=== PATIENT | female | born 1970 | race Caucasian/White ===

== ENCOUNTER 2022-02-26 11:50 | Outpatient (CLI) | payer MEDICAID, SELFPAY ==
[2022-02-26 15:59] LABS: Thyroid Stimulating Hormone* < 0.015 uIU/mL (0.270-4.20)
[2022-02-26 16:02] LABS: Vitamin B12* 525 pg/mL (243-894)
[2022-02-27 08:52] LABS: Folate, Serum > 22.3 ng/mL (>=5.9)
[2022-02-27 09:54] LABS: Free T3 3.8 pg/mL (2.5-4.3)
== END 2022-02-26 11:51 | disposition home or self-care (01) ==
PROVIDERS: PCP Family Medicine
DX: D49.6 Neoplasm of unspecified behavior of brain (principal); E05.90 Thyrotoxicosis, unspecified without thyrotoxic crisis or storm; R47.01 Aphasia
CPT/HCPCS: 82607; 82746; 84439; 84443; 84481; 85025

== ENCOUNTER 2022-03-04 19:04 | Outpatient (REF) | payer MEDICAID, SELFPAY ==
[2022-03-04 19:39] LABS: Eosinophils Percent Auto 2.5 % (0.0-7.0); Hematocrit 38.1 % (33.0-51.0); Hemoglobin* 12.3 gm/dL (12.0-16.0); Lymphocytes Percent Auto 32.8 % (20-44); Mean Corpuscular HGB Conc 32 gm/dL (32-36); Mean Corpuscular Hemoglobin 29 pg (26-34); Mean Corpuscular Volume 88 fL (80-100); Monocytes Percent Auto 7.8 % (0.0-11.0); Neutrophils Percent Auto 55.9 % (42.0-72.0); Platelet Count* 346 K/uL (140-440); RDW Coefficient of Variation % 13.1 % (11.5-15.5); Red Blood Count 4.32 m/uL (4.00-5.20)
[2022-03-04 19:47] LABS: Slide Review Reflex No
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
--- OUTSIDE RECORDS SUMMARY | 2022-03-12 14:29 | XMS_ITS | Encounter Summary ---
:1970 Author Organization [facility] Address [address] [place] [address] Care Team Providers Name Role Phone Unavailable Primary Care Provider Unavailable Reason for Referral Outpatient (Routine) - Closed Specialty Diagnoses / Procedures Referred By Contact Refer red To Contact Social Work Diagnoses Malignant Neoplasm Of Brain (HCC) Stephanie Gleason M.D. [address] [phone] Referral ID Status Reason Start Date Expiration Date Visits Requ ested Visits Authorized [id number] Closed 02/27/2022 02/27/2023 1 1 Scheduling Instructions Schedule with Belia Amezquita tomorrow. Thanks! Reason for Visit Outpatient (Routine) - Closed Specialty Diagnoses / Procedures Referred By Contact Refer red To Contact Social Work Diagnoses Malignant Neoplasm Of Brain (HCC) Stephanie Gleason M.D. [address] [phone] Referral ID Status Reason Start Date Expiration Date Visits Requ ested Visits Authorized [id number] Closed 02/27/2022 02/27/2023 1 1 Encounter Details Date Type Department Care Team Description 02/28/2022 Hospital Encounter Department of Luis Armando Gleason M.D. [address] [place] [phone] Malignant Neoplasm Radiation Oncology Belia Amezquita L.I.C.S.W., M.S.W. 200 [place] [phone] Of Brain (HCC) in [place], [place] 200 [place] [address] Social History Tobacco Use Types Packs/Day Years [...] or relatives? How often do you attend gnosticist or More than 4 times per year 01/07/2022 church services? Do you belong to any clubs or No 01/07/2022 organizations such as gnosticist groups, unions, fraternal or athletic groups, or [...] place to sleep or slept in a senior care (including now)? Education Answer Date Recorded What is the highest level of school Master's degree (e.g., M A, MS, 01/07/2022 you have completed or the highest Maulik, MEd, GAS EXAMINER, 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 Sex Assigned at Date Recorded Female 01/07/2022 11:11 AM CDT documented as of this encounter Progress Notes Belia Amezquita L.I.C.S.W., M.S.W. - 02/28/2022 9:00 AM CDT Social Work completed a phone call to the patient to talk with her about her insurance and additional financial resources that would assist in decreasing financial toxicity. The patient confirm she was able to get medical assistance in place as her primary insurance as of 02/22/2022. She reports [facility] social workers will be discussing today if this effective date will go back 3 months and assist with additional medical bills back to November. Discussion took place about past medical care received another medical institutions. The patient reflects she received care in up to 3 additional institutions and recommendations were made to contact those institutions and provide them her medical assistance insurance number for Re coding and the billing and hopes to decrease financial toxicity and burden. Discussion took place about communication with [facility] to assist with navigating benefits forout of [facility] travel and appointments and benefits that come with her new insurance including mileage reimbursement, meal reimbursement, and lodging benefits. Social work also discussed the potential for transportation benefits if patient is unable to drive. Patient reflects and discusses current vision impairment and obstacles. She reports she is having additional appointments added to her scheduledue to the change in her TSH level and her vision. She admits to feeling overwhelmed and has assistance from a partner and her mother through formal resources and caregiving support. She is working with occupational therapy to assist with her vision. She would like to have social work send contact information via portal for future communication and contact. Social Work communicated updates with primary radiation Oncology team and social Work. Care coordination will be ongoing. documented in this encounter Plan of Treatment Upcoming Encounters Date Type Specialty Care Team Description 03/12/2022 Appointment Radiation Oncology Stephanie Gleason M.D. [address] [place] [phone] 03/12/2022 Appointment Radiation Oncology Stephanie Gleason M.D. [address] [place] [phone] 03/13/2022 Appointment Radiation Oncology Stephanie Gleason M.D. [address] [place] [phone] 03/14/2022 Appointment Radiation Oncology Stephanie Gleason M.D. [address] [place] [phone] 03/25/2022 Ancillary Procedure Ophthalmology Chas Shin M.D. [address] [place] [phone] 03/25/2022 Ancillary Procedure Ophthalmology 03/25/2022 Ancillary Procedure Ophthalmology Chas Shin M.D. [address] [place] [phone] 03/26/2022 Ancillary Procedure Ophthalmology Rebeca Valle, Tu.A.-C., M.S. [address] [place] [phone] 03/26/2022 Comprehensive Visit Ophthalmology Chas Shin M.D. [address] [place] [phone] 03/29/2022 Comprehensive Visit Endocrinology Farzana Allen M.D. [address] [place] [phone] 04/04/2022 Appointment Radiology Christina Tai P.A.-C., M.S. [address] [place] [phone] 04/04/2022 Office Visit Oncology Vini Maki M.D., Ph.D. [address] [place] [phone] 04/04/2022 Office Visit Neurological Surgery Charles Ivey M.D., Ph.D. [address] [place] [address] [phone] 05/03/2022 Comprehensive Visit Clinical Genomics Sanya Mehta M.D. [address] [place] [phone] 05/06/2022 Clinical Communication Admitting/Central Scheduling 05/09/2022 Office Visit Oncology Farzana Allen M.D. [address] [place] [phone] Scheduled Referrals Name Type Priority Associated Order Schedule Diagnoses Social Work - Outpatient Referral Routine Malignant Neoplasm O nce for 1 General consult Of Brain (HCC) Occurrence s starting (clinic) 02/28/2022 unti l 02/28/2022 documented as of this encounter Visit Diagnoses Diagnosis Malignant Neoplasm Of Brain (HCC) documented in this encounter
--- OUTSIDE RECORDS SUMMARY | 2022-03-12 14:29 | XMS_ITS | Encounter Summary ---
:1970 Author Organization [facility] Address [address] [place] [address] Care Team Providers Name Role Phone Unavailable Primary Care Provider Unavailable Reason for Visit Radiation Therapy (Routine) - Authorized Specialty Diagnoses / Procedures Referred By Contact Refer red To Contact Diagnoses Malignant Neoplasm Of Brain (HCC) Stephanie Gleason M.D. [facility] Radiation Oncology Procedures Prior Auth Rad Tx [place] [facility] [address] [place] [phone] [place] [address] Referral ID Status Reason Start Date Expiration Date Visits V isits Requested Authorized [id number] Authorized 01/31/2022 12/31/2022 30 30 Encounter Details Date Type Department Care Team Description 03/04/2022 Hospital Encounter Department of Radiation Jacquelyn Gleason I., [place] [address] [facility] [address] [place] [phone] Social History Tobacco Use Types Packs/Day Years [...] or relatives? How often do you attend mu-ism or More than 4 times per year 01/07/2022 scientology services? Do you belong to any clubs or No 01/07/2022 organizations such as mu-ism groups, unions, fraternal or athletic groups, or [...] place to sleep or slept in a long term (including now)? Education Answer Date Recorded What is the highest level of school Master's degree (e.g., [address], MS, 01/07/2022 you have completed or the highest Maulik, MEd, LITIGATION ASSISTANT, 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 Sex Assigned at Date Recorded Female 01/07/2022 11:11 AM CDT documented as of this encounter Plan of Treatment Upcoming Encounters Date Type Specialty Care Team Description 03/12/2022 Appointment Radiation Oncology Stephanie Gleason M.D. 200 [place] [phone] 03/12/2022 Appointment Radiation Oncology Stephanie Gleason M.D. [address] [place] [phone] 03/13/2022 Appointment Radiation Oncology Stephanie Gleason M.D. [address] [place] [phone] 03/14/2022 Appointment Radiation Oncology Stephanie Gleason M.D. [address] [place] [phone] 03/25/2022 Ancillary Procedure Ophthalmology Chas Shin M.D. [address] [place] [phone] 03/25/2022 Ancillary Procedure Ophthalmology 03/25/2022 Ancillary Procedure Ophthalmology Chas Shin M.D. [address] [place] [phone] 03/26/2022 Ancillary Procedure Ophthalmology Rebeca Valle P.A.-Rusty., M.S. [address] [place] [phone] 03/26/2022 Comprehensive Visit Ophthalmology Chas Shin M.D. [address] [place] [address] [phone] 03/29/2022 Comprehensive Visit Endocrinology Farzana Allen M.D. [address] [place] [phone] 04/04/2022 Appointment Radiology Christina Tai P.A.-Rusty., M.S. [address] [place] [phone] 04/04/2022 Office Visit Oncology Vini Maki M.D., Ph.D. [address] [place] [phone] 04/04/2022 Office Visit Neurological Surgery Charles Ivey M.D., Ph.D. [address] [place] [phone] 05/03/2022 Comprehensive Visit Clinical Genomics Sanya Mehta M.D. [address] [place] [phone] 05/06/2022 Clinical Communication Admitting/Central Scheduling 05/09/2022 Office Visit Oncology Farzana Allen M.D. [address] [place] [phone] documented as of this encounter Visit Diagnoses Not on filedocumented in this encounter
--- OUTSIDE RECORDS SUMMARY | 2022-03-12 14:29 | XMS_ITS | Encounter Summary ---
:1970 Author Organization [facility] Address [address] [place] [address] Care Team Providers Name Role Phone Unavailable Primary Care Provider Unavailable Encounter Details Date Type Department Care Team Description 02/28/2022 Specialty Pharmacy [facility] Carmen Black, Malignant Neoplasm [address] Pharm.D., R.P h. Of Brain (HCC) [address] [facility] (Primary Dx) [place] [phone] Social History Tobacco Use Types Packs/Day Years [...] or relatives? How often do you attend jewish or More than 4 times per year 01/07/2022 hoahaoism services? Do you belong to any clubs or No 01/07/2022 organizations such as jewish groups, unions, fraternal or athletic groups, or [...] place to sleep or slept in a prison (including now)? Education Answer Date Recorded What is the highest level of school Master's degree (e.g., M A, MS, 01/07/2022 you have completed or the highest Maulik, MEd, MANAGER UNDERWRITING, 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 Sex Assigned at Date Recorded Female 01/07/2022 11:11 AM CDT documented as of this encounter Miscellaneous Notes Telephone Encounter - Carmen Black, Pharm.D., R.Ph. - 02/28/2022 5:09 PM CDT SUBJECTIVE REASON FOR VISIT Patient counseling and education, via telephone, for new hematology/oncology medication therapy and establishing medication reassessment timeline. HISTORY OF PRESENT ILLNESS Ms. Mia Richardson is a 51 y.o. female, who is followed by the specialty pharmacy service for Temozolomide for glioblastoma. I spoke with patient via phone. Patient has been on Temozolomide prior but had interruption in therapy due to insurance and decreased cell counts. Reviewed patient's allergies. Allergies Allergen Reactions ??? Adhesive Tape-Silicones Itching ??? Lactose Rash Intolerance Patient reports she has an allergy to milk-related compounds. An updated medication history was obtained from the patient. Noted discrepancies from patient's medication record include the following: -DENIES taking gabapentin -DENIES taking multivitamin -DENIES taking aspirin at this time, as well as vitamin B complex and prochlorperazine Patient baseline rating for quality of life: unable to obtain. OBJECTIVE Lab Results Component Value Date CREATININE 0.7 01/28/2022 ASSESSMENT / PLAN 1. Medication counseling I counseled the patient via phone. Education related to medication: Temozolomide ??? Proper use: we discussed the patient???s dose and the importance of taking it on an empty stomach and/or at bedtime to reduce the chance of nausea/vomiting. Assessed if patient has an anti-nausea medications available to them and when to take, and if PCP prophylaxis is needed. Do not repeat dose if vomiting occurs after dose is administered ??? Timely administration/intake: suggestions to improve adherence- smartphone applications/calendar. ??? Storage: room temperature, no special considerations. ??? Side effects: Including, but not limited to: Nausea, vomiting, constipation, fatigue, headache, hair thinning/loss. ??? Advised patient that other warnings/ safety precautions exist: (decreased blood counts, liver toxicity, convulsions, secondary cancers and a type of pneumonia. Capsules should not be opened. If capsules are opened or damaged, precautions should be taken to avoid inhalation or contact with skin or mucous membranes. ) ??? Lifestyle and self-management skills/ Tips to prevent adverse drug reactions: Report infections for early management including a temperature of 100.4F or greater. Avoid the use of aspirin or NSAIDs particularly if low platelets. Keep lab appointments. Planned rest times and exercise may help to combat fatigue. ??? Interactions (drug/food interactions): Drug interactions referenced in #2 below. Avoid live vaccines. Food: Take on an empty stomach and/or at bedtime to reduce the chance of nausea/vomiting. ??? Contraindications/ considerations: This medication may cause harm. Women who canbecome should use effective contraception while on this medication and for 6 months after stopping. Men with a partner that may become should use effective contraception while on this medication and for 3 months after the last temozolomide dose. May impair male fertility. ??? Educational resource/decision support tools: Printed medication materials included with the prescription. Also see [facility]. Patient/caregiver counseling was abreviated because the patient has been on this medication for sometime already (via study or other pharmacy). The above educational information available at patient/caregiver request. They were advised to contact the prescriber concerning symptoms or side effects as m entioned above. The importance of adherence to the treatment plan was emphasized in regard to success of therapy. Allergy, past sensitivity, medication and health history considered at veterans' counselor (renal function if available). To optimize outcomes, patient assessed for the need of other possible supportive therapies and informed of importance of proper monitoring and future reassessment. The patient/caregiver's prior education on this new therapy and disease specific knowledge were assessed with counseling and education tailored to this level of understanding. Tapia concerns and questions were addressed. Patient specific considerations/desires:None noted at this time. Education done via phone and printed medication materials included with the prescription. The patient/caregiver was encouraged to ask questions or to call the specialty pharmacy with questions they mayhave after reviewing printed material. Specialty pharmacy contact information and disposal information provided in the patient 'Welcome Packet'. No social, environmental, functional or cognitive barriers are apparent. Patient is eligible for service through [facility]. 2. Potential drug-drug interactions No clinically significant drug interactions were identified with Temozolomide. Specialty medication(s) reconciled and good triston attempt made in obtaining a complete medication list (via dispensing program). Patient encouraged to report any new or change of medications (prescribed/over the counter/supplements) to assist in maintaining this list for accuracy. 3. Goals of therapy: Promote medication adherence. Evaluate other newly prescribed therapies as needed for drug-drug and drug- disease appropriateness. Mitigate, treat or prevent side effects. The patient has decided to use the [facility]. This patient meets the definition of *HIGH RISK- required BSA dose review and required counseling for any temozolomide dose changes*, by [facility] definition and has been flagged as such in the dispensing system. Follow-up: 4 week(s) Carmen Black Pharm.D., R.Ph. documented in this encounter Plan of Treatment Upcoming Encounters Date Type Specialty Care Team Description 03/12/2022 Appointment Radiation Oncology Stephanie Gleason M.D. [address] [place] [address] 03/12/2022 Appointment Radiation Oncology Stephanie Gleason M.D. [address] [place] [phone] 03/13/2022 Appointment Radiation Oncology Stephanie Gleason M.D. [address] [place] [phone] 03/14/2022 Appointment Radiation Oncology Stephanie Gleason M.D. [address] [place] [phone] 03/25/2022 Ancillary Procedure Ophthalmology Chas Shin M.D. [address] [place] [phone] 03/25/2022 Ancillary Procedure Ophthalmology 03/25/2022 Ancillary Procedure Ophthalmology Chas Shin M.D. [address] [place] [phone] 03/26/2022 Ancillary Procedure Ophthalmology Rebeca Valle, Tu.A.-C., M.S. [address] [place] [phone] 03/26/2022 Comprehensive Visit Ophthalmology Chas Shin M.D. [address] [place] [phone] 03/29/2022 Comprehensive Visit Endocrinology Farzana Allen M.D. [address] [place] [phone] 04/04/2022 Appointment Radiology Christina Tai, P.A.-C., M.S. [address] [place] [phone] 04/04/2022 Office Visit Oncology Vini Maki M.D., Ph.D. [address] [place] [phone] 04/04/2022 Office Visit Neurological Surgery Charles Ivey M.D., Ph.D. [address] [place] [phone] 05/03/2022 Comprehensive Visit Clinical Genomics Sanya Mehta M.D. [address] [place] [phone] 05/06/2022 Clinical Communication Admitting/Central Scheduling 05/09/2022 Office Visit Oncology Farzana Allen M.D. [address] [place] [phone] documented as of this encounter Visit Diagnoses Diagnosis Malignant Neoplasm Of Brain (HCC) - Prim uyen documented in this encounter
--- OUTSIDE RECORDS SUMMARY | 2022-03-12 14:29 | XMS_ITS | Encounter Summary ---
:1970 Author Organization [facility] Address [address] [place] [address] Care Team Providers Name Role Phone Unavailable Primary Care Provider Unavailable Reason for Visit Radiation Therapy (Routine) - Authorized Specialty Diagnoses / Procedures Referred By Contact Refer red To Contact Diagnoses Malignant Neoplasm Of Brain (HCC) Stephanie Gleason M.D. [facility] Radiation Oncology Procedures Prior Auth Rad Tx [place] IMRT COMPLEX [address] [place] [phone] [address] [facility] [place] [address] Referral ID Status Reason Start Date Expiration Date Visits V isits Requested Authorized [id number] Authorized 01/31/2022 12/31/2022 30 30 Encounter Details Date Type Department Care Team Description 03/01/2022 Hospital Encounter Department of Radiation Jacquelyn Gleason I., Oncology in [place] [address] [facility] [address] [place] [phone] Social History Tobacco Use Types Packs/Day Years [...] or relatives? How often do you attend religious or More than 4 times per year 01/07/2022 amish services? Do you belong to any clubs or No 01/07/2022 organizations such as religious groups, unions, fraternal or athletic groups, or [...] have completed or the highest Maulik, MEd, MOTTLER OPERATOR, 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 Sex Assigned at Date Recorded Female 01/07/2022 11:11 AM CDT documented as of this encounter Plan of Treatment Upcoming Encounters Date Type Specialty Care Team Description 03/12/2022 Appointment Radiation Oncology Stephanie Gleason M.D. 200 [place] [phone] 03/12/2022 Appointment Radiation Oncology Stephanie Gleason M.D. [address] [place] [phone] 03/13/2022 Appointment Radiation Oncology Stephanie Gleason M.D. [address] [place] [phone] 03/14/2022 Appointment Radiation Oncology Stephanie Gleason M.D. [address] [place] [phone] 03/25/2022 Ancillary Procedure Ophthalmology Chas Shin M.D. [address] [place] [phone] 03/25/2022 Ancillary Procedure Ophthalmology 03/25/2022 Ancillary Procedure Ophthalmology Chas Shin M.D. [address] [place] [phone] 03/26/2022 Ancillary Procedure Ophthalmology Rebeca Valle P.A.-Rusty., M.S. [address] [place] [phone] 03/26/2022 Comprehensive Visit Ophthalmology Chas Shin M.D. [address] [place] [phone] 03/29/2022 Comprehensive Visit Endocrinology Farzana Allen M.D. [address] [place] [phone] 04/04/2022 Appointment Radiology Christina Tai P.A.-Rusty., M.S. [address] [place] [phone] 04/04/2022 Office Visit Oncology Vini Maki M.D., Ph.D. [address] [place] [phone] 04/04/2022 Office Visit Neurological Surgery Charles Ivey M.D., Ph.D. [address] [place] [phone] 05/03/2022 Comprehensive Visit Clinical Genomics Sanya Mehta M.D. [address] [place] [phone] 05/06/2022 Clinical Communication Admitting/Central Scheduling 05/09/2022 Office Visit Oncology Farzana Allen M.D. [address] [place] [phone] documented as of this encounter Visit Diagnoses Not on filedocumented in this encounter
--- OUTSIDE RECORDS SUMMARY | 2022-03-12 14:29 | XMS_ITS | Clinical Summary ---
:1970 Author Organization [facility] Address [address] [place] [address] Care Team Providers Name Role Phone Unavailable Primary Care Provider Unavailable Source Comments Patient records contain information from all sites at [facility]. For routine questions regarding patient records, call [phone] during business hours, M-F 8:00 AM - 5:00 PM Central Time. Record requests for emergency care only can be directed to [phone] at any time.[facility] Allergies Active Allergy Reactions Severity Noted Date Comments Adhesive Tape-Silicones Itching Low 11/30/2021 Milk Containing Products Rash 02/28/2022 Medications Medication Sig Dispensed Refills Start Date End Date Status VITAMIN B COMPLEX ORAL Take 1 tablet by 0 Active mouth daily. acetaminophen (TYLENOL) Take 2 tablets 0 01/24/2022 Active 500 mg tablet (1,000 mg total) by mouth every 6 (six) hours as needed for moderate pain or score 4-6 of 10, mild pain or score 1-3 of 10, headaches or fever. levETIRAcetam (KEPPRA) Take 1 tablet 28 tablet 0 01/24/2022 Active 1,000 mg tablet (1,000 mg total) by mouth 2 (two) times a day. prochlorperazine Take 1 tablet 30 tablet 3 01/29/2022 01/30/20 Active (COMPAZINE) 10 mg (10 mg total) by tabletIndications: mouth every 6 Malignant Neoplasm Of (six) hours as Brain (HCC) needed for nausea or vomiting (unrelieved by ondansetron). Additional Information Patient not taking. Reported on 02/28/2022 sulfamethoxazole-trimethoprim Take 1 tablet 90 3 202101/29/2023 Active (BACTRIM,SEPTRA) 400-80 mg per by mouth daily. tablet tabletIndications: Malignant For Neoplasm Of Brain (HCC) prophylaxis. Continue until recovery of lymphopenia after completion of temozolomide. ondansetron (ZOFRAN) 8 mg Take 1 tablet 42 0 01/29/2022 03/12/2022 Active tabletIndications: Malignant (8 mg total) by tablet Neoplasm Of Brain (HCC) mouth daily. Take 30 to 60 minutes before Temozolomide on Days 1 to 42. aspirin 325 mg tablet Take 325 mg by 0 Active mouth every 6 (six) hours as needed for pain. temozolomide (TEMODAR) 140 mg Take 1 capsule 14 0 02/2804/11/2022 Active capsuleIndications: Malignant (140 mg total) capsule Neoplasm Of Brain (HCC) by mouth daily. Take 1 hr before radiation Mon to Fri and in the morning on Sat and Sun. On empty stomach. ondansetron (ZOFRAN) 8 mg Take 1 tablet 30 3 03/01/2022 03/01/2023 Active tabletIndications: Malignant (8 mg total) by tablet Neoplasm Of Brain (HCC) mouth every 8 (eight) hours as needed for nausea or vomiting. Additional Information Patient not taking. Reported on 03/05/2022 25/iron Take 1 tablet by 0 2021 Discontinued fum/folic/dha mouth daily. (No n-compliance) (-1 ORAL) TURMERIC ORAL Take 1 capsule by 0 02/29/20 22 Discontinued (Therapy mouth daily. complet ed) methocarbamoL Take 1 tablet 0 01/1701/24/2022 D iscontinued (ROBAXIN) 750 mg (750 mg total) by tablet mouth every 6 (six) hours as needed for muscle spasms. ondansetron Take 1 tablet (8 30 tablet 3 01/2903/01/2022 Discontinued (ZOFRAN) 8 mg mg total) by (Re order) tabletIndications: mouth every 8 Malignant Neoplasm (eight) hours as Of Brain (HCC) needed for nausea or vomiting. temozolomide Take 1 capsule 42 capsule 0 01/3102/28/2022 Discontinued (TEMODAR) 20 mg (20 mg total) by (Reorder) capsuleIndications mouth daily with : Malignant 1 other Neoplasm Of Brain temozolomide (HCC) prescription for 160 mg total. Take 1 hr before radiation Mon to Fri and in the morning on Sat and Sun. On empty stomach. temozolomide Take 1 capsule 42 capsule 0 01/3102/28/2022 Discontinued (TEMODAR) 140 mg (140 mg total) by (Reorder) capsuleIndications mouth daily with : Malignant 1 other Neoplasm Of Brain temozolomide (HCC) prescription for 160 mg total. Take 1 hr before radiation Mon to Fri and in the morning on Sat and Sun. On empty stomach. gabapentin Take 2 capsules 12 capsule 0 02/0602/28/2022 D iscontinued (Therapy (NEURONTIN) 100 mg (200 mg total) completed) capsule mouth at bedtime for 3 days, THEN 1 capsule (100 mg total) at bedtime for 6 days. 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 Testing in 2021 from [facility] lab. As of 2021, there is no confirmed relationship bet ween pathogenic CHEK2 mutations and glio blastoma. Malignant Neoplasm Of Brain 12/31/2021 Encounters Date Type Specialty Care Team Description 03/11/2022 Hospital Encounter Radiation Oncology Stephanie Gleason M.D. 03/08/2022 Hospital Encounter Radiation Oncology Stephanie Gleason M.D. 03/08/2022 Orders Only Clinical Genomics Alicia Resendiz, Susceptibility To M.S., CGC Other Malignant Neoplasm (Prima ry Dx) 03/07/2022 Virtual Visit Oncology Rebeca Valle N eoplasm Of Kobi Amado, Brain (HCC) M.S. 03/07/2022 Hospital Encounter Radiation Oncology Stephanie Gleason M.D. 03/07/2022 Clinical Oncology Rebeca Valle Communication Kobi Amado, M.S. 03/06/2022 Hospital Encounter Radiation Oncology Stephanie Gleason M.D. 03/06/2022 Documentation Clinical Genomics Martín, Attempt t o Magy Liz, Patient M.S., [facility] 03/05/2022 Hospital Encounter Radiation Oncology Stephanie Gleason Malignant Neoplasm Of I., M.D. Brain (HCC) 03/05/2022 Hospital Encounter Radiation Oncology Victorino Stephanie Sebastian Marcelino 03/05/2022 Clinical Admitting/Central Intake Ass essment Communication Scheduling 03/04/2022 Hospital Encounter Radiation Oncology Cliff Sumner, Malignant Neoplasm Of M.D., M.S. Brain (HCC) Yomaira Ibarra L.G.S.WSanjuanita 03/04/2022 Hospital Encounter Radiation Oncology Victorino Stephanie Sebastian Marcelino 03/01/2022 Hospital Encounter Radiation Oncology Victorino Stephanie Sebastian Marcelino 02/28/2022 Hospital Encounter Radiation Oncology Victorino Stephanie Sebastian Marcelino 02/28/2022 Hospital Encounter Radiation Oncology Victorino Stephanie Malignant Neoplasm Of I., M.D. Brain (HCC) Belia Amezquita L.I.C.S.W., M.S.W. 02/28/2022 Specialty Pharmacy Pharmacy Carmen Black, Malign ant Neoplasm Of Pharm.D., R.Ph. Brain (HCC) (Primary Dx) 02/27/2022 Hospital Encounter Radiation Oncology Victorino Stephaniedomingo Marcelino M.D. 02/27/2022 Orders Only Radiation Oncology Emilee Gleasona Malign ant Neoplasm Of I., M.D. Brain (HCC) (Pr imary Dx) 02/27/2022 Documentation Clinical Genomics Martín, Genetic T dewey Post S, Results M.S., CGC 02/27/2022 Orders Only Farzana Wilkerson Hyperthyroidmary [facility] Pillo, MEleazar Subclinical (Pr imary Dx) 02/26/2022 Hospital Encounter Radiation Oncology Emilee Gleasona Malignant Neoplasm Of I., M.D. Brain (HCC) 02/26/2022 Hospital Encounter Radiation Oncology Victoirno Stephanie Sebastian Marcelino 02/26/2022 Clinical Oncology Stacy Flanagan, 02/26/22 labs Communication R.N. 02/26/2022 Clinical Oncology Stacy Flanagan, Med Refill Communication R.N. 02/26/2022 Clinical Oncology Stacy Flanagan, 02/26/22 labs Communication R.N. 02/22/2022 Hospital Encounter Radiation Oncology Stephanie Gleason M.D. 02/22/2022 Orders Only Oncology Tiffany Farzana Astrocytoma ( HCC) (Primary Dx); Sebastian Ferro Hyperthyroidism 02/21/2022 Hospital Encounter Radiation Oncology Stephanie Gleason M.D. 02/21/2022 Hospital Encounter Radiation Oncology Volodymyr Yung Malignant Neoplasm Of Sebastian De La Cruz Brain (HCC) 02/20/2022 Virtual Visit Oncology Rebeca Valle Astrocytoma (HCC) (Primary Dx); Kobi Amado, Malignant Neopl asm Of Brain (HCC) M.SSanjuanita 02/20/2022 Hospital Encounter Radiation Oncology Stephanie Gleason M.D. 02/20/2022 Telemedicine Oncology Karthikeyan Cedeno, Malignant Sarthak plasm Of Brain (HCC) (Primary Dx); M.Adrian Counseling Phase Of Life Problem Hamida Ram L.G.S.W., M.S.WSanjuanita 02/19/2022 Telemedicine Oncology Karthikeyan Cedeno, Canceled (Pro vider: M.Adrian Request) Hamida Ram L.G.S.W., M.S.WSanjuanita 02/19/2022 Hospital Encounter Radiation Oncology Stephanie Gleason M.D. 02/19/2022 Telemedicine Oncology Tiffany Farzana Astrocytoma ( HCC) Sebastian Ferro Madelynn A, M.S., BLAIR, YASIR 02/19/2022 Orders Only Pharmacy Mikki Rodriguez 02/18/2022 Hospital Encounter Radiation Oncology Stephanie Gleason M.D. 02/15/2022 Hospital Encounter Radiation Oncology Stephanie Gleason M.D. 02/15/2022 Orders Only Neurology Karthikeyan Cedeno M.D. 02/14/2022 Hospital Encounter Radiation Oncology Stephanie Gleason M.D. 02/14/2022 Clinical Oncology Arya, Labs Only Communication Olivia De La Cruz D.N.P., M.A., R.N., HN- 02/13/2022 Hospital Encounter Radiation Oncology Stephanie Gleason M.D. 02/13/2022 Clinical Oncology Tori Rebecashira Block ques tion Communication Kobi Amado, M.S. 02/13/2022 Clinical Oncology Alec Latanya labs only 02/13; Communication Frankie Ferro, O.C.N. 01/28/22 labs 02/12/2022 Telemedicine Oncology Rebeca Valle Tumor Brain (HCC) Kobi Amado, M.S. Hamida Ram L.G.S.Yasmeen., M.S.W. 02/12/2022 Hospital Encounter Radiation Oncology Stephanie Gleason M.D. 02/12/2022 Hospital Encounter Radiation Oncology Stephanie Gleason Malignant Neoplasm Of Sebastian Marcelino Brain (HCC) 02/12/2022 Clinical Oncology Farzana Allen Communication Sebastian Ferro 02/11/2022 Hospital Encounter Radiation Oncology Stephanie Gleason M.D. 02/08/2022 Hospital Encounter Radiation Oncology Stephanie Gleason M.D. 02/08/2022 Orders Only Oncology Alec Latanya Astrocytoma (H CC) Pillo RGiovani., O.C.N. (Primary Dx) 02/07/2022 Comprehensive Visit Oncology Farzana Allen Astroc ytoma (HCC) Sebastian Ferro 02/07/2022 Hospital Encounter Radiation Oncology Stephanie Gleason Malignant Neoplasm Of ISanjuanita MEleazar Brain (HCC) Eileen Hopkins RAquilino 02/07/2022 Hospital Encounter Radiation Oncology Stephanie Gleason M.D. 02/06/2022 Hospital Encounter Radiation Oncology Stephanie Gleason M.D. 02/05/2022 Hospital Encounter Radiation Oncology Stephanie Gleason Malignant Neoplasm Of - Don MarcelinoD. Brain (HCC) 02/06/2022 02/05/2022 Hospital Encounter Radiation Oncology Victorino Stephaniedomingo Marcelino M.D. 02/04/2022 Hospital Encounter Radiation Oncology Victorino Stephanieelizabeth Marcelino M.D. 02/02/2022 Clinical Oncology Jose Luis, Evans Ojeda M.D. 02/01/2022 Hospital Encounter Laboratory Medicine Sanya Mehta Malignant Neoplasm Of Brain (HCC); Sebastian Lozada Family History Carrier Genetic Disease 02/01/2022 Hospital Encounter Radiation Oncology Victorino Stephaniedomingo Marcelino M.D. 02/01/2022 Clinical Clinical Genomics Sweetie Resendiz: C K Communication Sejal Liz M.S., [facility] 01/31/2022 Telemedicine Clinical Genomics Cliff Sumner, Family History Carrier Genetic Disease (Primary Dx); Sebastian, M.S. Malignant Neoplasm Of Brain (HCC) Sejal Resendiz MSierra, [facility] 01/31/2022 Hospital Encounter Radiation Oncology Victorino Stephaniedomingo Marcelino M.D. 01/31/2022 Clinical [facility]cology [facility] D, R.N., O.C.N. (temozolomi de, ondansetron ) 01/31/2022 Clinical Ophthalmology Kip, Jessica; Communication Chas Ferro M.D. Pre-visit Watson ting Orders 01/30/2022 Clinical Oncology Rebeca Valle Lab Order Communication Kobi Amado, M.S. Olivia Koenig D.N.P., M.A., R.N., HNB-BC 01/30/2022 Virtual Visit Oncology Rebeca Valle Malignant N eoplasm Of Brain (HCC) (Primary Dx); Kobi Amado, Blurred Vision M.S. 01/30/2022 Orders Only Pharmacy Kp Butler 01/30/2022 Clinical Radiation Oncology Cliff Sumner, Communication MEleazar, M.S. 01/29/2022 Clinical Oncology Rebeca Valle Communication Kobi Amado, M.S. 01/29/2022 Orders Only Oncology Rebeca Valle Malignant Ne oplasm Of J, P.A.-C., Brain (HCC) (Pr imary M.S. Dx) 01/28/2022 Ancillary Procedure Radiology Cliff Sumner, Malig nant Neoplasm Of M.D., M.S. Brain (HCC) 01/28/2022 Hospital Encounter Radiation Oncology Stephanie Gleason Malignant Neoplasm Of I., M.D. Brain (HCC) 01/28/2022 Hospital Encounter Radiation Oncology Stephanie Gleason Malignant Neoplasm Of I., M.D. Brain (HCC) 01/28/2022 Orders Only Radiation Oncology Cliff Sumner, Malign ant Neoplasm Of M.D., M.S. Brain (HCC) (Pr imary Dx) 01/28/2022 Clinical Neurology Karthikeyan Cedeno, Treatment Communication M.D. Questions/Conc erns 01/25/2022 Clinical Radiation Oncology Stephanie Gleason Communication Sebastian Marcelino 01/22/2022 Clinical Radiation Oncology Cliff Sumner, Communication M.D., M.S. 01/22/2022 Orders Only Radiation Oncology Norma Diamond E, Malign ant Neoplasm Of P.A.-C., M.S. Brain (HCC) (P rimary Dx) 01/22/2022 Clinical Oncology Latanya Michael Treatment Plan Communication D, R.N., O.C.N. 01/22/2022 Clinical Neurological Charles Ivey Communication Communication Surgery Sebastian Ojeda, Ph.D. 01/22/2022 Clinical Radiation Oncology Stephanie Gleason Communication Sebastian Marcelino 01/17/2022 Hospital Encounter Bellletya, Tumor Bra in (HCC) (Primary Dx); Yuki De La Vega M.D. Aphasia; 01/25/2022 Francois Gonzalez Deficit Cogni tive Communication; Sebastian Lombardo Abnormal Gait Non Orthopedic; Magali, Decline Functio nal Status; Michael Younger, Unsteadiness No n Orthopedic; Odin., Ph.D. Lack Of Coordin ation; Decline Cogniti ve 01/11/2022 Clinical Acute Care Tai, Post Hospital Communication Christina Henderson, Follow-up P.A.-C., M.S. 01/10/2022 Hospital Encounter Radiology Ivey, Charles Maligna nt Neoplasm Of Sebastian Ojeda, Ph.D. Brain (HCC) 01/10/2022 Anesthesia Event Michael Tanner M.D., M.S. Luda Galindo M.D. 01/10/2022 Hospital Encounter Radiology Ivey, Charles Maligna nt Neoplasm Of Sebastian Ojeda, Ph.D. Brain (HCC) 01/10/2022 Surgery Ivey, Charles Asleep left Sebastian Ojeda, Ph.D. temporopariet al stereotactic craniotomy tumo r resection, spee ch mapping, supine position, intraoperative MRI, BK ultrasound. 01/09/2022 Comprehensive Visit Neurological Ivey, Charles Mass B rain Surgery Sebastian Ojeda, Ph.D. 01/09/2022 Hospital Encounter Neurological Ivey, Charles Tumor B rain (HCC) (Primary Dx); - Surgery Sebastian Ojeda, Ph.D. Malignant Sarthak plasm Of Brain (HCC); 01/17/2022 Change Mental S tatus; Abnormal Gait N on Orthopedic; Concern Patient Cognition Function; Deficit Cogniti ve Communication; Decline Cogniti ve 01/09/2022 Office Visit Oncology Rebeca Valle Malignant Ne oplasm Of Kobi Amado, Brain (HCC) (Pr jackelyn M.S. Dx) 01/09/2022 Hospital Encounter Radiology Evangelist Salinas F, Mass Br ramses Cortes, Ph.D. 01/09/2022 Clinical Oncology Rebeca Valle Communication Kobi Amado, M.S. 01/09/2022 Clinical Oncology Arya, Phone call Communication Olivia De La Cruz D.N.P., M.A., R.N., HN-BC 01/09/2022 Orders Only Oncology Olivia Koenig D.N.P., M.A., R.N., HNB-BC 01/03/2022 Telemedicine Oncology Karthikeyan Cedeno, Astrocytoma ( HCC) Sebastian (Primary Dx) 01/01/2022 Lab Laboratory Medicine Tori, Rebeca Rl cytoma (HCC) Kobi Amado, M.S. 01/01/2022 Hospital Encounter Radiation Oncology VictorinoLuis AntonioStephanie Malignant Neoplasm Of I., M.D. Brain (HCC) (Pr imary Dx) 01/01/2022 Orders Only Neurological Larry, Mass Brain ([facility] Marsha D, Dx) R.N. 12/31/2021 Clinical Oncology Rebeca Valle Pre-visit Te sting Communication Kobi Amado, Orders M.S. 12/31/2021 Orders Only Radiation Oncology Cliff Sumner, Malign ant Neoplasm Of M.D., M.S. Brain (HCC) (Pr imary Dx) 12/26/2021 Clinical Oncology Prescheduling, Pre-schedulin g Communication Provider Questionnaire (New Reg) from Last 3 Months Family History Medical History Relation Name Comments Breast cancer Aunt Maternal Breast cancer Mother Relation Name Status Comments Aunt Alive Mother Social History Tobacco Use Types Packs/Day Years [...] or relatives? How often do you attend baptism or More than 4 times per year 01/07/2022 mormon services? Do you belong to any clubs or No 01/07/2022 organizations such as baptism groups, unions, fraternal or athletic groups, or [...] place to sleep or slept in a longterm (including now)? 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 Sex Assigned at Date Recorded Female 01/07/2022 11:11 AM CDT Last Filed Vital Signs Vital Sign Reading Time Taken Comments Blood Pressure 129/76 03/05/2022 1:28 PM CDT Pulse 69 03/05/2022 1:28 PM CDT Temperature 36.6 ??C (97.8 ??F) 03/05/2022 1:28 PM CDT Respiratory Rate 15 01/25/2022 12:10 PM CDT Oxygen Saturation 98% 01/25/2022 12:10 PM CDT Inhaled Oxygen Concentration - - Weight 91 kg (200 lb 9.9 oz) 03/05/2022 1:28 PM CDT Height 169 cm (5' 6.54) 01/24/2022 9:36 AM CDT Body Mass Index 31.86 01/24/2022 9:36 AM CDT Plan of Treatment Upcoming Encounters Date Type Specialty Care Team Description 03/12/2022 Appointment Radiation Oncology Stephanie Gleason M.D. [address] [place] [address] [phone] 03/12/2022 Appointment Radiation Oncology Stephanie Gleason M.D. [address] [place] [address] [phone] 03/13/2022 Appointment Radiation Oncology Stephanie Gleason M.D. [address] [place] [address] [phone] 03/14/2022 Appointment Radiation Oncology Stephanie Gleason M.D. [address] [place] [phone] 03/25/2022 Ancillary Procedure Ophthalmology Chas Shin M.D. [address] [place] [phone] 03/25/2022 Ancillary Procedure Ophthalmology 03/25/2022 Ancillary Procedure Ophthalmology Chas Shin M.D. [address] [place] [phone] 03/26/2022 Ancillary Procedure Ophthalmology Rebeca Valle P.A.-C., M.S. [address] [place] [phone] 03/26/2022 Comprehensive Visit Ophthalmology Chas Shin M.D. [address] [place] [phone] 03/29/2022 Comprehensive Visit Endocrinology Farzana Allen M.D. [address] [place] [address] [phone] 04/04/2022 Appointment Radiology Christina Tai P.A.Leticia., M.S. [address] [place] [address] [phone] 04/04/2022 Office Visit Oncology Vini Maki M.D., Ph.D. [address] [place] [phone] 04/04/2022 Office Visit Neurological Surgery Charles Ivey M.D., Ph.D. [address] [place] [address] [phone] 05/03/2022 Comprehensive Visit Clinical Genomics Sanya Mehta M.D. [address] [place] [phone] 05/06/2022 Clinical Communication Admitting/Central Scheduling 05/09/2022 Office Visit Oncology Farzana Allen M.D. [address] [place] [phone] Health Maintenance Due Date Last Done Comments CT Colonography 1970 Cervical Cancer Screening 1970 Cologuard 1970 Colonoscopy 1970 Colorectal Cancer Surveillance 1970 HIV Screening 1970 Hepatitis C Screening 1970 Mammogram 1970 Pneumococcal vaccine (0-64 years) 1976 (1 - PCV) Zoster Vaccines (1 of 2) 1989 Hepatitis B Vaccines (3 of 3 - 04/29/2011 03/04/2011, 09/04 3-dose series) Depression Screening (Annual 08/25/2021 PHQ-2) COVID-19 Vaccine (4 - Booster for 10/04/2021 07/04/2021, , Pfizer series) 09/19/2020 Influenza Vaccine (#1) 2022 06/29/2021, 06/11/2020, 06/17/2019, Additional history exists Fasting Glucose for Diabetes 01/22/2025 01/22/2022, 022, Screening 01/12/2022, Additional history exists Fasting Lipid Panel 02/13/2027 02/13/2022, 06/17/2019 DTaP,Tdap,and Td Vaccines (3 - Td 06/23/2030 06/23/2020, , or Tdap) 01/04/2003 Medical Devices Implanted Type Area Hourly Caregiver Device Shelf Model / Identifier Expiration Serial / Date Lot Scrw Ti Mtr Slv 1.55x2.55x4 - [id number] Hardware e.g. De puy Synthes [id number] / Implanted: Qty: 18 on 01/10/2022 by Charles Valdez M.D., Ph.D. at [facility] pins/screws/r / ods Procedures Procedure Name Priority Date/Time Associated Comments Diagnosis ARIA DAILY TREATMENT Routine 03/11/2022 1:08 Res ults for INFORMATION PM CDT this procedure are in the results section. ARIA DAILY TREATMENT Routine 03/08/2022 1:10 Res ults for INFORMATION PM CDT this procedure are in the results section. ARIA DAILY TREATMENT Routine 03/07/2022 1:51 Res ults for INFORMATION PM CDT this procedure are in the results section. ARIA DAILY TREATMENT Routine 03/06/2022 1:13 Res ults for INFORMATION PM CDT this procedure are in the results section. ARIA DAILY TREATMENT Routine 03/05/2022 1:16 Res ults for INFORMATION PM CDT this procedure are in the results section. HEMATOLOGY/ONCOLOGY - Routine 03/04/2022 3:40 Re sults for BLOOD, EXTERNAL LAB PM CDT this pro cedure RESULTS are in the results section. ARIA DAILY TREATMENT Routine 03/04/2022 1:06 Res ults for INFORMATION PM CDT this procedure are in the results section. ARIA DAILY TREATMENT Routine 03/01/2022 1:14 Res ults for INFORMATION PM CDT this procedure are in the results section. ARIA DAILY TREATMENT Routine 02/28/2022 1:07 Res ults for INFORMATION PM CDT this procedure are in the results section. ARIA DAILY TREATMENT Routine 02/27/2022 1:22 Res ults for INFORMATION PM CDT this procedure are in the results section. ARIA DAILY TREATMENT Routine 02/26/2022 1:03 Res ults for INFORMATION PM CDT this procedure are in the results section. HEMATOLOGY/ONCOLOGY - Routine 02/26/2022 11:46 Re sults for BLOOD, EXTERNAL LAB AM CDT this pro cedure RESULTS are in the results section. ARIA DAILY TREATMENT Routine 02/22/2022 1:17 Res ults for INFORMATION PM CDT this procedure are in the results section. ARIA DAILY TREATMENT Routine 02/21/2022 1:35 Res ults for INFORMATION PM CDT this procedure are in the results section. ARIA DAILY TREATMENT Routine 02/20/2022 9:06 Res ults for INFORMATION AM CDT this procedure are in the results section. ARIA DAILY TREATMENT Routine 02/19/2022 1:02 Res ults for INFORMATION PM CDT this procedure are in the results section. ARIA DAILY TREATMENT Routine 02/18/2022 12:58 Res ults for INFORMATION PM CDT this procedure are in the results section. HEMATOLOGY/ONCOLOGY - Routine 02/18/2022 11:12 Re sults for BLOOD, EXTERNAL LAB AM CDT this pro cedure RESULTS are in the results section. ARIA DAILY TREATMENT Routine 02/15/2022 9:35 Res ults for INFORMATION AM CDT this procedure are in the results section. ARIA DAILY TREATMENT Routine 02/14/2022 1:04 Res ults for INFORMATION PM CDT this procedure are in the results section. ARIA DAILY TREATMENT Routine 02/13/2022 1:08 Res ults for INFORMATION PM CDT this procedure are in the results section. HEMATOLOGY/ONCOLOGY - Routine 02/13/2022 9:30 Re sults for BLOOD, EXTERNAL LAB AM CDT this pro cedure RESULTS are in the results section. ARIA DAILY TREATMENT Routine 02/12/2022 8:51 Res ults for INFORMATION AM CDT this procedure are in the results section. ARIA DAILY TREATMENT Routine 02/11/2022 8:25 Res ults for INFORMATION AM CDT this procedure are in the results section. ARIA DAILY TREATMENT Routine 02/08/2022 1:39 Res ults for INFORMATION PM CDT this procedure are in the results section. ARIA DAILY TREATMENT Routine 02/07/2022 9:01 Res ults for INFORMATION AM CDT this procedure are in the results section. ARIA DAILY TREATMENT Routine 02/06/2022 2:50 Res ults for INFORMATION PM CDT this procedure are in the results section. ARIA DAILY TREATMENT Routine 02/05/2022 4:41 Res ults for INFORMATION PM CDT this procedure are in the results section. [facility] MML REFERRAL Routine 02/05/2022 12:00 Result s for TEST 1 AM CDT this procedure are in the results section. [facility]. INVITAE Routine 02/05/2022 12:00 Results fo r CORPORATION AM CDT this procedure are in the results section. MISCELLANEOUS SENT Routine 02/05/2022 12:00 Malignant OUT LAB TEST AM CDT Neoplasm Of Brain (HCC) Family History Carrier Genetic Disease ARIA DAILY TREATMENT Routine 02/04/2022 9:32 Res ults for INFORMATION AM CDT this procedure are in the results section. ARIA DAILY TREATMENT Routine 01/31/2022 10:14 Res ults for INFORMATION AM CDT this procedure are in the results section. [facility] COURSE COMPLETE Routine 01/30/2022 3:44 Res ults for TREATMENT INFORMATION PM CDT this p rocedure are in the results section. INTERPRETATION OF RAD - Routine 01/28/2022 8:21 Malignant Resul ts for OUTSIDE MR HEAD (most inpatients PM CDT Neoplasm Of this pro cedure and all Brain (HCC) are in the outpatients) results section. HEMATOLOGY/ONCOLOGY - Routine 01/28/2022 1:45 Re sults for BLOOD, EXTERNAL LAB PM CDT this pro cedure RESULTS are in the results section. HEMATOLOGY/ONCOLOGY - Routine 01/28/2022 1:45 Re sults for BLOOD, EXTERNAL LAB PM CDT this pro cedure RESULTS are in the results section. OUTSIDE MR NEURO Routine 01/28/2022 1:40 Results for PM CDT this procedure are in the results section. INITIAL RAD ONC Routine 01/28/2022 11:43 Malignant Results for TREATMENT PLANNING CT AM CDT Neoplasm Of this p rocedure SIMULATION Brain (HCC) are in the results section. BASIC METABOLIC Routine 01/22/2022 6:48 Results for PANEL, S/P AM CDT this procedure are in the results section. BASIC METABOLIC Routine 01/18/2022 9:38 Results for PANEL, S/P AM CDT this procedure are in the results section. SODIUM, S/P Timed 01/13/2022 6:16 Results for PM CDT this procedure are in the results section. CT HEAD NECK RAD - Emergent 01/13/2022 3:30 Results f or ANGIOGRAM WITH IV (Fastest; for the PM CDT this procedure CONTRAST most critically are in the ill patients) results section. CT HEAD WITHOUT IV RAD - Emergent 01/13/2022 3:30 Res ults for CONTRAST (Fastest; for the PM CDT this proce dure most critically are in the ill patients) results section. SODIUM, S/P Timed 01/13/2022 12:24 Results for PM CDT this procedure are in the results section. SODIUM, S/P Timed 01/13/2022 6:44 Results for AM CDT this procedure are in the results section. SODIUM, S/P Timed 01/13/2022 12:19 Results for AM CDT this procedure are in the results section. SODIUM, S/P Timed 01/12/2022 4:17 Results for PM CDT this procedure are in the results section. BASIC METABOLIC Routine 01/12/2022 4:35 Results for PANEL, S/P AM CDT this procedure are in the results section. BASIC METABOLIC Routine 01/11/2022 8:54 Results for PANEL, S/P PM CDT this procedure are in the results section. EEG ROUTINE - AWAKE STAT 01/11/2022 1:29 Change Mental Res ults for AND SLEEP PM CDT Status this procedure are in the results section. BASIC METABOLIC STAT 01/11/2022 7:12 Results for PANEL, S/P AM CDT this procedure are in the results section. SODIUM, S/P STAT 01/10/2022 8:14 Results for PM CDT this procedure are in the results section. MR BRAIN WITHOUT AND RAD - Routine 01/10/2022 5:35 Malignant Re sults for WITH IV CONTRAST (most inpatients PM CDT Neoplasm Of this pr ocedure and all Brain (HCC) are in the outpatients) results section. PATIENT STATUS STAT 01/10/2022 2:06 Results f or PM CDT this procedure are in the results section. GLUCOSE, WHOLE BLOOD STAT 01/10/2022 2:06 Res ults for PM CDT this procedure are in the results section. POTASSIUM, B STAT 01/10/2022 2:06 Results for PM CDT this procedure are in the results section. SODIUM, B STAT 01/10/2022 2:06 Results for PM CDT this procedure are in the results section. CALCIUM, IONIZED, S/B STAT 01/10/2022 2:06 Re sults for PM CDT this procedure are in the results section. ABG W/COOX STAT 01/10/2022 2:06 Results for PM CDT this procedure are in the results section. MR STEREOTACTIC RAD - Routine 01/10/2022 1:37 Malignant Results for FRAMELESS (most inpatients PM CDT Neoplasm Of this proced ure and all Brain (HCC) are in the outpatients) results section. SODIUM, B STAT 01/10/2022 12:21 Results for PM CDT this procedure are in the results section. PATIENT STATUS STAT 01/10/2022 12:21 Results f or PM CDT this procedure are in the results section. GLUCOSE, WHOLE BLOOD STAT 01/10/2022 12:21 Res ults for PM CDT this procedure are in the results section. POTASSIUM, B STAT 01/10/2022 12:21 Results for PM CDT this procedure are in the results section. CALCIUM, IONIZED, S/B STAT 01/10/2022 12:21 Re sults for PM CDT this procedure are in the results section. ABG W/COOX STAT 01/10/2022 12:21 Results for PM CDT this procedure are in the results section. SURGICAL PATHOLOGY, Routine 01/10/2022 12:03 Malignant Resu lts for FROZEN LAB PM CDT Neoplasm Of this procedure Brain (HCC) are in the results section. PATIENT STATUS STAT 01/10/2022 11:53 Results f or AM CDT this procedure are in the results section. GLUCOSE, WHOLE BLOOD STAT 01/10/2022 11:53 Res ults for AM CDT this procedure are in the results section. POTASSIUM, B STAT 01/10/2022 11:53 Results for AM CDT this procedure are in the results section. SODIUM, B STAT 01/10/2022 11:53 Results for AM CDT this procedure are in the results section. CALCIUM, IONIZED, S/B STAT 01/10/2022 11:53 Re sults for AM CDT this procedure are in the results section. ABG W/COOX STAT 01/10/2022 11:53 Results for AM CDT this procedure are in the results section. GLUCOSE, WHOLE BLOOD STAT 01/10/2022 9:02 Res ults for AM CDT this procedure are in the results section. POTASSIUM, B STAT 01/10/2022 9:02 Results for AM CDT this procedure are in the results section. SODIUM, B STAT 01/10/2022 9:02 Results for AM CDT this procedure are in the results section. CALCIUM, IONIZED, S/B STAT 01/10/2022 9:02 Re sults for AM CDT this procedure are in the results section. ABG W/COOX STAT 01/10/2022 9:02 Results for AM CDT this procedure are in the results section. TYPE AND SCREEN STAT 01/10/2022 8:55 Results for AM CDT this procedure are in the results section. LDA ANE ARTERIAL LINE Routine 01/10/2022 8:42 Re sults for INSERTION AM CDT this procedure are in the results section. MD ARTL CATH/CNULA Routine 01/10/2022 8:42 Resul ts for MONITOR PERC AM CDT this procedure are in the results section. LDA ANE ENDOTRACHEAL Routine 01/10/2022 8:22 Res ults for AIRWAY AM CDT this procedure are in the results section. CRANIOTOMY 01/10/2022 7:50 Malignant STEREOTACTIC AM CDT Neoplasm Of Brain (HCC) SODIUM, S/P Timed 01/10/2022 6:33 Results for AM CDT this procedure are in the results section. SODIUM, S/P Timed 01/10/2022 12:57 Results for AM CDT this procedure are in the results section. OSMOLALITY, U Routine 01/09/2022 9:35 Results fo r PM CDT this procedure are in the results section. SODIUM, RANDOM, U Routine 01/09/2022 9:35 Result s for PM CDT this procedure are in the results section. BASIC METABOLIC STAT 01/09/2022 8:01 Results for PANEL, S/P PM CDT this procedure are in the results section. SARS CORONAVIRUS 2, Routine 01/09/2022 7:24 Resu lts for RNA, RAPID POC, V PM CDT this proce dure are in the results section. CBC WITHOUT Routine 01/09/2022 6:05 Results for DIFFERENTIAL, B PM CDT this procedu re are in the results section. HEMOGLOBIN A1C, B Routine 01/09/2022 5:58 Result s for PM CDT this procedure are in the results section. ECG Routine 01/09/2022 4:44 Results for PM CDT this procedure are in the results section. MR BRAIN FUNCTIONAL RAD - Routine 01/09/2022 12:04 Mass Brain Res ults for LANGUAGE WITH MD (most inpatients PM CDT this pr ocedure ADMINISTRATION and all are in the outpatients) results section. from Last 3 Months Results [facility] Daily Treatment Information (03/11/2022 1:08 PM CDT)Only the most recent of26 resultswithin the time period is included. [facility] gist Method Time Signature Course ID [id number] URENA ARIA Course Start Date URENA ARIA 2 08:23 CDT First Treatment URENA ARIA Date 2 10:11 CDT Last Treatment URENA ARIA Date 2 13:08 CDT Treatment Elapsed 39 URENA ARIA Days Reference Point [id number] URENA ARIA Dosage Given to 5400 AYANNA GREENEA Date cGy Session Dosage 200 URENA ARIA Given Plan ID [id number] URENA ARIA Fractions Treated 27 URENA ARIA to Date Planned Total 30 URENA ARIA Fractions Prescribed Dose 200 URENA ARIA Per Fraction Prescription Dose 6000 URENA ARIA in cGy Plan Primary [id number] URENA ARIA Reference Point Specimen (Source) Anatomical Collection Method Collection Time Re ceived Time Location / / Volume Laterality 03/11/2022 1:08 PM CDT Provider Not In System RADIATION ONCOLOGY ORDERABLE S Performing Organization Address City/State/ZIP Code Phon e Number AYANNA ARECHIGA na (ABNORMAL) Hematology/Oncology - Blood, External Lab Results (03/04/2022 3:40 PM CDT)Only the most recent of6 resultswithin the time period is included. athologist Signature EXT Hemoglobin 12.3 12 - 16 OTHER (SPECIFY IN HOUSE PIPING INSPECTOR) EXT Leukocytes 4 (A) 4.5 - 11 OTHER (SPECIFY IN HOUSE PIPING INSPECTOR) EXT Absolute 2.2 1.7 - 7.0 OTHER (SPECIFY Neutrophil IN HOUSE PIPING INSPECTOR) Count EXT Lymphs 1.3 0.9 - 2.9 OTHER (SPECIFY Absolute IN HOUSE PIPING INSPECTOR) EXT Platelet 346 140 - 440 OTHER (SPECIFY Count IN HOUSE PIPING INSPECTOR) Specimen (Source) Anatomical Collection Method Collection Time Re ceived Time Location / / Volume Laterality Blood 03/04/2022 3:40 PM CDT Historical Provider LAB BLOOD NON ADD-ON Performing Organization Address City/State/ZIP Code Phon e Number OTHER (SPECIFY IN HOUSE PIPING INSPECTOR) OTHER (SPECIFY IN HOUSE PIPING INSPECTOR) N/A Misc. [employer] (02/05/2022 12:00 AM CDT) P athologist Signature Test Name Matchup 02/26/2022 INVC single gene 1:54 PM CDT testing Result SEE COMMENT 02/26/2022 INVC 2:55 PM CDT Comment: For final report, select Lab-Send Out L ab Results hyperlink below. Specimen (Source) Anatomical Collection Method Collection Time Re ceived Time Location / / Volume Laterality Varies 02/05/2022 02/26/2022 1:5 4 PM CDT Narrative This result has an attachment that is no t available. Sanya Mehta M.D. LAB MISC ORDERABLES Performing Organization Address [facility]/ZIP Code Phon e Number [employer] [address] [place] [phone] [facility] [employer] [phone] [facility] MML Referral Test 1 (02/05/2022 12:00 AM CDT) P athologist Signature Test Name [facility] 02/28/2022 [facility] Custom Panel 12:20 PM CDT Result SEE COMMENT 02/28/2022 [facility] 1:57 PM CDT Comment: For final report, select Lab-Send Out L ab Results hyperlink below. Test Performed By: [employer] [address] [place] [phone] Specimen (Source) Anatomical Collection Method Collection Time Re ceived Time Location / / Volume Laterality Varies 02/05/2022 02/28/2022 12:2 0 PM CDT Narrative This result has an attachment that is no t available. Sanya Mehta M.D. LAB MISC ORDERABLES Performing Organization Address [facility] Code Phon e Number [facility] REFERRAL LAB [facility] Aria Course Complete Treatment Information (01/30/2022 3:44 PM CDT) [facility] Signature Course ID [id number] URENA ARIA Course Start Date URENA ARIA 2 13:19 CDT Course End Date URENA ARIA 2 15:43 CDT Reference Point icru ref URENA ARIA Dosage Given to 0 URENA ARIA Date cGy Plan ID [id number] URENA ARIA Fractions Treated 0 URENA ARIA to Date Planned Total 30 URENA ARIA Fractions Prescribed Dose 207 URENA ARIA Per Fraction Prescription Dose 6216.7 URENA ARIA in cGy Plan Primary icru ref URENA ARIA Reference Point Specimen (Source) Anatomical Collection Method Collection Time Re ceived Time Location / / Volume Laterality 01/30/2022 3:44 PM CDT Provider Not In System RADIATION ONCOLOGY ORDERABLE S Performing Organization Address City/State/ZIP Code Phon e Number [place] URENA HAWK na Interpretation of Outside MR Head (01/28/2022 8:21 PM CDT) Anatomical Region Laterality Modality Neuroradiology RST LOS, Neuroradiology ARZ LOS, N/A Magnetic Resonance Neuroradiology FLA LOS, Head, Other Specimen (Source) Anatomical Collection Method Collection Time Re ceived Time Location / / Volume Laterality 01/29/2022 8:19 AM CDT Impressions 01/29/2022 9:15 AM CDT Evolution of blood products within the left temporoparietal resection bed, now largely T1 hyperintense. Given the T1 hyperinten sity, only a small amount of contrast enhancement is evident about the margins of the resection bed. Focus of restricted diffusion at superior margin of resection bed at the left parietal lobe. Ongoing signal abnormality at medial left temporal lobe extending into adjacent thalamus; contin ued surveillance of these regions will be helpful given possibility of additional sites of tumor involvement. Narrative 01/29/2022 9:15 AM CDT EXAM: ??INTERPRETATION OF OUTSIDE MR HEAD COMPARISON: ??Preoperative head MRI 12/23. Postoperative head MRI 01/10/2022. 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 Initial left craniotomy and resection with rapid recurrent progressi ve tumor by MRI 12/10/2021. Repeat resection 01/10/2022. FINDINGS: ??Outside head MRI without and with gadolinium 01/28/2022. Since 01/10/2022 MRI the blood products within the operative cavity at the left temporoparietal region now demonstrated largely uniform precontrast T1 hyperintensity. Only a small amount of contrast enhancement about the margins o f the pronounced T1 hyperintensity is evident, including a small focus at the at the posterior infe rior margin of the resection bed. Heterogeneous restricted diffusion within the resection bed assoc iated with the blood products. There is some restricted diffusion at the posterior superior evangelina in of the resection bed at the posterior left parietal lobe (3/40); this is largely nonenhancing, bu t with a small focus of enhancement immediately adjacent to the resection margin. ?? Continuing appearance of T2 signal abnor mality extending into medial left temporal lobe, including the left hippocampal formation as well a s into the left thalamus, with appearance of some mild mass effect (); continued surveillance of this will be helpful as potential sites for additional tumor involvement. Small focus of signal abnormality at more anterior lateral left temporal lobe (02/10) where continuing surveillance jody l be helpful. Continuing thin extra- axial fluid collection subjacent to the craniotomy, approximate ly 8 mm in thickness. Interval decrease in auyt-es-uijic midli ne shift with improved patency of the basilar cisterns. Mild leukoaraiosis. Patent intracranial arter ial flow voids. Procedure Note Marvin Cardenas Jr., M.D., Ph.D. - 02/2022 EXAM: INTERPRETATION OF OUTSIDE MR HEAD COMPARISON: Preoperative head MRI 01/09. Postoperative head MRI 01/10/2022. 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 Initial left craniotomy and resection with rapid recurrent progressi ve tumor by MRI 12/10/2021. Repeat resection 01/10/2022. FINDINGS: Outside head MRI without and with gadolinium 01/28/2022. Since 01/10/2022 MRI the blood products within the operative cavity at the left temporoparietal region now demonstrated largely uniform precontrast T1 hyperintensity. Only a small amount of contrast enhancement about the margins o f the pronounced T1 hyperintensity is evident, including a small focus at the at the posterior infe rior margin of the resection bed. Heterogeneous restricted diffusion within the resection bed assoc iated with the blood products. There is some restricted diffusion at the posterior superior evangelina in of the resection bed at the posterior left parietal lobe (3/40); this is largely nonenhancing, bu t with a small focus of enhancement immediately adjacent to the resection margin. Continuing appearance of T2 signal abnor mality extending into medial left temporal lobe, including the left hippocampal formation as well a s into the left thalamus, with appearance of some mild mass effect (02/05-); continued surveillance of this will be helpful as potential sites for additional tumor involvement. Small focus of signal abnormality at more anterior lateral left temporal lobe (02/10) where continuing surveillance jody l be helpful. Continuing thin extra- axial fluid collection subjacent to the craniotomy, approximate ly 8 mm in thickness. Interval decrease in wbty-yu-mbziv midli ne shift with improved patency of the basilar cisterns. Mild leukoaraiosis. Patent intracranial arter ial flow voids. IMPRESSION: Evolution of blood products within the l eft temporoparietal resection bed, now largely T1 hyperintense. Given the T1 hyperinten sity, only a small amount of contrast enhancement is evident about the margins of the resection bed. Focus of restricted diffusion at superior margin of resection bed at the left parietal lobe. Ongoing signal abnormality at medial left temporal lobe extending into adjacent thalamus; contin ued surveillance of these regions will be helpful given possibility of additional sites of tumor involvement. Cliff Sumner M.D., M.S. IMG MRI PROCEDURES BRAIN W/WO CONTRAST-Outside MR Neuro (01/28/2022 1:40 PM CDT) Specimen (Source) Anatomical Collection Method Collection Time Re ceived Time Location / / Volume Laterality 01/28/2022 1:36 PM CDT Narrative [facility] - 01/28/2022 3:50 PM CDT This order has been created and auto-finalized to support the import of outside images. If available, original i nterpretation can be found on the Media Tab in Chart Review, in Document V iewer, or as an image in QREADS. If a re-interpretation or overread is re quired please follow defined workflow. ?? Provider Not In System IMG MRI PROCEDURES Performing Organization Address City/State/ZIP Code Phon e Number IIOK [facility] NA Initial Rad Onc Treatment Planning CT Simulation (01/28/2022 11:43 AM CDT) Specimen (Source) Anatomical Location Collection Method / Collectio n Time Received Time / Laterality Volume Narrative AYANNA ARECHIGA - 01/28/2022 11:43 AM CDT Zuly Blancas R, RTT ? 01/28/2022 11:44 AM Initial Rad Onc Treatment Planning CT Si mulation Date/Time: 01/28/2022 11:43 AM Performed by: Stephanie Gleason M.D. Authorized by: Stephanie Gleason M.D. Stephanie Gleason M.D. RADIATION ONCOLOGY ORDERABLE S Performing Organization Address City/State/ZIP Code Phon e Number AYANNA ARECHIGA [place] na Basic Metabolic Panel (01/22/2022 6:48 AM CDT)Only the most recent of6 results within the time period is included. P athologist Signature Potassium, S 5.1 3.6 - 5.2 01/22/2022 DTL mmol/L 7:49 AM CDT Sodium, S 137 135 - 145 01/22/2022 DTL mmol/L 7:49 AM CDT Chloride, S 100 98 - 107 01/22/2022 DTL mmol/L 7:49 AM CDT Bicarbonate, S 28 22 - 29 01/22/2022 DTL mmol/L 7:49 AM CDT Anion Gap 9 7 - 15 01/22/2022 DTL 7:49 AM CDT BUN (Blood Urea 17 6 - 21 01/22/2022 DTL Nitrogen), S mg/dL 7:49 AM CDT Creatinine, S 0.71 0.59 - 1.04 01/22/2022 DTL mg/dL 7:49 AM CDT eGFR-Non >90 >=60 01/22/2022 DTL Black/ mL/min/BSA 7:49 AM CDT [place] Comment: ----ADDITIONAL INFORMATION---- Estimated GFR calculated using the 2009 CKD_EPI creatinine equation. eGFR-Black/ >90 >=60 mL/min/BSA 2021 7:49 AM CDT DTL Comment: ----ADDITIONAL INFORMATION---- Estimated GFR calculated using the 2009 CKD_EPI creatinine equation. Calcium, Total, S 9.4 8.6 - 10.0 mg/dL 01/22/2022 7:4 9 AM CDT DTL Glucose, S 100 70 - 140 mg/dL 01/22/2022 7:49 AM CDT DTL Specimen Anatomical Collection Method Collection Time Receive d Time (Source) Location / / Volume Laterality Blood (Blood, 01/22/2022 6:48 01/22/2022 Venous) AM CDT 7:32 AM CDT Benjamín Warner M.D. LAB BLOOD ADD-ON Performing Organization Address City/State/ZIP Code Phon e Number [facility] - [address] [place], [place] [address] [facility] [place] [address] [facility] [address] [facility] Sodium (01/13/2022 6:16 PM CDT)Only the most recent of8 resultswithin the time period is included. P athologist Signature Sodium, S 136 135 - 145 01/13/2022 DTL mmol/L 7:31 PM CDT Specimen Anatomical Collection Method Collection Time Receive d Time (Source) Location / / Volume Laterality Blood (Blood, 01/13/2022 6:16 01/13/2022 Venous) PM CDT 6:49 PM CDT Madiha Castro M.D. LAB BLOOD ADD-ON Performing Organization Address City/State/ZIP Code Phon e Number [facility] - [address] [place] [address] [place] [id number] [facility] [address] [facility] CT Head without IV Contrast (01/13/2022 3:30 PM CDT) Anatomical Region Laterality Modality Head, Neuroradiology RST LOS, N/A Computed T omography, Computed Neuroradiology ARZ LOS, Neuroradiology T omography FLA [facility] Specimen (Source) Anatomical Collection Method Collection Time Re ceived Time Location / / Volume Laterality 01/13/2022 3:23 PM CDT Impressions 01/13/2022 5:01 PM CDT Postoperative changes of temporoparietal craniotomy and resection of the left temporoparietal region mass with expecte d postoperative findings as described. No findings on noncontrast CT or CTA to suggest acute i nfarct. Narrative 01/13/2022 5:01 PM CDT EXAM: CT HEAD WITHOUT IV CONTRAST, CT HEAD NECK ANGIOGRAM WITH IV CONTRAST Including 3D image post-processing. COMPARISON: 01/10/2022 MR brain FINDINGS: NONCONTRAST HEAD: Left temporoparietal craniotomy and rese ction of left temporoparietal region mass. Expected postoperative pneumocephalus and subcuta neous emphysema. Edema and stable mass effect with 12 mm rightward midline shift. Similar effacem ent of the occipital horn of the left lateral ventricle. Hyperdensities overlying and within the operative site likely represents postoperative blood products. There is no CT evidence of acu te infarct. CTA HEAD/NECK: Conventional 3 vessel aortic arch branch ing. The bilateral vertebral and carotid arteries are patent without evidence of significant stenosis , aneurysm, or focal injury. The rampart of [place] and its proximal branch vessels are patent witho ut evidence of significant stenosis or aneurysm. Codominant vertebral basilar system. The dural veno us sinuses are patent where visualized. Procedure Note Yolanda Fallon M.D. - 01/13/2022Formatt ing of this note might be different from the original. EXAM: CT HEAD WITHOUT IV CONTRAST, CT HE AD NECK ANGIOGRAM WITH IV CONTRAST Including 3D image post-processing. COMPARISON: 01/10/2022 MR brain FINDINGS: NONCONTRAST HEAD: Left temporoparietal craniotomy and rese ction of left temporoparietal region mass. Expected postoperative pneumocephalus and subcuta neous emphysema. Edema and stable mass effect with 12 mm rightward midline shift. Similar effacem ent of the occipital horn of the left lateral ventricle. Hyperdensities overlying and within the operative site likely represents postoperative blood products. There is no CT evidence of acu te infarct. CTA HEAD/NECK: Conventional 3 vessel aortic arch branch ing. The bilateral vertebral and carotid arteries are patent without evidence of significant stenosis , aneurysm, or focal injury. The rampart of [place] and its proximal branch vessels are patent witho ut evidence of significant stenosis or aneurysm. Codominant vertebral basilar system. The dural veno us sinuses are patent where visualized. IMPRESSION: Postoperative changes of temporoparietal craniotomy and resection of the left temporoparietal region mass with expecte d postoperative findings as described. No findings on noncontrast CT or CTA to suggest acute i nfarct. Madiha MAKI CT PROCEDURES CT Head Neck Angiogram with IV Contrast (01/13/2022 3:30 PM CDT) Anatomical Region Laterality Modality Head and Neck, Neuroradiology RST LOS, N/A C omputed Tomography, Computed Neuroradiology ARZ LOS, Neuroradiology T omography FLA LOS Specimen (Source) Anatomical Collection Method Collection Time Re ceived Time Location / / Volume Laterality 01/13/2022 4:13 PM CDT Impressions 01/13/2022 5:01 PM CDT Postoperative changes of temporoparietal craniotomy and resection of the left temporoparietal region mass with expecte d postoperative findings as described. No findings on noncontrast CT or CTA to suggest acute i nfarct. Narrative 01/13/2022 5:01 PM CDT EXAM: CT HEAD WITHOUT IV CONTRAST, CT HEAD NECK ANGIOGRAM WITH IV CONTRAST Including 3D image post-processing. COMPARISON: 01/10/2022 MR brain FINDINGS: NONCONTRAST HEAD: Left temporoparietal craniotomy and rese ction of left temporoparietal region mass. Expected postoperative pneumocephalus and subcuta neous emphysema. Edema and stable mass effect with 12 mm rightward midline shift. Similar effacem ent of the occipital horn of the left lateral ventricle. Hyperdensities overlying and within the operative site likely represents postoperative blood products. There is no CT evidence of acu te infarct. CTA HEAD/NECK: Conventional 3 vessel aortic arch branch ing. The bilateral vertebral and carotid arteries are patent without evidence of significant stenosis , aneurysm, or focal injury. The rampart of [place] and its proximal branch vessels are patent witho ut evidence of significant stenosis or aneurysm. Codominant vertebral basilar system. The dural veno us sinuses are patent where visualized. Procedure Note Yolanda Fallon M.D. - 01/13/2022Formatt ing of this note might be different from the original. EXAM: CT HEAD WITHOUT IV CONTRAST, CT HE AD NECK ANGIOGRAM WITH IV CONTRAST Including 3D image post-processing. COMPARISON: 01/10/2022 MR brain FINDINGS: NONCONTRAST HEAD: Left temporoparietal craniotomy and rese ction of left temporoparietal region mass. Expected postoperative pneumocephalus and subcuta neous emphysema. Edema and stable mass effect with 12 mm rightward midline shift. Similar effacem ent of the occipital horn of the left lateral ventricle. Hyperdensities overlying and within the operative site likely represents postoperative blood products. There is no CT evidence of acu te infarct. CTA HEAD/NECK: Conventional 3 vessel aortic arch branch ing. The bilateral vertebral and carotid arteries are patent without evidence of significant stenosis , aneurysm, or focal injury. The ramp[place] of [place] and its proximal branch vessels are patent witho ut evidence of significant stenosis or aneurysm. Codominant vertebral basilar system. The dural veno us sinuses are patent where visualized. IMPRESSION: Postoperative changes of temporoparietal craniotomy and resection of the left temporoparietal region mass with expecte d postoperative findings as described. No findings on noncontrast CT or CTA to suggest acute i nfarct. Madiha Castro M.D. IMG CT PROCEDURES EEG ROUTINE (01/11/2022 1:29 PM CDT) Specimen (Source) Anatomical Location Collection Method / Collectio n Time Received Time / Laterality Volume Narrative MMODAL - 01/11/2022 3:20 PM CDT Clinical Interpretation: The short-term video EEG shows the followin. Mild to moderate generalized slowing of the background rhythm, consistent with an encephalopathy of non specific etiology 2. Continuous delta slowing over the lef t temporal head region, consistent with focal dysfunction in this region, w ith increased amplitude likely related to artifact from the recent cran iotomy. 3. No epileptiform discharges or events recorded. Classification: SPECIAL STUDY - Short-te rm video EEG. Dysrhythmia grade 2 generalized, max lef t temporal. Delta - left temporal Asymmetry grade 1 - increased left tempo ral Sleep - unsuccessful. EKG channel. Report: the EEG in this encephalopathic patient on post op day 1 from left temporal tumor resection demonstrates oc casional 8-9 Hz activity over the right posterior head region, but is not well visualized on the left. There is diffuse slowing of the background wit h a mixture of polymorphic delta and theta frequencies. There is persiste nt higher amplitude polymorphic delta activity over the left temporal he ad region. During the recording, the patient appear ed drowsy/encephalopathic but no sleep architecture was seen. The EKG channel was unremarkable. Dr. Costa reviewed the EEG with Dr. Chavez and agrees with these findings. Hattie Tobar M.D., Ph.D. NEUROLOGY ORDERABLES Performing Organization Address City/State/ZIP Code Phon e Number MMODAL MMODAL NA MR Brain without and with IV Contrast (01/10/2022 5:35 PM CDT) Anatomical Region Laterality Modality Head, Brain, Neuroradiology RST LOS, Neuroradiology ARZ N/A Magnetic Resonance LOS, Neuroradiology FLA LOS Specimen (Source) Anatomical Collection Method Collection Time Re ceived Time Location / / Volume Laterality 01/10/2022 5:55 PM CDT Impressions 01/10/2022 6:33 PM CDT Interval repeat left temporoparietal craniotomy and resection of left temporoparietal region mass, since MRI 01/09/2022. Expec anayeli postoperative left convexity extra- axial collection and pneumocephalus, similar vasogenic edema and mass effect resulting in 12 mm rightward midline shift, stable. Enhancement surrounding the rese ction cavity should be postoperative without evidence for gross residual enhancing tumor. 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 Initial left craniotomy and resection performed 12/05/2021. Rapid re current progressive tumor by MRI 12/10/2021. FINDINGS: Interval left temporoparietal craniotomy for repeat resection of recurrent left temporoparietal region mass, since MRI 0 01/09/2022. Thin extra-axial fluid collection deep to the craniotomy site measuring 7 mm in small left frontal pneumocephalus. Resection cavity opacified with heterogenous blood products and aligned by thin enhancement and hemosiderin staining. No nodular or masslike enhancement to suggest gross re sidual tumor. Nonenhancing surrounding FLAIR hyperintensity in the left temporal and parietal lobes predominantly appears stable. Localized mass effect partially effaces the left lateral ventr icle and resultant 12 mm rightward shift, stable. Minimal restricted diffusion around the resectio n cavity should be postoperative. Thin dural enhancement deep to the craniotomy site. No addition al abnormal restricted diffusion or enhancement identified. Arterial flow voids of the skull base ar e patent. Abnormal FLAIR hyperintensity in the left thalamus is similar, as is the mass effect on the left cerebral peduncle. Cerebellar tonsils are normal position morphology. Mild mucosal thicke marly and fluid levels in the maxillary sphenoid sinus. Mastoid air cells are clear. Expected po stoperative changes of the left calvarial soft tissues. Procedure Note Ronny Ac M.D. - 01/10/2022Formatt ing of this note might be different from the original. 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 Initial left craniotomy and resection performed 12/05/2021. Rapid re current progressive tumor by MRI 12/10/2021. FINDINGS: Interval left temporoparietal craniotomy for repeat resection of recurrent left temporoparietal region mass, since MRI 0 01/09/2022. Thin extra-axial fluid collection deep to the craniotomy site measuring 7 mm in small left frontal pneumocephalus. Resection cavity opacified with heterogenous blood products and aligned by thin enhancement and hemosiderin staining. No nodular or masslike enhancement to suggest gross re sidual tumor. Nonenhancing surrounding FLAIR hyperintensity in the left temporal and parietal lobes predominantly appears stable. Localized mass effect partially effaces the left lateral ventr icle and resultant 12 mm rightward shift, stable. Minimal restricted diffusion around the resectio n cavity should be postoperative. Thin dural enhancement deep to the craniotomy site. No addition al abnormal restricted diffusion or enhancement identified. Arterial flow voids of the skull base ar e patent. Abnormal FLAIR hyperintensity in the left thalamus is similar, as is the mass effect on the left cerebral peduncle. Cerebellar tonsils are normal position morphology. Mild mucosal thicke marly and fluid levels in the maxillary sphenoid sinus. Mastoid air cells are clear. Expected po stoperative changes of the left calvarial soft tissues. 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 Expec anayeli postoperative left convexity extra- axial collection and pneumocephalus, similar vasogenic edema and mass effect resulting in 12 mm rightward midline shift, stable. Enhancement surrounding the rese ction cavity should be postoperative without evidence for gross residual enhancing tumor. Charles Ivey M.D., Ph.D. IMG MRI PROCEDURES Patient Status (01/10/2022 2:06 PM CDT)Only the most recent of3 resultswithin the time period is included. P athologist Signature Temperature 36.0 37.0 deg C 01/10/2022 [facility] 2:06 PM CDT FIO2 0.50 0.21=AIR 01/10/2022 [facility] 2:06 PM CDT Specimen Anatomical Collection Method Collection Time Receive d Time (Source) Location / / Volume Laterality Blood 01/10/2022 2:06 01/10/2022 PM CDT 2:06 PM CDT Eileen Amezquita APRN, HUMAN RESOURCE ANALYST, MNA LAB BLOOD NON ADD-ON Performing Organization Address [facility] Phon e Number [facility] - [address] [place], [place] [address] [facility] [place] [address] Sodium, B (01/10/2022 2:06 PM CDT)Only the most recent of4 resultswithin the time period is included. P athologist Signature Sodium, B 138 135 - 145 01/10/2022 [facility] mmol/L 2:10 PM CDT Specimen Anatomical Collection Method Collection Time Receive d Time (Source) Location / / Volume Laterality Blood (Blood, 01/10/2022 2:06 01/10/2022 Arterial Line) PM CDT 2:06 PM CDT Ana Vaz M.D. LAB BLOOD NON ADD-ON Performing Organization Address City/[facility] Phon e Number [facility] - [address] [place], [place] [address] [facility] [place] [address] (ABNORMAL) Blood Gas with Coox, Arterial (01/10/2022 2:06 PM CDT)Only the most recent of4 resultswithin the time period is included. P athologist Signature pO2 168 (H) 83 - 108 01/10/2022 [facility] mm Hg 2:10 PM CDT pCO2 37 32 - 45 mm 01/10/2022 [facility] Hg 2:10 PM CDT pH 7.47 (H) 7.35 - 01/10/2022 [facility] 7.45 pH 2:10 PM CDT Base Excess 3 -2 - 3 01/10/2022 [facility] mmol/L 2:10 PM CDT HCO3 27 (H) 22 - 26 01/10/2022 [facility] mmol/L 2:10 PM CDT Hemoglobin, B 11.3 (L) 11.6 - 01/10/2022 [facility] 15.0 g/dL 2:10 PM CDT O2Hb 97.8 94.0 - 01/10/2022 [facility] 98.0 % 2:10 PM CDT COHb <1.0 <3.0 % 01/10/2022 [facility] 2:10 PM CDT MetHb 1.0 <1.5 % 01/10/2022 [facility] 2:10 PM CDT CtO2 15.9 (L) 18.0 - 01/10/2022 [facility] 21.0 vol % 2:10 PM CDT Specimen Anatomical Collection Method Collection Time Receive d Time (Source) Location / / Volume Laterality Blood (Blood, 01/10/2022 2:06 01/10/2022 Arterial Line) PM CDT 2:06 PM CDT Ana Vaz M.D. LAB BLOOD NON ADD-ON Performing Organization Address [facility] Phon e Number [facility] - [address] [place], [place] [address] [place] [address] Potassium, Blood (01/10/2022 2:06 PM CDT)Only the most recent of4 resultswithin the time period is included. athologist Signature Potassium, B 4.1 3.6 - 5.2 01/10/2022 [facility] mmol/L 2:10 PM CDT Specimen Anatomical Collection Method Collection Time Receive d Time (Source) Location / / Volume Laterality Blood (Blood, 01/10/2022 2:06 01/10/2022 Arterial Line) PM CDT 2:06 PM CDT Ana Vaz M.D. LAB BLOOD NON ADD-ON Performing Organization Address City/[facility] Phon e Number [facility] - [address] [place], [place] [address] [place] [address] Glucose, Whole Blood (01/10/2022 2:06 PM CDT)Only the most recent of4 results within the time period is included. P athologist Signature Glucose 118 70 - 140 01/10/2022 [facility] mg/dL 2:10 PM CDT Specimen Anatomical Collection Method Collection Time Receive d Time (Source) Location / / Volume Laterality Blood (Blood, 01/10/2022 2:06 01/10/2022 Arterial Line) PM CDT 2:06 PM CDT Ana Vaz M.D. LAB BLOOD TROPONIN Performing Organization Address [facility] Code Phon e Number [facility] - [address] [place] [id number] [address] [place] [address] Calcium, Ionized (01/10/2022 2:06 PM CDT)Only the most recent of4 resultswithin the time period is included. athologist Signature Calcium, 4.95 4.65 - 5.30 01/10/2022 [facility] Ionized, B mg/dL 2:10 PM CDT Specimen Anatomical Collection Method Collection Time Receive d Time (Source) Location / / Volume Laterality Blood (Blood, 01/10/2022 2:06 01/10/2022 Arterial Line) PM CDT 2:06 PM CDT Ana Vaz M.D. LAB BLOOD NON ADD-ON Performing Organization Address City/[facility] Phon e Number [facility] - [address] MR Stereotactic Frameless (01/10/2022 1:37 PM CDT) Anatomical Region Laterality Modality Head, Brain, Neuroradiology RST LOS, Neuroradiology ARZ N/A Magnetic Resonance LOS, Neuroradiology FLA LOS Specimen (Source) Anatomical Collection Method Collection Time Re ceived Time Location / / Volume Laterality 01/10/2022 1:24 PM CDT Impressions 01/10/2022 2:25 PM CDT Intraoperative MRI demonstrates resection of the majority of the previously demonstrated presumed high-grade glioma from the left posterior temporal/parietal/occipital region (greater than 90 percent tumor volume resected). Small amount of residual enhancing tumor noted along the deep, anterior/medial aspect of the resection cavity. Corresponding decreased mass effect as detailed. Narrative 01/10/2022 2:25 PM CDT EXAM: MR STEREOTACTIC FRAMELESS COMPARISON: 01/09/2022 functional MRI, 0 12/05/[address] and 11/30/2021 brain MRI and 11/29/2021 CTA. BRIEF HISTORY: Grade 3 astrocytoma, IDH- wild type, MGMT unmethylated, biopsy 12/05/2021. Significant tumor progression suggestive of dediffer entiation to high-grade glioma noted on preoperative functional MRI 01/09/2022. TECHNICAL NOTE: Pre and postcontrast T1- weighted sequences and a diffusion weighted sequence of the brain were obtained. FINDINGS: Intraoperative MRI demonstrate s operative findings with resection of the majority of the previously demonstrated predominantly pe ripherally enhancing, centrally necrotic intra-axial mass from the left xjxduqw-ifqejbj-cuaiscijn region. There is some fluid and gas within the surgical cavity with a zone of precontrast T1 hyp erintense presumed blood products along the medial and inferior margin of the surgical cavity e xtending down to the atrium of the left lateral ventricle. Superimposed residual enhancing tumor al juan the deep anterior aspect of the resection cavity extending to the posterior temporal/atri al portion of the left lateral ventricle. Overall decreased mass effect in the lef t cerebral hemisphere with partial reexpansion of the left lateral ventricle. 1 cm mjma-rw-dutdv mi dline shift at the level of the septum pellucidum has improved from 12 mm on the preoperative exam. Mild prominence/entrapment of the temporal horn of the left lateral ventricle again noted. Prev iously noted T2/FLAIR hyperintense signal in the surrounding brain extending into the left posterior capsular regions/basal ganglia and left hippocampus is again noted on the T1-weighted sequences but w as better characterized on the preoperative T2 FLAIR sequence. Diffusion weighted sequence de graded by artifact but no definite acute infarct identified. Procedure Note Cuate Chavez M.D. - 01/10/2022Form atting of this note might be different from the original. EXAM: MR STEREOTACTIC FRAMELESS COMPARISON: 01/09/2022 functional MRI, 0 12/05/[address] and 11/30/2021 brain MRI and 11/29/2021 CTA. BRIEF HISTORY: Grade 3 astrocytoma, IDH- wild type, MGMT unmethylated, biopsy 12/05/2021. Significant tumor progression suggestive of dediffer entiation to high-grade glioma noted on preoperative functional MRI 01/09/2022. TECHNICAL NOTE: Pre and postcontrast T1- weighted sequences and a diffusion weighted sequence of the brain were obtained. FINDINGS: Intraoperative MRI demonstrate s operative findings with resection of the majority of the previously demonstrated predominantly pe ripherally enhancing, centrally necrotic intra-axial mass from the left nigukvp-bpsfsam-csbxulitl region. There is some fluid and gas within the surgical cavity with a zone of precontrast T1 hyp erintense presumed blood products along the medial and inferior margin of the surgical cavity e xtending down to the atrium of the left lateral ventricle. Superimposed residual enhancing tumor al juan the deep anterior aspect of the resection cavity extending to the posterior temporal/atri al portion of the left lateral ventricle. Overall decreased mass effect in the lef t cerebral hemisphere with partial reexpansion of the left lateral ventricle. 1 cm pmrr-pv-tdbiv mi dline shift at the level of the septum pellucidum has improved from 12 mm on the preoperative exam. Mild prominence/entrapment of the temporal horn of the left lateral ventricle again noted. Prev iously noted T2/FLAIR hyperintense signal in the surrounding brain extending into the left posterior capsular regions/basal ganglia and left hippocampus is again noted on the T1-weighted sequences but w as better characterized on the preoperative T2 FLAIR sequence. Diffusion weighted sequence de graded by artifact but no definite acute infarct identified. IMPRESSION: Intraoperative MRI demonstrates resectio n of the majority of the previously demonstrated presumed high-grade glioma from the left posterior temporal/parietal/occipital region (greater than 90 percent tumor volume resected). Small amount of residual enhancing tumor noted along the deep, anterior/medial aspect of the resection cavity. Corresponding decreased mass effect as detailed. Charles Ivey M.D., Ph.D. IMG MRI PROCEDURES Surgical Pathology, Frozen Lab (01/10/2022 12:03 PM CDT) Component Value Ref Test Analysis Performed At [facility] Method Time Signature 01/14/2022 [facility] 5:24 PM CDT Participated in Kierra Wilson -Pathology Fellow 01/14/2022 [facility] the Lashon Talley M.D.-Pathology Resident 5:24 PM CDT Interpretation Liliam Burr M.D. -Pathology Resident Report Bryanna Sanchez M.D. 01/14/2022 [facility] electronically 5:24 PM CDT signed by I verify that I have examined all relevant slides/materials for the specimen(s) and rendered or confirmed the diagnosis. Seen in consultation with: Felisha Silveira M.D., Ph.D. Frozen A. ??Brain, left temporal lesion, smears: ??High-grade glioma. 01/14/2022 [facility] Intraoperative 5:24 PM CDT Report Signed by Bryanna Sanchez M.D. 01/10/2022 5:19 PM Gross Description A. ??Received fresh labeled left brain temporal lesion is 01/14/2022 [facility] a 5:24 PM CDT 5.9 x 5.3 x 2.8 cm portion of brain with extensive hemorrhage. ??Smears prepared. ??Mine Engineering Supervisor tissue submitted for permanent sections. ??A portion of tissue is collected for potential future ancillary studies. ??After clinical evaluation, residual tissue is procured for IRB [id number]. ??Grossed by Lashon Talley M.D.-Pathology Resident. B. ??Received fresh labeled left stereotactic tumor core is a 1.2 x 0.8 x 0.6 cm portion of brain. ??All submitted for permanent sections. ??Grossed by Don De La PazH.Onelia, SAMMI([facility]). C. ??Received fresh labeled left temporal brain lesion is a 3 x 3 x 0.5 cm aggregate of brain tissue admixed with blood. All submitted for permanent sections. ??After clinical evaluation, residual tissue is procured for IRB [id number]. Grossed by Don JohnsonHSAMMI Esquivel([facility]). D. ??Received fresh within three CUSA traps labeled left temporal brain lesion cusa socks is a 6 x 6 x 1 cm aggregate of friable fragments of brain tissue admixed with blood. ??Mine Engineering Supervisor tissue submitted for permanent sections. ??After clinical evaluation, residual tissue is procured for IRB [id number]. ??Grossed by Don JohnsonH.SAMMI Rousseau([facility]). Block Summary A Left brain temporal lesion 022 [facility] A1 Left brain temporal lesion-frozen 5:2 4 PM CDT A2 Left brain temporal lesion 2 A3 Left brain temporal lesion 3 A4 Left brain temporal lesion 4 A5 Left brain temporal lesion 5 A6 Left brain temporal lesion 6 B Left brain stereotactic tumor core B1 Left brain stereotactic tumor core - 1 B2 Left brain stereotactic tumor core - 2 C Left temporal brain lesion C1 Left temporal brain lesion 1 C2 Left temporal brain lesion 2 C3 Left temporal brain lesion 3 C4 Left temporal brain lesion 4 D Left temporal brain lesion cusa socks D1 Left temporal brain lesion cusa socks -1 D2 Left temporal brain lesion cusa socks -2 D3 Left temporal brain lesion cusa socks -3 Addendum Immunostain for BRAF V600E on block A4 shows the neopl astic 01/15/2022 [facility] cells to be BRAF negative. 2:09 PM CDT Signed by Bryanna Sacnhez M.D. 01/15/2022 2:09 PM Comment: REVISED RESULTS Interpretation FINAL DIAGNOSIS 01/15/2022 2:09 PM CDT CHOLO Ball. ??Brain, left temporal lesion, resection: Glioblastoma, IDH-wildtype (FOREIGN LANGUAGE INSTRUCTOR WHO grade 4), clinically residual. See comment. 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 The biopsy specimen lacked microvascular proliferation and tumor necrosis. By immunohistochemistry, the tumor cells were negative for IDH1-R132H and showed retained ATRX expression. 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 Per report, MGMT is NOT methylated . The current resection specimen shows a diffusely infiltrating astrocytoma with high cellularity and variable morphology. Tumor cells range from spindled to epithelioid and show marked nuclear pleomorphism. Mitotic activity, microvascular proliferation with luminal thrombosis, and extensive abscess-like tumor necrosis are present. The overall histologic and molecular findings support the diagnosis of glioblastoma, IDH-wildtype (FOREIGN LANGUAGE INSTRUCTOR WHO grade 4). Specimen (Source) Anatomical Collection Method Collection Time Re ceived Time Location / / Volume Laterality Tissue (Brain, 01/10/2022 12:03 Left) PM CDT Comment: IRB #[id number] Tissue (Brain, Left) 01/10/2022 2:36 PM CDT Comment: IRB #[id number] Tissue (Brain, Left) 01/10/2022 2:57 PM CDT Comment: IRB #[id number] Tissue (Brain, Left) 01/10/2022 3:07 PM CDT Comment: IRB #[id number] Narrative This result has an attachment that is no t available. Charles Ivey M.D., Ph.D. LAB SURG PATH ORDERABLES Performing Organization Address [facility]/ZIP Code Phon e Number [facility] - [address] [place], [place] [address] [facility] [place] [address] Laboratories-[employer] [facility] [address] [facility] Type and Screen (with reflex Antibody ID) (01/10/2022 8:55 AM CDT) [facility] gist Method Time Signature ABORh O Neg Not 01/10/2022 [facility] applicable 9:48 AM CDT Antibody Negative Negative 01/10/2022 [facility] Screen 9:59 AM CDT Type & Screen 01/13/2022 01/10/2022 [facility] Expiration 23:59 9:48 AM CDT Testing Johnny DEFAULT 01/10/2022 [facility] Location 9:04 AM CDT Specimen Anatomical Collection Method Collection Time Receive d Time (Source) Location / / Volume Laterality Blood (Blood, 01/10/2022 8:55 01/10/2022 Arterial Line) AM CDT 9:04 AM CDT Resulting Agency Comment Drawn in [id number] by [email or web address] Ana Vaz M.D. LAB BLOOD BANK TEST ORDERABL ES Performing Organization Address City/[facility] Phon e Number [facility] - [address] [place], [place] [address] [facility] [place] [place] [address] Laboratories-[address] [address] MD ARTL CATH/CNULA MONITOR PERC, LDA ANE ARTERIAL LINE INSERTION (01/10/2022 8:42 AM CDT) Narrative Nicholas Higuera APRN, CRNA - 022 8:42 AM CDT Nicholas Higuera APRN, CRNA ? 01/10/2022 ??9:48 AM Invasive Catheter Date/Time: 01/10/2022 8:42 AM Performed by: Nicholas Higuera APRN, CRNA Authorized by: Luda Galindo M.D. Location: OR PROCEDURE DETAILS: Line type: arterial ?? Laterality: right Location: radial Location details: new site ? Age group: adult Catheter diameter: 20 Ga Catheter length (cm): 15 Technique: palpation ?? Monitored: yes ?? Number of attempts: 1 UNIVERSAL PROTOCOL All relevant documentation and testing w ere reviewed and available. All required blood products, implants, devic es and or special equipment were made available as applicable. Pre-proced ure verification was conducted and the correct site was marked if required. A fire risk assessment was done as applicable. The procedural time-out w as conducted prior to performing the procedure and confirmed in a procedu ral pause. PRE-PROCEDURE DETAILS: Appropriate hand hygiene, gown, cap, mas k, protective eyewear, sterile gloves, skin preparation, sterile drape, and strict aseptic technique were utilized as applicable for the procedure .: yes ?? Skin preparation: chlorhexidine ?? SEDATION / ANESTHESIA Anesthesia method: none POST-PROCEDURE DETAILS: Procedure completed successfully: yes ?? Line secured: secured with sutureless de vice Chlorhexidine disc around insertion site and under catheter with slight turn: yes ?? Complications - arterial: none Luda Galindo M.D. PROCEDURE/MINOR SURGICAL ORD ERABLES LDA ANE ENDOTRACHEAL AIRWAY (01/10/2022 8:22 AM CDT) Narrative Nicholas Higuera APRN, CRNA - 022 8:22 AM CDT Nicholas Higuera APRN, CRNA ? 01/10/2022 ??9:50 AM Airway Date/Time: 01/10/2022 8:22 AM Performed by: Nicholas Higuera APRN, CRNA Authorized by: Luda Galindo M.D. Patient location during procedure: OR / Procedure Area PROCEDURE DETAILS: Mask difficulty assessment: easy mask Final airway type: video laryngoscope Laryngeal Manipulation: no ?? Final best view of glottic structures - Cormack/Lehane Score: grade 1 ETT location: oral VL device: glide scope Oriska scope blade size: 3 Adult tube size: 7 Adult ETT distance at teeth/gum: 22 Oral tube type: standard ETT Cuffed: yes Number of attempt to successful placemen t: 1 Airway confirmation: bilateral breath so unds, positive ETCO2 and bilateral chest rise Other previous techniques attempted: non e PRE PROCEDURE DETAILS: Pre evaluation for airway management: pr ocedure Urgency: elective Preop assessment of probable difficulty: questionable / suspicious difficult airway Preoxygenation: bag valve mask SEDATION / ANESTHESIA Anesthesia method: anesthesia POST PROCEDURE DETAILS: ? Procedure outcome: successful ?? Airway event: no complications Luda Galindo M.D. ANESTHESIA ORDERABLES Sodium, Random, Urine (01/09/2022 9:35 PM CDT) athologist Signature Sodium, Random, 201 mmol/L 01/10/2022 DTL U 1:10 AM CDT Comment: ----REFERENCE VALUE---- Random urine sodium may be interpreted i n conjunction with serum sodium, using both values to calculate fractional excretion of sodium. Specimen Anatomical Collection Method Collection Time Receive d Time (Source) Location / / Volume Laterality Urine (Urine, 01/09/2022 9:35 01/09/2022 Catheter) PM CDT 10:12 PM CDT Madiha Castro M.D. LAB URINE ORDERABLES Performing Organization Address City/State/ZIP Code Phon e Number [facility] - [address] [place], [place] [address] [place] [address] Osmolality, Urine (01/09/2022 9:35 PM CDT) athologist Signature Osmolality, U 707 150 - 1150 01/09/2022 DTL mOsm/kg 10:42 PM CDT Specimen Anatomical Collection Method Collection Time Receive d Time (Source) Location / / Volume Laterality Urine (Urine, 01/09/2022 9:35 01/09/2022 Catheter) PM CDT 10:12 PM CDT Madiha Castro M.D. LAB URINE ORDERABLES Performing Organization Address City/[facility] Phon e Number [facility] - [address] [place], [place] [address] [facility] [place], [place] [address] [place] [address] SARS Coronavirus 2, RNA, Rapid POC, V Asymptomatic (01/09/2022 7:24 PM CDT) [facility] [employer] Method Time Signature SARS Undetected Undetected 01/09/2022 DTLR Coronavirus-2 7:47 PM CDT , RNA, Rapid POC, V Comment: Negative for SARS-CoV-2. The [employer] Dx COVID-19 test is a molecular watson t for SARS-CoV-2, the virus that causes COVID- 19. A Negative result means that the [employer] Dx COV ID-19 test did not detect SARS-CoV-2 virus in your sample. [employer] Dx COVID-19 test uses the Ubicom System. This test has received Emergency Use Authorization (EUA) by the U.S. Food and Drug Administration (FDA) and is used per man ufacturer instructions. Performance characteristic s were verified by [facility] in a manner consistent with CLIA requirements. Fact sheets for this Emerg ency Use Authorization (EUA) can be found at the following links: Providers: https://WorldDoc/documentation/prov iders.pdf Patients: https://[facility].Invenergy/documentation/tylor ents.pdf SARS Coronavirus 2, Source Nasopharynx DEFAULT 01/09/2022 7:47 PM CDT DTLR Specimen Anatomical Collection Method Collection Time Receive d Time (Source) Location / / Volume Laterality Varies 01/09/2022 7:24 01/09/2022 (Nasopharynx) PM CDT 7:24 PM CDT Christina Tai P.A.-C., M.S. LAB MICROBIOLOGY - GENERAL ORDERABLES Performing Organization Address City/State/ZIP Code Phon e Number PERFORMING LABS, RE[place] [address] INTERFACE Ref Interface [address] [facility] DTLR Performing Labs, [place] [address] Interface [address] [facility] (ABNORMAL) CBC without Differential (01/09/2022 6:05 PM CDT) [facility] [employer] Method Time Signature Hemoglobin 12.2 11.6 - 01/09/2022 DTL 15.0 g/dL 6:34 PM CDT Hematocrit 35.5 35.5 - 01/09/2022 DTL 44.9 % 6:34 PM CDT Erythrocytes 3.99 3.92 - 01/09/2022 DTL 5.13 6:34 PM CDT x10(12)/L MCV 89.0 78.2 - 01/09/2022 DTL 97.9 fL 6:34 PM CDT RBC Distrib Width 13.2 12.2 - 01/09/2022 DTL 16.1 % 6:34 PM CDT Platelet Count 307 157 - 371 01/09/2022 DTL x10(9)/L 6:34 PM CDT Leukocytes 10.3 (H) 3.4 - 9.6 01/09/2022 DTL x10(9)/L 6:34 PM CDT Specimen Anatomical Collection Method Collection Time Receive d Time (Source) Location / / Volume Laterality Blood (Blood, 01/09/2022 6:05 01/09/2022 Venous) PM CDT 6:27 PM CDT Christina Tai P.A.-C., M.S. LAB BLOOD ADD-ON Performing Organization Address City/[facility] Phon e Number [address] Hemoglobin A1c (01/09/2022 5:58 PM CDT) athologist Signature Hemoglobin A1c, 5.1 4.0 - 5.6 01/09/2022 DT B % 7:58 PM CDT Specimen Anatomical Collection Method Collection Time Receive d Time (Source) Location / / Volume Laterality Blood (Blood, 01/09/2022 5:58 01/09/2022 Venous) PM CDT 7:40 PM CDT Marysol Martinez M.D. LAB BLOOD ADD-ON Performing Organization Address City/[facility] Phon e Number [address] [place] [address] ECG 12 Lead (01/09/2022 4:44 PM CDT) athologist Signature Ventricular Rate 54 BPM MUSE ECG/Min MD Interval 138 ms MUSE QRSD Interval 86 ms MUSE QT Interval 424 ms MUSE QTC Interval 402 ms MUSE P [place] 27 degrees MUSE R [place] 44 degrees MUSE T Wave [place] 54 degrees MUSE Specimen Anatomical Collection Method Collection Time Receive d Time (Source) Location / / Volume Laterality 01/09/2022 4:44 01/09/2022 PM CDT 4:45 PM CDT Impressions MUSE - 01/09/2022 4:45 PM CDT Sinus bradycardia with sinus arrhythmia Otherwise normal ECG No previous ECGs available Reviewed by RAMILA Plascencia Narrative This result has an attachment that is no t available. Procedure Note Coleman Early M.D. - 01/09/2022Formatt ing of this note might be different from the original. IMPRESSION: Sinus bradycardia with sinus arrhythmia Otherwise normal ECG No previous ECGs available Reviewed by RAMILA Plascencia Christina Tai P.A.-C., M.S. ECG ORDERABLES Performing Organization Address City/State/ZIP Code Phon e Number [facility] QUICK NA MR Brain Functional Language with MD Administration (01/09/2022 12:04 PM CDT) Anatomical Region Laterality Modality Head, Brain, Neuroradiology RST LOS, Neuroradiology ARZ N/A Magnetic Resonance LOS, Neuroradiology FLA LOS Specimen (Source) Anatomical Collection Method Collection Time Re ceived Time Location / / Volume Laterality 01/09/2022 12:44 PM CDT Impressions 01/09/2022 1:35 PM CDT 1. Technically difficult examination with extensive spurious apparent activation. Left Wernicke activation is very tentatively identifie d anterolaterally to the enhancing mass. Correlation with intraoperative mapping should be conside red. 2. Considerable progression of the tumor since 11/30/2021 with signal and enhancement characteristics suggesting possible dedi fferentiation. Increased edema and mass effect. Findings discussed with Dr. Cedeno 01/09/2022 13:0 0. 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 Anatomic Findings: ??There has been subs tantial change in the appearance and size of the left fcxkncs-uphrfaju-oodxygzl mass since 03/2022. The mass demonstrates new peripheral irregular enhancement. The enhancing component litzy sures 60 x 45 x 43 mm, reflecting significant increase in the size of the mass. There are scattere d foci of internal diffusion restriction. There is surrounding vasogenic edema and signific antly increased mass effect. The medial left temporal lobe now effaces the lateral midbrain. There is slight extension of the medial left temporal lobe into the suprasellar cistern. There is new mi ld prominence of the temporal horns of the lateral ventricles. There is 11 mm of midline sh ift at the level of the internal cerebral veins. There is new internal hemorrhage and or hypervasc ularity. There is again nonenhancing T2 hyperintensity in the left thalamus. Diffusion Tensor Findings: ??There is lo ss of anisotropy of the left inferior fronto-occipital fasciculus and inferior longitudinal fas ciculus. The superior longitudinal fasciculus is not well visualized. Perfusion Findings: ??The enhancing bhumi phery demonstrates increased rCBV. Cerebrovascular Reactivity (breath hold) Findings: ??No convincing evidence of neurovascular decoupling. Functional Findings: ??The patient had d ifficulty understanding and performing the language tasks. During the training, she appeared to und erstand the general concept of the tasks with extended practice. She struggled with wendi sarah when to use the hand-held response device. There is extensive spurious apparent act ivation with each of the language tasks. Given this, there is possible Wernicke activation anterola teral to the mass (se 152/im 27, se 155/im 37). There is tentative Broca activation in approximat mary the usual location (se 152/im 27, se 155/im 46), possibly displaced anteriorly by mass ef fect. The following fMRI tasks were performed on this right-handed patient for the purpose of language localization. Technique: ??Multiple EPI/GRE time serie s were acquired and statistically evaluated with the HandInScan workstation using AFNI based correlation analysis. Training: ??The patient was trained in t he selected fMRI tasks by Dr. Coffey. ??The patient's ability to perform these tasks was assessed greta sarah the training session. 1. ??Task: ??Rhyming SMS Patient self-assessment of performance: ??Inadequate Technologist assessment of performance: ??Inadequate Accuracy: ?11.7% Average response time: ??1.7sec Head motion: ? 0.4 mm Statistical methods: ?T statis tic filtered 2. ??Task: ??Sentence completion [facility] Patient self-assessment of performance: ?Adequate Technologist assessment of performance: ??Adequate Head motion: ?0.6mm Statistical methods: ?T statistic filtered 3. ??Task: Semantic decision Patient self-assessment of performance: ?Inadequate Technologist assessment of performance: ??Inadequate Accuracy: ?0% Head motion: ? 0.6mm Statistical methods: ?T statistic filtered 4. ??Task: ??Breath hold Patient self-assessment of performance: ?Adequate Technologist assessment of performance: ??Adequate Head motion: ? 0.5mm Statistical methods: ?T statistic Procedure Note Gilberto Coffey M.D. - 01/09/2022Format ting of this note might be different from the original. 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 Anatomic Findings: There has been subst antial change in the appearance and size of the left uasuiem-sojdmxde-jwermtas mass since 03/2022. The mass demonstrates new peripheral irregular enhancement. The enhancing component litzy sures 60 x 45 x 43 mm, reflecting significant increase in the size of the mass. There are scattere d foci of internal diffusion restriction. There is surrounding vasogenic edema and signific antly increased mass effect. The medial left temporal lobe now effaces the lateral midbrain. There is slight extension of the medial left temporal lobe into the suprasellar cistern. There is new mi ld prominence of the temporal horns of the lateral ventricles. There is 11 mm of midline sh ift at the level of the internal cerebral veins. There is new internal hemorrhage and or hypervasc ularity. There is again nonenhancing T2 hyperintensity in the left thalamus. Diffusion Tensor Findings: There is los s of anisotropy of the left inferior fronto-occipital fasciculus and inferior longitudinal fas ciculus. The superior longitudinal fasciculus is not well visualized. Perfusion Findings: The enhancing perip mandeep demonstrates increased rCBV. Cerebrovascular Reactivity (breath hold) Findings: No convincing evidence of neurovascular decoupling. Functional Findings: The patient had di fficulty understanding and performing the language tasks. During the training, she appeared to und erstand the general concept of the tasks with extended practice. She struggled with understandi ng when to use the hand-held response device. There is extensive spurious apparent act ivation with each of the language tasks. Given this, there is possible Wernicke activation anterola teral to the mass (se 152/im 27, se 155/im 37). There is tentative Broca activation in approximat mary the usual location (se 152/im 27, se 155/im 46), possibly displaced anteriorly by mass ef fect. The following fMRI tasks were performed on this right-handed patient for the purpose of language localization. Technique: Multiple EPI/GRE time series were acquired and statistically evaluated with the HandInScan workstation using AFNI based correlation analysis. Training: The patient was trained in e selected fMRI tasks by Dr. Coffey. The patient's ability to perform these tasks was assessed greta sarah the training session. 1. Task: Rhyming [facility] Patient self-assessment of performance: Inadequate Technologist assessment of performance: Inadequate Accuracy: 11.7% Average response time: 1.7sec Head motion: 0.4mm Statistical methods: T statistic filtered 2. Task: Sentence completion [facility] Patient self-assessment of performance: Adequate Technologist assessment of performance: Adequate Head motion: 0.6mm Statistical methods: T statis tic filtered 3. Task: Semantic decision Patient self-assessment of performance: Inadequate Technologist assessment of performance: Inadequate Accuracy: 0% Head motion: 0.6mm Statistical methods: T statis tic filtered 4. Task: Breath hold Patient self-assessment of performance: Adequate Technologist assessment of performance: Adequate Head motion: 0.5mm Statistical methods: T statis tic IMPRESSION: 1. Technically difficult examination wit h extensive spurious apparent activation. Left Wernicke activation is very tentatively identifie d anterolaterally to the enhancing mass. Correlation with intraoperative mapping should be conside red. 2. Considerable progression of the tumor since 11/30/2021 with signal and enhancement characteristics suggesting possible dedi fferentiation. Increased edema and mass effect. Findings discussed with Dr. Cedeno 01/09/2022 13:0 0. Evangelist Salinas M.D., Ph.D. IMG MRI PROCEDURES from Last 3 Months Insurance Payer Benefit Plan Subscriber ID Effective Phone Address Typ e / Group Dates [facility] MEDICAID [id number] 2022-Prese [phone] [place]PT [place] nt [id number] [address] [address] [place] [address] Advance Directives For more information, please contact: [phone] Latest Code Status on File Code Status Date Activated Date Inactivated Comments Full Code 01/17/2022 12:28 PM 01/25/2022 2:17 PM Full Code: Discussed Full Code 01/10/2022 7:52 PM 01/17/2022 11:55 AM Full Code: Not Discussed Due to: Not medically appropriate Full Code 01/09/2022 6:01 PM 01/10/2022 7:52 PM Full Code: Not Discussed Due to: Patient not available
--- OUTSIDE RECORDS SUMMARY | 2022-03-12 14:30 | XMS_ITS | Encounter Summary ---
:1970 Author Organization [facility] Address [address] [place] [address] Care Team Providers Name Role Phone Unavailable Primary Care Provider Unavailable Reason for Visit Reason Comments 02/26/22 labs Encounter Details Date Type Department Care Team Description 02/26/2022 Clinical Communication Department of Oncology Jono Flanagan, 02/26/22 labs in [facility] cota R.NSanjuanita [address] [facility] [phone] [place], [place] (Work) [phone] Social History Tobacco Use Types Packs/Day Years [...] More than 4 times per year 01/07/2022 confucianism services? Do you belong to any clubs [...] place to sleep or slept in a group home (including now)? Education Answer Date Recorded What is the highest level of school Master's degree (e.g., M A, MS, 01/07/2022 you have completed or the highest Maulik, MEd, [employer], 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 Sex Assigned at Date Recorded Female 01/07/2022 11:11 AM CDT documented as of this encounter Miscellaneous Notes Telephone Encounter - Olivia Koenig D.N.P., Beatriz.Domingo., R.N., JASON-NOEL - 02/26/2022 1:56 PM CDT Labs Verified Telephone Encounter - Trupti Pearson - 02/26/2022 1:37 PM CDT Labs have been entered and are ready for review. documented in this encounter Plan of Treatment Upcoming Encounters Date Type Specialty Care Team Description 03/12/2022 Appointment Radiation Oncology Stephanie Gleason M.D. [address] [place] [phone] 03/12/2022 Appointment Radiation Oncology Stephanie Gleason M.D. [address] [place] [phone] 03/13/2022 Appointment Radiation Oncology Stephanie Gleason M.D. [address] [place] [phone] 03/14/2022 Appointment Radiation Oncology Stephanie Gleason M.D. [address] [place] [phone] 03/25/2022 Ancillary Procedure Ophthalmology Chas Shin M.D. [address] [place] [phone] 03/25/2022 Ancillary Procedure Ophthalmology 03/25/2022 Ancillary Procedure Ophthalmology Chas Shin M.D. [address] [place] [phone] 03/26/2022 Ancillary Procedure Ophthalmology Rebeca Valle, Tu.A.-C., M.S. [address] [place] [phone] 03/26/2022 Comprehensive Visit Ophthalmology Chas Shin M.D. [address] [place] [phone] 03/29/2022 Comprehensive Visit Endocrinology Farzana Allen M.D. [address] [place] [phone] 04/04/2022 Appointment Radiology Christina Tai, P.A.-C., M.S. [address] [place] [phone] 04/04/2022 Office Visit Oncology Vini Maki M.D., Ph.D. [address] [place] [phone] 04/04/2022 Office Visit Neurological Surgery Charles Ivey M.D., Ph.D. [address] [place] [phone] 05/03/2022 Comprehensive Visit Clinical Genomics Sanya Mehta M.D. [address] [place] [phone] 05/06/2022 Clinical Communication Admitting/Central Scheduling 05/09/2022 Office Visit Oncology Farzana Allen M.D. [address] [place] [address] [phone] documented as of this encounter Procedures Procedure Name Priority Date/Time Associated Diagnosis Comme nts HEMATOLOGY/ONCOLOGY Routine 02/26/2022 11:46 AM R esults for this - BLOOD, EXTERNAL CDT procedure are in LAB RESULTS the results section. documented in this encounter Results (ABNORMAL) Hematology/Oncology - Blood, External Lab Results (02/26/2022 11:46 AM CDT) Analysis Performed At Patho logist Time Signature EXT Hemoglobin 11.7 (A) 12 - 16 OTHER (SPECIFY IN WETLAND SCIENTIST) EXT Leukocytes 4.3 (A) 4.5 - 11 OTHER (SPECIFY IN WETLAND SCIENTIST) EXT Absolute 2.8 1.7 - 7.0 OTHER Neutrophil (SPECIFY IN Count WETLAND SCIENTIST) EXT Lymphs 1.10 0.9 - 2.90 OTHER Absolute (SPECIFY IN WETLAND SCIENTIST) EXT Platelet 507 (A) 140 - 440 OTHER Count (SPECIFY IN WETLAND SCIENTIST) Specimen (Source) Anatomical Collection Method Collection Time Re ceived Time Location / / Volume Laterality Blood 02/26/2022 11:46 AM CDT Historical Provider LAB BLOOD NON ADD-ON Performing Organization Address City/State/ZIP Code Phon e Number OTHER (SPECIFY IN WETLAND SCIENTIST) OTHER (SPECIFY IN WETLAND SCIENTIST) N/A documented in this encounter Visit Diagnoses Not on filedocumented in this encounter
--- OUTSIDE RECORDS SUMMARY | 2022-03-12 14:30 | XMS_ITS | Encounter Summary ---
:1970 Author Organization [facility] Address [address] [place] [address] Care Team Providers Name Role Phone Unavailable Primary Care Provider Unavailable Reason for Visit Reason Comments Med Refill Encounter Details Date Type Department Care Team Description 02/26/2022 Clinical Communication Department of Oncology Jono Flanagan, Med Refill in [facility] R.N. [address] [facility] [phone] [place], [place] (Work) [phone] Social History Tobacco Use Types Packs/Day Years [...] or relatives? How often do you attend muslim or More than 4 times per year 01/07/2022 sikh services? Do you belong to any clubs or No 01/07/2022 organizations such as muslim groups, unions, fraternal or athletic groups, or [...] place to sleep or slept in a usp (including now)? Education Answer Date Recorded What is the highest level of school Master's degree (e.g., M A, MS, 01/07/2022 you have completed or the highest Maulik, MEd, MUSEUM DIRECTOR, 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 Sex Assigned at Date Recorded Female 01/07/2022 11:11 AM CDT documented as of this encounter Miscellaneous Notes Telephone Encounter - Michael Melton - 02/26/2022 2:19 PM CDT Drug: Temodar Dose: 140mg and/or 20 mg depending on 02/26 lab results Pharmacy name & location: [facility] Care Team: Brain How many days of medication left? 1 Thank you, Michael RST ONC [facility] AA POD 1 documented in this encounter Plan of Treatment Upcoming Encounters Date Type Specialty Care Team Description 03/12/2022 Appointment Radiation Oncology Stephanie Gleason M.D. 200 [place] [phone] 03/12/2022 Appointment Radiation Oncology Stephanie Gleason M.D. [address] [place] [phone] 03/13/2022 Appointment Radiation Oncology Stephanie Gleason M.D. [address] [place] [phone] 03/14/2022 Appointment Radiation Oncology Stephanie Gleason M.D. [address] [place] [phone] 03/25/2022 Ancillary Procedure Ophthalmology Chas Shin M.D. [address] [place] [phone] 03/25/2022 Ancillary Procedure Ophthalmology 03/25/2022 Ancillary Procedure Ophthalmology Chas Shin M.D. [address] [place] [phone] 03/26/2022 Ancillary Procedure Ophthalmology Rebeca Valle P.A.-C., M.S. [address] [place] [phone] 03/26/2022 Comprehensive Visit Ophthalmology Chas Shin M.D. [address] [place] [phone] 03/29/2022 Comprehensive Visit Endocrinology Farzana Allen M.D. [address] [place] [phone] 04/04/2022 Appointment Radiology Christina Tai P.A.-Rusty., M.S. [address] [place] [phone] 04/04/2022 Office Visit Oncology Vini Maki M.D., Ph.D. [address] [place] [phone] 04/04/2022 Office Visit Neurological Surgery Charles Ivey M.D., Ph.D. [address] [place] [address] [phone] 05/03/2022 Comprehensive Visit Clinical Genomics Sanya Mehta M.D. [address] [place] [phone] 05/06/2022 Clinical Communication Admitting/Central Scheduling 05/09/2022 Office Visit Oncology Farzana Allen M.D. [address] [place] [phone] documented as of this encounter Visit Diagnoses Not on filedocumented in this encounter
--- OUTSIDE RECORDS SUMMARY | 2022-03-12 14:30 | XMS_ITS | Encounter Summary ---
:1970 Author Organization [facility] Address [address] [place] [address] Care Team Providers Name Role Phone Unavailable Primary Care Provider Unavailable Encounter Details Date Type Department Care Team Description 02/22/2022 Orders Only Department of Farzana Allen Astrocytoma (HCC) (Primary Dx); Oncology in [place], [place], [place] [address] [facility] [address] [place] [phone] Social History Tobacco Use Types Packs/Day Years [...] or relatives? How often do you attend adventism or More than 4 times per year 01/07/2022 confucianism services? Do you belong to any clubs or No 01/07/2022 organizations such as adventism groups, unions, fraternal or athletic groups, or [...] place to sleep or slept in a m[facility] (including now)? Education Answer Date Recorded What is the highest level of school Master's degree (e.g., M Domingo, MS, 01/07/2022 you have completed or the highest Maulik, MEd, BAND ATTACHER, 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 Sex Assigned at Date Recorded Female 01/07/2022 11:11 AM CDT documented as of this encounter Plan of Treatment Upcoming Encounters Date Type Specialty Care Team Description 03/12/2022 Appointment Radiation Oncology Stephanie Gleason M.D. [address] [place] [phone] 03/12/2022 Appointment Radiation Oncology Stephanie Gleason M.D. [address] [place] [phone] 03/13/2022 Appointment Radiation Oncology Stephanie Gleason M.D. [address] [place] [address] [phone] 03/14/2022 Appointment Radiation Oncology Stephanie Gleason M.D. [address] [place] [address] [phone] 03/25/2022 Ancillary Procedure Ophthalmology Chas Shin M.D. [address] [place] [address] [phone] 03/25/2022 Ancillary Procedure Ophthalmology 03/25/2022 Ancillary Procedure Ophthalmology Chas Shin M.D. [address] [place] [phone] 03/26/2022 Ancillary Procedure Ophthalmology Rebeca Valle P.A.-C., M.S. [address] [place] [address] [phone] 03/26/2022 Comprehensive Visit Ophthalmology Chas Shin M.D. [address] [place] [phone] 03/29/2022 Comprehensive Visit Endocrinology Farzana Allen M.D. [address] [place] [phone] 04/04/2022 Appointment Radiology Christina Tai P.A.-Rusty., M.S. [address] [place] [address] [phone] 04/04/2022 Office Visit Oncology Vini Maki M.D., Ph.D. [address] [place] [phone] 04/04/2022 Office Visit Neurological Surgery Charles Ivey M.D., Ph.D. [address] [place] [phone] 05/03/2022 Comprehensive Visit Clinical Genomics Sanya Mehta M.D. [address] [place] [phone] 05/06/2022 Clinical Communication Admitting/Central Scheduling 05/09/2022 Office Visit Oncology Farzana Allen M.D. [address] [place] [phone] documented as of this encounter Visit Diagnoses Diagnosis Astrocytoma (HCC) - Primary Hyperthyroidism documented in this encounter
--- OUTSIDE RECORDS SUMMARY | 2022-03-12 14:30 | XMS_ITS | Encounter Summary ---
:1970 Author Organization [facility] Address [address] [place] [address] Care Team Providers Name Role Phone Unavailable Primary Care Provider Unavailable Reason for Visit Radiation Therapy (Routine) - Authorized Specialty Diagnoses / Procedures Referred By Contact Refer red To Contact Diagnoses Malignant Neoplasm Of Brain (HCC) Stephanie Gleason M.D. [facility] Radiation Oncology Procedures Prior Auth Rad Tx [place] IMRT COMPLEX [address] [place] [phone] [address] [facility] [place] [place] [address] Referral ID Status Reason Start Date Expiration Date Visits V isits Requested Authorized [id number] Authorized 01/31/2022 12/31/2022 30 30 Encounter Details Date Type Department Care Team Description 02/28/2022 Hospital Encounter Department of Radiation Jacquelyn Gleason I., [place] [address] [facility] [address] [place] [phone] Social History Tobacco Use Types Packs/Day Years [...] or relatives? How often do you attend mosque or More than 4 times per year 01/07/2022 taoist services? Do you belong to any clubs or No 01/07/2022 organizations such as mosque groups, unions, fraternal or athletic groups, or [...] place to sleep or slept in a assisted (including now)? Education Answer Date Recorded What is the highest level of school Master's degree (e.g., [address], MS, 01/07/2022 you have completed or the highest Maulik, MEd, MARKETING PLANNER, 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 Sex Assigned at Date Recorded Female 01/07/2022 11:11 AM CDT documented as of this encounter Plan of Treatment Upcoming Encounters Date Type Specialty Care Team Description 03/12/2022 Appointment Radiation Oncology Stephanie Gleason M.D. 200 [place] [phone] 03/12/2022 Appointment Radiation Oncology Stephanie Gleason M.D. [address] [place] [phone] 03/13/2022 Appointment Radiation Oncology Stephanie Gleason M.D. [address] [place] [phone] 03/14/2022 Appointment Radiation Oncology Stephanie Gleason M.D. [address] [place] [phone] 03/25/2022 Ancillary Procedure Ophthalmology Chas Shin M.D. [address] [place] [phone] 03/25/2022 Ancillary Procedure Ophthalmology 03/25/2022 Ancillary Procedure Ophthalmology Chas Shin M.D. [address] [place] [phone] 03/26/2022 Ancillary Procedure Ophthalmology Rebeca Valle P.A.-Rusty., M.S. [address] [place] [phone] 03/26/2022 Comprehensive Visit Ophthalmology Chas Shin M.D. [address] [place] [address] [phone] 03/29/2022 Comprehensive Visit Endocrinology Farzana Allen M.D. [address] [place] [phone] 04/04/2022 Appointment Radiology Christina Tai P.A.-Rusty., M.S. [address] [place] [phone] 04/04/2022 Office Visit Oncology Vini Maki M.D., Ph.D. [address] [place] [phone] 04/04/2022 Office Visit Neurological Surgery Charles Ivey M.D., Ph.D. [address] [place] [phone] 05/03/2022 Comprehensive Visit Clinical Genomics Sanya Mehta M.D. [address] [place] [phone] 05/06/2022 Clinical Communication Admitting/Central Scheduling 05/09/2022 Office Visit Oncology Farzana Allen M.D. [address] [place] [phone] documented as of this encounter Visit Diagnoses Not on filedocumented in this encounter
--- OUTSIDE RECORDS SUMMARY | 2022-03-12 14:30 | XMS_ITS | Encounter Summary ---
:1970 Author Organization [facility] Address [address] [place] [address] Care Team Providers Name Role Phone Unavailable Primary Care Provider Unavailable Reason for Visit Reason Comments Genetic Testing Results Encounter Details Date Type Department Care Team Description 02/27/2022 Documentation Department of Medical Sejal Resendiz Genetic Testing Genetics in S, M.S., [facility] Results [place], [place] [address] [facility] [address] [place] [phone] Social History Tobacco Use Types Packs/Day Years [...] or relatives? How often do you attend nondenominational or More than 4 times per year 01/07/2022 taoist services? Do you belong to any clubs or No 01/07/2022 organizations such as nondenominational groups, unions, fraternal or athletic groups, or [...] place to sleep or slept in a penitentiary (including now)? Education Answer Date Recorded What is the highest level of school Master's degree (e.g., M A, MS, 01/07/2022 you have completed or the highest Maulik, MEd, WALLPAPER EMBOSSER HELPER, 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 Sex Assigned at Date Recorded Female 01/07/2022 11:11 AM CDT documented as of this encounter Progress Notes Sejal Resendiz M.S., [facility] [place] 02/27/2022 1:42 PM CDT Images from the original note were not included. Addendum created 03/01 to include results of reflex testing. No additional variants were identified. CHIEF COMPLAINT/PURPOSE OF VISIT Phone call to discuss positive genetic test results. HISTORY OF PRESENT ILLNESS Ms. 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 At that consultation, she elected to pursue CHEK2 analysis with reflex to the Multi-Cancer + Nervous system/brain cancer panel from [facility]. IMPRESSION/REPORT/PLAN RESULTS I spoke with Ms. Cedillo today regarding her genetic test results. 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 This variant had been previously identified in her mother. Previous somatic testing also identified this variant in , however, the testing was unable to confirm if the variant was germline (inherited). No additional variants were identified through this testing, meaning that no variants that explain her glioblastoma diagnosis have been identified at this time. The fact that no pathogenic mutations were detected in the genes related to glioblastoma for which Ms. Cedillo was tested is reassuring. However, the fact that a pathogenic mutation was not identified does not eliminate the possibility that she and/or her family members have a hereditary susceptibility to glioblastoma or to cancer in general aside from the known CHEK2 familial mutation. Genetic testing has less than 100% sensitivity, meaning there is a small possibility that another pathogenic mutation exists in one of the genes analyzed which cannot be identified by current testing methodology. Itis also possible that pathogenic mutations in cancer susceptibility genes which have not yet been discovered may be contributing to her glioblastoma. CANCER RISKS The CHEK2 gene is associated with an increased risk for breast, colon, thyroid, and prostate cancer. Women with a pathogenic variant in CHEK2 have an estimated 20-44% lifetime chance to develop breast cancer. Estimates of cancer risk are still strongly influenced by the family history of cancer, whichshould remain an important tool in predicting cancer risk and management. Individuals with a pathogenic variant in CHEK2 have an estimated 5-10% lifetime risk to develop colorectal cancer. Other risks associated with CHEK2 include an increased risk to develop thyroid cancer and prostate cancer. However, no specific lifetime risk estimates have been established. Additionally, there is preliminary evidence supporting a correlation with CHEK2 and an increased risk to develop other cancer types including male breast cancer, renal cancer, urinary tract cancer, ovarian cancer, and melanoma; however, the available evidence is insufficient to make a determination reg arding these relationships. Research regarding the cancer risks associated with CHEK2 is ongoing, and these cancer risks will likely become more well-defined over time. At this time there is no confirmed association between germline CHEK2 variants and glioblastoma/astrocytoma. As such, there is no standard treatment or screening recommendations for glioblastoma for individuals carrying a CHEK2 mutation. Though Ms. Cedillo has tested positive for the CHEK2 mutation, it is difficult to determine whether it played a causative role in her diagnosis. Research on CHEK2 iscontinually underway and our interpretation of the cancer risks associated with CHEK2 mutations is likely to evolve over time. It is possible that, in the future, we may learn that this CHEK2 mutation did increase her risk for glioblastoma. MEDICAL MANAGEMENT We reviewed the medical management guidelines for individuals with a pathogenic variant in CHEK2. Relatives who are at 50% risk of having a pathogenic variant in CHEK2 are encouraged to be screened as though they have the variant until proven otherwise by a negative genetic test. FEMALE BREAST CANCER RISK MANAGEMENT The National Comprehensive Cancer Network (v.2.2021) recommends the following for individuals with apathogenic variant in CHEK2: (1) Women should be familiar with their breasts and promptly report changes to their healthcare provider. Periodic, consistent breast self-examinations may help to facilitate breast awareness. (2) Annual screening mammograms with consideration of tomosynthesis are recommended beginning at age 40. This may be modified based on family history (typically beginning screening 5-10 years earlier than the youngest diagnosis in the family but not later than 40). (3) Consideration of annual breast MRIs beginning at age 40. This may also be modified based on family history. (4) The option of risk-reducing bilateral mastectomies may be considered, although evidence is insufficient and family history should be considered. COLORECTAL CANCER RISK MANAGEMENT For colorectal cancer screening, NCCN guidelines (v..2021) recommend the following: (1) Colonoscopy every 5 years beginning at age 40 when there is no first degree relative affected bycolorectal cancer. (2) If there is a first degree relative with colorectal cancer, colonoscopy screening should be doneevery 5 years beginning at age 40 or 10 years prior to their first-degree relative's age at cancer diagnosis. Family members who test negative for the familial CHEK2 variant may still remain at increased risk for breast cancer based on the family history. It is recommended that women in this family with a first- or second-degree relative diagnosed with breast cancer undergo breast cancer screening beginning 10 years younger than the earliest age of a breast cancer diagnosis in the family, but no later than age 40. Screening may include breast self-examinations, clinical breast examinations, mammograms, and possibly breast MRIs, to be performed as directed by their physicians. Currently, there are no specific screening guidelines available for individuals with a pathogenic variant in CHEK2 with respect to prostate, thyroid, or male breast cancer. Screening for these cancers should be based on family history, if indicated. These screening recommendations are based on national screening guidelines and should be used in thecontext of the patient's personal and family history of disease. Final screening recommendations maybe deferred to the discretion of the managing physician. Other screening recommendations, such as those made by the [place] [employer], do remain appropriate. These screening recommendations may change if there are changes to the patient's personal and/or family history. Medical management guidelines for CHEK2 will likely business change manager time. We recommend that patients contact our clinic regularly for updates in medical management guidelines. ADDITIONAL PERSONAL AND FAMILY SCREENING RECOMMENDATIONS Given that a hereditary susceptibility to glioblastoma has not been identified by genetic testing, it is generally recommended to screen patients and their family members based on their personal and/orfamily histories of cancer. It is important for Ms. Cedillo to continue to follow the treatment and any future screening recommendations as provided by her physicians. Based on the patient's personal history of glioblastoma, her close relatives remain at an elevated empiric risk for glioblastoma, as well. Individuals in this family with a first- or second-degree relative diagnosed with glioblastoma/astrocytoma may remain at increased risk for this cancer given their family history. These individuals would be advised to share their family history with their care providers and discuss their screening options with their care providers. Final screening recommendations should be deferred to the discretion of the managing physician. Other screening recommendations, such as those made by the [employer] [employer], do remain appropriate. RISKS TO RELATIVES First-degree relatives, including siblings, children and parents, of an individual with a pathogenicvariant in CHEK2 have a 50% risk of carrying the same CHEK2 variant. More distant relatives, such asaunts, uncles, cousins and grandparents, may also be at risk. Both men and women are equally likely to carry this variant. Those who do not carry this variant cannot pass it on to their children. Genetic counseling is recommended for Ms. Cedillo's family members and genetic testing is available to determine if they carry the familial pathogenic variant in CHEK2. I encouraged Ms. Cedillo to share the information we discussed today, as well as her genetic test report, with her family members. To find a genetic counselor in their area, family members can visit the website www.[employer].License Acquisitions. We will also provide a family letter in this regard. RESOURCES The organization [employer] (Facing Our Risk for Cancer [employer]ow[employer]) has the mission of improving the livesof individuals and families affected by hereditary cancer. The website for this organization is: www.[employer].org. PLAN Ms. 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 We will mail Ms. Cedillo: (1) a copy of this note, (2) her genetic test report, (3) relevant NCCN guidelines, and (4) a family letter. It was a pleasure to meet Ms. Cedillo; she is certainly welcome to contact me with any additional questions. PATIENT EDUCATION: All of the above was explained in detail with the patient who verbalized understanding. There were no apparent barriers to learning and understanding. The patient's questions were answered. . Sejal Resendiz M.S., [facility] - 02/27/2022 1:42 PM CDT I attempted to reach by phone today to discuss her genetic testing results but reached her voicemail. A generic message was left requesting she call me back at her earliest convenience at [phone]. I will attempt to reach her two more times in the coming days. As always, she is welcome to contact me with any questions in the future. Electronically signed by Sejal Resendiz M.S. [facility] [place] 03/08/2022 2:42 PM CDT documented in this encounter Plan of Treatment Upcoming Encounters Date Type Specialty Care Team Description 03/12/2022 Appointment Radiation Oncology Stephanie Gleason M.D. [address] [place] [address] [phone] 03/12/2022 Appointment Radiation Oncology Stephanie Gleason M.D. [address] [place] [address] [phone] 03/13/2022 Appointment Radiation Oncology Stephanie Gleason M.D. [address] [place] [address] [phone] 03/14/2022 Appointment Radiation Oncology Stephanie Gleason M.D. [address] [place] [address] [phone] 03/25/2022 Ancillary Procedure Ophthalmology Chas Shin M.D. [address] [place] [phone] 03/25/2022 Ancillary Procedure Ophthalmology 03/25/2022 Ancillary Procedure Ophthalmology Chas Shin M.D. [address] [place] [phone] 03/26/2022 Ancillary Procedure Ophthalmology Rebeca Valle P.A.-C., M.S. [address] [place] [phone] 03/26/2022 Comprehensive Visit Ophthalmology Chas Shin M.D. [address] [place] [phone] 03/29/2022 Comprehensive Visit Endocrinology Farzana Allen M.D. [address] [place] [phone] 04/04/2022 Appointment Radiology Christina Tai P.A.-C., M.S. [address] [place] [phone] 04/04/2022 Office Visit Oncology Vini Maki M.D., Ph.D. [address] [place] [phone] 04/04/2022 Office Visit Neurological Surgery Charels Ivey M.D., Ph.D. [address] [place] [address] [phone] 05/03/2022 Comprehensive Visit Clinical Genomics Sanya Mehta M.D. [address] [place] [address] [phone] 05/06/2022 Clinical Communication Admitting/Central Scheduling 05/09/2022 Office Visit Oncology Farzana Allen M.D. [address] [place] [phone] documented as of this encounter Visit Diagnoses Not on filedocumented in this encounter
--- OUTSIDE RECORDS SUMMARY | 2022-03-12 14:30 | XMS_ITS | Encounter Summary ---
:1970 Author Organization [facility] Address [address] [place] [address] Care Team Providers Name Role Phone Unavailable Primary Care Provider Unavailable Reason for Visit Radiation Therapy (Routine) - Authorized Specialty Diagnoses / Procedures Referred By Contact Refer red To Contact Diagnoses Malignant Neoplasm Of Brain (HCC) Stephanie Gleason M.D. [facility] Radiation Oncology Procedures Prior Auth Rad Tx [place] IMRT COMPLEX [address] [place] [address] 18[address] [facility] [address] Referral ID Status Reason Start Date Expiration Date Visits V isits Requested Authorized [id number] Authorized 01/31/2022 12/31/2022 30 30 Encounter Details Date Type Department Care Team Description 02/21/2022 Hospital Encounter Department of Radiation Jacquelyn Gleason I., [place]cology [place] [address] [facility] [address] [place] [address] [phone] Social History Tobacco Use Types Packs/Day Years [...] or relatives? How often do you attend confucianism or More than 4 times per year 01/07/2022 yazdanism services? Do you belong to any clubs or No 01/07/2022 organizations such as confucianism groups, unions, fraternal or athletic groups, or [...] place to sleep or slept in a long-term (including now)? Education Answer Date Recorded What is the highest level of school Master's degree (e.g., [address] [address], [place], 01/07/2022 you have completed or the highest Maulik, MEd, CHARGER OPERATOR, 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 Sex Assigned at Date Recorded Female 01/07/2022 11:11 AM CDT documented as of this encounter Plan of Treatment Upcoming Encounters Date Type Specialty Care Team Description 03/12/2022 Appointment Radiation Oncology Stephanie Gleason M.D. 200 [place] [phone] 03/12/2022 Appointment Radiation Oncology Stephanie Gleason M.D. [address] [place] [phone] 03/13/2022 Appointment Radiation Oncology Stephanie Gleason M.D. [address] [place] [phone] 03/14/2022 Appointment Radiation Oncology Stephanie Gleason M.D. [address] [place] [phone] 03/25/2022 Ancillary Procedure Ophthalmology Chas Shin M.D. [address] [place] [phone] 03/25/2022 Ancillary Procedure Ophthalmology 03/25/2022 Ancillary Procedure Ophthalmology Chas Shin M.D. [address] [place] [phone] 03/26/2022 Ancillary Procedure Ophthalmology Rebeca Valle P.A.-Rusty., M.S. [address] [place] [phone] 03/26/2022 Comprehensive Visit Ophthalmology Chas Shin M.D. [address] [place] [phone] 03/29/2022 Comprehensive Visit Endocrinology Farzana Allen M.D. [address] [place] [phone] 04/04/2022 Appointment Radiology Christina Tai P.A.-Rusty., M.S. [address] [place] [phone] 04/04/2022 Office Visit Oncology Vini Maki M.D., Ph.D. [address] [place] [phone] 04/04/2022 Office Visit Neurological Surgery Charles Ivey M.D., Ph.D. [address] [place] [phone] 05/03/2022 Comprehensive Visit Clinical Genomics Sanya Mehta M.D. [address] [place] [phone] 05/06/2022 Clinical Communication Admitting/Central Scheduling 05/09/2022 Office Visit Oncology Farzana Allen M.D. [address] [place] [phone] documented as of this encounter Visit Diagnoses Not on filedocumented in this encounter
--- OUTSIDE RECORDS SUMMARY | 2022-03-12 14:30 | XMS_ITS | Encounter Summary ---
:1970 Author Organization [facility] Address [address] [place] [address] Care Team Providers Name Role Phone Unavailable Primary Care Provider Unavailable Reason for Visit Radiation Therapy (Routine) - Authorized Specialty Diagnoses / Procedures Referred By Contact Refer red To Contact Diagnoses Malignant Neoplasm Of Brain (HCC) Stephanie Gleason M.D. [facility] Radiation Oncology Procedures Prior Auth Rad Tx [place] IMRT COMPLEX [address] [place] [address] 1821 [facility] [place] [address] Referral ID Status Reason Start Date Expiration Date Visits V isits Requested Authorized [id number] Authorized 01/31/2022 12/31/2022 30 30 Encounter Details Date Type Department Care Team Description 02/20/2022 Hospital Encounter Department of Radiation Jacquelyn Gleason I., [place]cology [place] [address] [facility] [address] [place] [phone] Social History Tobacco Use Types Packs/Day Years [...] or relatives? How often do you attend catholic or More than 4 times per year 01/07/2022 pentecostal services? Do you belong to any clubs or No 01/07/2022 organizations such as catholic groups, unions, fraternal or athletic groups, or [...] place to sleep or slept in a jail (including now)? Education Answer Date Recorded What is the highest level of school Master's degree (e.g., [address], [place], 01/07/2022 you have completed or the highest Maulik, MEd, KILN PACKER, 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 Sex Assigned at Date Recorded Female 01/07/2022 11:11 AM CDT documented as of this encounter Plan of Treatment Upcoming Encounters Date Type Specialty Care Team Description 03/12/2022 Appointment Radiation Oncology Stephanie Gleason M.D. 200 [place] [phone] 03/12/2022 Appointment Radiation Oncology Stephanie Gleason M.D. [address] [place] [phone] 03/13/2022 Appointment Radiation Oncology Stephanie Gleason M.D. [address] [place] [phone] 03/14/2022 Appointment Radiation Oncology Stephanie Gleason M.D. [address] [place] [phone] 03/25/2022 Ancillary Procedure Ophthalmology Chas Shin M.D. [address] [place] [phone] 03/25/2022 Ancillary Procedure Ophthalmology 03/25/2022 Ancillary Procedure Ophthalmology Chas Shin M.D. [address] [place] [phone] 03/26/2022 Ancillary Procedure Ophthalmology Rebeca Valle P.A.-Rusty., M.S. [address] [place] [phone] 03/26/2022 Comprehensive Visit Ophthalmology Chas Shin M.D. [address] [place] [phone] 03/29/2022 Comprehensive Visit Endocrinology Farzana Allen M.D. [address] [place] [phone] 04/04/2022 Appointment Radiology Christina Tai P.A.-Rusty., M.S. [address] [place] [phone] 04/04/2022 Office Visit Oncology Vini Maki M.D., Ph.D. [address] [place] [phone] 04/04/2022 Office Visit Neurological Surgery Charlse Ivey M.D., Ph.D. [address] [place] [phone] 05/03/2022 Comprehensive Visit Clinical Genomics Sanya Mehta M.D. [address] [place] [phone] 05/06/2022 Clinical Communication Admitting/Central Scheduling 05/09/2022 Office Visit Oncology Farzana Allen M.D. [address] [place] [phone] documented as of this encounter Visit Diagnoses Not on filedocumented in this encounter
--- OUTSIDE RECORDS SUMMARY | 2022-03-12 14:30 | XMS_ITS | Encounter Summary ---
:1970 Author Organization [facility] Address [address] [place] [address] Care Team Providers Name Role Phone Unavailable Primary Care Provider Unavailable Reason for Visit Radiation Therapy (Routine) - Authorized Specialty Diagnoses / Procedures Referred By Contact Refer red To Contact Diagnoses Malignant Neoplasm Of Brain (HCC) Stephanie Gleason M.D. [facility] Radiation Oncology Procedures Prior Auth Rad Tx [place] IMRT COMPLEX [address] [place] [address] 1821 [facility] [address] Referral ID Status Reason Start Date Expiration Date Visits V isits Requested Authorized [id number] Authorized 01/31/2022 12/31/2022 30 30 Encounter Details Date Type Department Care Team Description 02/22/2022 Hospital Encounter Department of Radiation Jacquelyn Gleason I., [place]cology [place] [address] [facility] [address] [place] [phone] Social History Tobacco Use Types Packs/Day Years [...] or relatives? How often do you attend quaker or More than 4 times per year 01/07/2022 rastafarian services? Do you belong to any clubs or No 01/07/2022 organizations such as quaker groups, unions, fraternal or athletic groups, or [...] have completed or the highest Maulik, MEd, AUDIT DIRECTOR, 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 Sex Assigned at Date Recorded Female 01/07/2022 11:11 AM CDT documented as of this encounter Plan of Treatment Upcoming Encounters Date Type Specialty Care Team Description 03/12/2022 Appointment Radiation Oncology Stephanie Gleason M.D. 200 [place] [phone] 03/12/2022 Appointment Radiation Oncology Stephanie Gleason M.D. [address] [place] [phone] 03/13/2022 Appointment Radiation Oncology Stephanie Gleason M.D. [address] [place] [phone] 03/14/2022 Appointment Radiation Oncology Stephanie Gleason M.D. [address] [place] [phone] 03/25/2022 Ancillary Procedure Ophthalmology Chas Shin M.D. [address] [place] [phone] 03/25/2022 Ancillary Procedure Ophthalmology 03/25/2022 Ancillary Procedure Ophthalmology Chas Shin M.D. [address] [place] [phone] 03/26/2022 Ancillary Procedure Ophthalmology Rebeca Valle P.A.-Rusty., M.S. [address] [place] [phone] 03/26/2022 Comprehensive Visit Ophthalmology Chas Shin M.D. [address] [place] [phone] 03/29/2022 Comprehensive Visit Endocrinology Farzana Allen M.D. [address] [place] [phone] 04/04/2022 Appointment Radiology Christina Tai P.A.-Rusty., M.S. [address] [place] [phone] 04/04/2022 Office Visit Oncology Vini Maki M.D., Ph.D. [address] [place] [phone] 04/04/2022 Office Visit Neurological Surgery Charles Ivey M.D., Ph.D. [address] [place] [phone] 05/03/2022 Comprehensive Visit Clinical Genomics Sanya Mehta M.D. [address] [place] [phone] 05/06/2022 Clinical Communication Admitting/Central Scheduling 05/09/2022 Office Visit Oncology Farznaa Allen M.D. [address] [place] [phone] documented as of this encounter Visit Diagnoses Not on filedocumented in this encounter
--- OUTSIDE RECORDS SUMMARY | 2022-03-12 14:30 | XMS_ITS | Encounter Summary ---
:1970 Author Organization [facility] Address [address] [place] [address] Care Team Providers Name Role Phone Unavailable Primary Care Provider Unavailable Reason for Visit Radiation Therapy (Routine) - Authorized Specialty Diagnoses / Procedures Referred By Contact Refer red To Contact Diagnoses Malignant Neoplasm Of Brain (HCC) Stephanie Gleason M.D. [facility] Radiation Oncology Procedures Prior Auth Rad Tx [place] IMRT COMPLEX [address] [place] [address] 1821 [facility] [place] [address] Referral ID Status Reason Start Date Expiration Date Visits V isits Requested Authorized [id number] Authorized 01/31/2022 12/31/2022 30 30 Encounter Details Date Type Department Care Team Description 02/26/2022 Hospital Encounter Department of Radiation Jacquelyn Gleason I., [place]cology [place] [address] [facility] [address] [place] [phone] Social History Tobacco Use Types Packs/Day Years [...] or relatives? How often do you attend anglican or More than 4 times per year 01/07/2022 gnosticism services? Do you belong to any clubs or No 01/07/2022 organizations such as anglican groups, unions, fraternal or athletic groups, or [...] level of school Master's degree (e.g., Beatriz [employer]ne, [place], 01/07/2022 you have completed or the highest Maulik, MEd, SCUBA DIVING INSTRUCTOR, 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 Sex Assigned at Date Recorded Female 01/07/2022 11:11 AM CDT documented as of this encounter Plan of Treatment Upcoming Encounters Date Type Specialty Care Team Description 03/12/2022 Appointment Radiation Oncology Stephanie Gleason M.D. 200 [place] [phone] 03/12/2022 Appointment Radiation Oncology Stephanie Gleason M.D. [address] [place] [phone] 03/13/2022 Appointment Radiation Oncology Stephanie Gleason M.D. [address] [place] [phone] 03/14/2022 Appointment Radiation Oncology Stephanie Gleason M.D. [address] [place] [phone] 03/25/2022 Ancillary Procedure Ophthalmology Chas Shin M.D. [address] [place] [phone] 03/25/2022 Ancillary Procedure Ophthalmology 03/25/2022 Ancillary Procedure Ophthalmology Chas Shin M.D. [address] [place] [phone] 03/26/2022 Ancillary Procedure Ophthalmology Rebeca Valle P.A.-Rusty., M.S. [address] [place] [phone] 03/26/2022 Comprehensive Visit Ophthalmology Chas Shin M.D. [address] [place] [phone] 03/29/2022 Comprehensive Visit Endocrinology Farzana Allen M.D. [address] [place] [phone] 04/04/2022 Appointment Radiology Christina Tai P.A.-Rusty., M.S. [address] [place] [phone] 04/04/2022 Office Visit Oncology Vini Maki M.D., Ph.D. [address] [place] [phone] 04/04/2022 Office Visit Neurological Surgery Charles Ivey M.D., Ph.D. [address] [place] [phone] 05/03/2022 Comprehensive Visit Clinical Genomics Sanya Mehta M.D. [address] [place] [phone] 05/06/2022 Clinical Communication Admitting/Central Scheduling 05/09/2022 Office Visit Oncology Farzana Allen M.D. [address] [place] [phone] documented as of this encounter Visit Diagnoses Not on filedocumented in this encounter
--- OUTSIDE RECORDS SUMMARY | 2022-03-12 14:30 | XMS_ITS | Encounter Summary ---
:1970 Author Organization [facility] Address [address] [place] [id number] Care Team Providers Name Role Phone Unavailable Primary Care Provider Unavailable Reason for Referral Radiation Therapy (Routine) - Authorized Specialty Diagnoses / Procedures Referred By Contact Refer red To Contact Diagnoses Malignant Neoplasm Of Brain (HCC) Stephanie Gleason M.D. [facility] Radiation Oncology Procedures Management Visit [address] [facility] [place], [place] [phone] [place] [address] Referral ID Status Reason Start Date Expiration Date Visits V isits Requested Authorized [id number] Authorized 12/31/2021 12/31/2022 10 10 Reason for Visit Radiation Therapy (Routine) - Authorized Specialty Diagnoses / Procedures Referred By Contact Refer red To Contact Diagnoses Malignant Neoplasm Of Brain (HCC) Stephanie Gleason M.D. [facility] Radiation Oncology Procedures Management Visit [address] [place] [address] [phone] [place] [address] Referral ID Status Reason Start Date Expiration Date Visits V isits Requested Authorized [id number] Authorized 12/31/2021 12/31/2022 10 10 Encounter Details Date Type Department Care Team Description 02/21/2022 Hospital Encounter Department of Volodymyr Yung Neoplasm Radiation Oncology [facility] De La [facility] Of Brain (HCC) in [place], [facility] [address] [place], [place] [address] [facility] [address] [place], [place] [phone] (Work) [phone] Social History Tobacco Use Types Packs/Day Years [...] or relatives? How often do you attend temple or More than 4 times per year 01/07/2022 yazidism services? Do you belong to any clubs or No 01/07/2022 organizations such as temple groups, unions, fraternal or athletic groups, or [...] place to sleep or slept in a halfway (including now)? Education Answer Date Recorded What is the highest level of school Master's degree (e.g., M A, MS, 01/07/2022 you have completed or the highest Maulik, MEd, BREAD DISTRIBUTOR, 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 Sex Assigned at Date Recorded Female 01/07/2022 11:11 AM CDT documented as of this encounter Last Filed Vital Signs Vital Sign Reading Time Taken Comments Blood Pressure 122/67 02/21/2022 12:42 PM CDT Pulse 74 02/21/2022 12:42 PM CDT Temperature 36.7 ??C (98 ??F) 02/21/2022 12:42 PM CDT Respiratory Rate - - Oxygen Saturation - - Inhaled Oxygen Concentration - - Weight 92.7 kg (204 lb 5.9 oz) 02/21/2022 12:42 PM CDT Height - - Body Mass Index 32.46 01/24/2022 9:36 AM CDT documented in this encounter Medications at Time of Discharge Medication Sig Dispensed Refills Start Date End Date acetaminophen (TYLENOL) Take 2 tablets 0 01/25/20 22 500 mg tablet (1,000 mg total) by mouth every 6 (six) hours as needed for moderate pain or score 4-6 of 10, mild pain or score 1-3 of 10, headaches or fever. aspirin 325 mg tablet Take 325 mg by mouth 0 every 6 (six) hours as needed for pain. levETIRAcetam (KEPPRA) Take 1 tablet (1,000 28 tablet 0 09/2021 1,000 mg tablet mg total) by mouth 2 (two) times a day. ondansetron (ZOFRAN) 8 Take 1 tablet (8 mg 42 tablet 0 02/202203/12/2022 mg tabletIndications: total) by mouth Malignant Neoplasm Of daily. Take 30 to 60 Brain (HCC) minutes before Temozolomide on Days 1 to 42. prochlorperazine Take 1 tablet (10 mg 30 tablet 3 2 01/29/2023 (COMPAZINE) 10 mg total) by mouth tabletIndications: every 6 (six) hours Malignant Neoplasm Of as needed for nausea Brain (HCC) or vomiting (unrelieved by ondansetron). sulfamethoxazole-trimeth Take 1 tablet by 90 tablet 3 01/2901/29/2023 oprim (BACTRIM,SEPTRA) mouth daily. For 400-80 mg per prophylaxis. tabletIndications: Continue until Malignant Neoplasm Of recovery of Brain (HCC) lymphopenia after completion of temozolomide. VITAMIN B COMPLEX ORAL Take 1 tablet by 0 mouth daily. gabapentin (NEURONTIN) Take 2 capsules (200 12 capsule 0 02/28/2022 100 mg capsule mg total) by mouth at bedtime for 3 days, THEN 1 capsule (100 mg total) at bedtime for 6 days. ondansetron (ZOFRAN) 8 Take 1 tablet (8 mg 30 tablet 3 02/202203/01/2022 mg tabletIndications: total) by mouth Malignant Neoplasm Of every 8 (eight) Brain (HCC) hours as needed for nausea or vomiting. 25/iron Take 1 tablet by 0 fum/folic/dha mouth daily. (-1 ORAL) temozolomide (TEMODAR) Take 1 capsule (140 42 capsule 0 /04/202202/28/2022 140 mg mg total) by mouth capsuleIndications: daily with 1 other Malignant Neoplasm Of temozolomide Brain (HCC) prescription for 160 mg total. Take 1 hr before radiation Mon to Fri and in the morning on Sat and Sun. On empty stomach. temozolomide (TEMODAR) Take 1 capsule (20 42 capsule 0 01/3102/28/2022 20 mg mg total) by mouth capsuleIndications: daily with 1 other Malignant Neoplasm Of temozolomide Brain (HCC) prescription for 160 mg total. Take 1 hr before radiation Mon to Fri and in the morning on Sat and Sun. On empty stomach. TURMERIC ORAL Take 1 capsule by 0 02/2022 mouth daily. documented as of this encounter Progress Notes Volodymyr Yung M.D. - 02/21/2022 12:45 PM CDT SUBJECTIVE REASON FOR VISIT Evaluation for side effects while receiving radiation treatment for 1. Malignant Neoplasm Of Brain (HCC) SUPERVISED BY: Volodymyr Yung M.D. ([phone]) HISTORY OF PRESENT ILLNESS Mia Richardson is a 51 y.o. 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 She is now undergoing intensity modulated radiotherapy along with Temodar. Temodar was held for 4 days due to lab counts and restarted on 02/18/2022 at a lower dose of 140 mg. Treatment Course: 1xBrain Plan ID Fractions Dose / Fraction (cGy) Dose Treated (cGy) Dose Planned (cGy) First Treatment Last Treatment Elapsed Days [id number] 01/31/2022 02/21/2022 Course Summary 01/31/2022 02/21/2022 The patient was seen and examined today with Dr. Gleason. The patient reports that she is doing well overall. She has tapered off Gabapentin. She continues with Dexamethasone 4 mg daily. She reports a franc amount of nausea for which she has a decreased appetite. She states she is taking her antiemetic 1-3 tablets daily and using a QueaseEASE. She continues to have 1 hot flash at night. She reports her vision to be improved and that she is working with OT at [facility]. She does state she has noticed increased hair loss and thinning on theleft side of her head. She reports that she has been in discussion with her oncology team and is concerned about her most recent TSH level. She denies headaches, fevers, chills, seizures, hearing changes or skin changes. PATIENT REPORTED SYMPTOM SCREEN FATIGUE (Scale: 0 = no fatigue; 10 = worst fatigue you can imagine): 7 PAIN (Scale: 0 = no pain; 10 = worst pain you can imagine): 5 OVERALL QUALITY OF LIFE (Scale: 0 = as bad as can be; 10 = as good as can be): 5 OBJECTIVE BP 122/67 (BP Location: Right arm, Patient Position: Sitting, Cuff Size: Large) Pulse 74 Temp 36.7 ??C (Temporal) Wt 92.7 kg BMI 32.46 kg/m?? PHYSICAL EXAM General: Alert and oriented in no apparent distress. Skin: slight pink tone to the left side of scalp, thinning hair noted ASSESSMENT / PLAN #1??Glioblastoma, IDH-wild type, MGMT non-methylated #2 Intensity modulated radiotherapy to the left sided cavity and SAMMY enhancement initiated on January 31, 2022; anticipated completion on March 14, 2022; along with Temodar The patient is tolerating radiation treatment well overall. Patient was encouraged to eat small frequent meals. She may use hard candies, nila, lemon water or tea to help with the management of nausea. Management of Nausea and Vomiting pamphlet was provided [id number]. We will continue to monitorsymptoms. Patient reassured that our Oncology colleges reports that they are speaking with integrated medicine in regards to her TSH lab level. We will continue to see patient in weekly management visits throughout her course of radiation therapy. She will contact us with any questions or concerns. We will continue with radiation treatment as planned. Signed by: Qi Herbert R.N. 02/21/2022 2:48 PM CDT I saw and evaluated the patient and participated in the hill portions of the service. I reviewed thedocumentation of Qi Herbert R.N. and agree with the findings and plan. The patient appears well on exam. She does have some mild erythema of the scalp as well as some hair loss in the treatment garcia on the left scalp. Her oral cavity is clear with no signs of thrush. She did have quite a low TSH. Our colleagues in Medical Oncology are connecting with Integrative Medicine for further investigation in this regard. I would suggest that a thyroid function cascade may be the next step. It is notclear to me that she would have hypopituitarism from her radiation treatment our garcia are somewhatdistant from the pituitary gland. The patient will continue with treatment as planned. Signed by: Volodymyr Yung M.D. 02/21/2022 5:59 PM CDT [facility] [address] [place] [address] documented in this encounter Plan of Treatment Upcoming Encounters Date Type Specialty Care Team Description 03/12/2022 Appointment Radiation Oncology Stephanie Gleason M.D. [address] [place] [phone] 03/12/2022 Appointment Radiation Oncology Stephanie Gleason M.D. [address] [place] [phone] 03/13/2022 Appointment Radiation Oncology Stephanie Gleason M.D. [address] [place] [phone] 03/14/2022 Appointment Radiation Oncology Stephanie Gleason M.D. [address] [place] [phone] 03/25/2022 Ancillary Procedure Ophthalmology Chas Shin M.D. [address] [place] [phone] 03/25/2022 Ancillary Procedure Ophthalmology 03/25/2022 Ancillary Procedure Ophthalmology Chas Shin M.D. [address] [place] [phone] 03/26/2022 Ancillary Procedure Ophthalmology Rebeca Valle P.A.-C., M.S. [address] [place] [phone] 03/26/2022 Comprehensive Visit Ophthalmology Chas Shin M.D. [address] [place] [phone] 03/29/2022 Comprehensive Visit Endocrinology Farzana Allen M.D. [address] [place] [phone] 04/04/2022 Appointment Radiology Christina Tai P.A.-C., M.S. [address] [place] [phone] 04/04/2022 Office Visit Oncology Vini Maki M.D., Ph.D. [address] [place] [phone] 04/04/2022 Office Visit Neurological Surgery Charles Ivey M.D., Ph.D. [address] [place] [phone] 05/03/2022 Comprehensive Visit Clinical Genomics Sanya Mehta M.D. [address] [place] [phone] 05/06/2022 Clinical Communication Admitting/Central Scheduling 05/09/2022 Office Visit Oncology Farzana Allen M.D. [address] [place] [phone] Scheduled Orders Name Type Priority Associated Diagnoses Order S chedule Management Visit Radiation Oncology Routine Malignant Neoplasm Once for 1 Of Brain (HCC) Occurrences s tarting 02/21/2022 unti l 02/21/2022 documented as of this encounter Visit Diagnoses Diagnosis Malignant Neoplasm Of Brain (HCC) documented in this encounter
--- OUTSIDE RECORDS SUMMARY | 2022-03-12 14:30 | XMS_ITS | Encounter Summary ---
:1970 Author Organization [facility] Address [address] [place] [address] Care Team Providers Name Role Phone Unavailable Primary Care Provider Unavailable Reason for Referral Outpatient (Routine) - Closed Specialty Diagnoses / Procedures Referred By Contact Refer red To Contact Social Work Diagnoses Malignant Neoplasm Of Brain (HCC) Stephanie Gleason M.D. [place] [facility] [address] [place] [address] [phone] Referral ID Status Reason Start Date Expiration Date Visits Requ ested Visits Authorized [id number] Closed 02/27/2022 02/27/2023 1 1 Scheduling Instructions Schedule with Belia Amezquita tomorrow. Thanks! Encounter Details Date Type Department Care Team Description 02/27/2022 Orders Only Department of Stephanie Gleason Malignant N eoplasm Of Radiation Oncology in [place] Brain (HCC) (Primary [place], [facility] [address] [facility]) [address] [place] [phone] Social History Tobacco Use Types Packs/Day Years [...] or relatives? How often do you attend anabaptism or More than 4 times per year 01/07/2022 presybeterian services? Do you belong to any clubs or No 01/07/2022 organizations such as anabaptism groups, unions, fraAmp'd Mobile or athletic groups, or school groups? How [...] have completed or the highest Maulik, MEd, SANITARY ENGINEERING TEACHER, 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 Sex Assigned at Date Recorded Female 01/07/2022 11:11 AM CDT documented as of this encounter Plan of Treatment Upcoming Encounters Date Type Specialty Care Team Description 03/12/2022 Appointment Radiation Oncology Stephanie Gleason M.D. 200 [place] [phone] 03/12/2022 Appointment Radiation Oncology Stephanie Gleason M.D. 200 [place] [phone] 03/13/2022 Appointment Radiation Oncology Stephanie Gleason M.D. [address] [place] [phone] 03/14/2022 Appointment Radiation Oncology Stephanie Gleason M.D. [address] [place] [phone] 03/25/2022 Ancillary Procedure Ophthalmology Chas Shin M.D. [address] [place] [phone] 03/25/2022 Ancillary Procedure Ophthalmology 03/25/2022 Ancillary Procedure Ophthalmology Chas Shin M.D. [address] [place] [phone] 03/26/2022 Ancillary Procedure Ophthalmology Rebeca Valle P.A.-C., M.S. [address] [place] [phone] 03/26/2022 Comprehensive Visit Ophthalmology Chas Shin M.D. [address] [place] [phone] 03/29/2022 Comprehensive Visit Endocrinology Farzana Allen M.D. [address] [place] [phone] 04/04/2022 Appointment Radiology Christina Tai P.A.-C., M.S. [address] [place] [phone] 04/04/2022 Office Visit Oncology Vini Maki M.D., Ph.D. [address] [place] [phone] 04/04/2022 Office Visit Neurological Surgery Charles Ivey M.D., Ph.D. [address] [place] [phone] 05/03/2022 Comprehensive Visit Clinical Genomics Sanya Mehta M.D. [address] [place] [phone] 05/06/2022 Clinical Communication Admitting/Central Scheduling 05/09/2022 Office Visit Oncology Farzana Allen M.D. [address] [place] [phone] Scheduled Referrals Name Type Priority Associated Diagnoses Order S [facility] [employer] Work - Outpatient Referral Routine Malignant Neoplasm E xpected: General consult Of Brain (HCC) 02/28/2022 (clinic) (Approximate), Expires: 05/30/2023 documented as of this encounter Visit Diagnoses Diagnosis Malignant Neoplasm Of Brain (HCC) - Prim uyen documented in this encounter
--- OUTSIDE RECORDS SUMMARY | 2022-03-12 14:30 | XMS_ITS | Encounter Summary ---
:1970 Author Organization [facility] Address [address] [place] [phone] Care Team Providers Name Role Phone Unavailable Primary Care Provider Unavailable Reason for Referral Radiation Therapy (Routine) - Authorized Specialty Diagnoses / Procedures Referred By Contact Refer red To Contact Diagnoses Malignant Neoplasm Of Brain (HCC) Stephanie Gleason M.D. [facility] Procedures Management Visit [address] [facility] [place], [place] [phone] [place] [address] Referral ID Status Reason Start Date Expiration Date Visits V isits Requested Authorized [id number] Authorized 12/31/2021 12/31/2022 10 10 Reason for Visit Radiation Therapy (Routine) - Authorized Specialty Diagnoses / Procedures Referred By Contact Refer red To Contact Diagnoses Malignant Neoplasm Of Brain (HCC) Stephanie Gleason M.D. [facility] Radiation Oncology Procedures Management Visit [address] [place] [address] [phone] [place] [address] Referral ID Status Reason Start Date Expiration Date Visits V isits Requested Authorized [id number] Authorized 12/31/2021 12/31/2022 10 10 Encounter Details Date Type Department Care Team Description 02/26/2022 Hospital Encounter Department of Stephanie Gleason Neoplasm Radiation Oncology Sebastian Marcelino Of Brain (HCC) in [place], [facility] [address] [place], [place] [address] [facility] [address] [place], [place] [phone] (Work) [phone] Social History Tobacco Use Types Packs/Day Years [...] More than 4 times per year 01/07/2022 scientologist services? Do you belong to any clubs or No 01/07/2022 organizations such as anabaptism groups, unions, fraternal or athletic groups, or [...] have completed or the highest Maulik, MEd, ANALYST, 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 temozolomide (TEMODAR) Take 1 capsule (140 14 capsule 0 07/0 02/202204/11/2022 140 mg mg total) by mouth capsuleIndications: daily. Take 1 hr Malignant Neoplasm Of before radiation Mon Brain (HCC) to Fri and in the morning on Sat and Sun. On empty stomach. VITAMIN B COMPLEX ORAL Take 1 tablet by 0 mouth daily. gabapentin (NEURONTIN) Take 2 capsules (200 12 capsule 0 02/28/2022 100 mg capsule mg total) by mouth at bedtime for 3 days, THEN 1 capsule (100 mg total) at bedtime for 6 days. ondansetron (ZOFRAN) 8 Take 1 tablet (8 mg 30 tablet 3 06/02/202203/01/2022 mg tabletIndications: total) by mouth Malignant Neoplasm Of every 8 (eight) Brain (HCC) hours as needed for nausea or vomiting. 25/iron Take 1 tablet by 0 fum/folic/dha mouth daily. (-1 ORAL) temozolomide (TEMODAR) Take 1 capsule (140 42 capsule 0 06/0 04/202202/28/2022 140 mg mg total) by mouth capsuleIndications: daily with 1 other Malignant Neoplasm Of temozolomide Brain (HCC) prescription for 160 mg total. Take 1 hr before radiation Fri to Fri and in the morning on [...] TURMERIC ORAL Take 1 capsule by 0 /0 02/2022 mouth daily. documented as of this encounter Progress Stephanie Lowry M.D. - 02/26/2022 1:15 PM CDT ATTESTATION FOR MANAGEMENT VISIT I saw and evaluated the patient and participated in the hill portions of the service as noted below.I reviewed the documentation of Ms. Eileen Hopkins RN and agree with the findings and plan. The patient appears well on exam. We will continue with radiation as planned and monitor weekly. Stephanie Gleason M.D., 02/26/2022 SUBJECTIVE REASON FOR VISIT Evaluation for side effects while receiving radiation treatment for 1. Malignant Neoplasm Of Brain (HCC) SUPERVISED BY: Dr. Gleason HISTORY OF PRESENT ILLNESS Mia Richardson is a 51 y.o. 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 She is now undergoing intensity modulated radiotherapy along with Temodar. Temodar was held for 4 days (starting on 01/2322) due to lab counts and restarted on 02/18/2022 at a lower dose of 140 mg. Treatment Course: 1xBrain Plan ID Fractions Dose / Fraction (cGy) Dose Treated (cGy) Dose Planned (cGy) First Treatment Last Treatment Elapsed Days [id number] 01/31/2022 02/26/2022 Course Summary 01/31/2022 02/26/2022 The patient was seen and examined today with Dr. Gleason. The patient reports that she is doing well overall. She reports a franc amount of nausea for whichshe has a decreased appetite. She reports her vision to be improved and that she is working with OT, PT and Speech therapy weekly at [facility]. She does state she has noticed some hair lossand thinning on the left side of her head. Headaches are minimal and intermittent in nature. She takes Tylenol on occasion for headaches. She denies fevers, chills, seizures, vomiting, hearing changes or skin changes. Patient is requesting [employer] disability parking pass. She is also requesting information on [employer]antto resources. She notes improvement in her memory. PATIENT REPORTED SYMPTOM SCREEN FATIGUE (Scale: 0 = no fatigue; 10 = worst fatigue you can imagine): 5 PAIN (Scale: 0 = no pain; 10 = worst pain you can imagine): 1 OVERALL QUALITY OF LIFE (Scale: 0 = as bad as can be; 10 = as good as can be): 5 OBJECTIVE BP 111/69 (BP Location: Left arm, Patient Position: Sitting, Cuff Size: Large) Pulse 85 Temp 36.6 ??C (Temporal) PHYSICAL EXAM General: Alert and oriented in no apparent distress. Skin: slight pink tone to the left side of scalp, thinning and slight hair loss noted to left scalp region. ASSESSMENT / PLAN #1??Glioblastoma, IDH-wild type, MGMT non-methylated #2 Intensity modulated radiotherapy to the left sided cavity and SAMMY enhancement initiated on January 31, 2022; anticipated completion on March 14, 2022; along with Temodar The patient is tolerating radiation treatment well overall. I will send patient wig resource information. I will complete [employer] disability parking pass application this week for patient. Dr. Allen has ordered thyroid function cascade to be completed this week. Patient notes that she went in for lab work today at [facility]. Patient states that [facility] was planning on faxing results of today's lab work to Medical Oncology on our [facility]. She is now taking 140 mg ofTemodar instead of 160 mg. She is scheduled for brain MR, Medical Oncology and Neurosurgery follow up on April 04, 2022 on on [facility]. We will continue to see patient in weekly management visits throughout her course of radiation therapy. She will contact us with any questions or concerns. We will continue with radiation treatment as planned. Signed by: Eileen Hopkins R.N. 02/26/2022 2:15 PM CDT documented in this encounter Plan of Treatment Upcoming Encounters Date Type Specialty Care Team Description 03/12/2022 Appointment Radiation Oncology Stephanie Gleason M.D. [address] [place] [phone] 03/12/2022 Appointment Radiation Oncology Stephanie Gleason M.D. [address] [place] [phone] 03/13/2022 Appointment Radiation Oncology Stephanie Gleason M.D. [address] [place] [phone] 03/14/2022 Appointment Radiation Oncology Stephanie Gleason M.D. [address] [place] [phone] 03/25/2022 Ancillary Procedure Ophthalmology Chas Shin M.D. [address] [place] [phone] 03/25/2022 Ancillary Procedure Ophthalmology 03/25/2022 Ancillary Procedure Ophthalmology Chas Shin M.D. [address] [place] [phone] 03/26/2022 Ancillary Procedure Ophthalmology Rebeca Valle P.A.-Rusty., M.S. [address] [place] [phone] 03/26/2022 Comprehensive Visit Ophthalmology Chas Shin M.D. [address] [place] [address] [phone] 03/29/2022 Comprehensive Visit Endocrinology Farzana Allen M.D. [address] [place] [phone] 04/04/2022 Appointment Radiology Christina Tai P.A.-Rusty., M.S. [address] [place] [phone] 04/04/2022 Office Visit Oncology Vini Maki M.D., Ph.D. [address] [place] [phone] 04/04/2022 Office Visit Neurological Surgery Charles Ivey M.D., Ph.D. [address] [place] [phone] 05/03/2022 Comprehensive Visit Clinical Genomics Sanya Mehta M.D. [address] [place] [phone] 05/06/2022 Clinical Communication Admitting/Central Scheduling 05/09/2022 Office Visit Oncology Farzana Allen M.D. [address] [place] [phone] Scheduled Orders Name Type Priority Associated Diagnoses Order S chedule Management Visit Radiation Oncology Routine Malignant Neoplasm Once for 1 Of Brain (HCC) Occurrences s tarting 02/26/2022 unti l 02/26/2022 documented as of this encounter Visit Diagnoses Diagnosis Malignant Neoplasm Of Brain (HCC) documented in this encounter
--- OUTSIDE RECORDS SUMMARY | 2022-03-12 14:30 | XMS_ITS | Encounter Summary ---
:1970 Author Organization [facility] Address [address] [place] [address] Care Team Providers Name Role Phone Unavailable Primary Care Provider Unavailable Reason for Visit Reason Comments 02/26/22 labs Encounter Details Date Type Department Care Team Description 02/26/2022 Clinical Communication Department of Oncology Jono Flanagan, 02/26/22 labs in [facility] potato bucker R.NSanjuanita [address] [facility] [phone] [place], [place] (Work) [phone] Social History Tobacco Use Types Packs/Day Years [...] or relatives? How often do you attend restorationist or More than 4 times per year 01/07/2022 gnosticism services? Do you belong to any clubs or No 01/07/2022 organizations such as restorationist groups, unions, fraternal or athletic groups, or [...] place to sleep or slept in a fdc (including now)? Education Answer Date Recorded What is the highest level of school Master's degree (e.g., M A, MS, 01/07/2022 you have completed or the highest Maulik, MEd, MERCHANDISE FOR RESALE PURCHASING AGENT, 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 Sex Assigned at Date Recorded Female 01/07/2022 11:11 AM CDT documented as of this encounter Miscellaneous Notes Telephone Encounter - Trupti Pearson - 03/01/2022 10:16 AM CDT Images from the original note were not included. Telephone Encounter - Olivia Koenig D.N.P., M.A., R.N., HNB-BC - 02/28/2022 10:48 AM CDT I called [facility] to help expedite the process, asked them to call us if there were any additional questions Addendum Note - Dodie Aragon P.A.-C., M.S. - 02/28/2022 10:04 AM CDT Addended by: DODIE ARAGON on: 02/28/2022 10:04 AM Modules accepted: Orders Telephone Encounter - Trupti Pearson - 02/28/2022 8:39 AM CDT Unfortunately [employer] can not call the insurance company. I can provide the patient with the [place] [employer] office number. They would best able to help the patient with questions on their new insurance. Pt did reach out to myself yesterday after I had asked for a copy on the new cards. They were waiting on a couple things and then they would send the cards my way. If patient needs or wants the meds they could pay a month out of pocket while we wait to get the newinsurance approved? Telephone Encounter - Chiquita Ivey - 02/27/2022 4:40 PM CDT Libby calls stating that they spoke with [facility] and were told that since patient's benefits have changed that they are no longer within her pharmacy benefits. I asked Libby if they had spoke with Medicaid (she kept saying Medicaid insurance) to find out which pharmacy would be within her benefits but she told me that she didn't have a number and felt that someone here would be able to find out that information since we did when she had BCBS. Libby provided me with patient's medicaid number [id number]--gske were given this number today but patient does not have any insurance cards yet. I let [place] that I would pass along this information and see if we could find out patient's benefits to send a new rx to a different specialty pharmacy but I couldn't make any promises. I also let her know that I didn't think that patient would be able to get her medication by tomorrow since it is so late inthe day and I also believed that the pharmacy/insurance would have to do a new prior auth. She did not seem happy about this and said well it's just chemo right. I relayed that I understood that insurance was frustrating and we are trying to help the best we can. Please let Libby/patient know if we are able to do anything with this number or if we need more information. Thank you, Hannah [facility] AA POD 1 Telephone Encounter - Trupti Pearson - 02/27/2022 3:32 PM CDT Waiting for patient to send new insurance cards over. Might have to re run a PA with the new insurance Telephone Encounter - Olivia Koenig D.N.P., M.Domingo., R.N., JASON-BC - 02/27/2022 1:40 PM CDT SUBJECTIVE Glioblastoma CHIEF COMPLAINT / REASON FOR CALL 02/26/22 labs Information Discussed I spoke with Mia Souza's mother, regarding issues with [facility] pharmacy. Mia's insurance changed on February 22, and [employer] did not send the refill of the medication prior to the change, so there is no an issue with getting the refill. Libby was understandably upset, I listened to her concerns a nd voiced understanding. I offered to reach out to our clinical social work aide in the hopes that she would have more insight into insurance information. I also reached out to our ehealth team to see what other options we may have for the patient. Libby will reach out to us if she has any additional questions or concerns. PLAN Will reach out to Social work and ehealth team for assistance with the patient Information/Education: patient/caller able to teach back Caller agreeable to plan of care: yes The following references were used: nursing clinical judgement Telephone Encounter - Chiquita Ivey - 02/27/2022 12:44 PM CDT Libby, mother, calls again a bit anxious on what they should do regarding patient's Temodar. She states that patient has applied for state insurance and was told that things would go through and they would be able to get things set up for delivery for patient's med today but now the state is asking patient to prove that she's not working and such. Libby isn't sure what to do. She was wanting to know ifwe had any suggestions. I didn't think/know of anything but said I'd send a message to the team. Libby also states that she's a bit upset that the outside labs aren't viewable on the portal. I did tell her that once we got the results and put them in the system, then they would be viewable but she states that they still can't see labs from 02/13 (and anything after that.) I told her I wasn't sure why that was. Maybe the outside labs don't show up once we input them? Please review and call Libby. Thank you, Iangadiel [facility] AA POD 1 Telephone Encounter - Amelie Wiley - 02/27/2022 8:56 AM CDT Labs drawn on 02/26/22 are here. Copy is in document viewer. This fax should be viewable in a few minutes. Thank you, Kala [facility] AA POD 1 Telephone Encounter - Michael Melton - 02/26/2022 2:22 PM CDT Do we have a valid auth to speak with caller? yes, iLbby Murdock, mother Reason for call: Patient's mother Libyb called in regards to multiple issues. First, she stated thatthe patient needed a refill of Temodar and stated that they now have medicaid and so it should be covered. See med refill request in separate 02/26/22 encounter. Caller stated that the care team would need to review the patient's 02/26/22 labs to determine what dose should be prescribed. Second, the caller stated that they were applying for social security in [place] and filled out form SSA [id number]. She stated that the social security administration needs medical records or proof of illness but did not provide any contact information or further details. Third, caller stated that she would like someone on the care team to reach out to the patient to discuss options for wigs. Fourth, the caller stated that the patient would like a handicap parking permit but was wondering if they should have our office complete it or if it could be done at the local radiation facility. Fifth, she asked why she is unable to see patient's lab results drawn locally in patient portal. Caller stated that other than to discuss wigs, it would be preferable to call her (Libby, mother, auth on file). I have listed numbers for both below. Libby, mother: [phone] Mia, patient: [phone] Thank you, Michael [facility] Med AA Pod 1 documented in this encounter Plan of Treatment Upcoming Encounters Date Type Specialty Care Team Description 03/12/2022 Appointment Radiation Oncology Stephanie Gleason M.D. [address] [place] [phone] 03/12/2022 Appointment Radiation Oncology Stephanie Gleason M.D. [address] [place] [address] [phone] 03/13/2022 Appointment Radiation Oncology Stephanie Gleason M.D. [address] [place] [address] [phone] 03/14/2022 Appointment Radiation Oncology Stephanie Gleason M.D. [address] [place] [phone] 03/25/2022 Ancillary Procedure Ophthalmology Chas Shin M.D. [address] [place] [address] [phone] 03/25/2022 Ancillary Procedure Ophthalmology 03/25/2022 Ancillary Procedure Ophthalmology Chas Shin M.D. [address] [place] [address] [phone] 03/26/2022 Ancillary Procedure Ophthalmology Dodie Aragon P.A.-C., M.S. [address] [place] [phone] 03/26/2022 Comprehensive Visit Ophthalmology Chas Shin M.D. [address] [place] [phone] 03/29/2022 Comprehensive Visit Endocrinology Farzana Allen M.D. [address] [place] [address] [phone] 04/04/2022 Appointment Radiology Christina Tai P.A.-C., M.S. [address] [place] [phone] 04/04/2022 Office Visit Oncology Vini Maki M.D., Ph.D. [address] [place] [phone] 04/04/2022 Office Visit Neurological Surgery Charles Ivey M.D., Ph.D. [address] [place] [address] [phone] 05/03/2022 Comprehensive Visit Clinical Genomics Sanya Mehta M.D. [address] [place] [phone] 05/06/2022 Clinical Communication Admitting/Central Scheduling 05/09/2022 Office Visit Oncology Farzana Allen M.D. [address] [place] [phone] documented as of this encounter Visit Diagnoses Diagnosis Malignant Neoplasm Of Brain (HCC) documented in this encounter
--- OUTSIDE RECORDS SUMMARY | 2022-03-12 14:30 | XMS_ITS | Encounter Summary ---
:1970 Author Organization [facility] Address [address] [place] [address] Care Team Providers Name Role Phone Unavailable Primary Care Provider Unavailable Reason for Visit Radiation Therapy (Routine) - Authorized Specialty Diagnoses / Procedures Referred By Contact Refer red To Contact Diagnoses Malignant Neoplasm Of Brain (HCC) Stephanie Gleason M.D. [facility] Radiation Oncology Procedures Prior Auth Rad Tx LA IMRT COMPLEX [address] [place] [phone] [address] [facility] [place] [address] Referral ID Status Reason Start Date Expiration Date Visits V isits Requested Authorized [id number] Authorized 01/31/2022 12/31/2022 30 30 Encounter Details Date Type Department Care Team Description 02/27/2022 Hospital Encounter Department of Radiation Jacquelyn Gleason I., [place]cology [place] [address] [facility] [address] [place] [phone] Social History Tobacco Use Types Packs/Day Years [...] or relatives? How often do you attend judaism or More than 4 times per year 01/07/2022 yazdanism services? Do you belong to any clubs or No 01/07/2022 organizations such as judaism groups, unions, fraternal or athletic groups, or [...] have completed or the highest Maulik, MEd, ATTENDING PATHOLOGIST, 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 Sex Assigned at Date Recorded Female 01/07/2022 11:11 AM CDT documented as of this encounter Plan of Treatment Upcoming Encounters Date Type Specialty Care Team Description 03/12/2022 Appointment Radiation Oncology Stephanie Gleason M.D. 200 [place] [phone] 03/12/2022 Appointment Radiation Oncology Stephanie Gleason M.D. [address] [place] [address] [phone] 03/13/2022 Appointment Radiation Oncology Stephanie Gleason M.D. [address] [place] [phone] 03/14/2022 Appointment Radiation Oncology Stephanie Gleason M.D. [address] [place] [phone] 03/25/2022 Ancillary Procedure Ophthalmology Chas Shin M.D. [address] [place] [phone] 03/25/2022 Ancillary Procedure Ophthalmology 03/25/2022 Ancillary Procedure Ophthalmology Chas Shin M.D. [address] [place] [phone] 03/26/2022 Ancillary Procedure Ophthalmology Rebeca Valle P.A.-Rusty., M.S. [address] [place] [phone] 03/26/2022 Comprehensive Visit Ophthalmology Chas Shin M.D. [address] [place] [address] [phone] 03/29/2022 Comprehensive Visit Endocrinology Farzana Allen M.D. [address] [place] [phone] 04/04/2022 Appointment Radiology Christina Tai P.A.-Rusty., M.S. [address] [place] [phone] 04/04/2022 Office Visit Oncology Vini Maki M.D., Ph.D. [address] [place] [phone] 04/04/2022 Office Visit Neurological Surgery Charles Ivey M.D., Ph.D. [address] [place] [phone] 05/03/2022 Comprehensive Visit Clinical Genomics Sanya Mehta M.D. [address] [place] [phone] 05/06/2022 Clinical Communication Admitting/Central Scheduling 05/09/2022 Office Visit Oncology Farzana Allen M.D. [address] [place] [phone] documented as of this encounter Visit Diagnoses Not on filedocumented in this encounter
--- OUTSIDE RECORDS SUMMARY | 2022-03-12 14:30 | XMS_ITS | Encounter Summary ---
:1970 Author Organization [facility] Address [address] [place] [address] Care Team Providers Name Role Phone Unavailable Primary Care Provider Unavailable Reason for Visit Outpatient (Routine) - Closed Specialty Diagnoses / Procedures Referred By Contact Refer red To Contact Social Work Karthikeyan Cedeno M.D. [address] [phone] Referral ID Status Reason Start Date Expiration Date Visits Requ ested Visits Authorized [id number] Closed 02/13/2022 02/13/2023 1 1 Encounter Details Date Type Department Care Team Description 02/19/2022 Telemedicine Department of Oncology Araseli Cedeno M.D. [address] [place] [phone] Canceled (Provider: [place] E, L.G.SMio, M.S.W. Request) [address] [phone] Social History Tobacco Use Types Packs/Day Years [...] More than 4 times per year 01/07/2022 adventism services? Do you belong to any clubs [...] place to sleep or slept in a alf (including now)? Education Answer Date Recorded What is the highest level of school Master's degree (e.g., M Domingo, MS, 01/07/2022 you have completed or the highest Maulik, MEd, BURNER TENDER, 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 Sex Assigned at Date Recorded Female 01/07/2022 11:11 AM CDT documented as of this encounter Plan of Treatment Upcoming Encounters Date Type Specialty Care Team Description 03/12/2022 Appointment Radiation Oncology Stephanie Gleason M.D. 200 [place] [phone] 03/12/2022 Appointment Radiation Oncology Stephanie Gleason M.D. [address] [place] [address] [phone] 03/13/2022 Appointment Radiation Oncology Stephanie Gleason M.D. [address] [place] [address] [phone] 03/14/2022 Appointment Radiation Oncology Stephanie Gleason M.D. [address] [place] [address] [phone] 03/25/2022 Ancillary Procedure Ophthalmology Chas Shin M.D. [address] [place] [phone] 03/25/2022 Ancillary Procedure Ophthalmology 03/25/2022 Ancillary Procedure Ophthalmology Chas Shin M.D. [address] [place] [phone] 03/26/2022 Ancillary Procedure Ophthalmology Rebeca Valle, Tu.A.-C., M.S. [address] [place] [phone] 03/26/2022 Comprehensive Visit Ophthalmology Chas Shin M.D. [address] [place] [phone] 03/29/2022 Comprehensive Visit Endocrinology Farzana Allen M.D. [address] [place] [phone] 04/04/2022 Appointment Radiology Christina Tai, P.A.-C., M.S. [address] [place] [phone] 04/04/2022 Office Visit Oncology Vini Maki M.D., Ph.D. [address] [place] [phone] 04/04/2022 Office Visit Neurological Surgery Charles Ivey M.D., Ph.D. [address] [place] [phone] 05/03/2022 Comprehensive Visit Clinical Genomics Sanya Mehta M.D. [address] [place] [phone] 05/06/2022 Clinical Communication Admitting/Central Scheduling 05/09/2022 Office Visit Oncology Farzana Allen M.D. [address] [place] [address] [phone] documented as of this encounter Visit Diagnoses Not on filedocumented in this encounter
--- OUTSIDE RECORDS SUMMARY | 2022-03-12 14:30 | XMS_ITS | Encounter Summary ---
:1970 Author Organization [facility] Address [address] [place] [address] Care Team Providers Name Role Phone Unavailable Primary Care Provider Unavailable Reason for Referral Outpatient (Routine) - Authorized Specialty Diagnoses / Procedures Referred By Contact Refer red To Contact Endocrinology Diagnoses Hyperthyroidism Subclinical Farzana Allen M.D. [facility] [address] [place] [phone] Referral ID Status Reason Start Date Expiration Date Visits V isits Requested Authorized [id number] Authorized 02/27/2022 02/27/2023 1 1 Encounter Details Date Type Department Care Team Description 02/27/2022 Orders Only Integrative Medicine Farzana Allen Hyper thyroidism and Health in [place] [facility] Subclinical (Primary Dx) [address] [place] [phone] Social History Tobacco Use Types Packs/Day Years [...] or relatives? How often do you attend latter-day or More than 4 times per year 01/07/2022 [employer] services? Do you belong to any clubs or No 01/07/2022 organizations such as latter-day groups, unions, fraternal or athletic groups, or [...] have completed or the highest Maulik, MEd, FIELD CARE COORDINATOR, 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 Sex Assigned at Date Recorded Female 01/07/2022 11:11 AM CDT documented as of this encounter Plan of Treatment Upcoming Encounters Date Type Specialty Care Team Description 03/12/2022 Appointment Radiation Oncology Stephanie Gleason M.D. 200 [place] [phone] 03/12/2022 Appointment Radiation Oncology Stephanie Gleason M.D. 200 [place] [phone] 03/13/2022 Appointment Radiation Oncology Stephanie Gleason M.D. 200 [place] [phone] 03/14/2022 Appointment Radiation Oncology Stephanie Gleason M.D. [address] [place] [address] [phone] 03/25/2022 Ancillary Procedure Ophthalmology Chas Shin M.D. [address] [place] [phone] 03/25/2022 Ancillary Procedure Ophthalmology 03/25/2022 Ancillary Procedure Ophthalmology Chas Shin M.D. [address] [place] [phone] 03/26/2022 Ancillary Procedure Ophthalmology Rebeca Valle P.A.-C., M.S. [address] [place] [phone] 03/26/2022 Comprehensive Visit Ophthalmology Chas Shin M.D. [address] [place] [phone] 03/29/2022 Comprehensive Visit Endocrinology Farzana Allen M.D. [address] [place] [address] [phone] 04/04/2022 Appointment Radiology Christina Tai P.A.-C., M.S. [address] [place] [phone] 04/04/2022 Office Visit Oncology Vini Maki M.D., Ph.D. [address] [place] [phone] 04/04/2022 Office Visit Neurological Surgery Charles Ivey M.D., Ph.D. [address] [place] [phone] 05/03/2022 Comprehensive Visit Clinical Genomics Sanya Mehta M.D. [address] [place] [address] [phone] 05/06/2022 Clinical Communication Admitting/Central Scheduling 05/09/2022 Office Visit Oncology Farzana Allen M.D. [address] [place] [address] [phone] Scheduled Referrals Name Type Priority Associated Diagnoses Order [facility] Endocrinology - Outpatient Routine Hyperthyroidism Expected: Thyroid disorders Referral Subclinical 02/27/2022 consult (clinic) (Approximat e), Expires: 05/30/2023 documented as of this encounter Visit Diagnoses Diagnosis Hyperthyroidism Subclinical - Primary documented in this encounter
--- OUTSIDE RECORDS SUMMARY | 2022-03-12 14:30 | XMS_ITS | Encounter Summary ---
:1970 Author Organization [facility] Address [address] [place] [address] Care Team Providers Name Role Phone Unavailable Primary Care Provider Unavailable Reason for Visit Outpatient (Routine) - Closed Specialty Diagnoses / Procedures Referred By Contact Refer red To Contact Social Work Karthikeyan Cedeno M.D. [facility] [address] [place] [phone] Referral ID Status Reason Start Date Expiration Date Visits Requ ested Visits Authorized [id number] Closed 02/13/2022 02/13/2023 1 1 Encounter Details Date Type Department Care Team Description 02/20/2022 Telemedicine Department of Oncology Araseli Cedeno M.D. [address] [place] [phone] Malignant Neoplasm Of Brain (HCC) (Prima ry Dx); in [facility] Hamida Ram L.G.SMio, M.S.W. Counseling Phase Of Life Problem [address] [phone] Social History Tobacco Use Types Packs/Day Years [...] or relatives? How often do you attend jehovah's witness or More than 4 times per year 01/07/2022 sabianism services? Do you belong to any clubs or No 01/07/2022 organizations such as jehovah's witness groups, unions, fraternal or athletic groups, or [...] place to sleep or slept in a custodial (including now)? Education Answer Date Recorded What is the highest level of school Master's degree (e.g., M A, MS, 01/07/2022 you have completed or the highest Maulik, MEd, FOOD PRODUCTION MACHINE OPERATOR, 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 Sex Assigned at Date Recorded Female 01/07/2022 11:11 AM CDT documented as of this encounter Progress Notes Hamida Ram L.G.STammy., M.S.W. - 02/20/2022 8:00 AM CDT SUBJECTIVE Chief Complaint: offer supportive counseling & assist in navigation of resources as appropriate Diagnosis: #1 Malignant Neoplasm Of Brain (HCC) #2 Counseling Phase Of Life (Z60.0) Service type(s): Individual and Family Present for the visit: met with Ms. Cedillo & mother- Libby via telehealth visit. Ms. Cedillo provides update on life narrative since our most recent conversation. She received a packet of information in the mail from [employer] requesting supporting documents for her Social Security Disability application. Her plan is to apply for Medicaid & then to gather the supporting d ocuments requested by [employer]. Mother- Libby is feeling overwhelmed. Libby went to the chiropractor and plans to go again. Stressed the importance of the primary caregiver to take care of themselves. Supportive counseling provided regarding the experience of living with a life- threatening illness and the feelings that may wax / wane throughout treatment. Talked about the stress / distress that often arises following a cancer diagnosis & normalized these emotions / experiences. Extended supportive counseling through empathy, active, & reflective listening. Validated & normalized thoughts, feelings, emotions & experiences around cancer diagnosis & treatments. Re-education provided about Social Work role & availability within Medical Oncology Care Team. Offered to provide continued on-going supportive counseling throughout cancer care journey here at [facility]. Ms. Cedillo will reach out if questions or concerns arise. Ms. Cedillo has my contact information. Encouraged Ms. Cedillo to reach out if questions, concerns or desire for supportive counseling arise prior to our next scheduled appointment. OBJECTIVE Re-education provided about Social Work role & availability within Medical Oncology Care Team. Provided education about community resources such as [facility] [place] and [place] [employer]. Mental Status Exam Orientation: Oriented to person, place and time Level of consciousness: Awake and alert Appearance: Relaxed, Well-groomed and Younger than age appearing Behavior observed: Calm and Interactive Memory, recent and remote: Impaired Attention/Concentration: Imapired Cooperation: Cooperative Mood: Overwhelmed, depressed, & anxious Affect: Congruent to mood and thought content Speech: Within normal limits for volume, rate and tone and difficulty finding words Thought process: Logical, linear, and goal-directed Thought content, auditory/visual hallucinations and/or delusions: No abnormality noted Judgment: Impaired Insight: Impaired Motivation for treatment: Excellent ASSESSMENT Ms. Cedillo was diagnosed with Malignant Neoplasm Of Brain.She continues to be motivated to engage within cancer-directed treatment. There is also perspective around coping, grief / loss, adjustment, mental health, & psychosocial stressors. She is feeling overwhelmed with all the paperwork that needs to be completed & submitted. Interventions Provided: ~Supportive Counseling Regarding the experience of Living with a life threatening illness ~Provided the following Community Resources [facility] & [employer] [employer] ~Reflective Listening PLAN 1. Ms. Cedillo has my contact information. 2. Ms. Cedillo will reach out if questions, concerns or desire for supportive counseling arises prior to our next scheduled appointment. 3. Ms. Cedillo will apply for medicaid. 4. Ms. Cedillo will gather supporting documents requested by Social Security for her Social SecurityApplication. 5. Social Work provided community resources: [employer] & [place] [employer] Consult conducted remotely via real-time audio technology by Evon Coreas, M.S.WSanjuanita to thepatient in patient's home. This telephone was performed during the COVID-19 emergency. Telehealth is an innovative solution fordelivering high-quality effective and appropriate behavioral health care to sustain and strengthen patient's mental and physical health. Type of service: Supportive counseling and Resource referrals and connection Start time: 8:00am End time: 8:42am Barriers present: cognitive The following educational material were provided: none documented in this encounter Plan of Treatment Upcoming Encounters Date Type Specialty Care Team Description 03/12/2022 Appointment Radiation Oncology Stephanie Gleason M.D. [address] [place] [address] [phone] 03/12/2022 Appointment Radiation Oncology Stephanie Gleason M.D. [address] [place] [address] [phone] 03/13/2022 Appointment Radiation Oncology Stephanie Gleason M.D. [address] [place] [address] [phone] 03/14/2022 Appointment Radiation Oncology Stephanie Gleason M.D. [address] [place] [address] [phone] 03/25/2022 Ancillary Procedure Ophthalmology Chas Shin M.D. [address] [place] [address] [phone] 03/25/2022 Ancillary Procedure Ophthalmology 03/25/2022 Ancillary Procedure Ophthalmology Chas Shin M.D. [address] [place] [phone] 03/26/2022 Ancillary Procedure Ophthalmology Rebeca Valle P.A.-C., M.S. [address] [place] [phone] 03/26/2022 Comprehensive Visit Ophthalmology Chas Shin M.D. [address] [place] [address] [phone] 03/29/2022 Comprehensive Visit Endocrinology Farzana Allen M.D. [address] [place] [phone] 04/04/2022 Appointment Radiology Christina Tai P.A.-Rusty., M.S. [address] [place] [address] [phone] 04/04/2022 Office Visit Oncology Vini Maki M.D., Ph.D. [address] [place] [address] [phone] 04/04/2022 Office Visit Neurological Surgery Charles Ivey M.D., Ph.D. [address] [place] [address] [phone] 05/03/2022 Comprehensive Visit Clinical Genomics Sanya Mehta M.D. [address] [place] [phone] 05/06/2022 Clinical Communication Admitting/Central Scheduling 05/09/2022 Office Visit Oncology Farzana Allen M.D. [address] [place] [phone] documented as of this encounter Visit Diagnoses Diagnosis Malignant Neoplasm Of Brain (HCC) - Prim uyen Counseling Phase Of Life Problem documented in this encounter
--- OUTSIDE RECORDS SUMMARY | 2022-03-12 14:30 | XMS_ITS | Encounter Summary ---
:1970 Author Organization [facility] Address [address] [place] [id number] Care Team Providers Name Role Phone Unavailable Primary Care Provider Unavailable Reason for Referral Outpatient (Routine) - Authorized Specialty Diagnoses / Procedures Referred By Contact Refer red To Contact Oncology Rebeca Valle P .A.-C., M.S. [address] [phone] Referral ID Status Reason Start Date Expiration Date Visits V isits Requested Authorized [id number] Authorized 02/20/2022 02/20/2023 1 1 Reason for Visit Outpatient (Routine) - Closed Specialty Diagnoses / Procedures Referred By Contact Gina cedeño To Contact Oncology Rebeca Valle P .A.-C., M.S. [address] [phone] Referral ID Status Reason Start Date Expiration Date Visits Requ ested Visits Authorized [id number] Closed 01/30/2022 01/30/2023 1 1 Encounter Details Date Type Department Care Team Description 02/20/2022 Virtual Visit Department of Rebeca Valle Astrocy toma (HCC) (Primary Dx); Oncology in [place], M.S. Malignant Neoplasm Of Brain (HCC) [address] [place], [place] [phone] Social History Tobacco Use Types Packs/Day Years [...] or relatives? How often do you attend taoism or More than 4 times per year 01/07/2022 jew services? Do you belong to any clubs or No 01/07/2022 organizations such as taoism groups, unions, fraternal or athletic groups, or [...] have completed or the highest Maulik, MEd, CURRICULUM DEVELOPMENT MANAGER, 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 Sex Assigned at Date Recorded Female 01/07/2022 11:11 AM CDT documented as of this encounter Progress Notes Rebeca Valle P.A.-C., M.S. - 02/20/2022 2:40 PM CDT SUBJECTIVE COLLABORATING ONCOLOGIST: Dr. Maki PRIMARY SUNNYSIDE ONCOLOGIST: Farzana Allen M.D. CHIEF COMPLAINT/REASON FOR VISIT Mia Richardson is a 51 y.o. female who presents via PHONE call for evaluation of Glioblastoma, IDH wild type, MGMT unmethylated - Radiation therapy and concurrent temozolomide 01/31/2022 - 03/14/2022 (of note, chemotherapy delayed in starting by two days and held for 4 days recently due to white blood cell count). HISTORY OF PRESENT ILLNESS Oncology History Oncology History Malignant Neoplasm Of Brain (HCC) 11/29/2021 Other The patient was supposed to meet her significant other, but did not show up. He went to her house and found her complaining of her head hurting and she had a large swelling on her forehead. The patient was not oriented and what she was saying did not make sense. The patient was taken to the [facility] with altered mental status. The patient was admitted to the hospital, but continued tohave word-finding difficulties. 11/30/21: MRI of the brain demonstrated mass within the left posterior temporal lobe subcortical white matter measuring up to 3.6 cm with additional foci of masslike cortical hyperintensity within thebasal ganglia as well as the left hippocampus. There was trace left to right midline shift of 2.5 mm. The patient was treated with steroids and Keppra and transferred to [facility]. 11/30/2021 Imaging MRI of the brain demonstrated multifocal nonenhancing T1 hypointense and T2 hyperintense lesion regions of the left cerebellar hemisphere, including the mid and posterior lateral left temporal lobe and also extending into the inferior parietal lobule, left thalamus, and adjacent posterior limb internal capsule and sub lentiform region, and left hippocampus and parahippocampal gyrus. There were smaller foci of similar signal abnormality in the left subinsular white matter and about the anteroinferior aspect of the left putamen. The lesion abnormality appeared to involve the cortex of the posterior aspect of the lateral left temporal lobe. Trace left to right midline shift without herniation. Afew small foci of T2 hyperintensity in the subcortical right frontal white matter were of uncertain significance. 12/01/[address] scan of the chest, abdomen, and pelvis demonstrated no evidence for primary malignancy in the chest, abdomen, or pelvis. 12/02/2021 Other Neurology consultation with Dr. Cherelle Alvarez. The patient's initial episode of alteration of consciousness and word-finding difficulty was very suspicious for seizure. She had an unusual sensation followed by symptomatic aphasia and subsequently lost time and woke up covered in vomit. The patient additionally had bruises and injuries on her body likely from the event. Based on the severity of thepatient's exam, despite ongoing medication with Keppra and Decadron, would suspect that she has had some deficits for longer than a few days. 12/03/2021 Surgery and Procedures Lumbar puncture was performed. DIAGNOSIS: Cerebrospinal fluid , flow cytometry: - No aberrant immunophenotype on the T-cells - B-cells rare to absent Final Diagnosis: Negative for malignant cells. 12/05/2021 Surgery and Procedures Left-sided craniotomy for open biopsy/resection was performed by Dr. Darinel Dunlap. A. 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 See comment. B. 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 See comment. Final Diagnosis: Although the immunostain for the most common IDH1 R132H mutation is negative, given the patient's age is younger than 55 years old, NGS sequencing has been initiated to confirm the tumor is IDH wildtype. For IDH-wildtype diffuse astrocytoma, WHO grade 3 is only a provisional grading. Molecular testingfor TERT promoter mutation, EGFR amplification, + 7/-10 chromosome copy number changes are strongly recommended, in fact necessary, for appropriate grading of the tumor. MGMT promoter methylation: NEGATIVE 12/05/[address] scan of the head demonstrated new postoperative changes of left frontoparietal cranioplasty and biopsy. Small 2 mm subdural fluid collection deep to the cranioplasty flap and small amount of pneumocephalus likely postprocedural in nature. Small intraparenchymal hemorrhage in the area of biopsy measuring 6 mm. Unchanged 3 mm of left to right midline shift. Vague hypodense masslike area left temporoparietal junction and left thalamus. 12/18/2021 Other Follow-up appointment with Dr. Dunlap who recommended completing the Decadron taper. Continue Keppra. Referral to Dr. Shelbie Ackerman at the [facility]. Discussed that it was okay forthe patient to proceed with chemotherapy and radiation 1 month from biopsy date. Also discussed that it was okay for the patient to travel on a commercial air flight approximately 1 month from biopsy as she was planning for a trip to [place] with her significant other in December. 12/24/[address] Shelbie Ackerman who reviewed the patient's case with Dr. Dunlap and he recommended against additional surgery. Dr. Macias recommended proceeding with a combination of radiation therapy plus temozolomide. Referral to Radiation Oncology at [facility] in [place]. 01/10/2022 Surgery and Procedures Left temporoparietal stereotactic craniotomy with tumor resection, speech mapping with Dr. Ivey. PATHOLOGY: A-D. Brain, left temporal lesion, resection: Glioblastoma, IDH-wildtype (PHARMACY OPERATIONS MANAGER WHO grade 4), clinically residual. See comment. COMMENT: The patient's history of left temporal-parietal mitotically-active infiltrating glioma status post biopsy on 12/06/2019 (reviewed at [facility], [id number]), is noted. The biopsy specimen lacked microvascular proliferation and tumor necrosis. By immunohistochemistry, the tumor cells were negative for IDH1-R132H and showed retained ATRX expression. Next-generation sequencing panel performedat [facility] in [place], [place], demonstrated a TERT (C228T) promoter mutation, and showed no mutations in IDH1 or IDH2 genes. 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 The current resection specimen shows a diffusely infiltrating astrocytoma with high cellularity and variable morphology. Tumor cells range from spindled to epithelioid and show marked nuclear pleomorphism. Mitotic activity, microvascular proliferation with luminal thrombosis, and extensive abscess-lik e tumor necrosis are present. The overall histologic and molecular findings support the diagnosis of glioblastoma, IDH-wildtype (PHARMACY OPERATIONS MANAGER WHO grade 4). 01/10/2022 Imaging MRI of the brain demonstrated interval repeat left temporoparietal craniotomy and resection of lefttemporoparietal region mass. Expected postoperative left convexity extra-axial collection and pneumocephalus, similar vasogenic edema and mass effect resulting in 12 mm rightward midline shift, stable. Enhancement surrounding the resection cavity should be postoperative without evidence for gross residual enhancing tumor. 01/29/2022 - Chemotherapy Temozolomide ( with Radiation ) followed by Temozolomide Start Date: 01/29/2022 01/31/2022 - Radiation Therapy Radiation Therapy Treatment Details (Noted on 12/31/2021) Site: Brain Technique: IMRT Goal: Curative Planned Treatment Start Date: 01/31/2022 INTERVAL HISTORY: Mia Richardson presents today for follow up. In brief, she underwent biopsy on 12/05/2021 - pathology indicating at least grade 3 - astrocytoma, IDH wild type, MGMT unmethylated. Since that time, she has completed dexamethasone taper - which lead to difficulty in language. She was then seen in clinicon 01/03/[address] Cedeno, at that time, dexamethasone was being taken 4mg twice daily. She was doing well until 01/05 when noted onset of clinical decline - fatigue, headaches, vision changes, speech changes, changes in taste and smell. She was seen in clinic on 01/09/2022 by medical oncology and neurosurgery. She was taken for repeat resection by Dr. Ivey on . Pathology indicating Glioblastoma, IDH wild type, MGMT unmethylated. Radiation therapy was started on 01/31/2022. Chemotherapy was delayed by 2 days and thus was started on 02/02/2022. Overall this has been well tolerated. Most notable recently laboratory testing didindicate a decreased neutrophil count at 0.82. Thus temozolomide was held for 4 days until neutrophil count was recovered. Additionally temozolomide was decreased from 160 mg to 140 mg daily. Overall doing well with radiation and chemotherapy. She does have a few questions regarding recent labs, plans moving forward, follow-up. Of note, they do voice difficulty with the appointments as they were not notified of the appointmentchange from the previously scheduled appointment in the morning to this new appointment in afternoon. REVIEW OF SYSTEMS Constitutional: Positive for fatigue. Eyes: Positive for visual problems. The following systems were negative: Skin, ENT, Respiratory, Cardiovascular, Gastrointestinal, Genitourinary, Hematologic, Musculoskeletal The following portions of the patient's history were reviewed and updated as appropriate: allergies,current medications, family history, medical history, social history, surgical history and problem list OBJECTIVE There were no vitals taken for this visit. PHYSICAL EXAMINATION Physical Exam LABORATORY DATA: [facility] Results on 02/20/2022 Component Date Value ??? Course ID 02/20/2022 [id number] ??? Course Start Date 02/20/2022 01/01/2022 08:23 CDT ??? First Treatment Date 02/20/2022 01/31/2022 10:11 CDT ??? Last Treatment Date 02/20/2022 02/20/2022 09:06 CDT ??? Treatment Elapsed Days 02/20/2022 20 ??? Reference Point 02/20/2022 [id number] ??? Dosage Given to Date cGy 02/20/2022 3000 ??? Session Dosage Given 02/20/2022 200 ??? Plan ID 02/20/2022 [id number] ??? Fractions Treated to Date 02/20/2022 15 ??? Planned Total Fractions 02/20/2022 30 ??? Prescribed Dose Per Frac* 02/20/2022 200 ??? Prescription Dose in cGy 02/20/2022 6000 ??? Plan Primary Reference P* 02/20/2022 [id number] [facility] Results on 02/18/2022 Component Date Value ??? Course ID 02/18/2022 [id number] ??? Course Start Date 02/18/2022 01/01/2022 08:23 CDT ??? First Treatment Date 02/18/2022 01/31/2022 10:11 CDT ??? Last Treatment Date 02/18/2022 02/18/2022 12:58 CDT ??? Treatment Elapsed Days 02/18/2022 18 ??? Reference Point 02/18/2022 [id number] ??? Dosage Given to Date cGy 02/18/2022 2600 ??? Session Dosage Given 02/18/2022 200 ??? Plan ID 02/18/2022 [id number] ??? Fractions Treated to Date 02/18/2022 13 ??? Planned Total Fractions 02/18/2022 30 ??? Prescribed Dose Per Frac* 02/18/2022 200 ??? Prescription Dose in cGy 02/18/2022 6000 ??? Plan Primary Reference P* 02/18/2022 [id number] ??? Course ID 02/19/2022 [id number] ??? Course Start Date 02/19/2022 01/01/2022 08:23 CDT ??? First Treatment Date 02/19/2022 01/31/2022 10:11 CDT ??? Last Treatment Date 02/19/2022 02/19/2022 13:02 CDT ??? Treatment Elapsed Days 02/19/2022 19 ??? Reference Point 02/19/2022 [id number] ??? Dosage Given to Date cGy 02/19/2022 2800 ??? Session Dosage Given 02/19/2022 200 ??? Plan ID 02/19/2022 [id number] ??? Fractions Treated to Date 02/19/2022 14 ??? Planned Total Fractions 02/19/2022 30 ??? Prescribed Dose Per Frac* 02/19/2022 200 ??? Prescription Dose in cGy 02/19/2022 6000 ??? Plan Primary Reference P* 02/19/2022 [id number] [facility] Results on 02/15/2022 Component Date Value ??? Course ID 02/15/2022 [id number] ??? Course Start Date 02/15/2022 01/01/2022 08:23 CDT ??? First Treatment Date 02/15/2022 01/31/2022 10:11 CDT ??? Last Treatment Date 02/15/2022 02/15/2022 09:35 CDT ??? Treatment Elapsed Days 02/15/2022 15 ??? Reference Point 02/15/2022 [id number] ??? Dosage Given to Date cGy 02/15/2022 2400 ??? Session Dosage Given 02/15/2022 200 ??? Plan ID 02/15/2022 [id number] ??? Fractions Treated to Date 02/15/2022 12 ??? Planned Total Fractions 02/15/2022 30 ??? Prescribed Dose Per Frac* 02/15/2022 200 ??? Prescription Dose in cGy 02/15/2022 6000 ??? Plan Primary Reference P* 02/15/2022 [id number] Patient Message on 02/14/2022 Component Date Value ??? EXT Hemoglobin 02/18/2022 12 ??? EXT Leukocytes 02/18/2022 4.22 (A) ??? EXT Absolute Neutrophil * 02/18/2022 2.03 ??? EXT Lymphs Absolute 02/18/2022 1.74 ??? EXT Platelet Count 02/18/2022 576 (A) RADIOLOGICAL DATA: No MRI this visit. REPORTS: I personally reviewed current labs and imaging. ASSESSMENT / PLAN 1. Glioblastoma Mia Richardson presents today for follow up. In brief, she underwent biopsy on 12/05/2021 - pathology indicating at least grade 3 - astrocytoma, IDH wild type, MGMT unmethylated. Since that time, she has completed dexamethasone taper - which lead to difficulty in language. She was then seen in clinicon 01/03/[address] Cedeno, at that time, dexamethasone was being taken 4mg twice daily. She was doing well until 01/05 when noted onset of clinical decline - fatigue, headaches, vision changes, speech changes, changes in taste and smell. She was seen in clinic on 01/09/2022 by medical oncology and neurosurgery. She was taken for repeat resection by Dr. Ivey on . Pathology indicating Glioblastoma, IDH wild type, MGMT unmethylated. Radiation therapy was started on 01/31/2022. Chemotherapy was delayed by 2 days and thus was started on 02/02/2022. Overall this has been well tolerated. Most notable recently laboratory testing didindicate a decreased neutrophil count at 0.82. Thus temozolomide was held for 4 days until neutrophil count was recovered. Additionally temozolomide was decreased from 160 mg to 140 mg daily. She does have a few questions regarding, labs, treatment, schedule Labs - we did discuss that the labs from last week were obtained and were reviewed prior to the doseadjustment of the chemotherapy. Labs from this week have been obtained and have been entered and the chart. They are within range in indicates she can continue taking the chemotherapy. * she does have a question regarding additional labs that were obtained last week. These were thought to be from the integrative medicine clinic. The labs are that of cholesterol as well as thyroid testing. It does indicate a low TSH value. She states they were not aware this labs were reviewed inthe chart and they are unsure of the next steps. Will follow-up with integrative medicine clinic asI anticipate these were ordered by their clinic. I will advise their team to reach out to the patient to discuss plan moving forward Treatment-at this time will continue with radiation and concurrent temozolomide. When radiation is completed on 03/14/2022, chemotherapy will also be discontinued on that date. There will be a short break before she will return for MRI in oncology visit on 04/04/2022. At that time we will review the MRI as well as plan the chemotherapy only portion of treatment. We briefly discussed the chemotherapy, chemotherapy regimen, and the future treatment regimen. Schedule-we did review when radiation chemotherapy will be completed on 03/14/2022. Subsequent visit include Neuro-Ophthalmology on 03/25/2022 and 03/26/2022. Then following up with Oncology and Neurosurgery on 04/04/2022. * I did apologize for the schedule change as 1 of our providers had fallen ill and the counters needed to be adjusted. Plan: - continue with radiation and chemotherapy -continue weekly labs -follow-up orders in place -I will contact [facility] to follow-up regarding the additional labs they had ordered We will plan on seeing the patient back near the end of radiation therapy. However, patient knows tocontact us in the interim with any new or worsening symptoms or concerns. Seizures: Keppra 1000mg twice dialy Dexamethasone: Not currently taking Anticoagulation: aspirin 325mg 2. Low TSH Above, side from 02/13/2022 do indicate a low TSH value. Anticipate this was ordered by the integrative medicine clinic. I will touch base with their team and recommended the reach out to the patientregarding these labs and plan for follow-up. PATIENT EDUCATION: Ready to learn, no apparent learning barriers were identified; learning preferences include listening. Explained diagnosis and treatment plan; patient expressed understanding of the content. Discussed with the patient we work together as a care team of physicians, nurse practitioners/physician assistants, nurses and other software support technician that specialize in this cancer. Also, reviewed the importance of maintaining ongoing care with local oncology team and primary care physician. ADMINISTRATIVE BILLING: I personally spent over half of a total 30 minutes face to face with the patient in counseling and discussion and/or coordination of care as described above. documented in this encounter Plan of Treatment Upcoming Encounters Date Type Specialty Care Team Description 03/12/2022 Appointment Radiation Oncology Stephanie Gleason M.D. [address] [place] [phone] 03/12/2022 Appointment Radiation Oncology Stephanie Gleason M.D. [address] [place] [phone] 03/13/2022 Appointment Radiation Oncology Stephanie Gleason M.D. [address] [place] [phone] 03/14/2022 Appointment Radiation Oncology Stephanie Gleason M.D. [address] [place] [phone] 03/25/2022 Ancillary Procedure Ophthalmology Chas Shin M.D. [address] [place] [phone] 03/25/2022 Ancillary Procedure Ophthalmology 03/25/2022 Ancillary Procedure Ophthalmology Chas Shin M.D. [address] [place] [phone] 03/26/2022 Ancillary Procedure Ophthalmology Rebeca Valle, P.A.-C., M.S. [address] [place] [phone] 03/26/2022 Comprehensive Visit Ophthalmology Chas Shin M.D. [address] [place] [phone] 03/29/2022 Comprehensive Visit Endocrinology Farzana Allen M.D. [address] [place] [phone] 04/04/2022 Appointment Radiology Christina Tai P.A.-C., M.S. [address] [place] [phone] 04/04/2022 Office Visit Oncology Vini Maki M.D., Ph.D. [address] [place] [phone] 04/04/2022 Office Visit Neurological Surgery Charles Ivey M.D., Ph.D. [address] [place] [phone] 05/03/2022 Comprehensive Visit Clinical Genomics Sanya Mehta M.D. [address] [place] [phone] 05/06/2022 Clinical Communication Admitting/Central Scheduling 05/09/2022 Office Visit Oncology Farzana Allen M.D. [address] [place] [phone] Scheduled Referrals Name Type Priority Associated Diagnoses Order [facility] Oncology office Outpatient Referral Routine Expec anayeli: visit (clinic) 04/04/2022, General; Brain Expires: 05/23/2023 documented as of this encounter Visit Diagnoses Diagnosis Astrocytoma (HCC) - Primary Malignant Neoplasm Of Brain (HCC) documented in this encounter
--- OUTSIDE RECORDS SUMMARY | 2022-03-12 14:30 | XMS_ITS | Encounter Summary ---
:1970 Author Organization [facility] Address [address] [place] [address] Care Team Providers Name Role Phone Unavailable Primary Care Provider Unavailable Encounter Details Date Type Department Care Team Description 02/19/2022 Orders Only Pharmacy Prior Auth [place] Mikki Rodriguez [phone] Social History Tobacco Use Types Packs/Day Years [...] or relatives? How often do you attend religion or More than 4 times per year 01/07/2022 quaker services? Do you belong to any clubs or No 01/07/2022 organizations such as religion groups, unions, fraternal or athletic groups, or [...] have completed or the highest Maulik, MEd, PROTECTION SPECIALIST, 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 Sex Assigned at Date Recorded Female 01/07/2022 11:11 AM CDT documented as of this encounter Plan of Treatment Upcoming Encounters Date Type Specialty Care Team Description 03/12/2022 Appointment Radiation Oncology Stephanie Gleason M.D. [address] [place] [phone] 03/12/2022 Appointment Radiation Oncology Stephanie Gleason M.D. [address] [place] [phone] 03/13/2022 Appointment Radiation Oncology Stephanie Gleason M.D. [address] [place] [phone] 03/14/2022 Appointment Radiation Oncology Stephanie Gleason M.D. [address] [place] [phone] 03/25/2022 Ancillary Procedure Ophthalmology Chas Shin M.D. [address] [place] [phone] 03/25/2022 Ancillary Procedure Ophthalmology 03/25/2022 Ancillary Procedure Ophthalmology Chas Shin M.D. [address] [place] [phone] 03/26/2022 Ancillary Procedure Ophthalmology Rebeca Valle P.A.-C., M.S. [address] [place] [phone] 03/26/2022 Comprehensive Visit Ophthalmology Chas Shin M.D. [address] [place] [phone] 03/29/2022 Comprehensive Visit Endocrinology Farzana Allen M.D. [address] [place] [phone] 04/04/2022 Appointment Radiology Christina Tai P.A.-C., M.S. [address] [place] [phone] 04/04/2022 Office Visit Oncology iVni Maki M.D., Ph.D. [address] [place] [phone] 04/04/2022 Office Visit Neurological Surgery Charles Ivey M.D., Ph.D. [address] [place] [phone] 05/03/2022 Comprehensive Visit Clinical Genomics Sanya Mehta M.D. [address] [place] [phone] 05/06/2022 Clinical Communication Admitting/Central Scheduling 05/09/2022 Office Visit Oncology Farzana Allen M.D. [address] [place] [phone] documented as of this encounter Visit Diagnoses Not on filedocumented in this encounter
--- OUTSIDE RECORDS SUMMARY | 2022-03-12 14:31 | XMS_ITS | Encounter Summary ---
:1970 Author Organization [facility] Address [address] [place] [address] Care Team Providers Name Role Phone Unavailable Primary Care Provider Unavailable Reason for Visit Reason Comments Temodar question Encounter Details Date Type Department Care Team Description 02/13/2022 Clinical Communication Department of Rebeca Valle question Oncology in [place] Amado., M.S. [place], [facility] [place], [place] [address] [place] [phone] [place], [place] [phone] (Work) [phone] Social History Tobacco Use Types Packs/Day Years [...] or relatives? How often do you attend rastafari or More than 4 times per year 01/07/2022 alevism services? Do you belong to any clubs or No 01/07/2022 organizations such as rastafari groups, unions, fraternal or athletic groups, or [...] place to sleep or slept in a skilled nursing (including now)? Education Answer Date Recorded What is the highest level of school Master's degree (e.g., M A, MS, 01/07/2022 you have completed or the highest Maulik, MEd, PROCESS ASSISTANT, 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 Sex Assigned at Date Recorded Female 01/07/2022 11:11 AM CDT documented as of this encounter Miscellaneous Notes Telephone Encounter - Stacy Flanagan R.N. - 02/13/2022 4:40 PM CDT Left a detailed message on an identified voicemail for Ms Cedillo. Per Dr Cedeno, she may take 2 of the 140mg tablets this evening, since she is out of 20mg tablets. Telephone Encounter - Stacy Flanagan R.N. - 02/13/2022 4:15 PM CDT Called [facility] again to update them on TMZ prescription. [facility] maintains that a quantity of 21 pills were dispensed of the 20mg tablet. Because of this, they would not send the additional 10 tablets that patient is missing. At this time RN gave verbal order for 20mg tablets, with a quantity of 10. Pharmacist stated that she will expedite the prescription. Telephone Encounter - Stacy Flanagan R.N. - 02/13/2022 3:37 PM CDT SUBJECTIVE CHIEF COMPLAINT / REASON FOR CALL Temodar question Information Discussed Spoke with Ms Cedillo regarding her chemotherapy prescription. She states that she is short 10 pills, of the 20mg tablet. A 21 day supply was shipped, but there were only 11 in the bottle. Ms Cedillo does not have any 20mg pills left and she wants to know if she can take 2 of the 140mg tablets. RNwill call [facility] back and update them. PLAN Disposition/Recommendation: RN will contact [facility] regarding situation. Will discuss with physician if ok to just take 140mg, or 280mg tonight. Information/Education: patient/caller able to teach back Caller agreeable to plan of care: yes The following references were used: nursing clinical judgement Telephone Encounter - Stacy Flanagan RSanjuanitaN. - 02/13/2022 3:30 PM CDT Spoke with pharmacist at [facility] regarding TMZ prescription. Clarified that only half of the 42 dayquantity was shipped on 02/01. The remaining half is scheduled for shipment on 02/20. Will update the patient. documented in this encounter Plan of Treatment Upcoming Encounters Date Type Specialty Care Team Description 03/12/2022 Appointment Radiation Oncology Stephanie Gleason M.D. 200 [place] [phone] 03/12/2022 Appointment Radiation Oncology Stephanie Gleason M.D. 200 [place] [phone] 03/13/2022 Appointment Radiation Oncology Stephanie Gleason M.D. 200 [place] [phone] 03/14/2022 Appointment Radiation Oncology Stephanie Gleason M.D. [address] [place] [phone] 03/25/2022 Ancillary Procedure Ophthalmology Chas Shin M.D. [address] [place] [phone] 03/25/2022 Ancillary Procedure Ophthalmology 03/25/2022 Ancillary Procedure Ophthalmology Chas Shin M.D. [address] [place] [phone] 03/26/2022 Ancillary Procedure Ophthalmology Rebeca Valle P.A.-C., M.S. [address] [place] [phone] 03/26/2022 Comprehensive Visit Ophthalmology Chas Shin M.D. [address] [place] [phone] 03/29/2022 Comprehensive Visit Endocrinology Farzana Allen M.D. [address] [place] [phone] 04/04/2022 Appointment Radiology Christina Tai P.A.-C., M.S. [address] [place] [phone] 04/04/2022 Office Visit Oncology Vini Maki M.D., Ph.D. [address] [place] [phone] 04/04/2022 Office Visit Neurological Surgery Charles Ivey M.D., Ph.D. [address] [place] [phone] 05/03/2022 Comprehensive Visit Clinical Genomics Sanya Mehta M.D. [address] [place] [phone] 05/06/2022 Clinical Communication Admitting/Central Scheduling 05/09/2022 Office Visit Oncology Farzana Allen M.D. [address] [place] [phone] documented as of this encounter Visit Diagnoses Not on filedocumented in this encounter
--- OUTSIDE RECORDS SUMMARY | 2022-03-12 14:31 | XMS_ITS | Encounter Summary ---
:1970 Author Organization [facility] Address [address] [place] [address] Care Team Providers Name Role Phone Unavailable Primary Care Provider Unavailable Reason for Visit Radiation Therapy (Routine) - Authorized Specialty Diagnoses / Procedures Referred By Contact Refer red To Contact Diagnoses Malignant Neoplasm Of Brain (HCC) Stephanie Gleason M.D. [facility] Radiation Oncology Procedures Prior Auth Rad Tx [place] IMRT COMPLEX [address] [place] [address] [address] [facility] [place] [address] Referral ID Status Reason Start Date Expiration Date Visits V isits Requested Authorized [id number] Authorized 01/31/2022 12/31/2022 30 30 Encounter Details Date Type Department Care Team Description 02/13/2022 Hospital Encounter Department of Radiation Jacquelyn Gleason I., [place] [address] [facility] [address] [place] [phone] Social History Tobacco Use Types Packs/Day Years [...] or relatives? How often do you attend presybeterian or More than 4 times per year 01/07/2022 hindu services? Do you belong to any clubs or No 01/07/2022 organizations such as presybeterian groups, unions, fraternal or athletic groups, or [...] place to sleep or slept in a half-way (including now)? Education Answer Date Recorded What is the highest level of school Master's degree (e.g., [address], MS, 01/07/2022 you have completed or the highest Maulik, MEd, ASL INTERPRETER, 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 Sex Assigned at Date Recorded Female 01/07/2022 11:11 AM CDT documented as of this encounter Plan of Treatment Upcoming Encounters Date Type Specialty Care Team Description 03/12/2022 Appointment Radiation Oncology Stephanie Gleason M.D. 200 [place] [phone] 03/12/2022 Appointment Radiation Oncology Stephanie Gleason M.D. [address] [place] [phone] 03/13/2022 Appointment Radiation Oncology Stephanie Gleason M.D. [address] [place] [phone] 03/14/2022 Appointment Radiation Oncology Stephanie Gleason M.D. [address] [place] [phone] 03/25/2022 Ancillary Procedure Ophthalmology Chas Shin M.D. [address] [place] [phone] 03/25/2022 Ancillary Procedure Ophthalmology 03/25/2022 Ancillary Procedure Ophthalmology Chas Shin M.D. [address] [place] [phone] 03/26/2022 Ancillary Procedure Ophthalmology Rebeca Valle P.A.-Rusty., M.S. [address] [place] [phone] 03/26/2022 Comprehensive Visit Ophthalmology Chas Shin M.D. [address] [place] [phone] 03/29/2022 Comprehensive Visit Endocrinology Farzana Allen M.D. [address] [place] [phone] 04/04/2022 Appointment Radiology Christina Tai P.A.-Rusty., M.S. [address] [place] [phone] 04/04/2022 Office Visit Oncology Vini Maki M.D., Ph.D. [address] [place] [phone] 04/04/2022 Office Visit Neurological Surgery Charles Ivey M.D., Ph.D. [address] [place] [phone] 05/03/2022 Comprehensive Visit Clinical Genomics Sanya Mehta M.D. [address] [place] [phone] 05/06/2022 Clinical Communication Admitting/Central Scheduling 05/09/2022 Office Visit Oncology Farzana Allen M.D. [address] [place] [phone] documented as of this encounter Visit Diagnoses Not on filedocumented in this encounter
--- OUTSIDE RECORDS SUMMARY | 2022-03-12 14:31 | XMS_ITS | Encounter Summary ---
:1970 Author Organization [facility] Address [address] [place] [address] Care Team Providers Name Role Phone Unavailable Primary Care Provider Unavailable Reason for Visit Radiation Therapy (Routine) - Authorized Specialty Diagnoses / Procedures Referred By Contact Refer red To Contact Diagnoses Malignant Neoplasm Of Brain (HCC) Stephanie Gleason M.D. [facility] Radiation Oncology Procedures Prior Auth Rad Tx [place] IMRT COMPLEX [address] [place] [phone] [facility] [place] [address] Referral ID Status Reason Start Date Expiration Date Visits V isits Requested Authorized [id number] Authorized 01/31/2022 12/31/2022 30 30 Encounter Details Date Type Department Care Team Description 02/14/2022 Hospital Encounter Department of Radiation Jacquelyn Gleason I., [place] [address] [facility] [address] [place] [phone] Social History Tobacco Use Types Packs/Day Years [...] or relatives? How often do you attend jew or More than 4 times per year 01/07/2022 scientologist services? Do you belong to any clubs or No 01/07/2022 organizations such as jew groups, unions, fraternal or athletic groups, or [...] have completed or the highest Maulik, MEd, CLOTHING CUTTER, 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 Sex Assigned at Date Recorded Female 01/07/2022 11:11 AM CDT documented as of this encounter Plan of Treatment Upcoming Encounters Date Type Specialty Care Team Description 03/12/2022 Appointment Radiation Oncology Stephanie Gleason M.D. 200 [place] [phone] 03/12/2022 Appointment Radiation Oncology Stephanie Gleason M.D. [address] [place] [phone] 03/13/2022 Appointment Radiation Oncology Stephanie Gleason M.D. [address] [place] [phone] 03/14/2022 Appointment Radiation Oncology Stephanie Gleason M.D. [address] [place] [phone] 03/25/2022 Ancillary Procedure Ophthalmology Chas Shin M.D. [address] [place] [phone] 03/25/2022 Ancillary Procedure Ophthalmology 03/25/2022 Ancillary Procedure Ophthalmology Chas Shin M.D. [address] [place] [phone] 03/26/2022 Ancillary Procedure Ophthalmology Rebeca Valle P.A.-Rusty., M.S. [address] [place] [phone] 03/26/2022 Comprehensive Visit Ophthalmology Chas Shin M.D. [address] [place] [phone] 03/29/2022 Comprehensive Visit Endocrinology Farzana Allen M.D. [address] [place] [phone] 04/04/2022 Appointment Radiology Christina Tai P.A.-Rusty., M.S. [address] [place] [phone] 04/04/2022 Office Visit Oncology Vini Maki M.D., Ph.D. [address] [place] [phone] 04/04/2022 Office Visit Neurological Surgery Charles Ivey M.D., Ph.D. [address] [place] [phone] 05/03/2022 Comprehensive Visit Clinical Genomics Sanya Mehta M.D. [address] [place] [phone] 05/06/2022 Clinical Communication Admitting/Central Scheduling 05/09/2022 Office Visit Oncology Farzana Allen M.D. [address] [place] [phone] documented as of this encounter Visit Diagnoses Not on filedocumented in this encounter
--- OUTSIDE RECORDS SUMMARY | 2022-03-12 14:31 | XMS_ITS | Encounter Summary ---
:1970 Author Organization [facility] Address [address] [place] [address] Care Team Providers Name Role Phone Unavailable Primary Care Provider Unavailable Reason for Visit Radiation Therapy (Routine) - Authorized Specialty Diagnoses / Procedures Referred By Contact Refer red To Contact Diagnoses Malignant Neoplasm Of Brain (HCC) Stephanie Gleason M.D. [facility] Radiation Oncology Procedures Prior Auth Rad Tx [place] IMRT COMPLEX [address] [place] [phone] [facility] [place] [address] Referral ID Status Reason Start Date Expiration Date Visits V isits Requested Authorized [id number] Authorized 01/31/2022 12/31/2022 30 30 Encounter Details Date Type Department Care Team Description 02/15/2022 Hospital Encounter Department of Radiation Jacquelyn Gleason I., [place] [address] [facility] [address] [place] [phone] Social History Tobacco Use Types Packs/Day Years [...] or relatives? How often do you attend orthodoxy or More than 4 times per year 01/07/2022 spiritism services? Do you belong to any clubs or No 01/07/2022 organizations such as orthodoxy groups, unions, fraternal or athletic groups, or [...] have completed or the highest Maulik, MEd, INTERNAL MEDICINE SPECIALIST, 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 Sex Assigned at Date Recorded Female 01/07/2022 11:11 AM CDT documented as of this encounter Plan of Treatment Upcoming Encounters Date Type Specialty Care Team Description 03/12/2022 Appointment Radiation Oncology Stephanie Gleason M.D. 200 [place] [phone] 03/12/2022 Appointment Radiation Oncology Stephanie Gleason M.D. [address] [place] [phone] 03/13/2022 Appointment Radiation Oncology Stephanie Gleason M.D. [address] [place] [phone] 03/14/2022 Appointment Radiation Oncology Stephanie Gleason M.D. [address] [place] [phone] 03/25/2022 Ancillary Procedure Ophthalmology Chas Shin M.D. [address] [place] [phone] 03/25/2022 Ancillary Procedure Ophthalmology 03/25/2022 Ancillary Procedure Ophthalmology Chas Shin M.D. [address] [place] [phone] 03/26/2022 Ancillary Procedure Ophthalmology Rebeca Valle P.A.-Rusty., M.S. [address] [place] [phone] 03/26/2022 Comprehensive Visit Ophthalmology Chas Shin M.D. [address] [place] [phone] 03/29/2022 Comprehensive Visit Endocrinology Farzana Allen M.D. [address] [place] [phone] 04/04/2022 Appointment Radiology Christina Tai P.A.-Rusty., M.S. [address] [place] [phone] 04/04/2022 Office Visit Oncology Vini Maki M.D., Ph.D. [address] [place] [phone] 04/04/2022 Office Visit Neurological Surgery Charles Ivey M.D., Ph.D. [address] [place] [phone] 05/03/2022 Comprehensive Visit Clinical Genomics Sanya Mehta M.D. [address] [place] [phone] 05/06/2022 Clinical Communication Admitting/Central Scheduling 05/09/2022 Office Visit Oncology Farzana Allen M.D. [address] [place] [phone] documented as of this encounter Visit Diagnoses Not on filedocumented in this encounter
--- OUTSIDE RECORDS SUMMARY | 2022-03-12 14:31 | XMS_ITS | Encounter Summary ---
:1970 Author Organization [facility] Address [address] [place] [address] Care Team Providers Name Role Phone Unavailable Primary Care Provider Unavailable Reason for Visit Outpatient (Routine) - Closed Specialty Diagnoses / Procedures Referred By Contact Refer red To Contact Nutrition Diagnoses Astrocytoma (HCC) Farzana Allen M.D. [facility] [address] [place] [phone] Referral ID Status Reason Start Date Expiration Date Visits Requ ested Visits Authorized [id number] Closed 02/07/2022 02/07/2023 1 1 Encounter Details Date Type Department Care Team Description 02/19/2022 Telemedicine Department of Oncology Farzana Allen M.D. [address] [place] [phone] Astrocytoma (HCC) in [facility] Whitney Bran M.S., RDN, LD [address] [place] [phone] [place] [phone] Social History Tobacco Use Types Packs/Day Years [...] More than 4 times per year 01/07/2022 temple services? Do you belong to any clubs or No 01/07/2022 organizations such as temple groups, unions, [email or web address] or athletic groups, or school groups? How [...] have completed or the highest Maulik, MEd, RUBY DEVELOPER, 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 Sex Assigned at Date Recorded Female 01/07/2022 11:11 AM CDT documented as of this encounter Progress Notes Whitney Dowling M.S., BLAIR, YASIR - 02/19/2022 9:30 AM CDT CHIEF COMPLAINT/REASON FOR VISIT Ms. Mia Richardson was referred for ketogenic diet in the setting glioblastoma. Met with patient and mother. Consult conducted via real-time audio/video technology by Whitney Dowling M.S., BLAIR, LD in [facility] to the patient in her home. ASSESSMENT Nutrition Focused Physical Findings Mouth/Esophagus/Throat: altered sense of taste and smell Nausea/Vomiting: she has been using antiemetics earlier in the last in the last week or so due to. Bowels: constipation - senna, prunes Food/Nutrition Related History Diet Experience: She doesn't tolerate milk due to nausea. She also avoid wheat, corn and oats due to colon irritation related to her blood type. She has been eating salads but finds it difficult to tolerate with nausea. She has been eating tortillas with plant based cheese and artichokes. She shares concerns about meal preparation ability. Beverage/fluid intake: She drinks lots of water. Weight History Patient Weight: 02/12/22 : 93.6 kg 02/07/22 : 94.7 kg 02/05/22 : 94.3 kg BMI Readings from Last 1 Encounters: 02/12/22 32.77 kg/m?? Estimation of Nutritional Needs Calories: 1576 calories (MSJ basal) Protein: 75-95 grams NUTRITION DIAGNOSIS Food and nutrition-related knowledge deficit (NB-1.1) related to oncology nutrition as evidenced by no prior medical nutrition therapy on this topic. Nutrition Prescription/Recommendation Consider a lower carbohydrate diet. INTERVENTION Counseling: We discussed barriers that might prevent her from being successful with a ketogenic diet, including nausea, constipation, meal preparation concerns, etc. Therefore, I suggested that she could trial a low carbohydrate diet or limiting simple/refined sugars. We also discussed that there is a lack of evidence to support changes to our diets based on blood types. Ms. Cedillo and her mother had a variety of non-nutrition concerns, including lab scheduling, constipation medications, TSH, etc. that I encouraged her to discuss with her oncology team. MONITORING AND EVALUATION: Nutrition parameter to monitor: Food intake Desired Outcome: Modify Patient Goal(s): 1. Consider a lower carbohydrate diet. Time spent with patient (minutes): 60 documented in this encounter Plan of Treatment Upcoming Encounters Date Type Specialty Care Team Description 03/12/2022 Appointment Radiation Oncology Stephanie Gleason M.D. 200 [place] [phone] 03/12/2022 Appointment Radiation Oncology Stephanie Gleason M.D. 200 [place] [phone] 03/13/2022 Appointment Radiation Oncology Stephanie Gleason M.D. [address] [place] [phone] 03/14/2022 Appointment Radiation Oncology Stephanie Gleason M.D. [address] [place] [phone] 03/25/2022 Ancillary Procedure Ophthalmology Chas Shin M.D. [address] [place] [phone] 03/25/2022 Ancillary Procedure Ophthalmology 03/25/2022 Ancillary Procedure Ophthalmology Chas Shin M.D. [address] [place] [phone] 03/26/2022 Ancillary Procedure Ophthalmology Rebeca Valle P.A.-C., M.S. [address] [place] [phone] 03/26/2022 Comprehensive Visit Ophthalmology Chas Shin M.D. [address] [place] [phone] 03/29/2022 Comprehensive Visit Endocrinology Farzana Allen M.D. [address] [place] [phone] 04/04/2022 Appointment Radiology Christina Tai P.A.-C., M.S. [address] [place] [phone] 04/04/2022 Office Visit Oncology Vini Maki M.D., Ph.D. [address] [place] [phone] 04/04/2022 Office Visit Neurological Surgery Charles Ivey M.D., Ph.D. [address] [place] [address] [phone] 05/03/2022 Comprehensive Visit Clinical Genomics Sanya Mehta M.D. [address] [place] [address] [phone] 05/06/2022 Clinical Communication Admitting/Central Scheduling 05/09/2022 Office Visit Oncology Farzana Allen M.D. [address] [place] [address] [phone] documented as of this encounter Visit Diagnoses Diagnosis Astrocytoma (HCC) documented in this encounter
--- OUTSIDE RECORDS SUMMARY | 2022-03-12 14:31 | XMS_ITS | Encounter Summary ---
:1970 Author Organization [facility] Address [address] [place] [address] Care Team Providers Name Role Phone Unavailable Primary Care Provider Unavailable Reason for Visit Radiation Therapy (Routine) - Authorized Specialty Diagnoses / Procedures Referred By Contact Refer red To Contact Diagnoses Malignant Neoplasm Of Brain (HCC) Stephanie Gleason M.D. [facility] Radiation Oncology Procedures Prior Auth Rad Tx [place] IMRT COMPLEX [address] [place] [address] [address] [facility] [place] [address] Referral ID Status Reason Start Date Expiration Date Visits V isits Requested Authorized [id number] Authorized 01/31/2022 12/31/2022 30 30 Encounter Details Date Type Department Care Team Description 02/19/2022 Hospital Encounter Department of Radiation Jacquelyn Gleason I., Oncology in [place] [address] [facility] [address] [place] [phone] Social History Tobacco Use Types Packs/Day Years [...] or relatives? How often do you attend pentecostal or More than 4 times per year 01/07/2022 yarsanism services? Do you belong to any clubs or No 01/07/2022 organizations such as pentecostal groups, unions, fraternal or athletic groups, or [...] place to sleep or slept in a retirement (including now)? Education Answer Date Recorded What is the highest level of school Master's degree (e.g., [address], [place], 01/07/2022 you have completed or the highest Maulik, MEd, LIMEROCK TOWER LOADER, 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 Sex Assigned at Date Recorded Female 01/07/2022 11:11 AM CDT documented as of this encounter Plan of Treatment Upcoming Encounters Date Type Specialty Care Team Description 03/12/2022 Appointment Radiation Oncology Stephanie Gleason M.D. 200 [place] [phone] 03/12/2022 Appointment Radiation Oncology Stephanie Gleason M.D. [address] [place] [address] [phone] 03/13/2022 Appointment Radiation Oncology Stephanie Gleason M.D. [address] [place] [phone] 03/14/2022 Appointment Radiation Oncology Stephanie Gleason M.D. [address] [place] [phone] 03/25/2022 Ancillary Procedure Ophthalmology Chas Shin M.D. [address] [place] [phone] 03/25/2022 Ancillary Procedure Ophthalmology 03/25/2022 Ancillary Procedure Ophthalmology Chas Shin M.D. [address] [place] [phone] 03/26/2022 Ancillary Procedure Ophthalmology Rebeca Valle P.A.-Rusty., M.S. [address] [place] [phone] 03/26/2022 Comprehensive Visit Ophthalmology Chas Shin M.D. [address] [place] [address] [phone] 03/29/2022 Comprehensive Visit Endocrinology Farzana Allen M.D. [address] [place] [phone] 04/04/2022 Appointment Radiology Christina Tai P.A.-Rusty., M.S. [address] [place] [phone] 04/04/2022 Office Visit Oncology Vini Maki M.D., Ph.D. [address] [place] [phone] 04/04/2022 Office Visit Neurological Surgery Charles Ivey M.D., Ph.D. [address] [place] [phone] 05/03/2022 Comprehensive Visit Clinical Genomics Sanya Mehta M.D. [address] [place] [phone] 05/06/2022 Clinical Communication Admitting/Central Scheduling 05/09/2022 Office Visit Oncology Farzana Allen M.D. [address] [place] [phone] documented as of this encounter Visit Diagnoses Not on filedocumented in this encounter
--- OUTSIDE RECORDS SUMMARY | 2022-03-12 14:31 | XMS_ITS | Encounter Summary ---
:1970 Author Organization [facility] Address [address] [place] [phone] Care Team Providers Name Role Phone Unavailable Primary Care Provider Unavailable Reason for Visit Reason Comments labs only 02/13/22 01/28/22 labs Encounter Details Date Type Department Care Team Description 02/13/2022 Clinical Communication Department of Latanya Michael lab s only 02/13/22; Oncology in [place], R[facility]N., O.C.N. 01/28/22 labs [place], [address] [place], [place] [address] [place] [phone] [place] [address] Social History Tobacco Use Types Packs/Day Years [...] or relatives? How often do you attend hinduism or More than 4 times per year 01/07/2022 congregation services? Do you belong to any clubs or No 01/07/2022 organizations such as hinduism groups, unions, fraternal or athletic groups, or [...] have completed or the highest Maulik, MEd, HEAD SCREEN WORKER, 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 Sex Assigned at Date Recorded Female 01/07/2022 11:11 AM CDT documented as of this encounter Miscellaneous Notes Telephone Encounter - Olivia Koenig D.N.P., M.Domingo., R.N., [facility] - 02/14/2022 3:46 PM CDT Labs Verified Electronically signed by Olivia Koenig D.N.P., M.A., R.N., [facility] at 02/14/2022 3:46 PM CDT Telephone Encounter - Trupti Pearson - 02/14/2022 3:41 PM CDT Labs have been entered and are ready for review. Telephone Encounter - Amelie Wiley - 02/14/2022 2:45 PM CDT Labs drawn on M< are here. Copy is in document viewer. There are alert value(s) which are: ANC 0.82 Thank you, Kala RST ONC [facility] AA POD 1 Telephone Encounter - Amelie Wiley - 02/14/2022 1:34 PM CDT Faxed request to [facility] to send latest labs Telephone Encounter - Olivia Koenig D.N.P., Esteban., R.N., [facility] - 02/13/2022 4:28 PM CDT Labs Verified Telephone Encounter - Trupti Pearson - 02/13/2022 4:21 PM CDT Labs have been entered and are ready for review. documented in this encounter Plan of Treatment Upcoming Encounters Date Type Specialty Care Team Description 03/12/2022 Appointment Radiation Oncology Stephanie Gleason M.D. [address] [place] [phone] 03/12/2022 Appointment Radiation Oncology Stephanie Gleason M.D. [address] [place] [address] [phone] 03/13/2022 Appointment Radiation Oncology Stephanie Gleason M.D. [address] [place] [address] [phone] 03/14/2022 Appointment Radiation Oncology Stephanie Gleason M.D. [address] [place] [address] [phone] 03/25/2022 Ancillary Procedure Ophthalmology Chas Shin M.D. [address] [place] [address] [phone] 03/25/2022 Ancillary Procedure Ophthalmology 03/25/2022 Ancillary Procedure Ophthalmology Chas Shin M.D. [address] [place] [phone] 03/26/2022 Ancillary Procedure Ophthalmology Rebeca Valle P.A.-C., M.S. [address] [place] [phone] 03/26/2022 Comprehensive Visit Ophthalmology Chas Shin M.D. [address] [place] [phone] 03/29/2022 Comprehensive Visit Endocrinology Farzana Allen M.D. [address] [place] [phone] 04/04/2022 Appointment Radiology Christina Tai, Tu.Domingo.-C., M.S. [address] [place] [phone] 04/04/2022 Office Visit Oncology Vini Maki M.D., Ph.D. [address] [place] [phone] 04/04/2022 Office Visit Neurological Surgery Charles Ivey M.D., Ph.D. [address] [place] [phone] 05/03/2022 Comprehensive Visit Clinical Genomics Sanya Mehta M.D. [address] [place] [phone] 05/06/2022 Clinical Communication Admitting/Central Scheduling 05/09/2022 Office Visit Oncology Farzana Allen M.D. [address] [place] [phone] documented as of this encounter Procedures Procedure Name Priority Date/Time Associated Diagnosis Comme nts HEMATOLOGY/ONCOLOGY Routine 02/13/2022 9:30 AM R esults for this - BLOOD, EXTERNAL CDT procedure are in LAB RESULTS the results section. HEMATOLOGY/ONCOLOGY Routine 01/28/2022 1:45 PM R esults for this - BLOOD, EXTERNAL CDT procedure are in LAB RESULTS the results section. documented in this encounter Results (ABNORMAL) Hematology/Oncology - Blood, External Lab Results (02/13/2022 9:30 AM CDT) [facility] gist Method Time Signature EXT Hemoglobin 12.5 12 - 15.5 OTHER (SPECIFY IN STUFFER) EXT Leukocytes 2.61 (A) 5 - 10 OTHER (SPECIFY IN STUFFER) EXT Absolute 0.82 (A) 1.7 - 7 OTHER Neutrophil Count (SPECIFY IN STUFFER) EXT Lymphs 1.45 0.9 - OTHER Absolute 2.90 (SPECIFY IN STUFFER) EXT Monocytes 0.20 (A) 0.3 - 0.9 OTHER Absolute (SPECIFY IN STUFFER) EXT Eosinophils 0.11 0.0 - 0.5 OTHER Absolute (SPECIFY IN STUFFER) EXT Basophils 0.03 0.0 - 0.2 OTHER (SPECIFY IN STUFFER) EXT Platelet 260 150 - 450 OTHER Count (SPECIFY IN STUFFER) EXT Magnesium 2.1 1.5 - 2.6 OTHER (SPECIFY IN STUFFER) EXT Cholesterol, 225 (A) 90 - 199 OTHER Total, S (SPECIFY IN STUFFER) EXT 107 40 - 149 OTHER Triglycerides, S (SPECIFY IN STUFFER) EXT Cholesterol, 53 >=50 OTHER HDL, S (SPECIFY IN STUFFER) EXT LDL 151 <100 OTHER Cholesterol (SPECIFY IN STUFFER) EXT TSH, 0.015 (A) 0.270 - OTHER Sensitive 4.2 (SPECIFY IN STUFFER) Specimen (Source) Anatomical Collection Method Collection Time Re ceived Time Location / / Volume Laterality Blood 02/13/2022 9:30 AM CDT Narrative This result has an attachment that is no t available. Historical Provider LAB BLOOD NON ADD-ON Performing Organization Address City/State/ZIP Code Phon e Number OTHER (SPECIFY IN STUFFER) OTHER (SPECIFY IN STUFFER) N/A (ABNORMAL) Hematology/Oncology - Blood, External Lab Results (01/28/2022 1:45 PM CDT) [facility] gist Method Time Signature EXT Hemoglobin 10.9 (A) 12.0 - OTHER 15.5 (SPECIFY IN STUFFER) EXT Leukocytes 8.01 5.0 - 10.0 OTHER (SPECIFY IN STUFFER) EXT Absolute 3.29 1.70 - 7.0 OTHER Neutrophil Count (SPECIFY IN STUFFER) EXT Lymphs 3.97 (A) 0.90 - OTHER Absolute 2.90 (SPECIFY IN STUFFER) EXT Platelet 360 150 - 450 OTHER Count (SPECIFY IN STUFFER) EXT AST 35 12 - 35 OTHER (SPECIFY IN STUFFER) EXT ALT 21 4 - 35 OTHER (SPECIFY IN STUFFER) EXT Alkaline 53 40 - 150 OTHER Phosphatase (SPECIFY IN STUFFER) EXT Bilirubin, 0.5 0.1 - 1.5 OTHER Total mg/dL (SPECIFY IN STUFFER) EXT Albumin 3.9 3.3 - 5.0 OTHER g/dL (SPECIFY IN STUFFER) EXT Sodium 134 (A) 135 - 149 OTHER mmol/L (SPECIFY IN STUFFER) EXT Potassium 4.1 3.6 - 5.1 OTHER (SPECIFY IN STUFFER) EXT Calcium, 8.6 8.4 - 10.6 OTHER Total (SPECIFY IN STUFFER) EXT Creatinine 0.7 0.5 - 1.5 OTHER mg/dL (SPECIFY IN STUFFER) EXT Glucose, 180 104 60 - 115 OTHER Min (SPECIFY IN STUFFER) Specimen (Source) Anatomical Collection Method Collection Time Re ceived Time Location / / Volume Laterality Blood 01/28/2022 1:45 PM CDT Historical Provider LAB BLOOD NON ADD-ON Performing Organization Address City/State/ZIP Code Phon e Number OTHER (SPECIFY IN STUFFER) OTHER (SPECIFY IN STUFFER) N/A documented in this encounter Visit Diagnoses Not on filedocumented in this encounter
--- OUTSIDE RECORDS SUMMARY | 2022-03-12 14:31 | XMS_ITS | Encounter Summary ---
:1970 Author Organization [facility] Address [address] [place] [address] Care Team Providers Name Role Phone Unavailable Primary Care Provider Unavailable Reason for Visit Radiation Therapy (Routine) - Authorized Specialty Diagnoses / Procedures Referred By Contact Refer red To Contact Diagnoses Malignant Neoplasm Of Brain (HCC) Stephanie Gleason M.D. [facility] Radiation Oncology Procedures Prior Auth Rad Tx [place] IMRT COMPLEX [address] [place] [address] [address] [facility] [place] [address] Referral ID Status Reason Start Date Expiration Date Visits V isits Requested Authorized [id number] Authorized 01/31/2022 12/31/2022 30 30 Encounter Details Date Type Department Care Team Description 02/18/2022 Hospital Encounter Department of Radiation Jacquelyn Gleason I., [place] [address] [facility] [address] [place] [phone] Social History Tobacco Use Types Packs/Day Years [...] or relatives? How often do you attend baptist or More than 4 times per year 01/07/2022 synagogue services? Do you belong to any clubs or No 01/07/2022 organizations such as baptist groups, unions, fraternal or athletic groups, or [...] have completed or the highest Maulik, MEd, HOTEL BREAKFAST ATTENDANT, 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 Sex Assigned at Date Recorded Female 01/07/2022 11:11 AM CDT documented as of this encounter Plan of Treatment Upcoming Encounters Date Type Specialty Care Team Description 03/12/2022 Appointment Radiation Oncology Stephanie Gleason M.D. 200 [place] [phone] 03/12/2022 Appointment Radiation Oncology Stephanie Gleason M.D. [address] [place] [phone] 03/13/2022 Appointment Radiation Oncology Stephanie Gleason M.D. [address] [place] [phone] 03/14/2022 Appointment Radiation Oncology Stephanie Gleason M.D. [address] [place] [phone] 03/25/2022 Ancillary Procedure Ophthalmology Chas Shin M.D. [address] [place] [phone] 03/25/2022 Ancillary Procedure Ophthalmology 03/25/2022 Ancillary Procedure Ophthalmology Chas Shin M.D. [address] [place] [phone] 03/26/2022 Ancillary Procedure Ophthalmology Rebeca Valle P.A.-Rusty., M.S. [address] [place] [phone] 03/26/2022 Comprehensive Visit Ophthalmology Chas Shin M.D. [address] [place] [address] [phone] 03/29/2022 Comprehensive Visit Endocrinology Farzana Allen M.D. [address] [place] [phone] 04/04/2022 Appointment Radiology Christina Tai P.A.-Rusty., M.S. [address] [place] [phone] 04/04/2022 Office Visit Oncology Vini Maki M.D., Ph.D. [address] [place] [phone] 04/04/2022 Office Visit Neurological Surgery Charles Ivey M.D., Ph.D. [address] [place] [phone] 05/03/2022 Comprehensive Visit Clinical Genomics Sanya Mehta M.D. [address] [place] [phone] 05/06/2022 Clinical Communication Admitting/Central Scheduling 05/09/2022 Office Visit Oncology Farzana Allen M.D. [address] [place] [phone] documented as of this encounter Visit Diagnoses Not on filedocumented in this encounter
--- OUTSIDE RECORDS SUMMARY | 2022-03-12 14:31 | XMS_ITS | Encounter Summary ---
:1970 Author Organization [facility] Address [address] [place] [address] Care Team Providers Name Role Phone Unavailable Primary Care Provider Unavailable Reason for Visit Reason Comments Labs Only Encounter Details Date Type Department Care Team Description 02/14/2022 Clinical Communication Department of Oncology Olivia Sanchez Labs Only in [facility], Pillo.N.P., M.A., [place] R.N., [facility]- 200 [facility] [address] [place] [phone] Social History Tobacco Use Types Packs/Day Years [...] or relatives? How often do you attend bahai or More than 4 times per year 01/07/2022 sikh services? Do you belong to any clubs or No 01/07/2022 organizations such as bahai groups, unions, fraternal or athletic groups, or [...] have completed or the highest Maulik, MEd, PAYABLE PROCESSOR, 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 Sex Assigned at Date Recorded Female 01/07/2022 11:11 AM CDT documented as of this encounter Miscellaneous Notes Telephone Encounter - Olivia Koenig D.N.P., M.A., R.N., HNB-BC - 02/14/2022 3:09 PM CDT SUBJECTIVE Astrocytoma CHIEF COMPLAINT / REASON FOR CALL Labs Only Information Discussed I spoke with Ms Cedillo and her mother Libby. Ms Cedillo's lab results came back, and her 02/13/22 ANCresult is 0.82, down from 01/28/22 result of 3.29. Unfortunately, there was some confusion with when Ms Cedillo needed to have labs drawn, so there are no other labs to trend. I explained to Ms Cedillo and Libby that this can happen when taking the Temozolomide, but at this point Ms Cedillo would need tostop taking the chemotherapy. I discussed neutropenia precautions with them and explained that Dr Cedeno would like Ms Cedillo to redraw her labs on Friday. I provided additional education on having weekly labs drawn, and recommended talking with [facility] to learn about their scheduling options. I will also provide additional information on neutropenia precautions to the patient through the patient portal. PLAN Ms Cedillo will have labs drawn again on Friday, send a portal message after, and the medical oncology team will review the results and send recommendations Disposition/Recommendation: repeat labs on 02/18/22 Information/Education: patient/caller able to teach back Caller agreeable to plan of care: yes The following references were used: nursing clinical judgement and provider Dr Cedeno Electronically signed by Olivia Koenig D.N.P., M.A., R.N., [facility]- at 02/14/2022 3:18 PM CDT documented in this encounter Plan of Treatment Upcoming Encounters Date Type Specialty Care Team Description 03/12/2022 Appointment Radiation Oncology Stephanie Gleason M.D. [address] [place] [address] [phone] 03/12/2022 Appointment Radiation Oncology Stephanie Gleason M.D. [address] [place] [phone] 03/13/2022 Appointment Radiation Oncology Stephanie Gleason M.D. [address] [place] [phone] 03/14/2022 Appointment Radiation Oncology Stephanie Gleason M.D. [address] [place] [phone] 03/25/2022 Ancillary Procedure Ophthalmology Chas Shin M.D. [address] [place] [address] [phone] 03/25/2022 Ancillary Procedure Ophthalmology 03/25/2022 Ancillary Procedure Ophthalmology Chas Shin M.D. [address] [place] [address] [phone] 03/26/2022 Ancillary Procedure Ophthalmology Rebeca Valle P.A.-C., M.S. [address] [place] [address] [phone] 03/26/2022 Comprehensive Visit Ophthalmology Chas Shin M.D. [address] [place] [phone] 03/29/2022 Comprehensive Visit Endocrinology Farzana Allen M.D. [address] [place] [phone] 04/04/2022 Appointment Radiology Christina Tai P.A.-C., M.S. [address] [place] [phone] 04/04/2022 Office Visit Oncology Vini Maki M.D., Ph.D. [address] [place] [phone] 04/04/2022 Office Visit Neurological Surgery Charles Ivey M.D., Ph.D. [address] [place] [phone] 05/03/2022 Comprehensive Visit Clinical Genomics Sanya Mehta M.D. [address] [place] [phone] 05/06/2022 Clinical Communication Admitting/Central Scheduling 05/09/2022 Office Visit Oncology Farzana Allen M.D. [address] [place] [phone] documented as of this encounter Visit Diagnoses Not on filedocumented in this encounter
--- OUTSIDE RECORDS SUMMARY | 2022-03-12 14:31 | XMS_ITS | Encounter Summary ---
:1970 Author Organization [facility] Address [address] [place] [address] Care Team Providers Name Role Phone Unavailable Primary Care Provider Unavailable Encounter Details Date Type Department Care Team Description 02/15/2022 Orders Only Department of Neurology in Karthikeyan Cedeno M.D. [place], [place] [address] [facility] [address] [place] [phone] (Wo rk) Social History Tobacco Use Types Packs/Day Years [...] or relatives? How often do you attend sikh or More than 4 times per year 01/07/2022 latter day services? Do you belong to any clubs or No 01/07/2022 organizations such as sikh groups, unions, fraternal or athletic groups, or [...] have completed or the highest Maulik, MEd, SHIP'S SURVEYOR, 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 Sex Assigned at Date Recorded Female 01/07/2022 11:11 AM CDT documented as of this encounter Plan of Treatment Upcoming Encounters Date Type Specialty Care Team Description 03/12/2022 Appointment Radiation Oncology Stephanie Gleason M.D. [address] [place] [address] [phone] 03/12/2022 Appointment Radiation Oncology Stephanie Gleason M.D. [address] [place] [address] [phone] 03/13/2022 Appointment Radiation Oncology Stephanie Gleason M.D. [address] [place] [address] [phone] 03/14/2022 Appointment Radiation Oncology Stephanie Gleason M.D. [address] [place] [address] [phone] 03/25/2022 Ancillary Procedure Ophthalmology Chas Shin M.D. [address] [place] [address] [phone] 03/25/2022 Ancillary Procedure Ophthalmology 03/25/2022 Ancillary Procedure Ophthalmology Chas Shin M.D. [address] [place] [phone] 03/26/2022 Ancillary Procedure Ophthalmology Rebeca Valle P.A.-C., M.S. [address] [place] [address] [phone] 03/26/2022 Comprehensive Visit Ophthalmology Chas Shin M.D. [address] [place] [phone] 03/29/2022 Comprehensive Visit Endocrinology Farzana Allen M.D. [address] [place] [phone] 04/04/2022 Appointment Radiology Christina Tai P.A.-C., M.S. [address] [place] [phone] 04/04/2022 Office Visit Oncology Vini Maki M.D., Ph.D. [address] [place] [phone] 04/04/2022 Office Visit Neurological Surgery Charles Ivey M.D., Ph.D. [address] [place] [phone] 05/03/2022 Comprehensive Visit Clinical Genomics Sanya Mehta M.D. [address] [place] [phone] 05/06/2022 Clinical Communication Admitting/Central Scheduling 05/09/2022 Office Visit Oncology Farzana Allen M.D. [address] [place] [phone] documented as of this encounter Visit Diagnoses Not on filedocumented in this encounter
--- OUTSIDE RECORDS SUMMARY | 2022-03-12 14:31 | XMS_ITS | Encounter Summary ---
:1970 Author Organization [facility] Address [address] [place] [address] Care Team Providers Name Role Phone Unavailable Primary Care Provider Unavailable Reason for Referral Radiation Therapy (Routine) - Authorized Specialty Diagnoses / Procedures Referred By Contact Refer red To Contact Diagnoses Malignant Neoplasm Of Brain (HCC) Stephanie Gleason M.D. [facility] Radiation Oncology Procedures Management Visit [address] [facility] [place], [place] [phone] [place] [address] Referral ID Status Reason Start Date Expiration Date Visits V isits Requested Authorized [id number] Authorized 12/31/2021 12/31/2022 10 10 Reason for Visit Radiation Therapy (Routine) - Authorized Specialty Diagnoses / Procedures Referred By Contact Refer red To Contact Diagnoses Malignant Neoplasm Of Brain (HCC) Stephanie Gleason M.D. [facility] Radiation Oncology Procedures Management Visit [address] [place] [phone] [place] [address] Referral ID Status Reason Start Date Expiration Date Visits V isits Requested Authorized [id number] Authorized 12/31/2021 12/31/2022 10 10 Encounter Details Date Type Department Care Team Description 02/12/2022 Hospital Encounter Department of Stephanie Gleason Neoplasm Radiation Oncology Sebastian Marcelino Of Brain (HCC) in [place], [facility] [address] [place], [place] [address] [facility] [address] [place], [place] [phone] (Work) [phone] Social History Tobacco Use Types Packs/Day Years [...] More than 4 times per year 01/07/2022 jain services? Do you belong to any clubs [...] have completed or the highest Maulik, MEd, [employer] MEMBER, 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 Sex Assigned at Date Recorded Female 01/07/2022 11:11 AM CDT documented as of this encounter Last Filed Vital Signs Vital Sign Reading Time Taken Comments Blood Pressure 125/82 02/12/2022 8:01 AM CDT Pulse 61 02/12/2022 8:01 AM CDT Temperature 36.1 ??C (96.9 ??F) 02/12/2022 8:01 AM CDT Respiratory Rate - - Oxygen Saturation - - Inhaled Oxygen Concentration - - Weight 93.6 kg (206 lb 5.6 oz) 02/12/2022 8:01 AM CDT Height - - Body Mass Index 32.77 01/24/2022 9:36 AM CDT documented in this [...] before Temozolomide on Days 1 to 42. sulfamethoxazole-trimeth Take 1 tablet by 90 tablet 3 01/2901/29/2023 oprim (BACTRIM,SEPTRA) mouth daily. For 400-80 mg per prophylaxis. tabletIndications: Continue until Malignant Neoplasm Of recovery of Brain (HCC) lymphopenia after completion of temozolomide. prochlorperazine Take 1 tablet (10 mg 30 tablet 3 2 01/29/2023 (COMPAZINE) 10 mg total) by mouth tabletIndications: every 6 (six) hours Malignant Neoplasm Of as needed for nausea Brain (HCC) or vomiting (unrelieved by ondansetron). VITAMIN B COMPLEX ORAL Take 1 tablet [...] hours as needed for nausea or vomiting. temozolomide (TEMODAR) Take 1 capsule (140 42 [...] on Sat and Sun. On empty stomach. 25/iron Take 1 tablet by 0 fum/folic/dha mouth daily. (-1 ORAL) TURMERIC ORAL Take 1 capsule by 0 /0 02/2022 mouth daily. documented as of this encounter Progress Stephanie Lowry M.D. - 02/12/2022 8:00 AM CDT ATTESTATION FOR MANAGEMENT VISIT I saw and evaluated the patient and participated in the hill portions of the service as noted below.I reviewed the documentation of Ms. Eileen Hopkins RN and agree with the findings and plan. The patient appears well on exam. We will continue with radiation as planned and monitor weekly. Stephanie Gleason M.D., 02/12/2022 SUBJECTIVE REASON FOR VISIT Evaluation for side effects while receiving radiation treatment for 1. Malignant Neoplasm Of Brain (HCC) SUPERVISED BY: Stephanie Gleason M.D. HISTORY OF PRESENT ILLNESS Mia Richardson is a 51 y.o. 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 She is now undergoing intensity modulated radiotherapy along with Temodar. Treatment Course: 1xBrain Plan ID Fractions Dose / Fraction (cGy) Dose Treated (cGy) Dose Planned (cGy) First Treatment Last Treatment Elapsed Days [id number] 200 [id number] 01/31/2022 02/11/2022 11 Course Summary 01/31/2022 02/11/2022 11 The patient was seen and examined today with Dr. Gleason. The patient reports that she is doing well overall. She has been working on Gabapentin taper and this is going well. Patient denies vomiting, fevers, seizure activity, hearing changes, skin changes or new hair loss. She has noticed occasional hot flash since her surgery. Friday she noticed slight n ausea but this improved with taking anti-emetic. Vision has improved significantly. Patient was able to visit with OT rehab in [place] and this went well. PATIENT REPORTED SYMPTOM SCREEN FATIGUE (Scale: 0 = no fatigue; 10 = worst fatigue you can imagine): 3 PAIN (Scale: 0 = no pain; 10 = worst pain you can imagine): 0 OVERALL QUALITY OF LIFE (Scale: 0 = as bad as can be; 10 = as good as can be): 6 OBJECTIVE BP 125/82 (BP Location: Right arm, Patient Position: Sitting, Cuff Size: Regular) Pulse 61 Temp 36.1 ??C (Temporal) Wt 93.6 kg BMI 32.77 kg/m?? PHYSICAL EXAM General: Alert and oriented in no apparent distress. ASSESSMENT / PLAN #1 Glioblastoma, IDH-wildtype, MGMT non-methylated #2 Intensity modulated radiotherapy to the left sided cavity and SAMMY enhancement initiated on January 31, 2022; anticipated date of completion is on March 14, 2022; along with Temodar The patient is tolerating radiation treatment well overall. We will continue to monitor symptoms. We will continue to see patient in weekly management visits through out her course of radiation therapy. She will contact us with any questions or concerns. We will continue with radiation treatment as planned. Signed by: Eileen Hopkins R.N. 02/12/2022 8:21 AM CDT documented in this encounter Plan of Treatment Upcoming Encounters Date Type Specialty Care Team Description 03/12/2022 Appointment Radiation Oncology Stephanie Gleason M.D. [address] [place] [phone] 03/12/2022 Appointment Radiation Oncology Stephanie Gleason M.D. [address] [place] [phone] 03/13/2022 Appointment Radiation Oncology Stephanie Gleason M.D. [address] [place] [phone] 03/14/2022 Appointment Radiation Oncology Stephanie Gleason M.D. [address] [place] [phone] 03/25/2022 Ancillary Procedure Ophthalmology Chas Shin M.D. [address] [place] [phone] 03/25/2022 Ancillary Procedure Ophthalmology 03/25/2022 Ancillary Procedure Ophthalmology Chas Shin M.D. [address] [place] [phone] 03/26/2022 Ancillary Procedure Ophthalmology Rebeca Valle P.A.-C., M.S. [address] [place] [phone] 03/26/2022 Comprehensive Visit Ophthalmology Chas Shin M.D. [address] [place] [phone] 03/29/2022 Comprehensive Visit Endocrinology Farzana Allen M.D. [address] [place] [phone] 04/04/2022 Appointment Radiology Christina Tai P.A.-C., M.S. [address] [place] [phone] 04/04/2022 Office Visit Oncology Vini Maki M.D., Ph.D. [address] [place] [address] [phone] 04/04/2022 Office Visit Neurological Surgery Charles Ivey M.D., Ph.D. [address] [place] [phone] 05/03/2022 Comprehensive Visit Clinical Genomics Sanya Mehta M.D. [address] [place] [address] [phone] 05/06/2022 Clinical Communication Admitting/Central Scheduling 05/09/2022 Office Visit Oncology Farzana Allen M.D. [address] [place] [phone] Scheduled Orders Name Type Priority Associated Diagnoses Order S chedule Management Visit Radiation Oncology Routine Malignant Neoplasm Once for 1 Of Brain (HCC) Occurrences s tarting 02/12/2022 unti l 02/12/2022 documented as of this encounter Visit Diagnoses Diagnosis Malignant Neoplasm Of Brain (HCC) documented in this encounter
--- OUTSIDE RECORDS SUMMARY | 2022-03-12 14:31 | XMS_ITS | Encounter Summary ---
:1970 Author Organization [facility] Address [address] [place] [address] Care Team Providers Name Role Phone Unavailable Primary Care Provider Unavailable Reason for Visit Radiation Therapy (Routine) - Authorized Specialty Diagnoses / Procedures Referred By Contact Refer red To Contact Diagnoses Malignant Neoplasm Of Brain (HCC) Stephanie Gleason M.D. [facility] Radiation Oncology Procedures Prior Auth Rad Tx IN IMRT [facility] [address] [place] [phone] [address] [place] [address] Referral ID Status Reason Start Date Expiration Date Visits V isits Requested Authorized [id number] Authorized 01/31/2022 12/31/2022 30 30 Encounter Details Date Type Department Care Team Description 02/11/2022 Hospital Encounter Department of Radiation Jacquelyn Gleason I., [place] [address] [facility] [address] [place] [phone] Social History Tobacco Use Types Packs/Day Years [...] or relatives? How often do you attend yazidism or More than 4 times per year 01/07/2022 moravian services? Do you belong to any clubs or No 01/07/2022 organizations such as yazidism groups, unions, fraternal or athletic groups, or [...] place to sleep or slept in a fci (including now)? 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 Sex Assigned at Date Recorded Female 01/07/2022 11:11 AM CDT documented as of this encounter Plan of Treatment Upcoming Encounters Date Type Specialty Care Team Description 03/12/2022 Appointment Radiation Oncology Stephanie Gleason M.D. 200 [place] [phone] 03/12/2022 Appointment Radiation Oncology Stephanie Gleason M.D. [address] [place] [phone] 03/13/2022 Appointment Radiation Oncology Stephanie Gleason M.D. [address] [place] [phone] 03/14/2022 Appointment Radiation Oncology Stephanie Gleason M.D. [address] [place] [phone] 03/25/2022 Ancillary Procedure Ophthalmology Chas Shin M.D. [address] [place] [phone] 03/25/2022 Ancillary Procedure Ophthalmology 03/25/2022 Ancillary Procedure Ophthalmology Chas Shin M.D. [address] [place] [phone] 03/26/2022 Ancillary Procedure Ophthalmology Rebeca Valle P.A.-Rusty., M.S. [address] [place] [phone] 03/26/2022 Comprehensive Visit Ophthalmology Chas Shin M.D. [address] [place] [address] [phone] 03/29/2022 Comprehensive Visit Endocrinology Farzana Allen M.D. [address] [place] [phone] 04/04/2022 Appointment Radiology Christina Tai P.A.-Rusty., M.S. [address] [place] [phone] 04/04/2022 Office Visit Oncology Vini Maki M.D., Ph.D. [address] [place] [phone] 04/04/2022 Office Visit Neurological Surgery Charles Ivey M.D., Ph.D. [address] [place] [phone] 05/03/2022 Comprehensive Visit Clinical Genomics Sanya Mehta M.D. [address] [place] [phone] 05/06/2022 Clinical Communication Admitting/Central Scheduling 05/09/2022 Office Visit Oncology Farzana Allen M.D. [address] [place] [phone] documented as of this encounter Visit Diagnoses Not on filedocumented in this encounter
--- OUTSIDE RECORDS SUMMARY | 2022-03-12 14:31 | XMS_ITS | Encounter Summary ---
:1970 Author Organization [facility] Address [address] [place] [address] Care Team Providers Name Role Phone Unavailable Primary Care Provider Unavailable Encounter Details Date Type Department Care Team Description 02/12/2022 Clinical Communication Department of Oncology Farzana Allen, in [place] [address] [address] [facility] [address] [place] [phone] Social History Tobacco Use Types Packs/Day Years [...] or relatives? How often do you attend mandaeism or More than 4 times per year 01/07/2022 sabianism services? 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 Sex Assigned at Date Recorded Female 01/07/2022 11:11 AM CDT documented as of this encounter Plan of Treatment Upcoming Encounters Date Type Specialty Care Team Description 03/12/2022 Appointment Radiation Oncology Stephanie Gleason M.D. [address] [place] [address] [phone] 03/12/2022 Appointment Radiation Oncology Stephanie Gleason M.D. [address] [place] [address] [phone] 03/13/2022 Appointment Radiation Oncology Stephanie Gleason M.D. [address] [place] [address] [phone] 03/14/2022 Appointment Radiation Oncology Stephanie Gleason M.D. [address] [place] [address] [phone] 03/25/2022 Ancillary Procedure Ophthalmology Chas Shin M.D. [address] [place] [address] [phone] 03/25/2022 Ancillary Procedure Ophthalmology 03/25/2022 Ancillary Procedure Ophthalmology Chas Shin M.D. [address] [place] [phone] 03/26/2022 Ancillary Procedure Ophthalmology Rebeca Valle P.A.-C., M.S. [address] [place] [address] [phone] 03/26/2022 Comprehensive Visit Ophthalmology Chas Shin M.D. [address] [place] [phone] 03/29/2022 Comprehensive Visit Endocrinology Farzana Allen M.D. [address] [place] [phone] 04/04/2022 Appointment Radiology Christina Tai P.A.-C., M.S. [address] [place] [phone] 04/04/2022 Office Visit Oncology Vini Maki M.D., Ph.D. [address] [place] [phone] 04/04/2022 Office Visit Neurological Surgery Charles Ivey M.D., Ph.D. [address] [place] [phone] 05/03/2022 Comprehensive Visit Clinical Genomics Sanya Mehta M.D. [address] [place] [phone] 05/06/2022 Clinical Communication Admitting/Central Scheduling 05/09/2022 Office Visit Oncology Farzana Allen M.D. [address] [place] [phone] documented as of this encounter Visit Diagnoses Not on filedocumented in this encounter
--- OUTSIDE RECORDS SUMMARY | 2022-03-12 14:31 | XMS_ITS | Encounter Summary ---
:1970 Author Organization [facility] Address [address] [place] [address] Care Team Providers Name Role Phone Unavailable Primary Care Provider Unavailable Reason for Referral Outpatient (Routine) - Closed Specialty Diagnoses / Procedures Referred By Contact Refer red To Contact Social Work Karthikeyan Cedeno M.D. [facility] [address] [place] [address] [phone] Referral ID Status Reason Start Date Expiration Date Visits Requ ested Visits Authorized [id number] Closed 02/13/2022 02/13/2023 1 1 Reason for Visit Outpatient (Routine) - Closed Specialty Diagnoses / Procedures Referred By Contact Refer red To Contact Social Work Diagnoses [facility]HCC) [facility] [address] [place] [phone] Referral ID Status Reason Start Date Expiration Date Visits Requ ested Visits Authorized [id number] Closed 01/30/2022 01/30/2023 1 1 Encounter Details Date Type Department Care Team Description 02/12/2022 Telemedicine Department of Oncology Sa miquel Valle P.A.-C., M.S. [address] [place] [address] [phone] Tumor Brain (HCC) in [facility] Hamida Ram L.G.S.W., M.S.W. [address] [place] [address] Social History Tobacco Use Types Packs/Day Years [...] or relatives? How often do you attend alevism or More than 4 times per year 01/07/2022 yarsani services? Do you belong to any clubs or No 01/07/2022 organizations such as alevism groups, unions, fraternal or athletic groups, or [...] place to sleep or slept in a snf (including now)? 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 Sex Assigned at Date Recorded Female 01/07/2022 11:11 AM CDT documented as of this encounter Progress Notes Hamida Ram, Jono.Nagi.S.W., M.S.W. - 02/12/2022 1:00 PM CDT SUBJECTIVE Chief Complaint: offer supportive counseling & assist in navigation of resources as appropriate. Diagnosis: #1 Tumor Brain (HCC) Service type(s): Individual and Family Previous Psychosocial Assessment: JORGE Balderas on 01/18/2022. Present for the visit: spoke with Ms. Ginny Souza via telehealth. Ms. Villareal was diagnosed with a tumor brain. She is unable to recall that she has applied for workbenefits such as FMLA & short term disability. However it was mentioned in a previous psychosocial assessment completed by JORGE Green on 01/18/2022. Suggested that Ms. Cedillo & her osei Souza call her employer to see what work benefits she has applied for & what work benefits she maybe eligible for. Osei Souza is feeling overwhelmed. Libby asked if typewriter mechanic could write a check list of things to do. [employer] will write a check list & include it in a portal message & will send a paper copyin the mail as well. Ms. Villareal has started the process to apply for social security disability but is unsure of where things are at. Suggested that Ms. Villareal & her osei Souza call Social Security to discuss. The plan on giving Social Security a call later today. Ms. Villareal inquired about health insurance options. Suggested that she first speak with her employer about her health insurance options through her employer. [employer] will also send a portal message with a copy of the application to apply for medical assistance & will send a paper copy of theapplication in the mail as well. They were appreciative of Social Work supportive counseling telehealth visit today. Supportive counseling provided regarding the experience of [...] & experiences around cancer diagnosis & treatments. Education provided about Social Work role & availability within Medical Oncology Care Team. Offered to provide continued on-going supportive counseling throughout cancer care journey here at [facility]. Ms. Cedillo & osei Souza were accepting of offer. Provided my contact information. Encouraged them to reach out if questions, concerns or desire for supportive counseling arise prior toour next scheduled appointment. OBJECTIVE Education provided about Social Work role & availability within Medical Oncology Care Team. Mental Status Exam Orientation: Oriented to person, place and time Level of consciousness: Awake and alert Appearance: Relaxed, Well-groomed and Younger than age appearing Behavior observed: Calm and Interactive Memory, recent and remote: Impaired based on being unable to recall that she had applied for work benefits such as FMLA & short-term disability. Attention/Concentration: Impaired based on being unable to recall that she had applied for work benefits such as FMLA & short-term disability. Cooperation: Cooperative Mood: Calm Affect: Congruent to mood Speech: Within normal limits for volume, rate and tone & difficulty finding words Thought process: Logical, linear, and goal-directed Thought content, auditory/visual hallucinations and/or delusions: No abnormality noted Judgment: Impaired Insight: Impaired Motivation for treatment: Excellent ASSESSMENT Ms. Cedillo is a 51 year old, female, whom resides in [place], [place]. Her mom- Libby has been staying with her & providing assistance with ADLs. She was diagnosed with a tumor brain. She is motivated to engage within cancer-directed treatment. She cognitively impaired & unable to recall tasks that she completed such as applying for FMLA & short-term disability. She has a good support system; especially her mother- Libby. She was appreciative of Social Work supportive counseling telehealth visit today. She is open & accepting of such consultation during cancer care here at [facility]. Interventions Provided: ~Supportive Counseling Regarding the experience of Living with a life threatening illness ~Reflective Listening Treatment goals which were established on 01/2022 1. Ms. Cedillo & her mother- Libby will call her employer to discuss work benefits that she is eligible for & could be eligible for. 2. Ms. Villareal & her mother will call social security to discuss the status of her social security application. PLAN 1. I provided my contact information. 2. Ms. Cedillo &/or osei Souza will reach out if questions, concerns or desire for supportive counseling arises prior to our next scheduled appointment. 3. Social Work will initiate order for follow-up visit. 4. Social Work will send a portal message with a list of financial resources & a check list of things to check into. 5. Ms. Cedillo & her mother- Libby will call her employer to discuss work benefits that she is eligible for & could be eligible for. 6. Ms. Villareal & her mother will call social security to discuss the status of her social security application. Consult conducted remotely via real-time audio technology by Evon Coreas M.SMio to thepatient in patient's home. This telephone was performed during the COVID-19 emergency. Telehealth is an innovative solution fordelivering high-quality effective and appropriate behavioral health care to sustain and strengthen patient's mental and physical health. Type of service: Supportive counseling and Resource referrals and connection Start time: 1:00pm End time: 2:00pm Barriers present: cognitive The following educational material were provided: none documented in this encounter Plan of Treatment Upcoming Encounters Date Type Specialty Care Team Description 03/12/2022 Appointment Radiation Oncology Stephanie Gleason M.D. [address] [place] [phone] 03/12/2022 Appointment Radiation Oncology Stephanie Gleason M.D. [address] [place] [address] [phone] 03/13/2022 Appointment Radiation Oncology Stephanie Gleason M.D. [address] [place] [phone] 03/14/2022 Appointment Radiation Oncology Stephanie Gleason M.D. [address] [place] [address] [phone] 03/25/2022 Ancillary Procedure Ophthalmology Chas Shin M.D. [address] [place] [address] [phone] 03/25/2022 Ancillary Procedure Ophthalmology 03/25/2022 Ancillary Procedure Ophthalmology Chas Shin M.D. [address] [place] [phone] 03/26/2022 Ancillary Procedure Ophthalmology Rebeca Valle P.A.-C., M.S. [address] [place] [address] [phone] 03/26/2022 Comprehensive Visit Ophthalmology Chas Shin M.D. [address] [place] [phone] 03/29/2022 Comprehensive Visit Endocrinology Farzana Allen M.D. [address] [place] [phone] 04/04/2022 Appointment Radiology Christina Tai P.A.Leticia., M.S. [address] [place] [address] [phone] 04/04/2022 Office Visit Oncology Vini Maki M.D., Ph.D. [address] [place] [phone] 04/04/2022 Office Visit Neurological Surgery Charles Ivey M.D., Ph.D. [address] [place] [phone] 05/03/2022 Comprehensive Visit Clinical Genomics Sanya Mehta M.D. [address] [place] [address] [phone] 05/06/2022 Clinical Communication Admitting/Central Scheduling 05/09/2022 Office Visit Oncology Farzana Allen M.D. 200 [place] [phone] Scheduled Referrals Name Type Priority Associated Diagnoses Order S [facility] Work Outpatient Referral Routine Expected : office visit 02/19/2022, (clinic) Expires: 05/16/2023 documented as of this encounter Visit Diagnoses Diagnosis Tumor Brain (HCC) documented in this encounter
--- OUTSIDE RECORDS SUMMARY | 2022-03-12 14:31 | XMS_ITS | Encounter Summary ---
:1970 Author Organization [facility] Address [address] [place] [address] Care Team Providers Name Role Phone Unavailable Primary Care Provider Unavailable Reason for Visit Radiation Therapy (Routine) - Authorized Specialty Diagnoses / Procedures Referred By Contact Refer red To Contact Diagnoses Malignant Neoplasm Of Brain (HCC) Stephanie Gleason M.D. [facility] Radiation Oncology Procedures Prior Auth Rad Tx ND IMRT COMPLEX [address] [place] [phone] [address] [facility] [place] [address] Referral ID Status Reason Start Date Expiration Date Visits V isits Requested Authorized [id number] Authorized 01/31/2022 12/31/2022 30 30 Encounter Details Date Type Department Care Team Description 02/12/2022 Hospital Encounter Department of Radiation Jacquelyn [facility]ason I., [facility] [address] [facility] [address] [place] [phone] Social History Tobacco Use Types Packs/Day Years [...] More than 4 times per year 01/07/2022 baptism services? Do you belong to any clubs [...] have completed or the highest Maulik, MEd, SUPERINTENDENT FACTORY, 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 Sex Assigned at Date Recorded Female 01/07/2022 11:11 AM CDT documented as of this encounter Plan of Treatment Upcoming Encounters Date Type Specialty Care Team Description 03/12/2022 Appointment Radiation Oncology Stephanie Gleason M.D. 200 [place] [phone] 03/12/2022 Appointment Radiation Oncology Stephanie Gleason M.D. [address] [place] [address] [phone] 03/13/2022 Appointment Radiation Oncology Stephanie Gleason M.D. [address] [place] [phone] 03/14/2022 Appointment Radiation Oncology Stephanie Gleason M.D. [address] [place] [phone] 03/25/2022 Ancillary Procedure Ophthalmology Chas Shin M.D. [address] [place] [phone] 03/25/2022 Ancillary Procedure Ophthalmology 03/25/2022 Ancillary Procedure Ophthalmology Chas Shin M.D. [address] [place] [phone] 03/26/2022 Ancillary Procedure Ophthalmology Rebeca Valle P.A.-Rusty., M.S. [address] [place] [phone] 03/26/2022 Comprehensive Visit Ophthalmology Chas Shin M.D. [address] [place] [address] [phone] 03/29/2022 Comprehensive Visit Endocrinology Farzana Allen M.D. [address] [place] [phone] 04/04/2022 Appointment Radiology Christina Tai P.A.-Rusty., M.S. [address] [place] [phone] 04/04/2022 Office Visit Oncology Vini Maki M.D., Ph.D. [address] [place] [phone] 04/04/2022 Office Visit Neurological Surgery Charles Ivey M.D., Ph.D. [address] [place] [phone] 05/03/2022 Comprehensive Visit Clinical Genomics Sanya Mehta M.D. [address] [place] [phone] 05/06/2022 Clinical Communication Admitting/Central Scheduling 05/09/2022 Office Visit Oncology Farzana Allen M.D. [address] [place] [phone] documented as of this encounter Visit Diagnoses Not on filedocumented in this encounter
--- OUTSIDE RECORDS SUMMARY | 2022-03-12 14:32 | XMS_ITS | Encounter Summary ---
:1970 Author Organization [facility] Address [address] [place] [address] Care Team Providers Name Role Phone Unavailable Primary Care Provider Unavailable Reason for Referral Specialty Diagnoses / Procedures Referred By Contact Refer red To Contact Stacy Easley P.A.-C ., M.S. [facility] [address] [place] [phone] Referral ID Status Reason Start Date Expiration Date Visits Requ ested Visits Authorized Encounter Details Date Type Department Care Team Description 02/07/2022 Hospital Encounter Department of Luis Armando Gleason M.D. [address] [place] [phone] Malignant Neoplasm Radiation Oncology Eileen Hopkins, RAquilino [address] [place] [phone] Of Brain (HCC) in [place], [place] [address] [place] [phone] Social History Tobacco Use Types Packs/Day Years [...] More than 4 times per year 01/07/2022 samaritan services? Do you belong to any clubs or No 01/07/2022 organizations such as jew groups, unions, fraKarma or athletic groups, or school groups? How [...] have completed or the highest Maulik, MEd, COPYWRITER, 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 Sex Assigned at Date Recorded Female 01/07/2022 11:11 AM CDT documented as of this encounter Last Filed Vital Signs Vital Sign Reading Time Taken Comments Blood Pressure - - Pulse - - Temperature 36.2 ??C (97.1 ??F) 02/07/2022 10:06 AM CDT Respiratory Rate - - Oxygen Saturation - - Inhaled Oxygen Concentration - - Weight 94.7 kg (208 lb 12.4 oz) 02/07/2022 10:06 AM CDT Height - - Body Mass Index 33.16 01/24/2022 9:36 AM CDT documented in this [...] 1 tablet (8 mg 42 tablet 0 06/02/202203/12/2022 mg tabletIndications: total) by mouth Malignant Neoplasm [...] 1 tablet (8 mg 30 tablet 3 0602/202203/01/2022 mg tabletIndications: total) by mouth Malignant Neoplasm [...] documented as of this encounter Progress Notes Eileen Hopkins R.N. - 02/07/2022 9:00 AM CDT SUBJECTIVE REASON FOR VISIT Evaluation for side effects while receiving radiation treatment for Nurse education visit. HISTORY OF PRESENT ILLNESS Mia Richardson is a 51 y.o. 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 She is now undergoing radiotherapy. Treatment Course: 1xBrain Plan ID Fractions Dose / Fraction (cGy) Dose Treated (cGy) Dose Planned (cGy) First Treatment Last Treatment Elapsed Days [id number] 200 [id number] 6000 01/31/2022 02/07/2022 7 Course Summary 01/31/2022 02/07/2022 7 The patient requesting prescription for wig. OBJECTIVE Temp 36.2 ??C Wt 94.7 kg BMI 33.16 kg/m?? PHYSICAL EXAM General: Alert and oriented in no apparent distress. ASSESSMENT / PLAN The patient is tolerating radiation treatment well overall. I provided patient with printed prescription for wig today. I have also reviewed wig resource information with patient today. Nurse education visit was completed today. She will contact us with any questions or concerns. We will continuewith radiation treatment as planned. Signed by: Eileen Hopkins R.N. 02/07/2022 10:06 AM CDT documented in this encounter Plan of Treatment Upcoming Encounters Date Type Specialty Care Team Description 03/12/2022 Appointment Radiation Oncology Stephanie Gleason M.D. [address] [place] [phone] 03/12/2022 Appointment Radiation Oncology Stephanie Gleason M.D. [address] [place] [phone] 03/13/2022 Appointment Radiation Oncology Stephanie Gleason M.D. [address] [place] [phone] 03/14/2022 Appointment Radiation Oncology Stephanie Gleason M.D. [address] [place] [phone] 03/25/2022 Ancillary Procedure Ophthalmology Chas Shin M.D. [address] [place] [phone] 03/25/2022 Ancillary Procedure Ophthalmology 03/25/2022 Ancillary Procedure Ophthalmology Chas Shin M.D. [address] [place] [address] [phone] 03/26/2022 Ancillary Procedure Ophthalmology Rebeca Valle P.A.-C., M.S. [address] [place] [phone] 03/26/2022 Comprehensive Visit Ophthalmology Chas Shin M.D. [address] [place] [phone] 03/29/2022 Comprehensive Visit Endocrinology Farzana Allen M.D. [address] [place] [phone] 04/04/2022 Appointment Radiology Christina Tai P.A.-C., M.S. [address] [place] [phone] 04/04/2022 Office Visit Oncology Vini Maki M.D., Ph.D. [address] [place] [phone] 04/04/2022 Office Visit Neurological Surgery Charles Ivey M.D., Ph.D. [address] [place] [phone] 05/03/2022 Comprehensive Visit Clinical Genomics Sanya Mehta M.D. [address] [place] [address] [phone] 05/06/2022 Clinical Communication Admitting/Central Scheduling 05/09/2022 Office Visit Oncology Farzana Allen M.D. [address] [place] [address] [phone] Scheduled Referrals Name Type Priority Associated Order Schedule Diagnoses Radiation Oncology Outpatient Referral Routine Malignant Neopl asm Once for 1 - Nurse education Of Brain (HCC) Occurren candice starting visit (clinic) 02/07/2022 un til 02/07/2022 documented as of this encounter Visit Diagnoses Diagnosis Malignant Neoplasm Of Brain (HCC) documented in this encounter
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
--- OUTSIDE RECORDS SUMMARY | 2022-03-12 14:32 | XMS_ITS | Encounter Summary ---
:1970 Author Organization [facility] Address [address] [place] [address] Care Team Providers Name Role Phone Unavailable Primary Care Provider Unavailable Reason for Visit Reason Comments Appointment Pre-visit Testing Orders Encounter Details Date Type Department Care Team Description 01/31/2022 Clinical Department of Kip Appointment; Communication Ophthalmology in Chas Ferro M.D. Pre-visit Testing Ashkan Mcneil a [address] [facility] Orders [address] [place], [place] [address] [phone] Social History Tobacco Use Types Packs/Day Years [...] or relatives? How often do you attend holiness or More than 4 times per year 01/07/2022 taoism services? Do you belong to any clubs or No 01/07/2022 organizations such as holiness groups, unions, fraternal or athletic groups, or [...] have completed or the highest Maulik, MEd, HOME COMPANION, 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 Sex Assigned at Date Recorded Female 01/07/2022 11:11 AM CDT documented as of this encounter Miscellaneous Notes Telephone Encounter - Hattie Butler, C.O.A. - 01/31/2022 8:29 AM CDT Orders placed for [facility] and [facility]. Thank you, Karyn Telephone Encounter - Zeenat Means - 01/31/2022 8:06 AM CDT Neuro consult for Malignant neoplasm of brain; blurred vision Specify: brain tumor Clinical question: vision changes - difficulty focusing primarily in the morning and close up. Please place orders for any testing that should be coordinated with the consult, and reply to confirm. Thank you, Zeenat documented in this encounter Plan of Treatment Upcoming Encounters Date Type Specialty Care Team Description 03/12/2022 Appointment Radiation Oncology Stephanie Gleason M.D. [address] [place] [phone] 03/12/2022 Appointment Radiation Oncology Stephanie Gleason M.D. [address] [place] [phone] 03/13/2022 Appointment Radiation Oncology Stephanie Gleason M.D. [address] [place] [phone] 03/14/2022 Appointment Radiation Oncology Stephanie Gleason M.D. [address] [place] [phone] 03/25/2022 Ancillary Procedure Ophthalmology Chas Shin M.D. [address] [place] [phone] 03/25/2022 Ancillary Procedure Ophthalmology 03/25/2022 Ancillary Procedure Ophthalmology Chas Shin M.D. [address] [place] [phone] 03/26/2022 Ancillary Procedure Ophthalmology Rebeca Valle, AntonioA.-C., M.S. [address] [place] [phone] 03/26/2022 Comprehensive Visit Ophthalmology Chas Shin M.D. [address] [place] [phone] 03/29/2022 Comprehensive Visit Endocrinology Farzana Allen M.D. [address] [place] [phone] 04/04/2022 Appointment Radiology Christina Tai P.A.-C., M.S. [address] [place] [phone] 04/04/2022 Office Visit Oncology Vini Maki M.D., Ph.D. [address] [place] [phone] 04/04/2022 Office Visit Neurological Surgery Charles Ivey M.D., Ph.D. [address] [place] [phone] 05/03/2022 Comprehensive Visit Clinical Genomics Sanya Mehta M.D. [address] [place] [phone] 05/06/2022 Clinical Communication Admitting/Central Scheduling 05/09/2022 Office Visit Oncology Farzana Allen M.D. [address] [place] [phone] Scheduled Orders Name Type Priority Associated Diagnoses Order S chedule Automated VF - Ophthalmology Routine Malignant Neoplasm Of Exp ected: Extended - OU - Both Brain (HCC) 022 Eyes (Approximate), Expires: 2021 Optical Coherence Ophthalmology Routine Malignant Neoplasm Of Expected: Tomography - Optic Brain (HCC) 2 Nerve - OU - Both Eyes (Appr oximate), Expires: 2021 documented as of this encounter Visit Diagnoses Diagnosis Malignant Neoplasm Of Brain (HCC) - Prim uyen documented in this encounter
--- OUTSIDE RECORDS SUMMARY | 2022-03-12 14:32 | XMS_ITS | Encounter Summary ---
:1970 Author Organization [facility] Address [address] [place] [address] Care Team Providers Name Role Phone Unavailable Primary Care Provider Unavailable Reason for Visit Radiation Therapy (Routine) - Authorized Specialty Diagnoses / Procedures Referred By Contact Refer red To Contact Diagnoses Malignant Neoplasm Of Brain (HCC) Stephanie Gleason M.D. [facility] Radiation Oncology Procedures Prior Auth Rad Tx ND IMRT COMPLEX [address] [place] [phone] [address] [facility] [place] [address] Referral ID Status Reason Start Date Expiration Date Visits V isits Requested Authorized [id number] Authorized 01/31/2022 12/31/2022 30 30 Encounter Details Date Type Department Care Team Description 02/06/2022 Hospital Encounter Department of Radiation Jacquelyn Gleason I., Oncology in [place] [address] [facility] [address] [place] [phone] Social History Tobacco Use Types Packs/Day Years [...] More than 4 times per year 01/07/2022 orthodox services? Do you belong to any clubs [...] have completed or the highest Maulik, MEd, FLIGHT CREW SCHEDULER, 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 Sex Assigned at Date Recorded Female 01/07/2022 11:11 AM CDT documented as of this encounter Medications at Time of Discharge [...] 1 tablet (8 mg 42 tablet 0 06/0 02/202203/12/2022 mg tabletIndications: total) by mouth Malignant [...] Take 1 capsule (140 42 capsule 0 /0 04/202202/28/2022 140 mg mg total) by mouth [...] TURMERIC ORAL Take 1 capsule by 0 07/0 02/2022 mouth daily. documented as of this encounter Plan of Treatment Upcoming Encounters Date Type Specialty Care Team Description 03/12/2022 Appointment Radiation Oncology Stephanie Gleason M.D. [address] [place] [phone] 03/12/2022 Appointment Radiation Oncology Stephanie Gleason M.D. [address] [place] [phone] 03/13/2022 Appointment Radiation Oncology Stephanie Gleason M.D. [address] [place] [phone] 03/14/2022 Appointment Radiation Oncology Stephanie Gleason M.D. [address] [place] [phone] 03/25/2022 Ancillary Procedure Ophthalmology Chas Shin M.D. [address] [place] [phone] 03/25/2022 Ancillary Procedure Ophthalmology 03/25/2022 Ancillary Procedure Ophthalmology Chas Shin M.D. [address] [place] [address] [phone] 03/26/2022 Ancillary Procedure Ophthalmology Rebeca Valle P.A.-C., M.S. [address] [place] [address] [phone] 03/26/2022 Comprehensive Visit Ophthalmology Chas Shin M.D. [address] [place] [address] [phone] 03/29/2022 Comprehensive Visit Endocrinology Farzana Allen M.D. [address] [place] [phone] 04/04/2022 Appointment Radiology Christina Tai P.A.-C., M.S. [address] [place] [phone] 04/04/2022 Office Visit Oncology Vini Maki M.D., Ph.D. [address] [place] [phone] 04/04/2022 Office Visit Neurological Surgery Charles Ivey M.D., Ph.D. [address] [place] [address] [phone] 05/03/2022 Comprehensive Visit Clinical Genomics Sanya Mehta M.D. [address] [place] [address] [phone] 05/06/2022 Clinical Communication Admitting/Central Scheduling 05/09/2022 Office Visit Oncology Farzana Allen M.D. [address] [place] [phone] documented as of this encounter Visit Diagnoses Not on filedocumented in this encounter
--- OUTSIDE RECORDS SUMMARY | 2022-03-12 14:32 | XMS_ITS | Encounter Summary ---
:1970 Author Organization [facility] Address [address] [place] [address] Care Team Providers Name Role Phone Unavailable Primary Care Provider Unavailable Encounter Details Date Type Department Care Team Description 02/01/2022 Hospital Encounter Department of Sanya Mehta Neoplasm Of Brain (HCC); Laboratory Medicine Sebastian Lozada Family History Carrier Genetic Disease and Pathology, [address] [place] [address] in [place], [place] [phone] [place] [address] [place], [place] (Work) [phone] Social History Tobacco Use Types Packs/Day Years [...] More than 4 times per year 01/07/2022 nondenominational services? Do you belong to any clubs [...] place to sleep or slept in a intermediate (including now)? Education Answer Date Recorded What is the highest level of school Master's degree (e.g., M Domigno, MS, 01/07/2022 you have completed or the highest Maulik, MEd, BENDING PRESS OPERATOR, 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 Sex [...] or fever. levETIRAcetam (KEPPRA) Take 1 tablet (1,000 28 [...] by 0 mouth daily. gabapentin (NEURONTIN) Take 1 capsule (300 14 capsule 0 06/0 09/202102/06/2022 300 mg capsule mg total) by mouth at bedtime. ondansetron (ZOFRAN) 8 Take 1 tablet (8 mg 30 tablet 3 06/0 02/202203/01/2022 mg tabletIndications: total) by mouth Malignant [...] mouth daily. documented as of this encounter Miscellaneous Notes Result Encounter Note - Sejal Resendiz M.S., [facility] [place]/08/2022 2:43 PM CDT Addendum created 03/01 to include results of [...] Multi-Cancer + Nervous system/brain cancer panel from [facility]. IMPRESSION/REPORT/PLAN RESULTS I spoke with Ms. Cedillo today regarding her genetic test results. 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 This variant had been previously identified in [...] recommendations, such as those made by the [place] [employer], do remain appropriate. These screening recommendations may change if there are changes to the patient's personal and/or family history. Medical management guidelines for CHEK2 will likely jacquard loom card changer time. We recommend that patients contact our [...] recommendations, such as those made by the [place] [employer], do remain appropriate. RISKS TO RELATIVES [...] area, family members can visit the website [email or web address]. We will also provide a family letter in this regard. RESOURCES The organization [employer] (Facing Our Risk for Cancer Empowered) has the mission of improving the livesof individuals and families affected by hereditary cancer. The website for this organization is: [email or web address]. PLAN Ms. Cedillo will be referred to [...] and understanding. The patient's questions were answered. documented in this encounter Plan of Treatment Upcoming Encounters Date Type Specialty Care Team Description 03/12/2022 Appointment Radiation Oncology Stephanie Gleason M.D. [address] [place] [phone] 03/12/2022 Appointment Radiation Oncology Stephanie Gleason M.D. [address] [place] [address] [phone] 03/13/2022 Appointment Radiation Oncology Stephanie Gleason M.D. [address] [place] [address] [phone] 03/14/2022 Appointment Radiation Oncology Stephanie Gleason M.D. [address] [place] [address] [phone] 03/25/2022 Ancillary Procedure Ophthalmology Chas Shin M.D. [address] [place] [phone] 03/25/2022 Ancillary Procedure Ophthalmology 03/25/2022 Ancillary Procedure Ophthalmology Chas Shin M.D. [address] [place] [phone] 03/26/2022 Ancillary Procedure Ophthalmology Rebeca Valle P.A.-C., M.S. [address] [place] [phone] 03/26/2022 Comprehensive Visit Ophthalmology Chas Shin M.D. [address] [place] [phone] 03/29/2022 Comprehensive Visit Endocrinology Farzana Allen M.D. [address] [place] [phone] 04/04/2022 Appointment Radiology Christina Tai P.A.Leticia., M.S. [address] [place] [phone] 04/04/2022 Office Visit Oncology Vini Maki M.D., Ph.D. [address] [place] [address] [phone] 04/04/2022 Office Visit Neurological Surgery Charles Ivey M.D., Ph.D. [address] [place] [address] [phone] 05/03/2022 Comprehensive Visit Clinical Genomics Sanya Mehta M.D. [address] [place] [address] [phone] 05/06/2022 Clinical Communication Admitting/Central Scheduling 05/09/2022 Office Visit Oncology Farzana Allen M.D. [address] [place] [phone] Pending Results Name Type Priority Associated Diagnoses Date/Ti me [id number] [facility] Lab Routine Malignant Neoplasm Of 02/05/2022 12:00 AM Single Gene Testing - Brain (HCC ) CDT Miscellaneous Test Family History Carrier Genetic Disease documented as of this encounter Procedures Procedure Name Priority Date/Time Associated Comments Diagnosis [facility] [facility] Routine 02/05/2022 12:00 Results fo r 1,2,3 [employer] AM CDT procedure are i n the results section. [facility] MML REFERRAL TEST Routine 02/05/2022 12:00 R esults for this 1 AM CDT procedure are i n the results section. MISCELLANEOUS SENT OUT Routine 02/05/2022 12:00 Malignant Neop lasm LAB TEST AM CDT Of Brain (HCC) Family History Carrier Genetic Disease documented in this encounter Results [facility] MML Referral Test 1 (02/05/2022 12:00 AM CDT) P athologist Signature Test Name [employer] 02/28/2022 [facility] Custom Panel 12:20 PM CDT Result SEE COMMENT 02/28/2022 [facility] 1:57 PM CDT Comment: For final report, select Lab-Send Out L ab Results hyperlink below. Test Performed By: [facility] [address] [place] [address], [place] [address] Specimen (Source) Anatomical Collection Method Collection Time Re ceived Time Location / / Volume Laterality Varies 02/05/2022 02/28/2022 12:2 0 PM CDT Narrative This result has an attachment that is no t available. Sanya Mehta M.D. LAB [facility] ORDERABLES Performing Organization Address City/State/ZIP Code Phon e Number [facility] REFERRAL LAB [facility]. [facility] (02/05/2022 12:00 AM CDT) P athologist Signature Test Name [facility] 02/26/2022 [facility] single gene 1:54 PM CDT testing Result SEE COMMENT 02/26/2022 [facility] 2:55 PM CDT Comment: For final report, select Lab-Send Out L ab Results hyperlink below. Specimen (Source) Anatomical Collection Method Collection Time Re ceived Time Location / / Volume Laterality Varies 02/05/2022 02/26/2022 1:5 4 PM CDT Narrative This result has an attachment that is no t available. Sanya Mehta M.D. LAB MISC ORDERABLES Performing Organization Address City/State/[facility] Code Phon e Number [facility] [address] [place] [phone] [employer] [facility] [address] [phone] documented in this encounter Visit Diagnoses Diagnosis Malignant Neoplasm Of Brain (HCC) Family History Carrier Genetic Disease documented in this encounter
--- OUTSIDE RECORDS SUMMARY | 2022-03-12 14:32 | XMS_ITS | Encounter Summary ---
:1970 Author Organization [facility] Address [address] [place] [address] Care Team Providers Name Role Phone Unavailable Primary Care Provider Unavailable Reason for Visit Radiation Therapy (Routine) - Authorized Specialty Diagnoses / Procedures Referred By Contact Refer red To Contact Diagnoses Malignant Neoplasm Of Brain (HCC) Stephanie Gleason M.D. [facility] Radiation Oncology Procedures Prior Auth Rad Tx [place] IMRT COMPLEX [address] [place] [phone] [place] [address] Referral ID Status Reason Start Date Expiration Date Visits V isits Requested Authorized [id number] Authorized 01/31/2022 12/31/2022 30 30 Encounter Details Date Type Department Care Team Description 02/01/2022 Hospital Encounter Department of Radiation Jacquelyn Gleason I., [place]cology [place] [address] [facility] [address] [place] [phone] Social History Tobacco Use Types Packs/Day Years [...] More than 4 times per year 01/07/2022 sabianist services? Do you belong to any clubs [...] have completed or the highest Maulik, MEd, FIXER BOARDING ROOM, 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 Sex Assigned [...] Take 1 capsule (300 14 capsule 0 09/202102/06/2022 300 mg capsule mg total) by [...] Appointment Radiation Oncology Stephanie Gleason M.D. [address] [place] [phone] 03/12/2022 Appointment Radiation Oncology Stephanie Gleason M.D. [address] [place] [phone] 03/13/2022 Appointment Radiation Oncology Stephanie Gleason M.D. [address] [place] [phone] 03/14/2022 Appointment Radiation Oncology Stephanie Gleason M.D. [address] [place] [phone] 03/25/2022 Ancillary Procedure Ophthalmology Chas Shin M.D. [address] [place] [phone] 03/25/2022 Ancillary Procedure Ophthalmology 03/25/2022 Ancillary Procedure Ophthalmology Chas Shin M.D. [address] [place] [phone] 03/26/2022 Ancillary Procedure Ophthalmology Rebeca Valle, Dilia-C., M.S. [address] [place] [phone] 03/26/2022 Comprehensive Visit Ophthalmology Chas Shin M.D. [address] [place] [phone] 03/29/2022 Comprehensive Visit Endocrinology Farzana Allen M.D. [address] [place] [address] [phone] 04/04/2022 Appointment Radiology Christina Tai P.A.-C., M.S. [address] [place] [address] [phone] 04/04/2022 Office Visit Oncology Vini Maki M.D., Ph.D. [address] [place] [address] [phone] 04/04/2022 Office Visit Neurological Surgery Charles Ivey M.D., Ph.D. [address] [place] [address] [phone] 05/03/2022 Comprehensive Visit Clinical Genomics Sanya Mehta M.D. [address] [place] [address] [phone] 05/06/2022 Clinical Communication Admitting/Central Scheduling 05/09/2022 Office Visit Oncology Farzana Allen M.D. [address] [place] [phone] documented as of this encounter Visit Diagnoses Not on filedocumented in this encounter
--- OUTSIDE RECORDS SUMMARY | 2022-03-12 14:32 | XMS_ITS | Encounter Summary ---
:1970 Author Organization [facility] Address [address] [place] [address] Care Team Providers Name Role Phone Unavailable Primary Care Provider Unavailable Reason for Visit Radiation Therapy (Routine) - Authorized Specialty Diagnoses / Procedures Referred By Contact Refer red To Contact Diagnoses Malignant Neoplasm Of Brain (HCC) Stephanie Gleason M.D. [facility] Radiation Oncology Procedures Prior Auth Rad Tx [place] IMRT COMPLEX [address] [place] [address] [address] [place] [address] Referral ID Status Reason Start Date Expiration Date Visits V isits Requested Authorized [id number] Authorized 01/31/2022 12/31/2022 30 30 Encounter Details Date Type Department Care Team Description 02/08/2022 Hospital Encounter Department of Radiation Jacquelyn Gleason I., Oncology [place] [address] [facility] [address] [place] [phone] Social History Tobacco Use Types Packs/Day Years [...] or relatives? How often do you attend lutheran or More than 4 times per year 01/07/2022 adventist services? Do you belong to any clubs or No 01/07/2022 organizations such as lutheran groups, unions, fraternal or athletic groups, or [...] place to sleep or slept in a detention (including now)? Education Answer Date Recorded What is the highest level of school Master's degree (e.g., M Domingo, MS, 01/07/2022 you have completed or the highest Maulik, MEd, CASE MAKING MACHINE OPERATOR, 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 [...] Appointment Radiation Oncology Stephanie Gleason M.D. [address] [place] [address] [phone] 03/12/2022 Appointment Radiation Oncology Stephanie Gleason M.D. [address] [place] [address] [phone] 03/13/2022 Appointment Radiation Oncology Stephanie Gleason M.D. [address] [place] [address] [phone] 03/14/2022 Appointment Radiation Oncology Stephanie Gleason M.D. [address] [place] [address] [phone] 03/25/2022 Ancillary Procedure Ophthalmology Chas Shin M.D. [address] [place] [address] [phone] 03/25/2022 Ancillary Procedure Ophthalmology 03/25/2022 Ancillary Procedure Ophthalmology Chas Shin M.D. [address] [place] [address] [phone] 03/26/2022 Ancillary Procedure Ophthalmology Rebeca Valle P.A.-C., M.S. [address] [place] [address] [phone] 03/26/2022 Comprehensive Visit Ophthalmology Chas Shin M.D. [address] [place] [address] [phone] 03/29/2022 Comprehensive Visit Endocrinology Farzana Allen M.D. [address] [place] [phone] 04/04/2022 Appointment Radiology Christina Tai P.A.-C., M.S. [address] [place] [phone] 04/04/2022 Office Visit Oncology Vini Maki M.D., Ph.D. [address] [place] [phone] 04/04/2022 Office Visit Neurological Surgery Charles Ivey M.D., Ph.D. [address] [place] [address] [phone] 05/03/2022 Comprehensive Visit Clinical Genomics Sanya Mehta M.D. [address] [place] [address] [phone] 05/06/2022 Clinical Communication Admitting/Central Scheduling 05/09/2022 Office Visit Oncology Farzana Allen M.D. [address] [place] [phone] documented as of this encounter Visit Diagnoses Not on filedocumented in this encounter
--- OUTSIDE RECORDS SUMMARY | 2022-03-12 14:32 | XMS_ITS | Encounter Summary ---
:1970 Author Organization [facility] Address [address] [place] [address] Care Team Providers Name Role Phone Unavailable Primary Care Provider Unavailable Reason for Visit Reason Comments [facility]: CK Encounter Details Date Type Department Care Team Description 02/01/2022 Clinical Communication Department of Sejal Barnes [facility]: [facility] Genetics in S, M.S., [place], [place] [address] [place] [address] [address] [place] [phone] Social History Tobacco Use Types Packs/Day Years [...] or relatives? How often do you attend worship or More than 4 times per year 01/07/2022 jewish services? Do you belong to any clubs or No 01/07/2022 organizations such as worship groups, unions, fraternal or athletic groups, or [...] have completed or the highest Maulik, MEd, ADMINISTRATIVE OFFICE CLERK, 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 Sex Assigned at Date Recorded Female 01/07/2022 11:11 AM CDT documented as of this encounter Miscellaneous Notes Telephone Encounter - Laurie Warner - 02/27/2022 10:42 AM CDT Results received in dept pool. Forwarded to the provider for review. Positive, sent to Sejal Telephone Encounter - Kevan Borges - 02/22/2022 11:10 AM CDT Sample received by [facility] on 02/06, testing in progress Telephone Encounter - Laurie Warner - 02/01/2022 3:12 PM CDT Date: 02/01/22 Lab: [facility] Test: [facility] Single Gene Testing Sample: Lab to mail a kit to the pt and Mail Order has been scheduled and checked in. Provider: Sejal Resendiz [facility] Insurance: BRCA 1/2 only: [place], BCBS [place], CIGNA, Humana; & [employer] documented in this encounter Plan of Treatment Upcoming Encounters Date Type Specialty Care Team Description 03/12/2022 Appointment Radiation Oncology Stephanie Gleason M.D. [address] [place] [phone] 03/12/2022 Appointment Radiation Oncology Stephanie Gleason M.D. [address] [place] [phone] 03/13/2022 Appointment Radiation Oncology Stephanie Gleason M.D. [address] [place] [phone] 03/14/2022 Appointment Radiation Oncology Stephanie Gleason M.D. [address] [place] [address] [phone] 03/25/2022 Ancillary Procedure Ophthalmology Chas Shin M.D. [address] [place] [address] [phone] 03/25/2022 Ancillary Procedure Ophthalmology 03/25/2022 Ancillary Procedure Ophthalmology Chas Shin M.D. [address] [place] [phone] 03/26/2022 Ancillary Procedure Ophthalmology Rebeca Valle P.A.-C., M.S. [address] [place] [phone] 03/26/2022 Comprehensive Visit Ophthalmology Chas Shin M.D. [address] [place] [address] [phone] 03/29/2022 Comprehensive Visit Endocrinology Farzana Allen M.D. [address] [place] [phone] 04/04/2022 Appointment Radiology Christina Tai P.A.-C., M.S. [address] [place] [address] [phone] 04/04/2022 Office Visit Oncology Vini Maki M.D., Ph.D. [address] [place] [address] [phone] 04/04/2022 Office Visit Neurological Surgery Charles Ivey M.D., Ph.D. [address] [place] [address] [phone] 05/03/2022 Comprehensive Visit Clinical Genomics Sanya Mehta M.D. [address] [place] [address] [phone] 05/06/2022 Clinical Communication Admitting/Central Scheduling 05/09/2022 Office Visit Oncology Farzana Allen M.D. [address] [place] [address] [phone] documented as of this encounter Visit Diagnoses Not on filedocumented in this encounter
--- OUTSIDE RECORDS SUMMARY | 2022-03-12 14:32 | XMS_ITS | Encounter Summary ---
:1970 Author Organization [facility] Address [address] [place] [address] Care Team Providers Name Role Phone Unavailable Primary Care Provider Unavailable Reason for Visit Reason Comments Med Refill temozolomide, ondansetron Encounter Details Date Type Department Care Team Description 01/31/2022 Clinical Communication Department of Latanya Michael Med Refill Oncology in D, R.N., O.C.N. (temozolomide, [place], [facility] [place] [address] [facility] ondansetron ) [place], [place] [address] [facility] [address] [place] [phone] Social History Tobacco Use Types Packs/Day Years [...] or relatives? How often do you attend rastafarian or More than 4 times per year 01/07/2022 yarsani services? Do you belong to any clubs or No 01/07/2022 organizations such as rastafarian groups, unions, fraternal or athletic groups, or [...] place to sleep or slept in a correction (including now)? Education Answer Date Recorded What is the highest level of school Master's degree (e.g., M A, MS, 01/07/2022 you have completed or the highest Maulik, MEd, ELECTRONIC SCALE ASSEMBLER AND TESTER, 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 Sex Assigned at Date Recorded Female 01/07/2022 11:11 AM CDT documented as of this encounter Miscellaneous Notes Telephone Encounter - Trupti Pearson - 02/01/2022 9:50 AM CDT Patient to receive medication tomorrow 02/02 per phone call with [facility]. Telephone Encounter - Stacy Flanagan, R.N. - 01/31/2022 11:17 AM CDT Redirected to [facility] Telephone Encounter - Angeles Gates - 01/31/2022 11:12 AM CDT Received a call from [facility] asking that the temozolomide 140mg, 20mg and the ondansetron 8mg be redirected to [facility] [phone] documented in this encounter Plan of Treatment Upcoming Encounters Date Type Specialty Care Team Description 03/12/2022 Appointment Radiation Oncology Stephanie Gleason M.D. [address] [place] [phone] 03/12/2022 Appointment Radiation Oncology Stephanie Gleason M.D. [address] [place] [phone] 03/13/2022 Appointment Radiation Oncology Stephanie Gleason M.D. [address] [place] [phone] 03/14/2022 Appointment Radiation Oncology Stephanie Gleason M.D. [address] [place] [phone] 03/25/2022 Ancillary Procedure Ophthalmology Chas Shin M.D. [address] [place] [phone] 03/25/2022 Ancillary Procedure Ophthalmology 03/25/2022 Ancillary Procedure Ophthalmology Chas Shin M.D. [address] [place] [phone] 03/26/2022 Ancillary Procedure Ophthalmology Rebeca Valle P.A.-Rusty., M.S. [address] [place] [address] [phone] 03/26/2022 Comprehensive Visit Ophthalmology Chas Shin M.D. [address] [place] [phone] 03/29/2022 Comprehensive Visit Endocrinology Farzana Allen M.D. [address] [place] [phone] 04/04/2022 Appointment Radiology Christina Tai P.A.-C., M.S. [address] [place] [phone] 04/04/2022 Office Visit Oncology Vini Maki M.D., Ph.D. [address] [place] [address] [phone] 04/04/2022 Office Visit Neurological Surgery Charles Ivey M.D., Ph.D. [address] [place] [address] [phone] 05/03/2022 Comprehensive Visit Clinical Genomics Sanya Mehta M.D. [address] [place] [address] [phone] 05/06/2022 Clinical Communication Admitting/Central Scheduling 05/09/2022 Office Visit Oncology Farzana Allen M.D. [address] [place] [phone] documented as of this encounter Visit Diagnoses Diagnosis Malignant Neoplasm Of Brain (HCC) documented in this encounter
--- OUTSIDE RECORDS SUMMARY | 2022-03-12 14:32 | XMS_ITS | Encounter Summary ---
:1970 Author Organization [facility] Address [address] [place] [address] Care Team Providers Name Role Phone Unavailable Primary Care Provider Unavailable Reason for Visit Radiation Therapy (Routine) - Authorized Specialty Diagnoses / Procedures Referred By Contact Refer red To Contact Diagnoses Malignant Neoplasm Of Brain (HCC) Stephanie Gleason M.D. [facility] Radiation Oncology Procedures Prior Auth Rad Tx [place] IMRT COMPLEX [address] [place] [address] [address] [facility] [place] [address] Referral ID Status Reason Start Date Expiration Date Visits V isits Requested Authorized [id number] Authorized 01/31/2022 12/31/2022 30 30 Encounter Details Date Type Department Care Team Description 02/07/2022 Hospital Encounter Department of Radiation Jacquelyn Gleason I., [place] [address] [facility] [address] [place] [address] [phone] Social History Tobacco Use Types Packs/Day Years [...] or relatives? How often do you attend buddhist or More than 4 times per year 01/07/2022 adventism services? Do you belong to any clubs or No 01/07/2022 organizations such as buddhist groups, unions, fraternal or athletic groups, or [...] have completed or the highest Maulik, MEd, MEDICAL TECHNICAL WRITER, 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 Sex Assigned [...] Radiation Oncology Stephanie Gleason M.D. [address] [place] [address] [phone] 03/12/2022 Appointment Radiation Oncology Stephanie Gleason M.D. [address] [place] [address] [phone] 03/13/2022 Appointment Radiation Oncology Stephanie Gleason M.D. [address] [place] [address] [phone] 03/14/2022 Appointment Radiation Oncology Stephanie Gleason M.D. [address] [place] [address] [phone] 03/25/2022 Ancillary Procedure Ophthalmology Chas Shin M.D. [address] [place] [address] [phone] 03/25/2022 Ancillary Procedure Ophthalmology 03/25/2022 Ancillary Procedure Ophthalmology Chas Shin M.D. [address] [place] [address] [phone] 03/26/2022 Ancillary Procedure Ophthalmology Rebeca Valle P.A.-C., M.S. [address] [place] [address] [phone] 03/26/2022 Comprehensive Visit Ophthalmology Chas Shin M.D. [address] [place] [address] [phone] 03/29/2022 Comprehensive Visit Endocrinology Farzana Allen M.D. [address] [place] [phone] 04/04/2022 Appointment Radiology Christina Tai P.A.-C., M.S. [address] [place] [phone] 04/04/2022 Office Visit Oncology Vini Maki M.D., Ph.D. [address] [place] [phone] 04/04/2022 Office Visit Neurological Surgery Charles Ivey M.D., Ph.D. [address] [place] [address] [phone] 05/03/2022 Comprehensive Visit Clinical Genomics Sanya Mehta M.D. [address] [place] [address] [phone] 05/06/2022 Clinical Communication Admitting/Central Scheduling 05/09/2022 Office Visit Oncology Farzana Allen M.D. [address] [place] [phone] documented as of this encounter Visit Diagnoses Not on filedocumented in this encounter
--- OUTSIDE RECORDS SUMMARY | 2022-03-12 14:32 | XMS_ITS | Encounter Summary ---
:1970 Author Organization [facility] Address [address] [place] [address] Care Team Providers Name Role Phone Unavailable Primary Care Provider Unavailable Encounter Details Date Type Department Care Team Description 02/08/2022 Orders Only Department of Oncology Latanya Michael A strocytoma (HCC) in [place], R.N., O.C.N. (Primary Dx) [address] [place] [phone] Social History Tobacco Use Types Packs/Day Years [...] or relatives? How often do you attend roman catholic or More than 4 times per year 01/07/2022 yarsani services? Do you belong to any clubs or No 01/07/2022 organizations such as roman catholic groups, unions, fraternal or athletic groups, [...] have completed or the highest Maulik, MEd, FIRE BOSS, 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 Sex Assigned at Date Recorded Female 01/07/2022 11:11 AM CDT documented as of this encounter Plan of Treatment Upcoming Encounters Date Type Specialty Care Team Description 03/12/2022 Appointment Radiation Oncology Stephanie Gleason M.D. [address] [place] [address] [phone] 03/12/2022 Appointment Radiation Oncology Stephanie Gleason M.D. [address] [place] [address] [phone] 03/13/2022 Appointment Radiation Oncology Stephanie Gleason M.D. [address] [place] [address] [phone] 03/14/2022 Appointment Radiation Oncology Stephanie Gleason M.D. [address] [place] [address] [phone] 03/25/2022 Ancillary Procedure Ophthalmology Chas Shin M.D. [address] [place] [address] [phone] 03/25/2022 Ancillary Procedure Ophthalmology 03/25/2022 Ancillary Procedure Ophthalmology Chas Shin M.D. [address] [place] [phone] 03/26/2022 Ancillary Procedure Ophthalmology Rebeca Valle P.A.-C., M.S. [address] [place] [phone] 03/26/2022 Comprehensive Visit Ophthalmology Chas Shin M.D. [address] [place] [phone] 03/29/2022 Comprehensive Visit Endocrinology Farzana Allen M.D. [address] [place] [phone] 04/04/2022 Appointment Radiology Christina Tai P.A.-C., M.S. [address] [place] [phone] 04/04/2022 Office Visit Oncology Vini Maki M.D., Ph.D. [address] [place] [phone] 04/04/2022 Office Visit Neurological Surgery Charles Ivey M.D., Ph.D. [address] [place] [phone] 05/03/2022 Comprehensive Visit Clinical Genomics Sanya Mehta M.D. [address] [place] [address] [phone] 05/06/2022 Clinical Communication Admitting/Central Scheduling 05/09/2022 Office Visit Oncology Farzana Allen M.D. [address] [place] [phone] Scheduled Orders Name Type Priority Associated Diagnoses Order S chedule CBC with Differential, Lab Routine Astrocytoma (HCC) 6 Occurrences starting Blood 02/08/2022 unti l 02/08/2023 documented as of this encounter Visit Diagnoses Diagnosis Astrocytoma (HCC) - Primary documented in this encounter
--- OUTSIDE RECORDS SUMMARY | 2022-03-12 14:32 | XMS_ITS | Encounter Summary ---
:1970 Author Organization [facility] Address [address] [place] [phone] Care Team Providers Name Role Phone Unavailable Primary Care Provider Unavailable Encounter Details Date Type Department Care Team Description 02/02/2022 Clinical Communication Department of Oncology Jonathan West in [place] Turner M.D. [place] [address] [address] [place] [phone] Social History Tobacco Use Types Packs/Day Years [...] place to sleep or slept in a mcc (including now)? Education Answer Date Recorded What is the highest level of school Master's degree (e.g., M A, MS, 01/07/2022 you have completed or the highest Maulik, MEd, TELE RN, 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 Sex Assigned at Date Recorded Female 01/07/2022 11:11 AM CDT documented as of this encounter Miscellaneous Notes Telephone Encounter - Jonathan Amaya M.D. - 02/02/2022 5:28 PM CDT Received a call this afternoon as the oncology on-call provider from the patient and her collateral specialist. They indicated that they had received the temozolomide, and wanted to discuss sequence of taking thisnew medication along with her other regular medicines. We outlined a strategy of taking the evening Keppra and Zofran together, and then the temozolomide an hour thereafter, on an empty stomach, followed by the gabapentin before bedtime. In addition, they asked about hair loss with temozolomide. I explained most likely that she would experience some hair thinning, but full hair loss is not as common as with other kinds of chemotherapy. They were appreciative of the discussion. documented in this encounter Plan of Treatment Upcoming Encounters Date Type Specialty Care Team Description 03/12/2022 Appointment Radiation Oncology Stephanie Gleason M.D. 200 [place] [phone] 03/12/2022 Appointment Radiation Oncology Stephanie Gleason M.D. [address] [place] [phone] 03/13/2022 Appointment Radiation Oncology Stephanie Gleason M.D. [address] [place] [phone] 03/14/2022 Appointment Radiation Oncology Stephanie Gleason M.D. [address] [place] [phone] 03/25/2022 Ancillary Procedure Ophthalmology Chas Shin M.D. [address] [place] [address] [phone] 03/25/2022 Ancillary Procedure Ophthalmology 03/25/2022 Ancillary Procedure Ophthalmology Chas Shin M.D. [address] [place] [address] [phone] 03/26/2022 Ancillary Procedure Ophthalmology Rebeca Valle, Dilia-Rusty., M.S. [address] [place] [address] [phone] 03/26/2022 Comprehensive Visit Ophthalmology Chas Shin M.D. [address] [place] [address] [phone] 03/29/2022 Comprehensive Visit Endocrinology Farzana Allen M.D. [address] [place] [address] [phone] 04/04/2022 Appointment Radiology Christina Tai P.A.-C., M.S. [address] [place] [address] [phone] 04/04/2022 Office Visit Oncology Vini Maki M.D., Ph.D. [address] [place] [phone] 04/04/2022 Office Visit Neurological Surgery Charles Ivey M.D., Ph.D. [address] [place] [phone] 05/03/2022 Comprehensive Visit Clinical Genomics Sanya Mehta M.D. [address] [place] [address] [phone] 05/06/2022 Clinical Communication Admitting/Central Scheduling 05/09/2022 Office Visit Oncology Farzana Allen M.D. [address] [place] [phone] documented as of this encounter Visit Diagnoses Not on filedocumented in this encounter
--- OUTSIDE RECORDS SUMMARY | 2022-03-12 14:32 | XMS_ITS | Encounter Summary ---
:1970 Author Organization [facility] Address [address] [place] [address] Care Team Providers Name Role Phone Unavailable Primary Care Provider Unavailable Reason for Visit Radiation Therapy (Routine) - Authorized Specialty Diagnoses / Procedures Referred By Contact Refer red To Contact Diagnoses Malignant Neoplasm Of Brain (HCC) Stephanie Gleason M.D. [facility] Radiation Oncology Procedures Prior Auth Rad Tx [place] IMRT COMPLEX [address] [place] [facility] [place] [address] [address] [facility] [place] [address] Referral ID Status Reason Start Date Expiration Date Visits V isits Requested Authorized [id number] Authorized 01/31/2022 12/31/2022 30 30 Encounter Details Date Type Department Care Team Description 02/04/2022 Hospital Encounter Department of Radiation Jacquelyn Gleason I., [place] [address] [facility] [address] [place] [address] [phone] Social History Tobacco Use Types Packs/Day Years [...] or relatives? How often do you attend adventist or More than 4 times per year 01/07/2022 shinto services? Do you belong to any clubs or No 01/07/2022 organizations such as adventist groups, unions, fraternal or athletic groups, or [...] have completed or the highest Maulik, MEd, FOUNTAIN ROLLER ASSEMBLER, 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 Sex Assigned [...] Radiation Oncology Stephanie Gleason M.D. [address] [place] [phone] 03/12/2022 Appointment Radiation Oncology Stephanie Gleason M.D. [address] [place] [phone] 03/13/2022 Appointment Radiation Oncology Stephanie Gleason M.D. [address] [place] [phone] 03/14/2022 Appointment Radiation Oncology Stephanie Gleason M.D. [address] [place] [phone] 03/25/2022 Ancillary Procedure Ophthalmology Chas Shin M.D. [address] [place] [phone] 03/25/2022 Ancillary Procedure Ophthalmology 03/25/2022 Ancillary Procedure Ophthalmology Chas Shin M.D. [address] [place] [phone] 03/26/2022 Ancillary Procedure Ophthalmology Rebeca Valle, Dliia-C., M.S. [address] [place] [phone] 03/26/2022 Comprehensive Visit Ophthalmology Chas Shin M.D. [address] [place] [phone] 03/29/2022 Comprehensive Visit Endocrinology Farzana Allen M.D. [address] [place] [address] [phone] 04/04/2022 Appointment Radiology Christina Tai P.A.-C., M.S. [address] [place] [address] [phone] 04/04/2022 Office Visit Oncology Vini Maki M.D., Ph.D. [address] [place] [address] [phone] 04/04/2022 Office Visit Neurological Surgery Charles Ivey M.D., Ph.D. [address] [place] [address] [phone] 05/03/2022 Comprehensive Visit Clinical Genomics Sanya Mehta M.D. [address] [place] [address] [phone] 05/06/2022 Clinical Communication Admitting/Central Scheduling 05/09/2022 Office Visit Oncology Farzana Allen M.D. [address] [place] [phone] documented as of this encounter Visit Diagnoses Not on filedocumented in this encounter
--- OUTSIDE RECORDS SUMMARY | 2022-03-12 14:32 | XMS_ITS | Encounter Summary ---
:1970 Author Organization [facility] Address [address] [place] [address] Care Team Providers Name Role Phone Unavailable Primary Care Provider Unavailable Reason for Visit Radiation Therapy (Routine) - Authorized Specialty Diagnoses / Procedures Referred By Contact Refer red To Contact Diagnoses Malignant Neoplasm Of Brain (HCC) Stephanie Gleason M.D. [facility] Radiation Oncology Procedures Prior Auth Rad Tx [place] IMRT COMPLEX [address] [place] [address] [address] [facility] [address] Referral ID Status Reason Start Date Expiration Date Visits V isits Requested Authorized [id number] Authorized 01/31/2022 12/31/2022 30 30 Encounter Details Date Type Department Care Team Description 02/05/2022 Hospital Encounter Department of Radiation Jacquelyn Gleason I., [place] [address] [facility] [address] [place] [phone] Social History Tobacco Use Types Packs/Day Years [...] More than 4 times per year 01/07/2022 jehovah's witness services? Do you belong to any clubs [...] place to sleep or slept in a nursing home (including now)? Education Answer Date Recorded What is the highest level of school Master's degree (e.g., M Domingo, MS, 01/07/2022 you have completed or the highest Maulik, MEd, WORKDAY MANAGER, 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 Sex [...] mg total) at bedtime for 6 days. gabapentin (NEURONTIN) Take 1 capsule (300 14 [...] Appointment Radiation Oncology Stephanie Gleason M.D. [address] [place] [phone] 03/12/2022 Appointment Radiation Oncology Stephanie Gleason M.D. [address] [place] [address] [phone] 03/13/2022 Appointment Radiation Oncology Stephanie Gleason M.D. [address] [place] [phone] 03/14/2022 Appointment Radiation Oncology Stephanie Gleason M.D. [address] [place] [phone] 03/25/2022 Ancillary Procedure Ophthalmology Chas Shin M.D. [address] [place] [phone] 03/25/2022 Ancillary Procedure Ophthalmology 03/25/2022 Ancillary Procedure Ophthalmology Chas Shin M.D. [address] [place] [phone] 03/26/2022 Ancillary Procedure Ophthalmology Rebeca Valle P.A.-C., M.S. [address] [place] [phone] 03/26/2022 Comprehensive Visit Ophthalmology Chas Shin M.D. [address] [place] [address] [phone] 03/29/2022 Comprehensive Visit Endocrinology Farzana Allen M.D. [address] [place] [phone] 04/04/2022 Appointment Radiology Christina Tai P.A.-C., M.S. [address] [place] [phone] 04/04/2022 Office Visit Oncology Vini Maki M.D., Ph.D. [address] [place] [phone] 04/04/2022 Office Visit Neurological Surgery Charles Ivey M.D., Ph.D. [address] [place] [phone] 05/03/2022 Comprehensive Visit Clinical Genomics Sanya Mehta M.D. [address] [place] [phone] 05/06/2022 Clinical Communication Admitting/Central Scheduling 05/09/2022 Office Visit Oncology Farzana Allen M.D. [address] [place] [address] [phone] documented as of this encounter Visit Diagnoses Not on filedocumented in this encounter
--- OUTSIDE RECORDS SUMMARY | 2022-03-12 14:32 | XMS_ITS | Encounter Summary ---
:1970 Author Organization [facility] Address [address] [place] [id number] Care Team Providers Name Role Phone Unavailable Primary Care Provider Unavailable Reason for Referral Radiation Therapy (Routine) - Authorized Specialty Diagnoses / Procedures Referred By Contact Refer red To Contact Diagnoses Malignant Neoplasm Of Brain (HCC) Stephanie Gleason M.D. [facility] Radiation Oncology Procedures Management Visit [address] [facility] [place], [place] [phone] [place] [address] Referral ID Status Reason Start Date Expiration Date Visits V isits Requested Authorized [id number] Authorized 12/31/2021 12/31/2022 10 10 Reason for Visit Radiation Therapy (Routine) - Authorized Specialty Diagnoses / Procedures Referred By Contact Refer red To Contact Diagnoses Malignant Neoplasm Of Brain (HCC) Stephanie Gleason M.D. [facility] Radiation Oncology Procedures Management Visit [address] [place] [address] [phone] [place] [address] Referral ID Status Reason Start Date Expiration Date Visits V isits Requested Authorized [id number] Authorized 12/31/2021 12/31/2022 10 10 Encounter Details Date Type Department Care Team Description 02/05/2022 - Hospital Encounter Department of Stephanie Gleason Neoplasm 02/06/2022 Radiation Oncology Sebastian Marcelino Of Brain (HCC) in [place], [facility] [address]st [place], [place] [address] [facility] [phone] [place], [place] [phone] (Work) [phone] Social History Tobacco Use Types Packs/Day Years [...] many times do you More than three nsiha es a week 01/07/2022 talk on the phone with family, friends, or neighbors? How often do you get together with friends More than three t imes a week 01/07/2022 or relatives? How often do you attend shinto or More than 4 times per year 01/07/2022 yazdanism services? 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 Sex Assigned at Date Recorded Female 01/07/2022 11:11 AM CDT documented as of this encounter Last Filed Vital Signs Vital Sign Reading Time Taken Comments Blood Pressure 125/73 02/05/2022 3:51 PM CDT Pulse 69 02/05/2022 3:51 PM CDT Temperature 36.4 ??C (97.5 ??F) 02/05/2022 3:51 PM CDT Respiratory Rate - - Oxygen Saturation - - Inhaled Oxygen Concentration - - Weight 94.3 kg (207 lb 14.3 oz) 02/05/2022 3:51 PM CDT Height - - Body Mass Index 33.02 01/24/2022 9:36 AM CDT documented in this [...] Take 1 tablet by 0 mouth daily. ondansetron (ZOFRAN) 8 Take 1 tablet (8 [...] 1 capsule by 0 02/2022 mouth daily. gabapentin (NEURONTIN) Take 2 capsules (200 12 capsule 0 02/28/2022 100 mg capsule mg total) by mouth at bedtime for 3 days, THEN 1 capsule (100 mg total) at bedtime for 6 days. documented as of this encounter Progress Stephanie Lowry M.D. - 02/05/2022 4:15 PM CDT ATTESTATION FOR MANAGEMENT VISIT I saw and evaluated the patient and participated in the hill portions of the service as noted below.I reviewed the documentation of Ms. Eileen Hopkins RN and agree with the findings and plan. The patient appears well on exam. Her speech is notably more fluent. We will continue with radiation as planned and monitor weekly. They would like to see if they can taper off the Gabapentin. On February 06,I explained a 3 day taper of 200mg and then 3 days of 100mg and then stop if tolerating the taper. Stephanie Gleason M.D., 02/05/2022 SUBJECTIVE REASON FOR VISIT Evaluation for side [...] (cGy) First Treatment Last Treatment Elapsed Days [id number] [phone] 01/31/2022 02/04/2022 4 Course Summary 01/31/2022 02/04/2022 4 The patient was seen and examined today with Dr. Gleason. The patient reports that her intermittent headaches remain and slight worse in the evening. Patienttakes Tylenol in the evening and this helps manage her headache. Patient takes Tylenol in the afternoons on occasion. Patient denies fevers, nausea or vomiting. She continues to struggle some with word finding. She notes that she is able to write with more ease than speaking. She is able to readgraphic novels and large print books well. Her long distance vision has improved. She still struggles with vision close up. She does notice some pain to touch to the vein in her left wrist since removal of PIV. She has slight pain to the vein of right wrist since removal of PIV as well. Pain is only to touch and she has applied heat and has taken aspirin. PATIENT REPORTED SYMPTOM SCREEN FATIGUE (Scale: 0 = no fatigue; 10 = worst fatigue you can imagine): 3 PAIN (Scale: 0 = no pain; 10 = worst pain you can imagine): 2 OVERALL QUALITY OF LIFE (Scale: 0 = as bad as can be; 10 = as good as can be): 8 OBJECTIVE BP 125/73 (BP Location: Right arm, Patient Position: Sitting, Cuff Size: Large) Pulse 69 Temp 36.4 ??C (Temporal) Wt 94.3 kg LMP 01/07/2022 (Approximate) BMI 33.02 kg/m?? PHYSICAL EXAM General: Alert and oriented in no apparent distress. ASSESSMENT / PLAN #1 Glioblastoma, IDH-wildtype, MGMT non-methylated #2 Intensity modulated radiotherapy to the left sided cavity and SAMMY enhancement initiated on January 31, 2022; anticipated date of completion is on March 14, 2022; along with Temodar The patient is tolerating radiation treatment well overall. We will continue to monitor symptoms. Dr. Gleason will work on Gabapentin taper instructions for patient. I will discuss wig information with patient at her nurse education visit. We will continue to see patient in weekly management visits through out her course of radiation therapy. She will contact us with any questions or concerns. Wewill continue with radiation treatment as planned. Signed by: Eileen Hopkins R.N. 02/05/2022 4:21 PM CDT documented in this encounter Plan of Treatment Upcoming Encounters Date Type Specialty Care Team Description 03/12/2022 Appointment Radiation Oncology Stephanie Gleason M.D. [address] [place] [phone] 03/12/2022 Appointment Radiation Oncology Stephanie Gleason M.D. [address] [place] [phone] 03/13/2022 Appointment Radiation Oncology Stephanie Gleason M.D. [address] [place] [address] [phone] 03/14/2022 Appointment Radiation Oncology Stephanie Gleason M.D. [address] [place] [phone] 03/25/2022 Ancillary Procedure Ophthalmology Chas Shin M.D. [address] [place] [phone] 03/25/2022 Ancillary Procedure Ophthalmology 03/25/2022 Ancillary Procedure Ophthalmology Chas Shin M.D. [address] [place] [phone] 03/26/2022 Ancillary Procedure Ophthalmology Rebeca Valle P.Domingo.-C., M.S. [address] [place] [address] [phone] 03/26/2022 Comprehensive Visit Ophthalmology Chas Shin M.D. [address] [place] [phone] 03/29/2022 Comprehensive Visit Endocrinology Farzana Allen M.D. [address] [place] [phone] 04/04/2022 Appointment Radiology Christina Tai, P.A.-C., M.S. [address] [place] [address] [phone] 04/04/2022 Office Visit Oncology Vini Maki M.D., Ph.D. [address] [place] [phone] 04/04/2022 Office Visit Neurological Surgery Charles Ivey M.D., Ph.D. [address] [place] [phone] 05/03/2022 Comprehensive Visit Clinical Genomics Sanya Mehta M.D. [address] [place] [phone] 05/06/2022 Clinical Communication Admitting/Central Scheduling 05/09/2022 Office Visit Oncology Farzana Allen M.D. [address] [place] [phone] Scheduled Orders Name Type Priority Associated Diagnoses Order S chedule Management Visit Radiation Oncology Routine Malignant Neoplasm Once for 1 Of Brain (HCC) Occurrences s tarting 02/05/2022 unti l 02/05/2022 documented as of this encounter Visit Diagnoses Diagnosis Malignant Neoplasm Of Brain (HCC) documented in this encounter
--- OUTSIDE RECORDS SUMMARY | 2022-03-12 14:33 | XMS_ITS | Encounter Summary ---
:1970 Author Organization [facility] Address [address] [place] [phone] Care Team Providers Name Role Phone Unavailable Primary Care Provider Unavailable Reason for Referral Outpatient (Routine) - Closed Specialty Diagnoses / Procedures Referred By Contact Refer red To Contact Oncology Rebeca Valle P .A.-C., M.S. [facility] [address] [place] [phone] Referral ID Status Reason Start Date Expiration Date Visits Requ ested Visits Authorized [id number] Closed 01/30/2022 01/30/2023 1 1 utpatient (Routine) - Authorized Specialty Diagnoses / Procedures Referred By Contact Refer red To Contact Ophthalmology Diagnoses Malignant Neoplasm Of Brain (HCC) Blurred Vision Rebeca Valle [place] Kobi, M.S. [address] [place] [phone] Referral ID Status Reason Start Date Expiration Date Visits V isits Requested Authorized [id number] Authorized 01/30/2022 01/30/2023 1 1 utpatient (Routine) - Closed Specialty Diagnoses / Procedures Referred By Contact Refer red To Contact Oncology Rebeca Valle P .A.-C., MSanjuanitaSSanjuanita [address] [phone] Referral ID Status Reason Start Date Expiration Date Visits Requ ested Visits Authorized [id number] Closed 01/30/2022 01/30/2023 1 1 Reason for Visit Outpatient (Routine) - Closed Specialty Diagnoses / Procedures Referred By Contact Refer red To Contact Oncology Karthikeyan Cedeno M.D. [address] [phone] Referral ID Status Reason Start Date Expiration Date Visits Requ ested Visits Authorized [id number] Closed 01/03/2022 01/03/2023 1 1 Encounter Details Date Type Department Care Team Description 01/30/2022 Virtual Visit Department of Rebeca Valle Maligna nt Neoplasm Of Brain (HCC) (Primary Dx); Oncology in [place] Blurred Vision [address] [phone] Social History Tobacco Use Types Packs/Day Years [...] More than 4 times per year 01/07/2022 roman catholic services? 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 Sex Assigned at Date Recorded Female 01/07/2022 11:11 AM CDT documented as of this encounter Progress Notes Rebeca Valle P.A.-C., M.S. - 01/30/2022 1:00 PM CDT SUBJECTIVE COLLABORATING ONCOLOGIST: Dr. Maki PRIMARY GRESHAM ONCOLOGIST: No care pulp mill team leader to display CHIEF COMPLAINT/REASON FOR VISIT Mia Richardson is a 51 y.o. seen in phone visit telehealth accompanied by her mother, presents for evaluation of Glioblastoma, IDH wild type, MGMT unmethylated - 01/31/2022 - anticipated commencement of radiation therapy. HISTORY OF PRESENT ILLNESS Oncology History Oncology [...] sense. The patient was [facility] with altered mental status. The patient [...] with steroids and Keppra and transferred to [facility]. 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 See comment. B. 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 See comment. Final [...] Referral to Dr. Shelbie Ackerman at the [facility]. Discussed that it was okay forthe patient to proceed with chemotherapy and radiation 1 month from biopsy date. Also discussed that it was okay for the patient to travel on a commercial air flight approximately 1 month from biopsy as she was planning for a trip to [place] with her significant other in December. 12/24/[address] Shelbie Ackerman who reviewed the patient's case with Dr. Dunlap and he recommended against additional surgery. Dr. Macias recommended proceeding with a combination of radiation therapy plus temozolomide. Referral to Radiation Oncology at [facility] in [place]. 01/10/2022 Surgery and Procedures Left temporoparietal stereotactic craniotomy with tumor resection, speech mapping with Dr. Ivey. PATHOLOGY: A-D. Brain, left temporal lesion, resection: Glioblastoma, IDH-wildtype (OPERATIONS SECTION MANAGER WHO grade 4), clinically residual. See comment. COMMENT: The patient's history of left temporal-parietal mitotically-active infiltrating glioma status post biopsy on 12/06/2019 (reviewed at [facility], [id number]), is noted. The biopsy specimen lacked microvascular proliferation and tumor necrosis. By immunohistochemistry, the tumor cells were negative for IDH1-R132H and showed retained ATRX expression. 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 01/10/2022 Imaging MRI [...] in language. She was then seen in clinic on 01/03/[address] Cedeno, at that time, dexamethasone was being taken 4mg twice daily. She was doingwell until 01/05 when noted onset of clinical decline - fatigue, headaches, vision changes, speech changes, changes in taste and smell. She was seen in clinic on 01/09/2022 by medical oncology and neurosurgery. She was taken for repeat resection by Dr. Ivey on . Pathology indicating Glioblasto ma, IDH wild type, MGMT unmethylated. Anticipating starting radiation therapy with concurrent temozolomide on 01/31/2022. Temozolomide has been ordered but not dispensed. Since discharge from the hospital, Mia feels that things are going well. They do note a few symptoms Difficulty with sleep - she is staying up until around 11PM. Then she will sleep until around 3AM. Her mother does report, when she was in the ICU, she was woken around 3AM for dexamethasone. Thus, likely she is currently on a routine/circadian rhythm with the dexamethasone. Of note, she is not currently on dexamethasone. Not currently taking melatonin or sleeping medications. Irritability - noted moreso after the steroids Sensation of floating/weighed down by gravity. This changes day to day. Where she will need to be cautious when ambulating due to the changes in this sensation Changes in vision - noted to be worse in the morning, where it will take time to focus. Also vision changes with certain distances - blurry vision. 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 REVIEW OF SYSTEMS Constitutional: Positive for fatigue. Eyes: Positive for visual problems. Neurological: Positive for light-headedness, excessive daytime sleepiness, loss of balance or tendency to fall easily and headaches. Psychiatric/Behavioral: Positive for excessive daytime sleepiness/tiredness, little interest or pleasure in doing things over past two weeks, feeling down, depressed, or hopeless over past two weeks, not being able to stop or control worrying over past two weeks and feeling nervous, anxious, or on edge in past two weeks. The following systems were negative: Skin, ENT, CV, Respiratory, GI, , Hematologic, Musculoskeletal The following portions of the patient's history were reviewed and updated as appropriate: allergies,current medications, family history, medical history, social history, surgical history and problem list OBJECTIVE LMP 01/07/2022 (Approximate) PHYSICAL EXAMINATION Physical Exam LABORATORY DATA: Clinical Communication on 01/28/2022 Component Date Value ??? EXT Hemoglobin 01/28/2022 10.9 (A) ??? EXT Leukocytes 01/28/2022 8.01 ??? EXT Absolute Neutrophil * 01/28/2022 3.29 ??? EXT Lymphs Absolute 01/28/2022 3.97 (A) ??? EXT Platelet Count 01/28/2022 360 Admission on 01/17/2022, Discharged on 01/25/2022 Component Date Value ??? Potassium, S 01/18/2022 4.6 ??? Sodium, S 01/18/2022 137 ??? Chloride, S 01/18/2022 100 ??? Bicarbonate, S 01/18/2022 23 ??? Anion Gap 01/18/2022 14 ??? BUN (Blood Urea Nitrogen* 01/18/2022 15 ??? Creatinine, S 01/18/2022 0.73 ? ? eGFR-Non Black/ A* 01/18/2022 >90 ? ? eGFR-Black/ Ameri* 01/18/2022 >90 ??? Calcium, Total, S 01/18/2022 9.9 ??? Glucose, S 01/18/2022 122 ??? Potassium, S 01/22/2022 5.1 ??? Sodium, S 01/22/2022 137 ??? Chloride, S 01/22/2022 100 ??? Bicarbonate, S 01/22/2022 28 ??? Anion Gap 01/22/2022 9 ??? BUN (Blood Urea Nitrogen* 01/22/2022 17 ??? Creatinine, S 01/22/2022 0.71 ? ? eGFR-Non Black/ A* 01/22/2022 >90 ? ? eGFR-Black/ Ameri* 01/22/2022 >90 ??? Calcium, Total, S 01/22/2022 9.4 ??? Glucose, S 01/22/2022 100 RADIOLOGICAL DATA: Interpretation of Outside MR Head Result Date: 01/29/2022 Impression: Evolution of blood products within the left temporoparietal resection bed, now largely T1 hyperintense. Given the T1 hyperintensity, only a small amount of contrast enhancement is evident about the margins of the resection bed. Focus of restricted diffusion at superior margin of resection bed at the left parietal lobe. Ongoing signal abnormality at medial left temporal lobe extending intoadjacent thalamus; continued surveillance of these regions will be helpful given possibility of additional sites of tumor involvement. REPORTS: I personally reviewed current labs and imaging. ASSESSMENT / PLAN 1. Glioblastoma Ms. Cedillo presents today for follow up. In brief, she underwent biopsy on 12/05/2021 - pathology indicating at least grade 3 - astrocytoma, IDH wild type, MGMT unmethylated. Since that time, she has completed dexamethasone taper - which lead to difficulty in language. She was then seen in clinic on 01/03/[address] Sener, at that time, dexamethasone was being taken 4mg twice daily. She was doing well until 01/05 when noted onset of clinical decline - fatigue, headaches, vision changes, speech changes, changes in taste and smell. She was seen in clinic on 01/09/2022 by medical oncology and neurosurgery. She was taken for repeat resection by Dr. Ivey on . Pathology indicating Glioblastoma,IDH wild type, MGMT unmethylated. Anticipating starting radiation therapy with concurrent temozolomide on 01/31/2022. Temozolomide has been ordered. Since she was last seen, she does feel that things are going well. She and her mother do note some symptoms: difficulty with sleep, irritability, floating sensation, and vision changes - I anticipate these may be due to the previous steroid, possible medications, and resection. We discussed the plan moving forward. We discussed the next steps in care. First continuing with radiation and chemotherapy. Plan: - radiation therapy starting 01/31 - temozolomide prescribed and expedited - discussed weekly labs - [facility] - follow up fdc and the end of radiation - appointment with integrative regarding supplement/vitamin questions We will plan on seeing the patient back fdc and at the end of radiation therapy. However, patient knows to contact us in the interim with any new or worsening symptoms or concerns. Seizures: Keppra 1000mg twice daily, Gabapentin 300mg in the evening Dexamethasone: not currently taking Anticoagulation: not currently taking 2. Sleeping difficulty I anticipate this is due to the previous dexamethasone and regimen of dosing. I am hopeful that thiswill improve. We did discuss trialing melatonin. If ongoing or worsened difficulty sleeping, we did discuss using sleeping medications of Ambien. 3. Vision changes Noted changes in vision with difficulty focusing primarily in the morning. Then some changes in vision with different distances. I recommend they see the Neuro ophthalmology team here at [place]. - consult placed for neuro opthalmology PATIENT EDUCATION: Ready to learn, no apparent learning barriers were identified; learning preferences include listening. Explained diagnosis and treatment plan; patient expressed understanding of the content. Discussed with the patient we work together as a care team of physicians, nurse practitioners/physician assistants, nurses and other customer support specialist that specialize in this cancer. Also, reviewed the importance of maintaining ongoing care with local oncology team and primary care physician. ADMINISTRATIVE BILLING: Consult conducted via real-time audio/video technology by Ashley Romero., M.SSanjuanita in [facility] to the patient in their home. 30 minutes including visit, reviewing records, coordinating care. documented in this encounter Plan of Treatment Upcoming Encounters Date Type Specialty Care Team Description 03/12/2022 Appointment Radiation Oncology Stephanie Gleason M.D. [address] [place] [phone] 03/12/2022 Appointment Radiation Oncology Stephanie Gleason M.D. [address] [place] [address] [phone] 03/13/2022 Appointment Radiation Oncology Stephanie Gleason M.D. [address] [place] [phone] 03/14/2022 Appointment Radiation Oncology Stephanie Gleason M.D. [address] [place] [phone] 03/25/2022 Ancillary Procedure Ophthalmology Chas Shin M.D. [address] [place] [address] [phone] 03/25/2022 Ancillary Procedure Ophthalmology 03/25/2022 Ancillary Procedure Ophthalmology Chas Shin M.D. [address] [place] [address] [phone] 03/26/2022 Ancillary Procedure Ophthalmology Rebeca Valle P.A.-C., M.S. [address] [place] [phone] 03/26/2022 Comprehensive Visit Ophthalmology Chas Shin M.D. [address] [place] [address] [phone] 03/29/2022 Comprehensive Visit Endocrinology Farzana Allen M.D. [address] [place] [address] [phone] 04/04/2022 Appointment Radiology Christina Tai P.A.-C., M.S. [address] [place] [address] [phone] 04/04/2022 Office Visit Oncology Vini Maki M.D., Ph.D. [address] [place] [address] [phone] 04/04/2022 Office Visit Neurological Surgery Charles Ivey M.D., Ph.D. [address] [place] [address] [phone] 05/03/2022 Comprehensive Visit Clinical Genomics Sanya Mehta M.D. [address] [place] [address] [phone] 05/06/2022 Clinical Communication Admitting/Central Scheduling 05/09/2022 Office Visit Oncology Farzana Allen M.D. [address] [place] [address] [phone] Scheduled Referrals Name Type Priority Associated Order Schedule Diagnoses Oncology office visit Outpatient Referral Routine Expected: (clinic) 02/19/2022, Treatment/Toxicity Expires: (MD/CRAIG); Brain 05/02/2023 Ophthalmology - Neuro Outpatient Referral Routine Malignant Ne oplasm Expected: consult (clinic) Of Brain (HCC) 01/30/2022 Blurred Vision (Approximate) , Expires: 05/02/2023 Oncology office visit Outpatient Referral Routine Expected: (clinic) 03/07/2022, Treatment/Toxicity Expires: (MD/CRAIG); Brain 05/02/2023 documented as of this encounter Visit Diagnoses Diagnosis Malignant Neoplasm Of Brain (HCC) - Prim uyen Blurred Vision documented in this encounter
--- OUTSIDE RECORDS SUMMARY | 2022-03-12 14:33 | XMS_ITS | Encounter Summary ---
:1970 Author Organization [facility] Address [address] [place] [address] Care Team Providers Name Role Phone Unavailable Primary Care Provider Unavailable Reason for Visit Outpatient (Routine) - Closed Specialty Diagnoses / Procedures Referred By Contact Refer red To Contact Clinical Genomics Diagnoses Malignant Neoplasm Of Brain (HCC) Cliff Sumner M.D., [facility] [address] [place] [phone] Referral ID Status Reason Start Date Expiration Date Visits Requ ested Visits Authorized [id number] Closed 01/01/2022 01/01/2023 1 1 Encounter Details Date Type Department Care Team Description 01/31/2022 Telemedicine Department of Medical Moise Sumner M.D., M.S. [address] [place] [phone] Family History Carrier Genetic Disease ( Primary Dx); Genetics in Sejal Resendiz M.S., [facility] [address] [place] [phone] Malignant Neoplasm Of Brain (HCC) [place], [place] [address] [place] [phone] Social History Tobacco Use Types Packs/Day Years [...] have completed or the highest Maulik, MEd, PANAMA HAT BLOCKER, 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 Sex Assigned at Date Recorded Female 01/07/2022 11:11 AM CDT documented as of this encounter Consult Notes Sejal Resendiz M.S., [facility] - 01/31/2022 2:15 PM CDT Images from the original note were not included. REFERRING PROVIDER Cliff Sumner M.D., M.* CHIEF COMPLAINT glioblastoma; Family history of a pathogenic variant in CHEK2 HISTORY OF PRESENT ILLNESS Mia Richardson is a 51 y.o. female referred by Cliff Sumner M.D., M.S. for genetic counseling andconsideration of genetic testing due to a family history of a pathogenic variant in CHEK2 and her diagnosis of glioblastoma. The patient was diagnosed with glioblastoma at age 51y. She has undergone craniotomy and resection and is starting radiation. She is currently undergoing cancer screening including mammograms, which have been normal. The patient retains uterus and ovaries at age 51. The patient???s mother was identified to carry a pathogenic variant in CHEK2. Ms. Cedillo brought a copy of her family member's genetic test report to today's consultation. 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 Ms. Cedillo underwent somatic genetic testing and this variant was identified at a frequency suggestive of it being a germline variant. The testing was unable to confirm this, however, and confirmatory germline testing was recommended. Ms. Cedillo attended today???s consultation with her mother, Libby. Consult conducted via real-time audio/video technology by Sejal Resendiz M.S., J[facility]EL in [facility] to the patient in Patient's Home FAMILY HISTORY A detailed family history was obtained from the patient and a pedigree was constructed. The pedigreewill be saved as a scanned document and available for viewing under the Media tab of [employer]. Our risk assessment is based upon medical and family history information as provided by the patient, and may change in the future should new information be obtained. Relevant History: Mother - breast cancer dx 55y, SCC on nose dx 69y, Hx significant sun exposure, currently 72y, tested positive for CHEK2 c.1100del. To their knowledge, no one else in the family has undergone genetic testing for the CHEK2 variant. Maternal aunt - breast cancer dx 70y, currently 74y MGF - passed of lung cancer at 56y (Hx tobacco use) Maternal-paternal great uncle - lung cancer dx after age 50y (Hx tobacco use) Maternal-paternal great grandfather- lung cancer dx after age 50y (Hx tobacco use) MGM - possible colon cancer dx after age 50y, passed at 95y Maternal-maternal great uncle - leukemia dx at unspecified age Maternal-maternal great uncle - brain tumor dx at unspecified age Maternal-maternal great grandmother - colon cancer dx 50s Paternal uncle - prostate cancer dx 70s The patient???s maternal ancestry is Bulgarian, Kiswahili, Thai, Yi; the patient???s paternal ancestry is Yi, Andorran, Colombian, Malawian. There is no reported consanguinity or Ashkenazi Islam ancestry. IMPRESSION/REPORT/PLAN PATIENT EDUCATION We discussed that cancer is a relatively common diagnosis in the general population, and the majority of these cancers are either sporadic or familial. Hereditary cancers are caused by mutations withina single cancer susceptibility gene. Families with hereditary cancers tend to have the following features: specific types of cancer in multiple close relatives and in several consecutive generations, early age at diagnosis (under 50), multiple primary or bilateral tumors, and a lack of environmental or other known risk factors. Ms. Cedillo's mother is known to have a pathogenic variant in CHEK2. The patient understands she is technically at 50% risk of also carrying the known familial variant, based on her relation to the affected relative. Based on her somatic testing, however, it is very likely he did inherit this variant.Confirmatory germline testing for the familial variant was offered to the patient. We discussed the cancer risks and management strategies for individuals with a pathogenic variant in CHEK2. Women with a pathogenic variant in CHEK2 have a 25-39% lifetime chance to develop breast cancer. Estimates of cancer risk are still strongly influenced by the family history of cancer, which should remain an important tool in predicting cancer risk and management. Other risks associated with CHEK2 include a moderately elevated risk for colorectal cancer for men and women. Data also suggests an elevated risk for thyroid cancer and prostate cancer. No specific lifetime risk estimates have been established yet in this regard. Research regarding the cancer risks associated with CHEK2 is ongoing, and these will likely become more well-defined over time. At this time there is no confirmed association between germline CHEK2 variants and glioblastoma/astrocytoma. As such, there is no standard treatment or screening recommendations for glioblastoma for individuals carrying a CHEK2 mutation. If Ms. Cedillo tests positive for the CHEK2 mutation, it will be difficult to determine whether it played a causative role in her diagnosis. We discussed the possible implications of a positive test result including screening recommendationsfrom the National Comprehensive Cancer Network (NCCN). If the patient is found to carry the familialCHEK2 variant, we will discuss the plan for her future management, and the plan for testing other relatives. We also discussed the implications of a negative test result. If the patient is not found tocarry the familial CHEK2 variant, she would likely be closer to general population risk for the development of CHEK2-associated cancers, although some residual familial risk may still be applicable. General population screening recommendations would still apply to the patient. PLAN At the end of our visit, the patient elected to pursue CHEK2 analysis reflexing regardless of the results to the Multi-Cancer + Nervous System/Brain Cancer panel, available from [employer]. Ms. Cedillo will be sent a saliva kit by the laboratory. Approximate cost, insurance coverage,and laws governing genetic discrimination were discussed. Risks, benefits, and limitations of genetic testing were discussed. The laboratory will complete insurance pre-authorization for the test and will contact her if the [id number]-[id number] costs exceed $100. PERSONAL AND FAMILY SCREENING RECOMMENDATIONS PERSONAL SCREENING It is important for the patient to continue to follow the cancer screening recommendations provided by her physicians. FAMILY SCREENING Individuals in this family with a first- or second-degree relative diagnosed with glioblastoma/astrocytoma may remain at increased risk for this cancer given their family history. These individuals would be advised to share their family history with their care providers and discuss their screening options with their care providers. These screening recommendations are based on national guidelines. Final screening recommendations should be deferred to the discretion of the managing physician. Other screening recommendations, such as those made by the [place] [employer], do remain appropriate. The patient will be contacted discuss results in approximately 2-3 weeks. Screening recommendations will be made for the patient and her family members at the time of results disclosure. It was a pleasure to meet Ms. Cedillo today. She is certainly welcome to contact me should any questions or concerns arise. PATIENT EDUCATION: All of the above was discussed in detail with the patient who verbalized understanding. The patient's questions were answered. Total time: 50 minutes documented in this encounter Plan of Treatment Upcoming Encounters Date Type Specialty Care Team Description 03/12/2022 Appointment Radiation Oncology Stephanie Gleason M.D. [address] [place] [phone] 03/12/2022 Appointment Radiation Oncology Stephanie Gleason M.D. [address] [place] [phone] 03/13/2022 Appointment Radiation Oncology Stephanie Gleason M.D. [address] [place] [phone] 03/14/2022 Appointment Radiation Oncology Stephanie Gleason M.D. [address] [place] [phone] 03/25/2022 Ancillary Procedure Ophthalmology Chas Shin M.D. [address] [place] [phone] 03/25/2022 Ancillary Procedure Ophthalmology 03/25/2022 Ancillary Procedure Ophthalmology Chas Shin M.D. [address] [place] [phone] 03/26/2022 Ancillary Procedure Ophthalmology Rebeca Valle, Tu.A.-C., M.S. [address] [place] [phone] 03/26/2022 Comprehensive Visit Ophthalmology Chas Shin M.D. [address] [place] [phone] 03/29/2022 Comprehensive Visit Endocrinology Farzana Allen M.D. [address] [place] [phone] 04/04/2022 Appointment Radiology Christina Tai P.Domingo.-C., M.S. [address] [place] [phone] 04/04/2022 Office Visit Oncology Vini Maki M.D., Ph.D. [address] [place] [phone] 04/04/2022 Office Visit Neurological Surgery Charles Ivey M.D., Ph.D. [address] [place] [phone] 05/03/2022 Comprehensive Visit Clinical Genomics Sanya Mehta M.D. [address] [place] [phone] 05/06/2022 Clinical Communication Admitting/Central Scheduling 05/09/2022 Office Visit Oncology Farzana Allen M.D. [address] [place] [phone] Pending Results Name Type Priority Associated Diagnoses Date/Ti sd [id number] [facility] Routine Malignant Neoplasm Of 02/05/2022 12:00 AM Single Gene Testing - Brain (HCC ) CDT Miscellaneous Test Family History Carrier Genetic Disease documented as of this encounter Visit Diagnoses Diagnosis Family History Carrier Genetic Disease - Primary Malignant Neoplasm Of Brain (HCC) documented in this encounter
--- OUTSIDE RECORDS SUMMARY | 2022-03-12 14:33 | XMS_ITS | Encounter Summary ---
:1970 Author Organization [facility] Address [address] [place] [address] Care Team Providers Name Role Phone Unavailable Primary Care Provider Unavailable Encounter Details Date Type Department Care Team Description 01/28/2022 Ancillary Procedure Department of Cliff Sumner Mali gnant Neoplasm Radiology in M.D., M.S. Of [facility] ([facility] [place], [place] [address] [facility] [address] [place] [phone] Social History Tobacco Use Types Packs/Day Years [...] have completed or the highest Maulik, MEd, MACHINE IRONER, 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 Sex Assigned at Date Recorded Female 01/07/2022 11:11 AM CDT documented as of this encounter Plan of Treatment Upcoming Encounters Date Type Specialty Care Team Description 03/12/2022 Appointment Radiation Oncology Stephanie Gleason M.D. [address] [place] [phone] 03/12/2022 Appointment Radiation Oncology Stephanie Gleason M.D. [address] [place] [phone] 03/13/2022 Appointment Radiation Oncology Stephanie Gleason M.D. [address] [place] [address] [phone] 03/14/2022 Appointment Radiation Oncology Stephanie Gleason M.D. [address] [place] [address] [phone] 03/25/2022 Ancillary Procedure Ophthalmology Chas Shin M.D. [address] [place] [phone] 03/25/2022 Ancillary Procedure Ophthalmology 03/25/2022 Ancillary Procedure Ophthalmology Chas Shin M.D. [address] [place] [phone] 03/26/2022 Ancillary Procedure Ophthalmology Rebeca Valle P.A.-C., M.S. [address] [place] [address] [phone] 03/26/2022 Comprehensive Visit Ophthalmology Chas Shin M.D. [address] [place] [phone] 03/29/2022 Comprehensive Visit Endocrinology Farzana Allen M.D. [address] [place] [phone] 04/04/2022 Appointment Radiology Christina Tai P.A.-C., M.S. [address] [place] [phone] 04/04/2022 Office Visit Oncology Vini Maki M.D., Ph.D. [address] [place] [phone] 04/04/2022 Office Visit Neurological Surgery Charles Ivey M.D., Ph.D. [address] [place] [address] [phone] 05/03/2022 Comprehensive Visit Clinical Genomics Sanya Mehta M.D. [address] [place] [phone] 05/06/2022 Clinical Communication Admitting/Central Scheduling 05/09/2022 Office Visit Oncology Farzana Allen M.D. [address] [place] [phone] documented as of this encounter Procedures Procedure Name Priority Date/Time Associated Comments Diagnosis INTERPRETATION OF RAD - Routine 01/28/2022 8:21 Malignant Resul ts for OUTSIDE MR HEAD (most inpatients PM CDT Neoplasm Of this pro cedure and all Brain (HCC) are in the outpatients) results section. documented in this encounter Results Interpretation of Outside MR Head (01/28/2022 8:21 [...] 8 mm in thickness. Interval decrease in cktc-gs-[id number] midli ne shift with improved patency of [...] 8 mm in thickness. Interval decrease in amiz-ef-bqgye midli ne shift with improved patency of [...] Cliff Sumner M.D., M.S. IMG MRI PROCEDURES documented in this encounter Visit Diagnoses Diagnosis Malignant Neoplasm Of Brain (HCC) documented in this encounter
--- OUTSIDE RECORDS SUMMARY | 2022-03-12 14:33 | XMS_ITS | Encounter Summary ---
:1970 Author Organization [facility] Address [address] [place] [address] Care Team Providers Name Role Phone Unavailable Primary Care Provider Unavailable Reason for Referral Radiation Therapy (Routine) - Closed Specialty Diagnoses / Procedures Referred By Contact Refer red To Contact Diagnoses Malignant Neoplasm Of Brain (HCC) Stephanie Gleason M.D. [facility] Procedures Initial Rad Onc Treatment Planning CT Simulation [address] [place] [phone] Referral ID Status Reason Start Date Expiration Date Visits Requ ested Visits Authorized [id number] Closed 12/31/2021 12/31/2022 1 1 Reason for Visit Radiation Therapy (Routine) - Closed Specialty Diagnoses / Procedures Referred By Contact Refer red To Contact Diagnoses Malignant Neoplasm Of Brain (HCC) Stephanie Gleason M.D. [facility] Procedures Initial Rad Onc Treatment Planning CT Simulation 200 [place] [phone] Referral ID Status Reason Start Date Expiration Date Visits Requ ested Visits Authorized [id number] Closed 12/31/2021 12/31/2022 1 1 Encounter Details Date Type Department Care Team Description 01/28/2022 Hospital Encounter Department of Stephanie Gleason Neoplasm Radiation Oncology Sebastian Marcelino Of Brain (HCC) in [place], [address] [place] [address] [address] [phone] [place], [place] [phone] (Work) [phone] Social History Tobacco Use Types Packs/Day Years [...] to sleep or slept in a senior living (including now)? Education Answer Date Recorded What is the highest level of school Master's degree (e.g., M A, MS, 01/07/2022 you have completed or the highest Maulik, MEd, DIRECTOR STARS, 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 Sex Assigned [...] by mouth 2 (two) times a day. VITAMIN B COMPLEX ORAL Take 1 tablet by 0 mouth daily. gabapentin (NEURONTIN) Take 1 capsule (300 14 capsule 0 09/202102/06/2022 300 mg capsule mg total) by mouth at bedtime. 25/iron Take 1 tablet by 0 fum/folic/dha mouth daily. (-1 ORAL) TURMERIC ORAL Take 1 capsule by 0 /0 02/2022 mouth daily. documented as of this encounter Procedure Notes Zuly Blancas, RTT - 01/28/2022 11:00 AM CDTAssociated Order(s): Initial Rad Onc Treatment Planning CT Simulation Pre-Procedure Diagnose(s): Malignant Neoplasm Of Brain (HCC) Post-Procedure Diagnose(s): Malignant Neoplasm Of Brain (HCC) Initial Rad Onc Treatment Planning CT Simulation Date/Time: 01/28/2022 11:43 AM Performed by: Stephanie Gleason M.D. Authorized by: Stephanie Gleason M.D. Simulation was performed under physician supervision based on physician order in preparation for radiation therapy. Physician was immediately available to provide assistance and direction throughout the procedure. Written consent for treatment was completed or confirmed. The patient was appropriately identified and placed in the treatment position using the necessary immobilization to ensure a reproducible treatment position. Reference adams were placed to facilitate marking of isocenter. Area scanned:Head and Neck Contrast used for the simulation procedure: None Patient position:head first supine Custom immobilization: 3 point mask and Custom neck rest Motion management: None Bolus: No CT guidance: Following positioning of the patient, a series of slices was obtained to be utilized in treatment planning. CT images were transferred to the [employer] treatment planning system, after a reference isocenter was determined and marked. Segmentation and treatment planning will take place minna or to treatment delivery. Patient set up and imaging was appropriate and completed without incident. Orthopedic Assistant use:No documented in this encounter Plan of Treatment Upcoming Encounters Date Type Specialty Care Team Description 03/12/2022 Appointment Radiation Oncology Stephanie Gleason M.D. [address] [place] [phone] 03/12/2022 Appointment Radiation Oncology Stephanie Gleason M.D. [address] [place] [phone] 03/13/2022 Appointment Radiation Oncology Stephanie Gleason M.D. [address] [place] [phone] 03/14/2022 Appointment Radiation Oncology Stephanie Gleason M.D. [address] [place] [phone] 03/25/2022 Ancillary Procedure Ophthalmology Chas Shin M.D. [address] [place] [phone] 03/25/2022 Ancillary Procedure Ophthalmology 03/25/2022 Ancillary Procedure Ophthalmology Chas Shin M.D. [address] [place] [phone] 03/26/2022 Ancillary Procedure Ophthalmology Rebeca Valle P.A.-C., M.S. [address] [place] [phone] 03/26/2022 Comprehensive Visit Ophthalmology Chas Shin M.D. [address] [place] [phone] 03/29/2022 Comprehensive Visit Endocrinology Farzana Allen M.D. [address] [place] [address] [phone] 04/04/2022 Appointment Radiology Christina Tai P.A.-C., M.S. [address] [place] [phone] 04/04/2022 Office Visit Oncology Vini Maki M.D., Ph.D. [address] [place] [phone] 04/04/2022 Office Visit Neurological Surgery Charles Ivey M.D., Ph.D. [address] [place] [phone] 05/03/2022 Comprehensive Visit Clinical Genomics Sanya Mehta M.D. [address] [place] [phone] 05/06/2022 Clinical Communication Admitting/Central Scheduling 05/09/2022 Office Visit Oncology Farzana Allen M.D. [address] [place] [phone] documented as of this encounter Procedures Procedure Name Priority Date/Time Associated Comments Diagnosis INITIAL RAD ONC Routine 01/28/2022 11:43 AM Malignant Neoplasm Results for this TREATMENT PLANNING CDT Of Brain (HCC) procedu re are in CT SIMULATION the results section. documented in this encounter Results Initial Rad Onc Treatment Planning CT Simulation (01/28/2022 11:43 AM CDT) Specimen (Source) Anatomical Location Collection Method / Collectio n Time Received Time / Laterality Volume Narrative AYANNA ARECHIGA - 01/28/2022 11:43 AM CDT Zuly Blancas, RTT ? 01/28/2022 11:44 AM Initial Rad Onc Treatment Planning CT Si mulation Date/Time: 01/28/2022 11:43 AM Performed by: Stephanie Gleason M.D. Authorized by: Stephanie Gleason M.D. Stephanie Gleason M.D. RADIATION ONCOLOGY ORDERABLE S Performing Organization Address City/State/ZIP Code Phon e Number [facility] carlos documented in this encounter Visit Diagnoses Diagnosis Malignant Neoplasm Of Brain (HCC) documented in this encounter
--- OUTSIDE RECORDS SUMMARY | 2022-03-12 14:33 | XMS_ITS | Encounter Summary ---
:1970 Author Organization [facility] Address [address] [place] [address] Care Team Providers Name Role Phone Unavailable Primary Care Provider Unavailable Encounter Details Date Type Department Care Team Description 01/25/2022 Clinical Communication Department of Stephanie Gleason Radiation Oncology in [place] Marcelino [facility] 200 [facility] [address] [place] [phone] Social History Tobacco Use Types Packs/Day Years [...] More than 4 times per year 01/07/2022 catholic services? Do you belong to any [...] place to sleep or slept in a [place] health care facility (including now)? Education Answer Date Recorded What is the highest level of school Master's degree (e.g., M A, MS, 01/07/2022 you have completed or the highest Maulik, MEd, PASTEURISER OPERATOR, 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 Sex Assigned at Date Recorded Female 01/07/2022 11:11 AM CDT documented as of this encounter Miscellaneous Notes Telephone Encounter - Stacy Easley P.A.-C., M.S. - 01/25/2022 4:55 PM CDT I called and spoke to the patient's mother, Libby, today (authorization is on file). She again reported that the patient has been on a dexamethasone taper and is currently taking 1 mg 4 times per day.She was instructed to continue the taper which will have her discontinuing the medication tomorrow night. She is asking if stopping dexamethasone is going to cause issues for the patient's simulation scan and MRI scan on Friday or for radiation treatments in terms of swelling. I explained that we are fine with the patient continuing the dexamethasone taper and discontinuing the medication as instructed by neurosurgery and at hospital discharge. The patient is being seen by Dr. Gleason on Friday and will be re-assessed at that time. If the patient does experience swelling or worsening of symptomsafter stopping the dexamethasone or with radiation treatment, we discussed that we may need to re-start it again in the future. Again, I explained that she should continue with the dexamethasone taperas prescribed. Libby then asked if I had discussed this with anyone else and I explained that I had not as I wanted to return her call prior to the weekend. She requested that I speak to a doctor about her concerns. I explained that our clinic is closed, but that I would try and contact Dr. Gleason to discuss. I was able to connect with Dr. Gleason and reviewed the patient's situation and her mother's questions. Dr. Gleason agreed with continuing the dexamethasone taper as prescribed, discontinuing the medication tomorrow, and re-assessing the patient at her scheduled visit on Friday. I tried multiple times to reach Libby and was able to speak to her again. I explained that I was able to connect with Dr. Gleason and that she agreed with what we discussed and that the patient can continue the dexamethasone taper as prescribed. She did comment that they have a lot of dexamethasone 4 mg tablets still and I recommended for her to keep those available if they might be needed in the future. They will be seen at the patient's scheduled visit on Friday. She verbally expressed her understanding of the plan. Stacy Easley P.A.-C. Telephone Encounter - Alexandria Austin Aneudy - 01/25/2022 3:40 PM CDT Caller: Mother - Libby Is there a valid authorization to speak with caller? Yes Primary Radiation Oncologist: Dr. Gleason Reason for call: Libby called regarding patient's dexamethisone prescription. She was discharged today from Rehab and is home now. She is currently taking 1 mg 4 times a day, but the discharge instructions and providers told her she could stop tomorrow. Libby is wondering if we want her on dex for her SIM and MRI on Friday and for her upcoming radiation treatments? Would like a call back. Phone number: [phone] Is it okay to leave a voicemail on answering machine with test results? Yes Pharmacy (if medication related): [facility] [address] [place] [address] [address] [facility] [address] [facility] [address] [facility] [place], [place] - [address] [facility] [address] [facility] [address] [facility] Rhona Shari [facility], [place] - [address] [place] [address] [place] [phone] Alexandria Austin documented in this encounter Plan of Treatment Upcoming Encounters Date Type Specialty Care Team Description 03/12/2022 Appointment Radiation Oncology Stephanie Gleason M.D. [address] [place] [address] [phone] 03/12/2022 Appointment Radiation Oncology Stephanie Gleason M.D. [address] [place] [address] [phone] 03/13/2022 Appointment Radiation Oncology Stephanie Gleason M.D. [address] [place] [address] [phone] 03/14/2022 Appointment Radiation Oncology Stephanie Gleason M.D. [address] [place] [address] [phone] 03/25/2022 Ancillary Procedure Ophthalmology Chas Shin M.D. [address] [place] [address] [phone] 03/25/2022 Ancillary Procedure Ophthalmology 03/25/2022 Ancillary Procedure Ophthalmology Chas Shin M.D. [address] [place] [address] [phone] 03/26/2022 Ancillary Procedure Ophthalmology Rebeca Valle P.A.-C., M.S. [address] [place] [address] [phone] 03/26/2022 Comprehensive Visit Ophthalmology Chas Shin M.D. [address] [place] [phone] 03/29/2022 Comprehensive Visit Endocrinology Farzana Allen M.D. [address] [place] [phone] 04/04/2022 Appointment Radiology Christina Tai P.A.-C., M.S. [address] [place] [phone] 04/04/2022 Office Visit Oncology Vini Maki M.D., Ph.D. [address] [place] [phone] 04/04/2022 Office Visit Neurological Surgery Charles Ivey M.D., Ph.D. [address] [place] [phone] 05/03/2022 Comprehensive Visit Clinical Genomics Sanya Mehta M.D. [address] [place] [address] [phone] 05/06/2022 Clinical Communication Admitting/Central Scheduling 05/09/2022 Office Visit Oncology Farzana Allen M.D. [address] [place] [phone] documented as of this encounter Visit Diagnoses Not on filedocumented in this encounter
--- OUTSIDE RECORDS SUMMARY | 2022-03-12 14:33 | XMS_ITS | Encounter Summary ---
:1970 Author Organization [facility] Address [address] [place] [address] Care Team Providers Name Role Phone Unavailable Primary Care Provider Unavailable Encounter Details Date Type Department Care Team Description 01/30/2022 Orders Only Pharmacy Prior Auth Kp Ny [phone] Social History Tobacco Use Types Packs/Day Years [...] or relatives? How often do you attend yarsani or More than 4 times per year 01/07/2022 muslim services? Do you belong to any clubs or No 01/07/2022 organizations such as yarsani groups, unions, fraternal or athletic groups, or [...] place to sleep or slept in a care home (including now)? Education Answer Date Recorded What is the highest level of school Master's degree (e.g., M Domingo, MS, 01/07/2022 you have completed or the highest Maulik, MEd, JAVA PERFORMANCE ENGINEER, 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 Sex Assigned at Date Recorded Female 01/07/2022 11:11 AM CDT documented as of this encounter Plan of Treatment Upcoming Encounters Date Type Specialty Care Team Description 03/12/2022 Appointment Radiation Oncology Stephanie Gleason M.D. [address] [place] [phone] 03/12/2022 Appointment Radiation Oncology Stephanie Gleason M.D. [address] [place] [phone] 03/13/2022 Appointment Radiation Oncology Stephanie Gleason M.D. [address] [place] [phone] 03/14/2022 Appointment Radiation Oncology Stephanie Gleason M.D. [address] [place] [phone] 03/25/2022 Ancillary Procedure Ophthalmology Chas Shin M.D. [address] [place] [address] [phone] 03/25/2022 Ancillary Procedure Ophthalmology 03/25/2022 Ancillary Procedure Ophthalmology Chas Shin M.D. [address] [place] [phone] 03/26/2022 Ancillary Procedure Ophthalmology Rebeca Valle P.A.-C., M.S. [address] [place] [address] [phone] 03/26/2022 Comprehensive Visit Ophthalmology Chas Shin M.D. [address] [place] [phone] 03/29/2022 Comprehensive Visit Endocrinology Farzana Allen M.D. [address] [place] [phone] 04/04/2022 Appointment Radiology Christina Tai P.A.-C., M.S. [address] [place] [phone] 04/04/2022 Office Visit Oncology Vini Maki M.D., Ph.D. [address] [place] [phone] 04/04/2022 Office Visit Neurological Surgery Charles Ivey M.D., Ph.D. [address] [place] [phone] 05/03/2022 Comprehensive Visit Clinical Genomics Sanya Mehta M.D. [address] [place] [phone] 05/06/2022 Clinical Communication Admitting/Central Scheduling 05/09/2022 Office Visit Oncology Farzana Allen M.D. [address] [place] [phone] documented as of this encounter Visit Diagnoses Not on filedocumented in this encounter
--- OUTSIDE RECORDS SUMMARY | 2022-03-12 14:33 | XMS_ITS | Encounter Summary ---
:1970 Author Organization [facility] Address [address] [place] [address] Care Team Providers Name Role Phone Unavailable Primary Care Provider Unavailable Encounter Details Date Type Department Care Team Description 01/28/2022 Orders Only Department of Burak, Cliff Ojeda, Malignant N eoplasm Of Radiation Oncology in M.Pillo., M.S. Brain (HCC) (Primary [place], [facility] a 200 [facility] D[facility]) [address] [place] [phone] Social History Tobacco Use Types Packs/Day Years [...] or relatives? How often do you attend voodoo or More than 4 times per year 01/07/2022 buddhist services? Do you belong to any clubs or No 01/07/2022 organizations such as voodoo groups, unions, fraternal or athletic groups, or [...] have completed or the highest Maulik, MEd, CURTAIN FELLER BLINDSTITCH, 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 Sex Assigned at Date Recorded Female 01/07/2022 11:11 AM CDT documented as of this encounter Plan of Treatment Upcoming Encounters Date Type Specialty Care Team Description 03/12/2022 Appointment Radiation Oncology Stephanie Gleason M.D. [address] [place] [address] [phone] 03/12/2022 Appointment Radiation Oncology Stephanie Gleason M.D. [address] [place] [address] [phone] 03/13/2022 Appointment Radiation Oncology Stephanie Gleason M.D. [address] [place] [address] [phone] 03/14/2022 Appointment Radiation Oncology Stephanie Gleason M.D. [address] [place] [address] [phone] 03/25/2022 Ancillary Procedure Ophthalmology Chas Shin M.D. [address] [place] [phone] 03/25/2022 Ancillary Procedure Ophthalmology 03/25/2022 Ancillary Procedure Ophthalmology Chas Shin M.D. [address] [place] [phone] 03/26/2022 Ancillary Procedure Ophthalmology Rebeca Valle P.A.-C., M.S. [address] [place] [address] [phone] 03/26/2022 Comprehensive Visit Ophthalmology Chas Shin M.D. [address] [place] [phone] 03/29/2022 Comprehensive Visit Endocrinology Farzana Allen M.D. [address] [place] [phone] 04/04/2022 Appointment Radiology Christina Tai P.A.-C., M.S. [address] [place] [address] [phone] 04/04/2022 Office Visit Oncology Vini Maki M.D., Ph.D. [address] [place] [phone] 04/04/2022 Office Visit Neurological Surgery Charles Ivey M.D., Ph.D. [address] [place] [phone] 05/03/2022 Comprehensive Visit Clinical Genomics Sanya Mehta M.D. [address] [place] [phone] 05/06/2022 Clinical Communication Admitting/Central Scheduling 05/09/2022 Office Visit Oncology Farzana Allen M.D. [address] [place] [phone] documented as of this encounter Results Interpretation of Outside MR [...] 8 mm in thickness. Interval decrease in [id number] midli ne shift with improved patency of [...] 8 mm in thickness. Interval decrease in [id number]-[id number] midli ne shift with improved patency of [...] Neoplasm Of Brain (HCC) - Prim uyen Malignant Neoplasm Of Brain (HCC) documented in this encounter
--- OUTSIDE RECORDS SUMMARY | 2022-03-12 14:33 | XMS_ITS | Encounter Summary ---
:1970 Author Organization [facility] Address [address] [place] [address] Care Team Providers Name Role Phone Unavailable Primary Care Provider Unavailable Encounter Details Date Type Department Care Team Description 01/29/2022 Clinical Communication Department of Rebeca Valle , Oncology in P.A.-C., M.S. [place], [place] [address] [place] [address] 200 [place] [phone] Social History Tobacco Use Types Packs/Day Years [...] have completed or the highest Maulik, MEd, INVENTORY TRANSCRIBER, 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 Sex Assigned at Date Recorded Female 01/07/2022 11:11 AM CDT documented as of this encounter Miscellaneous Notes Telephone Encounter - Angeles Gates - 01/29/2022 4:24 PM CDT Date/Time Signed: 01/29/2022 15:54 E-Prescribing Status: Receipt confirmed by pharmacy (01/29/2022 ??4:15 PM CDT) Prior authorization: Approved Called [facility] and ask them to expedite the Temozolomide as pt starts treatment . They said they will call us back if the prescription needs to be redirected. documented in this encounter Plan of Treatment Upcoming Encounters Date Type Specialty Care Team Description 03/12/2022 Appointment Radiation Oncology Stephanie Gleason M.D. [address] [place] [phone] 03/12/2022 Appointment Radiation Oncology Stephanie Gleason M.D. [address] [place] [address] [phone] 03/13/2022 Appointment Radiation Oncology Stephanie Gleason M.D. [address] [place] [address] [phone] 03/14/2022 Appointment Radiation Oncology Stephanie Gleason M.D. [address] [place] [address] [phone] 03/25/2022 Ancillary Procedure Ophthalmology Chas Shin M.D. [address] [place] [address] [phone] 03/25/2022 Ancillary Procedure Ophthalmology 03/25/2022 Ancillary Procedure Ophthalmology Chas Shin M.D. [address] [place] [phone] 03/26/2022 Ancillary Procedure Ophthalmology Rebeca Valle P.A.-Rusty., M.S. [address] [place] [phone] 03/26/2022 Comprehensive Visit Ophthalmology Chas Shin M.D. [address] [place] [address] [phone] 03/29/2022 Comprehensive Visit Endocrinology Farzana Allen M.D. [address] [place] [address] [phone] 04/04/2022 Appointment Radiology Christina Tai P.A.-C., M.S. [address] [place] [address] [phone] 04/04/2022 Office Visit Oncology Vini Maki M.D., Ph.D. [address] [place] [address] [phone] 04/04/2022 Office Visit Neurological Surgery Charles Ivey M.D., Ph.D. [address] [place] [phone] 05/03/2022 Comprehensive Visit Clinical Genomics Sanya Mehta M.D. [address] [place] [phone] 05/06/2022 Clinical Communication Admitting/Central Scheduling 05/09/2022 Office Visit Oncology Farzana Allen M.D. [address] [place] [address] [phone] documented as of this encounter Visit Diagnoses Not on filedocumented in this encounter
--- OUTSIDE RECORDS SUMMARY | 2022-03-12 14:33 | XMS_ITS | Encounter Summary ---
:1970 Author Organization [facility] Address [address] [place] [address] Care Team Providers Name Role Phone Unavailable Primary Care Provider Unavailable Encounter Details Date Type Department Care Team Description 01/29/2022 Orders Only Department of Rebeca Valle Malignan t Neoplasm Of Oncology in P.A.-C., M.S. Brain (HCC) (Primary [place], [place] 200 [facility]) [address] [place] [phone] Social History Tobacco Use Types Packs/Day Years [...] of school Master's degree (e.g., [address], , 01/07/2022 you have completed or the highest Maulik, MEd, PARK KEEPER, 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 Sex Assigned at Date Recorded Female 01/07/2022 11:11 AM CDT documented as of this encounter Plan of Treatment Upcoming Encounters Date Type Specialty Care Team Description 03/12/2022 Appointment Radiation Oncology Stephanie Gleason M.D. [address] [place] [address] [phone] 03/12/2022 Appointment Radiation Oncology Stephanie Gleason M.D. [address] [place] [address] [phone] 03/13/2022 Appointment Radiation Oncology Stephanie Gleason M.D. [address] [place] [address] [phone] 03/14/2022 Appointment Radiation Oncology Stephanie Gleason M.D. [address] [place] [address] [phone] 03/25/2022 Ancillary Procedure Ophthalmology Chas Shin M.D. [address] [place] [phone] 03/25/2022 Ancillary Procedure Ophthalmology 03/25/2022 Ancillary Procedure Ophthalmology Chas Shin M.D. [address] [place] [phone] 03/26/2022 Ancillary Procedure Ophthalmology Rebeca Valle P.A.-C., M.S. [address] [place] [address] [phone] 03/26/2022 Comprehensive Visit Ophthalmology Chas Shin M.D. [address] [place] [phone] 03/29/2022 Comprehensive Visit Endocrinology Farzana Allen M.D. [address] [place] [phone] 04/04/2022 Appointment Radiology Christina Tai P.A.-C., M.S. [address] [place] [address] [phone] 04/04/2022 Office Visit Oncology Vini Maki M.D., Ph.D. [address] [place] [phone] 04/04/2022 Office Visit Neurological Surgery Charles Ivey M.D., Ph.D. [address] [place] [phone] 05/03/2022 Comprehensive Visit Clinical Genomics Sanya Mehta M.D. [address] [place] [phone] 05/06/2022 Clinical Communication Admitting/Central Scheduling 05/09/2022 Office Visit Oncology Farzana Allen M.D. 200 [place] [phone] documented as of this encounter Visit Diagnoses Diagnosis Malignant Neoplasm Of Brain (HCC) - Prim uyen documented in this encounter
--- OUTSIDE RECORDS SUMMARY | 2022-03-12 14:33 | XMS_ITS | Encounter Summary ---
:1970 Author Organization [facility] Address [address] [place] [id number] Care Team Providers Name Role Phone Unavailable Primary Care Provider Unavailable Reason for Referral Outpatient (Routine) - Authorized Specialty Diagnoses / Procedures Referred By Contact Refer red To Contact Diagnoses Tumor Brain (HCC) Aphasia Benjamín Warner M.D. [address] [place] [address] Referral ID Status Reason Start Expiration Visits Visits Date Date Requested Authorized [id number] Authorized Patient 01/22/2022 01/22/2023 1 1 Preference hysical Therapy (Routine) - Authorized Specialty Diagnoses / Procedures Referred By Contact Refer red To Contact Diagnoses Tumor Brain (HCC) Abnormal Gait Non Orthopedic Lack Of Coordination Benjamín Warner M.D. [address] [place] [address] Referral ID Status Reason Start Expiration Visits Visits Date Date Requested Authorized [id number] Authorized Patient 01/22/2022 01/22/2023 1 1 Preference Outpatient (Routine) - Authorized Specialty Diagnoses / Procedures Referred By Contact Refer red To Contact Diagnoses Tumor Brain (HCC) Abnormal Gait Non Orthopedic Lack Of Coordination Benjamín Warner M.D. [address] [place] [address] Referral ID Status Reason Start Expiration Visits Visits Date Date Requested Authorized [id number] Authorized Patient 01/22/2022 01/22/2023 1 1 Preference Reason for Visit Auth/Cert Specialty Diagnoses / Procedures Referred By Contact Refer red To Contact Diagnoses Neoplasm of unspecified behavior of brain (HCC) Procedures ADMIT TO INPATIENT REHAB Referral ID Status Reason Start Date Expiration Date Visits Requ ested Visits Authorized [id number] 1 1 Encounter Details Date Type Department Care Team Description 01/17/2022 - Hospital Encounter [facility] Yolette Gleason M.D. [address] [place] [phone] Tumor Brain (HCC) (Primary Dx); [facility] [address] [place] [phone] [facility]phasia; [facility] [address] [place] [phone] Deficit Cognitive Communication; [facility], Abnormal Gait Non Orthopedic; Fourth Floor Decline Functional Status; [address] [place] [address] Unsteadiness Non Orthopedic; [place], [place] Lack Of Coordi [employer]; [phone] Decline Cognitive [phone] Social History Tobacco Use Types Packs/Day Years [...] More than 4 times per year 01/07/2022 denominational services? Do you belong to any clubs [...] have completed or the highest Maulik, MEd, SULFONATOR OPERATOR, 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 Sex Assigned at Date Recorded Female 01/07/2022 11:11 AM CDT documented as of this encounter Last Filed Vital Signs Vital Sign Reading Time Taken Comments Blood Pressure 134/89 01/25/2022 12:10 PM CDT Pulse 77 01/25/2022 12:10 PM CDT Temperature 36.4 ??C (97.5 ??F) 01/25/2022 12:10 PM CDT Respiratory Rate 15 01/25/2022 12:10 PM CDT Oxygen Saturation 98% 01/25/2022 12:10 PM CDT Inhaled Oxygen Concentration - - Weight 92.3 kg (203 lb 7.8 oz) 01/24/2022 9:35 AM CDT Height 169 cm (5' 6.54) 01/24/2022 9:36 AM CDT Body Mass Index 32.32 01/24/2022 9:35 AM CDT documented in this encounter Discharge Summaries Benjamín Warner M.D. - 01/25/2022 7:07 AM CDT REHABILITATION DISCHARGE SUMMARY BRIEF [facility] Hospital: [facility] Discharge Provider: Michael De Los Santos M.D. Primary Team: [facility] No primary care provider on file. Primary Care Provider Phone Number: None Primary Care Provider Fax Number: None Other Providers: None Admission Date: 01/17/2022 Discharge Date: 01/25/2022 PRINCIPAL DIAGNOSIS Tumor Brain (HCC) SECONDARY DISCHARGE DIAGNOSES Principal Problem: Tumor Brain (HCC) Active Problems: Malignant Neoplasm Of Brain (HCC) Resolved Problems: * No resolved hospital problems. * DISCHARGE DISPOSITION Home or Self Care [1] ACTIVE ISSUES REQUIRING FOLLOW UP PATIENT RECOMMENDATIONS: 1) You should follow-up with your primary care provider within one to two weeks of dismissal to discuss the events of this hospitalization and to establish a exterminator termite management plan. All medication changes should be reviewed. You and your primary care provider should determine ongoing treatment as medication refills and additional therapy prescriptions will be at the discretion of your primary careprovider (we will not provide medication refills or therapy renewals). Please take a copy of this dismissal summary with you to your primary care physician follow up appointment. 2) Please see AVS for a list of scheduled follow-up appointments and medication instructions. 3) It is unsafe for you to drive at this point. You will need to follow up with your Primary Care provider to determine when it will be safe for you to drive again. 4) You are advised not to return to work at this point. You will need to follow up with your PrimaryCare Provider to determine when it will be appropriate for you to return to work again. 5) continue use of senna and miralax as needed for regular bowel movements 6) Pain: Use tylenol as needed for pain. Continue use of 300mg gabapentin at night for sleep and headaches. PROVIDER RECOMMENDATIONS: -the patient has been on a dexamethasone taper that is scheduled to end on 01/26. Overall she has been tolerating this without any difficulties besides minor headache, but gabapentin 300 mg q.h.s. wasadded on 01/23 and this appeared to be helpful for her nighttime headaches and sleep. His family discontinued if she is no longer experiencing headaches - she should remain on Keppra until cleared by Neurosurgery outpatient - please ensure no barriers to follow ups with her Radiation Oncology, Oncology and Neurosurgery teams - Earlier in the hospital course patient had hyponatremia, but has been stable since. Recommend checking BMP on follow up OUTPATIENT FOLLOW UP Scheduled Appointments 01/28/2022 10:00 AM Stephanie Gleason M.D. Radiation Oncology 01/28/2022 11:[address] [facility] [place] Radiation Oncology 01/31/2022 8:20 AM Rebeca Valle P.A.-C., M.S. Oncology 01/31/2022 2:15 PM Sejal Resendiz M.S., [facility] Clinical Genomics 02/07/2022 1:20 PM Farzana Allen M.D. Oncology 04/04/2022 8:20 AM MR ROCN LO MR 69 3T Radiology 04/04/2022 1:00 PM Charles Ivey M.D., Ph.D. Neurological Surgery For appointment details refer to your Patient Appointment Guide. TEST RESULTS PENDING AT DISCHARGE Pending Labs None DETAILS OF HOSPITAL STAY REASON FOR ADMISSION HOSPITAL COURSE PRE-REHABILITATION COURSE: Per review of the electronic medical record and in discussion with the patient: Ms. Cedillo is a pleasant 51-year-old right-handed dominant female with past medical history of essential hypertension and class I obesity. Up until about a month ago, patient was in normal state of health until she began experiencing episodes of word finding difficulties. Upon outside ED admission, she had forehead bruising with suspected seizures. Subsequent MRI revealed hyperintense mass on T2 imaging that involved the left cerebellum, temporal lobe, parietal lobe, thalamus, and hippocampus. 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 Her care was subsequently transferred here to [facility] where she then underwent a left temporoparietal craniotomy andresection of left temporoparietal region mass. Postoperative there were some concerns regarding subclinical seizures the patient was severely aphasic, with severe headaches and altered mental status, but this significantly improved by postop day 1. PMR was consulted and evaluated the patient while on the acute hospital floor. Patient was requiringsupervision assistance with transfers, ambulation of 75 meters with contact guard assistance, minimal assistance with lower body dressing and grooming. Patient was previously independent of all ADLs without requiring any adaptive equipment. Patient's goal is to dismiss home with independent ambulation with gait aid as needed and ADLs in 10 days. They live in a single-story home with no stairs to enter and 10 stairs with a single railing inside to getto the main floor; bedroom and bathroom are on the main floor. Since this hospitalization, her mother has moved into her house to assist her daughter. 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 She is and has a boyfriend who lives in a separate home. Currently, Mia is resting comfortably in bed during our conversation today. She acted as main historian, but often had difficulties reciting her history and had frequent tangential thoughts. Her mother entered the room during our exam and is a retired family practice physician and will be staying ather daughter???s house. She states her right-sided weakness is longstanding but that it has been significantly worse since surgery. Additionally, she reports a history of right leg and back pain that her mom later described as a herniated disc. She denies any medication use prior to this hospitalization other than a BP med many years ago. She admits to headache, waxing and waning fatigue, double vision, right arm and leg weakness (leg>arm), and aphasia. She denies any hearing loss, chest pain, fecal incontinence, urinary incontinence REHABILITATION COURSE: The patient was admitted to inpatient rehab on 01/17/2022. The patient underwent comprehensive interdisciplinary inpatient rehabilitation with physical therapy, occupational therapy, speech therapy, rehab nursing, medical social welfare research worker, and wash plant operator. The patient made good progress and met criteriato be dismissed from inpatient rehabilitation. Please see below for medical care that was provided during the patient's rehabilitation stay. #Astrocytoma, grade 3 s/p left temporoparietal stereotactic craniotomy and tumor resection #Right Hemiparesis, resolved #Expressive aphasia #Impaired cognition #Altered mental status #Impairments (as noted above), limitations in activities, mobility and self-care skills, with restrictions to participation in designated roles -Admitted for comprehensive inpatient rehabilitation. Continue with PT, OT and SPONSORSHIP COORDINATOR to achieve goals as stated above -Pain control: Continue acetaminophen 1,000 mg PO q6h PRN. -Seizure ppx: Continue Keppra 1,000 mg PO BID. Will remain on this until ANDRESSA follow up. -Continued dexamethasone taper. Scheduled to end 01/26 #GERD -Continued pantoprazole 40 mg DISCHARGE PHYSICAL EXAM: General: Awake, alert, and oriented, no apparent distress, pleasant, and cooperative. Psych: Mood is euthymic, affect is congruent. Ear, Nose, Throat: Normocephalic, atraumatic, moist membranes, anicteric sclerae Lungs: Nonlabored breathing. Heart: No clubbing or cyanosis. Skin: No increased erythema, warmth, rashes, or concerning skin lesions. Cranial Nerves: Extra ocular muscles intact. Possible right sided visual field deficit to lateral field. No dysconjugate gaze. No facial droop. Tongue protrudes midline. Palate elevates symmetrically. Motor/Speech: No dysarthria appreciated. Normal prosody, phonation, resonation. Language: Expressive aphasia. Frequent paraphasic errors for which she was occasionally aware of. She had tangential thoughts. Muscle Strength: (scoring scale: 0=normal to -4=plegic; right/left) Slight right lower extremity drift present -Upper limb: deltoid 0/0; biceps 0/0; triceps 0/0; wrist extensors 0/0; finger extensors 0/0; wrist flexors 0/0; finger flexors 0/0; interossei 0/0. -Lower limb: iliopsoas 0/0, quadriceps 0/0, hamstrings 0/0, anterior tibial 0/0, EHL 0/0, gastroc-soleus 0/0. Tone: Normal tone throughout upper and lower limbs. No ankle clonus bilaterally. Muscle Reflexes (scale: -4=absent, 0=normal, +4=sustained clonus; right/left): Biceps 0/0, Triceps 0/0, Quadriceps 0/0, Gastroc-soleus 0/0. Ant Response: (right/left) absent/absent. Plantar Response: (right/left) flexor/flexor. Coordination: Normal upper and lower limb [place]. Normal [id number]. Normal eclb-[id number]. Sensation: Normal light touch sensation throughout upper and lower limbs. No extinction to double simultaneous stimulation in upper and lower limbs. CONSULTS ORDERED THIS ADMISSION IP CONSULT TO CARE MANAGEMENT IP CONSULT TO RECREATIONAL THERAPY CONDITION AT DISCHARGE stable Discharge instructions were provided to the patient and caregiver(s). documented in this encounter Discharge Instructions Patient Clover Quinones M.A., CCC-SPONSORSHIP COORDINATOR - 01/22/2022 5:06 PM CDT SPEECH PATHOLOGY DISCHARGE SUMMARY DIAGNOSIS: Cognitive communication deficit and aphasia identified following tumor resection. SPEECH PATHOLOGY TREATMENT COURSE: Ms. Cedillo was referred to Speech Pathology for difficulties related to both language and cognitionfollowing tumor resection. Diagnoses included an aphasia and cognitive communication deficit. Short term goals addressed targeted the following: Improving word finding in conversation, improving ability to follow 2 and multistep directions, improving recall of new information learning and improvingability to use strategies both for language and cognition. At time of discharge, Ms. Cedillo does require moderate and minimal cueing for language and cognition pending distractions, familiarity with topic and demand placed upon her to use both language/cognitive skills. External memory aides such as a marketing planner were discussed but need to be further addressed in the outpatient setting. A more comprehensive cognitive test such as the RBANS or an equivalent is suggested. From a language perspective,Ms. Cedillo does best when she allows extra time to communicate, keeps her spoken message simple anddoes not switch topics abruptly. Comprehension is facilitated by repetition, clarification and the communication partner providing cueing during more complex interactions/topics. The Cognitive Linguistic Quick Test (CLQT) was also completed in entirety during this rehab stay to assess cognitive functioning in the areas of attention, memory, executive function, visuospatial skills, and language. Results are listed in the table below. Domain Score Severity Attention 194 WNL Memory 151 Mild imp Executive Function 25 WNL Language 28 Mild imp Visuospatial Skills 94 WNL Clock Drawing 8 Moderate imp Composite 3 Mild imp RECOMMENDATIONS: The patient and her communication partners should use the strategies listed below to enhance communication and/or cognition. Cognitive strategies include: reduce distractions, take brain breaks, complete one task at a time, use self-talk, use a marketing planner/calendar, take notes, and ask for repetition as needed Ms. Cedillo will benefit from further instruction on how to use her marketing planner and language/cognitive efficiency strategies in a way that matches her current level of activity/routine after discharge from hospital. Recommend Speech Pathology to evaluate and treat. Frequency and duration to be determined by the evaluating clinician. Discharge recommendations were provided on 01/22/2022 by Clover Yoder M.A., [facility]-SPONSORSHIP COORDINATOR Contact Information: [facility], Department of Neurology, . Discharge Instr - Muriel Liriano M.S., O.T. - 01/24/2022 6:49 AM CDT Occupational Therapy Discharge Summary MOBILITY RESTRICTIONS/PRECAUTIONS: Other Precautions: Fall risk. Decreased safety awareness. R visual field cut. R inattention. Communication deficit (aphasia). CURRENT FUNCTIONAL STATUS: Mia is currently performing activities of daily living with modified independence for increased time during sequencing steps of task. She will require ongoing supervision assistance for instrumental activities of daily living upon discharge home for meal preparation, medication management, financial operations clerk, child rearing, and household management. She benefits from cognitive strategies such as self-talk, writing things down, increased time, and limiting environmental distractions. Additionally,she benefits from one-step commands when sequencing tasks as novel tasks are more challenging for her. She requires ongoing cuing for implementing visual scanning techniques to navigate environment dueto her right-sided visual field cut. The rehabilitation team is recommending no driving until follow-up with outpatient therapies. RECOMMENDATIONS: Recommend occupational therapy evaluate and treat. Frequency and duration to be determined by the evaluating therapist RHB RST FOLLOW UP LOCATIONS: Outpatient therapy at a clinic in patient's local area. Discharge information provided on 01/24/2022 by KITA Mcgee 01/24/2022 I have reviewed & agree with analysis and recommendations; Muriel Cifuentes M.S., O.T. Contact information: [facility], [address], Vero Tse CRRN - 01/25/2022 9:01 AM CDT Outpatient Therapy: [facility] [place] [address] [facility] Follow Up: February 06, 2022 [place] [address] AttachmentsThe following attachments cannot be sent through Care Everywhere. Gabapentin (By mouth) (Malagasy)documented in this encounter Medications at Time of [...] Take 1 tablet by 0 mouth daily. dexAMETHasone (DECADRON) Take 1 tablet (1 mg 7 tablet 0 01/26/2022 1 mg tablet total) by mouth every 6 (six) hours for 2 days. Last dose will be at 9pm on 01/26/2022 gabapentin (NEURONTIN) Take 1 capsule (300 14 capsule 0 09/202102/06/2022 300 mg capsule mg total) by mouth at bedtime. 25/iron Take 1 tablet by 0 fum/folic/dha mouth daily. (-1 ORAL) TURMERIC ORAL Take 1 capsule by 0 07/0 02/2022 mouth daily. documented as of this encounter Progress Notes Clarisa Rodriguez - 01/25/2022 12:12 PM CDT Occupational Therapy Rehabilitation [facility] Inpatient Progress Note SUBJECTIVE Patient's Name: Mia Juana Cedillo Reason for Referral: OT Eval and Treat; IRF Brain Unit Medical Diagnosis: 1. Tumor Brain (HCC) 2. Aphasia 3. Deficit Cognitive Communication 4. Abnormal Gait Non Orthopedic 5. Decline Functional Status 6. Unsteadiness Non Orthopedic 7. Lack Of Coordination 8. 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 [place] with ADL and IADL tasks. To initiate asking questions to medical team and to family members. Patient Comments: Patient reported she believes her visual scanning has improved but that when her brain becomes fatigued, it is harder to focus her visual attention to tasks. Precautions Other Precautions: Fall risk. Decreased safety awareness. R visual field cut. R inattention. Communication deficit (aphasia). Fall Risk (65 and older) Fall in the last 12 months: No Are you fearful of falling?: Yes OBJECTIVE Patient met seated in bedside chair upon arrival. She dressed prior to therapy and appeared motivated to participate in therapy session. Pain: No pain reported this date. IADL's Meal Preparation Meal Prep Activity: (Grocery shopping task) Meal Preparation Comments: Patient engaged in grocery shopping activity to address memory and problem-solving. Instruction provided prior to activity that the goal was for patient to generate cognitivestrategies for successful completion of the task. Without implementation of cognitive strategies, patient was able to recall 2/6 grocery items after items were read aloud. When provided with general cue of, what could you do to make this easier? patient generated strategy of writing it down. She successfully recalled 6/6 items using this strategy. When locating items on shelf, patient was educated on using cognitive strategy on reducing visual distractions by removing items that were not needed. Patient was noted to write down instructions of identifying each quinteros of item from list and adding them up to obtain total for grocery purchase. She attempted to do the math by hand and demonstrated difficulty. Cognitive strategy was offered to reduce time required to complete task. After general cue provided, patient required direct verbal cue to use mobile phone calculator to sum the cost of items. When reflecting on activity, patient reported she liked to use her [employer] grocery list prior to hospitalization. Education provided to use [employer] list and check off items once obtained from store to improve time efficiency and memory with items obtained during grocery shopping. Communication Management Communication Management Activity: Phone management Communication Management Comments: Addressed phone managment as it relates to setting reminders/alarms on patient's mobile phone as cognitive strategy to assist with memory. Patient prefers to use [employer]. Educated on the option of using a task reminder so that patient has to physically check the item off, ensuring the task gets completed. Patient demonstrated ability to set-up task reminder and was able to successfully navigate during demonstration. At the end of today's therapy session patient was left seated in bedside chair with an appropriate call light within reach. Patient's needs and questions addressed during today's session. Contact monitoring: PPE used during therapy: Therapist was wearing the following PPE throughout entire session: surgicalmask and eye protection Patient was wearing a mask during therapy session when outside of hospital room. Additional Staff Present During Session: GINA Levy Assessment Mia's short-term memory deficits and impaired executive functioning skills limit her ability to perform instrumental activities of daily living such as grocery shopping independently this date. Duringgrocery shopping task, she implemented cognitive strategy of writing things down with general verbalcue. She has demonstrated the ability to advocate for herself when communicating during functional activities by stating, can you repeat that? or can I write this down? She will continue to requireongoing assistance with instrumental activities of daily living upon discharge for cuing to implement cognitive strategies and visual scanning techniques due to right-sided visual field cut. She has improved in her ability to navigate the hallways from hospital room to OT gym without any verbal prompting required this date. She benefits from external aids and reminders such as checklists. Discussed potential use of medication management phone application and/or daily pill organizer to ensure medications are taken on time. Education provided on limiting auditory and visual distractions at home when completing instrumental activities of daily living and novel tasks. Outpatient OT goals remain. Barriers to Discharge Home: Current functional status, Safety concerns, Fall risk Comorbid Conditions: Cancer Personal Factors: Visual impairment, Safety awareness, Communication deficit, Balance impairment Discharge Therapy Needs - OT: Ongoing skilled occupational therapy Level of Care Needed - OT: Assistance with toilet/shower transfers, Assistance with medication set up/administration, Assistance with showering/bathing, Assistance with dressing, Assistance with meal preparation, Assistance with financial operations clerk, Assistance with transportation, Assistance with hous ekeeping, Assistance with shopping, Cognitive assistance needed Recommended Adaptive Equipment - OT: Other (Comment) (Ongoing assessment) Functional Goals and Timeframes: OT Goal #1: By next ITC, patient will verbalize understanding of new medications and self-identify cognitive strategy to recall and organize medications at home. OT Goal #1 Status: Progressing (Discussed using medication management application at home to ensure taking medications on time) OT Goal #2: By next ITC, patient will generate 2-3 cognitive strategies to improve performance and safety during instrumental activities of daily living, including finances, appointment scheduling, laundry, and meal planning. OT Goal #2 Status: Achieved (Goal achieved.) OT Goal #3: By discharge, patient will complete multiple errands task with supervision assistance without verbal cuing to implement visual scanning techniques when navigating environment. OT Goal #3 Status: Progressing (Patient required no verbal cues to scan environment when transitioning from hospital room to OT gym.) OT Goal #4: By discharge, patient will perform dressing routine with modified independence without verbal cuing for sequencing steps of task. OT Goal #4 Status: Achieved (Goal achieved.) Progress: Patient has achieved 2/4 inpatient rehabilitation goals and is progressing towards unmet goals. Outpatient OT goals remain. Plan Patient agrees with the plan of care and goals. Treatment Plan: OT Frequency: 6 times per week OT Amount: 2 visits per day OT Inpatient Duration : Until goals are met or hospital discharge Plan: Discontinue OT Treatment interventions may include: Treatment Interventions: Therapeutic functional activity, Neuromuscular re- education, Self-care/homemanagement, Cognitive skills training, Therapeutic exercise, Therapeutic modalities as needed, Orthosis [id number], Manual therapy Time Spent with Patient Therapeutic Interventions Home Management Training (min): 50 min Time Tracking Total Timed Units (min): 50 min Total Treatment Time (min): 50 min OT Individual: 50 Minutes KITA Mcgee Associated attestation - Muriel Cifuentes M.S., O.T. - 01/28/2022 7:11 AM CDT This therapist has reviewed all documentation and supervised today???s session. The therapist agreeswith the plan developed in collaboration with the patient. Clover Yoder M.A., [facility]-SPONSORSHIP COORDINATOR - 01/25/2022 10:30 AM CDT Speech Language Pathology Communication/Cognitive Treatment- Inpatient Rehabilitation Unit Session Type: Treatment Length of AM Session: 30 minutes SUBJECTIVE Mia was seen independently for therapy this morning, day of discharge. Pain: No pain reported. General Arousal/Alertness: Appropriate responses to stimuli Behavior: Alert, Cooperative, Pleasant mood OBJECTIVE Objective Session Data Cognition Overall Cognitive Status: Impaired Arousal/Alertness: Appropriate responses to stimuli Attention: Impaired Sustained: Mild Alternating: Moderate Memory: (Writing down times of therapy in personal marketing planner) Orientation: Oriented X4 Problem Solving: Impaired (Overcomplicates and difficulty shifting attention) Impulsive: Mildly impulsive Executive Functioning: Impaired Planning: Moderate Organization: Moderate Assessment Mia was present for therapy addressing cognition and language needs. Mia and clinician reviewed goals, progress to date and the importance of using cognitive and language strategies as she continues her recovery and treatment for brain. At time of discharge, Mia needs moderate cueing for both language and cognitive tasks. Mia described the [employer] pictures with adequate details; however lacked specificity. She continued to have difficulty with inferencing and reasoning even when provided cues. During an association task, Mia has difficulty stating the obvious response in 4/6 trials. Tone of voice when responding to tasks or even in conversation tended to be with rising inflection as if she was unsure and notconfident of her answer. When writing a brief mock thank you note, Mia was able to generate 3 sentences including a greeting and closing. Moderate cueing provided. Discharge summary is complete and Mia will leave today with her mother to begin treatment and outpatient therapies in her local community. It has been a pleasure to work with her. Contact Monitoring: Clinician was wearing the following PPE for the duration of today's session(s): surgical mask and eye protection Diagnosis: Impressions Consistent with a diagnosis of: Non-Aphasic Cognitive Communication Disorder, Aphasia Aphasia: Moderate Non-Aphasic Cognitive Communication Disorder: Moderate Goals: Cognition Short Term Goal 1 Cognition Short Term Goal 1: Mia will recall new information related to therapy, safety and routinewith strategy use in 80% of opportunities. Cognition Short Term Goal 1 Progress Toward Goal: Progress toward goal completion: continue on target Auditory Comprehension Short Term Goal 1 Auditory Comprehension Short Term Goal 1: Patient will follow two and multistep commands with extra time in 80% of opportunities. Auditory Comprehension Short Term Goal 1 Progress Toward Goal: Progress toward goal completion: continue on target Verbal Expression Short Term Goal 1 Verbal Expression Short Term Goal 1: Patient will answer basic questions related to therapy and routine with increased time with 100% accuracy. Verbal Expression Short Term Goal 1 Progress Toward Goal: Progress toward goal completion: continue on target Verbal Expression Short Term Goal 2 Verbal Expression Short Term Goal 2: Mia will be able to express more complex and abstract information as it relates to therapy, routine and conversation through strategy use in 80% of opportunities. Verbal Expression Short Term Goal 2 Progress Toward Goal: Progress toward goal completion: continue on target Plan Discharge Location: Unknown SPONSORSHIP COORDINATOR Ongoing Services: Ongoing formal Speech Pathology services Frequency of Treatment: 1-2x/5-6 days per week Duration of Treatment: duration of rehab stay Rehab Potential: Good Lexi Syed PBritt, D.P.T. - 01/25/2022 8:17 AM CDT Physical Therapy Rehabilitation [facility] Inpatient Treatment SUBJECTIVE Patient's Name: Mia Richardson Reason for Referral: PT Evaluate and treat - Brain IRF Medical Diagnosis: 1. Tumor Brain (HCC) 2. Aphasia 3. Deficit Cognitive Communication 4. Abnormal Gait Non Orthopedic 5. Decline Functional Status 6. Unsteadiness Non Orthopedic 7. Lack Of Coordination 8. 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 [place] with ADL and IADL tasks. Precautions Other Precautions: Fall risk. Decreased safety awareness. R visual field cut. R inattention. Communication deficit (aphasia). Fall Risk (65 and older) Fall in the last 12 months: No Are you fearful of falling?: Yes OBJECTIVE Pain: did not quantify Patient/Family Education: safe mobility post discharge Education Provided to: Mia Learner's Response: Requires continued education At the end of today's therapy session patient was left seated in bedside chair with an appropriate call light within reach. Patient's needs and questions addressed during today's session. Contact monitoring: PPE used during therapy: Therapist was wearing the following PPE throughout entire session: surgicalmask and eye protection Patient was wearing a mask during therapy session: yes Assessment Patient discharging today, initially declining therapeutic intervention, however then asking questions regarding post discharge recovery and affected neurophysiology. Provided education regarding anatomic regions effected and corresponding clinical presentation, and discussed areas for continued focus. Patient made excellent progress and met all mobility goals. At time of discharge, she was fully independent with all mobility domains without a device. Family education was provided to Mia and her mother Libby yesterday, all questions were answered. No durable medical equipment needs at time of discha rge, patient schedule with outpatient PT/OT/SPONSORSHIP COORDINATOR to address remaining deficits (high level balance, dual and multitasking). Barriers to Discharge Home: Current functional status, Safety concerns, Fall risk Comorbid Conditions: Cancer, Obesity Personal Factors: Visual impairment, Safety awareness, Communication deficit, Balance impairment Discharge Therapy Needs - PT: Ongoing skilled physical therapy Level of Care Needed - PT: Physical assistance needed, Cognitive assistance needed Functional Goals and Timeframes: PT Goal #1: Patient will demonstrate independence with bed mobility by discharge to allow for improved independence with functional mobility. PT Goal #1 Status: Achieved PT Goal #2: Patient will demonstrate independence with [id number] transfers by discharge to allow for improved safety with functional mobility. PT Goal #2 Status: Achieved PT Goal #3: Patient will demonstrate independence with ambulation and least restrictive device to allow for improved independence with functional mobility. PT Goal #3 Status: Achieved PT Goal #4: Patient will demonstrate ability to ascend/descend 10 stairs with single handrail independently to allow for safe discharge. PT Goal #4 Status: Achieved Progress: Progressing toward goals Plan Patient agrees with the plan of care and goals. Treatment Plan: PT Frequency: 6 times per week PT Amount: 2 visits per day PT Inpatient Duration : Until goals are met or hospital discharge Plan: Plan of care initiated PT Plan Comments: attention to right environment, path finding, high level balance Treatment interventions may include: Treatment/Interventions: Therapeutic exercise, Therapeutic functional activity, Neuromuscular re-education, Gait training Time Spent with Patient Therapeutic Interventions Therapeutic Activity (min): 25 min Time Tracking Total Timed Units (min): 25 min Total Treatment Time (min): 25 min PT Individual : 25 Minutes Lexi Syed P.T., D.P.TSanjuanita Benjamín May M.D. - 01/25/2022 7:07 AM CDT SUBJECTIVE Ms. Cedillo is 51 y.o. 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 The patient reports that she slept well overnight. She has been having minimal headaches over the last 24 hours. She reports that she is anxious for her MRI next week, as her mother has repeatedly told her that her acute worsening of symptoms prior to this hospital stay were a direct result of receiving this MRI. She states her mother told her this MRI likely scrambled some things around. I triedto provide some reassurance that this was unlikely, and it would be safe for her to get her MRI nextweek. She states that she has been sleeping much better after starting gabapentin, and will discuss continuing this with her outpatient providers. She had a BM yesterday. She is excited to discharge today Multidisciplinary discharge rounds: I participated in multidisciplinary bedside rounds today. Attendees included: patient, physician, bedside nurse, rental boats caretaker, physical therapist and occupational therapist. Medical updates were provided. Also discussed was progress toward patient centered goals, ongoing rehabilitation needs and dismissal planning. OBJECTIVE Temperature: [36.3 ??C-36.7 ??C] 36.7 ??C Resp Rate: [16] 16 Blood Pressure: (114-136)/(80-98) 128/92 SpO2: [97 %-100 %] 100 % Height: [169 cm] 169 cm Weight: [92.3 kg] 92.3 kg BMI (Calculated): [32.3 kg/m??] 32.3 kg/m?? Last Stool Occurrence: 1 (per patient) (01/24/22 1600 : Olga Najera, R.N.) Intake/Output Summary (Last 24 hours) at 01/25/2022 0707 Last data filed at 01/24/2022 1800 Gross per 24 hour Intake 2120 ml Output -- Net 2120 ml Bowel Incontinence: No (01/24/22 1600 : Olga Najera, R.N.) Unmeasured Urine Occurrence: 1 (01/25/22 0440 : Phil Koroma, R.N.) Urinary Incontinence: No (01/24/22 1600 : Olga Najera, R.N.Lissette Physical Exam: General: Well-appearing, in no acute distress HEENT: Mucous membranes moist Eyes: No scleral icterus, conjunctiva clear Heart: hemodynamically stable Lungs: breathing comfortably on room air Skin: Dry and intact, no acute lesions noted Neuro: Alert and oriented, appropriate mood and affect. Expressive aphasia with paraphrasic errors, but speaking in complete sentences. Diagnostics I reviewed the imaging studies and agree with the interpretation as recorded. I reviewed the pertinent laboratory data and diagnostic data. ASSESSMENT / PLAN In Summary, Ms. 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 ?? Plan for today (01/25/2022): - Discharge today - Medications sent to [facility] ?? 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 Continue with PT, OT and SPONSORSHIP COORDINATOR to achieve goals as stated above -Pain control: Continue acetaminophen 1,000 mg PO q6h PRN. -Seizure ppx: Continue Keppra 1,000 mg PO BID. Will remain on this until ANDRESSA follow up. -Continue dexamethasone taper. Scheduled to end 01/26 ?? #GERD -Continue pantoprazole 40 mg ?? FULL CODE as discussed with patient. Diet: Regular. Sutures/[place]: removed 01/24 DVT prophylaxis: Lovenox Bowel: Senna, MiraLAX and suppository as needed. Bladder: Currently voiding Disposition: discharging today Benjamín Warner MD PGY-2, PM&R Please contact the brain rehabilitation service pager [phone] with questions or concerns. Associated attestation - Michael De Los Santos M.D., Ph.D. - 01/25/2022 2:08 PM CDT I saw and evaluated the patient, participating in the hill portions of the service. I reviewed the resident/fellow???s note. I agree with the resident/fellow???s findings and plan. Ms. Cedillo is capable of participating in rehabilitation. She continues to progress towards functional independence in the area(s) of mobility, self-care, communication, and cognition and will benefitfrom ongoing intensive inpatient rehabilitation. I have met with the patient and participated in her in room team rounds. Ms. Cedillo was again cheerful and alert. She stated that her headache was minimal and that the ???new medicine?? (gabapentin) was very helpful. All disciplines noted improvement over her stay with us. More specifically, she has improved in her fine motor control, increased her motivation, and is improved cognitively with respect to path finding, processing speed, and ability to isolate the words she wishes to use. Dual tasking remains difficult. BP 134/89 (BP Location: Left arm;Upper, Patient Position: Sitting) Pulse 77 Temp 36.4 ??C (Oral) Resp 15 Ht 169 cm Wt 92.3 kg LMP 01/07/2022 (Approximate) SpO2 98% BMI 32.32 kg/m?? No results found for this or any previous visit (from the past 24 hour(s)). Intake/Output Summary (Last 24 hours) at 01/25/2022 1405 Last data filed at 01/25/2022 1200 Gross per 24 hour Intake 1920 ml Output -- Net 1920 ml Wt 92.3 kg Ms. Cedillo has done extremely well and is ready for discharge to the care of her mother with follow-up already scheduled for PT OT and speech as well as her oncological care. Please see Dr. Warner's progress note and dismissal summary for additional details Michael De Los Santos M.D., Ph.D. PPE use information for possible contact monitoring: PPE used during visit: Provider was wearing a mask and eye protection throughout entire session. Patient was NOT wearing mask during entire session. Nicole Kong M.S., CCC-SPONSORSHIP COORDINATOR - 01/24/2022 2:00 PM CDT Speech Language Pathology Communication/Cognitive Treatment- Inpatient Rehabilitation Unit Session Type: Treatment Length of Session: 30 minutes SILVANO Mia was seen today in her room. She participated well in all therapy tasks. Her mother is not present for this session. Pain: No signs of pain were reported or observed. General Family/Caregiver Present: No Arousal/Alertness: Appropriate responses to stimuli Behavior: Alert, Cooperative, Pleasant mood OBJECTIVE Objective Session Data Auditory Comprehension Yes/No Questions: Within Normal Limits (WNL) Commands: Impaired One Step Basic Commands: 100% Two Step Basic Commands: 75% Conversation Comprehension: Moderate Reading Comprehension Reading Status: Impaired Scanning/Trackin% accuracy Words: 100% accuracy Sentence: 61-80% accuracy Interfering Components: Attention Effective Techniques: Prescription glasses/contact lenses Verbal Expression Primary Mode of Expression: Verbal Primary Language: Malagasy Generative Naming/Word Fluency: 61-80% accuracy Open Ended Questions: 81-99% accuracy Conversation: Impaired Impaired Conversation: Moderate Cognition Overall Cognitive Status: Impaired Arousal/Alertness: Appropriate responses to stimuli Attention: Impaired Sustained: Mild Alternating: Moderate Memory: (Writing down times of therapy in personal marketing planner) Orientation: Oriented X4 Problem Solving: Impaired (Overcomplicates and difficulty shifting attention) Impulsive: Mildly impulsive Executive Functioning: Impaired Planning: Moderate Organization: Moderate Assessment Mia is seen for Speech-Language Pathology in the afternoon to address communication. She is lookingforward to discharge tomorrow, but understandably expresses concern about her language and cognitivestatus. We continue the discussion started earlier this morning with my colleagues Jerald Almaraz and Cecelia Renteria. Hill strategies that are identified include: prioritizing, simplifying, self- advocacy, and reframing.Mia is able to describe specific applications for each of these, including ways she will manage hertime so that she may have adequate rest during her upcoming treatment. Notably, she states that I am the stuart in her medical situation, referring to the caregiver-patient dynamic between herself andher family. She acknowledges that it will be an adjustment, and she refers to her Brain Strategy list frequently during our interaction. Motivational interviewing techniques are utilized throughout this session to foster self-reflection. Ongoing Speech-Language Pathology services are recommended to address her functional goals and maximize her rehabilitation potential. Contact Monitoring: Clinician was wearing the following PPE for the duration of today's session(s): surgical mask and eye protection. Diagnosis: Impressions Consistent with a diagnosis of: Non-Aphasic Cognitive Communication Disorder, Aphasia Aphasia: Moderate Non-Aphasic Cognitive Communication Disorder: Moderate Goals: Cognition Short Term Goal 1 Cognition Short Term Goal 1: Mia will recall new information related to therapy, safety and routinewith strategy use in 80% of opportunities. Cognition Short Term Goal 1 Progress Toward Goal: Progress toward goal completion: continue on target Auditory Comprehension Short Term Goal 1 Auditory Comprehension Short Term Goal 1: Patient will follow two and multistep commands with extra time in 80% of opportunities. Auditory Comprehension Short Term Goal 1 Progress Toward Goal: Progress toward goal completion: continue on target Verbal Expression Short Term Goal 1 Verbal Expression Short Term Goal 1: Patient will answer basic questions related to therapy and routine with increased time with 100% accuracy. Verbal Expression Short Term Goal 1 Progress Toward Goal: Progress toward goal completion: continue on target Verbal Expression Short Term Goal 2 Verbal Expression Short Term Goal 2: Mia will be able to express more complex and abstract information as it relates to therapy, routine and conversation through strategy use in 80% of opportunities. Verbal Expression Short Term Goal 2 Progress Toward Goal: Progress toward goal completion: continue on target Plan Discharge Location: Unknown SPONSORSHIP COORDINATOR Ongoing Services: Ongoing formal Speech Pathology services Frequency of Treatment: 1-2x/5-6 days per week Duration of Treatment: duration of rehab stay SPONSORSHIP COORDINATOR - Next Inpatient Appointment: 01/25/22 Rehab Potential: Good Electronically signed by Nicole Kong M.S., [facility]-SPONSORSHIP COORDINATOR at 01/24/2022 3:54 PM CDT Jerald Almaraz M.A., [facility]-SPONSORSHIP COORDINATOR - 01/24/2022 10:30 AM CDT Speech Language Pathology Communication/Cognitive Treatment- Inpatient Rehabilitation Unit Session Type: Treatment Length of AM Session: 40 minutes SUBJECTIVE Patient is seen in her room on [address]. She is alert and seated upright in armchair. Her mother is present for session. Pain: No pain was reported during session. General Arousal/Alertness: Appropriate responses to stimuli Behavior: Alert, Cooperative, Distractible, Pleasant mood OBJECTIVE Objective Session Data Cognition Overall Cognitive Status: Impaired Arousal/Alertness: Appropriate responses to stimuli Attention: Impaired Sustained: Mild Alternating: Moderate Memory: (Writing down times of therapy in personal marketing planner) Orientation: Oriented X4 Problem Solving: Impaired (Overcomplicates and difficulty shifting attention) Impulsive: Mildly impulsive Executive Functioning: Impaired Planning: Moderate Organization: Moderate Assessment Ms. Cedillo Is seen by speech pathology for treatment targeting cognitive communication skills. During our session today education provided to Ms. Cedillo And her mother present regarding cognitive efficiency strategies that can be utilized when cognitive demand is increased and tips for supporting Cognitive communication skills outside the hospital. There is an emphasis placed on organization, monitoring fatigue, and focusing on one task at a time. We discuss the benefit of having a strategy for managing communication breakdowns in conversation to decrease frustration. Ms. Cedillo is encouraged to repeat back information to the speaker to ensure that she has the facts and to advocate for herself when she needs more time. In conversation, her mother expresses frustration with her care from the medical team specifically in difficulty with communication and pain management given Ms. Cedillo's language impairment. Ms. Cedillo Will continue to greatly benefit from ongoing speech pathology services. Contact Monitoring: Clinician was wearing the following PPE for the duration of today's session(s): surgical mask and eye protection Diagnosis: Impressions Consistent with a diagnosis of: Non-Aphasic Cognitive Communication Disorder, Aphasia Aphasia: Moderate Non-Aphasic Cognitive Communication Disorder: Moderate Goals: Cognition Short Term Goal 1 Cognition Short Term Goal 1: Mia will recall new information related to therapy, safety and routinewith strategy use in 80% of opportunities. Cognition Short Term Goal 1 Progress Toward Goal: Progress toward goal completion: continue on target Auditory Comprehension Short Term Goal 1 Auditory Comprehension Short Term Goal 1: Patient will follow two and multistep commands with extra time in 80% of opportunities. Auditory Comprehension Short Term Goal 1 Progress Toward Goal: Progress toward goal completion: continue on target Verbal Expression Short Term Goal 1 Verbal Expression Short Term Goal 1: Patient will answer basic questions related to therapy and routine with increased time with 100% accuracy. Verbal Expression Short Term Goal 1 Progress Toward Goal: Progress toward goal completion: continue on target Verbal Expression Short Term Goal 2 Verbal Expression Short Term Goal 2: Mia will be able to express more complex and abstract information as it relates to therapy, routine and conversation through strategy use in 80% of opportunities. Verbal Expression Short Term Goal 2 Progress Toward Goal: Progress toward goal completion: continue on target Plan Discharge Location: Unknown SPONSORSHIP COORDINATOR Ongoing Services: Ongoing formal Speech Pathology services Frequency of Treatment: 1-2x/5-6 days per week Duration of Treatment: duration of rehab stay SPONSORSHIP COORDINATOR - Next Inpatient Appointment: 01/25/22 Rehab Potential: Good Clarisa Rodriguez - 01/24/2022 10:27 AM CDT Images from the original note were not included. Occupational Therapy Rehabilitation [facility] Inpatient Progress Note SUBJECTIVE Patient's Name: Mia Richardson Reason for Referral: OT Treatment; IRF Brain Unit Medical Diagnosis: 1. Tumor Brain (HCC) 2. Aphasia 3. Deficit Cognitive Communication 4. Abnormal Gait Non Orthopedic 5. Decline Functional Status 6. Unsteadiness Non Orthopedic 7. Lack Of Coordination 8. 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 Wetzel with ADL and IADL tasks. To initiate asking questions to medical team and to family members. Patient Comments: Patient reported she believes her visual scanning has improved but that when her brain becomes fatigued, it is harder to focus her visual attention to tasks. Fall Risk (65 and older) Fall in the last 12 months: No Are you fearful of falling?: Yes OBJECTIVE Patient met seated in bedside chair upon arrival. Patient's mother present for caregiver training during morning session. Pain: No pain reported this date. Quality Indicators: Repetition of Three Words (First Attempt): 3 Temporal Orientation: Year: Correct Temporal Orientation: Month: Accurate within 5 days Temporal Orientation: Day: Correct Recall: Sock: Yes, no cue required Recall: Blue: Yes, no cue required Recall: Bed: Yes, no cue required BIMS Summary Score: 15 Hearing, Speech, and Vision Expression of Ideas and Wants: Frequent difficulty Understanding Verbal and Non-Verbal Content: Sometimes understands Eating Assistance Needed: Independent Physical Assistance Level: No physical assistance CARE Score - Eatin Oral Hygiene Assistance Needed: Independent Physical Assistance Level: No physical assistance CARE Score - Oral Hygiene: 6 Toileting Hygiene Assistance Needed: Independent Physical Assistance Level: No physical assistance CARE Score - Toileting Hygiene: 6 Shower/Bathe Self Assistance Needed: Independent Physical Assistance Level: No physical assistance CARE Score - Shower/Bathe Self: 6 Comments: performs standing shower Upper Body Dressing Assistance Needed: Independent Physical Assistance Level: No physical assistance CARE Score - Upper Body Dressin Lower Body Dressing Assistance Needed: Independent Physical Assistance Level: No physical assistance CARE Score - Lower Body Dressin Putting On/Taking Off Footwear Assistance Needed: Independent Physical Assistance Level: No physical assistance CARE Score - Putting On/Taking Off Footwear: 6 Toilet Transfer Assistance Needed: Independent Physical Assistance Level: No physical assistance CARE Score - Toilet Transfer: 6 Therapeutic Functional Activity Position: Standing Therapeutic Functional Activity Comments: Patient completed therapeutic functional activity standingat tabletop surface to address memory and visual scanning. Memory matching game conducted as patientimplemented scanning techniques without verbal cuing and was able to match 6+ pairs successfully. Act ivity conducted in busy gym environment to challenge patient with auditory/visual distractions. During afternoon session, patient engaged in therapeutic functional activity to address visuospatial skills and constructional ability. Patient copied figure of a cube and of overlapping pentagons from a model. Image shown below. Bolt Making Test Bolt making assessments require a variety of cognitive processes, including attention, visual search, scanning, sequencing, shifting, psychomotor speed, abstraction, cognitive flexibility, the abilityto execute and modify a plan of action, and the ability to maintain two trains of thought simultaneously. Bolt A is a simple trail making task. Average performance requires task completion in 29 seconds.Today, patient completed Bolt A in 28 seconds. Patient demonstrated 0 errors during task performance. Bolt B introduces an alternating condition. The average individual is able to complete Bolt B within 75 seconds. When discussing return to driving, research literature recommends a cut off score of90 seconds. Today, patient completed Bolt B in 32 seconds, which is above the cutoff score for deficiency. Patient demonstrated 0 errors during task performance. Assessment was administered today with paper and pencil via standardized form. Admission (01/19) Discharge (01/24) Bolt A 32 seconds 28 seconds Bolt B 49 seconds 32 seconds Hand Testing: Right Hand Left Hand Live Ammunition Inspector Handle Setting 2 - Score 1 (kg): 38 kg Handle Setting 2 - Score 2 (kg): 35 kg Handle Setting 2 - Score 3 (kg): 34 kg Handle Setting 2 - Final Score (kg): 35.67 kg Female/50 right hand norm = 30 kg Handle Setting 2 - Score 1 (kg): 35 kg Handle Setting 2 - Score 2 (kg): 34 kg Handle Setting 2 - Score 3 (kg): 33 kg Handle Setting - Score Final (kg): 34 kg Female/50 left hand norm = 26 kg Box and Blocks Gross motor coordination was assessed using the Box and Blocks test, measured by the number of blocks moved in a minute, and compared against norms based on gender and age range. Right: 78 blocks Left: 76 blocks Female/50 right hand norm = 77.7 blocks Female/50 left hand norm = 74.3 blocks Admission (01/18) Discharge (01/24) Right 62 blocks 78 blocks Left 68 blocks 76 blocks 9 Hole Peg Fine motor coordination was assessed using the 9 Hole Peg test, measured in seconds, and compared against norms based on gender and age range. Right: 17 seconds Left: 21 seconds Female/50 right hand norm = 18 seconds Female/50 left hand norm = 20.1 seconds Admission (01/18) Discharge (01/24) Right 18 sec 17 sec Left 18 sec 21 sec Patient/Family Education: Caregiver training/education Education Provided to: Mia and Mother Learner's Response: Demonstrated verbal understanding At the end of today's therapy session patient was left seated in bedside chair with an appropriate call light within reach. Patient's needs and questions addressed during today's session. Contact monitoring: PPE used during therapy: Therapist was wearing the following PPE throughout entire session: surgicalmask and eye protection Patient was wearing a mask during therapy session when outside of hospital room. Additional Staff Present During Session: Muriel Cifuentes, GINA Assessment Mia is currently performing activities of daily living with modified independence for increased time for sequencing steps of task. She will require ongoing supervision assistance for instrumental activities of daily living upon discharge home for meal preparation, medication management, financial harmony gement, child rearing, and household management. Caregiver training with patient's mother occurred this date. Education provided on cognitive strategies patient benefits from including self-talk, writing things down, increased time, and limiting environmental distractions. Mom and patient provided with handout of strategies as well as strategies for self-regulation, visual scanning, and types of verbal cuing such as one-step commands. Patient is progress in her ability to generate cognitive strategyduring morning session with general cue provided such as, what could you do to make this task easier? She generated one strategy on her own during afternoon session by stating, can I write this down? Patient completed Bolt Making Test administered via standardized form with paper and pencil. She completed Bolt A in 28 seconds improving from 32 seconds in her previous assessment. She completed Bolt B in 32 seconds improving from her previous score of 49 seconds. These score improvements indicate progress in patient's overall processing speed. Based on results of standardized testing, Mia's gross motor coordination has improved bilaterally since evaluation. Patient's fiscal officer strength and fine motor coordination results from standardized testing yielded similar scores upon evaluation compared to re- assessment scores. Patient is performing below functional baseline and requires ongoing skilled OT to address previous listed deficits to improve independence with ADL and IADL tasks. Barriers to Discharge Home: Current functional status, Safety concerns, Fall risk Comorbid Conditions: Cancer Personal Factors: Visual impairment, Safety awareness, Communication deficit, Balance impairment Discharge Therapy Needs - OT: Ongoing skilled occupational therapy Level of Care Needed - OT: Assistance with toilet/shower transfers, Assistance with medication set up/administration, Assistance with showering/bathing, Assistance with dressing, Assistance with meal preparation, Assistance with financial operations clerk, Assistance with transportation, Assistance with hous ekeeping, Assistance with shopping, Cognitive assistance needed Recommended Adaptive Equipment - OT: Other (Comment) (Ongoing assessment) Functional Goals and Timeframes: OT Goal #1: By next ITC, patient will verbalize understanding of new medications and self-identify cognitive strategy to recall and organize medications at home. OT Goal #1 Status: Progressing OT Goal #2: By next ITC, patient will generate 2-3 cognitive strategies to improve performance and safety during instrumental activities of daily living, including finances, appointment scheduling, laundry, and meal planning. OT Goal #2 Status: Achieved (Goal achieved this date. One strategy generated with general cue and patient generated second strategy on her own without cuing.) OT Goal #3: By discharge, patient will complete multiple errands task with supervision assistance without verbal cuing to implement visual scanning techniques when navigating environment. OT Goal #3 Status: Progressing (Patient required no verbal cues to scan environment when transitioning from hospital room to OT gym.) OT Goal #4: By discharge, patient will perform dressing routine with modified independence without verbal cuing for sequencing steps of task. OT Goal #4 Status: Achieved (Goal achieved this date.) Progress: Progressing toward goals Plan Patient agrees with the plan of care and goals. Treatment Plan: OT Frequency: 6 times per week OT Amount: 2 visits per day OT Inpatient Duration : Until goals are met or hospital discharge Plan: Continue with current plan OT Plan Comments: Functional cognitive tasks and further cognitive assessments, further vision interventions for right visual field cut, implementation of cognitive strategies, instrumental activities of daily living including meal preparation, laundry, household management, medication management Treatment interventions may include: Treatment Interventions: Therapeutic functional activity, Neuromuscular re- education, Self-care/homemanagement, Cognitive skills training, Therapeutic exercise, Therapeutic modalities as needed, Orthosis [id number], Manual therapy Time Spent with Patient Evaluations Physical Performance Testing (min): 20 min Therapeutic Interventions Home Management Training (min): 30 min Therapeutic Activity (min): 40 min Time Tracking Total Timed Units (min): 90 min Total Treatment Time (min): 90 min OT Individual: 90 Minutes Clarisa Rodriguez OTS Associated attestation - Muriel Cifuentes M.S., O.T. - 01/25/2022 8:22 AM CDT This therapist has reviewed all documentation and supervised today???s session. The therapist agreeswith the plan developed in collaboration with the patient. Meeta Alberto, AFSHANN, LD - 01/24/2022 9:22 AM CDT Clinical Nutrition: Initial Assessment Clinical Nutrition was requested to evaluate patient for length of stay - weight loss SUBJECTIVE Ms. Cedillo is a 51 y.o. 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 Current Nutrition (since admission): Per documented meal intakes, pt has been consuming 100% of her meals here in rehab. Percentage of Meals Eaten for the past 72 hrs: Meals (%) 01/24/22 0900 100 01/23/22 1800 100 01/23/22 1243 100 01/23/22 0900 100 01/22/22 1800 100 01/22/22 1200 100 01/22/22 0800 100 01/21/22 1800 100 01/21/22 1300 100 Nutrition history (per RD note 01/16): Patient reports following a ketogenic diet at home for the past 2-3 months. Had also done the Paleo diet 3 seperate times in her life. Patient doesn't feel like she needs this diet during this hospital stay however, her mother who is a physician, believes this diet will help with slowing down her cancer progression. Mother states she does not want patient to being losing weight through Keto. Follows the 75% fat, 20% protein, and 5% carbs rule. Mentioned trackingcalories, protein, and fat on phone. Would eat roughly 900 kcals per day. For breakfast mainly drinks coffee and tea. Will have 3 cups of tea throughout the day. At lunch will have a protein shake thatconsist of flax sees, rody seeds, egg white protein, beet root, tumeric, blueberries, olive oil, almond milk, and a sweetner like Stevia. Dinner is mainly a meat source such as fish, beef, and some chicken. Food Intolerance: lactose OBJECTIVE Current nutrition orders: Current Diet: Adult Diet Regular starting at 01/17 1224 Skin integrity: no edema currently noted; head incision noted (per RN flowsheets) Pertinent Labs: reviewed. Medications: reviewed. Anthropometrics: Height: 169 cm Admission Weight: 89.3 kg (01/17/2022) Current Weight: 92.3 kg [place] Body Weight (Calculated) : 60.3 kg BMI (Calculated): 32.3 kg/m?? Weight change since admission: 3 kg Weight change history (per previous RD note): Patient reports last weight at home was 198# (90 kg). Typically weight was running around 205-210# (93-95 kg). 5.5% weight loss x 1 month noted which is clinically significant. Wt Readings from Last 28 Encounters: 01/24/22 92.3 kg 01/11/22 88.9 kg 01/01/22 97.7 kg Estimated Needs: Total Calorie Needs: 3861-0043 calories/day Method to Estimate Energy Needs: [place] (75% to Basal) Weight Used for Equation Calculations: 92.3 kg Total Protein Needs: 72 - 90 grams/day (Method to Estimate Protein Needs (g/kg): 1.2 - 1.5 gm/kg) Weight Used to Calculate Protein Needs (Kg): 60.3 kg (IBW) Nutrition Diagnosis: Unintended weight loss related to medical condition as evidenced by 5.5% weight loss x 1 month Malnutrition Criteria: Average estimated Intake: Other (Comment) (pt has been finishing 100% of meals; unable to interview pt today) Weight Loss: 5% in 1 month Body Fat: Unable to Assess Muscle Mass: Unable to Assess Fluid Accumulation: Absent Nutritional Status: (Insufficient evidence to diagnose malnutrition at this time.) ASSESSMENT / PLAN Patient meets ASPEN/AND criteria for -- (Insufficient evidence to diagnose malnutrition at this time.) (01/24/2022 9:37 AM) See Nutrition Focused Physical Findings section for details. Nutrition Intervention: Interventions: Other (Interventions will be implemented once interview is completed). Recommendations: ??? No changes at this time; continue current nutrition orders Monitoring/Evaluation: Nutrition parameter to monitor: Meals/Supplement Intake, Weight Status, Pertinent Labs, Skin Integrity Desired Outcome: pt to have adequate PO intake Patient Goal(s): 1. Pt will eat 75-100% of meals. For questions about patient's nutritional care please contact pager [phone] on weekdays or [phone] on weekends/holidays. Benjamní Warner M.D. - 01/24/2022 7:57 AM CDT SUBJECTIVE Ms. Cedillo is 51 y.o. 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 The patient reports sleeping great last night. She states her headaches have been in great control. She used 300mg of gabapentin prior to bed last night, and thinks this was helpful for both sleep and headaches. I reviewed her discharge medications, and sent her medications to the [facility] per her request. She will ask her mom to pick these up this afternoon or tomorrow. Nursing will remove sutures this morning. She has no other questions or concerns for me this morning. OBJECTIVE Temperature: [36.4 ??C-36.9 ??C] 36.5 ??C Resp Rate: [16-18] 16 Blood Pressure: (121-140)/(82-90) 121/82 SpO2: [98 %-99 %] 98 % Last Stool Occurrence: 1 (per pt last inocencio) (01/24/22 0700 : Olga Najera, R.N.) Intake/Output Summary (Last 24 hours) at 01/24/2022 4967 Last data filed at 01/23/2022 1243 Gross per 24 hour Intake 960 ml Output -- Net 960 ml Bowel Incontinence: No (01/23/22 0900 : Olga Najera R.N.) Unmeasured Urine Occurrence: 1 (per pt) (01/24/22 0700 : Olga Najera, R.N.) Urinary Incontinence: No (01/24/22 0700 : Olga Najera R.N.) Physical Exam: General: Well-appearing, in no acute distress HEENT: Mucous membranes moist Eyes: No scleral icterus, conjunctiva clear Heart: hemodynamically stable Lungs: breathing comfortably on room air Skin: Dry and intact, no acute lesions noted Neuro: Alert and oriented, appropriate mood and affect. Expressive aphasia with paraphrasic errors, but speaking in complete sentences. Diagnostics I reviewed the imaging studies and agree with the interpretation as recorded. I reviewed the pertinent laboratory data and diagnostic data. ASSESSMENT / PLAN In Summary, Ms. 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 ?? Plan for today (01/24/2022): - Remove sutures today - Medications sent to [facility] ?? 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 Continue with PT, OT and SPONSORSHIP COORDINATOR to achieve goals as stated above -Pain control: Continue acetaminophen 1,000 mg PO q6h PRN. -Seizure ppx: Continue Keppra 1,000 mg PO BID. Will remain on this until ANDRESSA follow up. -Continue dexamethasone taper. Scheduled to end 01/26 ?? #GERD -Continue pantoprazole 40 mg ?? FULL CODE as discussed with patient. Diet: Regular. Sutures/Amy: removed 01/24 DVT prophylaxis: Lovenox Bowel: Senna, MiraLAX and suppository as needed. Bladder: Currently voiding Disposition: 01/25; goal to home Benjamín Warner MD PGY-2, PM&R Please contact the brain rehabilitation service pager [phone] with questions or concerns. Associated attestation - Michael De Los Santos M.D., Ph.D. - 01/24/2022 1:55 PM CDT I saw and evaluated the patient, participating in the hill portions of the service. I reviewed the resident/fellow???s note. I agree with the resident/fellow???s findings and plan. Ms. Cedillo is capable of participating in rehabilitation. She continues to progress towards functional independence in the area(s) of mobility, self-care, communication, and cognition and will benefitfrom ongoing intensive inpatient rehabilitation. I have met with the patient and discussed her status with her. Ms. Cedillo was again cheerful and alert. But she was able to transfer from sitting to standing and arrange the objects on her traBP 114/80 (BP Location: Left arm;Upper, Patient Position: Sitting) Pulse 62 Temp 36.6 ??C (Oral) Resp 16 Ht 169 cm Wt 92.3 kg LMP 01/07/2022 (Approximate) SpO2 97% BMI 32.32 kg/m?? No results found for this or any previous visit (from the past 24 hour(s)). Intake/Output Summary (Last 24 hours) at 01/24/2022 1349 Last data filed at 01/24/2022 1300 Gross per 24 hour Intake 960 ml Output -- Net 960 ml Wt 92.3 kg Ms. Cedillo continues to show progress in therapy. Aphasia limits her reports but she has told methat her headache is between 1 and 2 on multiple visits. We will proceed with family education and are working towards discharge tomorrow to the care of her mother with follow-up oncologic care and therapy. Michael De Los Santos M.D., Ph.D. PPE use information for possible contact monitoring: PPE used during visit: Provider was wearing a mask and eye protection throughout entire session. Patient was NOT wearing mask during entire session. Lexi Syed P.T., D.P.T. - 01/24/2022 7:50 AM CDT [facility] SUBJECTIVE Patient's Name: Mia Richardson Reason for Referral: PT Evaluate and treat - Brain IRF Medical Diagnosis: 1. Tumor Brain (HCC) 2. Aphasia 3. Deficit Cognitive Communication 4. Abnormal Gait Non Orthopedic 5. Decline Functional Status 6. Unsteadiness Non Orthopedic 7. 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 Wetzel with ADL and IADL tasks. Precautions Other Precautions: Fall risk. Decreased safety awareness. R visual field cut. R inattention. Communication deficit (aphasia). Fall Risk (65 and older) Fall in the last 12 months: No Are you fearful of falling?: Yes OBJECTIVE Pain: did not quantify Vitals: Not indicated at this time Independent with all mobility throughout session. PT Neuromuscular Re-education Neuromuscular Re-education 1: Patient instructed to go down to the gym, go up and down the stairs 3xand then locate a physioball for the next task. Verbal instructions provided before we left the roomin order to improve working memory. Patient able to recall instructions with fair accuracy. With patient seated on physioball, worked on alternating LE and UE movement to metronome to improve coordination and multi-modal integration. 2. Patient navigating throughout hospital to familiar environments such as room and rehab apartment,as well as unfamiliar enviroments like a specific room number, using contextual clues of signs. Her working memory, visouspatial navigation, and visual scanning has significantly improved 3. With patient standing on bosu (convex side down), rolled medicine ball across treatment table, naming alphabetical female names, male names, food, and locations to improve word recal during motor activities. Patient did well with this task. Patient/Family Education: post discharge recovery Education Provided to: Mia and lola Souza Learner's Response: Able to teach back At the end of today's therapy session patient was left seated in bedside chair with an appropriate call light within reach. Patient's needs and questions addressed during today's session. Contact monitoring: PPE used during therapy: Therapist was wearing the following PPE throughout entire session: surgicalmask and eye protection Patient was wearing a mask during therapy session: yes Additional Staff Present During Session: Devorah Gu, PT Assessment Patient and mother present for morning session. Spent session focused on patient and caregiver education in preparation for discharge tomorrow. They both articulated appropriate and well thought out questions regarding facilitating recovery and maintaining safety. In afternoon, continued to work on dual task training with motor and cognitive components, as well as path finding and working memory, which patient has improved significantly with. Barriers to Discharge Home: Current functional status, Safety concerns, Fall risk Comorbid Conditions: Cancer, Obesity Personal Factors: Visual impairment, Safety awareness, Communication deficit, Balance impairment Discharge Therapy Needs - PT: Ongoing skilled physical therapy Level of Care Needed - PT: Physical assistance needed, Cognitive assistance needed Functional Goals and Timeframes: PT Goal #1: Patient will demonstrate independence with bed mobility by discharge to allow for improved independence with functional mobility. PT Goal #2: Patient will demonstrate independence with [id number] transfers by discharge to allow for improved safety with functional mobility. PT Goal #3: Patient will demonstrate independence with ambulation and least restrictive device to allow for improved independence with functional mobility. PT Goal #4: Patient will demonstrate ability to ascend/descend 10 stairs with single handrail independently to allow for safe discharge. Progress: Progressing toward goals Plan Patient agrees with the plan of care and goals. Treatment Plan: PT Frequency: 6 times per week PT Amount: 2 visits per day PT Inpatient Duration : Until goals are met or hospital discharge Plan: Plan of care initiated PT Plan Comments: attention to right environment, path finding, high level balance Treatment interventions may include: Treatment/Interventions: Therapeutic exercise, Therapeutic functional activity, Neuromuscular re-education, Gait training Time Spent with Patient Therapeutic Interventions Gait Training (min): 15 min Neuromuscular Re-Education (min): 45 min Therapeutic Activity (min): 30 min Time Tracking Total Timed Units (min): 90 min Total Treatment Time (min): 90 min PT Individual : 90 Minutes Lexi Syed P.T., D.P.T. Clarisa Rodriguez - 01/23/2022 11:24 AM CDT Occupational Therapy Rehabilitation [facility] Inpatient Progress Note SUBJECTIVE Patient's Name: Mia Richardson Reason for Referral: OT Treatment; [facility] Brain Unit Medical Diagnosis: 1. Tumor Brain (HCC) 2. Aphasia 3. Deficit Cognitive Communication 4. Abnormal Gait Non Orthopedic 5. Decline Functional Status 6. Unsteadiness Non Orthopedic 7. 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 [place] with ADL and IADL tasks. To initiate asking questions to medical team and to family members. Patient Comments: Patient reported she would call her mother to schedule caregiver training for . Instructed patient to write down a reminder to serve as an external aid. Precautions Other Precautions: Fall risk. Decreased safety awareness. R visual field cut. R inattention. Communication deficit (aphasia). Fall Risk (65 and older) Fall in the last 12 months: No Are you fearful of falling?: Yes OBJECTIVE Patient met seated in bedside chair upon arrival. Pain: 10/04 IADL's Meal Preparation Meal Prep Activity: Using a list for sequencing task Meal Prep Delivery: Facilitated, Educated Meal Prep Level of Assistance: Supervision/Set-up Meal Preparation Comments: Patient completed menu activity consisting of 10 questions as it relates to identifying items from a menu. She required 2 repetitions of instructions read aloud to complete task number one. She was then able to answer the remaining 9 questions requiring specific verbal cues for 2-3 test items. She required 2 general cues to sequence task and was able to problem-solve when asked to implement cognitive strategy. Instead of using mental math to discover cost of grocery items,patient came up with strategy of writing it down after general cue was provided. She then completed this question successfully. Patient noted to be more successful with worksheet when implementing self-talk strategy and when taking increased time to think. Prior to activity implementation, demonstrated emotionality/crying stating she was, extremely happy to see people around. Therapist instructed deep breathing exercises to improve self-regulation of emotions by taking 5 deep breaths. Cognitive Performance Test The Cognitive Performance Test (CPT) is comprised of sub tasks. CPT performance requires working memory to orchestrate complex cognitive resources, such as attention, perception, language, and memory to achieve stated and implied task goals. The test imposes written verbal and multiple-step contextual task requirements and patterns of performance are observed that relate to each level. Multiple sub-goals are used within each task to detect and objectively measure and quantify executive dysfunction. The Cognitive Performance Test (CPT) Select percentage of time patient was able to attend during session: 100% Source of report on Patient's Functional History: Patient Medbox task: 5.0/6 Shop Task: 5.0/6 Wash Task: 5.0/5 [place] Task: 5.0/5 Phone Task: 4.5/6 Dress Task: 5.0/5 Travel Task: 6.0/6 Total Score (Numerator): 35.5 Score Denominator: 39 Patient would need assistance with: managing daily schedule, medication management, finances, meal preparation, driving: it is recommended that patient undergo a driving evaluation secondary to deficits noted above, home management, grocery shopping, hazardous activities need to be monitored, limited or restricted to ensure safety At the end of today's therapy session patient was left seated in bedside chair with an appropriate call light within reach. Patient's needs and questions addressed during today's session. Contact monitoring: PPE used during therapy: Therapist was wearing the following PPE throughout entire session: surgicalmask and eye protection Patient was wearing a mask during therapy session when outside of hospital room. Additional Staff Present During Session: Muriel Cifuentes, CEC Assessment Mia's right-sided inattention, right visual field cut, short-term memory deficits, and limit her ability to perform instrumental activities of daily living such as reading from a menu and navigating environment independently this date. She has improved in her ability to implement visual scanning during transition from hospital room to OT gym. She completed menu activity requiring 2 repetitions of instructions and 2-3 specific cues and 2 general cues to sequence steps of task. Cognitive Performance Test conducted during morning session. Patient scored 35.5/39 and the results indicate patient will require assistance with instrumental activities of daily living at home for activities such as medication management, finances, meal preparation, managing daily schedule, and driving. During testing, shereported some of the cognitive strategies that helped her performance were talking aloud, limiting auditory and visual distractions, and allowing increased time to complete tasks. She benefits from general cues provided to generate these strategies in the moment during functional activities. Patient demonstrated emotionality/crying in therapy gym stating she was, extremely happy to see people around. Continue to provide education on self-regulation strategies such as breathing techniques which were successful during afternoon session. Caregiver education/training has been scheduled with Mia's mother for , 01/24/2022 at 9 a.m. Patient is performing below functional baseline and requires ongoing skilled OT to address previous listed deficits to improve independence with ADL and IADL tasks. Barriers to Discharge Home: Current functional status, Safety concerns, Fall risk Comorbid Conditions: Cancer Personal Factors: Visual impairment, Safety awareness, Communication deficit, Balance impairment Discharge Therapy Needs - OT: Ongoing skilled occupational therapy Level of Care Needed - OT: Assistance with toilet/shower transfers, Assistance with medication set up/administration, Assistance with showering/bathing, Assistance with dressing, Assistance with meal preparation, Assistance with financial operations clerk, Assistance with transportation, Assistance with hous ekeeping, Assistance with shopping, Cognitive assistance needed Recommended Adaptive Equipment - OT: Other (Comment) (Ongoing assessment) Functional Goals and Timeframes: OT Goal #1: By next ITC, patient will verbalize understanding of new medications and self-identify cognitive strategy to recall and organize medications at home. OT Goal #1 Status: Progressing (Patient required 2-3 specific cues to complete medication managementthis date.) OT Goal #2: By next ITC, patient will generate 2-3 cognitive strategies to improve performance and safety during instrumental activities of daily living, including finances, appointment scheduling, laundry, and meal planning. OT Goal #2 Status: Progressing (Patient was able to generate one cognitive strategy during session with general cue provided.) OT Goal #3: By discharge, patient will complete multiple errands task with supervision assistance without verbal cuing to implement visual scanning techniques when navigating environment. OT Goal #3 Status: Progressing (Patient improving in her visual scanning when navigating hallway from hospital room to OT gym.) OT Goal #4: By discharge, patient will perform dressing routine with modified independence without verbal cuing for sequencing steps of task. OT Goal #4 Status: Progressing (Patient donned mask x1 and gait belt when exiting hospital room without verbal cue. Patient dressed prior to therapy session.) Progress: Progressing toward goals Plan Patient agrees with the plan of care and goals. Treatment Plan: OT Frequency: 6 times per week OT Amount: 2 visits per day OT Inpatient Duration : Until goals are met or hospital discharge Plan: Continue with current plan OT Plan Comments: Functional cognitive tasks and further cognitive assessments, further vision interventions for right visual field cut, implementation of cognitive strategies, instrumental activities of daily living including meal preparation, laundry, household management, medication management Treatment interventions may include: Treatment Interventions: Therapeutic functional activity, Neuromuscular re- education, Self-care/homemanagement, Cognitive skills training, Therapeutic exercise, Therapeutic modalities as needed, Orthosis [id number], Manual therapy Time Spent with Patient Therapeutic Interventions Cognitive Skills Training, Initial 15 min: 15 min Cognitive Skills Training, Ea Addt'l 15 min: 45 min Home Management Training (min): 30 min Time Tracking Total Timed Units (min): 90 min Total Treatment Time (min): 90 min OT Individual: 90 Minutes Clarisa Rodriguez OTS Associated attestation - Muriel Cifuentes M.S., O.T. - 01/24/2022 1:26 PM CDT This therapist has reviewed all documentation and supervised today???s session. The therapist agreeswith the plan developed in collaboration with the patient. Chandan Johnson D.O. - 01/23/2022 10:44 AM CDT This is a miscellaneous note. I was alerted at around midnight last night by nursing that Ms. Cedillo was having persistent headaches rated 6/10, refractory to Tylenol she had received 4 hours prior. Neuro exam was stable. Headaches were typical in an anterior and posterior distribution. I advised to give Tylenol a little early and ordered a heating pad and methyl salicylate-menthol cream PRN to be applied to the neck as well. I held off on adding any additional oral medications (NSAIDs, compazine, opioids) given her medical history. About 30 minutes later nursing informed me the patient had ongoing headaches and had called her mother who was apparently irate about the current situation. Nursing noted that the patient was visibly anxious and tearful and talked to the patient's mother over the phone. Nursing passed along my recommendations about conservative care for Ms. Cedillo's headaches. The patient's mother responded with deprecating comments about the poor care her daughter was enduring and said these PM&R doctors don't know sh. At this point nursing requested I talk to mom given her level of anger and concern thatthe situation would not deescalate and that the patient's anxiety would not improve through the night. I called the patient's mother at 12:40 am and the conversation lasted 17 minutes. I explained my role on the team as the cross-covering physician. Based on her tone it was quickly apparent that she wasdissatisfied with the current treatment plan, expressing how these headaches have been ignored by everybody and how the current plan is just masking the underlying issue. She was insistent that I increase the patient's dexamethasone last night as she believed the taper was pursued too quickly and now the patient was having ongoing cerebral swelling. I validated her concern but expressed I was unsure if increasing the dose would be the answer to get her through the night and how we should pursue conservative measures first. She refused this plan and insisted on further aggressive cares, suggesting why don't you put in an IV and give her mannitol or give her a stronger faster steroid. I explained this would not be clinically warranted and would have to defer to her neurosurgery team before we made any big changes. She responded if you're uncomfortable with treating my daughter perhaps you should find a real doctor who can take care of her medical issues. Other statements included congratulations richar, you're no longer in PM&R, you've graduated to Brain Oncology, this is on you guys now, and if you don't fix this you're going to be hearing from me every hour on the hour. I again tried to deescalate the situation and apologize for the frustrations she was feeling and she respondeddon't tell me sorry, sorry doesn't fix patients and you should know that. I ultimately agreed to give an extra dose of 1 mg dexamethasone for a full dose of 3 mg overnight to see if any symptomatic im provement. She was unhappy with the timing of the medications however and concluded the conversationwith I'm going to let you think about what you're doing; hopefully you get some sleep tonight, goodluck. This conversation was passed on to my colleagues who are taking care of the patient. Signed by: Alberto Singletary D.O. 01/23/2022 11:15 AM CDT PGY-3 Physical Medicine and Rehabilitation Clover Yoder M.A., CCC-SPONSORSHIP COORDINATOR - 01/23/2022 10:30 AM CDT Speech Language Pathology Communication/Cognitive Treatment- Inpatient Rehabilitation Unit Session Type: Treatment Length of AM Session: 30 minutes Length of PM Session: 30 minutes SUBJECTIVE Mia was seen for therapy. No family is present. Pain: Pain is currently being carefully addressed by nursing. General Family/Caregiver Present: No Arousal/Alertness: Appropriate responses to stimuli Behavior: Alert, Cooperative, Distractible, Pleasant mood OBJECTIVE This note includes data from two seperate and distinct sessions on this date. Please see flowsheet for individual session details. Objective Session Data Cognition Overall Cognitive Status: Impaired Arousal/Alertness: Appropriate responses to stimuli Attention: Impaired Sustained: Mild Alternating: Moderate Memory: Impaired (Writing down times of therapy in personal marketing planner) Orientation: Oriented X4 Problem Solving: Impaired (Overcomplicates and difficulty shifting attention) Impulsive: Mildly impulsive Executive Functioning: Impaired Planning: Moderate Organization: Moderate Assessment This morning, Mia is present for therapy addressing language and cognition. She was still distracted by morning rounds (terrible head pain last night and she was quite upset) so we did take time to speak to those details. She did have some information written down that she took during rounds however it was not related to her therapy, but information such as OT-Blond, short. We spoke of having more therapeutic information such as what was the most important take away or what was the feedback instead. She stated I needed those words when clinician assisted when she had difficulty with word finding when describing what we use the marketing planner for. Mia did have some difficulty recalling the brain strategies posted on her wall yesterday, but did share that she and OT put ano ther strategy referring to looking to the left and right. Mia did activate the call light independently due to head pain and received Tylenol during this session. Mia continues to have difficulty keeping spoken words to the point/simple which then in turn affects memory/attention to tasks being completed. Mia commented that mother is coming tomorrow and clinician encouraged her to share with mom she is welcome to attend Speech therapy as well for education purposes. Clinician also provided education on Mia letting all communication partners know that she needs more time versus letting them talk for her. This was added to strategy list on the wall. Extra time for processing and comprehending novel information! This afternoon, Mia needed moderate cueing to stay on topic and answer questions directly when completing an inferencing task. She was accurate for 9/9 mental manipulation trials as information was at word level and she repeated the stimuli aloud after clinician. Self talk is a great tool for her when she can keep it simple and not become distracted and disorganized. This afternoon, Mia cion of today's session(s): surgical mask and eye protection Diagnosis: Impressions Consistent with a diagnosis of: Non-Aphasic Cognitive Communication Disorder, Aphasia Aphasia: Moderate Non-Aphasic Cognitive Communication Disorder: Moderate Goals: Cognition Short Term Goal 1 Cognition Short Term Goal 1: Mia will recall new information related to therapy, safety and routinewith strategy use in 80% of opportunities. Cognition Short Term Goal 1 Progress Toward Goal: Progress toward goal completion: continue on target Auditory Comprehension Short Term Goal 1 Auditory Comprehension Short Term Goal 1: Patient will follow two and multistep commands with extra time in 80% of opportunities. Auditory Comprehension Short Term Goal 1 Progress Toward Goal: Progress toward goal completion: continue on target Verbal Expression Short Term Goal 1 Verbal Expression Short Term Goal 1: Patient will answer basic questions related to therapy and routine with increased time with 100% accuracy. Verbal Expression Short Term Goal 1 Progress Toward Goal: Progress toward goal completion: continue on target Verbal Expression Short Term Goal 2 Verbal Expression Short Term Goal 2: Mia will be able to express more complex and abstract information as it relates to therapy, routine and conversation through strategy use in 80% of opportunities. Verbal Expression Short Term Goal 2 Progress Toward Goal: Progress toward goal completion: continue on target Plan Discharge Location: Unknown SPONSORSHIP COORDINATOR Ongoing Services: Ongoing formal Speech Pathology services Frequency of Treatment: 1-2x/5-6 days per week Duration of Treatment: duration of rehab stay Rehab Potential: Good Electronically signed by Clover Yoder M.A., [facility]-SPONSORSHIP COORDINATOR at 01/23/2022 10:32 PM CDT Benjamín Warner M.D. - 01/23/2022 7:45 AM CDT SUBJECTIVE Ms. Cedillo is 51 y.o. 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 Last night our covering resident was notified that the patient was having headaches and was very anxious. The patients neurologic exam was stable, and she was concerned as her headaches were typically responsive to tylenol. The resident ended up discussing with the patient's mother, who believed her he adaches to be attributed to her dexamethasone taper. There were many belittling comments made to theovernight resident regarding their level of training and competency in managing this scenario. She was given an additional 1mg dexamethasone on top of her scheduled 2mg for a total of 3mg. The patient then fell asleep and slept well through the night. This morning, the patient reports having no headaches. I reassured the patient hat it is to be expected to have headaches, and perhaps her headaches were being made worse by the slow steroid taper. Shealso did admit her headaches are worsened by her anxiety, and she was quit anxious last night. I diddiscuss the case with her neurosurgical team, who recommended against increasing her steroid dosage or prolonging her steroid taper. She continues to perform well physically in therapy, and remains independent in the room. She remains hemodynamically stable with good oral intake and regular bowel movements. Multidisciplinary discharge rounds: I participated in multidisciplinary bedside rounds today. Attendees included: patient, physician, bedside nurse, rental boats caretaker, physical therapist and occupational therapist. Medical updates were provided. Also discussed was progress toward patient centered goals, ongoing rehabilitation needs and dismissal planning. I have reviewed the current medication list. OBJECTIVE Temperature: [36.7 ??C] 36.7 ??C Resp Rate: [16] 16 Blood Pressure: (128-154)/(86-105) 129/88 SpO2: [97 %-100 %] 97 % Last Stool Occurrence: 1 (per patient) (01/22/22 1200 : Logan Irizarry R.N.) Intake/Output Summary (Last 24 hours) at 01/23/2022 0745 Last data filed at 01/22/2022 1800 Gross per 24 hour Intake 1490 ml Output -- Net 1490 ml Bowel Incontinence: No (01/22/22 1200 : Logan Irizarry R.N.) Unmeasured Urine Occurrence: 1 (01/20/22 2100 : Clarice Martinez RSanjuanitaN.) Urinary Incontinence: No (01/19/221955 : Janeth Ovalle R.N.) Physical Exam: General: Well-appearing, in no acute distress HEENT: Mucous membranes moist Eyes: No scleral icterus, conjunctiva clear Heart: hemodynamically stable Lungs: breathing comfortably on room air Skin: Dry and intact, no acute lesions noted Neuro: Alert and oriented, appropriate mood and affect. Expressive aphasia with paraphrasic errors, but speaking in complete sentences. Diagnostics I reviewed the imaging studies and agree with the interpretation as recorded. I reviewed the pertinent laboratory data and diagnostic data. ASSESSMENT / PLAN In Summary, Ms. 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 ?? Plan for today (01/23/2022): - Continue working with therapies - Will hold off on additional images and increasing dexamethasone - Will discuss with the patient initiation of gabapentin 300mg QHS with the patient to help with headaches and sleep. - Will remove sutures tomorrow ?? 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 Continue with PT, OT and SPONSORSHIP COORDINATOR to achieve goals as stated above -Pain control: Continue acetaminophen 1,000 mg PO q6h PRN. -Seizure ppx: Continue Keppra 1,000 mg PO BID. Will remain on this until ANDRESSA follow up. -Continue dexamethasone taper ?? #GERD -Continue pantoprazole 40 mg po QAM ?? FULL CODE as discussed with patient. Diet: Regular. Sutures/Amy: can be removed 14 days post-operatively (around 01/24) DVT prophylaxis: Lovenox Bowel: Senna, MiraLAX and suppository as needed. Bladder: Currently voiding Disposition: 01/25; goal to home Benjamín Warner MD PGY-2, PM&R Please contact the brain rehabilitation service pager [phone] with questions or concerns. Associated attestation - Michael De Los Santos M.D., Ph.D. - 01/23/2022 1:16 PM CDT I saw and evaluated the patient, participating in the hill portions of the service. I reviewed the resident/fellow???s note. I agree with the resident/fellow???s findings and plan. Ms. Cedillo is capable of participating in rehabilitation. She continues to progress towards functional independence in the area(s) of mobility, self-care, communication, and cognition and will benefitfrom ongoing intensive inpatient rehabilitation. I have met with the patient and participated in her in room team rounds. Ms. Cedillo appeared comfortable and stated that her headache had resolved with the additional dose dexamethasone. Her aphasia makes it difficult to assess subtle details but, to me, she typically states her headache is on the mild side. Issues of last night noted. Ms. Cedillo is participating well in therapy. Speech notes that her aphasia persists and is limiting but that Ms. Cedillo does better live with list than with verbal instructions. Also noted are difficulties with word finding, impaired memory, and easy distractibility. OT notes that self- talk helps her with completion of more difficult and complex tasks. BP 140/87 (BP Location: Left arm;Upper, Patient Position: Sitting) Pulse 71 Temp 36.9 ??C (Oral) Resp 18 Ht 169 cm Wt 92.3 kg LMP 01/07/2022 (Approximate) SpO2 98% BMI 32.32 kg/m?? No results found for this or any previous visit (from the past 24 hour(s)). Intake/Output Summary (Last 24 hours) at 01/23/2022 1310 Last data filed at 01/23/2022 1243 Gross per 24 hour Intake 1510 ml Output -- Net 1510 ml Wt 92.3 kg Ms. Cedillo is doing well in therapy. She is neurologically stable and functionally improving. We will try the addition of gabapentin for her headaches and proceed with the therapy program. Michael De Los Santos M.D., Ph.D. PPE use information for possible contact monitoring: PPE used during visit: Provider was wearing a mask and eye protection throughout entire session. Patient was NOT wearing mask during entire session. Lexi Syed P.T., D.P.T. - 01/23/2022 7:38 AM CDT Physical Therapy Rehabilitation [facility] Inpatient Treatment SUBJECTIVE Patient's Name: Mia Richardson Reason for Referral: PT Evaluate and treat - Brain IRF Medical Diagnosis: 1. Tumor Brain (HCC) 2. Aphasia 3. Deficit Cognitive Communication 4. Abnormal Gait Non Orthopedic 5. Decline Functional Status 6. Unsteadiness Non Orthopedic 7. 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 [place]zel with ADL and IADL tasks. Precautions Other Precautions: Fall risk. Decreased safety awareness. R visual field cut. R inattention. Communication deficit (aphasia). Fall Risk (65 and older) Fall in the last 12 months: No Are you fearful of falling?: Yes OBJECTIVE Pain: did not quantify PT Neuromuscular Re-education Neuromuscular Re-education 1: Agility ladder preformed for motor planning and sequencing, as well asbalance and coordination. As patient demonstrated progressing accuracy and speed, added cognitive task of categorical naming and arithmitic. Stepping pattern: 2 forward, 1 back. 2 sideways, 1 back Neuromuscular Re-education 2: Patient performing step up to high knee, tandem walking with emphasis on relaxed posture out of high guard, and single leg hip hinge for balance training and postural control. Patient/Family Education: plan of care and progressions Education Provided to: Mia Learner's Response: Requires continued education At the end of today's therapy session patient was left seated in bedside chair with an appropriate call light within reach. Patient's needs and questions addressed during today's session. Contact monitoring: PPE used during therapy: Therapist was wearing the following PPE throughout entire session: surgicalmask and eye protection Patient was wearing a mask during therapy session: yes Assessment Patient continues to improve with dual and multitasking, however continues to require increased timeand intermittent cues to remember sequence. Working memory with verbal instructions remain impaired,however she was able to navigate form room to gym without cuing or errors today. Balance is safe foroverground mobility, however remains below baseline. Barriers to Discharge Home: Current functional status, Safety concerns, Fall risk Comorbid Conditions: Cancer, Obesity Personal Factors: Visual impairment, Safety awareness, Communication deficit, Balance impairment Discharge Therapy Needs - PT: Ongoing skilled physical therapy Level of Care Needed - PT: Physical assistance needed, Cognitive assistance needed Functional Goals and Timeframes: PT Goal #1: Patient will demonstrate independence with bed mobility by discharge to allow for improved independence with functional mobility. PT Goal #2: Patient will demonstrate independence with fzv-au-gahod transfers by discharge to allow for improved safety with functional mobility. PT Goal #3: Patient will demonstrate independence with ambulation and least restrictive device to allow for improved independence with functional mobility. PT Goal #4: Patient will demonstrate ability to ascend/descend 10 stairs with single handrail independently to allow for safe discharge. Progress: Progressing toward goals Plan Patient agrees with the plan of care and goals. Treatment Plan: PT Frequency: 6 times per week PT Amount: 2 visits per day PT Inpatient Duration : Until goals are met or hospital discharge Plan: Plan of care initiated PT Plan Comments: attention to right environment, path finding, high level balance Treatment interventions may include: Treatment/Interventions: Therapeutic exercise, Therapeutic functional activity, Neuromuscular re-education, Gait training Time Spent with Patient Therapeutic Interventions Neuromuscular Re-Education (min): 45 min Therapeutic Activity (min): 15 min Time Tracking Total Timed Units (min): 60 min Total Treatment Time (min): 60 min PT Individual : 60 Minutes Lexi Syed P.T., D.P.T. Clarisa Rodrigeuz - 01/22/2022 12:36 PM CDT Occupational Therapy Rehabilitation [facility] Inpatient Progress Note SUBJECTIVE Patient's Name: Mia Richardson Reason for Referral: OT Treatment; IRF Brain Unit Medical Diagnosis: 1. Tumor Brain (HCC) 2. Aphasia 3. Deficit Cognitive Communication 4. Abnormal Gait Non Orthopedic 5. Decline Functional Status 6. Unsteadiness Non Orthopedic 7. 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 Wetzel with ADL and IADL tasks. To initiate asking questions to medical team and to family members. Patient Comments: When patient was completing baking activity she stated, this is different. She further indicated it took longer to complete tasks she once completed with ease. Precautions Other Precautions: Fall risk. Decreased safety awareness. R visual field cut. R inattention. Communication deficit (aphasia). Fall Risk (65 and older) Fall in the last 12 months: No Are you fearful of falling?: Yes OBJECTIVE Patient met seated in bedside chair upon arrival. Pain: 10/04 IADL's Health Management Activity Health Management: Medication management Health Management Delivery: Educated Health Management Level of Assistance: Supervision/Set-up Health Management: Patient completed medication management activity seated at table sorting 3 separate pill bottles. Pill organizers were labeled, morning, afternoon, and evening. Patient completed accurately hesitating on the 3rd set of instructions which read, take pill every 4 hours as needed. Patient successfully reasoned through this scenario by implementing the self-talk strategy. Discussed alternative methods to aid in medication management at home such as keeping the medicine in the same place to remember to fill them or keeping an organizer to know when the medicine has been taken that day. Meal Preparation Meal Prep Activity: Organizing task, Gathering items for task, Operating the oven, Serving food ontodishes (Operating coffee pot) Meal Prep Delivery: Educated, Modified/Adapted, Instructed Meal Prep Level of Assistance: Supervision/Set-up Meal Preparation Comments: Patient completed meal preparation activity to combine brownie mix and bake into oven following written instructions on box. Patient demonstrated initiation of task and sequencing of steps by reading labels on cabinets to locate items needed. She searched for items in the [place] ropriate places such as eggs located in the refrigerator. During task performance, patient commented, this is different. Educated on the importance of providing increased time and non-distracting environment to complete occupational tasks at home such as meal preparation. Patient demonstrated good safety awareness utilizing the oven. She was noted to pause switching from one step to the other and stated it was difficult for her to remember what she had done previously and what comes next. Patient self-initiated referring to instructions on box to sequence remaining steps of activity. Patient instructed to implement the self-talk strategy to talk through each step as she was competing it to make a small pot of coffee. Her movements were noted to be slightly uncoordinated as she spilled the coffee when pouring. She was unable to recall ingredients requested for coffee and included milk but not sugar. She completed this task more quickly by implementing this strategy. When asked to reflect on her performance, patient stated it helped to talk through the steps aloud and that it was suprising howdifficult these tasks were that she had once completed with ease. Clinical observations noted patient became easily distracted by her own toughts during sequencing of task. Guion Test Guion Test is a symbol cancellation test that allows for a quantitative and qualitative assessment of visual inattention in the near extra personal space. If the patient has more than three omissions,then he/she is suspected of presenting with an attentional deficit. More severe deficits are suspected if more than six omissions occur. The patient's scanning strategy can be revealed by connecting the circled bells according to the order in which they were circled. Normally, an organized scanning strategy is demonstrated by a vertical or horizontal pattern. Clients with a deficit in attention will demonstrate a disorganized scanning pattern. Total number of bells circled: 34 (Maximum of 35 bells within 264 distracters) Number of left omissions: 0 Number of right omissions: 1 Realization time (minutes): 2 minutes and 5 seconds (The time just before prompt was given: Are yousure that all the bells are now circled?) Time taken to complete test (minutes): 2 minutes and 48 seconds Qualitative description of scanning pattern: Vertical Interpretation: Patient required verbal cue to implement scanning techniques during activity. Patient is experiencing right-sided inattention and benefits from ongoing cuing to scan towards right side. Assessment was administered today in an unstandardized format on the [employer] ([employer]), which impacts the assessment's validity. Team Conference Updates: Additional Team Conference Comments (OT): Mia is completing activities of daily living and instrumental activities of daily living with supervision assistance for safety. She benefits from visual scanning techniques due to her right visual field cut and she additionally benefits from one-step commands when sequencing activities. Patient plans to discharge home where patient reports her mother will be able to provide assistance as needed. No equipment recommendations at this time. Outpatient OT recommended to address [id number] and driving. Patient/Family Education: Taking cognitive breaks, external aids such as journal/calendar to assist with memory, visual scanning compensatory techniques Education Provided to: Mia Learner's Response: Requires cueing At the end of today's therapy session patient was left seated in bedside chair with an appropriate call light within reach. Patient's needs and questions addressed during today's session. Contact monitoring: PPE used during therapy: Therapist was wearing the following PPE throughout entire session: surgicalmask and eye protection Patient was wearing a mask during therapy session when outside hospital room. Additional Staff Present During Session: Muriel Cifuentes, CEC Assessment Mia's right-sided inattention, short-term memory deficits, right-sided visual field cut, and decreased divided attention limits her ability to perform instrumental activities of daily living such as meal preparation independently this date. She required verbal prompt to recall items needed for serving coffee. Her insight into how her deficits may impact her performance indicates potential to improvein rehabilitation. She has demonstrated progress during medication management reading instructions of 3 separate bill bottles and organizing accordingly. She benefits from increased time and self-talk strategy to complete functional tasks. Ongoing cuing required to implement strategies and to initiate use of strategies when multitasking and in a distracting environment. Patient is performing below functional baseline and requires ongoing skilled OT to address previous listed deficits to improve independence with ADL and IADL tasks. Barriers to Discharge Home: Current functional status, Safety concerns, Fall risk Comorbid Conditions: Cancer Personal Factors: Visual impairment, Safety awareness, Communication deficit, Balance impairment Discharge Therapy Needs - OT: Ongoing skilled occupational therapy Level of Care Needed - OT: Assistance with toilet/shower transfers, Assistance with medication set up/administration, Assistance with showering/bathing, Assistance with dressing, Assistance with meal preparation, Assistance with financial operations clerk, Assistance with transportation, Assistance with hous ekeeping, Assistance with shopping, Cognitive assistance needed Recommended Adaptive Equipment - OT: Other (Comment) (Ongoing assessment) Functional Goals and Timeframes: OT Goal #1: By next ITC, patient will verbalize understanding of new medications and self-identify cognitive strategy to recall and organize medications at home. OT Goal #1 Status: Progressing (Completed medication management from written instructions without verbal prompting. Benefits from increased time and self- talk strategy) OT Goal #2: By next ITC, patient will generate 2-3 cognitive strategies to improve performance and safety during instrumental activities of daily living, including finances, appointment scheduling, laundry, and meal planning. OT Goal #2 Status: Progressing (Created list of cognitive strategies implemented during meal preparation task to promote carryover) OT Goal #3: By discharge, patient will complete multiple errands task with supervision assistance without verbal cuing to implement visual scanning techniques when navigating environment. OT Goal #3 Status: Progressing (Ongoing cues required to implement visual scanning techniques consistently) OT Goal #4: By discharge, patient will perform dressing routine with modified independence without verbal cuing for sequencing steps of task. OT Goal #4 Status: Progressing (Patient donned mask x2 when exiting hospital room without verbal cue.) Progress: Progressing toward goals Plan Patient agrees with the plan of care and goals. Treatment Plan: OT Frequency: 6 times per week OT Amount: 2 visits per day OT Inpatient Duration : Until goals are met or hospital discharge Plan: Continue with current plan OT Plan Comments: Functional cognitive tasks and further cognitive assessments, further vision interventions for right visual field cut, implementation of cognitive strategies, instrumental activities of daily living including meal preparation, laundry, household management, medication management Treatment interventions may include: Treatment Interventions: Therapeutic functional activity, Neuromuscular re- education, Self-care/homemanagement, Cognitive skills training, Therapeutic exercise, Therapeutic modalities as needed, Orthosis [id number], Manual therapy Time Spent with Patient Therapeutic Interventions Home Management Training (min): 90 min Time Tracking Total Timed Units (min): 90 min Total Treatment Time (min): 90 min OT Individual: 90 Minutes KITA Mcgee Associated attestation - Muriel Cifuentes M.S., O.T. - 01/23/2022 1:05 PM CDT This therapist has reviewed all documentation and supervised today???s session. The therapist agreeswith the plan developed in collaboration with the patient. Zora Tejada, Pharm.D., R.Ph. - 01/22/2022 12:18 PM CDT Pharmacist Progress Note Reason for admission: 51 y.o. female s/p left temporoparietal crani on 01/10 for resection of Grade 3astrocytoma is now being admitted to the inpatient rehabilitation unit on 01/17/2022 ?? PMH: Astrocytoma, HTN, Psoriasis, Herniated Disc Lumbar OBJECTIVE Home medications: ?? Held: methocarbamol, oxycodone, multivitamin, temozolomide, turmeric, vitamin B complex ?? Changed: none Patient own medications: none Prophylaxis: enoxaparin, pantoprazole while on dexamethasone ASSESSMENT / PLAN 1. Neuro/CV: dexamethasone taper (2 mg q6h thru 01/22 then 1 mg q6h thru 01/26), Keppra 1000 mg bid 2. GI: bisacodyl prn, miralax prn, senokot prn. Last BM 01/20 Changes to medications anticipated at discharge: TBD Zora Tejada, PharmSanjuanitaDSanjuanita, R.Ph. Michael De Los Santos M.D., Ph.D. - 01/22/2022 11:30 AM CDT Physical Medicine and Rehabilitation Interdisciplinary Team Conference [facility] 01/22/2022 11:30 AM CDT Patient Name: Mia Richardson Admit Date/Time: 01/17/2022 11:55 AM Date of : 1970 Sex: Female Room/Bed: 254/254-P Etiologic Diagnosis: Tumor Brain (HCC) Impairment Group: Brain Dysfunction Payor: Payor: [facility] / Plan: [employer] [place] / Product Type: PPO / Anticipated Discharge Date: 01/25/22 Rehab Team Conference Participation Physician Grapple Yarder Operator: Dr. Michael De Los Santos Senior Resident Present: Dr. Farhat Hernandez Nursing Grapple Yarder Operator: Logan Irizarry RN CM/SW Grapple Yarder Operator: Twan Montero RN CM/SW Second Grapple Yarder Operator: Camilla Velazquez PROCESSING REP PT Grapple Yarder Operator: Lexi Syed, PT OT Grapple Yarder Operator: KITA Mcgee and Muriel Cifuentes OT SPONSORSHIP COORDINATOR Grapple Yarder Operator: Clover Yoder [facility]-SPONSORSHIP COORDINATOR OT Goal #1: By next ITC, patient will verbalize understanding of new medications and self-identify cognitive strategy to recall and organize medications at home. (01/20: completed medication organization task without prompt) OT Goal #2: By next ITC, patient will generate 2-3 cognitives strategies to improve performance and safety during instrumental activities of daily living, including finances, appointment scheduling, laundry, and meal planning. (01/20: achieved simple meal prep with supervision) OT Goal #3: By discharge, patient will complete multiple errands task with supervision assistance without verbal cuing to implement visual scanning techniques when navigating environment. OT Goal #4: By discharge, patient will perform dressing routine with modified independence without verbal cuing for sequencing steps of task. PT Goal #1: Patient will demonstrate independence with bed mobility by discharge to allow for improved independence with functional mobility. PT Goal #2: Patient will demonstrate independence with joz-hi-fqlih transfers by discharge to allow for improved safety with functional mobility. PT Goal #3: Patient will demonstrate independence with ambulation and least restrictive device to allow for improved independence with functional mobility. PT Goal #4: Patient will demonstrate ability to ascend/descend 10 stairs with single handrail independently to allow for safe discharge. Cognition Short Term Goal 1: Mia will recall new information related to therapy, safety and routinewith strategy use in 80% of opportunities. Progress Toward Goals Additional Team Conference Comments (RN): Patient is continent of bowel and bladder. Minimal complaints of head pain managed with tylenol. Indepedent in room and bathroom. Additional Team Conference Comments (PT): Patient is independent with bed mobility, supervision assistance for pjk-hs-ponwk transfers and ambulation without assistive device due to mild instability as well as poor awareness of right side of environment. Supervision assistance using single hand rail for stairs with step over step pattern. Patient requires increased time to process commands and cues to maintain right-sided awareness. Additional Team Conference Comments (OT): Mia is completing activities of daily living and instrumental activities of daily living with supervision assistance for safety. She benefits from visual scanning techniques due to her right visual field cut and she additionally benefits from one-step commands when sequencing activities. Patient plans to discharge home where patient reports her mother will be able to provide assistance as needed. No equipment recommendations at this time. Outpatient OT recommended to address [id number] and driving. Education Provided (OT): Taking cognitive breaks, external aids such as journal/calendar to assist with memory, visual scanning compensatory techniques Additional Team Conference Comments (SPONSORSHIP COORDINATOR): Mia is demonstrating both a cognitive communication deficit and aphasia. She has difficulty recalling information and needs extra time to process through information. When word finding difficulties occur, she benefits from an unhurried approach to communic ate. Repetition of information is important for new learning. Education Provided (SPONSORSHIP COORDINATOR): Strategy training for both language and cognition has started. Mia responds best by having these written down in simple terms and posted for easy reference secondary to difficulty with recall. Discharge Equipment Recommended Adaptive Equipment - OT: Other (Comment) (Ongoing assessment) Patient / Family Goals The goals from interdisciplinary conference were discussed with patient, family. Discharge Planning Discharge Planning (Team Conference) Barriers To Discharge: Caregiver training/education Strengths: Support of immediate family, Attitude of self Anticipated Discharge Destination: Home or Self Care Assistance Recommended after Discharge: Other (Comment) (17/03 physical and cognitive supervision) Discharged Living With: Family and or relatives Support Systems: Parent, Significant other Recommended Discharge Services: Occupational Therapy, Physical Therapy, Speech Therapy Does the patient need discharge transport arranged?: No Physician Summary The team discussed the discharge date, destination and assistance required after discharge, and reviewed the written plan of care. The patient's progress towards rehabilitation goals and associated barriers to discharge were discussed related to activities of daily living, cognition, communication, medical issues, mobility, follow-up after discharge, equipment, education, discharge planning, nutrition / hydration, pain management, psychosocial issues, safety, transfers. . RDT Radha aDvenport M.D. - 01/22/2022 10:31 AM CDT Brain Rehabilitation Medicine Fellow ITC Progress Note Ms. Cedillo was seen in her room this morning making her bed. She is doing well this morning and has no concerns. OBJECTIVE PHYSICAL EXAMINATION General Appearance: Well developed, no acute distress. Skin: No rashes, lesions, or ecchymoses noted. Lungs: Normal respiratory effort. Extremities: Warm and well perfused, no edema noted. Neuro Exam: awake, alert, cognitive and speech impairments, full strength in BUEs, making her bed Interdisciplinary team conference update: I participated in the patient's interdisciplinary team conference today along with my colleagues from physical therapy, occupational therapy, speech and language pathology, nursing, nursing care coordination, social work, and rehabilitation physician staff. - In PT: Mobility is good, but balance is still impaired compared to her baseline. Cognition, pathfinding, working memory, and attention are impaired as it relates to her mobility. - In OT: Supervision with all ADLs and iADLs, especially novel tasks. Benefits from one step commands. Also noted a right visual field cut and working on scanning. She benefits from increased time in an environment with fewer distractions. - In SPONSORSHIP COORDINATOR: Language and cognitive impairments with deficits in memory and language. Easy distractionand her anxiety are impairing her attention. She also has very disorganized thoughts and some word finding. ASSESSMENT / PLAN #1 Malignant Neoplasm Of Brain (HCC) #2 Tumor Brain (HCC) Medical Updates: She is doing well on her current medication regimen and is not having side effects from dexamethasone taper or Keppra. She is having headaches managed with tylenol, but worsened by her and her mother's anxiety. The team will watch the headaches as she continues her dexamethasone taper to make sure these are not connected. DME Need: None noted at this time Expected Supervision upon discharge: 17/03 cognitive supervision Expected Date of Discharge: 01/25 The patient requires, and is capable of participating in, an intensive and coordinated interdisciplinary acute inpatient rehabilitation program. The patient requires rehabilitation physician visits to coordinate rehabilitation care and monitor medical conditions. Risks for medical complication include seizure, cerebral edema, and medication side effects . The patient's rehabilitation goals and medical complexity cannot adequately be managed in a less intensive setting. PPE used during visit: Provider was wearing a mask throughout entire session. Patient was NOT wearing mask during entire session. Carmela Davenport M.D. Fellow, Brain Injury Medicine Physical Medicine & Rehabilitation Clover Yoder M.A., [facility]-SPONSORSHIP COORDINATOR - 01/22/2022 10:30 AM CDT Speech Language Pathology Communication/Cognitive Treatment- Inpatient Rehabilitation Unit Session Type: Treatment Length of AM Session: 30 minutes Length of PM Session: 30 minutes SILVANO Bellamy is seen in her private room for therapy today. No family is present. Pain: No pain reported. General Family/Caregiver Present: No Arousal/Alertness: Appropriate responses to stimuli Behavior: Alert, Cooperative, Distractible, Pleasant mood OBJECTIVE This note includes data from two seperate and distinct sessions on this date. Please see flowsheet for individual session details. Objective Session Data Cognition Overall Cognitive Status: Impaired Arousal/Alertness: Appropriate responses to stimuli Attention: Impaired Sustained: Mild Alternating: Moderate Memory: Impaired (Writing down times of therapy in personal marketing planner) Orientation: Oriented X4 Problem Solving: Impaired (Overcomplicates and difficulty shifting attention) Impulsive: Mildly impulsive Executive Functioning: Impaired Planning: Moderate Organization: Moderate Assessment This morning, Mia is present for therapy addressing cognition and language. She reports talking toboyfriend and son over the weekend. She found these interactions largely successful. Mia often overcomplicates tasks which was evidenced during a dual cognitive/language task when she tried to come up with two descriptions/words for each stimuli. She often repeated the question or stimuli back to clinician. My memory is garbage right now. She also often states the question back to clinician when clinician poses it to her to ensure she has it accurate. The Cognitive Linguistic Quick Test (CLQT) was also completed in entirety during this session to assess cognitive functioning in the areas of attention, memory, executive function, visuospatial skills,and language. Results are listed in the table below. Domain Score Severity Attention 194 WNL Memory 151 Mild imp Executive Function 25 WNL Language 28 Mild imp Visuospatial Skills 94 WNL Clock Drawing 8 Moderate imp Composite 3 Mild imp This afternoon, clinician provides education on simple language and cognitive strategies that can beused in routine, therapy and conversation. These were posted in her room and therapy team notified of incorporating into their therapy sessions. What helps my brain? 1-Allow myself extra time to think and talk 2-Ask for repetition of new information 3-Break down tasks into SMALL steps 4-Write down NEW information so I can remember it later 5-Keep it simple when talking 6-Use self talk to stay focused 7-Reduce distractions Ongoing Speech therapy is necessary at this time as Mia is presenting with both an aphasia and cognitive communication deficit in the setting of tumor resection for grade 3 astrocytoma, IDH wildtype.She is responding positively to therapy and cueing, but does not recognize all errors on her own. Contact Monitoring: Clinician was wearing the following PPE for the duration of today's session(s): surgical mask and eye protection Diagnosis: Impressions Consistent with a diagnosis of: Non-Aphasic Cognitive Communication Disorder, Aphasia Aphasia: Moderate Non-Aphasic Cognitive Communication Disorder: Moderate Goals: Cognition Short Term Goal 1 Cognition Short Term Goal 1: Mia will recall new information related to therapy, safety and routinewith strategy use in 80% of opportunities. Cognition Short Term Goal 1 Progress Toward Goal: Progress toward goal completion: continue on target Auditory Comprehension Short Term Goal 1 Auditory Comprehension Short Term Goal 1: Patient will follow two and multistep commands with extra time in 80% of opportunities. Auditory Comprehension Short Term Goal 1 Progress Toward Goal: Progress toward goal completion: continue on target Verbal Expression Short Term Goal 1 Verbal Expression Short Term Goal 1: Patient will answer basic questions related to therapy and routine with increased time with 100% accuracy. Verbal Expression Short Term Goal 1 Progress Toward Goal: Progress toward goal completion: continue on target Verbal Expression Short Term Goal 2 Verbal Expression Short Term Goal 2: Mia will be able to express more complex and abstract information as it relates to therapy, routine and conversation through strategy use in 80% of opportunities. Verbal Expression Short Term Goal 2 Progress Toward Goal: Progress toward goal completion: continue on target Plan Discharge Location: Unknown SPONSORSHIP COORDINATOR Ongoing Services: Ongoing formal Speech Pathology services Frequency of Treatment: 1-2x/5-6 days per week Duration of Treatment: duration of rehab stay Rehab Potential: Good Lexi Syed P.Stanford, D.P.T. - 01/22/2022 7:52 AM CDT Physical Therapy Rehabilitation [facility] Inpatient Treatment Patient seen for physical therapy from 10:00-10:30AM and from 4:00 to 5:00PM. SUBJECTIVE Patient's Name: Mia Richardson Reason for Referral: PT Evaluate and treat - Brain IRF Medical Diagnosis: 1. Tumor Brain (HCC) 2. Aphasia 3. Deficit Cognitive Communication 4. Abnormal Gait Non Orthopedic 5. Decline Functional Status 6. Unsteadiness Non Orthopedic 7. 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 Wetzel with ADL and IADL tasks. Precautions Other Precautions: Fall risk. Decreased safety awareness. R visual field cut. R inattention. Communication deficit (aphasia). Fall Risk (65 and older) Fall in the last 12 months: No Are you fearful of falling?: Yes OBJECTIVE Pain: Patient denying pain throughout session Vitals: Not indicated at this time Sit to Stand Transfers # of Assistants: 1 Level of Assistance: Independent Assessment/Delivery: Assessed Stand to Sit Transfers # of Assistants: 1 Level of Assistance: Independent Assessment/Delivery: Assessed Bed, Chair, Wheelchair Transfers # of Assistants: 1 Level of Assistance: Independent Assessment/Delivery: Assessed Gait Assessment/Training Distance (m): 200 m Surface: Even, Uneven, Grass Device: Gait belt # of Assistants: 1 Level of Assistance: Supervision/Set-up Quality/Pattern: Decreased heel strike, Decreased toe off Cueing Provided: Verbal Training/Intervention: Continued path finding from room to gym and back, as well as following signs and verbal directions to go outside during afternoon session, in order to improve visual scanning, visouspatial orientation and navigation, and working memory. Continues to become short of breath with longer distances and requires min to moderate verbal cuing for accurate directions. Response: does fatigue quickly compared to her described baseline PT Neuromuscular Re-education Neuromuscular Re-education 1: In AM: balance exercises performed to assess and progress dynamic postural control. Tandem walking forward/backward and single leg stance 30 each leg (more challenging onright, requiring several taps on wall with arm to stabilize) Neuromuscular Re-education 2: In PM: pathfinding to gym for balance and dual task activities. Patient performing cone taps to cones on floor placed around her in a semicircular formation, tapping specific cone with specific foot (progressing to hands and feet, starting with 1 step commands, progressing to 3 step commands with 4 limbs (75% accuracy) Neuromuscular Re-education 3: Scavenger myers for 5 items: boat in painting, sofa, jigsaw puzzle, tissue box, and fire extinguisher. Patient writing down 5 items and referring to list throughout. Fair to good visual scanning in full field, occasionally missing items on write. Verbal instructions provided to return to the gym when she had located all the items, as well as a verbal hint on the location of the jigsaw puzzle. Patient unable to remember verbal instructions without max verbal cues. Equipment Use Nu Step Comments: Pt performing 10 minutes on NuStep using bilateral lower and upper extremities forneural priming to improve cortical blood flow, facilitate reciprocal stepping pattern required for normal gait, and promote release of neurochemicals involved in neuroplasticity, neuroprotection, and neurogenesis. Cuing to keep spm at 70 or greater to produce appropriate intensity needed to facilitatephysiologic adaptations. Patient/Family Education: central fatigue, balancing rest and activity Education Provided to: Mia Learner's Response: Requires continued education At the end of today's therapy session patient was left seated in bedside chair with an appropriate call light within reach. Patient's needs and questions addressed during today's session. Contact monitoring: PPE used during therapy: Therapist was wearing the following PPE throughout entire session: surgicalmask and eye protection Patient was wearing a mask during therapy session: yes Assessment Patient is continuing to progress with functional mobility. She did not run into any items on her right during today's session, however she does continue to require intermittent verbal cuing for pathfinding to areas like the gym, which she has frequented over the last several days. Dynamic balance is safe for overground ambulation, however remains below prior level, as patient reports she was previously able to ice skate backward on one leg successfully. She did well following written instructions during [facility] myers, however struggle to recall verbal instructions. Plan of care will continue to address high level balance deficits, path finding, sequencing, dual and multi tasking, working memory,and caregiver training with her mom. Barriers to Discharge Home: Current functional status, Safety concerns, Fall risk Comorbid Conditions: Cancer, Obesity Personal Factors: Visual impairment, Safety awareness, Communication deficit, Balance impairment Discharge Therapy Needs - PT: Ongoing skilled physical therapy Level of Care Needed - PT: Physical assistance needed, Cognitive assistance needed Functional Goals and Timeframes: PT Goal #1: Patient will demonstrate independence with bed mobility by discharge to allow for improved independence with functional mobility. PT Goal #2: Patient will demonstrate independence with [id number] transfers by discharge to allow for improved safety with functional mobility. PT Goal #3: Patient will demonstrate independence with ambulation and least restrictive device to allow for improved independence with functional mobility. PT Goal #4: Patient will demonstrate ability to ascend/descend 10 stairs with single handrail independently to allow for safe discharge. Progress: Progressing toward goals Plan Patient agrees with the plan of care and goals. Treatment Plan: PT Frequency: 6 times per week PT Amount: 2 visits per day PT Inpatient Duration : Until goals are met or hospital discharge Plan: Plan of care initiated PT Plan Comments: attention to right environment, path finding, high level balance Treatment interventions may include: Treatment/Interventions: Therapeutic exercise, Therapeutic functional activity, Neuromuscular re-education, Gait training Time Spent with Patient Therapeutic Interventions Gait Training (min): 15 min Neuromuscular Re-Education (min): 45 min Therapeutic Activity (min): 15 min Therapeutic Exercise (min): 15 min Time Tracking Total Timed Units (min): 90 min Total Treatment Time (min): 90 min Lexi Syed P.T., Pillo.P.TSanjuanita Benjamín Warner M.D. - 01/22/2022 7:07 AM CDT SUBJECTIVE Ms. Cedillo is 51 y.o. 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 I visited with the patient who had her mother on speaker phone this morning. They were both anxious regarding her headaches. The headaches have typically been responsive to tylenol, but yesterday she reports her headache returned quicker than normal after tylenol. At first the patient told me her headaches were a 2-3 out of 10 in severity, but reconsidered this number after her mother questioned hereunderstanding of the pain scale. Her mother asked if her pain was ever a 6,7 or 10 out of 10? and after hearing this stated that sometimes her pain gets that high. However, currently the pain is verymild. They were also concerned that yesterday her mood was different in that she was more emotional. She did not have any therapy yesterday. She reports that yesterday even though she did not move as much she felt generally weaker. We discussed that we would see how she moves with therapy today and assess her strength and functionality. I have reviewed the current medication list. OBJECTIVE Temperature: [36.6 ??C-37 ??C] 37 ??C Resp Rate: [16-17] 16 Blood Pressure: (126-154)/(83-93) 126/83 SpO2: [99 %-100 %] 99 % Last Stool Occurrence: 1 (01/20/22 0900 : Gilberto Waters) Intake/Output Summary (Last 24 hours) at 01/22/2022 0707 Last data filed at 01/21/2022 1800 Gross per 24 hour Intake 1482 ml Output -- Net 1482 ml Bowel Incontinence: No (01/20/22 0900 : Gilberto Waters) Unmeasured Urine Occurrence: 1 (01/20/22 2100 : Clarice Martinez, R.N.) Urinary Incontinence: No (01/19/221955 : Janeth Ovalle, R.N.) Physical Exam: General: Well-appearing, in no acute distress. Seen in the apartment gym with OT. Patient was makingeggs and toast with no cuing or physical assistance. Able to converse while doing these tasks. HEENT: Mucous membranes moist Eyes: No scleral icterus, conjunctiva clear Heart: hemodynamically stable Lungs: breathing comfortably on room air Skin: Dry and intact, no acute lesions noted Neuro: Alert and oriented, appropriate mood and affect. Expressive aphasia with paraphrasic errors, but speaking in complete sentences. Diagnostics I reviewed the imaging studies and agree with the interpretation as recorded. I reviewed the pertinent laboratory data and diagnostic data. ASSESSMENT / PLAN In Summary, Ms. 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 ?? Plan for today (01/22/2022): - Continue working with therapies - Will monitor throughout therapy today to see if she has any decreases in her functionality ?? 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 Continue with PT, OT and SPONSORSHIP COORDINATOR to achieve goals as stated above -Pain control: Continue acetaminophen 1,000 mg PO q6h PRN. -Seizure ppx: Continue Keppra 1,000 mg PO BID. Will remain on this until ANDRESSA follow up. -Continue dexamethasone taper ?? #GERD -Continue pantoprazole 40 mg po QAM ?? FULL CODE as discussed with patient. Diet: Regular. Sutures/Amy: can be removed 14 days post-operatively (around 01/24) DVT prophylaxis: Lovenox Bowel: Senna, MiraLAX and suppository as needed. Bladder: Currently voiding Disposition: ELOS 10 days; goal to home Benjamín Warner MD PGY-2, PM&R Please contact the brain rehabilitation service pager [phone] with questions or concerns. Associated attestation - Michael De Los Santos M.D., Ph.D. - 01/22/2022 3:05 PM CDT I saw and evaluated the patient, participating in the hill portions of the service. I reviewed the resident/fellow???s note. I agree with the resident/fellow???s findings and plan. Ms. Cedillo is capable of participating in rehabilitation. She continues to progress towards functional independence in the area(s) of mobility, self-care, communication, and cognition and will benefitfrom ongoing intensive inpatient rehabilitation. I have met with the patient, participated in her plan of care conference, and observed her in physical therapy. Overall Ms. Cedillo is doing well. She reports her headache as being mild, on the order of 1/10, although her mother is concerned that it is more severe. Assistance and cues. Cognitively she is improving in terms of scanning to the right but her CLQT shows difficulties with memory and language use. Also noted was easy distractibility and some difficulty with word finding. Bowel and bladder are continent. BP (!) 154/105 (BP Location: Left arm;Upper, Patient Position: Sitting) Pulse 67 Temp 36.7 ??C(Oral) Resp 16 Ht 169 cm Wt 92.3 kg LMP 01/07/2022 (Approximate) SpO2 100% BMI 32.32 kg/m?? Recent Results (from the past 24 hour(s)) Basic Metabolic Panel Collection Time: 01/22/22 6:48 AM Result Value Potassium, S 5.1 Sodium, S 137 Chloride, S 100 Bicarbonate, S 28 Anion Gap 9 BUN (Blood Urea Nitrogen), S 17 Creatinine, S 0.71 eGFR-Non Black/ >90 eGFR-Black/ >90 Calcium, Total, S 9.4 Glucose, S 100 Intake/Output Summary (Last 24 hours) at 01/22/2022 1504 Last data filed at 01/22/2022 1200 Gross per 24 hour Intake 1295 ml Output -- Net 1295 ml Wt 92.3 kg Ms. Cedillo is doing well. We will continue with her program and progress as possible. Michael De Los Santos M.D., Ph.D. PPE use information for possible contact monitoring: PPE used during visit: Provider was wearing a mask and eye protection throughout entire session. Patient was NOT wearing mask during entire session. Benjamín Warner M.D. - 01/21/2022 8:31 AM CDT SUBJECTIVE Ms. Cedillo is 51 y.o. 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 No acute events over the weekend. Patient reports that therapies are going very well and she is very pleased that she is now independent in the room. She has no new questions or concerns for me this morning. She is excited for day off of therapy. I have reviewed the current medication list. OBJECTIVE Temperature: [36.5 ??C-37 ??C] 36.5 ??C Resp Rate: [16-18] 16 Blood Pressure: (123-132)/(83-92) 132/87 SpO2: [98 %-100 %] 100 % Weight: [92.3 kg] 92.3 kg BMI (Calculated): [32.3 kg/m??] 32.3 kg/m?? Last Stool Occurrence: 1 (01/20/22 0900 : Gilberto Waters) Intake/Output Summary (Last 24 hours) at 01/21/2022 0831 Last data filed at 01/20/2022 1400 Gross per 24 hour Intake 1100 ml Output 1500 ml Net -400 ml Bowel Incontinence: No (01/20/22 0900 : Gilberto Waters) Unmeasured Urine Occurrence: 1 (01/20/22 2100 : Clarice Martinez, R.N.) Urinary Incontinence: No (01/19/221955 : Peerless, Janeth L, R.N.) Physical Exam: General: Well-appearing, in no acute distress. Seen in the apartment gym with OT. Patient was makingeggs and toast with no cuing or physical assistance. Able to converse while doing these tasks. HEENT: Mucous membranes moist Eyes: No scleral icterus, conjunctiva clear Heart: hemodynamically stable Lungs: breathing comfortably on room air Skin: Dry and intact, no acute lesions noted Neuro: Alert and oriented, appropriate mood and affect. Expressive aphasia with paraphrasic errors, but speaking in complete sentences. Diagnostics I reviewed the imaging studies and agree with the interpretation as recorded. I reviewed the pertinent laboratory data and diagnostic data. ASSESSMENT / PLAN In Summary, Ms. 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 ?? Plan for today (01/21/2022): - Continue working with therapies ?? 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 Continue with PT, OT and SPONSORSHIP COORDINATOR to achieve goals as stated above -Pain control: Continue acetaminophen 1,000 mg PO q6h PRN. -Seizure ppx: Continue Keppra 1,000 mg PO BID. Will remain on this until ANDRESSA follow up. -Continue dexamethasone taper ?? #GERD -Continue pantoprazole 40 mg po QAM ?? FULL CODE as discussed with patient. Diet: Regular. Sutures/Amy: can be removed 14 days post-operatively (around 01/24) DVT prophylaxis: Lovenox Bowel: Senna, MiraLAX and suppository as needed. Bladder: Currently voiding Disposition: ELOS 10 days; goal to home Benjamín Warner MD PGY-2, PM&R Please contact the brain rehabilitation service pager [phone] with questions or concerns. Sweetie Landaverde M.S., O.T. - 01/20/2022 8:51 AM CDT Occupational Therapy Rehabilitation [facility] Inpatient Progress Note SUBJECTIVE Patient's Name: Mia Richardson Reason for Referral: OT Evaluate and Treatment; IRF Brain Unit Medical Diagnosis: 1. Tumor Brain (HCC) 2. Aphasia 3. Deficit Cognitive Communication 4. Abnormal Gait Non Orthopedic 5. Decline Functional Status 6. Unsteadiness Non Orthopedic History of Present Illness: s/p left temporoparietal crani for resection of Grade 3 astrocytoma Onset Date: 01/09/22 Patient/Caregiver Goals: Return to home. Wetzel with ADL and IADL tasks. To initiate asking questions to medical team and to family members. Patient Comments: Patient motivated and agreeable to OT. Precautions Other Precautions: Fall risk. Decreased safety awareness. R visual field cut. R inattention. Communication deficit (aphasia). Fall Risk (65 and older) Fall in the last 12 months: No Are you fearful of falling?: Yes OBJECTIVE Pain: No pain reported today. Vitals: Not indicated at this time Cognition Cognition Comments: Provided a Cognition Packet for brain stimulation in patient's room in-betweentherapies. Currently Used Cognitive Strategies: Calendar/marketing planner use, Use of assistive technology (i.e. smartphone), Making lists Cognitive Intervention: Functional cognitive activities, Generalizing cognitive strategies to functional tasks, Calendar/marketing planner use Cognitive Intervention Comments: Patient shared excitement that she has just started using her marketing planner again without feeling overwhelmed. Patient explained that she usually uses a marketing planner to schedule her personal and work life, supplemented by features of her smart phone (reminders, calendars, etc.). E ducated and encouraged patient to continue use of these strategies to offload the cognitive demands of new information. Continued education regarding self- advocacy of brain breaks to conserve energy and activity tolerance, such as low- stimulation environments, reduced distractions, and rest with eyes-closed. Home Management/Self-Cares Grooming Grooming Location: Standing at sink Grooming Delivery: Assessed Grooming Level of Assistance: Supervision/Set-up Grooming Comments: Oral hygiene and hand hygiene. UE Dressing UE Dressing Delivery: Assessed, Facilitated UE Dressing Items Included: overlay plastician shirt UE Dressing Level of Assistance: Supervision/Set-up UE Dressing Location: Standing LE Dressing LE Dressing Location: Standing, Chair LE Dressing Delivery: Assessed, Facilitated LE Dressing Items Included: Socks, Pants, Underwear/Adult incontinence briefs LE Dressing Level of Assistance: Supervision/Set-up ADL Comments ADL Comments: Patient demonstrated good functional balance to doff pajamas and don new outfit while primarily standing. Patient self-selected sitting to don shoes. IADL's Health Management Activity Health Management: Medication management Health Management Delivery: Assessed, Facilitated, Educated Health Management Level of Assistance: Supervision/Set-up Health Management: Facilitated medication management task to assess patient's ability to follow instructions, organize medications, and make executive decisions about frequency. Patient was able to follow each label's instructions without clarification or prompt. Therapist emphasized the need for assistance initially following discharge to establish a routine and cognitive strategies (pill box, reminders on patient's phone) to improve memory recall of new medications. Patient verbalized understanding. Meal Preparation Meal Prep Activity: Organizing task, Gathering items for task, Operating the stovetop, Serving food onto dishes, Washing dishes Meal Prep Delivery: Assessed, Facilitated Meal Prep Level of Assistance: Supervision/Set-up Meal Preparation Comments: Patient performed simple meal prep following therapist's marthabral instructions (Cook 2 eggs however you like with a piece of toast. Serve it on to a plate. Do the dishes when you're done.). Patient was able to initiate, sequence, and terminate task without prompts for recall. Patient demonstrated good safety awareness during task, double-checking which stove burner was on and making sure it was off when eggs were done. No physical assistance required this date. Kitchen Mobility Kitchen Mobility Task: Retrieving items-overhead, Retrieving items-below waist, Transporting items Kitchen Mobility Delivery: Assessed, Facilitated Kitchen Mobility Level of Assistance: Supervision/Set-up Therapeutic Activity Facilitated standing table-top activity (100 piece puzzle) to address visual scanning, planning/organization, attention, and activity tolerance. Patient was able to complete entire puzzle in 22 minuteswithout prompt or physical assistance. Patient did note that she frequently completes harder puzzlesat home with her family, and she was very surprised how hard it felt to do a puzzle today. When prompted, patient stated that she felt that she had difficulty recalling previously-seen pieces and to draw matches together, especially matching colors. Therapist praised patient on strategies used to compensate (e.g. looking at edge pieces, similarly-shaped pieces, finger-guide for visual scanning), and patient shared eagerness to continue using puzzles as therapy going forward. At the end of today's therapy session patient was left ambulating in room with nursing and family present with an appropriate call light within reach. Patient's needs and questions addressed during today's session. Contact monitoring: PPE used during therapy: Therapist was wearing the following PPE throughout entire session: surgicalmask and eye protection Patient was wearing a mask during therapy session: donned for therapy unit Assessment Patient is progressing with functional skills needed to perform activities of daily living. Today, patient was able to perform procedural tasks (simple meal prep, dressing, grooming) with supervision. From this therapist's perspective, patient is appropriate and safe to be independent in room and bathroom during this hospital encounter. Patient is requiring supervision during higher-level tasks due to R visual field cut, R environmental inattention, communication deficit (aphasia), unsteadiness, and decreased cognition. Patient's performance improves with frequent orientation and verbal instructions before starting a task. Recommending ongoing daily, skilled occupational therapy services to progress functional performance towards baseline and optimize safety during daily tasks. Barriers to Discharge Home: Current functional status, Safety concerns, Fall risk Comorbid Conditions: Cancer Personal Factors: Visual impairment, Safety awareness, Communication deficit, Balance impairment Discharge Therapy Needs - OT: Ongoing skilled occupational therapy Level of Care Needed - OT: Assistance with toilet/shower transfers, Assistance with medication set up/administration, Assistance with showering/bathing, Assistance with meal preparation, Assistance with financial operations clerk, Assistance with transportation, Assistance with housekeeping, Assistance with shopping, Cognitive assistance needed, Assistance with dressing Recommended Adaptive Equipment - OT: Other (Comment) (Ongoing assessment) Functional Goals and Timeframes: OT Goal #1: By next ITC, patient will verbalize understanding of new medications and self-identify cognitive strategy to recall and organize medications at home. (01/20: completed medication organization task without prompt) OT Goal #1 Status: Advanced (Goal not addressed this date.) OT Goal #2: By next ITC, patient will generate 2-3 cognitives strategies to improve performance and safety during instrumental activities of daily living, including finances, appointment scheduling, laundry, and meal planning. (01/20: achieved simple meal prep with supervision) OT Goal #2 Status: Advanced OT Goal #3: By discharge, patient will complete multiple errands task with supervision assistance without verbal cuing to implement visual scanning techniques when navigating environment. OT Goal #3 Status: Progressing (Patient provided education on visual scanning techniques and requires continued education to implement consistently.) OT Goal #4: By discharge, patient will perform dressing routine with modified independence without verbal cuing for sequencing steps of task. OT Goal #4 Status: Progressing (Patient required 2 direct verbal cues to obtain undergarments neededfor dressing this date.) Progress: Progressing toward goals Plan Patient agrees with the plan of care and goals. Treatment Plan: OT Frequency: 6 times per week OT Amount: 2 visits per day OT Inpatient Duration : Until goals are met or hospital discharge Plan: Continue with current plan OT Plan Comments: Functional cognitive tasks and further cognitive assessments, further vision interventions for right visual field cut, executive functioning as it relates to ADL performance, instrumental activities of daily living including meal preparation, laundry, household management Treatment interventions may include: Treatment Interventions: Therapeutic functional activity, Neuromuscular re- education, Self-care/homemanagement, Cognitive skills training, Therapeutic exercise, Therapeutic modalities as needed, Orthosis [id number], Manual therapy Time Spent with Patient Therapeutic Interventions Home Management Training (min): 60 min Therapeutic Activity (min): 30 min Time Tracking Total Timed Units (min): 90 min Total Treatment Time (min): 90 min OT Individual: 90 Minutes Sweetie Landaverde M.S., O.T. Elizabet Ochoa, P.T. - 01/20/2022 8:24 AM CDT Physical Therapy Rehabilitation [facility] Inpatient Treatment SUBJECTIVE Patient's Name: Mia Richardson Reason for Referral: PT Evaluate and treat - Brain IRF Medical Diagnosis: 1. Tumor Brain (HCC) 2. Aphasia 3. Deficit Cognitive Communication 4. Abnormal Gait Non Orthopedic 5. Decline Functional Status 6. Unsteadiness Non Orthopedic History of Present Illness: s/p left temporoparietal crani for resection of Grade 3 astrocytoma Onset Date: 01/09/22 Patient/Caregiver Goals: Return to home. Wetzel with ADL and IADL tasks. Patient Comments: doing well. in pm some slight dizziness. noted aphasia. patient asks questions to clarify directions. At times PT asks questions to clarify patients train of thought. Precautions Other Precautions: Fall risk. Decreased safety awareness. R visual field cut. R inattention. Communication deficit (aphasia). impaired cognition Fall Risk (65 and older) Fall in the last 12 months: No Are you fearful of falling?: Yes OBJECTIVE Pain: none Bed Mobility - Rolling Level of Assistance: Independent Bed Mobility - Supine to Sit Level of Assistance: Independent Bed Mobility - Sit to Supine Level of Assistance: Independent Sit to Stand Transfers Level of Assistance: Modified Independent Stand to Sit Transfers Level of Assistance: Modified independent Floor transfers: stand by assistance Gait Assessment/Training Distance (m): 200 m Surface: Even, Uneven, Incline, Ramp, Grass Device: Gait belt # of Assistants: 1 Level of Assistance: Supervision/Set-up Stability: good Assessment of Gait: reciprocal arm/leg swing. more confident gait. had no difficulty but stepped on twigs/small branches that had fallen in the path. Training/Intervention: had her work on different terrain which she did well on. path finding is difficult for patient and she needs very simple cueing and signs. Response: does fatigue quickly compared to her described baseline PT Neuromuscular Re-education Neuromuscular Re-education 1: single leg stance: high guard, bent knee (pt does automatically): ableon left 20 sec +, right le seconds, then 20 seconds with increased difficulty. all with contactguard assistance due to increased instability. step ups x 10 bilaterally. weaving in an S pattern through narrowly spaced cones. picking 10 cones up off the floor all with stand by assistance. grapevine x 20 feet bilaterally with stand by assistance, sidestepping, backwards ambulation with contact guard assistance. Standing Exercise - Side Addressed: Bilateral Standing Exercise Comments: with light hand hold on surface for balance: shallow single leg squats, sit to/from stand 10 x without arm use. Mat exercises: sitting scapular retractions, posterior seated crunches, quadruped alternating arm/leg 6 reps total, rested, repeated 6 reps. Patient/Family Education: Mia attending well to her environment. she continues to show insight thatshe needs to ask for clarification at times as she doesn't understand what is being asked or why. Education Provided to: Mia Vocalized understanding. At times is unable to demonstrate consistently. Learner's Response: Requires cueing At the end of today's therapy session patient was left seated in bedside chair with the chair alarm on with an appropriate call light within reach. Patient's needs and questions addressed during today's session. Contact monitoring: PPE used during therapy: Therapist was wearing the following PPE throughout entire session: surgicalmask and eye protection Patient was wearing a mask during therapy session: yes Assessment Mia mobilizes well within a structured, functional and familiar environment. Discussed with team and agree that Mia could mobilize independently within her room. She requires ongoing supervision in more dynamic environments and tasks. She is scanning and attending well to the environment on her right. Her balance and mobility are improving well and she is working on high level balance tasks. She continues to exhibit impaired cognition and communication. Barriers to Discharge Home: Current functional status, Safety concerns, Fall risk Comorbid Conditions: Cancer, Obesity Personal Factors: Visual impairment, Safety awareness, Communication deficit, Balance impairment Discharge Therapy Needs - PT: Ongoing skilled physical therapy Level of Care Needed - PT: Physical assistance needed, Cognitive assistance needed Functional Goals and Timeframes: PT Goal #1: Patient will demonstrate independence with bed mobility by discharge to allow for improved independence with functional mobility. PT Goal #2: Patient will demonstrate independence with any-wp-[id number] transfers by discharge to allow for improved safety with functional mobility. PT Goal #3: Patient will demonstrate independence with ambulation and least restrictive device to allow for improved independence with functional mobility. PT Goal #4: Patient will demonstrate ability to ascend/descend 10 stairs with single handrail independently to allow for safe discharge. Progress: Progressing toward goals Plan Patient agrees with the plan of care and goals. Treatment Plan: PT Frequency: 6 times per week PT Amount: 2 visits per day PT Inpatient Duration : Until goals are met or hospital discharge Plan: Plan of care initiated PT Plan Comments: attention to right environment, path finding, high level balance Treatment interventions may include: Treatment/Interventions: Therapeutic exercise, Therapeutic functional activity, Neuromuscular re-education, Gait training Time Spent with Patient Therapeutic Interventions Neuromuscular Re-Education (min): 45 min Therapeutic Activity (min): 45 min Time Tracking Total Timed Units (min): 90 min Total Treatment Time (min): 90 min PT Individual : 90 Minutes Elizabet Ochoa PBritt Sandra Rust D.O. - 01/20/2022 7:11 AM CDT SUBJECTIVE Ms. Cedillo is 51 y.o. 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 No acute events overnight and reports feeling well this morning. Reported sleeping well. She remains hemodynamically stable and has not required a p.r.n. dose of hydralazine. She continuesto void without difficulty and does not require catheterization. Voided 7.5 L yesterday, net negative 5 L. Last bowel movement was 01/19. I have reviewed the current medication list. OBJECTIVE Temperature: [36.3 ??C-36.8 ??C] 36.3 ??C Resp Rate: [16] 16 Blood Pressure: (129-139)/(86-93) 135/86 SpO2: [96 %-97 %] 96 % Last Stool Occurrence: 1 (01/19/221955 : Janeth Ovalle, R.N.) Intake/Output Summary (Last 24 hours) at 01/20/2022 0711 Last data filed at 01/20/2022 0656 Gross per 24 hour Intake 2570 ml Output 7500 ml Net -4930 ml Bowel Incontinence: No (01/19/221955 : Janeth Ovalle, R.N.) Unmeasured Urine Occurrence: 1 (01/19/221955 : Janeth Ovalle, R.N.) Urinary Incontinence: No (01/19/221955 : Janeth Ovalle, R.N.) Physical Exam: General: Well-appearing, in no acute distress. Seen in the apartment gym with OT. Patient was makingeggs and toast with no cuing or physical assistance. Able to converse while doing these tasks. HEENT: Mucous membranes moist Eyes: No scleral icterus, conjunctiva clear Heart: hemodynamically stable Lungs: breathing comfortably on room air Skin: Dry and intact, no acute lesions noted Neuro: Alert and oriented, appropriate mood and affect. Expressive aphasia with paraphrasic errors, but speaking in complete sentences. Diagnostics I reviewed the imaging studies and agree with the interpretation as recorded. I reviewed the pertinent laboratory data and diagnostic data. ASSESSMENT / PLAN In Summary, Ms. 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 ?? Plan for today (01/20/2022): - Continue working with therapies ?? 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 Continue with PT, OT and SPONSORSHIP COORDINATOR to achieve goals as stated above -Pain control: Continue acetaminophen 1,000 mg PO q6h PRN. -Seizure ppx: Continue Keppra 1,000 mg PO BID. Will remain on this until ANDRESSA follow up. -Continue dexamethasone taper ?? #GERD -Continue pantoprazole 40 mg po QAM ?? FULL CODE as discussed with patient. Diet: Regular. Sutures/Commerce: can be removed 14 days post-operatively (around 01/24) DVT prophylaxis: Lovenox Bowel: Senna, MiraLAX and suppository as needed. Bladder: Currently voiding Disposition: ELOS 10 days; goal to home Please contact the brain rehabilitation service pager [phone] with questions or concerns. Sandra Rust, DO PM&R PGY-2 Sweetie Landaverde M.S., O.T. - 01/19/2022 3:51 PM CDT Occupational Therapy Rehabilitation [facility] Inpatient Progress Note SUBJECTIVE Patient's Name: Mia Richardson Reason for Referral: OT Evaluate and Treatment; IRF Brain Unit Medical Diagnosis: 1. Tumor Brain (HCC) 2. Aphasia 3. Deficit Cognitive Communication 4. Abnormal Gait Non Orthopedic 5. Decline Functional Status 6. Unsteadiness Non Orthopedic History of Present Illness: s/p left temporoparietal crani for resection of Grade 3 astrocytoma Onset Date: 01/09/22 Patient/Caregiver Goals: Return to home. [place]zel with ADL and IADL tasks. To initiate asking questions to medical team and to family members. Patient Comments: Patient motivated and agreeable to OT. Precautions Other Precautions: Fall risk. Decreased safety awareness. R visual field cut. R inattention. Communication deficit (aphasia). Fall Risk (65 and older) Fall in the last 12 months: No Are you fearful of falling?: Yes OBJECTIVE Pain: no pain reported this date. Patient reports she had some tenderness on the right side of her body, which she was told was likely related to the hours spent on the operating table. Vitals: Not indicated at this time Home Management/Self-Cares Grooming Grooming Location: Standing at sink Grooming Delivery: Assessed Grooming Level of Assistance: Supervision/Set-up Grooming Comments: Oral hygiene and hand hygiene. Bathing Bathing Location: Seated in shower, Standing in shower Bathing Delivery: Assessed, Facilitated, Therapist Assisted Bathing Adaptive Equipment: Hand-held shower head Body Parts Included in Task: Chest, Right arm, Left arm, Abdomen,Perineal area, Buttocks, Right upper leg, Left upper leg, Right lower leg, Left lower leg Bathing Level of Assistance: Supervision/Set-up Bathing Comments: Patient demonstrates good balance for standing in shower for bottom cares with supervision. UE Dressing UE Dressing Delivery: Assessed, Facilitated UE Dressing Items Included: overlay plastician shirt UE Dressing Level of Assistance: Supervision/Set-up UE Dressing Location: Standing LE Dressing LE Dressing Location: Standing, Chair LE Dressing Delivery: Assessed, Facilitated LE Dressing Items Included: Socks, Pants, Underwear/Adult incontinence briefs LE Dressing Level of Assistance: Supervision/Set-up LE Dressing Comments: Cues for seated performance of donning/doffing socks due to decreased attention. Toileting Toileting Location: Toilet Toileting Delivery: Assessed Toileting Level of Assistance: Supervision/Set-up ADL Comments ADL Comments: Patient completed bathing, toileting, and dressing with supervision. Patient had difficulty recalling procedural sequencing of task and orientation of room (Where are my clothes? Maybe they're in the other room...). Patient demonstrated improved functional balance for standing performance of activities of daily living with supervision. Bath Transfers # of Assistants: 1 Transfer Type: Tub/shower combination Transfer Approach: To and from, Ambulating Transfer Equipment: Grab bars, Basic bath seat Level of Assistance: Contact guard assistance Assessment/Delivery: Assessed, Instructed, Therapist assisted, Educated, Facilitated Comments: ongoing education regarding bathroom equipment. Demonstrated and instructed patient on step-over technique with use of grab bar to get in/out of tub. Patient return-demonstrated understanding. Recommended use of shower chair initially during recovery for energy conservation and reduced fall risk. Patient verbalized understanding and notes she has access to extra grab bars through her family. Addenbrooke's Cognitive Examination III: The Add[place]oke's Cognitive Examination (LISET-III) is a cognitive screening tool sensitive to detect the early stages of dementia or mild cognitive impairment. The LISET-III is made up of five subscales: attention, language, fluency, memory, and visuospatial skills. Each subscale represents a cognitive domain. The LISET- III subscale scores are summed to produce an overall total score (maximum 100 points).A score above 88 represents normal cognitive function. A score of 82 to 88 represents possible mild cognitive impairment and need for further assessment. A score below 82 represents the possibility of dementia and the need for further assessment. Total LISET III Lithuanian Version A. Score: 81/100 Domain scores: Attention: Memory: Fluency: 03/07 Language: Visuospatial: Add[place]brooke's Cognitive Examination has undergone limited research related to its use among patientswith traumatic and acquired brain injuries. This screen was selected to guide the therapist's clinical reasoning, but its findings need to be reviewed cautiously as it has not undergone an intensive battery to identify its validity or sensitivity with this patient population. Bolt Making Test Bolt making assessments require a variety of cognitive processes, including attention, visual search, scanning, sequencing, shifting, psychomotor speed, abstraction, cognitive flexibility, the abilityto execute and modify a plan of action, and the ability to maintain two trains of thought simultaneously. Bolt A is a simple trail making task. Average performance requires task completion in 29 seconds.Today, patient completed Bolt A in 32 seconds. Patient demonstrated 0 errors during task performance. Bolt B introduces an alternating condition. The average individual is able to complete Bolt B within 75 seconds. When discussing return to driving, research literature recommends a cut off score of90 seconds. Today, patient completed Bolt B in 49 seconds, which is below the cutoff score for deficiency. Patient demonstrated 0 errors during task performance. Assessment was administered today with paper and pencil via standardized form. At the end of today's therapy session patient was left seated in bedside chair with an appropriate call light within reach. Patient's needs and questions addressed during today's session. Contact monitoring: PPE used during therapy: Therapist was wearing the following PPE throughout entire session: surgicalmask and eye protection Patient was wearing a mask during therapy session: donned for therapy unit Assessment Patient is progressing with functional skills needed to perform activities of daily living. Today, patient was able to bathe and dress with supervision and cues for safety awareness and initiation/sequencing. Patient is requiring supervision during daily living due to R visual field cut, R environmental inattention, communication deficit (aphasia), unsteadiness, and decreased cognition. See results above from today's cognitive screening, which indicates difficulty with memory (short-term recall) andattention. Patient's performance improves with frequent orientation. Recommending ongoing daily, skilled occupational therapy services to progress functional performance towards baseline and optimize safety during daily tasks. Barriers to Discharge Home: Current functional status, Safety concerns, Fall risk Comorbid Conditions: Cancer Personal Factors: Visual impairment, Safety awareness, Communication deficit, Balance impairment Discharge Therapy Needs - OT: Ongoing skilled occupational therapy Level of Care Needed - OT: Assistance with toilet/shower transfers, Assistance with medication set up/administration, Assistance with showering/bathing, Assistance with meal preparation, Assistance with financial operations clerk, Assistance with transportation, Assistance with housekeeping, Assistance with shopping, Cognitive assistance needed, Assistance with dressing Recommended Adaptive Equipment - OT: Other (Comment) (Ongoing assessment) Functional Goals and Timeframes: OT Goal #1: By next ITC, patient will perform instrumental activities of daily living (i.e., medication management, laundry) with supervision assistance with <50% verbal cuing to complete task. OT Goal #1 Status: Ongoing (Goal not addressed this date.) OT Goal #2: By next ITC, patient will complete simple meal preparation task with supervision assistance with 100% safety awareness with <2 verbal cues provided. OT Goal #2 Status: Progressing OT Goal #3: By discharge, patient will complete multiple errands task with supervision assistance without verbal cuing to implement visual scanning techniques when navigating environment. OT Goal #3 Status: Progressing (Patient provided education on visual scanning techniques and requires continued education to implement consistently.) OT Goal #4: By discharge, patient will perform dressing routine with modified independence without verbal cuing for sequencing steps of task. OT Goal #4 Status: Progressing (Patient required 2 direct verbal cues to obtain undergarments neededfor dressing this date.) Progress: Progressing toward goals Plan Patient agrees with the plan of care and goals. Treatment Plan: OT Frequency: 6 times per week OT Amount: 2 visits per day OT Inpatient Duration : Until goals are met or hospital discharge Plan: Continue with current plan OT Plan Comments: Functional cognitive tasks and further cognitive assessments, further vision interventions for right visual field cut, executive functioning as it relates to ADL performance, instrumental activities of daily living including meal preparation, laundry, household management Treatment interventions may include: Treatment Interventions: Therapeutic functional activity, Neuromuscular re- education, Self-care/homemanagement, Cognitive skills training, Therapeutic exercise, Therapeutic modalities as needed, Orthosis [id number], Manual therapy Time Spent with Patient Therapeutic Interventions Home Management Training (min): 60 min Therapeutic Activity (min): 30 min Time Tracking Total Timed Units (min): 90 min Total Treatment Time (min): 90 min OT Individual: 90 Minutes Sweetie Landaverde M.S., O.T. Kylie Lara M.S., [facility]-SPONSORSHIP COORDINATOR - 01/19/2022 1:55 PM CDT Speech Language Pathology Communication/Cognitive Treatment- Inpatient Rehabilitation Unit Session Type: Treatment Length of Session: 30 minutes SUBJECTIVE The patient actively participates in all therapy activities. Pain: Not assessed General Behavior: Alert, Cooperative, Distractible, Pleasant mood OBJECTIVE Objective Session Data Cognition Overall Cognitive Status: Impaired Attention: Impaired Sustained: Mild Alternating: Moderate Memory: Impaired Orientation: Oriented X4 Problem Solving: Impaired Impulsive: Mildly impulsive Executive Functioning: Impaired Planning: Moderate Organization: Moderate Assessment Ms. Cedillo presents with moderate non-aphasic cognitive communication deficits as well as aphasia and right visual inattention in the setting of tumor resection for grade 3 astrocytoma, IDH wildtype. The The Cognitive Linguistic Quick Test-Plus (CLQT+) was completed with the exception of one subtestto assess the cognitive domains of attention, memory, language, executive function, visuospatial skills. Score WNL Mild Moderate Severe Attention TBD Memory 151 X Executive Function 25 X Language 28 X Visuospatial Skills Clock Drawing 8 X Ms. Cedillo completed the additional subtests of the CLQT, demonstrating the ability to plan and implement a strategy for completing a simple and a more complex maze. She completed a symbol trail task, attending to two parameters with 10/10 accuracy. Verbal fluency for naming of words that begin with /m/ 9 in 60 seconds. Ms. Villareal communication difficulties are best described as deficits in thought and language organization as well as word finding deficits. This is further impacted by deficits in attention and memory. The patient will continue to benefit from direct speech therapy to achieve functional communication in all environments. She continues to require the skills of certified speech/language pathologist todetermine best cueing strategies and task sequences to achieve goals. Contact Monitoring: Clinician was wearing the following PPE for the duration of today's session(s): surgical mask Diagnosis: Impressions Consistent with a diagnosis of: Non-Aphasic Cognitive Communication Disorder, Aphasia Aphasia: Moderate Non-Aphasic Cognitive Communication Disorder: Moderate Goals: Cognition Short Term Goal 1 Cognition Short Term Goal 1: Mia will recall new information related to therapy, safety and routinewith strategy use in 80% of opportunities. Cognition Short Term Goal 1 Progress Toward Goal: Progress toward goal completion: continue on target Auditory Comprehension Short Term Goal 1 Auditory Comprehension Short Term Goal 1: Patient will follow two and multistep commands with extra time in 80% of opportunities. Auditory Comprehension Short Term Goal 1 Progress Toward Goal: Progress toward goal completion: continue on target Verbal Expression Short Term Goal 1 Verbal Expression Short Term Goal 1: Patient will answer basic questions related to therapy and routine with increased time with 100% accuracy. Verbal Expression Short Term Goal 1 Progress Toward Goal: Progress toward goal completion: continue on target Verbal Expression Short Term Goal 2 Verbal Expression Short Term Goal 2: Mia will be able to express more complex and abstract information as it relates to therapy, routine and conversation through strategy use in 80% of opportunities. Verbal Expression Short Term Goal 2 Progress Toward Goal: Progress toward goal completion: continue on target Plan Discharge Location: Unknown SPONSORSHIP COORDINATOR Ongoing Services: Ongoing formal Speech Pathology services Frequency of Treatment: 1-2x/5-6 days per week Duration of Treatment: duration of rehab stay Rehab Potential: Good Electronically signed by Kylie Lara MSanjuanitaSSanjuanita, [facility]-SPONSORSHIP COORDINATOR at 01/19/2022 2:07 PM CDT Elizabet Ochoa P.T. - 01/19/2022 12:49 PM CDT [facility] SUBJECTIVE Patient's Name: Mia Richardson Reason for Referral: PT Evaluate and treat - Brain IRF Medical Diagnosis: 1. Tumor Brain (HCC) 2. Aphasia 3. Deficit Cognitive Communication 4. Abnormal Gait Non Orthopedic 5. Decline Functional Status History of Present Illness: s/p left temporoparietal crani for resection of Grade 3 astrocytoma Onset Date: 01/09/22 Patient/Caregiver Goals: Return to home. [place] with ADL and IADL tasks. Patient Comments: She is tired stating when she gets woken up early she can't get back to sleep. Precautions Other Precautions: fall risk, decreased safety awareness, right visual field cut, impaired cognition/short term memory Fall Risk (65 and older) Fall in the last 12 months: No Are you fearful of falling?: Yes OBJECTIVE Pain: none Sit to Stand Transfers # of Assistants: 1 Transfer Surface: Chair Transfer Equipment: Gait belt Level of Assistance: Supervision/set-up Stand to Sit Transfers # of Assistants: 1 Transfer Surface: Chair Transfer Equipment: Gait belt Level of Assistance: Supervision/set-up Gait Assessment/Training Distance (m): 200 m Surface: Incline, Decline, Even, Grass Device: Gait belt # of Assistants: 1 Level of Assistance: Supervision/Set-up, Contact guard assistance Quality/Pattern: Decreased heel strike, Decreased toe off Assessment of Gait: Slow cautious gait pattern, catches right foot at times - scuffs her shoe. Occasionally change in pace with impulsiveness and decreased awareness of right side of environment. Cueing Provided: Verbal, Tactile Training/Intervention: Cues for normal pace, right-sided awareness as well as path finding activity completed around unit for dual task challenge. required contact guard assistance on inclines, declines, uneven grass Response: fatigues quickly. tolerated well Stairs/Curb # Stairs: 12 (8 steps in rehab gym, 12 steps outside by parking ramp) Rails: 1 Device: No device, Gait belt # of Assistants: 1 Level of Assistance: Contact guard assistance Stair Navigation Pattern-Ascending: Reciprocal pattern Stair Navigation Pattern-Descending: Reciprocal pattern PT Neuromuscular Re-education Neuromuscular Re-education 1: finding cones in different environments/different levels/R and L. sidesteps with contact guard assistance, grapevine with contact guard assistance. single leg stance with occasional touching on railing with minimal assistance of 1. R leg 7-10 seconds (3 reps), L leg 15-20 seconds (2 reps) - high arm guard, lowers center of gravity for more stability. tandem stance 10 sec x 2 with cga - minAof1. static stance with feet together, eyes closed 10 secs x 2 with CGA, sidestepping, grapevine, tandem walking, backwards walking with contact guard assistance Neuromuscular Re-education 2: path finding in different environments. scanning to spot exit signs - needed several reminders or patient would forget that she was looking for something. and then to spotphones on the wall. Neuromuscular Re-education 3: in PM took outside to the [employer]. had patient path find from south end to north end taking varying routes, curb training, uneven concrete side walks, uneven grass, up a steep incline. repeated balance work as above. Patient/Family Education: attention to right Education Provided to: Mia Learner's Response: Requires cueing At the end of today's therapy session patient was left seated in bedside chair with the chair alarm on with an appropriate call light within reach. Patient's needs and questions addressed during today's session. Contact monitoring: PPE used during therapy: Therapist was wearing the following PPE throughout entire session: surgicalmask and eye protection Assessment Mia is tired but put forth appropriate effort. Her dynamic balance is impaired. R sided field cut with environmental inattention. Ambulation exhibits mild instability occasionally on level surfaces with close stand by assistance. Is progressing to higher level balance with contact guard assistance to minimal assistance of 1. Ambulating on uneven surfaces with contact guard assistance of 1. Impaired memory Barriers to Discharge Home: Current functional status, Safety concerns, Fall risk Comorbid Conditions: Cancer, Obesity Personal Factors: Visual impairment, Safety awareness, Communication deficit, Balance impairment Discharge Therapy Needs - PT: Ongoing skilled physical therapy Level of Care Needed - PT: Physical assistance needed, Cognitive assistance needed Functional Goals and Timeframes: PT Goal #1: Patient will demonstrate independence with bed mobility by discharge to allow for improved independence with functional mobility. PT Goal #2: Patient will demonstrate independence with [id number] transfers by discharge to allow for improved safety with functional mobility. PT Goal #3: Patient will demonstrate independence with ambulation and least restrictive device to allow for improved independence with functional mobility. PT Goal #4: Patient will demonstrate ability to ascend/descend 10 stairs with single handrail independently to allow for safe discharge. Progress: Progressing toward goals Plan Patient agrees with the plan of care and goals. Treatment Plan: PT Frequency: 6 times per week PT Amount: 2 visits per day PT Inpatient Duration : Until goals are met or hospital discharge Plan: Plan of care initiated PT Plan Comments: attention to right environment, path finding, high level balance Treatment interventions may include: Treatment/Interventions: Therapeutic exercise, Therapeutic functional activity, Neuromuscular re-education, Gait training Time Spent with Patient Therapeutic Interventions Neuromuscular Re-Education (min): 60 min Therapeutic Activity (min): 30 min Time Tracking Total Timed Units (min): 90 min Total Treatment Time (min): 90 min Elizabet Ochoa P.T. Sandra Rust D.O. - 01/19/2022 7:09 AM CDT SUBJECTIVE Ms. Cedillo is 51 y.o. 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 No acute events overnight and reports feeling well this morning. She reported sleeping longer, to 5:30 am instead of 4 am for which she was grateful. Reported some tinnitus that has been present for years. Reported some difficulty hearing which improves after yawning, which has been present since surgery. This is impacting her ability to understand what other people say. Grateful for the therapies she's already received and is eager to continue working. Reported feeling overwhelmed with the upcomingtreatments. She remains hemodynamically stable and did not require a p.r.n. dose of hydralazine. She continues to void without difficulty and does not require catheterization. Last bowel movement was 01/17. I have reviewed the current medication list. OBJECTIVE Temperature: [36.6 ??C-37 ??C] 37 ??C Resp Rate: [16] 16 Blood Pressure: (126-161)/(84-100) 126/84 SpO2: [96 %-100 %] 98 % Weight: [91.4 kg] 91.4 kg BMI (Calculated): [32 kg/m??] 32 kg/m?? Last Stool Occurrence: 1 (01/17/221840 : Riccardo Butler) Intake/Output Summary (Last 24 hours) at 01/19/2022 0709 Last data filed at 01/19/2022 0245 Gross per 24 hour Intake 1700 ml Output 4150 ml Net -2450 ml Bowel Incontinence: No (01/17/221840 : Riccardo Butler) Urinary Incontinence: No (01/19/22 0245 : Shilpa Kennedy R.N.) Physical Exam: General: Well-appearing, in no acute distress HEENT: Mucous membranes moist Eyes: No Scleral Icterus, conjunctiva clear Heart: hemodynamically stable Lungs: breathing comfortably on room air Skin: Dry and intact, no acute lesions noted Neuro: Alert and oriented, appropriate mood and affect. Expressive aphasia with paraphrasic errors, but speaking in complete sentences. Diagnostics I reviewed the imaging studies and agree with the interpretation as recorded. I reviewed the pertinent laboratory data and diagnostic data. ASSESSMENT / PLAN In Summary, Ms. 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 ?? Plan for today (01/19/2022): - Patient has been having a BM about every 3 days since admission to the hospital. last BM was 01/17.Goal to have a BM today or tomorrow, prn MiraLAX available - Dexamethasone taper from 3 mg to 2 mg today - Informed patient about spiritual care availability if she's interested ?? 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 Continue with PT, OT and SPONSORSHIP COORDINATOR to achieve goals as stated above -Pain control: Continue acetaminophen 1,000 mg PO q6h PRN. -Seizure ppx: Continue Keppra 1,000 mg PO BID. Will remain on this until ANDRESSA follow up. -Continue dexamethasone taper ?? #GERD -Continue pantoprazole 40 mg po QAM ?? FULL CODE as discussed with patient. Diet: Regular. Sutures/Commerce: can be removed 14 days post-operatively (around 01/24) DVT prophylaxis: Lovenox Bowel: Senna, MiraLAX and suppository as needed. Bladder: Currently voiding Disposition: ELOS 10 days; goal to home Please contact the brain rehabilitation service pager [phone] with questions or concerns. Sandra Rust, DO PM&R PGY-2 Associated attestation - Francois Gonzalez M.D. - 01/19/2022 12:13 PM CDT I saw and evaluated the patient, participating in the hill portions of the service. I reviewed the resident/fellow???s note. I agree with the resident/fellow???s findings and plan. Additionally Ms Cedillo expressed concern about her LMWH and her hypertension yesterday afternoon. I discussed the situa tion with her and answered her questions. Ms. Cedillo is capable of participating in rehabilitation. She continues to progress towards functional independence in the area(s) of mobility, self-care, and communication and will benefit from ongoing intensive inpatient rehabilitation. Francois Gonzalez M.D. Benjamín Warner M.D. - 01/18/2022 8:48 AM CDT SUBJECTIVE Ms. Cedillo is 51 y.o. 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 No acute events overnight. The patient remains hemodynamically stable. She denies any headaches ornausea this morning. She was excited that she was able to shower last night and is looking forward to working with therapy today. She remains hemodynamically stable. She does discuss her ongoing difficulty with sleep. She reports that last night she felt safe around 10 30 and woke up around 430 or5:00 a.m. Multidisciplinary discharge rounds: I participated in multidisciplinary bedside rounds today. Attendees included: patient, physician, bedside nurse, rental boats caretaker, physical therapist and occupational therapist. This is the patient's first bedside rounds. We provided medical updates and introduction to team members and roles. Then we reviewed patient-centered goals including improved cognition and short termmemory, improved balance, improved independene and functionality I have reviewed the current medication list. OBJECTIVE Temperature: [36.5 ??C-36.9 ??C] 36.5 ??C Heart Rate: [58] 58 Resp Rate: [14-16] 15 Blood Pressure: (110-138)/(69-88) 131/88 SpO2: [95 %-99 %] 99 % Height: [169 cm] 169 cm Weight: [89.3 kg] 89.3 kg BMI (Calculated): [31.3 kg/m??] 31.3 kg/m?? Last Stool Occurrence: 1 (01/17/221840 : Riccardo Butler) Intake/Output Summary (Last 24 hours) at 01/18/2022 0848 Last data filed at 01/18/2022 0600 Gross per 24 hour Intake 2380 ml Output 4450 ml Net -2070 ml Bowel Incontinence: No (01/17/221840 : Riccardo Butler) Urinary Incontinence: No (01/18/22 0000 : Shilpa Kennedy, RSanjuanitaN.) Physical Exam: General: Well-appearing, in no acute distress HEENT: Mucous Membranes Moist Eyes: No Scleral Icterus, conjunctiva clear Heart: hemodynamically stable Lungs: breathing comfortably on room air Skin: Dry and intact, no acute lesions noted Neuro: Alert and oriented, appropriate mood and affect. Expressive aphasia with paraphrasic errors, but speaking in complete sentences this morning Diagnostics I reviewed the imaging studies and agree with the interpretation as recorded. I reviewed the pertinent laboratory data and diagnostic data. ASSESSMENT / PLAN In Summary, Ms. 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 ?? Plan for today (01/18/2022): - Will recheck BMP today given previous hyponatremia, as well as continued headaches and nausea -Discontinued oxycodone as patient not using -Tylenol moved to PRN ?? 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 Continue with PT, OT and SPONSORSHIP COORDINATOR to achieve goals as stated above -Pain control: Continue acetaminophen 1,000 mg PO q6h PRN. -Seizure ppx: Continue Keppra 1,000 mg PO BID. Will remain on this until ANDRESSA follow up. -Continue dexamethasone taper ?? #GERD -Continue pantoprazole 40 mg po qAM ?? FULL CODE as discussed with patient. Diet: Regular. Sutures/Commerce: can be removed 14 days post-operatively (around 01/24) DVT prophylaxis: Lovenox Bowel: Senna, miralax and suppository as needed. Bladder: Currently voiding Disposition: ELOS 10 days; goal to home Benjamín Warner MD PGY-2, PM&R Please contact the brain rehabilitation service pager [phone] with questions or concerns. Associated attestation - Yolette Gleason M.D. - 01/18/2022 4:59 PM CDT I saw and evaluated the patient, participating in the hill portions of the service. I reviewed the resident/fellow???s note. I agree with the resident/fellow???s findings and plan. Ms. Cedillo is capable of participating in rehabilitation. She continues to progress towards functional independence in the area(s) of mobility, self-care, communication, and cognition and will benefitfrom ongoing intensive inpatient rehabilitation. Labs reviewed and are unremarkable, serum sodium is stable at 137. She has not been requiring oxycodone so will discontinue. She had difficulty with sleep but prefers nonpharmacologic sleep strategies. Multidisciplinary discharge rounds: I participated in multidisciplinary bedside rounds today. Attendees included: patient, family member(s), physician, bedside nurse, rental boats caretaker, physical therapist, occupational therapist, Social work, and speech/language pathologist. This is the patient's first bedside rounds. We provided medical updates and introduction to team members and roles. Then we reviewed patient-centered goals including speech/communication strategies, attention, memory, endurance/activity tolerance, ambulating and performing ADLs with less assistance Yolette Gleason M.D. Yolette Gleason M.D. - 01/17/2022 4:54 PM CDT Physical Medicine and Rehabilitation PMR Rehab Individualized Overall Plan of Care 01/17/2022 4:54 PM CDT Patient Name: Mia Richardson Date of : 1970 Sex: Female Room/Bed: 254/254-P Payor Info: Payor: [facility] / Plan: [employer] [place] / Product Type: PPO / Etiologic Diagnosis: Tumor Brain (HCC) Admit Date/Time: 01/17/2022 11:55 AM Estimated Length of Stay: Estimated Length of Stay: 10 days Anticipated Discharge Destination: - Home (private home/apt., board/care, assisted living, nursing home, transitional living) The following care plan has been synthesized from the Preadmission Screening, the Post Admission Physician Evaluation, and the individual therapy assessments. Medical Prognosis The patient's medical prognosis is Excellent to achieve the stated goals below. Anticipated Interventions: The patient will undergo inpatient rehabilitation to manage complex medical and rehabilitation needsrelated to Tumor Brain (HCC). The patient will receive interdisciplinary care, including daily rehabilitation physician managementfor the following: Pain, Wound care, Impaired sleep/wake cycles, Monitoring for medication side effects and Nutrition The patient will benefit from continued services by: PT Projected Minutes/Day: 90 PT Projected Days/Week: 5 OT Projected Minutes/Day: 90 OT Projected Days/Week: 5 SPONSORSHIP COORDINATOR Projected Minutes/Day: 30 SPONSORSHIP COORDINATOR Projected Days/Week: 5 Expected Functional Outcomes: Expected Level of Improvement for Mobility: The patient will ambulate safely and independently with a gait aid as needed Expected Level of Improvement for Self Care: Independent with ADLs with or without equip Expected Level of Improvement for Cognition: The patient will solve problems with extra time Expected Level of Improvement for Communication: The patient will communicate with extra time Johnnie Beltre, R.Ph. - 01/17/2022 2:48 PM CDT Pharmacist Progress Note ?? 51 y.o. female s/p left temporoparietal crani on 01/10 for resection of Grade 3 astrocytoma is now being admitted to the inpatient rehabilitation unit on 01/17/2022 PMH: Astrocytoma, HTN, Psoriasis, Herniated Disc Lumbar OBJECTIVE Home medications: ??? Held: None ??? Changed: Dexmethasone Prophylaxis: enoxaparin 40 mg SQ Q24h(start from 01/18/2022), pantoprazole 40 mg daily ASSESSMENT / PLAN Pharmacotherapy Recommendations: 1. Continues on post-op dexamethasone taper 2. Home Keppra 1000 mg BID for seizure 3. LBM 01/17 Johnnie Beltre, R.Ph. - 01/17/2022 2:43 PM CDT Images from the original note were not included. Admission Medication History Note Adherence issues: Unable to assess Medication list source: Pharmacy or dispense records Medication related information: completed by a pharmacist previously on 01/09/2022 Prior to Admission Medications Med List Status: Pharmacy Complete Set By: Johnnie Beltre, R.Ph. at 01/17/2022 2:41 PM Taking? Last Dose Informant Start Date End Date LT acetaminophen (Tylenol Extra Strength) 500 mg tablet 01/01/22 -- Take 1,000 mg by mouth 3 (three) times a day as needed for pain. dexAMETHasone (DECADRON) 1 mg tablet 01/23/22 01/27/22 Take 1 tablet (1 mg total) by mouth every 6 (six) hours for 16 doses. dexAMETHasone (DECADRON) 1.5 mg tablet 01/17/22 01/19/22 Take 2 tablets (3 mg total) by mouth every 6 (six) hours for 7 doses. dexAMETHasone (DECADRON) 2 mg tablet 01/19/22 01/23/22 Take 1 tablet (2 mg total) by mouth every 6 (six) hours for 16 doses. levETIRAcetam (KEPPRA) 1,000 mg tablet 12/07/21 -- Take 1,000 mg by mouth 2 (two) times a day. methocarbamoL (ROBAXIN) 750 mg tablet 01/17/22 -- Take 1 tablet (750 mg total) by mouth every 6 (six) hours as needed for muscle spasms. oxyCODONE (ROXICODONE) 10 mg IR tablet 01/17/22 -- Take 1 tablet (10 mg total) by mouth every 4 (four) hours as needed for severe pain or score 7-10 of 10 (or for pain greater than comfort goal) Indication: Acute Pain Exception. oxyCODONE (ROXICODONE) 5 mg immediate release tablet 01/17/22 -- Take 1 tablet (5 mg total) by mouth every 4 (four) hours as needed for moderate pain or score 4-6 of 10 Indication: Acute Pain Exception. 25/iron fum/folic/dha (-1 ORAL) -- -- Take 1 tablet by mouth daily. sennosides-docusate sodium (SENOKOT-S) 8.6-50 mg per tablet 01/17/22 -- Take 1 tablet by mouth at bedtime as needed for constipation. temozolomide (TEMODAR) 140 mg capsule 12/31/21 -- Take 140 mg by mouth daily. Notes: Has not started temozolomide (TEMODAR) 20 mg capsule 12/31/21 -- Take 20 mg by mouth daily. Notes: Has not started TURMERIC ORAL -- -- Take 1 capsule by mouth daily. VITAMIN B COMPLEX ORAL -- -- Take 1 tablet by mouth daily. documented in this encounter H&P Notes Yolette Gleason M.D. - 01/17/2022 4:32 PM CDT Post-Admission Physician Evaluation SUBJECTIVE I saw and evaluated the patient, participating in the hill portions of the service. I reviewed the resident???s admission note. I agree with the resident???s findings and plan unless otherwise stated below. Please see H&P/Admission note by Benjamín Warner MD ([phone]) for additional details. ADMISSION ICG Adult; Brain Dysfunction Brain Dysfunction Non-Traumatic (2.1) Chief Complaint Tumor Brain (HCC) History of Present Illness Briefly, Ms Cedillo is a right hand dominant female with history of hypertension who was found to have left hemispheric T2 hyperintense mass on MRI obtained to evaluate for word finding difficulty. 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 She is now status post left temporoparietal craniotomy and resection 01/10/22. Her course has been notable for concern for subclinical seizures as well as aphasia and cognitive deficits. She reports baseline weakness in her right lower extremity after a lumbar herniated disc a few years ago, and she feels this is worse since admission. She has also noted some alteration in her vision, particular on her right side, as well as double vision. She has been havingfluctuating headaches but this has improved from initial onset. OBJECTIVE Physical Exam I agree with the resident exam findings. On my exam, she is wearing glasses and she appears to havepartial right visual field deficit. Otherwise she has conjugate gaze, EOMI, and face symmetric. Speech is without dysarthria but difficulty with word findings, verbal paraphasic errors. She was not really tangential but had more circumlocution with disorganized component.. She follows simple commands but had difficulty with more complex commands. She has mild right hip flexor weakness but otherwise strength is intact throughout. Coordination and sensation grossly intact, no extinction. ASSESSMENT / PLAN #1 WHO Grade 3 astrocytoma s/p left temporoparietal craniotomy and resection 05/13/22 #2 Aphasia #3 Non-aphasic cognitive communication deficit #4 Partial right visual field deficit #5 Gait abnormality and unsteadiness #6 Post-operative headache #7 Hypertension -The patient is medically capable of participating in rehabilitation activities and continues to require physician monitoring and management during the rehabilitation stay for ongoing neurologic monitoring, seizure precautions, fall precautions, aspiration precautions, sleep regulation, BP monitoring and management, pain management, monitor surgical wound healing, monitor for post- operative infection, monitor medication side effects, optimize nutrition/hydration for healing, monitor and prevent complications related to reduced mobility, bowel regulation, bladder regulation, and patient/caregiver education. -We will admit the patient for comprehensive inpatient rehabilitation including physical therapy, occupational therapy, speech therapy, recreational therapy, rehabilitation nursing care, and rehabilitation psychologist evaluation and treatment. The rehabilitation physician shall monitor the patient's changing functional and clinical status, manage new and preexisting medical conditions, and coordinate care amongst rehabilitation disciplines. -Please see Preadmission Screening for inpatient rehabilitation goals. Occupational Therapy shall work on upper extremity range of motion, fine motor coordination activities, activities of daily living, instrumental activities of daily living, and adaptive equipment needs assessment. Physical Therapyshall work on lower extremity range of motion, lower extremity strengthening and stretching as functionally indicated, standing and transfers, and ambulation with/without braces and/or gait aids. Speech Therapy shall work on expression and cognition. Rehabilitation nursing shall monitor vital signs, behavior, and cognition, monitor and promote medication compliance, provide consistent carry- over of rehabilitation interventions and approaches at the bedside, and offer diagnosis-specific education to the patient's family members. The nurse rental boats caretaker shall assist with dismissal planning. I have reviewed the pre-admission rehabilitation assessment. The patient's current medical and functional status remain the same. Estimated Length of Stay: Estimated Length of Stay: 10 days Medical Necessity: The patient requires, and is capable of participating in, an intensive and coordinated interdisciplinary acute inpatient rehabilitation program. The patient requires rehabilitation physician visits to monitor medical conditions and coordinate rehabilitation care. The patient's rehabilitation goals and medical complexity cannot adequately be managed in a less intensive setting. Potential risks for clinical complications include VTE, pain, fall, seizure, infection, constipation, impaired wound healing. Medical Prognosis: Good for continued progress and participation with therapy. Functional Status Prior Function (3=independent; 2=Needs some help; 1= Dependent; 8= Unk; 9= NA) Level of Wetzel: Independent with ADLs and functional transfers ADL Assistance: Independent Self-Care: Independent Ambulation: Independent Wheelchair: Not applicable Stairs: Independent Cognition: Normal Speech / Language: Normal Have you had major surgery in past 100 days?: Yes Current Functional Status (06=independent; 05=Setup or clean-up assistance; 04=Supervision or touching assistance; 03=Partial/moderate assistance; 02=Substantial/maximal assistance; 01=Dependent; 07=Patient refused; 09=NA; 88=Not attempted due to medical condition or safety concerns) Eating: Setup or clean-up assistance Grooming: Supervision or touching assistance Upper Body Dressing: Partial/moderate assistance (Minimal assistance) Lower Body Dressing: Partial/moderate assistance (Minimal assistance) Toileting: Partial/moderate assistance (Minimal assistance) Bathing: Partial/moderate assistance (Minimal assistance) Bed Mobility: Partial/moderate assistance (Minimal assistance) Transfers: Partial/moderate assistance (Minimal assistance) Functional Mobility: Partial/moderate assistance Distance: 5 Meters Willingness to Participate: Independent Cognition: Supervision or touching assistance Communication: Supervision or touching assistance RDT Benjamín Warner M.D. - 01/17/2022 2:59 PM CDT H&P/ Admission Note SUBJECTIVE History of Present Illness Per review of the electronic medical record and in discussion with the patient: Ms. Cedillo is a pleasant 51-year-old right-handed dominant female with past medical history of essential hypertension and class I obesity. Up until about a month ago, patient was in normal state of health until she began experiencing episodes of word finding difficulties. Upon outside ED admission, she had forehead bruising with suspected seizures. Subsequent MRI revealed hyperintense mass on T2 imaging that involved the left cerebellum, temporal lobe, parietal lobe, thalamus, and hippocampus. 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 Her care was subsequently transferred here to [facility] where she then underwent a left temporoparietal craniotomy andresection of left temporoparietal region mass. Postoperative there were some concerns regarding subclinical seizures the patient was severely aphasic, with severe headaches and altered mental status, but this significantly improved by postop day 1. PMR was consulted and evaluated the patient while on the acute hospital floor. Patient was requiringsupervision assistance with transfers, ambulation of 75 meters with contact guard assistance, minimal assistance with lower body dressing and grooming. Patient was previously independent of all ADLs without requiring any adaptive equipment. Patient's goal is to dismiss home with independent ambulation with gait aid as needed and ADLs in 10 days. They live in a single-story home with no stairs to enter and 10 stairs with a single railing inside to getto the main floor; bedroom and bathroom are on the main floor. Since this hospitalization, her mother has moved into her house to assist her daughter. 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 She is and has a boyfriend who lives in a separate home. Currently, Mia is resting comfortably in bed during our conversation today. She acted as main historian, but often had difficulties reciting her history and had frequent tangential thoughts. Her mother entered the room during our exam and is a retired family practice physician and will be staying ather daughter???s house. She states her right-sided weakness is longstanding but that it has been significantly worse since surgery. Additionally, she reports a history of right leg and back pain that her mom later described as a herniated disc. She denies any medication use prior to this hospitalization other than a BP med many years ago. She admits to headache, waxing and waning fatigue, double vision, right arm and leg weakness (leg>arm), and aphasia. She denies any hearing loss, chest pain, fecal incontinence, urinary incontinence The following portions of the patient's history were reviewed and updated as appropriate: current medications, allergies, medical history, surgical history, social history, family history and problem list. Review of Systems Pertinent items are noted in HPI; all other review of systems were negative. OBJECTIVE Temperature: [36.7 ??C-36.9 ??C] 36.7 ??C Resp Rate: [14-16] 14 Blood Pressure: (115-129)/(71-81) 129/81 SpO2: [96 %-99 %] 96 % Height: [169 cm] 169 cm Physical Exam General: Alert. Anxious demeanor. HEENT: Normocephalic, atraumatic. Oral cavity and tongue are unremarkable. Heart: Regular rate and rhythm; no murmurs, rubs, or gallops. Lungs: No dyspnea. Clear to auscultation bilaterally without wheezes, rhonchi, or rales. Extremities: No swelling or erythema. Multiple bruises present bilaterally on forearms. No calf tenderness. Skin: Exposed areas of skin are clean, dry, and intact with no evidence of cellulitis, pressure ulcers, or necrosis. Mental Status: Grossly oriented with appropriate mood and affect. KOKMEN Short Test of Mental Status: Orientation 8/8; Attention 7/7; Learning 4/4 (maximum of 4 trials); Calculation 3/4; Abstraction 3/3; Construction 3/4; Information 3/4; Recall 0/4. Total score = 31/38. Cranial Nerves: Extra ocular muscles intact. Right sided visual field deficit. No dysconjugate gaze. No facial droop. Tongue protrudes midline. Palate elevates symmetrically. Motor/Speech: No dysarthria appreciated. Normal prosody, phonation, resonation. Language: Expressive aphasia. Frequent paraphasic errors for which she was occasionally aware of. She had tangential thoughts. Able to name whole objects in some parts with intact repetition. Able tofollow simple commands but struggled with multistep commands needing frequent computer forensics examiner's to carry out this execution Muscle Strength: (scoring scale: 0=normal to -4=plegic; right/left) Slight right lower extremity drift present -Upper limb: deltoid 0/0; biceps 0/0; triceps 0/0; wrist extensors 0/0; finger extensors 0/0; wrist flexors 0/0; finger flexors 0/0; interossei 0/0. -Lower limb: iliopsoas -0.5/0, quadriceps 0/0, hamstrings 0/0, anterior tibial 0/0, EHL 0/0, gastroc-soleus 0/0. Tone: Normal tone throughout upper and lower limbs. No ankle clonus bilaterally. Muscle Reflexes (scale: -4=absent, 0=normal, +4=sustained clonus; right/left): Biceps 0/0, Triceps 0/0, Quadriceps 0/0, Gastroc-soleus 0/0. Ant Response: (right/left) absent/absent. Plantar Response: (right/left) flexor/flexor. Coordination: Normal upper and lower limb [place]. Normal [id number]. Normal [id number]. Sensation: Normal light touch sensation throughout upper and lower limbs. No extinction to double simultaneous stimulation in upper and lower limbs. Diagnostics I reviewed the imaging studies and agree with the interpretation as recorded. I reviewed the pertinent laboratory data and diagnostic data. CT Head without IV Contrast, CT Head Neck Angiogram with IV Contrast Result Date: 01/13/2022 Impression: Postoperative changes of temporoparietal craniotomy and resection of the left temporoparietal region mass with expected postoperative findings as described. No findings on noncontrast CT orCTA to suggest acute infarct. MR Brain without and with IV Contrast Result Date: 01/10/2022 Impression: Interval repeat left temporoparietal craniotomy and resection of left temporoparietal region mass, since MRI 01/09/2022. Expected postoperative left convexity extra-axial collection and pneumocephalus, similar vasogenic edema and mass effect resulting in 12 mm rightward midline shift, stable. Enhancement surrounding the resection cavity should be postoperative without evidence for gross residual enhancing tumor. ASSESSMENT / PLAN In Summary, Ms. Cedillo presents with PMH significant for grade 3 astrocytoma, IDH wildtype, MGMT unmethylated s/p left temporoparietal stereotactic craniotomy and complete tumor resection who presentsto IPR with right hemiparesis, altered mental status, and expressive aphasia. We will admit for comprehensive inpatient rehabilitation including physical, occupational, speech, recreational, rehabilitation nursing care, rehabilitation psychologist evaluation and treatment, withphysiatry to monitor the changing neurological clinical status, manage new and previously existing medical conditions, and coordinate care among rehabilitation disciplines. Please see preadmission assessment screen dated today for inpatient rehabilitation goals. OT to work on upper extremity range of motion, fine motor coordination activities, activities of daily living,instrumental activities of daily living, review of adaptive equipment needs. PT to work on range ofmotion of the lower extremities, strengthening and stretching of lower limbs as functionally indicated, work on standing, work on transfers, and Gait with/without braces and/or gait aids. Speech to work on expression and cognition. Nursing will monitor variable vital signs and behavior, monitor and coordinate medicine compliance, provide consistent carry-over of rehabilitation interventions and approaches to the bedside, and provide diagnosis-specific education to patient's family members. NursingCare coordinator to assist with dismissal planning. 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 Continue with PT, OT and SPONSORSHIP COORDINATOR to achieve goals as stated above -Pain control: Continue acetaminophen 1,000 mg PO q6h and oxycodone 5-10mg Q4H PRN. Will work on weaning -Seizure ppx: Continue Keppra 1,000 mg PO BID. Will remain on this until ANDRESSA follow up. -Continue dexamethasone taper as follows: 3 mg q6h PO for 6 doses, followed by 2 mg q6h for 16 doses, then 1 mg q6h for 16 doses #GERD -Continue pantoprazole 40 mg po qAM FULL CODE as discussed with patient. Diet: Regular. DVT prophylaxis: Lovenox Bowel: Senna, miralax and suppository as needed. Bladder: Currently voiding; will do bladder scan PVRs to rule out retention Disposition: ELOS 10 days; goal to home Note written by Benjamín Warner MD PGY-2 with assistance from Kory Starks, MS4 Please contact the brain rehabilitation service pager [phone] with questions or concerns. documented in this encounter Consult Notes Juan Carlos Butler P.T., Pillo.P.T. - 01/18/2022 4:46 PM CDT Physical Therapy Rehabilitation [facility] Inpatient Evaluation/Treatment SUBJECTIVE Referring/Attending Provider: Yolette Gleason M.D. Patient's Name: Mia Richardson Reason for Referral: PT Evaluate and treat - Brain IRF Medical Diagnosis: 1. Tumor Brain (HCC) 2. Aphasia 3. Deficit Cognitive Communication 4. Abnormal Gait Non Orthopedic Onset Date: 01/09/22 Payor: [employer] / Plan: [employer] [place] / Product Type: PPO / PERTINENT MEDICAL/ SURGICAL HISTORY: Patient Active Problem List Diagnosis ??? Malignant Neoplasm Of Brain (HCC) ??? Tumor Brain (HCC) Past Surgical History: Procedure Laterality Date ??? CRANIOTOMY - STEREOTACTIC Left 01/10/2022 Procedure: Asleep left temporoparietal stereotactic craniotomy tumor resection, speech mapping, supine position, intraoperative MRI, BK ultrasound.; Surgeon: Charles Ivey M.D., Ph.D.; Location:[facility] OR ??? CRANIOTOMY FOR TUMOR Left 12/05/2021 ??? TONSILLECTOMY History of Present Illness: s/p left temporoparietal crani for resection of Grade 3 astrocytoma Please see Hospital Admission History and Physical for full history of present illness. Precautions Other Precautions: fall, impulsive safety awareness, vision, headaches, light sensitivity, right hippain due to likely trochanteric bursitis(question possible injection to help) Patient/Caregiver Goals: Return to home. Wetzel with ADL and IADL tasks. 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 Prior Mobility/Functional Transfers Level of Wetzel: Independent Home Living Type of Home: House Home Layout: One level, Able to live on main level with bedroom/bathroom Home Layout Comments: Ten steps with single rail to access main level. Home Access: Level entry Bathroom Shower/Tub: Tub/shower unit Tub/shower unit location: Main floor Tub/shower unit enclosure type: Curtain Home Living Comments: Patient responding to all questions, but tends to perseverate and is not a realiable historian as evidenced by inconsistencies in responses and non-sensical statements. Per chart,her mother from [place] has been living with her recently and she has 3 children ages 29, 23, 21. Patient mentioned having a boyfriend named Erich. Home Equipment Home Adaptive Equipment: None Fall Risk (65 and older) Fall in the last 12 months: No Are you fearful of falling?: Yes OBJECTIVE Pain: None Vitals:Not indicated at this time Cognition Arousal/Alertness: Delayed responses to stimuli Attention: Impairments noted Orientation: Disoriented to time Following Commands: Inconsistently following commands, One Step Commands One Step Commands: Follows one step commands with increased time, Follows one step commands with repetition Safety/Judgment: Impairments noted Impulsivity: Mild Light Touch: Partial deficits in the RLE Paresthesia Comments: Decreased sensation throughout L4 dermatome which is patient's baseline. Proprioception: No deficits Inattention/Neglect: Cues to attend to right visual field ROM - Upper Extremity Screen: Addressed, no concerns noted ROM - Lower Extremity Screen: Addressed, no concerns noted Strength - Upper Extremity Screen: Addressed, no concerns noted Strength - Lower Extremity Screen: Addressed, no concerns noted Strength - Lower Extremity Screen Comments: Very minor weakness in right dorsiflexion strength, though within functional limits and measured at 5/5. Bed Mobility - Rolling Level of Assistance: Independent Bed Mobility - Supine to Sit Level of Assistance: Independent Bed Mobility - Sit to Supine Level of Assistance: Independent Sit to Stand Transfers # of Assistants: 1 Transfer Surface: Bed Transfer Equipment: Gait belt Level of Assistance: Supervision/set-up Assessment/Delivery: Assessed, Therapist assisted Comments: Standby assist for mild instability. Stand to Sit Transfers # of Assistants: 1 Transfer Surface: Chair Transfer Equipment: Gait belt Level of Assistance: Supervision/set-up Assessment/Delivery: Assessed, Therapist assisted, Facilitated, Instructed Comments: Cues for impulsiveness. Bed, Chair, Wheelchair Transfers # of Assistants: 1 Transfer Surface: Chair Transfer Approach: To and from, Ambulating Transfer Equipment: No device Level of Assistance: Supervision/ Set-up Assessment/Delivery: Assessed, Instructed Gait Assessment/Training Distance (m): 200 m Surface: Even, Smooth/hard, Uneven, Incline, Decline Device: Gait belt # of Assistants: 1 Level of Assistance: Supervision/Set-up Quality/Pattern: Antalgic, Decreased heel strike, Decreased toe off Stability: Good Assessment of Gait: Slow cautious gait pattern even sukumar and decreased arm swing. Occasionally rapid pace with impulsiveness and decreased awareness of right side of environment. Cueing Provided: Verbal, Tactile Training/Intervention: Cues for normal pace, right-sided awareness as well as path finding activity completed around unit for dual task challenge. Response: No adverse effects Stairs/Curb # Stairs: 12 Rails: 1 Device: No device, Gait belt # of Assistants: 1 Level of Assistance: Supervision/Set-up Stair Navigation Pattern-Ascending: Reciprocal pattern Stair Navigation Pattern-Descending: Reciprocal pattern PT Neuromuscular Re-education Neuromuscular Re-education 1: Weaving and out of cones in forward and sideways directions to facilitate increased awareness toward right side during dynamic mobility. Neuromuscular Re-education 2: Ball toss activity with emphasis right-sided catching promote increased awareness toward right side. Progress activity with forwards and sideways walking to increase challenge. Further progression of dual tasking with flashing numbers in a right-sided visual field during activity with patient given cues to report numbers as they were shown. Team Conference Updates: Additional Team Conference Comments (PT): Patient is independent with bed mobility, supervision assistance for [id number] transfers and ambulation without assistive device due to mild instability as well as poor awareness of right side of environment. Supervision assistance using single hand rail for stairs with step over step pattern. Patient requires increased time to process commands and cues to maintain right-sided awareness. Quality Indicators: Roll Left and Right Assistance Needed: Independent CARE Score - Roll Left and Right: 6 Sit to Lying Assistance Needed: Independent CARE Score - Sit to Lyin Lying to Sitting on Side of Bed Assistance Needed: Independent CARE Score - Lying to Sitting on Side of Bed: 6 Sit to Stand Assistance Needed: Supervision CARE Score - Sit to Stand: 4 Chair/Yfv-hu-Soymc Transfer Assistance Needed: Supervision CARE Score - Chair/Faq-sw-Ssshu Transfer: 4 Car Transfer Assistance Needed: Supervision CARE Score - Car Transfer: 4 Walk 10 Feet Assistance Needed: Supervision CARE Score - Walk 10 Feet: 4 Walk 50 Feet with Two Turns Assistance Needed: Supervision CARE Score - Walk 50 Feet with Two Turns: 4 Walk 150 Feet Assistance Needed: Supervision CARE Score - Walk 150 Feet: 4 Walking 10 Feet on Uneven Surfaces Assistance Needed: Supervision CARE Score - Walking 10 Feet on Uneven Surfaces: 4 1 Step (Curb) Assistance Needed: Supervision CARE Score - 1 Step (Curb): 4 4 Steps Assistance Needed: Supervision CARE Score - 4 Steps: 4 12 Steps Assistance Needed: Supervision CARE Score - 12 Steps: 4 Picking Up Object Assistance Needed: Physical assistance Physical Assistance Level: 25% or less CARE Score - Picking Up Object: 3 DYNAMIC GAIT INDEX: 1. Gait Level Surfaces: 3. Normal: Walks 20', no assistive devices, good speed, no evidence for imbalance, normal gait pattern. 2. Change in Gait Speed: 3. Normal: Able to smoothly change walking speed without loss of balance orgait deviation. Shows a significant difference in walking speeds between normal, fast and slow speeds. 3. Gait with Horizontal Head Turns: 2. Mild Impairment: Performs head turns smoothly with slight change in gait velocity, ie., minor disruption to smooth gait path or uses walking aid. 4. Gait with Vertical Head Turns: 3. Normal: Performs head turns smoothly with no changes in gait. 5. Gait and Pivot Turn: 3. Normal: Pivot turns safely within 3 seconds and stops quickly with no loss of balance. 6. Step Over Obstacle: 3. Normal: Is able to step over the box without changing gait speed, no evidence of imbalance. 7. Step around Obstacles: 2. Mild Impairment: Is able to step around both cones, but must slow down and adjust steps to clear cones. 8. Steps: 2. Mild Impairment: Alternating feet, must use rail. Score: 21 /24 Interpretation: <19 indicates an increased risk of falls. Education Provided to: Mia Learner's Response: Able to teach back At the end of today's therapy session patient was left seated in bedside chair with an appropriate call light within reach. Patient's needs and questions addressed during today's session. Contact Monitoring: PPE used during therapy: Therapist was wearing the following PPE throughout entire session: surgicalmask and eye protection Additional Staff Present During Session: Not Assessment Patient is pleasant and very hardworking in therapy. Overall she demonstrates mild instability during gait and has poor awareness of right-side of environment causing her to occasionally bumped into objects on right side. She requires increased time to process simple commands and struggles to recallher room number or location in afternoon session despite practicing these in the morning. Rehab Potential: Ms. Cedillo has Good potential to achieve established physical therapy goals withinthe time frame outlined below. Barriers to Discharge Home: Current functional status, Safety concerns, Fall risk Comorbid Conditions: Cancer, Obesity Personal Factors: Visual impairment, Safety awareness, Communication deficit, Balance impairment Discharge Therapy Needs - PT: Ongoing skilled physical therapy Level of Care Needed - PT: Physical assistance needed, Cognitive assistance needed Functional Goals and Timeframes: PT Goal #1: Patient will demonstrate independence with bed mobility by discharge to allow for improved independence with functional mobility. PT Goal #2: Patient will demonstrate independence with [id number] transfers by discharge to allow for improved safety with functional mobility. PT Goal #3: Patient will demonstrate independence with ambulation and least restrictive device to allow for improved independence with functional mobility. PT Goal #4: Patient will demonstrate ability to ascend/descend 10 stairs with single handrail independently to allow for safe discharge. Progress: Progressing toward goals Plan Patient agrees with the plan of care and goals. Treatment Plan: PT Frequency: 6 times per week PT Amount: 1 visit per day PT Inpatient Duration : Until goals are met or hospital discharge Plan: Plan of care initiated Treatment interventions may include: Treatment/Interventions: Therapeutic exercise, Therapeutic functional activity, Neuromuscular re-education, Gait training Clinical Presentation: Evolving Number of Examination elements: 3 Clinical Decision Making: Moderate complexity clinical decision making Time Spent with Patient Evaluations PT Eval - Mod Complexity: 20 min Therapeutic Interventions Neuromuscular Re-Education (min): 50 min Therapeutic Activity (min): 20 min Time Tracking Total Timed Units (min): 70 min Total Treatment Time (min): 90 min PT Individual : 90 Minutes Juan Carlos Butler P.T., D.P.T. Clarisa Rodriguez Pillo - 01/18/2022 4:26 PM CDT [facility] Evaluation/Treatment SUBJECTIVE Referring/Attending Provider: Francois Gonzalez M.D. Patient's Name: Mia Richardson Reason for Referral: OT Evaluate and Treatment; [facility] Medical Diagnosis: 1. Tumor Brain (HCC) 2. Aphasia 3. Deficit Cognitive Communication 4. Abnormal Gait Non Orthopedic Onset Date: 01/09/22 Payor: [employer] / Plan[place] / Product Type: PPO / PERTINENT MEDICAL / SURGICAL HISTORY: Patient Active Problem List Diagnosis ??? Malignant Neoplasm Of Brain (HCC) ??? Tumor Brain (HCC) Past Surgical History: Procedure Laterality Date ??? CRANIOTOMY - STEREOTACTIC Left 01/10/2022 Procedure: Asleep left temporoparietal stereotactic craniotomy tumor resection, speech mapping, supine position, intraoperative MRI, BK ultrasound.; Surgeon: Charles Ivey M.D., Ph.D.; Location:[facility] OR ??? CRANIOTOMY FOR TUMOR Left 12/05/2021 ??? 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 SeeHospital Admission History and Physical for full history of present illness. Precautions Other Precautions: fall risk, decreased safety awareness, right visual field cut Patient/Caregiver Goals: Return to home. [place] with ADL and IADL tasks. To initiate asking questions to medical team and to family members. 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 Home Living Type of Home: House Home Layout: One level, Able to live on main level with bedroom/bathroom Home Layout Comments: Ten steps with single rail to access main level. Home Access: Level entry Bathroom Shower/Tub: Tub/shower unit Tub/shower unit location: Main floor Tub/shower unit enclosure type: Curtain Home Living Comments: Patient reports her mother from [place] has been living with her recently. She has 2 children ages 23 and 29. Patient mentioned having a boyfriend who lives close by. Home Equipment Home Adaptive Equipment: None Fall Risk (65 and older) Fall in the last 12 months: No Are you fearful of falling?: Yes OBJECTIVE Patient met seated in bedside chair upon arrival with chair alarm on. Pain: No pain reported this date. Cognition Arousal/Alertness: Delayed responses to stimuli Attention: Impairments noted Orientation: Oriented X4 Following Commands: Inconsistently following commands, One Step Commands One Step Commands: Follows one step commands with increased time, Follows one step commands with repetition Executive Functioning: Impairments noted Planning: Moderate Executive Functioning Comments: Impairments noted when obtaining clothing items from closet to complete activities of daily living. Required verbal cuing for obtaining undergarments. Safety/Judgment: Impairments noted Impulsivity: Mild Baseline Vision/Correction: Wears glasses all the time Current Deficits Observed: Visual field deficits-right, Convergence insufficiency Light Touch: No deficits Proprioception: No deficits Current Hearing Function: Hearing intact ROM - Upper Extremity Screen: Addressed, no concerns noted Strength - Upper Extremity Screen: Impaired right Strength - Upper Extremity Screen Comments: Left upper extremity strength within normal limits. Right upper extremity slightly impaired. See manual muscle testing scores. RUE Strength R Shoulder Flexion: 5/5 R Shoulder Extension: 5/5 R Shoulder ABduction: 4/5 R Shoulder Internal Rotation: 4/5 R Shoulder External Rotation: 4/5 R Elbow Flexion: 5/5 R Elbow Extension: 4/5 R Forearm Pronation: 5/5 R Forearm Supination: 5/5 R Wrist Flexion: 5/5 R Wrist Extension: 5/5 LUE Strength L Shoulder Flexion: 5/5 L Shoulder Extension: 5/5 L Shoulder ABduction: 5/5 L Shoulder Internal Rotation: 5/5 L Shoulder External Rotation: 5/5 L Elbow Flexion: 5/5 L Elbow Extension: 5/5 L Forearm Pronation: 5/5 L Forearm Supination: 5/5 L Wrist Flexion: 5/5 L Wrist Extension: 5/5 Quality Indicators: Repetition of Three Words (First Attempt): 3 Temporal Orientation: Year: Correct Temporal Orientation: Month: Accurate within 5 days Temporal Orientation: Day: Correct Recall: Sock: Yes, no cue required Recall: Blue: Yes, no cue required Recall: Bed: No, could not recall BIMS Summary Score: 13 Comments: Patient is experiencing aphasia. Hearing, Speech, and Vision Expression of Ideas and Wants: Frequent difficulty Understanding Verbal and Non-Verbal Content: Sometimes understands Eating Assistance Needed: Independent Physical Assistance Level: No physical assistance CARE Score - Eatin Oral Hygiene Assistance Needed: Supervision Physical Assistance Level: No physical assistance CARE Score - Oral Hygiene: 4 Comments: Patient completed standing at sink with supervision assistance provided for safety. Toileting Hygiene Assistance Needed: Supervision Physical Assistance Level: No physical assistance CARE Score - Toileting Hygiene: 4 Shower/Bathe Self Assistance Needed: Supervision Physical Assistance Level: No physical assistance Comment: Seated shower on built-in shower bench CARE Score - Shower/Bathe Self: 4 Upper Body Dressing Assistance Needed: Supervision Physical Assistance Level: No physical assistance CARE Score - Upper Body Dressin Comments: Patient obtained clothing items from closet but required one verbal cue to obtain bra. Donned bra, shirt, and jacket seated edge of bed. Lower Body Dressing Assistance Needed: Supervision Physical Assistance Level: No physical assistance CARE Score - Lower Body Dressin Comments: Demonstrated ability to obtain clothing items from closet but required one verbal cue to obtain underwear. Donned underwear, pants, and socks seated edge of bed. Putting On/Taking Off Footwear Assistance Needed: Supervision Physical Assistance Level: No physical assistance CARE Score - Putting On/Taking Off Footwear: 4 Comments: Patient performed edge of bed using figure-four technique. Toilet Transfer Assistance Needed: Supervision Physical Assistance Level: No physical assistance CARE Score - Toilet Transfer: 4 Comments: Patient completed with supervision assistance provided for safety. Therapeutic Functional Activity Therapeutic Functional Activity Comments: Patient complete activity to complete scanning from L to Rto cross out the number 88. Patient completed with 100% accuracy and no reports of double vision or blurry vision throughout task. Hand Testing: Right Hand Left Hand Live Ammunition Inspector Handle Setting 2 - Score 1 (kg): 34 kg Handle Setting 2 - Score 2 (kg): 36 kg Handle Setting 2 - Score 3 (kg): 37 kg Handle Setting 2 - Final Score (kg): 35.67 kg Female/50 right hand norm = 30 kg Handle Setting 2 - Score 1 (kg): 35 kg Handle Setting 2 - Score 2 (kg): 38 kg Handle Setting 2 - Score 3 (kg): 36 kg Handle Setting - Score Final (kg): 36.33 kg Female/50 left hand norm = 26 kg Lateral Pinch Lateral - Score 1 (kg): 6 kg Lateral - Score 2 (kg): 6 kg Lateral - Score 3 (kg): 6 kg Lateral - Score Final (kg): 6 kg Female/50 right hand norm = 7.6 kg Lateral - Score 1 (kg): 7.5 kg Lateral - Score 2 (kg): 7.5 kg Lateral - Score 3 (kg): 7 kg Lateral - Score Final (kg): 7.33 kg Female/50 left hand norm = 7.3 kg Tripod Pinch Tripod (3 point) - Score 1 (kg): 7 kg Tripod (3 point) - Score 2 (kg): 6 kg Tripod (3 point) - Score 3 (kg): 6.5 kg Tripod (3 point) - Final Score (kg): 6.5 kg Female/50 right hand norm = 7.9 kg Tripod (3 point) - Score 1 (kg): 7 kg Tripod (3 point) - Score 2 (kg): 7.5 kg Tripod (3 point) - Score 3 (kg): 7 kg Tripod (3 point) - Final Score (kg): 7.17 kg Female/50 left hand norm = 7.5 kg Tip Pinch Tip (2 point) - Score 1 (kg): 5 kg Tip (2 point) - Score 2 (kg): 5.5 kg Tip (2 point) - Score 3 (kg): 6 kg Tip (2 point) - Final Score (kg): 5.5 kg Female/50 right hand norm = 5.7 kg Tip (2 point) - Score 1 (kg): 5 kg Tip (2 point) - Score 2 (kg): 6 kg Tip (2 point) - Score 3 (kg): 5.5 kg Tip (2 point) - Final Score (kg): 5.5 kg Female/50 left hand norm = 5.1 kg Box and Blocks Gross motor coordination was assessed using the Box and Blocks test, measured by the number of blocks moved in a minute, and compared against norms based on gender and age range. Right: 62 blocks Left: 68 blocks Female/50 right hand norm = 77.7 blocks Female/50 left hand norm = 74.3 blocks 9 Hole Peg Fine motor coordination was assessed using the 9 Hole Peg test, measured in seconds, and compared against norms based on gender and age range. Right: 18 seconds Left: 18 seconds Female/50 right hand norm = 18 seconds Female/50 left hand norm = 20.1 seconds Patient/Family Education: Compensatory mechanism for visual scanning techniques Education Provided to: Mia Learner's Response: Requires continued education At the end of today's therapy session patient was left with the chair alarm on with an appropriate call light within reach. Patient's needs and questions addressed during today's session. Contact Monitoring: PPE used during therapy: Therapist was wearing the following PPE throughout entire session: surgicalmask and eye protection Patient was wearing a mask during therapy session: when outside of hospital room. Additional Staff Present During Session: GINA Levy Assessment Mia is a pleasant 51-year-old female seen today for an initial occupational therapy evaluation. Shepresents with right-sided environmental inattention, cognitive impairments, right visual field cut, and decreased insight into how her deficits may impact her function. She completed activities of daily living such as dressing and toileting with supervision assistance this date for safety and required2 verbal cues to obtain undergarments needed for dressing. She benefits from one-step commands during activities of daily living. She completed visual scanning worksheet activity with 100% accuracy butwas noted to veer significantly towards right side when when walking from hospital room to OT gym indicating right-sided environmental inattention. To address right visual field cut and right-sided environmental inattention, education was provided to use visual scanning techniques to navigate environment safely. Patient will require ongoing cues to implement visual scanning techniques consistently. Standardized testing of gross motor coordination indicate slight impairments bilaterally but within functional limits. Fine motor coordination within normal limits as indicated by standardized testing scores. Live Ammunition Inspector/pinch strength within normal limits (see scores above). Patient would benefit from a formal cognitive assessment. Patient is performing below functional baseline and requires ongoing skilled OT to address previous listed deficits to improve independence with ADL and IADL tasks. Rehab Potential: Ms. Cedillo has good potential to achieve established occupational therapy goals within the time frame outlined below. Barriers to Discharge Home: Current functional status, Safety concerns, Fall risk Comorbid Conditions: Cancer Personal Factors: Visual impairment, Safety awareness, Communication deficit, Balance impairment Discharge Therapy Needs - OT: Ongoing skilled occupational therapy Level of Care Needed - OT: Assistance with toilet/shower transfers, Assistance with medication set up/administration, Assistance with showering/bathing, Assistance with dressing, Assistance with meal preparation, Assistance with financial operations clerk, Assistance with transportation, Assistance with hous ekeeping, Assistance with shopping, Cognitive assistance needed Recommended Adaptive Equipment - OT: Other (Comment) Ongoing assessment Functional Goals and Timeframes: OT Goal #1: By next ITC, patient will perform instrumental activities of daily living (i.e., medication management, laundry) with supervision assistance with <50% verbal cuing to complete task. OT Goal #1 Status: Ongoing (Goal not addressed this date.) OT Goal #2: By next ITC, patient will complete simple meal preparation task with supervision assistance with 100% safety awareness with <2 verbal cues provided. OT Goal #2 Status: Progressing OT Goal #3: By discharge, patient will complete multiple errands task with supervision assistance without verbal cuing to implement visual scanning techniques when navigating environment. OT Goal #3 Status: Progressing (Patient provided education on visual scanning techniques and requires continued education to implement consistently.) OT Goal #4: By discharge, patient will perform dressing routine with modified independence without verbal cuing for sequencing steps of task. OT Goal #4 Status: Progressing (Patient required 2 direct verbal cues to obtain undergarments neededfor dressing this date.) Progress: Progressing toward goals Plan Patient agrees with the plan of care and goals. Treatment Plan: OT Frequency: 6 times per week OT Amount: 1 visit per day OT Inpatient Duration : Until goals are met or hospital discharge Plan: Plan of care initiated OT Plan Comments: Functional cognitive tasks and further cognitive assessments, further vision interventions for right visual field cut, executive functioning as it relates to ADL performance, instrumental activities of daily living including meal preparation, laundry, household management Treatment interventions may include: Treatment Interventions: Therapeutic functional activity, Neuromuscular re- education, Self-care/homemanagement, Cognitive skills training, Therapeutic exercise, Therapeutic modalities as needed, Orthosis [id number], Manual therapy Occupational Profile and History review: Expanded Performance Deficits: 3 - 5 performance deficits Evaluation Complexity: Moderate Time Spent with Patient Evaluations OT Eval - Mod Complexity: 30 min Therapeutic Interventions Home Management Training (min): 30 min Therapeutic Activity (min): 8 min Therapeutic Exercise (min): 22 min Time Tracking Total Timed Units (min): 60 min Total Treatment Time (min): 90 min OT Individual: 90 Minutes KITA Mcgee Associated attestation - Muriel Cifuentes M.S., O.T. - 01/22/2022 9:23 AM CDT This therapist has reviewed all documentation and supervised today???s session. The therapist agreeswith the plan developed in collaboration with the patient. Taina Velazquez L.I.C.S.W., M.S.W. - 01/18/2022 1:00 PM CDTAssociated Order(s): IP CONSULT TO CARE MANAGEMENT Psychosocial Assessment SUBJECTIVE Assessment Information Referral Source: Provider/Service Referral Name: Physical Medicine and Rehabilitation Referral Reason: Psychosocial assessment, Coping, adjustment and support, Discharge Planning Previous assessment done on: 01/14/22 Previous assessment done by: Paulina Jiménez RN Primary Language: Malagasy Infant Caregiver Services Used: No Sexuality/Pronoun: Straight (not lesbian or mijares) She/Her/Hers Person(s) present during interview: patient Disclaimer: They were advised of the various topics that will be assessed during this evaluation. They consented to proceed. The information provided in the assessment is based on review of the medical record as well as the face to face interview. They were advised that the content of this interview will be shared with the health care team and documented in the medical record. They were advised that anyone with access to their patient portal will have access to this information. It was discussed that staff are mandated reporters and they reported understanding. History of Present Illness #1 Malignant Neoplasm Of Brain (HCC) #2 Tumor Brain (HCC) In Summary, Ms. 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 Please review the medical record for additional details regarding the patient's medical history. Social History Citizenship: [place] Citizen Resident Status: [place] Resident Marital Status: - Ms. Cedillo reported that she is currently in a relationship with her significant other, Erich, whom she has been dating for almost one year. Family / Household: Ms. Cedillo stated that she resides with her 21-year old son. She explained thather 23-year old daughter and her mother, Libby, are currently staying with her to provide assistance during her recovery. Support System: significant other, parent(s), children, family members and friends/neighbors Primary Caregiver: family Caregiver Information: Caregiver Name: Libby Murdock Caregiver Relationship: Mother Caregiver Patient's Home Environment: Single-level, second story apartment with 10 steps to access from the ground floor. No steps to enter the building. 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 She stated that she has FMLA and short-term disability benefits available, which she has applied for. Psychosocial Risk Factors Impacting the Patient: none Maltreatment: none reported Trauma: none reported Current Legal Status: Voluntary Current Stressors Recent tumor diagnosis, change in functional status/increased need for assistance, difficulty with word-finding, uncertainty surrounding recovery Coping Skills/Strengths Coping Skills: Reframing, Distress tolerance skills from DBT, Distraction through reading and watching television, Talking with friends and family Strengths: Motivation, Support of family, Support of friends, Attitude of self, Attitude of family Financial/Insurance Primary insurance: [facility] Secondary insurance: N/A Does the patient have any financial concerns? No Advance Directives Legal Decision Maker: Self Advance Directives Status: None on file Baseline Functional Status Baseline Activities of Daily Living Mobility: Assistance of one Dressing: Needs assistance Feeding: Independent Bathing: Needs assistance Grooming: Needs assistance Toileting: Needs assistance Behavior: Appropriate, Pleasant, Calm, Cooperative, Oriented Communication: Can write, Talks, Understands speaking, Understands Malagasy, Reads Shopping: Needs assistance Transportation: Support from family Medication Management: Needs assistance Housekeeping: Needs assistance Meal Prep: Needs assistance Managing Finances: Needs assistance Assistive Devices: Cellphone, Eyeglasses Baseline Services/Resources Primary care clinic and provider: [facility]// Marie Nettles MD Ms. Cedillo reported that she was not utilizing formal services prior to this hospital admission. She identified having informal support from her mother, family, and her significant other. Anticipated Needs Functional Status: Meal preparation, Medication set-up/administration, Housekeeping, Shopping, Managing finances, Transportation use (drive car, use taxi/bus), and Other needs as determined during the rehabilitation course Assistive Devices: To be determined, pending rehabilitation course Anticipated Modifications to the Patient's Home: None Transportation Needs: Support from family Does the patient need discharge transport arranged?: No Anticipated Discharge Destination: Home or Self Care OBJECTIVE Substance Abuse Ms. Cedillo did not endorse current or previous concerns surrounding the use of alcohol, tobacco, orother recreational substances. Mental Health Mental Health History: Patient reports no mental health history and no current concerns Suicide Risk and Safety Risk Assessment: C-SSRS: Utilizing the Oxford Suicide Risk Severity Scale (C-SSRS), the patient is assessed as low risk. Homicidal: no Mental Status Orientation: Oriented to person, place and time Level of consciousness: Awake and alert Appearance: Relaxed, Well-groomed and Younger than age appearing Behavior observed: Calm and Interactive Memory: Grossly intact Concentration: Grossly intact Cooperation: cooperative and forthcoming Mood: calm and euthymic Affect: Mood-congruent, Stable and Within a normal range Speech: Coherent, Within normal limits for volume, rate and tone and Demonstrated difficulty with word-finding Thought content: No abnormality noted and Does not appear to respond to internal stimuli Thought process: Logical, linear, and goal-directed Judgement: intact and adequate Insight: intact and adequate Review of Psychiatric Symptoms: Sleep/insomnia: no sleep concerns Energy: stable Appetite/weight: unchanged Anxiety symptoms: generalized worries Depression symptoms: tearfulness and irritability in response to external stressors Madyson/hypomania symptoms: no symptoms Psychotic symptoms: no symptoms Trauma response symptoms: no symptoms Neurocognitive symptoms: decline in cognitive function and requires assistance with ADLs Other Mental Health Assessments No additional screenings completed during this assessment ASSESSMENT / PLAN Discussion Social work met with the patient, Ms. Cedillo, in her room on the rehabilitation unit to provide support and complete an assessment following the patient's admission to [place] [address]. Fashion Designer introduced self and the role of social work in the inpatient rehabilitation setting. It was discussed with the patient that staff are mandated reporters and she reported understanding. Ms. Cedillo reported that she plans to return home upon discharge from inpatient rehabilitation. Shestated that she lives with her son in a single-level, second- story apartment in [place]. She noted that her adult daughter arrived this week and will be staying with her to provide assistance. She shared that her mother, Libby, is a retired [employer] practice physician and has been staying with them for several weeks since her diagnosis and will continue to stay with them to be a support during her recovery. Ms. Cedillo expressed that she does not have concerns about the layout of her home environment or her ability to mobilize safely within it. 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 She reflected on how her work has equipped her with coping skills that she has utilized following her diagnosis. She discussed how she has implemented dialectical thought (both/and thinking) and distress tolerance strategies. Ms. Cedillo identified that she cannot think in terms of fairness because nothing about this situation is fair. She reported that she worked to establish a healthy lifestyle over the past several years and was able to lose weight. She expressed that she was intentional about what consumed. She stated that it does not make sense that she is now on multiple medications and has been diagnosed with cancer after I've done all the right things. Ms. Cedillo expressed that she did not have specific questions, concerns, or a need for resources atthis time. Social work discussed that ongoing support would be available and she could request a visit at any time. Assessment/Impressions Ms. Cedillo appeared to be motivated for this rehabilitation stay and to regain her independence. She articulated adequate understanding of her current condition and demonstrated insight into potentialdischarge needs. She identified a reasonable discharge plan, including naming individuals who can provide assistance with various needs. Ms. Cedillo was forthcoming about her mood and coping. She seemed to be engaged in meaning-making efforts and to have an overall positive outlook regarding her current circumstances. She acknowledged having appropriate moments of frustration and sadness, though appeared to be coping well. Interventions Completed comprehensive psychosocial assessment Introduced role of social work in the inpatient rehabilitation setting Utilized strengths-based perspective, rapport building, empathetic statements, solution focused therapeutic interventions, and humor during discussions surrounding mental health symptoms, coping skills, medical needs, and discharge planning. Plan 1. The patient is anticipated to discharge home with assistance from family. If this plan changes, please contact social work for assistance with discharge planning. 2. Social work will continue to be available to the patient and family for ongoing support and discussion of community resources. Анна Balderas.Rusty.S.Yasmeen., M.S.W. 01/18/2022 Clover Yoder M.A., CCC-SPONSORSHIP COORDINATOR - 01/18/2022 10:30 AM CDT Speech Language Pathology Communication/Cognitive Evaluation - Inpatient Rehabilitation Unit Session Type: Treatment Length of session: 30 minutes SUBJECTIVE Referred By: [facility] History: Ms. Cedillo is a right handed 51 y.o. female who was admitted to the [place] [facility] [address] Inpatient Rehabilitation Unit on 01/17/2022 due to resection of brain tumor. Ms. Cedillo's medical history is well documented in the electronic medical record, please refer to admission notes for full history. Briefly, Ms. 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 with right hemiparesis, altered mental status, and expressive aphasia. Ms. Cedillo previously received Speech Pathology services addressing aphasia and cognition. Speech Pathology consult was received for evaluation of aphasia and cognitive communication. Prior Level of Functioning: Ms. Cedillo was previously independent with all ADL and IADLs. She lives [place] her significant otherin [place], [place]. 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 Highest level of education completed was an advance college degree. Patient/Family Goal(s): To express, comprehend and remember new information. Pain: No pain reported at time of evaluation. General Family/Caregiver Present: No Arousal/Alertness: Appropriate responses to stimuli Behavior: Alert, Cooperative, Distractible, Pleasant mood OBJECTIVE Objective Session Data Motor Speech Voice: Within Normal Limits (WNL) Resonance (ELECTRIC MOTOR REPAIR SUPERVISOR Function): Within Normal Limits (WNL) Articulation: Within Normal Limits (WNL) Rate and Prosody: Within Normal Limits (WNL) Intelligibility: Intelligible Auditory Comprehension Yes/No Questions: Within Normal Limits (WNL) Commands: Impaired One Step Basic Commands: 100% Two Step Basic Commands: 75% Conversation Comprehension: Moderate Reading Comprehension Reading Status: Impaired Scanning/Trackin% accuracy Words: 100% accuracy Sentence: 61-80% accuracy Interfering Components: Attention Effective Techniques: Prescription glasses/contact lenses Verbal Expression Primary Mode of Expression: Verbal Primary Language: Malagasy Generative Naming/Word Fluency: 61-80% accuracy Open Ended Questions: 81-99% accuracy Conversation: Impaired Impaired Conversation: Moderate Verbal Communication Comments: Can be tangential and somewhat anxious especially when word finding difficulties arise. Cognition Overall Cognitive Status: Impaired Attention: Impaired Sustained: Mild Alternating: Moderate Memory: Impaired Orientation: Oriented X4 Problem Solving: Impaired Impulsive: Mildly impulsive Executive Functioning: Impaired Pragmatics Affect: Within Normal Limits (WNL) Prosody: Within Normal Limits (WNL) Eye Contact: Within Normal Limits (WNL) Humor: Within Normal Limits (WNL) Topic Initiation: Within Normal Limits (WNL) Topic Maintenance: Mild Turn Taking: Mild Assessment This morning, Ms. Nguyen Nguyen) was referred to Speech Pathology for difficulties related to both language and cognition after tumor resection. She was followed by colleagues off floor in Speech Pathology which revealed both an aphasia and cognitive communication deficit. Today Mia is seen independently in her room with medical student observing. She is seated upright in recliner. Mia was able to state her name and purpose of admission very simply. She responded to 4/5 simple one step commands and had difficulty following more complex two step commands. When conversation became more complicated she had difficulty following along and needed repetitions which were helpful. Mia was somewhat tangential and anxious when word finding difficulties arose. She named 10 simple pictured objects. She was accurate for 6/6 responsive naming items. She often over clarified information and expressed awareness of her deficits. She was encouraged to keep it simple when speaking and admitted she has a sophisticated vocabulary. Mia was able to generate three responses to the question of what are 3 things every good citizen should do? Kind, drive without speeding, vote. When asked why someone might move to a new city she stated Job, get , new house I guess. Lastly, Mia was able to put 4 words in order as stated aloud by clinician in 2/3 trials. She was able to listen to 4 four words and answer a question immediately thereafter in 3/3 trials. This afternoon, Mia was in good spirits but fatigued. We addressed more cognitive related brain skills. She does express some concerns with memory and showed me her marketing planner on her tray table that she wrote down times of therapy in today. Mia was able to list 5 things she would buy from [employer] or [employer] but only after moderate cueing.Do you want me to be detailed? She completed specific subtests from the CLQT which examines cognition/executive function. -Story retelling, 02/09 details in immediate recall, 6/6 yes/no questions -Generative naming, 12 animals named in one minute. -Clock drawing, although she read the directions aloud accurately she had significant difficulty completing placing the hands accurately on the clock, (for example, put 4 hands on clock) -Design generation, 09/28, task discontinued as she was too fatigued and frustrated. In summary, Mia is exhibiting both difficulties related to language and cognition. She will benefit from skilled Speech therapy two times a day to target the below stated goals. She will also benefit from specific training in compensation strategies for language and cognition. Contact Monitoring: Clinician was wearing the following PPE for the duration of today's session(s): surgical mask and eye protection Diagnosis: Impressions Consistent with a diagnosis of: Non-Aphasic Cognitive Communication Disorder, Aphasia Aphasia: Moderate Non-Aphasic Cognitive Communication Disorder: Moderate Goals: Cognition Short Term Goal 1 Cognition Short Term Goal 1: Mia will recall new information related to therapy, safety and routinewith strategy use in 80% of opportunities. Cognition Short Term Goal 1 Progress Toward Goal: Progress toward goal completion: continue on target Auditory Comprehension Short Term Goal 1 Auditory Comprehension Short Term Goal 1: Patient will follow two and multistep commands with extra time in 80% of opportunities. Auditory Comprehension Short Term Goal 1 Progress Toward Goal: Progress toward goal completion: continue on target Verbal Expression Short Term Goal 1 Verbal Expression Short Term Goal 1: Patient will answer basic questions related to therapy and routine with increased time with 100% accuracy. Verbal Expression Short Term Goal 1 Progress Toward Goal: Progress toward goal completion: continue on target Verbal Expression Short Term Goal 2 Verbal Expression Short Term Goal 2: Mia will be able to express more complex and abstract information as it relates to therapy, routine and conversation through strategy use in 80% of opportunities. Verbal Expression Short Term Goal 2 Progress Toward Goal: Progress toward goal completion: continue on target Plan Discharge Location: Unknown SPONSORSHIP COORDINATOR Ongoing Services: Ongoing formal Speech Pathology services Frequency of Treatment: 1-2x/5-6 days per week Duration of Treatment: duration of rehab stay SPONSORSHIP COORDINATOR - Next Inpatient Appointment: 01/19/22 Rehab Potential: Good documented in this encounter Nursing Notes Maritza Guerrero R.N. - 01/25/2022 12:12 PM CDT Shift Goals: Clinical Goals for the Shift: Patient will prepare for discharge. Identify possible barriers to meeting goals/advancing plan of care: none End of Shift Summary: Patient discharged to home with mother with all belongings. They picked up medications from [facility] pharmacy. RN reviewed discharge paperwork and answered questions. RN faxed documents to PCP & outpatient therapy. Problem: PAIN - ADULT Goal: PT VERBALIZES/DEMONSTRATES ADEQUATE COMFORT LEVEL OR BASELINE Outcome: Adequate for Discharge Problem: KNOWLEDGE DEFICIT Goal: Patient/family/caregiver demonstrates understanding of disease process, treatment plan, medications, and discharge instructions Outcome: Adequate for Discharge Problem: INFECTION - ADULT Goal: Absence of infection during hospitalization Outcome: Adequate for Discharge Problem: SKIN/TISSUE INTEGRITY Goal: Skin/Tissue integrity maintained or improved Outcome: Adequate for Discharge Goal: Oral and Nasal mucous membranes remain intact Outcome: Adequate for Discharge Problem: SAFETY ADULT Goal: Maintain a safe environment Outcome: Adequate for Discharge Problem: DISCHARGE PLANNING Goal: Patient discharge needs identified Outcome: Adequate for Discharge Problem: SAFETY ADULT Goal: Maintain a safe environment Outcome: Adequate for Discharge Problem: SAFETY ADULT - RISK FOR FALL AND OR FALL INJURY Goal: Patient remains free from fall/fall injury Outcome: Adequate for Discharge Maritza Guerrero RGiovani. - 01/25/2022 12:12 PM CDT 01/25/22 The Patient Portable Profile contains basic health information (personal, medical, functional). Information contained in the Profile is intended to be updated at each subsequent health encounter so that the patient's healthcare providers can be efficiently informed by more complete and accurate information. The Patient Portable Profile empowers the patient to be responsible for tracking his/her health information on a regular basis. The Patient Portable Profile was given and explained to the patient/family. Electronically signed by: Maritza Guerrero R.N. 01/25/22 12:47 PM CDT The following section(s) of the Patient Portable Profile binder were updated:PPPsections: Risk factors, Functional status, Equipment, Medications, After Visit Summary, Appointments, Educational Materials, Resources and Other Info What other info was updated: Electronically signed by: Maritza Guerrero R.N. 01/25/22 12:47 PM CDT The following section(s) of the Patient Portable Profile binder were reviewed with the patient/family:PPPsections: Risk factors, Functional status, Equipment, Medications, After Visit Summary, Appointments, Educational Materials, Resources and Other Info Electronically signed by: Maritza Guerrero R.N. 01/25/22 12:47 PM CDT The Patient Portable Profile binder was verified to be complete.Electronically signed by: Maritza Guerrero R.N. 01/25/22 12:47 PM CDT Vero Faust CRRN - 01/25/2022 8:29 AM CDT Met with patient and her mom was on speaker phone during rounds. They have therapy appointments scheduled. She will has post hospital follow up on February 06. Plan to discharge to home with her mom later today. Patient will need a copy of her [place] appointment guide. Rehabilitation Services- [place] [address] Nursing should fax [facility] facility and 3 days of therapy notes at time of dismissal. ?? Post Hospital Follow Up: February 06, 2022 Dr. Mohamud [address] [address] Nursing should fax AVS facility and dismissal summary at time of discharge. Olga Najera R.N. - 01/24/2022 6:39 PM CDT Shift Goals: Clinical Goals for the Shift: Patient will prepare for discharge. Identify possible barriers to meeting goals/advancing plan of care: None End of Shift Summary: Patient overall had a good day. Sutures removed. Incision approximated, clean,dry & intact. Remained safe while independent in room. Headaches improved today, only requested one dose of PRN Tylenol late afternoon. Preparing for discharge tomorrow around 1300. Olga Najera R.N. - 01/23/2022 5:59 PM CDT Shift Goals: Clinical Goals for the Shift: Patient will have adequate pain managment of headaches. Identify possible barriers to meeting goals/advancing plan of care: None End of Shift Summary: Patient overall had a good day. Received two doses of PRN Tylenol for headaches. Remained safe while independent. Susana Wiggins R.N. - 01/23/2022 6:35 AM CDT Shift Goals: Clinical Goals for the Shift: sleep enhancement/pain management Identify possible barriers to meeting goals/advancing plan of care: recent surgery End of Shift Summary: patient having increased headache pain and asking for Tylenol early. MD notified and staff gave next dose early. Patient not getting any relief from the Tylenol and very upset. Patient on phone with Mom who is also frustrated. MD notified a second time. MD phoned patient's mom. Neuros and VSS. An additional 2mg of Decadron given along with scheduled 1mg. Patient slept well afterreceiving the Decadron. She is feeling much better this am. Twan Montero R.N. - 01/22/2022 3:12 PM CDT Met with rehabilitation team during interdisciplinary team conference. Afterwards met with patient and mother who was on the phone to update them on details from interdisciplinary team conference. Reviewed progress with therapy and tentative dismissal date of 01/25/2022. The team is recommending to continue with outpatient therapy after discharge. Rehabilitation Services - [address] [address] Nursing should fax AVS facility and 3 days of therapy notes at time of dismissal. Primary Care: [address] [address] Nursing should fax [facility]S facility and dismissal summary at time of discharge. documented in this encounter Miscellaneous Notes Hospital Course - Benjamín Warner M.D. - 01/24/2022 6:53 AM CDT PRE-REHABILITATION COURSE: Per review of the electronic medical record and in discussion with the patient: Ms. Cedillo is a pleasant 51-year-old right-handed dominant female with past medical history of essential hypertension and class I obesity. Up until about a month ago, patient was in normal state of health until she began experiencing episodes of word finding difficulties. Upon outside ED admission, she had forehead bruising with suspected seizures. Subsequent MRI revealed hyperintense mass on T2 imaging that involved the left cerebellum, temporal lobe, parietal lobe, thalamus, and hippocampus. 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 Her care was subsequently transferred here to [facility] where she then underwent a left temporoparietal craniotomy andresection of left temporoparietal region mass. Postoperative there were some concerns regarding subclinical seizures the patient was severely aphasic, with severe headaches and altered mental status, but this significantly improved by postop day 1. PMR was consulted and evaluated the patient while on the acute hospital floor. Patient was requiringsupervision assistance with transfers, ambulation of 75 meters with contact guard assistance, minimal assistance with lower body dressing and grooming. Patient was previously independent of all ADLs without requiring any adaptive equipment. Patient's goal is to dismiss home with independent ambulation with gait aid as needed and ADLs in 10 days. They live in a single-story home with no stairs to enter and 10 stairs with a single railing inside to getto the main floor; bedroom and bathroom are on the main floor. Since this hospitalization, her mother has moved into her house to assist her daughter. 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 She is and has a boyfriend who lives in a separate home. Currently, Mia is resting comfortably in bed during our conversation today. She acted as main historian, but often had difficulties reciting her history and had frequent tangential thoughts. Her mother entered the room during our exam and is a retired family practice physician and will be staying ather daughter???s house. She states her right-sided weakness is longstanding but that it has been significantly worse since surgery. Additionally, she reports a history of right leg and back pain that her mom later described as a herniated disc. She denies any medication use prior to this hospitalization other than a BP med many years ago. She admits to headache, waxing and waning fatigue, double vision, right arm and leg weakness (leg>arm), and aphasia. She denies any hearing loss, chest pain, fecal incontinence, urinary incontinence REHABILITATION COURSE: The patient was admitted to inpatient rehab on 01/17/2022. The patient underwent comprehensive interdisciplinary inpatient rehabilitation with physical therapy, occupational therapy, speech therapy, rehab nursing, medical social welfare research worker, and wash plant operator. The patient made good progress and met criteriato be dismissed from inpatient rehabilitation. Please see below for medical care that was provided during the patient's rehabilitation stay. #Astrocytoma, grade 3 s/p left temporoparietal stereotactic craniotomy and tumor resection #Right Hemiparesis, resolved #Expressive aphasia #Impaired cognition #Altered mental status #Impairments (as noted above), limitations in activities, mobility and self-care skills, with restrictions to participation in designated roles -Admitted for comprehensive inpatient rehabilitation. Continue with PT, OT and SPONSORSHIP COORDINATOR to achieve goals as stated above -Pain control: Continue acetaminophen 1,000 mg PO q6h PRN. -Seizure ppx: Continue Keppra 1,000 mg PO BID. Will remain on this until [facility] follow up. -Continued dexamethasone taper. Scheduled to end 01/26 #GERD -Continued pantoprazole 40 mg DISCHARGE PHYSICAL EXAM: General: Awake, alert, and oriented, no apparent distress, pleasant, and cooperative. Psych: Mood is euthymic, affect is congruent. Ear, Nose, Throat: Normocephalic, atraumatic, moist membranes, anicteric sclerae Lungs: Nonlabored breathing. Heart: No clubbing or cyanosis. Skin: No increased erythema, warmth, rashes, or concerning skin lesions. Cranial Nerves: Extra ocular muscles intact. Possible right sided visual field deficit to lateral field. No dysconjugate gaze. No facial droop. Tongue protrudes midline. Palate elevates symmetrically. Motor/Speech: No dysarthria appreciated. Normal prosody, phonation, resonation. Language: Expressive aphasia. Frequent paraphasic errors for which she was occasionally aware of. She had tangential thoughts. Muscle Strength: (scoring scale: 0=normal to -4=plegic; right/left) Slight right lower extremity drift present -Upper limb: deltoid 0/0; biceps 0/0; triceps 0/0; wrist extensors 0/0; finger extensors 0/0; wrist flexors 0/0; finger flexors 0/0; interossei 0/0. -Lower limb: iliopsoas 0/0, quadriceps 0/0, hamstrings 0/0, anterior tibial 0/0, EHL 0/0, gastroc-soleus 0/0. Tone: Normal tone throughout upper and lower limbs. No ankle clonus bilaterally. Muscle Reflexes (scale: -4=absent, 0=normal, +4=sustained clonus; right/left): Biceps 0/0, Triceps 0/0, Quadriceps 0/0, Gastroc-soleus 0/0. Ant Response: (right/left) absent/absent. Plantar Response: (right/left) flexor/flexor. Coordination: Normal upper and lower limb [place]. Normal grdwyp-afwi-qlkunm. Normal yxqy-vj-yaqa. Sensation: Normal light touch sensation throughout upper and lower limbs. No extinction to double simultaneous stimulation in upper and lower limbs. documented in this encounter Plan of Treatment Upcoming Encounters Date Type Specialty Care Team Description 03/12/2022 Appointment Radiation Oncology Stephanie Gleason M.D. [address] [place] [address] [phone] 03/12/2022 Appointment Radiation Oncology Stephanie Gleason M.D. [address] [place] [phone] 03/13/2022 Appointment Radiation Oncology Stephanie Gleason M.D. [address] [place] [phone] 03/14/2022 Appointment Radiation Oncology Stephanie Gleason M.D. [address] [place] [phone] 03/25/2022 Ancillary Procedure Ophthalmology Chas Shin M.D. [address] [place] [phone] 03/25/2022 Ancillary Procedure Ophthalmology 03/25/2022 Ancillary Procedure Ophthalmology Chas Shin M.D. [address] [place] [phone] 03/26/2022 Ancillary Procedure Ophthalmology Rebeca Valle, Tu.A.-C., M.S. [address] [place] [address] [phone] 03/26/2022 Comprehensive Visit Ophthalmology Chas Shin M.D. [address] [place] [phone] 03/29/2022 Comprehensive Visit Endocrinology Farzana Allen M.D. [address] [place] [phone] 04/04/2022 Appointment Radiology Christina Tai P.A.-Rusty., M.S. [address] [place] [phone] 04/04/2022 Office Visit Oncology Vini Maki M.D., Ph.D. [address] [place] [phone] 04/04/2022 Office Visit Neurological Surgery Charles Ivey M.D., Ph.D. [address] [place] [phone] 05/03/2022 Comprehensive Visit Clinical Genomics Sanya Mehta M.D. [address] [place] [phone] 05/06/2022 Clinical Communication Admitting/Central Scheduling 05/09/2022 Office Visit Oncology Farzana Allen M.D. [address] [place] [phone] Scheduled Referrals Name Type Priority Associated Diagnoses Order S chedule External referral Outpatient Referral Routine Tumor Brai n (HCC) Ordered: OT (non-[facility]) Abnormal Gait Non 2 Orthopedic Lack Of Coordination External referral Outpatient Referral Routine Tumor Brai n (HCC) Ordered: PT (non-[facility]) Abnormal Gait Non 2 Orthopedic Lack Of Coordination External referral Outpatient Referral Routine Tumor Brai n (HCC) Ordered: speech therapy Aphasia 01/22/2022 (non-[facility]) documented as of this encounter Procedures Procedure Name Priority Date/Time Associated Diagnosis Comme nts BASIC METABOLIC Routine 01/22/2022 6:48 AM Resul ts for this PANEL, S/P CDT procedure are i n the results section. BASIC METABOLIC Routine 01/18/2022 9:38 AM Resul ts for this PANEL, S/P CDT procedure are i n the results section. documented in this encounter Results Basic Metabolic Panel (01/22/2022 6:48 AM CDT) P athologist Signature Potassium, S 5.1 3.6 [...] 01/22/2022 DTL Black/ mL/min/BSA 7:49 AM CDT Lithuanian Comment: ----ADDITIONAL INFORMATION---- Estimated GFR calculated using [...] City/State/ZIP Code Phon e Number [facility] - [address] [place], [place] [address] [facility] [place] [address] [facility] [address] Basic Metabolic Panel (01/18/2022 9:38 AM CDT) athologist Signature Potassium, S 4.6 3.6 - 5.2 01/18/2022 DTL mmol/L 11:25 AM CDT Sodium, S 137 135 - 145 01/18/2022 DTL mmol/L 11:25 AM CDT Chloride, S 100 98 - 107 01/18/2022 DTL mmol/L 11:25 AM CDT Bicarbonate, S 23 22 - 29 01/18/2022 DTL mmol/L 11:25 AM CDT Anion Gap 14 7 - 15 01/18/2022 DTL 11:25 AM CDT BUN (Blood Urea 15 6 - 21 01/18/2022 DTL Nitrogen), S mg/dL 11:25 AM CDT Creatinine, S 0.73 0.59 - 1.04 01/18/2022 DTL mg/dL 11:25 AM CDT eGFR-Non >90 >=60 01/18/2022 DTL Black/ mL/min/BSA 11:25 AM CDT Lithuanian Comment: ----ADDITIONAL INFORMATION---- Estimated GFR calculated using the 2009 CKD_EPI creatinine equation. eGFR-Black/ >90 >=60 mL/min/BSA 2021 11:25 AM CDT DTL Comment: ----ADDITIONAL INFORMATION---- Estimated GFR calculated using the 2009 CKD_EPI creatinine equation. Calcium, Total, S 9.9 8.6 - 10.0 mg/dL 01/18/2022 11:2 5 AM CDT DTL Glucose, S 122 70 - 140 mg/dL 01/18/2022 11:25 AM CDT DTL Specimen Anatomical Collection Method Collection Time Receive d Time (Source) Location / / Volume Laterality Blood (Blood, 01/18/2022 9:38 01/18/2022 Venous) AM CDT 10:17 AM CDT Benjamín Warner M.D. LAB BLOOD ADD-ON Performing Organization Address City/State/ZIP Code Phon e Number [facility] - [address] [place], [place] [address] [facility] [place] [address] [facility] [address] documented in this encounter Visit Diagnoses Diagnosis Tumor Brain (HCC) - Primary Aphasia Deficit Cognitive Communication Abnormal Gait Non Orthopedic Decline Functional Status Unsteadiness Non Orthopedic Lack Of Coordination Decline Cognitive Malignant Neoplasm Of Brain (HCC) documented in this encounter Administered Medications Inactive Administered Medications - up to 3 most recent administrations Medication Order MAR Action Action Date Dose Rate Site acetaminophen tablet 1,000 mg Given 01/18/2022 4:00 AM CDT 1,00 0 mg (TYLENOL) 1,000 mg, oral, Every 6 hours, First dose (after last modification) on Bee 01/17/22 at 1745, If patient tolerating oral fluids or has a gastric tube, discontinue injectable opioid and begin this order Given 01/17/2022 7:30 PM CDT 1,000 mg acetaminophen tablet 1,000 mg (TYLENOL) Given 01/24/2022 9:06 PM CDT 1,000 mg 1,000 mg, oral, Every 6 hours PRN, moderate pain or score 4-6 of 10, mild pain or score 1-3 of 10, headaches, fever, Starting on Fri01/18/22 at 0930, If patient tolerating oral fluids or has a gastric tube, discontinue injectable opioid and begin this order Given 01/24/2022 3:12 PM CDT 1,000 mg Given 01/24/2022 2:59 AM CDT 1,000 mg dexAMETHasone tablet 1 mg (DECADRON) Given 01/25/2022 8:09 AM CDT 1 mg 1 mg, oral, Every 6 hours, First dose (after last modification) on Fri01/23/22 at 0315, For 16 doses Given 01/25/2022 4:38 AM CDT 1 mg Given 01/24/2022 9:06 PM CDT 1 mg dexAMETHasone tablet 2 mg (DECADRON) Given 01/22/2022 8:02 PM CDT 2 mg 2 mg, oral, Every 6 hours, First dose (after last modification) on Fri01/19/22 at 0315, For 16 doses Given 01/22/2022 2:21 PM CDT 2 mg Given 01/22/2022 8:18 AM CDT 2 mg dexAMETHasone tablet 2 mg (DECADRON) Given 01/23/2022 1:23 AM CDT 2 mg 2 mg, oral, Once, On Fri01/23/22 at 0215, For 1 dose dexAMETHasone tablet 3 mg (DECADRON) Given 01/18/2022 9:03 PM CDT 3 mg 3 mg, oral, Every 6 hours, First dose (after last modification) on Fri01/17/22 at 1515, For 6 doses Given 01/18/2022 3:18 PM CDT 3 mg Given 01/18/2022 9:22 AM CDT 3 mg enoxaparin injection 40 mg Given 01/20/2022 8:10 AM CDT 40 mg Left Lower Abdomen (LOVENOX) 40 mg, subcutaneous, Daily, First dose on Fri01/18/22 at 0900 Given 01/19/2022 2:26 PM CDT 40 mg Left Lower Abdomen Given 01/18/2022 9:21 AM CDT 40 mg Left Lower Abdomen gabapentin capsule 300 mg (NEURONTIN) Given 01/24/2022 9:06 PM CDT 300 mg 300 mg, oral, Daily at bedtime, First dose on Fri01/23/22 at 2100 Given 01/23/2022 8:03 PM CDT 300 mg hydrALAZINE tablet 25 mg (APRESOLINE) 25 mg, oral, Every 8 hours PRN, SBP >180, Starting on Fri01/18/22 at 1506 levETIRAcetam tablet 1,000 mg (KEPPRA) Given 01/25/2022 8:09 AM CDT 1,000 mg 1,000 mg, oral, 2 times daily, First dose (after last modification) on Fri01/17/22 at 2100 Given 01/24/2022 9:06 PM CDT 1,000 mg Given 01/24/2022 7:55 AM CDT 1,000 mg melatonin tablet 3 mg 3 mg, oral, Bedtime PRN, sleep, Starting on Fri 2 at 1624 methyl salicylate-menthol 15-10 % cream 1 application 1 application, topical, 2 times daily PRN, muscle/join t pain, Starting on Fri01/22/[address] tablet 40 mg (PROTONIX) Given 01/25/2022 4:39 AM CDT 40 mg 40 mg, oral, Daily before breakfast, First dose (after last modification) on Fri01/18/22 at 0700, Swallow whole. Do NOT crush, chew, or split tablet. Given 01/24/2022 6:15 AM CDT 40 mg Given 01/23/2022 6:20 AM CDT 40 mg polyethylene glycol powder packet 17 g ( MIRALAX) 17 g, oral, Daily PRN, constipation, Starting on Sun at 1115, Ordered sequence of administration: polyethylene glycol, then bisacodyl until BM achieved. Avoid mixing with starch-based thickened liquids. sennosides tablet 17.2 mg (SENOKOT) Given 01/19/2022 2:26 PM CDT 17.2 mg 17.2 mg, oral, Daily with lunch, First dose on Fri01/18/22 at 1200 sennosides tablet 17.2 mg (SENOKOT) 17.2 mg, oral, Daily PRN, constipation, Starting on Haley n 01/20/22 at 1115 documented in this encounter Active and Recently Administered Medications Times are shown in CDT. Scheduled Medication Order 01/23/2022 01/24/2022 01/25/2022 dexAMETHasone tablet 1 mg (DECADRON) 0122 (Given - Pro vider: Susana Wiggins R.N. - Comment: request)0829 (Given - Provider: Olga Najera R.N.)1517 (Given - Provider: Olga Najera R.N.)2004 (Given - Provider: Meche [place] RAquilino) 0259 (Given - Provider: Meche [place] RSanjuanitaN.)0755 (Given - Provider: lOga Najera RGiovani.)1512 (Given - Provider: Olga Najera R.N.)2106 (Given - Provider: Phil Koroma RSanjuanitaN.) 0438 (Given - Provider: Phil Koroma RSanjuanitaN.)0809 (Given - Provider: Maritza Guerrero RAquilino) 1 mg, oral, Every 6 hours, First dose (a fter last modification) on Fri01/23/22 at 0315, For 16 doses dexAMETHasone tablet 2 mg (DECADRON) (COMPLETED) 0123 (Given - Provider: Susana Wiggins R.N.) 2 mg, oral, Once, On Fri01/23/22 at 0215, For 1 dose enoxaparin injection 40 mg (LOVENOX) 0829 (Not Given - Provider: Olga Najera R.N. - Reason: Patient/family refused) 0756 (Not Given - Provider: Olga Najera R.N. - Reason: Patient/family refused) 0809 (Not Given - Provider: Maritza Guerrero R.N. - Reason: Patient/family refused) 40 mg, subcutaneous, Daily, First dose on Fri01/18/22 at 0900 gabapentin capsule 300 mg (NEURONTIN) 2002 (Given - Pr ovider: Meche [place] RAquilino) 210 (Given - Provider: Phil Koroma R.N.) 300 mg, oral, Daily at bedtime, First dose on Fri01/23/22 at 2100 levETIRAcetam tablet 1,000 mg (KEPPRA) 0829 (Given - P rovider: Olga Najera R.N.)2002 (Given - Provider: Meche [place] R.N.) 075 (Given - Provider: Olga Najera R.N.)2105 (Given - Provider: Phil Koroma R.N.) 08 (Given - Provider: Maritza Guerrero R.Hedy) 1,000 mg, oral, 2 times daily, First dos e (after last modification) on Fri01/17/[address] tablet 40 mg (PROTONIX) 0620 (Given - Provider: Susana Wiggins RAquilino) 0615 (Given - Provider: Meche [place] RAquilino ) 0439 (Given - Provider: Phil Koroma R.N.)0755 (Canceled Entry - Provider: Maritza Guerrero RAquilino - Comment: dose given early) 40 mg, oral, Daily before breakfast, Fir st dose (after last modification) on Fri01/18/22 at 0700, Swallow whole. Do NOT crush, chew, or split tablet. PRN Medication Order 01/23/2022 01/24/2022 01/25/2022 acetaminophen tablet 1,000 mg (TYLENOL) 1043 (Given - Provider: Renetta Acosta R.N.)1700 (Given - Provider: Olga Najera R.N.) 0259 (Given - Provider: Meche [place], R.N.)1512 (Given - Provider: Olga Najera RSanjuanitaN.)2106 (Given - Provider: Phil Koroma RSanjuanitaN.) 1,000 mg, oral, Every 6 hours PRN, moder ate pain or score 4-6 of 10, mild pain or score 1-3 of 10, headaches, fever, Starting on Fri01/18/22 at 0930, If patient tolerating oral fluids or has a gastric t ube, discontinue injectable opioid and begin this order benzocaine-menthoL 15-3.6 mg per lozenge 1 lozenge (CEPACOL) 1 lozenge, oral, As needed, sore throat, throat irritation, Starting on Fri01/17/22 at 1231 bisacodyL suppository 10 mg (DULCOLAX) 10 mg, rectal, Daily PRN, constipation, Starting on Fri01/17/22 at 1231, Ordered sequence of administration: polyethylene glycol, then bisacodyl until BM achieved. calcium carbonate chewable tablet 400 mg of calcium (TUMS) 400 mg of calcium, oral, Every 4 hours P RN, heartburn, indigestion, Starting on Fri01/17/22 at 1231, Doses listed are in mg of elemental calcium. Take with food. 500 mg calcium carbonate contains 200 mg of elemental calcium. carboxymethylcellulose 0.5 % ophthalmic solution 1 drop (REFRESH PLUS) 1 drop, both eyes, Every 1 hour PRN, dry eyes, OK to give either or both eyes, as required, Starting on Fri01/17/22 at 1231 hydrALAZINE tablet 25 mg (APRESOLINE) 25 mg, oral, Every 8 hours PRN, SBP >180, Starting on Fri 2 at 1506 melatonin tablet 3 mg 3 mg, oral, Bedtime PRN, sleep, Starting on Fri01/17/22 at 1624 methyl salicylate-menthol 15-10 % cream 1 application 1 application, topical, 2 times daily [place] N, muscle/joint pain, Starting on Fri01/22/22 at 2343 naloxone injection 0.2 mg (NARCAN) 0.2 mg, intravenous, As needed, respirat ory depression, Starting on Fri01/17/22 at 1231, For respiratory rate less than 8 breaths per minute or RASS score of - 3, -4, -5. Apply oxygen to keep oxygen saturations greater than 90% and notify service. polyethylene glycol powder packet 17 g (MIRALAX) 17 g, oral, Daily PRN, constipation, Sta rting on 01/20/22 at 1115, Ordered sequence of administration: polyethylene glycol, then bisacodyl until BM achieved. Avoid mixing with starch-based thickened liquids. sennosides tablet 17.2 mg (SENOKOT) 17.2 mg, oral, Daily PRN, constipation, Starting on 01/20/22 at 1115 documented in this encounter
--- OUTSIDE RECORDS SUMMARY | 2022-03-12 14:33 | XMS_ITS | Encounter Summary ---
:1970 Author Organization [facility] Address [address] [place] [address] Care Team Providers Name Role Phone Unavailable Primary Care Provider Unavailable Encounter Details Date Type Department Care Team Description 01/30/2022 Clinical Communication Department of Cliff Sumner, Radiation Oncology in [place], M.S. [facility] [address] [facility] [address] [place] [phone] Social History Tobacco Use Types Packs/Day Years [...] or relatives? How often do you attend islam or More than 4 times per year 01/07/2022 bahai services? Do you belong to any clubs or No 01/07/2022 organizations such as islam groups, unions, fraternal or athletic groups, or [...] have completed or the highest Maulik, MEd, TRACK LEADER, 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 Sex Assigned at Date Recorded Female 01/07/2022 11:11 AM CDT documented as of this encounter Miscellaneous Notes Telephone Encounter - Cliff Sumner M.D., M.S. - 01/30/2022 12:41 PM CDT Radiation Oncology 01/30/22 Mia Arias Colling Phone Call: I spoke to the patient and her mother on the phone today. I relayed the results of her planning MRI, namely that demonstrated markedly reduced edema and a question of a small amount of residual tumor but nothing convincing and certainly no large growth. We will plan for first radiation treatment tomorrow morning. The patient does not anticipate needing Ativan for treatment. Cliff Sumner M.D., M.S. documented in this encounter Plan of Treatment Upcoming Encounters Date Type Specialty Care Team Description 03/12/2022 Appointment Radiation Oncology Stephanie Gleason M.D. [address] [place] [phone] 03/12/2022 Appointment Radiation Oncology Stephanie Gleason M.D. [address] [place] [phone] 03/13/2022 Appointment Radiation Oncology Stephanie Gleason M.D. [address] [place] [phone] 03/14/2022 Appointment Radiation Oncology Stephanie Gleason M.D. [address] [place] [phone] 03/25/2022 Ancillary Procedure Ophthalmology Chas Shin M.D. [address] [place] [phone] 03/25/2022 Ancillary Procedure Ophthalmology 03/25/2022 Ancillary Procedure Ophthalmology Chas Shin M.D. [address] [place] [phone] 03/26/2022 Ancillary Procedure Ophthalmology Rebeca Valle P.Domingo.-Rusty., M.S. [address] [place] [phone] 03/26/2022 Comprehensive Visit Ophthalmology Chas Shin M.D. [address] [place] [phone] 03/29/2022 Comprehensive Visit Endocrinology Farzana Allen M.D. [address] [place] [phone] 04/04/2022 Appointment Radiology Christina Tai P.Domingo.-C., M.S. [address] [place] [phone] 04/04/2022 Office Visit Oncology Vini Maki M.D., Ph.D. [address] [place] [phone] 04/04/2022 Office Visit Neurological Surgery Charles Ivey M.D., Ph.D. [address] [place] [phone] 05/03/2022 Comprehensive Visit Clinical Genomics Sanya Mehta M.D. [address] [place] [address] [phone] 05/06/2022 Clinical Communication Admitting/Central Scheduling 05/09/2022 Office Visit Oncology Farzana Allen M.D. [address] [place] [address] [phone] documented as of this encounter Visit Diagnoses Not on filedocumented in this encounter
--- OUTSIDE RECORDS SUMMARY | 2022-03-12 14:33 | XMS_ITS | Encounter Summary ---
:1970 Author Organization [facility] Address [address] [place] [address] Care Team Providers Name Role Phone Unavailable Primary Care Provider Unavailable Reason for Referral Specialty Diagnoses / Procedures Referred By Contact Refer red To Contact Karthikeyan Cedeno M.D. [facility] [address] [place] [phone] Referral ID Status Reason Start Date Expiration Date Visits Requ ested Visits Authorized Reason for Visit Reason Comments Treatment Questions/Concerns Encounter Details Date Type Department Care Team Description 01/28/2022 Clinical Communication Department of Karthikeyan Cedeno Neurology lucien Smiley M.D. Questions/Concerns [address] [place] [phone] [place], [place] [phone] (Work) [phone] Social History Tobacco Use Types Packs/Day Years [...] or relatives? How often do you attend moravian or More than 4 times per year 01/07/2022 orthodox services? Do you belong to any clubs or No 01/07/2022 organizations such as moravian groups, unions, [employer] or athletic groups, or school groups? How [...] place to sleep or slept in a fpc (including now)? Education Answer Date Recorded What is the highest level of school Master's degree (e.g., M A, MS, 01/07/2022 you have completed or the highest Maulik, MEd, SALES ATTENDANT, 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 Sex Assigned at Date Recorded Female 01/07/2022 11:11 AM CDT documented as of this encounter Miscellaneous Notes Telephone Encounter - Randi Franklin RAquilino - 01/30/2022 8:43 AM CDT CBC Labs reviewed. Patient scheduled for phone visit with provider this afternoon. Telephone Encounter - Trupti Pearson - 01/30/2022 8:18 AM CDT Labs have been entered and are ready for review. Addendum Note - Olivia Lundy D.N.Tu., M.A., R.N., HNB-BC - 01/29/2022 4:05 PM CDT Addended by: OLIVIA LUNDY on: 01/29/2022 04:05 PM Modules accepted: Orders Telephone Encounter - Amelie Wiley - 01/29/2022 3:39 PM CDT Labs drawn on 01/23/22 are here. Copy is in document viewer. This fax should be viewable in a few minutes. Thank you, Kala RST ONC [facility] AA POD 1 Telephone Encounter - Amelie Wiley - 01/29/2022 2:12 PM CDT Faxed stat request to medical records at [place] at [phone] to fax 01/28 labs Telephone Encounter - Chiquita Ivey - 01/29/2022 9:38 AM CDT Do we have a valid auth to speak with caller? Yes-Libby, mother Reason for call: Libby calls again upset and confused as to what the appointment with Rebeca is for? She doesn't understand why patient needs to be seen in person and why the Temodar wasn't previously ordered so that patient could start medication the same time as her radiation? She thinks that we have been wasting time with everything and delaying patient's care. She feels we are holding her off on treatment and patient is slipping away. I did reiterate that the nurse told her that it was okay for patient to start radiation before receiving the Temodar but again she wasn't sure why the medication wasn't already ordered. She states that it doesn't make sense the way we are doing things and we're driving her crazy. Libby also states that they have to make an hour drive here and hour drive back twice on 01/31 for patient's appt with Rebeca, then back to [place] for radiation, then back here for a genetics consult, she says that's not going to happen. Could someone please call Libby to discuss plan with her again? Thank you, Hannah RST ONC [facility] AA POD 1 Telephone Encounter - Johnathan Rogel - 01/28/2022 1:51 PM CDT Spoke to Libby, blood draw is being done at [facility] and they will send the results to us. Telephone Encounter - Stacy Flanagan R.N. - 01/28/2022 12:51 PM CDT I would suggest calling Libby, patients mother. Ask her what she prefers. Thanks Kee! Addendum Note - Stacy Flanagan R.N. - 01/28/2022 12:39 PM CDT Addended by: STACY FLANAGAN on: 01/28/2022 12:39 PM Modules accepted: Orders Telephone Encounter - Stacy Flanagan R.N. - 01/28/2022 12:26 PM CDT SUBJECTIVE CHIEF COMPLAINT / REASON FOR CALL Treatment Questions Information Discussed Spoke with Ms Cedillo's mother, Libby, regarding treatment questions. Pt is to begin RT in [place] on or Friday this week. Libby is upset that the patient does not yet have her temozolomide. RN explained to her that pt has an appointment this week with Rebeca Valle PA-C, to go over lab work and prescribe chemotherapy. Libby asked to have this appointment moved up sooner than . I dont understand why we need this appointment. Nothing has changed since we were there last.She also asked why they were going to see Tori and not Dr Cedeno. RN explained care team model toher and explained that Dr Cedeno is away this week. RN also explained that it is acceptable for pt to begin RT without chemotherapy for a few days. Libby requests that a lab order be sent to [place] for lab work today. They would like to complete this after pt 1:00 MRI. PLAN Disposition/Recommendation: recommended continue engagement in self-management activities and complete lab work in [place] today or tomorrow. Follow up with Danilo later this week. Information/Education: patient/caller able to teach back Caller agreeable to plan of care: yes The following references were used: nursing clinical judgement documented in this encounter Plan of Treatment Upcoming Encounters Date Type Specialty Care Team Description 03/12/2022 Appointment Radiation Oncology Stephanie Gleason M.D. [address] [place] [phone] 03/12/2022 Appointment Radiation Oncology Stephanie Gleason M.D. [address] [place] [phone] 03/13/2022 Appointment Radiation Oncology Stephanie Gleason M.D. [address] [place] [phone] 03/14/2022 Appointment Radiation Oncology Stephanie Gleason M.D. [address] [place] [phone] 03/25/2022 Ancillary Procedure Ophthalmology Chas Shin M.D. [address] [place] [phone] 03/25/2022 Ancillary Procedure Ophthalmology 03/25/2022 Ancillary Procedure Ophthalmology Chas Shin M.D. [address] [place] [phone] 03/26/2022 Ancillary Procedure Ophthalmology Rebeca Valle P.A.-C., M.S. [address] [place] [phone] 03/26/2022 Comprehensive Visit Ophthalmology Chas Shin M.D. [address] [place] [phone] 03/29/2022 Comprehensive Visit Endocrinology Farzana Allen M.D. [address] [place] [phone] 04/04/2022 Appointment Radiology Christina Tai P.A.-C., M.S. [address] [place] [phone] 04/04/2022 Office Visit Oncology Vini Maki M.D., Ph.D. [address] [place] [phone] 04/04/2022 Office Visit Neurological Surgery Charles Ivey M.D., Ph.D. [address] [place] [phone] 05/03/2022 Comprehensive Visit Clinical Genomics Sanya Mehta M.D. [address] [place] [phone] 05/06/2022 Clinical Communication Admitting/Central Scheduling 05/09/2022 Office Visit Oncology Farzana Allen M.D. [address] [place] [phone] Scheduled Referrals Name Type Priority Associated Diagnoses Order S chedule Oncology - Chemo Outpatient Referral Routine Tumor Brain (HCC) Expected: education visit 01/30/2022, (clinic) Expires: 05/01/2023 documented as of this encounter Procedures Procedure Name Priority Date/Time Associated Diagnosis Comme nts HEMATOLOGY/ONCOLOGY Routine 01/28/2022 1:45 PM R esults for this - BLOOD, EXTERNAL CDT procedure are in LAB RESULTS the results section. documented in this encounter Results (ABNORMAL) Hematology/Oncology - Blood, External Lab Results (01/28/2022 1:45 PM CDT) Analysis Performed At Patho logist Time Signature EXT Hemoglobin 10.9 (A) 12.0 - OTHER 15.5 (SPECIFY IN ROUNDSMAN) EXT Leukocytes 8.01 5.0 - 10.0 OTHER (SPECIFY IN ROUNDSMAN) EXT Absolute 3.29 1.70 - 7.0 OTHER Neutrophil (SPECIFY IN Count ROUNDSMAN) EXT Lymphs 3.97 (A) 0.90 - OTHER Absolute 2.90 (SPECIFY IN ROUNDSMAN) EXT Platelet 360 150 - 450 OTHER Count (SPECIFY IN ROUNDSMAN) Specimen (Source) Anatomical Collection Method Collection Time Re ceived Time Location / / Volume Laterality Blood 01/28/2022 1:45 PM CDT Narrative This result has an attachment that is no t available. Historical Provider LAB BLOOD NON ADD-ON Performing Organization Address City/State/ZIP Code Phon e Number OTHER (SPECIFY IN ROUNDSMAN) OTHER (SPECIFY IN ROUNDSMAN) N/A documented in this encounter Visit Diagnoses Diagnosis Tumor Brain (HCC) - Primary documented in this encounter
--- OUTSIDE RECORDS SUMMARY | 2022-03-12 14:33 | XMS_ITS | Encounter Summary ---
:1970 Author Organization [facility] Address [address] [place] [address] Care Team Providers Name Role Phone Unavailable Primary Care Provider Unavailable Reason for Referral Outpatient (Routine) - Closed Specialty Diagnoses / Procedures Referred By Contact Refer red To Contact Radiation Oncology Diagnoses Malignant Neoplasm Of Brain (HCC) Norma Diamond [place] Kobi, M.S. [address] [place] [phone] Referral ID Status Reason Start Date Expiration Date Visits Requ ested Visits Authorized [id number] Closed 01/22/2022 01/22/2023 1 1 Reason for Visit Outpatient (Routine) - Closed Specialty Diagnoses / Procedures Referred By Contact Refer red To Contact Radiation Oncology Diagnoses Malignant Neoplasm Of Brain (HCC) Norma Diamond [place] Kobi, M.S. [address] [place] [phone] Referral ID Status Reason Start Date Expiration Date Visits Requ ested Visits Authorized [id number] Closed 01/22/2022 01/22/2023 1 1 Encounter Details Date Type Department Care Team Description 01/28/2022 Hospital Encounter Department of Stephanie Gleason Radiation Oncology Sebastian Marcelino Of Brain (HCC) in [address] [facility] [phone] [place], [place] [phone] (Work) [phone] Social History Tobacco Use Types Packs/Day Years [...] or relatives? How often do you attend anabaptist or More than 4 times per year 01/07/2022 denominational services? Do you belong to any clubs or No 01/07/2022 organizations such as anabaptist groups, unions, fraternal or athletic groups, or [...] have completed or the highest Maulik, MEd, SCRAP METAL COLLECTOR, 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 Sex Assigned at Date Recorded Female 01/07/2022 11:11 AM CDT documented as of this encounter Last Filed Vital Signs Vital Sign Reading Time Taken Comments Blood Pressure - - Pulse - - Temperature 36.4 ??C (97.5 ??F) 01/28/2022 9:49 AM CDT Respiratory Rate - - Oxygen Saturation - - Inhaled Oxygen Concentration - - Weight 95.3 kg (210 lb 1.6 oz) 01/28/2022 9:49 AM CDT Height - - Body Mass Index 33.37 01/24/2022 9:36 AM CDT documented in this [...] documented as of this encounter Progress Notes Cilff Sumner M.D., M.S. - 01/28/2022 10:00 AM CDT RADIATION ONCOLOGY FOLLOW-UP VISIT Supervising Adhesive Bandage Machine Operator: Dr. Stephanie Gleason Home address: [address] [place] [phone] SUBJECTIVE History of present illness Mia Cedillo is a 51 y.o. female with glioblastoma, IDH-wildtype, MGMT non- methylated s/p craniotomyand resection on 01/10/2022 who presents in follow-up for consideration of radiation treatment. Please see documentation by me on 01/01/2022 for initial consultation. The patient's oncologic history is as follows: Oncology History Malignant Neoplasm Of Brain (HCC) [...] sense. The patient was taken to the [facility] with altered mental status. The patient was [...] with steroids and Keppra and [place] [facility] 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 See comment. B. 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 See comment. Final Diagnosis: [...] Referral to Dr. Shelbie Ackerman at the [facility]. Discussed that it was okay forthe patient to proceed with chemotherapy and radiation 1 month from biopsy date. Also discussed that it was okay for the patient to travel on a commercial air flight approximately 1 month from biopsy as she was planning for a trip to [place] with her significant other in December. 12/24/[address] Shelbie Ackerman who reviewed the patient's case with Dr. Dunlap and he recommended against additional surgery. Dr. Macias recommended proceeding with a combination of radiation therapy plus temozolomide. Referral to Radiation Oncology at [facility] in [place]. 01/10/2022 Surgery and Procedures Left temporoparietal stereotactic craniotomy with tumor resection, speech mapping with Dr. Ivey. PATHOLOGY: A-D. Brain, left temporal lesion, resection: Glioblastoma, IDH-wildtype (RADIO DIVISION LIEUTENANT WHO grade 4), clinically residual. See comment. COMMENT: The patient's history of left temporal-parietal mitotically-active infiltrating glioma status post biopsy on 12/06/2019 (reviewed at [facility], [id number]), is noted. The biopsy specimen lacked microvascular proliferation and tumor necrosis. By immunohistochemistry, the tumor cells were negative for IDH1-R132H and showed retained ATRX expression. 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 01/10/2022 Imaging MRI of the brain demonstrated interval repeat left temporoparietal craniotomy and resection of lefttemporoparietal region mass. Expected postoperative left convexity extra-axial collection and pneumocephalus, similar vasogenic edema and mass effect resulting in 12 mm rightward midline shift, stable. Enhancement surrounding the resection cavity should be postoperative without evidence for gross residual enhancing tumor. 01/31/2022 - Radiation Therapy Radiation Therapy Treatment Details (Noted on 12/31/2021) Site: Brain Technique: IMRT Goal: Curative Planned Treatment Start Date: 01/31/2022 Prior history of radiation None. Interval history In the clinic today, Mia Cedillo reports ongoing headaches that have improved since starting gabapentin. Her sleeplessness also in general has improved since starting gabapentin, although last night was more challenging. She finished her dexamethasone taper and has not noticed a significant change insymptomatology. Her vision is about the same, although she struggles some with reading at times. Herword finding is about stable as well, and overall she is speaking much more fluently since her surgery. Patient reported symptom screen Fatigue (scale: 0 = no fatigue; 10 = worst fatigue you can imagine): 4 Pain (scale: 0 = no pain; 10 = worst pain you can imagine): 4 Overall quality of life (scale: 0 = as bad as can be; 10 = as good as can be): 3 Past medical history Pertinent past medical history, past surgical history, medications, allergies, social history, and family history were reviewed. Review of systems Review of systems as noted in HPI. OBJECTIVE Vitals Weight: 95.3 kg and Temperature: 97.5 degrees Farenheit Physical exam ECO Constitutional: Pleasant, in no acute distress, overweight, ambulates without an assistive device. ASSESSMENT AND PLAN #1 Glioblastoma, IDH-wildtype, MGMT non-methylated Mia Cedillo is a 51 y.o. female with glioblastoma, IDH-wildtype, MGMT non- methylated s/p craniotomyand resection on 01/10/2022 who is seen in Radiation Oncology for a discussion of radiation treatment. Since the patient was seen in consultation, she underwent repeat craniotomy and resection with subsequent stay in inpatient rehabilitation. I have reviewed the pertinent history, laboratory, and imaging studies. The patient is now three weeks out from her resection. Clinically she appears much better after her initial resection. She is much more conversant with less word- finding difficulties, and her headaches and vision have improved significantly. She benefitted greatly from surgical debulking. Her tumor further was upstaged to glioblastoma, IDH-wildtype, on resection. We reviewed our recommendations for adjuvant radiotherapy to 6000 cGy in 30 fractions with concurrent and adjuvant temozolomide. We briefly reviewed the logistics of radiation simulation, planning, anddaily treatment. We also reviewed the acute and late toxicities associated with treatment. The patient displayed understanding of the risks and benefits and was agreeable to proceed with treatment. We will plan for CT simulation today, 01/28/2022, with an MRI in treatment position. We will have the MR interpreted by [facility]. We discussed initiation of treatment on 01/31/2022 or 02/01/2022 pending thorough review including by our peers in [place]. [facility] and may receive an additional prescription for treatments if needed. I will contact the patient tomorrow to ask if it is necessary. Additionally, I will update her on the results of the MRI and timing for initiation of treatment. All questions were answered to the patient's satisfaction. Our departmental contact information was provided to the patient who was encouraged to contact the Department of Radiation Oncology with further questions or concerns. Upcoming oncologic appointments and tests Medical oncology return visit on 01/31/2022 Dr. Stephanie Gleason is the entry level sales consultant; please see attestation for further details. Cliff Sumner M.D., M.S. Associated attestation - Stephanie Gleason M.D. - 01/28/2022 3:58 PM CDT RADIATION ONCOLOGY CONSULT I saw and evaluated the patient and participated in the hill portions of the service. I reviewed thedocumentation of Dr. Cliff Sumner and agree with the findings and plan. Please see Dr. Sumner' detailed note for the patient's initial presentation and work-up. Briefly, Ms Cedillo is a very pleasant 51 year old female with a newly diagnosed glioblastoma, IDH-wildtype, MGMT non-methylated s/p craniotomy and resection on 01/10/2022 who presents in follow-up for consideration of radiation treatment. Please our initial consultation on 01/01/2022 for initial details. She thenthen underwent a follow-up functional MRI with urgent surgery the following day on January 10, 2022. I have reviewed her imaging, operative and pathology reports as well as her post-operative imaging. She is doing better now, but still has aphasia. She is off steroids. She is seen with her mother today. We discussed the findings as outlined above and below in this note. We discussed the treatment alternatives including brain radiotherapy likely with Temozolomide. She has an appointment this to discuss chemotherapy options. We discussed the rationale, risks, side effects and goals of radia tion therapy. We discussed the acute as well as longterm risks, including, but not limited to fatigue, skin erythema, hair loss which could be permanent, memory/cognitive effects as well as small risks of brain or brainstem necrosis. We also discussed pseudoprogression. They understood and their questions were answered. She wished to proceed with treatment. We tentatively plan on delivering 6000cGy in 30 fractions starting January 31 (if we can coordinate with Med Onc that she will have her temozolmide) or we will start on February 01. I also explained that the planning study she is having todaycould also make us want to start sooner or not. Dr. Sumner will call her tomorrow once we have the [facility] over-read on her planning MRI brain. My thanks to Shar Sanchez, Tyron, Germán, and Yoon for the opportunity to participate in this patient's care. EDUCATION Ready to learn, no apparent learning barriers were identified; learning preferences include listening. Explained diagnosis and treatment plan; patient expressed understanding of the content. CONSENT Discussed the risks, benefits, alternatives, and the necessity of other members of the healthcare team participating in the procedure. All questions answered and consent given. DIAGNOSIS #1 Glioblastoma, IDH-wildtype, MGMT non-methylated, s/p subtotal resection I personally spent 30 minutes in care of the patient today. Time includes both non face to face andface to face patient care. Signed by: Stephanie Gleason M.D. 01/28/2022 3:46 PM CDT documented in this encounter Miscellaneous Notes Addendum Note - Kimmie Goff, C.N.A. - 01/28/2022 10:00 AM CDT Encounter addended by: Kimmie Goff, C.N.A. on: 01/29/2022 7:04 AM Actions taken: Letter saved documented in this encounter Plan of Treatment Upcoming Encounters Date Type Specialty Care Team Description 03/12/2022 Appointment Radiation Oncology Stephanie Gleason M.D. [address] [place] [phone] 03/12/2022 Appointment Radiation Oncology Stephanie Gleason M.D. [address] [place] [phone] 03/13/2022 Appointment Radiation Oncology Stephanie Gleason M.D. [address] [place] [phone] 03/14/2022 Appointment Radiation Oncology Stephanie Gleason M.D. [address] [place] [phone] 03/25/2022 Ancillary Procedure Ophthalmology Chas Shin M.D. [address] [place] [phone] 03/25/2022 Ancillary Procedure Ophthalmology 03/25/2022 Ancillary Procedure Ophthalmology Chas Shin M.D. [address] [place] [phone] 03/26/2022 Ancillary Procedure Ophthalmology Rebeca Valle P.Domingo.-C., M.S. [address] [place] [phone] 03/26/2022 Comprehensive Visit Ophthalmology Chas Shin M.D. [address] [place] [phone] 03/29/2022 Comprehensive Visit Endocrinology Farzana Allen M.D. [address] [place] [phone] 04/04/2022 Appointment Radiology Christina Tai, P.A.-C., M.S. [address] [place] [phone] 04/04/2022 Office Visit Oncology Vini Maki M.D., Ph.D. [address] [place] [phone] 04/04/2022 Office Visit Neurological Surgery Charles Ivey M.D., Ph.D. [address] [place] [phone] 05/03/2022 Comprehensive Visit Clinical Genomics Sanya Mehta M.D. [address] [place] [phone] 05/06/2022 Clinical Communication Admitting/Central Scheduling 05/09/2022 Office Visit Oncology Farzana Allen M.D. [address] [place] [phone] Scheduled Referrals Name Type Priority Associated Order Schedule Diagnoses Radiation Oncology Outpatient Referral Routine Malignant Neopl asm Once for 1 - Brain / RADIO DIVISION LIEUTENANT Of Brain (HCC) Occurrences starting consult (clinic) 01/28/2022 until 01/28/2022 documented as of this encounter Visit Diagnoses Diagnosis Malignant Neoplasm Of Brain (HCC) documented in this encounter Administered Medications Inactive Administered Medications - up to 3 most recent administrations Medication Order MAR Action Action Date Dose Rate Site LORazepam tablet 1 mg (ATIVAN) Given 01/28/2022 12:08 PM CDT 1 mg 1 mg, oral, Once, On Fri01/28/22 at 1200, For 1 dose documented in this encounter
--- OUTSIDE RECORDS SUMMARY | 2022-03-12 14:33 | XMS_ITS | Encounter Summary ---
:1970 Author Organization [facility] Address [address] [place] [address] Care Team Providers Name Role Phone Unavailable Primary Care Provider Unavailable Reason for Visit Radiation Therapy (Routine) - Authorized Specialty Diagnoses / Procedures Referred By Contact Refer red To Contact Diagnoses Malignant Neoplasm Of Brain (HCC) Stephanie Gleason M.D. [facility] Radiation Oncology Procedures Prior Auth Rad Tx [place] IMRT COMPLEX [address] [place] [phone] [address] [place] [address] Referral ID Status Reason Start Date Expiration Date Visits V isits Requested Authorized [id number] Authorized 01/31/2022 12/31/2022 30 30 Encounter Details Date Type Department Care Team Description 01/31/2022 Hospital Encounter Department of Radiation Jacquelyn Gleason I., Oncology [place] [address] [facility] [address] [place] [address] [phone] Social History Tobacco Use Types Packs/Day Years [...] More than 4 times per year 01/07/2022 lutheran services? Do you belong to any clubs [...] have completed or the highest Maulik, MEd, SENIOR PRODUCT DESIGNER, 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 Sex Assigned [...] Appointment Radiation Oncology Stephanie Gleason M.D. [address] [place] [phone] 03/12/2022 Appointment Radiation Oncology Stephanie Gleason M.D. [address] [place] [phone] 03/13/2022 Appointment Radiation Oncology Stephanie Gleason M.D. [address] [place] [phone] 03/14/2022 Appointment Radiation Oncology Stephanie Gleason M.D. [address] [place] [phone] 03/25/2022 Ancillary Procedure Ophthalmology Chas Shin M.D. [address] [place] [phone] 03/25/2022 Ancillary Procedure Ophthalmology 03/25/2022 Ancillary Procedure Ophthalmology Chas Shin M.D. [address] [place] [phone] 03/26/2022 Ancillary Procedure Ophthalmology Rebeca Valle, Dilia-C., M.S. [address] [place] [phone] 03/26/2022 Comprehensive Visit Ophthalmology Chas Shin M.D. [address] [place] [phone] 03/29/2022 Comprehensive Visit Endocrinology Farzana Allen M.D. [address] [place] [address] [phone] 04/04/2022 Appointment Radiology Christina Tai P.A.-C., M.S. [address] [place] [address] [phone] 04/04/2022 Office Visit Oncology Vini Maki M.D., Ph.D. [address] [place] [phone] 04/04/2022 Office Visit Neurological Surgery Charles Ivey M.D., Ph.D. [address] [place] [address] [phone] 05/03/2022 Comprehensive Visit Clinical Genomics Sanya Mehta M.D. [address] [place] [address] [phone] 05/06/2022 Clinical Communication Admitting/Central Scheduling 05/09/2022 Office Visit Oncology Farzana Allen M.D. [address] [place] [phone] documented as of this encounter Visit Diagnoses Not on filedocumented in this encounter
--- OUTSIDE RECORDS SUMMARY | 2022-03-12 14:33 | XMS_ITS | Encounter Summary ---
:1970 Author Organization [facility] Address [address] [place] [address] Care Team Providers Name Role Phone Unavailable Primary Care Provider Unavailable Reason for Referral Outpatient (Routine) - Authorized Specialty Diagnoses / Procedures Referred By Contact Refer red To Contact Palliative Medicine Diagnoses Tumor Brain (HCC) Rebeca Valle [place], M.S. [address] [place] [phone] Referral ID Status Reason Start Date Expiration Date Visits V isits Requested Authorized [id number] Authorized 01/30/2022 01/30/2023 1 1 utpatient (Routine) - Closed Specialty Diagnoses / Procedures Referred By Contact Refer red To Contact Social Work Diagnoses Tumor Brain (HCC) Rebeca Valle [place], M.S. [address] [place] [phone] Referral ID Status Reason Start Date Expiration Date Visits Requ ested Visits Authorized [id number] Closed 01/30/2022 01/30/2023 1 1 Reason for Visit Reason Comments Lab Order Encounter Details Date Type Department Care Team Description 01/30/2022 Clinical Communication Department of Sa miquel Valle P.A.-C., M.S. [address] [place] [address] Lab Order Oncology in Olivia Koenig Dionicio De La Cruz, DonA., R.N., HN- [address] [place] [phone] [place], [place] [address] [place] [phone] Social History Tobacco Use Types Packs/Day Years [...] or relatives? How often do you attend jainism or More than 4 times per year 01/07/2022 scientology services? Do you belong to any clubs or No 01/07/2022 organizations such as jainism groups, unions, fraternal or athletic groups, or [...] place to sleep or slept in a residential (including now)? Education Answer Date Recorded What is the highest level of school Master's degree (e.g., M A, MS, 01/07/2022 you have completed or the highest Maulik, Trino, BUSINESS PROGRAMMER, 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 Sex Assigned at Date Recorded Female 01/07/2022 11:11 AM CDT documented as of this encounter Miscellaneous Notes Telephone Encounter - Margaret Carnes - 01/30/2022 3:03 PM CDT Order faxed at 3:03pm on 01-30-2022 to: [facility] Address: [address] [place] [address] Thank you, Margaret RST ONC [place] MED AA POD 1 documented in this encounter Plan of Treatment Upcoming Encounters Date Type Specialty Care Team Description 03/12/2022 Appointment Radiation Oncology Stephanie Gleason M.D. [address] [place] [phone] 03/12/2022 Appointment Radiation Oncology Stephanie Gleason M.D. [address] [place] [phone] 03/13/2022 Appointment Radiation Oncology Stephanie Gleason M.D. [address] [place] [phone] 03/14/2022 Appointment Radiation Oncology Stephanie Gleason M.D. [address] [place] [phone] 03/25/2022 Ancillary Procedure Ophthalmology Chas Shin M.D. [address] [place] [phone] 03/25/2022 Ancillary Procedure Ophthalmology 03/25/2022 Ancillary Procedure Ophthalmology Chas Shin M.D. [address] [place] [phone] 03/26/2022 Ancillary Procedure Ophthalmology Rebeca Valle P.A.-C., M.S. [address] [place] [phone] 03/26/2022 Comprehensive Visit Ophthalmology Chas Shin M.D. [address] [place] [phone] 03/29/2022 Comprehensive Visit Endocrinology Farzana Allen M.D. [address] [place] [phone] 04/04/2022 Appointment Radiology Christina Tai P.A.-C., M.S. [address] [place] [phone] 04/04/2022 Office Visit Oncology Vini Maki M.D., Ph.D. [address] [place] [phone] 04/04/2022 Office Visit Neurological Surgery Charles Ivey M.D., Ph.D. [address] [place] [phone] 05/03/2022 Comprehensive Visit Clinical Genomics Sanya Mehta M.D. [address] [place] [phone] 05/06/2022 Clinical Communication Admitting/Central Scheduling 05/09/2022 Office Visit Oncology Farzana lAlen M.D. [address] [place] [phone] Scheduled Referrals Name Type Priority Associated Order Schedule Diagnoses Social Work - Outpatient Referral Routine Tumor Brain (HCC) Ex pected: General consult 02/07/2022, (clinic) Expires: 05/02/2023 Palliative Medicine Outpatient Referral Routine Tumor Brain (H CC) Expected: - General consult 02/07/2022 (clinic) (Approximate), Expires: 05/02/2023 documented as of this encounter Visit Diagnoses Diagnosis Tumor Brain (HCC) documented in this encounter
--- OUTSIDE RECORDS SUMMARY | 2022-03-12 14:34 | XMS_ITS | Encounter Summary ---
:1970 Author Organization [facility] Address [address] [place] [address] Care Team Providers Name Role Phone Unavailable Primary Care Provider Unavailable Encounter Details Date Type Department Care Team Description 01/22/2022 Clinical Communication Department of Cliff Sumner, Radiation Oncology in [place], M.S. [facility] 200 [facility] [address] [place] [phone] Social History Tobacco Use Types Packs/Day Years [...] or relatives? How often do you attend christianity or More than 4 times per year 01/07/2022 judaism services? Do you belong to any clubs or No 01/07/2022 organizations such as christianity groups, unions, fraternal or athletic groups, or [...] have completed or the highest Maulik, MEd, HADOOP APPLICATION DEVELOPER, 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 Sex Assigned at Date Recorded Female 01/07/2022 11:11 AM CDT documented as of this encounter Miscellaneous Notes Telephone Encounter - Cliff Sumner M.D., M.S. - 01/22/2022 1:13 PM CDT Radiation Oncology 01/22/22 Mia Arias Colling Phone Call: I spoke to the patient's mother on the phone today. I updated her that we will see her in [place] on 01/28 for radiation follow-up with CT simulation and MRI at [facility]. Cliff Sumner M.D., M.S. documented in this encounter Plan of Treatment Upcoming Encounters Date Type Specialty Care Team Description 03/12/2022 Appointment Radiation Oncology Stephanie Gleason M.D. 200 [place] [phone] 03/12/2022 Appointment Radiation Oncology Stephanie Gleason M.D. [address] [place] [phone] 03/13/2022 Appointment Radiation Oncology Stephanie Gleason M.D. [address] [place] [phone] 03/14/2022 Appointment Radiation Oncology Stephanie Gleason M.D. [address] [place] [phone] 03/25/2022 Ancillary Procedure Ophthalmology Chas Shin M.D. [address] [place] [phone] 03/25/2022 Ancillary Procedure Ophthalmology 03/25/2022 Ancillary Procedure Ophthalmology Chas Shin M.D. [address] [place] [phone] 03/26/2022 Ancillary Procedure Ophthalmology Rebeca Valle P.A.-C., M.S. [address] [place] [phone] 03/26/2022 Comprehensive Visit Ophthalmology Chas Shin M.D. [address] [place] [phone] 03/29/2022 Comprehensive Visit Endocrinology Farzana Allen M.D. [address] [place] [address] [phone] 04/04/2022 Appointment Radiology Christina Tai P.A.-C., M.S. [address] [place] [address] [phone] 04/04/2022 Office Visit Oncology Vini Maki M.D., Ph.D. [address] [place] [address] [phone] 04/04/2022 Office Visit Neurological Surgery Charles Ivey M.D., Ph.D. [address] [place] [address] [phone] 05/03/2022 Comprehensive Visit Clinical Genomics Sanya Mehta M.D. [address] [place] [phone] 05/06/2022 Clinical Communication Admitting/Central Scheduling 05/09/2022 Office Visit Oncology Farzana Allen M.D. [address] [place] [address] [phone] documented as of this encounter Visit Diagnoses Not on filedocumented in this encounter
--- OUTSIDE RECORDS SUMMARY | 2022-03-12 14:34 | XMS_ITS | Encounter Summary ---
:1970 Author Organization [facility] Address [address] [place] [address] Care Team Providers Name Role Phone Unavailable Primary Care Provider Unavailable Reason for Visit Reason Comments Treatment Plan Encounter Details Date Type Department Care Team Description 01/22/2022 Clinical Communication Department of Latanya Michael Treatment Plan Oncology in R.N., O.C.N. [place], [place] [address] [facility] [address] [place] [phone] Social History Tobacco Use Types Packs/Day Years [...] More than 4 times per year 01/07/2022 rastafari services? 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 Sex Assigned at Date Recorded Female 01/07/2022 11:11 AM CDT documented as of this encounter Miscellaneous Notes Telephone Encounter - Norma Diamond P.A.-C., M.S. - 01/22/2022 12:13 PM CDT I was in contact with the radiation oncology team at [facility] who states they were planning on seeing Ms. Cedillo in their clinic as they have seen her in the past. They are happy to treat her there and are scheduling as appropriate. Electronically signed by: Norma Diamond P.A.-C., M.S. 01/22/22 12:14 PM CDT Telephone Encounter - Chiquita Ivey - 01/22/2022 9:29 AM CDT Do we have a valid auth to speak with caller? Yes-Libby, mother Reason for call: Libby calls very upset that patient's radiation oncology consult is on 01/31 and not actual radiation treatment. She feels that things aren't moving quick enough and patient is going yamileth by the time this gets figured out. Libby also states that patient's headaches are starting again so her steroids need to be increased. Libby called radiation oncology and neuro surgery with the same concerns, she said that she is calling everybody to get something moving. I'm not sure if we also want to reach out to Libby or if we want to see how neuro surgery moves forward first? Thank you, Hannah RST ONC [place] MED AA POD 1 documented in this encounter Plan of Treatment Upcoming Encounters Date Type Specialty Care Team Description 03/12/2022 Appointment Radiation Oncology Stephanie Gleason M.D. [address] [place] [phone] 03/12/2022 Appointment Radiation Oncology Stephanie Gleason M.D. [address] [place] [address] [phone] 03/13/2022 Appointment Radiation Oncology Stephanie Gleason M.D. [address] [place] [address] [phone] 03/14/2022 Appointment Radiation Oncology Stephanie Gleason M.D. [address] [place] [address] [phone] 03/25/2022 Ancillary Procedure Ophthalmology Chas Shin M.D. [address] [place] [address] [phone] 03/25/2022 Ancillary Procedure Ophthalmology 03/25/2022 Ancillary Procedure Ophthalmology Chas Shin M.D. [address] [place] [address] [phone] 03/26/2022 Ancillary Procedure Ophthalmology Rebeca Valle P.A.-C., M.S. [address] [place] [address] [phone] 03/26/2022 Comprehensive Visit Ophthalmology Chas Shin M.D. [address] [place] [phone] 03/29/2022 Comprehensive Visit Endocrinology Farzana Allen M.D. [address] [place] [phone] 04/04/2022 Appointment Radiology Christina Tai P.A.-C., M.S. [address] [place] [phone] 04/04/2022 Office Visit Oncology Vini Maki M.D., Ph.D. [address] [place] [phone] 04/04/2022 Office Visit Neurological Surgery Charles Ivey M.D., Ph.D. [address] [place] [address] [phone] 05/03/2022 Comprehensive Visit Clinical Genomics Sanya Mehta M.D. [address] [place] [address] [phone] 05/06/2022 Clinical Communication Admitting/Central Scheduling 05/09/2022 Office Visit Oncology Farzana Allen M.D. [address] [place] [address] [phone] documented as of this encounter Visit Diagnoses Not on filedocumented in this encounter
--- OUTSIDE RECORDS SUMMARY | 2022-03-12 14:34 | XMS_ITS | Encounter Summary ---
:1970 Author Organization [facility] Address [address] [place] [address] Care Team Providers Name Role Phone Unavailable Primary Care Provider Unavailable Reason for Visit Auth/Cert Specialty Diagnoses / Procedures Referred By Contact Refer red To Contact Diagnoses Malignant Neoplasm Of Brain (HCC) Procedures NC CRANIOT SUBDURAL IMPL ELECTRODE NC MAPPING CORTICAL INITIAL HR Awake left temporoparietal stereotactic craniotomy tumor resection, speech mapping, intraop MRI, supine position. Referral ID Status Reason Start Date Expiration Date Visits Requ ested Visits Authorized [id number] 1 1 Encounter Details Date Type Department Care Team Description 01/10/2022 Hospital Encounter Department of Ivey, Charles Malign ant Neoplasm Radiology in [place] Ph.D. Of Brain ([facility]) [place], [address] [place] [address] [place] [phone] [place], [place] [phone] (Work) [phone] Social History Tobacco Use Types Packs/Day Years [...] completed or the highest Maulik, MEd, JAVA ANALYST, 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 Sex Assigned at Date Recorded Female 01/07/2022 11:11 AM CDT documented as of this encounter Medications at Time of Discharge Medication Sig Dispensed Refills Start Date End Date VITAMIN B COMPLEX ORAL Take 1 tablet by 0 mouth daily. acetaminophen (Tylenol Take 1,000 mg by 0 022 01/24/2022 Extra Strength) 500 mg mouth 3 (three) tablet times a day as needed for pain. dexAMETHasone (DECADRON) Take 1 tablet (1 mg 16 tablet 0 01/24/2022 1 mg tablet total) by mouth every 6 (six) hours for 16 doses. dexAMETHasone (DECADRON) Take 2 tablets (3 mg 14 tablet 0 0 01/17/2022 01/24/2022 1.5 mg tablet total) by mouth every 6 (six) hours for 7 doses. dexAMETHasone (DECADRON) Take 1 tablet (2 mg 16 tablet 0 01/24/2022 2 mg tablet total) by mouth every 6 (six) hours for 16 doses. dexAMETHasone (DECADRON) Take 1 tablet (4 mg 48 tablet 0 01/17/2022 4 mg tablet total) by mouth 2 (two) times a day for 48 doses. Take first dose with food in the morning. Take second dose with food no later than 4 pm. levETIRAcetam (KEPPRA) Take 1,000 mg by 0 022 01/24/2022 1,000 mg tablet mouth 2 (two) times a day. methocarbamoL (ROBAXIN) Take 1 tablet (750 0 12/2401/24/2022 750 mg tablet mg total) by mouth every 6 (six) hours as needed for muscle spasms. oxyCODONE (ROXICODONE) 10 Take 1 tablet (10 mg 0 01/17/2022 01/24/2022 mg IR tabletIndications: total) by mouth Acute Pain Exception every 4 (four) hours as needed for severe pain or score 7-10 of 10 (or for pain greater than comfort goal) Indication: Acute Pain Exception. oxyCODONE (ROXICODONE) 5 Take 1 tablet (5 mg 0 01/24/2022 mg immediate release total) by mouth tabletIndications: Acute every 4 (four) hours Pain Exception as needed for moderate pain or score 4-6 of 10 Indication: Acute Pain Exception. 25/iron Take 1 tablet by 0 fum/folic/dha (-1 mouth daily. ORAL) sennosides-docusate Take 1 tablet by 0 01/17/2022 01/24/2022 sodium (SENOKOT-S) 8.6-50 mouth at bedtime as mg per tablet needed for constipation. temozolomide (TEMODAR) Take 140 mg by mouth 0 04/202201/24/2022 140 mg capsule daily. temozolomide (TEMODAR) 20 Take 20 mg by mouth 0 0 12/31/2021 01/24/2022 mg capsule daily. TURMERIC ORAL Take 1 capsule by 0 07/02/2022 mouth daily. documented as of this encounter Plan of Treatment Upcoming Encounters Date Type Specialty Care Team Description 03/12/2022 Appointment Radiation Oncology Stephanie Gleason M.D. [address] [place] [phone] 03/12/2022 Appointment Radiation Oncology Stephanie lGeason M.D. [address] [place] [phone] 03/13/2022 Appointment Radiation Oncology Stephanie Gleason M.D. [address] [place] [phone] 03/14/2022 Appointment Radiation Oncology Stephanie Gleason M.D. [address] [place] [phone] 03/25/2022 Ancillary Procedure Ophthalmology Chas Shin M.D. [address] [place] [phone] 03/25/2022 Ancillary Procedure Ophthalmology 03/25/2022 Ancillary Procedure Ophthalmology Chas Shin M.D. [address] [place] [phone] 03/26/2022 Ancillary Procedure Ophthalmology Rebeca Valle P.Domingo.-Rusty., M.S. [address] [place] [address] [phone] 03/26/2022 Comprehensive Visit Ophthalmology Chas Shin M.D. [address] [place] [phone] 03/29/2022 Comprehensive Visit Endocrinology Farzana Allen M.D. [address] [place] [phone] 04/04/2022 Appointment Radiology Christina Tai P.A.-C., M.S. [address] [place] [phone] 04/04/2022 Office Visit Oncology Vini Maki M.D., Ph.D. [address] [place] [address] [phone] 04/04/2022 Office Visit Neurological Surgery Charles Ivey M.D., Ph.D. [address] [place] [address] [phone] 05/03/2022 Comprehensive Visit Clinical Genomics Sanya Mehta M.D. [address] [place] [address] [phone] 05/06/2022 Clinical Communication Admitting/Central Scheduling 05/09/2022 Office Visit Oncology Farzana Allen M.D. [address] [place] [phone] documented as of this encounter Procedures Procedure Name Priority Date/Time Associated Comments Diagnosis MR BRAIN WITHOUT RAD - Routine 01/10/2022 5:35 Malignant Result s for this AND WITH IV (most inpatients PM CDT Neoplasm Of Brain proced ure are in CONTRAST and all (HCC) the results outpatients) section. documented in this encounter Results MR Brain without and with IV Contrast [...] COMPARISON: Multiple prior MRIs of the b rain most recently 01/09/2022 CLINICAL: History of grade [...] COMPARISON: Multiple prior MRIs of the b rain most recently 01/09/2022 CLINICAL: History of grade [...] soft tissues. 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 Expec anayeli postoperative left convexity extra- axial collection and pneumocephalus, similar vasogenic edema and mass effect resulting in 12 mm rightward midline shift, stable. Enhancement surrounding the rese ction cavity should be postoperative without evidence for gross residual enhancing tumor. Charles Ivey M.D., Ph.D. IMG MRI PROCEDURES documented in this encounter Visit Diagnoses Diagnosis Malignant Neoplasm Of Brain (HCC) documented in this encounter Administered Medications Inactive Administered Medications - up to 3 most recent administrations Medication Order MAR Action Action Date Dose Rate Site gadobutrol injection 0.01-30 mL Given 01/10/2022 5:36 PM CDT 8 mL (GADAVIST) 0.01-30 mL, intravenous, Once in imaging, contrast, Starting on Bee 01/10/22 at 1735, For 1 dose, Imaging Protocol Orders, Dose per Radiant Medication Guidelines Intrathecal doses greater than 0.25 mL not recommended. documented in this encounter
--- OUTSIDE RECORDS SUMMARY | 2022-03-12 14:34 | XMS_ITS | Encounter Summary ---
:1970 Author Organization [facility] Address [address] [place] [address] Care Team Providers Name Role Phone Unavailable Primary Care Provider Unavailable Reason for Visit Auth/Cert Specialty Diagnoses / Procedures Referred By Contact Refer red To Contact Diagnoses Malignant Neoplasm Of Brain (HCC) Procedures MO CRANIOT SUBDURAL IMPL ELECTRODE MO MAPPING CORTICAL INITIAL HR Awake left temporoparietal stereotactic craniotomy tumor resection, speech mapping, intraop MRI, supine position. Referral ID Status Reason Start Date Expiration Date Visits Requ ested Visits Authorized [id number] 1 Encounter Details Date Type Department Care Team Description 01/09/2022 - Hospital Encounter [facility] Ivey, Charles Tumor B rain (HCC) (Primary Dx); 01/17/2022 [facility] Esteban M.D., Ph.D. Malignant Neoplasm Of Brain (HCC); [facility], [address] Change Mental Status; [facility], [place], [place] Abnormal Ga it Non Orthopedic; Ninth Floor [id number] Concern Patient Cognition Function; [address] [place] [address] Deficit Cognitive Communicat ion; [place], [place] (Work) Decline Cognitive [phone] Social History Tobacco Use Types Packs/Day Years [...] or relatives? How often do you attend jain or More than 4 times per year 01/07/2022 denominational services? Do you belong to any clubs or No 01/07/2022 organizations such as jain groups, unions, fraGini & Jony or athletic groups, or school groups? How [...] have completed or the highest Maulik, MEd, METALS ANALYST, 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 Sex Assigned at Date Recorded Female 01/07/2022 11:11 AM CDT documented as of this encounter Last Filed Vital Signs Vital Sign Reading Time Taken Comments Blood Pressure 122/71 01/17/2022 10:05 AM CDT Pulse 84 01/17/2022 10:05 AM CDT Temperature 36.9 ??C (98.42 ??F) 01/17/2022 10:05 AM CDT Respiratory Rate 16 01/17/2022 10:05 AM CDT Oxygen Saturation 98% 01/17/2022 10:05 AM CDT Inhaled Oxygen Concentration - - Weight 88.9 kg (195 lb 15.8 oz) 01/11/2022 4:00 AM CDT Height 169 cm (5' 6.54) 01/16/2022 3:44 PM CDT Body Mass Index 31.13 01/11/2022 4:00 AM CDT documented in this encounter Discharge Summaries Madiha Castro M.D. - 01/17/2022 6:47 AM CDT DISCHARGE SUMMARY BRIEF OVERVIEW Hospital: [facility] Discharge Provider: Charles Ivey M.D. Primary Team: RST Neurologic Surgery - Ivey No primary care provider on file. Primary Care Provider Phone Number: None Primary Care Provider Fax Number: None Admission Date: 01/09/2022 Discharge Date: 01/17/2022 PRINCIPAL DIAGNOSIS Tumor Brain (HCC) SECONDARY DIAGNOSES Principal Problem: Tumor Brain (HCC) Active Problems: Malignant Neoplasm Of Brain (HCC) Resolved Problems: * No resolved hospital problems. * Surgery Information This Encounter Past Procedures (01/17/2021 to Today) Date Procedures Providers Location 01/10/2022 Asleep left temporoparietal stereotactic craniotomy tumor resection, speech mapping, supine position, intraoperative MRI, BK ultrasound. Charles Ivey M.D., Ph.D.Madiha Castro M.D.Himes, Benjamin T, M.D., Ph.D.Marisol Avilez, Ph.D., L.P. T ROMB OR DISCHARGE DISPOSITION Rehab Facility [62] ACTIVE ISSUES REQUIRING FOLLOW UP OUTPATIENT FOLLOW UP Scheduled Appointments 01/25/2022 12:00 PM Evangelist Salinas M.D., Ph.D. Neurological Surgery 01/31/2022 8:20 AM Rebeca Valle P.A.-C., M.S. Oncology 01/31/2022 10:00 AM Iban De La Cruz M.D. Radiation Oncology 01/31/2022 2:15 PM Sejal Resendiz M.S., [facility] Clinical Genomics 02/07/2022 1:20 PM Farzana Allen M.D. Oncology 04/04/2022 8:20 AM MR LOUISEN LO MR 69 3T Radiology 04/04/2022 1:00 PM Charles Ivey M.D., Ph.D. Neurological Surgery For appointment details refer to your Patient Appointment Guide. TEST RESULTS PENDING AT DISCHARGE Pending Labs Order Current Status Pathology Exempt Research Only Collected (01/10/22 1404) DETAILS OF HOSPITAL STAY REASON FOR ADMISSION Tumor Brain (HCC) HOSPITAL COURSE Mia Richardson is a 51 y.o. female with a PMHx of hypertension and recent biopsy and [place] [facility] [place] 3 astrocytoma, IDH wildtype, MGMT unmethylated. She was admitted to the neurological ICU following resection for concerns of subclinical seizure. During her stay in the ICU routine EEG performed which did not show any evidence of epileptiform discharges. She underwent left temporoparietal crani on 01/10 for resection of Grade 3 astrocytoma, IDH wildtype,MGMT unmethylated. Preop symptoms: lethargic, not oriented, significant pain, nausea, word-finding difficulties, likely seizure. Underwent biopsy and subtotal [place] 12[place] [facility] After surgery, she improved temporarily, but then developed severe fatigue, headaches, vision/speech/taste/smell changes this past weekend. More recent imaging shows increased contrast enhancement, mass effect, and midline shift. On admission, she could not answer questions or follow commands. She had severe nausea, f requent episodes of emesis, complained of significant headache and pain, but was moving all extremities symmetrically. For the first day after surgery, she was unable to answer questions or follow commands. By the evening of POD#1, she was able to say her name and follow simple commands. Her exam improved steadily throughout her hospitalization. 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 CONSULTS ORDERED DURING THIS ADMISSION IP CONSULT TO HOSPITAL INTERNAL MEDICINE IP CONSULT TO CARE MANAGEMENT IP CONSULT TO PHARMACY INTAKE TECHNICIAN CARDIO TECH IP CONSULT TO PHYSICAL MEDICINE & REHABILITATION IP CONSULT TO DIETITIAN CONDITION AT DISCHARGE stable Discharge instructions were provided to the patient and caregiver(s). documented in this encounter Discharge Instructions Discharge InstructionsPrincess Tu Wong - 01/14/2022 8:18 AM CDT NEUROSURGERY FOLLOW RECOMMENDATIONS: The patient will need a Neuro Oncology consultation. This has been scheduled and a Patient Appointment Guide will be provided upon discharge. The patient will also need a Brain MRI, with and without contrast, and a return visit with Dr. Ivey, or his Physician's Steerer, Eileen Tai, in approximately 3 months. These appointments have been scheduled. If there are any questions or concerns about the appointments, please call the Neurosurgery Patient Appointment Service Specialists at . Discharge Instr - London Altamirano PBritt - 01/16/2022 12:30 PM CDT Physical Therapy Discharge Summary MOBILITY RESTRICTIONS/PRECAUTIONS: Precautions Other Precautions: fall, impulsive safety awareness, vision, headaches, light sensitivity, right hippain due to likely trochanteric bursitis(question possible injection to help) CURRENT FUNCTIONAL STATUS: Bed Mobility-Supine to Sit # of Assistants: 1 Level of Assistance: Supervision/Set-up Device: Head of bed elevated Cuing: Verbal; Tactile Transfer-Sit to Stand # of Assistants: 1 Transfer Surface: Bed Transfer Equipment: Gait belt Level of Assistance: Contact guard assistance Gait Assessment Distance (m): 75 m Surface: Even; Smooth/hard Device: Gait belt # of Assistants: 1 Level of Assistance: Contact guard assistance Quality/Pattern: Antalgic; Decreased heel strike; Decreased toe off Assessment of Gait: slower deliberate gait, but improved upright posture taking good steps overall. narrower base as she is walking. slight antalgic gait on right due to complaints of right hip pain.will bump into door on right side at times. Stairs # Stairs: 10 Rails: 1 Device: No device; Gait belt # of Assistants: 1 Level of Assistance: Minimal assistance Stair Navigation Pattern-Ascending: Reciprocal pattern Stair Navigation Pattern-Descending: Reciprocal pattern Quality of Stair Negotiation: up and down stairs with slower cautious movement. Some difficulty on turns at top. RECOMMENDATIONS: PT Evaluate and Treat; frequency and duration to be determined by evaluating therapist. Discharge information provided on 01/16/2022 Contact information: [facility], Acute Therapy Services [phone] documented in this encounter Medications at Time [...] every 6 (six) hours for 16 doses. methocarbamoL (ROBAXIN) Take 1 tablet (750 0 12/2401/24/2022 750 mg tablet mg total) by mouth every 6 (six) hours as needed for muscle spasms. oxyCODONE (ROXICODONE) Take 1 tablet (10 mg 0 01/24/2022 10 mg IR total) by mouth tabletIndications: Acute every 4 (four) hours Pain Exception as needed for severe pain or score 7-10 of 10 (or for pain greater than comfort goal) Indication: Acute Pain Exception. oxyCODONE (ROXICODONE) 5 Take 1 tablet (5 mg 0 01/24/2022 mg immediate release total) by mouth tabletIndications: Acute every 4 (four) hours Pain Exception as needed for moderate pain or score 4-6 of 10 Indication: Acute Pain Exception. sennosides-docusate Take 1 tablet by 0 01/17/2022 01/24/2022 sodium (SENOKOT-S) mouth at bedtime as 8.6-50 mg per tablet needed for constipation. dexAMETHasone (DECADRON) Take 1 tablet (1 mg 7 tablet 0 01/26/2022 1 mg tablet total) by mouth every 6 (six) hours for 2 days. Last dose will be at 9pm on 01/26/2022 gabapentin (NEURONTIN) Take 1 capsule (300 14 capsule 0 /09/202102/06/2022 300 mg capsule mg total) by mouth at bedtime. levETIRAcetam (KEPPRA) Take 1,000 mg by 0 022 01/24/2022 1,000 mg tablet mouth 2 (two) times a day. 25/iron Take 1 tablet by 0 fum/folic/dha mouth daily. (-1 ORAL) temozolomide (TEMODAR) Take 140 mg by mouth 0 04/202201/24/2022 140 mg capsule daily. temozolomide (TEMODAR) Take 20 mg by mouth 0 05/0 04/202201/24/2022 20 mg capsule daily. TURMERIC ORAL Take 1 capsule by 0 /0 02/2022 mouth daily. documented as of this encounter Progress Notes Gabrielle Cote R.N. - 01/17/2022 9:48 AM CDT Seeing in follow-up for Brain Rehabilitation Consult Service. I reviewed the notes and discussed with the rehab team during morning rounds. Rehab team recommends ongoing inpatient rehab. Insurance approval was obtained for admission to rehab today. I discussed with Ms. Cedillo and her mother (via telephone) rehab admission process. I updated primary service and RN caregiver. Paulina Jiménez R.N. - 01/17/2022 9:22 AM CDT SUBJECTIVE scrummaster visited with patient regarding her dismissal questions. OBJECTIVE Patient sitting up in bedside chair. Patient alert, pleasant and engaged in conversation. Patient expressing difficulty understanding the dismissal options. ASSESSMENT / PLAN PARTS ANALYSTmachine long goods helper visited with patient regarding her questions with dismissal planning. Patient indicating she is having difficulty understanding her dismissal plan. Inquiring about inpatient rehab closer to her home. Discussed limited options closer to her home that are significantly closer than [place] in patient rehab. Discussed the benefit of rehab as soon as medically stable. We began dicussing the different levels of care. Though patient wanting to contact her mom Libby, stating she knows she won't remember all the information. Patient contacted Libby via phone. machine long goods helper introduced self and role to Libby. Advised previous discussion with patient to collect back round information and home support for discharging planning. Discussed visit today, as patienthad questions regarding dismissal. Libby stated she has not been involved with conversations with discharge planning. Discussed the different level of care options, Inpatient rehab, SNF, home with family support and outpatient therapy. Advised therapy has been assessing for inpatient rehab and approvalfor insurance has been submitted. machine long goods helper advised unsure where their process is at. Libby and patient requested more information from inpatient rehab. Libby stating if insurance is not able to approve she will take patient home and follow a therapy plan. Stating she would like to know by noon today. Libby stating they are defiantly interested in inpatient rehab. Verbalizing she did not think SNF would offer much benefit with the lessened therapy time in comparison to inpatient rehab. machine long goods helper advised will reach out to the team for more information and someone will return call to explain more about inpatient rehab. After leaving patient room, machine long goods helper has learned patient's insurance has approved patient's admission to inpatient rehab. machine long goods helper reached out to team, for request that someone speak to patient and patients mom about inpatient rehab. PLAN machine long goods helper will continue to follow during hospitalization, assisting with a safe dismissal plan. Alberto Jiménez R.N. 01/17/22 Erika Alicea M.S., [facility]-PROGRAM ARCHITECT - 01/17/2022 9:15 AM CDT Speech Language Pathology Communication/Cognitive Treatment- Acute Care Session Type: Treatment Length of session: 20 minutes SUBJECTIVE Ms. Cedillo was seen for therapy this morning while seated upright in recliner chair. She participated fully. Her mother was on speaker phone for part of our session. General Family/Caregiver Present: No Arousal/Alertness: Appropriate responses to stimuli Behavior: Alert, Cooperative, Distractible, Pleasant mood Pain Patient denies overt pain OBJECTIVE Objective Session Data Verbal Expression Primary Mode of Expression: Verbal Primary Language: Maldivian Open Ended Questions: 100% accuracy Conversation: Impaired Impaired Conversation: Mild Cognition Overall Cognitive Status: Impaired Attention: Impaired Sustained: Mild Alternating: Moderate Memory: Impaired Problem Solving: Impaired Impulsive: Mildly impulsive Pragmatics Affect: Within Normal Limits (WNL) Eye Contact: Within Normal Limits (WNL) Humor: Within Normal Limits (WNL) Topic Maintenance: Mild Turn Taking: Mild Assessment Ms. Cedillo demonstrate significant improvement with a verbal fluency task, compared to performance several days ago. She is able to name 12 animals in one minute and does not become distracted during this task. She is demonstrating improved awareness of deficit, commenting on her limitations such as stating that she may not remember information correctly because she ???broke her brain?? . She continues to demonstrate mild to moderate impulsivity within tasks. She often provides disorganized responses to questions but is improving with this. After she is provided education on the inpatient rehabilitation unit, she generates appropriate questions. We speak extensively with her mother on speakerphone about role of PROGRAM ARCHITECT services in addressing cognitive communication deficit in the inpatient rehabilitation setting. Contact Monitoring: Clinician was wearing the following PPE for the duration of today's session(s): surgical mask and eye protection Goals: Auditory Comprehension Short Term Goal 1 Auditory Comprehension Short Term Goal 1: Patient will follow verbal commands of increasing length with 1 repetition with 90% accuracy. Auditory Comprehension Short Term Goal 1 Progress Toward Goal: Progress toward goal completion: continue on target Verbal Expression Short Term Goal 1 Verbal Expression Short Term Goal 1: Patient will answer demongraphic questions with increased time with 100% accuracy Verbal Expression Short Term Goal 1 Progress Toward Goal: Goal met: complete goal Diagnosis: Impressions Consistent with a diagnosis of: Non-Aphasic Cognitive Communication Disorder, Aphasia Aphasia: Mild Non-Aphasic Cognitive Communication Disorder: Moderate Plan Discharge Location: Inpatient rehab PROGRAM ARCHITECT Ongoing Services: Ongoing formal Speech Pathology services Duration of Treatment: inpatinet stay Rehab Potential: Good Michael De Los Santos M.D., Ph.D. - 01/17/2022 9:11 AM CDT Facility Information: [facility] Rehabilitation Pre-Admission Screening Patient Information Patient Name: Mia Richardson [address]: [address] [place] [id number] Sex: Female Date of : 1970 Age: 51 y.o. Room/Bed: 746/746-P Coverage Information: Payor: [employer] BLUE SHIELD / Plan: [employer]BS [place] / Product Type: PPO / ____ Rehab Physician's Review and Admission Determination Ms. Cedillo is in need of acute inpatient rehabilitation in order to achieve the functional goals outlined below. She requires close rehabilitation physician monitoring and management due to her complex medical conditions and co- morbidities. She requires 24-hour rehabilitation nursing to manage [place] bladder function, medication management, patient / family goals, skin care, surgical incision, nutrition and fluid intake, pulmonary hygiene, pain control, safety. In addition, rehabilitation nursing will reiterate and reinforce therapy skills and equipment use, including ADLs, as well as provide education to the patient and family. Ms. Cedillo is willing to participate and is able to tolerate the proposed plan of care. History of Present Illness and Rehabilitation Problem Rehabilitation Diagnosis Impairment Group: Brain Dysfunction Brain Dysfunction Impairment Group: 02.1 Non-Traumatic Date of Surgery: 01/09/22 Medical / Functional Conditions Requiring Inpatient Rehab: Non-Aphasic Cognitive Communication Disorder; Aphasia; Impairment in mobility and self-cares; Risk for medical/clinical complications: Aspiration, Falls, Pain, Seizure History of Present Illness: Ms. 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 Thepatient underwent a stereotactic biopsy of a left temporal region of hyperintensity in November at [facility]. The pathology apparently revealed IDH wild type, grade 3 astrocytoma. Multiple additional areas of hyperintensity were also seen including in the left hippocampus mesial tothe main lesion as well as in the thalamus. The patient, her sister, and mother note that her performance has deteriorated markedly in the past several days with worsening aphasia, confusion, and increasing headaches. She was admitted for resection of left temporoparietal craniotomy for high grade glial tumor 01/09/2022. She is now medically ready for acute inpatient rehabilitation. She requires closephysiatrist oversight due to her complex medical condition and co-morbidities. She requires 24-hour nursing rehabilitation to manage bowel and bladder function, skin care, surgical incision/wound, nutrition and fluid intake, pulmonary hygiene, pain control, safety, and medication management. Reiteratetherapy skills and equipment including ADLs. Provide education to the patient and family. Reinforce the communication/cognitive plan. She is able to tolerate the required three hours of daily therapy. Home Living Type of Home: House Home Living Comments: Patient responding to all questions, but tends to perseverate and is not a realiable historian as evidenced by inconsistencies in responses and non-sensical statements. Per chart,her mother from [place] has been living with her recently and she has 3 children ages 29, 23, 21. Patient mentioned having a boyfriend named Erich. Home Living Type of Home: House Home Living Comments: Patient responding to all questions, but tends to perseverate and is not a realiable historian as evidenced by inconsistencies in responses and non-sensical statements. Per chart,her mother from [place] has been living with her recently and she has 3 children ages 29, 23, 21. Patient mentioned having a boyfriend named Erich. Home Equipment Home Adaptive Equipment: None Prior Function Level of [place]: Independent with ADLs and functional transfers Receives Help From: Family ADL Assistance: Independent IADL/Homemaking Assistance: Independent Driving: Independent Special Rehabilitation Needs Special Rehabilitation Needs Safety Equipment at Bedside: None Requires modified schedule: No Cultural Requests During Hospitalization: None Precautions Precautions Precautions: Aspiration precautions, Seizure precautions Diet Adult Diet Regular Discharge Diet for Adults Current Functional Status Eating: Setup or clean-up assistance (01/15/221218) Grooming: Supervision or touching assistance (01/15/221218) Upper Body Dressing: Partial/moderate assistance (Minimal assistance) (01/15/221218) Lower Body Dressing: Partial/moderate assistance (Minimal assistance) (01/15/221218) Toileting: Partial/moderate assistance (Minimal assistance) (01/15/221218) Bathing: Partial/moderate assistance (Minimal assistance) (01/15/221218) Bed Mobility: Partial/moderate assistance (Minimal assistance) (01/15/221218) Transfers: Partial/moderate assistance (Minimal assistance) (01/15/221218) Functional Mobility: Partial/moderate assistance (01/15/221218) Distance: 5 Meters (01/15/221218) Willingness to Participate: Independent (01/15/221218) Cognition: Supervision or touching assistance (01/15/221218) Communication: Supervision or touching assistance (01/15/221218) Assistive Device: None (01/15/221218) Weight Bearing Status Upper Extremity Weight Bearing Restrictions RUE Weight Bearing: Weight bearing as tolerated LUE Weight Bearing: Weight bearing as tolerated Lower Extremity Weight Bearing Restrictions RLE Weight Bearing: Weight bearing as tolerated LLE Weight Bearing: Weight bearing as tolerated Rehabilitation Goals and Plans Rehab Goals and Plan Expected Level of Improvement for Mobility: The patient will ambulate safely and independently with a gait aid as needed Expected Level of Improvement for Self Care: Independent with ADLs with or without equip Expected Level of Improvement for Cognition: The patient will solve problems with extra time Expected Level of Improvement for Communication: The patient will communicate with extra time Patient/Caregiver Goals: To return home with family Patient/Caregiver Goals: Return to home. [place] with ADL and IADL tasks. Required Treatments and Services: Rehabilitation Physician, Rehabilitation Nursing, Physical Therapy, Occupational Therapy, Speech Therapy, Recreational Therapy, Bakery Worker Conveyor Line, Nurses' Association Counselor, Rehabilitation Psychology, Bowel and Bladder Management, Floor Layer Helper, and Deli Department Manager Services Anticipated Services Upon Discharge Anticipated Interventions Anticipated Interventions: Physical Therapy, Occupational Therapy, Speech Therapy PT Projected Minutes/Day: 90 PT Projected Days/Week: 5 OT Projected Minutes/Day: 90 OT Projected Days/Week: 5 PROGRAM ARCHITECT Projected Minutes/Day: 30 PROGRAM ARCHITECT Projected Days/Week: 5 Rehabilitation nursing to manage: bowel and bladder function, medication management, patient / family goals, skin care, surgical incision, nutrition and fluid intake, pulmonary hygiene, pain control, safety Discharge Information Discharge information Projected Admission Date: 01/17/22 Barriers: Comorbidities Discharge Support: Family Estimated Length of Stay: 10 days Anticipated Discharge Destination: 01 - Home (private home/apartment, assisted living, alf, transitional living) Anticipated Services Upon Discharge Anticipated Services Upon Discharge: Outpatient Therapy Learning Assessment Questions Primary Learner Name: Mia Relationship: Patient Does the primary learner have any barriers to learning?: Reading What is the preferred language of the primary learner for medical teaching?: Maldivian Is an operations developer required?: No How does the primary learner prefer to learn new concepts?: Demonstration / Seeing, Doing, Listening Relationship: Patient Is an operations developer required?: No Assessment answers provided by?: Patient Information Brochures Given: Data Collection Information Summary for Patients in Inpatient Rehabilitation Facilities, Brain Rehabilitation [id number], Inpatient Rehabilitation Programs [id number] Michael De Los Santos M.D., Ph.D. Madiha Castro M.D. - 01/17/2022 6:44 AM CDT 9-746 Mia Cedillo [birth year] 51F Glioma Resection [id number] - S/p left temporoparietal crani on 01/10 for resection of Grade 3 astrocytoma, IDH wildtype, MGMT unmethylated. Preop symptoms: lethargic, not oriented, significant pain, nausea, word-finding difficulties, likely seizure. [place] [facility] After surgery, she improved temporarily, but then developed severe fatigue, headaches, vision/speech/taste/smell changes this past weekend. More recent imaging shows increased contrast enhancement, mass effect, and midline shift. On admission, she could not answer questions or follow commands. She had severe nausea, frequentepisodes of emesis, complained of significant headache and pain, but was moving all extremities symmetrically. For the first day after surgery, she was unable to answer questions or follow commands. Bythe evening of POD#1, she was able to say her name and follow simple commands. Her exam improved steadily throughout her hospitalization. 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 - No acute events. Her vision, mentation, and emotional stability seem improved this morning. Hopefully will discharge to inpt rehab today. - Pain well controlled, tolerating oral intake, voiding spontaneously, mobilizing well. - Exam: aaox3, right eye lateral visual field cut, CN 3-12 grossly intact, full strength with intactsensation, no pronator drift. - Plan: inpatient rehab if insurance approves today, decadron taper, Keppra 1 g BID, diet/mobilization as tolerated, pain management as needed (Toradol PRN is available). For questions or concerns, please page the Dr. Ivey service at [phone] Cici Hope RDN - 01/16/2022 3:49 PM CDT Clinical Nutrition: Initial Assessment Clinical Nutrition was requested to evaluate patient for length of stay and lactose allergy SUBJECTIVE Ms. Cedillo is a 51 y.o. female admitted for Tumor Brain (HCC) PMH: none Current Nutrition (since admission): Patient was alert, sitting in bed at time of visit. Did call mother during visit for more specific information on protein shake that she takes at home. Currently waiting to hear if she should pursue chemo and radiation therapy. Reports she has not felt nauseated sofar today and her head feels fine. Has been able to navigate the hospital menu okay with a lactose allergy- intolerance. Will leave as an allergy with comment of intolerance in EMR. Gets rash around inside of legs and around hips/groin area for any high content lactose products. Can tolerate lactose in small amounts of specific foods (ex: strawberries). Nutrition history: Patient reports following a ketogenic diet at [...] 20% protein, and 5% carbs rule. Mentioned tracking calories, protein,and fat on phone. Would eat roughly 900 kcals per day at home. For breakfast mainly drinks coffee and tea. Will have 3 cups of tea throughout the day. At lunch will have a protein shake that consist offlax seeds, rody seeds, egg white protein, beet root, tumeric, blueberries, olive oil, almond milk, and a sweetner like Stevia. Dinner is mainly a meat source such as fish, beef, and some chicken. Doestake several vitamins including B-complex, A, and D at home plus multivitamin. Food Allergies: none Chewing/Swallowing Issues: none stated Percentage of Meals Eaten for the past 72 hrs: Meals (%) 01/16/22 1000 100 01/15/22 1900 100 01/14/22 2100 100 01/14/22 1400 100 01/14/22 0840 75 01/13/22 2030 75 OBJECTIVE Current nutrition orders: Current Diet Adult Diet Regular starting at 01/10 1953 Labs: reviewed Medications: acetaminophen, 1,000 mg, oral, Q6H dexAMETHasone, 3 mg, oral, Q6H Followed by [START ON 01/19/2022] dexAMETHasone, 2 mg, oral, Q6H Followed by [START ON 01/23/2022] dexAMETHasone, 1 mg, oral, Q6H levETIRAcetam, 1,000 mg, oral, BID pantoprazole, 40 mg, oral, Daily before breakfast Anthropometrics: Height: 169 cm Admission Weight: 97.7 kg (01/09/2022) Current Weight: 88.9 kg [place] Body Weight (Calculated) : 60.3 kg BMI (Calculated): 31.1 kg/m?? Weight change since admission: -8.8 kg Weight Change History: Patient reports last weight at home was 198# (90 kg). Typically weight was running around 205-210# (93-95 kg). Currently at 88.9 kg. 6.4% loss in 3 months, not severe per AND/ASPEN standards. Wt Readings from Last 3 Encounters: 01/11/22 88.9 kg 01/01/22 97.7 kg Estimated Needs: Total Calorie Needs: 0889-2697 kcals calories/day Method to Estimate Energy Needs: Sebastian-Fletcher (75% to Basal) Weight Used for Equation Calculations: 88.9 kg Total Protein Needs: 78 - 90 grams/day (Method to Estimate Protein Needs (g/kg): 1.3 - 1.5 gm/kg) Weight Used to Calculate Protein Needs (Kg): 60.3 kg Nutrition Diagnosis: Unintended weight loss related to brain tumor as evidenced by 6.4% in 3 months Malnutrition Criteria: Average estimated Intake: No Change Weight Loss: (6.4% in 3 months) Body Fat: Normal (per visual) Muscle Mass: Normal (per visual) Nutritional Status: Well Nourished ASSESSMENT / PLAN Patient meets ASPEN/AND criteria for Well Nourished (01/16/2022 3:46 PM) See Nutrition Focused Physical Findings section for details. Nutrition Intervention: Interventions: Provide education to increase nutrition knowledge, Provide counseling strategies to apply nutrition knowledge, Vitamin and mineral supplements. Recommendations: ??? No changes at this time; continue current nutrition orders ??? Will leave allergy in EMR as is appropriate. Monitoring/Evaluation: Nutrition parameter to monitor: Meals/Supplement Intake, Fluid Balance, Mental Status/Confusion, Weight Status, Nausea/Vomiting/Diarrhea, Chewing/Swallowing, Pertinent Labs Desired Outcome: Patient will follow regular diet in hospital to meet calorie and protein needs. Patient Goal(s): 1. Patient will consume >75% of meals while in hospital For questions about patient's nutritional care please contact pager [phone] on weekdays or [phone] on weekends/holidays. Pradeep Marquez MDIV - 01/16/2022 3:35 PM CDT Encounter: Spiritual Care Contact Situation: Deli Department Manager visit following up from 01/14/22 mixer whipped topping visit. Mia declined visit and requested stop back a different day. I affirmed preference. Plan: Will remain available for spiritual care as needed or requested. Chaplains can be contacted by paging [phone] ([facility]) or [phone] ([place]). Sona Ma O.T., O.T.D. - 01/16/2022 3:04 PM CDT Occupational Therapy [facility] Inpatient Progress Note SUBJECTIVE Patient's Name: Mia Richardson Reason for Referral: OT eval and treat- brain consult Medical Diagnosis: 1. Tumor Brain (HCC) 2. Malignant Neoplasm Of Brain (HCC) 3. Change Mental Status 4. Abnormal Gait Non Orthopedic 5. Concern Patient Cognition Function 6. Deficit Cognitive Communication 7. 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 [place] with ADL and IADL tasks. Patient Comments: Pt agreeable to OT intervention. Reports feeling better this date. Precautions Other Precautions: fall, impulsive safety awareness, vision, headaches, light sensitivity, right hippain due to likely trochanteric bursitis(question possible injection to help) Fall Risk (65 and older) Fall in the last 12 months: No Are you fearful of falling?: Yes OBJECTIVE Pain: Pt reported no pain during therapy session this date. Vitals: Not indicated at this time Home Management: Grooming Grooming Location: Standing at sink Grooming Delivery: Assessed, Instructed, Facilitated, Therapist assisted Grooming Level of Assistance: Supervision/Set-up Grooming Comments: Supervision for hand hygiene after completing toileting tasks. No verbal cues required this date for sequencing completion. Toileting Toileting Location: Toilet Toileting Delivery: Assessed, Instructed, Educated, Facilitated Toileting Adaptive Equipment: Grab bars Toileting Level of Assistance: Supervision/Set-up Toileting Comments: Transfer to and from toilet with supervision, clothing management and hygiene with supervision. Pt demonstrated impulsivity when asking to use bathroom requiring verbal cues for safety. Adaptive Interventions Adaptive Intervention/Education: Patient was educated on energy conservation and how to apply those techniques to activities of daily living., Patient was educated on activity modification and how to apply those techniques to activities of daily living. ADL Comments ADL Comments: Patient completed personal information sheet. She was able to fille out name, date of , home address, home phone number and marital status accurately. With increasd time, she was able to fill out reason for hospitalization. For hosptial name, she reported [place] [facility], but then put [facility]. With cueing, she was able to correct to [place] and accurately put [place] for [facility], improved from completion during previous date. Hartford Test Hartford Test is a symbol cancellation test that [...] scanning pattern. Total number of bells circled: 32 (Maximum of 35 bells within 264 distracters) Number of left omissions: 3 Number of right omissions: 0 Qualitative description of scanning pattern: Vertical Interpretation: Organized scanning pattern used from left to right, increased omissions on left sideof paper, though pt reported decreased vision on right side Assessment was administered today with paper and pencil via standardized form. Patient/Family Education: Education provided on brain breaks, non-linear recovery course after braininjury, energy conservation At the end of today's therapy session patient was left seated in bedside chair with the chair alarm on with an appropriate call light within reach. Patient's needs and questions addressed during today's session. Contact monitoring: PPE used during therapy: Therapist was wearing the following PPE throughout entire session: surgicalmask and eye protection Patient was wearing a mask during therapy session: no Additional Staff Present During Session: None Assessment Mia continues to make good progress during therapy sessions and remains motivated for intervention.Session this date targeting vision, cognition, and ADL performance. Pt completed toileting and grooming tasks at sink grossly at supervision this date, however impulsivity noted. During completion of bells cancellation test, pt demonstrated left sided omissions x3. Pt continues to report double visionin her right eye and left periphery and often closes one of her eyes when looking in the peripheral field. Pt demonstrated good use of organized scanning this date during completion. Improvements notedin cognition this date able to fill out personal information sheet with decreased cueing and improved accuracy. Pt would benefit from cognitive strategies such as a memory journal and formal cognitive screen in future sessions. At this time, Mia continues to present below her previous baseline and would benefit from further intervention to address. All of the above and previously listed impairments ( please see EMR/ initial OT evaluation for further detail) significantly impact pt ability to safely and independently complete activities of daily living and mobility. Patient continues to require skilled occupational therapy services to address listed deficits and to maximize safety and independence with ADLs, functional mobility, and home management tasks. From the Occupational Therapist's perspective, the patient is an inpatient rehabilitation candidate due to requiring ongoing physical assistance with skilled need for activities of daily living and/or cognition. Will formally discuss at next PMR team rounds and communicate with primary service angel leroy. Barriers to Discharge Home: Current functional status, Safety concerns Comorbid Conditions: Cancer Personal Factors: Visual impairment, Safety awareness, Communication deficit, Balance impairment Discharge Therapy Needs - OT: Ongoing skilled occupational therapy Level of Care Needed - OT: Assistance with toilet/shower transfers, Assistance with medication set up/administration, Assistance with showering/bathing, Assistance with dressing, Assistance with meal preparation, Assistance with director financial services, Assistance with transportation, Assistance with hous ekeeping, Assistance with shopping, Cognitive assistance needed Skilled therapy can include occupational therapy provided by home health, outpatient clinic, or a post-acute facility. The location of these services is determined by the patient's care team in partnership with patient/family. Recommended Adaptive Equipment - OT: Other (Comment) (Pending progress in therapy.) Functional Goals and Timeframes: OT Goal #1: Patient will participate in cognitive assessment to determine further therapy and safetyneeds. OT Goal #1 Status: Ongoing OT Goal #2: Patient will complete toilet transfer and toileting with supervision. OT Goal #2 Status: Ongoing OT Goal #3: Patient will complete bathing and dressing tasks with supervision. OT Goal #3 Status: Ongoing OT Goal #4: Patient will consistently maintain level of alertness x20 minutes to participate in occupational therapy session. OT Goal #4 Status: Achieved Progress: Progressing toward goals Plan Patient agrees with the plan of care and goals. Treatment Plan: OT Frequency: 5 times per week OT Amount: 1 visit per day OT Inpatient Duration : Until goals are met or hospital discharge Plan: Continue with current plan OT Plan Comments: Further vision assessment (appears to have double vision in periphery, functional cognitive tasks; activities of daily living, higher level cognition Treatment interventions may include: Treatment Interventions: Therapeutic functional activity, Neuromuscular re- education, Self-care/homemanagement, Cognitive skills training, Therapeutic exercise, Therapeutic modalities as needed, Orthosis [id number], Manual therapy Time Spent with Patient Therapeutic Interventions Home Management Training (min): 20 min Therapeutic Activity (min): 16 min Time Tracking Total Timed Units (min): 36 min Total Treatment Time (min): 36 min Qi Ma O.T., O.TEleazar [place] Fortune P.T. - 01/16/2022 10:27 AM CDT Physical Therapy Acute Hospital Inpatient Treatment SUBJECTIVE Patient's Name: Mia Richardson Medical Diagnosis: 1. Tumor Brain (HCC) 2. Malignant Neoplasm Of Brain (HCC) 3. Change Mental Status 4. Abnormal Gait Non Orthopedic 5. Concern Patient Cognition Function 6. Deficit Cognitive Communication 7. Decline Cognitive Patient Comments: Continues to be awake and alert. Feeling better overall. Precautions Other Precautions: fall, impulsive safety awareness, vision, headaches, light sensitivity, right hippain due to likely trochanteric bursitis(question possible injection to help) OBJECTIVE Pain: Vitals: Not indicated at this time Bed Mobility - Supine to Sit Level of Assistance: Supervision/Set-up Device: Head of bed elevated Bed Mobility - Sit to Supine # of Assistants: 1 Level of Assistance: Supervision/Set-up Device: Bed rail, Head of bed elevated Sit to Stand Transfers # of Assistants: 1 Transfer Surface: Bed Transfer Equipment: Gait belt Level of Assistance: Contact guard assistance Assessment/Delivery: Assessed Comments: contact guard assistance for monitoring balance. Stand to Sit Transfers # of Assistants: 1 Transfer Surface: Chair Transfer Equipment: Gait belt Level of Assistance: Contact guard assistance Comments: cues to feel bed with back of legs and reach back prior to decent Bed, Chair, Wheelchair Transfers # of Assistants: 1 Transfer Surface: Chair Transfer Approach: To and from, Ambulating Transfer Equipment: No device Level of Assistance: Contact guard assistance Assessment/Delivery: Assessed, Instructed Gait Assessment/Training Distance (m): 75 m Surface: Even, Smooth/hard Device: Gait belt # of Assistants: 1 Level of Assistance: Contact guard assistance Quality/Pattern: Antalgic, Decreased heel strike, Decreased toe off Assessment of Gait: slower deliberate gait, but improved upright posture taking good steps overall. narrower base as she is walking. slight antalgic gait on right due to complaints of right hip pain.will bump into door on right side at times. Training/Intervention: Cues for increased speed and rhythm with gait. Response: tolerated increased distance well. Stairs/Curb # Stairs: 10 Rails: 1 Device: No device, Gait belt # of Assistants: 1 Level of Assistance: Minimal assistance Stair Navigation Pattern-Ascending: Reciprocal pattern Stair Navigation Pattern-Descending: Reciprocal pattern Quality of Stair Negotiation: up and down stairs with slower cautious movement. Some difficulty on turns at top. Seated Exercise - Side Addressed: Bilateral Sitting Surface: Chair Seated Exercise: Ankle pumps, Marching, Long arc quads Sets/Repetitions: 1x10 Patient/Family Training: At the end of today's therapy session patient was left seated in bedside chair with an appropriate call light within reach. Patient's needs and questions addressed during today's session. Contact monitoring: PPE used during therapy: Therapist was wearing the following PPE throughout entire session: surgicalmask and eye protection Assessment Patient continues to do well and has been improving. Gait with cga 200 feet overall .She has beensteadily improving. Ongoing cognitive, processing issues though. Pain in right hip with previous bursitis. Tender to palpation. Question need for possible injection. Decreased vision, will clip doorways on right side at times. . Up and down 12 steps with use of railing with cga step over step. From the Physical Therapist's perspective, the patient is an inpatient rehabilitation candidate due to requiring ongoing physical assistance with skilled need for activities of daily living and/or cognition. Will formally discuss at next PMR team rounds and communicate with primary service accordingly. Barriers to a safe discharge home: Barriers to Discharge Home: Current functional status, Safety concerns Comorbid Conditions: Cancer Personal Factors: Visual impairment, Safety awareness, Communication deficit, Balance impairment Discharge Therapy Needs - PT: Ongoing skilled physical therapy Level of Care Needed - PT: Physical assistance needed, Cognitive assistance needed Skilled therapy can include physical therapy provided by home health, outpatient clinic, or a post-acute facility. The location of these services is determined by the patient's care team in partnershipwith patient/family. Functional Goals and Timeframes: PT Goal #1: patient will be independent with bed mobility, bed flat, no rail PT Goal #1 Status: Progressing PT Goal #2 Status: Progressing PT Goal #3: patient will be supervised to ambulate x 150 feet, no AD PT Goal #3 Status: Slowly progressing PT Goal #4: patient will ascend/descend flight of stairs with rail Progress: Progressing toward goals Plan Patient agrees with the plan of care and goals. Treatment Plan: PT Frequency: 5 times per week PT Inpatient Duration : Until goals are met or hospital discharge Plan: Continue with current plan PT Plan Comments: See for progressive gait and transfers as tolerated. Treatment interventions may include: Treatment/Interventions: Therapeutic exercise, Therapeutic functional activity, Neuromuscular re-education, Gait training Time Spent with Patient Therapeutic Interventions Therapeutic Activity (min): 15 min Therapeutic Exercise (min): 10 min Time Tracking Total Timed Units (min): 25 min Total Treatment Time (min): 25 min [place] Fortune P.T. Madiha Castro M.D. - 01/16/2022 6:38 AM CDT 9-746 Mia Cedillo [birth year] 51F Glioma Resection [id number] - S/p left temporoparietal crani on 01/10 for resection of Grade 3 astrocytoma, IDH wildtype, MGMT unmethylated. Preop symptoms: lethargic, not oriented, significant pain, nausea, word-finding difficulties, likely seizure. [place] and [place] 12[place] [facility] After surgery, she improved temporarily, but then developed severe fatigue, headaches, vision/speech/taste/smell changes this past weekend. More recent imaging shows increased contrast enhancement, mass effect, and midline shift. On admission, she could not answer questions or follow commands. She had severe nausea, frequentepisodes of emesis, complained of significant headache and pain, but was moving all extremities symmetrically. For the first day after surgery, she was unable to answer questions or follow commands. Bythe evening of POD#1, she was able to say her name and follow simple commands. Her exam improved steadily throughout her hospitalization. 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 - She reports that her vision symptoms have improved, but still has a difficult time describing them. Sometimes, she reports diplopia and other times just blurriness. The eye patch continued to be helpful yesterday, but she has not needed it today. - Her emotional lability and frustration with her cognitive impairments seems to be improving. - She is an inpatient rehab candidate and possibly could discharge on . - Exam: aaox3, right eye lateral visual field cut, CN 3-12 grossly intact, full strength with intactsensation, no pronator drift. - Plan: transfer to inpatient rehab if insurance approves on , decadron taper, Keppra 1 g BID, diet/mobilization as tolerated, pain management as needed (Toradol PRN is available). London Fortune PSanjuanitaT. - 01/15/2022 2:37 PM CDT Physical Therapy Acute Hospital Inpatient Treatment SUBJECTIVE Patient's Name: Mia Richardson Medical Diagnosis: 1. Tumor Brain (HCC) 2. Malignant Neoplasm Of Brain (HCC) 3. Change Mental Status 4. Abnormal Gait Non Orthopedic 5. Concern Patient Cognition Function 6. Deficit Cognitive Communication 7. Decline Cognitive Patient Comments: Much more awake and alert overall this morning. Precautions Other Precautions: fall, impulsive safety awareness, vision, headaches, light sensitivity OBJECTIVE Pain: Vitals: Not indicated at this time Bed Mobility - Supine to Sit # of Assistants: 1 Level of Assistance: Supervision/Set-up Bed Mobility - Sit to Supine # of Assistants: 1 Level of Assistance: Supervision/Set-up Sit to Stand Transfers # of Assistants: 1 Transfer Surface: Bed Transfer Equipment: Gait belt Level of Assistance: Minimal assistance Assessment/Delivery: Assessed, Instructed, Educated, Therapist assisted, Facilitated Stand to Sit Transfers # of Assistants: 1 Transfer Surface: Chair Level of Assistance: Minimal assistance, Hand held assistance Assessment/Delivery: Assessed, Therapist assisted, Facilitated, Instructed Bed, Chair, Wheelchair Transfers Transfer Surface: Chair Transfer Approach: To and from, Ambulating Transfer Equipment: No device Level of Assistance: Minimal assistance, Hand held assistance Gait Assessment/Training Distance (m): 75 m Surface: Even, Smooth/hard Device: Gait belt # of Assistants: 1 Level of Assistance: Hand hold assistance, Minimal assistance Assessment of Gait: slower deliberate gait, but improved upright posture taking good steps overall. narrower base as she is walking Training/Intervention: Cues for wider base of support. Response: tolerated increased distance well. Stairs/Curb # Stairs: 10 Rails: 1 Device: No device, Gait belt # of Assistants: 1 Level of Assistance: Minimal assistance Stair Navigation Pattern-Ascending: Reciprocal pattern Stair Navigation Pattern-Descending: Reciprocal pattern Quality of Stair Negotiation: up and down stairs with slower cautious movement. Some difficulty on turns at top. Standing Exercise - Side Addressed: Bilateral Standing Exercise: Shallow squats Sets/Repetitions: 09/03 Patient/Family Training: At the end of today's therapy session patient was left seated in bedside chair with an appropriate call light within reach. Patient's needs and questions addressed during today's session. Contact monitoring: PPE used during therapy: Therapist was wearing the following PPE throughout entire session: surgicalmask and eye protection Assessment Patient seen for ongoing therapy. Doing much better today overall with patient much more awake andalert. Progressed walking to 200 feet with minimal assistance and up and down 10 steps with use of railing with minimal assistance. Ongoing cognitive processing issues. Barriers to a safe discharge home: Barriers to Discharge Home: Current functional status, Safety concerns Comorbid Conditions: Cancer Personal Factors: Visual impairment, Safety awareness, Communication deficit, Balance impairment Discharge Therapy Needs - PT: Ongoing skilled physical therapy Level of Care Needed - PT: Physical assistance needed, Cognitive assistance needed Skilled therapy can include physical therapy provided by home health, outpatient clinic, or a post-acute facility. The location of these services is determined by the patient's care team in partnershipwith patient/family. Functional Goals and Timeframes: PT Goal #1: patient will be independent with bed mobility, bed flat, no rail PT Goal #1 Status: Progressing PT Goal #2 Status: Progressing PT Goal #3: patient will be supervised to ambulate x 150 feet, no AD PT Goal #3 Status: Slowly progressing PT Goal #4: patient will ascend/descend flight of stairs with rail Progress: Progressing toward goals Plan Patient agrees with the plan of care and goals. Treatment Plan: PT Frequency: 5 times per week PT Inpatient Duration : Until goals are met or hospital discharge Plan: Continue with current plan PT Plan Comments: See for progressive gait and transfers as tolerated. Treatment interventions may include: Treatment/Interventions: Therapeutic exercise, Therapeutic functional activity, Neuromuscular re-education, Gait training Time Spent with Patient Therapeutic Interventions Therapeutic Activity (min): 15 min Therapeutic Exercise (min): 10 min Time Tracking Total Timed Units (min): 25 min Total Treatment Time (min): 25 min London Fortune P.T. Marie Anaya O.Baljit. - 01/15/2022 2:18 PM CDT Occupational Therapy Acute Hospital Inpatient Progress Note SUBJECTIVE Patient's Name: Mia Richardson Reason for Referral: OT eval and treat- brain consult Medical Diagnosis: 1. Tumor Brain (HCC) 2. Malignant Neoplasm Of Brain (HCC) 3. Change Mental Status 4. Abnormal Gait Non Orthopedic 5. Concern Patient Cognition Function 6. Deficit Cognitive Communication 7. 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 Patient Comments: I'm doing better, but don't hae a schedule Precautions Other Precautions: fall, impulsive safety awareness, vision, headaches, light sensitivity OBJECTIVE Pain: No paint reported, but she reports confusion with current situation. Vitals:Not indicated at this time Grooming Grooming Location: Standing at sink Grooming Delivery: Assessed, Instructed, Educated Grooming Level of Assistance: Supervision/Set-up Grooming Comments: Cues to initiate task LE Dressing LE Dressing Items Included: Socks, Pants, Underwear/Adult incontinence briefs LE Dressing Level of Assistance: Supervision/Set-up Toileting Toileting Location: Toilet Toileting Delivery: Assessed, Instructed, Educated Toileting Adaptive Equipment: Grab bars Toileting Level of Assistance: Minimal assistance ADL Comments ADL Comments: Patient then completed personal information sheet. She was able to fille out name, date of , home address, home phone number , marital status accurately. She required cues for reasonfor hospitalization, shaina to report something ludivina. For hosptial name, she reported [facility] and then with cues and times switched to [facility]. She put [employer] for [facility] and [facility]. She appeared to be perseverating on previous answers to quesitons. Patient then completed Ankit's test, she appeared to have difficulty and double vision in right and left peripheral vision, appearing to close one eye when completing right and left sides but not midline. Toilet Transfers # of Assistants: 1 Transfer Surface: Toilet Transfer Approach: To and from Level of Assistance: Contact guard assistance Ankit's Test Ankit's Test is a screening tool used to detect the presence of unilateral spatial neglect or inattention. In this test, patients must cross out lines that are placed in assorted orientations on a standardized assessment form. Normally, an organized scanning strategy is demonstrated by a vertical or horizontal pattern. Qualitative description of scanning pattern: Horizontal and Organized, but increased time needed on right and left sides of paper and also observed to close one eye when looking at peripheral sides of paper. Patient/Family Education: Discussed slowing down with information, taking her time with responses. At the end of today's therapy session patient was left seated in bedside chair with an appropriate call light within reach. Patient's needs and questions addressed during today's session. Contact monitoring: PPE used during therapy: Therapist was wearing the following PPE throughout entire session: surgicalmask and eye protection Patient was wearing a mask during therapy session: no Assessment Patient alert and cooperative throughout therapy session this date. Throughout session patient wouldrequire repetition of questions as the answer did not match the question. She would occasionally perseverate on previous topic. She demonstrates visual difficulties, this date she appeared to have double vision in her right and left periphery and would often close one of her eyes when looking in the peripheral field. From the Occupational Therapist's perspective, the patient is an inpatient rehabilitation candidate due to requiring ongoing physical assistance with skilled need for activities of daily living and/or cognition. Will formally discuss at next PMR team rounds and communicate with primary service angel leory. Barriers to Discharge Home: Current functional status, Safety concerns Comorbid Conditions: Cancer Personal Factors: Visual impairment, Safety awareness, Communication deficit, Balance impairment Discharge Therapy Needs - OT: Ongoing skilled occupational therapy Level of Care Needed - OT: Assistance with toilet/shower transfers, Assistance with medication set up/administration, Assistance with showering/bathing, Assistance with dressing, Assistance with meal preparation, Assistance with director financial services, Assistance with transportation, Assistance with hous ekeeping, Assistance with shopping, Cognitive assistance needed Skilled therapy can include occupational therapy provided by home health, outpatient clinic, or a post-acute facility. The location of these services is determined by the patient's care team in partnership with patient/family. Functional Goals and Timeframes: OT Goal #1: Patient will participate in cognitive assessment to determine further therapy and safetyneeds. OT Goal #1 Status: Ongoing OT Goal #2: Patient will complete toilet transfer and toileting with supervision. OT Goal #2 Status: Ongoing OT Goal #3: Patient will complete bathing and dressing tasks with supervision. OT Goal #3 Status: Ongoing OT Goal #4: Patient will consistently maintain level of alertness x20 minutes to participate in occupational therapy session. OT Goal #4 Status: Progressing Progress: Progressing toward goals Plan Patient agrees with the plan of care and goals. Treatment Plan: OT Frequency: 5 times per week OT Amount: 1 visit per day OT Inpatient Duration : Until goals are met or hospital discharge Plan: Continue with current plan OT Plan Comments: Further vision assessment (appears to have double vision in periphery, functional cognitive tasks; activities of daily living Treatment interventions may include: Treatment Interventions: Therapeutic functional activity, Neuromuscular re- education, Self-care/homemanagement, Cognitive skills training Time Spent with Patient Therapeutic Interventions Home Management Training (min): 35 min Time Tracking Total Timed Units (min): 35 min Total Treatment Time (min): 35 min Marie Anaya O.T. Gabrielle Cote RSanjuanitaNSanjuanita - 01/15/2022 12:22 PM CDT Seeing in follow-up for Brain Rehabilitation Consult Service. I reviewed the notes and discussed with the rehab team during morning rounds. Rehab team recommends ongoing inpatient rehab. Patient meets criteria for admission to inpatient rehabilitation. I discussed rehabilitation plans/options with Ms. Cedillo. I explained the routines and requirements on the inpatient rehab unit ([facility]). She would like to pursue inpatient rehab at [place]. Reviewed insurance disclosure information Acute inpatient rehabilitation admission planned for 01/17/2022 pending insurance approval. Erika Alicea M.S., [facility]-PROGRAM ARCHITECT - 01/15/2022 10:20 AM CDT Speech Language Pathology Communication/Cognitive Treatment- Acute Care Session Type: Treatment Length of session: 22 minutes SUBJECTIVE Ms. Cedillo was seen for therapy while seated upright in recliner chair. She participated fully withsome redirection required. General Family/Caregiver Present: No Arousal/Alertness: Appropriate responses to stimuli Behavior: Alert, Cooperative, Distractible, Pleasant mood Pain No overt pain noted OBJECTIVE Objective Session Data Auditory Comprehension Yes/No Questions: Within Normal Limits (WNL) Commands: Impaired One Step Basic Commands: 100% Two Step Basic Commands: 75% Conversation Comprehension: Moderate Reading Comprehension Reading Status: Impaired Scanning/Trackin% accuracy Words: 100% accuracy Sentence: 61-80% accuracy Interfering Components: Attention Effective Techniques: Prescription glasses/contact lenses Verbal Expression Primary Mode of Expression: Verbal Primary Language: Maldivian Open Ended Questions: 61-80% accuracy Conversation: Impaired Impaired Conversation: Mild Cognition Overall Cognitive Status: Impaired Attention: Impaired Sustained: Moderate Alternating: Moderate Memory: Impaired Problem Solving: Impaired Pragmatics Affect: Within Normal Limits (WNL) Eye Contact: Within Normal Limits (WNL) Humor: Within Normal Limits (WNL) Topic Maintenance: Moderate Turn Taking: Moderate Assessment Ms. Cedillo continues to demonstrate moderate cognitive communication impairment with some evidence of aphasia as well; however, this appears to be improving and her primary deficit seem to lie in attention. She follows 75% of two step auditory commands accurately, becoming distracted leading to an error with the fourth. She is also 75% accurate with reading comprehension of sentence length information. I do not notice right inattention with this task today. In informal conversation and semi structured conversation tasks, patient demonstrates moderate difficulty with topic maintenance and verbal organization. Awareness of deficits is reduced although she does recognize that she is performing differ ently. She does become tearful at end of session and we discuss changes and emotional lability following a brain injury. Contact Monitoring: Clinician was wearing the following PPE for the duration of today's session(s): surgical mask and eye protection Goals: Auditory Comprehension Short Term Goal 1 Auditory Comprehension Short Term Goal 1: Patient will follow verbal commands of increasing length with 1 repetition with 90% accuracy. 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 - 01/15/2022 7:01 AM CDT [id number] DelvinamberMia [birth year] 51F Glioma Resection [id number] - S/p left temporoparietal crani on 01/10 for resection of Grade 3 astrocytoma, IDH wildtype, MGMT unmethylated. Preop symptoms: lethargic, not oriented, significant pain, nausea, word-finding difficulties, likely seizure. [place] [facility] After surgery, she improved temporarily, but then developed severe fatigue, headaches, vision/speech/taste/smell changes this past weekend. More recent imaging shows increased contrast enhancement, mass effect, and midline shift. On admission, she could not answer questions or follow commands. She had severe nausea, frequentepisodes of emesis, complained of significant headache and pain, but was moving all extremities symmetrically. For the first day after surgery, she was unable to answer questions or follow commands. Bythe evening of POD#1, she was able to say her name and follow simple commands. - She continues to have vision symptoms that are difficult for her to describe. She seems to have a right-sided visual field cut, blurriness of her right eye, and possibly slight diplopia. Wearing an eye patch and using only one eye seems to improve her symptoms. - She has emotional lability and frustration with her cognitive impairments. She struggles with communication and this can lead to tearfulness. Her mother and sister visited yesterday, which helped herthroughout the day. - She is an inpatient rehab candidate; PMR will evaluate her today. She worked with PT/OT/PROGRAM ARCHITECT yesterday. 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 - Exam: aaox3, right eye lateral visual field cut, CN 3-12 grossly intact, full strength with intactsensation, no pronator drift. Incision clean/dry/intact. - Plan: transfer to inpatient rehab if they accept her and insurance approves, decadron taper, Keppra 1 g BID, diet/mobilization as tolerated, pain management as needed (Toradol PRN is available). For questions or concerns, please page the Dr. Ivey service at [phone] London Fortune PSanjuanitaT. - 01/14/2022 2:55 PM CDT Physical Therapy Acute Hospital Inpatient Treatment SUBJECTIVE Patient's Name: Mia Richardson Medical Diagnosis: 1. Tumor Brain (HCC) 2. Malignant Neoplasm Of Brain (HCC) 3. Change Mental Status 4. Abnormal Gait Non Orthopedic 5. Concern Patient Cognition Function Patient Comments: Patient up at bedside chair with family present. Lights all off in room with patient eyes closed due to headache. Precautions Other Precautions: fall, impulsive safety awareness, vision, headaches, light sensitivity OBJECTIVE Pain: Vitals: Not indicated at this time Sit to Stand Transfers # of Assistants: 1 Transfer Surface: Bed Transfer Equipment: Gait belt Level of Assistance: Minimal assistance Assessment/Delivery: Assessed, Instructed, Educated, Therapist assisted, Facilitated Stand to Sit Transfers # of Assistants: 1 Transfer Surface: Chair Transfer Equipment: Gait belt Level of Assistance: Minimal assistance, Hand held assistance Assessment/Delivery: Assessed, Therapist assisted, Facilitated, Instructed Bed, Chair, Wheelchair Transfers # of Assistants: 1 Transfer Surface: Chair Transfer Approach: To and from, Ambulating Transfer Equipment: No device Level of Assistance: Minimal assistance, Hand held assistance Gait Assessment/Training Distance (m): 5 m Surface: Even, Smooth/hard Device: Gait belt # of Assistants: 1 Level of Assistance: Moderate assistance, Hand hold assistance Quality/Pattern: Antalgic, Decreased heel strike, Decreased toe off Assessment of Gait: hunched posture Training/Intervention: focus on steps and trying to open her eyes. Response: pain and fatigue Seated Exercise - Side Addressed: Bilateral Sitting Surface: Chair Seated Exercise: Ankle pumps, Marching, Long arc quads Exercise Mode: Active motion against gravity Sets/Repetitions: 1x10 Patient/Family Training: At the end of today's therapy session patient was left seated in bedside chair with an appropriate call light within reach. Patient's needs and questions addressed during today's session. Contact monitoring: PPE used during therapy: Therapist was wearing the following PPE throughout entire session: surgicalmask and eye protection Assessment Patient up at bedside chair with all lights turned off in room due to headache and light sensitivity. Patient reports fatigue. Walking 20 feet overall with hand hold assistance and limited by headache and fatigue and keeping her eyes closed throughout session. Barriers to a safe discharge home: Barriers to Discharge Home: Current functional status, Safety concerns Comorbid Conditions: Cancer Discharge Therapy Needs - PT: Ongoing skilled physical therapy Level of Care Needed - PT: Physical assistance needed, Cognitive assistance needed Skilled therapy can include physical therapy provided by home health, outpatient clinic, or a post-acute facility. The location of these services is determined by the patient's care team in partnershipwith patient/family. Functional Goals and Timeframes: PT Goal #1: patient will be independent with bed mobility, bed flat, no rail PT Goal #1 Status: Progressing PT Goal #2 Status: Progressing PT Goal #3: patient will be supervised to ambulate x 150 feet, no AD PT Goal #3 Status: Slowly progressing PT Goal #4: patient will ascend/descend flight of stairs with rail Progress: Progressing toward goals Plan Patient agrees with the plan of care and goals. Treatment Plan: PT Frequency: 5 times per week PT Inpatient Duration : Until goals are met or hospital discharge Plan: Continue with current plan PT Plan Comments: See for progressive gait and transfers as tolerated. Treatment interventions may include: Treatment/Interventions: Therapeutic exercise, Therapeutic functional activity, Neuromuscular re-education, Gait training Time Spent with Patient Therapeutic Interventions Therapeutic Activity (min): 15 min Therapeutic Exercise (min): 10 min Time Tracking Total Timed Units (min): 25 min Total Treatment Time (min): 25 min London Fortune P.T. Rhona Salinas O.T. - 01/14/2022 11:50 AM CDT Occupational Therapy [facility] Inpatient Progress Note SUBJECTIVE Patient's Name: Mia Richardson Reason for Referral: OT eval and treat- brain consult Medical Diagnosis: 1. Tumor Brain (HCC) 2. Malignant Neoplasm Of Brain (HCC) 3. Change Mental Status 4. Abnormal Gait Non Orthopedic 5. 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 Precautions Other Precautions: fall, impulsive safety awareness, vision OBJECTIVE Pain: no pain reported. Vitals:Not indicated at this time Cognition Cognitive assessment method: Therapist observations Arousal/Alertness: Delayed responses to stimuli Attention: Impairments noted Sustained: Moderate Divided: Severe Attention Comments: perseverated on tasks during shower,cues to continue to next step. Orientation: Disoriented to time Following Commands: Inconsistently following commands, One Step Commands One Step Commands: Follows one step commands with increased time, Follows one step commands with repetition Following Commands Comments: stood from chair prior to OT completing set up for shower setting off chair alarm even though she was instructed to remain seated. Memory: Impairments noted Delayed Memory: Severe Problem Solving: Impairments noted Safety/Judgment: Impairments noted Self-monitoring/Self-correct Consistently: Moderate Insight/Awareness of Deficits: Moderate Safety/Judgment Comments: supervise for safety in the hospital setting. Cognition Comments: pt reporting some vision changes with seeing colors and double vision. Bathing Bathing Location: Seated in shower Bathing Delivery: Assessed, Instructed, Educated, Therapist Assisted, Facilitated Bathing Adaptive Equipment: Hand-held shower head Body Parts Included in Task: Chest, Right arm, Left arm, Abdomen,Perineal area, Buttocks, Right upper leg, Left upper leg, Right lower leg, Left lower leg Bathing Level of Assistance: Supervision/Set-up Bathing Comments: pt requires cues for safety throughout shower process. cues needed for sequencing and to advance to next step when appropropriate. UE Dressing UE Dressing Delivery: Assessed, Instructed, Therapist Assisted, Facilitated UE Dressing Level of Assistance: Minimal assistance UE Dressing Location: Other (Comment) (seated shower commode chair) UE Dressing Comments: don new hospital gown following shower. LE Dressing LE Dressing Location: (shower commode chair) LE Dressing Delivery: Assessed, Instructed, Educated, Therapist Assisted, Facilitated LE Dressing Items Included: Socks LE Dressing Level of Assistance: Minimal assistance LE Dressing Comments: able to remove slipper socks, therapist assisting with donning following showering for safety. ADL Comments ADL Comments: supervise for safety with all self cares. Sit to Stand Transfers # of Assistants: 1 Transfer Surface: Bed Transfer Equipment: Gait belt Level of Assistance: Contact guard assistance Assessment/Delivery: Assessed, Instructed, Educated, Therapist assisted, Facilitated Stand to Sit Transfers # of Assistants: 1 Transfer Surface: Chair Transfer Equipment: Gait belt Level of Assistance: Contact guard assistance Assessment/Delivery: Assessed, Therapist assisted, Facilitated, Instructed Bed, Chair, Wheelchair Transfers # of Assistants: 1 Transfer Surface: Chair Transfer Approach: To and from, Ambulating Level of Assistance: Contact guard assistance Comments: tends to want to hold onto furniture door frame for security when ambulating. Bath Transfers # of Assistants: 1 Transfer Approach: To and from, Ambulating Level of Assistance: Contact guard assistance Assessment/Delivery: Assessed, Instructed, Therapist assisted, Educated, Facilitated Patient/Family Education: safety during self cares. At the end of today's therapy session patient was left seated in bedside chair with the chair alarm on with an appropriate call light within reach. Patient's needs and questions addressed during today's session. Contact monitoring: PPE used during therapy: Therapist was wearing the following PPE throughout entire session: surgicalmask and eye protection Patient was wearing a mask during therapy session: no Assessment The patient is far from her baseline level of independent self care function. She will benefit from ongoing occupational therapy to gain skills in safe independent self cares. From the Occupational Therapist's perspective, the patient is an inpatient rehabilitation candidate due to requiring ongoing physical assistance with skilled need for activities of daily living and/or cognition. Will formally discuss at next PMR team rounds and communicate with primary service angel leroy. Barriers to Discharge Home: Current functional status, Safety concerns Comorbid Conditions: Cancer Personal Factors: Visual impairment, Safety awareness, Communication deficit, Balance impairment Discharge Therapy Needs - OT: Ongoing skilled occupational therapy Level of Care Needed - OT: Assistance with toilet/shower transfers, Assistance with medication set up/administration, Assistance with showering/bathing, Assistance with dressing, Assistance with meal preparation, Assistance with director financial services, Assistance with transportation, Assistance with hous ekeeping, Assistance with shopping, Cognitive assistance needed Skilled therapy can include occupational therapy provided by home health, outpatient clinic, or a post-acute facility. The location of these services is determined by the patient's care team in partnership with patient/family. Functional Goals and Timeframes: OT Goal #1: Patient will participate in cognitive assessment to determine further therapy and safetyneeds. OT Goal #1 Status: Ongoing OT Goal #2: Patient will complete toilet transfer and toileting with supervision. OT Goal #2 Status: Ongoing OT Goal #3: Patient will complete bathing and dressing tasks with supervision. OT Goal #3 Status: Ongoing OT Goal #4: Patient will consistently maintain level of alertness x20 minutes to participate in occupational therapy session. OT Goal #4 Status: Progressing Progress: Progressing toward goals Plan Patient agrees with the plan of care and goals. Treatment Plan: OT Frequency: 5 times per week OT Amount: 1 visit per day OT Inpatient Duration : Until goals are met or hospital discharge Plan: Continue with current plan OT Plan Comments: Treatment: Cognitive assessment; activities of daily living Treatment interventions may include: Treatment Interventions: Therapeutic functional activity, Neuromuscular re- education, Self-care/homemanagement, Cognitive skills training Time Spent with Patient Therapeutic Interventions Home Management Training (min): 45 min Time Tracking Total Timed Units (min): 45 min Total Treatment Time (min): 45 min Rhona Salinas O.T. Madiha Castro M.D. - 01/14/2022 7:21 AM CDT 9-171 Mia Cedillo [birth year] 51F Glioma Resection [id number] - POD#4 s/p left temporoparietal crani for resection of Grade 3 astrocytoma, IDH wildtype, MGMT unmethylated. Preop symptoms: lethargic, not oriented, significant pain, nausea, word-finding difficulties, likely seizure. [place] [facility] [place] surgery, she improved temporarily, but then developed severe fatigue, headaches, vision/speech/taste/smell changes this past weekend. More recent imaging shows increased contrast enhancement, mass effect, and midline shift. On admission, she could not answer questions or follow commands. She had severe nausea, frequent episodes of emesis, complained of significant headache and pain, but was moving all extremities symmetrically. For the first day after surgery, she was unable to answer questions or follow commands. By the evening of POD#1, she was able to say her name and follow simple commands. - Yesterday, she reported visual symptoms in the afternoon. It was difficult to assess if these werenew or if she was just finally able to communicate well enough to describe them. She initially described vision loss and color spots in her right eye. The description of her vision changed significantly throughout the afternoon. Sometimes, she would describe red and green flashes in her right eye. Shealso described orange-red fading color line at the bottom of her vision. She describes blurry visionin her right eye and seems to have a right-sided visual field cut in the right eye. She only experiences color changes after she manually presses on her eye. Since it was difficult to accurately assessthe vision changes, I ordered a head CT/CTA and both were unremarkable. I gave an extra dose of Keppra in the event they were related to new seizure activity. This morning, she still describes right-sided visual field cut. - Both PT and OT comment that she was better able to participate in therapy yesterday. They still note significant cognitive impairments (decreased attention, impaired memory, poor insight) However, she became emotionally labile overnight and had episodes of intense crying and sadness, which made it di fficult for nursing to do neurologic exams overnight. This morning, she was more calm and able to participate in morning rounds. - Pain was only 1-2 overnight on Tylenol and Toradol. Tolerating oral intake, voiding spontaneously,mobilizing with assistance. - Exam: aaox3, right eye lateral visual field cut and ???blurriness?? in right eye vision, CN 3-12 grossly intact, full strength with intact sensation, no pronator drift. Incision clean/dry/intact. - Na: 134-136 - Plan: PT/OT/PROGRAM ARCHITECT, decadron taper, Keppra 1 g BID, diet/mobilization as tolerated, pain management as needed (Toradol PRN is available). For questions or concerns, please page the Dr. Ivey service at [phone] Marie Caballero O.T. - 01/13/2022 12:42 PM CDT Occupational Therapy [facility] Inpatient Progress Note SUBJECTIVE Patient's Name: Mia Richardson Reason for Referral: OT eval and treat- brain consult Medical Diagnosis: 1. Tumor Brain (HCC) 2. Malignant Neoplasm Of Brain (HCC) 3. Change Mental Status 4. Abnormal Gait Non Orthopedic History of Present Illness: s/p left temporoparietal crani for resection of Grade 3 astrocytoma Onset Date: 01/09/22 Patient/Caregiver Goals: Patient would like to feel better and go home. Precautions Other Precautions: fall OBJECTIVE Pain: Patient reporting 3/10 headache pain in supine that worsened to 4-5/10 when seated edge of bed. Patient willing to participate and received Tylenol during session. Patient covering eyes with hands toward end of session. Cognition Cognitive assessment method: Cognitive screening results, Therapist observations Arousal/Alertness: Appropriate responses to stimuli Attention: Impairments noted Sustained: Moderate Divided: Severe Alternating: Profound Attention Comments: Patient frequently perseverates on one task or thought and has a difficult time switching tasks. For example, perseverating on the date when asked to state the year or perseveratingon animals when asked to draw a clock and then aniket multiple clocks instead of putting the numbers on the clock in response to therapist direction. Orientation: Disoriented to time Following Commands: One Step Commands One Step Commands: Follows one step commands with increased time, Follows one step commands with repetition Following Commands Comments: Requires repetition and re-direction or cessation of task altogether due to perseveration. Memory: Impairments noted Short-term Memory: Mild Delayed Memory: Severe Memory Comments: Able to give a little better history today, but still perseverating and getting stuck on certain details with continued inconsistencies noted. Patient able to accurately state name andaddress for 3 trials, but had no recall of name and address after delay even when prompted with cues. Problem Solving: Impairments noted Executive Functioning: Impairments noted Flexibility of Thought: Profound Organization: Profound Self-monitoring/Self-correct Consistently: Moderate Insight/Awareness of Deficits: Moderate Cognition Comments: Patient with increased level of alertness, able to sit on edge of bed and keep eyes open majority of session. Patient has some awareness of deficits, but not able to fully comprehend how they will impact everyday function. Patient perseverates in speech and in activities and has difficulty moving from one thought or task to another. Patient also with impaired memory. Cognitive Intervention Comments: Discussed need for brain breaks and limiting screen time while brain heals. Patient states that she is unable to watch TV and tried to explain why she is experiencing this. LE Dressing LE Dressing Location: Seated on edge of bed LE Dressing Delivery: Facilitated LE Dressing Level of Assistance: Supervision/Set-up LE Dressing Comments: Patient able to don/doff bilateral slipper socks seated edge of bed. Bed Mobility - Supine to Sit # of Assistants: 1 Level of Assistance: Supervision/Set-up Device: Head of bed elevated, Bed rail Cuing: Verbal, Tactile Bed Mobility - Sit to Supine # of Assistants: 1 Level of Assistance: Supervision/Set-up Device: Bed rail, Head of bed elevated Cuing: Verbal, Tactile Comments: Patient able to lift legs in and out of bed. Patient able to scoot up in bed in long sitting position. Mini-Addenbrooke's Cognitive Examination The Mini-Addenbrooke's Cognitive Examination (M-LISET) is a cognitive screening tool that is a shortened version of the Addenbrook's Cognitive Examination (LISET- III). It is a screening tool sensitive to detect the early stages of dementia or mild cognitive impairment. The M-LISET assesses orientation, memory, animal fluency and clock drawing with a maximum score of 30. The M-LISET produces two cut-offs scores: a score between 21-25 represents possible mild cognitive impairment, and a score below 21 represents the possibility of dementia and the need for further assessment. M-LISET Malagasy Version A Score: 10/30 Domain scores: Attention: 2/4 Memory: 14 Fluency: 0/7 Visuospatial: 1/5 Addenbrooke's Cognitive Examination has undergone limited research related to its use among patientswith traumatic and acquired brain injuries. This screen was selected to guide the therapist's clinical reasoning, but its findings need to be reviewed cautiously as it has not undergone an intensive battery to identify its validity or sensitivity with this patient population. Patient oriented to month and day of week, but started perseverating on dates and could not shift thoughts to state a year. Therapist passively oriented patient to date and year. Patient did well with immediate recall with 100% accuracy all 3 trials, but had no recall of name and address after delay. P atient only able to name 4 animals (tapir, lemur, russell, indigo bunting). When asked to draw a clock, patient started to draw an animal. Able to easily re- direct patient who then proceeded to draw 6 clocks with hands set to various times. Patient did not add numbers despite repeated cues to do so, nor could she put hands set to the correct time. Patient/Family Education: Provided education on brain rehab, brain breaks, and avoiding overstimulating the brain by limiting screen time. Also, discussed cognitive impairments. At the end of today's therapy session patient was left with the bed alarm on with an appropriate call light within reach. Patient's needs and questions addressed during today's session. Contact monitoring: PPE used during therapy: Therapist was wearing the following PPE throughout entire session: surgicalmask and eye protection Patient was wearing a mask during therapy session: no Assessment Patient was seen for occupational therapy treatment. Patient more alert and participatory compared to previous day. Patient with eyes open majority of session, though complaining more of a headache towards end of session. Patient presents with significant cognitive impairments, such as decreased attention, impaired memory, impaired executive function, and poor safety awareness/insight. Patient requires cognitive assistance at this time for safety. Patient tolerated sitting edge of bed x20 minutes toengage in functional and cognitive tasks. Patient would benefit from continued skilled occupational therapy to address these deficits and maximize safety and independence with activities of daily living. From the Occupational Therapist's perspective, the patient needs further assessment. Patient is withemerging skills, but will need to demonstrate consistent participation level and tolerance in order to be a candidate for inpatient rehabilitation. Will formally discuss at next PMR team rounds and comm unicate with primary service accordingly. Barriers to Discharge Home: Current functional status, Safety concerns Comorbid Conditions: Cancer Discharge Therapy Needs - OT: Ongoing skilled occupational therapy Level of Care Needed - OT: Assistance with toilet/shower transfers, Assistance with medication set up/administration, Assistance with showering/bathing, Assistance with dressing, Assistance with meal preparation, Assistance with director financial services, Assistance with transportation, Assistance with hous ekeeping, Assistance with shopping, Cognitive assistance needed Skilled therapy can include occupational therapy provided by home health, outpatient clinic, or a post-acute facility. The location of these services is determined by the patient's care team in partnership with patient/family. Functional Goals and Timeframes: OT Goal #1: Patient will participate in cognitive assessment to determine further therapy and safetyneeds. OT Goal #1 Status: Ongoing OT Goal #2: Patient will complete toilet transfer and toileting with supervision. OT Goal #2 Status: Ongoing OT Goal #3: Patient will complete bathing and dressing tasks with supervision. OT Goal #3 Status: Ongoing OT Goal #4: Patient will consistently maintain level of alertness x20 minutes to participate in occupational therapy session. OT Goal #4 Status: Ongoing Progress: Progressing toward goals Plan Patient agrees with the plan of care and goals. Treatment Plan: OT Frequency: 5 times per week OT Amount: 1 visit per day OT Inpatient Duration : Until goals are met or hospital discharge Plan: Continue with current plan OT Plan Comments: Treatment: Cognitive assessment; activities of daily living Treatment interventions may include: Treatment Interventions: Therapeutic functional activity, Neuromuscular re- education, Self-care/homemanagement, Cognitive skills training Time Spent with Patient Therapeutic Interventions Cognitive Skills Training, Initial 15 min: 15 min Therapeutic Activity (min): 15 min Time Tracking Total Timed Units (min): 30 min Total Treatment Time (min): 30 min Marie Caballero O.T. Kylie Roca P.T.A. - 01/13/2022 12:02 PM CDT Physical Therapy [facility] Inpatient Treatment SUBJECTIVE Patient's Name: Mia Arias Nguyen Reason for Referral: PT eval and treat- brain Medical Diagnosis: 1. Tumor Brain (HCC) 2. Malignant Neoplasm Of Brain (HCC) 3. Change Mental Status 4. Abnormal Gait Non Orthopedic History of Present Illness: s/p left temporoparietal crani for resection of Grade 3 astrocytoma Precautions Other Precautions: fall OBJECTIVE Pain: 12/02 headache Vitals: Not indicated at this time Bed Mobility - Supine to Sit # of Assistants: 1 Level of Assistance: Minimal assistance Device: Bed rail, Head of bed elevated Cuing: Verbal, Tactile Comments: assistance with LE Bed Mobility - Sit to Supine # of Assistants: 1 Level of Assistance: Minimal assistance Device: Bed rail, Head of bed elevated Cuing: Verbal, Tactile Comments: light assistance lifting LE Sit to Stand Transfers # of Assistants: 1 Transfer Surface: Bed Transfer Equipment: Gait belt Level of Assistance: Minimal assistance Assessment/Delivery: Assessed, Therapist assisted, Facilitated, Instructed Comments: performed 2 sit to stand transfers from bed Stand to Sit Transfers # of Assistants: 1 Transfer Surface: Bed Transfer Equipment: Gait belt Level of Assistance: Minimal assistance Assessment/Delivery: Assessed, Therapist assisted, Facilitated, Instructed Comments: cues to feel bed with back of legs and reach back prior to decent Balance Retraining Sitting: Static, Midline orientation (comment), Lateral leans, Anterior/posterior leans Static Standing Balance: Static standing, Midline orientation, Lateral weight shifts Static Standing Balance Comments: patient would occassionally use L UE for stabilization on bedrail or bedside table. Dynamic Standing Balance: Backwards walking, Side stepping Support Required: Minimal assistance Seated Exercise - Side Addressed: Bilateral Sitting Surface: Bed Seated Exercise: Ankle pumps, Marching, Long arc quads Exercise Mode: Active motion against gravity Sets/Repetitions: 1x10 Patient/Family Training: Education on taking brain breaks At the end of today's therapy session patient was left in bed with the bed alarm on with an appropriate call light within reach. Patient's needs and questions addressed during today's session. Contact monitoring: PPE used during therapy: Therapist was wearing the following PPE throughout entire session: surgicalmask, eye protection and gloves Patient was wearing a mask during therapy session: no Assessment Patient resting in bed on arrival, pleasant and agreeable to therapy session. She demonstrates improvement with bed mobility, progressing to minimal assistance, continues to use bed rail for assistance. She reports having a headache and difficulty with her vision. She states that she is unable to watch tv because she can not see properly enough. However, she is eager to do well and works hard. Focus today on sitting and standing balance. During standing balance, she would occasionally reach behind her to the bedrail for stability or over to the bedside table using 2 fingers with her L for light stability. She is functioning below baseline and will benefit from continued skilled physical therapy interventions for strength, balance, and functional mobility. From the Physical Therapist's perspective, the patient needs further assessment for candidacy for inpatient rehabilitation. Will formally discuss at next PMR team rounds and communicate with primary service accordingly. Barriers to a safe discharge home: level of assist Skilled therapy can include physical therapy provided by home health, outpatient clinic, or a post-acute facility. The location of these services is determined by the patient's care team in partnershipwith patient/family. Functional Goals and Timeframes: PT Goal #1: patient will be independent with bed mobility, bed flat, no rail PT Goal #1 Date: 01/19/22 PT Goal #1 Status: Progressing PT Goal #2: patient will be independent with sit <--> stand, no AD PT Goal #2 Date: 01/19/22 PT Goal #2 Status: Progressing PT Goal #3: patient will be supervised to ambulate x 150 feet, no AD PT Goal #3 Date: 01/19/22 PT Goal #3 Status: Slowly progressing PT Goal #4: patient will ascend/descend flight of stairs with rail PT Goal #4 Date: 01/19/22 PT Goal #4 Status: Slowly progressing Plan Patient agrees with the plan of care and goals. Treatment Plan: PT Frequency: 6 times per week Plan: Continue with current plan Treatment interventions may include: Treatment/Interventions: Therapeutic exercise, Therapeutic functional activity, Neuromuscular re-education, Gait training HEALTH CARE TECHNICIAN Visit Trackin Time Spent with Patient Therapeutic Interventions Neuromuscular Re-Education (min): 17 min Time Tracking Total Timed Units (min): 17 min Total Treatment Time (min): 17 min Kylie Roca P.T.ASanjuanita RDT Madiha Castro M.D. - 01/13/2022 7:18 AM CDT 7-281 Mia Cedillo [birth year] 51F Glioma Resection [id number] - POD#3 s/p left temporoparietal crani for resection of Grade 3 astrocytoma, IDH wildtype, MGMT unmethylated. Preop symptoms: lethargic, not oriented, significant pain, nausea, word-finding difficulties, likely seizure. [place] [facility] [place] After surgery, she improved temporarily, but then developed severe fatigue, headaches, vision/speech/taste/smell changes this past weekend. More recent imaging shows increased contrast enhancement, mass effect, and midline shift. On admission, she could not answer questions or follow commands. She had severe nausea, frequent episodes of emesis, complained of significant headache and pain, but was moving all extremities symmetrically. For the first day after surgery, she was unable to answer questions or follow commands. By the evening of POD#1, she was able to say her name and follow simple commands. - Her mentation has significantly improved. She is able to answer most questions appropriately, keeps her eyes open and interacts during the entire visit, and is able to complete a full neurologic examwith the exception of fully participating in strength exam. - Pain was only 2-4 overnight on Tylenol and Toradol. She will try to eat breakfast this morning. Voiding spontaneously. She mobilized to the bathroom with assistance. - Exam: oriented to self, [place], and [facility] CN 2-12 grossly intact, follows commands in all extremities with intact sensation, no pronator drift. Incision clean/dry/intact. - Na: last night was 137 (up from 130 in the afternoon), morning sodium still pending. - Plan: continue trending sodium, encourage oral intake, PT/OT/PROGRAM ARCHITECT, decadron taper, Keppra 1 g BID. For questions or concerns, please page the Dr. Ivey service at [phone] Madiha Castro M.D. - 01/12/2022 7:06 AM CDT 1-588 Mia Cedillo [birth year] 51F Glioma Resection [id number] - POD#2 s/p left temporoparietal crani for resection of Grade 3 astrocytoma, IDH wildtype, MGMT unmethylated. Preop symptoms: lethargic, not oriented, significant pain, nausea, word-finding difficulties, likely seizure. [place] and [place] 12[place] [facility] [place] After surgery, she improved temporarily, but then developed severe fatigue, headaches, vision/speech/taste/smell changes this past weekend. More recent imaging shows increased contrast enhancement, mass effect, and midline shift. On admission, she could not answer questions or follow commands. She had severe nausea, frequent episodes of emesis, complained of significant headache and pain, but was moving all extremities symmetrically. For the first day after surgery, she was unable to answer questions or follow commands. By the evening of POD#1, she was able to say her name and follow simple commands. - Appears more comfortable in bed than yesterday morning. Tolerating pills. UCI. Has not mobilized. - Exam: oriented to self only, improved verbal output and can say full sentences, follows simple commands in all extremities (wiggle toes, squeeze hands). Incision clean/dry/intact. - Na: yesterday morning was 140, last night was 135 and this morning is 133. - Plan: transfer to the floor, q6h Na and restrict fluids if necessary, advance diet, UCO, PT/OT/PROGRAM ARCHITECT, decadron taper, Keppra 1 g BID. Active Issues # Brain compression # Cerebral edema # Class 1 Obesity (BMI 30 to <35) ??? Malignant Neoplasm Of Brain (HCC) ??? Tumor Brain (HCC) For questions or concerns, please page the Dr. Ivey service at [phone] Erika Alicea M.S., CLAUDIA-PROGRAM ARCHITECT - 01/11/2022 2:25 PM CDT Attempted to see patient both and morning and afternoon for PROGRAM ARCHITECT evaluation but patient was unable toawaken and demonstrate alertness necessary for examination. Madiha Castro M.D. - 01/11/2022 7:10 AM CDT 8-748 Mia Cedillo [birth year] 51F Glioma Resection [id number] - POD#1 s/p left temporoparietal crani for resection of Grade 3 astrocytoma, IDH wildtype, MGMT unmethylated. Preop symptoms: lethargic, not oriented, significant pain, nausea, word-finding difficulties, likely seizure. Underwent biopsy and [place]otal [place] 12[place] [facility] [place] After surgery, she improved temporarily, but then developed severe fatigue, headaches, vision/speech/taste/smell changes this past weekend. More recent imaging shows increased contrast enhancement, mass effect, and midline shift. On admission, she could not answer questions or follow commands. She had severe nausea, frequent episodes of emesis, complained of significant headache and pain, but was moving all extremities symmetrically. - Unable to answer questions. She complained of pain overnight, but appears comfortable this morning. No PO intake due to poor mentation. UCI. Has not mobilized. - Exam: minimal verbal output (???no?? ), pupils equal and reactive, moves all extremities symmetrically without obvious focal deficit. - AM labs pending; last night???s Na was 139 at 8 pm (up from 138 at 2pm) - Plan: postop MRI completed yesterday, continue IV medications due to poor mentation, decadron taper, Keppra 1 g BID, IVF while unable to tolerate PO intake, mobilization as tolerated, UCI. ??? Malignant Neoplasm Of Brain (HCC) ??? Tumor Brain (HCC) Active Issues # Brain compression # Cerebral edema # Hyponatremia - monitor intake/output and recheck electrolytes # Class 1 Obesity (BMI 30 to <35) For questions or concerns, please page the Dr. Ivey service at [phone] RDT Amber Bailey Pharm.D., R.Ph. - 01/10/2022 10:23 AM CDT Pharmacist Progress Note 51 y.o. female admitted for left temporoparietal sterotactic craniotomy OBJECTIVE Home medications: ??? Held: None ??? Changed: Dexmethasone Prophylaxis: None ASSESSMENT / PLAN Pharmacotherapy Recommendations: 1. Heparin for DVT prophylaxis after OR 2. Steroid plan Amber Bailey PharmD, [facility] [id number] Madiha Castro M.D. - 01/10/2022 7:05 AM CDT 8-215 Mia Cedillo [birth year] 51F Glioma Resection [phone] - To OR today for left Grade 3 astrocytoma, IDH wildtype, MGMT unmethylated. Preop symptoms: lethargic, not oriented, significant pain, nausea, word-finding difficulties, likely seizure. [place] [facility] After surgery, she improved temporarily, but then developed severe fatigue, headaches, vision/speech/taste/smell changes this past weekend. More recent imagingshows increased contrast enhancement, mass effect, and midline shift. She had been due to see Dr. Salinas next week, but was evaluated sooner due to exam changes. - Last night, she appeared very uncomfortable. She had several bouts of emesis and reported significant headache and discomfort. She received Zofran and Compazine. Due to her poor exam, she was transferred to [facility] and given hypertonic saline. Most recent sodium: 130. Awaiting AM sodium results. - I spoke with her mother extensively last night and she signed the consent forms. - Appears more comfortable than last night, but is still unable to answer questions or report pain. When a provider asks her a question, she rolls over to the other side. - Exam: no verbal output, pupils equal and reactive, moves all extremities symmetrically without obvious focal deficit. - Plan: To OR today, continue IV medications for pain & nausea, continue decadron, continue Keppra. Active Issues # Brain compression # Cerebral edema # Hyponatremia - monitor intake/output and recheck electrolytes # Class 1 Obesity (BMI 30 to <35) ??? Malignant Neoplasm Of Brain (HCC) ??? Tumor Brain (HCC) For questions or concerns, please page the Dr. Ivey service at [phone] Rashida North Pharm.D., R.Ph. - 01/09/2022 5:24 PM CDT Images from the original note were not included. Admission Medication History Note Adherence issues: No concerns Medication list source: Family member Medication related information: She has not started temozolomide. Prior to Admission Medications Med List Status: Pharmacy Complete Set By: Rashida North Pharm.D., R.Ph. at 01/09/2022 5:24 PM Taking? Last Dose Informant Start Date End Date LT acetaminophen (Tylenol Extra Strength) 500 mg tablet 01/01/22 -- Take 1,000 mg by mouth 3 (three) times a day as needed for pain. dexAMETHasone (DECADRON) 4 mg tablet 01/09/22 02/02/22 Take 1 tablet (4 mg total) by mouth 2 (two) times a day for 48 doses. Take first dose with food inthe morning. Take second dose with food no later than 4 pm. levETIRAcetam (KEPPRA) 1,000 mg tablet 12/07/21 -- Take 1,000 mg by mouth 2 (two) times a day. 25/iron fum/folic/dha (-1 ORAL) -- -- Take 1 tablet by mouth daily. temozolomide (TEMODAR) 140 mg capsule 12/31/21 -- Take 140 mg by mouth daily. Notes: Has not started temozolomide (TEMODAR) 20 mg capsule 12/31/21 -- Take 20 mg by mouth daily. Notes: Has not started TURMERIC ORAL -- -- Take 1 capsule by mouth daily. VITAMIN B COMPLEX ORAL -- -- Take 1 tablet by mouth daily. documented in this encounter H&P Notes Madiha Castro M.D. - 01/10/2022 9:58 AM CDT INTERVAL HISTORY AND PHYSICAL PRE-PROCEDURE UPDATE H&P reviewed. The patient was examined and there are no significant changes to the H&P. Madiha Castro M.D. Source Note - Karthikeyan Cedeno M.D. - 01/03/2022 8:20 AM CDT SUBJECTIVE PRIMARY CARE PHYSICIAN: No primary care provider on file. REASON FOR CONSULT Mia Richardson is a 51 y.o. 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 HISTORY OF PRESENT ILLNESS - PMH is largely unremarkable except for brief course of treatment with HCTZ for HTN in the past. - 11/29/2021 presented to [facility] with intermittent word-finding difficulty. 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 She was also noted to have a lesion on her forehead suggestive of a fall and a seizure was suspected. She was started on Keppra. Reflecting backshe could not recall any additional symptoms prior to the suspected seizure event. - 11/30/2021 MRI brain demonstrated a multifocal T1 hypointense and T2 hyperintense lesion involving the left cerebellar hemisphere, left lateral temporal lobe, parietal lobe, left thalamus with additional extension into the left hippocampus. - CT C/A/P identified no additional lesions concerning for malignancy. - 12/03/2021 LP was negative for malignancy. - 12/05/2021 biopsy was completed by Dr. Dunlap. Pathology was consistent with ELECTRICAL PROSPECTING OBSERVER WHO grade 3 astrocytoma, IDH wildtype, MGMT unmethylated. - Post-operatively, she was treated with a short course of dexamethasone. Since completion of dexamethasone taper she had additional difficulty with language function. There have been no clear additional episodes concerning for seizures. Patient was subsequently evaluated by radiation oncology colleagues. Additional surgery was proposed, leading to referral to Dr. Salinas and visit with me today. Patient has since resumed dexamethasone again. She has had some improvement in her language dysfunction with this. She continues to have someheadache on her forehead and the back of her head. Anticonvulsant: Keppra 1000 mg BID. Corticosteroid: Dexamethasone 4 mg daily - today is day 3. KPS: 70 The following portions of the patient's history were reviewed and updated as appropriate: allergies,current medications, family history, medical history, social history, surgical history and problem list. REVIEW OF SYSTEMS REVIEW OF SYSTEMS OBJECTIVE There were no vitals taken for this visit. PHYSICAL EXAM Constitutional: Normal appearance. Normal weight. HEENT: Normocephalic. Mucous membranes are moist. Conjunctivae normal. Pulmonary: Respiratory effort is normal. No respiratory distress. Musculoskeletal: No swelling or deformity. Normal range of motion. Skin: Skin is warm and dry. Mental status: Alert and awake. Could state 01/03/2022 correctly. Knew the season & the day of the week. She could state she was in [place], in her home. She could name ring and tie, but not collar. She could follow one step command across midline, but not three step command. Repetition was relatively preserved (could repeat 'The cat always hid under the couch when the dogs were in the room'). Fluency was relatively preserved. She made paraphasic errors during conversation, particularly havingdifficulty stating numbers and dates. She switched O and R when spelling WORLD backwards. Had one error on serial 7s. She was able to register a three word list, but had 2/3 delayed recall. When given m ultiple choice options she selected the correct remaining word. Cranial nerves: Extraocular movements are intact. Normal facial strength. Normal head turn and shoulder shrug. Motor: No pronator drift. No orbiting. No motor deficit is evident within limitation of video assessment. Coordination: Finger to nose Testing normal. No axial or appendicular ataxia is evident. No tremor noted. Gait: Normal gait with normal stride length, foot clearance, and arm swing. LABORATORY DATA: No new labs to review. RADIOLOGICAL DATA: MRI brain dated 11/30/2021 reviewed. This demonstrates a multifocal T1 hypointense and T2 hyperintenselesion involving the left cerebellar hemisphere, left lateral temporal lobe, parietal lobe, left thalamus with additional extension into the left hippocampus. ASSESSMENT / PLAN # Astrocytoma Mia Richardson is a 51 y.o. 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 Patient presents for neuro-oncology evaluation. On neurologic exam patient has clear word finding difficulty. She could not name uncommon objects. She had trouble completing a three step command crossing midline. Repetition was relatively preserved.Fluency was relatively preserved. She also has short term memory & attention difficulty evidenced by errors in spelling backwards, serial sevens, and delayed recall. There is no motor deficit I am able to elicit during video assessment. Gait is normal. These findings appear improved compared to radiation oncology assessment and patient also notes improvement since steroid initiation. I recommended maintaining 4 mg dose at least until fMRI is completed. Patient has a planned visit with Dr. Salinas as well as fMRI and a tentative OR date for additional tumor resection. They expressed frustration regarding delays in care and would like to move forward with additional interventions as soon as possible. We discussed the plan that has been proposed for additional debulking of the tumor. She is very motivated to do this, mother asked whether planned appointments can be further expedited. We also discussed importance of proceeding with RT+TMZ as soon as possible afterwards. We briefly talked about clinical trials. It is unclear for which studies patient would be eligible since we do notknow the IDH status of the tumor by sequencing and additional molecular analysis may well classify this as a glioblastoma rather than ELECTRICAL PROSPECTING OBSERVER WHO grade 3 astrocytoma. We will need to discuss further as information becomes available. For the moment, plan would be for patient to receive RT+TMZ closer to home. Family also asked multiple questions regarding interventions such as ketogenic diet, use of antioxidants, and other treatment modalities. We will schedule consultation with my colleague Dr. Allen particularly to discuss the ketogenic diet question so appropriate monitoring can be implemented if thisis pursued. I did counseling services manager against use of antioxidants during radiation therapy. We will tentatively plan follow up in our clinic after additional surgery, preferably in person, to discuss further care. This is subject to change pending fMRI and neurosurgery consultation. ADDENDUM: After discussion with Dr. Salinas, we will increase dexamethasone to 4 mg BID through 01/09.We will then decrease to 4 mg daily. documented in this encounter Consult Notes Michael De Los Santos M.D., Ph.D. - 01/15/2022 1:35 PM CDTAssociated Order(s): IP CONSULT TO PHYSICAL MEDICINE & REHABILITATION SUBJECTIVE Reason for Consult Consults Reason for Consult: Generose 4 candidate? History of Present Illness Ms. Cedillo is a very pleasant 51-year-old, [id number] woman with a medical history significant only for hypertension and obesity (BMI 31.1) who was enjoying her normal state of health until about a month ago (November 29, 2021) when she had the onset of intermittent difficulty finding her words. When she presented to the [place] [facility], she was noted to have bruising on her forehead, and a seizure was suspected. She was begun on Keppra, and MRI the following day (images which I viewed in QREADS) revealed a multifocal T1 hypointensive and T2 hyperintensive mass involving theleft cerebellum, temporal lobe, parietal lobe, thalamus, and hippocampus. She proceeded to undergo a biopsy at [facility] on December 05 with pathology consistent with a WHO grade 3astrocytoma, wild type, and MGMT unmethylated. Following her biopsy she has continued to have difficulty with word finding and ultimately underwent a left temporoparietal stereotactic craniotomy for resection of the tumor which on postoperative MRI imaging appears to be complete. Ms. Cedillo was able to begin participating in an wqh-gyo-[id number] therapy program. She has done well but continues to have significant rehabilitation goals. At the time of my visit, Ms. Cedillo is sitting up in a chair. She proves to be a pleasant, cooperative historian, albeit one that is limited by aphasia of varying severity. Past medical/surgical history as above. REVIEW OF SYSTEMS As I noted above. In addition, I performed a systems review. HEENT: Ms. Cedillo denies a headache or any difficulty swallowing. Her description is hard to follow, but it appears that she has had varying amounts of right-sided visual impairment which has improved significantly over the last few days. Cardiovascular/Respiratory: No complaints. Extremities: No complaints of joint or limb pain. GI: No concerns. : No concerns. Neurologic: Aphasia is somewhat limiting, but Ms. Cedillo is clear that she is improving but is still weak on the right side and that she has to be careful when I walk. She feels her sensation is decreased on the right, complains of fatigue, and that she is aware of her difficulty with language. SOCIAL HISTORY Ms. Cedillo tells me that she lives in a home. She has difficulty expressing the situation fully, but I believe it is outside of [place] and that she would have to ascend a flight of stairs to get to her main living area. She does appear to have some family support, but I was unable to get the details. OBJECTIVE Temperature: [36.6 ??C-37.8 ??C] 36.6 ??C Resp Rate: [14-16] 14 Blood Pressure: (119-122)/(72-76) 119/72 SpO2: [93 %-99 %] 93 % Physical Exam General: Pleasant, cheerful, heavyset woman looking younger than her stated age, in no acute distress. HEENT: Normocephalic, without trauma with the exception of sequelae of her recent craniotomy. Facies is symmetric. Extremities: Upper and lower extremities are obese, symmetric, with full active functional range of motion. Skin: I see no signs of erythema, warmth, skin breakdown on exposed distal limbs. Neurological Examination: General: Pleasant, attentive, clearly limited by her aphasia but fully cooperative. Language: Ms. Cedillo was able to answer my simple questions with near complete accuracy, although she occasionally went off on tangents with responses that were unrelated to the question or the command. She exhibited episodes of what either could be apraxia or a misunderstanding (for lift your right hand, she lifted her right leg). She was able to repeat a short phrase, name an object, but had difficulty with its components. Clearly, there were episodes of circumlocution, when she was able to answer my question adequately. Given this basis, I proceeded to attempt a formal [facility] mental status examination and obtained the following responses: Orientation--she is able to tell me the date, themonth, her age, date of , and her address. Information--she was able to name [employer] as the current president but was unable to name the first one (even with choices) and gave her age as 32 rather than 51. Given effects of aphasia, I held off on further attempts. Speech: Grossly intact, fully understandable. Muscle Bulk and Tone: Upper and lower extremities 0/0. Coordination: Birwhb-jl-sdww was -1/-1. Satellite maneuver showed the left hand was minimally faster in revolving around the right. Cranial Nerves II through XII: Extraocular movements were smooth and intact. Visual field was impaired on the right, but this was difficult to assess fully given that when I repeatedly asked her if she could see my fingers, she referred to colors and it being paler and then being more washed out on the right than on the left. Appreciation of light touch in face was intact. Tongue appears to be tethered on midline to slightly to the right. Appreciation of light touch in face was intact. Muscle strength: Mild decrease throughout the right side, trace/zero in both the upper and lower extremities. Sensation: Intact to light touch and double simultaneous tactile stimulation Gait, Station, and Balance: I did not walk her, but PT notes significant improvement in her gait andthat she was able to walk with physical assistance for distances of roughly 60 meters today. Diagnostics I reviewed the imaging studies and agree with the interpretation as recorded. I reviewed the pertinent laboratory and diagnostic data. ASSESSMENT / PLAN #1 Malignant Neoplasm Of Brain (HCC) #2 Tumor Brain (HCC) #3. Right hemiparesis #4. Aphasia #5. Altered mental status Ms. Cedillo is a very pleasant, 51-year-old woman now status post what appears to be complete resection of a left hemispheric tumor with a resulting mild right hemiparesis, aphasia, and probably some cognitive sequelae as well. She has been participating well in therapy and although she has made improvements, I, along with therapist, believe that she would benefit from a stay in the rehabilitation unit with a goal of an expeditious return home to the care of her family. I discussed this in general terms with the patient. She appeared to understand it and wished to proceed. We have applied for insurance approval and we will proceed once it has been obtained. Paulina Jiménez R.N. - 01/14/2022 12:15 PM CDTAssociated Order(s): IP CONSULT TO CARE MANAGEMENT Discharge Planning Assessment SUBJECTIVE Assessment Information Referral Source: Nurse Referral Name: Chandan Soler R.N. Referral Reason: Discharge Planning Primary Language: Maldivian Manager Garage Services Used: No Person(s) present during interview: Person(s) Present During Interview: patient History of Present Illness #1 Malignant Neoplasm Of Brain (HCC) #2 Tumor Brain (HCC) Social History Family / Household: Mom, Sister and son Patient's Home Environment: 2nd floor apartment, 1 flight of stairs without elevator access Finance/Insurance Primary insurance: [employer] Secondary insurance: N/A Does the patient have any financial concerns? no benefits: NA Advance Directives Legal Decision Maker: Self OBJECTIVE Baseline Functional Status Baseline Activities of Daily Living Mobility: Independent Dressing: Independent Feeding: Independent Bathing: Independent Grooming: Independent Toileting: Independent Behavior: Appropriate, Pleasant, Calm, Cooperative, Oriented Communication: Can write, Talks, Understands speaking, Understands Maldivian, Reads Shopping: Independent Transportation: Independent to drive Medication Management: Independent Housekeeping: Independent Meal Prep: Independent Managing Finances: Independent Assistive Devices: Eyeglasses Baseline Services/Resources Primary care clinic and provider: No primary care provider on file. Additional Resources: Discharge planning to be determined by medical course Anticipated Needs Functional Status: Housekeeping, Shopping, Mobility, Meal preparation, Medication set-up/administration, Transportation use (drive car, use taxi/bus), Managing finances Assistive Devices: Grab bars - wall, Grab bars - toilet, Tub/shower chair/bench Anticipated Modifications to the Patient's Home: None Transportation Needs: Support from family Does the patient need discharge transport arranged?: No Anticipated Discharge Destination: Home or Self Care ASSESSMENT / PLAN Assessment: The machine long goods helper met with Mia Richardson to discuss her current hospitalization and home going needs. The patient was unaccompanied. The patient was a reliable historian. The role of machine long goods helper was reviewed. The patient reviewed her prior level of care and support system. The patient receivessupport from her mother and extended family. The patient described her living environment as a apartment without elevator access with level entry. Housekeeping, grocery shopping, meal prep, and other household responsibilities have previously been completed by patient. machine long goods helper discussed the patient's potential needs at dismissal based ontheir home setting, previous needs and responsibilities, homebound status, and relevant assessments with the patient. The patient is yet to be determined be safe and supported to return home when medically ready, pending medical course. Support will be provided by Libby. The patient demonstrated understanding when discussing her home going plans and anticipated needs. machine long goods helper met with patient in hospital room. Patient in agreement to meet at this time. Patient sitting up in bedside chair. Patient alert, pleasant, eyes closed and engaged in conversation related to baseline activity/home environment and support. machine long goods helper and patient spoke of anticipated discharge when medically stable. Discussing vision impairments and anticipated support needed to ensure safety at discharge. Discussed early in recovery with unknown plan at this time. machine long goods helper/patient discussed care management will follow along and support patient/family with discharge plans when determined, pending medical course. We discussed different levels of care options that may meet her needs, provided for education purposes. Including inpatient rehab, SNF, home health and outpatient therapy. Patient reports prior to surgery she was independent. Without the use of assistive gait device and denies history of falls. Patient reports she is currently on leave from her employment. Patient reports she resides with her mom who is retired, also in household are her sister and her son. Indicating support in home setting, that may be available to provide 24/7 supervision and assistance. Patient reports their home is a 2nd floor apartment, without elevator access. Discussed possible needs at discharge and support in home setting. At this point it is unclear medical course and recommendations from PT/OT. Advised machine long goods helper will follow along during hospitalization and assist as needed. machine long goods helper reinforced if concerns or questions arise related to dismissal planning, to notify bedside nurse of request to speak with machine long goods helper for assistance. Patient verbalized understanding and agreement, denying any concerns or questions at this time. At this time, the care team has not identified any skilled post-hospital discharge care needs that require the assistance of the Care Management Team. Dismissal plan to be determined, pending medical course. After reviewing the patient's chart and meeting with the patient, the machine long goods helper deemed the LACE+/readmission questions were not necessary. The patient reports understanding that she will dismiss from the hospital when medically stable. Thefollowing potential barriers to dismissal have been identified: vision impairment, flight of stairs to enter home without elevator access, sufficient support in home setting. Plan: The patient agrees with the following plan. 1. Patient's anticipated discharge disposition is: TBD pending medical course 2. Transportation upon dismissal will be provided by family--to be determined. 3. machine long goods helper recommended a shower seat and grab bars. 4. machine long goods helper provided information regarding the dismissal process. 5. machine long goods helper placed or requested the following hospital-based consult orders and/or referrals:None. 6. machine long goods helper will continue to assess for homegoing needs with the interdisciplinary team. 7. machine long goods helper encouraged the patient to reach out with any questions/concerns. Signed by: Alberto Jiménez R.N. 01/14/2022 Emma Arora M.S., CCC-PROGRAM ARCHITECT - 01/14/2022 9:58 AM CDT Speech Language Pathology Communication/Cognitive Evaluation- Acute Care Session Type: Evaluation Length of session: 24 minutes SUBJECTIVE Referred By: [facility] Neurologic Surgery - [place] History: Ms. Cedillo is a right handed 51 y.o. female who was admitted to [facility] on 01/09/2022 left temporoparietal craniotomy for resection of grade 3 astrocytoma. Ms. Cedillo's medical history is well documented in the electronic medical record, please refer to admission notes for full history. Ms. Cedillo has not received prior Speech Pathology services. Speech Pathology consult was received for evaluation of cognitive communication. Prior Level of Functioning: Ms. Cedillo was seen in her room independently this morning. 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 She states that she has 3 children. It is difficult for to name or tell the ages of her children. General Arousal/Alertness: Appropriate responses to stimuli Behavior: Alert, Cooperative OBJECTIVE Objective Session Data Oral Motor Dentition: Adequate Labial Structure and Function: Within Normal Limits (WNL) Lingual Structure and Function: Within Normal Limits (WNL) Palatal Structure and Function: Within Normal Limits (WNL) Motor Speech Voice: Within Normal Limits (WNL) Resonance (SURVEY ASSOCIATE Function): Within Normal Limits (WNL) Articulation: Within Normal Limits (WNL) Intelligibility: Intelligible Auditory Comprehension Yes/No Questions: Within Normal Limits (WNL) Commands: Impaired One Step Basic Commands: 3/3 Two Step Basic Commands: 2/3 Multistep Basic Commands: 1/3 Conversation Comprehension: Moderate Reading Comprehension Reading Status: Impaired Interfering Components: Attention Effective Techniques: Prescription glasses/contact lenses Verbal Expression Primary Mode of Expression: Verbal Primary Language: Maldivian Generative Naming/Word Fluency: 1-20% accuracy Open Ended Questions: 21-40% accuracy Conversation: Impaired Impaired Conversation: Moderate Written Expression Dominant Hand: Right Written Expression: Impaired Legibility: Mild Cognition Overall Cognitive Status: Impaired Attention: Impaired Sustained: Moderate Problem Solving: Impaired Pragmatics Affect: Mild Eye Contact: Severe Humor: Mild Assessment Ms. Cedillo is presenting with moderate aphasia impacting comprehension and expression. Reading wasnot assessed given sensitivity to opening her eyes and to light. Writing was legible, but revealingright inattention, and she was able to generate a short sentence. She is also demonstrating moderate non aphasic cognitive communication deficits. She is currently presenting below baseline level of functioning and will benefit from skilled speechpathology services throughout inpatient stay and at the next level of care. Contact Monitoring: Clinician was wearing the following PPE for the duration of today's session(s): surgical mask Goals: Auditory Comprehension Short Term Goal 1 Auditory Comprehension Short Term Goal 1: Patient will follow verbal commands of increasing length with 1 repetition with 90% accuracy. Auditory Comprehension Short Term Goal 1 Progress Toward Goal: Progress toward goal completion: continue on target Verbal Expression Short Term Goal 1 Verbal Expression Short Term Goal 1: Patient will answer demongraphic questions with increased time with 100% accuracy Verbal Expression Short Term Goal 1 Progress Toward Goal: Progress toward goal completion: continue on target Diagnosis: Impressions Consistent with a diagnosis of: Non-Aphasic Cognitive Communication Disorder, Aphasia Aphasia: Moderate Non-Aphasic Cognitive Communication Disorder: Moderate Plan COMMUNICATION RECOMMENDATIONS: ?? Allow extra time for a response ?? Reduce all distractions or background noise ?? Face to face conversation is best ?? Use language that is simple and direct. Avoid slang or jargon. ?? If a breakdown cannot be repaired, take a break and come back later Discharge Location: Inpatient rehab PROGRAM ARCHITECT Ongoing Services: Ongoing formal Speech Pathology services [facility] Potential: Good Suman Zavaleta - 01/14/2022 9:00 AM CDTAssociated Order(s): IP CONSULT TO PHARMACY INTAKE TECHNICIAN CARDIO TECH Encounter: Follow up, spiritual care consult order Situation: Mia Richardson is a 51 y.o. female receiving care following a recent brain tumor Surgery, and awaiting further decisions about care by the medical team, as she deals with continuing pain in her head. This patient closes her eyes much of the time and remains in the semi-dark due to visual distress, and sometimes needs time to find the words she is seeking to convey her message. Grief reactions: This patient has been distressed and sometimes tearful about her illness, wondering why this is happening to her and why it is affecting her at at a relatively young age. This patient sometimes cries about this overnight and occasionally with medical team members. Ms. 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 Family: This patient expresses care for her mother and two adult children, a son and a daughter. Shana Tradition: This patient has no specific shana commitment. Prayer offered and accepted as a resource. Plan: Will remain available for spiritual care as needed or requested. Chaplains can be contacted by paging [phone] ([place]) or [phone] ([place]). Marie Caballero O.T. - 01/12/2022 1:57 PM CDT Occupational Therapy [facility] Inpatient Evaluation/Treatment SUBJECTIVE Referring/Attending Provider: Charles Ivey M.D. Patient's Name: Mia Richardson Reason for Referral: OT eval and treat- brain Medical Diagnosis: 1. Tumor Brain (HCC) 2. Malignant Neoplasm Of Brain (HCC) 3. 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 Precautions Other Precautions: fall Patient/Caregiver Goals: Patient would like to feel better and go home. 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 Home Living Type of Home: House Home Living Comments: Patient responding to all questions, but tends to perseverate and is not a realiable historian as evidenced by inconsistencies in responses and non-sensical statements. Per chart,her mother from [place] has been living with her recently and she has 3 children ages 29, 23, 21. Patient mentioned having a boyfriend named Erich. Home Equipment Home Adaptive Equipment: None OBJECTIVE Cognition Cognitive assessment method: Therapist observations Arousal/Alertness: Inconsistent responses to stimuli (Eyes closed throughout session, but patient was responsive to questions and following simple commands.) Attention: Impairments noted Sustained: Moderate Divided: Severe Alternating: Severe Orientation: Disoriented to place, Disoriented to time, Disoriented to situation Following Commands: One Step Commands One Step Commands: Follows one step commands with increased time, Follows one step commands with repetition Memory: Impairments noted Long-term Memory/History Giving: Moderate Short-term Memory: Moderate Memory Comments: Unable to give accurate details regarding history with many inconsistencies in her reponses. Safety/Judgment: Impairments noted Self-monitoring/Self-correct Consistently: Moderate Insight/Awareness of Deficits: Moderate Baseline Vision/Correction: Wears glasses all the time Current Vision Comments: Patient reports that her vision isn't right, but difficult to assess due todrowsiness. Reports blurred vision. Light Touch: No deficits ROM - Upper Extremity Screen: Addressed, no concerns noted Strength - Upper Extremity Screen: Addressed, no concerns noted Patient/Family Education: Educated patient on role of occupational therapy. At the end of today's therapy session patient was left with the bed alarm on with an appropriate call light within reach. Patient's needs and questions addressed during today's session. Contact Monitoring: PPE used during therapy: Therapist was wearing the following PPE throughout entire session: surgicalmask and eye protection Patient was wearing a mask during therapy session: no Assessment Patient was seen for occupational therapy evaluation. Patient drowsy with eyes closed majority of session. Despite drowsiness, patient following simple commands with increased time and responding to all questions asked. Patient is not a reliable historian at this time with many inconsistent responses to questions. Patient also has a tendency to perseverate on certain words and repeat them in responseto multiple questions. Will continue to see patient for occupational therapy further assess cognition, vision, and activities of daily living as level of arousal improves. From the Occupational Therapist's perspective, the patient needs further assessment. Patient is withemerging skills, but will need to demonstrate consistent participation level and tolerance in order to be a candidate for inpatient rehabilitation. Will formally discuss at next PMR team rounds and comm unicate with primary service accordingly. Rehab Potential: Ms. Cedillo has good potential to achieve established occupational therapy goals within the time frame outlined below. Barriers to Discharge Home: Current functional status, Safety concerns Comorbid Conditions: Cancer Discharge Therapy Needs - OT: Ongoing skilled occupational therapy Level of Care Needed - OT: Assistance with toilet/shower transfers, Assistance with medication set up/administration, Assistance with showering/bathing, Assistance with dressing, Assistance with meal preparation, Assistance with director financial services, Assistance with transportation, Assistance with hous ekeeping, Assistance with shopping, Cognitive assistance needed Skilled therapy can include occupational therapy provided by home health, outpatient clinic, or a post-acute facility. The location of these services is determined by the patient's care team in partnership with patient/family. Functional Goals and Timeframes: OT Goal #1: Patient will participate in cognitive assessment to determine further therapy and safetyneeds. OT Goal #2: Patient will complete toilet transfer and toileting with supervision. OT Goal #3: Patient will complete bathing and dressing tasks with supervision. OT Goal #4: Patient will maintain level of alertness x20 minutes to participate in occupational therapy session. Plan Patient agrees with the plan of care and goals. Treatment Plan: OT Frequency: 5 times per week OT Amount: 1 visit per day OT Inpatient Duration : Until goals are met or hospital discharge Plan: Plan of care initiated OT Plan Comments: Treatment: Cognitive assessment; activities of daily living Treatment interventions may include: Treatment Interventions: Therapeutic functional activity, Neuromuscular re- education, Self-care/homemanagement, Cognitive skills training Occupational Profile and History review: Expanded Performance Deficits: 3 - 5 performance deficits Evaluation Complexity: Moderate Time Spent with Patient Evaluations OT Eval - Mod Complexity: 16 min Time Tracking Total Treatment Time (min): 16 min Marie Caballero O.T. Chantal Maria P.T., AdrianP.[place], [facility] - 01/12/2022 1:03 PM CDT Physical Therapy [facility] Inpatient Evaluation/Treatment SUBJECTIVE Referring/Attending Provider: Charles Ivey M.D. Patient's Name: Mia Richardson Reason for Referral: PT eval and treat- brain Medical Diagnosis: 1. Tumor Brain (HCC) 2. Malignant Neoplasm Of Brain (HCC) 3. Change Mental Status Payor: [facility] / Plan[place] / Product Type: PPO / PERTINENT MEDICAL / SURGICAL HISTORY: Patient Active Problem List Diagnosis ??? Malignant Neoplasm Of Brain (HCC) ??? Tumor Brain (HCC) Past Surgical History: Procedure Laterality Date ??? CRANIOTOMY - STEREOTACTIC Left 01/10/2022 Procedure: Asleep left temporoparietal stereotactic craniotomy tumor resection, speech mapping, supine position, intraoperative MRI, BK ultrasound.; Surgeon: Charles Ivey M.D., Ph.D.; Location:[facility] OR ??? CRANIOTOMY FOR TUMOR Left 12/05/2021 ??? TONSILLECTOMY History of Present Illness: s/p left temporoparietal crani for resection of Grade 3 astrocytoma See Hospital Admission History and Physical for full history of present illness. Precautions Other Precautions: fall OBJECTIVE Strength - Lower Extremity Screen Comments: full antigravity Bed Mobility - Supine to Sit # of Assistants: 1 Level of Assistance: Minimal assistance, Moderate assistance Device: Bed rail Cuing: Verbal, Tactile Sit to Stand Transfers # of Assistants: 1 Transfer Surface: Chair Transfer Equipment: Gait belt Level of Assistance: Minimal assistance Assessment/Delivery: Assessed, Therapist assisted, Facilitated Stand to Sit Transfers # of Assistants: 1 Transfer Surface: Chair Transfer Equipment: Gait belt Level of Assistance: Minimal assistance Assessment/Delivery: Assessed, Therapist assisted, Facilitated Gait Assessment/Training Distance (m): 0.5 m Surface: Even, Smooth/hard Device: Gait belt # of Assistants: 1 Level of Assistance: Minimal assistance Quality/Pattern: Antalgic, Decreased heel strike, Decreased toe off Assessment of Gait: hunched posture Training/Intervention: faciliation to trunk Response: pain and fatigue Patient/Family Education: importance of upright activity At the end of today's therapy session patient was left seated in bedside chair with an appropriate call light within reach. Patient's needs and questions addressed during today's session. Contact monitoring: PPE used during therapy: Therapist was wearing the following PPE throughout entire session: surgicalmask and eye protection Patient was wearing a mask during therapy session: no Assessment Patient was quite lethargic but participated with encouragement and stimulation. PT was unable to obtain much social history due to level of arousal. Difficulty with commands due to fatigue, was ableto move all 4 extremities anti gravity once sitting upright. She stood up somewhat impulsively withhelp and made her way to bedside chair that PT had set up next to bed. She was somewhat labile oncein chair, tearful about missing her boyfriend. Will get a better picture as her level of alertness improves. Patient will benefit from ongoing skilled PT to work on bed mobility, transfers, ambulation, stairs, balance, endurance, and ongoing rec's. Rehab Potential: Ms. Cedillo has Good potential to achieve established physical therapy goals withinthe time frame outlined below. Barriers to a safe discharge home: level of assist Skilled therapy can include physical therapy provided by home health, outpatient clinic, or a post-acute facility. The location of these services is determined by the patient's care team in partnershipwith patient/family. Functional Goals and Timeframes: PT Goal #1: patient will be independent with bed mobility, bed flat, no rail PT Goal #1 Date: 01/19/22 PT Goal #2: patient will be independent with sit <--> stand, no AD PT Goal #2 Date: 01/19/22 PT Goal #3: patient will be supervised to ambulate x 150 feet, no AD PT Goal #3 Date: 01/19/22 PT Goal #4: patient will ascend/descend flight of stairs with rail PT Goal #4 Date: 01/19/22 Plan Patient agrees with the plan of care and goals. Treatment Plan: PT Frequency: 6 times per week Plan: Plan of care initiated Treatment interventions may include: Treatment/Interventions: Therapeutic exercise, Therapeutic functional activity, Neuromuscular re-education, Gait training Clinical Presentation: Evolving Number of Examination elements: 3 Clinical Decision Making: Moderate complexity clinical decision making Time Spent with Patient Evaluations PT Eval - Mod Complexity: 15 min Therapeutic Interventions Therapeutic Activity (min): 9 min Time Tracking Total Timed Units (min): 9 min Total Treatment Time (min): 24 min Chantal Maria P.T., Pillo.P.TSanjuanita, TREMAINE Hattie Tobar M.D., Ph.D. - 01/11/2022 3:15 PM CDT CHIEF COMPLAINT Poor mentation postoperatively HISTORY OF PRESENT ILLNESS Mia Richardson is a 51 y.o. female with a PMHx of hypertension and recent [place] [facility] 3 astrocytoma, IDH wildtype, MGMT unmethylated who is postoperative day 1 following left temporoparietal craniotomy for high grade glial tumor. She was evaluated by the neurocritical team for poor mentation postoperatively concerning for possible subclinical seizure. PHYSICAL EXAM General: Laying quietly in bed, no acute distress HEENT: In headwrap CV: Regular rate and rhythm on telemetry Resp: Non-labored Abdomen: Soft, non-distended Neuro: Opens eyes spontaneously briefly then closes, resists eye opening, gaze midline, pupils equal, briefly regards then closes eyes, does not track. Inappropriately answering questions, only responds yeah. Does not follow any commands. Moves all extremities purposefully without focal deficit. DIAGNOSTICS Relevant labs and imaging reviewed ASSESSMENT / PLAN - Routine EEG negative for seizure activity and exam reassuring; based on recent clinic notes she may be close to baseline - No concerns for subclinical seizures at this time --- Low threshold for continuous EEG if starts to have fluctuating mental statis - UOP 50-100 mL/hr; continue to monitor - Na stable/normal at 140 (138, 139) - Continue Keppra and Dexamethasone per neurosurgery DVT PPx: SCDs Code: Full Dispo: ICU Please page the neuro critical care service pager [phone] for any questions or concerns regarding the management of this patient. Associated attestation - Teofilo Vincent M.D. - 01/11/2022 4:17 PM CDT I have reviewed Dr. Hattie Tobar' history, examination, and plan of care and I agree with that documentation, other than indicated below. I have personally examined the patient in the ICU. Patient remains aphasic after subtotal resection of high-grade glioma yesterday. No motor or or electrographic manifestations suggestive of seizures. No major complications noted on postoperative brain MRI On levetiracetam and dexamethasone Will continue to monitor her clinical condition. Chandan Ji M.D. - 01/10/2022 7:25 AM CDT SUBJECTIVE HISTORY OF PRESENT ILLNESS This is a supervisory note for the Medicine Consult team. I saw and evaluated the patient. I reviewed with the Medicine Consult team the medical history and the findings on physical examination. I discussed with the resident and Medicine Consult team the patient???s diagnosis and concur with the treatment plan as documented in the resident note. Ms. Cedillo is a very pleasant 51 y.o. female who we are following on the Medicine Consult Service. ASSESSMENT / PLAN #1 Malignant Neoplasm Of Brain (HCC) #2 Tumor Brain (HCC) # BERNICE Ms. Cedillo is a 51-year-old woman who presents for a preanesthetic medical evaluation for a left temporal stereotactic craniotomy after cytoma resection. She otherwise has a history of psoriasis, hyperlipidemia, and hypertension. She has been on steroids for greater than 3 weeks within the last monthin the setting of her intracranial mass. RCRI and Ling are both less than 1%. She is at her cardiopulmonary baseline. Given this, I would not recommend further risk stratification, especially in lightof a functional capacity greater than 4 METS without cardiac symptoms. She is at an increased risk for adrenal suppression given her dose of steroids greater than 3 weeks. She is currently on dexamethas one 4 mg t.i.d. which will provide adequate supplementation in the perioperative period. Will defer tapering of this to our neurosurgical colleagues. She is also at a high risk of postoperative nausea and vomiting. The steroids should help with this, but as needed Zofran could also be used. She could also receive Aprepitant if nausea and vomiting become an issue. Rest of details per the Medicine Team. Thank you for this consult. [place] [phone] if there are anyquestions or concerns. TOTAL TIME: 30 min Marysol Martinez M.D. - 01/09/2022 5:34 PM CDTAssociated Order(s): IP CONSULT TO HOSPITAL INTERNAL MEDICINE General Internal Medicine - Hospital Consult Preanesthesia Medical Evaluation ([facility]) REFERRAL SOURCE Neurologic surgery HISTORY OF PRESENT ILLNESS Ms. Mia Richardson is a 51 y.o. female with a past medical history as below who was admitted to theneurologic surgery service for left temporoparietal stereotactic craniotomy astrocytoma resection. Medicine consults was consulted for BERNICE for procedure 01/09/2022 Patient was only engaging for one-word answers and wished to be quiet and still in the setting of her headache, nausea and vomiting so she agreed to have her mother go through her medical history and verify as below. In brief, initially noted word-finding difficulties in early November of this year and had a unwitnessed fall so was started on Keppra for possible seizure prophylaxis and an MRI obtained the next day showed a new lesion in the left cerebral hemisphere, left lateral temporal lobe, parietal lobe and left thalamus with extension into the hippocampus. She underwent biopsy on 12/05/2021 - pathology indicating at least grade 3 - astrocytoma, IDH wild type, MGMT unmethylated. Since that time, she has completed dexamethasone taper - which started at 16 mg a day. They noticed March changes at the end of her taper with worsening so she was restarted within a week back on 4 mg daily. Continued worsening headaches and increased fatigue. She was seeing Oncology in the outpatient setting today and was noted to have marked increase with mass effect and midline shift on her brain MRI. It was recommended that she present more urgently for craniotomy. 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 1. Normal LV size, borderline wall thickness, normal global systolic function with an estimated EF of 60 - 65%. ?? 2. Right ventricular cavity size is normal, global systolic RV function is normal. ?? 3. No significant functional valve disease detected. - Catheterization: None - Recent aspirin or Plavix use: None RISK STRATIFICATION Functional status: - Functional Class I: Able to perform >7 METS Risk factors: - Age: 51 - Smoking: Brief in the 30s, maybe 1 pack year maximum - Hypertension: Prior Hx. After losing weight - Diabetes mellitus: No Hemoglobin A1c 03/2017 5.4% - Family history of early CAD: None - Hyperlipidemia: Hx of with improvement in 2019, not on a lipid lowering medicaiton Pulmonary history: - Asthma: None - COPD: None - NITHYA: Never checked - PFTs: None - Chest x-ray: None Stop Bang Total Score: 2 Renal insufficiency: Creatinine 0.84 Anesthesia history, including PONV & POUR: Baseline nausea/vomit currently History of DVT or pulmonary embolism: None. Clotting or bleeding disorders: None. Steroid use: Yes Transfusion history: None Bloodborne infectious history (HIV/HBV/HCV): None Glaucoma history: None Stroke or seizure history: Possibly, not on EEG but has had a fall, nothing witnessed Herbal medications: Essiac Alcohol dependence: Rare Medical History Past Medical History: Diagnosis Date ??? Astrocytoma (HCC) ??? Herniated Disc Lumbar ??? Hypertension Essential Primary ??? Nodule Thyroid ??? Psoriasis ??? Radiculopathy Lumbar Fifth Right Surgical History Past Surgical History: Procedure Laterality Date ??? CRANIOTOMY FOR TUMOR Left 12/05/2021 ??? TONSILLECTOMY Allergies: Allergies Allergen Reactions ??? Adhesive Tape-Silicones Itching ??? Lactose Rash Medications: Prior to Admission medications Medication Sig Start Date End Date Taking? Authorizing Provider acetaminophen (Tylenol Extra Strength) 500 mg tablet Take 1,000 mg by mouth 3 (three) times a day asneeded for pain. 01/01/22 Yes Provider, Historical dexAMETHasone (DECADRON) 4 mg tablet Take 1 tablet (4 mg total) by mouth 2 (two) times a day for 48 doses. Take first dose with food in the morning. Take second dose with food no later than 4 pm. 01/09/22 02/02/22 Karthikeyan Cedeno M.D. levETIRAcetam (KEPPRA) 1,000 mg tablet Take 1,000 mg by mouth 2 (two) times a day. 12/07/21 Provider, Historical 25/iron fum/folic/dha (-1 ORAL) Take 1 tablet by mouth daily. Provider, Historical temozolomide (TEMODAR) 140 mg capsule Take 140 mg by mouth daily. 12/31/21 Provider, Historical temozolomide (TEMODAR) 20 mg capsule Take 20 mg by mouth daily. 12/31/21 Provider, Historical TURMERIC ORAL Take 1 capsule by mouth daily. Provider, Historical VITAMIN B COMPLEX ORAL Take 1 tablet by mouth daily. Provider, Historical cyanocobalamin (VITAMIN B12) 1,000 mcg tablet daily. 06/17/19 01/09/22 Provider, Historical dexAMETHasone (DECADRON) 4 mg tablet Take 1 tablet (4 mg total) by mouth 2 (two) times a day for 48 doses. Take first dose with food in the morning. Take second dose with food no later than 4 pm. 01/03/22 01/09/22 Karthikeyan Cedeno M.D. OBJECTIVE VITALS There were no vitals taken for this visit. No intake or output data in the 24 hours ending 01/09/221929 PHYSICAL EXAM General: Sleepy but arousable. Answering only one word answers. Stated name and age as well as hospital. Skin: No visualized lesions over the face,exposed dorsal arms, hands, legs. HEENT: PERRL. No scleral icterus. Mucous membranes moist. No oropharyngeal lesions. Mallampati notvisualized as patient would gag and was nauseous and vomited so she deferred further attempts Cardiovascular: Regular rate and rhythm. S1 and S2 present. No rubs, murmurs, gallops. No JVD. No peripheral edema. Respiratory: Breathing comfortably on room air. Clear to auscultation bilaterally. Abdomen: Soft, nontender, non-distended. Bowel sounds present. Extremities: Warm, well perfused. Neuro: No dysarthria, no aphasia. Was only following simple commands and asking to defer more advanced maneuvers do to headache, nausea and vomiting DIAGNOSTICS [facility] Labs: Age 50-60 - ECG only: Sinus bradycardia ASSESSMENT / PLAN Ms. Mia Richardson is a 51 y.o. female with a past medical history as below who was admitted to theneurologic surgery service for left temporoparietal stereotactic craniotomy astrocytoma resection. 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 Recommendations -Patient is medically optimized for the planned procedure. ??? Medication changes: o HOLD: no other additional perioperative medication recommendation ??? Perioperative Steriod Therapy: The neurosurgery team has already started her on 4 mg t.i.d. of dexamethasone. This is already elevated above typical perioperative stress dose steroids so she is adequately covered. Please ensure adequate taper is outlined post-operatively ??? High risk of PONV: She is already receiving steroid treatment as well as Zofran. Could consider a dose of Aprepitant this evening (if allowed inpatient). This would cover her for the 72hr perioperative in addition to steroids at the point of induction and post surgery antiemetics (compazine and zofran) Specific risks addressed below: ........................................................................ -- Cardiovascular risk assessment Estimated (RCRI) risk of bhumi-operative cardiac event: 0 points = 0.4% Anuradha Perioperative Risk for Myocardial Infarction or Cardiac Arrest: 0.0-0.2% risk of myocardial infarction or cardiac arrest, intraoperatively or up to 30 days post-op Functional status is greater than 4 METS Patient may proceed to operating room without further cardiovascular ischemic risk stratification: yes -- Pulmonary risk assessment Risk of postoperative respiratory failure is average, based on age, type of surgery, and medical comorbidities. ARISCAT risk of postoperative pulmonary complications: 1.6-13.3% (increased depending on length of surgical time) Obstructive Sleep Apnea Risk: STOP-BANG score is 2, indicating average risk of NITHYA Recommend continuous oxygen monitoring in the immediate postoperative period, elevation of HOB to >30 degrees at all times, incentive spirometry, upright positioning, early mobilization, and cautious use of ELECTRICAL PROSPECTING OBSERVER-acting medications. -- Hematologic risk assessment Bleeding risk: average VTE prophylaxis: Recommend VTE prophylaxis when deemed safe from surgical bleeding risk standpoint (UFH or LMWH, or IPC ) Caprini VTE score 6 High risk Early ambulation -- Endocrine risk assessment Risk of adrenal insufficiency: elevated Perioperative Steriod Therapy:This will depend on the if her craniotomy is considered a major surgical stress or moderate in the OR. She is also receiving elevated steroid doses in the setting of her brain tumor currently. For moderate surgical stress : take usual morning steroid dose. Give 50 mg hydrocortisone intravenously just before the procedure and 25 mg of hydrocortisone every eight hours for 24 hours. Resume usual dose thereafter. For major surgical stress :take usual morning steroid dose. Give 100 mg of intravenous hydrocortisone before induction of anesthesia and 50 mg every eight hours for 24 hours. Taper dose by half per dayto maintenance level. Diabetes: no -- Renal risk assessment Estimated creatinine clearance is CrCl cannot be calculated (Patient's most recent lab result is older than the maximum 7 days allowed.). Avoid nephrotoxins -- Delirium risk assessment Delirium risk is: average Recommend nonpharmacological delirium prevention measures in the perioperative period ---PONV assessment Very High risk: She has already received steroid treatment as well as Zofran. Could consider a dose of Aprepitant this evening if considered an option inpatient. This would cover her for the 72hr perioperative in addition to steroids at the point of induction and post surgery antiemetics (compazineand zofran) ........................................................................ Case was staffed with Dr. Ji. Preoperative medical evaluation has been completed so we will sign off our consult at this time. Please page the medicine consult service pager at [phone] if there are any questions or concerns. Marysol Martinez M.D. Internal Medicine Resident, PGY-3 [facility] Medicine Consults, service pager [phone] Charles Ivey M.D., Ph.D. - 01/09/2022 4:50 PM CDT SUBJECTIVE REASON FOR CONSULT Rapidly progressing left temporal high-grade glioma. HISTORY OF PRESENT ILLNESS Ms. Cedillo is a 51-year-old female who was seen earlier today for a functional MRI and then seen byNeuro-Oncology. I was contacted due to quite concerning progressive changes on her functional MRI. The patient underwent a stereotactic biopsy of a left temporal region of hyperintensity in November at [facility]. The pathology apparently revealed IDH wild type, grade 3 astrocytoma. Multiple additional areas of hyperintensity were also seen including in the left hippocampus mesial to the main lesion as well as in the thalamus. The patient had been scheduled to meet with my neurosurgical partner Dr. Evangelist Salinas next week for preoperative discussion ahead of likely recommended resection. In that context, the patient had been prescheduled for a functional MRI, which she completed today. The patient, her sister, and mother note that her performance has deteriorated markedly in the past several days with worsening aphasia, confusion, and increasing headaches. OBJECTIVE PHYSICAL EXAMINATION Neuro: At the time of my visit, the patient is seated in a darkened room with an ice pack and eyes closed in obvious substantial discomfort. She is able to answer basic questions. A more detailed neurological exam was performed by Dr. Cedeno. He notes that she could perform 2-step but not 3-step commands and aside from language impairment was grossly neurologically intact. DIAGNOSTICS Her brain MRI with functional evaluation is notable for the above-mentioned now large contrast enhancing necrotic lesion which represents a profound change from her [facility] brain MRI. There is new brain compression with midline shift and cerebral edema. The functional sequences are of dubious reliability given in part the substantial vasogenic edema and language areas in the left temporal lobe beingwithin an area of impaired cerebrovascular reserve based on the breath hold sequence. ASSESSMENT / PLAN #1 A 51-year-old female with malignant transformation of a previously documented grade 3 astrocytoma, now almost certainly glioblastoma Recommendation for: 1. Admission for pain control and preoperative management. 2. Plan for craniotomy for resection of tumor tomorrow. I discussed with the patient and family, though the patient herself was too distracted by her pain to really participate much in the conversation, about awake versus asleep surgery. Prior to meeting the patient, I had tentatively made arrangements with Dr. Avilez of neuropsychology to be available fora possible awake craniotomy. I think that in other circumstances, despite the brain swelling, if the patient were able to participate appropriately and had adequate pain control, we could debulk the tumor and then with less mass effect be able to more effectively map and achieve a maximal safe resection. However, the family notes that she does have a history of having difficulty with pain control during procedures, seeming to metabolize local anesthetic unusually quickly. This, in conjunction with her current state of duress, as well as the absence of bulky nonenhancing tumor that we would need to resect, I think we can achieve an excellent resection of the contrast-enhancing lesion via an asleep craniotomy with modest risk. The lesion does come to the cortical surface, meaning that we would not need to go through any eloquent brain to access and debulk the contrast-enhancing tumor that should not have functional brain within it. We will plan to meet with the patient later this evening, hopefully once her pain is better under control, in order to discuss further the specifics of surgery and obtain consent for the procedure as well as tissue research. The family had an opportunity for questions to be answered. They are eager for her to be admitted and undergo surgery as soon as possible. Charles Ivey M.D., Ph.D. CT CT Job ID: [id number] documented in this encounter Nursing Notes Shilpa Burnette R.N. - 01/17/2022 11:50 AM CDT Shift Goals: Transfer to [facility] rehab today Identify possible barriers to meeting goals/advancing plan of care: confusion, impulsivity End of Shift Summary: Patient transferred to [facility]. Report given to JAMES Kirby. Ms. Cedillo has been tolerating a general diet, voiding, ambulating with SBA and reports good pain control. She continues to be impulsive and does need some direction with daily tasks. She answers questions but perseveratesin her speech. She is transferred by [facility] in a wheelchair with all of her belongings. Amelie Gayle R.N. - 01/15/2022 10:45 PM CDT Shift Goals: End of Shift Summary: Patient has remained vitally stable with unchanged neuro assessment. She is tolerating a general diet with ample fluid intake. Pain is well managed with prescribed PO medication regimen. She is ambulating with assist of 1 and gait belt. Patient is voiding spontaneously with no concerns. Patient is alert and oriented to person, place, and time; continues with delayed responses throughout this shift. Amelie Gayle R.N. Amelie Gayle R.N. - 01/14/2022 10:42 PM CDT Shift Goals: End of Shift Summary: Patient has remained vitally stable with unchanged neuro assessment. She is alert and oriented to person, place, and time but continues to have delayed sometimes confused responses to general questions. She is ambulating to restroom with assist of 1 and gait belt; voiding spontaneously. Pain has been well managed with prescribed oral pain regimen. Mother has been bedside this evening. Amelie Gayle R.N. Kate Talbert R.N. - 01/13/2022 6:32 PM CDT Shift Goals: Clinical Goals for the Shift: Pt will remain safe during shift Identify possible barriers to meeting goals/advancing plan of care: none End of Shift Summary: Goal was met. Marysol Padron R.R.T., L.R.TSanjuanita - 01/11/2022 4:26 PM CDT Patient is a 51 y.o. female admitted on 01/09/2022 Alert Information: Plan of Care: PT is breathing comfortably on RA. Assess daily in ICU. No interventions indicated at this time. Emergency anesthesia bag & mask bedside. Principal Problem Tumor Brain (HCC) Oxygen Therapy $Delivery Method: Room air Arterial Line 01/10/22 Right Radial (Active) Placement Date/Time: 01/10/22 (c) 0984 Procedural Pause Completed: Yes Catheter Time Out Checklist Completed: Yes Hand Hygiene Performed Prior to Insertion: Yes Site Prep: Chlorhexidine (Preferred) Sterile Barriers Used : Cap;Gloves;Gown;Large d... Social History Tobacco Use Smoking Status Former Smoker Smokeless Tobacco Never Used No results for input(s): PO2 ART, PCO2 ART, PH ART in the last 24 hours. documented in this encounter OR Notes Op Note - Charles Ivey M.D., Ph.D. - 01/10/2022 3:34 PM CDT PRE-OPERATIVE DIAGNOSIS Glioblastoma. POST-OPERATIVE DIAGNOSIS Glioblastoma. A server service assistant actively participated and was necessary for one or more of the following: opening,exposure and visualization during the case, maintaining hemostasis, wound closure resulting in its safe and expeditious completion. SURGEON: Charles Ivey M.D., Ph.D. HYDRO ELECTRIC STATION OPERATOR: Madiha Castro M.D. FELLOW: Johnathan Jones M.D., Ph.D. OPERATIVE NOTE NARRATIVE The patient was brought to operative room 216 at [facility] where appropriate venous and arterial access was obtained. The patient underwent endotracheal intubation, and a Webster catheter was placed. The patient was placed in 3-pin head fixation using the MRI-compatible head clamp and affixedto the MRI-compatible table. The patient was positioned supine with the head turned to the right, exposing the left temporal region uppermost. The patient had previously undergone an open biopsy, and this incision was planned for reopening with superior extension. The patient was prepped and draped inthe usual sterile manner. A time-out was performed. The skin was opened sharply and carried down to the bone with monopolar cautery. The skin hooks were used to maintain retraction. The prior hardware was removed, and the original bone flap removed. An additional portion of bone was removed using the craniotome. The brain had previously been quite edematous, and so we prophylactically gave mannitol and used hyperventilation and reverse Trendelenburg. As such, when we opened the dura, the brain was full but not herniating. We used the Stealth navigation system as well as the ultrasound to guide resection. A corticectomy was made over the compressed gyrus immediately adjacent to the tumor. We circumf erentially worked around the lesion using the gliotic white matter around the tumor as a guide. In portions we did get into the tumor. There were portions of it that were quite hypervascular, particularly on the cortical surface; however, the center of it proved to be quite avascular and necrotic. Once the main bulk of the tumor had been worked around, we undercut this and delivered the main specimenas a single specimen. The Cavitron ultrasonic aspirator was then used to debulk the remnant necroticportions. We did encounter some more hypervascular areas at the depth of the resection cavity. Usingthe ultrasound, as well as the Stealth navigation system, it appeared that we had removed a majorityof the lesion at this point. As such, we obtained hemostasis with Surgicel and irrigation and performed a temporary closure in order to obtain an intraoperative MRI. We performed the safety checks and maintained sterility of the field, and the patient was advanced into the intraoperative MRI for diffus ion and pre- and postcontrast T1-weighted imaging. This demonstrated no evidence of complications, and a portion of contrast-enhancing tissue at the anterior medial aspect of the incision as well as immediately around the ventricle. The patient was returned to the operative room, and the images were transferred to the kooaba navigation system and merged with the original imaging. We then debulked portions of the lesion that had residual contrast enhancement prior to proceeding with the final closure. This was performed after obtaining immaculate hemostasis with irrigation and Surgicel. CSF had been encountered during the second portion of the operation, and so we took care to obtain a watertight c losure with a running silk suture and pericranium to reinforce. The bone flap was replaced with titanium plates and screws. Vancomycin powder was placed over the craniotomy after copious irrigation. The galea was closed with inverted Vicryl sutures, and the skin was closed with jose a. Prior to the end of the case, all instrument, needle, and sponge counts were correct. TPR: 3, Resection of left temporal presumed glioblastoma Charles Ivey M.D., Ph.D. CT CT Job ID: [id number] Brief Op Note - Madiha Castro M.D. - 01/10/2022 9:58 AM CDT Pre-op Diagnosis Malignant Neoplasm Of Brain (HCC) Post-op Diagnosis Malignant Neoplasm Of Brain (HCC) Findings As expected. Complications None Madiha Castro M.D. Brief Op Note - Madiha Castro M.D. - 01/10/2022 9:58 AM CDT Pre-op Diagnosis Malignant Neoplasm Of Brain (HCC) Post-op Diagnosis Malignant Neoplasm Of Brain (HCC) Findings As expected. Complications None Madiha Castro M.D. documented in this encounter Miscellaneous Notes Hospital Course - Madiha Castro M.D. - 01/12/2022 8:10 AM CDT Mia Richardson is a 51 y.o. female with a PMHx of hypertension and recent biopsy and [place] [facility] [place] grade 3 astrocytoma, IDH wildtype, MGMT unmethylated. She was admitted to the neurological ICU following resection for concerns of subclinical seizure. During her stay in the ICU routine EEG performed which did not show any evidence of epileptiform discharges. She underwent left temporoparietal crani on 01/10 for resection of Grade 3 astrocytoma, IDH wildtype,MGMT unmethylated. Preop symptoms: lethargic, not oriented, significant pain, nausea, word-finding difficulties, likely seizure. Underwent biopsy and subtotal resection on 12[place]05 [place] [facility] After surgery, she improved temporarily, but then developed severe fatigue, headaches, vision/speech/taste/smell changes this past weekend. More recent imaging shows increased contrast enhancement, mass effect, and midline shift. On admission, she could not answer questions or follow commands. She had severe nausea, f requent episodes of emesis, complained of significant headache and pain, but was moving all extremities symmetrically. For the first day after surgery, she was unable to answer questions or follow commands. By the evening of POD#1, she was able to say her name and follow simple commands. Her exam improved steadily throughout her hospitalization. 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 documented in this encounter Plan of Treatment Upcoming Encounters Date Type Specialty Care Team Description 03/12/2022 Appointment Radiation Oncology Stephanie Gleason M.D. [address] [place] [phone] 03/12/2022 Appointment Radiation Oncology Stephanie Gleason M.D. [address] [place] [phone] 03/13/2022 Appointment Radiation Oncology Stephanie Gleason M.D. [address] [place] [phone] 03/14/2022 Appointment Radiation Oncology Stephanie Gleason M.D. [address] [place] [phone] 03/25/2022 Ancillary Procedure Ophthalmology Chas Shin M.D. [address] [place] [phone] 03/25/2022 Ancillary Procedure Ophthalmology 03/25/2022 Ancillary Procedure Ophthalmology Chas Shin M.D. [address] [place] [phone] 03/26/2022 Ancillary Procedure Ophthalmology Rebeca Valle, Dilia-Rusty., M.S. [address] [place] [phone] 03/26/2022 Comprehensive Visit Ophthalmology Chas Shin M.D. [address] [place] [phone] 03/29/2022 Comprehensive Visit Endocrinology Farzana Allen M.D. [address] [place] [phone] 04/04/2022 Appointment Radiology Christina Tai P.A.-C., M.S. [address] [place] [phone] 04/04/2022 Office Visit Oncology Vini Maki M.D., Ph.D. [address] [place] [phone] 04/04/2022 Office Visit Neurological Surgery Charles Ivey M.D., Ph.D. [address] [place] [phone] 05/03/2022 Comprehensive Visit Clinical Genomics Sanya Mehta M.D. [address] [place] [phone] 05/06/2022 Clinical Communication Admitting/Central Scheduling 05/09/2022 Office Visit Oncology Farzana Allen M.D. [address] [place] [phone] documented as of this encounter Procedures Procedure Name Priority Date/Time Associated Comments Diagnosis SODIUM, S/P Timed 01/13/2022 6:16 Results for this PM CDT procedure are i n the results section. CT HEAD WITHOUT IV RAD - Emergent 01/13/2022 3:30 Res ults for this CONTRAST (Fastest; for the PM CDT procedure are in most critically the results ill patients) section. CT HEAD NECK RAD - Emergent 01/13/2022 3:30 Results f or this ANGIOGRAM WITH IV (Fastest; for the PM CDT proce dure are in CONTRAST most critically the results ill patients) section. SODIUM, S/P Timed 01/13/2022 12:24 Results for this PM CDT procedure are i n the results section. SODIUM, S/P Timed 01/13/2022 6:44 Results for this AM CDT procedure are i n the results section. SODIUM, S/P Timed 01/13/2022 12:19 Results for this AM CDT procedure are i n the results section. SODIUM, S/P Timed 01/12/2022 4:17 Results for this PM CDT procedure are i n the results section. BASIC METABOLIC Routine 01/12/2022 4:35 Results for this PANEL, S/P AM CDT procedure are i n the results section. BASIC METABOLIC Routine 01/11/2022 8:54 Results for this PANEL, S/P PM CDT procedure are i n the results section. EEG ROUTINE - AWAKE STAT 01/11/2022 1:29 Change Mental Res ults for this AND SLEEP PM CDT Status procedure are i n the results section. BASIC METABOLIC STAT 01/11/2022 7:12 Results for this PANEL, S/P AM CDT procedure are i n the results section. SODIUM, S/P STAT 01/10/2022 8:14 Results for this PM CDT procedure are i n the results section. PATIENT STATUS STAT 01/10/2022 2:06 Results f or this PM CDT procedure are i n the results section. SODIUM, B STAT 01/10/2022 2:06 Results for this PM CDT procedure are i n the results section. ABG W/COOX STAT 01/10/2022 2:06 Results for this PM CDT procedure are i n the results section. POTASSIUM, B STAT 01/10/2022 2:06 Results for this PM CDT procedure are i n the results section. GLUCOSE, WHOLE STAT 01/10/2022 2:06 Results f or this BLOOD PM CDT procedure are i n the results section. CALCIUM, IONIZED, STAT 01/10/2022 2:06 Result s for this S/B PM CDT procedure are i n the results section. PATIENT STATUS STAT 01/10/2022 12:21 Results f or this PM CDT procedure are i n the results section. SODIUM, B STAT 01/10/2022 12:21 Results for this PM CDT procedure are i n the results section. ABG W/COOX STAT 01/10/2022 12:21 Results for this PM CDT procedure are i n the results section. POTASSIUM, B STAT 01/10/2022 12:21 Results for this PM CDT procedure are i n the results section. GLUCOSE, WHOLE STAT 01/10/2022 12:21 Results f or this BLOOD PM CDT procedure are i n the results section. CALCIUM, IONIZED, STAT 01/10/2022 12:21 Result s for this S/B PM CDT procedure are i n the results section. SURGICAL PATHOLOGY, Routine 01/10/2022 12:03 Malignant Resu lts for this [facility] PM CDT Neoplasm Of Brain procedure are in (HCC) the results section. PATIENT STATUS STAT 01/10/2022 11:53 Results f or this AM CDT procedure are i n the results section. SODIUM, B STAT 01/10/2022 11:53 Results for this AM CDT procedure are i n the results section. ABG W/COOX STAT 01/10/2022 11:53 Results for this AM CDT procedure are i n the results section. POTASSIUM, B STAT 01/10/2022 11:53 Results for this AM CDT procedure are i n the results section. GLUCOSE, WHOLE STAT 01/10/2022 11:53 Results f or this BLOOD AM CDT procedure are i n the results section. CALCIUM, IONIZED, STAT 01/10/2022 11:53 Result s for this S/B AM CDT procedure are i n the results section. SODIUM, B STAT 01/10/2022 9:02 Results for this AM CDT procedure are i n the results section. ABG W/COOX STAT 01/10/2022 9:02 Results for this AM CDT procedure are i n the results section. POTASSIUM, B STAT 01/10/2022 9:02 Results for this AM CDT procedure are i n the results section. GLUCOSE, WHOLE STAT 01/10/2022 9:02 Results f or this BLOOD AM CDT procedure are i n the results section. CALCIUM, IONIZED, STAT 01/10/2022 9:02 Result s for this S/B AM CDT procedure are i n the results section. TYPE AND SCREEN STAT 01/10/2022 8:55 Results for this AM CDT procedure are i n the results section. CRANIOTOMY 01/10/2022 7:50 Malignant STEREOTACTIC AM CDT Neoplasm Of Brain (HCC) SODIUM, S/P Timed 01/10/2022 6:33 Results for this AM CDT procedure are i n the results section. SODIUM, S/P Timed 01/10/2022 12:57 Results for this AM CDT procedure are i n the results section. SODIUM, RANDOM, U Routine 01/09/2022 9:35 Result s for this PM CDT procedure are i n the results section. OSMOLALITY, U Routine 01/09/2022 9:35 Results fo r this PM CDT procedure are i n the results section. BASIC METABOLIC STAT 01/09/2022 8:01 Results for this PANEL, S/P PM CDT procedure are i n the results section. SARS CORONAVIRUS 2, Routine 01/09/2022 7:24 Resu lts for this RNA, RAPID POC, V PM CDT procedure are in the results section. CBC WITHOUT Routine 01/09/2022 6:05 Results for this DIFFERENTIAL, B PM CDT procedure ar e in the results section. HEMOGLOBIN A1C, B Routine 01/09/2022 5:58 Result s for this PM CDT procedure are i n the results section. ECG Routine 01/09/2022 4:44 Results for this PM CDT procedure are i n the results section. documented in this encounter Results Sodium (01/13/2022 6:16 PM CDT) P athologist Signature Sodium, S 136 135 - 145 01/13/2022 DTL mmol/L 7:31 PM CDT Specimen Anatomical Collection Method Collection Time Receive d Time (Source) Location / / Volume Laterality Blood (Blood, 01/13/2022 6:16 01/13/2022 Venous) PM CDT 6:49 PM CDT Madiha Castro M.D. LAB BLOOD ADD-ON Performing Organization Address City/State/ZIP Code Phon e Number [facility] - [address] [place], [place] [address] [facility] [place] [address] Laboratories-[facility] [address] [facility] [address] Head Neck Angiogram with IV Contrast [...] stenosis , aneurysm, or focal injury. The [place] and its proximal branch vessels [...] stenosis , aneurysm, or focal injury. The [place] and its proximal branch vessels [...] nfarct. Madiha Castro M.D. IMG CT PROCEDURES CT Head without IV Contrast (01/13/2022 3:30 [...] stenosis , aneurysm, or focal injury. The [place] and its proximal branch vessels [...] stenosis , aneurysm, or focal injury. The [place] and its proximal branch vessels [...] nfarct. Madiha Castro M.D. IMG CT PROCEDURES Sodium (01/13/2022 12:24 PM CDT) athologist Signature Sodium, S 135 135 - 145 01/13/2022 DTL mmol/L 1:00 PM CDT Specimen Anatomical Collection Method Collection Time Receive d Time (Source) Location / / Volume Laterality Blood (Blood, 01/13/2022 12:24 01/13/2022 Venous) PM CDT 12:49 PM CDT Madiha Castro M.D. LAB BLOOD ADD-ON Performing Organization Address City/[facility]/ZIP Code Phon e Number [facility] - [address] [place], [place] [address] [facility] [place] [address] Laboratories-[facility] [address] (ABNORMAL) Sodium (01/13/2022 6:44 AM CDT) P athologist Signature Sodium, S 134 (L) 135 - 145 01/13/2022 DTL mmol/L 8:00 AM CDT Specimen Anatomical Collection Method Collection Time Receive d Time (Source) Location / / Volume Laterality Blood (Blood, 01/13/2022 6:44 01/13/2022 Venous) AM CDT 7:38 AM CDT Madiha Castro M.D. LAB BLOOD ADD-ON Performing Organization Address City/State/ZIP Code Phon e Number [facility] - [address] [place], [place] [address] [place] [address] [facility] 200 [facility] Sodium (01/13/2022 12:19 AM CDT) athologist Signature Sodium, P 137 135 - 145 01/13/2022 DTL mmol/L 1:07 AM CDT Specimen Anatomical Collection Method Collection Time Receive d Time (Source) Location / / Volume Laterality Blood (Blood, 01/13/2022 12:19 01/13/2022 Venous) AM CDT 12:35 AM CDT Madiha Castro M.D. LAB BLOOD ADD-ON Performing Organization Address City/[facility]/ZIP Code Phon e Number [facility] - [address] [place], [place] [address] [place] [address] (ABNORMAL) Sodium (01/12/2022 4:17 PM CDT) athologist Signature Sodium, P 130 (L) 135 - 145 01/12/2022 [facility] mmol/L 4:37 PM CDT Specimen Anatomical Collection Method Collection Time Receive d Time (Source) Location / / Volume Laterality Blood (Blood, 01/12/2022 4:17 01/12/2022 Venous) PM CDT 4:25 PM CDT Madiha Castro M.D. LAB BLOOD ADD-ON Performing Organization Address City/State/ZIP Code Phon e Number [facility] - [address] [place], [place] [address] [facility] [place] [address] (ABNORMAL) Basic Metabolic Panel (01/12/2022 4:35 AM CDT) athologist Signature Potassium, S 4.0 3.6 - 5.2 01/12/2022 DTL mmol/L 5:21 AM CDT Sodium, S 133 (L) 135 - 145 01/12/2022 DTL mmol/L 5:21 AM CDT Chloride, S 99 98 - 107 01/12/2022 DTL mmol/L 5:21 AM CDT Bicarbonate, S 25 22 - 29 01/12/2022 DTL mmol/L 5:21 AM CDT Anion Gap 9 7 - 15 01/12/2022 DTL 5:21 AM CDT BUN (Blood 10 6 - 21 01/12/2022 DTL Urea mg/dL 5:21 AM CDT Nitrogen), S Creatinine, S 0.70 0.59 - 01/12/2022 DTL 1.04 mg/dL 5:21 AM CDT eGFR-Non >90 >=60 01/12/2022 DTL Black/ mL/min/BSA 5:21 AM CDT Malagasy Comment: ----ADDITIONAL INFORMATION---- Estimated GFR calculated using the 2009 CKD_EPI creatinine equation. eGFR-Black/ >90 >=60 mL/min/BSA 2021 5:21 AM CDT DTL Comment: ----ADDITIONAL INFORMATION---- Estimated GFR calculated using the 2009 CKD_EPI creatinine equation. Calcium, Total, S 9.0 8.6 - 10.0 mg/dL 01/12/2022 5:2 1 AM CDT DTL Glucose, S 103 70 - 140 mg/dL 01/12/2022 5:21 AM CDT DTL Specimen Anatomical Collection Method Collection Time Receive d Time (Source) Location / / Volume Laterality Blood (Blood, 01/12/2022 4:35 01/12/2022 Venous) AM CDT 5:06 AM CDT Madiha Castro M.D. LAB BLOOD ADD-ON Performing Organization Address City/State/ZIP Code Phon e Number [facility] - [address] [place], [place] [address] [facility] [place] [address] Laboratories-[facility] [address] (ABNORMAL) Basic Metabolic Panel (01/11/2022 8:54 PM CDT) P athologist Signature Potassium, S 4.2 3.6 - 5.2 01/11/2022 DTL mmol/L 10:49 PM CDT Sodium, S 135 135 - 145 01/11/2022 DTL mmol/L 10:49 PM CDT Chloride, S 97 (L) 98 - 107 01/11/2022 DTL mmol/L 10:49 PM CDT Bicarbonate, S 25 22 - 29 01/11/2022 DTL mmol/L 10:49 PM CDT Anion Gap 13 7 - 15 01/11/2022 DTL 10:49 PM CDT BUN (Blood Urea 12 6 - 21 01/11/2022 DTL Nitrogen), S mg/dL 10:49 PM CDT Creatinine, S 0.72 0.59 - 01/11/2022 DTL 1.04 mg/dL 10:49 PM CDT eGFR-Non >90 >=60 01/11/2022 DTL Black/ mL/min/BSA 10:49 PM CDT Malagasy Comment: ----ADDITIONAL INFORMATION---- Estimated GFR calculated using the 2009 CKD_EPI creatinine equation. eGFR-Black/ >90 >=60 mL/min/BSA 2021 10:49 PM CDT DTL Comment: ----ADDITIONAL INFORMATION---- Estimated GFR calculated using the 2009 CKD_EPI creatinine equation. Calcium, Total, S 9.1 8.6 - 10.0 mg/dL 01/11/2022 10:4 9 PM CDT DTL Glucose, S 98 70 - 140 mg/dL 01/11/2022 10:49 PM CDT DTL Specimen Anatomical Collection Method Collection Time Receive d Time (Source) Location / / Volume Laterality Blood (Blood, 01/11/2022 8:54 01/11/2022 Venous) PM CDT 9:29 PM CDT Madiha Castro M.D. LAB BLOOD ADD-ON Performing Organization Address City/State/ZIP Code Phon e Number [facility] - [address] [place], [place] [address] [facility] [place] [address] [facility] [address] SW EEG ROUTINE (01/11/2022 1:29 PM CDT) Specimen [...] Code Phon e Number MMODAL MMODAL NA Basic Metabolic Panel (01/11/2022 7:12 AM CDT) P athologist Signature Potassium, S 4.1 3.6 - 5.2 01/11/2022 DTL mmol/L 8:15 AM CDT Sodium, S 140 135 - 145 01/11/2022 DTL mmol/L 8:15 AM CDT Chloride, S 103 98 - 107 01/11/2022 DTL mmol/L 8:15 AM CDT Bicarbonate, S 26 22 - 29 01/11/2022 DTL mmol/L 8:15 AM CDT Anion Gap 11 7 - 15 01/11/2022 DTL 8:15 AM CDT BUN (Blood Urea 12 6 - 21 01/11/2022 DTL Nitrogen), S mg/dL 8:15 AM CDT Creatinine, S 0.82 0.59 - 1.04 01/11/2022 DTL mg/dL 8:15 AM CDT eGFR-Non 83 >=60 01/11/2022 DTL Black/ mL/min/BSA 8:15 AM CDT Malagasy Comment: ----ADDITIONAL INFORMATION---- Estimated GFR calculated using the 2009 CKD_EPI creatinine equation. eGFR-Black/ >90 >=60 mL/min/BSA 2021 8:15 AM CDT DTL Comment: ----ADDITIONAL INFORMATION---- Estimated GFR calculated using the 2009 CKD_EPI creatinine equation. Calcium, Total, S 8.8 8.6 - 10.0 mg/dL 01/11/2022 8:1 5 AM CDT DTL Glucose, S 106 70 - 140 mg/dL 01/11/2022 8:15 AM CDT DTL Specimen Anatomical Collection Method Collection Time Receive d Time (Source) Location / / Volume Laterality Blood 01/11/2022 7:12 01/11/2022 AM CDT 7:57 AM CDT Madiha Castro M.D. LAB BLOOD ADD-ON Performing Organization Address City/[facility] Phon e Number [address] [address] [facility] [address] Sodium (01/10/2022 8:14 PM CDT) P athologist Signature Sodium, P 139 135 - 145 01/10/2022 [facility] mmol/L 8:30 PM CDT Specimen Anatomical Collection Method Collection Time Receive d Time (Source) Location / / Volume Laterality Blood (Blood, 01/10/2022 8:14 01/10/2022 Venous) PM CDT 8:20 PM CDT Madiha Castro M.D. LAB BLOOD ADD-ON Performing Organization Address City/[facility] Phon e Number [place] [phone] Patient Status (01/10/2022 2:06 PM CDT) P athologist Signature Temperature 36.0 37.0 deg C 01/10/2022 STMA 2:06 PM CDT FIO2 0.50 0.21=AIR 01/10/2022 [facility]MA 2:06 PM CDT Specimen Anatomical Collection Method Collection Time Receive d Time (Source) Location / / Volume Laterality Blood 01/10/2022 2:06 01/10/2022 PM CDT 2:06 PM CDT Eileen Amezquita POWER AND RECOVERY SUPERVISOR, SUPERINTENDENT TRACK, MNA LAB BLOOD NON ADD-ON Performing Organization Address City/[facility] Phon e Number [facility] - [address] [place], [place] [address] [place] [address] [facility] [address] Glucose, Whole Blood (01/10/2022 2:06 PM CDT) athologist Signature Glucose 118 70 - 140 01/10/2022 STMA mg/dL 2:10 PM CDT Specimen Anatomical Collection Method Collection Time Receive d Time (Source) Location / / Volume Laterality Blood (Blood, 01/10/2022 2:06 01/10/2022 Arterial Line) PM CDT 2:06 PM CDT Ana Vaz M.D. LAB BLOOD TROPONIN Performing Organization Address City/[facility]/ZIP Code Phon e Number [facility] - [address] [place], [place] [address] [facility] [place] [address] [facility] [address] Potassium, Blood (01/10/2022 2:06 PM CDT) athologist Signature Potassium, B 4.1 3.6 - 5.2 01/10/2022 [facility] mmol/L 2:10 PM CDT Specimen Anatomical Collection Method Collection Time Receive d Time (Source) Location / / Volume Laterality Blood (Blood, 01/10/2022 2:06 01/10/2022 Arterial Line) PM CDT 2:06 PM CDT Ana Vaz M.D. LAB BLOOD NON ADD-ON Performing Organization Address City/State/ZIP Code Phon e Number [facility] - [address] [place], [place] [address] [facility] [place] [address] [facility] [address] Sodium, B (01/10/2022 2:06 PM CDT) athologist Signature Sodium, B 138 135 - 145 01/10/2022 [facility] mmol/L 2:10 PM CDT Specimen Anatomical Collection Method Collection Time Receive d Time (Source) Location / / Volume Laterality Blood (Blood, 01/10/2022 2:06 01/10/2022 Arterial Line) PM CDT 2:06 PM CDT Ana Vaz M.D. LAB BLOOD NON ADD-ON Performing Organization Address City/[facility] Code Phon e Number [facility] - [address] [place], [place] [address] [place] [address] Laboratories-[address] Calcium, Ionized (01/10/2022 2:06 PM CDT) athologist Signature Calcium, 4.95 4.65 - 5.30 01/10/2022 [facility] Ionized, B mg/dL 2:10 PM CDT Specimen Anatomical Collection Method Collection Time Receive d Time (Source) Location / / Volume Laterality Blood (Blood, 01/10/2022 2:06 01/10/2022 Arterial Line) PM CDT 2:06 PM CDT Ana Vaz M.D. LAB BLOOD NON ADD-ON Performing Organization Address City/[facility] Phon e Number [facility] - [address] [place], [place] [address] [place] [address] (ABNORMAL) Blood Gas with Coox, Arterial (01/10/2022 2:06 PM CDT) athologist Signature pO2 168 (H) 83 - [...] LAB BLOOD NON ADD-ON Performing Organization Address City/[facility] Phon e Number [address] [address] [address] [place], [place] [id number] [place] [address] Sodium, B (01/10/2022 12:21 PM CDT) athologist Signature Sodium, B CANCELED 135 - 145 01/10/2022 [facility] mmol/L 8:14 PM CDT Comment: REVISED RESULTS ----PREVIOUSLY REPORTED ---- 138, Flagged as: Normal (Reported 01/10/2022 12:24) Specimen Anatomical Collection Method Collection Time Receive d Time (Source) Location / / Volume Laterality Blood 01/10/2022 12:21 01/10/2022 PM CDT 12:21 PM CDT Narrative [facility] - 01/10/2022 8:14 PM CDT Sodium, B was cancelled on 01/10/2022 at 20:14; RBS update. Eileen Amezquita POWER AND RECOVERY SUPERVISOR, SUPERINTENDENT TRACK, MNA LAB BLOOD NON ADD-ON Performing Organization Address City/[facility] Phon e Number [facility] [address] [place], [place] [address] [place] [address] Patient Status (01/10/2022 12:21 PM CDT) P athologist Signature FIO2 0.50 0.21=AIR 01/10/2022 12:21 [facility] PM CDT Specimen Anatomical Collection Method Collection Time Receive d Time (Source) Location / / Volume Laterality Blood 01/10/2022 12:21 01/10/2022 PM CDT 12:21 PM CDT Eileen Amezquita POWER AND RECOVERY SUPERVISOR, SUPERINTENDENT TRACK, MNA LAB BLOOD NON ADD-ON Performing Organization Address City/[facility]/ZIP [facility] Phon e Number [facility] - [address] [place], [place] [address] [place] [address] [facility] [address] Glucose, Whole Blood (01/10/2022 12:21 PM CDT) athologist Signature Glucose 136 70 - 140 01/10/2022 [facility] mg/dL 12:24 PM CDT Specimen Anatomical Collection Method Collection Time Receive d Time (Source) Location / / Volume Laterality Blood (Blood, 01/10/2022 12:21 01/10/2022 Arterial Line) PM CDT 12:21 PM CDT Ana Vaz M.D. LAB BLOOD TROPONIN Performing Organization Address City/[facility]/ZIP [facility] Phon e Number [facility] - [address] [place], [place] [address] [place] [address] [facility] [address] Potassium, Blood (01/10/2022 12:21 PM CDT) athologist Signature Potassium, B 3.8 3.6 - 5.2 01/10/2022 [facility] mmol/L 12:24 PM CDT Specimen Anatomical Collection Method Collection Time Receive d Time (Source) Location / / Volume Laterality Blood (Blood, 01/10/2022 12:21 01/10/2022 Arterial Line) PM CDT 12:21 PM CDT Ana Vaz M.D. LAB BLOOD NON ADD-ON Performing Organization Address City/[facility]/ZIP [facility] Phon e Number [facility] - [address] [place], [place] [address] [place] [id number] [place] [address] Calcium, Ionized (01/10/2022 12:21 PM CDT) athologist Signature Calcium, 5.01 4.65 - 5.30 01/10/2022 [facility] Ionized, B mg/dL 12:24 PM CDT Specimen Anatomical Collection Method Collection Time Receive d Time (Source) Location / / Volume Laterality Blood (Blood, 01/10/2022 12:21 01/10/2022 Arterial Line) PM CDT 12:21 PM CDT Ana Vaz M.D. LAB BLOOD NON ADD-ON Performing Organization Address City/[facility]/ZIP Code Phon e Number [facility] - [address] [place], [place] [address] [facility] [place] [address] [facility] [address] [facility] (ABNORMAL) Blood Gas with Coox, Arterial (01/10/2022 12:21 PM CDT) P athologist Signature pO2 143 (H) 83 - 108 01/10/2022 [facility] mm Hg 12:24 PM CDT pCO2 31 (L) 32 - 45 mm 01/10/2022 [facility] Hg 12:24 PM CDT pH 7.51 (H) 7.35 - 01/10/2022 [facility] 7.45 pH 12:24 PM CDT Base Excess 1 -2 - 3 01/10/2022 [facility] mmol/L 12:24 PM CDT HCO3 25 22 - 26 01/10/2022 [facility] mmol/L 12:24 PM CDT Hemoglobin, B 11.1 (L) 11.6 - 01/10/2022 [facility] 15.0 g/dL 12:24 PM CDT O2Hb 97.3 94.0 - 01/10/2022 [facility] 98.0 % 12:24 PM CDT COHb 1.1 <3.0 % 01/10/2022 [facility] 12:24 PM CDT MetHb 1.2 <1.5 % 01/10/2022 [facility] 12:24 PM CDT CtO2 15.5 (L) 18.0 - 01/10/2022 [facility] 21.0 vol % 12:24 PM CDT Specimen Anatomical Collection Method Collection Time Receive d Time (Source) Location / / Volume Laterality Blood (Blood, 01/10/2022 12:21 01/10/2022 Arterial Line) PM CDT 12:21 PM CDT Ana Vaz M.D. LAB BLOOD NON ADD-ON Performing Organization Address City/State/ZIP Code Phon e Number [facility] - [address] [place], [place] [address] [place] [address] Laboratories-[facility] [address] Surgical Pathology, Frozen Lab (01/10/2022 12:03 PM CDT) Component Value Ref Test Analysis Performed At [facility] Range Method Time Signature [facility] PM [facility]T Participated in Kierra Wilson -Pathology Fellow 01/14/2022 [facility] the Lashon Talley M.D.-Pathology Resident 5:24 PM CDT Interpretation Liliam Burr M.D. -Pathology Resident Report Bryanna Sanchez M.D. 01/14/2022 [facility] electronically 5:24 PM CDT signed by I verify that I have examined all relevant slides/materials for the specimen(s) and rendered or confirmed the diagnosis. Seen in consultation with: Felisha Silveira M.D., Ph.D. Frozen A. ??Brain, left temporal lesion, smears: ??High-grade glioma. 01/14/2022 [facility] Intraoperative 5:24 PM CDT Report Signed by Bryanna Sanchez M.D. 01/10/2022 5:19 PM Gross Description A. ??Received fresh labeled left brain temporal lesion is 01/14/2022 [facility] a 5:24 PM CDT 5.9 x 5.3 x 2.8 cm portion of brain with extensive hemorrhage. ??Smears prepared. ??[employer] Teammate tissue submitted for permanent sections. ??A portion of tissue is collected for potential future ancillary studies. ??After clinical evaluation, residual tissue is procured for IRB [id number]. ??Grossed by Lashon Talley M.D.-Pathology Resident. B. ??Received fresh labeled left stereotactic tumor core is a 1.2 x 0.8 x 0.6 cm portion of brain. ??All submitted for permanent sections. ??Grossed by Jose De La Paz, SAMMI[facility] C. ??Received fresh labeled left temporal brain lesion is a 3 x 3 x 0.5 cm aggregate of brain tissue admixed with blood. All submitted for permanent sections. ??After clinical evaluation, residual tissue is procured for IRB [id number]. Grossed by Jose Johnson PA([facility]). D. ??Received fresh within three CUSA traps labeled left temporal brain lesion cusa socks is a 6 x 6 x 1 cm aggregate of friable fragments of brain tissue admixed with blood. ??[employer] Teammate tissue submitted for permanent sections. ??After clinical evaluation, residual tissue is procured for IRB [id number]. ??Grossed by Jose Johnson, SAMMI([facility]). Block Summary A Left brain temporal lesion [...] negative. 2:09 PM CDT Signed by Bryanna Sanchez M.D. 01/15/2022 2:09 PM Comment: REVISED RESULTS Interpretation FINAL DIAGNOSIS 01/15/2022 2:09 PM CDT [facility] A-D. ??Brain, left temporal lesion, resection: Glioblastoma, IDH-wildtype (ELECTRICAL PROSPECTING OBSERVER WHO grade 4), clinically residual. See comment. 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 The biopsy specimen lacked microvascular proliferation and tumor necrosis. By immunohistochemistry, the tumor cells were negative for [id number] and showed retained ATRX expression. 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 Specimen (Source) Anatomical Collection Method Collection Time Re ceived Time Location / / Volume Laterality Tissue (Brain, 01/10/2022 12:03 Left) PM CDT Comment: IRB #[id number] Tissue (Brain, Left) 01/10/2022 2:36 PM CDT Comment: IRB #[id number] Tissue (Brain, Left) 01/10/2022 2:57 PM CDT Comment: IRB #[id number] Tissue (Brain, Left) 01/10/2022 3:07 PM CDT Comment: IRB #[id number] Narrative This result has an attachment that is no t available. Charles Ivey M.D., Ph.D. LAB SURG PATH ORDERABLES Performing Organization Address City/[facility]/ZIP Code Phon e Number [facility] - [address] [place] [address] Patient Status (01/10/2022 11:53 AM CDT) P athologist Signature FIO2 0.50 0.21=AIR 01/10/2022 11:53 [facility] AM CDT Specimen Anatomical Collection Method Collection Time Receive d Time (Source) Location / / Volume Laterality Blood 01/10/2022 11:53 01/10/2022 AM CDT 11:53 AM CDT Eileen Amezquita POWER AND RECOVERY SUPERVISOR, SUPERINTENDENT TRACK, MNA LAB BLOOD NON ADD-ON Performing Organization Address City/State/ZIP Code Phon e Number [facility] - [address] [place], [place] [address] [place] [address] [facility] [address] Glucose, Whole Blood (01/10/2022 11:53 AM CDT) athologist Signature Glucose 135 70 - 140 01/10/2022 [facility] mg/dL 11:55 AM CDT Specimen Anatomical Collection Method Collection Time Receive d Time (Source) Location / / Volume Laterality Blood (Blood, 01/10/2022 11:53 01/10/2022 Arterial Line) AM CDT 11:53 AM CDT Luda Galindo M.D. LAB BLOOD TROPONIN Performing Organization Address City/State/ZIP Code Phon e Number [facility] - [address] [place], [place] [address] [place] [address] [facility] [address] [place] [facility] Pot[facility], Blood (01/10/2022 11:53 AM CDT) athologist Signature Potassium, B 3.8 3.6 - 5.2 01/10/2022 STMA mmol/L 11:55 AM CDT Specimen Anatomical Collection Method Collection Time Receive d Time (Source) Location / / Volume Laterality Blood (Blood, 01/10/2022 11:53 01/10/2022 Arterial Line) AM CDT 11:53 AM CDT Luda Galindo M.D. LAB BLOOD NON ADD-ON Performing Organization Address City/State/ZIP Code Phon e Number [facility] - [address] [place], [place] [address] [facility] [place] [address] [facility] [address] Sodium, B (01/10/2022 11:53 AM CDT) athologist Signature Sodium, B 137 135 - 145 01/10/2022 STMA mmol/L 11:55 AM CDT Specimen Anatomical Collection Method Collection Time Receive d Time (Source) Location / / Volume Laterality Blood (Blood, 01/10/2022 11:53 01/10/2022 Arterial Line) AM CDT 11:53 AM CDT Luda Galindo M.D. LAB BLOOD NON ADD-ON Performing Organization Address City/State/ZIP Code Phon e Number [facility] - [address] [place], [place] [address] [facility] [place] [address] [facility] 200 [facility] Calcium, Ionized (01/10/2022 11:53 AM CDT) athologist Signature Calcium, 4.94 4.65 - 5.30 01/10/2022 STMA Ionized, B mg/dL 11:55 AM CDT Specimen Anatomical Collection Method Collection Time Receive d Time (Source) Location / / Volume Laterality Blood (Blood, 01/10/2022 11:53 01/10/2022 Arterial Line) AM CDT 11:53 AM CDT Luda Galindo M.D. LAB BLOOD NON ADD-ON Performing Organization Address City/State/ZIP Code Phon e Number [facility] - [address] [place] [address] [place] [address] [facility] 200 [facility] (ABNORMAL) Blood Gas with Coox, Arterial (01/10/2022 11:53 AM CDT) athologist Signature pO2 148 (H) 83 - 108 01/10/2022 STMA mm Hg 11:55 AM CDT pCO2 30 (L) 32 - 45 mm 01/10/2022 STMA Hg 11:55 AM CDT pH 7.50 (H) 7.35 - 01/10/2022 STMA 7.45 pH 11:55 AM CDT Base Excess 0 -2 - 3 01/10/2022 STMA mmol/L 11:55 AM CDT HCO3 23 22 - 26 01/10/2022 STMA mmol/L 11:55 AM CDT Hemoglobin, B 11.1 (L) 11.6 - 01/10/2022 STMA 15.0 g/dL 11:55 AM CDT O2Hb 97.7 94.0 - 01/10/2022 STMA 98.0 % 11:55 AM CDT COHb 1.0 <3.0 % 01/10/2022 STMA 11:55 AM CDT MetHb 1.1 <1.5 % 01/10/2022 STMA 11:55 AM CDT CtO2 15.5 (L) 18.0 - 01/10/2022 STMA 21.0 vol % 11:55 AM CDT Specimen Anatomical Collection Method Collection Time Receive d Time (Source) Location / / Volume Laterality Blood (Blood, 01/10/2022 11:53 01/10/2022 Arterial Line) AM CDT 11:53 AM CDT Luda Galindo M.D. LAB BLOOD NON ADD-ON Performing Organization Address City/[facility]/ZIP [facility] Phon e Number [facility] - [address] [place], [place] [address] [place] [address] [facility] [address] Glucose, Whole Blood (01/10/2022 9:02 AM CDT) athologist Signature Glucose 127 70 - 140 01/10/2022 STMA mg/dL 9:04 AM CDT Specimen Anatomical Collection Method Collection Time Receive d Time (Source) Location / / Volume Laterality Blood (Blood, 01/10/2022 9:02 01/10/2022 Arterial Line) AM CDT 9:02 AM CDT Ana Vaz M.D. LAB BLOOD TROPONIN Performing Organization Address City/[facility]/ZIP Code Phon e Number [facility] - [address] [place], [place] [address] [place] [address] [facility] [address] Potassium, Blood (01/10/2022 9:02 AM CDT) athologist Signature Potassium, B 4.1 3.6 - 5.2 01/10/2022 STMA mmol/L 9:04 AM CDT Specimen Anatomical Collection Method Collection Time Receive d Time (Source) Location / / Volume Laterality Blood (Blood, 01/10/2022 9:02 01/10/2022 Arterial Line) AM CDT 9:02 AM CDT Ana Vaz M.D. LAB BLOOD NON ADD-ON Performing Organization Address City/[facility]/ZIP Code Phon e Number [facility] - [address] [place], [place] [address] [place] [address] [facility] [address] (ABNORMAL) Sodium, B (01/10/2022 9:02 AM CDT) athologist Signature Sodium, B 129 (L) 135 - 145 01/10/2022 STMA mmol/L 9:04 AM CDT Specimen Anatomical Collection Method Collection Time Receive d Time (Source) Location / / Volume Laterality Blood (Blood, 01/10/2022 9:02 01/10/2022 Arterial Line) AM CDT 9:02 AM CDT Ana Vaz M.D. LAB BLOOD NON ADD-ON Performing Organization Address [facility] Phon e Number [facility] - [address] [place], [place] [address] [place] [address] Calcium, Ionized (01/10/2022 9:02 AM CDT) P athologist Signature Calcium, 4.89 4.65 - 5.30 01/10/2022 STMA Ionized, B mg/dL 9:04 AM CDT Specimen Anatomical Collection Method Collection Time Receive d Time (Source) Location / / Volume Laterality Blood (Blood, 01/10/2022 9:02 01/10/2022 Arterial Line) AM CDT 9:02 AM CDT Ana Vaz M.D. LAB BLOOD NON ADD-ON Performing Organization Address City/[facility] Phon e Number [facility] - [address] [place], [place] [address] [place] [address] (ABNORMAL) Blood Gas with Coox, Arterial (01/10/2022 9:02 AM CDT) P athologist Signature pO2 217 (H) 83 - 108 01/10/2022 STMA mm Hg 9:04 AM CDT pCO2 31 (L) 32 - 45 mm 01/10/2022 STMA Hg 9:04 AM CDT pH 7.49 (H) 7.35 - 01/10/2022 STMA 7.45 pH 9:04 AM CDT Base Excess 1 -2 - 3 01/10/2022 STMA mmol/L 9:04 AM CDT HCO3 24 22 - 26 01/10/2022 [facility]MA mmol/L 9:04 AM CDT Hemoglobin, B 11.6 11.6 - 01/10/2022 STMA 15.0 g/dL 9:04 AM CDT O2Hb 97.9 94.0 - 01/10/2022 STMA 98.0 % 9:04 AM CDT COHb <1.0 <3.0 % 01/10/2022 STMA 9:04 AM CDT MetHb 1.2 <1.5 % 01/10/2022 STMA 9:04 AM CDT CtO2 16.4 (L) 18.0 - 01/10/2022 STMA 21.0 vol % 9:04 AM CDT Specimen Anatomical Collection Method Collection Time Receive d Time (Source) Location / / Volume Laterality Blood (Blood, 01/10/2022 9:02 01/10/2022 Arterial Line) AM CDT 9:02 AM CDT Ana Vaz M.D. LAB BLOOD NON ADD-ON Performing Organization Address City/[facility] Phon e Number [facility] - [address] [place], [place] [address] [place] [address] [place] [address] [facility] Type and Screen (with reflex Antibody ID) (01/10/2022 8:55 AM CDT) [facility] Method Time Signature ABORh O Neg Not [...] Resulting Agency Comment Drawn in [id number] by [email or web address] Ana Vaz M.D. LAB BLOOD BANK TEST ORDERABL ES Performing Organization Address [facility] Phon e Number [facility] - [address] [place], [place] [address] [facility] [place] [address] (ABNORMAL) Sodium (01/10/2022 6:33 AM CDT) athologist Signature Sodium, S 129 (L) 135 - 145 01/10/2022 DTL mmol/L 7:19 AM CDT Specimen Anatomical Collection Method Collection Time Receive d Time (Source) Location / / Volume Laterality Blood (Blood, 01/10/2022 6:33 01/10/2022 Venous) AM CDT 7:07 AM CDT Madiha Castro M.D. LAB BLOOD ADD-ON Performing Organization Address City/[facility]/ZIP Code Phon e Number [facility] - [address] [place], [place] [address] [place] [address] [facility] [address] (ABNORMAL) Sodium (01/10/2022 12:57 AM CDT) athologist Signature Sodium, S 130 (L) 135 - 145 01/10/2022 DTL mmol/L 1:43 AM CDT Specimen Anatomical Collection Method Collection Time Receive d Time (Source) Location / / Volume Laterality Blood (Blood, 01/10/2022 12:57 01/10/2022 Venous) AM CDT 1:26 AM CDT Madiha Castro M.D. LAB BLOOD ADD-ON Performing Organization Address City/[facility]/ZIP Code Phon e Number [facility] - [address] [place], [place] [address] [place] [address] [facility] [address] Osmolality, Urine (01/09/2022 9:35 PM CDT) athologist Signature Osmolality, U 707 150 - 1150 01/09/2022 DTL mOsm/kg 10:42 PM CDT Specimen Anatomical Collection Method Collection Time Receive d Time (Source) Location / / Volume Laterality Urine (Urine, 01/09/2022 9:35 01/09/2022 Catheter) PM CDT 10:12 PM CDT Madiha Castro M.D. LAB URINE ORDERABLES Performing Organization Address City/[facility]/ZIP [facility] Phon e Number [facility] - [address] [place], [place] [address] [place] [address] [facility] [address] Sodium, Random, Urine (01/09/2022 9:35 PM CDT) athologist Signature Sodium, Random, 201 mmol/L 01/10/2022 DT U 1:10 AM CDT Comment: ----REFERENCE VALUE---- [...] City/State/ZIP Code Phon e Number [facility] - [address] [place], [place] [address] [facility] [place] [address] [facility] 200 [facility] (ABNORMAL) Basic Metabolic Panel (01/09/2022 8:01 PM CDT) athologist Signature Potassium, P 4.1 3.6 - 5.2 01/09/2022 STMA mmol/L 8:26 PM CDT Sodium, P 130 (L) 135 - 145 01/09/2022 STMA mmol/L 8:26 PM CDT Chloride, P 95 (L) 98 - 107 01/09/2022 STMA mmol/L 8:26 PM CDT Bicarbonate, P 22 22 - 29 01/09/2022 STMA mmol/L 8:26 PM CDT Anion Gap, P 13 7 - 15 01/09/2022 STMA 8:26 PM CDT BUN (Blood 16 6 - 21 01/09/2022 STMA Urea mg/dL 8:26 PM CDT Nitrogen), P Creatinine, P 0.69 0.59 - 01/09/2022 STMA 1.04 mg/dL 8:26 PM CDT eGFR-Black/Afr >90 >=60 01/09/2022 STMA ican Malagasy mL/min/BSA 8:26 PM CDT Comment: ----ADDITIONAL INFORMATION---- Estimated GFR calculated using the 2009 CKD_EPI creatinine equation. eGFR Non-Black/ >90 >=60 mL/min/BSA 01/09/2022 8:26 PM CDT [facility] Comment: ----ADDITIONAL INFORMATION---- Estimated GFR calculated using the 2009 CKD_EPI creatinine equation. Calcium, Total, P 9.4 8.6 - 10.0 mg/dL 01/09/2022 8:2 6 PM CDT STMA Glucose, P 146 (H) 70 - 140 mg/dL 01/09/2022 8:26 PM CDT STMA Specimen Anatomical Collection Method Collection Time Receive d Time (Source) Location / / Volume Laterality Blood (Blood, 01/09/2022 8:01 01/09/2022 Venous) PM CDT 8:09 PM CDT Madiha Castro M.D. LAB BLOOD ADD-ON Performing Organization Address City/State/ZIP Code Phon e Number [facility] - [address] [place], [place] [address] [place] [address] [facility] [address] [facility] SARS Coronavirus 2, RNA, Rapid POC, V Asymptomatic (01/09/2022 7:24 PM CDT) [facility] Method Time Signature SARS Undetected Undetected 01/09/2022 DTLR Coronavirus-2 7:47 PM CDT , RNA, Rapid POC, V Comment: Negative for SARS-CoV-2. The [employer] COVID-19 test is a molecular watson t for SARS-CoV-2, the virus that causes COVID- 19. A Negative result means that the [facility] COV ID-19 test did not detect SARS-CoV-2 virus in your sample. [employer] [employer] COVID-19 test uses the [employer] Mo nitoring System. This test has received Emergency Use Authorization (EUA) by the U.S. Food and Drug Administration (FDA) and is used per man ufacturer instructions. Performance characteristic s were verified by [facility] in a manner consistent with CLIA requirements. Fact sheets for this Emerg ency Use Authorization (EUA) can be found at the following links: Providers: [email or web address] [email or web address].pdf Patients: [email or web address] SARS Coronavirus 2, Source Nasopharynx DEFAULT 01/09/2022 7:47 PM CDT DTLR Specimen Anatomical Collection Method Collection Time Receive d Time (Source) Location / / Volume Laterality Varies 01/09/2022 7:24 01/09/2022 (Nasopharynx) PM CDT 7:24 PM CDT Christina Tai P.A.-C., M.S. LAB MICROBIOLOGY - GENERAL ORDERABLES Performing Organization Address City/[facility] Phon e Number PERFORMING LABS, [place] [address] INTERFACE Ref Interface [address] [facility] DTLR Performing Labs, [place] [address] Interface [address] [facility] (ABNORMAL) CBC without Differential (01/09/2022 6:05 PM CDT) [facility] gist Method Time Signature Hemoglobin 12.2 11.6 - [...] M.S. LAB BLOOD ADD-ON Performing Organization Address City/State/[facility] Code Phon e Number [facility] - [address] [place], [place] [address] [facility] [place] [address] [facility] [address] [facility] Hemoglobin A1c (01/09/2022 5:58 PM CDT) P athologist Signature Hemoglobin A1c, 5.1 4.0 - 5.6 01/09/2022 DTL B % 7:58 PM CDT Specimen Anatomical Collection Method Collection Time Receive d Time (Source) Location / / Volume Laterality Blood (Blood, 01/09/2022 5:58 01/09/2022 Venous) PM CDT 7:40 PM CDT Marysol Martinez M.D. LAB BLOOD ADD-ON Performing Organization Address City/State/ZIP Code Phon e Number [facility] - [address] [place], [place] [address] [facility] [place] [address] 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) Change Mental Status Abnormal Gait Non Orthopedic Concern Patient Cognition Function Deficit Cognitive Communication Decline Cognitive documented in this encounter Admitting Diagnoses Diagnosis Tumor Brain (HCC) Malignant Neoplasm Of Brain (HCC) documented in this encounter Administered Medications Inactive Administered Medications - up to 3 most recent administrations Medication Order MAR Action Action Date Dose Rate Site acetaminophen injection 1,000 New Bag 01/09/2022 9:11 PM 1,000 mg 400 mL/hr mg CDT 1,000 mg, intravenous, at 400 mL/hr, Administer over 15 Minutes, Once, On Fri01/09/22 at 2015, For 1 dose, Restriction Criteria (Pharmacy will review and approve if criteria met): Unable to take or tolerate medications administered via the enteral route or orally (not just NPO) acetaminophen injection 1,000 mg New Bag 01/10/2022 10:04 PM CDT 1,000 mg 400 mL/hr 1,000 mg, intravenous, at 400 mL/hr, Administer over 15 Minutes, Once, On Fri01/10/22 at 2200, For 1 dose, Restriction Criteria (Pharmacy will review and approve if criteria met): Unable to take or tolerate medications administered via the enteral route or orally (not just NPO) acetaminophen tablet 1,000 mg (TYLENOL) Given 01/09/2022 6:07 PM CDT 1,000 mg 1,000 mg, oral, Every 6 hours scheduled, First dose on Fri01/09/22 at 1800 acetaminophen tablet 1,000 mg (TYLENOL) Given 01/17/2022 11:33 AM CDT 1,000 mg 1,000 mg, oral, Every 6 hours, First dose (after last modification) on Fri01/11/22 at 0600, If patient tolerating oral fluids or has a gastric tube, discontinue injectable opioid and begin this order Given 01/17/2022 6:22 AM CDT 1,000 mg Given 01/17/2022 12:10 AM CDT 1,000 mg benzocaine-menthoL 15-3.6 mg per lozenge 1 lozenge (CEPACOL) 1 lozenge, oral, As needed, sore throat, throat irritation, Starting on Fri01/10/22 at 1951 bisacodyL suppository 10 mg (DULCOLAX) 10 mg, rectal, Daily PRN, constipation, Starting on Fri01/10/22 at 195, Ordered sequence of administration: polyethylen e glycol, then bisacodyl until BM achieved. calcium carbonate chewable tablet 400 mg of calcium (TUMS) 400 mg of calcium, oral, Every 4 hours P RN, heartburn, indigestion, Starting on Fri01/10/22 at 1952, Doses listed are in mg of elemental calcium. Take with food. 500 mg calcium carbonate contains 200 mg of elemental calc ium. carboxymethylcellulose 0.5 % ophthalmic solution 1 drop (REFRESH PLUS) 1 drop, both eyes, Every 1 hour PRN, dry eyes, OK to give either or both eyes, as required, Starting on Fri01/12/22 at 1610 ceFAZolin in dextrose (iso-os) IVPB 2 New Bag 01/11/2022 6:00 AM CDT 2 g 200 mL/hr g (ANCEF) 2 g, intravenous, at 200 mL/hr, Administer over 30 Minutes, Every 8 hours, First dose on Fri01/10/22 at 2300, For 2 doses, Start within 8 hours of last IV dose., Drug Monitoring Program: Pharmacist to adjust medication dosing based on indication and drug clearance factors., Indications: Prophylaxis, surgical New Bag 01/10/2022 10:15 PM CDT 2 g 200 mL/hr dexAMETHasone injection 4 mg (DECADRON) Given 01/10/2022 2:36 AM CDT 4 mg 4 mg, intravenous, Every 8 hours, First dose on Fri01/09/22 at 1800 Given 01/09/2022 6:07 PM CDT 4 mg dexAMETHasone injection 4 mg (DECADRON) Given 01/12/2022 4:43 AM CDT 4 mg 4 mg, intravenous, Every 8 hours, First dose (after last modification) on Fri01/10/22 at 2130 Given 01/11/2022 9:05 PM CDT 4 mg Given 01/11/2022 12:35 PM CDT 4 mg dexAMETHasone tablet 1 mg (DECADRON) 1 mg, oral, Every 6 hours, First dose on Fri01/23/22 at 0430, For 4 days dexAMETHasone tablet 2 mg (DECADRON) 2 mg, oral, Every 6 hours, First dose on Fri01/19/22 a t 0430, For 4 days dexAMETHasone tablet 3 mg (DECADRON) Given 01/17/2022 9:11 AM CDT 3 mg 3 mg, oral, Every 6 hours, First dose on Fri01/15/22 at 0430, For 4 days Given 01/17/2022 4:02 AM CDT 3 mg Given 01/16/2022 9:37 PM CDT 3 mg dexAMETHasone tablet 4 mg (DECADRON) Given 01/14/2022 9:42 PM CDT 4 mg 4 mg, oral, Every 6 hours, First dose on 01/12/22 at 1030, For 3 days Given 01/14/2022 4:08 PM CDT 4 mg Given 01/14/2022 9:44 AM CDT 4 mg fentaNYL injection 25 mcg (SUBLIMAZE) Given 01/11/2022 5:07 AM CDT 25 mcg 25 mcg, intravenous, Every 3 hours PRN, severe pain or score 7-10 of 10, Starting on Bee 01/10/22 at 1952, For breakthrough pain unrelieved 30 minutes after PRN pain medication is used. May administer IV pain medication concurrently with PRN oral medication if pain is greater than or equal to 7 in order to provide immediate relief. Given 01/10/2022 8:26 PM CDT 25 mcg iohexoL 350 mg iodine/mL solution 1-200 mL Given 01/13/2022 3:22 PM CDT 100 mL (OMNIPAQUE) 1-200 mL, intravenous, Once in imaging, contrast, Starting on [place] 01/13/22 at 1451, For 1 dose, Imaging Protocol Orders, Dose per Radiant Medication Guidelines ketorolac injection 15 mg (TORADOL) Given 01/13/2022 8:21 AM CDT 15 mg 15 mg, intravenous, Every 6 hours, First dose on 01/12/22 at 0900, For 5 doses, Adult IV push rate: Over 15 seconds. Peds IV push rate: Over 1 minute. 60 mg dose only for IM, not recommended for IV., Drug Monitoring Program: Pharmacist to adjust medication dosing based on indication and drug clearance factors. Given 01/13/2022 2:57 AM CDT 15 mg Given 01/12/2022 8:32 PM CDT 15 mg labetalol injection 10 mg (NORMODYNE,TRA NDATE) 10 mg, intravenous, Every 3 hours PRN, h igh blood pressure, see admin instructions, Starting on Bee 01/10/22 at 1952, MCR onl y: use in ICU/PCU only All sites: Do not give if heart rate is less than 60 bpm. Keep systolic blood pressure less than 160 mmHg. Notify prescriber if systolic bloo d pressure remains greater than indicated limit after 3 doses. lactated ringers New Bag 01/10/2022 8:15 PM CDT 100 mL/hr 100 mL/hr 100 mL/hr, intravenous, Continuous, Starting on Bee 01/10/22 at 1615, PACU & Post-Op levETIRAcetam in NaCl (iso-os) New Bag 01/09/2022 10:18 PM CDT 1,000 mg 400 mL/hr IVPB 1,000 mg (KEPPRA) 1,000 mg, intravenous, at 400 mL/hr, Administer over 15 Minutes, Once, On 01/09/22 at 2045, For 1 dose, Drug Monitoring Program: Pharmacist to adjust medication dosing based on indication and drug clearance factors. levETIRAcetam in NaCl (iso-os) New Bag 01/10/2022 9:33 PM CDT 1,000 mg 400 mL/hr IVPB 1,000 mg (KEPPRA) 1,000 mg, intravenous, at 400 mL/hr, Administer over 15 Minutes, Once, On Bee 01/10/22 at 2100, For 1 dose, Drug Monitoring Program: Pharmacist to adjust medication dosing based on indication and drug clearance factors. levETIRAcetam in NaCl (iso-os) New Bag 01/13/2022 4:47 PM CDT 1,000 mg 400 mL/hr IVPB 1,000 mg (KEPPRA) 1,000 mg, intravenous, at 400 mL/hr, Administer over 15 Minutes, Once, On 01/13/22 at 1530, For 1 dose, Drug Monitoring Program: Pharmacist to adjust medication dosing based on indication and drug clearance factors. levETIRAcetam tablet 1,000 mg (KEPPRA) Given 01/11/2022 9:05 PM CDT 1,000 mg 1,000 mg, oral, 2 times daily, First dose on 01/09/22 at 2100 Given 01/11/2022 8:08 AM CDT 1,000 mg levETIRAcetam tablet 1,000 mg (KEPPRA) Given 01/17/2022 9:11 AM CDT 1,000 mg 1,000 mg, oral, 2 times daily, First dose on 01/12/22 at 0900 Given 01/16/2022 9:38 PM CDT 1,000 mg Given 01/16/2022 9:01 AM CDT 1,000 mg magnesium citrate solution 148 mL (CITRO MA) Given 01/14/2022 1:52 PM CDT 148 mL 148 mL, oral, Once, On Fri01/14/22 at 1200, For 1 dose magnesium hydroxide suspension 30 mL (MILK OF Given 9:47 AM CDT 30 mL MAGNESIA) 30 mL, oral, Once, On Fri01/14/22 at 0615, For 1 dose methocarbamoL tablet 750 mg (ROBAXIN) Given 01/16/2022 5:06 AM CDT 750 mg 750 mg, oral, Every 6 hours PRN, muscle spasms, Starting on Fri01/12/22 at 0922 NaCl 0.9% infusion Rate/Dose Verify 01/11/2022 6:00 AM 100 mL/hr 100 mL/hr 100 mL/hr, intravenous, CDT Continuous, Starting on Bee 01/10/22 at 2045, For 10 hours Rate/Dose Verify 01/11/2022 5:00 AM CDT 100 mL/hr 100 mL/hr Rate/Dose Verify 01/11/2022 4:00 AM CDT 100 mL/hr 100 mL/hr NaCl 0.9% infusion Rate/Dose Verify 01/12/2022 7:00 AM 100 mL/hr 100 mL/hr 100 mL/hr, intravenous, CDT Continuous, Starting on Fri01/11/22 at 2145, For 10 hours Rate/Dose Verify 01/12/2022 6:00 AM CDT 100 mL/hr 100 mL/hr Rate/Dose Verify 01/12/2022 5:00 AM CDT 100 mL/hr 100 mL/hr naloxone injection 0.2 mg (NARCAN) 0.2 mg, intravenous, As needed, respirat ory depression, Starting on Bee 01/10/22 at 1952, For respiratory rate less than 8 b reaths per minute or RASS score of -3, -4, -5. Apply oxygen to keep oxygen saturati ons greater than 90% and notify service. ondansetron (PF) injection 4 mg (ZOFRAN) Given 01/10/2022 12:28 AM CDT 4 mg 4 mg, intravenous, Every 6 hours PRN, nausea, vomiting, Starting on Fri01/09/22 at 1759 Given 01/09/2022 6:07 PM CDT 4 mg ondansetron (PF) injection 4 mg (ZOFRAN) Given 01/12/2022 3:49 PM CDT 4 mg 4 mg, intravenous, Every 6 hours PRN, nausea, vomiting, Starting on Fri01/10/22 at 1952, For 48 hours, Reassess for nausea or vomiting after at least 10 minutes. If nausea or vomiting persists administer next ordered antiemetic medications (order for antiemetic medication administration ondansetron then haloperidol then promethazine). Given 01/11/2022 8:46 AM CDT 4 mg oxyCODONE IR tablet 10 mg (ROXICODONE) Given 01/09/2022 6:07 PM CDT 10 mg 10 mg, oral, Every 4 hours PRN, severe pain or score 7-10 of 10, Starting on Fri01/09/22 at 1630 oxyCODONE IR tablet 10 mg (ROXICODONE) Given 01/12/2022 1:37 PM CDT 10 mg 10 mg, oral, Every 4 hours PRN, severe pain or score 7-10 of 10, or for pain greater than comfort goal, Starting on Fri01/10/22 at 1952 Given 01/12/2022 9:34 AM CDT 10 mg Given 01/11/2022 8:07 AM CDT 10 mg oxyCODONE IR tablet 5 mg (ROXICODONE) Given 01/16/2022 9:04 AM CDT 5 mg 5 mg, oral, Every 4 hours PRN, moderate pain or score 4-6 of 10, Starting on Fri01/10/22 at 1952 Given 01/12/2022 5:16 AM CDT 5 mg Given 01/12/2022 1:07 AM CDT [address] tablet 40 mg (PROTONIX) Given 01/17/2022 6:22 AM CDT 40 mg 40 mg, oral, Daily before breakfast, First dose on 01/13/22 at 0700, Swallow whole. Do NOT crush, chew, or split tablet. Given 01/16/2022 6:07 AM CDT 40 mg Given 01/15/2022 6:16 AM CDT 40 mg pantoprazole injection 40 mg (PROTONIX) Given 01/12/2022 9:44 AM CDT 40 mg 40 mg, intravenous, Every 24 hours scheduled, First dose on Fri01/10/22 at 0900, Administer IV push over 2 minutes. Add 10 mL NS to 40 mg vial for a final concentration of 4 mg/mL. Given 01/11/2022 8:08 AM CDT 40 mg polyethylene glycol powder packet 17 g ( MIRALAX) 17 g, oral, Daily PRN, constipation, Starting on Fri at 0557, Ordered sequence of administration: polyethylene glycol, then bisacodyl until BM achieved. Avoid mixing with starch-based thickened liquids. prochlorperazine injection 10 mg (COMPAZ INE) Given 01/10/2022 7:28 AM CDT 10 mg 10 mg, intravenous, Every 6 hours, First dose on Fri01/09/22 at 2000 Given 01/10/2022 2:36 AM CDT 10 mg Given 01/09/2022 8:24 PM CDT 10 mg prochlorperazine injection 10 mg (COMPAZ INE) Given 01/13/2022 6:08 AM CDT 10 mg 10 mg, intravenous, Every 6 hours PRN, nausea, vomiting, Starting on Fri01/10/22 at 2045 scopolamine base 1 mg Medication Applied 01/09/2022 10:10 PM 1 patch Behind Right over 3 days 1 patch CDT Ear (TRANSDERM SCOP) 1 patch, transdermal, Administer over 72 Hours, Every 72 hours, First dose on Fri01/09/22 at 2015, Contains 1.5 mg to deliver 1 mg/72 hours. sennosides-docusate sodium 8.6-50 mg per tablet 1 tablet (SENOKOT-S) 1 tablet, oral, Bedtime PRN, constipation, Starting on Fri01/11/22 at 0600, For constipation. Hold for diarrhea. sodium chloride (PF) 0.9 % injection 1-1 00 mL Given 01/13/2022 3:22 PM CDT 30 mL 1-100 mL, intravenous, Once, On Fri01/13/22 at 1500, For 1 dose, Imaging Protocol Orders sodium chloride 3 % infusion 100 mL New Bag 01/10/2022 12:43 AM CDT 100 mL 50 mL/hr 100 mL, intravenous, at 50 mL/hr, Continuous, Starting on Fri01/09/22 at 2330, Sodium content: 513 mmol/L documented in this encounter Active and Recently Administered Medications Times are shown in CDT. Scheduled Medication Order 01/15/2022 01/16/2022 01/17/2022 acetaminophen tablet 1,000 mg (TYLENOL) 0034 (Given - Provider: Maggie Garces RAquilino)0525 (Given - Provider: Maggie Garces R.N.)1234 (Given - Provider: Tutu QuinteroN.)1709 (Given - Provider: Tutu StallingsNSanjuanita) 0100 (Given - Provider: Tutu RobertsN.)0506 (Given - Provider: Tutu RobertsN.)1235 (Given - Provider: Carisa Quintero.N.)1823 (Given - Provider: Tutu HernandezNSanjuanita) 0010 (Given - Provider: Beryl Hyde R.N.)0622 (Given - Provider: Beryl Orozco R.N.)1133 (Given - Provider: Shilpa Burnette RAquilino) 1,000 mg, oral, Every 6 hours, First dos e (after last modification) on Fri01/11/22 at 0600, If patient tolerating oral fluids or has a gastric tube, discontinue injectable opioid and begin this order dexAMETHasone tablet 1 mg (DECADRON)(Linked Group 1) 1 mg, oral, Every 6 hours, First dose on Fri01/23/22 at 0430, For 4 days dexAMETHasone tablet 2 mg (DECADRON)(Linked Group 1) 2 mg, oral, Every 6 hours, First dose on Fri01/19/22 at 0430, Fo r 4 days dexAMETHasone tablet 3 mg (DECADRON)(Linked Group 1) 0 525 (Given - Provider: Maggie Garces R.N.)0952 (Given - Provider: Tutu QuinteroN.)1648 (Given - Provider: Amelie Gayle R.N.)2140 (Given - Provider: Amelie Gayle R.N.) 0334 (Given - Provider: Luda ramesh R.N.)0902 (Given - Provider: Tutu QuinteroN.)1647 (Given - Provider: Tutu HernandezNSanjuanita)2137 (Given - Provider: Hattie Baldwin R.N.) 0402 (Given - Provider: Beryl Orozco RSanjuanitaN.)0911 (Given - Provider: Shilpa Burnette R.N.) 3 mg, oral, Every 6 hours, First dose on Fri01/15/22 at 0430, Fo r 4 days levETIRAcetam tablet 1,000 mg (KEPPRA) 0952 (Given - P rovider: Shilpa Burnette R.N.)2140 (Given - Provider: Tutu StallingsNSanjuanita) 0901 (Given - Provider: Shilpa Burnette R.N.)2138 (Given - Provider: Hattie Baldwin R.N.) 0911 (Given - Provider: Tutu QuinteroNSanjuanita) 1,000 mg, oral, 2 times daily, First dose on 01/12/[address] tablet 40 mg (PROTONIX) 0616 (Given - Provider: Maggie Garces RSanjuanitaN.) 0607 (Given - Provider: Luda Yu RSanjuanitaN.) 0622 (Given - Provider: Beryl Orozco RSanjuanitaNSanjuanita) 40 mg, oral, Daily before breakfast, Fir st dose on 01/13/22 at 0700, Swallow whole. Do NOT crush, chew, or split tablet. PRN Medication Order 01/15/2022 01/16/2022 01/17/2022 benzocaine-menthoL 15-3.6 mg per lozenge 1 lozenge (CEPACOL) 1 lozenge, oral, As needed, sore throat, throat irritation, Starting on Fri01/10/22 at 1951 bisacodyL suppository 10 mg (DULCOLAX) 10 mg, rectal, Daily PRN, constipation, Starting on Fri01/10/22 at 1951, Ordered sequence of administration: polyethylene glycol, then bisacodyl until BM achieved. calcium carbonate chewable tablet 400 mg of calcium (TUMS) 400 mg of calcium, oral, Every 4 hours P RN, heartburn, indigestion, Starting on Bee 01/10/22 at 1952, Doses listed are in mg of elemental calcium. Take with food. 500 mg calcium carbonate contains 200 mg of elemental calcium. carboxymethylcellulose 0.5 % ophthalmic solution 1 drop (REFRESH PLUS) 1 drop, both eyes, Every 1 hour PRN, dry eyes, OK to give either or both eyes, as required, Starting on 01/12/22 at 1610 labetalol injection 10 mg (NORMODYNE,TRANDATE) 10 mg, intravenous, Every 3 hours PRN, h igh blood pressure, see admin instructions, Starting on Bee 01/10/22 at 1952, MCR only: use in ICU/PCU only All sites: Do not give if heart rate is less than 60 b pm. Keep systolic blood pressure less th an 160 mmHg. Notify prescriber if systolic blood pressure remains greater than indicated limit after 3 doses. methocarbamoL tablet 750 mg (ROBAXIN) 05 06 (Given - Provider: Luda Yu R.N.) 750 mg, oral, Every 6 hours PRN, muscle spasms, Starti ng on 01/12/22 at 0922 naloxone injection 0.2 mg (NARCAN) 0.2 mg, intravenous, As needed, respirat ory depression, Starting on Bee 01/10/22 at 1952, For respiratory rate less than 8 breaths per minute or RASS score of - 3, -4, -5. Apply oxygen to keep oxygen saturations greater than 90% and notify service. oxyCODONE IR tablet 10 mg (ROXICODONE)(Linked Group 2) 0904 (See Alternative - Provider: Shilpa Burnette R.N.) 10 mg, oral, Every 4 hours PRN, severe p ain or score 7-10 of 10, or for pain greater than comfort goal, Starting on Bee 01/10/22 at 1952 oxyCODONE IR tablet 5 mg (ROXICODONE)(Linked Group 2) 0904 (Given - Provider: Shilpa Burnette R.N.) 5 mg, oral, Every 4 hours PRN, moderate pain or score 4-6 of 10, Starting on Bee 01/10/22 at 1952 polyethylene glycol powder packet 17 g (MIRALAX) 17 g, oral, Daily PRN, constipation, Sta rting on Fri01/11/22 at 0557, Ordered sequence of administration: polyethylene glycol, then bisacodyl until BM achieved. Avoid mixing with starch-based thickened liquids. prochlorperazine injection 10 mg (COMPAZINE) 10 mg, intravenous, Every 6 hours PRN, n ausea, vomiting, Starting on Fri01/10/22 at 2045 sennosides-docusate sodium 8.6-50 mg per tablet 1 tablet (SENOKO T-S) 1 tablet, oral, Bedtime PRN, constipatio n, Starting on Fri01/11/22 at 0600, For constipation. Hold for diarrhea. Linked Groups Order Group 1: dexAMETHasone tablet 4 mg (DECADRON) (COMPLETED) 4 mg, oral, Every 6 hours, First dose on Fri01/12/22 at 1030, For 3 days Followed by dexAMETHasone tablet 3 mg (DECADRON)Jump to med 3 mg, oral, Every 6 hours, First dose on Fri01/15/22 at 0430, For 4 days Followed by dexAMETHasone tablet 2 mg (DECADRON)Jump to med 2 mg, oral, Every 6 hours, First dose on Fri01/19/22 at 0430, For 4 days Followed by dexAMETHasone tablet 1 mg (DECADRON)Jump to med 1 mg, oral, Every 6 hours, First dose on Fri01/23/22 at 0430, For 4 days Group 2: oxyCODONE IR tablet 5 mg (ROXICODONE)Jump to med 5 mg, oral, Every 4 hours PRN, moderate pain or score 4-6 of 10, Starting on Fri01/10/22 at 1952 Or oxyCODONE IR tablet 10 mg (ROXICODONE)Jump to med 10 mg, oral, Every 4 hours PRN, severe p ain or score 7-10 of 10, or for pain greater than comfort goal, Starting on Fri01/10/22 at 195 documented in this encounter Additional Health Concerns Infection Onset Date Last Indicated Resolved Time COVID19 Pending 01/09/2022 01/09/2022 01/09/2022 7:47 PM CDT documented as of this encounter
--- OUTSIDE RECORDS SUMMARY | 2022-03-12 14:34 | XMS_ITS | Encounter Summary ---
:1970 Author Organization [facility] Address [address] [place] [address] Care Team Providers Name Role Phone Unavailable Primary Care Provider Unavailable Reason for Referral Outpatient (Routine) - Closed Specialty Diagnoses / Procedures Referred By Contact Refer red To Contact Radiation Oncology Diagnoses Malignant Neoplasm Of Brain (HCC) Norma Link [facility] [address] [place] [address] Referral ID Status Reason Start Date Expiration Date Visits Requ ested Visits Authorized [id number] Closed 01/22/2022 01/22/2023 1 1 Encounter Details Date Type Department Care Team Description 01/22/2022 Orders Only Department of Norma Link Malignant N eoplasm Of Radiation Oncology in [facility] Brain (HCC) (Primary [place], [place] 200 [facility] Dx) 200 [place] [phone] Social History Tobacco Use Types Packs/Day Years [...] or relatives? How often do you attend spiritism or More than 4 times per year 01/07/2022 yarsanism services? Do you belong to any clubs or No 01/07/2022 organizations such as spiritism groups, unions, frafrents or athletic groups, or school groups? How [...] have completed or the highest Maulik, MEd, FLAG FOOTBALL COACH, 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 Sex Assigned at Date Recorded Female 01/07/2022 11:11 AM CDT documented as of this encounter Miscellaneous Notes Addendum Note - Norma Link P.A.-C., M.S. - 01/22/2022 11:17 AM CDT Addended by: NORMA LINK on: 01/22/2022 11:26 AM Modules accepted: Orders documented in this encounter Plan of Treatment Upcoming Encounters Date Type Specialty Care Team Description 03/12/2022 Appointment Radiation Oncology Stephanie Gleason M.D. [address] [place] [phone] 03/12/2022 Appointment Radiation Oncology Stephanie Gleason M.D. [address] [place] [phone] 03/13/2022 Appointment Radiation Oncology Stephanie Gleason M.D. [address] [place] [phone] 03/14/2022 Appointment Radiation Oncology Stephanie Gleason M.D. [address] [place] [phone] 03/25/2022 Ancillary Procedure Ophthalmology Chas Shin M.D. [address] [place] [phone] 03/25/2022 Ancillary Procedure Ophthalmology 03/25/2022 Ancillary Procedure Ophthalmology Chas Shin M.D. [address] [place] [phone] 03/26/2022 Ancillary Procedure Ophthalmology Rebeca Valle P.A.-Rusty., M.S. [address] [place] [phone] 03/26/2022 Comprehensive Visit Ophthalmology Chas Shin M.D. [address] [place] [phone] 03/29/2022 Comprehensive Visit Endocrinology Farzana Allen M.D. [address] [place] [address] [phone] 04/04/2022 Appointment Radiology Christina Tai P.A.-C., M.S. [address] [place] [address] [phone] 04/04/2022 Office Visit Oncology Vini Maki M.D., Ph.D. [address] [place] [address] [phone] 04/04/2022 Office Visit Neurological Surgery Charles Ivey M.D., Ph.D. [address] [place] [address] [phone] 05/03/2022 Comprehensive Visit Clinical Genomics Sanya Mehta M.D. [address] [place] [address] [phone] 05/06/2022 Clinical Communication Admitting/Central Scheduling 05/09/2022 Office Visit Oncology Farzana Allen M.D. 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
--- OUTSIDE RECORDS SUMMARY | 2022-03-12 14:34 | XMS_ITS | Encounter Summary ---
:1970 Author Organization [facility] Address [address] [place] [address] Care Team Providers Name Role Phone Unavailable Primary Care Provider Unavailable Reason for Referral Outpatient (Routine) - Authorized Specialty Diagnoses / Procedures Referred By Contact Refer red To Contact Neurological Surgery Diagnoses Tumor Brain (HCC) Christina Tai [facility] Kobi Henderson, M.S. [address] [place] [phone] Referral ID Status Reason Start Date Expiration Date Visits V isits Requested Authorized [id number] Authorized 01/11/2022 01/11/2023 1 1 Scheduling Instructions 3 mo post surgical follow up; Brain MRI prior RI/CAT/PET Scan (Routine) - Authorized Specialty Diagnoses / Procedures Referred By Contact Refer red To Contact Radiology Diagnoses Tumor Brain (HCC) Christina Tai [facility] Procedures MR Brain Perfusion without and with IV Contrast Kobi, M.S. [address] [place] [phone] Referral ID Status Reason Start Date Expiration Date Visits V isits Requested Authorized [id number] Authorized 01/11/2022 01/11/2023 1 1 Reason for Visit Reason Comments Post Hospital Follow-up Encounter Details Date Type Department Care Team Description 01/11/2022 Clinical [facility] [place], Post Hospital Communication [address] [facility] Christina Henderson, Follow-up [place], [place] PKaruna, M.S. [phone] 200 [place] [phone] Social History Tobacco Use Types Packs/Day Years [...] More than 4 times per year 01/07/2022 holiness services? Do you belong to any clubs [...] have completed or the highest Maulik, MEd, SCRAPER TENDER, 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 Sex Assigned at Date Recorded Female 01/07/2022 11:11 AM CDT documented as of this encounter Plan of Treatment Upcoming Encounters Date Type Specialty Care Team Description 03/12/2022 Appointment Radiation Oncology Stephanie Gleason M.D. [address] [place] [phone] 03/12/2022 Appointment Radiation Oncology Stephanie Gleason M.D. [address] [place] [phone] 03/13/2022 Appointment Radiation Oncology Stephanie Gleason M.D. [address] [place] [phone] 03/14/2022 Appointment Radiation Oncology Stephanie Gleason M.D. [address] [place] [phone] 03/25/2022 Ancillary Procedure Ophthalmology Chas Shin M.D. [address] [place] [phone] 03/25/2022 Ancillary Procedure Ophthalmology 03/25/2022 Ancillary Procedure Ophthalmology Chas Shin M.D. [address] [place] [address] [phone] 03/26/2022 Ancillary Procedure Ophthalmology Rebeca Valle P.A.-C., M.S. [address] [place] [address] [phone] 03/26/2022 Comprehensive Visit Ophthalmology Chas Shin M.D. [address] [place] [address] [phone] 03/29/2022 Comprehensive Visit Endocrinology Farzana Allen M.D. [address] [place] [phone] 04/04/2022 Appointment Radiology Christina Tai P.A.-C., M.S. [address] [place] [phone] 04/04/2022 Office Visit Oncology Vini Maki M.D., Ph.D. [address] [place] [address] [phone] 04/04/2022 Office Visit Neurological Surgery Charles Ivey M.D., Ph.D. [address] [place] [phone] 05/03/2022 Comprehensive Visit Clinical Genomics Sanya Mehta M.D. [address] [place] [phone] 05/06/2022 Clinical Communication Admitting/Central Scheduling 05/09/2022 Office Visit Oncology Farzana Allen M.D. [address] [place] [phone] Scheduled Orders Name Type Priority Associated Diagnoses Order S chedule MR Brain Perfusion Imaging RAD - Routine (most Tumor Brain (HC C) Expected: without and with IV inpatients and all , Contrast outpatients) Expires: 04/13/2023 Scheduled Referrals Name Type Priority Associated Order Schedule Diagnoses Neurological Surgery Outpatient Referral Routine Tumor Brain ( HCC) Expected: office visit (clinic) 2021 (Approximate), Expires: 04/13/2023 documented as of this encounter Visit Diagnoses Diagnosis Tumor Brain (HCC) - Primary documented in this encounter
--- OUTSIDE RECORDS SUMMARY | 2022-03-12 14:34 | XMS_ITS | Encounter Summary ---
:1970 Author Organization [facility] Address [address] [place] [address] Care Team Providers Name Role Phone Unavailable Primary Care Provider Unavailable Reason for Referral Specialty Diagnoses / Procedures Referred By Contact Refer red To Contact Satcy Easley P.A.-C ., M.SSanjuanita [facility] Region [address] [place] [phone] Referral ID Status Reason Start Date Expiration Date Visits Requ ested Visits Authorized Outpatient (Routine) - Authorized Specialty Diagnoses / Procedures Referred By Contact Refer red To Contact Radiation Oncology Stephanie Gleason [facility] M.D. [address] [place] [phone] Referral ID Status Reason Start Date Expiration Date Visits V isits Requested Authorized [id number] Authorized 01/22/2022 01/22/2023 10 10 MRI/CAT/PET Scan (Routine) - Authorized Specialty Diagnoses / Procedures Referred By Contact Refer red To Contact Radiology Diagnoses Malignant Neoplasm Of Brain (HCC) Stephanie Gleason M.D. [facility] Procedures MR Brain without and with IV Contrast [address] [place] [phone] Referral ID Status Reason Start Date Expiration Date Visits V isits Requested Authorized [id number] Authorized 01/22/2022 01/22/2023 1 1 Encounter Details Date Type Department Care Team Description 01/22/2022 Clinical Communication Department of Stephanie Gleason Radiation Oncology in [place] [facility] [address] [facility] [address] [place] [phone] Social History Tobacco Use Types Packs/Day Years [...] or relatives? How often do you attend orthodox or More than 4 times per year 01/07/2022 hoahaoism services? Do you belong to any clubs or No 01/07/2022 organizations such as orthodox groups, unions, fraternal or athletic groups, or [...] have completed or the highest Maulik, MEd, ALUM OPERATOR, 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 Sex Assigned at Date Recorded Female 01/07/2022 11:11 AM CDT documented as of this encounter Miscellaneous Notes Telephone Encounter - Alexandria Austin - 01/22/2022 8:42 AM CDT Caller: Mother - Libby Is there a valid authorization to speak with caller? Yes Primary Radiation Oncologist: Dr. Gleason Reason for call: Libby calling stating that patient had surgery in [place] on 01/[address] Ivey.She stated that per Dr. Ivey patient should have radiation three weeks after surgery. She is scheduled to see Dr. Khan in [place] [facility] on 01/31?? Wondering why its in [place] and not in [place]? I suggested calling Dr. Ivey' office to get clarification she wanted me to check with Dr. Kamille Gleason and call her back. Phone number: mobile Is it okay to leave a voicemail on answering machine with test results? Yes Pharmacy (if medication related): N/A Alexandria Austin documented in this encounter Plan of Treatment Upcoming Encounters Date Type Specialty Care Team Description 03/12/2022 Appointment Radiation Oncology Stephanie Gleason M.D. 200 [place] [phone] 03/12/2022 Appointment Radiation Oncology Stephanie Gleason M.D. [address] [place] [address] [phone] 03/13/2022 Appointment Radiation Oncology Stephanie Gleason M.D. 200 [place] [phone] 03/14/2022 Appointment Radiation Oncology Stephanie Gleason M.D. [address] [place] [phone] 03/25/2022 Ancillary Procedure Ophthalmology Chas Shin M.D. [address] [place] [phone] 03/25/2022 Ancillary Procedure Ophthalmology 03/25/2022 Ancillary Procedure Ophthalmology Chas Shin M.D. [address] [place] [phone] 03/26/2022 Ancillary Procedure Ophthalmology Rebeca Valle P.A.-Rusty., M.S. [address] [place] [phone] 03/26/2022 Comprehensive Visit Ophthalmology Chas Shin M.D. [address] [place] [phone] 03/29/2022 Comprehensive Visit Endocrinology Farzana Allen M.D. [address] [place] [address] [phone] 04/04/2022 Appointment Radiology Christina Tai P.Domingo.-C., M.S. [address] [place] [phone] 04/04/2022 Office Visit Oncology Vini Maki M.D., Ph.D. [address] [place] [phone] 04/04/2022 Office Visit Neurological Surgery Charles Ivey M.D., Ph.D. [address] [place] [phone] 05/03/2022 Comprehensive Visit Clinical Genomics Sanya Mehta M.D. [address] [place] [phone] 05/06/2022 Clinical Communication Admitting/Central Scheduling 05/09/2022 Office Visit Oncology Farzana Allen M.D. [address] [place] [phone] Scheduled Orders Name Type Priority Associated Diagnoses Order S chedule MR Brain without Imaging RAD - Routine (most Malignant Neoplas m Expected: and with IV inpatients and all Of Brain (HCC) 022, Contrast outpatients) Expires: 04/24/2023 Scheduled Referrals Name Type Priority Associated Order Schedule Diagnoses Radiation Oncology Outpatient Referral Routine 10 Occurrences nurse visit starting 2021 (clinic) until Radiation Oncology Outpatient Referral Routine Malignant Neopl asm Expected: 01/22/2022 - Nurse education Of Brain (HCC) (Approxi mate), visit (clinic) Expires: 12/25 documented as of this encounter Visit Diagnoses Diagnosis Malignant Neoplasm Of Brain (HCC) - Prim uyen documented in this encounter
--- OUTSIDE RECORDS SUMMARY | 2022-03-12 14:34 | XMS_ITS | Encounter Summary ---
:1970 Author Organization [facility] Address [address] [place] [address] Care Team Providers Name Role Phone Unavailable Primary Care Provider Unavailable Reason for Visit Reason Comments Communication Encounter Details Date Type Department Care Team Description 01/22/2022 Clinical Communication Department of Ivey, Charles Ojeda, Communication Neurologic Surgery Sebastian, Ph.D. in [address] [place] [phone] [place], [place] [phone] (Work) [phone] Social History Tobacco Use Types Packs/Day Years [...] have completed or the highest Maulik, MEd, CASINO PORTER, 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 Sex Assigned at Date Recorded Female 01/07/2022 11:11 AM CDT documented as of this encounter Miscellaneous Notes Telephone Encounter - Marsha Larry, R.N. - 01/22/2022 2:49 PM CDT Patient has been rescheduled and to see radiation oncology in [place] on 01/28 and has been notified. Telephone Encounter - Leonardo Kimble - 01/22/2022 9:07 AM CDT Patient's mother called with several concerns. First, she is wondering if the removal of patient's stiches can be done before she is discharged, so that she doesn't have to make a 2 hour trip just for that. Second, she is concerned about the scheduling of radiation. She says Dr. Ivey had told her they wanted to start radiation 3 weeks from surgery, and as of right now, there is a consult with radiation oncology scheduled for 3 weeks after surgery - her concern is that radiation will necessarily be some time after that consult, and therefore later than the 3 weeks he wanted. Please respond to the RST ANDRES[facility] SCHEDULING Pool Thank You documented in this encounter Plan of Treatment Upcoming Encounters Date Type Specialty Care Team Description 03/12/2022 Appointment Radiation Oncology Stephanie Gleason M.D. [address] [place] [phone] 03/12/2022 Appointment Radiation Oncology Stephanie Gleason M.D. [address] [place] [phone] 03/13/2022 Appointment Radiation Oncology Stephanie Gleason M.D. [address] [place] [phone] 03/14/2022 Appointment Radiation Oncology Stephanie Gleason M.D. [address] [place] [address] [phone] 03/25/2022 Ancillary Procedure Ophthalmology Chas Shni M.D. [address] [place] [phone] 03/25/2022 Ancillary Procedure Ophthalmology 03/25/2022 Ancillary Procedure Ophthalmology Chas Shin M.D. [address] [place] [phone] 03/26/2022 Ancillary Procedure Ophthalmology Rebeca Valle P.A.-C., M.S. [address] [place] [phone] 03/26/2022 Comprehensive Visit Ophthalmology Chas Shin M.D. [address] [place] [phone] 03/29/2022 Comprehensive Visit Endocrinology Farzana Allen M.D. [address] [place] [address] [phone] 04/04/2022 Appointment Radiology Christina Tai P.A.-C., M.S. [address] [place] [address] [phone] 04/04/2022 Office Visit Oncology Vini Maki M.D., Ph.D. [address] [place] [address] [phone] 04/04/2022 Office Visit Neurological Surgery Charles Ivey M.D., Ph.D. [address] [place] [address] [phone] 05/03/2022 Comprehensive Visit Clinical Genomics Sanya Mehta M.D. [address] [place] [phone] 05/06/2022 Clinical Communication Admitting/Central Scheduling 05/09/2022 Office Visit Oncology Farzana Allen M.D. [address] [place] [address] [phone] documented as of this encounter Visit Diagnoses Not on filedocumented in this encounter
--- OUTSIDE RECORDS SUMMARY | 2022-03-12 14:35 | XMS_ITS | Encounter Summary ---
:1970 Author Organization [facility] Address [address] [place] [address] Care Team Providers Name Role Phone Unavailable Primary Care Provider Unavailable Reason for Referral MRI/CAT/PET Scan (Routine) - Closed Specialty Diagnoses / Procedures Referred By Contact Refer red To Contact Radiology Diagnoses Mass Brain Evangelist Salinas M.D., [facility] Procedures MR Brain Functional Language with MD Administration Ph.D. [address] [place] [phone] Referral ID Status Reason Start Date Expiration Date Visits Requ ested Visits Authorized [id number] Closed 01/01/2022 01/01/2023 1 1 Reason for Visit Auth/Cert Specialty Diagnoses / Procedures Referred By Contact Refer red To Contact Diagnoses Malignant Neoplasm Of Brain (HCC) Procedures IN CRANIOT SUBDURAL IMPL ELECTRODE IN MAPPING CORTICAL INITIAL HR Awake left temporoparietal stereotactic craniotomy tumor resection, speech mapping, intraop MRI, supine position. Referral ID Status Reason Start Date Expiration Date Visits Requ ested Visits Authorized [id number] 1 1 Encounter Details Date Type Department Care Team Description 01/09/2022 Hospital Encounter Department of Radiology Evangelist Salinas, Mass Brain in [facility] monica Cortes, Ph.D. 200 [facility] 200 [place] [phone] [place], [place] [phone] Social History Tobacco Use Types Packs/Day Years [...] or relatives? How often do you attend zoroastrian or More than 4 times per year 01/07/2022 jewish services? Do you belong to any clubs or No 01/07/2022 organizations such as zoroastrian groups, unions, fraternal or athletic groups, or [...] slept in a care home (including now)? Sex Assigned at Date Recorded Female 01/07/2022 11:11 AM CDT documented as of this encounter Medications at Time of Discharge Medication Sig Dispensed Refills Start Date End Date acetaminophen (Tylenol Take 1,000 mg by 0 [...] 0 0 12/31/2021 01/24/2022 mg capsule daily. documented as of this encounter Plan of Treatment Upcoming Encounters Date Type Specialty Care Team Description 03/12/2022 Appointment Radiation Oncology Stephanie Gleason M.D. [address] [place] [phone] 03/12/2022 Appointment Radiation Oncology Stephanie Gleason M.D. [address] [place] [phone] 03/13/2022 Appointment Radiation Oncology Stephanie Gleason M.D. [address] [place] [phone] 03/14/2022 Appointment Radiation Oncology Stephanie Gleason M.D. [address] [place] [phone] 03/25/2022 Ancillary Procedure Ophthalmology Chas Shin M.D. [address] [place] [phone] 03/25/2022 Ancillary Procedure Ophthalmology 03/25/2022 Ancillary Procedure Ophthalmology Chas Shin M.D. [address] [place] [phone] 03/26/2022 Ancillary Procedure Ophthalmology Rebeca Valle P.A.-C., M.S. [address] [place] [phone] 03/26/2022 Comprehensive Visit Ophthalmology Chas Shin M.D. [address] [place] [phone] 03/29/2022 Comprehensive Visit Endocrinology Farzana Allen M.D. [address] [place] [address] [phone] 04/04/2022 Appointment Radiology Christina Tai P.A.-C., M.S. [address] [place] [phone] 04/04/2022 Office Visit Oncology Vini Maki M.D., Ph.D. [address] [place] [address] [phone] 04/04/2022 Office Visit Neurological Surgery Charles Ivey M.D., Ph.D. [address] [place] [phone] 05/03/2022 Comprehensive Visit Clinical Genomics Sanya Mehta M.D. [address] [place] [address] [phone] 05/06/2022 Clinical Communication Admitting/Central Scheduling 05/09/2022 Office Visit Oncology Farzana Allen M.D. [address] [place] [phone] documented as of this encounter Procedures Procedure Name Priority Date/Time Associated Comments Diagnosis MR BRAIN FUNCTIONAL RAD - Routine 01/09/2022 12:04 Mass Brain Res ults for LANGUAGE WITH MD (most inpatients PM CDT this pr ocedure ADMINISTRATION and all are in the outpatients) results section. documented in this encounter Results MR Brain Functional Language with MD Administration [...] the appearance and size of the left jwqvoqk-eqttdgwe-rwwaaund mass since 03/2022. The mass demonstrates new [...] were acquired and statistically evaluated with the xiao qu wu you workstation using AFNI based correlation analysis. Training: ??The patient was trained in t he selected fMRI tasks by Dr. Coffey. ??The patient's ability to perform these tasks was assessed greta ng the training session. 1. ??Task: ??Rhyming [facility] Patient self-assessment of performance: ??Inadequate Technologist assessment of performance: ??Inadequate Accuracy: ?11.7% Average response time: ??1.7sec Head motion: ? 0.4 mm Statistical methods: ?T statis tic filtered 2. ??Task: ??Sentence completion [facility] Patient self-assessment of performance: ?Adequate Technologist assessment [...] the appearance and size of the left gdnvddh-rihpzixx-xyxybjlg mass since 03/2022. The mass demonstrates new [...] were acquired and statistically evaluated with the xiao qu wu you workstation using AFNI based correlation analysis. Training: The patient was trained in e selected fMRI tasks by Dr. Coffey. The patient's ability to perform these tasks was assessed greta sarah the training session. 1. Task: Rhyming SMS Patient self-assessment of performance: Inadequate Technologist assessment of performance: Inadequate Accuracy: 11.7% Average response time: 1.7sec Head motion: 0.4mm Statistical methods: T statistic filtered 2. Task: Sentence completion [facility] Patient self-assessment of performance: Adequate Technologist assessment [...] Evangelist Salinas M.D., Ph.D. IMG MRI PROCEDURES documented in this encounter Visit Diagnoses Diagnosis Mass Brain documented in this encounter Administered Medications Inactive Administered Medications - up to 3 most recent administrations Medication Order MAR Action Action Date Dose Rate Site gadobutrol injection 0.01-30 mL Given 01/09/2022 12:05 PM CDT 10 mL (GADAVIST) 0.01-30 mL, intravenous, Once in imaging, contrast, Starting on Fri01/09/22 at 0859, For 1 dose, Imaging Protocol Orders, Dose per Radiant Medication Guidelines Intrathecal doses greater than 0.25 mL not recommended. documented in this encounter
--- OUTSIDE RECORDS SUMMARY | 2022-03-12 14:35 | XMS_ITS | Encounter Summary ---
:1970 Author Organization [facility] Address [address] [place] [address] Care Team Providers Name Role Phone Unavailable Primary Care Provider Unavailable Reason for Visit Auth/Cert Specialty Diagnoses / Procedures Referred By Contact Refer red To Contact Diagnoses Malignant Neoplasm Of Brain (HCC) Procedures WA CRANIOT SUBDURAL IMPL ELECTRODE WA MAPPING CORTICAL INITIAL HR Awake left temporoparietal stereotactic craniotomy tumor resection, speech mapping, intraop MRI, supine position. Referral ID Status Reason Start Date Expiration Date Visits Requ ested Visits Authorized [id number] 1 1 Encounter Details Date Type Department Care Team Description 01/10/2022 Surgery RST ROMB MAIN OR Charles Ivey, Asleep left [address] [facility] Sebastian, Ph.D. temporoparietal [place], [place] [address] [facility] stereotactic craniotomy [address] [place], [place] tumor resection, speech [phone] [id number] mapping, supine position, intraoperative MRI, BK (Work) ultrasound. Social History Tobacco Use Types Packs/Day Years [...] More than 4 times per year 01/07/2022 confucianist services? Do you belong to any clubs or No 01/07/2022 organizations such as shinto groups, unions, [employer]Think [employer] or athletic groups, or school groups? How [...] have completed or the highest Maulik, MEd, CITY DESIGNER, 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 Sex Assigned at Date Recorded Female 01/07/2022 11:11 AM CDT documented as of this encounter Last Filed Vital Signs Vital Sign Reading Time Taken Comments Blood Pressure 139/71 01/10/2022 8:00 AM CDT Pulse 48 01/10/2022 8:00 AM CDT Temperature 37 ??C (98.6 ??F) 01/10/2022 8:00 AM CDT Respiratory Rate 22 01/10/2022 8:00 AM CDT Oxygen Saturation 99% 01/10/2022 8:00 AM CDT Inhaled Oxygen Concentration - - Weight 97.7 kg (215 lb 6.2 oz) 01/09/2022 10:00 PM CDT Height 169 cm (5' 6.54) 01/09/2022 10:00 PM CDT Body Mass Index 31.13 01/11/2022 4:00 AM CDT documented in this encounter Discharge Summaries Madiha Castro M.D. - 01/17/2022 6:47 AM CDT DISCHARGE SUMMARY BRIEF OVERVIEW Hospital: [facility] Discharge Provider: Charles Ivey M.D. Primary Team: Baljit Neurologic Surgery - Loni No primary care provider on file. Primary [...] BK ultrasound. Charles Ivey M.D., Ph.D.Madiha Castro M.D.Johnathan Jones M.D., Ph.D.Marisol Avilez, Ph.D., L.P. [facility] ROMB OR DISCHARGE DISPOSITION Rehab Facility [62] ACTIVE ISSUES REQUIRING FOLLOW UP OUTPATIENT FOLLOW UP Scheduled Appointments 01/25/2022 12:00 PM Evangelist Salinas M.D., Ph.D. Neurological Surgery 01/31/2022 8:20 AM Rebeca Valle P.A.-C., M.S. Oncology 01/31/2022 10:00 AM Iban De La Cruz M.D. Radiation Oncology 01/31/2022 2:15 PM Sejal Resendiz M.S., [facility] Clinical Genomics 02/07/2022 1:20 PM Farzana Allen M.D. Oncology 04/04/2022 8:20 AM MR ROCN LO MR 69 3T Radiology 04/04/2022 1:00 PM Charles Ivey M.D., Ph.D. Neurological Surgery For appointment details refer to your Patient Appointment Guide. TEST RESULTS PENDING AT DISCHARGE Pending Labs Order Current Status Pathology Exempt Research Only Collected (01/10/22 9028) DETAILS OF HOSPITAL STAY REASON FOR ADMISSION Tumor Brain (HCC) HOSPITAL COURSE Mia Richardson is a 51 y.o. female with a PMHx of hypertension and recent biopsy and subtotal [place]05[place]20[place] [facility] for grade 3 astrocytoma, IDH wildtype, MGMT [...] biopsy and subtotal resection on 12/05 at [facility]. After surgery, she improved temporarily, but then [...] CONSULT TO CARE MANAGEMENT IP CONSULT TO WOOD HEEL BACK LINER INDUSTRIAL SEWER IP CONSULT TO PHYSICAL MEDICINE & REHABILITATION [...] visit with Dr. Ivey, or his Physician's Lozenge Dough Mixer, Eileen Tai, in approximately 3 months. These appointments have been scheduled. If there are any questions or concerns about the appointments, please call the Neurosurgery Patient Appointment Service Specialists at . Discharge Instr - London Altamirano PClayton. - 01/16/2022 12:30 PM CDT Physical Therapy [...] Discharge information provided on 01/16/2022 Contact information: [facility], Acute Therapy Services [phone] documented in this encounter Medications at Time [...] (TEMODAR) Take 20 mg by mouth 0 05/04/202201/24/2022 20 mg capsule daily. TURMERIC ORAL Take [...] R.N. - 01/17/2022 9:22 AM CDT SUBJECTIVE career development director visited with patient regarding her dismissal questions. OBJECTIVE Patient sitting up in bedside chair. Patient alert, pleasant and engaged in conversation. Patient expressing difficulty understanding the dismissal options. ASSESSMENT / PLAN STRADDLE BUG OPERATORepidemiology investigator visited with patient regarding her questions with [...] the information. Patient contacted Libby via phone. epidemiology investigator introduced self and role to Libby. Advised [...] rehab and approvalfor insurance has been submitted. epidemiology investigator advised unsure where their process is at. [...] therapy time in comparison to inpatient rehab. epidemiology investigator advised will reach out to the team for more information and someone will return call to explain more about inpatient rehab. After leaving patient room, epidemiology investigator has learned patient's insurance has approved patient's admission to inpatient rehab. epidemiology investigator reached out to team, for request that someone speak to patient and patients mom about inpatient rehab. PLAN epidemiology investigator will continue to follow during hospitalization, assisting with a safe dismissal plan. Alberto Jiménez R.N. 01/17/22 Erika Alicea M.S., [facility]-MOLD YARD SUPERVISOR - 01/17/2022 9:15 AM CDT Speech Language [...] Primary Mode of Expression: Verbal Primary Language: Welsh Open Ended Questions: 100% accuracy Conversation: Impaired [...] her mother on speakerphone about role of MOLD YARD SUPERVISOR services in addressing cognitive communication deficit in [...] Disorder: Moderate Plan Discharge Location: Inpatient rehab MOLD YARD SUPERVISOR Ongoing Services: Ongoing formal Speech Pathology services [facility] Re[facility] Potential: Good Michael De Los Santos M.D., Ph.D. - 01/17/2022 9:11 AM CDT Facility Information: [facility] Physical Medicine and Rehabilitation Pre-Admission Screening Patient Information Patient Name: Mia Richardson [address]: [address] [place] [id number] Sex: Female Date of : 1970 Age: 51 y.o. 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 Thepatient underwent a stereotactic biopsy of a left temporal region of hyperintensity in November at [facility]. The pathology apparently revealed IDH wild type, [...] and non-sensical statements. Per chart,her mother from [place] has been living with her recently and she has 3 children ages 29, 23, 21. Patient mentioned having a boyfriend named Erich. Home Living Type of Home: House Home Living Comments: Patient responding to all questions, but tends to perseverate and is not a realiable historian as evidenced by inconsistencies in responses and non-sensical statements. Per chart,her mother from [place] has been living with her recently and she has 3 children ages 29, 23, 21. Patient mentioned having a boyfriend named Erich. Home Equipment Home Adaptive Equipment: None Prior Function Level of [place]: Independent with ADLs and functional transfers Receives [...] with family Patient/Caregiver Goals: Return to home. [place] with ADL and IADL tasks. Required Treatments and Services: Rehabilitation Physician, Rehabilitation Nursing, Physical Therapy, Occupational Therapy, Speech Therapy, Recreational Therapy, Breaker Boss, Publications Sales Representative, Rehabilitation Psychology, Bowel and Bladder Management, Tv Host, and Aerologist Services Anticipated Services Upon Discharge Anticipated Interventions Anticipated Interventions: Physical Therapy, Occupational Therapy, Speech Therapy PT Projected Minutes/Day: 90 PT Projected Days/Week: 5 OT Projected Minutes/Day: 90 OT Projected Days/Week: 5 MOLD YARD SUPERVISOR Projected Minutes/Day: 30 MOLD YARD SUPERVISOR Projected Days/Week: 5 Rehabilitation nursing to manage: bowel and bladder function, medication management, patient / family goals, skin care, surgical incision, nutrition and fluid intake, pulmonary hygiene, pain control, safety Discharge Information Discharge information Projected Admission Date: 01/17/22 Barriers: Comorbidities Discharge Support: Family Estimated Length of Stay: 10 days Anticipated Discharge Destination: 01 - Home (private home/apartment, assisted living, skilled nursing, transitional living) Anticipated Services Upon Discharge Anticipated Services Upon Discharge: Outpatient Therapy Learning Assessment Questions Primary Learner Name: Mia Relationship: Patient Does the primary learner have any barriers to learning?: Reading What is the preferred language of the primary learner for medical teaching?: Welsh Is an honey producer required?: No How does the primary learner prefer to learn new concepts?: Demonstration / Seeing, Doing, Listening Relationship: Patient Is an honey producer required?: No Assessment answers provided by?: Patient Information Brochures Given: Data Collection Information Summary for Patients in Inpatient Rehabilitation Facilities, Brain Rehabilitation [id number], Inpatient Rehabilitation Programs [id number] Michael De Los Santos M.D., Ph.D. Madiha Castro M.D. - 01/17/2022 6:44 AM CDT 9-746 NguyenMia [birth year] 51F Glioma Resection [id number] - S/p left temporoparietal crani on 01/10 for resection of Grade 3 astrocytoma, IDH wildtype, MGMT unmethylated. Preop symptoms: lethargic, not oriented, significant pain, nausea, word-finding difficulties, likely seizure. Under[place] biopsy and subtotal [place] 12[place]05 [place] [facility] After surgery, she improved temporarily, but then [...] please page the Dr. Ivey service at [phone] Cici Hope RDN - 01/16/2022 3:49 PM [...] 97.7 kg (01/09/2022) Current Weight: 88.9 kg [place] Body Weight (Calculated) : 60.3 kg BMI [...] 97.7 kg Estimated Needs: Total Calorie Needs: 9958-4119 kcals calories/day Method to Estimate Energy Needs: [place] (75% to Basal) Weight Used for Equation [...] about patient's nutritional care please contact pager [phone] on weekdays or [phone] on weekends/holidays. Pradeep Marquez MDIV - 01/16/2022 3:35 PM CDT Encounter: Spiritual Care Contact Situation: Aerologist visit following up from 01/14/22 differential repairer visit. Mia declined visit and requested stop back a different day. I affirmed preference. Plan: Will remain available for spiritual care as needed or requested. Chaplains can be contacted by paging [phone] ([place]) or [phone] ([place]). Sona Ma O.T., O.T.D. - 01/16/2022 3:04 PM CDT Occupational Therapy [facility] Inpatient Progress Note SUBJECTIVE Patient's Name: [...] Date: 01/09/22 Patient/Caregiver Goals: Return to home. [place] with ADL and IADL tasks. Patient Comments: [...] for hospitalization. For hosptial name, she reported [facility], but then put [place] in city. With cueing, she was able to correct to [place] and accurately put [place] for state, improved from completion during previous date. [place] Test [place] Test is a symbol cancellation test that [...] Assistance with meal preparation, Assistance with financial foundations representative, Assistance with transportation, Assistance with hous ekeeping, [...] Therapeutic exercise, Therapeutic modalities as needed, Orthosis dutzbbtfgzs-pttrkbcn-dcsbpal, Manual therapy Time Spent with Patient Therapeutic [...] biopsy and subtotal [place] 12[place]05 [place] [facility] After surgery, she improved temporarily, but then [...] needed (Toradol PRN is available). London Fortune P.T. - 01/15/2022 2:37 PM CDT Physical Therapy [...] 25 min London Fortune P.T. Marie Anaya O.T. - 01/15/2022 2:18 PM CDT Occupational Therapy [...] something ludivina. For hosptial name, she reported [facility] and then with cues and times switched to [facility]. She put [facility] for [facility] and [facility] for [facility]. She appeared to be perseverating on previous [...] rounds and communicate with primary service angel david Barriers to Discharge Home: Current functional status, Safety concerns Comorbid Conditions: Cancer Personal Factors: Visual impairment, Safety awareness, Communication deficit, Balance impairment Discharge Therapy Needs - OT: Ongoing skilled occupational therapy Level of Care Needed - OT: Assistance with toilet/shower transfers, Assistance with medication set up/administration, Assistance with showering/bathing, Assistance with dressing, Assistance with meal preparation, Assistance with financial foundations representative, Assistance with transportation, Assistance with hous ekeeping, [...] (min): 35 min Marie Anaya O.T. Gabrielle Cote, R.N. - 01/15/2022 12:22 PM CDT Seeing in [...] would like to pursue inpatient rehab at [place]. Reviewed insurance disclosure information Acute inpatient rehabilitation admission planned for 01/17/2022 pending insurance approval. Erika Alicea M.S., [facility]-MOLD YARD SUPERVISOR - 01/15/2022 10:20 AM CDT Speech Language [...] Primary Mode of Expression: Verbal Primary Language: Welsh Open Ended Questions: 61-80% accuracy Conversation: Impaired [...] Disorder: Moderate Plan Discharge Location: Inpatient rehab MOLD YARD SUPERVISOR Ongoing Services: Ongoing formal Speech Pathology services Duration of Treatment[facility] Rehab Potential: Good Madiha Castro M.D. - 01/15/2022 7:01 AM CDT 9-746 Mia Cedillo [birth year] 51F Glioma Resection [id number] - S/p left temporoparietal crani on 01/10 for resection of Grade 3 astrocytoma, IDH wildtype, MGMT unmethylated. Preop symptoms: lethargic, not oriented, significant pain, nausea, word-finding difficulties, likely seizure. Underwent biopsy and subtotal resection on 12/05 [place] [facility] After surgery, she improved temporarily, but then [...] will evaluate her today. She worked with PT/OT/MOLD YARD SUPERVISOR yesterday. - Pathology came back as: GBM, [...] please page the Dr. Ivey service at [phone] London Fortune P.T. - 01/14/2022 2:55 PM CDT Physical Therapy [...] - 01/14/2022 11:50 AM CDT Occupational Therapy [facility] Inpatient Progress Note SUBJECTIVE Patient's Name: [...] Assistance with meal preparation, Assistance with financial foundations representative, Assistance with transportation, Assistance with hous ekeeping, [...] Castro M.D. - 01/14/2022 7:21 AM CDT 9-746 Mia Cedillo [birth year] 51F Glioma Resection [id number] - POD#4 s/p left temporoparietal crani for resection of Grade 3 astrocytoma, IDH wildtype, MGMT unmethylated. Preop symptoms: lethargic, not oriented, significant pain, nausea, word-finding difficulties, likely seizure. Underwent biopsy and subtotal resection on 12/05 [place] [facility] After surgery, she improved temporarily, but then [...] Incision clean/dry/intact. - Na: 134-136 - Plan: PT/OT/MOLD YARD SUPERVISOR, decadron taper, Keppra 1 g BID, diet/mobilization as tolerated, pain management as needed (Toradol PRN is available). For questions or concerns, please page the Dr. Ivey service at [phone] Marie Caballero OClayton. - 01/13/2022 12:42 PM CDT Occupational Therapy Acute Hospital Inpatient [...] and the need for further assessment. M-LISET Prydeinig Version A Score: 10/30 Domain scores: Attention: [...] Assistance with meal preparation, Assistance with financial foundations representative, Assistance with transportation, Assistance with hous ekeeping, [...] Therapeutic functional activity, Neuromuscular re-education, Gait training MACHINE PULLER OVER Visit Trackin Time Spent with Patient Therapeutic Interventions Neuromuscular Re-Education (min): 17 min Time Tracking Total Timed Units (min): 17 min Total Treatment Time (min): 17 min Kylie Roca, P.T.ASanjuanita RDT Madiha Castro M.D. - 01/13/2022 7:18 AM CDT 9-746 Mia Cedillo [birth year] 51F Glioma Resection [id number] - POD#3 s/p left temporoparietal crani for resection of Grade 3 astrocytoma, IDH wildtype, MGMT unmethylated. Preop symptoms: lethargic, not oriented, significant pain, nausea, word-finding difficulties, likely seizure. Underwent biopsy and subtotal resection on 12/05 [place] [facility] After surgery, she improved temporarily, but then [...] with assistance. - Exam: oriented to self, [place], and year, CN 2-12 grossly intact, follows commands in all extremities with intact sensation, no pronator drift. Incision clean/dry/intact. - Na: last night was 137 (up from 130 in the afternoon), morning sodium still pending. - Plan: continue trending sodium, encourage oral intake, PT/OT/MOLD YARD SUPERVISOR, decadron taper, Keppra 1 g BID. For questions or concerns, please page the Dr. Ivey service at [phone] Madiha Castro M.D. - 01/12/2022 7:06 AM CDT 8-265 Mia Cedillo [birth year] 51F Glioma Resection [id number] - POD#2 s/p left temporoparietal crani for resection of Grade 3 astrocytoma, IDH wildtype, MGMT unmethylated. Preop symptoms: lethargic, not oriented, significant pain, nausea, word-finding difficulties, likely seizure. Underwent biopsy and subtotal resection on 12/05 at [facility]. After surgery, she improved temporarily, but then [...] restrict fluids if necessary, advance diet, UCO, PT/OT/MOLD YARD SUPERVISOR, decadron taper, Keppra 1 g BID. Active Issues # Brain compression # Cerebral edema # Class 1 Obesity (BMI 30 to <35) ??? Malignant Neoplasm Of Brain (HCC) ??? Tumor Brain (HCC) For questions or concerns, please page the Dr. Ivey service at [phone] Erika Alicea M.S., [facility]-MOLD YARD SUPERVISOR - 01/11/2022 2:25 PM CDT Attempted to see patient both and morning and afternoon for MOLD YARD SUPERVISOR evaluation but patient was unable toawaken and demonstrate alertness necessary for examination. Madiha Castro M.D. - 01/11/2022 7:10 AM CDT 8-748 Mia Cedillo [birth year] 51F Glioma Resection [id number] - POD#1 s/p left temporoparietal crani for resection of Grade 3 astrocytoma, IDH wildtype, MGMT unmethylated. Preop symptoms: lethargic, not oriented, significant pain, nausea, word-finding difficulties, likely seizure. Underwent biopsy and subtotal resection on 12/05 at [facility] After surgery, she improved temporarily, but then [...] please page the Dr. Ivey service at [phone] RDT Amber Bailey PharmVarun., R.Ph. - 01/10/2022 10:23 AM CDT Pharmacist Progress Note 51 y.o. female admitted for left temporoparietal sterotactic craniotomy OBJECTIVE Home medications: ??? Held: None ??? Changed: Dexmethasone Prophylaxis: None ASSESSMENT / PLAN Pharmacotherapy Recommendations: 1. Heparin for DVT prophylaxis after OR 2. Steroid plan Amber Bailey PharmD, BCCCP [id number] Madiha Casrto M.D. - 01/10/2022 7:05 AM CDT 8-407 Mia Cedillo [birth year] 51F Glioma Resection [id number] - To OR today for left Grade 3 astrocytoma, IDH wildtype, MGMT unmethylated. Preop symptoms: lethargic, not oriented, significant pain, nausea, word-finding difficulties, likely seizure. Underwent biopsy and subtotal resection on 12/05 at [facility]. After surgery, she improved temporarily, but then [...] her poor exam, she was transferred to [facility] and given hypertonic saline. Most [...] please page the Dr. Ivey service at [phone] Rashida Jiang Pharm.D., R.Ph. - 01/09/2022 5:24 PM CDT [...] y.o. 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 HISTORY OF PRESENT ILLNESS - PMH is largely unremarkable except for brief course of treatment with HCTZ for HTN in the past. - 11/29/2021 presented to [facility] with intermittent word-finding difficulty. She was counseling [...] by Dr. Dunlap. Pathology was consistent with BUTT WELDER WHO grade 3 astrocytoma, IDH wildtype, MGMT [...] week. She could state she was in [place], in her home. She could name ring [...] y.o. female who presents for evaluation of BUTT WELDER WHO grade 3 astrocytoma, IDH wildtype by [...] classify this as a glioblastoma rather than BUTT WELDER WHO grade 3 astrocytoma. We will need [...] be implemented if thisis pursued. I did job counselor against use of antioxidants during radiation therapy. [...] Ms. Cedillo is a very pleasant 51-year-old, apvmb-xjhd-izqkmpwq woman with a medical history significant only for hypertension and obesity (BMI 31.1) who was enjoying her normal state of health until about a month ago (November 29, 2021) when she had the onset of intermittent difficulty finding her words. When she presented to the [place] [facility], she was noted to have bruising on her forehead, and a seizure was suspected. She was begun on Keppra, and MRI the following day (images which I viewed in QREADS) revealed a multifocal T1 hypointensive and T2 hyperintensive mass involving theleft cerebellum, temporal lobe, parietal lobe, thalamus, and hippocampus. She proceeded to undergo a biopsy at [facility] on December 05 with pathology consistent with a WHO grade 3astrocytoma, wild type, and MGMT unmethylated. Following her biopsy she has continued to have difficulty with word finding and ultimately underwent a left temporoparietal stereotactic craniotomy for resection of the tumor which on postoperative MRI imaging appears to be complete. Ms. Cedillo was able to begin participating in an rsy-xjk-hbtcu therapy program. She has done well but [...] but I believe it is outside of [place] and that she would have to ascend [...] basis, I proceeded to attempt a formal [facility] mental status examination and obtained the following responses: Orientation--she is able to tell me the date, themonth, her age, date of , and her address. Information--she was able to name Biden as the current president but was unable to name the first one (even with choices) and gave her age as 32 rather than 51. Given effects of aphasia, I held off on further attempts. Speech: Grossly intact, fully understandable. Muscle Bulk and Tone: Upper and lower extremities 0/0. Coordination: Shylfd-hj-ckdy was -1/-1. Satellite maneuver showed the left [...] R.N. Referral Reason: Discharge Planning Primary Language: Welsh Ceramics Instructor Services Used: No Person(s) present during interview: [...] Communication: Can write, Talks, Understands speaking, Understands Welsh, Reads Shopping: Independent Transportation: Independent to drive [...] Self Care ASSESSMENT / PLAN Assessment: The epidemiology investigator met with Mia Richardson to discuss her current hospitalization and home going needs. The patient was unaccompanied. The patient was a reliable historian. The role of epidemiology investigator was reviewed. The patient reviewed her prior level of care and support system. The patient receivessupport from her mother and extended family. The patient described her living environment as a apartment without elevator access with level entry. Housekeeping, grocery shopping, meal prep, and other household responsibilities have previously been completed by patient. epidemiology investigator discussed the patient's potential needs at dismissal based ontheir home setting, previous needs and responsibilities, homebound status, and relevant assessments with the patient. The patient is yet to be determined be safe and supported to return home when medically ready, pending medical course. Support will be provided by Libby. The patient demonstrated understanding when discussing her home going plans and anticipated needs. epidemiology investigator met with patient in hospital room. Patient in agreement to meet at this time. Patient sitting up in bedside chair. Patient alert, pleasant, eyes closed and engaged in conversation related to baseline activity/home environment and support. epidemiology investigator and patient spoke of anticipated discharge when medically stable. Discussing vision impairments and anticipated support needed to ensure safety at discharge. Discussed early in recovery with unknown plan at this time. epidemiology investigator/patient discussed care management will follow along and [...] medical course and recommendations from PT/OT. Advised epidemiology investigator will follow along during hospitalization and assist as needed. epidemiology investigator reinforced if concerns or questions arise related to dismissal planning, to notify bedside nurse of request to speak with epidemiology investigator for assistance. Patient verbalized understanding and agreement, denying any concerns or questions at this time. At this time, the care team has not identified any skilled post-hospital discharge care needs that require the assistance of the Care Management Team. Dismissal plan to be determined, pending medical course. After reviewing the patient's chart and meeting with the patient, the epidemiology investigator deemed the LACE+/readmission questions were not necessary. [...] be provided by family--to be determined. 3. epidemiology investigator recommended a shower seat and grab bars. 4. epidemiology investigator provided information regarding the dismissal process. 5. epidemiology investigator placed or requested the following hospital-based consult orders and/or referrals:None. 6. epidemiology investigator will continue to assess for homegoing needs with the interdisciplinary team. 7. epidemiology investigator encouraged the patient to reach out with any questions/concerns. Signed by: Alberto Jiménez R.N. 01/14/2022 Emma Arora M.S., CCC-MOLD YARD SUPERVISOR - 01/14/2022 9:58 AM CDT Speech Language Pathology Communication/Cognitive Evaluation- Acute Care Session Type: Evaluation Length of session: 24 minutes SUBJECTIVE Referred By: RST Neurologic Surgery - Ivey History: Ms. Cedillo is a right handed 51 y.o. female who was admitted to [facility] on 01/09/2022 left temporoparietal craniotomy for resection [...] Speech Voice: Within Normal Limits (WNL) Resonance (APPLIANCES SAMPLE MAKER Function): Within Normal Limits (WNL) Articulation: Within Normal Limits (WNL) Intelligibility: Intelligible Auditory Comprehension Yes/No Questions: Within Normal Limits (WNL) Commands: Impaired One Step Basic Commands: 3/3 Two Step Basic Commands: 2/3 Multistep Basic Commands: 1/3 Conversation Comprehension: Moderate Reading Comprehension Reading Status: Impaired Interfering Components: Attention Effective Techniques: Prescription glasses/contact lenses Verbal Expression Primary Mode of Expression: Verbal Primary Language: Welsh Generative Naming/Word Fluency: 1-20% accuracy Open Ended [...] come back later Discharge Location: Inpatient rehab MOLD YARD SUPERVISOR Ongoing Services: Ongoing formal Speech Pathology services [facility]: [facility] Re[facility] Potential: Good Suman Zaavleta - 01/14/2022 9:00 AM CDTAssociated Order(s): IP CONSULT TO WOOD HEEL BACK LINER INDUSTRIAL SEWER Encounter: Follow up, spiritual care consult order [...] requested. Chaplains can be contacted by paging [phone] ([place]) or [phone] ([place]). Marie Caballero O.T. - 01/12/2022 1:57 PM CDT Occupational Therapy Acute Hospital Inpatient Evaluation/Treatment SUBJECTIVE Referring/Attending Provider: Charles Ivey M.D. Patient's Name: Mia Richardson Reason for Referral: OT eval and treat- brain Medical Diagnosis: 1. Tumor Brain (HCC) 2. Malignant Neoplasm Of Brain (HCC) 3. Change Mental Status Payor: [facility] / Plan: [place] / Product Type: PPO / PERTINENT MEDICAL / SURGICAL HISTORY: Patient Active Problem List Diagnosis ??? Malignant Neoplasm Of Brain (HCC) ??? Tumor Brain (HCC) Past Surgical History: Procedure Laterality Date ??? CRANIOTOMY - STEREOTACTIC Left 01/10/2022 Procedure: Asleep left temporoparietal stereotactic craniotomy tumor resection, speech mapping, supine position, intraoperative MRI, BK ultrasound.; Surgeon: Charles Ivey M.D., Ph.D.; Location:[facility] OR ??? 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 Chantal Maria P.T., Pillo.P.T., [facility] - 01/12/2022 1:03 PM CDT Physical Therapy Acute Hospital Inpatient Evaluation/Treatment SUBJECTIVE Referring/Attending Provider: Charles Ivey M.D. Patient's Name: Mia Richardson Reason for Referral: PT eval and treat- brain Medical Diagnosis: 1. Tumor Brain (HCC) 2. Malignant Neoplasm Of Brain (HCC) 3. Change Mental Status Payor: [employer] / Plan: [place] / Product Type: [...] biopsy and [place] [facility] for grade 3 astrocytoma, IDH wildtype, MGMT [...] page the neuro critical care service pager [phone] for any questions or concerns regarding the [...] [place] [phone] if there are anyquestions or concerns. TOTAL [...] urgently for craniotomy. 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 Labs: Age 50-60 - ECG only: Sinus bradycardia ASSESSMENT / PLAN Ms. Mia Richardson is a 51 y.o. female with a past medical history as below who was admitted to theneurologic surgery service for left temporoparietal stereotactic craniotomy astrocytoma resection. 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 -- Hematologic risk assessment Bleeding risk: [...] page the medicine consult service pager at [phone] if there are any questions or concerns. Marysol Martinez M.D. Internal Medicine Resident, PGY-3 GIM Medicine Consults, service pager [phone] Charles Ivey M.D., Ph.D. - 01/09/2022 4:50 [...] temporal region of hyperintensity in November at [facility]. The pathology apparently revealed IDH wild type, [...] which represents a profound change from her November brain MRI. There is new brain compression [...] Ivey M.D., Ph.D. CT CT Job ID: [id number]/[facility] documented in this encounter Nursing Notes Shilpa Burnette R.N. - 01/17/2022 11:50 AM CDT Shift Goals: Transfer to [facility] rehab today Identify possible barriers to meeting goals/advancing plan of care: confusion, impulsivity End of Shift Summary: Patient transferred to [facility]. Report given to JAMES Kirby. Ms. Cedillo has been tolerating a general diet, voiding, ambulating with SBA and reports good pain control. She continues to be impulsive and does need some direction with daily tasks. She answers questions but perseveratesin her speech. She is transferred by [facility] in a wheelchair with all of her [...] Summary: Goal was met. Marysol Padron R.R.T., L.R.T. - 01/11/2022 4:26 PM CDT Patient is a 51 y.o. female admitted on 01/09/2022 Alert Information: Plan of Care: PT is breathing comfortably on RA. Assess daily in ICU. No interventions indicated at this time. Emergency anesthesia bag & mask bedside. Principal Problem Tumor Brain (HCC) Oxygen Therapy $Delivery Method: Room air Arterial Line 01/10/22 Right Radial (Active) Placement Date/Time: 01/10/22 (c 0822 Procedural Pause Completed: Yes Catheter Time Out [...] PRE-OPERATIVE DIAGNOSIS Glioblastoma. POST-OPERATIVE DIAGNOSIS Glioblastoma. A international first officer actively participated and was necessary for one or more of the following: opening,exposure and visualization during the case, maintaining hemostasis, wound closure resulting in its safe and expeditious completion. SURGEON: Charles Ivey M.D., Ph.D. OPTICIAN: Madiha Castro M.D. FELLOW: Johnathan Jones M.D., Ph.D. OPERATIVE NOTE NARRATIVE The patient was brought to operative room 216 at [facility] where appropriate venous and arterial access [...] full but not herniating. We used the Peakos navigation system as well as the ultrasound [...] and the images were transferred to the Peakos navigation system and merged with the original [...] Ivey M.D., Ph.D. CT CT Job ID: [id number]/mat Brief Op Note - Madiha Castro M.D. [...] biopsy and subtotal [place]05[place]20[place] [facility] [place] grade 3 astrocytoma, IDH wildtype, MGMT [...] biopsy and subtotal resection on 12[place]05 [place] [facility]. After surgery, she improved temporarily, but then [...] Appointment Radiation Oncology Stephanie Gleason M.D. [address] [place] [phone] 03/12/2022 Appointment Radiation Oncology Stephanie Gleason M.D. [address] [place] [phone] 03/13/2022 Appointment Radiation Oncology Stephanie Gleason M.D. [address] [place] [phone] 03/14/2022 Appointment Radiation Oncology Stephanie Gleason M.D. [address] [place] [phone] 03/25/2022 Ancillary Procedure Ophthalmology Chas Shin M.D. [address] [place] [phone] 03/25/2022 Ancillary Procedure Ophthalmology 03/25/2022 Ancillary Procedure Ophthalmology Chas Shin M.D. [address] [place] [phone] 03/26/2022 Ancillary Procedure Ophthalmology Rebeca Valle, Tu.A.-C., M.S. [address] [place] [phone] 03/26/2022 Comprehensive Visit Ophthalmology Chas Shin M.D. [address] [place] [phone] 03/29/2022 Comprehensive Visit Endocrinology Farzana Allen M.D. [address] [place] [phone] 04/04/2022 Appointment Radiology Christina Tai, P.A.-C., M.S. [address] [place] [phone] 04/04/2022 Office Visit Oncology Vini Maki M.D., Ph.D. [address] [place] [phone] 04/04/2022 Office Visit Neurological Surgery Charles Ivey M.D., Ph.D. [address] [place] [phone] 05/03/2022 Comprehensive Visit Clinical Genomics Sanya Mehta M.D. [address] [place] [phone] 05/06/2022 Clinical Communication Admitting/Central Scheduling 05/09/2022 Office Visit Oncology Farzana Allen M.D. [address] [place] [phone] documented as of this encounter Procedures Procedure [...] encounter Results Sodium (01/13/2022 6:16 PM CDT) athologist Signature Sodium, S 136 135 - 145 01/13/2022 DTL mmol/L 7:31 PM CDT Specimen Anatomical Collection Method Collection Time Receive d Time (Source) Location / / Volume Laterality Blood (Blood, 01/13/2022 6:16 01/13/2022 Venous) PM CDT 6:49 PM CDT Madiah Castro M.D. LAB BLOOD ADD-ON Performing Organization Address City/State/[facility] Code Phon e Number [facility] - [address] [place], [place] [address] [facility] [place] [address] [address]-[facility] [address] Head Neck Angiogram with IV Contrast (01/13/2022 3:30 PM CDT) Anatomical Region Laterality Modality Head and Neck, Neuroradiology RST LOS, N/A C omputed Tomography, Computed Neuroradiology ARZ LOS, Neuroradiology T omography FLA [facility] Specimen (Source) Anatomical Collection Method Collection Time [...] stenosis , aneurysm, or focal injury. The [place] and its proximal branch vessels [...] stenosis , aneurysm, or focal injury. [place] and its proximal branch vessels [...] stenosis , aneurysm, or focal injury. [place] and its proximal branch vessels [...] stenosis , aneurysm, or focal injury. The [place] and its proximal branch vessels [...] Organization Address City/State/ZIP Code Phon e Number [facility] - [address] (ABNORMAL) Sodium (01/13/2022 6:44 AM CDT) athologist Signature Sodium, S 134 (L) 135 - 145 01/13/2022 DTL mmol/L 8:00 AM CDT Specimen Anatomical Collection Method Collection Time Receive d Time (Source) Location / / Volume Laterality Blood (Blood, 01/13/2022 6:44 01/13/2022 Venous) AM CDT 7:38 AM CDT Madiha Castro M.D. LAB BLOOD ADD-ON Performing Organization Address City/State/ZIP Code Phon e Number [facility] - [address] [place], [place] [address] [address] [place] [address] Sodium (01/13/2022 12:19 AM CDT) athologist Signature Sodium, P 137 135 - 145 01/13/2022 DTL mmol/L 1:07 AM CDT Specimen Anatomical Collection Method Collection Time Receive d Time (Source) Location / / Volume Laterality Blood (Blood, 01/13/2022 12:19 01/13/2022 Venous) AM CDT 12:35 AM CDT Madiha Castro M.D. LAB BLOOD ADD-ON Performing Organization Address City/[facility] Phon e Number [facility] - [address] [place], [place] [address] [facility] [place] [address] [address] (ABNORMAL) Sodium (01/12/2022 4:17 PM CDT) athologist Signature Sodium, P 130 (L) 135 - 145 01/12/2022 STMA mmol/L 4:37 PM CDT Specimen Anatomical Collection Method Collection Time Receive d Time (Source) Location / / Volume Laterality Blood (Blood, 01/12/2022 4:17 01/12/2022 Venous) PM CDT 4:25 PM CDT Madiha Castro M.D. LAB BLOOD ADD-ON Performing Organization Address City/[facility] Phon e Number [facility] - [address] [place], [place] [address] [facility] [place] [address] (ABNORMAL) Basic Metabolic Panel (01/12/2022 4:35 [...] 01/12/2022 DTL Black/ mL/min/BSA 5:21 AM CDT Prydeinig Comment: ----ADDITIONAL INFORMATION---- Estimated GFR calculated using [...] Organization Address City/State/ZIP Code Phon e Number [facility] - [address] [place], [place] [address] [facility] [place] [address] [address] [address] [facility] (ABNORMAL) Basic Metabolic Panel (01/11/2022 8:54 PM [...] 01/11/2022 DTL Black/ mL/min/BSA 10:49 PM CDT Prydeinig Comment: ----ADDITIONAL INFORMATION---- Estimated GFR calculated using [...] Organization Address City/State/ZIP Code Phon e Number [facility] - [address] [place], [place] [address] [facility] [place] [address] [address] [address] EEG ROUTINE (01/11/2022 [...] events recorded. Classification: SPECIAL STUDY - Short-te video EEG. Dysrhythmia grade 2 generalized, max [...] 01/11/2022 DTL Black/ mL/min/BSA 8:15 AM CDT Prydeinig Comment: ----ADDITIONAL INFORMATION---- Estimated GFR calculated using [...] M.D. LAB BLOOD ADD-ON Performing Organization Address City/[facility]/ZIP Code Phon e Number [facility] - [address] [place], [place] [address] [facility] [address] Sodium (01/10/2022 8:14 PM CDT) P athologist Signature Sodium, P 139 135 - 145 01/10/2022 STMA mmol/L 8:30 PM CDT Specimen Anatomical Collection Method Collection Time Receive d Time (Source) Location / / Volume Laterality Blood (Blood, 01/10/2022 8:14 01/10/2022 Venous) PM CDT 8:20 PM CDT Madiha Castro M.D. LAB BLOOD ADD-ON Performing Organization Address City/[facility]/ZIP Code Phon e Number [facility] - [address] [place], [place] [address] [facility] [place], [place] [id number] [place] [address] Patient Status (01/10/2022 2:06 PM CDT) P athologist Signature Temperature 36.0 37.0 deg C 01/10/2022 STMA 2:06 PM CDT FIO2 0.50 0.21=AIR 01/10/2022 STMA 2:06 PM CDT Specimen Anatomical Collection Method Collection Time Receive d Time (Source) Location / / Volume Laterality Blood 01/10/2022 2:06 01/10/2022 PM CDT 2:06 PM CDT Eileen Amezquita COUNTERINTELLIGENCE ANALYST, CEMETERY WARDEN, MNA LAB BLOOD NON ADD-ON Performing Organization Address City/[facility]/ZIP Code Phon e Number [facility] - [address] [place], [place] [address] [place] [address] [facility] [address] [facility] Glucose, Whole Blood (01/10/2022 2:06 PM CDT) athologist Signature Glucose 118 70 - 140 01/10/2022 STMA mg/dL 2:10 PM CDT Specimen Anatomical Collection Method Collection Time Receive d Time (Source) Location / / Volume Laterality Blood (Blood, 01/10/2022 2:06 01/10/2022 Arterial Line) PM CDT 2:06 PM CDT Ana Vaz M.D. LAB BLOOD TROPONIN Performing Organization Address City/State/ZIP Code Phon e Number [facility] - [address] [place], [place] [address] [place] [address] [facility] [address] [facility] Potassium, Blood (01/10/2022 2:06 PM CDT) athologist Signature Potassium, B 4.1 3.6 - 5.2 01/10/2022 STMA mmol/L 2:10 PM CDT Specimen Anatomical Collection Method Collection Time Receive d Time (Source) Location / / Volume Laterality Blood (Blood, 01/10/2022 2:06 01/10/2022 Arterial Line) PM CDT 2:06 PM CDT Ana Vaz M.D. LAB BLOOD NON ADD-ON Performing Organization Address City/State/ZIP Code Phon e Number [facility] - [address] [place], [place] [address] [place] [address] [facility] [address] [facility] Sodium, B (01/10/2022 2:06 PM CDT) athologist Signature Sodium, B 138 135 - 145 01/10/2022 STMA mmol/L 2:10 PM CDT Specimen Anatomical Collection Method Collection Time Receive d Time (Source) Location / / Volume Laterality Blood (Blood, 01/10/2022 2:06 01/10/2022 Arterial Line) PM CDT 2:06 PM CDT Ana Vaz M.D. LAB BLOOD NON ADD-ON Performing Organization Address City/[facility] Phon e Number [facility] - [address] [place], [place] [address] [place] [address] Calcium, Ionized (01/10/2022 2:06 PM CDT) athologist Signature Calcium, 4.95 4.65 - 5.30 01/10/2022 STMA Ionized, B mg/dL 2:10 PM CDT Specimen Anatomical Collection Method Collection Time Receive d Time (Source) Location / / Volume Laterality Blood (Blood, 01/10/2022 2:06 01/10/2022 Arterial Line) PM CDT 2:06 PM CDT Aan Vaz M.D. LAB BLOOD NON ADD-ON Performing Organization Address [facility] Phon e Number [facility] - [address] [place], [place] [address] [place] [address] (ABNORMAL) Blood Gas with Coox, Arterial [...] LAB BLOOD NON ADD-ON Performing Organization Address City/[facility] Phon e Number [facility] - [address] [place], [place] [address] [place] [address] [facility] 200 [facility] Sodium, B (01/10/2022 12:21 PM CDT) athologist Signature Sodium, B CANCELED 135 - 145 01/10/2022 STMA mmol/L 8:14 PM CDT Comment: REVISED RESULTS ----PREVIOUSLY REPORTED ---- 138, Flagged as: Normal (Reported 01/10/2022 12:24) Specimen Anatomical Collection Method Collection Time Receive d Time (Source) Location / / Volume Laterality Blood 01/10/2022 12:21 01/10/2022 PM CDT 12:21 PM CDT Narrative [facility] - 01/10/2022 8:14 PM CDT Sodium, B was cancelled on 01/10/2022 at 20:14; RBS update. Eileen Amezquita APRN, CRNA, MNA LAB BLOOD NON ADD-ON Performing Organization Address City/[facility] Phon e Number [facility] [address] [place], [place] [address] [place] [address] [facility] 200 [facility] Patient Status (01/10/2022 12:21 PM CDT) P athologist Signature FIO2 0.50 0.21=AIR 01/10/2022 12:21 STMA PM CDT Specimen Anatomical Collection Method Collection Time Receive d Time (Source) Location / / Volume Laterality Blood 01/10/2022 12:21 01/10/2022 PM CDT 12:21 PM CDT Eileen K Amezquita COUNTERINTELLIGENCE ANALYST, CEMETERY WARDEN, MNA LAB BLOOD NON ADD-ON Performing Organization Address City/[facility] Phon e Number [facility] - [address] [place], [place] [address] [place] [address] [facility] [address] [facility] Glucose, Whole Blood (01/10/2022 12:21 PM CDT) athologist Signature Glucose 136 70 - 140 01/10/2022 STMA mg/dL 12:24 PM CDT Specimen Anatomical Collection Method Collection Time Receive d Time (Source) Location / / Volume Laterality Blood (Blood, 01/10/2022 12:21 01/10/2022 Arterial Line) PM CDT 12:21 PM CDT Ana Vaz M.D. LAB BLOOD TROPONIN Performing Organization Address City/[facility]/ZIP Code Phon e Number [facility] - [address] [place], [place] [address] [place] [address] [facility] [address] [facility] Potassium, Blood (01/10/2022 12:21 PM CDT) athologist Signature Potassium, B 3.8 3.6 - 5.2 01/10/2022 STMA mmol/L 12:24 PM CDT Specimen Anatomical Collection Method Collection Time Receive d Time (Source) Location / / Volume Laterality Blood (Blood, 01/10/2022 12:21 01/10/2022 Arterial Line) PM CDT 12:21 PM CDT Ana Vaz M.D. LAB BLOOD NON ADD-ON Performing Organization Address City/State/ZIP Code Phon e Number [facility] - [address] [place], [place] [address] [place] [address] [facility] [address] Calcium, Ionized (01/10/2022 12:21 PM CDT) athologist Signature Calcium, 5.01 4.65 - 5.30 01/10/2022 STMA Ionized, B mg/dL 12:24 PM CDT Specimen Anatomical Collection Method Collection Time Receive d Time (Source) Location / / Volume Laterality Blood (Blood, 01/10/2022 12:21 01/10/2022 Arterial Line) PM CDT 12:21 PM CDT Ana Vaz M.D. LAB BLOOD NON ADD-ON Performing Organization Address City/State/[facility] Code Phon e Number [facility] - [address] [place], [place] [address] [place] [address] [facility] [address] [facility] (ABNORMAL) Blood Gas with Coox, Arterial (01/10/2022 [...] LAB BLOOD NON ADD-ON Performing Organization Address City/State/[facility] Phon e Number [facility] - [address] [place], [place] [address] [place] [address] [facility] [facility] [address] [facility] [place] Surgical Pathology, Frozen Lab (01/10/2022 12:03 PM CDT) Component Value Ref Test Analysis Performed At [facility] Range Method Time Signature 01/14/2022 STMA 5:24 PM CDT Participated in Kierra Wilson -Pathology Fellow [facility] the Lashon Talley M.D.-Pathology Resident 5:24 PM CDT Interpretation Liliam Burr M.D. -Pathology Resident Report Bryanna Sanchez M.D. 01/14/2022 STMA electronically 5:24 PM CDT signed by I verify that I have examined all relevant slides/materials for the specimen(s) and rendered or confirmed the diagnosis. Seen in consultation with: Felisha Silveira M.D., Ph.D. Frozen A. ??Brain, left temporal lesion, smears: ??High-grade glioma. [facility] Intraoperative 5:24 PM CDT Report Signed by Bryanna Sanchez M.D. 01/10/2022 5:19 PM Gross Description A. ??Received fresh labeled left brain temporal lesion is 01/14/2022 STMA a 5:24 PM CDT 5.9 x 5.3 x 2.8 cm portion of brain with extensive hemorrhage. ??Smears prepared. ??Appliances Sample Maker tissue submitted for permanent sections. ??A portion of tissue is collected for potential future ancillary studies. ??After clinical evaluation, residual tissue is procured for IRB [id number]. ??Grossed by Lashon Talley M.D.-Pathology Resident. B. ??Received fresh labeled left stereotactic tumor core is a 1.2 x 0.8 x 0.6 cm portion of brain. ??All submitted for permanent sections. ??Grossed by Jose De La Paz, SAMMI([facility]). C. ??Received fresh labeled left temporal brain lesion is a 3 x 3 x 0.5 cm aggregate of brain tissue admixed with blood. All submitted for permanent sections. ??After clinical evaluation, residual tissue is procured for IRB [id number]. Grossed by Jose Johnson PA([facility]). D. ??Received fresh within three CUSA traps labeled left temporal brain lesion cusa socks is a 6 x 6 x 1 cm aggregate of friable fragments of brain tissue admixed with blood. ??Appliances Sample Maker tissue submitted for permanent sections. ??After clinical evaluation, residual tissue is procured for IRB [id number]. ??Grossed by Jose Johnson PA([facility]). 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 See comment. 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 The biopsy specimen lacked microvascular proliferation and tumor necrosis. By immunohistochemistry, the tumor cells were negative for IDH1-R132H and showed retained ATRX expression. 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 Specimen (Source) Anatomical Collection Method Collection Time Re ceived Time Location / / Volume Laterality Tissue (Brain, 01/10/2022 12:03 Left) PM CDT Comment: IRB #[id number] Tissue (Brain, Left) 01/10/2022 2:36 PM CDT Comment: IRB #[id number] Tissue (Brain, Left) 01/10/2022 2:57 PM CDT Comment: IRB #[id number] Tissue (Brain, Left) 01/10/2022 3:07 PM CDT Comment: IRB #[id number] Narrative This result has an attachment that is no t available. Charles Ivey M.D., Ph.D. LAB SURG PATH ORDERABLES Performing Organization Address City/[facility]/ZIP Code Phon e Number [facility] - [address] [facility] Patient Status (01/10/2022 11:53 AM CDT) athologist Signature FIO2 0.50 0.21=AIR 01/10/2022 11:53 STMA AM CDT Specimen Anatomical Collection Method Collection Time Receive d Time (Source) Location / / Volume Laterality Blood 01/10/2022 11:53 01/10/2022 AM CDT 11:53 AM CDT Eileen Amezquita COUNTERINTELLIGENCE ANALYST, CEMETERY WARDEN, MNA LAB BLOOD NON ADD-ON Performing Organization Address City/[facility]/ZIP [facility] Phon e Number [facility] - [address] [place], [place] [address] Glucose, Whole Blood (01/10/2022 11:53 AM CDT) athologist Signature Glucose 135 70 - 140 01/10/2022 STMA mg/dL 11:55 AM CDT Specimen Anatomical Collection Method Collection Time Receive d Time (Source) Location / / Volume Laterality Blood (Blood, 01/10/2022 11:53 01/10/2022 Arterial Line) AM CDT 11:53 AM CDT Luda Galindo M.D. LAB BLOOD TROPONIN Performing Organization Address City/State/ZIP Code Phon e Number [facility] - [address] [place], [place] [address] [place] [address] [facility] [address] Potassium, Blood (01/10/2022 11:53 AM CDT) athologist Signature Potassium, B 3.8 3.6 - 5.2 01/10/2022 STMA mmol/L 11:55 AM CDT Specimen Anatomical Collection Method Collection Time Receive d Time (Source) Location / / Volume Laterality Blood (Blood, 01/10/2022 11:53 01/10/2022 Arterial Line) AM CDT 11:53 AM CDT Luda Galindo M.D. LAB BLOOD NON ADD-ON Performing Organization Address City/State/ZIP Code Phon e Number [facility] - [address] [place], [place] [address] [place] [address] [facility] [address] Sodium, B (01/10/2022 11:53 [...] Organization Address City/State/ZIP Code Phon e Number [facility] - [address] [place], [place] [address] [place] [address] [facility] [address] Calcium, Ionized (01/10/2022 11:53 AM CDT) P athologist Signature Calcium, 4.94 4.65 - 5.30 01/10/2022 STMA Ionized, B mg/dL 11:55 AM CDT Specimen Anatomical Collection Method Collection Time Receive d Time (Source) Location / / Volume Laterality Blood (Blood, 01/10/2022 11:53 01/10/2022 Arterial Line) AM CDT 11:53 AM CDT Luda Galindo M.D. LAB BLOOD NON ADD-ON Performing Organization Address City/State/ZIP Code Phon e Number [facility] - [address] [place], [place] [address] [facility] [place] [address] [facility] [address] (ABNORMAL) Blood Gas with Coox, Arterial [...] Arterial Line) AM CDT 11:53 AM CDT Luad Galindo M.D. LAB BLOOD NON ADD-ON Performing Organization Address City/[facility]/ZIP [facility] Phon e Number [facility] - [address] [place], [place] [address] [place] [id number] [place] [address] Glucose, Whole Blood (01/10/2022 9:02 AM CDT) athologist Signature Glucose 127 70 - 140 01/10/2022 STMA mg/dL 9:04 AM CDT Specimen Anatomical Collection Method Collection Time Receive d Time (Source) Location / / Volume Laterality Blood (Blood, 01/10/2022 9:02 01/10/2022 Arterial Line) AM CDT 9:02 AM CDT Ana Vaz M.D. LAB BLOOD TROPONIN Performing Organization Address City/[facility]/ZIP [facility] Phon e Number [facility] - [address] [place], [place] [address] [place] [address] Potassium, Blood (01/10/2022 9:02 AM CDT) athologist Signature Potassium, B 4.1 3.6 - 5.2 01/10/2022 STMA mmol/L 9:04 AM CDT Specimen Anatomical Collection Method Collection Time Receive d Time (Source) Location / / Volume Laterality Blood (Blood, 01/10/2022 9:02 01/10/2022 Arterial Line) AM CDT 9:02 AM CDT Ana Vaz M.D. LAB BLOOD NON ADD-ON Performing Organization Address City/State/ZIP Code Phon e Number [facility] - [address] [place], [place] [address] [place], [place] [id number] [place] [address] (ABNORMAL) Sodium, B (01/10/2022 9:02 AM CDT) P athologist Signature Sodium, B 129 (L) 135 - 145 01/10/2022 STMA mmol/L 9:04 AM CDT Specimen Anatomical Collection Method Collection Time Receive d Time (Source) Location / / Volume Laterality Blood (Blood, 01/10/2022 9:02 01/10/2022 Arterial Line) AM CDT 9:02 AM CDT Ana Vaz M.D. LAB BLOOD NON ADD-ON Performing Organization Address City/[facility] Phon e Number [facility] - [address] [place], [place] [address] [place] [address] [address] Calcium, Ionized (01/10/2022 9:02 AM CDT) athologist Signature Calcium, 4.89 4.65 - 5.30 01/10/2022 STMA Ionized, B mg/dL 9:04 AM CDT Specimen Anatomical Collection Method Collection Time Receive d Time (Source) Location / / Volume Laterality Blood (Blood, 01/10/2022 9:02 01/10/2022 Arterial Line) AM CDT 9:02 AM CDT Ana Vaz M.D. LAB BLOOD NON ADD-ON Performing Organization Address City/[facility] Phon e Number [facility] - [address] [place], [place] [address] [place] [address] [address] (ABNORMAL) Blood Gas with Coox, Arterial (01/10/2022 9:02 AM CDT) athologist Signature pO2 217 (H) 83 - [...] Organization Address City/State/ZIP Code Phon e Number [facility] - [address] [place], [place] [address] [place] [address] [facility] 200 [facility] Type and Screen (with reflex Antibody ID) (01/10/2022 8:55 AM CDT) Patholo gist Method Time Signature ABORh O Neg Not 01/10/2022 STRM applicable 9:48 AM CDT Antibody Negative Negative 01/10/2022 STRM Screen 9:59 AM CDT Type & Screen 01/13/2022 01/10/2022 STRM Expiration 23:59 9:48 AM CDT Testing [place] DEFAULT 01/10/2022 STRM Location 9:04 AM CDT Specimen Anatomical Collection Method Collection Time Receive d Time (Source) Location / / Volume Laterality Blood (Blood, 01/10/2022 8:55 01/10/2022 Arterial Line) AM CDT 9:04 AM CDT Resulting Agency Comment Drawn in [id number] by [email or web address] Ana Vaz M.D. LAB BLOOD BANK TEST ORDERABL ES Performing Organization Address City/State/ZIP Code Phon e Number [facility] - [address] [place], [place] [address] [facility] [place] [address] (ABNORMAL) Sodium (01/10/2022 6:33 AM CDT) P athologist Signature Sodium, S 129 (L) 135 - 145 01/10/2022 DTL mmol/L 7:19 AM CDT Specimen Anatomical Collection Method Collection Time Receive d Time (Source) Location / / Volume Laterality Blood (Blood, 01/10/2022 6:33 01/10/2022 Venous) AM CDT 7:07 AM CDT Madiha Castro M.D. LAB BLOOD ADD-ON Performing Organization Address City/State/ZIP Code Phon e Number [facility] - [address] [place], [place] [address] [facility] [place] [address] [facility] [address] (ABNORMAL) Sodium (01/10/2022 12:57 [...] Organization Address City/State/ZIP Code Phon e Number [facility] - [address] [place], [place] [address] [facility] [place] [address] [facility] [address] [facility] Osmolality, Urine (01/09/2022 9:35 PM CDT) athologist Signature Osmolality, U 707 150 - 1150 01/09/2022 DTL mOsm/kg 10:42 PM CDT Specimen Anatomical Collection Method Collection Time Receive d Time (Source) Location / / Volume Laterality Urine (Urine, 01/09/2022 9:35 01/09/2022 Catheter) PM CDT 10:12 PM CDT Madiha Castro M.D. LAB URINE ORDERABLES Performing Organization Address City/State/ZIP Code Phon e Number [facility] - [address] [place], [place] [address] [facility] [place] [address] [facility] [address] [facility] Sodium, Random, Urine (01/09/2022 9:35 PM CDT) [...] Organization Address City/State/ZIP Code Phon e Number [facility] - [address] [place], [place] [address] [facility] [place] [address] [facility] [address] (ABNORMAL) Basic Metabolic Panel (01/09/2022 8:01 PM CDT) P athologist Signature Potassium, P 4.1 3.6 - [...] CDT eGFR-Black/Afr >90 >=60 01/09/2022 STMA ican [place]rydeinig mL/min/BSA 8:26 PM CDT Comment: ----ADDITIONAL INFORMATION---- Estimated GFR calculated using the 2009 CKD_EPI creatinine equation. eGFR Non-Black/ >90 >=60 mL/min/BSA 01/09/2022 8:26 PM CDT STMA Comment: ----ADDITIONAL INFORMATION---- Estimated GFR calculated using the 2009 CKD_EPI creatinine equation. Calcium, Total, P 9.4 8.6 - 10.0 mg/dL 01/09/2022 8:2 6 PM CDT [facility] Glucose, P 146 (H) 70 - 140 mg/dL 01/09/2022 8:26 PM CDT [facility] Specimen Anatomical Collection Method Collection Time Receive d Time (Source) Location / / Volume Laterality Blood (Blood, 01/09/2022 8:01 01/09/2022 Venous) PM CDT 8:09 PM CDT Madiha Castro M.D. LAB BLOOD ADD-ON Performing Organization Address City/State/ZIP Code Phon e Number [facility] - [address] [place], [place] [address] [place] [address] [facility] [address] [facility] SARS Coronavirus 2, RNA, Rapid POC, V Asymptomatic (01/09/2022 7:24 PM CDT) [facility] Method Time Signature SARS Undetected Undetected 01/09/2022 DTLR Coronavirus-2 7:47 PM CDT , RNA, Rapid POC, V Comment: Negative for SARS-CoV-2. The [employer] COVID-19 test is a molecular watson t for SARS-CoV-2, the virus that causes COVID- 19. A Negative result means that the [facility] [employer] COV ID-19 test did not detect SARS-CoV-2 virus in your sample. [facility] [employer] COVID-19 test uses the [employer] Mo nitoring System. This test has received Emergency Use Authorization (EUA) by the U.S. Food and Drug Administration (FDA) and is used per man ufacturer instructions. Performance characteristic s were verified by [facility] in a manner consistent with CLIA requirements. Fact sheets for this Emerg ency Use Authorization (EUA) can be found at the following links: Providers: https://[email or web address].[email or web address]/prov iders.pdf Patients: https://[email or web address].com/documentation/tylor ents.pdf SARS Coronavirus 2, Source Nasopharynx DEFAULT 01/09/2022 7:47 PM CDT DTLR Specimen Anatomical Collection Method Collection Time Receive d Time (Source) Location / / Volume Laterality Varies 01/09/2022 7:24 01/09/2022 (Nasopharynx) PM CDT 7:24 PM CDT Christina Tai P.A.-C., M.S. LAB MICROBIOLOGY - GENERAL ORDERABLES Performing Organization Address City/[facility] Phon e Number PERFORMING LABS, REF [place] [address] INTERFACE Ref Interface [address] [facility] DTLR Performing Labs, [place] [address] Interface [address] [facility] (ABNORMAL) CBC without Differential (01/09/2022 6:05 PM CDT) [facility] gist Method Time Signature Hemoglobin 12.2 11.6 [...] M.S. LAB BLOOD ADD-ON Performing Organization Address City/[facility] Code Phon e Number [facility] - [address] [place], [place] [address] [facility] [place] [place] [address] [facility] [address] [facility] Hemoglobin A1c (01/09/2022 5:58 PM CDT) P athologist Signature Hemoglobin A1c, 5.1 4.0 - 5.6 01/09/2022 DTL B % 7:58 PM CDT Specimen Anatomical Collection Method Collection Time Receive d Time (Source) Location / / Volume Laterality Blood (Blood, 01/09/2022 5:58 01/09/2022 Venous) PM CDT 7:40 PM CDT Marysol Martinez M.D. LAB BLOOD ADD-ON Performing Organization Address City/[facility]/ZIP Code Phon e Number [facility] - [address] [place], [place] [address] [facility] [place] [address] [facility] [address] [facility] ECG 12 Lead (01/09/2022 4:44 PM CDT) P athologist Signature Ventricular Rate 54 BPM MUSE ECG/Min WA Interval 138 ms MUSE QRSD Interval 86 ms MUSE QT Interval 424 ms MUSE QTC Interval 402 ms MUSE P Hooper 27 degrees MUSE R Hooper 44 degrees MUSE T Wave Hooper 54 degrees MUSE Specimen Anatomical Collection Method [...] Cognition Function Deficit Cognitive Communication Decline Cognitive Malignant Neoplasm Of Brain (HCC) documented in this encounter Admitting Diagnoses Diagnosis Tumor Brain (HCC) Malignant Neoplasm Of Brain (HCC) documented in this encounter Administered Medications Inactive Administered Medications - up to 3 most recent administrations Medication Order MAR Action Action Date Dose Rate Site acetaminophen tablet 1,000 mg Given 01/17/2022 11:33 AM CDT 1,00 0 mg (TYLENOL) 1,000 [...] throat, throat irritation, Starting on Fri01/10/22 at 1952 bisacodyL suppository 10 mg (DULCOLAX) 10 mg, rectal, Daily PRN, constipation, Starting on Fri01/10/22 at 1952, Ordered sequence of administration: polyethylen e glycol, then bisacodyl until BM achieved. bupivacaine-EPINEPHrine (PF) 0.25 Given 01/10/2022 9:46 AM CDT 5 mL Scalp %-1:200,000 injection (MARCAINE w/EPI) As needed, Starting on Fri01/10/22 at 0946, Intra-Op calcium carbonate chewable tablet 400 mg of [...] as required, Starting on Fri01/12/22 at 1610 cellulose, oxidized 2 x 14 pad (SURGIC EL) Given 01/10/2022 12:35 PM CDT 1 each As needed, Starting on Fri01/10/22 at 1235, Intra-Op dexAMETHasone tablet 1 mg (DECADRON) 1 mg, [...] Given 01/16/2022 9:37 PM CDT 3 mg gelatin sponge,absorb-porcine 50 sponge Given 01/10/2022 11:02 A M CDT 1 each (GELFOAM) As needed, Starting on Fri01/10/22 at 1059, Intra-Op labetalol injection 10 mg (NORMODYNE,TRA NDATE) 10 mg, intravenous, Every 3 hours PRN, h igh blood pressure, see admin instructions, Starting on Fri01/10/22 at 1952, MCR onl y: use in ICU/PCU only All sites: Do not give if heart rate is less than 60 bpm. Keep systolic blood pressure less than 160 mmHg. Notify prescriber if systolic bloo d pressure remains greater than indicated limit after 3 doses. levETIRAcetam tablet 1,000 mg (KEPPRA) Given 01/17/2022 9:11 AM CDT 1,000 mg 1,000 mg, oral, 2 times daily, First dose on Fri01/12/22 at 0900 Given 01/16/2022 9:38 PM CDT 1,000 mg Given 01/16/2022 9:01 AM CDT 1,000 mg methocarbamoL tablet 750 mg (ROBAXIN) Given 01/16/2022 5:06 AM CDT 750 mg 750 mg, oral, Every 6 hours PRN, muscle spasms, Starting on Fri01/12/22 at 0922 microfibrillar collagen hemostat Given 01/10/2022 11:20 AM CDT 1 application powder (AVITENE FLOUR) As needed, Starting on Fri01/10/22 at 1120, Intra-Op naloxone injection 0.2 mg (NARCAN) 0.2 mg, intravenous, As needed, respirat ory depression, Starting on Bee 01/10/22 at 1952, For respiratory rate less than 8 b reaths per minute or RASS score of -3, -4, -5. Apply oxygen to keep oxygen saturati ons greater than 90% and notify service. oxyCODONE IR tablet 10 mg (ROXICODONE) Given 01/12/2022 1:37 PM CDT 10 mg 10 mg, oral, Every 4 hours PRN, severe pain or score 7-10 of 10, or for pain greater than comfort goal, Starting on Bee 01/10/22 at 1952 Given 01/12/2022 9:34 AM CDT 10 mg Given 01/11/2022 8:07 AM CDT 10 mg oxyCODONE IR tablet 5 mg (ROXICODONE) Given 01/16/2022 9:04 AM CDT 5 mg 5 mg, oral, Every 4 hours PRN, moderate pain or score 4-6 of 10, Starting on Bee 01/10/22 at 1952 Given 01/12/2022 5:16 AM CDT 5 mg Given 01/12/2022 1:07 AM CDT [address] tablet 40 mg (PROTONIX) Given 01/17/2022 6:22 AM CDT 40 mg 40 mg, oral, Daily before breakfast, First dose on Fri01/13/22 at 0700, Swallow whole. Do NOT crush, chew, or split tablet. Given 01/16/2022 6:07 AM CDT 40 mg Given 01/15/2022 6:16 AM CDT 40 mg polyethylene glycol powder [...] nausea, vomiting, Starting on Fri01/10/22 at 2045 sennosides-docusate sodium 8.6-50 mg per tablet 1 tablet (SENOKOT-S) 1 tablet, oral, Bedtime PRN, constipation, Starting on Fri01/11/22 at 0600, For constipation. Hold for diarrhea. thrombin (recombinant) topical Given 01/10/2022 11:20 AM CDT 5,0 00 Units Other solution (RECOTHROM) As needed, Starting on Fri01/10/22 at 1102, Intra-Op Given 01/10/2022 11:02 AM CDT 5,000 Units Othe r vancomycin powder Given 01/10/2022 4:19 PM CDT 1 g As needed, Starting on Bee 01/10/22 at 1619, Intra-Op documented in this encounter Active and Recently Administered Medications Times are shown in CDT. Scheduled Medication Order 01/15/2022 01/16/2022 01/17/2022 acetaminophen tablet 1,000 mg (TYLENOL) 0034 (Given - Provider: Maggie Garces RGiovani.)0525 (Given - Provider: Maggie Garces R.N.)1234 (Given - Provider: Shilpa Burnette RSanjuanitaN.)1709 (Given - Provider: Amelie Gayle R.N.) 0100 (Given - Provider: Luda Yu RSanjuanitaN.)0506 (Given - Provider: Luda Yu R.N.)1235 (Given - Provider: Shilpa Burnette RSanjuanitaN.)1823 (Given - Provider: Hattie Baldwin R.N.) 0010 (Given - Provider: Beryl Hyde R.N.)0622 (Given - Provider: Beryl Orozco R.N.)1133 (Given - Provider: Shilpa Burnette RSanjuanitaN.) 1,000 mg, oral, Every 6 hours, First dos e (after last modification) on Fri01/11/22 at 0600, If patient tolerating oral fluids or has a gastric tube, discontinue injectable opioid and begin this order dexAMETHasone tablet 1 mg (DECADRON)(Linked Group 1) 1 mg, oral, Every 6 hours, First dose on 01/23/22 at 0430, For 4 days dexAMETHasone tablet 2 mg (DECADRON)(Linked Group 1) 2 mg, oral, Every 6 hours, First dose on 01/19/22 at 0430, Fo r 4 days dexAMETHasone tablet 3 mg (DECADRON)(Linked Group 1) 0 525 (Given - Provider: Maggie Garces R.N.)0952 (Given - Provider: Shilpa Burnette RSanjuanitaN.)1648 (Given - Provider: Amelie Gayle R.N.)214 (Given - Provider: Amelie Gayle R.N.) 0334 (Given - Provider: Luda ramesh RSanjuanitaNSanjuanita)0902 (Given - Provider: Tutu QuinteroNSanjuanita)164 (Given - Provider: Hattie Baldwin R.N.)213 (Given - Provider: Hattie Baldwin R.N.) 0402 (Given - Provider: Beryl Orozco RSanjuanitaN.)0911 (Given - Provider: Tutu QuinteroNSanjuanita) 3 mg, oral, Every 6 hours, First dose on 01/15/22 at 0430, Fo r 4 days levETIRAcetam tablet 1,000 mg (KEPPRA) 0952 (Given - P rovider: Shilpa Burnette R.N.)214 (Given - Provider: Amelie Gayle R.N.) 0901 (Given - Provider: Shilpa Burnette R.N.)2138 (Given - Provider: Hattie Baldwin R.N.) 0911 (Given - Provider: Tutu QuinteroNSanjuanita) 1,000 mg, oral, 2 times daily, First dose on 01/12/[address] tablet 40 mg (PROTONIX) 0616 (Given - Provider: Maggie Garces RSanjuanitaNSanjuanita) 0607 (Given - Provider: Luda Yu RSanjuanitaNSanjuanita) 0622 (Given - Provider: Beryl Orozco RSanjuanitaNSanjuanita) 40 mg, oral, Daily before breakfast, Fir st dose on 01/13/22 at 0700, Swallow whole. Do NOT crush, chew, or split tablet. PRN Medication Order 01/15/2022 01/16/2022 01/17/2022 benzocaine-menthoL 15-3.6 mg per lozenge 1 lozenge (CEPACOL) 1 lozenge, oral, As needed, sore throat, throat irritation, Starting on Bee 01/10/22 at 1952 bisacodyL suppository 10 mg (DULCOLAX) 10 mg, rectal, Daily PRN, constipation, Starting on Bee 01/10/22 at 1952, Ordered sequence of administration: polyethylene glycol, then [...] admin instructions, Starting on Bee 01/10/22 at 195, MCR only: use in ICU/PCU only All [...] IR tablet 10 mg (ROXICODONE)(Linked Group 2) 903 (See Alternative - Provider: Shilpa Burnette R.N.) 10 mg, oral, Every 4 hours PRN, severe p ain or score 7-10 of 10, or for pain greater than comfort goal, Starting on Bee 01/10/22 at 195 oxyCODONE IR tablet 5 mg (ROXICODONE)(Linked Group 2) 903 (Given - Provider: Shilpa Burnette R.N.) 5 mg, oral, Every 4 hours PRN, moderate pain or score 4-6 of 10, Starting on Fri01/10/22 at 1951 polyethylene glycol powder packet 17 g (MIRALAX) 17 g, oral, Daily PRN, constipation, Sta rting on Fri01/11/22 at 0557, Ordered sequence of administration: polyethylene glycol, then bisacodyl until BM achieved. Avoid mixing with starch-based thickened liquids. prochlorperazine injection 10 mg (COMPAZINE) 10 mg, intravenous, Every 6 hours PRN, n ausea, vomiting, Starting on Fri01/10/22 at 2044 sennosides-docusate sodium 8.6-50 mg per tablet 1 [...] 4-6 of 10, Starting on Fri01/10/22 at 1951 Or oxyCODONE IR tablet 10 mg (ROXICODONE)Jump to med 10 mg, oral, Every 4 hours PRN, severe p ain or score 7-10 of 10, or for pain greater than comfort goal, Starting on Fri01/10/22 at 1952 documented in this encounter Additional Health Concerns Infection Onset Date Last Indicated Resolved Time COVID19 Pending 01/09/2022 01/09/2022 01/09/2022 7:47 PM CDT documented as of this encounter
--- OUTSIDE RECORDS SUMMARY | 2022-03-12 14:35 | XMS_ITS | Encounter Summary ---
:1970 Author Organization [facility] Address [address] [place] [address] Care Team Providers Name Role Phone Unavailable Primary Care Provider Unavailable Reason for Visit Outpatient (Routine) - Closed Specialty Diagnoses / Procedures Referred By Contact Refer red To Contact Neurological Surgery Diagnoses Mass Brain Evangelist Salinas M.D., [facility] Ph.D. [address] [place] [address] Referral ID Status Reason Start Date Expiration Date Visits Requ ested Visits Authorized [id number] Closed 01/01/2022 01/01/2023 1 1 Encounter Details Date Type Department Care Team Description 01/09/2022 Comprehensive Visit Department of Ivey, Charles Ojeda Ma ss Brain Neurologic Surgery in [place], Ph.D . [address] [place] [phone] Social History Tobacco Use Types Packs/Day Years [...] or relatives? How often do you attend methodist or More than 4 times per year 01/07/2022 faith services? Do you belong to any clubs or No 01/07/2022 organizations such as methodist groups, unions, fraSurveyMonkey or athletic groups, or school groups? How [...] have completed or the highest Maulik, MEd, LICENSED DIRECT ENTRY MIDWIFE, 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 Sex Assigned at Date Recorded Female 01/07/2022 11:11 AM CDT documented as of this encounter Progress Notes Charles Ivey M.D., Ph.D. - 01/09/2022 4:30 PM CDT Please see dictated consultation note from 01/09/2022. documented in this encounter Plan of Treatment Upcoming Encounters Date Type Specialty Care Team Description 03/12/2022 Appointment Radiation Oncology Stephanie Gleason M.D. [address] [place] [address] 03/12/2022 Appointment Radiation Oncology Stephanie Gleason M.D. [address] [place] [phone] 03/13/2022 Appointment Radiation Oncology Stephanie Gleason M.D. [address] [place] [phone] 03/14/2022 Appointment Radiation Oncology Stephanie Gleason M.D. [address] [place] [phone] 03/25/2022 Ancillary Procedure Ophthalmology Chas Shin M.D. [address] [place] [phone] 03/25/2022 Ancillary Procedure Ophthalmology 03/25/2022 Ancillary Procedure Ophthalmology Chas Shin M.D. [address] [place] [phone] 03/26/2022 Ancillary Procedure Ophthalmology Rebeca Valle, Tu.A.-C., M.S. [address] [place] [phone] 03/26/2022 Comprehensive Visit Ophthalmology Chas Shin M.D. [address] [place] [phone] 03/29/2022 Comprehensive Visit Endocrinology Farzana Allen M.D. [address] [place] [phone] 04/04/2022 Appointment Radiology Christina Tai P.A.-C., M.S. [address] [place] [phone] 04/04/2022 Office Visit Oncology Vini Maki M.D., Ph.D. [address] [place] [phone] 04/04/2022 Office Visit Neurological Surgery Charles Ivey M.D., Ph.D. [address] [place] [phone] 05/03/2022 Comprehensive Visit Clinical Genomics Sanya Mehta M.D. [address] [place] [phone] 05/06/2022 Clinical Communication Admitting/Central Scheduling 05/09/2022 Office Visit Oncology Farzana Allen M.D. [address] [place] [phone] documented as of this encounter Visit Diagnoses Diagnosis Mass Brain documented in this encounter
--- OUTSIDE RECORDS SUMMARY | 2022-03-12 14:35 | XMS_ITS | Encounter Summary ---
:1970 Author Organization [facility] Address [address] [place] [address] Care Team Providers Name Role Phone Unavailable Primary Care Provider Unavailable Reason for Visit Auth/Cert Specialty Diagnoses / Procedures Referred By Contact Refer red To Contact Diagnoses Malignant Neoplasm Of Brain (HCC) Procedures GA CRANIOT SUBDURAL IMPL ELECTRODE GA MAPPING CORTICAL INITIAL HR Awake left temporoparietal stereotactic craniotomy tumor resection, speech mapping, intraop MRI, supine position. Referral ID Status Reason Start Date Expiration Date Visits Requ ested Visits Authorized [id number] 1 1 Encounter Details Date Type Department Care Team Description 01/10/2022 Anesthesia Event RST ROMB MAIN OR Michael Tanner M.D., M.S. 200 [place] [phone] 12[address] [facility] Luda Galindo M.D. [address] [place] [address] [phone] [place] [phone] Anesthesia Record Procedure Summary Procedure Name Responsible Anesthesia Start Anesthesia Stop Anesthesiologist Time Time Asleep left Michael Tanner, 01/10/22 0809 01/10/22 1 810 marion Cortes, M.S. stereotactic craniotomy tumor resection, speech mapping, supine position, intraoperative MRI, BK ultrasound. (Left: Head) Events Date Time Event Comment 01/10/2022 0809 An Start Machine/Equipmen t Checked Infection Precautions Foll owed Procedure/Site Verified NPO Sta tus Verified Supine Standard ASA Mon itors Applied 0817 An Induction 0822 An Intubation 0911 Ryan On 0924 Turnover to Proceduralist 0958 Proc Start 1248 Quick Note Transferred into MRI 54 for intraop MRI 1335 Quick Note To OR 216 from M RI 54 1642 Proc Fin 1650 Ryan Off 1655 Quick Note To MRI 54 from 2 16 1743 Quick Note To OR 216 from M RI 54 1747 Turnover to ANE Staff 1753 Airway Removal Criteria Met 1753 Extubation/Airway Removed 1758 an stop data 1810 An End I completed my h andoff to the receiving staff during [facility] 1. Identified the patient 2. Ident ified the responsible provider 3. Revi ewed the pertinent medical history 4. Discussed the surgical course 5. Review ed intra-op anesthesia management and i ssues during anesthesia 6. Set expectati ons for post-procedure period 7. Allowe d opportunity for questions and ac knowledgement of understanding. Name Total fentanyl injection 50 mcg/mL 275 mcg lidocaine 2% (mg) injection 40 mg propofol 10 mg/mL 340 mg propofol 10 mg/mL infusion 3,637.86 mg rocuronium 10 mg/mL injection 150 mg vecuronium 10 mg injection 26 mg ondansetron 4 mg/2 mL injection 4 mg sugammadex 100 mg/mL injection 200 mg dexamethasone 10 mg/mL injection 10 mg levETIRAcetam in NaCl (iso-os) IVPB 1,000 mg (KEPPRA) 1,000 mg phenylephrine 80 mcg/mL in NaCl 0.9% 250 mL infusion 4 .52 mg albumin human bottle 5% 750 mL mannitol 25% injection 47.5 g ceFAZolin 6 g acetaminophen tablet 1,000 mg (TYLENOL) 0 mg acetaminophen 1,000 mg/100 mL injection 1,000 mg Lactated Ringers Free Drip 2,200 mL lactated ringers free drip 3,000 mL Agents No agents on file. Blood No blood administrations on file. Lines, Drains, and Airways Type Details Placement Removal Wound 01/10/22; 1514; Incision; 01/10/22 1514 by Head (Comment); Left, Yomaira Gilmore, RSanjuanitaN. Upper Peripheral IV Placement Date: 01/09/22; 01/09/22 1723 by 01/12 1521 by Placement Time: 1723; Jodi Cartwright Klug, Bro oke E Catheter Size: 22 G; R.N. Orientation: Left; Location: Hand; Site Prep: Chlorhexidine (Preferred); Technique: Anatomical landmarks; Inserted by: shefali; Insertion Attempts: 1; Removal Date: 01/12/22; Removal Time: 152; Removal Reason: No longer in place Indwelling Urinary Placement Date: 01/09/22; 01/09/222136 by 1215 by Catheter Placement Time: 2136; Mary Mckoy [place] i, Michael Type: Latex, Triple-lumen KID CLUB ATTENDANT V., R. N. (Original order for 3-way); Size: 20 Fr.; Balloon Size: 30 mL; Urine Returned: Yes; Removal Date: 01/12/22; Removal Time: 1214; Removal Reason: Per order ETT Placement Date: 01/10/22; 01/10/22821 by 01/10 by Placement Time: 821 Nicholas Higuera Hanson, Amy M, (created via procedure MANAGEMENT PLANNER, HEAD OF TRAINING AND DEVELOPMENT MANAGEMENT PLANNER, CRN A, DNAP documentation); Mask Ventilation: Easy mask; Type: Standard ETT; Single Lumen Tube Size: 7 mm; Cuffed: Yes; Location: Oral; Grade View: Grade 1; Insertion Attempts: 1; Placement Verification: Bilateral breath sounds, Positive ETCO2, Symmetrical chest wall movement; Removal Date: 01/10/22; Removal Time: 175 Arterial Line Placement Date: 01/10/22; 01/10/22841 by 01/12 0003 by Placemnt Time: 841 Nicholas Higuera Do, Anna J, R.N. (created via procedure MANAGEMENT PLANNER, HEAD OF TRAINING AND DEVELOPMENT documentation); Size: 20 G; Orientation: Right; Location: Radial; Site Prep: Chlorhexidine (Preferred); Technique: Anatomical landmarks; Insertion Attempts: 1; Securement: Securement dressing, Securement device; Removal Date: 01/12/22; Removal Time: 0003; Removal Reason: Per order Peripheral IV Placement Date: 01/10/22; 01/10/22 09 by 01/12 0751 by Placement Time: 0902; Nicholas Higuera Heesch, Ryan E, Catheter Size: 18 G; MARILY GARCIA R.N. Orientation: Left; Location: Foot; Inserted by: mahi; Removal Date: 01/12/22; Removal Time: 075; Removal Reason: Other (Comment) (not needed) Peripheral IV Placement Date: 01/10/22; 01/10/22 0903 by 01/12 1020 by Placement Time: 09; Nicholas Higuera Heesch, Ryan E, Catheter Size: 18 G; MARILY GARCIA R.N. Orientation: Right; Location: Hand; Removal Date: 01/12/22; Removal Time: 1020; Removal Reason: Per protocol documented in this encounter Social History Tobacco Use Types Packs/Day Years [...] have completed or the highest Maulik, MEd, COMMUNICATIONS PLANNER, 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 Sex Assigned at Date Recorded Female 01/07/2022 11:11 AM CDT documented as of this encounter OR Notes Anesthesia Postprocedure Evaluation - Karen Prakash M.D. - 01/10/2022 6:44 PM CDT Patient: Mia Richardson Procedure Summary Date: 01/10/22 Room / Location: [address] / [facility] [place] in [place], [place] Anesthesia Start: 808 Anesthesia Stop: 1809 Procedure: Asleep left temporoparietal stereotactic craniotomy tumor resection, speech mapping, supine position, intraoperative MRI, BK ultrasound. (Left Head) Diagnosis: Malignant Neoplasm Of Brain (HCC) (Malignant Neoplasm Brain (HCC) [C71.9].) Providers: Charles Ivey M.D., Ph.D. Responsible Provider: Michael Tanner M.D., M.S. Anesthesia Type: general ASA Status: 5 - Emergent Anesthesia Type: general Last vitals Vitals Value Taken Time BP 135/85 01/10/22 1830 Temp 37 ??C 01/10/22 1802 Pulse 84 01/10/22 1844 Resp 16 01/10/22 1844 SpO2 99 % 01/10/22 1844 Vitals shown include unvalidated device data. Please reference Vitals flowsheet for most recent vital signs. Anesthesia Post Evaluation Patient Disposition: monitored unit, expectation for recovery time deferred to receiving unit Cardiovascular status: hemodynamics (HR & BP) acceptable Respiratory status: patent airway with spontaneous effort Temperature: normothermic Oxygen requirements: room air Level of consciousness: awake Pain score: pain adequately controlled and/or at baseline Post Op nausea/vomiting: none Hydration status: euvolemic Anesthesia Procedure Notes - Nicholas Higuera, MANAGEMENT PLANNER, HEAD OF TRAINING AND DEVELOPMENT - 01/10/2022 9:49 AM CDTAssociated Order(s): Airway Airway Date/Time: 01/10/2022 8:22 AM Performed by: Nicholas Higuera APRN, CRNA Authorized by: Luda Galindo M.D. Patient location during procedure: OR / Procedure Area PROCEDURE DETAILS: Mask difficulty assessment: easy mask Final airway type: video laryngoscope Laryngeal Manipulation: no Final best view of glottic structures - Cormack/Lehane Score: grade 1 ETT location: oral VL device: glide scope Platter scope blade size: 3 Adult tube size: 7 Adult ETT distance at teeth/gum: 22 Oral tube type: standard ETT Cuffed: yes Number of attempt to successful placement: 1 Airway confirmation: bilateral breath sounds, positive ETCO2 and bilateral chest rise Other previous techniques attempted: none PRE PROCEDURE DETAILS: Pre evaluation for airway management: procedure Urgency: elective Preop assessment of probable difficulty: questionable / suspicious difficult airway Preoxygenation: bag valve mask SEDATION / ANESTHESIA Anesthesia method: anesthesia POST PROCEDURE DETAILS: Procedure outcome: successful Airway event: no complications Anesthesia Procedure Notes - Nicholas Higuera APRN, CRNA - 01/10/2022 9:46 AM CDTAssociated Order(s): Invasive Catheter Invasive Catheter Date/Time: 01/10/2022 8:42 AM Performed by: Nicholas Higuera APRN, CRNA Authorized by: Luda Galindo M.D. Location: OR PROCEDURE DETAILS: Line type: arterial Laterality: right Location: radial Location details: new site Age group: adult Catheter diameter: 20 Ga Catheter length (cm): 15 Technique: palpation Monitored: yes Number of attempts: 1 UNIVERSAL PROTOCOL All relevant documentation and testing were reviewed and available. All required blood products, implants, devices and or special equipment were made available as applicable. Pre-procedure verificationwas conducted and the correct site was marked if required. A fire risk assessment was done as applicable. The procedural time-out was conducted prior to performing the procedure and confirmed in a procedural pause. PRE-PROCEDURE DETAILS: Appropriate hand hygiene, gown, cap, mask, protective eyewear, sterile gloves, skin preparation, sterile drape, and strict aseptic technique were utilized as applicable for the procedure.: yes Skin preparation: chlorhexidine SEDATION / ANESTHESIA Anesthesia method: none POST-PROCEDURE DETAILS: Procedure completed successfully: yes Line secured: secured with sutureless device Chlorhexidine disc around insertion site and under catheter with slight turn: yes Complications - arterial: none Anesthesia Preprocedure Evaluation - Ana Vaz M.D. - 01/10/2022 8:59 AM CDT Preprocedure Anesthesia & H&P Assessment Procedure Summary Anesthesia Start Date/Time: 01/10/22808 Procedure: Asleep left temporoparietal stereotactic craniotomy tumor resection, speech mapping, supine position, intraoperative MRI, BK ultrasound. (Left Head) Diagnosis: Malignant Neoplasm Of Brain (HCC) [C71.9] Pre-op diagnosis: Malignant Neoplasm Brain (HCC) [C71.9]. Location: [address] / [facility] [place] in [place], [place] Providers: Charles Ivey M.D., Ph.D. Pertinent components of the patient's history including current problem list, medical history, surgical history, family history, social history, medications and allergies were reviewed. Present illness and pre-op diagnosis were confirmed. The planned surgery / procedure was verified with the patient / legal guardian. The patient's general health condition remains unchanged RELEVANT COMORBID CONDITIONS NEURO (+) Malignant Neoplasm Of Brain (HCC) (+) Tumor Brain (HCC) ONC (+) Malignant Neoplasm Of Brain (HCC) OBJECTIVE PHYSICAL EXAMINATION Airway (HEENT) Mallampati: II TM Distance: >3 FB Neck ROM: Full Mouth Opening: >3 cm Cardiovascular Rhythm: Regular Functional Capacity: <4 METS Pulmonary Pulmonary Assessment: Non labored General / Constitutional Constitutional Assessment: Overweight General State of Health:: healthy appearing and calm Neurological Neurologic Assessment:??cognitive deficit ASSESSMENT / PLAN ANESTHESIA PLAN ASA: 5 - Emergent Anesthesia Plan: general Emergency exception, Consent implied due to medical emergency and inability to obtain timely consentfrom the patient or an alternative decision maker Risks/Benefits/Alternatives of Blood transfusion discussed with patient / legal guardian, including an opportunity to ask questions and/or decline some or all transfusion therapies. The patient / legalguardian consented to the use of all blood products, as deemed medically necessary Approval to Proceed: approved for anesthesia Consented through mother. Unable to give consent due to pathology documented in this encounter Plan of Treatment Upcoming Encounters Date Type Specialty Care Team Description 03/12/2022 Appointment Radiation Oncology Stephanie Gleason M.D. [address] [place] [phone] 03/12/2022 Appointment Radiation Oncology Stephanie Gleason M.D. [address] [place] [phone] 03/13/2022 Appointment Radiation Oncology Stephanie Gleason M.D. [address] [place] [phone] 03/14/2022 Appointment Radiation Oncology Stephanie Gleason M.D. [address] [place] [phone] 03/25/2022 Ancillary Procedure Ophthalmology Chas Shin M.D. [address] [place] [phone] 03/25/2022 Ancillary Procedure Ophthalmology 03/25/2022 Ancillary Procedure Ophthalmology Chas Shin M.D. [address] [place] [phone] 03/26/2022 Ancillary Procedure Ophthalmology Rebeca Valle P.A.-C., M.S. [address] [place] [phone] 03/26/2022 Comprehensive Visit Ophthalmology Chas Shin M.D. [address] [place] [address] [phone] 03/29/2022 Comprehensive Visit Endocrinology Farzana Allen M.D. [address] [place] [address] [phone] 04/04/2022 Appointment Radiology Christina Tai P.A.-C., M.S. [address] [place] [address] [phone] 04/04/2022 Office Visit Oncology Vini Maki M.D., Ph.D. [address] [place] [address] [phone] 04/04/2022 Office Visit Neurological Surgery Charles Ivey M.D., Ph.D. [address] [place] [address] [phone] 05/03/2022 Comprehensive Visit Clinical Genomics Sanya Mehta M.D. [address] [place] [phone] 05/06/2022 Clinical Communication Admitting/Central Scheduling 05/09/2022 Office Visit Oncology Farzana Allen M.D. [address] [place] [phone] documented as of this encounter Procedures Procedure Name Priority Date/Time Associated Comments Diagnosis LDA ANE ARTERIAL LINE Routine 01/10/2022 8:42 Re sults for this INSERTION AM CDT procedure are i n the results section. GA ARTL CATH/CNULA Routine 01/10/2022 8:42 Resul ts for this MONITOR PERC AM CDT procedure are i n the results section. LDA ANE ENDOTRACHEAL Routine 01/10/2022 8:22 Res ults for this AIRWAY AM CDT procedure are i n the results section. documented in this encounter Results GA ARTL CATH/CNULA MONITOR PERC, LDA ANE ARTERIAL [...] 8:22 AM Performed by: Nicholas Higuera APRN, HEAD OF TRAINING AND DEVELOPMENT Authorized by: Luda Galindo M.D. Patient location during procedure: OR / Procedure Area PROCEDURE DETAILS: Mask difficulty assessment: easy mask Final airway type: video laryngoscope Laryngeal Manipulation: no ?? Final best view of glottic structures - Cormack/Lehane Score: grade 1 ETT location: oral VL device: glide scope Platter scope blade size: 3 Adult tube size: [...] no complications Luda Galindo M.D. ANESTHESIA ORDERABLES documented in this encounter Visit Diagnoses Not on filedocumented in this encounter Administered Medications Inactive Administered Medications - up to 3 most recent administrations Medication Order MAR Action Action Date Dose Rate Site acetaminophen injection Given 01/10/2022 4:01 PM CDT 1,000 mg intravenous, Administer over 15 Minutes, As needed, Starting on Bee 01/10/22 at 1601, Anesthesia Intra-op albumin human 5 % injection Given 01/10/2022 4:10 PM CDT 250 mL intravenous, As needed, Starting on Bee 01/10/22 at 0920, Anesthesia Intra-op Given 01/10/2022 9:20 AM CDT 500 mL ceFAZolin injection (ANCEF) Given 01/10/2022 3:28 PM CDT 2 g intravenous, As needed, Starting on Bee 01/10/22 at 0953, Anesthesia Intra-op Given 01/10/2022 12:38 PM CDT 2 g Given 01/10/2022 9:53 AM CDT 2 g dexAMETHasone injection (DECADRON) Given 01/10/2022 9:19 AM CDT 10 mg intravenous, As needed, Starting on Bee 01/10/22 at 0919, Anesthesia Intra-op fentaNYL injection (SUBLIMAZE) Given 01/10/2022 4:42 PM CDT 25 mcg intravenous, As needed, Starting on Bee 01/10/22 at 0820, Anesthesia Intra-op Given 01/10/2022 10:08 AM CDT 50 mcg Given 01/10/2022 10:00 AM CDT 50 mcg lactated ringers New Bag 01/10/2022 2:51 PM CDT intravenous, Continuous Infusion: Per Instructions PRN, Starting on Bee 01/10/22 at 0810, Anesthesia Intra-op New Bag 01/10/2022 10:43 AM CDT New Bag 01/10/2022 8:10 AM CDT lactated ringers New Bag 01/10/2022 2:51 PM CDT intravenous, Continuous Infusion: Per Instructions PRN, Starting on Bee 01/10/22 at 0828, Anesthesia Intra-op New Bag 01/10/2022 11:26 AM CDT New Bag 01/10/2022 8:28 AM CDT levETIRAcetam in NaCl (iso-os) IVPB 1,000 Given 2021 9:20 AM CDT 1,000 mg mg (KEPPRA) 1,000 mg, intravenous, at 400 mL/hr, Administer over 15 Minutes, Once, On Bee 01/10/22 at 0900, For 1 dose, Intra-Op lidocaine (PF) (cardiac) injection Given 01/10/2022 8:20 AM CDT 40 mg intravenous, As needed, Starting on Bee 01/10/22 at 0820, Anesthesia Intra-op mannitol injection Given 01/10/2022 9:34 AM CDT 10 g intravenous, As needed, Starting on Bee 01/10/22 at 0926, Anesthesia Intra-op Given 01/10/2022 9:30 AM CDT 12.5 g Given 01/10/2022 9:26 AM CDT 12.5 g ondansetron (PF) injection (ZOFRAN) Given 01/10/2022 5:50 PM CDT 4 mg intravenous, As needed, Starting on Bee 01/10/22 at 1750, Anesthesia Intra-op phenylephrine 80 Rate/Dose Change 01/10/2022 2:00 0.2 mcg/kg/min 14. 655 mL/hr mcg/mL in NaCl 0.9% PM CDT 250 mL infusion 0-1 mcg/kg/min ? 97.7 kg Dosing weight (0-73.275 mL/hr, rounded to 0-73.28 mL/hr), intravenous, Continuous, Starting on Bee 01/10/22 at 0645, Intra-Op, 20 mg in 250 mL, Patient Type: Standard, initiate at: Other, Rate: Per Provider, Titrate at: Other, Titrate: Per Provider, Goal: Other, Goal: Per Provider Restarted 01/10/2022 1:41 PM CDT 0.1 mcg/kg/min 7.328 mL/hr Rate/Dose Change 01/10/2022 9:17 AM CDT 0.1 mcg/kg/min 7.328 mL/hr propofol 10 mg/mL infusion Rate/Dose 01/10/2022 75 mcg/kg/min 43.965 (DIPRIVAN) Change 12:19 PM CDT mL/hr intravenous, Continuous Infusion: Per Instructions PRN, Starting on Bee 01/10/22 at 0818, Anesthesia Intra-op Rate/Dose Change 01/10/2022 12:02 PM CDT 130 mcg/kg/min 76.206 mL/h r New Bag 01/10/2022 8:18 AM CDT 150 mcg/kg/min 87.93 mL/hr propofoL injection (DIPRIVAN) Given 01/10/2022 5:12 PM CDT 50 mg intravenous, As needed, Starting on Bee 01/10/22 at 0821, Anesthesia Intra-op Given 01/10/2022 10:29 AM CDT 20 mg Given 01/10/2022 10:21 AM CDT 20 mg rocuronium injection (ZEMURON) Given 01/10/2022 9:19 AM CDT 50 mg intravenous, As needed, Starting on Bee 01/10/22 at 0820, Anesthesia Intra-op Given 01/10/2022 8:20 AM CDT 100 mg sugammadex injection (BRIDION) Given 01/10/2022 5:48 PM CDT 200 mg intravenous, As needed, Starting on Bee 01/10/22 at 1748, Anesthesia Intra-op vecuronium injection (NORCURON) Given 01/10/2022 5:16 PM CDT 2 mg intravenous, As needed, Starting on Bee 01/10/22 at 1006, Anesthesia Intra-op Given 01/10/2022 4:31 PM CDT 2 mg Given 01/10/2022 4:01 PM CDT 2 mg documented in this encounter
--- OUTSIDE RECORDS SUMMARY | 2022-03-12 14:35 | XMS_ITS | Encounter Summary ---
:1970 Author Organization [facility] Address [address] [place] [address] Care Team Providers Name Role Phone Unavailable Primary Care Provider Unavailable Reason for Visit Outpatient (Routine) - Closed Specialty Diagnoses / Procedures Referred By Contact Refer red To Contact Oncology Rebeca Valle P .A.-C., M.S. [facility] [address] [place] [phone] Referral ID Status Reason Start Date Expiration Date Visits Requ ested Visits Authorized [id number] Closed 01/09/2022 01/09/2023 1 1 Encounter Details Date Type Department Care Team Description 01/09/2022 Office Visit Department of Rebeca Valle Malignan t Neoplasm Of Oncology in Tu.Ana, M.S. Brain (HCC) (Primary [place], [place] 200 [facility]) [address] [place] [phone] Social History Tobacco Use Types Packs/Day Years [...] More than 4 times per year 01/07/2022 hinduism services? Do you belong to any clubs or No 01/07/2022 organizations such as religious groups, unions, [employer] or athletic groups, or school groups? How [...] have completed or the highest Maulik, MEd, RESISTOR TESTER, 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 Sex Assigned at Date Recorded Female 01/07/2022 11:11 AM CDT documented as of this encounter Progress Notes Rebeca Valle P.A.-C., M.S. - 01/09/2022 1:00 PM CDT Images from the original note were not included. SUBJECTIVE COLLABORATING ONCOLOGIST: Dr. Cedeno PRIMARY [place] ONCOLOGIST: No care maintenance team leader to display CHIEF COMPLAINT/REASON FOR VISIT Mia Richardson is a 51 y.o. 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 Salinas next week. - short interval visit today due to symptoms and MRI changes. HISTORY OF PRESENT ILLNESS Oncology History Oncology [...] sense. The patient was taken to the [facility] with altered mental status. The patient [...] with steroids and Keppra and transferred to [facility]. 11/30/2021 Imaging MRI [...] left mass, biopsy - Astrocytoma, at least INSTALLATION AND REPAIR TECHNICIAN WHO grade 3. See comment. B. Brain, left mass, excision - Astrocytoma, at least INSTALLATION AND REPAIR TECHNICIAN WHO grade 3. See comment. Final Diagnosis: [...] Referral to Dr. Shelbie Ackerman at the [facility]. Discussed that it was okay forthe patient to proceed with chemotherapy and radiation 1 month from biopsy date. Also discussed that it was okay for the patient to travel on a commercial air flight approximately 1 month from biopsy as she was planning for a trip to [place] with her significant other in December. 12/24/[address] Shelbie Ackerman who reviewed the patient's case with Dr. Dunlap and he recommended against additional surgery. Dr. Macias recommended proceeding with a combination of radiation therapy plus temozolomide. Referral to Radiation Oncology at [facility] in [place]. 01/14/2022 - Radiation Therapy Radiation Therapy Treatment Details (Noted on 12/31/2021) Site: Brain Technique: No technique specified Goal: Curative Planned Treatment Start Date: 01/14/2022 INTERVAL HISTORY: Mia Richardson presents today for close interval follow up. In brief, she underwent biopsy on 12/05/2021 - pathology indicating at least grade 3 - astrocytoma, IDH wild type, MGMT unmethylated. Since that time, she has completed dexamethasone taper - which lead to difficulty in language. She was then seen in clinic on 01/03/[address] Cedeno, at that time, dexamethasone was being taken 4mg twice daily. She continued to note symptoms of headaches and language changes. Things were going well until thislast weekend, she started to become more fatigued. Then headaches, vision changes, speech changes, changes in taste and smell presented. She was consistently taking the 4mg twice daily of dexamethasone, however this medicaiton ran out this morning. Dr. Cedeno sent a new prescription. She has taken one tablet (4mg) prior to the visit. Additionally taken 1000mg of Tylenol on two occasions today. REVIEW OF SYSTEMS Constitutional: Positive for fatigue. Eyes: Positive for visual problems. ENT: Negative for difficulty hearing. Gastrointestinal: Negative for constipation, nausea and vomiting. Genitourinary: Negative for incontinence. Neurological: Positive for headaches. Negative for seizures, loss of consciousness, light-headedness, numbness or shooting pain in hands, arms, legs, or feet, loss of balance or tendency to fall easily, slurred speech and weakness in arms or legs. Speech changes, head pain. The following portions of the patient's history were reviewed and updated as appropriate: allergies,current medications, family history, medical history, social history, surgical history and problem list OBJECTIVE There were no vitals taken for this visit. PHYSICAL EXAMINATION Vitals reviewed. Constitutional Appearance: Normal appearance. HENT Head: Normocephalic and atraumatic. Eyes Conjunctiva/sclera: Conjunctivae normal. Skin General: Skin is warm and dry. Neurological Mental Status: She is alert. Cranial Nerves: No cranial nerve deficit. Comments: Gait not assessed. KPS 70 Psychiatric Mood and Affect: Mood normal. Behavior: Behavior normal. Thought Content: Thought content normal. Judgment: Judgment normal. LABORATORY DATA: No visits with results within 1 Week(s) from this visit. Latest known visit with results is: Lab on 01/01/2022 Component Date Value ??? Case Number 12/05/2021 [id number] ??? Participated in the Inte* 12/05/2021 Heath Rodarte M.D. -Pathology Fellow ??? Report electronically si* 12/05/2021 Value:Eduard Pastrana M.D. I verify that I have examined all relevant slides/materials for the specimen(s) and rendered or confirmed the diagnosis. A comprehensive consult with review of records that included clinical notes and imaging reports was performed to assist in the diagnostic assessment of the case. ??? Material Received 12/05/2021 Value:A. [id number]: Brain, left mass 3 stained slides ??? Interpretation 12/05/2021 Value:PRELIMINARY DIAGNOSIS Brain, left temporal-parietal, biopsy and excision ([id number]; 12/05/2021): Mitotically-active infiltrating glioma. See comment. COMMENT A Final Integrated Diagnosis corresponding to the 2020 WHO Classification of INSTALLATION AND REPAIR TECHNICIAN Tumors will be reported subsequently, following receipt of results of next generation sequencing studies being performed by the referring institution. This mitotically-active glioma exhibits appreciable nuclear atypia, favoring astrocytic morphology, and demonstrable mitotic activity in this biopsy sampling (reaching 3 mitoses in 10 high powered garcia) in the absence of microvascular proliferation or necrosis, histologically suggestive of a higher-grade (at least INSTALLATION AND REPAIR TECHNICIAN WHO grade 3) designation on a preliminary basis. Per report (immunostudies not received for review), the tumor resulted negative for IDH1 R132H mutation by surrogate immunohistochemistry, with preserved nuclear expression of ATRX. Given the patient's young age, less common mutations of IDH1/IDH2 are not entirely excluded. As such, a final classification and grade of this tumor is pending the results of next generation sequencing studies reportedly being performed by the referring institution, to evaluate for further diagnostic alterations including IDH status, TERT promoter mutation, chromosomal gain of 7/loss of 10, and/or EGFR amplification. A Final Integrated Diagnosis will be provided in a supplemental report. Per report, outside MGMT promoter studies ([facility]) resulted NEGATIVE for MGMT promoter methylation. RADIOLOGICAL DATA: MRI BRAIN WITH AND WITHOUT IV CONTRAST 1. Technically difficult examination with extensive spurious apparent activation. Left Wernicke activation is very tentatively identified anterolaterally to the enhancing mass. Correlation with intraoperative mapping should be considered. 2. Considerable progression of the tumor since 11/30/2021 with signal and enhancement characteristics suggesting possible dedifferentiation. Increased edema and mass effect. Findings discussed with Dr. Cedeno 01/09/2022 13:00. REPORTS: I personally reviewed current labs and imaging. ASSESSMENT / PLAN 1. Astrocytoma Ms. Cedillo presents today for follow up. [...] was being taken 4mg twice daily. She continued tonote symptoms of headaches and language changes. Things were going well until this last weekend, shestarted to become more fatigued. Then headaches, vision changes, speech changes, changes in taste and smell presented. She was consistently taking the 4mg twice daily of dexamethasone, however this medicaiton ran out this morning. Dr. Cedeno sent a new prescription. She has taken one tablet (4mg) prior to the visit. Additionally taken 1000mg of Tylenol on two occasions today. We reviewed the MRI images from today in comparison to those from 11/30/2021. Please reference images above. Imaging notable for increased contrast enhancement, mass effect, midline shift. These are likely indicating tumor progression and provide an explanation to the new and changed symptoms. During the appointment, noted vision changes, potential right eye bulging/more apparent than the left, speech changes, headaches, taste and smell changes. An additional 4 mg was advised to take during the appointment (total of 8mg taken today). She is currently scheduled for follow up next week with Dr. Salinas's service and scheduled resection. Given the MRI changes and changes in patient presentation - we feel the patient needs to be evaluated by Neurosurgery for consideration of surgery sooner. - first, consult with neurosurgery for possible resection - if unable to resect, recommendation to start Avastin and Radiation therapy with temozolomide. Plan: - consultation with Dr. Ivey of neurosurgery - possible resection tomorrow - recommendation of admission due to imaging and functional status - if not a surgical candidate, recommendation to start Radiation therapy, temozolomide and Avastin - Dr. Ivey is able to visit with the patient today. Plans for admission and surgery tomorrow. Will coordinate follow up with our team and radiation therapy 3 weeks after surgery. We will plan on seeing the patient back in 2-3 weeks post op. However, patient knows to contact us in the interim with any new or worsening symptoms or concerns. This diagnosis and plan was discussed with and decided upon by myself and Dr. Cedeno. Seizures: Keppra 1000mg twice daily Dexamethasone: increased to 8mg twice daily Anticoagulation: not currently taking PATIENT EDUCATION: Ready to learn, no apparent learning barriers were identified; learning preferences include listening. Explained diagnosis and treatment plan; patient expressed understanding of the content. Discussed with the patient we work together as a care team of physicians, nurse practitioners/physician assistants, nurses and other support dba that specialize in this cancer. Also, reviewed the importance of maintaining ongoing care with local oncology team and primary care physician. ADMINISTRATIVE BILLING: I personally spent over half of a total 40 minutes face to face with the patient in counseling and discussion and/or coordination of care as described above. Associated attestation - Karthikeyan Cedeno M.D. - 01/09/2022 5:07 PM CDT I saw and evaluated the patient, participating in the hill portions of the service. I reviewed the note. I agree with the findings and plan. fMRI demonstrated substantial increase in enhancement and edema. Dr. Ivey very kindly saw the patient urgently. Plan is for admission today and tumor resection tomorrow, to be followed by RT and chemotherapy. documented in this encounter Plan of Treatment Upcoming Encounters Date Type Specialty Care Team Description 03/12/2022 Appointment Radiation Oncology Stephanie Gleason M.D. 200 [place] [phone] 03/12/2022 Appointment Radiation Oncology Stpehanie Gleason M.D. [address] [place] [phone] 03/13/2022 Appointment Radiation Oncology Stephanie Gleason M.D. [address] [place] [phone] 03/14/2022 Appointment Radiation Oncology Stephanie Gleason M.D. [address] [place] [phone] 03/25/2022 Ancillary Procedure Ophthalmology Chas Shin M.D. [address] [place] [phone] 03/25/2022 Ancillary Procedure Ophthalmology 03/25/2022 Ancillary Procedure Ophthalmology Chas Shin M.D. [address] [place] [phone] 03/26/2022 Ancillary Procedure Ophthalmology Rebeca Valle P.Domingo.-C., M.S. [address] [place] [phone] 03/26/2022 Comprehensive Visit Ophthalmology Chas Shin M.D. [address] [place] [phone] 03/29/2022 Comprehensive Visit Endocrinology Farzana Allen M.D. [address] [place] [phone] 04/04/2022 Appointment Radiology Christina Tai P.A.-C., M.S. [address] [place] [phone] 04/04/2022 Office Visit Oncology Vini Maki M.D., Ph.D. [address] [place] [phone] 04/04/2022 Office Visit Neurological Surgery Charles Ivey M.D., Ph.D. [address] [place] [phone] 05/03/2022 Comprehensive Visit Clinical Genomics Sanya Mehta M.D. [address] [place] [phone] 05/06/2022 Clinical Communication Admitting/Central Scheduling 05/09/2022 Office Visit Oncology Farzana Allen M.D. [address] [place] [phone] documented as of this encounter Visit Diagnoses Diagnosis Malignant Neoplasm Of Brain (HCC) - Prim uyen documented in this encounter
--- OUTSIDE RECORDS SUMMARY | 2022-03-12 14:35 | XMS_ITS | Encounter Summary ---
:1970 Author Organization [facility] Address [address] [place] [address] Care Team Providers Name Role Phone Unavailable Primary Care Provider Unavailable Encounter Details Date Type Department Care Team Description 01/09/2022 Clinical Communication Department of Rebeca Valle , Oncology in P.A.-C., M.S. [place], [place] [address] [place] [address] 200 [place] [phone] Social History Tobacco Use Types Packs/Day Years [...] More than 4 times per year 01/07/2022 episcopalian services? Do you belong to any clubs [...] 01/07/2022 you have completed or the highest [place], MEd, SOLAR HOT WATER INSTALLER, 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 Sex Assigned at Date Recorded Female 01/07/2022 11:11 AM CDT documented as of this encounter Plan of Treatment Upcoming Encounters Date Type Specialty Care Team Description 03/12/2022 Appointment Radiation Oncology Stephanie Gleason M.D. [address] [place] [phone] 03/12/2022 Appointment Radiation Oncology Stephanie Gleason M.D. [address] [place] [phone] 03/13/2022 Appointment Radiation Oncology Stephanie Gleason M.D. [address] [place] [phone] 03/14/2022 Appointment Radiation Oncology Stephanie Gleason M.D. [address] [place] [address] [phone] 03/25/2022 Ancillary Procedure Ophthalmology Chas Shin M.D. [address] [place] [address] [phone] 03/25/2022 Ancillary Procedure Ophthalmology 03/25/2022 Ancillary Procedure Ophthalmology Chas Shin M.D. [address] [place] [phone] 03/26/2022 Ancillary Procedure Ophthalmology Rebeca Valle P.A.-C., M.S. [address] [place] [phone] 03/26/2022 Comprehensive Visit Ophthalmology Chas Shin M.D. [address] [place] [phone] 03/29/2022 Comprehensive Visit Endocrinology Farzana Allen M.D. [address] [place] [phone] 04/04/2022 Appointment Radiology Christina Tai P.A.-C., M.S. [address] [place] [address] [phone] 04/04/2022 Office Visit Oncology Vini Maki M.D., Ph.D. [address] [place] [phone] 04/04/2022 Office Visit Neurological Surgery Charles Ivey M.D., Ph.D. [address] [place] [phone] 05/03/2022 Comprehensive Visit Clinical Genomics Sanya Mehta M.D. [address] [place] [phone] 05/06/2022 Clinical Communication Admitting/Central Scheduling 05/09/2022 Office Visit Oncology Farzana Allen M.D. [address] [place] [phone] documented as of this encounter Visit Diagnoses Diagnosis Malignant Neoplasm Of Brain (HCC) - Prim uyen documented in this encounter Additional Health Concerns Infection Onset Date Last Indicated Resolved Time COVID19 Pending 01/09/2022 01/09/2022 01/09/2022 7:47 PM CDT documented as of this encounter
--- OUTSIDE RECORDS SUMMARY | 2022-03-12 14:35 | XMS_ITS | Encounter Summary ---
:1970 Author Organization [facility] Address [address] [place] [address] Care Team Providers Name Role Phone Unavailable Primary Care Provider Unavailable Reason for Referral Outpatient (Routine) - Closed Specialty Diagnoses / Procedures Referred By Contact Refer red To Contact Oncology Rebeca Valle P .A.-C., M.S. [facility] [address] [place] [phone] Referral ID Status Reason Start Date Expiration Date Visits Requ ested Visits Authorized [id number] Closed 01/09/2022 01/09/2023 1 1 Encounter Details Date Type Department Care Team Description 01/09/2022 Orders Only Department of Oncology [place] Dionicio, M.A., R.N., [address] [place] [address] [place] [phone] [place] [address] [place] [phone] Social History Tobacco Use Types Packs/Day Years [...] have completed or the highest Maulik, MEd, BRIDGE RIGGER, 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 Sex Assigned at Date Recorded Female 01/07/2022 11:11 AM CDT documented as of this encounter Plan of Treatment Upcoming Encounters Date Type Specialty Care Team Description 03/12/2022 Appointment Radiation Oncology Stephanie Gleason M.D. 200 [place] [phone] 03/12/2022 Appointment Radiation Oncology Stephanie Gleason M.D. [address] [place] [phone] 03/13/2022 Appointment Radiation Oncology Stephanie Gleason M.D. [address] [place] [phone] 03/14/2022 Appointment Radiation Oncology Stephanie Gleason M.D. [address] [place] [phone] 03/25/2022 Ancillary Procedure Ophthalmology Chas Shin M.D. [address] [place] [phone] 03/25/2022 Ancillary Procedure Ophthalmology 03/25/2022 Ancillary Procedure Ophthalmology Chas Shin M.D. [address] [place] [phone] 03/26/2022 Ancillary Procedure Ophthalmology Rebeca Valle P.A.-C., M.S. [address] [place] [address] [phone] 03/26/2022 Comprehensive Visit Ophthalmology Chas Shin M.D. [address] [place] [phone] 03/29/2022 Comprehensive Visit Endocrinology Farzana Allen M.D. [address] [place] [phone] 04/04/2022 Appointment Radiology Christina Tai P.A.-C., M.S. [address] [place] [phone] 04/04/2022 Office Visit Oncology Vini Maki M.D., Ph.D. [address] [place] [phone] 04/04/2022 Office Visit Neurological Surgery Charles Ivey M.D., Ph.D. [address] [place] [phone] 05/03/2022 Comprehensive Visit Clinical Genomics Sanya Mehta M.D. [address] [place] [phone] 05/06/2022 Clinical Communication Admitting/Central Scheduling 05/09/2022 Office Visit Oncology Farzana Allen M.D. [address] [place] [phone] Scheduled Referrals Name Type Priority Associated Diagnoses [facility] Outpatient Referral Routine Expec anayeli: visit (clinic) 01/09/2022, Surveillance; Expires: Brain 04/11/2023 documented as of this encounter Visit Diagnoses Not on filedocumented in this encounter
--- OUTSIDE RECORDS SUMMARY | 2022-03-12 14:35 | XMS_ITS | Encounter Summary ---
:1970 Author Organization [facility] Address [address] [place] [address] Care Team Providers Name Role Phone Unavailable Primary Care Provider Unavailable Reason for Visit Reason Comments Phone call Encounter Details Date Type Department Care Team Description 01/09/2022 Clinical Communication Department of Oncology Olivia Sanchez Phone call in [facility], HenryPSanjuanita, M.A.[facility] [address] [facility] [address] [place] [phone] Social History Tobacco Use Types Packs/Day Years [...] many times do you More than three nihsa es a week 01/07/2022 talk on the phone with family, friends, or neighbors? How often do you get together with friends More than three t imes a week 01/07/2022 or relatives? How often do you attend sikhism or More than 4 times per year 01/07/2022 episcopalian services? Do you belong to any clubs or No 01/07/2022 organizations such as sikhism groups, unions, fraternal or athletic groups, or [...] have completed or the highest Maulik, MEd, QA CONSULTANT, 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 Sex Assigned at Date Recorded Female 01/07/2022 11:11 AM CDT documented as of this encounter Miscellaneous Notes Telephone Encounter - Olivia Koenig D.N.P., M.A., R.N., HNB-BC - 01/09/2022 11:36 AM CDT SUBJECTIVE Astrocytoma CHIEF COMPLAINT / REASON FOR CALL Phone call ASSESSMENT Received a call from MRI department, patient???s mother, Libby, is here with the patient and expressed concerns regarding new symptoms. Libby stated that Ms Cedillo had been experiencing blurry vision inboth eyes, pounding headaches with dark spots during movement/standing, has become much more lethargic and having issues with increased memory loss and word salad. Ms Cedillo was seen on 01/03/[address] Cedeno, to discuss treatment plan, and per Libby, these symptoms have gotten worse since then. Libby also mentioned that they had run out of the prescribed Dexamethasone and Ms Cedillo had not received her dose this morning. [facility]. Conferred with Rebeca Valle PA-C and we were able to schedule an [facility] with Rebeca. Ms Cedillo also has an appointment scheduled with Dr Salinas on January 15, and an email was sent to him to see if he would be able to see her today as well if necessary. PLAN Patient will see Rebeca Valle PA-C today Disposition/Recommendation: notified provider and awaiting recommendations. Information/Education: patient/caller able to teach back. Caller agreeable to plan of care: yes. The following references were used: nursing clinical judgement and provider Rebeca Valle PA-C. documented in this encounter Plan of Treatment Upcoming Encounters Date Type Specialty Care Team Description 03/12/2022 Appointment Radiation Oncology Stephanie Gleason M.D. [address] [place] [phone] 03/12/2022 Appointment Radiation Oncology Stephanie Gleason M.D. [address] [place] [phone] 03/13/2022 Appointment Radiation Oncology Stephanie Gleason M.D. [address] [place] [phone] 03/14/2022 Appointment Radiation Oncology Stephanie Gleason M.D. [address] [place] [phone] 03/25/2022 Ancillary Procedure Ophthalmology Chas Shin M.D. [address] [place] [phone] 03/25/2022 Ancillary Procedure Ophthalmology 03/25/2022 Ancillary Procedure Ophthalmology Chas Shin M.D. [address] [place] [phone] 03/26/2022 Ancillary Procedure Ophthalmology Rebeca Valle P.A.-C., M.S. [address] [place] [phone] 03/26/2022 Comprehensive Visit Ophthalmology Chas Shin M.D. [address] [place] [phone] 03/29/2022 Comprehensive Visit Endocrinology Farzana Allen M.D. [address] [place] [phone] 04/04/2022 Appointment Radiology Christina Tai P.A.-C., M.S. [address] [place] [phone] 04/04/2022 Office Visit Oncology Vini Maki M.D., Ph.D. [address] [place] [phone] 04/04/2022 Office Visit Neurological Surgery Charles Ivey M.D., Ph.D. [address] [place] [phone] 05/03/2022 Comprehensive Visit Clinical Genomics Sanya Mehta M.D. [address] [place] [phone] 05/06/2022 Clinical Communication Admitting/Central Scheduling 05/09/2022 Office Visit Oncology Farzana Allen M.D. [address] [place] [phone] documented as of this encounter Visit Diagnoses Not on filedocumented in this encounter
--- OUTSIDE RECORDS SUMMARY | 2022-03-12 14:35 | XMS_ITS | Encounter Summary ---
:1970 Author Organization [facility] Address [address] [place] [address] Care Team Providers Name Role Phone Unavailable Primary Care Provider Unavailable Reason for Referral MRI/CAT/PET Scan (Routine) - Closed Specialty Diagnoses / Procedures Referred By Contact Refer red To Contact Radiology Diagnoses Malignant Neoplasm Of Brain (HCC) Charles Ivey M.D., [facility] Procedures MR Stereotactic Frameless Ph.D. [address] [place] [phone] Referral ID Status Reason Start Date Expiration Date Visits Requ ested Visits Authorized [id number] Closed 01/09/2022 01/09/2023 1 1 Reason for Visit Auth/Cert Specialty Diagnoses / Procedures Referred By Contact Refer red To Contact Diagnoses Malignant Neoplasm Of Brain (HCC) Procedures NE CRANIOT SUBDURAL IMPL ELECTRODE NE MAPPING CORTICAL INITIAL HR Awake left temporoparietal stereotactic craniotomy tumor resection, speech mapping, intraop MRI, supine position. Referral ID Status Reason Start Date Expiration Date Visits Requ ested Visits Authorized [id number] 1 1 Encounter Details Date Type Department Care Team Description 01/10/2022 Hospital Encounter Department of Charles Ivey Malign ant Neoplasm Radiology lucien Ojeda M.D., Ph.D. Of Brain ([facility]) [place] [address] [place], [place] [address] [place] [phone] [place], [place] [phone] (Work) [phone] Social History Tobacco Use Types Packs/Day Years [...] More than 4 times per year 01/07/2022 tenriism services? Do you belong to any clubs [...] have completed or the highest Maulik, MEd, PROJECT DEVELOPMENT LEADER, 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 Sex [...] Appointment Radiation Oncology Stephanie Gleason M.D. [address] [place] [phone] 03/12/2022 Appointment Radiation Oncology Stephanie Gleason M.D. [address] [place] [phone] 03/13/2022 Appointment Radiation Oncology Stephanie Gleason M.D. [address] [place] [phone] 03/14/2022 Appointment Radiation Oncology Stephanie Gleason M.D. [address] [place] [phone] 03/25/2022 Ancillary Procedure Ophthalmology Chas Shin M.D. [address] [place] [phone] 03/25/2022 Ancillary Procedure Ophthalmology 03/25/2022 Ancillary Procedure Ophthalmology Chas Shin M.D. [address] [place] [phone] 03/26/2022 Ancillary Procedure Ophthalmology Rebeca Valle P.A.-C., M.S. [address] [place] [phone] 03/26/2022 Comprehensive Visit Ophthalmology Chas Shin M.D. [address] [place] [phone] 03/29/2022 Comprehensive Visit Endocrinology Farzana Allen M.D. [address] [place] [phone] 04/04/2022 Appointment Radiology Christina Tai P.A.-C., M.S. [address] [place] [phone] 04/04/2022 Office Visit Oncology Vini Maki M.D., Ph.D. [address] [place] [phone] 04/04/2022 Office Visit Neurological Surgery Charles Ivey M.D., Ph.D. [address] [place] [phone] 05/03/2022 Comprehensive Visit Clinical Genomics Sanya Mehta M.D. [address] [place] [phone] 05/06/2022 Clinical Communication Admitting/Central Scheduling 05/09/2022 Office Visit Oncology Farzana Allen M.D. [address] [place] [phone] documented as of this encounter Procedures Procedure Name Priority Date/Time Associated Comments Diagnosis MR STEREOTACTIC RAD - Routine 01/10/2022 1:37 Malignant Results for this FRAMELESS (most inpatients PM CDT Neoplasm Of Brain proced ure are in and all (HCC) the results outpatients) section. documented in this encounter Results MR Stereotactic Frameless (01/10/2022 1:37 PM CDT) Anatomical Region Laterality Modality Head, Brain, Neuroradiology RST LOS, Neuroradiology VIN N/A Magnetic Resonance LOS, Neuroradiology FLA [facility] Specimen (Source) Anatomical Collection Method Collection Time [...] centrally necrotic intra-axial mass from the left wwcqoic-khmvazm-alemokfzl region. There is some fluid and gas [...] of the left lateral ventricle. 1 cm gspv-lk-ujqzj mi dline shift at the level of [...] centrally necrotic intra-axial mass from the left cownrpn-hnohjuf-byqgfgwky region. There is some fluid and gas [...] of the left lateral ventricle. 1 cm duza-cz-ymqya mi dline shift at the level of [...] Site gadobutrol injection 0.01-30 mL Given 01/10/2022 1:38 PM CDT 8 mL (GADAVIST) 0.01-30 mL, intravenous, Once in imaging, contrast, Starting on Bee 01/10/22 at 1338, For 1 dose, Imaging Protocol Orders, Dose per Radiant Medication Guidelines Intrathecal doses greater than 0.25 mL not recommended. documented in this encounter
--- OUTSIDE RECORDS SUMMARY | 2022-03-12 14:36 | XMS_ITS | Encounter Summary ---
:1970 Author Organization [facility] Address [address] [place] [address] Care Team Providers Name Role Phone Unavailable Primary Care Provider Unavailable Reason for Visit Reason Comments Pre-scheduling Questionnaire [facility] Encounter Details Date Type Department Care Team Description 12/26/2021 Clinical Department of Prescheduling, Pre-scheduli ng Communication Oncology in Provider Questionnaire ([facility]) [address] [phone] Social History Tobacco Use Types Packs/Day Years Used Date Smoking Tobacco: Never Assessed Alcohol Habits Answer Date Recorded How often do you have a drink containing alcohol? Never 01/07/2022 How many drinks containing alcohol do you have on a typical Not asked day when you are drinking? How often do you have six or more drinks on one occasion? No t asked Comment: Not asked Social Isolation Answer Date Recorded In a typical week, how many times do you More than three nisha es a week 01/07/2022 talk on the phone with family, friends, or neighbors? How often do you get together with friends More than three t imes a week 01/07/2022 or relatives? How often do you attend yazidi or More than 4 times per year 01/07/2022 oriental orthodox services? Do you belong to any clubs or No 01/07/2022 organizations such as yazidi groups, unions, fraternal or athletic groups, or [...] [place] [facility] (including now)? Sex Assigned at Date Recorded Female 01/07/2022 11:11 AM CDT documented as of this encounter Miscellaneous Notes Telephone Encounter - Van Herrera - 12/26/2021 2:42 PM CDT Port: no Contrast allergy: no Diabetic: no Implanted devices: no Implanted hardware: no Visit preference: No pref Text preference: call documented in this encounter Plan of Treatment Upcoming Encounters Date Type Specialty Care Team Description 03/12/2022 Appointment Radiation Oncology Stephanie Gleason M.D. [address] [place] [phone] 03/12/2022 Appointment Radiation Oncology Stephanie Gleason M.D. [address] [place] [address] [phone] 03/13/2022 Appointment Radiation Oncology Stephanie Gleason M.D. [address] [place] [phone] 03/14/2022 Appointment Radiation Oncology Stephanie Gleason M.D. [address] [place] [phone] 03/25/2022 Ancillary Procedure Ophthalmology Chas Shin M.D. [address] [place] [address] [phone] 03/25/2022 Ancillary Procedure Ophthalmology 03/25/2022 Ancillary Procedure Ophthalmology Chas Shin M.D. [address] [place] [phone] 03/26/2022 Ancillary Procedure Ophthalmology Rebeca Valle P.A.-C., M.S. [address] [place] [phone] 03/26/2022 Comprehensive Visit Ophthalmology Chas Shin M.D. [address] [place] [phone] 03/29/2022 Comprehensive Visit Endocrinology Farzana Allen M.D. [address] [place] [phone] 04/04/2022 Appointment Radiology Christina Tai P.A.-C., M.S. [address] [place] [phone] 04/04/2022 Office Visit Oncology Vini Maki M.D., Ph.D. [address] [place] [phone] 04/04/2022 Office Visit Neurological Surgery Charles Ivey M.D., Ph.D. [address] [place] [phone] 05/03/2022 Comprehensive Visit Clinical Genomics Sanya Mehta M.D. [address] [place] [phone] 05/06/2022 Clinical Communication Admitting/Central Scheduling 05/09/2022 Office Visit Oncology Farzana Allen M.D. [address] [place] [phone] documented as of this encounter Visit Diagnoses Not on filedocumented in this encounter
--- OUTSIDE RECORDS SUMMARY | 2022-03-12 14:36 | XMS_ITS | Encounter Summary ---
:1970 Author Organization [facility] Address [address] [place] [address] Care Team Providers Name Role Phone Unavailable Primary Care Provider Unavailable Encounter Details Date Type Department Care Team Description 01/01/2022 Lab RST RO LMP OtriRebeca J, Astrocytoma (HCC) [address] [place] [address] P.A.-C., [place] [address] [place] [phone] (Wo rk) Social History Tobacco Use Types [...] slept in a long term (including now)? Sex Assigned at Date Recorded Female 01/07/2022 11:11 AM CDT documented as of this encounter Plan of Treatment Upcoming Encounters Date Type Specialty Care Team Description 03/12/2022 Appointment Radiation Oncology Stephanie Gleason M.D. [address] [place] [phone] 03/12/2022 Appointment Radiation Oncology Stephanie Gleason M.D. [address] [place] [phone] 03/13/2022 Appointment Radiation Oncology Stephanie Gleason M.D. [address] [place] [phone] 03/14/2022 Appointment Radiation Oncology Stephanie Gleason M.D. [address] [place] [phone] 03/25/2022 Ancillary Procedure Ophthalmology Chas Shin M.D. [address] [place] [phone] 03/25/2022 Ancillary Procedure Ophthalmology 03/25/2022 Ancillary Procedure Ophthalmology Chas Shin M.D. [address] [place] [phone] 03/26/2022 Ancillary Procedure Ophthalmology Rebeca Valle P.A.-C., M.S. [address] [place] [phone] 03/26/2022 Comprehensive Visit Ophthalmology Chas Shin M.D. [address] [place] [phone] 03/29/2022 Comprehensive Visit Endocrinology Farzana Allen M.D. [address] [place] [phone] 04/04/2022 Appointment Radiology Christina Tai P.A.-C., M.S. [address] [place] [phone] 04/04/2022 Office Visit Oncology Vini Maki M.D., Ph.D. [address] [place] [phone] 04/04/2022 Office Visit Neurological Surgery Charles Ivey M.D., Ph.D. [address] [place] [phone] 05/03/2022 Comprehensive Visit Clinical Genomics Sanya Mehta M.D. [address] [place] [phone] 05/06/2022 Clinical Communication Admitting/Central Scheduling 05/09/2022 Office Visit Oncology Farzana Allen M.D. [address] [place] [phone] documented as of this encounter Procedures Procedure Name Priority Date/Time Associated Diagnosis Comme nts PATHOLOGY REVIEW OF Routine 12/05/2021 3:19 PM Astrocytoma (H CC) Results for this OUTSIDE MATERIAL CDT procedure a re in the results section. documented in this encounter Results Pathology Review of Outside Material (12/05/2021 3:19 PM CDT) Component Value Ref Test Analysis Performed Pathologis t Range Method Time At Signature 01/03/2022 DTL 10:27 AM CDT Participated in Heath Rodarte 01/03/2022 DTL the [facility] -Pathology 10:27 AM Interpretation Fellow CDT Report Eduard Pastrana M.D. 01/03/2022 DT L electronically 10:27 AM signed by CDT I verify that I have examined all relevant slides/materials for the specimen(s) and rendered or confirmed the diagnosis. A comprehensive consult with review of records that included clinical notes and imaging reports was performed to assist in the diagnostic assessment of the case. Material Received A. [id number]: Brain, left mass 01/03/2022 DTL ? 3 stained slides 10:27 AM CDT Interpretation PRELIMINARY DIAGNOSIS 01/03/2022 DT L 10:27 AM Brain, left temporal-parietal, biopsy and excision CDT ([id number]; 12/05/2021): Mitotically-active infiltrating glioma. See comment. COMMENT A Final Integrated Diagnosis corresponding to the 2020 WHO Classification of HOUSEKEEPING SUPERVISOR Tumors will be reported subsequently, following receipt of results of next generation sequencing studies being performed by the referring institution. This mitotically-active glioma exhibits appreciable nuclear atypia, favoring astrocytic morphology, and demonstrable mitotic activity in this biopsy sampling (reaching 3 mitoses in 10 high powered garcia) in the absence of microvascular proliferation or necrosis, histologically suggestive of a higher-grade (at least HOUSEKEEPING SUPERVISOR WHO grade 3) designation on a preliminary basis. Per report (immunostudies not received for review), the tumor resulted negative for IDH1 R132H mutation by surrogate immunohistochemistry, with preserved nuclear expression of ATRX. ??Given the patient's young age, less common mutations [...] report. Per report, outside MGMT promoter studies ([facility]) resulted NEGATIVE for MGMT promoter methylation. Specimen Anatomical Collection Method Collection Time Receive d Time (Source) Location / / Volume Laterality Varies 12/05/2021 3:19 01/02/2022 PM CDT 12:17 PM CDT Narrative This result has an attachment that is no t available. Rebeca Valle P.A.-C., M.S. LAB SURG PATH ORDERABLE S Performing Organization Address City/State/[facility] Code Phon e Number [facility] - [address] [place], [place] [address] [facility] [place] [address] [facility] [address] documented in this encounter Visit Diagnoses Diagnosis Astrocytoma (HCC) documented in this encounter
--- OUTSIDE RECORDS SUMMARY | 2022-03-12 14:36 | XMS_ITS | Encounter Summary ---
:1970 Author Organization [facility] Address [address] [place] [address] Care Team Providers Name Role Phone Unavailable Primary Care Provider Unavailable Reason for Referral Outpatient (Routine) - Closed Specialty Diagnoses / Procedures Referred By Contact Gina red To Contact Oncology Karthikeyan Cedeno M.D. [facility] [address] [place] [phone] Referral ID Status Reason Start Date Expiration Date Visits Requ ested Visits Authorized [id number] Closed 01/03/2022 01/03/2023 1 1 utpatient (Routine) - Closed Specialty Diagnoses / Procedures Referred By Contact Gina red To Contact Medical Oncology / Diagnoses Astrocytoma (HCC) Karthikeyan Cedeno M.D. [facility] Oncology [address] [place] [phone] Referral ID Status Reason Start Date Expiration Date Visits Requ ested Visits Authorized [id number] Closed 01/03/2022 01/03/2023 1 1 Reason for Visit Appointment Request (Routine) - Closed Specialty Diagnoses / Procedures Referred By Contact Gina red To Contact Oncology Diagnoses Astrocytoma Anaplastic (HCC) Referral ID Status Reason Start Date Expiration Date Visits Requ ested Visits Authorized [id number] Closed 12/26/2021 12/26/2022 1 1 Encounter Details Date Type Department Care Team Description 01/03/2022 Telemedicine Department of Oncology Karthikeyan Cedeno Ast rocytoma (HCC) in [place] (Primary Dx) [place] 200 [facility] [address] [place] [phone] Social History Tobacco Use Types Packs/Day Years [...] or relatives? How often do you attend episcopal or More than 4 times per year 01/07/2022 confucianist services? Do you belong to any clubs or No 01/07/2022 organizations such as episcopal groups, unions, fraternal or athletic groups, or [...] slept in a group home (including now)? Sex Assigned at Date Recorded Female 01/07/2022 11:11 AM CDT documented as of this encounter Consult Notes Karthikeyan Cedeno M.D. - 01/03/2022 8:20 AM CDT SUBJECTIVE PRIMARY CARE PHYSICIAN: No primary care provider on file. REASON FOR CONSULT Mia Richardson is a 51 y.o. 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 HISTORY OF PRESENT ILLNESS - PMH is largely unremarkable except for brief course of treatment with HCTZ for HTN in the past. - 11/29/[address] [facility] with intermittent word-finding difficulty. She was counseling [...] by Dr. Dunlap. Pathology was consistent with COUPON MANIFEST CLERK WHO grade 3 astrocytoma, IDH wildtype, MGMT [...] week. She could state she was in [place], in her home. She could name ring [...] y.o. female who presents for evaluation of COUPON MANIFEST CLERK WHO grade 3 astrocytoma, IDH wildtype by [...] classify this as a glioblastoma rather than COUPON MANIFEST CLERK WHO grade 3 astrocytoma. We will need [...] be implemented if thisis pursued. 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 documented in this encounter Miscellaneous Notes Addendum Note - Karthikeyan Cedeno M.D. - 01/03/2022 8:20 AM CDT Addended by: KARTHIKEYAN CEDENO on: 01/03/2022 10:47 AM Modules accepted: Orders documented in this encounter Plan of Treatment Upcoming Encounters Date Type Specialty Care Team Description 03/12/2022 Appointment Radiation Oncology Stephanie Gleason M.D. [address] [place] [phone] 03/12/2022 Appointment Radiation Oncology Stephanie Gleason M.D. [address] [place] [phone] 03/13/2022 Appointment Radiation Oncology Stephanie Gleason M.D. [address] [place] [phone] 03/14/2022 Appointment Radiation Oncology Stephanie Gleason M.D. [address] [place] [phone] 03/25/2022 Ancillary Procedure Ophthalmology Chas Shin M.D. [address] [place] [phone] 03/25/2022 Ancillary Procedure Ophthalmology 03/25/2022 Ancillary Procedure Ophthalmology Chas Shin M.D. [address] [place] [phone] 03/26/2022 Ancillary Procedure Ophthalmology Rebeca Valle P.A.-C., M.S. [address] [place] [phone] 03/26/2022 Comprehensive Visit Ophthalmology Chas Shin M.D. [address] [place] [phone] 03/29/2022 Comprehensive Visit Endocrinology Farzana Allen M.D. [address] [place] [phone] 04/04/2022 Appointment Radiology Christina Tai P.A.-C., M.S. [address] [place] [phone] 04/04/2022 Office Visit Oncology Vini Maki M.D., Ph.D. [address] [place] [phone] 04/04/2022 Office Visit Neurological Surgery Charles Ivey M.D., Ph.D. [address] [place] [phone] 05/03/2022 Comprehensive Visit Clinical Genomics Sanya Mehta M.D. [address] [place] [phone] 05/06/2022 Clinical Communication Admitting/Central Scheduling 05/09/2022 Office Visit Oncology Farzana Allen M.D. [address] [place] [phone] Scheduled Referrals Name Type Priority Associated Diagnoses Order S chedule Oncology - Outpatient Referral Routine Astrocytoma (HCC) Exp ected: Integrative Medicine 022 consult (clinic) (Approximat e), Expires: 04/05/2023 Oncology office Outpatient Referral Routine Expec anayeli: visit (clinic) 01/23/2022, Re-staging; Brain Expires: 04/05/2023 documented as of this encounter Visit Diagnoses Diagnosis Astrocytoma (HCC) - Primary documented in this encounter
--- OUTSIDE RECORDS SUMMARY | 2022-03-12 14:36 | XMS_ITS | Encounter Summary ---
:1970 Author Organization [facility] Address [address] [place] [address] Care Team Providers Name Role Phone Unavailable Primary Care Provider Unavailable Reason for Referral Radiation Therapy (Routine) - Authorized Specialty Diagnoses / Procedures Referred By Contact Refer red To Contact Diagnoses Malignant Neoplasm Of Brain (HCC) Stephanie Gleason M.D. [facility] Radiation Oncology Procedures Management Visit [address] [facility] [place], [place] [phone] [place] [address] Referral ID Status Reason Start Date Expiration Date Visits V isits Requested Authorized [id number] Authorized 12/31/2021 12/31/2022 10 10 Radiation Therapy (Routine) - Authorized Specialty Diagnoses / Procedures Referred By Contact Refer red To Contact Diagnoses Malignant Neoplasm Of Brain (HCC) Stephanie Gleason M.D. [facility] Radiation Oncology Procedures Prior Auth Rad Tx IN [facility] [address] [place], [place] [phone] [place] [address] Referral ID Status Reason Start Date Expiration Date Visits V isits Requested Authorized [id number] Authorized 01/31/2022 12/31/2022 30 30 Radiation Therapy (Routine) - Closed Specialty Diagnoses / Procedures Referred By Contact Refer red To Contact Diagnoses Malignant Neoplasm Of Brain (HCC) Stephanie Gleason M.D. [place] Procedures Initial Rad Onc Treatment Planning CT Simulation [address] [place] [phone] Referral ID Status Reason Start Date Expiration Date Visits Requ ested Visits Authorized [id number] Closed 12/31/2021 12/31/2022 1 1 Encounter Details Date Type Department Care Team Description 12/31/2021 Orders Only Department of Burak, Cliff C, Malignant N eoplasm Of Radiation Oncology in [place], M.S. Brain (HCC) (Primary [place] [address] [facility] Dx) [address] [place] [phone] Social History Tobacco Use Types Packs/Day Years [...] or slept in a retirement (including now)? Sex Assigned at Date Recorded Female 01/07/2022 11:11 AM CDT documented as of this encounter Plan of Treatment Upcoming Encounters Date Type Specialty Care Team Description 03/12/2022 Appointment Radiation Oncology Stephanie Gleason M.D. [address] [place] [phone] 03/12/2022 Appointment Radiation Oncology Stephanie Gleason M.D. [address] [place] [phone] 03/13/2022 Appointment Radiation Oncology Stephanie Gleason M.D. [address] [place] [phone] 03/14/2022 Appointment Radiation Oncology Stephanie Gleason M.D. [address] [place] [phone] 03/25/2022 Ancillary Procedure Ophthalmology Chas Shin M.D. [address] [place] [phone] 03/25/2022 Ancillary Procedure Ophthalmology 03/25/2022 Ancillary Procedure Ophthalmology Chas Shin M.D. [address] [place] [phone] 03/26/2022 Ancillary Procedure Ophthalmology Rebeca Valle P.A.-C., M.S. [address] [place] [phone] 03/26/2022 Comprehensive Visit Ophthalmology Chas Shin M.D. [address] [place] [phone] 03/29/2022 Comprehensive Visit Endocrinology Farzana Allen M.D. [address] [place] [phone] 04/04/2022 Appointment Radiology Christina Tai P.A.-C., M.S. [address] [place] [phone] 04/04/2022 Office Visit Oncology Vini Maki M.D., Ph.D. [address] [place] [phone] 04/04/2022 Office Visit Neurological Surgery Charles Ivey M.D., Ph.D. [address] [place] [address] [phone] 05/03/2022 Comprehensive Visit Clinical Genomics Sanya Mehta M.D. [address] [place] [phone] 05/06/2022 Clinical Communication Admitting/Central Scheduling 05/09/2022 Office Visit Oncology Farzana Allen M.D. [address] [place] [phone] Scheduled Orders Name Type Priority Associated Order Schedule Diagnoses Prior Auth Rad Tx Radiation Oncology Routine Malignant Neoplas m Ordered: 12/31/2021 Of Brain (HCC) Management Visit Radiation Oncology Routine Malignant Neoplasm 6 Occurrences Of Brain (HCC) starting 04/2022 until 3 documented as of this encounter Results Initial Rad Onc Treatment [...] Organization Address City/State/ZIP Code Phon e Number URENA [place]WK [place] na documented in this encounter Visit Diagnoses Diagnosis Malignant Neoplasm Of Brain (HCC) - Prim uyen Malignant Neoplasm Of Brain (HCC) documented in this encounter Additional Health Concerns Infection Onset Date Last Indicated Resolved Time COVID19 Pending 01/09/2022 01/09/2022 01/09/2022 7:47 PM CDT documented as of this encounter
--- OUTSIDE RECORDS SUMMARY | 2022-03-12 14:36 | XMS_ITS | Encounter Summary ---
:1970 Author Organization [facility] Address [address] [place] [address] Care Team Providers Name Role Phone Unavailable Primary Care Provider Unavailable Reason for Referral Outpatient (Routine) - Closed Specialty Diagnoses / Procedures Referred By Contact Refer red To Contact Clinical Genomics Diagnoses Malignant Neoplasm Of Brain (HCC) Cliff Sumner M.D., [facility] [address] [place] [address] Referral ID Status Reason Start Date Expiration Date Visits Requ ested Visits Authorized [id number] Closed 01/01/2022 01/01/2023 1 1 Outpatient (Routine) - Closed Specialty Diagnoses / Procedures Referred By Contact Refer red To Contact Social Work Diagnoses Malignant Neoplasm Of Brain (HCC) Cliff Sumner M.D., [facility] [address] [place] [address] Referral ID Status Reason Start Date Expiration Date Visits Requ ested Visits Authorized [id number] Closed 01/01/2022 01/01/2023 1 1 Scheduling Instructions Phone is okay. Please contact patient fo r preference. Reason for Visit Appointment Request (Routine) - Closed Specialty Diagnoses / Procedures Referred By Contact Refer red To Contact Radiation Oncology Diagnoses Astrocytoma (HCC) Shelbie Ackerman M.D. [address] [facility] [place] , [facility] [address] [place] [address] Referral ID Status Reason Start Date Expiration Date Visits Requ ested Visits Authorized [id number] Closed 12/28/2021 12/28/2022 1 1 Encounter Details Date Type Department Care Team Description 01/01/2022 Hospital Encounter Department of Stephanie Gleason Neoplasm Radiation Oncology Sebastian Marcelino Of Brain (HCC) in [address] (Primary Dx) [place], [place] [address] [facility] [address] [place], [place] [phone] (Work) [phone] Social History Tobacco Use Types Packs/Day Years [...] or relatives? How often do you attend yarsanism or More than 4 times per year 01/07/2022 religion services? Do you belong to any clubs or No 01/07/2022 organizations such as yarsanism groups, unions, fraternal or athletic groups, or [...] or slept in a jail (including now)? Sex Assigned at Date Recorded Female 01/07/2022 11:11 AM CDT documented as of this encounter Last Filed Vital Signs Vital Sign Reading Time Taken Comments Blood Pressure 136/87 01/01/2022 9:52 AM CDT Pulse 68 01/01/2022 9:52 AM CDT Temperature 36.2 ??C (97.1 ??F) 01/01/2022 9:52 AM CDT Respiratory Rate - - Oxygen Saturation - - Inhaled Oxygen Concentration - - Weight 97.7 kg (215 lb 6.2 oz) 01/01/2022 9:52 AM CDT Height - - Body Mass Index - - documented in this encounter Medications at Time of Discharge Medication Sig Dispensed Refills Start Date End Date cyanocobalamin (VITAMIN daily. 0 06/17/2019 0 01/09/2022 B12) 1,000 mcg tablet levETIRAcetam (KEPPRA) Take 1,000 mg by 0 022 01/24/2022 1,000 mg tablet mouth 2 (two) times a day. acetaminophen (Tylenol Take 1,000 mg by 0 022 01/24/2022 Extra Strength) 500 mg mouth 3 (three) tablet times a day as needed for pain. dexAMETHasone (DECADRON) 4 Take 1 tablet (4 14 tablet 0 05/202201/03/2022 mg tablet mg total) by mouth daily. temozolomide (TEMODAR) 140 Take 140 mg by 0 12/3101/24/2022 mg capsule mouth daily. temozolomide (TEMODAR) 20 Take 20 mg by 0 022 01/24/2022 mg capsule mouth daily. documented as of this encounter Consult Notes Cliff Sumner M.D., M.S. - 01/01/2022 10:00 AM CDT RADIATION ONCOLOGY CONSULTATION Supervising Salad Maker: Dr. Stephanie Gleason Referring Provider: Shelbie Ackerman M.D. Primary Care Provider: Dr. Marie Yoon Home address: [address] [facility] [phone] SUBJECTIVE History of present illness Mia Cedillo is a 51 y.o. 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 The patient's oncologic history is as follows: Oncology History Malignant Neoplasm Of Brain (HCC) 11/29/2021 Other The patient presented to [facility] with intermittent word-finding difficulties and partial seizures with a loss of consciousness. The patient was transferred to [facility]. She was started on steroids and Keppra with some improvement in overall symptoms (headaches, word-finding), and no further seizures occurred. 11/30/2021 Imaging MRI of the brain demonstrated [...] malignancy in the chest, abdomen, or pelvis. 12/03/2021 Surgery and Procedures Lumbar puncture was performed. DIAGNOSIS: Cerebrospinal fluid , flow cytometry: - No aberrant immunophenotype on the T-cells - B-cells rare to absent Final Diagnosis: Negative for malignant cells. 12/05/2021 Surgery and Procedures Left-sided craniotomy for open biopsy/resection was performed by Dr. Darinel Dunlap. A. Brain, left mass, biopsy - Astrocytoma, at least DIET CONSULTANT WHO grade 3. See comment. B. Brain, left mass, excision - Astrocytoma, at least DIET CONSULTANT WHO grade 3. See comment. Final Diagnosis: [...] Referral to Dr. Shelbie Ackerman at the [facility]. Discussed that it was okay forthe patient to proceed with chemotherapy and radiation 1 month from biopsy date. Also discussed that it was okay for the patient to travel on a commercial air flight approximately 1 month from biopsy as she was planning for a trip to [place] with her significant other in December. 12/24/[address] Shelbie Ackerman who reviewed the patient's case with Dr. Dunlap and he recommended against additional surgery. Dr. Macias recommended proceeding with a combination of radiation therapy plus temozolomide. Referral to Radiation Oncology at [facility] in [place]. 01/14/2022 - Radiation Therapy Radiation Therapy Treatment Details (Noted on 12/31/2021) Site: Brain Technique: No technique specified Goal: Curative Planned Treatment Start Date: 01/14/2022 In the clinic today, Mia Cedillo reports that she had significant improvement in her word finding difficulties while on dexamethasone, although in the last two weeks since tapering off steroids, her difficulties with speech have increased progressively. She describe having difficulty choosing the right word to speak, although she is able to identify objects. She occasionally uses the wrong word but has no problems with producing the correct sound. Additionally, she endorses increasing headaches over the last week, primarily left lateral and posterior. She has some relief with acetaminophen. She endorses some double vision that is new this morning as well as some associated unsteadiness on her feet. She has not had any seizures or loss of consciousness since starting levetiracetam and continues without apparent side effects. She has some fatigue and endorses lower energy, particularly in the mornings. Her surgical incision is healing well without new erythema, redness, or warmth. Patient reported symptom screen Fatigue (scale: 0 = no fatigue; 10 = worst fatigue you can imagine): 5 Pain (scale: 0 = no pain; 10 = worst pain you can imagine): 4 Overall quality of life (scale: 0 = as bad as can be; 10 = as good as can be): 5 Past medical history Pertinent past medical history, past surgical history, medications, allergies, social history, and family history were reviewed. Pertinent past medical history includes HTN. The patient does not have ahistory of lupus or scleroderma. The patient has no implanted medical devices. Social history is significant for former smoker. 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 She is actively menstruating, and her last period was approximately one week ago. She has three children ages 29, 23, and 21. Her mother is a carrier of CHK2 mutation. Prior history of radiation None. Review of systems Review of systems as noted in HPI. OBJECTIVE Vitals Weight: 97.7 kg, Temperature: 97.1 degrees Farenheit, Pulse: 68 beats per minute and Blood pressure:136/87 mmHg Physical exam ECO Constitutional: Pleasant, in no acute distress, overweight, ambulates without an assistive device. Neurologic: Expressive dysphasia with word-finding difficulties, struggling to identify and occasionally misplacing words, AAO, CN II-XII intact, strength and sensation full and symmetric in b/l UE andLE, loolri-vhwe-eiiaog testing intact, normal gait. Imaging Outside MR brain without contrast on 11/30/2021: FLAIR hyperintense lesion in the left temporal lobe with extension into the inferior parietal lobe, thalamus, and internal capsule. Pathology Brain mass biopsy on 12/05/2021: WHO grade III astrocytoma, IDH1 R132H mutation by IHC negative; molecular analysis pending. MGMT promoter methylation negative. 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 I have reviewed the pertinent history, laboratory, and imaging studies. Imaging demonstrates an infiltrative high grade glioma. Initial WHO grade is III and IDH-type by IHC, although molecular analysisis pending for possible upgrade to a molecular glioblastoma and to investigate less common IDH mutations. We reviewed that our final recommendations for radiation dose and volumes are pending these results. The tumor has multiple unfavorable characteristics, which include aggressive radiographic features, IDH-wildtype status, and MGMT promoter methylation negative. We further mentioned that a post-operative MRI with contrast has not been performed, which also would guide our treatment recommendations. Although the disease in the thalamus and internal capsule is likely unresectable, we discussed that we would recommend an MRI with contrast in [place] and a neurosurgery consultation to follow. Thepatient potentially could benefit from debulking at the discretion of neurosurgery. Dr. Evangelist Salinas was contacted and recommended a functional MRI to analyze resectability optimally. The patient has progressive symptoms since discontinuing steroids, and we reviewed that this could represent edema versus tumor progression. I will contact her medical oncologist regarding restarting low dose dexamethasone. Additionally, given the patient's mother's CHK2 mutation status, I will place a genetics consultation. I also will order a social work administrator consultation to facilitate the patient's complex workup and treatment course. We reviewed our recommendations for definitive or adjuvant radiation treatment. We would recommend treatment over approximately 6 weeks, treating to 6294-0609 cGy in 30 fractions using IMRT. Medical oncology from [facility] has recommended concurrent temozolomide. We will reach out to Dr. Doherty from [facility] about possibly moving that consultation sooner. We discussed the logistics of radiation simulation, planning, and daily treatment. We also reviewed the acute and late toxicities associated with treatment including fatigue, nausea/vomiting, headaches, dermatitis, alopecia, seizures, weakness, mental status change, changes in cognition, brain radionec rosis. The patient displayed understanding of the risks and benefits. We discussed that the timing and sequencing of treatment is pending MRI, molecular analysis, and neurosurgery and medical oncology evaluation. We will plan to follow with the patient and arrange her next appointment accordingly, which may include a return visit and CT simulation after a test. All questions were answered to the patient's satisfaction. Our departmental contact information was provided to the patient who was encouraged to contact the Department of Radiation Oncology with further questions or concerns. Dr. Stephanie Gleason is the business risk consultant; please see attestation for further details. Cliff Sumner M.D., M.S. Associated attestation - Stephanie Gleason M.D. - 01/01/2022 5:35 PM CDT RADIATION ONCOLOGY CONSULT I saw and evaluated the patient and participated in the hill portions of the service. I reviewed thedocumentation of Dr. Cliff Sumner and agree with the findings and plan. Please see Dr. Sumner' detailed note for the patient's initial presentation and work-up. Briefly, Ms Cedillo is a very pleasant 51 year old female with a newly diagnosed WHO grade III anaplastic astrocytoma, IDH wildtype and MGMT promoter methylation negative with molecular analysis pending who presents now to discuss radiation options. She is seen with her mother. I have reviewed her imaging, operative and pathology reports as described below. Since tapering the steroids she is having worsening word finding difficulties and headaches. She is anxious to get her treatments started. She is going to skip a planned two week vacation to [place] with her boyfriend, Erich. Her mother who is a CHK2 carrier is from [place] and is currently living with her daughter who lives alone (patient's youngest son is sometimes there). On exam, she appears well but has difficulty finding words and appears appropriately frustrated. Detailed exam as per Dr. Sumner. Dr. Sumner will be contacting Dr. Ackerman about us starting her up on steroids again and out plan which is as follows. We discussed the findings as outlined above and below in this note. We discussed her treatment alternatives including proceeding with definitive radiation and temozolomide. They all ready had requested a second opinion at [facility] and we see an appointment January 14. We shared with them that without kavitai ng a post-operative MRI it is difficult for us to comment on whether or not we could/should proceed with treatment now or if she has been maximally safely debulked. We discussed the rationale, risks,side effects and goals of radiation therapy. We discussed the acute as well as delivery agent risks, incl uding, but not limited to fatigue, nausea/vomiting, headaches, dermatitis, alopecia, seizures, weakness, mental status change, changes in cognition, brain radionecrosis. Final dose would be determined when we have the final mutational status, but could vary from 57 Gy to 60 Gy in 27 to 30 fractions. We are not aware of any [place] studies that she would be eligible for, so she will likely return here for radiation therapy. We discussed her case with our DIET CONSULTANT Rad Onc leader and proton therapy is not recommended. I shared with them that we can have their input for our field design. We discussed the pros and cons of radiation here vs in [place]. We discussed that we could get things started as soon as possible. Hopefully she will have some improvement with steroids. She may need rehabilitation and we will make a social work consultation. They asked about referral for genetics counseling/testing given her mother's CHK2 mutation. We will see her back as soon as possible for radiation planning. We will need an MRI either now or after additional surgery. Their questions were answered, and they were comfortable with this plan. My thanks to Drs. Ackerman, Germán, and Yoon for the opportunity to participate in this patient's care. EDUCATION Ready to learn, no apparent learning barriers were identified; learning preferences include listening. Explained diagnosis and treatment plan; patient expressed understanding of the content. 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 Time includes both non face to face and face to face patient care. Signed by: Stephanie Gleason M.D. 01/01/2022 2:41 PM CDT Pager [phone] documented in this encounter Miscellaneous Notes Addendum Note - Kimmie Goff C.NAndrea - 01/01/2022 10:00 AM CDT Encounter addended by: Kimmie Goff C.NAndrea on: 01/02/2022 7:12 AM Actions taken: Letter saved documented in this encounter Plan of Treatment Upcoming Encounters Date Type Specialty Care Team Description 03/12/2022 Appointment Radiation Oncology Stephanie Gleason M.D. [address] [place] [phone] 03/12/2022 Appointment Radiation Oncology Stephanie Gleason M.D. [address] [place] [phone] 03/13/2022 Appointment Radiation Oncology Stephanie Gleason M.D. [address] [place] [phone] 03/14/2022 Appointment Radiation Oncology Stephanie Gleason M.D. [address] [place] [phone] 03/25/2022 Ancillary Procedure Ophthalmology Chas Shni M.D. [address] [place] [phone] 03/25/2022 Ancillary Procedure Ophthalmology 03/25/2022 Ancillary Procedure Ophthalmology Chas Shin M.D. [address] [place] [phone] 03/26/2022 Ancillary Procedure Ophthalmology Rebeca Valle, Dilia-Rusty., M.S. [address] [place] [phone] 03/26/2022 Comprehensive Visit Ophthalmology Chas Shin M.D. [address] [place] [phone] 03/29/2022 Comprehensive Visit Endocrinology Farzana Allen M.D. [address] [place] [phone] 04/04/2022 Appointment Radiology Christina Tai P.A.-C., M.S. [address] [place] [phone] 04/04/2022 Office Visit Oncology Vini Maki M.D., Ph.D. [address] [place] [phone] 04/04/2022 Office Visit Neurological Surgery Charles Ivey M.D., Ph.D. [address] [place] [address] [phone] 05/03/2022 Comprehensive Visit Clinical Genomics Sanya Mehta M.D. [address] [place] [address] [phone] 05/06/2022 Clinical Communication Admitting/Central Scheduling 05/09/2022 Office Visit Oncology Farzana Allen M.D. [address] [place] [phone] Scheduled Referrals Name Type Priority Associated Diagnoses Order S chedule Social Work - Outpatient Referral Routine Malignant Neoplasm E xpected: General consult Of Brain (HCC) 01/01/2022 (clinic) (Approximate), Expires: 04/03/2023 Clinical Genomics Outpatient Referral Routine Malignant Neopla sm Expected: - General genetics Of Brain (HCC) 022 consult (clinic) (Approximat e), Expires: 04/03/2023 documented as of this encounter Visit Diagnoses Diagnosis Malignant Neoplasm Of Brain (HCC) - Prim uyen documented in this encounter
--- OUTSIDE RECORDS SUMMARY | 2022-03-12 14:36 | XMS_ITS | Encounter Summary ---
:1970 Author Organization [facility] Address [address] [place] [address] Care Team Providers Name Role Phone Unavailable Primary Care Provider Unavailable Reason for Referral Outpatient (Routine) - Closed Specialty Diagnoses / Procedures Referred By Contact Refer red To Contact Neurological Surgery Diagnoses Mass Brain Evangelist Salinas M.D., [facility] Ph.D. [address] [place] [phone] Referral ID Status Reason Start Date Expiration Date Visits Requ ested Visits Authorized [id number] Closed 01/01/2022 01/01/2023 1 1 Scheduling Instructions Please schedule at least one day after f unctional MRI MRI/CAT/PET Scan (Routine) - Closed Specialty Diagnoses / Procedures Referred By Contact Refer red To Contact Radiology Diagnoses Mass Brain Evangelist Salinas M.D., [facility] Procedures MR Brain Functional Language with MD Administration Ph.D. [address] [place] [phone] Referral ID Status Reason Start Date Expiration Date Visits Requ ested Visits Authorized [id number] Closed 01/01/2022 01/01/2023 1 1 Encounter Details Date Type Department Care Team Description 01/01/2022 Orders Only Department of LarryMarsha carr Mass Br ain (Primary Neurologic Surgery in R.N. Dx) [place], [place] [address] [place] [phone] Social History Tobacco Use Types Packs/Day Years [...] or relatives? How often do you attend samaritan or More than 4 times per year 01/07/2022 episcopalian services? Do you belong to any clubs or No 01/07/2022 organizations such as samaritan groups, unions, fraternal or athletic groups, or [...] or slept in a fci (including now)? Sex Assigned at Date Recorded Female 01/07/2022 11:11 AM CDT documented as of this encounter Plan of Treatment Upcoming Encounters Date Type Specialty Care Team Description 03/12/2022 Appointment Radiation Oncology Stephanie Gleason M.D. [address] [place] [phone] 03/12/2022 Appointment Radiation Oncology Stephanie Gleason M.D. [address] [place] [phone] 03/13/2022 Appointment Radiation Oncology Stephanie Gleason M.D. [address] [place] [phone] 03/14/2022 Appointment Radiation Oncology Stephanie Gleason M.D. [address] [place] [phone] 03/25/2022 Ancillary Procedure Ophthalmology Chas Shin M.D. [address] [place] [phone] 03/25/2022 Ancillary Procedure Ophthalmology 03/25/2022 Ancillary Procedure Ophthalmology Chas Shin M.D. [address] [place] [phone] 03/26/2022 Ancillary Procedure Ophthalmology Rebeca Valle P.A.-Rusty., M.S. [address] [place] [phone] 03/26/2022 Comprehensive Visit Ophthalmology Chas Shin M.D. [address] [place] [phone] 03/29/2022 Comprehensive Visit Endocrinology Farzana Allen M.D. [address] [place] [phone] 04/04/2022 Appointment Radiology Christina Tai P.A.-C., M.S. [address] [place] [phone] 04/04/2022 Office Visit Oncology Vini Maki M.D., Ph.D. [address] [place] [phone] 04/04/2022 Office Visit Neurological Surgery Charles Ivey M.D., Ph.D. [address] [place] [phone] 05/03/2022 Comprehensive Visit Clinical Genomics Sanya Mehta M.D. [address] [place] [phone] 05/06/2022 Clinical Communication Admitting/Central Scheduling 05/09/2022 Office Visit Oncology Farzana Allen M.D. [address] [place] [address] [phone] Scheduled Referrals Name Type Priority Associated Order Schedule Diagnoses Neurological Surgery Outpatient Referral Routine Mass Brain Expected: - General consult 01/01/2022 (clinic) (Approximate), Expires: 04/03/2023 documented as of this encounter Results MR Brain Functional Language with MD Administration (01/09/2022 12:04 PM CDT) Anatomical Region Laterality Modality Head, Brain, Neuroradiology RST LOS, Neuroradiology ARZ N/A Magnetic Resonance LOS, Neuroradiology FLA [facility] Specimen (Source) Anatomical Collection Method Collection [...] the appearance and size of the left tdlvxah-cavmngxd-yiejfxio mass since 03/2022. The mass demonstrates new [...] were acquired and statistically evaluated with the Sylantro workstation using AFNI based correlation analysis. Training: ??The patient was trained in t he selected fMRI tasks by Dr. Coffey. ??The patient's ability to perform these tasks was assessed greta sarah the training session. 1. ??Task: ??Rhyming [facility] Patient self-assessment of performance: ??Inadequate Technologist assessment of performance: ??Inadequate Accuracy: ?11.7% Average response time: ??1.7sec Head motion: ? 0.4 mm Statistical methods: ?T statis tic filtered 2. ??Task: ??Sentence completion [facility] Patient self-assessment of performance: ?Adequate [...] the appearance and size of the left fuqiouh-ffyfhkrl-iuyscplx mass since 03/2022. The mass demonstrates new [...] were acquired and statistically evaluated with the Sylantro workstation using AFNI based correlation analysis. Training: The patient was trained in th e selected fMRI tasks by Dr. Coffey. The patient's ability to perform these tasks was assessed greta sarah the training session. 1. Task: Rhyming [facility] Patient self-assessment of performance: Inadequate Technologist assessment of performance: Inadequate Accuracy: 11.7% Average response time: 1.7sec Head motion: 0.4mm Statistical methods: T statistic filtered 2. Task: Sentence completion SMS Patient self-assessment of performance: Adequate Technologist assessment [...] this encounter Visit Diagnoses Diagnosis Mass Brain - Primary Mass Brain documented in this encounter Additional Health Concerns Infection Onset Date Last Indicated Resolved Time COVID19 Pending 01/09/2022 01/09/2022 01/09/2022 7:47 PM CDT documented as of this encounter
--- OUTSIDE RECORDS SUMMARY | 2022-03-12 16:00 | XMS_ITS | Encounter Summary ---
:1970 Author Organization [facility] Address [address] [place] [phone] Phone Care Team Providers Name Role Phone Unavailable Primary Care Provider Unavailable Encounter Details Date Type Department Care Team Description 02/05/2022 Documentation Only Unspecified Departme nt Unknown, Provider [place] Social History Tobacco Use Types Packs/Day Years Used Date Smoking Tobacco: Former Smokeless Tobacco: Never Sex Assigned at Date Recorded Not on file documented as of this encounter Plan of Treatment Not on filedocumented as of this encounter Procedures Procedure Name Priority Date/Time Associated Diagnosis Comme nts EXTERNAL MED 02/07/2022 5:20 PM Results for this REC-LAB RESULTS CDT procedure ar e in the results section. documented in this encounter Results EXTERNAL MED REC-LAB RESULTS (02/07/2022 5:20 PM CDT) Narrative 02/07/2022 5:20 PM CDT This result has an attachment that is no t available. Ordered by an unspecified provider. Provider Unknown LABORATORY documented in this encounter Visit Diagnoses Not on filedocumented in this encounter
--- OUTSIDE RECORDS SUMMARY | 2022-03-12 16:00 | XMS_ITS | Encounter Summary ---
:1970 Author Organization [facility] Address [address] [place] [address] Phone Care Team Providers Name Role Phone Unavailable Primary Care Provider Unavailable Reason for Visit Reason Onset Date Comments Other 12/25/2021 Encounter Details Date Type Department Care Team Description 12/25/2021 Telephone Clinic & Specialty Marie Alexis Retu rn call Requested Center Neuro Surgery PSC from Neuro-Oncologist Clinic [address] [place] [phone] Social History Tobacco Use Types Packs/Day Years Used Date Smoking Tobacco: Former Smokeless Tobacco: Never Sex Assigned at Date Recorded Not on file COVID-19 Exposure Response Date Recorded In the last 10 days, have you been in contact with No / Unsu re 12/18/2021 8:23 AM CDT someone who was confirmed or suspected to have Coronavirus/COVID-19? documented as of this encounter Miscellaneous Notes Telephone Encounter - Marie Alexis, PSC - 12/25/2021 1:46 PM CDT Geni nurse from Dr Shelbie Ackerman's office([facility] Neuro-oncologist) called and Dr Ackerman would like to discuss Mia and if more surgery is feasible with Dr Dunlap. Dr Ackerman can be reached on her cell phone to discuss patient at [phone]. Thanks, Marie Alexis PSC, 12/25/2021 1:50 PM documented in this encounter Plan of Treatment Not on filedocumented as of this encounter Visit Diagnoses Not on filedocumented in this encounter
--- OUTSIDE RECORDS SUMMARY | 2022-03-12 16:00 | XMS_ITS | Encounter Summary ---
:1970 Author Organization [facility] Address [address] [place] [address] Phone Care Team Providers Name Role Phone Unavailable Primary Care Provider Unavailable Encounter Details Date Type Department Care Team Description 12/18/2021 Travel Social History Tobacco Use Types Packs/Day Years Used Date Smoking Tobacco: Former Smokeless Tobacco: Never Sex Assigned at Date Recorded Not on file COVID-19 Exposure Response Date Recorded In the last 10 days, have you been in contact with No / Unsu re 12/18/2021 8:23 AM CDT someone who was confirmed or suspected to have Coronavirus/COVID-19? documented as of this encounter Plan of Treatment Not on filedocumented as of this encounter Visit Diagnoses Not on filedocumented in this encounter
--- OUTSIDE RECORDS SUMMARY | 2022-03-12 16:00 | XMS_ITS | Encounter Summary ---
:1970 Author Organization [facility] Address [address] [place] [phone] Phone Care Team Providers Name Role Phone Unavailable Primary Care Provider Unavailable Reason for Referral Consult/Test/Treat (Elective) - New Request Specialty Diagnoses / Procedures Referred By Contact Refer red To Contact Oncology / ONCOLOGY Diagnoses Brain tumor () Darinel Dunlap Elizabeth Ernst, MD Catherine, MD [address] [place] [address] [address] [place] [address] Fax: Referral ID Status Reason Start Date Expiration Date Visits V isits Requested Authorized [id number] New Request 12/18/2021 12/18/2022 1 1 Scheduling Instructions 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 Reason for Visit Reason Comments Neurologic Problem Follow-up Encounter Details Date Type Department Care Team Description 12/18/2021 Office Visit Clinic & Specialty Darinel Dunlap Brain tumor () Center Neuro Surgery MD Jamal (Primary Dx) Clinic [address] [facility] [facility] [address] [phone] Social History Tobacco Use Types Packs/Day Years Used Date Smoking Tobacco: Former Smokeless Tobacco: Never Sex Assigned at Date Recorded Not on file COVID-19 Exposure Response Date Recorded In the last 10 days, have you been in contact with No / Unsu re 12/18/2021 8:23 AM CDT someone who was confirmed or suspected to have Coronavirus/COVID-19? documented as of this encounter Last Filed Vital Signs Vital Sign Reading Time Taken Comments Blood Pressure 128/79 12/18/2021 8:27 AM CDT Pulse 80 12/18/2021 8:27 AM CDT Temperature - - Respiratory Rate - - Oxygen Saturation - - Inhaled Oxygen Concentration - - Weight 95.7 kg (211 lb) 12/18/2021 8:27 AM CDT Height - - Body Mass Index 34.58 11/30/2021 8:17 PM CDT documented in this encounter Patient Instructions Patient InstructionsFrGilberto segura MD - 12/18/2021 9:51 AM CDT You were seen at [facility] neuro[place] clinic for follow-up on your brain biopsy results. We recommend a referral to the [facility] for Dr. Shelbie Ackerman. The referral will be faxed over. documented in this encounter Progress Notes Gilberto Zavala MD - 12/18/2021 8:15 AM CDT NEUROSURGERY CLINIC NOTE Guillermina Kelsey : 1970 Sex: female Assessment: -51 year old female approximately 2 weeks post-op from left parietal biopsy for diffuse, non-contrast enhancing lesion. 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 Plan: - Recommend referral to the [facility], Dr. Shelbie Ackerman. Referral order placed and faxed to [place]. Copy given to patient. - Complete decadron taper. - Continue keppra. - Sutures removed today. OK to resume activities in graduated fashion. - OK for chemotherapy and radiation in 1 month from biopsy date (01/04/2022). - OK for commercial air flight approximately 1 month from biopsy (Planning for trip to [place] with her significant other in December). Chief Complaint: Follow-up on biopsy results and suture removal. History of Present Illness: Guillermina Kelsey is a 51 year old female with a limited past medical history who presented in early November 2021 with an initial seizure and word finding difficulty. Lesion seen on MRI in multiple locations in the left parietal, and surrounding deep structures. STEALTH open biopsy was performed on 12/05/2021. Surgery was uncomplicated and the patient discharged shortly after. She is here with her mother andsignificant other. Results from biopsy were discussed with Dr. Dunlap. Medical/Surgical History: No past medical history on file. Past Surgical History: Procedure Laterality Date ??? CRANIOTOMY WITH OPEN BIOPSY WITH STEALTH Left 12/05/2021 Procedure: CRANIOTOMY WITH OPEN BIOPSY WITH STEALTH; Laterality: Left; Surgeon: Darinel Dunlap MD; Service: Neurosurgery Psychosocial History: Reviewed Family History: No known family history of neurologic disease Medications: Reviewed Allergies: Allergies Allergen Reactions ??? Lactose Rash ??? Adhesive Tape Itching/Pruritus Review of Systems: Complete review of systems done as noted below and/or in the History of Present Illness. All other systems negative. Physical Exam: General: no distress Pulmonary/Cardiovascular: comfortable respiratory effort Neurologic: Mental status: oriented to time, place, person Cranial nerves: full visual garcia; pupils equal and reactive Full extraocular movements facial muscles symmetric no dysarthria Motor Strength: RUE strength 5/5 , LUE strength 5/5, RLE strength 5/5 and LLE strength 5/5 Reflexes: symmetric Coordination: oltrgu-smgh-wqiiyg intact Sensation: intact sensation to light touch LABS: BMP Lab Results Component Value Date/Time NA 133 (L) 12/06/2021 0525 K 4.1 12/06/2021 0525 CHLORIDE 100 12/06/2021 0525 CO2 23 12/06/2021 0525 GLU 128 (H) 12/06/2021 0525 UN 18 12/06/2021 0525 CR 0.61 12/06/2021 0525 CA 8.9 12/06/2021 0525 CBC Lab Results Component Value Date/Time WBC 18.50 (H) 12/06/2021 0525 RBC 3.88 (L) 12/06/2021 0525 HGB 11.3 (L) 12/06/2021 0525 HCT 34.7 12/06/2021 0525 PLT 301 12/06/2021 0525 RADIOLOGY: The most recent imaging was reviewed. Gilberto Zavala MD, PhD Neurosurgery Chief Resident Darinel Dunlap MD - 12/18/2021 12:00 [place] [address] [facility]#: [id number] PATIENT: GUILLERMINA KELSEY : 1970 DATE OF SERVICE: 12/18/2021 SURGERY CLINIC We had the opportunity to visit with Guillermina Kelsey in our Neurosurgery Clinic today for followup evaluation after the biopsy of her left parietal and posterotemporal and deep lesion. The pathology for this came back from the [facility] as a grade 3 astrocytoma. Please see the excellent note from Dr. Gilberto Zavala in regard to this patient. I agree with its contents and had the opportunityto review matters directly with the patient, her significant other, and her mother in clinic today. We are going to make arrangements for the patient to follow up with Neuro- Oncology. They are interested in getting additional opinions and are considering going to the [facility] as this is more convenient than the [facility]. I recommended that she see Dr. Ackerman of the [facility], and we would be happy to arrange for an appointment with her in the near future. I know shewill be in very good hands for adjuvant treatment with either of these sources. Her incision is well healed without evidence of infection. There is no further surgical options from my standpoint for this diagnosis, and given the extent of her tumor and that it is multifocal, I think appropriate chemotherapy and radiation are warranted, but we will leave that up to the Neuro-Oncology experts. She is to remain on her anticonvulsants. All of their questions were answered. Darinel Dunlap MD Staff Physician Surgery Service Received in [place] Machine Operator: 12/19/2021 18:36:45 M: /[id number] WG/MODL documented in this encounter Plan of Treatment Scheduled Referrals Name Type Priority Associated Diagnoses Order S chedule REFERRAL TO ONCOLOGY Referral Routine Brain tumor () Ord ered: 12/18/2021 documented as of this encounter Visit Diagnoses Diagnosis Brain tumor () - Primary Neoplasm of unspecified nature of brain documented in this encounter
--- OUTSIDE RECORDS SUMMARY | 2022-03-12 16:00 | XMS_ITS | Clinical Summary ---
:1970 Author Organization [facility] Address [address] [place] [phone] Phone Care Team Providers Name Role Phone Unavailable Primary Care Provider Unavailable Source Comments [employer] is fully rolled out on [employer]. Last update 01/27/09.[place] Allergies Active Allergy Reactions Severity Noted Date Comments Adhesive Tape Itching/Pruritus Low 11/30/2021 Lactose Rash 06/17/2019 Medications Be aware that medications may not be up to date as of this document. Always verify current medications with patient. Medication Sig Dispensed Refills Start Date End Date Status 27-1 mg oral Take 1 tablet by 0 Active TABS mouth daily. acetaminophen 325 mg Take 2 tablets 50 tablet 1 12/07/2021 Active oral tablet (650 mg) by mouth every 4 hours as needed for Mild Pain. levETIRAcetam (KEPPRA) Take 1 tablet 60 tablet 2 12/07/2021 Active 1000 mg oral TABS (1,000 mg) by mouth twice daily. dexamethasone Take one tablet (4mg) by mouth per the schedule below 30 tablet 0 12/07/2021 Active (DECADRON) 4 mg oral 416: Take one tablet every 6 hours TABS 417: Take one tablet every 6 hours 418: Take one tablet every 6 hours 19: Take one tabet every 8 hours 420: Take one tabet every 8 hours 421: Take one tabet every 8 hours 422: Take one tablet every 12 hours 23: Take one tablet every 12 hours 24: Take one tablet every 12 hours 12/17: Take one tablet daily 12/18: Take one tablet daily 12/19: Take one tablet daily Active Problems Problem Noted Date Focal seizure 12/03/2021 Brain mass 11/30/2021 Encounters Date Type Specialty Care Team Description 02/21/2022 Documentation Only Unknown, Provider 02/05/2022 Documentation Only Unknown, Provider 01/09/2022 Documentation Only Unknown, Provider 01/09/2022 Documentation Only Unknown, Provider 12/26/2021 Documentation Only Unknown, Provider 12/25/2021 Telephone NEUROSURGERY Vanesa, Marie Alfaro, Luna cobb l Requested PSC from Neuro-Onco logist 12/22/2021 Documentation Only Unknown, Provider 12/18/2021 Office Visit NEUROSURGERY Darinel Dunlap Brain tumor () MD Jamal (Primary Dx) 12/18/2021 Documentation Only Unknown, Provider 12/18/2021 Travel from Last 3 Months Social History Tobacco Use Types Packs/Day Years Used Date Smoking Tobacco: Former Smokeless Tobacco: Never Sex Assigned at Date Recorded Not on file Last Filed Vital Signs Vital Sign Reading Time Taken Comments Blood Pressure 128/79 12/18/2021 8:27 AM CDT Pulse 80 12/18/2021 8:27 AM CDT Temperature 36.1 ??C (97 ??F) 12/07/2021 3:00 PM CDT Respiratory Rate 18 12/07/2021 3:00 PM CDT Oxygen Saturation 98% 12/07/2021 3:00 PM CDT Inhaled Oxygen Concentration - - Weight 95.7 kg (211 lb) 12/18/2021 8:27 AM CDT Height 166.4 cm (5' 5.5) 11/30/2021 8:17 PM CDT Body Mass Index 34.58 11/30/2021 8:17 PM CDT Plan of Treatment Health Maintenance Due Date Last Done Comments Breast Cancer Screening 1970 CT Colonography 1970 Colonoscopy 1970 Colorectal Cancer Screening 1970 Dental Oral Exam 1970 Dental Prophylaxis 1970 Dental X-Ray: Bitewings 1970 FIT/Cologuard 1970 Sigmoidoscopy 1970 iFOB/FIT 1970 Lipid Screening 1971 Periodontal Maintenance 1984 PREVENTATIVE VISIT 1988 TD/TDAP ADULTS 1988 HEALTH MAINTENANCE PROTOCOL 1989 Cervical Cancer Screening Age 1107/17/2000 30-65 COVID-19 Vaccine (4 - Booster 09/26/2021 07/04/2021, for Pfizer series) 10/10/2020, 09/19/2020 INFLUENZA VACCINE 04/25/2022 HIV Screening Completed 12/03/2021 HIB Aged Out No longer eligib le based on patient's age to complete this to pic Medical Devices Implanted Type Area Director Safety Council Device Shelf Model / Identifier Expiration Serial / Lot Date Dura,Duragen 3x3in [id number] Duragen Left: [employer] 1 09/23/2023 [id number] / Implanted: Qty: 1 on 12/05/2021 by Tommy Arevaol MD at [facility] Head SCIENCES YAZ / [id number] Surgicel 4x8 2 Hemostatic Left: [employer] 2 [id number] / Implanted: Qty: 1 on 12/05/2021 by Darinel Dunlap MD at [facility] Agent Head / Pyatt Hole Cover, 17mm 421.527 Plate Left: [employer] [id number] / Implanted: Qty: 1 on 12/05/2021 by Tommy Arevalo MD at [facility] Head / 4mm [id number] Screw/[place] Left: [employer] 400 .[id number] / Implanted: Qty: 9 on 12/05/2021 by Tommy Arevalo MD at [facility] Head / Procedures Procedure Name Priority Date/Time Associated Diagnosis Comme nts EXTERNAL MED 02/24/2022 2:46 PM Results for this REC-LAB RESULTS CDT procedure ar e in the results section. EXTERNAL MED 02/07/2022 5:20 PM Results for this REC-LAB RESULTS CDT procedure ar e in the results section. EXTERNAL MED 01/10/2022 2:05 PM Results for this REC-LAB RESULTS CDT procedure ar e in the results section. EXTERNAL MED 01/09/2022 5:04 PM Results for this REC-LAB RESULTS CDT procedure ar e in the results section. EXTERNAL MED 12/28/2021 3:48 PM Results for this REC-LAB RESULTS CDT procedure ar e in the results section. EXTERNAL MED 12/23/2021 1:21 PM Results for this REC-LAB RESULTS CDT procedure ar e in the results section. EXTERNAL MED 12/19/2021 11:58 AM Results for this REC-LAB RESULTS CDT procedure ar e in the results section. from Last 3 Months Results EXTERNAL MED REC-LAB RESULTS (02/24/2022 2:46 PM CDT)Only the most recent of7 resultswithin the time period is included. Narrative 02/24/2022 2:46 PM CDT This result has an attachment that is no t available. Ordered by an unspecified provider. Provider Unknown LABORATORY from Last 3 Months Insurance Payer Benefit Plan / Subscriber ID Effective Dates Phone Addre ss Type Group [employer]UE [employer] COMMERCIAL [id number] 2019-Presen [address] [address] PPO BLUE SHIELD ([place]/BLUE t [place], [place] PL[place]/CCS/OPEN [phone] ACCESS/CONSUMER [email or web address]) Advance Directives For more information, please contact: [phone] Latest Code Status on File Code Status Date Activated Date Inactivated Comments Full Code 11/30/2021 6:36 PM 12/07/2021 11:10 PM Does the Patient have preferences regarding life sustaining measures Yes (these options only apply when the patient has a pulse): Patient will accept intubation for respiratory deterioration : Unaddressed Patient will accept BiPAP for respiratory deterioration: Yelitza ddressed Patient will accept vasopressors for hypotension: Unaddresse d Patient will accept cardioversion for unstable rhythm: Unadd ressed Discussed Code Status With Whom? Patient Health Care Directive and/or Previous Code/End of Life Pref Reviewed? No
--- OUTSIDE RECORDS SUMMARY | 2022-03-12 16:00 | XMS_ITS | Encounter Summary ---
:1970 Author Organization [facility] Address [address] [place] [phone] Phone Care Team Providers Name Role Phone Unavailable Primary Care Provider Unavailable Encounter Details Date Type Department Care Team Description 12/26/2021 Documentation Only Unspecified Departme nt Unknown, Provider [...] Date/Time Associated Diagnosis Comme nts EXTERNAL MED 12/28/2021 3:48 PM Results for this REC-LAB RESULTS CDT procedure ar e in the results section. documented in this encounter Results EXTERNAL MED REC-LAB RESULTS (12/28/2021 3:48 PM CDT) Narrative 12/28/2021 3:48 PM CDT This result has an attachment that is no t available. Ordered by an unspecified provider. Provider Unknown LABORATORY documented in this encounter Visit Diagnoses Not on filedocumented in this encounter
--- OUTSIDE RECORDS SUMMARY | 2022-03-12 16:00 | XMS_ITS | Encounter Summary ---
:1970 Author Organization [facility] Address [address] [place] [phone] Phone Care Team Providers Name Role Phone Unavailable Primary Care Provider Unavailable Encounter Details Date Type Department Care Team Description 02/21/2022 Documentation Only Unspecified Departme nt Unknown, Provider [...] this encounter Results EXTERNAL MED REC-LAB RESULTS (02/24/2022 2:46 PM CDT) Narrative 02/24/2022 2:46 PM CDT This result has an attachment that is no t available. Ordered by an unspecified provider. Provider Unknown LABORATORY documented in this encounter Visit Diagnoses Not on filedocumented in this encounter
--- OUTSIDE RECORDS SUMMARY | 2022-03-12 16:00 | XMS_ITS | Encounter Summary ---
:1970 Author Organization [facility] Address [address] [place] [phone] Phone Care Team Providers Name Role Phone Unavailable Primary Care Provider Unavailable Encounter Details Date Type Department Care Team Description 12/18/2021 Documentation Only Unspecified Departme nt Unknown, Provider [...] Date/Time Associated Diagnosis Comme nts EXTERNAL MED 12/19/2021 11:58 AM Results for this REC-LAB RESULTS CDT procedure ar e in the results section. documented in this encounter Results EXTERNAL MED REC-LAB RESULTS (12/19/2021 11:58 AM CDT) Narrative 12/19/2021 11:58 AM CDT This result has an attachment that is no t available. Ordered by an unspecified provider. Provider Unknown LABORATORY documented in this encounter Visit Diagnoses Not on filedocumented in this encounter
--- OUTSIDE RECORDS SUMMARY | 2022-03-12 16:00 | XMS_ITS | Encounter Summary ---
:1970 Author Organization [facility] Address [address] [place] [address] Phone Care Team Providers Name Role Phone Unavailable Primary Care Provider Unavailable Encounter Details Date Type Department Care Team Description 01/09/2022 Documentation Only Unspecified Departme nt Unknown, Provider [...] Date/Time Associated Diagnosis Comme nts EXTERNAL MED 01/10/2022 2:05 PM Results for this REC-LAB RESULTS CDT procedure ar e in the results section. documented in this encounter Results EXTERNAL MED REC-LAB RESULTS (01/10/2022 2:05 PM CDT) Narrative 01/10/2022 2:05 PM CDT This result has an attachment that is no t available. Ordered by an unspecified provider. Provider Unknown LABORATORY documented in this encounter Visit Diagnoses Not on filedocumented in this encounter
--- OUTSIDE RECORDS SUMMARY | 2022-03-12 16:00 | XMS_ITS | Encounter Summary ---
:[address] [facility] Address [address] [place] [phone] Phone Care Team Providers Name Role Phone Unavailable Primary Care Provider Unavailable Encounter Details Date Type Department Care Team Description 12/22/2021 Documentation Only Unspecified Departme nt Unknown, Provider [...] Date/Time Associated Diagnosis Comme nts EXTERNAL MED 12/23/2021 1:21 PM Results for this REC-LAB RESULTS CDT procedure ar e in the results section. documented in this encounter Results EXTERNAL MED REC-LAB RESULTS (12/23/2021 1:21 PM CDT) Narrative 12/23/2021 1:21 PM CDT This result has an attachment that is no t available. Ordered by an unspecified provider. Provider Unknown LABORATORY documented in this encounter Visit Diagnoses Not on filedocumented in this encounter
--- OUTSIDE RECORDS SUMMARY | 2022-03-12 16:00 | XMS_ITS | Encounter Summary ---
:1970 Author Organization [facility] Address [address] [place] [phone] Phone Care Team Providers Name Role Phone [...] Date/Time Associated Diagnosis Comme nts EXTERNAL MED 01/09/2022 5:04 PM Results for this REC-LAB RESULTS CDT procedure ar e in the results section. documented in this encounter Results EXTERNAL MED REC-LAB RESULTS (01/09/2022 5:04 PM CDT) Narrative 01/09/2022 5:04 PM CDT This result has an attachment that is no t available. Ordered by an unspecified provider. Provider Unknown LABORATORY documented in this encounter Visit Diagnoses Not on filedocumented in this encounter
--- OUTSIDE RECORDS SUMMARY | 2022-03-12 16:01 | XMS_ITS | Encounter Summary ---
:1970 Author Organization [facility] Address [address] [place] [address] Phone Care Team Providers Name Role Phone Unavailable Primary Care Provider Unavailable Encounter Details Date Type Department Care Team Description 12/03/2021 Orders Only [facility] [place] Room Provider, Outside Referral of patient [facility] OUTSIDE PROVIDER (Primary Dx) [place], [place] Radiology Department [id number] [facility] [address] [address] Social History Tobacco Use Types Packs/Day Years Used Date Smoking Tobacco: Never Assessed Sex Assigned at Date Recorded Not on file COVID-19 Exposure Response Date Recorded In the last 10 days, have you been in contact with No / Unsu re 12/18/2021 8:23 AM CDT someone who was confirmed or suspected to have Coronavirus/COVID-19? documented as of this encounter Plan of Treatment Not on filedocumented as of this encounter Results MR HEAD OUTSIDE FILMS (04/04/2015 3:34 PM CDT) Specimen (Source) Anatomical Location Collection Method / Collectio n Time Received Time / Laterality Volume Narrative Dummy, [id number] - 2 2:03 PM CDT Outside Film Only Outside Provider OUTSIDE FILMS documented in this encounter Visit Diagnoses Diagnosis Referral of patient - Primary Referral of patient without examination or treatment documented in this encounter
--- OUTSIDE RECORDS SUMMARY | 2022-03-12 16:01 | XMS_ITS | Encounter Summary ---
:1970 Author Organization [facility] Address [address] [place] [phone] Phone Care Team Providers Name Role Phone Unavailable Primary Care Provider Unavailable Encounter Details Date Type Department Care Team Description 12/06/2021 Orders Only Unspecified Departme nt Unknown, Provider [place] [...] Name Priority Date/Time Associated Diagnosis Comme nts TELEMETRY STRIPS 12/06/2021 8:54 PM Resu lts for this CDT procedure are i n the results section. documented in this encounter Results TELEMETRY STRIPS (12/06/2021 8:54 PM CDT) Narrative 12/06/2021 8:54 PM CDT This result has an attachment that is no t available. Ordered by an unspecified provider. Provider Unknown ECHO documented in this encounter Visit Diagnoses Not on filedocumented in this encounter
--- OUTSIDE RECORDS SUMMARY | 2022-03-12 16:01 | XMS_ITS | Encounter Summary ---
:1970 Author Organization [facility] Address [address] [place] [phone] Phone Care Team Providers Name Role Phone Unavailable Primary Care Provider Unavailable Encounter Details Date Type Department Care Team Description 11/30/2021 Travel Social History Tobacco Use Types Packs/Day Years Used Date Smoking Tobacco: Never Assessed Sex Assigned at Date Recorded Not on file COVID-19 Exposure Response Date Recorded In the last 10 days, have you been in contact with No / Unsu re 11/30/2021 8:21 PM CDT someone who was confirmed or suspected to have Coronavirus/COVID-19? documented as of this encounter Plan of Treatment Not on filedocumented as of this encounter Visit Diagnoses Not on filedocumented in this encounter
--- OUTSIDE RECORDS SUMMARY | 2022-03-12 16:01 | XMS_ITS | Encounter Summary ---
:1970 Author Organization [facility] Address [address] [place] [address] Phone Care Team Providers Name Role Phone Unavailable Primary Care Provider Unavailable Encounter Details Date Type Department Care Team Description 11/30/2021 Orders Only Unspecified Departme nt Unknown, Provider [...] Date/Time Associated Diagnosis Comme nts TELEMETRY STRIPS 11/30/2021 7:18 PM Resu lts for this CDT procedure are i n the results section. documented in this encounter Results TELEMETRY STRIPS (11/30/2021 7:18 PM CDT) Narrative 11/30/2021 7:18 PM CDT This result has an attachment that is no t available. Ordered by an unspecified provider. Provider Unknown ECHO documented in this encounter Visit Diagnoses Not on filedocumented in this encounter
--- OUTSIDE RECORDS SUMMARY | 2022-03-12 16:01 | XMS_ITS | Encounter Summary ---
:1970 Author Organization [facility] Address [address] [place] [address] Phone Care Team Providers Name Role Phone Unavailable Primary Care Provider Unavailable Reason for Visit Auth/Cert Specialty Diagnoses / Procedures Referred By Contact Refer red To Contact SURGERY Diagnoses Brain Mass Korin Blanco MD [facility] [address] [facility] [address] [place] [address] [id number] [place] [address] Phone: Fax: Referral ID Status Reason Start Date Expiration Date Visits Requ ested Visits Authorized [id number] 1 1 Encounter Details Date Type Department Care Team Description 11/30/2021 - Hospital Encounter [facility] Catracho Blanco MD [address] [place] [address] [id number] Brain mass 12/07/2021 Surgery/Trauma/Neuro Darinel Dunlap MD [address] [place] [phone] [place] [address] [id number] [place], [place] [address] Social History Tobacco Use Types Packs/Day Years [...] Sign Reading Time Taken Comments Blood Pressure 120/75 12/07/2021 3:00 PM CDT Pulse 78 12/07/2021 3:00 PM CDT Temperature 36.1 ??C (97 ??F) 12/07/2021 3:00 PM CDT Respiratory Rate 18 12/07/2021 3:00 PM CDT Oxygen Saturation 98% 12/07/2021 3:00 PM CDT Inhaled Oxygen Concentration - - Weight 94.2 kg (207 lb 10.8 oz) 11/30/2021 8:17 PM CDT Height 166.4 cm (5' 5.5) 11/30/2021 8:17 PM CDT Body Mass Index 34.03 11/30/2021 8:17 PM CDT documented in this encounter Discharge Summaries Hattie Adams PA-C - 12/07/2021 3:18 PM CDT MEDICINE DISCHARGE SUMMARY Guillermina Kelsey : 1970 Sex: female Date of Admission: 11/30/2021 Date of Discharge: 12/07/2021 Disposition: Home/Self Care Primary Care Physician: No primary care provider on file. 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 Started on steroids and keppra with some improvement in overall symptoms (headaches, word finding), and no further seizures occurred. She was seen byneurology who doubt infection, but have mild suspicion for possible sarcoid given granulomata in spleen. They recommended LP and lab w/u to rule out possible infectious etiologies of encephalitis and TTE to assess for evidence of extrapulmonary sarcoid which was unremarkable. Initial labs and CSF studies were bland, send out labs pending. On 12/05 she went to OR for successful and uncomplicated biopsyof the parietal lobe lesion, path results pending. On 12/07 she remained neurologically intact with fluent speech and stable postop CT, and was discharged on a decadron taper and Keppra 1g BID. HOSPITAL COURSE BY PROBLEM: See above Malnutrition Weight: 94.2 kg (207 lb 10.8 oz) Wt Change from Previous: 0 Kg Wt Change from Admit: 0 Kg % Wt Change from Adm: 0 % [place] Body Wt (IBW) Female (kg): 58.15 kg PERTINENT STUDIES & CONSULTS: MRI Brain w/ and w/o 11/30/2021 Impression: ?? Multiple regions of nonenhancing signal abnormality are present and involve the left temporal and parietal lobes, left thalamus, left internal capsule and sublentiform region, and possibly also the left subinsular white matter. Overall, the appearance is most suggestive of multifocal involvement of glioma; inflammatory or infectious processes are felt less likely. CT C/A/P 12/01/2021 Impression: No evidence for a primary malignancy in the chest, abdomen or pelvis. Lumbar puncture 12/03/2021 Impression: Lumbar puncture performed without immediate complication. Samples sent for laboratory testing, according to the requesting physician's orders. TTE 12/04/2021 SUMMARY The estimated left ventricular ejection fraction is 65 %. There is no left ventricular wall motion abnormality identified. The estimated pulmonary artery systolic pressure is 24 mmHg + RA pressure. 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 The average global longitudinal strain is normal (<= -16%) at -23.9 %. Strain calculated using a Gustavo Epiq CVx . Normal right ventricular size and function. Normal left ventricular cavity size. Normal estimated left ventricular ejection fraction . No wall motion abnormality . Postop CT Head 12/05/2021 Impression: 1. New postoperative changes of left frontoparietal cranioplasty and biopsy. Small 2 mm subdural fluid collection deep to the cranioplasty flap and small amount of pneumocephalus likely postprocedural nature. 2. Small intraparenchymal hemorrhage in the area of biopsy measuring 6 mm. 3. Unchanged 3 mm of [id number] midline shift. 4. Vague hypodense masslike area left temporoparietal junction and left thalamus better characterized on prior MRI PENDING TESTS RESULTS: Pathology results pending from brain biopsy - Finalized as astrocytoma RECOMMENDATIONS AND FOLLOWUP: 12/18/2021 - Follow up with NSG clinic No future appointments. PHYSICAL EXAMINATION: BP 120/75 (Cuff Location: Right Arm) Pulse 78 Temp 36.1 ??C (97 ??F) (Tympanic) Resp 18 Ht 1.664 m (5' 5.5) Wt 94.2 kg (207 lb 10.8 oz) LMP 11/19/2021 (Approximate) Comment: longer period (8 days instead or 2-3) SpO2 98% BMI 34.03 kg/m?? Estimated body mass index is 34.03 kg/m?? as calculated from the following: Height as of this encounter: 1.664 m (5' 5.5). Weight as of this encounter: 94.2 kg (207 lb 10.8 oz). Gen: alert, NAD. Lying in bed. Pulm: no respiratory distress Abd: soft, minimally tender to palpation, nondistended. ?? Extrem: warm, well-perfused, no edema. Skin: no rashes, lesions. Incision??c/d/i Neuro: Head: incision is dry and without erythema Mental status: Alert, awake. Oriented to self, date, and place.??No difficulty with word finding appreciated. Cranial Nerves: II-XII fully intact Motor: Follows commands x4 extremities, 5/5 inspector printed circuit boards strength and plantar/dorsiflexion bilaterally?? Sensory: Sensation intact in all 4 extremities?? ALLERGIES Allergies Allergen Reactions ??? Adhesive Tape Itching/Pruritus PLANNED DISCHARGE ORDERS: Medication List START taking these medications acetaminophen 325 mg tablet Take 2 tablets (650 mg) by mouth every 4 hours as needed for Mild Pain. dexamethasone 4 mg Tabs Commonly known as: DECADRON Take one tablet (4mg) per the schedule below 16: Q6H 12/09: Q6H 12/10: Q6H 12/11: Q8H 12/12: Q8H 12/13: Q8H 12/14: Q12H 12/15: Q12H 12/16: Q12H 12/17: daily 12/18: Daily 12/19: Daily levETIRAcetam 1000 mg Tabs Commonly known as: KEPPRA Take 1 tablet (1,000 mg) by mouth twice daily. oxyCODONE 5 mg tablet Commonly known as: ROXICODONE Take 1-2 tablets (5-10 mg) by mouth every 6 hours as needed (Severe pain). CONTINUE taking these medications 27-1 mg Tabs Where to Get Your Medications These medications were sent to [facility] Discharge Pharmacy - [place] [address] Hours: 17/03 ?? acetaminophen 325 mg tablet ?? dexamethasone 4 mg Tabs ?? levETIRAcetam 1000 mg Tabs ?? oxyCODONE 5 mg tablet Discharge Procedure Orders Special activity instructions Order Comments: Seizure Safety: Per [place] regulations individuals are prohibited from operating a motor vehicle within 3 months following any seizure or other episode with sudden unconsciousness or inability to sit up, and that are required to report any future such seizure to the [facility] within 30 days after the event. I also recommend that patients??review all other activities, and avoid any activities that might lead to self-injury or injury of others following any seizure with impaired awareness or impaired motor control. Suchactivities include but are not limited to holding babies or young children at heights from which they might be injured if dropped, bathing infants or young children in situations in which they might drown without continuous interactive care by an adult who is fully capable at all times during the bath, operating power cutting or other tools, handling firearms, exposure to heights from which they might fall, exposure to vessels with hot cooking oil or water, and swimming (including hot tubs/Jacuzzi) alone. Seizure first aid: Caregivers should make sure that a person having a seizure is safe from harm during a seizure. ??They should support the head from hitting on anything. ??Do not try to hold the person down. ??If able, roll the patient to their side to help clear secretions. ??Do NOT place anything??in mouth. ??After the seizure is over the person will likely be slow to respond and confused for several minutes following. ??Again, make sure to support them and keep them safe. ??Typically seizures last 1-3 minutes. ??If seizure ever lasts more than 5 minutes, call an ambulance. Discussed diagnosis and treatment plan with the patient. Patient verbalized understanding of condition and treatment plan. Planned readmission in the next 30 days: Tami Howell MD 12/07/2021 15:41 documented in this encounter Medications at Time of Discharge Medication Sig Dispensed Refills Start Date End Date acetaminophen 325 mg oral Take 2 tablets (650 50 tablet 1 0 12/07/2021 tablet mg) by mouth every 4 hours as needed for Mild Pain. levETIRAcetam (KEPPRA) Take 1 tablet (1,000 60 tablet 2 1000 mg oral TABS mg) by mouth twice daily. dexamethasone (DECADRON) Take one tablet (4mg) by mouth per the schedule below 30 tablet 0 12/07/2021 4 mg oral TABS 16: Take one tablet every 6 hours 17: Take one tablet every 6 hours 18: Take one tablet every 6 hours 12/11: Take one tabet every 8 hours 12/12: Take one tabet every 8 hours 12/13: Take one tabet every 8 hours 12/14: Take one tablet every 12 hours 12/15: Take one tablet every 12 hours 12/16: Take one tablet every 12 hours 12/17: Take one tablet daily 12/18: Take one tablet daily 12/19: Take one tablet daily 27-1 mg oral Take 1 tablet by 0 TABS mouth daily. oxyCODONE (ROXICODONE) 5 Take 1-2 tablets 20 tablet 0 12/0712/12/2021 mg oral tablet (5-10 mg) by mouth every 6 hours as needed (Severe pain). documented as of this encounter Progress Notes JaydonNanci cole - 12/07/2021 1:17 PM CDT Clinical Coordinator Assessment Patient Name: Guillermina Colling Date: 12/07/2021 Expected DC Date: 12/07/2021 Brief Patient Summary: Patient is a 51 y.o. female admitted on 11/30/2021 with word finding difficulty, found to have a left sided brain mass. MRI showed multifocal brain mass involving left temporal and parietal lobes, left thalamus, left internal capsule and sublentiform region.underwent craniotomy with open biopsy on 12/05 ASSESSMENT Social Information Decision Maker (MD): Self Does the patient have a Health Care Directive? - See ACP section in Storyboard: No Response:: Information given Living Situation: home - with family Patient Identified Support System: Family Independent with ADLs Prior to Admission: Yes Change in Functional Status: Yes Services Receiving: none Income Source: employed Primary Insurance: [employer] [facility] Secondary Insurance: N/A PLAN Plan/Interventions Discharge Plan: home Interventions: care coordination;chart reviewed;discharge planning discussed with patient/support system;MDR review;patient centered discharge planning;discharge criteria progress assessment Summary of pertinent information: Anticipate discharge home awaiting therapy recommendations. The clinical coordinator will follow and assist with establishment of the plan of care, assist with discharge planning and monitor patient's progress towards meeting discharge criteria. Nanci Gaytan RN, MSN Inpatient Float Clinical coordinator [phone] [employer] surgery. Nanci Gaytan, 12/07/2021 1:19 PM Hattie Adams PA-C - 12/07/2021 8:36 AM CDT NEUROSURGERY PROGRESS NOTE Guillermina Nguyen : 1970 Sex: female Assessment: 51 y.o. female who is otherwise healthy began noticing word finding difficulty 11/29 while on a zoom meeting for work. ??On arrival to hospital, she was found to have a left sided brain mass. MRI showed multifocal brain mass involving left temporal and parietal lobes, left thalamus, left internal capsule and sublentiform region. LP performed on 12/04. Her infectious workup has been negative so far. She underwent craniotomy with open biopsy on 12/05. She remains in the SICU for close monitoring and is neurologically intact with the exception of some reported difficulty with word finding. She transferredout of the ICU 12/06. Active Hospital Problems Diagnosis ??? Focal seizure () ??? Brain mass Plan: - Serial neuro exams, q4h - Follow-up on biopsy results and rest of infectious work-up - Continue Decadron 4mg q6h - Seizure prophylaxis: keppra 1000 mg BID - Na goal normonatremia - Replace electrolytes as needed - Hgb > 8.0, Plt > 100K, INR < 1.5 - SBP < 140 - PRN labetalol/hydralazine to maintain SBP goals - Daily CBC, BMP, PT/INR - PT/OT as tolerated - Bowel regimen - Pain control - IS q1 hr - DVT: SCDs for DVT prophylaxis - VTE prophylaxis contraindicated at this time - Disposition: pending Plans discussed and imaging reviewed with chief resident, Dr. Clayton Zavala Hattie Adams PA-C, 12/07/2021 8:36 AM Neurosurgery AMAN Subjective: No acute events overnight. Complaining of incisional pain and throat feeling sore. Objective: BP 111/66 (Cuff Location: Right Arm) Pulse 79 Temp 36.3 ??C (97.34 ??F) (Tympanic) Resp 18 Ht 1.664 m (5' 5.5) Wt 94.2 kg (207 lb 10.8 oz) LMP 11/19/2021 (Approximate) Comment: longer period (8 days instead or 2-3) SpO2 95% BMI 34.03 kg/m?? Gen: alert, NAD. Lying in bed. Pulm: no respiratory distress Abd: soft, minimally tender to palpation, nondistended. Extrem: warm, well-perfused, no edema. Skin: no rashes, lesions. Incision c/d/i Neuro: Head: incision is dry and without erythema Mental status: Alert, awake. Oriented to self, date, and place. No difficulty with word finding appreciated. Cranial Nerves: II-XII fully intact Motor: Follows commands x4 extremities, 5/5 inspector printed circuit boards strength and plantar/dorsiflexion bilaterally?? Sensory: Sensation intact in all 4 extremities LABS: BMP Lab Results Component Value Date/Time [...] 12/06/2021 0525 PLT 301 12/06/2021 0525 RADIOLOGY: Most recent imaging was reviewed with the neurosurgery team Darinel Dunlap MD - 12/07/2021 12:00 [place] [address] [facility]#: [id number] PATIENT: GUILLERMINA KELSEY : 1970 DATE DICTATED: 12/07/2021 SURGERY STAFF DAILY PROGRESS NOTE DATE OF SERVICE: 12/07/2021 I saw and evaluated the patient. I discussed management with residents, MACHINE PRINTER HOSE, and PAs on the Neurosurgery team and agree with documented findings and plan. Ms. Kelsey is being discharged home today. Her speech seems slightly better on rounds this afternoon. I had a long discussion with her and her mother. We discussed appropriate restrictions and wound care, and she will follow up with the neurosurgery clinic for suture removal in 10 days. We will call her earlier if the pathology comes back. All of their questions were answered. They are well informed. Darinel Dunlap MD Staff Physician Surgery Service Received in Creative Manager: 12/07/2021 17:08:12 M: /[id number] WG/MODL Jimena Allison PA-C - 12/06/2021 5:02 AM CDT NEUROSURGERY PROGRESS NOTE Guillermina Kelsey : 1970 Sex: female Assessment: 51 y.o. female who is otherwise healthy began noticing word finding difficulty 11/29 while on a zoom meeting for work. ??On arrival to hospital, she was found to have a left sided brain mass. MRI showed multifocal brain mass involving left temporal and parietal lobes, left thalamus, left internal capsule and sublentiform region. LP performed on 12/04. Her infectious workup has been negative so far. She underwent craniotomy with open biopsy on 12/05. She remains in the SICU for close monitoring and is neurologically intact with the exception of some reported difficulty with word finding. She is ready for floor status. Active Hospital Problems Diagnosis ??? Focal seizure () ??? Brain mass Plan: - Serial neuro exams, q4h - Follow-up on biopsy results and rest of infectious work-up - Continue Decadron 4mg q6h - Seizure prophylaxis: keppra 1000 mg BID - Na goal normonatremia - Replace electrolytes as needed - Hgb > 8.0, Plt > 100K, INR < 1.5 - SBP < 140 - PRN labetalol/hydralazine to maintain SBP goals - Daily CBC, BMP, PT/INR - PT/OT as tolerated - Bowel regimen - Pain control - IS q1 hr - DVT: SCDs for DVT prophylaxis - VTE prophylaxis contraindicated at this time - Disposition: STN 2 or 3 Plans discussed and imaging reviewed with chief resident, Dr. Clayton Zavala Jimena Allison PA-C, 12/05/2021 9:09 PM Neurosurgery AMAN Subjective: No acute events overnight. Complaining of incisional pain and throat feeling sore. Objective: BP 129/70 Pulse 66 Temp 36.6 ??C (97.9 ??F) (Oral) Resp 16 Ht 1.664 m (5' 5.5) Wt 94.2 kg (207 lb 10.8 oz) LMP 11/19/2021 (Approximate) Comment: longer period (8 days instead or 2-3) SpO2 94% BMI 34.03 kg/m?? Gen: alert, NAD. Lying in bed. Pulm: no respiratory distress Abd: soft, minimally tender to palpation, nondistended. Extrem: warm, well-perfused, no edema. Skin: no rashes, lesions. Incision c/d/i Neuro: Mental status: Alert, awake. Oriented to self, date, and place. No difficulty with word finding appreciated. Cranial Nerves: II-XII fully intact Motor: Follows commands x4 extremities, 5/5 inspector printed circuit boards strength and plantar/dorsiflexion bilaterally?? Sensory: Sensation intact in all 4 extremities LABS: BMP Lab Results Component Value Date/Time NA 140 12/05/2021 0458 K 3.9 12/05/2021 0458 CHLORIDE 107 12/05/2021 0458 CO2 27 12/05/2021 0458 GLU 91 12/05/2021 0458 UN 29 (H) 12/05/2021 0458 CR 0.84 12/05/2021 0458 CA 8.7 12/05/2021 0458 CBC Lab Results Component Value Date/Time WBC 7.60 12/05/2021 0458 RBC 3.93 12/05/2021 0458 HGB 11.7 12/05/2021 0458 HCT 36.5 12/05/2021 0458 PLT 266 12/05/2021 0458 RADIOLOGY: Most recent imaging was reviewed with the neurosurgery team Darinel Dunlap MD - 12/06/2021 12:00 [place] [address] [facility]#: [id number] PATIENT: GUILLERMINA KELSEY : 1970 DATE DICTATED: 12/06/2021 SURGERY STAFF DAILY PROGRESS NOTE DATE OF SERVICE: 12/06/2021 I saw and evaluated the patient. I discussed management with residents, MACHINE PRINTER HOSE, and PAs on the Neurosurgery team and agree with documented findings and plan. Ms. Kelsey is sitting up in a chair. She is neurologically intact. Her speech is actually fairly fluent this afternoon. She is on a gradual steroid taper. She has a minimal headache. She has great strength in the right side. Biopsy results are pending. Postoperative CT scan shows the biopsy site. She can probably go home tomorrow. She is on anticonvulsants. Darinel Dunlap MD Staff Physician Surgery Service Received in Creative Manager: 12/06/2021 17:46:16 M: /[id number] WG/MODL Bob Olvera MD - 12/05/2021 5:37 AM CDT NEUROSURGERY PROGRESS NOTE Guillermina Kelsey : 1970 Sex: female Assessment: 51 y.o. female who is otherwise healthy began noticing word finding difficulty 11/29 whileon a zoom meeting for work. Her sxs persisted despite her efforts to overcome them. She then beganto have nausea and vomiting. When her boyfriend came over he noticed the sxs as well and ultimatelybrought her to the hospital. She was found to have a left sided brain mass. She states she had been in her usually, good health prior to 11/29. MRI showing multifocal brain mass involving left temporaland parietal lobes, left thalamus, left internal capsule and sublentiform region. CT CAP negative for malignancy. She was admitted for monitoring and further workup with surgical plan pending. LP performed on 12/04. Her infectious workup has been negative so far Plan: Brain biopsy 12/05 Activity as tolerated Decadron 11/29-12/03 [facility] Neurology consulted - appreciate recs -echo (TTE) - negative -LP (cell count, protein, glucose, oligoclonal bands, IL-2, flow/cytology) - negative to date -Hep B, Hep C, HIV - negative - Please contact the Neurosurgery Resident on-call with questions or new concerns Discussed with Neurosurgery Chief Resident. Bob Olvera DDS [facility] PGY2 Neurosurgery Service Interval 24-hour Events/Subjective: Discussion w/ pt and family last night. Objective: BP 95/62 (Cuff Location: Right Arm) Pulse 55 Temp 36.1 ??C (96.9 ??F) (Oral) Resp 18 Ht 1.664 m (5' 5.5) Wt 94.2 kg (207 lb 10.8 oz) LMP 11/19/2021 (Approximate) Comment: longer period (8 days instead or 2-3) SpO2 95% BMI 34.03 kg/m?? Constitutional: alert, cooperative, and in no distress HENT: atraumatic, no scleral icterus Neck: non-tender Back: non-tender Extremities: Warm, no edema, no gross deformity Neurologic: awake, alert and oriented x 3, CN II-XII intact, follows commands x 4 extremities, 5/5strength in all extremities but reports that she is weaker on the right side prior to admission. Continued difficulty finding words with extended conversations LABS/IMAGING: All new laboratory and/or imaging results were reviewed. Lab Results Component Value Date/Time WBC 7.51 12/01/20218 RBC 3.74 (L) 12/01/202127 HGB 11.2 (L) 12/01/202127 HCT 34.8 12/01/202127 PLT 271 12/01/202127 MCV 93.0 12/01/202127 MCH 29.9 12/01/202127 MCHC 32.2 12/01/202127 RDW 13.8 12/01/202127 MPV 10.9 12/01/202127 Lab Results Component Value Date/Time NA 139 12/01/202127 K 4.3 12/01/202127 CHLORIDE 108 12/01/202127 CO2 21 (L) 12/01/202127 GLU 111 (H) 12/01/202127 UN 10 12/01/202127 CR 0.62 12/01/202127 CA 8.6 12/01/202127 Korin Blanco MD - 12/05/2021 12:00 [place] [address] [facility]#: [id number] PATIENT: GUILLERMINA KELSEY : 1970 DATE DICTATED: 12/05/2021 SURGERY STAFF DAILY PROGRESS NOTE DATE OF SERVICE: 12/05/2021 I saw and evaluated the patient. I discussed management with residents, MACHINE PRINTER HOSE, and PAs on the Neurosurgery team and agree with documented findings and plan. Guillermina did well with her surgery today. Her postop scan looks good. There is just a little bit of hemorrhage in the biopsy site, but basically it looks great. The pathology showed hypercellular tissue. Her exam is the same. She has some word-finding difficulty, but she is awake and alert and she isactually trying to eat dinner with her mother. We will have to see how she does over the next several days and start working on discharge planning. It will take at least a week to get the pathology back. She will be in the ICU tonight and hopefully transferred down to the floor tomorrow. Korin Blanco MD Staff Physician Neurosurgery Service Received in Creative Manager: 12/05/2021 20:29:52 M: /[id number] TB/MODL Bob Olvera MD - 12/04/2021 7:35 AM CDT NEUROSURGERY PROGRESS NOTE Guillermina Kelsey : 1970 Sex: female Assessment: 51 y.o. female who is otherwise healthy began noticing word finding difficulty 11/29 whileon a zoom meeting for work. Her sxs persisted despite her efforts to overcome them. She then beganto have nausea and vomiting. When her boyfriend came over he noticed the sxs as well and ultimatelybrought her to the hospital. She was found to have a left sided brain mass. She states she had been in her usually, good health prior to 11/29. MRI showing multifocal brain mass involving left temporaland parietal lobes, left thalamus, left internal capsule and sublentiform region. CT CAP negative for malignancy. She was admitted for monitoring and further workup with surgical plan pending. LP performed on 12/04 Plan: Activity as tolerated Decadron 11/29-12/03 [facility] Neurology consulted - appreciate recs -echo (TTE) - planned for 12/04 @9am -LP (cell count, protein, glucose, oligoclonal bands, IL-2, flow/cytology) - negative to date -Hep B, Hep C, HIV - negative - Please contact the Neurosurgery Resident on-call with questions or new concerns Discussed with Neurosurgery Chief Resident. Bob Olvera DDS [facility] PGY2 Neurosurgery Service Interval 24-hour Events/Subjective: LP yesterday. Pt denies any new changes Objective: BP 118/75 (Cuff Location: Right Arm) Pulse 48 Temp 36.4 ??C (97.6 ??F) (Oral) Resp 18 Ht1.664 m (5' 5.5) Wt 94.2 kg (207 lb 10.8 oz) LMP 11/19/2021 (Approximate) Comment: longer period (8 days instead or 2-3) SpO2 96% BMI 34.03 kg/m?? Constitutional: alert, cooperative, and in no distress HENT: atraumatic, cranium intact, no scleral injection, external ears normal, nares normal, no nasal drainage Neck: non-tender Back: non-tender Extremities: Warm, no edema, no gross deformity Neurologic: awake, alert and oriented x 3, no difficulty with words, CN II-XII intact, follows commands x 4 extremities, 5/5 strength in all extremities. Continued difficulty finding words LABS/IMAGING: All new laboratory and/or imaging results were reviewed. Lab Results Component Value Date/Time WBC 7.51 12/01/20218 RBC 3.74 (L) 12/01/20218 HGB 11.2 (L) 12/01/20218 HCT 34.8 12/01/20218 PLT 271 12/01/20218 MCV 93.0 12/01/2021 0028 MCH 29.9 12/01/2021 0028 MCHC 32.2 12/01/20218 RDW 13.8 12/01/20218 MPV 10.9 12/01/2021 0028 Lab Results Component Value Date/Time NA 139 12/01/2021 0028 K 4.3 12/01/2021 0028 CHLORIDE 108 12/01/20218 CO2 21 (L) 12/01/20218 GLU 111 (H) 12/01/20218 UN 10 12/01/2021 0028 CR 0.62 12/01/2021 0028 CA 8.6 12/01/2021 0028 Darinel Dunlap MD - 12/04/2021 12:00 [place] [address] [facility]#: [id number] PATIENT: GUILLERMINA KELSEY : 1970 DATE DICTATED: 12/04/2021 SURGERY STAFF DAILY PROGRESS NOTE DATE OF SERVICE: 12/04/2021 I saw and evaluated the patient. I discussed management with residents, MACHINE PRINTER HOSE, and PAs on the Neurosurgery team and agree with documented findings and plan. Ms. Kelsey is a 51-year-old who presented with significant word-finding difficulties. She has a posterior temporal parietal lesion. Of note, there are other associated similar lesions. I had a very long discussion and the whole team was involved, reviewing matters with the patient andher mother and sister. Her mother had many technical questions in regard to the biopsy, which I hope I answered sufficiently. We are going to move forward with an open biopsy in the next day or two.Hopefully it can happen tomorrow. We feel that an open biopsy would be safer given its proximity tothe surface. We did discuss the risks of hemorrhage, which should hopefully be slightly lesser thana stereotactic biopsy. We are going to use stereotactic guidance for the biopsy. Amongst the risksdiscussed include, but not limited to, hemorrhage, seizures, need for re-biopsy, failure to gain an a nswer, complications of general anesthesia and positioning, worsening neurologic deficit, etc. Theydemonstrated very good understanding and are ready to proceed. Her speech issues are quite significant and obvious when trying to carry out any sort of discussion. Darinel Dunlap MD Staff Physician Surgery Service Received in Creative Manager: 12/04/2021 19:10:08 M: /[id number] WG/MODL Nic Vega MD - 12/03/2021 9:14 AM CDT NEUROLOGY CONSULT PROGRESS NOTE - PGY 1 Guillermina Kelsey : 1970 Sex: female Overnight Events: No acute events overnight. Subjective: Patient states she is not feeling better today, denies sinking feeling she describes experiencing prior to probable seizure. She is aware she continues to have word finding and naming difficulties, no other concerns at this time. Review of Systems: 10 points ROS reviewed and reported negative except for dictated items. General Physical Examination BP 130/83 Pulse 46 Temp 35.7 ??C (96.3 ??F) (Oral) Resp 18 Ht 1.664 m (5' 5.5) Wt 94.2 kg (207 lb 10.8 oz) LMP 11/19/2021 (Approximate) Comment: longer period (8 days instead or 2-3) SpO2 96% BMI 34.03 kg/m?? General: patient lying in bed without any acute distress Eyes: no icterus and no conjunctival injection HENT: normocephalic/atraumatic Skin: multiple bruises present Neurological Examination Mental Status Exam: awake, oriented to person, place and time, follows simple commands. Guillermina had some word finding difficulty during encounter, could not remember dog or goat and instead would describe the animal. She also reports being able to picture images but not come up with the words. Repetition was intact, and patient was able to identify a pen and shoe. Cranial Nerves: PERRL, EOMs intact, no nystagmus, visual garcia full, facial movements symmetric, facial sensation intact to pinprick, hearing intact to conversation, normal phonation, midline tongue protrusion. Pt has self reported hx of tinnitus since 2013. Motor: no drift in bilateral UEs or LEs, Normal tone throughout, shoulder abduction 5/5 bilaterally,finger inspector printed circuit boards 5/5 bilaterally, knee extension/flexion 5/5 bilat, plantarflexion 5/5 bilat, dorsiflexion 5/5 bilat. Sensory: sensation intact to pinprick on arms and legs bilaterally Coordination: [id number] intact bilaterally Reflexes: plantars downgoing bilaterally Gait: deferred Labs and imaging reviewed by me: 12/03: Negative HIV, negative hepatitis B surface antibody, negative hepatitis C antibody, negative hepatitis B surface antigen. Assessment and Plan Guillermina Kelsey is a 51 y.o. female with past medical history of hypertension and benign thyroid nodules presenting from [facility] for further evaluation of new brain mass seen on head imaging.Precipitating event prior to hospitalization included patient experiencing word finding difficulty this was followed by loss of consciousness and patient waking up to vomit on her clothing and bruisingon her person. On examination today patient continues to have word finding difficulties although per chart review this seems to be improving. During conversation Guillermina occasionally made mistakes usingpronouns, she also reports return things but not being able to come up with the words. No focal neurologic deficits noted otherwise on examination. She denies any history of seizures in the past, also denies any recent illness or history of diabetes. She has no recent drug or alcohol use as well therefore at this time appears mass is likely cause of the seizure like episode. In agreement with cont inuation of Keppra and Decadron at this time. 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 Guillermina was also noted to have a granuloma in the spleen seen on CT, therefore recommend TTE to rule out extrapulmonary sarcoid possibility on 12/02. Plan is for CT and LP to be completed today, will await results andcontinue to follow. Agree with neurosurgery plan for brain biopsy for further diagnostic evaluation. Also recommend QuantiFERON as focal tuberculomas can be a cause of seizure. Impression: -Focal seizure, likely secondary to brain mass -Brain mass Recs: -QuantiFERON -Continue Keppra and Decadron -Brain biopsy per neurosurgery -Spinal tap scheduled today Patient discussed with the attending, Dr. Ramirez. Deb Douglas MD 12/03/2021 09:15 Vascular Neurology Attending Attestation I saw and evaluated the patient Today, 12/03/2021. I agree with the history, examination and plan ofcare documented on the resident's note unless otherwise specified. Available tests were independently reviewed by me. Nic Ramirez MD Vascular Neurologist / Neurohospitalist 12/03/2021, 15:11 Bob Olvera MD - 12/03/2021 7:53 AM CDT NEUROSURGERY PROGRESS NOTE Guillermina Colling : 1970 Sex: female Assessment: 51 y.o. female who is otherwise healthy began noticing word finding difficulty 11/29 whileon a zoom meeting for work. Her sxs persisted despite her efforts to overcome them. She then beganto have nausea and vomiting. When her boyfriend came over he noticed the sxs as well and ultimatelybrought her to the hospital. She was found to have a left sided brain mass. She states she had been un her usually, good health prior to 11/29. MRI showing multifocal brain mass involving left temporaland parietal lobes, left thalamus, left internal capsule and sublentiform region. CT CAP negative for malignancy. She was admitted for monitoring and further workup with surgical plan pending. Plan: Pre op Labs Activity as tolerated Lesly Kim Neurology consulted - appreciate recs -echo (TTE) -LP (cell count, protein, glucose, oligoclonal bands, IL-2, flow/cytology) -Hep B, Hep C, HIV - Please contact the Neurosurgery Resident on-call with questions or new concerns Discussed with Neurosurgery Chief Resident. Bob Olvera DDS [facility] PGY2 Neurosurgery Service Interval 24-hour Events/Subjective: No acute events overnight. Seen by neurology yesterday. Endorsing periodic mild headache Objective: BP 130/83 (Cuff Location: Right Arm) Pulse 46 Temp 35.7 ??C (96.3 ??F) (Oral) Resp 18 Ht1.664 m (5' 5.5) Wt 94.2 kg (207 lb 10.8 oz) LMP 11/19/2021 (Approximate) Comment: longer period (8 days instead or 2-3) SpO2 96% BMI 34.03 kg/m?? Constitutional: alert, cooperative, and in no distress HENT: atraumatic, cranium intact, no scleral injection, external ears normal, nares normal, no nasal drainage Neck: non-tender Back: non-tender Extremities: Warm, no edema, no gross deformity Neurologic: awake, alert and oriented x 3, no difficulty with words, CN II-XII intact, follows commands x 4 extremities, 5/5 strength in all extremities. Difficulty finding the word hospital LABS/IMAGING: All new laboratory and/or imaging results were reviewed. Lab Results Component Value Date/Time WBC 7.51 12/01/202127 RBC 3.74 (L) 12/01/202127 HGB 11.2 (L) 12/01/202127 HCT 34.8 12/01/202127 PLT 271 12/01/202127 MCV 93.0 12/01/202127 MCH 29.9 12/01/202127 MCHC 32.2 12/01/202127 RDW 13.8 12/01/20218 MPV 10.9 12/01/2021 0028 Lab Results Component Value Date/Time NA 139 12/01/20218 K 4.3 12/01/2021 0028 CHLORIDE 108 12/01/2021 0028 CO2 21 (L) 12/01/20218 GLU 111 (H) 12/01/20218 UN 10 12/01/20218 CR 0.62 12/01/202127 CA 8.6 12/01/202127 Korin Blanco MD - 12/03/2021 12:00 [place] [address] [facility]#: [id number] PATIENT: GUILLERMINA KELSEY : 1970 DATE DICTATED: 12/03/2021 SURGERY STAFF DAILY PROGRESS NOTE DATE OF SERVICE: 12/03/2021 I saw and evaluated the patient. I discussed management with residents, MACHINE PRINTER HOSE, and PAs on the Neurosurgery team and agree with documented findings and plan. 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 We have Neurology see her and they agree that it is a little bit unusual for a primary tumor. They are wondering about lymphoma versus neurosarcoid. We are going to get an LP today and send her for a number of different tests that may help us sort all this out. Our neurology colleagues are very curious about neurosarcoid. They ordered a TTE to look for extra pulmonary sarcoid. We are also sending CSF, like I said today. If all this time comes up negative, she may end up needing a craniotomy for tumor and partial resection and biopsy. She is doing well neurologically. The patient seems to be doing well and further decisions will be made as we get our test results. Korin Blanco MD Staff Physician Neurosurgery Service Received in Creative Manager: 12/03/2021 18:01:00 M: /[id number] TB/MODL Bob Olvera MD - 12/02/2021 5:58 AM CDT NEUROSURGERY PROGRESS NOTE Guillermina Kelsey : 1970 Sex: female Assessment: 51 y.o. female who is otherwise healthy began noticing word finding difficulty 11/29 whileon a zoom meeting for work. Her sxs persisted despite her efforts to overcome them. She then beganto have nausea and vomiting. When her boyfriend came over he noticed the sxs as well and ultimatelybrought her to the hospital. She was found to have a left sided brain mass. She states she had been un her usually, good health prior to 11/29. MRI showing multifocal brain mass involving left temporaland parietal lobes, left thalamus, left internal capsule and sublentiform region. CT CAP negative for malignancy. She was admitted for monitoring and further workup with surgical plan pending. Plan: CT CAP - negative Pre op Labs Activity as tolerated Neurology consulted - appreciate recs - Please contact the Neurosurgery Resident on-call with questions or new concerns Discussed with Neurosurgery Chief Resident. Bob Olvera DDS [facility] PGY2 Neurosurgery Service Interval 24-hour Events/Subjective: No acute events overnight. She reports continued difficulty finding words for some familiar objects, but is able to compensate very well unless asked to identify objects. Endorsing periodic mild headache Objective: BP 109/65 (Cuff Location: Right Arm) Pulse 49 Temp 36.1 ??C (97 ??F) (Oral) Resp 18 Ht 1.664 m (5' 5.5) Wt 94.2 kg (207 lb 10.8 oz) LMP 11/19/2021 (Approximate) Comment: longer period (8 days instead or 2-3) SpO2 94% BMI 34.03 kg/m?? Constitutional: alert, cooperative, and in no distress HENT: atraumatic, cranium intact, no scleral injection, external ears normal, nares normal, no nasal drainage Neck: non-tender Back: non-tender Extremities: Warm, no edema, no gross deformity Neurologic: awake, alert and oriented x 3, no difficulty with words, EOMI, PERRL at 3mm and briskly reactive, CN II-XII intact, follows commands x 4 extremities, strength 5/5 b/l wrist flex/ext, handgrip, elbow flex/ext, shoulder abduction, hip flexion, knee flex/ext, ankle plantar/dorsiflexion, EHL, no pronator drift, finger to nose intact, no clonus. Sensation to light touch intact. LABS/IMAGING: All new laboratory and/or imaging results were reviewed. Lab Results Component Value Date/Time WBC 7.51 12/01/202127 RBC 3.74 (L) 12/01/202127 HGB 11.2 (L) 12/01/202127 HCT 34.8 12/01/202127 PLT 271 12/01/202127 MCV 93.0 12/01/202127 MCH 29.9 12/01/202127 MCHC 32.2 12/01/202127 RDW 13.8 12/01/202127 MPV 10.9 12/01/202127 Lab Results Component Value Date/Time NA 139 12/01/202127 K 4.3 12/01/202127 CHLORIDE 108 12/01/202127 CO2 21 (L) 12/01/202127 GLU 111 (H) 12/01/202127 UN 10 12/01/202127 CR 0.62 12/01/202127 CA 8.6 12/01/202127 Bob Olvera MD - 12/01/2021 7:46 AM CDT NEUROSURGERY PROGRESS NOTE Guillermina Kelsey : 1970 Sex: female Assessment: 51 y.o. female who is otherwise healthy began noticing word finding difficulty 11/29 whileon a zoom meeting for work. Her sxs persisted despite her efforts to overcome them. She then beganto have nausea and vomiting. When her boyfriend came over he noticed the sxs as well and ultimatelybrought her to the hospital. She was found to have a left sided brain mass. She states she had been un her usually, good health prior to 11/29. MRI showing brain mass involving left temporal and parietal lobes, left thalamus, left internal capsul and sublentiform region. She was admitted for monitoring and further workup with surgical plan pending. Plan: F/u MRI official read CT CAP - negative Pre op Labs Activity as tolerated Further workup - CSF labs - Consult neurology to rule out infectious source/recs on CSF labs - Please contact the Neurosurgery Resident on-call with questions or new concerns Discussed with Neurosurgery Chief Resident. Bob Olvera DDS [facility] PGY2 Neurosurgery Service Interval 24-hour Events/Subjective: No acute events overnight. Pt denies any headaches difficulty with words, n/v/f/c. Objective: BP 105/68 (Cuff Location: Right Arm) Pulse 67 Temp 36.1 ??C (97 ??F) (Tympanic) Resp 18 Ht 1.664 m (5' 5.5) Wt 94.2 kg (207 lb 10.8 oz) LMP 11/19/2021 (Approximate) Comment: longer period (8 days instead or 2-3) SpO2 95% BMI 34.03 kg/m?? Constitutional: alert, cooperative, and in no distress HENT: atraumatic, cranium intact, no scleral injection, external ears normal, nares normal, no nasal drainage Neck: non-tender Back: non-tender Extremities: Warm, no edema, no gross deformity Neurologic: awake, alert and oriented x 3, no difficulty with words, EOMI, PERRL at 3mm and briskly reactive, CN II-XII intact, follows commands x 4 extremities, strength 5/5 b/l wrist flex/ext, handgrip, elbow flex/ext, shoulder abduction, hip flexion, knee flex/ext, ankle plantar/dorsiflexion, EHL, no pronator drift, finger to nose intact, no clonus. Sensation to light touch intact. LABS/IMAGING: All new laboratory and/or imaging results were reviewed. MRI 11/30/21: Impression: ?? Multiple nonenhancing T1 hypointense T2 hyperintense lesions centered involving the left temporal and parietal lobes, left thalamus, left internal capsule and sublentiform region, and possibly also the left insular white matter. Overall, the appearance is most suggestive of a glioma; inflammatory or infectious processes are felt much less likely. Lab Results Component Value Date/Time WBC 7.51 12/01/2021 0028 RBC 3.74 (L) 12/01/202127 HGB 11.2 (L) 12/01/202127 HCT 34.8 12/01/202127 PLT 271 12/01/202127 MCV 93.0 12/01/202127 MCH 29.9 12/01/202127 MCHC 32.2 12/01/202127 RDW 13.8 12/01/202127 MPV 10.9 12/01/202127 Lab Results Component Value Date/Time NA 139 12/01/202127 K 4.3 12/01/202127 CHLORIDE 108 12/01/202127 CO2 21 (L) 12/01/202127 GLU 111 (H) 12/01/202127 UN 10 12/01/202127 CR 0.62 12/01/202127 CA 8.6 12/01/202127 Korin Blanco MD - 12/01/2021 12:00 [place] [address] [facility]#: [id number] PATIENT: GUILLERMINA KELSEY : 1970 DATE DICTATED: 12/01/2021 SURGERY STAFF DAILY PROGRESS NOTE DATE OF SERVICE: 12/01/2021 I saw and evaluated the patient. I discussed management with residents, MACHINE PRINTER HOSE, and PAs on the Neurosurgery team and agree with documented findings and plan. Guillermina is a 51-year-old woman who developed word-finding difficulty Th evening. She was evaluated at her local hospital, and she had a left side brain mass identified on MRI scan and CT. She has a history of thyroid nodules. Her mother had breast cancer and is positive for a specific gene. I do not know those details. On exam, the patient has word-finding difficulty at times, but she is able to name objects presentedto her. She otherwise is neurologically intact including her motor sensory system. Her MRI scan is interesting. She has a contrast nonenhancing lesion in her far posterior temporal inferior parietal lobe. I think it is posterior to Wernicke area. She also has signal change in the deep posterior thalamus and internal capsule. It is multifocal. As I mentioned, it does not enhance. The differential is wide. Radiologist thinks it is most likely a glioma, although would be very unusual for it to be so multifocal like this. I am wondering whether this could represent some type of encephalitis. We are going to ask our neurology colleagues to weigh in on that. I think that an LP will be indicated to look for specific markers. We will ask our neurologists for their expertise on these matters. The patient may end up needing a brain biopsy. The lesion is not resectable as there are no specific borders and it is multifocal. However, we should be able to get a very safe biopsy in the posterior aspect of the lesion with limited risk to her speech center. We will see what our colleagues say regarding the possibility of this being an encephalitis or other diagnosis and proceed with biopsy if it is indicated. We would do it with Stealth intraoperative guidance. It would be relatively low risk. We will discuss that with the patient further if we do end up proceeding with a biopsy. The patient is very stable now. I think her speech is a little bit better with the Decadron that westart her on last night. She is also on Keppra. We are going to do a CT of her chest, abdomen, andpelvis to make sure there are no other surprises. We will follow her closely. Please see resident consult note dated 11/30. I personally reviewed the history, exam, images and plan and agree with note as written. Korin Blanco MD Staff Physician Neurosurgery Service Received in Creative Manager: 12/01/2021 10:02:46 M: /[id number] TB/MODL Susana Taylor RN - 11/30/2021 8:10 PM CDT Upon admission a Four Eyes Skin Inspection was completed with Starla Ferro RN(Name & Title). Skin injuries were not present, only bruise on inner right elbow, and bump on left forehead. Will continue to use Carrington Scale and skin bundle interventions as appropriate. Susana Taylor RN, 11/30/2021 8:11 PM documented in this encounter H&P Notes Hattie Adams PA-C - 11/30/2021 6:36 PM CDT NEUROSURGERY H&P - AMAN Guillermina Kelsey : 1970 Sex: female Assessment: 51 y.o. female who is otherwise healthy began noticing word finding difficulty yesterday afternoon while on a zoom meeting for work. Her sxs persisted despite her efforts to overcome them. She then began to have nausea and vomiting. When her boyfriend came over he noticed the sxs as well and ultimately brought her to the hospital. She was found to have a left sided brain mass. She states she had been un her usually, good health prior to yesterday evening. She denies headache, vision changes, kirstin or balance issues, weakness. Recommendations: MRI head w-w/o contrast - Stealth protocol CT CAP Pre op Labs OR Friday for biopsy Activity as tolerated Regular diet - NPO Friday at Midnight CHIEF COMPLAINT: Brain mass HISTORY OF PRESENT ILLNESS: Guillermina Kelsey is a 51 y.o. female presenting with word finding difficulty REVIEW OF SYSTEMS: 10 pt review of systems negative except as noted in HPI PMH: No past medical history on file. PSH: No past surgical history on file. Medications: No current facility-administered medications on file prior to encounter. No current outpatient medications on file prior to encounter. Allergies: No Known Drug Allergies FAMILY HISTORY: No family history on file. SOCIAL HISTORY: Occupational History ??? Not on file Tobacco Use ??? Smoking status: Not on file ??? Smokeless tobacco: Not on file Substance and Sexual Activity ??? Alcohol use: Not on file ??? Drug use: Not on file ??? Sexual activity: Not on file Social History Narrative ??? Not on file PHYSICAL EXAMINATION: Vital Signs: There were no vitals taken for this visit. Constitutional: alert, cooperative, and in no distress HENT: atraumatic, cranium intact, no scleral injection, external ears normal, nares normal, no nasal drainage Neck: non-tender Back: non-tender Extremities: Warm, no edema, no gross deformity Neurologic: awake, alert and oriented x 3, word finding difficulty that improved with ongoing conversation, EOMI, PERRL at 3mm and briskly reactive, CN II-XII intact, follows commands x 4 extremities, strength 5/5 b/l wrist flex/ext, hand inspector printed circuit boards, elbow flex/ext, shoulder abduction, hip flexion, knee fl ex/ext, ankle plantar/dorsiflexion, EHL, no pronator drift, finger to nose intact, no clonus. Sensation to light touch intact. 2+ and symmetric reflexes in bilateral triceps, brachioradialis, patellaand achilles. RESULTS: Lab results: No results found for: WBC, RBC, HGB, HCT, PLT No results found for: NA, K, CHLORIDE, CO2, GLU, UN, CR, CA No results found for: INR Imaging results: CT CHEST/ABD/PELVIS W/IV CONT (Results Pending) MR BRAIN W/O + WITH CONTRAST (Results Pending) Hattie Shelton PA-C, 11/30/2021 6:36 PM Neurosurgery Pager [phone] or [employer] documented in this encounter Procedure Notes Chandan Chu MD - 12/03/2021 3:06 PM CDTAssociated Order(s): Lumbar Puncture Lumbar Puncture Date/Time: 12/03/2021 3:06 PM Performed by: Chandan Chu MD Authorized by: Chandan Chu MD Consent: Verbal consent obtained. Written consent obtained. Risks and benefits: risks, benefits and alternatives were discussed Consent given by: patient Patient understanding: patient states understanding of the procedure being performed Patient consent: the patient's understanding of the procedure matches consent given Procedure consent: procedure consent matches procedure scheduled Relevant documents: relevant documents present and verified Test results: test results available and properly labeled Site marked: the operative site was marked Imaging studies: imaging studies available Patient identity confirmed: verbally with patient and provided demographic data Time out: Immediately prior to procedure a time out was called to verify the correct patient, procedure, equipment, sales support manager and site/side marked as required. Anesthesia: local infiltration Anesthesia: Local Anesthetic: lidocaine 1% without epinephrine Anesthetic total: 3 mL Sedation: Patient sedated: no Preparation: Patient was prepped and draped in the usual sterile fashion. Patient's position: left lateral decubitus Needle gauge: 22 Needle type: spinal needle - Quincke tip Number of attempts: 1 Opening pressure: 19 cm H2O Fluid appearance: clear Tubes of fluid: 4 Total volume: 18 ml Post-procedure: site cleaned Patient tolerance: Patient tolerated the procedure well with no immediate complications Comments: L2-3 level puncture, left paramedian. Chandan Chu MD, 12/03/2021 3:06 PM documented in this encounter Consult Notes Hattie Mathis, PharmD - 12/07/2021 4:17 PM CDTAssociated Order(s): DISCHARGE MED REC FINAL REVIEW BY PHARMACY PHARMACY DISCHARGE NOTE Guillermina Kelsey : 1970 Sex: female Pharmacy service was consulted for review of patient's discharge medications. Planned discharge medications are: Medication List Medications Indications DC Notes acetaminophen 325 mg tablet Take 2 tablets (650 mg) by mouth every 4 hours as needed for Mild Pain. New dexamethasone 4 mg Tabs Commonly known as: DECADRON Take one tablet (4mg) by mouth per the schedule below 4/16: Take one tablet every 6 hours 417: Take one tablet every 6 hours 18: Take one tablet every 6 hours 12/11: Take one tabet every 8 hours 20: Take one tabet every 8 hours 12/13: Take one tabet every 8 hours 12/14: Take one tablet every 12 hours 12/15: Take one tablet every 12 hours 12/16: Take one tablet every 12 hours 12/17: Take one tablet daily 12/18: Take one tablet daily 12/19: Take one tablet daily New levETIRAcetam 1000 mg Tabs Commonly known as: KEPPRA Take 1 tablet (1,000 mg) by mouth twice daily. New oxyCODONE 5 mg tablet Commonly known as: ROXICODONE Take 1-2 tablets (5-10 mg) by mouth every 6 hours as needed (Severe pain). New; #20 tablets on discharge 27-1 mg Tabs Take 1 tablet by mouth daily. SHREDDER PICKER med Assessment: Pertinent points to note: No changes to SHREDDER PICKER medications. I have reviewed the patient's medications for discharge and have discussed the necessary changes with the provider. Changes have been made and medication list updated and complete. Please page with any questions. Hattie Mathis PharmD 12/07/2021 16:17 For questions regarding this note, please contact pharmacist on service at [facility] ([facility]) or [phone]. If no response within needed timeframe, please contact central pharmacy via phone at [phone]. Jacquie Link MD - 12/05/2021 5:16 PM CDT SICU CONSULT - Martha Kelsey : 1970 Sex: female Summary: 51 year old female with history of benign thyroid nodules, HTN, who presented with word-finding difficulties on 11/30. She was found to have left-sided temporal, parietal, thalamic, and internal capsularbrain lesions suspicious for tumor versus inflammatory or infectious process. She underwent open biopsy on 12/05 and was admitted to the SICU post-operatively for close neuromonitoring. Assessment and Plan: Neuro: Assessment: Presented with word finding difficulty and nausea/vomiting, found to have multiple left-sided intracranial lesions. Neurology was consulted, felt that word-finding was related to seizure. Underwent brain biopsy with neurosurgery on 12/05. Plan: Frequent neurochecks Keppra BID 1000 mg, likely life-long Tylenol, ibuprofen, oxycodone PRN for pain Decadron q6H IV Cardiac: Assessment: Hemodynamically normal. Documented history of HTN. Plan: Blood pressure goal: SBP <140 Utilize PRNs as needed to maintain goal Pulmonary: Assessment: Breathing on room air, adequate saturations Plan: Monitor saturations Gastrointestinal/Nutrition: Assessment: NPO for procedure Plan: Advance diet as tolerated Bowel regimen Electrolytes: Assessment: Lytes WNL prior to surgery Plan: Monitor electrolytes. Replenish and recheck as needed. Renal: Assessment: Adequate UOP, baseline Cr WNL Plan: Monitor Cr and U/O. Maintain U/O with MIVFs. Endocrine: Assessment: At risk for stress-induced hyperglycemia. Plan: Monitor FSBGs, supplementary insulin (sliding scale vs. infusion), if needed. Hematologic: Assessment: Hemoglobin, platelets WNL. Plan: Follow Hgb and coags, transfuse as necessary. Infectious Disease: Assessment: Intracranial lesions possibly related to infectious process, although work-up has been negative (TTE, HP, Hep and HIV serologies). Plan: Monitor Daily WBC Prophylaxis: SCDs for DVT prophylaxis, chemical contraindicated due to recent surgery CHIEF COMPLAINT: S/p craniotomy for biopsy HISTORY OF PRESENT ILLNESS: Guillermina Kelsey is a 51 y.o. female who presented to the ED on 11/30 with complaint of word-finding difficulties, which persisted. She additionally progressed to nausea and vomiting. Her boyfriend brought her in when he similarly noticed the issues. MRI demonstrated multiple left-sided brain lesions. She was admitted for ongoing work-up, including infectious and inflammatorycauses; this has been negative. She elected to undergo biopsy with neurosurgery on 12/05. PAST MEDICAL/SURGICAL HISTORY: Benign thyroid nodule HTN Tonsillectomy CURRENT HEALTH STATUS Medications: Medications Prior to Admission Medication Sig Dispense Refill ??? 27-1 mg oral TABS Take 1 tablet by mouth daily. Allergies and drug reactions: Adhesive tape PSYCHOSOCIAL HISTORY Marital/habits/occupational/sexual history: Former smoker Daily glass of wine FAMILY HISTORY: Breast cancer - mother, maternal aunt Heart disease, HTN, father REVIEW OF SYSTEMS: Pertinent positives included in HPI. PHYSICAL EXAMINATION: Vital Signs: BP 133/75 Pulse 65 Temp 37 ??C (98.6 ??F) (Temporal) Resp 11 Ht 1.664 m (5' 5.5) Wt 94.2 kg (207 lb 10.8 oz) LMP 11/19/2021 (Approximate) Comment: longer period (8 days instead or 2-3) SpO2 93% BMI 34.03 kg/m?? Neuro: Somnolent, but oriented. Moves all extremities to command. Head, eyes, ears, nose, throat: Crani incision covered with dressing, c/d/i. Neck: Normal Cardiovascular: Regular rate and rhythm Chest: Breath sounds clear bilaterally Abdomen: Soft, nontender, nondistended Extremities: Normal : Webster in place, urine is clear Pulses: Intact in all four extremities Skin: Normal, no breakdown REVIEW OF LABORATORY, PATHOLOGY, AND RADIOLOGY DATA: Lab Results Component Value Date/Time NA 140 12/05/2021 0458 K 3.9 12/05/2021 0458 CHLORIDE 107 12/05/2021 0458 CO2 27 12/05/2021 0458 GLU 91 12/05/2021 0458 UN 29 (H) 12/05/2021 0458 CR 0.84 12/05/2021 0458 CA 8.7 12/05/2021 0458 Lab Results Component Value Date/Time WBC 7.60 12/05/2021 0458 RBC 3.93 12/05/2021 0458 HGB 11.7 12/05/2021 0458 HCT 36.5 12/05/2021 0458 PLT 266 12/05/2021 0458 Labs and imaging reviewed. Jacquie Link MD, 12/05/2021 5:35 PM Surgery PGY3 Nic Vega MD - 12/04/2021 7:22 AM CDT NEUROLOGY CONSULT PROGRESS NOTE Guillermina Kelsey : 1970 Sex: female Date of Service: 12/04/2021 SUBJECTIVE: Underwent LP yesterday 12/03. No acute events overnight. This morning she does endorse a mild headache. Not sure if worse with position change. No N/V/photophobia/pulsitile tinnitus/worsening with valsalva. 4pt ROS negative unless specified above OBJECTIVE: PHYSICAL EXAMINATION: Vital Signs: BP 118/75 (Cuff Location: Right Arm) Pulse 48 Temp 36.4 ??C (97.6 ??F) (Oral) Resp 18 Ht1.664 m (5' 5.5) Wt 94.2 kg (207 lb 10.8 oz) LMP 11/19/2021 (Approximate) Comment: longer period (8 days instead or 2-3) SpO2 96% BMI 34.03 kg/m?? GEN: Alert, lying in bed comfortably, in no acute distress. HEENT: Atraumatic/normocephalic. Neck supple. CVS: appears warm and well-perfused. CHEST: No signs of respiratory distress, on room air Neuro: Awake, alert, oriented and interacting appropriately. No difficulty following commands. EOM intact, no gaze preference or deviation. No facial asymmetry, no nasolabial fold flattening. Intact hearing to conversational speech. Right arm with mild pronation without drift. No satelliting. Rapid alternating movements and fine motor movements intact bilaterally. On extended conversation today expressive and anomic aphasia appeared slightly improved from previous. Able to name common objects and body parts briskly. No dysarthria. Able to read written sentence and repeat. Writing remains intact. Light touch sensation is grossly symmetric and intact (slight decrease in RLE that is chronic). Summary of Pertinent Investigations: All relevant labs and imaging reviewed in EMR. HIV NR Hep B surface Ab reactive Hep B surface antigen NR Hep C Ab NR Quant gold pending LP 12/03/21 Glucose 82 Protein 34 RBC <1000 Nuc Cells 1 ASSESSMENT AND RECOMMENDATIONS: Ms. Guillermina Kelsey is a 51 y.o. right-handed woman with a past medical history of HTN and thyroid nodules (s/p biopsy in 2010) who presented as a transfer 11/30/21 for concern for new diagnosis of brain mass. She presented to care after an episode of abnormal sensation, word finding difficulty, with subsequent loss of consciousness (injury and emesis). Based on description this event is very suspicious for seizure. She was started on keppra and decadron and transferred to [facility] for neurosurgical evaluation. #left temporal multifocal infiltrative brain mass #aphasia Brain MRI is concerning for left temporal-parietal intra-axial subcortical T2 FLAIR hyperintense lesion with smaller focal lesions in the left insula, left thalamus, left internal capsule, medial left temporal lobe. Lesions are not diffusion restricting, and are nonenhancing on T1 with contrast. Imaging does appear most consistent with infiltrating mass lesion, consistent with tumor such as glioma-which can be multifocal. 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 Lumbar puncture initial studies well within normal, no concerning hypoglycorrhachia, pleocytosis, or increased protein. Will follow other pending testing (bands, fl ow/cytology, quant gold, send out IL-2R and serum/CSF autoimmune and encephalitis evaluation) as well as echocardiogram final read, however would suspect that definitive diagnosis will come from tissueand would not delay biopsy/resection for these results. #seizure -continue keppra 1000mg BID (likely lifelong) -we discussed driving precautions and seizure precautions today, as well as common triggers for breakthrough seizures (including missed doses of medications, poor sleep, stress). 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 Ramirez. Thank you for involving neurology in the care of this patient. Please do not hesitate to call with questions/concerns. General neurology pager [phone]. We will sign off, please page the team with new concerns or if laboratory values returnabnormal. Cherelle Alvarez MD Neurology PGY-3 Seizure Safety: Per [place] regulations individuals are prohibited from operating a motor vehicle within 3 months following any seizure or other episode with sudden unconsciousness or inability to sit up, and that are required to report any future such seizure to the DMV within 30 days after the event. I also recommend that patients review all other activities, and avoid any activities that might lead to self-injury or injury of others, within 3 months following any seizure with impaired awareness or impaired motor control. Such activities include but are not limited to holding babies or young children at heights from which they might be injured if dropped, bathing infants or young children in situations in which they might drown without continuous interactive care by an adult who is fully capable at all timesduring the bath, operating power cutting or other tools, handling firearms, exposure to heights fromwhich they might fall, exposure to vessels with hot cooking oil or water, and swimming alone. Vascular Neurology Attending Attestation I saw and evaluated the patient on 12/04/[address] Alvarez. I agree with the history, examination and plan of care documented on the resident's note unless otherwise specified. Available tests were independently reviewed by me. In summary, Guillermina Kelsey is a 51 y.o. Nic Ramirez MD Vascular Neurologist / Neurohospitalist 12/05/2021, 14:59 Cherelle Alvarez MD - 12/02/2021 8:00 AM CDTAssociated Order(s): CONSULT TO NEUROLOGY IP NEUROLOGY CONSULT Guillermina Kelsey : 1970 Sex: female The neurology service was asked to see Guillermina Kelsey on 12/02/2021 in consultation at the request of Korin Blanco MD for the evaluation of workup of mass. CHIEF COMPLAINT: Spell of alteration of language and consiousness HISTORY OF PRESENT ILLNESS: Ms. Guillermina Kelsey is a 51 y.o. woman with a past medical history of HTN and thyroid nodules (s/p biopsy in 2010) presenting as a transfer for concern for brain mass. She was reportedly in her usual state of health until afternoon on 11/29/21. She notes that around 5 PM she was on video calls for work when she suddenly had an odd feeling in her head on the inside and the outside she describes feeling as a sinking feeling and that nothing made sense and ev erything felt fuzzy. She notes that she struggled through her 5 to 5:50 PM call, reportedly understanding what other people were saying in the meeting but having extreme difficulty producing words when she meant to speak. She describes extra words coming out as well as the wrong words. At the endof that meeting she turned the camera microphone off and cried out of frustration and anxiety. For the next meeting for work she had from 6 to 7 PM she kept her camera and microphone off. She endorsed trying to repeat sentences that she heard other people saying out loud to herself to see if she wasable to do that, per report she was unable to repeat consistently. She endorses losing a period of time, waking up confused and noting vomit on her person. At 830 she got up to let her significant other into her home and was reportedly still confused. Significant other (Erich) became concerned as she was reportedly giving one- word answers and acting abnormally and brought her into a local emergency department ([facility]) that night. She was treated with keppra and steroids and subsequently transferred to [facility] for imaging findings of brain mass. Per Ms. Nguyen she had not noticed any word finding difficulties prior to this initial event. She does not endorse any difficulties at work or with relationships, people noticing differences in language or any perceived difficulty. She does endorse that she has been having headache for few months. She describes a dull headache in the back of her head that had been responsive to [id number] medications. Does not endorse that the headache woke her from sleep, had any clear triggers, also didnot endorse night sweats or unintentional weight loss. No episodes of lost time that she is aware of. She does endorse persistent difficulty with language for the past few days. She notes some difficulty reading as well. Over the last day or so she is noting improvement and is currently able to do [employer] (language learning software) on her phone in the hospital, an activity that she enjoys. She does not endorse any personal history of cancer or neurologic condition including seizure. No family history of epilepsy. She does note that her father had difficulty with a brain infection that was debilitating and required significant caretaking from her. Her father during the st few years however. She was unable to further delineate his medical condition. Family history isalso notable for mother with breast cancer. She has 3 children. She is a 28-year-old son who has schizophrenia versus schizoaffective disorder complicated by substance use disorder who lives in a shelter. 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 Has not had issues with her work recently per report. She lives independently and performs all IADLs. She has a goat (named Yvette) as well as chickens at her home. No other interactions with livestock. No animal bites endorsed. No tick bites or other known insect bites endorsed. She has a significant other who she sees frequently (Erich). She has she is also close to her mother who is a retired family practice physician. She has a several year history of tinnitus, that had been worked in with an MRI brain with and without contrast in 2014 (not visible in chart but report reads as unremarkable). She is right handed and her primary language is Tuvaluan. PAST MEDICAL HISTORY: HTN Goiter/thyroid nodules PRIOR TO ADMISSION MEDICATIONS: Medications Prior to Admission Medication Sig ??? 27-1 mg oral TABS Take 1 tablet by mouth daily. Current Facility-Administered Medications: ??? ibuprofen (MOTRIN;ADVIL) tablet 200 mg, 200 mg, Oral, q6h prn, Bob Olvera MD ??? VTE - Low Risk, , Does not apply, protocol AND VTE - Low Risk Communication, , , Once, Hattie Adams PA-C ??? acetaminophen tablet 650 mg, 650 mg, Oral, q4h prn, Hattie Adams PA- C, 650 mg at 12/02/21 1158 ??? oxyCODONE (ROXICODONE) tablet 5 mg, 5 mg, Oral, q4h prn, Hattie Adams PA-C ??? ondansetron (ZOFRAN) tablet 4 mg, 4 mg, Oral, q6h prn, Hattie Adams PA-C ??? ondansetron (ZOFRAN) 4 mg/2 mL injection 4 mg, 4 mg, IV Push, q6h prn, Hattie Adams PA-C ? ? alum & mag hydroxide-simeth (MAALOX PLUS) suspension 30 mL, 30 mL, Oral, tid prn, Hattie Adams PA-C ??? levETIRAcetam (KEPPRA) tablet 1,000 mg, 1,000 mg, Oral, bid, Hattie Adams PA-C, 1,000 mgat 12/02/21 0743 ??? dexamethasone (DECADRON) 20 mg/ 5mL injection 6 mg, 6 mg, IV Push, q6h, Hattie Adams PA-C, 6 mg at 12/02/21 1153 ??? pantoprazole (PROTONIX) tablet 40 mg, 40 mg, Oral, daily, Hattie Adams PA-C, 40 mg at 12/02/21 0743 ALLERGIES: Allergies Allergen Reactions ??? Adhesive Tape Itching/Pruritus SOCIAL HISTORY Occupational History ??? Not on file Tobacco Use ??? Smoking status: Not on file ??? Smokeless tobacco: Not on file Substance and Sexual Activity ??? Alcohol use: Not on file ??? Drug use: Not on file ??? Sexual activity: Not on file Social History Narrative ??? Not on file FAMILY HISTORY: See HPI Mother with breast cancer, father with unspecified CONTRACTS LAW PROFESSOR infection. REVIEW OF SYSTEMS: Complete 10-point ROS reviewed and negative except as indicated in the HPI. See HPI for pertinent positives. PHYSICAL EXAMINATION: Vital Signs: BP 112/76 (Cuff Location: Right Arm) Pulse 59 Temp 35.6 ??C (96 ??F) (Tympanic) Resp 18 Ht 1.664 m (5' 5.5) Wt 94.2 kg (207 lb 10.8 oz) LMP 11/19/2021 (Approximate) Comment: longer period (8 days instead or 2-3) SpO2 98% BMI 34.03 kg/m?? GEN: Alert, lying in bed comfortably, in no acute distress. HEENT: Normocephalic. Conjunctivae clear. No sinus drainage or epistaxis. Neck supple CHEST: No signs of respiratory distress, on room air, appears warm and well-perfused. MSK: Moving all four limbs spontaneously. Skin: No rashes appreciated on visualized skin. Bruising noted on right inner arm. NEURO MENTAL STATUS: She is awake, alert, attentive. Conversationally is tangential. Smiling and laughing affect. Able to make simple calculations. Able to follow multistep commands (point to the ceilingafter you point to the floor, touch your left ear with your right index finger). Limited abstraction some concrete thinking demonstrated. When asked how a watch and ruler were similar she described both objects independently. When asked how a banana and an orange were similar she described both objects independently (one is yellow and long and smooth) and when asked again how they were similar she noted that you could eat both of them. She is able to read short words and phrases without issue. She is able to write a complete sentence. On naming of simple objects she is able to name a watch, watchband, ID card. She is able to name a pen and describe its function. She has difficulty naming barcode. On conversation however aphasia becomes more prominent. No clear paraphasic errors however some anomia as well as word substitution. She intermittently has to use multiple words to describe a word or phrase she cannot find (an example was the placed you bring animals when they are sick instead of veterinary hospital). She also frequently uses filler words such as you know. Not clearly having any difficulty with receptive aphasia, however some expressive aphasia with anomia. Able to repeat sentences such as no ifs, ands or buts about it, and the red dog jumped over the brown table without any difficulty. CRANIAL NERVES: Pupils are equal round and reactive to light. Visual garcia are full on testing. Extraocular movements are intact without gaze preference or deviation. No nystagmus. Sensation is intact and symmetric bilaterally in V1, V2, V3 segments to light touch. Intact hearing to casual speech. Does endorsetinnitus bilaterally (chronic). Palate elevates symmetrically, tongue protrudes midline. Shoulder shrug symmetric and full strength. Voice without hoarseness or hypophonia. MOTOR: On pronator drift testing right arm with slight pronation and finger flexion without drift. No satelliting. Normal tone. No abnormal movements appreciated. No atrophy or fasciculations appreciated. Manual muscle testing revealed the following MRC grade muscle power: Right Left Shoulder abduction: 5 5 Elbow Flexion: 5 5 Elbow Extension: 5 5 Wrist Extension: 5 5 Finger Extension: 5 5 FDI 5 5 APB 5 5 Finger Flexion 5 5 Wrist Flexion 5 5 Hip Flexion 5 5 Knee Extension 5 5 Knee Flexion 5 5 Dorsiflexion 5 5 Plantar flexion 5 5 REFLEXES: Reflexes hypoactive bilaterally in lower extremities the patella and trace at Achilles bilaterally. Normoreflexic and symmetric at bilateral biceps, brachioradialis, triceps. No ankle clonus. Bilateral positive Ant in upper extremities. Right foot with downgoing toe. Left foot on resident exam with mildly upgoing toe, on repeated exam with attending equivocal. SENSORY: No hemineglect, no extinction to double sided stimulation (visual & tactile). Light touch symmetric in bilateral upper extremities. Notes some diffuse decreased sensation to light touch in right lower extremity (reports this is chronic, leg right leg has been affected for several years).Vibration sensation intact and symmetric of bilateral hallux. COORD: Complex motor skills revealed normal coordination. Finger-nose- finger and heel to chacon were intact. No noticeable resting or postural tremor. STATION: appropriate stance, no truncal ataxia GAIT: Casual gait intact; patient able to tip-toe, heel-walk. Tandem intact. PERTINENT INVESTIGATIONS: All pertinent labs and imaging since admission reviewed in [facility]. Lab results: Lab Results Component Value Date/Time NA 139 12/01/202127 K 4.3 12/01/202127 CHLORIDE 108 12/01/202127 CO2 21 (L) 12/01/202127 GLU 111 (H) 12/01/202127 UN 10 12/01/202127 CR 0.62 12/01/202127 CA 8.6 12/01/202127 Lab Results Component Value Date/Time WBC 7.51 12/01/202127 RBC 3.74 (L) 12/01/202127 HGB 11.2 (L) 12/01/202127 HCT 34.8 12/01/202127 PLT 271 12/01/202127 Imaging: CT CHEST/ABD/PELVIS W/IV CONT Narrative: Indication: evaluate for tumor/mets, brain mass noted on imaging Technique: Following the uncomplicated administration of intravenous contrast, multiple axial imageswere obtained through the chest abdomen and pelvis. Total DLP: 746.6 mGy.cm Comparison: None Findings: The lungs are clear. No suspicious nodule is identified. There is no pleural effusion or pneumothorax. The heart size is normal. There is no significant mediastinal, hilar or axillary lymphadenopathy. The thoracic aorta and great vessels are patent end unremarkable. There is a small right adnexal cyst. Splenic granulomata are present. The abdominal organs are otherwise unremarkable. There is no free air or fluid. There is no evidence for bowel obstruction. The vascular structures of the abdomen and pelvis are patent and unremarkable. There is no significant abdomi nal lymphadenopathy. Review of the bone windows demonstrates no suspicious abnormality. Impression: Impression: No evidence for a primary malignancy in the chest, abdomen or pelvis. Reading Radiologist: Harrison Umana MR BRAIN W/O + WITH CONTRAST 11/30/2021 (Preliminary) This result has not been signed. Information might be incomplete. Narrative Exam: Limited Stealth MR for preoperative/stereotactic planning, 11/30/2021 Indication: Brain mass or lesion please do with [facility] protocol. Comparison: Brain MRI from earlier today. Technique: Thin-section susceptibility-weighted, T1-weighted, and T2-weighted MR imaging was performed of the skull after intravenous contrast administration. The images were transferred to the [facility] Workstation for surgical planning. Amide proton transfer(APT)-weighted imaging was also performed. Findings: The images were performed for stereotactic planning. The images are reviewed with the prior study, and show nonenhancing T1 hypointense T2 hyperintense lesion exhibiting mass effect centeredin the lateral left temporal lobe, measuring up to approximately 3 x 3.2 cm. Additional lesion exhibiting mass effect with similar signal characteristics centered in the medial left temporal lobe at the perihippocampal gyrus, and T2 hyperintense lesion centered in the left thalamus measuring approximately 1.6 x 2.2 cm. Correlation with recent outside MRI, these did not demonstrate diffusion restriction/ Additional smaller foci identified near the dowd-white matter junction along the left insular cortexand subcortical white matter (axial T2 series images 64 and 70). Additional T2 hyperintense foci in the subcortical white matter in the right frontal lobe are nonspecific. No abnormal focus of susceptibility weighted artifact just acute intracranial hemorrhage. No abnormal extra-axial fluid collections. No substantial midline shift. Vascular flow voids are grossly unremarkable. No obstructive hydrocephalus. Bone marrow signal is grossly unremarkable. The intraocular orbi fiona contents are grossly unremarkable. Paranasal sinuses and mastoid air cells are clear. Scattered nonenlarged bilateral occipital lymph nodes. Impression Impression: Multiple nonenhancing T1 hypointense T2 hyperintense lesions centered involving the left temporal and parietal lobes, left thalamus, left internal capsule and sublentiform region, and possibly also theleft insular white matter. Overall, the appearance is most suggestive of a glioma; inflammatory or infectious processes are felt much less likely. Stereotactic MR imaging of the skull, pre-operative for surgical planning. Reading Radiologist: Johnathan Avelar Resident: Mian Agrawal IMPRESSION: Ms. Guillermina Kelsey is a 51 y.o. right-handed woman with a past medical history of HTN and thyroid nodules (s/p biopsy in 2010) presenting as a transfer for concern for new diagnosis of brain mass. She presented to care with an episode of word finding difficulty and alteration of consciousness. Based on description this event is very suspicious for seizure. She not only had an unusual sensation, but then she had symptomatic aphasia and subsequently lost time and woke covered in vomit. She additionally has some bruises and injuries on her body likely from this event. Per Ms. Kelsey she has been in her usual state of health prior to this event except some headaches for a few months. Based on the severity of the exam today, despite ongoing medication with Keppra and Decadron would suspect that she has had some deficits for longer than a few days. Will need to further corroborate with herfamily/partner. Brain MRI is concerning for left temporal-parietal intra-axial subcortical T2 FLAIR hyperintense lesion with smaller focal lesions in the left insula, left thalamus, left internal capsule, medial left temporal lobe. Lesions are not diffusion restricting, and are nonenhancing on T1 with contrast. At this time imaging does appear most consistent with infiltrating mass lesion. Lack of contrast enhancement, and very homogenous. It is somewhat unusual to see so many hyperintense foci for a primary glioma but certainly possible. No evidence thus far for systemic malignancy with CONTRACTS LAW PROFESSOR metastatic, negative CT CAP. It is possible that sarcoidosis could have a similar presentation, so could obtain echo to assess for extra CONTRACTS LAW PROFESSOR manifestations (although no pulmonary or cardiac symptoms endorsed by Ms. Kelsey). Agree that lumbar puncture could be helpful to further delineate. Would send IL2 if obtaining CSF for neurosarcoid (LISET less specific and less likely to be helpful). Would also send flow, however given current decadron the yield is likely to be low. Primary central nervous system lymphoma could additionally remain on ddx, can present in a multifocal fashion (T1 hypointense, T2 hyperintense), although no significant contrast enhancement (which may have been attenuated by steroids). Could consider serologic workup for hepatitis and HIV, to rule out systemic immunosuppression (albeit no risk factors elicited on history). Ultimately will most likely need tissue diagnosis. RECOMMENDATIONS: -agree with continuing antiepileptic given likely seizure precipitating presentation to care -echo (TTE) -LP (cell count, protein, glucose, oligoclonal bands, IL-2, flow/cytology) -Hep B, Hep C, HIV Patient seen and discussed with Neurology attending, Dr. Paulino. Thank you for involving neurology inthe care of this patient. Please do not hesitate to call with questions/concerns. General neurologypager [phone]. We will continue to follow . Cherelle Alvarez MD PGY3 12/02/2021 17:58 This note was dictated with voice to text. Associated attestation - Erich Paulino MD - 12/02/2021 11:10 PM CDT Attending Addendum 51F presents for paraphasic errors and 30 minute episode of lost time preceded by aura of dread and sinking feeling, then regained consciousness covered in vomit and bruises. MRI discovered T2 hyperintensities involving L tempoparietal lobe and L thalamus but T1 hypointense and no significant gadolinium enhancement. Highest concern for tumor. Lack of contrast enhancement and non- toxic appearance makes infection less likely. Could be sarcoid (CT C/A/P identified granulomata in spleen). Will obtain TTE to look for other evidence of extrapulmonary sarcoid and will obtain CSF (send large infectious panel, flow cytometry, and CSF IL-2R). Agree with ongoing levetiracetam as she clearly had a seizure yesterday. Steroids per NSG. Most likely will need brain biopsy for definitive diagnosis, but reasonableto first search for other etiologies. I saw and evaluated the patient on the date of service with the Neurology team. I agree with the history, examination and plan of care documented on the resident's note unless otherwise specified. Available tests were independently reviewed by me. ROS: ten point review of systems negative except as below. PMH/PSH/FH/SH: reviewed. Erich Paulino MD, 12/02/2021 11:08 PM documented in this encounter Nursing Notes Teresa Rivera RN - 12/05/2021 2:56 PM CDT Attempted to call mother but was cut off.tried back and no answer. bgk documented in this encounter OR Notes OR PostOp - Jimena Allison PA-C - 12/05/2021 9:10 AM CDT Surgery Post Op Check S: Patient doing well. Complains of difficulty swallowing and dry mouth. Some incisional pain. Denies headache and nausea. O: BP 109/71 (Cuff Location: Right Arm) Pulse 56 Temp 36.6 ??C (97.9 ??F) (Oral) Resp 18 Ht 1.664 m (5' 5.5) Wt 94.2 kg (207 lb 10.8 oz) LMP 11/19/2021 (Approximate) Comment: longer period (8 days instead or 2-3) SpO2 95% BMI 34.03 kg/m?? Gen: alert, NAD. Lying in bed. Pulm: no respiratory distress Abd: soft, minimally tender to palpation, nondistended. Extrem: warm, well-perfused, no edema. Skin: no rashes, lesions. Incision c/d/i Neuro: Mental status: Alert, awake. Oriented to self, date, and place. Some continued difficulty with word finding. Cranial Nerves: II-XII fully intact Motor: Follows commands x4 extremities, 5/5 inspector printed circuit boards strength and plantar/dorsiflexion bilaterally Sensory: Sensation intact in all 4 extremities Intake/Output Summary (Last 24 hours) at 12/05/2021 0910 Last data filed at 12/04/20211999 Gross per 24 hour Intake 680 ml Output 5 ml Net 675 ml A/P: 51 y.o. female POD 0 s/p left craniotomy with open biopsy - Routine post-op cares - Serial neuro exams, q1h overnight - SBP <140 - Pain control - Monitor incision site - Continue Decadron 4mg q6H - Continue seizure prophylaxis with Keoelnara Jimena Allison PA-C, 12/05/2021 9:10 AM OR Surgeon - Darinel Dunlap MD - 12/05/2021 12:00 [place] [address] [facility]#: [id number] PATIENT: GUILLERMINA KELSEY : 1970 DATE OF SERVICE: 12/05/2021 OPERATION REPORT DATE OF SERVICE: 12/05/2021 My signature attests that I was present and assisted with/performed the hill or critical portion of this procedure. I was immediately available or had arranged immediate staff availability for all the non-critical or non-hill portions of the entire procedure. Darinel Dunlap MD, 12/06/2021 4:59 PM STAFF SURGEON: Darinel Dunlap MD RESIDENT SURGEON: Tommy Arevalo MD. PREOPERATIVE DIAGNOSIS: Left FLAIR abnormality/lesion noted on MRI POSTOPERATIVE DIAGNOSIS: Left FLAIR abnormality/lesion noted on MRI PROCEDURES PERFORMED: Left-sided craniotomy for open biopsy/resection. Use of frameless stereotactic navigation. Use of intraoperative ultrasound. FINDINGS: Abnormal tissue noted grossly and on frozen section. ESTIMATED BLOOD LOSS: 10 mL. INDICATIONS FOR OPERATION: Guillermina Kelsey is a 51-year-old female who presented with a seizure and word-finding difficulty. On workup, she was noted to find edema on CT. An MRI was obtained showing [id number] and flair abnormalities in the left temporal lobe and left thalamus. CSF studies were obtained that did not show any diagnostic information. The leading differential is a neoplastic process; therefore, biopsy was indicated. Risks, benefits, and alternatives were discussed with the patient, and written consent was obtained for the above operation. DESCRIPTION OF PROCEDURE: The patient was brought to the operating room where general endotracheal anesthesia was induced, IV access was obtained. The patient was positioned supine, with a shoulder bump underneath the left shoulder. The David pins were placed. The patient's head was turned to the right so that the left side of the head was facing up. The head was affixed to the David head girls golf coach. All pressure points were padded. Stealth was registered with good accuracy. The incision was then planned, prepped and draped in standard fashion. IV antibiotics were administered. After conduction appropriate time-out, 10 mL of lidocaine with epinephrine was infiltrated into the planned linear incision. The incision was opened using a #10 blade scalpel. Monopolar cautery was used to dissect through the muscle and down to the cranium. A periosteal elevator was used to dissect the periosteum and exposethe skull. A cerebellar retractor was used to retract open the incision. Stealth was then used tomark out the tumor over the skull. A craniotomy was then planned around the edges of the tumor. The brass molder drill was then used to create a katerine hole. A B1 with a footplate was used to turn the craniotomy, and the bone flap was stored on the back table. The dura was coagulated for hemostasis, and peripheral epidural tack up sutures were placed. Ultrasound and Frameless Navigation were utilized to confirm were directly over the lesion and in the safest area to biopsy. A #15 blade scalpel was then used to open the dura. Metzenbaum scissors were then used to continue opening the dural flap in a U shaped fashion, with the inferior aspect being maintained to flap towards the sigmoid sinus. Once the dura was opened and the brain was exposed, the most affected gyrus was quite swollen and enlarged, though this was not significant to cause any harm to the brain tissue. We raised the head of the bed and gave Mannitol with adequate decrease of swelling noted. The ultrasound was brought into the field. Ultrasound was used to identify the borders of the tumor, and it was able to be identified under ultrasound guidance which matched the Stealth, confirming the accuracy of our location. At this point, using Stealth guidance, we chose an inferior and posterior aspect of the tumor to avoid any eloquent cortex. Bipolar cautery was used to create a corticectomy. Once the corticectomy was created, tumor forceps were used to obtain samples that were sent for frozen section. The frozen came back as abnormal tissue, possibly primarily glial origin. With confirmed abnormal tissue, we then continued to obtain tissue to send for permanent pathology, using tumor forceps. The tumor forceps wereused to continue removing tissue to safely resect the posterior aspect of the tumor. Once we were sa tisfied with the amount of tissue obtained and resected, bipolar cautery was used to maintain hemostasis. Once hemostasis was obtained, the cavity was lined with Surgicel. The area was irrigated to confirm that it remains clean and no active bleeding was identified. We then focused on closure. The dural corners were reapproximated using 4-0 Nurolon. DuraGen was then cut and placed over the dura. The bone flap was then plated using the Neuro-Synthes plating system, and was affixed to the skull. At this point, the wound was irrigated copiously, and meticulous hemostasis was obtained. The galea was then closed using 2-0 Vicryl sutures in an inverted interrupted fashion. The skin was closed using 3-0 nylon in a running locking fashion. The incision was then cleaned, and bacitracin ointment was applied over the incision. Sterile dressings of Telfa, followedby Medipore tape was then applied. This marked the end of the procedure, the drapes were taken down, the patient was removed from pins, was extubated, and transferred to postanesthesia care unit without any issue. Counts were correct, and there were no complications during the procedure. Dr. Dunlap was present during the operation. Tommy Arevalo MD Resident Physician Neurosurgery Service COSIGNER: Darinel Dunlap MD Staff Physician Surgery Service Received in Creative Manager: 12/05/2021 17:41:26 M: /[id number] AE/MODL documented in this encounter Miscellaneous Notes Discharge non-MD/non-CRAIG Summaries - Ldumila Neal RN - 12/07/2021 6:24 PM CDT DISCHARGE NOTE D: Patient has been discharged. A: (As documented in the Discharge Planning Flowsheet) Discharge Instructions (AVS): AVS given Discharge clothing/valuables: has adequate clothing Discharge medications: patient received medications Home equipment status: no equipment needed Home equipment/supplies recommended: none Final discharge destination: Home or self care R: The patient and family understood the AVS. P: Support patient and family if they call back with questions. Ludmila Neal RN, 12/07/2021 6:26 PM Nursing Assessment - Ludmila Neal RN - 12/07/2021 5:01 PM CDT Nursing Assessment Head to Toe BP 120/75 (Cuff Location: Right Arm) Pulse 78 Temp 36.1 ??C (97 ??F) (Tympanic) Resp 18 Ht 1.664 m (5' 5.5) Wt 94.2 kg (207 lb 10.8 oz) LMP 11/19/2021 (Approximate) Comment: longer period (8 days instead or 2-3) SpO2 98% BMI 34.03 kg/m?? Shift Summary Pt A&O x4, able to make needs known, uses call light appropriately. Some mild word finding troubles. VSS, on RA. Up ad ivy, walking in halls independently. C/o L sided headache/head pain, getting tylenol and oxycodone prn which is helpful. Pupils equal, round, reactive to light. Bilateral hand tank welder equal and strong, and plantar and dorsi flexion strong. Incision to L side of head is clean, dry, intact, sutures in place, well approximated. Uncovered. Reg diet, thin liquids, takes meds whole. Cooperative and pleasant, will continue to monitor and follow POC. Neurologic/Cognitive Within Defined Limits HEENT Assessment Within Defined Limits except for: Head/Face Symptoms: trauma/injury Cardiac Within Defined Limits Respiratory Within defined limits Neurovascular Within Defined Limits Gastrointestinal Assessment Within Defined Limits except for: Additional GI Signs/Symptoms: constipation Stool Amount: moderate (12/04/21 1600) Stool Color: brown (12/04/21 1600) Stool Consistency: formed (12/04/21 1600) Genitourinary Within Defined Limits Musculoskeletal Within Defined Limits Integumentary Assessment Within Defined Limits except for: Skin Assessment Integrity - incision Patient Lines/Drains/Airways Status Active LDAs Name Placement date Placement time Site Days Incision: Head Left 12/05/21 1654 -- 2 Psychosocial Within Defined Limits Ludmila Neal RN, 12/07/2021 5:05 PM Nursing Assessment - Hattie Maloney RN - 12/07/2021 2:42 AM CDT Nursing Assessment Head to Toe Head to Toe Assessment Shift Summary Patient was a transfer from SICU at 2300. Her possessions are in the drawers in the room. Patient isalert and orientated x4. She was at an occassional loss for words when having a conversation and words were a bit garbled at times. She stated she was hungry, when I asked if she would like chicken or beef broth, she answered yes. Pain was well managed with PRN medications. She slept comfortably throughout the night. Neurologic/Cognitive Assessment Within Defined Limits except for: Speech: Garbled HEENT Assessment Within Defined Limits except for: Head/Face Symptoms: tenderness Comments: Left sided headache Cardiac Assessment Within Defined Limits except for: Director [employer] - remote telemetry Respiratory Within defined limits Neurovascular Within Defined Limits Gastrointestinal Within Defined Limits Stool Amount: moderate (12/04/21 1600) Stool Color: brown (12/04/21 1600) Stool Consistency: formed (12/04/21 1600) Genitourinary Within Defined Limits Musculoskeletal Assessment Within Defined Limits except for: Musculoskeletal Assessment: General Mobility: Generalized weakness Integumentary Assessment Within Defined Limits except for: Skin Assessment Integrity - incision Comments: Left incision on head, covered with dressing Patient Lines/Drains/Airways Status Active LDAs Name Placement date Placement time Site Days Peripheral IV 12/01/21 Left Antecubital 12/01/21 0000 -- 6 Incision: Head Left 12/05/21 1654 -- 1 Psychosocial Within Defined Limits Transfer - Cynthia Mahmood RN - 12/06/2021 10:55 PM CDT TRANSFER OUT NOTE D: Guillermina Kelsey admitted on 11/30/2021 with diagnosis of Brain Mass. Medical history includes: No past medical history on file. Surgical history includes: No past surgical history on file. Active Problems: Brain mass Focal seizure () Resolved Problems: * No resolved hospital problems. * Procedures during hospitalization include: Procedure(s) with comments: CRANIOTOMY WITH OPEN BIOPSY WITH STEALTH - STEALTH MRI SCAN Completed Transferred patient due to: no longer requiring ICU care Patient Belonging 11/30/20212025 Reason for Inventory: Admission Patient or family informed of Patient Valuables and Belongings Policy (#[id number]): Policy reviewed - patient/family/designee has indicated that he/she will assume responsibility of patient valuables Transferred from Unit/Bed: [facility] [place] Transferred to Unit/Bed: [place] [address] Received By:: Susana Liz RN A: Transferred patient from [facility] to [place] [address] at 2255, via wheelchair. Transferred with: RN Transferred with all property: yes Family made aware of transfer: no - patient will call R: Tolerated transfer. well P: Commence with cares on receiving unit. Nursing Assessment - Cynthia Mahmood RN - 12/06/2021 8:00 PM CDT Nursing Assessment Head to Toe Head to Toe Assessment Shift Summary Shift Summary Neurologic/Cognitive Assessment Within Defined Limits except for: Speech: Garbled HEENT Assessment Within Defined Limits except for: Head/Face Symptoms: localized swelling Comments: L side incision w/ island dressing Cardiac Assessment Within Defined Limits except for: Director [employer] - bedside telemetry Lead Monitored: Lead II ECG Rhythm: normal sinus rhythm ST Segment (mm): Normal T-Wave: Normal Pacemaker: Pacemaker: No Respiratory Within defined limits Neurovascular Assessment Within Defined Limits except for: Gastrointestinal Assessment Within Defined Limits except for: Bowel Sounds hypoactive - all quadrants Stool Amount: moderate (12/04/21 1600) Stool Color: brown (12/04/21 1600) Stool Consistency: formed (12/04/21 1600) Genitourinary Assessment Within Defined Limits except for: Voiding: Voiding without difficulty and frequency Musculoskeletal Assessment Within Defined Limits except for: Musculoskeletal Assessment: General Mobility: Generalized weakness Integumentary Assessment Within Defined Limits except for: Skin Assessment Color/Characteristics - bruised (ecchymotic) Integrity - incision Patient Lines/Drains/Airways Status Active LDAs Name Placement date Placement time Site Days Peripheral IV 12/01/21 Left Antecubital 12/01/21 0000 -- 5 Incision: Head Left 12/05/21 1654 -- 1 Psychosocial Assessment Within Defined Limits except for: Psychosocial Assessment: Family Behavior: not present Nursing Assessment - Mandy Jackson RN - 12/06/2021 4:00 PM CDT Nursing Assessment Head to Toe Head to Toe Assessment Shift Summary ICU Shift Note NEURO: Patient A&Ox4. Able to make needs known. Patient did has some garbled speech at one pointwhen trying to have a complex conversation. Patient is following commands, PERRL. Strength equal inall extremities. RESP: On Room Air. LS Clear. CARD: NSR. No need for PRN SBP medications. GI: Bowel sounds active. Tolerating clear liquids, was able to stomach toast tonight with only slight nausea and no vomiting. : up to bathroom with Assist of 1, urinating without issues. ICU Cares completed, Will continue to monitor patient and adjust plan of care PRN. Mandy Jackson RN, 12/06/2021 7:22 PM Neurologic/Cognitive Assessment Within Defined Limits except for: Speech: Garbled Comments: A&Ox4, speech garbled at times Frequent Neuro Assessments have been documented in the flowsheets HEENT Assessment Within Defined Limits except for: Head/Face Symptoms: lesion(s) Cardiac Assessment Within Defined Limits except for: Director [employer] - bedside telemetry Lead Monitored: Lead II ECG Rhythm: normal sinus rhythm Pacemaker: Pacemaker: No Respiratory Within defined limits Comments: Room air Neurovascular Within Defined Limits Gastrointestinal Within Defined Limits Stool Amount: moderate (12/04/21 1600) Stool Color: brown (12/04/21 1600) Stool Consistency: formed (12/04/21 1600) Genitourinary Within Defined Limits Comments: Up to bathroom with A of 1 Musculoskeletal Within Defined Limits Integumentary Assessment Within Defined Limits except for: Skin Assessment Integrity - incision Comments: Left side of head dsg D&I Patient Lines/Drains/Airways Status Active LDAs Name Placement date Placement time Site Days Peripheral IV 12/01/21 Left Antecubital 12/01/21 0000 -- 5 Incision: Head Left 12/05/21 1654 -- 1 Psychosocial Within Defined Limits Nursing Assessment - Meche Devi RN - 12/06/2021 12:00 PM CDT Nursing Assessment Head to Toe Head to Toe Assessment Shift Summary Pt c/o NOWAK given dilaudid .25 mg x2. Oxy 10 mg given with relief of nowak. Zofran given for nausea. Tolerating clear liquids. Pt very sleepy. Talking clearly. Headache interfering with getting up and bath. 1400 pt up to bathroom voiding twice. Rated pain 2 /10. Feeling better. Oxy 10 mg giving relief. Sitting up in chair by 1400. Neurologic/Cognitive Assessment Within Defined Limits except for: Comments: A&O Frequent Neuro Assessments have been documented in the flowsheets HEENT Assessment Within Defined Limits except for: Head/Face Symptoms: lesion(s) Cardiac Assessment Within Defined Limits except for: Director [employer] - bedside telemetry Lead Monitored: Lead II ECG Rhythm: normal sinus rhythm Pacemaker: Pacemaker: No Respiratory Within defined limits Neurovascular Within Defined Limits Gastrointestinal Within Defined Limits Stool Amount: moderate (12/04/21 1600) Stool Color: brown (12/04/21 1600) Stool Consistency: formed (12/04/21 1600) Genitourinary Assessment Within Defined Limits except for: Comments: Urinary retention Musculoskeletal Within Defined Limits Integumentary Assessment Within Defined Limits except for: Skin Assessment Integrity - incision Comments: Left side of head dsg D&I Patient Lines/Drains/Airways Status Active LDAs Name Placement date Placement time Site Days Peripheral IV 12/01/21 Left Antecubital 12/01/21 0000 -- 5 Arterial Line Small lumen Left Radial 12/05/21 1335 -- less than 1 Incision: Head Left 12/05/21 1654 -- less than 1 Psychosocial Within Defined Limits Comments: Mother called Nursing Assessment - Meche Devi RN - 12/06/2021 8:00 AM CDT Nursing Assessment Head to Toe Head to Toe Assessment Shift Summary Shift Summary Neurologic/Cognitive Assessment Within Defined Limits except for: Comments: A&O Frequent Neuro Assessments have been documented in the flowsheets HEENT Assessment Within Defined Limits except for: Head/Face Symptoms: lesion(s) Cardiac Assessment Within Defined Limits except for: [employer] - bedside telemetry Lead Monitored: Lead II ECG Rhythm: normal sinus rhythm Pacemaker: Pacemaker: No Respiratory Within defined limits Neurovascular Within Defined Limits Gastrointestinal Within Defined Limits Stool Amount: moderate (12/04/21 1600) Stool Color: brown (12/04/21 1600) Stool Consistency: formed (12/04/21 1600) Genitourinary Assessment Within Defined Limits except for: Comments: Urinary retention Musculoskeletal Within Defined Limits Integumentary Assessment Within Defined Limits except for: Skin Assessment Integrity - incision Comments: Left side of head dsg D&I Patient Lines/Drains/Airways Status Active LDAs Name Placement date Placement time Site Days Peripheral IV 12/01/21 Left Antecubital 12/01/21 0000 -- 5 Arterial Line Small lumen Left Radial 12/05/21 1335 -- less than 1 Incision: Head Left 12/05/21 1654 -- less than 1 Psychosocial Within Defined Limits Comments: Mother called Nursing Assessment - Adan Eldridge RN - 12/06/2021 5:29 AM CDT Nursing Assessment Head to Toe Head to Toe Assessment Shift Summary Patient is alert and oriented X4, has good equal strength in all extremities and is neurologically intact. She has not shown much if any difficulties in understanding or finding words. Complains of much pain and pressure in the back of the neck and has been receiving oxycodone and dilaudid for pain control. BP at one point was above 140, and hydralazine given once. Incision is intactwith dried drainage. She has not been able to urinate after th webster was taken out at 1900. Bladder scan done for 757 ml and straight catheterization done for 700 ml with 51 ml residual. Labs have been drawn and pain under control. Will continue to monitor Neurologic/Cognitive Within Defined Limits HEENT Assessment Within Defined Limits except for: Cardiac Assessment Within Defined Limits except for: Director [employer] - bedside telemetry ECG Rhythm: normal sinus rhythm ST Segment (mm): Normal T-Wave: Normal Pacemaker: Pacemaker: No Respiratory Within defined limits Neurovascular Within Defined Limits Gastrointestinal Within Defined Limits Stool Amount: moderate (12/04/21 1600) Stool Color: brown (12/04/21 1600) Stool Consistency: formed (12/04/21 1600) Genitourinary Assessment Within Defined Limits except for: Voiding: Intermittent straight cath Urine characteristics: , jarek Musculoskeletal Within Defined Limits Integumentary Assessment Within Defined Limits except for: Skin Assessment Color/Characteristics - bruised (ecchymotic) Integrity - incision and wound Patient Lines/Drains/Airways Status Active LDAs Name Placement date Placement time Site Days Peripheral IV 12/01/21 Left Antecubital 12/01/21 0000 -- 5 Arterial Line Small lumen Left Radial 12/05/21 1335 -- less than 1 Incision: Head Left 12/05/21 1654 -- less than 1 Psychosocial Within Defined Limits Nursing Assessment - Adan Eldridge RN - 12/06/2021 12:00 AM CDT Nursing Assessment Head to Toe Head to Toe Assessment Shift Summary Shift Summary Neurologic/Cognitive Assessment Within Defined Limits except for: Cognition: poor judgement/safety awareness Mood/Behavior: Calm HEENT Within Defined Limits Cardiac Assessment Within Defined Limits except for: Director [employer] - bedside telemetry ECG Rhythm: normal sinus rhythm IN Interval (sec): 0.19 QRS Interval (sec): 0.07 QT Interval: 0.36 QTc Interval: 0.38 ST Segment (mm): Normal T-Wave: Normal Pacemaker: Pacemaker: No Respiratory Within defined limits Neurovascular Within Defined Limits Gastrointestinal Within Defined Limits Stool Amount: moderate (12/04/21 1600) Stool Color: brown (12/04/21 1600) Stool Consistency: formed (12/04/21 1600) Genitourinary Assessment Within Defined Limits except for: Voiding: Hesitancy Musculoskeletal Assessment Within Defined Limits except for: Musculoskeletal Assessment: General Mobility: Generalized weakness Integumentary Assessment Within Defined Limits except for: Skin Assessment Moisture - moist Integrity - incision and wound Patient Lines/Drains/Airways Status Active LDAs Name Placement date Placement time Site Days Peripheral IV 12/01/21 Left Antecubital 12/01/21 0000 -- 5 Arterial Line Small lumen Left Radial 12/05/21 1335 -- less than 1 Incision: Head Left 12/05/21 1654 -- less than 1 Psychosocial Within Defined Limits Nursing Assessment - Adan Eldridge RN - 12/05/2021 8:00 PM CDT Nursing Assessment Head to Toe Head to Toe Assessment Shift Summary Shift Summary Neurologic/Cognitive Within Defined Limits HEENT HEENT Cardiac Assessment Within Defined Limits except for: Director [employer] - bedside telemetry ECG Rhythm: normal sinus rhythm ST Segment (mm): Normal T-Wave: Normal Pacemaker: Pacemaker: No Respiratory Within defined limits Neurovascular Within Defined Limits Gastrointestinal Within Defined Limits Stool Amount: moderate (12/04/21 1600) Stool Color: brown (12/04/21 1600) Stool Consistency: formed (12/04/21 1600) Genitourinary Within Defined Limits Comments: Webster has been pulled out and waiting for patient to pee Musculoskeletal Assessment Within Defined Limits except for: Musculoskeletal Assessment: General Mobility: Generalized weakness Integumentary Assessment Within Defined Limits except for: Skin Assessment Color/Characteristics - bruised (ecchymotic) Moisture - moist Integrity - incision and wound Patient Lines/Drains/Airways Status Active LDAs Name Placement date Placement time Site Days Peripheral IV 12/01/21 Left Antecubital 12/01/21 0000 -- 4 Arterial Line Small lumen Left Radial 12/05/21 1335 -- less than 1 Incision: Head Left 12/05/21 1654 -- less than 1 Psychosocial Within Defined Limits Nursing Focused Reassessment - David Okeefe RN - 12/05/2021 7:16 PM CDT Images from the original note were not included. Upon admission a Four Eyes Skin Inspection was completed with Jennifer RAMIREZ. Skin injuries were present.Will continue to use Carrington Scale and skin bundle interventions as appropriate. David Okeefe RN, 12/05/2021 7:17 PM Op Note Immediate - Tommy Arevalo MD - 12/05/2021 2:32 PM CDT [facility] Immediate Post Operative Note Note written: Day of Surgery Patient Name: Guillermina Kelsey ( ) OR Date: 12/05/2021 1110 Procedure(s) and Anesthesia Type: * CRANIOTOMY WITH OPEN BIOPSY WITH STEALTH - General Pre-op History and Physical reviewed. Pre-Op Diagnosis Codes: * Brain mass [G93.89] Post-Op Diagnosis Codes: * Brain mass [G93.89] Surgeon(s) and Role: * Darinel Dunlap MD - Primary * Tommy Arevalo MD - Resident - Assisting Antibiotics Administered CEFAZOLIN (ANCEF) 1 G IN NACL 1000 ML IRRIGATION BOTTLE Last given: 1504 Frequency: INTRA-OP ONCE PRN * No tourniquets in log * * No LDAs found * Implant Name Type Inv. Item Serial No. Station Cashier Lot No. [id number] No. Used Action GELFOAM(SURGIFOAM) SZ 100 3X5 (LARGE) 1973 Hemostatic Agent GELFOAM(SURGIFOAM) SZ 100 3X5 (LARGE) 1973 [employer] Left 1 Implanted SURGICEL 4X8 1951 Hemostatic Agent SURGICEL 4X8 1951 [employer] Left 1 Implanted SURGIFLO(aka Gel Flow) 2991 Hemostatic Agent SURGIFLO(aka Gel Flow) 2991 [employer] Left 1 Implanted STRAIGHT PLATE, 2 HOLE 421.502 Plate STRAIGHT PLATE, 2 HOLE 421.502 [employer] Left 2 Implanted KATERINE HOLE COVER, 17MM 421.527 Plate KATERINE HOLE COVER, 17MM 421.527 [employer] [place] Left 1 Implanted DURA,DURAGEN 3X3IN [id number] Duragen DURA,DURAGEN 3X3IN [id number] Neurescue YAZ [id number] Left 1 Implanted 4MM 400.834E Screw/Preston 4MM 400.834E [employer] Left 9 Implanted Intraoperative Findings: Abnormal tissue noted grossly and on frozen. Infection Present at Time of Surgery: No evidence of infection present Clean EBL: 10ML ml ID Type Source Tests Collected by Time Destination A : LEFT BRAIN MASS Tissue Brain OR:FROZEN SECTION Darinel Dunlap MD 12/05/2021 1519 Pathology B : LEFT BRAIN MASS Tissue Head OR:ROUTINE GROSS AND MICROSCOPIC EXAMINATION Darinel Dunlap MD 12/05/2021 1547 Pathology Complications: None Tommy Arevalo MD 12/05/2021 16:53 Nursing Assessment - Josh Tobar RN - 12/05/2021 1:03 PM CDT Nursing Assessment Head to Toe Head to Toe Assessment Shift Summary BP 118/77 (Cuff Location: Right Arm) Pulse 58 Temp 36.9 ??C (98.4 ??F) (Oral) Resp 18 Ht1.664 m (5' 5.5) Wt 94.2 kg (207 lb 10.8 oz) LMP 11/19/2021 (Approximate) Comment: longer period (8 days instead or 2-3) SpO2 95% BMI 34.03 kg/m?? PT Aox4. VSS Able to make needs known. Neuros intact. CMS intact. Pt struggles to find words. Struggled with pronouns. Pt up and voids independently. Pt proceeded to OR for a craniotomy with open biopsy during shift. Administered scheduled medication.Completed neurological assessments. Pt reported partial pain relief. Pt rested between cares. Continue to monitor for any acute changes. Neurologic/Cognitive Within Defined Limits Comments: Failure to find words. Struggled with pronouns and repeating words. HEENT Within Defined Limits Cardiac Within Defined Limits Respiratory Within defined limits Neurovascular Within Defined Limits Gastrointestinal Within Defined Limits Stool Amount: moderate (12/04/21 1600) Stool Color: brown (12/04/21 1600) Stool Consistency: formed (12/04/21 1600) Genitourinary Within Defined Limits Musculoskeletal Within Defined Limits Integumentary Assessment Within Defined Limits except for: Skin Assessment Integrity - incision Comments: Lumbar puncture Patient Lines/Drains/Airways Status Active LDAs Name Placement date Placement time Site Days Peripheral IV 12/01/21 Left Antecubital 12/01/21 0000 -- 4 Psychosocial Within Defined Limits Nursing Assessment - Victoria De La Torre SRN - 12/05/2021 10:33 AM CDT Nursing Assessment Head to Toe Head to Toe Assessment Shift Summary Alert and Oriented X 4. Patient able to verbalize her needs. Independently voiding. Paient up and ambulating in the room. Neurosintact. Patient otherwise healthy, scheduled for brain biopsy. Continue to monitor. Neurologic/Cognitive Within Defined Limits HEENT Assessment Within Defined Limits except for: Comments: Light headache. Cardiac Within Defined Limits Respiratory Within defined limits Neurovascular Within Defined Limits Gastrointestinal Within Defined Limits Stool Amount: moderate (12/04/21 1600) Stool Color: brown (12/04/21 1600) Stool Consistency: formed (12/04/21 1600) Genitourinary Within Defined Limits Musculoskeletal Within Defined Limits Integumentary Assessment Within Defined Limits except for: Skin Assessment Integrity - incision Comments: Lumbar puncture Patient Lines/Drains/Airways Status Active LDAs Name Placement date Placement time Site Days Peripheral IV 12/01/21 Left Antecubital 12/01/21 0000 -- 4 Psychosocial Within Defined Limits Associated attestation - Nicole Navraro RN - 12/05/2021 3:51 PM CDT I have reviewed today's student nurse/lab intern's nursing documentation. 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 VSS, denies pain. Remains on RA, LS intact, bowel sounds active, no BM this shift. Voiding. Lumbar site covered with band aid. A: Medication administration, assessment. R: No c/o nausea. Slept most of shift. P: Continue with plan of care. NPO at midnight for procedure in AM. Efraní Cardenas, RN, 12/05/2021 3:09 AM Neurologic/Cognitive Assessment Within Defined Limits except for: Comments: Word finding difficulty HEENT Within Defined Limits Cardiac Within Defined Limits Respiratory Within defined limits Neurovascular Within Defined Limits Gastrointestinal Within Defined Limits Stool Amount: moderate (12/04/21 1600) Stool Color: brown (12/04/21 1600) Stool Consistency: formed (12/04/21 1600) Genitourinary Within Defined Limits Musculoskeletal Within Defined Limits Integumentary Assessment Within Defined Limits except for: Skin Assessment Integrity - incision Patient Lines/Drains/Airways Status Active LDAs Name Placement date Placement time Site Days Peripheral IV 12/01/21 Left Antecubital 12/01/21 0000 -- 4 Psychosocial Within Defined Limits Nursing Assessment - Kendra Stack RN - 12/04/2021 6:38 PM CDT Nursing Assessment Head to Toe Head to Toe Assessment Shift Summary A/O x 4. Continues to have word finding difficulty but has improved since admission. Neuro's remain unchanged. VSS. On RA. Pt reports mild NOWAK. PRN Tylenol administered with adequate relief. Denies numbness or tingling in extremities. Pt resting comfortably between cares. Continue to monitor and treat per POC. No BM this shift. CHG completed. NPO at midnight. Neurologic/Cognitive Assessment Within Defined Limits except for: Comments: Word finding difficulty HEENT Within Defined Limits Cardiac Within Defined Limits Respiratory Within defined limits Neurovascular Within Defined Limits Gastrointestinal Within Defined Limits Stool Amount: small (12/04/21 1000) Stool Color: brown (12/04/21 1000) Stool Consistency: formed (12/04/21 1000) Genitourinary Within Defined Limits Musculoskeletal Within Defined Limits Integumentary Assessment Within Defined Limits except for: Skin Assessment Integrity - incision Patient Lines/Drains/Airways Status Active LDAs Name Placement date Placement time Site Days Peripheral IV 12/01/21 Left Antecubital 12/01/21 0000 -- 3 Psychosocial Within Defined Limits Nursing Assessment - Kyle Hendricks - 12/04/2021 1:33 PM CDT Nursing Assessment Head to Toe Head to Toe Assessment Shift Summary Shift Summary Neurologic/Cognitive Assessment Within Defined Limits except for: Comments: Occasional word finding difficulty HEENT Within Defined Limits Cardiac Assessment Within Defined Limits except for: Director [employer] - bedside telemetry Respiratory Within defined limits Neurovascular Within Defined Limits Gastrointestinal Within Defined Limits Stool Amount: small (12/04/21 1000) Stool Color: brown (12/04/21 1000) Stool Consistency: formed (12/04/21 1000) Genitourinary Within Defined Limits Musculoskeletal Within Defined Limits Integumentary Assessment Within Defined Limits except for: Skin Assessment Integrity - incision Patient Lines/Drains/Airways Status Active LDAs Name Placement date Placement time Site Days Peripheral IV 12/01/21 Left Antecubital 12/01/21 0000 -- 3 Psychosocial Within Defined Limits Associated attestation - Nicole Navarro RN - 12/04/2021 3:22 PM CDT I have reviewed today's student nurse/lab intern's nursing documentation. Nicole Navarro RN 12/04/2021 15:22 Nursing Assessment - Josh Tobar RN - 12/04/2021 12:28 PM CDT Nursing Assessment Head to Toe Head to Toe Assessment Shift Summary BP 113/73 (Cuff Location: Right Arm) Pulse 57 Temp 35.8 ??C (96.5 ??F) (Tympanic) Resp 18 Ht 1.664 m (5' 5.5) Wt 94.2 kg (207 lb 10.8 oz) LMP 11/19/2021 (Approximate) Comment: longerperiod (8 days instead or 2-3) SpO2 95% BMI 34.03 kg/m?? PT Aox4. VSS Able to make needs known. Pt c/o of slight headache pain. Neuros intact. CMS intact. Ptstruggles to find words. Struggled with pronouns. Pt up and voids independently. Administered scheduled medication. Administered prn pain medication. Completed neurological assessments. Pt reported partial pain relief. Pt rested between cares. Continue to monitor for any acute changes. Neurologic/Cognitive Within Defined Limits Comments: Failure to find words. Struggled with pronouns and repeating words. HEENT Within Defined Limits Cardiac Within Defined Limits Respiratory Within defined limits Neurovascular Within Defined Limits Gastrointestinal Within Defined Limits Stool Amount: small (12/04/21 1000) Stool Color: brown (12/04/21 1000) Stool Consistency: formed (12/04/21 1000) Genitourinary Within Defined Limits Musculoskeletal Within Defined Limits Integumentary Assessment Within Defined Limits except for: Skin Assessment Integrity - incision Comments: Lumbar puncture Patient Lines/Drains/Airways Status Active LDAs Name Placement date Placement time Site Days Peripheral IV 12/01/21 Left Antecubital 12/01/21 0000 -- 3 Psychosocial Within Defined Limits Nursing Assessment - Efraín Cardenas RN - 12/04/2021 2:58 AM CDT Nursing Assessment Head to Toe Head to Toe Assessment Shift Summary D: A/O x4, neuro intact besides forgetfulness, VSS, endorses headache pain. Remains on RA, LS clear, bowel sounds active, no BM this shift. Voiding. Lumbar site appears intact with no drainage, band aid intact. A: Medication administration, assessment. R: No c/o nausea. Slept most of shift. P: Continue with plan of care. Efraín Cardenas RN, 12/04/2021 2:59 AM Neurologic/Cognitive Within Defined Limits Comments: Forgetfulness HEENT Within Defined Limits Cardiac Within Defined Limits Respiratory Within defined limits Neurovascular Within Defined Limits Gastrointestinal Within Defined Limits Stool Amount: small (12/03/21 1600) Stool Color: brown (12/03/21 1600) Stool Consistency: formed (12/03/21 1600) Genitourinary Within Defined Limits Musculoskeletal Within Defined Limits Integumentary Assessment Within Defined Limits except for: Skin Assessment Integrity - incision Patient Lines/Drains/Airways Status Active LDAs Name Placement date Placement time Site Days Peripheral IV 12/01/21 Left Antecubital 12/01/21 0000 -- 3 Psychosocial Within Defined Limits Nursing Assessment - Kendra Stack, RN - 12/03/2021 10:30 PM CDT Nursing Assessment Head to Toe Head to Toe Assessment Shift Summary A/O x 4 with some forgetfulness. VSS. On RA. Pt reports mild NOWAK. PRN Tylenol administered with adequate relief. Neuro's remain intact. Denies numbness or tingling in extremities. Up in room independently and voiding without difficulty. Pt resting comfortably. Continue to monitor and treat per POC. Neurologic/Cognitive Within Defined Limits HEENT Within Defined Limits Cardiac Within Defined Limits Respiratory Within defined limits Neurovascular Within Defined Limits Gastrointestinal Within Defined Limits Stool Amount: small (12/03/21 1600) Stool Color: brown (12/03/21 1600) Stool Consistency: formed (12/03/21 1600) Genitourinary Within Defined Limits Musculoskeletal Within Defined Limits Integumentary Assessment Within Defined Limits except for: Skin Assessment Integrity - incision Patient Lines/Drains/Airways Status Active LDAs Name Placement date Placement time Site Days Peripheral IV 12/01/21 Left Antecubital 12/01/21 0000 -- 2 Psychosocial Within Defined Limits Nursing Assessment - Julio Weinstein RN - 12/03/2021 2:17 PM CDT Nursing Assessment Head to Toe Head to Toe Assessment Shift Summary Pt is alert and oriented. Able to communicate needs. Some difficulties of finding words during this shift, Independent in the room. Eating and drinking ok. Pt reported RUQ abdominal pain and mild headache, feelings of warmth and reddening of neck and chest area, vitals are stable. PRN MAALOX and tylenol given. updated. Neurologic/Cognitive Within Defined Limits HEENT Within Defined Limits Cardiac Within Defined Limits Respiratory Within defined limits Neurovascular Within Defined Limits Gastrointestinal Within Defined Limits Genitourinary Within Defined Limits Musculoskeletal Within Defined Limits Integumentary Assessment Within Defined Limits except for: Skin Assessment Color/Characteristics - bruised (ecchymotic) Patient Lines/Drains/Airways Status Active LDAs Name Placement date Placement time Site Days Peripheral IV 12/01/21 Left Antecubital 12/01/21 0000 -- 2 Psychosocial Within Defined Limits Nursing Assessment - Josh Verdugo RN - 12/03/2021 2:22 AM CDT Nursing Assessment Head to Toe Head to Toe Assessment Shift Summary Shift Summary Vitals: 12/02/21 2319 BP: 101/64 Pulse: 54 Resp: 18 Temp: 35.4 ??C (95.8 ??F) SpO2: 96% Pt remained alert and oriented , able to make needs known. Neuros unchanged and still has minimal expressive aphasia. Voiding ok did report had BM yesterday PM. So far, no other concerns. Ongoing facial flushes after IV decadron given but denies short of breath or signs of adverse reaction. Pt compliant with cares. Asleep, bed lowered, call light within reach. Will continue pt's plan of care. Josh Verdugo RN, 12/03/2021 5:06 AM Neurologic/Cognitive Assessment Within Defined Limits except for: Speech: Aphasia - expressive Comments: Minimal HEENT Within Defined Limits Cardiac Within Defined Limits Respiratory Within defined limits Neurovascular Within Defined Limits Gastrointestinal Within Defined Limits Genitourinary Within Defined Limits Musculoskeletal Within Defined Limits Integumentary Assessment Within Defined Limits except for: Patient Lines/Drains/Airways Status Active LDAs Name Placement date Placement time Site Days Peripheral IV 12/01/21 Left Antecubital 12/01/21 0000 -- 2 Psychosocial Within Defined Limits Nursing Assessment - Julio Weinstein RN - 12/02/2021 7:03 PM CDT Nursing Assessment Head to Toe Head to Toe Assessment Shift Summary Pt is alert and oriented. Able to communicate needs. No difficulty with words during this shift, Independent in the room. Eating and drinking ok. Reported feeling warm and burning on perineal area when IV dexamethasone was given, Face and neck area were red, vitals stable, MD paged for update. Neurologic/Cognitive Within Defined Limits HEENT Within Defined Limits Cardiac Within Defined Limits Respiratory Within defined limits Neurovascular Within Defined Limits Gastrointestinal Within Defined Limits Genitourinary Within Defined Limits Musculoskeletal Within Defined Limits Integumentary Assessment Within Defined Limits except for: Skin Assessment Color/Characteristics - bruised (ecchymotic) Patient Lines/Drains/Airways Status Active LDAs Name Placement date Placement time Site Days Peripheral IV 12/01/21 Left Antecubital 12/01/21 0000 -- 1 Psychosocial Within Defined Limits Nursing Assessment - Julio Weinstein RN - 12/02/2021 12:02 PM CDT Nursing Assessment Head to Toe Head to Toe Assessment Shift Summary Pt is alert and oriented. Able to communicate needs. Independent in the room. Eating and drinking ok. Denied pain and discomfort, neuro unchanged. Neurologic/Cognitive Within Defined Limits HEENT Within Defined Limits Cardiac Within Defined Limits Respiratory Within defined limits Neurovascular Within Defined Limits Gastrointestinal Within Defined Limits Genitourinary Within Defined Limits Musculoskeletal Within Defined Limits Integumentary Within Defined Limits Patient Lines/Drains/Airways Status Active LDAs Name Placement date Placement time Site Days Peripheral IV 12/01/21 Left Antecubital 12/01/21 0000 -- 1 Psychosocial Within Defined Limits Nursing Assessment - Jacquie Lazar RN - 12/02/2021 3:20 AM CDT Nursing Assessment Head to Toe Head to Toe Assessment Shift Summary A&O. V/S stable. RA. Up independently. Very little signs of expressive aphasia, just a few timesthe patient stumbled trying to find a word. She reports feeling like she has cleared mentally quite a bit. Denies pain. Reports voiding but no BM. Slept between cares. Continue to monitor and follow POC. Jacquie Lazar RN, 12/02/2021 7:20 AM Neurologic/Cognitive Assessment Within Defined Limits except for: Speech: Aphasia - expressive Comments: Brain mass. Very little expressive aphasia. Frequent Neuro Assessments have been documented in the flowsheets HEENT Within Defined Limits Cardiac Within Defined Limits Respiratory Within defined limits Neurovascular Within Defined Limits Gastrointestinal Within Defined Limits Genitourinary Within Defined Limits Musculoskeletal Within Defined Limits Integumentary Assessment Within Defined Limits except for: Skin Assessment Color/Characteristics - bruised (ecchymotic) Comments: Bump on forehead and bruising on forearm and ankle. Patient Lines/Drains/Airways Status Active LDAs Name Placement date Placement time Site Days Peripheral IV 12/01/21 Left Antecubital 12/01/21 0000 -- 1 Psychosocial Assessment Within Defined Limits except for: Psychosocial Assessment: Observed Patient Behaviors: Quiet/withdrawn and flat affect Verbalized Emotional State: Acceptance Family Behavior: not present Nursing Assessment - Josh Verdugo RN - 12/01/2021 7:17 PM CDT Nursing Assessment Head to Toe Head to Toe Assessment Shift Summary Shift Summary Vitals: 12/01/21 1524 BP: 108/69 Pulse: 70 Resp: 18 Temp: 37.1 ??C (98.7 ??F) SpO2: 95% Pt remained alert and oriented , able to make needs known. Neuros unchanged and still has minimal expressive aphasia. Voiding ok and still hasn't had any BM. C/o headache, PRN tylenol given with relief. So far, no other concerns. Pt compliant with cares. Asleep, bed lowered, call light within reach. Will continue pt's plan of care. Josh Verdugo RN, 12/01/2021 8:28 PM Neurologic/Cognitive Assessment Within Defined Limits except for: Speech: Aphasia - expressive Comments: Minimal HEENT Within Defined Limits Cardiac Within Defined Limits Respiratory Within defined limits Neurovascular Within Defined Limits Gastrointestinal Assessment Within Defined Limits except for: Additional GI Signs/Symptoms: constipation Genitourinary Within Defined Limits Musculoskeletal Within Defined Limits Integumentary Within Defined Limits Patient Lines/Drains/Airways Status Active LDAs Name Placement date Placement time Site Days Peripheral IV 12/01/21 Left Antecubital 12/01/21 0000 -- less than 1 Psychosocial Within Defined Limits Utilization Management - Petr Shaver MD - 12/01/2021 4:23 PM CDT .Guillermina Kelsey is a 51 y.o. female with finding episode, found to have acute relation of this. Concerning for malignancy neurosurgery evaluating. Serial neuro checks. IP appropriate Nursing Assessment - Josh Verdugo RN - 12/01/2021 9:40 AM CDT Nursing Assessment Head to Toe Head to Toe Assessment Shift Summary Shift Summary Vitals: 12/01/21 0729 BP: 105/68 Pulse: 67 Resp: 18 Temp: 36.1 ??C (97 ??F) SpO2: 95% Lactose free diet Minimal expressive aphasia no acute events Pt remained alert and oriented x4, able to make need known, uses jordyn light, VSS, on RA. Neuro unchanged with minimal expressive aphasia and reports ongoing tinnitus. Denies pain/discomfort. Pt and pt'smom wanted to relay info that around 5-7 years ago, pt had MRI for her tinnitus, partha HUGHES. Pt independent with cares. Diet appropriate this shift. Voiding ok, passing gas but hasn't had BM yet. So far, no other concerns, pt complaint with cares, bed lowered, call light within reach, will continue pt's plan of care. Josh Verdugo RN, 12/01/2021 1:43 PM Neurologic/Cognitive Assessment Within Defined Limits except for: Speech: Aphasia - expressive Comments: Minimal HEENT Within Defined Limits Cardiac Assessment Within Defined Limits except for: [employer] - bedside telemetry ECG Rhythm: normal sinus rhythm Respiratory Within defined limits Neurovascular Within Defined Limits Gastrointestinal Within Defined Limits Genitourinary Within Defined Limits Musculoskeletal Within Defined Limits Integumentary Within Defined Limits Patient Lines/Drains/Airways Status Active LDAs Name Placement date Placement time Site Days Peripheral IV 12/01/21 Left Antecubital 12/01/21 0000 -- less than 1 Psychosocial Within Defined Limits Nursing Assessment - Jacquie Lazar RN - 12/01/2021 2:26 AM CDT Nursing Assessment Head to Toe Head to Toe Assessment Shift Summary Patient sleepy but arousable beginning of the shift and more awake the 2nd half of the night. Was disoriented to place and situation and responses to some questions were nonsensical at 0000 until reoriented and after conversing with filing writer for a short while was more appropriate. At 0400 patient was alert, only had a few brief episodes of expressive aphasia. She was able to express what caused her admission and is aware of her situation. V/S stable. RA. Denies pain. Steady gait. No neuromuscular deficits noted. Voiding without difficulty. Drinking juice. Independently repositions. Sleeping between cares. Continue to monitor and follow POC. Jacquie Lazar RN, 12/01/2021 6:23 AM Neurologic/Cognitive Assessment Within Defined Limits except for: Orientation: disoriented to situation and disoriented to place Speech: Aphasia - expressive Comments: Brain mass. Word finding difficulty. Patient's communication improves with longer conversations. Appropriate after reminded of situation and place. Frequent Neuro Assessments have been documented in the flowsheets HEENT Within Defined Limits Cardiac Within Defined Limits Respiratory Within defined limits Neurovascular Within Defined Limits Gastrointestinal Within Defined Limits Genitourinary Within Defined Limits Musculoskeletal Within Defined Limits Integumentary Assessment Within Defined Limits except for: Skin Assessment Color/Characteristics - bruised (ecchymotic) Comments: Bump on forehead and bruising on forearm and ankle. Patient Lines/Drains/Airways Status Active LDAs Name Placement date Placement time Site Days Peripheral IV 12/01/21 Left Antecubital 12/01/21 0000 -- less than 1 Psychosocial Assessment Within Defined Limits except for: Psychosocial Assessment: Observed Patient Behaviors: Quiet/withdrawn and flat affect Verbalized Emotional State: Acceptance Family Behavior: not present Utilization Management - Kelly Cartwright RN - 11/30/2021 9:03 PM CDT Admission Criteria Not Met MD Admitting DX: sided brain mass Reason Not Met: meets inpatient, unable to locate criteria to match Nursing Assessment - Susana Taylor RN - 11/30/2021 8:34 PM CDT Nursing Assessment Head to Toe Head to Toe Assessment Shift Summary Shift Summary Pt arrived around 1800 from [place], [place] following a full at home last evening and discovery of a left brain mass. Expressive asphasia evident, but no neuromuscular abnormalities. Pt denies pain. Ambulated to bathroom with steady gait. Going to MRI. Will continue neuro monitoring and prepare for probable OR on Friday. Susana Taylor RN, 11/30/2021 8:37 PM Neurologic/Cognitive Assessment Within Defined Limits except for: Speech: Aphasia - expressive HEENT Within Defined Limits Cardiac Within Defined Limits Respiratory Within defined limits Neurovascular Within Defined Limits Gastrointestinal Within Defined Limits Genitourinary Within Defined Limits Musculoskeletal Within Defined Limits Integumentary Assessment Within Defined Limits except for: Skin Assessment Color/Characteristics - bruised (ecchymotic) Comments: Left forehead bump and right AC bruise Patient Lines/Drains/Airways Status Active LDAs None Psychosocial Assessment Within Defined Limits except for: Psychosocial Assessment: Observed Patient Behaviors: Quiet/withdrawn and flat affect documented in this encounter Plan of Treatment Not on filedocumented as of this encounter Procedures Procedure Name Priority Date/Time Associated Comments Diagnosis POC GLUCOSE Routine 12/06/2021 5:54 Results for this PM CDT procedure are i n the results section. POC GLUCOSE Routine 12/06/2021 11:52 Results for this AM CDT procedure are i n the results section. PANEL BASIC METABOLIC Routine 12/06/2021 5:25 Re sults for this (BMP) AM CDT procedure are i n the results section. PC FREE STANDING Routine 12/06/2021 5:25 Results for this BLOOD DRAW BY AM CDT procedure are in VENIPUNCTURE the results section. CT HEAD NO IV Timed 12/05/2021 5:59 Results fo r this CONTRAST PM CDT procedure are i n the results section. POC GLUCOSE Routine 12/05/2021 5:14 Results for this PM CDT procedure are i n the results section. PC TISSUE EXAM BY STAT 12/05/2021 3:47 Result s for this PATHOLOGIST PM CDT procedure are i n the results section. CRANIOTOMY WITH OPEN Urgent (< 48 12/05/2021 1:00 Brain mass BIOPSY WITH STEALTH hrs) PM CDT PC LAB TEST STAT 12/05/2021 6:36 Re sults for this AM CDT procedure are i n the results section. COVID-19 SURVEILLANCE STAT 12/05/2021 6:30 Re sults for this AM CDT procedure are i n the results section. PC LAB CBC W/DIFF & Routine 12/05/2021 4:58 Resu lts for this PLT AM CDT procedure are i n the results section. PROTHROMBIN (PT) & Routine 12/05/2021 4:58 Resul ts for this INR AM CDT procedure are i n the results section. PANEL BASIC METABOLIC Routine 12/05/2021 4:58 Re sults for this (BMP) AM CDT procedure are i n the results section. PC ANTIBODY Routine 12/05/2021 4:58 Results for this SCREEN,RBC,EACH SERUM AM CDT proced ure are in TECHNIQUE the results section. PC LAB RH TYPE GEL Routine 12/05/2021 4:58 Resul ts for this AM CDT procedure are i n the results section. ECH TRANSTHOR (TTE) Routine 12/04/2021 10:52 Resu lts for this COMPLETE WITH AM CDT procedure are in CONTRAST the results section. PC LAB AMPA-R AB CBA STAT 12/03/2021 7:15 Res ults for this PM CDT procedure are i n the results section. PC LAB INTERLEUKEN 2 STAT 12/03/2021 7:15 Res ults for this RECEPTOR (CD25) PM CDT procedure ar e in SOLUBLE the results section. PC FREE STANDING Routine 12/03/2021 7:15 Results for this BLOOD DRAW BY PM CDT procedure are in VENIPUNCTURE the results section. XR NEEDLE PLACEMENT - Routine 12/03/2021 3:07 Re sults for this SPINE PM CDT procedure are i n the results section. PF SPINAL Routine 12/03/2021 3:06 Results for this PUNCTURE,LUMBAR,DIAGN PM CDT proced ure are in OSTIC the results section. CYTOLOGY NON-CONSTRUCTION PROJECT COORDINATOR Routine 12/03/2021 2:48 Results for this SPECIMEN PM CDT procedure are i n the results section. PROTEIN, CSF Routine 12/03/2021 2:48 Results for this PM CDT procedure are i n the results section. PC OLIGOCLONAL Routine 12/03/2021 2:48 Results f or this IMMUNOGLOBULIN PM CDT procedure are in the results section. MISCELLANEOUS LAB Routine 12/03/2021 2:48 Result s for this PM CDT procedure are i n the results section. GLUCOSE, CSF Routine 12/03/2021 2:48 Results for this PM CDT procedure are i n the results section. PC SMEAR, ROSELIA SOURCE, Routine 12/03/2021 2:48 Re sults for this WITH INTERPRETATION PM CDT procedur e are in (GRAM STAIN) the results section. PC CELL Routine 12/03/2021 2:48 Results for this COUNT,MICS.BODY PM CDT procedure ar e in FLUIDS,EXCEPT the results BLOOD,W-DIFF. CT. section. PC FLOWCYTOMETRY/TC, Routine 12/03/2021 1:10 Res ults for this ADD-ON PM CDT procedure are i n the results section. PC CYTOPATH, STAT 12/03/2021 1:10 Results for this CONCENTRATE TECH PM CDT procedure a re in the results section. PC HEPATITIS C Routine 12/03/2021 6:41 Results f or this AM CDT procedure are i n the results section. PC HIV-1 AG W/HIV-1 & Routine 12/03/2021 6:41 Re sults for this HIV-2 AB AM CDT procedure are i n the results section. HEPATITIS B SURFACE Routine 12/03/2021 6:41 Resu lts for this ANTIGEN AM CDT procedure are i n the results section. HEPATITIS B SURFACE Routine 12/03/2021 6:41 Resu lts for this ANTIBODY AM CDT procedure are i n the results section. CT CHEST/ABD/PELVIS Routine 12/01/2021 9:13 Resu lts for this W/IV CONT AM CDT procedure are i n the results section. PROTHROMBIN (PT) & Routine 12/01/2021 12:28 Resul ts for this INR AM CDT procedure are i n the results section. PANEL BASIC METABOLIC Routine 12/01/2021 12:28 Re sults for this (BMP) AM CDT procedure are i n the results section. PC LAB CBC/PLT Routine 12/01/2021 12:28 Results f or this AM CDT procedure are i n the results section. PC ANTIBODY Routine 12/01/2021 12:28 Results for this SCREEN,RBC,EACH SERUM AM CDT proced ure are in TECHNIQUE the results section. PC LAB PTT Routine 12/01/2021 12:28 Results for this AM CDT procedure are i n the results section. PC LAB RH TYPE GEL Routine 12/01/2021 12:28 Resul ts for this AM CDT procedure are i n the results section. MR BRAIN W/O + WITH Routine 11/30/2021 9:15 Resu lts for this CONTRAST PM CDT procedure are i n the results section. documented in this encounter Results (ABNORMAL) POC GLUCOSE (12/06/2021 5:54 PM CDT) athologist Signature POC Glucose 124 (H) 70 - 100 [facility] mg/dL CAMPUS - POINT OF CARE Specimen (Source) Anatomical Collection Method Collection Time Re ceived Time Location / / Volume Laterality Blood 12/06/2021 5:54 PM CDT Korin Blanco MD LABORATORY Performing Organization Address City/[facility]/ZIP Code Phon e Number [facility] - POINT OF CARE [address] [place] [address] (ABNORMAL) POC GLUCOSE (12/06/2021 11:52 AM CDT) athologist Signature POC Glucose 146 (H) 70 - 100 [facility] mg/dL CAMPUS - POINT OF CARE Specimen (Source) Anatomical Collection Method Collection Time Re ceived Time Location / / Volume Laterality Blood 12/06/2021 11:52 AM CDT Korin Blanco MD LABORATORY Performing Organization Address City/[facility]/ZIP Code Phon e Number [facility] - POINT OF CARE [address] [place] [id number] (ABNORMAL) PANEL BASIC METABOLIC (BMP) (12/06/2021 5:25 AM CDT) athologist Signature Sodium 133 (L) 135 - 148 [facility] mEq/L Potassium 4.1 3.5 - 5.3 [facility] mEq/L Chloride 100 92 - 108 [facility] mEq/L CO2 23 22 - 30 [facility] mEq/L AnGap 10 8 - 16 [facility] mEq/L Glucose 128 (H) 70 - 100 [facility] mg/dL BUN 18 6 - 20 [facility] mg/dL Creatinine 0.61 0.50 - 1.00 [facility] mg/dL Calcium 8.9 8.6 - 10.0 [facility] mg/dL eGFR, High >120 >=60 [facility] ml/min/1.73 m2 Comment: Calculated using CKD-EPI equati on eGFR, Low 105 >=60 ml/min/1.73m2 [facility] Comment: Calculated using CKD-EPI equati on Specimen Anatomical Collection Method Collection Time Receive d Time (Source) Location / / Volume Laterality Blood 12/06/2021 5:25 12/06/2021 AM CDT 5:53 AM CDT Jimena Allison PA-C LABORATORY Performing Organization Address City/State/ZIP Code Phon e Number [facility] [place] [address] (ABNORMAL) CBC WITH PLATELET (12/06/2021 5:25 AM CDT) P athologist Signature WBC 18.50 (H) 4.00 - [facility] 10.00 k/cmm RBC 3.88 (L) 3.90 - 5.20 [facility] m/cmm Hgb 11.3 (L) 11.5 - 15.7 [facility] g/dL Hematocrit 34.7 34.0 - 45.0 [facility] % MCV 89.4 80.0 - [facility] 100.0 fL MCH 29.1 25.0 - 32.0 [facility] pg MCHC 32.6 31.0 - 36.0 [facility] g/dL RDW 13.4 11.5 - 14.5 [facility] % Plt 301 150 - 400 [facility] k/cmm MPV 10.6 6.5 - 12.5 [facility] fL Specimen Anatomical Collection Method Collection Time Receive d Time (Source) Location / / Volume Laterality Blood 12/06/2021 5:25 12/06/2021 AM CDT 5:43 AM CDT Jimena Allison PA-C LABORATORY Performing Organization Address City/State/ZIP Code Phon e Number [facility] [place] [address] HEAD NO IV CONTRAST (12/05/2021 5:59 PM CDT) Anatomical Region Laterality Modality Skull Computed Tomography Specimen (Source) Anatomical Collection Method Collection Time Re ceived Time Location / / Volume Laterality 12/05/2021 6:28 PM CDT Impressions 12/05/2021 7:28 PM CDT Impression: 1. New postoperative changes of left fro ntoparietal cranioplasty and biopsy. Small 2 mm subdural fluid collection deep to the cranioplasty flap and small amount of pneumocephalus likely postprocedural nature. 2. Small intraparenchymal hemorrhage in the area of biopsy measuring 6 mm. 3. Unchanged 3 mm of owng-fs-umafp midli ne shift. 4. Vague hypodense masslike area left te mporoparietal junction and left thalamus better characterized on prior MRI Jimena Allison was contacted by Vignesh Fowler at 7:03PM on 12/05/21 and made aware of the above finding If you are the patient, and wish to disc uss this report with a radiologist, please call [phone] between 8 am and 4 pm on regular working days. I have personally reviewed the image(s) and initial interpretation, and I agree with the findings as documented by the resident/fellow. Reading Radiologist: Kinjal Jenkins Resident: Vignesh Fowler Narrative 12/05/2021 7:28 PM CDT Indication: Post op biopsy ??. Comparison: MRI 11/30/2021 Technique: Axial thin section CT images through the brain were obtained from the base of the skull through the vertex without intravenous contrast and reviewed in brain, bone and subdural windows. Dose Total DLP = 1225.2 mGy.cm. ?? Findings: Postoperative changes of left temporoparietal cranioplasty and biopsy. There is a small 2 mm fluid collection deep to the cranioplasty flap and small amount of pneumocephalus which is likely p ostprocedural in nature. Additionally th ere is a small intraparenchymal hemorrhage in the area of biopsy measuring 6 mm (series 201 image 26). There is no mass effect related to the hemorrhage. Unchange d 3 mm of gngd-er-nzdiv midline shift. H ypodense masslike at the left temporoparietal junction better characterized on prior MRI. The ventricles and sulci appear appropriate for age. Dowd-white differen tiation is normal throughout both cerebr al hemispheres. The visualized portions of the paranasal sinuses and the mastoid air cells are clear. Procedure Note Kinjal Jenkins MD - 12/05/2021 Indication: Post op biopsy . Comparison: MRI 11/30/2021 Technique: Axial thin section CT images through the brain were obtained from the base of the skull through the vertex without intravenous contrast and reviewed in brain, bone and subdural windows. Dose Total DLP = 1225.2 mGy.cm. Findings: Postoperative changes of left temporoparietal cranioplasty and biopsy. There is a small 2 mm fluid collection deep to the cranioplasty flap and small amount of pneumocephalus which is likely postprocedural in nature. Additionally there is a small in traparenchymal hemorrhage in the area of biopsy measuring 6 mm (series 201 image 26). There is no mass effect related to the hemorrhage. Unchanged 3 mm of qvyv-mi-ztjxr midline shift. Hypodense masslike at the left te mporoparietal junction better characterized on prior MRI. The ventricles and sulci appear appropriate for age. Dowd-white differentiation is normal throughout both cerebral hemispheres. The visualized portions of the paranasal sinuses and the mastoid air cells are clear. IMPRESSION Impression: 1. New postoperative changes of left fro ntoparietal cranioplasty and biopsy. Small 2 mm subdural fluid collection deep to the cranioplasty flap and small amount of pneumocephalus likely postprocedural nature. 2. Small intraparenchymal hemorrhage in the area of biopsy measuring 6 mm. 3. Unchanged 3 mm of puqx-ma-cgnhj midli ne shift. 4. Vague hypodense masslike area left te mporoparietal junction and left thalamus better characterized on prior MRI Jimena Allison was contacted by Vignesh Fowler at 7:03PM on 12/05/21 and made aware of the above finding If you are the patient, and wish to disc uss this report with a radiologist, please call [phone] between 8 am and 4 pm on regular working days. I have personally reviewed the image(s) and initial interpretation, and I agree with the findings as documented by the resident/fellow. Reading Radiologist: Kinjal Jenkins Reading Resident: Vignesh Fowler Korin Blanco MD CT NEURO (ABNORMAL) POC GLUCOSE (12/05/2021 5:14 PM CDT) athologist Signature POC Glucose 130 (H) 70 - 100 [facility] mg/dL [facility] - POINT OF CARE Specimen (Source) Anatomical Collection Method Collection Time Re ceived Time Location / / Volume Laterality Blood 12/05/2021 5:14 PM CDT Korin Blanco MD LABORATORY Performing Organization Address City/State/ZIP Code Phon e Number [facility] POINT OF CARE [address] [place] [address] SURGICAL PATHOLOGY (12/05/2021 3:47 PM CDT) Component Value Ref Test Analysis Performed Pathologis t Range Method Time At [facility] SURG PATH ?Surgical Pathology Report [facility] FINAL Collection Date: ?12/05/2021 15:19 CDT ?Ordering Physician: ? DARINEL DUNLAP Received Date: ?12/05/2021 15:26 CDT ?Accession Number: ? 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 Addendum electronically signed by Dr. Lamonte Redmond * ??Report Electronically Signed By ??* ?? Renetta Warner M.D. ?? 02.06.2022 16:58 ?SP Addendum Addended Ancillary Studies: NGS sequencing did NOT detec t any IDH1 and IDH2 mutations, thus the tumor is IDH wildtype. Further molecular testing i s pending for the final grading of the tumor. MGMT gene methylation is NEGATIVE. Addendum electronically signed by Lamonte Redmond MD GLIOMA PANEL FOCUSED NG (Final result) Significant Results Detected Alterations of Known or Potential Pathogenicity: No ne Detected Alterations of Uncertain Significance: None Genes with No Detected Clini mirna Significant Alterations: BRAF, IDH1, IDH2, PTEN, TP53 Interpretation No mutations were identified in the analyzed genes (see pane l list above). Wildtype status for IDH1/2 i n grade 2 or grade 3 diffuse glioma is a negative prognostic factor for overall survival [1]. Concurrent MGMT methylation analysis is negative for this sample (please see [id number] for full report and interpretation). Correlation with clinical in formation, morphologic findings, and other diagnostic tests is indicated. References: 1. Terell DOMINIQUE, Erick RG, Ranjan KD, et al N Engl J Med. 2015;372(24):5227-89. ?Surgical Pathology Report Collection Date: ?12/05/2021 15:19 CDT ?Ordering Physician: ? DARINEL DUNLAP Received Date: ?12/05/2021 15:26 CDT ?Accession Number: ? [id number] Addended Ancillary Studies: Please see the patient's medical records for the complete sc anned report. * ??Report Electronically Signed By ??* ?? NORBERTO ACEVEDO MD ?? 01.10.2022 9:15 ?SP Addendum Addended Ancillary Studies: Received on 12/26/21 is a an cillary report from Dr. Kofi Aleman of the [facility], [facility], [address] [facility], [facility] [address] [address]. MGMT PROMOTER METHYLATION (Final result) RESULTS MGMT promoter methylation: NEGATIVE METHODOLOGY Tumor tissue is macroenriche d from paraffin slides, DNA is extracted, quantitated, and treated with bisulfite. Quantitativ e PCR amplification of MGMT using methylation specific primers is compared to the internal co ntrol COL2A 1 in the patient's sample and a known methylated DNA control. Quantification of methylated MGMT is accomplished through generation of a standard curve and calculation of a Percent Methylation Ratio (PMR) following the published [employer] procedure. PMR values great er than or equal to 2 are interpreted as positive, PMR values of 0.1-1.9 are interpreted as low positive, and PMR = 0 is interpreted as negative. Limitations: The test is designed to dete ct methylation only in the areas covered by the primers utilized in this assay. Adjacent genomi c regions may contain abnormalities that would not be detected. Tumor cellularity, intra-tumoral heterogeneity, and the quality of extracted DNA from FFPE samples may impact the accuracy of resu lts. The dynamic range of this assay can detect a minimum relative fraction of 3% methylated a lleles in the background of 97% unmethylated alleles; however, a minimum of 25% tumor cells by morphology is recommended to ensure clinical accuracy. Negative results do not rule out the presence of methylation at other sites within the MGMT CpG island. INTERPRETATION This patient's sample is Negative for MGMT promoter methylat ion. Electronically signed by: Kofi Aleman M.D. COMMENTS No evidence of MGMT promoter methylation was detected in this specimen. Patients with glioblastomas harboring unm ethylated MGMT have a worse overall prognosis and do not appear to derive significant benef it from alkylating chemotherapy regimens (such as temozolomide). Correlation with morphology , laboratory and clinical findings is recommended. The results of this assay should not be us ed as the only criteria for selection of alkylating chemotherapy. Please see the patient's [facility] medical records for the complete scanned report. * ??Report Electronically Signed By ??* ?? NORBERTO ACEVEDO MD ?? 12.28.2021 8:00 ? Surgical Pathology Final Report Specimen Type: A. Brain, left mass, biopsy B. Brain, left mass, excision Final Diagnosis: Final Diagnosis by Dr. Lamonte Redmond: ?Surgical Pathology Report Collection Date: ?12/05/2021 15:19 CDT ?Ordering Physician: ? DARINEL DULNAP Received Date: ?12/05/2021 15:26 CDT ?Accession Number: ? [id number] Final Diagnosis: A. 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 See comment. B. 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 See comment. 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 Molecular testing for TERT promoter mutation, EGFR amplification, + 7/-10 chromosome copy number changes are strongly recomm ended, in fact necessary, for appropriate grading of the tumor. MGMT gene methylation results will be reported in an addendum. * ??Report Electronically Signed By ??* ?? NORBERTO ACEVEDO MD ?? 12.19.2021 8:36 Final Diagnosis Comment: Received on 12/18/21 is a re port from ?Lamonte Redmond of the [facility], [address] [address], [address] [place] [address] regarding an external consultation of this case material requested by Dr. Warner. The compensation consultant's diagnosis i s reflected in the final diagnosis field. Please see the complete consultation report within this patient's medical record. Clinical History: Clinical Diagnosis: Brain mass CA/CA 12.06.2021 12:11 Gross Description: A. ??The specimen is receive d fresh from the Operating Room for intraoperative consultation, labeled with the patient's name and hospital ID number. ??The specimen is designated on the container as left brain ma ss. ??The specimen consists of a 0.6 x 0.4 x 0.2 cm aggregate of irregular yepez-pink portions of soft tissue. ??Touch imprints are prepared and analyzed by Dr. Acevedo. ??The remaining spe cimen is entirely submitted for frozen section analysis on 1 aftab, with the residual frozen ti ssue subsequently submitted for permanent section in 1 cassette.( ? [facility]) B. ??The specimen is receive d in formalin, labeled with the patient's name and hospital ID number. ??The specimen is designate d on the container as left brain mass. ??The specimen consists of 9 irregular ??yepez-pink to dus ky yepez-red portions of soft tissue that range in size from 0.2 x 0.2 x 0.2 cm up to 0.7 x 0.5 x 0. 3 cm. ??The specimen is entirely submitted in 2 cassettes.( ? [facility] [place] CA/CA 12.06.2021 12:11 Microscopic Description: A,B - Microscopic examinatio n performed by ?Lamonte Redmond and the findings are reflected in the final diagnosis. 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 No microvascular proliferation or necrosis i s identified. Immunohistochemical stains performed on block #B1 show the neoplastic cells a re positive for OLIG2, ATRX (retained); negative for IDH1 R132H. Immunostains performed at [facility] show the neoplastic cells are positive for p53 (scattered) and the proliferation index ki-67 is moderately elevated, est imated at 20-30%. SC/SC 12.06.2021 12:11 Specimen Anatomical Collection Method Collection Time Receive d Time (Source) Location / / Volume Laterality AP SPECIMEN 12/05/2021 3:47 12/05/2021 PM CDT 3:56 PM CDT Comment: Brain, left mass, biopsy Narrative This result has an attachment that is no t available. Darinel Dunlap MD LAB PATHOLOGY Performing Organization Address [facility] Code Phon e Number [facility] [place] [address] TEST URINE (12/05/2021 6:36 AM CDT) athologist Signature Ur Negative Negative [facility] UPT performed [facility] at Comment: Test performed at: [facility] [address] [place] [id number] Specimen Anatomical Collection Method Collection Time Receive d Time (Source) Location / / Volume Laterality Urine 12/05/2021 6:36 12/05/2021 AM CDT 6:58 AM CDT Narrative [facility] - 12/05/2021 7:53 AM CDT Needs for surgery today if has had mense s in last year. Korin Blanco MD LABORATORY Performing Organization Address [facility] Phon e Number [facility] [place] [address] COVID-19 SURVEILLANCE (12/05/2021 6:30 AM CDT) Patholo gist Method Time Signature COVID-19 Not Detected Not Detected [facility] Comment: This assay is an RT-PCR FDA craig roved test. Specimen (Source) Anatomical Collection Method Collection Time Re ceived Time Location / / Volume Laterality Nasopharyngeal Swab 12/05/2021 6:30 04/10/2021 AM CDT 6:31 AM CDT Narrative [facility] - 12/05/2021 7:20 AM CDT Preferred specimen is Nasopharyngeal swab Is the patient a healthcare employee: No Is the patient a [employer] ([employer] [facility] [employer]) Employee : No Korin Blanco MD LABORATORY Performing Organization Address City/[facility]/ZIP Code Phon e Number [facility] [place] [address] ANTIBODY SCREEN (12/05/2021 4:58 AM CDT) athologist Signature Mónica Screen Negative [facility] Specimen Anatomical Collection Method Collection Time Receive d Time (Source) Location / / Volume Laterality Blood 12/05/2021 4:58 12/05/2021 AM CDT 5:29 AM CDT Korin Blanco MD LAB TRANSFUSION SERVICES Performing Organization Address [facility]/ZIP Code Phon e Number [facility] [place] [address] BLOOD TYPING-ABO/RH (12/05/2021 4:58 AM CDT) athologist Signature ABORHG O NEG [facility] Specimen Anatomical Collection Method Collection Time Receive d Time (Source) Location / / Volume Laterality Blood 12/05/2021 4:58 12/05/2021 AM CDT 5:29 AM CDT Korin Blanco MD LAB TRANSFUSION SERVICES Performing Organization Address City/[facility]/ZIP Code Phon e Number [facility] [place] [address] PROTHROMBIN (PT) & INR (12/05/2021 4:58 AM CDT) athologist [facility] PT 11.4 9.0 - 12.5 [facility] sec INR 1.0 0.8 - 1.1 [facility] Specimen Anatomical Collection Method Collection Time Receive d Time (Source) Location / / Volume Laterality Blood 12/05/2021 4:58 12/05/2021 AM CDT 5:43 AM CDT Korin Blanco MD LABORATORY Performing Organization Address City/[facility]/ZIP Code Phon e Number [facility] [place] [address] (ABNORMAL) PANEL BASIC METABOLIC (BMP) (12/05/2021 4:58 AM CDT) athologist Signature Sodium 140 135 - 148 [facility] mEq/L Potassium 3.9 3.5 - 5.3 [facility] mEq/L Chloride 107 92 - 108 [facility] mEq/L CO2 27 22 - 30 [facility] mEq/L AnGap 6 (L) 8 - 16 [facility] mEq/L Glucose 91 70 - 100 [facility] mg/dL BUN 29 (H) 6 - 20 [facility] mg/dL Creatinine 0.84 0.50 - 1.00 [facility] mg/dL Calcium 8.7 8.6 - 10.0 [facility] mg/dL eGFR, High 93 >=60 [facility] ml/min/1.73 m2 Comment: Calculated using CKD-EPI equati on eGFR, Low 81 >=60 ml/min/1.73m2 [facility] Comment: Calculated using CKD-EPI equati on Specimen Anatomical Collection Method Collection Time Receive d Time (Source) Location / / Volume Laterality Blood 12/05/2021 4:58 12/05/2021 AM CDT 5:48 AM CDT Korin Blanco MD LABORATORY Performing Organization Address City/State/ZIP Code Phon e Number [facility] [place] [address] CBC WITH PLTS/AUTO DIFF (12/05/2021 4:58 AM CDT) P athologist Signature WBC 7.60 4.00 - [facility] 10.00 k/cmm RBC 3.93 3.90 - [facility] 5.20 m/cmm Hgb 11.7 11.5 - [facility] 15.7 g/dL Hematocrit 36.5 34.0 - [facility] 45.0 % MCV 92.9 80.0 - [facility] 100.0 fL MCH 29.8 25.0 - [facility] 32.0 pg MCHC 32.1 31.0 - [facility] 36.0 g/dL RDW 13.8 11.5 - [facility] 14.5 % Plt 266 150 - 400 [facility] k/cmm MPV 10.8 6.5 - 12.5 [facility] fL Automated Abs 3.46 1.70 - [facility] Neutrophil 6.50 k/cmm Comment: Preliminary ANC, Final Result t o Follow Abs Immature Granulocyte 0.04 0.00 - 0.09 k/cmm [facility] Comment: The Immature Granulocyte Absolu te count contains metamyelocytes and myelocytes. Abs Neutrophil 3.46 1.70 - 6.50 k/cmm [facility] B Abs Lymphocyte 3.47 0.80 - 4.00 k/cmm [facility] Abs Monocyte 0.41 0.20 - 1.00 k/cmm [facility] Abs Eosinophil 0.19 0.00 - 0.60 k/cmm [facility] B Abs Basophil 0.03 0.00 - 0.20 k/cmm [facility] Specimen Anatomical Collection Method Collection Time Receive d Time (Source) Location / / Volume Laterality Blood 12/05/2021 4:58 12/05/2021 AM CDT 5:52 AM CDT Korin Blanco MD LABORATORY Performing Organization Address City/State/ZIP Code Phon [place] [address] TRANSTHOR (TTE) COMPLETE WITH CONTRAST (12/04/2021 10:52 AM CDT) P athologist Signature AoV root 3 cm [facility] AoV int. 36.7 m/s [facility] mnAoV grad. 7 mmHg [facility] AoV peak 11.02 mmHg [facility] Aov area 3.31 cm2 [facility] I.mikayla sept. 0.99 cm [facility] left atri. 4.5 cm [facility] LV E diast 4.45 cm [facility] LV wall 0.94 cm [facility] LV E syst 2.39 cm [facility] LVEF Calc 64.89 % [facility] LVOT diam 2.1 cm [facility] LVOT int 35.1 m/s [facility] E wave / A 1.13 [facility] wave MV T 1/2 65 msec [facility] MVA catie 1.03 m/s [facility] MVE catie 1.16 m/s [facility] mitrl area 3.38 cm2 [facility] TDI E' catie 0.0696 m/s [facility] TR GRAD 24.2064 mmHg [facility] FS 46.29 % [facility] LVOT peak 10 mmHg [facility] LVOT mn 5 mmHg [facility] heart rate 63 bpm [facility] BPS 118 mmHg [facility] BPD 75 mmHg [facility] LAvol IDX 25 ml/m2 [facility] 012SF True [facility] 010 True [facility] 009 True [facility] 013 True [facility] 381 True [facility] 025 True [facility] CONTRAST True [facility] 014SF True [facility] 902NO True [facility] 920NO True [facility] 018SF True [facility] 026SF True [facility] 020SF True [facility] 780ON True [facility] Specimen (Source) Anatomical Collection Method Collection Time Re ceived Time Location / / Volume Laterality 12/03/2021 12:17 PM CDT Narrative [facility] - 12/04/2021 12:00 AM CDT Report Status:Finalized Transthoracic Echocardiography Report (T TE) Demographics Patient Name ?COLLING GUILLERMINA Height ?65.51 Inches Patient Number ?[id number] ?Weig ht ?207.68 Pounds Date of ? 1970 ?? BSA ? 2.02 m^2 Age ? 51 ? Tape Number Gender ?Female ? Study Date ?12/04/2021 08:58 AM Water Valve Repairer ? [facility] ?[facility] Physician ??TESFAYE LANGLEY Referring ?Interpreting ?Erick aSldana MD Physician ?Physician ? [id number] Type of Study: TTE procedure: 2D echocardiogram, M-Mode , Doppler , Color Doppler, Contrast study, ECH TRANSTHORACIC ECHO ( TTE), Myocardial Strain Imaging HR: 63 bpmBP: 118/75 mmHgPatient Status: Routine Study Location: [id number] Quality: G ood visualization Contrast Medium: Definity. Amount - 0.5 ml Indications Indications for Study:Cardiac Tumor / Ma ss. CONCLUSIONS SUMMARY The estimated left ventricular ejection fraction is 65 %. There is no left ventricular wall motion abnormality identified. The estimated pulmonary artery systolic pressure is 24 mmHg + RA pressure. 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 The average global longitudinal strain i s normal (<= -16%) at -23.9 %. Strain calculated using a Gustavo Epiq C Vx . Normal right ventricular size and functi on. Normal left ventricular cavity size. Normal estimated left ventricular ejecti on fraction . No wall motion abnormality . ADDITIONAL REMARKS No previous echocardiogram for compariso n. Diastolic indices for assessment of LV d iastolic function are inconclusive No intracardiac mass identified Normal LV strain No significant valve disease. Signature Electronically signed by Erick Saldana MD [id number](Interpreting physician) on 2021 01:28 PM Valves Mitral Valve Area (PHT): 3.38 cm^2 Peak E-Wave: 1.2 m/s ?Deceleration Time: 223 msec Peak A-Wave: 1 m/s Peak Gradient: 5.38 mmHg ?E/A Ratio: 1.13 P1/2t: 65 msec Tissue Doppler E' Medial Velocity: 0.07 m/s E' Lateral Velocity: 0.097 m/s Mitral Valve Summary Normal mitral valve structure without ev idence for significant regurgitation. Aortic Valve Peak Velocity: 1.7 m/s ?Area (continuity): 3.31 cm^2 Peak Gradient: 11.02 mmHg ? Mean Velocity: 1.2 m/s Mean Gradient: 7 mmHg AV VTI: 36.7cm Aortic Valve Summary Trileaflet aortic valve with no evidence for significant regurgitation. 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 Tricuspid Valve TR Velocity: 2.5 m/s TR Gradient: 24.2064 mmHg Tricuspid Valve Summary Tricuspid valve insufficiency 1+. Pulmonic Valve Pulmonic Valve Summary Normal pulmonic valve structure without evidence for significant regurgitation. LVOT Peak Velocity: 1.6 m/s ? Mean Velocity: 1.1 m/s Peak Gradient: 10 mmHg ? Mean Gradient: 5 mmHg LVOT Diameter: 2.1 cm ?LVOT VTI: 35.1cm Structures Left Atrium LA Dimension: 4.5 cm ?LA Area: 18.8 cm^2 LA/Aorta: 1.5 ? LA Volume Index: 25ml/m^2 Left Atrium Summary Normal left atrial size. Left Ventricle Diastolic Dimension: 4.45 cm ?Sys tolic Dimension: 2.39 cm Septum Diastolic: 0.99 cm PW Diastolic: 0.94 cm ? Area Systolic: 20.1 cm^2 Area Diastolic: 39.4 cm^2 EF Calculated: 64.89% ? CI: 3.79 l/min*m^2 CO: 7.66 l/min LV EDV/LV EDV Index: 133 ml/66 m^2 FS: 46.29 % ? LV ESV/LV ESV Index: 46.7 ml/23 m^2 LV Length: 9.1 cm LVOT Diameter: 2.1 cm Stroke Volume: 121.51 ml Global Longitudinal Strain: -23.9 % Left Ventricle Summary Normal left ventricular cavity size. Normal estimated left ventricular ejecti on fraction . No wall motion abnormality . Pulmonary vein doppler is normal . Doppler tissue imaging is abnormal . Right Atrium Right Atrium Summary Normal right atrial size. Right Ventricle TAPSE: 1.8 cm Right Ventricle Summary Normal right ventricular size and functi on. Miscellaneous Aorta Aortic Root: 3 cm Ascending Aorta: 4 cm Asc. Aorta Index:1.98 cm/m^2 LVOT Diameter: 2.1 cm Vena Cava IVC Maximum: 1.8 cm ? IVC Minimum: 1.6 cm Miscellaneous Summary Inferior vena cava is normal in size wit hout respiratory variation . Due to difficulty defining all left vent ricular wall segments, Definity contrast imaging agent was used to impro ve endocardial definition. Pericardium Pericardial Effusion Summary No evidence for pericardial effusion. Pleura Pleural Effusion Summary No evidence for pleural effusion. True True True True Procedure Note Erick Saldana MD - 12/04/2021Format ting of this note might be different from the original. Report Status:Finalized Transthoracic Echocardiography Report (T TE) Demographics Patient Name COLLING GUILLERMINA Height 65.51 Inches Patient Number [id number] Weight 207.68 Pounds Date of 1970 BSA 2.02 m^2 Age 51 Tape Numb er Gender Female Study Nadir e 12/04/2021 08:58 AM Water Valve Repairer [facility] Ordering Physician TESFAYE LANGLEY Referring Interpret ing Erick Saldana MD Physician Physician [id number] Type of Study: TTE procedure: 2D echocardiogram, M-Mode , Doppler , Color Doppler, Contrast study, ECH TRANSTHORACIC ECHO ( TTE), Myocardial Strain Imaging HR: 63 bpmBP: 118/75 mmHgPatient Status: Routine Study Location: [id number] Quality: G ood visualization Contrast Medium: Definity. Amount - 0.5 ml Indications Indications for Study:Cardiac Tumor / Ma ss. CONCLUSIONS SUMMARY The estimated left ventricular ejection fraction is 65 %. There is no left ventricular wall motion abnormality identified. The estimated pulmonary artery systolic pressure is 24 mmHg + RA pressure. 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 The average global longitudinal strain i s normal (<= -16%) at -23.9 %. Strain calculated using a Gustavo Epiq C Vx . Normal right ventricular size and functi on. Normal left ventricular cavity size. Normal estimated left ventricular ejecti on fraction . No wall motion abnormality . ADDITIONAL REMARKS No previous echocardiogram for compariso n. Diastolic indices for assessment of LV d iastolic function are inconclusive No intracardiac mass identified Normal LV strain No significant valve disease. Signature Electronically signed by Erick Saldana MD [id number](Interpreting physician) on 2021 01:28 PM Valves Mitral Valve Area (PHT): 3.38 cm^2 Peak E-Wave: 1.2 m/s Deceleration Time: 223 msec Peak A-Wave: 1 m/s Peak Gradient: 5.38 mmHg E/A Ratio: 1.13 P1/2t: 65 msec Tissue Doppler E' Medial Velocity: 0.07 m/s E' Lateral Velocity: 0.097 m/s Mitral Valve Summary Normal mitral valve structure without ev idence for significant regurgitation. Aortic Valve Peak Velocity: 1.7 m/s Area (continuity): 3.31 cm^2 Peak Gradient: 11.02 mmHg Mean Velocity: 1.2 m/s Mean Gradient: 7 mmHg AV VTI: 36.7cm Aortic Valve Summary Trileaflet aortic valve with no evidence for significant regurgitation. 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 Tricuspid Valve TR Velocity: 2.5 m/s TR Gradient: 24.2064 mmHg Tricuspid Valve Summary Tricuspid valve insufficiency 1+. Pulmonic Valve Pulmonic Valve Summary Normal pulmonic valve structure without evidence for significant regurgitation. LVOT Peak Velocity: 1.6 m/s Joann n Velocity: 1.1 m/s Peak Gradient: 10 mmHg Joann n Gradient: 5 mmHg LVOT Diameter: 2.1 cm LVO T VTI: 35.1cm Structures Left Atrium LA Dimension: 4.5 cm LA Area: 18.8 cm^2 LA/Aorta: 1.5 LA Volum e Index: 25ml/m^2 Left Atrium Summary Normal left atrial size. Left Ventricle Diastolic Dimension: 4.45 cm Systol ic Dimension: 2.39 cm Septum Diastolic: 0.99 cm PW Diastolic: 0.94 cm Area S ystolic: 20.1 cm^2 Area Diastolic: 39.4 cm^2 EF Calculated: 64.89% CI: 3. 79 l/min*m^2 CO: 7.66 l/min LV EDV/LV EDV Index: 133 ml/66 m^2 FS: 46.29 % LV ESV /LV ESV Index: 46.7 ml/23 m^2 LV Length: 9.1 cm LVOT Diameter: 2.1 cm Stroke Volume: 121.51 ml Global Longitudinal Strain: -23.9 % Left Ventricle Summary Normal left ventricular cavity size. Normal estimated left ventricular ejecti on fraction . No wall motion abnormality . Pulmonary vein doppler is normal . Doppler tissue imaging is abnormal . Right Atrium Right Atrium Summary Normal right atrial size. Right Ventricle TAPSE: 1.8 cm Right Ventricle Summary Normal right ventricular size and functi on. Miscellaneous Aorta Aortic Root: 3 cm Ascending Aorta: 4 cm Asc. Aorta Index:1.98 cm/m^2 LVOT Diameter: 2.1 cm Vena Cava IVC Maximum: 1.8 cm IVC Minimum: 1.6 cm Miscellaneous Summary Inferior vena cava is normal in size wit hout respiratory variation . Due to difficulty defining all left vent ricular wall segments, Definity contrast imaging agent was used to impro ve endocardial definition. Pericardium Pericardial Effusion Summary No evidence for pericardial effusion. Pleura Pleural Effusion Summary No evidence for pleural effusion. True True True True Korin Blanco MD ECHO Performing Organization Address City/State/ZIP Code Phon e Number [facility] ENCEPHALOPATHY, AUTOIMMUNE EVALUATION, SERUM (12/03/2021 7:15 PM CDT) Component Value Ref Test Analysis Performed At [facility] Range Method Time Signature Encephalopathy, See [facility] Interpretation Footnote [facility] [address] [facility] Comment: No informative autoantibodies were detec anayeli in this evaluation. However, a negative result d oes not exclude autoimmune encephalopathy, idiopathic or paraneoplastic. Sensitivity and specificity of antibody testing are enhanced by testing both serum and CSF. AMB Receptor Ab Negative Negative [facility] L [facility] [address] [facility] Comment: ADDITIONAL INFORMATIO N This test was developed and its performa nce characteristics determined by [facility] in a manner co nsistent with CLIA requirements. This test has not been nay ared or approved by the U.S. Food and Drug Administration. Amphiphysin AB Negative <1:240 titer [place] [employer] [address] [facility] Comment: ADDITIONAL INFORMATIO N This test was developed and its performa nce characteristics determined by [facility] in a manner co nsistent with CLIA requirements. This test has not been nay ared or approved by the U.S. Food and Drug Administration. REFERENCE RANGE: ??AMPHIPHYSIN AB <1:240 = NEGATIVE AGNA 1 Negative <1:240 titer [facility] [employer] [address] [facility] Comment: ADDITIONAL INFORMATIO N This test was developed and its performa nce characteristics determined by [facility] in a manner co nsistent with CLIA requirements. This test has not been nay ared or approved by the U.S. Food and Drug Administration. REFERENCE RANGE: ??AGNA 1 <1:240 = NEGATIVE Polina 1 Negative <1:240 titer [facility] [employer] [address] [facility] Comment: REFERENCE RANGE: POLINA 1 <1:240 = NEGATIVE POLINA 2 Negative <1:240 titer [facility] [employer] [address] [facility] Comment: ADDITIONAL INFORMATIO N This test was developed and its performa nce characteristics determined by [facility] in a manner co nsistent with CLIA requirements. This test has not been nay ared or approved by the U.S. Food and Drug Administration. REFERENCE RANGE POLINA 2 <1:240 = NEGATIVE POLINA 3 Negative <1:240 titer [facility] [employer] [address] [facility] Comment: ADDITIONAL INFORMATIO N This test was developed and its performa nce characteristics determined by [facility] in a manner co nsistent with CLIA requirements. This test has not been nay ared or approved by the U.S. Food and Drug Administration. REFERENCE RANGE: ??POLINA 3 <1:240 = NEGATIVE CASPR2-IgG CBA Negative Negative [facility] [address] Comment: ADDITIONAL INFORMATIO N This test was developed and its performa nce characteristics determined by [facility] in a manner co nsistent with CLIA requirements. This test has not been nay ared or approved by the U.S. Food and Drug Administration. CRMP-5-IGG Negative <1:240 titer [facility] [address] [facility] Comment: ADDITIONAL INFORMATIO N This test was developed and its performa nce characteristics determined by [facility] in a manner co nsistent with CLIA requirements. This test has not been nay ared or approved by the U.S. Food and Drug Administration. REFERENCE RANGE: ??CRMP-5-IGG <1:240 = NEGATIVE DPPX Ab IFA Negative Negative [facility] [employer] [address] [facility] Comment: ADDITIONAL INFORMATIO N This test was developed and its performa nce characteristics determined by [facility] in a manner co nsistent with CLIA requirements. This test has not been nay ared or approved by the U.S. Food and Drug Administration. ESDRAS B Receptor Ab Negative Negative [facility] [address] [facility] Comment: ADDITIONAL INFORMATIO N This test was developed and its performa nce characteristics determined by [facility] in a manner co nsistent with CLIA requirements. This test has not been nay ared or approved by the U.S. Food and Drug Administration. GAD65 Ab Assay 0.00 <=0.02 nmol/L [facility] [address] [facility] Comment: ADDITIONAL INFORMATIO N This test was developed and its performa nce characteristics determined by [facility] in a manner co nsistent with CLIA requirements. This test has not been nay ared or approved by the U.S. Food and Drug Administration. GFAP IFA Negative Negative [facility] [address] [facility] Comment: ADDITIONAL INFORMATIO N This test was developed and its performa nce characteristics determined by [facility] in a manner co nsistent with CLIA requirements. This test has not been nay ared or approved by the U.S. Food and Drug Administration. IgLONS IFA Negative Negative [facility] [address] [facility] Comment: ADDITIONAL INFORMATIO N This test was developed and its performa nce characteristics determined by [facility] in a manner co nsistent with CLIA requirements. This test has not been nay ared or approved by the U.S. Food and Drug Administration. LGI1-IgG CBA Negative Negative [facility] [employer] [address] [facility] Comment: ADDITIONAL INFORMATIO N This test was developed and its performa nce characteristics determined by [facility] in a manner co nsistent with CLIA requirements. This test has not been nay ared or approved by the U.S. Food and Drug Administration. mGluR1 Ab IFA Negative Negative [facility] [address] [facility] Comment: ADDITIONAL INFORMATIO N This test was developed and its performa nce characteristics determined by [facility] in a manner co nsistent with CLIA requirements. This test has not been nay ared or approved by the U.S. Food and Drug Administration. NMDA R Ab Negative Negative [facility] [address] Comment: ADDITIONAL INFORMATIO N This test was developed and its performa nce characteristics determined by [facility] in a manner co nsistent with CLIA requirements. This test has not been nay ared or approved by the U.S. Food and Drug Administration. NIF IFA Negative Negative [facility] [address] Comment: ADDITIONAL INFORMATIO N This test was developed and its performa nce characteristics determined by [facility] in a manner co nsistent with CLIA requirements. This test has not been nay ared or approved by the U.S. Food and Drug Administration. CAN WORKER 1 Negative <1:[address] [facility] Comment: ADDITIONAL INFORMATIO N This test was developed and its performa nce characteristics determined by [facility] in a manner co nsistent with CLIA requirements. This test has not been nay ared or approved by the U.S. Food and Drug Administration. REFERENCE RANGE: ??CAN WORKER 1 <1:240 = NEGATIVE CAN WORKER 2 Negative <1:[address] [facility] Comment: ADDITIONAL INFORMATIO N This test was developed and its performa nce characteristics determined by [facility] in a manner co nsistent with CLIA requirements. This test has not been nay ared or approved by the U.S. Food and Drug Administration. REFERENCE RANGE: ??CAN WORKER 2 <1:240 = NEGATIVE CAN WORKER TR Negative <1:240 titer [facility] Comment: ADDITIONAL INFORMATIO N This test was developed and its performa nce characteristics determined by [facility] in a manner co nsistent with CLIA requirements. This test has not been nay ared or approved by the U.S. Food and Drug Administration. Test Performed by: [place] [address] Quality Management Nurse: Chintan Coronado M.D. Ph. D.; CLIA# [id number] REFERENCE RANGE: ??CAN WORKER TR <1:240 = NEGATIVE Specimen Anatomical Collection Method Collection Time Receive d Time (Source) Location / / Volume Laterality Serum 12/03/2021 7:15 12/04/2021 PM CDT 7:01 AM CDT Narrative [facility] - 12/13/2021 5:20 PM CDT Encephalopathy, Autoimmune Evaluation, Serum Name of test: ENS2 Korin Blanco MD LABORATORY Performing Organization Address City/State/ZIP Code Phon e Number [facility] [address] [place], [place] [address] [facility] C[facility] INTERLEUKIN 2 RECEPTOR (CD25) SOLUBLE (12/03/2021 7:15 PM CDT) [facility] Method Time Signature Interleukin 2 332.1 175.3 - [facility] Receptor (CD25) 858.2 LABORATORIES Soluble pg/mL Comment: INTERPRETIVE INFORMATION: Cytokines Results are used to understand the patho physiology of immune, infectious, or inflammatory diso rders, or may be used for research purposes. This test was developed and its performa nce characteristics determined by [facility]. It has not been cleared or approved by the US Food and Drug Adminis tration. This test was performed in a CLIA certified labora tory and is intended for clinical purposes. Performed By: [facility] [address] [place] [address] Caterpillar Mechanic: Hortensia Lemon MD Specimen Anatomical Collection Method Collection Time Receive d Time (Source) Location / / Volume Laterality Serum 12/03/2021 7:15 12/04/2021 PM CDT 7:01 AM CDT Korin Blanco MD LABORATORY Performing Organization Address City/[facility]/ZIP Code Phon e Number [employer] [address] [place] [address] QUANTIFERON-TB GOLD PLUS (12/03/2021 7:15 PM CDT) [facility] Method Time Signature QuantiFERON TB Negative Negative [facility] Gold Plus QFT TB 1 -0.01 [facility] QFT TB 2 -0.01 [facility] QFT TB MITOGEN 9.97 [facility] QFT NIL 0.03 [facility] Specimen Anatomical Collection Method Collection Time Receive d Time (Source) Location / / Volume Laterality Blood 12/03/2021 7:15 12/03/2021 PM CDT 8:57 PM CDT Korin Blanco MD LABORATORY Performing Organization Address City/State/ZIP Code Phon e Number [facility] [place] [address] XR NEEDLE PLACEMENT - SPINE (12/03/2021 3:07 PM CDT) Anatomical Region Laterality Modality Radio Fluoroscopy Specimen (Source) Anatomical Collection Method Collection Time Re ceived Time Location / / Volume Laterality 12/03/2021 3:04 PM CDT Impressions 12/04/2021 4:30 PM CDT Impression: Lumbar puncture performed without immediate complication. Samples sent for laboratory testing, according to the requesting physician's orders. My signature attests that I, Dr. Chu, was present for the entire procedure. I have personally reviewed the image(s) and initial interpretation, and I agree with the findings as documented by the resident/fellow. Reading Radiologist: Chandan Chu Resident: Norberto Waldron 12/04/2021 4:30 PM CDT Lumbar Puncture using Fluoroscopy Indication: ??r/o infection vs sarcoid ? ?. Procedure note: The patient was consente d in verbal and written fashion for lumbar puncture, and benefits and risk of the procedure were explained to the patient, including but not limited to worsening headache, hemorrhage, infection, lower e xtremity pain, or nerve root injury. The patient was sterilely prepped and draped with the patient in the left decubitus position, over the lower back. Under fluo roscopic guidance, the interlaminar spac es were noted. 1% lidocaine was administered for local anesthetic over the L2-3 interlaminar space, and a 22 gauge needle was advanced into the thecal sac under f luoroscopic guidance. ??There was initia l aspiration of clear CSF. About 18 cc total was aspirated. The needle was removed. There were no im mediate complications associated with the procedure. ?? Samples were sent for the requested laboratory testing. Fluoroscopic time: Approximately 0:12 mi nutes. Dose ??= 6 mGy. Procedure Note Chandan Chu MD - 12/04/2021Fo rmatting of this note might be different from the original. Lumbar Puncture using Fluoroscopy Indication: r/o infection vs sarcoid . Procedure note: The patient was consente d in verbal and written fashion for lumbar puncture, and benefits and risk of the procedure were explained to the patient, including but not limited to worsening headache, hemorrhage, infection, lower extremity p ain, or nerve root injury. The patient was sterilely prepped and draped with the patient in the left decubitus position, over the lower back. Under fluoroscopic guidance, the interlaminar spaces were noted. 1% lidoc aimee was administered for local anesthetic over the L2-3 interlaminar space, and a 22 gauge needle was advanced into the thecal sac under fluoroscopic guidance. There was initial aspiration of clear CSF. About 1 8 cc total was aspirated. The needle was removed. There were no im mediate complications associated with the procedure. Samples were sent for the requested laboratory testing. Fluoroscopic time: Approximately 0:12 mi nutes. Dose = 6 mGy. IMPRESSION Impression: Lumbar puncture performed wi thout immediate complication. Samples sent for laboratory testing, according to the requesting physician's orders. My signature attests that I, Dr. Chu, was present for the entire procedure. I have personally reviewed the image(s) and initial interpretation, and I agree with the findings as documented by the resident/fellow. Reading Radiologist: Chandan Chu Reading Resident: Norberto Waldron Korin Blanco MD FLUORO Lumbar Puncture (12/03/2021 3:06 PM CDT) Narrative Chandan Chu MD - 12/03/2021 3:06 PM CDT Chandan Chu MD ? 12/03/2021 ??3:06 PM Lumbar Puncture Date/Time: 12/03/2021 3:06 PM Performed by: Chandan Chu MD Authorized by: Chandan Chu MD Consent: Verbal consent obtained. Writtcamelia n consent obtained. Risks and benefits: risks, benefits and alternatives were discussed Consent given by: patient Patient understanding: patient states un derstanding of the procedure being performed Patient consent: the patient's understan ding of the procedure matches consent given Procedure consent: procedure consent mat ches procedure scheduled Relevant documents: relevant documents p resent and verified Test results: test results available and properly labeled Site marked: the operative site was micheal ed Imaging studies: imaging studies availab le Patient identity confirmed: verbally wit h patient and provided demographic data Time out: Immediately prior to procedure a time out was called to verify the correct patient, procedure, equipmen t, sales support manager and site/side marked as required. Anesthesia: local infiltration Anesthesia: Local Anesthetic: lidocaine 1% without e pinephrine Anesthetic total: 3 mL Sedation: Patient sedated: no Preparation: Patient was prepped and alondra ped in the usual sterile fashion. Patient's position: left lateral decubit us Needle gauge: 22 Needle type: spinal needle - Quincke tip Number of attempts: 1 Opening pressure: 19 cm H2O Fluid appearance: clear Tubes of fluid: 4 Total volume: 18 ml Post-procedure: site cleaned Patient tolerance: Patient tolerated the procedure well with no immediate complications Comments: L2-3 level puncture, left para median. Chandan Chu MD PROCEDURES CYTOLOGY NON-CONSTRUCTION PROJECT COORDINATOR SPECIMEN (12/03/2021 2:48 PM CDT) [facility] Method Time Signature Cytology Refrigerated [facility] Non-Radio Tester Specimen Specimen Anatomical Collection Method Collection Time Receive d Time (Source) Location / / Volume Laterality CSF 12/03/2021 2:48 12/03/2021 PM CDT 3:17 PM CDT Comment: CYTOLOGY NON-CONSTRUCTION PROJECT COORDINATOR SPECIMEN Narrative [facility] - 12/03/2021 3:17 PM CDT Both orders are required to process Cytology/Non-CONSTRUCTION PROJECT COORDINATOR panel. Please do not discontinue either order. 1. Cytology Non-CONSTRUCTION PROJECT COORDINATOR 2. Cytology Non-CONSTRUCTION PROJECT COORDINATOR Specimen . Korin Blanco MD LAB PATHOLOGY Performing Organization Address City/State/ZIP Code Phon e Number [facility] [place] [address] MISCELLANEOUS LAB (12/03/2021 2:48 PM CDT) [facility] Method Time Signature [facility] Sendout See Comment See Comment MISCELLANEOUS REFERENCE LABORATORY Comment: Meningitis/Encephalitis Panel by PCR [facility] test code [id number] Escherichia coli K1 by PCR Not Detected - - - - - - - - - - - - - - - - - - - - - - - - - - - - - - Haemophilus influenzae by PCR Not Detected - - - - - - - - - - - - - - - - - - - - - - - - - - - - - - Listeria monocytogenes by PCR Not Detected - - - - - - - - - - - - - - - - - - - - - - - - - - - - - - Neisseria meningitidis by PCR Not Detected - - - - - - - - - - - - - - - - - - - - - - - - - - - - - - Streptococcus agalactiae by PCR Not Detected - - - - - - - - - - - - - - - - - - - - - - - - - - - - - - Streptococcus pneumoniae by PCR Not Detected - - - - - - - - - - - - - - - - - - - - - - - - - - - - - - Cytomegalovirus by PCR Not Detected - - - - - - - - - - - - - - - - - - - - - - - - - - - - - - Enterovirus by PCR Not Detected - - - - - - - - - - - - - - - - - - - - - - - - - - - - - - Herpes simplex virus 1 by PCR Not Detected - - - - - - - - - - - - - - - - - - - - - - - - - - - - - - Herpes simplex virus 2 by PCR Not Detected - - - - - - - - - - - - - - - - - - - - - - - - - - - - - - Human herpesvirus 6 by PCR Not Detected - - - - - - - - - - - - - - - - - - - - - - - - - - - - - - Human parechovirus by PCR Not Detected - - - - - - - - - - - - - - - - - - - - - - - - - - - - - - Varicella zoster virus by PCR Not Detected - - - - - - - - - - - - - - - - - - - - - - - - - - - - - - Cryptococcus neoformans/gattii by PCR Not Detected INTERPRETIVE INFORMATION: Meningitis Enc ephalitis Panel by PCR The meningitis/encephalitis panel is NOT a replacement for CSF bacterial and/or fungal culture and Cryp tococcal antigen testing for at-risk patients. Non-K1 E. coli ser otypes and non-encapsulated strains of Neisseria me ningitidis are NOT detected. The panel does NOT differentia te active from latent herpes virus infections. Test results sh ould be interpreted in the context of host factors and other la boratory information. Specimen Anatomical Collection Method Collection Time Receive d Time (Source) Location / / Volume Laterality Other 12/03/2021 2:48 12/06/2021 PM CDT 7:28 AM CDT Narrative MISCELLANEOUS REFERENCE LABORATORY - 7:29 AM CDT [facility] Meningitis/Encephalitis Pathogen Panel, PCR, Spinal Fluid Reference Lab: [facility] Test Name: ABOVE Reference Lab test code: [id number] Reflex testing available (Y/N): N Expected TAT: 2 DAYS Temp: ??R Korin Blanco MD LABORATORY Performing Organization Address City/State/ZIP Code Phon e Number MISCELLANEOUS REFERENCE LABORATORY MISCELLANEOUS REFERENCE See Comment for Lab LABORATORY Address CSF CULTURE:INCLUDES GRAM STAIN (12/03/2021 2:48 PM CDT) [facility] Method Time Signature Final Report No growth. [facility] Gram Stain No PMN's seen. [facility] Report No organisms seen. Specimen Anatomical Collection Method Collection Time Receive d Time (Source) Location / / Volume Laterality CSF 12/03/2021 2:48 12/03/2021 PM CDT 3:26 PM CDT Narrative [facility] - 12/06/2021 10:02 AM CDT Was CSF taken from a shunt: No Korin Blanco MD LAB MICROBIOLOGY Performing Organization Address City/[facility]/ZIP Code Phon e Number [facility] [place] [address] BODY FLUID CELL COUNT/DIFF (12/03/2021 2:48 PM CDT) [facility] Method Time Signature Fluid Type CF CSF [facility] Volume CF 20 mL [facility] Appearance CF Clear [facility] Color bf Colorless [facility] Tube # CSF Tube 4 [facility] RBC CSF <1,000 cells/ul [facility] Nuc Ct CSF 1 cells/ul [facility] Neutrophil CSF 0 % [facility] Lymphocytes CSF 100 % [facility] Specimen Anatomical Collection Method Collection Time Receive d Time (Source) Location / / Volume Laterality CSF 12/03/2021 2:48 12/03/2021 PM CDT 3:17 PM CDT Korin Blanco MD LABORATORY Performing Organization Address City/[facility] Code Phon e Number [facility] [place] [address] OLIGOCLONAL BANDS CSF (12/03/2021 2:48 PM CDT) [facility] Method Time Signature Oligoc Band CSF Negative [facility] Oligoclonal Bands 0 0 - 1 [facility] Number,CSF LABORATORIES Oligoclonal Bands See Note [facility] Interpretation LABORATORIES Comment: Isoelectric focusing/immunofixation reve aled no oligoclonal bands in either the CSF or the serum. Th is is considered to be a negative result for oligoclonal ban ds. Approximately 5 percent of patients with clinically defi nitive multiple sclerosis will have a negative result. Performed By: [facility] [address] [place] [id number] [employer] Mechanic: Hortensia Lemon MD Specimen Anatomical Collection Method Collection Time Receive d Time (Source) Location / / Volume Laterality CSF 12/03/2021 2:48 12/03/2021 PM CDT 3:17 PM CDT Korin Blanco MD LABORATORY Performing Organization Address City/State/ZIP Code Phon e Number [facility] [address] [place] [address] PROTEIN, CSF (12/03/2021 2:48 PM CDT) athologist Signature Protein Total 34 15 - 45 [facility] CSF mg/dL Specimen Anatomical Collection Method Collection Time Receive d Time (Source) Location / / Volume Laterality CSF 12/03/2021 2:48 12/03/2021 PM CDT 3:17 PM CDT Korin Blanco MD LABORATORY Performing Organization Address City/[facility]/ZIP Code Phon e Number [facility] [place] [address] (ABNORMAL) GLUCOSE, CSF (12/03/2021 2:48 PM CDT) athologist [facility] Glucose CSF 82 (H) 40 - 70 [facility] mg/dL Comment: GLUCOSE CSF REFERENCE RANGES: 60% - 70% of the plasma level at the nisha e the spinal tap is performed Specimen Anatomical Collection Method Collection Time Receive d Time (Source) Location / / Volume Laterality CSF 12/03/2021 2:48 12/03/2021 PM CDT 3:17 PM CDT Korin Blanco MD LABORATORY Performing Organization Address City/[facility]/ZIP Code Phon e Number [facility] [place] [address] FLOW CYTOMETRY (12/03/2021 1:10 PM CDT) Component Value Ref Test Analysis Performed At [facility] gist Range Method Time Signature FC Report ?Flow Cytometry Report [facility] Collection Date: ?12/03/2021 13:10 CDT ?Ordering Physician: ? KORIN BLANCO Received Date: ?12/03/2021 16:18 CDT ?Accession Number: ? [id number] ? Final Report Clinical History: Clinical history per [facility] medical records: 51-year-old female with brain lesions. DIAGNOSIS: Cerebrospinal fluid , flow cytometry: ??- No aberrant immunophenotype on the T-cells ??- B-cells rare to absent ??- See comment * ??Report Electronically Signed By ??* ?? Bri Caal M.D. KSP/KSP 12/04/2021 11:38 COMMENT: There is no evidence of lymp hocyte clonality in this flow cytometry panel. Lymphocytes account for the majority of the CD4 5-positive cells. B-cells are rare to absent. T- cells account for 87% of lymphocytes, coexpress C D2, CD3, CD5 and CD7, and do not show evidence of significant antigen loss. Both CD4-expressing h elper T-cells and CD8-expressing suppressor T-cells are present with a CD4:CD8 ratio of 4.13. NK-cells are rare to absent. Specimen Type: Cerebrospinal fluid Cell Markers: Cells obtained from ??cerebr ospinal fluid ??were prepared and incubated with a group of fluorescence- labeled monoclonal antibodie s to selected cell membrane antigens. Antibodies used in this study were: CD2, CD3, CD4, CD5, C D7, CD8, CD10, CD14, CD16, CD19, CD20, CD22, CD23, CD45, CD56, CD57, surface kappa and surface l ambda. Immunophenotyping was performed using a 3-laser/10-color flow cytometry instrument. Cell surface antigen expression was quantitated using a CD45 versus side scatter gating strategy and the cell populations were evaluated using Damballa analysis software. The total cell count in thi s study was 1/microliter after lysis of red cells. Cell viability was 100%. This test was developed and its performance characteristics determined by the ? [place] [facility] Flow Cytometry Laboratory. ??It has not been cleared or approved by the [place] Food and Drug Administration. ?? The U.S. FDA has determined that such clearance or approval is not required. ??This test is us ed for diagnostic purposes and the results correlated with clinical, laboratory and other diagnostic information. Specimen Anatomical Collection Method Collection Time Receive d Time (Source) Location / / Volume Laterality AP SPECIMEN 12/03/2021 1:10 12/03/2021 (CSF) PM CDT 4:18 PM CDT Comment: FLOW CYTOMETRY Narrative This result has an attachment that is no t available. Korin Blanco MD LAB PATHOLOGY Performing Organization Address City/State/ZIP Code Phon e Number [facility] [place] [address] CYTOLOGY NON-CONSTRUCTION PROJECT COORDINATOR (12/03/2021 1:10 PM CDT) Component Value Ref Test Analysis Performed At [facility] gist Range Method Time Signature Non Radio Tester ?Non Radio Tester Report [facility] Report Collection Date: ?12/03/2021 13:10 CDT ?Ordering Physician: ? KORIN BLANCO Received Date: ?12/04/2021 11:48 CDT ?Accession Number: ? [id number] ?Non Gynecologic Cytology Final Report Specimen Type: Cerebral Spinal Fluid Final Diagnosis: Negative for malignant cells. * ??Report Electronically Signed By ??* ?? Renetta Warner M.D. ?? Screening Performed By: ?? Dianne Greco, ALYSE(ASCP) ?? SSS 12.05.2021 15:22 Clinical History & Gross Description: RECEIVED ??in the cytology l ab: 5 cc of clear, colorless cerebral spinal fluid (including a 1:1 dilution with RPMI). PREPARED: ??1 air-dried double cytospin, 1 fixed double cyto spin. Specimen Anatomical Collection Method Collection Time Receive d Time (Source) Location / / Volume Laterality AP SPECIMEN 12/03/2021 1:10 12/04/2021 (CSF) PM CDT 11:48 AM CDT Comment: Cerebral Spinal Fluid Narrative This result has an attachment that is no t available. Korin Blanco MD LAB PATHOLOGY Performing Organization Address City/[facility] Code Phon e Number [facility] [place] [address] HIV COMBO (12/03/2021 6:41 AM CDT) [facility] gist Method Time Signature HIV Nonreactive Nonreactive [facility] Antigen-Antib shannan Comment: Performance characteristics hav e not been established with this test on patients less than 2 years of age. Specimen Anatomical Collection Method Collection Time Receive d Time (Source) Location / / Volume Laterality Blood 12/03/2021 6:41 12/03/2021 AM CDT 7:17 AM CDT Korin Blanco MD LABORATORY Performing Organization Address City/[facility] Code Phon e Number [facility] [place] [address] HEPATITIS B SURFACE ANTIGEN (12/03/2021 6:41 AM CDT) [facility] Method Time Signature HBV Surface Nonreactive Nonreactive [facility] Ag Specimen Anatomical Collection Method Collection Time Receive d Time (Source) Location / / Volume Laterality Blood 12/03/2021 6:41 12/03/2021 AM CDT 7:17 AM CDT Korin Blanco MD LABORATORY Performing Organization Address City/[facility]/ZIP Code Phon e Number [facility] [place] [address] HEPATITIS C ANTIBODY WITH CONDITIONAL PCR (12/03/2021 6:41 AM CDT) [facility] C Mónica Nonreactive Nonreactive [facility] Comment: Performance characteristics hav e not been established with this test on patients less than 10 years of age. Specimen Anatomical Collection Method Collection Time Receive d Time (Source) Location / / Volume Laterality Blood 12/03/2021 6:41 12/03/2021 AM CDT 7:17 AM CDT Korin Blanco MD LABORATORY Performing Organization Address City/[facility]/ZIP Code Phon e Number [facility] [place] [address] HEPATITIS B SURFACE ANTIBODY (12/03/2021 6:41 AM CDT) P athologist Signature HBV Surface Reactive [facility] Mónica Comment: Reactive implies immunity. Specimen Anatomical Collection Method Collection Time Receive d Time (Source) Location / / Volume Laterality Blood 12/03/2021 6:41 12/03/2021 AM CDT 7:17 AM CDT Korin Blanco MD LABORATORY Performing Organization Address City/State/ZIP Code Phon e Number [facility] [place] [address] CHEST/ABD/PELVIS W/IV CONT (12/01/2021 9:13 AM CDT) Anatomical Region Laterality Modality Chest Computed Tomography Specimen (Source) Anatomical Collection Method Collection Time Re ceived Time Location / / Volume Laterality 12/01/2021 9:36 AM CDT Impressions 12/01/2021 9:43 AM CDT Impression: No evidence for a primary malignancy in the chest, abdomen or pelvis. Reading Radiologist: Harrison Umana Narrative 12/01/2021 9:43 AM CDT Indication: ??evaluate for tumor/mets, ??brain mass noted on imaging ?? Technique: Following the uncomplicated a dministration of intravenous contrast, multiple axial images were obtained through the chest abdomen and pelvis. Total DLP: ??746.6 mGy.cm Comparison: None Findings: The lungs are clear. No suspic ious nodule is identified. There is no pleural effusion or pneumothorax. The heart size is normal. There is no significant mediastinal, hilar or axillary lymphade nopathy. The thoracic aorta and great ve ssels are patent end unremarkable. There is a small right adnexal cyst. Spl enic granulomata are present. The abdominal organs are otherwise unremarkable. There is no free air or fluid. There is no evidence for bowel obstruction. The vasc ular structures of the abdomen and pelvi s are patent and unremarkable. There is no significant abdominal lymphadenopathy. Review of the bone windows demonstrates no suspicious abnormality. Procedure Note Harrison Umana MD - 12/01/2021Formatti ng of this note might be different from the original. Indication: evaluate for tumor/mets, b rain mass noted on imaging Technique: Following the uncomplicated a dministration of intravenous contrast, multiple axial images were obtained through the chest abdomen and pelvis. Total DLP: 746.6 mGy.cm Comparison: None Findings: The lungs are clear. No suspic ious nodule is identified. There is no pleural effusion or pneumothorax. The heart size is normal. There is no significant mediastinal, hilar or axillary lymphadenopathy. The thoracic aorta and great vessels are pat ent end unremarkable. There is a small right adnexal cyst. Spl enic granulomata are present. The abdominal organs are otherwise unremarkable. There is no free air or fluid. There is no evidence for bowel obstruction. The vascular structures of the abdomen and pelvis are patent and unremarkable. There is no significant abdominal lymphadenopathy. Review of the bone windows demonstrates no suspicious abnormality. IMPRESSION Impression: No evidence for a primary ma lignancy in the chest, abdomen or pelvis. Reading Radiologist: Harrison Umana Hattie CHAPA-C CT BODY ANTIBODY SCREEN (12/01/2021 12:28 AM CDT) athologist Signature Mónica Screen Negative [facility] Specimen Anatomical Collection Method Collection Time Receive d Time (Source) Location / / Volume Laterality Blood 12/01/2021 12:28 12/01/2021 AM CDT 12:55 AM CDT Hattie Adams PA-C LAB TRANSFUSION SERVICES Performing Organization Address City/State/ZIP Code Phon e Number [facility] [place] [address] BLOOD TYPING-ABO/RH (12/01/2021 12:28 AM CDT) P athologist Signature ABORHG O NEG [facility] Specimen Anatomical Collection Method Collection Time Receive d Time (Source) Location / / Volume Laterality Blood 12/01/2021 12:28 12/01/2021 AM CDT 12:55 AM CDT Hattie Adams PA-C LAB TRANSFUSION SERVICES Performing Organization Address City/State/ZIP Code Phon e Number [facility] [place] [address] PTT (APTT) (12/01/2021 12:28 AM CDT) athologist Signature APTT 34.2 25.0 - 37.0 [facility] sec Specimen Anatomical Collection Method Collection Time Receive d Time (Source) Location / / Volume Laterality Blood 12/01/2021 12:28 12/01/2021 AM CDT 1:00 AM CDT Hattie Adams PA-C LABORATORY Performing Organization Address City/[facility]/ZIP Code Phon e Number [facility] [place] [address] PROTHROMBIN (PT) & INR (12/01/2021 12:28 AM CDT) athologist Signature PT 12.0 9.0 - 12.5 [facility] sec INR 1.0 0.8 - 1.1 [facility] Specimen Anatomical Collection Method Collection Time Receive d Time (Source) Location / / Volume Laterality Blood 12/01/2021 12:28 12/01/2021 AM CDT 1:00 AM CDT Hattie Adams PA-C LABORATORY Performing Organization Address City/[facility]/ZIP Code Phon e Number [facility] [place] [address] (ABNORMAL) PANEL BASIC METABOLIC (BMP) (12/01/2021 12:28 AM CDT) athologist Signature CO2 21 (L) 22 - 30 [facility] mEq/L Glucose 111 (H) 70 - 100 [facility] mg/dL BUN 10 6 - 20 [facility] mg/dL Creatinine 0.62 0.50 - 1.00 [facility] mg/dL Calcium 8.6 8.6 - 10.0 [facility] mg/dL eGFR, High >120 >=60 [facility] ml/min/1.73 m2 Comment: Calculated using CKD-EPI equati on Sodium 139 135 - 148 mEq/L [facility] Potassium 4.3 3.5 - 5.3 mEq/L [facility] Chloride 108 92 - 108 mEq/L [facility] eGFR, Low 105 >=60 ml/min/1.73m2 [facility] Comment: Calculated using CKD-EPI equati on AnGap 10 8 - 16 mEq/L [facility] Specimen Anatomical Collection Method Collection Time Receive d Time (Source) Location / / Volume Laterality Blood 12/01/2021 12:28 12/01/2021 AM CDT 1:00 AM CDT Hattie Adams PA-C LABORATORY Performing Organization Address City/[facility]/ZIP Code Phon e Number [facility] [place] [address] (ABNORMAL) CBC WITH PLATELET (12/01/2021 12:28 AM CDT) P athologist Signature WBC 7.51 4.00 - [facility] 10.00 k/cmm RBC 3.74 (L) 3.90 - 5.20 [facility] m/cmm Hgb 11.2 (L) 11.5 - 15.7 [facility] g/dL Hematocrit 34.8 34.0 - 45.0 [facility] % MCV 93.0 80.0 - [facility] 100.0 fL MCH 29.9 25.0 - 32.0 [facility] pg MCHC 32.2 31.0 - 36.0 [facility] g/dL RDW 13.8 11.5 - 14.5 [facility] % Plt 271 150 - 400 [facility] k/cmm MPV 10.9 6.5 - 12.5 [facility] fL Specimen Anatomical Collection Method Collection Time Receive d Time (Source) Location / / Volume Laterality Blood 12/01/2021 12:28 12/01/2021 AM CDT 1:00 AM CDT Hattie Adams PA-C LABORATORY Performing Organization Address City/[facility]/ZIP Code Phon e Number [facility] [place] [address] MR BRAIN W/O + WITH CONTRAST (11/30/2021 9:15 PM CDT) Anatomical Region Laterality Modality Skull Magnetic Resonance Specimen (Source) Anatomical Collection Method Collection Time Re ceived Time Location / / Volume Laterality 11/30/2021 9:28 PM CDT Impressions 12/06/2021 10:20 AM CDT Impression: ?? Multiple regions of nonenhancing signal abnormality are present and involve the left temporal and parietal lobes, left thalamus, left internal capsule and sublentiform region, and possibly also the left subinsular white matter. Overall, the a ppearance is most suggestive of multifocal involvement of glioma; inflammatory or infectious processes are felt less likely. Stereotactic MR imaging of the skull, pr e-operative for surgical planning. ?? I have personally reviewed the image(s) and initial interpretation, and I agree with the findings as documented by the resident/fellow. Reading Radiologist: Johnathan Avelar Reading Resident: Mian Agrawal 12/06/2021 10:20 AM CDT Exam: Stealth MRI for preoperative/stereotactic planning, 11/30/2021 Indication: Brain mass or lesion ??pleas e do with [employer] protocol. Comparison: Brain MRI from earlier today . Technique: Axial susceptibility-weighted images were obtained of the brain. Additional volumetric T1-and T2-weighted images were obtained brain following the intravenous administration of gadolinium, wi th the images transferred to the [employer] Workstation for surgical planning. Amide proton transfer(APT)-weighted imaging was also performed. Findings: The images obtained were perfo rmed primarily for stereotactic planning. There is multifocal nonenhancing T1-hypo intense and T2-hyperintense lesion regions of the left cerebral hemisphere, including the mid and posterior lateral left temporal lobe (and also extending into th e inferior parietal lobule), left thalam us and adjacent posterior limb internal capsule and sublentiform region, and left hippocampus and parahippocampal gyrus. There are smaller foci of similar signal abnormality in the left subinsular white matter and about the anteroinferior aspect of the left putamen. The lesional abnormality appears to involve the cortex of the posterior aspect of the lateral lef t temporal lobe (axial image 72 of serie s 501); in this location is suggestion of preserved diffusion signal (on the prior MRI) within the cortex. No convincing MR evidence of intracrania l hemorrhage on the susceptibility- weighted images. No significant abnormally increased APT signal is evident. Trace [id number] midline shift withou t herniation. No hydrocephalus or extra- axial fluid collection. A few small foci of T2-hyperintensity in the subcortical right frontal white matter are of uncertain significance. No convincing abnormal intracranial cont rast enhancement. The major intracranial arterial flow voi ds are patent. The dural venous sinuses appear patent. No acute or suspicious intraorbital findings. The paranasal sinuses are relatively clear. The mastoid air c ells appear clear. There are a few nonen larged bilateral occipital lymph nodes. Procedure Note Johnathan Avelar, - 12/06/2021Form atting of this note might be different from the original. Exam: Stealth MRI for preoperative/stere otactic planning, 11/30/2021 Indication: Brain mass or lesion please do with [employer] protocol. Comparison: Brain MRI from earlier today . Technique: Axial susceptibility-weighted images were obtained of the brain. Additional volumetric T1-and T2-weighted images were obtained brain following the intravenous administration of gadolinium, with the images transferred to the [employer] Workstation f or surgical planning. Amide proton transfer(APT)-weighted imaging was also performed. Findings: The images obtained were perfo rmed primarily for stereotactic planning. There is multifocal nonenhancing T1-hypo intense and T2-hyperintense lesion regions of the left cerebral hemisphere, including the mid and posterior lateral left temporal lobe (and also extending into the inferior parietal lobule), left thalamus and adjacent post erior limb internal capsule and sublentiform region, and left hippocampus and parahippocampal gyrus. There are smaller foci of similar signal abnormality in the left subinsular white matter and about the anteroinferio r aspect of the left putamen. The lesional abnormality appears to involve the cortex of the posterior aspect of the lateral left temporal lobe (axial image 72 of series 501); in this location is suggestion of preserved diff usion signal (on the prior MRI) within the cortex. No convincing MR evidence of intracrania l hemorrhage on the susceptibility- weighted images. No significant abnormally increased APT signal is evident. Trace [id number]-[id number]-[id number] midline shift withou t herniation. No hydrocephalus or extra- axial fluid collection. A few small foci of T2-hyperintensity in the subcortical right frontal white matter are of uncertain significance. No convincing abnormal intracranial cont rast enhancement. The major intracranial arterial flow voi ds are patent. The dural venous sinuses appear patent. No acute or suspicious intraorbital findings. The paranasal sinuses are relatively clear. The mastoid air cells appear clear. There are a few nonenlarged bilat eral occipital lymph nodes. IMPRESSION Impression: Multiple regions of nonenhancing signal abnormality are present and involve the left temporal and parietal lobes, left thalamus, left internal capsule and sublentiform region, and possibly also the left subinsular white matter. Overall, the appearance is most suggestive of multifocal involvement of glioma; inflammatory or infectious processes are felt less likely. Stereotactic MR imaging of the skull, pr e-operative for surgical planning. I have personally reviewed the image(s) and initial interpretation, and I agree with the findings as documented by the resident/fellow. Reading Radiologist: Johnathan Avelar Reading Resident: Mian Agrawal Hattie Adams PA-C MR NEURO documented in this encounter Visit Diagnoses Diagnosis Brain mass - Primary Unspecified condition of brain Focal seizure () Other convulsions documented in this encounter Administered Medications Inactive Administered Medications - up to 3 most recent administrations Medication Order MAR Action Action Date Dose Rate Site acetaminophen tablet 650 mg Given 12/07/2021 2:59 PM CDT 650 mg 650 mg, Oral, Q4H PRN, Starting on Fri11/30/21 at 1830, Until Fri12/07/21 at 2304, Temp > 38.6 C, Mild Pain (Use First) Given 12/07/2021 9:38 AM CDT 650 mg Given 12/07/2021 3:41 AM CDT 650 mg alum & mag hydroxide-simeth (MAALOX PLUS) Given 12/03/2021 11:33 AM CDT 30 mL suspension 30 mL 30 mL, Oral, TID PRN, Starting on Fri11/30/21 at 1831, Until Fri12/07/21 at 2304, GI Upset DC MED REC REVIEW BY PHARMACY Discharge Date: 12/07/2021, Discharge Loc ation: Home, Anticipated Discharge Time: Now, Discharge Medication Orders: DC Med Orders Final, Does not apply, PROTOCOL, Starting on Fri12/07/21 at 1541, Until Fri12/07/21 at 2304 dexamethasone (DECADRON) 20 mg/ 5mL injection Given 1:00 PM CDT 4 mg 4 mg 4 mg, IV Push, Q6H, First dose on Fri12/05/21 at 1725, Until Discontinued Given 12/07/2021 5:57 AM CDT 4 mg Given 12/07/2021 12:31 AM CDT 4 mg dexamethasone (DECADRON) 20 mg/ 5mL injection Given 11:33 AM CDT 6 mg 6 mg 6 mg, IV Push, Q6H, First dose on Fri11/30/21 at 1840, Until Discontinued Given 12/03/2021 6:04 AM CDT 6 mg Given 12/02/2021 11:28 PM CDT 6 mg gadobutrol (GADAVIST) 1 mmol/mL Given 11/30/2021 8:54 PM CDT 5 mL Left Arm injection 0-15 mL 0-15 mL, IV Push, RAD ONE TIME AUTO ACKNOWLEDGE, 1 dose, On Fri11/30/21 at 2040 hydrALAZINE (APRESOLINE) 20 mg/mL injection Given 12/05/2021 10:59 PM CDT 10 mg 10 mg 10 mg, IV Push, Q1H PRN, Starting on Fri12/05/21 at 1838, Until Fri12/07/21 at 2304, SBP greater than 140 mmHg HYDROmorphone PF (DILAUDID) 1 mg/mL Given 12/06/2021 7:23 AM CD T 0.25 mg injection 0.2-0.5 mg 0.2-0.5 mg, IV Push, Q2H PRN, Starting on Fri12/05/21 at 2109, Until Bee 12/06/21 at 0740, Severe Pain (Use First) Given 12/06/2021 2:14 AM CDT 0.5 mg HYDROmorphone PF (DILAUDID) 1 mg/mL Given 12/06/2021 8:29 PM CD T 0.5 mg injection 0.4-0.6 mg 0.4-0.6 mg, IV Push, Q2H PRN, Starting on Fri12/06/21 at 0739, Until Fri12/07/21 at 2304, Severe Pain (Use First) Given 12/06/2021 6:15 PM CDT 0.4 mg Given 12/06/2021 12:30 PM CDT 0.25 mg HYDROmorphone PF (DILAUDID) injection 0. 5 mg Given 12/05/2021 8:59 PM CDT 0.5 mg 0.5 mg, IV Push, ONE TIME, 1 dose, On Fri12/05/21 at 2045 ibuprofen (MOTRIN;ADVIL) tablet 200 mg Given 12/03/2021 6:04 AM CDT 200 mg 200 mg, Oral, Q6H PRN, Starting on Fri12/02/21 at 0711, Until Fri12/05/21 at 2159, Headache iohexol (OMNIPAQUE) 350 mg/mL Given 12/01/2021 9:14 AM CDT 100 mL Right Arm injection IV Push, RAD ONE TIME AUTO ACKNOWLEDGE, 1 dose, On 12/01/21 at 0915 levETIRAcetam (KEPPRA) tablet 1,000 mg Given 12/07/2021 9:38 AM CDT 1,000 mg 1,000 mg, Oral, BID, First dose on Fri11/30/21 at 2000, Until Discontinued Given 12/06/2021 7:46 PM CDT 1,000 mg Given 12/06/2021 7:59 AM CDT 1,000 mg lidocaine 1% (PF) injection 4 mL Given 12/03/2021 3:05 PM CDT 4 mL Othe r (comment) 4 mL, Subcutaneous, ONE TIME, 1 dose, On Fri12/03/21 at 1505 ondansetron (ZOFRAN) 4 mg/2 mL injection 4 mg Given 12/06/2021 6:15 PM CDT 4 mg 4 mg, IV Push, Q6H PRN, Starting on Fri11/30/21 at 1831, Until Fri12/07/21 at 2304, Nausea/Vomiting (Use First), Use for patients with vomiting, NPO status, or patient refuses oral dose Given 12/06/2021 12:33 PM CDT 4 mg Given 12/06/2021 7:20 AM CDT 4 mg oxyCODONE (ROXICODONE) tablet 5 mg Given 12/06/2021 5:50 AM CDT 5 mg 5 mg, Oral, Q4H PRN, Starting on Fri12/05/21 at 1835, Until Fri12/06/21 at 0740, Moderate Pain (Use First) Given 12/05/2021 11:36 PM CDT 5 mg Given 12/05/2021 6:56 PM CDT 5 mg oxyCODONE (ROXICODONE) tablet 5-10 mg Given 12/07/2021 2:59 PM CDT 5 mg 5-10 mg, Oral, Q4H PRN, Starting on Fri12/06/21 at 0739, Until Fri12/07/21 at 2304, Moderate Pain (Use First) Given 12/07/2021 9:38 AM CDT 5 mg Given 12/07/2021 3:41 AM CDT 10 mg pantoprazole (PROTONIX) tablet 40 mg Given 12/04/2021 9:32 AM CDT 40 mg 40 mg, Oral, DAILY, First dose on Fri11/30/21 at 1840, Until Discontinued Given 12/03/2021 7:23 AM CDT 40 mg Given 12/02/2021 7:43 AM CDT 40 mg pantoprazole (PROTONIX) tablet 40 mg Given 12/07/2021 12:55 PM CDT 40 mg 40 mg, Oral, DAILY, First dose on Fri12/07/21 at 1225, Until Discontinued perflutren lipid microsphere (DEFINITY) Given 12/04/2021 10:25 A M CDT 3.256 mg suspension 3.256 mg 3.256 mg (rounded from 3.26 mg = 0.5 mL), IV Push, RAD ONE TIME AUTO ACKNOWLEDGE, 1 dose, On Fri12/04/21 at 0750 polyethylene glycol 3350 (MIRALAX;GLYCOLAX) Given 12/07/2021 12: 56 PM CDT 17 g packet 17 g 17 g, Oral, DAILY, First dose on Fri12/07/21 at 1225, Until Discontinued sennosides-docusate sodium (STOOL Given 12/07/2021 12:55 PM CDT 2 tablets SOFTENER/LAXATIVE) 8.6-50 mg tablet 2 tablet 2 tablet, Oral, BID, First dose on Fri12/07/21 at 1225, Until Discontinued VTE prophylaxis contraindicated Contraindication Reason: Bleeding Risk, Does not apply, PROTOCOL, Starting on Fri12/05/21 at 2205, Until Fri12/07/21 at 2304 documented in this encounter Active and Recently Administered Medications Times are shown in CDT. 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 prior to patient arriving in unit.)6428 (Given - Provider: Adan Eldridge RN) 0552 (Given - Provider: Adan Eldridge RN) 1227 (Given - Provider: Meche Devi, JAMES)1815 (Given - Provider: Mandy Jackson RN) 0031 (Given - Provider: Hattie miller RN)0557 (Given - Provider: Hattie Maloney RN)1300 (Given - Provider: Patricia Murcia, JAMES)1800 (Due) 4 mg, IV Push, Q6H, First dose on Fri12/05/21 at 1725, Until Dis continued HYDROmorphone PF (DILAUDID) injection 0.5 mg (COMPLETE D) 2058 (Given - Provider: Adan Eldridge RN) 0.5 mg, IV Push, ONE TIME, 1 dose, On Fri12/05/21 at 204 levETIRAcetam (KEPPRA) tablet 1,000 mg 0757 (Given - P rovider: Josh Tobar RN)2031 (Given - Provider: Adan Eldridge RN) 0759 (Given - Provider: Meche Devi RN)1946 (Given - Provider: Cynthia Mahmood RN) 0938 (Given - Provider: Ludmila Neal RN)1999 (Due) 1,000 mg, Oral, BID, First dose on Fri11/30/21 at 2000, Until Dis continued pantoprazole (PROTONIX) tablet 40 mg 1255 (Given - Provider: Patricia Murcia RN) 40 mg, Oral, DAILY, First dose on Fri12/07/21 at 1225, Until Dis continued polyethylene glycol 3350 (MIRALAX;GLYCOLAX) packet 17 g 1256 (Given - Provider: Patricia Murcia RN) 17 g, Oral, DAILY, First dose on Fri12/07/21 at 1225, Until Disc ontinued sennosides-docusate sodium (STOOL SOFTENER/LAXATIVE) 8.6-50 mg tablet 2 tablet 1255 (Given - Provider: Patricia Murcia RN)1999 (Due) 2 tablet, Oral, BID, First dose on Fri12/07/21 at 1225, Until Di scontinued VTE prophylaxis contraindicated(Linked Group 2) Contraindication Reason: Bleeding Risk, Does not apply, PROTOCOL, Starting on Fri12/05/21 at 2205, Until Fri12/07/21 at 2304 PRN Medication Order 12/05/2021 12/06/2021 12/07/2021 acetaminophen tablet 650 mg 1831 (Given - Provider: David ydson, RN) 1815 (Given - Provider: Mandy Jackson RN) 0000 (Given - Provider: Hattie Maloney, JAMES)0341 (Given - Provider: Hattie Maloney, JAMES)0938 (Given - Provider: Ludmila Neal, JAMES)1459 (Given - Provider: Patricia Murcia, JAMES) 650 mg, Oral, Q4H PRN, Starting on Fri at 1830, Until Fri12/07/21 at 2304, Temp > 38.6 C, Mild Pain (Use First) alum & mag hydroxide-simeth (MAALOX PLUS) suspension 30 mL 30 mL, Oral, TID PRN, Starting on 04/15 at 1831, Until Fri12/07/21 at 2304, GI Upset CEFAZOLIN (ANCEF) 1 G IN NACL 1000 ML IRRIGATION BOTTL E (CANCELED) 1504 (Given - Provider: Tommy Arevalo MD) INTRA-OP ONCE PRN, Starting on Fri12/05/21 at 1504, Until Fri at 1713 hydrALAZINE (APRESOLINE) 20 mg/mL injection 10 mg 2216 (Not Given (removes Due time) - Provider: Adan Eldridge RN - Reason: Held per nurse - Comment: BP decreased after pain med given and patient fell asleep)2259 (Given - Provider: Adan Eldridge RN) 10 mg, IV Push, Q1H PRN, Starting on Fri12/05/21 at 1838, Until Fri12/07/21 at 2304, SBP greater than 140 mmHg HYDROmorphone PF (DILAUDID) 1 mg/mL injection 0.2-0.5 mg (CA NCELED) 0214 (Given - Provider: Adan Eldridge RN)0723 (Given - Provider: Meche Devi RN) 0.2-0.5 mg, IV Push, Q2H PRN, Starting o n Fri12/05/21 at 2109, Until Bee 12/06/21 at 0740, Severe Pain (Use First) HYDROmorphone PF (DILAUDID) 1 mg/mL injection 0.4-0.6 mg 0900 (Given - Provider: Meche Devi, JAMES)1230 (Given - Provider: Meche eDvi RN)181 (Given - Provider: Mandy Jackson RN)2028 (Given - Provider: Cynthia Mahmood RN) 0.4-0.6 mg, IV Push, Q2H PRN, Starting o n Bee 12/06/21 at 0739, Until Fri12/07/21 at 2304, Severe Pain (Use First) lidocaine 1%-EPINEPHrine (1:100,000) injection (CANCEL ED) 1443 (Given - Provider: Tommy Arevalo MD) INTRA-OP ONCE PRN, Starting on Fri12/05/21 at 1443, Until Fri at 1713 ondansetron (ZOFRAN) 4 mg/2 mL injection 4 mg 2337 (Gi mikayla - Provider: Adan Eldridge RN) 0720 (Given - Provider: Meche miller RN)123 (Given - Provider: Meche Devi RN)1814 (Given - Provider: Mandy Jackson RN) 4 mg, IV Push, Q6H PRN, Starting on Fri11/30/21 at 1831, Until Fri12/07/21 at 2304, Nausea/Vomiting (Use First), Use for patients with vomiting, NPO status, or patient refuses oral dose ondansetron (ZOFRAN) tablet 4 mg 4 mg, Oral, Q6H PRN, Starting on 11/30 at 1831, Until Fri12/07/21 at 2304, Nausea/Vomiting (Use First), Use if patient able to tolerate oral dose oxyCODONE (ROXICODONE) tablet 5 mg (CANCELED) 1856 (Gi mikayla - Provider: David Okeefe RN)2336 (Given - Provider: Adan Eldridge RN) 0550 (Given - Provider: Adan Eldridge RN) 5 mg, Oral, Q4H PRN, Starting on 11/23 at 1835, Until Fri12/06/21 at 0740, Moderate Pain (Use First) oxyCODONE (ROXICODONE) tablet 5-10 mg 10 38 (Given - Provider: Meche Devi, RN)1638 (Given - Provider: Mandy Jackson RN)2029 (Given - Provider: Cynthia Mahmood, RN) 0000 (Given - Provider: Hattie miller RN)0341 (Given - Provider: Hattie Maloney RN)0938 (Given - Provider: Ludmila Neal, JAMES)1459 (Given - Provider: Patricia Murcia RN) 5-10 mg, Oral, Q4H PRN, Starting on Fri12/06/21 at 0739, Until Fri12/07/21 at 2304, Moderate Pain (Use First) thrombin (THROMBIN-JMI) solution (CANCELED) 1413 (Give n - Provider: Darinel Dunlap MD - Comment: surgical site) INTRA-OP ONCE PRN, Starting on Fri12/05/21 at 1413, Until Fri at 1713 Linked Groups Order Group 1: DC MED REC REVIEW BY PHARMACYJump to med Discharge Date: 12/07/2021
Discharge L ocation: Home
Anticipated Discharge Time: Now
Discharge Medication Orders: DC Med Orders Final
Does not apply, PROTOCOL, Starting on Fri12/07/21 at 1541, Until Fri12/07/21 at 2304 And Discharge Med Rec Final Review by Pharmacy (COMPLETED) Routine, Order to be placed by provider after medications have been entered for discharge and are ready for review by Pharmacist. This order can be placed multiple times if changes or additions have bee n made to medications for discharge. C hoose the Preliminary DC Med Rec review when placing orders prior to the day of discharge. Choose Final DC Med Rec when all medication changes have been entered. If DC Med Rec needed now, please page the Pharmacist covering the patient to inform them.
Discharge Date: 12/07/2021
Discharge Location: Home
Anticipated Discharge Time: Now Group 2: VTE prophylaxis contraindicatedJump to med Contraindication Reason: Bleeding Risk<b r>Does not apply, PROTOCOL, Starting on Fri12/05/21 at 2205, Until Fri12/07/21 at 2304 And VTE - Prophylaxis Contraindication Communication (COMPLETED) Contraindication Reason: Bleeding Risk documented in this encounter
--- OUTSIDE RECORDS SUMMARY | 2022-03-12 16:01 | XMS_ITS | Encounter Summary ---
:1970 Author Organization [facility] Address [address] [place] [address] Phone Care Team Providers Name Role Phone Unavailable Primary Care Provider Unavailable Reason for Visit Auth/Cert Specialty Diagnoses / Procedures Referred By Contact Refer red To Contact SURGERY Diagnoses Brain Mass Michael Blanco MD [facility] [address] [place], [place] [address] [address] [place] [address] Phone: Fax: Referral ID Status Reason Start Date Expiration Date Visits Requ ested Visits Authorized [id number] 1 1 Encounter Details Date Type Department Care Team Description 12/05/2021 Anesthesia Event OR P4 Monika Mar MD [address] [place] [facility] [address] [place], [place] [id number] [address] [place] [address] [address] [place], [place] [address] Anesthesia Record Procedure Summary Procedure Name Responsible Anesthesia Start Anesthesia Stop Anesthesiologist Time Time CRANIOTOMY WITH OPEN Monika Mar MD 12/05/21 1311 1715 BIOPSY WITH STEALTH (Left: Head) Events Date Time Event Comment 12/05/2021 1228 Pre Start 1228 Pre-op End 1311 An Start 1311 An Start Data 1311 IOPAE The intraoperati ve pre-anesthetic evaluation was completed with n o changes noted from the pre-operative anesthesia evalu ation. 1319 An Induction 1324 An Intubation Due to pt allerg y to adhesive tape, ETT secured with twill ties and p added with 4x4 on each side of the lips. 1326 an micheal now Left arterial li ne placed by Dr. Larose. 1651 An Emergence 1651 an micheal now 1658 Extubation 1700 an stop data 1715 An Stop Name Total fentaNYL (SUBLIMAZE) injection 400 mcg lidocaine 2% injection 100 mg propofol (DIPRIVAN) injection 230 mg rocuronium (ZEMURON) injection 50 mg ondansetron (ZOFRAN) injection 4 mg dexamethasone (DECADRON) 4 mg/mL injection 20 mg phenylephrine (ROSALIA-SYNEPHRINE) 0.2 mg/mL infusion 0.55 mg ceFAZolin (ANCEF) 2 g IVPB 2 g dexmedetomidine (PRECEDEX) 100 mcg/mL injection 8 mcg mannitol 20% infusion 50 g glycopyrrolate (ROBINUL) 0.4mg/2mL injection 0.6 mg neostigmine (BLOXIVERZ) 1 mg/mL injection 2 mg lactated ringers infusion 700 mL lactated ringers infusion 1,000 mL Agents Name O2 Sevoflurane Air Blood No blood administrations on file. Lines, Drains, and Airways Type Details Placement Removal Incision: 12/05/21; 1654; N; Head; 12/05/21 1654 by José Miguel Rivera RN Peripheral IV 12/01/21 (present upon 12/01/21 0000 by Nagi, 1307 by assessment); 0000; Left; JAMES Guerrero Erin E, RN Antecubital; 12/07/21; 1307 Arterial Line 12/05/21; 1326; Small 12/05/21 1326 by 12/05/212000 by lumen; Left Radial; Patricia Zhou APRN, Fjers tad, Ali M RN Placed in OR; 12/05/21; [employer]SULTANT 2000 (duplicate charting) Arterial Line 12/05/21; 1335; Small 12/05/21 1335 by 12/06/21 1400 by lumen; Left Radial; Patricia Zhou APRN, Meche Figueroa, Placed in OR; 12/06/21; MARILY RN 1400 Urinary Catheter 12/05/21; 1418; OR Prone 12/05/21 1418 by 12/05 1908 by >2hrs; 16; indwelling Javy Clarke, David Bull RN double lumen catheter; 10 mL; Placed in OR; javy clarke RN; 12/05/21; 1908 documented in this encounter Social History Tobacco Use Types Packs/Day Years Used Date Smoking Tobacco: Never Assessed Sex Assigned at Date Recorded Not on file COVID-19 Exposure Response Date Recorded In the last 10 days, have you been in contact with No / Unsu re 11/30/2021 8:21 PM CDT someone who was confirmed or suspected to have Coronavirus/COVID-19? documented as of this encounter OR Notes Anesthesia Postprocedure Evaluation - Monika Mar MD - 12/05/2021 8:11 PM CDT Anesthesia Post Eval Patient: [facility] Procedure(s) Performed: CRANIOTOMY WITH OPEN BIOPSY WITH STEALTH (Left Head) I've examined the patient and determined that he/she is medically stable and may be discharged from PACU. Anesthesia type: General () Patient location: PACU Patient status: Post-procedure vital signs reviewed and stable Level of Consciousness: Sleepy Post-op pain: Adequate Respiratory: Stable Cardiovascular: Stable PONV status: none Fluid status: Acceptable Anesthetic Complications: No immediate anesthesia complications Last Vitals: Vitals Value Taken Time BP 129/70 12/05/21 1740 Temp 36.6 ??C (97.9 ??F) 12/05/211999 Pulse 76 12/05/212009 Resp 18 12/05/212009 SpO2 95 % 12/05/212009 Vitals shown include unvalidated device data. Anesthesia Procedure Notes - Patricia Zhou APRN, MARILY - 12/05/2021 1:58 PM CDTAssociated Order(s): Intubation/Airway AIRWAY/INTUBATION PROCEDURE GlideScope (Type: Surgical Anesthesia) Process/Method: sedated and paralyzed Indications for procedure: surgery Assessment: TMD <3 finger breadths and vocal cords open and clear Preoxygenation: mask Device Device used: Glidescope Supporting device: Blade size: 3 The patient was intubated with a 7.0 mm standard endotracheal tube inflated to seal and secured at 22 cm to Teeth Grade: II Sellicks used Narrative 2 intubation attempt(s) confirmed in 30-60 sec - Glidescope utilitized as pt mother was worried about a difficult intubation, as the mother has been difficult in the past. MAC 3 glidescope used for attempted #1, by this W[employer] SALES CONSULTANT, unable to make the ETT curve into the cords, grade [address] Larose took over, unable to pass the ETT. This W[employer] SALES CONSULTANT changed to a low profile MAC 3 glidescope, there was some blood present in the oral pharyngeal space, suctioned, now a grade 1 view. ETT passed with ease. Intubation Assessment: +ETCO2, EBBS and fog in ETT Ease of masking (I-easy to IV-difficult): I Ease of intubation (I-easy to IV-difficult): II Dentition Assessment: dentition unchanged and oral mucosa unchanged Performed by: Anesthesiologist: Michael Larose MD [employer] SAL[employer] CONSULTANT: Patricia Zhou APRN, CRNA Additional Notes Recommend low profile MAC 3 glidescope for future intubations. Anterior airway. Events: Pre-op Start: 12/05/2021 12:28 PM Pre-op End: 12/05/2021 12:28 PM Anesthesia Start: 12/05/2021 1:11 PM Start Data Collection: 12/05/2021 1:11 PM IOPAE: 12/05/2021 1:11 PM Induction: 12/05/2021 1:19 PM Intubation: 12/05/2021 1:24 PM Pain Med Given Intravenous: 12/05/2021 1:41 PM Pain Med Given Intravenous: 12/05/2021 1:19 PM Pain Med Given Intravenous: 12/05/2021 1:28 PM Anesthesia Preprocedure Evaluation - Michael Larose MD - 12/05/2021 8:49 AM CDT Anesthesia Pre-Evaluation Summary Statement: This is a 51 y.o. year old patient scheduled for CRANIOTOMY WITH OPEN BIOPSY WITH STEALTH (Left Head). 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 Psychiatric - negative ROS Cardiovascular - negative ROS echocardiogram reviewed Rhythm: regular Rate: normal ROS comment: TTE performed on 12/04/2021 shows: The estimated left ventricular ejection fraction is 65 %. There is no left ventricular wall motion abnormality identified. The estimated pulmonary artery systolic pressure is 24 mmHg + RA pressure. 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 The average global longitudinal strain is normal (<= -16%) at -23.9 %. Strain calculated using a [employer] Epiq CVx . Normal right ventricular size and function. Normal left ventricular cavity size. Normal estimated left ventricular ejection fraction . No wall motion abnormality . Endo - negative ROS Musculoskeletal - negative ROS HEENT - negative ROS GI (+) obesity, Hematologic/Onc - negative ROS ROS comment: Hgb 11.7. Valid type and screen. Antibody negative. Platelets 266 /Renal/Rack Cleaner - negative ROS ROS comment: Potassium 3.9 Creatinine 0.84 Glucose 91 Airway Mallampati: II TM distance: >3 FB Neck ROM: full Mouth Opening: good Dental - normal exam Risk of dental damage discussed with patient/guardian who acknowledges understanding. OB Other (-) chronic pain, fibromyalgia, dasilva and scar Physical Exam Anesthesia Plan ASA 3 general (With arterial catheterization) intravenous induction Maintenance: Balanced Post-op Care: routine analgesia Anesthetic plan and risks discussed with patient. The use of blood products has been discussed with the patient, and consented by patient. Plan discussed with W[employer] SALES CONSULTANT. Vitals: 12/05/21 0739 BP: 109/71 Pulse: 56 Resp: 18 Temp: 36.6 ??C (97.9 ??F) SpO2: 95% documented in this encounter Miscellaneous Notes Anesthesia Extubation Note - Brandin Stoddard SRNA - 12/05/2021 5:14 PM CDT Anesthesia Extubation Note At the time of extubation the patient was breathing spontaneously, follows commands, awake, orally suctioned, vital signs stable and within normal limits, headlift for 5 seconds, 4-4 on TOF with sustained tetany, strong hand grasps for 5 seconds, briskly follows verbal commands and eyes open. Extubation details: Spontaneous respirations, Oral ETT removed and Pharyngeal reflexes present Anesthesia Handoff Note - Brandin Stoddard SRNA - 12/05/2021 5:14 PM CDT Anesthesia Post Handoff Patient: Mia Cedillo Procedure(s) Performed: CRANIOTOMY WITH OPEN BIOPSY WITH STEALTH (Left Head) Patient was stable and nail beds/oral mucosa pink at time of handoff. Patient location: PACU Transportation: Patient was not placed on High Flow Oxygen. . Anesthesia Type: general Report to RN Last Vitals: Vitals: 12/05/21 1710 BP: 130/70 Pulse: 76 Resp: 16 Temp: SpO2: 94% documented in this encounter Plan of Treatment Not on filedocumented as of this encounter Procedures Procedure Name Priority Date/Time Associated Diagnosis Comme nts INTUBATION Routine 12/05/2021 1:58 PM Results for this CDT procedure are i n the results section . documented in this encounter Results Intubation/Airway (12/05/2021 1:58 PM CDT) Narrative Patricia Zhou APRN, CRNA - 12/05/2021 1:58 PM CDT Patricia Zhou APRN, CRNA ? 12/05/2021 ??2:03 PM AIRWAY/INTUBATION PROCEDURE GlideScope ??(Type: Surgical Anesthesia) Process/Method: sedated and paralyzed ?? Indications for procedure: surgery Assessment: TMD <3 finger breadths and v ocal cords open and clear Preoxygenation: mask Device Device used: Glidescope Supporting device: ?? Blade size: 3 The patient was intubated with a 7.0 mm standard endotracheal tube inflated to seal and secured at 22 cm to Teeth Grade: II Sellicks used Narrative 2 intubation attempt(s) confirmed in 30- 60 sec ? - Glidescope utilitized as pt mot her was worried about a difficult intubation, as the mother has been diffi cult in the past. MAC 3 glidescope used for attempted #1, by this [employer] SALES CONSULTANT, michael ble to make the ETT curve into the cords, grade [address] Larose took over, unable to pass the ETT. This W[employer] SALES CONSULTANT changed to a low profile MAC 3 glidescop e, there was some blood present in the oral pharyngeal space, suctioned, no w a grade 1 view. ETT passed with ease. ?? Intubation Assessment: +ETCO2, EBBS and fog in ETT Ease of masking (I-easy to IV-difficult) : I Ease of intubation (I-easy to IV-difficu lt): II Dentition Assessment: dentition unchange d and oral mucosa unchanged Performed by: Anesthesiologist: Michael Larose MD [employer] SALES CONSULTANT: Patricia Zhou APRN, CRNA Additional Notes Recommend low profile MAC 3 glidescope f or future intubations. Anterior airway. Events: Pre-op Start: 12/05/2021 12:28 PM Pre-op End: 12/05/2021 12:28 PM Anesthesia Start: 12/05/2021 ??1:11 PM Start Data Collection: 12/05/2021 ??1:11 PM IOPAE: 12/05/2021 ??1:11 PM Induction: 12/05/2021 ??1:19 PM Intubation: 12/05/2021 ??1:24 PM Pain Med Given Intravenous: 12/05/2021 ?? 1:41 PM Pain Med Given Intravenous: 12/05/2021 ?? 1:19 PM Pain Med Given Intravenous: 12/05/2021 ?? 1:28 PM Michael Larose MD PROCEDURES documented in this encounter Visit Diagnoses Not on filedocumented in this encounter Administered Medications Inactive Administered Medications - up to 3 most recent administrations Medication Order MAR Action Action Date Dose Rate Site ceFAZolin (ANCEF) IVPB Given 12/05/2021 1:55 PM CDT 2 g Intravenous, INTRA-OP PRN ONCE MAY REPEAT, Starting on Fri12/05/21 at 1355, Until Fri12/05/21 at 1715 dexamethasone (DECADRON) 20 mg/ 5mL inje ction Given 12/05/2021 3:52 PM CDT 10 mg IV Push, INTRA-OP PRN ONCE MAY REPEAT, Starting on Fri12/05/21 at 1342, Until Fri12/05/21 at 1715 Given 12/05/2021 1:42 PM CDT 10 mg dexmedetomidine (PRECEDEX) injection Given 12/05/2021 3:05 PM CDT 4 mcg IV Push, INTRA-OP PRN ONCE MAY REPEAT, Starting on Fri12/05/21 at 1452, Until Fri12/05/21 at 1715 Given 12/05/2021 2:52 PM CDT 4 mcg fentaNYL (SUBLIMAZE) 100 mcg/2mL injecti on Given 12/05/2021 4:46 PM CDT 50 mcg Intravenous, INTRA-OP PRN ONCE MAY REPEAT, Starting on Fri12/05/21 at 1341, Until Fri12/05/21 at 1715 Given 12/05/2021 4:45 PM CDT 25 mcg Given 12/05/2021 4:41 PM CDT 25 mcg glycopyrrolate (ROBINUL) injection Given 12/05/2021 4:51 PM CDT 0.6 mg IV Push, INTRA-OP PRN ONCE MAY REPEAT, Starting on Fri12/05/21 at 1651, Until Fri12/05/21 at 1715 lactated ringers infusion New Bag 12/05/2021 1:11 PM CDT Intravenous, PERIOP CONTINUOUS, Starting on Fri12/05/21 at 1320, Until Fri12/05/21 at 1715 lactated ringers infusion New Bag 12/05/2021 4:24 PM CDT Intravenous, PERIOP CONTINUOUS, Starting on Fri12/05/21 at 1335, Until Fri12/05/21 at 1715 New Bag 12/05/2021 1:32 PM CDT lidocaine 2% injection Given 12/05/2021 1:19 PM CDT 100 mg Intravenous, INTRA-OP PRN ONCE MAY REPEAT, Starting on Fri12/05/21 at 1319, Until Fri12/05/21 at 1715 mannitol (OSMITROL) 20% infusion Given 12/05/2021 3:13 PM CDT 50 g Intravenous, INTRA-OP PRN ONCE MAY REPEAT, Starting on Fri12/05/21 at 1513, Until Fri12/05/21 at 1715 neostigmine (BLOXIVERZ) 1 mg/mL injectio n Given 12/05/2021 4:51 PM CDT 2 mg Intravenous, INTRA-OP PRN ONCE MAY REPEAT, Starting on Fri12/05/21 at 1651, Until Fri12/05/21 at 1715 ondansetron (ZOFRAN) 4 mg/2 mL injection Given 12/05/2021 4:22 PM CDT 4 mg IV Push, INTRA-OP PRN ONCE MAY REPEAT, Starting on Fri12/05/21 at 1622, Until Fri12/05/21 at 1715 phenylephrine (ROSALIA-SYNEPHRINE) Infusing 12/05/2021 4:14 0.2 mc g/kg/min 5.652 mL/hr 0.2 mg/mL infusion PM CDT Intravenous, PERIOP CONTINUOUS, Starting on Fri12/05/21 at 1535, Until Fri12/05/21 at 1715 Restarted 12/05/2021 3:57 PM CDT 0.1 mcg/kg/min 2.826 mL/hr New Bag 12/05/2021 3:34 PM CDT 0.1 mcg/kg/min 2.826 mL/hr propofol (DIPRIVAN) 10 mg/mL injection Given 12/05/2021 2:30 PM CDT 30 mg emulsion Intravenous, INTRA-OP PRN ONCE MAY REPEAT, Starting on Fri12/05/21 at 1319, Until Fri12/05/21 at 1715 Given 12/05/2021 1:19 PM CDT 200 mg rocuronium bromide (ZEMURON) 10 mg/mL Given 12/05/2021 1:19 PM CDT 50 mg injection IV Push, INTRA-OP PRN ONCE MAY REPEAT, Starting on Fri12/05/21 at 1319, Until Fri12/05/21 at 1715 documented in this encounter
--- OUTSIDE RECORDS SUMMARY | 2022-03-12 16:01 | XMS_ITS | Encounter Summary ---
:1970 Author Organization [facility] Address [address] [place] [address] Phone Care Team Providers Name Role Phone Unavailable Primary Care Provider Unavailable Reason for Visit Auth/Cert Specialty Diagnoses / Procedures Referred By Contact Refer red To Contact SURGERY Diagnoses Brain Mass Korin Blanco MD St[address] [place], [place] [address] [address] [place] [address] Phone: Fax: Referral ID Status Reason Start Date Expiration Date Visits Requ ested Visits Authorized [id number] 1 1 Encounter Details Date Type Department Care Team Description 12/05/2021 Surgery OR P4 Darinel Dunlap CRANIOTOMY WITH OPEN [address] Mireya Berry MD BIOPSY WITH STEALTH P4.[address] [place], [place] [address] [place], [place] [phone] (Wo rk) Social History Tobacco Use Types [...] Sign Reading Time Taken Comments Blood Pressure 118/77 12/05/2021 10:44 AM CDT Pulse 58 12/05/2021 10:44 AM CDT Temperature 36.9 ??C (98.4 ??F) 12/05/2021 10:44 AM CDT Respiratory Rate 18 12/05/2021 10:44 AM CDT Oxygen Saturation 95% 12/05/2021 10:44 AM CDT Inhaled Oxygen Concentration - - [...] intermittent word finding difficulties and 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 3. Unchanged 3 mm of zngv-ab-bcqts midline shift. 4. Vague hypodense masslike area [...] intact Motor: Follows commands x4 extremities, 5/5 laborer gold leaf strength and plantar/dorsiflexion bilaterally?? Sensory: Sensation intact in all 4 extremities?? ALLERGIES Allergies Allergen Reactions ??? Adhesive Tape Itching/Pruritus PLANNED DISCHARGE ORDERS: Medication List START taking these medications acetaminophen 325 mg tablet Take 2 tablets (650 mg) by mouth every 4 hours as needed for Mild Pain. dexamethasone 4 mg Tabs Commonly known as: DECADRON Take one tablet (4mg) per the schedule below /16: Q6H 17: Q6H 18: Q6H 12/11: Q8H 12/12: Q8H 12/13: Q8H [...] Your Medications These medications were [facility] [place] [facility] [place] [address] Hours: 17/03 ?? acetaminophen 325 mg tablet ?? dexamethasone 4 mg Tabs ?? levETIRAcetam 1000 mg Tabs ?? oxyCODONE 5 mg tablet Discharge Procedure Orders Special activity instructions Order Comments: Seizure Safety: Per [place] regulations individuals are prohibited from operating a motor vehicle within 3 months following any seizure or other episode with sudden unconsciousness or inability to sit up, and that are required to report any future such seizure to the [facility] within 30 days after the event. I [...] tablet 0 12/07/2021 4 mg oral TABS 4/16: Take one tablet every 6 hours [...] documented as of this encounter Progress Notes Nanci Gaytan - 12/07/2021 1:17 PM CDT Clinical Coordinator [...] Receiving: none Income Source: employed Primary Insurance: [place] [employer] [place] Secondary Insurance: N/A PLAN Plan/Interventions Discharge Plan: [...] Gaytan RN, MSN Inpatient Float Clinical coordinator [phone] [employer] Covering Green & Purple surgery. Nanci Gaytan, 12/07/2021 1:19 PM Hattie Adams PA-C - 12/07/2021 8:36 AM CDT NEUROSURGERY PROGRESS NOTE Guillermina Kelsey [...] intact Motor: Follows commands x4 extremities, 5/5 laborer gold leaf strength and plantar/dorsiflexion bilaterally?? Sensory: Sensation intact [...] Dunlap MD - 12/07/2021 12:00 [place] [address] [facility]#: [id number] PATIENT: GUILLERMINA KELSEY : 1970 DATE DICTATED: 12/07/2021 SURGERY STAFF DAILY PROGRESS NOTE DATE OF SERVICE: 12/07/2021 I saw and evaluated the patient. I discussed management with residents, MANAGER APPLIED, and PAs on the Neurosurgery team and [...] MD Staff Physician Surgery Service Received in Palliative Nurse: 12/07/2021 17:08:12 M: /[id number] WG/MODL Jimena Allison PA-C - 12/06/2021 5:02 [...] intact Motor: Follows commands x4 extremities, 5/5 laborer gold leaf strength and plantar/dorsiflexion bilaterally?? Sensory: Sensation intact in all 4 extremities LABS: BMP Lab Results Component Value Date/Time NA 140 12/05/2021 0458 K 3.9 12/05/2021 0458 CHLORIDE 107 12/05/2021 0458 CO2 27 12/05/2021 0458 GLU 91 12/05/20218 UN 29 (H) 12/05/2021 0458 CR 0.84 12/05/20218 CA 8.7 12/05/2021 0458 CBC Lab Results Component Value Date/Time WBC 7.60 12/05/2021 0458 RBC 3.93 12/05/2021 0458 HGB 11.7 12/05/2021 0458 HCT 36.5 12/05/20218 PLT 266 12/05/20218 RADIOLOGY: Most recent imaging was reviewed with the neurosurgery team Darinel Dunlap MD - 12/06/2021 12:00 [place] [address] [facility]#: [id number] PATIENT: GUILLERMINA KELSEY : 1970 DATE DICTATED: 12/06/2021 SURGERY STAFF DAILY PROGRESS NOTE DATE OF SERVICE: 12/06/2021 I saw and evaluated the patient. I discussed management with residents, MANAGER APPLIED, and PAs on the Neurosurgery team and [...] MD Staff Physician Surgery Service Received in Palliative Nurse: 12/06/2021 17:46:16 M: /[id number] WG/MODL Bob López MD - 12/05/2021 5:37 AM CDT NEUROSURGERY PROGRESS NOTE Guillermina Kelsey : 1970 Sex: female Assessment: 51 y.o. female who is otherwise healthy began noticing word finding difficulty 4/7 whileon a zoom meeting for work. Her [...] biopsy 12/05 Activity as tolerated Decadron 11/29-12/03 [facility] Neurology consulted - appreciate recs -echo (TTE) - negative -LP (cell count, protein, glucose, oligoclonal bands, IL-2, flow/cytology) - negative to date -Hep B, Hep C, HIV - negative - Please contact the Neurosurgery Resident on-call with questions or new concerns Discussed with Neurosurgery Chief Resident. Bob Olvera DDS [facility] PGY2 Neurosurgery Service Interval 24-hour Events/Subjective: Discussion [...] WBC 7.51 12/01/2021 0028 RBC 3.74 (L) 12/01/2021 0028 HGB 11.2 (L) 12/01/202127 HCT 34.8 12/01/20218 PLT 271 12/01/202127 MCV 93.0 12/01/20218 MCH 29.9 12/01/20218 MCHC 32.2 12/01/202127 RDW 13.8 12/01/202127 MPV 10.9 12/01/202127 Lab Results Component Value Date/Time NA 139 12/01/202127 K 4.3 12/01/202127 CHLORIDE 108 12/01/202127 CO2 21 (L) 12/01/202127 GLU 111 (H) 12/01/202127 UN 10 12/01/202127 CR 0.62 12/01/202127 CA 8.6 12/01/202127 Korin Blanco MD - 12/05/2021 12:00 [place] [address] [facility]#: [id number] PATIENT: GUILLERMINA KELSEY : 1970 DATE DICTATED: 12/05/2021 SURGERY STAFF DAILY PROGRESS NOTE DATE OF SERVICE: 12/05/2021 I saw and evaluated the patient. I discussed management with residents, MANAGER APPLIED, and PAs on the Neurosurgery team and [...] MD Staff Physician Neurosurgery Service Received in Palliative Nurse: 12/05/2021 20:29:52 M: /[id number] TB/MODL Bob Olvera MD - 12/04/2021 7:35 [...] 12/04 Plan: Activity as tolerated Decadron 11/29-12/03 [facility] Neurology consulted - appreciate recs -echo (TTE) - planned for 12/04 @9am -LP (cell count, protein, glucose, oligoclonal bands, IL-2, flow/cytology) - negative to date -Hep B, Hep C, HIV - negative - Please contact the Neurosurgery Resident on-call with questions or new concerns Discussed with Neurosurgery Chief Resident. Bob Olvera DDS [facility] PGY2 Neurosurgery Service Interval 24-hour Events/Subjective: LP [...] Value Date/Time NA 139 12/01/20218 K 4.3 12/01/202127 CHLORIDE 108 12/01/202127 CO2 21 (L) 12/01/202127 GLU 111 (H) 12/01/202127 UN 10 12/01/202127 CR 0.62 12/01/202127 CA 8.6 12/01/202127 Darinel Dunlap MD - 12/04/2021 12:00 [place] [address] [facility]#: [id number] PATIENT: GUILLERMINA KELSEY : 1970 DATE DICTATED: 12/04/2021 SURGERY STAFF DAILY PROGRESS NOTE DATE OF SERVICE: 12/04/2021 I saw and evaluated the patient. I discussed management with residents, MANAGER APPLIED, and PAs on the Neurosurgery team and [...] MD Staff Physician Surgery Service Received in Palliative Nurse: 12/04/2021 19:10:08 M: /[id number] WG/MODL Nic Vega MD - 12/03/2021 9:14 AM CDT NEUROLOGY CONSULT PROGRESS NOTE - PGY 1 Guillermina Delvining : 1970 Sex: female Overnight Events: No [...] Normal tone throughout, shoulder abduction 5/5 bilaterally,finger laborer gold leaf 5/5 bilaterally, knee extension/flexion 5/5 bilat, plantarflexion 5/5 bilat, dorsiflexion 5/5 bilat. Sensory: sensation intact to pinprick on arms and legs bilaterally Coordination: afndda-gxej-unwkmx intact bilaterally Reflexes: plantars downgoing bilaterally Gait: deferred Labs and imaging reviewed by me: 12/03: Negative HIV, negative hepatitis B surface antibody, negative hepatitis C antibody, negative hepatitis B surface antigen. Assessment and Plan Guillermina Kelsey is a 51 y.o. female with past medical history of hypertension and benign thyroid nodules presenting from [facility] for further evaluation of new brain mass [...] episode. In agreement with cont inuation of Keolenara and Decadron at this time. On MRI [...] with Neurosurgery Chief Resident. Bob Olvera DDS [facility] PGY2 Neurosurgery Service Interval 24-hour Events/Subjective: No [...] Value Date/Time NA 139 12/01/202127 K 4.3 12/01/2021 0028 CHLORIDE 108 12/01/2021 0028 CO2 21 (L) 12/01/2021 0028 GLU 111 (H) 12/01/2021 0028 UN 10 12/01/2021 0028 CR 0.62 12/01/2021 0028 CA 8.6 12/01/2021 0028 Korin Blanco MD - 12/03/2021 12:00 [place] [address] [facility]#: [id number] PATIENT: GUILLERMINA KELSEY : 1970 DATE DICTATED: 12/03/2021 SURGERY STAFF DAILY PROGRESS NOTE DATE OF SERVICE: 12/03/2021 I saw and evaluated the patient. I discussed management with residents, MANAGER APPLIED, and PAs on the Neurosurgery team and [...] MD Staff Physician Neurosurgery Service Received in Palliative Nurse: 12/03/2021 18:01:00 M: /[id number] TB/MODL Bob Olvera MD - 12/02/2021 5:58 [...] with Neurosurgery Chief Resident. Bob Olvera DDS [facility] PGY2 Neurosurgery Service Interval 24-hour Events/Subjective: No [...] with Neurosurgery Chief Resident. Bob Olvera DDS [facility] PGY2 Neurosurgery Service Interval 24-hour Events/Subjective: No [...] WBC 7.51 12/01/2021 0028 RBC 3.74 (L) 12/01/20218 HGB 11.2 (L) 12/01/2021 0028 HCT 34.8 12/01/20218 PLT 271 12/01/2021 002 MCV 93.0 12/01/202127 MCH 29.9 12/01/202127 MCHC 32.2 12/01/202127 RDW 13.8 12/01/202127 MPV 10.9 12/01/202127 Lab Results Component Value Date/Time NA 139 12/01/202127 K 4.3 12/01/202127 CHLORIDE 108 12/01/202127 CO2 21 (L) 12/01/202127 GLU 111 (H) 12/01/202127 UN 10 12/01/202127 CR 0.62 12/01/202127 CA 8.6 12/01/202127 Korin Blanco MD - 12/01/2021 12:00 [place] [address] [facility]#: [id number] PATIENT: GUILLERMINA KELSEY : 1970 DATE DICTATED: 12/01/2021 SURGERY STAFF DAILY PROGRESS NOTE DATE OF SERVICE: 12/01/2021 I saw and evaluated the patient. I discussed management with residents, MANAGER APPLIED, and PAs on the Neurosurgery team and [...] MD Staff Physician Neurosurgery Service Received in Palliative Nurse: 12/01/2021 10:02:46 M: /[id number] TB/MODL Susana Taylor RN - 11/30/2021 8:10 [...] extremities, strength 5/5 b/l wrist flex/ext, hand laborer gold leaf, elbow flex/ext, shoulder abduction, hip flexion, knee [...] Shelton PA-C, 11/30/2021 6:36 PM Neurosurgery Pager [phone] or SkyJam documented in this encounter Procedure Notes Chandan [...] to verify the correct patient, procedure, equipment, field support representative and site/side marked as required. Anesthesia: local [...] documented in this encounter Consult Notes Hattie Mathis PharmD - 12/07/2021 4:17 PM CDTAssociated Order(s): DISCHARGE MED REC FINAL REVIEW BY PHARMACY PHARMACY DISCHARGE NOTE Guillermina Nguyen : 1970 Sex: female Pharmacy service was [...] 418: Take one tablet every 6 hours 419: Take one tabet every 8 hours 420: Take one tabet every 8 hours 421: Take one tabet every 8 hours 422: Take one tablet every 12 hours 423: Take one tablet every 12 hours 424: Take one tablet every 12 hours 425: Take one tablet daily 12/18: Take one [...] Tabs Take 1 tablet by mouth daily. TREATING ENGINEER HELPER med Assessment: Pertinent points to note: No changes to TREATING ENGINEER HELPER medications. I have reviewed the patient's medications for discharge and have discussed the necessary changes with the provider. Changes have been made and medication list updated and complete. Please page with any questions. Hattie Matihs PharmD 12/07/2021 16:17 For questions regarding this note, please contact pharmacist on service at [facility] ([facility]) or [phone]. If no response within needed timeframe, please contact central pharmacy via phone at [phone]. Jacquie Link MD - 12/05/2021 5:16 PM CDT SICU CONSULT - G3 Guillermina Kelsey : 1970 Sex: female Summary: 51 [...] GLU 91 12/05/2021 0458 UN 29 (H) 12/05/20218 CR 0.84 12/05/20218 CA 8.7 12/05/20218 Lab Results Component Value Date/Time WBC 7.60 12/05/2021 0458 RBC 3.93 12/05/2021 0458 HGB 11.7 12/05/20218 HCT 36.5 12/05/20218 PLT 266 12/05/2021457 Labs and imaging reviewed. Jacquie Link MD, [...] on keppra and decadron and transferred to [facility] [place]surgical evaluation. 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 Ramirez. Thank you for involving neurology in the care of this patient. Please do not hesitate to call with questions/concerns. General neurology pager [phone]. We will sign off, please page the team with new concerns or if laboratory values returnabnormal. Cherelle Alvarez MD Neurology PGY-3 Seizure Safety: Per [place] regulations individuals are prohibited from operating a [...] brought her into a local emergency department ([facility]) that night. She was treated with keppra and steroids and subsequently transferred to [facility] for imaging findings of brain mass. Per Ms. Kelsey she had not noticed any word finding difficulties prior to this initial event. She does not endorse any difficulties at work or with relationships, people noticing differences in language or any perceived difficulty. She does endorse that she has been having headache for few months. She describes a dull headache in the back of her head that had been responsive to nzkv-vgl-numgyqr medications. Does not endorse that the headache [...] improvement and is currently able to do [employer] (language learning software) on her phone in [...] substance use disorder who lives in a [place]. 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 Has not [...] right handed and her primary language is Nauruan. PAST MEDICAL HISTORY: HTN Goiter/thyroid nodules PRIOR [...] Mother with breast cancer, father with unspecified FIELD MERCHANDISER infection. REVIEW OF SYSTEMS: Complete 10-point ROS [...] labs and imaging since admission reviewed in [facility]. Lab results: Lab Results Component Value Date/Time NA 139 12/01/2021 0028 K 4.3 12/01/20218 CHLORIDE 108 12/01/2021 002 CO2 21 (L) 12/01/202127 GLU 111 (H) [...] abdomen or pelvis. Reading Radiologist: Harrison Umana BRAIN W/O + WITH CONTRAST 11/30/2021 (Preliminary) This result has not been signed. Information might be incomplete. Narrative Exam: Limited Stealth MR for preoperative/stereotactic planning, 11/30/2021 Indication: Brain mass or lesion please do with [employer] protocol. Comparison: Brain MRI from earlier today. Technique: Thin-section susceptibility-weighted, T1-weighted, and T2-weighted MR imaging was performed of the skull after intravenous contrast administration. The images were transferred to the [employer] Workstation for surgical planning. Amide proton transfer(APT)-weighted [...] evidence thus far for systemic malignancy with FIELD MERCHANDISER metastatic, negative CT CAP. It is possible that sarcoidosis could have a similar presentation, so could obtain echo to assess for extra FIELD MERCHANDISER manifestations (although no pulmonary or cardiac symptoms [...] hesitate to call with questions/concerns. General neurologypager [phone]. We will continue to follow . Cherelle [...] intact Motor: Follows commands x4 extremities, 5/5 laborer gold leaf strength and plantar/dorsiflexion bilaterally Sensory: Sensation intact [...] 4mg q6H - Continue seizure prophylaxis with Jimena Chambers PA-C, 12/05/2021 9:10 AM OR Surgeon - Darinel Dunlap MD - 12/05/2021 12:00 [place] [address] [facility]#: [id number] PATIENT: GUILLERMINA KELSEY : 1970 DATE OF [...] on CT. An MRI was obtained showing [id number] and flair abnormalities in the left temporal [...] The head was affixed to the David header operator. All pressure points were padded. Stealth was [...] around the edges of the tumor. The supervisor garment manufacturing drill was then used to create a [...] MD Staff Physician Surgery Service Received in Palliative Nurse: 12/05/2021 17:41:26 M: /[id number] AE/MODL documented in this encounter Miscellaneous Notes Discharge non-MD/non-CRAIG Summaries - Ludmila Neal RN - 12/07/2021 6:24 PM CDT [...] if they call back with questions. Ludmila Neal, RN, 12/07/2021 6:26 PM Nursing Assessment - [...] equal, round, reactive to light. Bilateral hand retail custodial associate equal and strong, and plantar and dorsi [...] Cardiac Assessment Within Defined Limits except for: Stripper Cutter Machine - remote telemetry Respiratory Within defined limits [...] informed of Patient Valuables and Belongings Policy (#[id number]): Policy reviewed - patient/family/designee has indicated that he/she will assume responsibility of patient valuables Transferred from Unit/Bed: [facility] Transferred to Unit/Bed: [facility]4 ,8795 Received By:: Susana Liz RN A: Transferred patient from [facility] to [facility]2 01 at 2255, via wheelchair. Transferred with: RN [...] Cardiac Assessment Within Defined Limits except for: Stripper Cutter Machine - bedside telemetry Lead Monitored: Lead II [...] and adjust plan of care PRN. Mandy Jackson, RN, 12/06/2021 7:22 PM Neurologic/Cognitive Assessment Within Defined Limits except for: Speech: Garbled Comments: A&Ox4, speech garbled at times Frequent Neuro Assessments have been documented in the flowsheets HEENT Assessment Within Defined Limits except for: Head/Face Symptoms: lesion(s) Cardiac Assessment Within Defined Limits except for: Stripper Cutter Machine - bedside telemetry Lead Monitored: Lead II [...] Cardiac Assessment Within Defined Limits except for: Stripper Cutter Machine - bedside telemetry Lead Monitored: Lead II [...] Cardiac Assessment Within Defined Limits except for: Stripper Cutter Machine - bedside telemetry Lead Monitored: Lead II [...] has not been able to urinate after webster was taken out at 1900. Bladder scan done for 757 ml and straight catheterization done for 700 ml with 51 ml residual. Labs have been drawn and pain under control. Will continue to monitor Neurologic/Cognitive Within Defined Limits HEENT Assessment Within Defined Limits except for: Cardiac Assessment Within Defined Limits except for: Stripper Cutter Machine - bedside telemetry ECG Rhythm: normal sinus [...] Cardiac Assessment Within Defined Limits except for: Stripper Cutter Machine - bedside telemetry ECG Rhythm: normal sinus rhythm OH Interval (sec): 0.19 QRS Interval (sec): 0.07 [...] Cardiac Assessment Within Defined Limits except for: Stripper Cutter Machine - bedside telemetry ECG Rhythm: normal sinus [...] Arevalo MD - 12/05/2021 2:32 PM CDT [facility] Immediate Post Operative Note Note written: Day [...] Implant Name Type Inv. Item Serial No. Orthotics Prosthetics Technician Lot No. [id number] No. Used Action GELFOAM(SURGIFOAM) [...] [employer] [place] Left 1 Implanted DURA,DURAGEN 3X3IN [id number] Duragen DURA,DURAGEN 3X3IN [id number] Redux [id number] Left 1 Implanted 4MM [id number] Screw/[place] 4MM [id number] [employer] [place] Left 9 Implanted [...] Associated attestation - Nicole Navarro RN - 12/05/2021 3:51 PM CDT I have reviewed today's student nurse/security intern's nursing documentation. Nicole Navarro RN 12/05/2021 15:50 Nursing Assessment - Efraín Cardenas RN - 12/05/2021 3:08 AM CDT Nursing Assessment Head to Toe Head to Toe Assessment Shift Summary D: A/O x4, neuro intact, no numbness/tingling reported, strong retail custodial associate/flexion. VSS, denies pain. Remains on RA, LS intact, bowel sounds active, no BM this shift. Voiding. Lumbar site covered with band aid. A: Medication administration, assessment. R: No c/o nausea. Slept most of shift. P: Continue with plan of care. NPO at midnight for procedure in AM. Efraín Cardenas, RN, 12/05/2021 3:09 AM Neurologic/Cognitive Assessment [...] Cardiac Assessment Within Defined Limits except for: Stripper Cutter Machine - bedside telemetry Respiratory Within defined limits [...] PM CDT I have reviewed today's student nurse/security intern's nursing documentation. Nicole Navarro RN 12/04/2021 [...] Within Defined Limits Nursing Assessment - Efraín Cardenas, RN - 12/04/2021 2:58 AM CDT Nursing [...] P: Continue with plan of care. Efraín Cardenas, RN, 12/04/2021 2:59 AM Neurologic/Cognitive Within Defined [...] Defined Limits Nursing Assessment - Kendra Stack, JAMES - 12/03/2021 10:30 PM CDT Nursing Assessment [...] are stable. PRN MAALOX and tylenol given. MD updated. Neurologic/Cognitive Within Defined Limits HEENT Within [...] Cardiac Assessment Within Defined Limits except for: Stripper Cutter Machine - bedside telemetry ECG Rhythm: normal sinus [...] 0000 until reoriented and after conversing with administrative underwriter for a short while was more appropriate. [...] Shift Summary Pt arrived around 1800 from [place], [place] following a full at home last [...] are in [facility] the results section. CYTOLOGY NON-AEROTRIANGULATION SPECIALIST Routine 12/03/2021 2:48 Results for this SPECIMEN [...] POC Glucose 124 (H) 70 - 100 [facility] mg/dL C[facility] - POINT OF CARE Specimen (Source) Anatomical Collection Method Collection Time Re ceived Time Location / / Volume Laterality Blood 12/06/2021 5:54 PM CDT Korin Blanco MD LABORATORY Performing Organization Address City/[facility] Code Phon e Number [facility] - POINT OF CARE [address] [place] [phone] (ABNORMAL) POC GLUCOSE (12/06/2021 11:52 AM CDT) athologist Signature POC Glucose 146 (H) 70 - 100 [facility] mg/dL [place] - POINT OF CARE Specimen (Source) Anatomical Collection Method Collection Time Re ceived Time Location / / Volume Laterality Blood 12/06/2021 11:52 AM CDT Korin Blanco MD LABORATORY Performing Organization Address City/[facility]/ZIP Code Phon e Number [facility] - POINT OF CARE [address] [place] [phone] (ABNORMAL) PANEL BASIC METABOLIC (BMP) (12/06/2021 5:25 AM CDT) athologist Signature Sodium 133 (L) 135 - 148 [facility] mEq/L Potassium 4.1 3.5 - 5.3 [facility] mEq/L Chloride 100 92 - 108 [facility] mEq/L CO2 23 22 - 30 [facility] mEq/L AnGap 10 8 - 16 [facility] mEq/L Glucose 128 (H) 70 - 100 [facility] mg/dL BUN 18 6 - 20 [facility] mg/dL Creatinine 0.61 0.50 - 1.00 [facility] mg/dL Calcium 8.9 8.6 - 10.0 [facility] mg/dL eGFR, High >120 >=60 [facility] ml/min/1.73 m2 Comment: Calculated using CKD-EPI equati on eGFR, Low 105 >=60 ml/min/1.73m2 [facility] Comment: Calculated using CKD-EPI equati on Specimen Anatomical Collection Method Collection Time Receive d Time (Source) Location / / Volume Laterality Blood 12/06/2021 5:25 12/06/2021 AM CDT 5:53 AM CDT Jimena Allison PA-C LABORATORY Performing Organization Address City/State/ZIP Code Phon e Number [facility] [place] [address] (ABNORMAL) CBC WITH PLATELET (12/06/2021 5:25 AM CDT) P athologist Signature WBC 18.50 (H) 4.00 - [facility] 10.00 k/cmm RBC 3.88 (L) 3.90 - 5.20 [facility] m/cmm Hgb 11.3 (L) 11.5 - 15.7 [facility] g/dL Hematocrit 34.7 34.0 - 45.0 [facility] % MCV 89.4 80.0 - [facility] 100.0 fL MCH 29.1 25.0 - 32.0 [facility] pg MCHC 32.6 31.0 - 36.0 [facility] g/dL RDW 13.4 11.5 - 14.5 [facility] % Plt 301 150 - 400 [facility] k/cmm MPV 10.6 6.5 - 12.5 [facility] fL Specimen Anatomical Collection Method Collection Time Receive d Time (Source) Location / / Volume Laterality Blood 12/06/2021 5:25 12/06/2021 AM CDT 5:43 AM CDT Jimena Allison PA-C LABORATORY Performing Organization Address City/State/ZIP Code Phon e Number [facility] [place] [address] HEAD NO IV CONTRAST (12/05/2021 [...] 6 mm. 3. Unchanged 3 mm of hoyr-lg-yxfod midli ne shift. 4. Vague hypodense masslike area left te mporoparietal junction and left thalamus better characterized on prior MRI Jimena Allison was contacted by Vignesh Fowler at 7:03PM on 12/05/21 and made aware of the above finding If you are the patient, and wish to disc uss this report with a radiologist, please call [phone] between 8 am and 4 pm on [...] the hemorrhage. Unchange d 3 mm of dzfq-jr-fgawg midline shift. H ypodense masslike at the [...] to the hemorrhage. Unchanged 3 mm of jkoz-qu-prsnx midline shift. Hypodense masslike at the left [...] 6 mm. 3. Unchanged 3 mm of csep-ng-xeksl midli ne shift. 4. Vague hypodense masslike area left te mporoparietal junction and left thalamus better characterized on prior MRI Jimena Allison was contacted by Vignesh Fowler at 7:03PM on 12/05/21 and made aware of the above finding If you are the patient, and wish to disc uss this report with a radiologist, please call [phone] between 8 am and 4 pm on regular working days. I have personally reviewed the image(s) and initial interpretation, and I agree with the findings as documented by the resident/fellow. Reading Radiologist: Kinjal Jenkins Reading Resident: Vignesh Fowler Korin Blanco MD CT NEURO (ABNORMAL) POC GLUCOSE (12/05/2021 5:14 PM CDT) athologist [facility] POC Glucose 130 (H) 70 - 100 [facility] mg/dL [place] - POINT OF CARE Specimen (Source) Anatomical Collection Method Collection Time Re ceived Time Location / / Volume Laterality Blood 12/05/2021 5:14 PM CDT Korin Blanco MD LABORATORY Performing Organization Address City/State/ZIP Code Phon e Number [facility] - POINT OF CARE [address] [place] [address] SURGICAL PATHOLOGY (12/05/2021 3:47 PM CDT) Component Value Ref Test Analysis Performed Pathologis t Range Method Time At [facility] SURG PATH ?Surgical Pathology Report [facility] FINAL Collection Date: ?12/05/2021 15:19 CDT ?Ordering Physician: ? DARINEL DUNLAP Received Date: ?12/05/2021 15:26 CDT ?Accession Number: ? [id number] ?SP Addendum Addended Ancillary Studies: Received ??on 02/05/22 from: 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 Addendum electronically signed by [...] is negative for this sample (please see [id number] for full report and interpretation). Correlation with clinical in formation, morphologic findings, and other diagnostic tests is indicated. References: 1. Terell DJ, Erick RG, Ranjan KD, et al N Engl J Med. 2015;372(66):2481-98. ?Surgical Pathology Report Collection Date: ?12/05/2021 15:19 CDT ?Ordering Physician: ? DARINEL DUNLAP Received Date: ?12/05/2021 15:26 CDT ?Accession Number: ? [id number] Addended Ancillary Studies: Please see the patient's medical records for the complete sc anned report. * ??Report Electronically Signed By ??* ?? NORBERTO ACEVEDO MD ?? 01.10.2022 9:15 ?SP Addendum Addended Ancillary Studies: Received on 12/26/21 is a an cillary report from Dr. Kofi Aleman of the [facility], [facility], [address], [place] [address]. MGMT PROMOTER METHYLATION (Final result) RESULTS MGMT [...] Percent Methylation Ratio (PMR) following the published [employer] procedure. PMR values great er than or [...] alkylating chemotherapy. Please see the patient's [facility] medical records for the complete scanned report. [...] Date: ?12/05/2021 15:26 CDT ?Accession Number: ? [id number] Final Diagnosis: A. 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 See comment. B. 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 See comment. Comment: Although [...] re port from ?Lamonte Redmond of the [facility], [address] [facility] [address], [address] [place] [address] regarding an external consultation of this case material requested by Dr. Warner. The in home sales consultant's diagnosis i s reflected in the final diagnosis field. Please see the complete consultation report within this patient's medical record. Clinical History: Clinical Diagnosis: Brain mass CO/CO 12.06.2021 12:11 Gross Description: A. ??The specimen [...] for permanent section in 1 cassette.( ? [facility] B. ??The specimen is receive d in [...] is entirely submitted in 2 cassettes.( ? [facility] CO/CO 12.06.2021 12:11 Microscopic Description: A,B - Microscopic [...] negative for IDH1 R132H. Immunostains performed at [facility] show the neoplastic cells are positive for p53 (scattered) and the proliferation index ki-67 is moderately elevated, est imated at 20-30%. CO/CO 12.06.2021 12:11 Specimen Anatomical Collection Method Collection Time Receive d Time (Source) Location / / Volume Laterality AP SPECIMEN 12/05/2021 3:47 12/05/2021 PM CDT 3:56 PM CDT Comment: Brain, left mass, biopsy Narrative This result has an attachment that is no t available. Darinel Dunlap MD LAB PATHOLOGY Performing Organization Address City/[facility]/ZIP Code Phon e Number [facility] [place] [address] TEST URINE (12/05/2021 6:36 AM CDT) athologist Signature Ur Negative Negative [facility] UPT performed [facility] at Comment: Test performed at: [facility] [address] [place] [address] Specimen Anatomical Collection Method Collection Time Receive d Time (Source) Location / / Volume Laterality Urine 12/05/2021 6:36 12/05/2021 AM CDT 6:58 AM CDT Narrative [facility] - 12/05/2021 7:53 AM CDT Needs for surgery today if has had mense s in last year. Korin Blanco MD LABORATORY Performing Organization Address City/[facility] Code Phon e Number [facility] [place] [address] COVID-19 SURVEILLANCE (12/05/2021 6:30 AM CDT) [facility] Method Time [facility] COVID-19 Not Detected Not Detected [facility] Comment: This assay is an RT-PCR FDA craig roved test. Specimen (Source) Anatomical Collection Method Collection Time Re ceived Time Location / / Volume Laterality Nasopharyngeal Swab 12/05/2021 6:30 04/10/2021 AM CDT 6:31 AM CDT Narrative [facility] - 12/05/2021 7:20 AM CDT Preferred specimen is Nasopharyngeal swab Is the patient a healthcare employee: No Is the patient a Nataliya ([employer] Employee : No Korin Blanco MD LABORATORY Performing Organization Address City/[facility] Phon e Number [facility] [place] [address] ANTIBODY SCREEN (12/05/2021 4:58 AM CDT) athologist Signature Mónica Screen Negative [facility] Specimen Anatomical Collection Method Collection Time Receive d Time (Source) Location / / Volume Laterality Blood 12/05/2021 4:58 12/05/2021 AM CDT 5:29 AM CDT Korin Blanco MD LAB TRANSFUSION SERVICES Performing Organization Address City/[facility]/ZIP Code Phon e Number [facility] [place] [address] BLOOD TYPING-ABO/RH (12/05/2021 4:58 AM CDT) athologist Signature ABORHG O NEG [facility] Specimen Anatomical Collection Method Collection Time Receive d Time (Source) Location / / Volume Laterality Blood 12/05/2021 4:58 12/05/2021 AM CDT 5:29 AM CDT Korin Blanco MD LAB TRANSFUSION SERVICES Performing Organization Address City/[facility]/ZIP Code Phon e Number [facility] [place] [address] PROTHROMBIN (PT) & INR (12/05/2021 4:58 AM CDT) athologist Signature PT 11.4 9.0 - 12.5 [facility] sec INR 1.0 0.8 - 1.1 [facility] Specimen Anatomical Collection Method Collection Time Receive d Time (Source) Location / / Volume Laterality Blood 12/05/2021 4:58 12/05/2021 AM CDT 5:43 AM CDT Korin Blanco MD LABORATORY Performing Organization Address City/[facility]/ZIP Code Phon e Number [facility] [place] [address] (ABNORMAL) PANEL BASIC METABOLIC (BMP) (12/05/2021 4:58 AM CDT) P athologist Signature Sodium 140 135 - 148 [facility] mEq/L Potassium 3.9 3.5 - 5.3 [facility] mEq/L Chloride 107 92 - 108 [facility] mEq/L CO2 27 22 - 30 [facility] mEq/L AnGap 6 (L) 8 - 16 [facility] mEq/L Glucose 91 70 - 100 [facility] mg/dL BUN 29 (H) 6 - 20 [facility] mg/dL Creatinine 0.84 0.50 - 1.00 [facility] mg/dL Calcium 8.7 8.6 - 10.0 [facility] mg/dL eGFR, High 93 >=60 [facility] ml/min/1.73 m2 Comment: Calculated using CKD-EPI equati on eGFR, Low 81 >=60 ml/min/1.73m2 [facility] Comment: Calculated using CKD-EPI equati on Specimen Anatomical Collection Method Collection Time Receive d Time (Source) Location / / Volume Laterality Blood 12/05/2021 4:58 12/05/2021 AM CDT 5:48 AM CDT Korin Blanco MD LABORATORY Performing Organization Address City/State/ZIP Code Phon e Number [facility] [place] [address] CBC WITH PLTS/AUTO DIFF (12/05/2021 4:58 AM CDT) P athologist Signature WBC 7.60 4.00 - [facility] 10.00 k/cmm RBC 3.93 3.90 - [facility] 5.20 m/cmm Hgb 11.7 11.5 - [facility] 15.7 g/dL Hematocrit 36.5 34.0 - [facility] 45.0 % MCV 92.9 80.0 - [facility] 100.0 fL MCH 29.8 25.0 - [facility] 32.0 pg MCHC 32.1 31.0 - [facility] 36.0 g/dL RDW 13.8 11.5 - [facility] 14.5 % Plt 266 150 - 400 [facility] k/cmm MPV 10.8 6.5 - 12.5 [facility] fL Automated Abs 3.46 1.70 - [facility] Neutrophil 6.50 k/cmm Comment: Preliminary ANC, Final Result t o Follow Abs Immature Granulocyte 0.04 0.00 - 0.09 k/cmm [facility] Comment: The Immature Granulocyte Absolu te count contains metamyelocytes and myelocytes. Abs Neutrophil 3.46 1.70 - 6.50 k/cmm [facility] B Abs Lymphocyte 3.47 0.80 - 4.00 k/cmm [facility] B Abs Monocyte 0.41 0.20 - 1.00 k/cmm [facility] Abs Eosinophil 0.19 0.00 - 0.60 k/cmm [facility] B Abs Basophil 0.03 0.00 - 0.20 k/cmm [facility] Specimen Anatomical Collection Method Collection Time Receive d Time (Source) Location / / Volume Laterality Blood 12/05/2021 4:58 12/05/2021 AM CDT 5:52 AM CDT Korin Blanco MD LABORATORY Performing Organization Address City/State/ZIP Code [place] [address] TRANSTHOR (TTE) COMPLETE WITH CONTRAST (12/04/2021 [...] ?COLLING GUILLERMINA Height ?65.51 Inches Patient Number ?[id number] ?Weig ht ?207.68 Pounds Date of ? 1970 ?? BSA ? 2.02 m^2 Age ? 51 ? Tape Number Gender ?Female ? 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 [id number] Type of Study: TTE procedure: 2D echocardiogram, M-Mode , Doppler , Color Doppler, Contrast study, ECH TRANSTHORACIC ECHO ( TTE), Myocardial Strain Imaging HR: 63 bpmBP: 118/75 mmHgPatient Status: Routine Study Location: [id number] Quality: G ood visualization Contrast Medium: Definity. [...] Signature Electronically signed by Erick Saldana MD [id number](Interpreting physician) on 2021 01:28 PM Valves Mitral [...] COLLING GUILLERMINA Height 65.51 Inches Patient Number [id number] Weight 207.68 Pounds Date of 1970 BSA 2.02 m^2 Age 51 Tape Numb er Gender Female Study Nadir e 12/04/2021 08:58 AM [employer] Counselor [employer] Ordering Physician TESFAYE LANGLEY Referring Interpret ing Erick Saldana MD Physician Physician [id number] Type of Study: TTE procedure: 2D echocardiogram, M-Mode , Doppler , Color Doppler, Contrast study, ECH TRANSTHORACIC ECHO ( TTE), Myocardial Strain Imaging HR: 63 bpmBP: 118/75 mmHgPatient Status: Routine Study Location: [id number] Quality: G ood visualization Contrast Medium: Definity. [...] Signature Electronically signed by Erick Saldana MD [id number](Interpreting physician) on 2021 01:28 PM Valves Mitral [...] Organization Address City/State/ZIP Code Phon e Number [facility] ENCEPHALOPATHY, AUTOIMMUNE EVALUATION, SERUM (12/03/2021 7:15 PM CDT) Component Value Ref Test Analysis Performed At [facility] Range Method Time Signature Encephalopathy, See [facility] Interpretation Footnote LABORATORIES [address] [facility] Comment: No informative autoantibodies were detec anayeli in this evaluation. However, a negative result d oes not exclude autoimmune encephalopathy, idiopathic or paraneoplastic. Sensitivity and specificity of antibody testing are enhanced by testing both serum and CSF. AMB Receptor Ab Negative Negative [facility] L [facility]ATOR[facility] [address] [facility] Comment: ADDITIONAL INFORMATIO N This test was developed and its performa nce characteristics determined by [facility] in a manner co nsistent with CLIA requirements. This test has not been nay ared or approved by the U.S. Food and Drug Administration. Amphiphysin AB Negative <1:240 titer [place] [employer] [facility] [address] [facility] Comment: ADDITIONAL INFORMATIO N This test was developed and its performa nce characteristics determined by [facility] in a manner co nsistent with CLIA requirements. This test has not been nay ared or approved by the U.S. Food and Drug Administration. REFERENCE RANGE: ??AMPHIPHYSIN AB <1:240 = NEGATIVE AGNA 1 Negative <1:240 titer [place] [facility] RATInstab[employer] [address] [facility] Comment: ADDITIONAL INFORMATIO N This test was developed and its performa nce characteristics determined by [facility] in a manner co nsistent with CLIA requirements. This test has not been nay ared or approved by the U.S. Food and Drug Administration. REFERENCE RANGE: ??AGNA 1 <1:240 = NEGATIVE Polina 1 Negative <1:240 titer [place] [facility] [employer]ATInstab[facility] [address] [facility] Comment: REFERENCE RANGE: POLINA 1 <1:240 = NEGATIVE POLINA 2 Negative <1:240 titer [place] [facility] RATInstab[facility] [address] [facility] Comment: ADDITIONAL INFORMATIO N This test was developed and its performa nce characteristics determined by [facility] in a manner co nsistent with CLIA requirements. This test has not been nay ared or approved by the U.S. Food and Drug Administration. REFERENCE RANGE POLINA 2 <1:240 = NEGATIVE POLINA 3 Negative <1:240 titer [facility] [employer]AT[facility]ab[facility] [address] [facility]TR Comment: ADDITIONAL INFORMATIO N This test was developed and its performa nce characteristics determined by [facility] in a manner co nsistent with CLIA requirements. This test has not been nay ared or approved by the U.S. Food and Drug Administration. REFERENCE RANGE: ??POLINA 3 <1:240 = NEGATIVE CASPR2-IgG CBA Negative Negative [facility] [address]TR Comment: ADDITIONAL INFORMATIO N This test was developed and its performa nce characteristics determined by [facility] in a manner co nsistent with CLIA requirements. This test has not been nay ared or approved by the U.S. Food and Drug Administration. CRMP-5-IGG Negative <1:240 titer [facility] [address] Comment: ADDITIONAL INFORMATIO N This test was developed and its performa nce characteristics determined by [facility] in a manner co nsistent with CLIA requirements. This test has not been nay ared or approved by the U.S. Food and Drug Administration. REFERENCE RANGE: ??CRMP-5-IGG <1:240 = NEGATIVE DPPX Ab IFA Negative Negative [facility] Comment: ADDITIONAL INFORMATIO N This test was developed and its performa nce characteristics determined by [facility] in a manner co nsistent with CLIA requirements. This test has not been nay ared or approved by the U.S. Food and Drug Administration. ESDRAS B Receptor Ab Negative Negative [place] [employer] [address] [facility]TR Comment: ADDITIONAL INFORMATIO N This test was developed and its performa nce characteristics determined by [facility] in a manner co nsistent with CLIA requirements. This test has not been nay ared or approved by the U.S. Food and Drug Administration. GAD65 Ab Assay 0.00 <=0.02 nmol/L [facility] [address] [facility] Comment: ADDITIONAL INFORMATIO N This test was developed and its performa nce characteristics determined by [facility] in a manner co nsistent with CLIA requirements. This test has not been nay ared or approved by the U.S. Food and Drug Administration. GFAP IFA Negative Negative [facility] [address] [facility] Comment: ADDITIONAL INFORMATIO N This test was developed and its performa nce characteristics determined by [facility] in a manner co nsistent with CLIA requirements. This test has not been nay ared or approved by the U.S. Food and Drug Administration. IgLONS IFA Negative Negative [facility] [address] [facility] Comment: ADDITIONAL INFORMATIO N This test was developed and its performa nce characteristics determined by [facility] in a manner co nsistent with CLIA requirements. This test has not been nay ared or approved by the U.S. Food and Drug Administration. LGI1-IgG CBA Negative Negative [place] [employer] [address] [facility] Comment: ADDITIONAL INFORMATIO N This test was developed and its performa nce characteristics determined by [facility] in a manner co nsistent with CLIA requirements. This test has not been nay ared or approved by the U.S. Food and Drug Administration. mGluR1 Ab IFA Negative Negative [facility] [address] [facility]TR Comment: ADDITIONAL INFORMATIO N This test was developed and its performa nce characteristics determined by [facility] in a manner co nsistent with CLIA requirements. This test has not been nay ared or approved by the U.S. Food and Drug Administration. NMDA R Ab Negative Negative [facility] [place] [address] [facility]TR Comment: ADDITIONAL INFORMATIO N This test was developed and its performa nce characteristics determined by [facility] in a manner co nsistent with CLIA requirements. This test has not been nay ared or approved by the U.S. Food and Drug Administration. NIF IFA Negative Negative [facility] [address] [facility] Comment: ADDITIONAL INFORMATIO N This test was developed and its performa nce characteristics determined by [facility] in a manner co nsistent with CLIA requirements. This test has not been nay ared or approved by the U.S. Food and Drug Administration. MACHINE SHORTHAND TEACHER 1 Negative <1:240 titer [facility] [address]TR Comment: ADDITIONAL INFORMATIO N This test was developed and its performa nce characteristics determined by [facility] in a manner co nsistent with CLIA requirements. This test has not been nay ared or approved by the U.S. Food and Drug Administration. REFERENCE RANGE: ??MACHINE SHORTHAND TEACHER 1 <1:240 = NEGATIVE MACHINE SHORTHAND TEACHER 2 Negative <1:240 titer [facility] [address] C[facility]TR Comment: ADDITIONAL INFORMATIO N This test was developed and its performa nce characteristics determined by [facility] in a manner co nsistent with CLIA requirements. This test has not been nay ared or approved by the U.S. Food and Drug Administration. REFERENCE RANGE: ??MACHINE SHORTHAND TEACHER 2 <1:240 = NEGATIVE MACHINE SHORTHAND TEACHER TR Negative <1:240 titer [facility] LAB[facility] RATORIES [facility] SUPPORT CENTR Comment: ADDITIONAL INFORMATIO N This test was developed and its performa nce characteristics determined by [facility] in a manner co nsistent with CLIA requirements. This test has not been nay ared or approved by the U.S. Food and Drug Administration. Test Performed by: [place] [address] It Systems Manager: Chintan Coronado M.D. Ph. D.; CLIA# [id number] REFERENCE RANGE: ??MACHINE SHORTHAND TEACHER TR <1:240 = NEGATIVE Specimen Anatomical Collection Method Collection Time Receive d Time (Source) Location / / Volume Laterality Serum 12/03/2021 7:15 12/04/2021 PM CDT 7:01 AM CDT Narrative [facility]TR - 12/13/2021 5:20 PM CDT Encephalopathy, Autoimmune Evaluation, Serum Name of test: ENS2 Korin Blanco MD LABORATORY Performing Organization Address City/State/ZIP Code Phon e Number [facility] [address] [place], [place] [address] [facility] CENTR INTERLEUKIN 2 RECEPTOR (CD25) SOLUBLE (12/03/2021 7:15 PM CDT) [facility] Method Time Signature Interleukin 2 332.1 175.3 - [facility] Receptor (CD25) 858.2 LABORATORIES Soluble pg/mL Comment: INTERPRETIVE INFORMATION: Cytokines Results are used to understand the patho physiology of immune, infectious, or inflammatory diso rders, or may be used for research purposes. This test was developed and its performa nce characteristics determined by [facility]. It has not been cleared or approved by the [place] Food and Drug Adminis tration. This test was performed in a CLIA certified labora tory and is intended for clinical purposes. Performed By: [facility] [address] [place] [address] Human Resource Intern: Hortensia Lemon MD Specimen Anatomical Collection Method Collection Time Receive d Time (Source) Location / / Volume Laterality Serum 12/03/2021 7:15 12/04/2021 PM CDT 7:01 AM CDT Korin Blanco MD LABORATORY Performing Organization Address City/State/ZIP Code Phon e Number [facility] [address] [place] [address] QUANTIFERON-TB GOLD PLUS (12/03/2021 7:15 PM CDT) [facility] Method Time Signature QuantiFERON TB Negative Negative [facility] Gold Plus QFT TB 1 -0.01 [facility] QFT TB 2 -0[facility]01 [facility] QFT TB MITOGEN 9.97 [facility] QFT NIL 0.03 [facility] Specimen Anatomical Collection Method Collection Time Receive d Time (Source) Location / / Volume Laterality Blood 12/03/2021 7:15 12/03/2021 PM CDT 8:57 PM CDT Korin Blanco MD LABORATORY Performing Organization Address City/[facility]/ZIP Code Phon e Number [facility] [place] [address] XR NEEDLE PLACEMENT - SPINE (12/03/2021 [...] Radiologist: Chandan Chu Reading Resident: Norberto Waldron 12/04/2021 4:30 PM CDT [...] Chandan Chu MD Consent: Verbal consent obtained. Writte n consent obtained. Risks and benefits: risks, [...] verify the correct patient, procedure, equipmen t, field support representative and site/side marked as required. Anesthesia: local [...] para median. Chandan Chu MD PROCEDURES CYTOLOGY NON-AEROTRIANGULATION SPECIALIST SPECIMEN (12/03/2021 2:48 PM CDT) [facility] gist Method Time Signature Cytology Refrigerated [facility] Non-Arch Support Maker Specimen Specimen Anatomical Collection Method Collection Time Receive d Time (Source) Location / / Volume Laterality CSF 12/03/2021 2:48 12/03/2021 PM CDT 3:17 PM CDT Comment: CYTOLOGY NON-AEROTRIANGULATION SPECIALIST SPECIMEN Narrative [facility] - 12/03/2021 3:17 PM CDT Both orders are required to process Cytology/Non-AEROTRIANGULATION SPECIALIST panel. Please do not discontinue either order. 1. Cytology Non-AEROTRIANGULATION SPECIALIST 2. Cytology Non-AEROTRIANGULATION SPECIALIST Specimen . Korin Blanco MD LAB PATHOLOGY Performing Organization Address City/State/ZIP Code Phon e Number [facility] [place] [address] MISCELLANEOUS LAB (12/03/2021 2:48 PM CDT) [facility] Method Time Signature [facility] Sendout See Comment See Comment MISCELLANEOUS REFERENCE LABORATORY Comment: Meningitis/Encephalitis Panel by PCR [facility] test code 7508859 Escherichia coli K1 by PCR Not Detected [...] MISCELLANEOUS REFERENCE LABORATORY - 7:29 AM CDT [place] [facility] Meningitis/Encephalitis Pathogen Panel, PCR, Spinal Fluid Reference Lab: [facility] Test Name: ABOVE Reference Lab test code: [id number] Reflex testing available (Y/N): N Expected TAT: 2 DAYS Temp: ??R Korin Blanco MD LABORATORY Performing Organization Address City/State/ZIP Code Phon e Number MISCELLANEOUS REFERENCE LABORATORY MISCELLANEOUS REFERENCE See Comment for Lab LABORATORY Address CSF CULTURE:INCLUDES GRAM STAIN (12/03/2021 2:48 PM CDT) [facility] Method Time Signature Final Report No growth. [facility] Gram Stain No PMN's seen. [facility] Report No organisms seen. Specimen Anatomical Collection Method Collection Time Receive d Time (Source) Location / / Volume Laterality CSF 12/03/2021 2:48 12/03/2021 PM CDT 3:26 PM CDT Narrative [facility] - 12/06/2021 10:02 AM CDT Was CSF taken from a shunt: No Korin Blanco MD LAB MICROBIOLOGY Performing Organization Address City/[facility]/ZIP Code Phon e Number [facility] [place] [address] BODY FLUID CELL COUNT/DIFF (12/03/2021 2:48 PM CDT) [facility] Method Time Signature Fluid Type CF CSF [facility] Volume CF 20 mL [facility] Appearance CF Clear [facility] Color bf Colorless [facility] Tube # CSF Tube 4 [facility] RBC CSF <1,000 cells/ul [facility] Nuc Ct CSF 1 cells/ul [facility] Neutrophil CSF 0 % [facility] Lymphocytes CSF 100 % [facility] Specimen Anatomical Collection Method Collection Time Receive d Time (Source) Location / / Volume Laterality CSF 12/03/2021 2:48 12/03/2021 PM CDT 3:17 PM CDT Korin Blanco MD LABORATORY Performing Organization Address [facility] Code Phon e Number [facility] [place] [address] OLIGOCLONAL BANDS CSF (12/03/2021 2:48 PM CDT) [facility] Method Time Signature Oligoc Band CSF Negative [facility] Oligoclonal Bands 0 0 - 1 [facility] Number,CSF [facility]ATOR[facility] Oligoclonal Bands See Note [facility] Interpretation [facility] Comment: Isoelectric focusing/immunofixation reve aled no oligoclonal bands in either the CSF or the serum. Th is is considered to be a negative result for oligoclonal ban ds. Approximately 5 percent of patients with clinically defi nitive multiple sclerosis will have a negative result. Performed By: [facility] [address] [place] [address] Human Resource Intern: Hortensia Lemon MD Specimen Anatomical Collection Method Collection Time Receive d Time (Source) Location / / Volume Laterality CSF 12/03/2021 2:48 12/03/2021 PM CDT 3:17 PM CDT Korin Blanco MD LABORATORY Performing Organization Address City/[facility]/ZIP Code Phon e Number [facility] [address] [place] [address] PROTEIN, CSF (12/03/2021 2:48 PM CDT) athologist [facility] Protein Total 34 15 - 45 [facility] CSF mg/dL Specimen Anatomical Collection Method Collection Time Receive d Time (Source) Location / / Volume Laterality CSF 12/03/2021 2:48 12/03/2021 PM CDT 3:17 PM CDT Korin Blanco MD LABORATORY Performing Organization Address City/State/ZIP Code Phon e Number [facility] [place] [address] (ABNORMAL) GLUCOSE, CSF (12/03/2021 2:48 PM CDT) athologist [facility] Glucose CSF 82 (H) 40 - 70 [facility] mg/dL Comment: GLUCOSE CSF REFERENCE RANGES: 60% - 70% of the plasma level at the nisha e the spinal tap is performed Specimen Anatomical Collection Method Collection Time Receive d Time (Source) Location / / Volume Laterality CSF 12/03/2021 2:48 12/03/2021 PM CDT 3:17 PM CDT Korin Blanco MD LABORATORY Performing Organization Address City/State/ZIP Code Phon e Number [facility] [place] [address] FLOW CYTOMETRY (12/03/2021 1:10 PM CDT) Component Value Ref Test Analysis Performed At [facility] gist Range Method Time Signature FC Report ?Flow Cytometry Report [facility] Collection Date: ?12/03/2021 13:10 CDT ?Ordering Physician: ? KORIN BLANCO Received Date: ?12/03/2021 16:18 CDT ?Accession Number: ? [id number] ?FC Final Report Clinical History: [facility]: 51-year-old female with brain lesions. DIAGNOSIS: Cerebrospinal fluid , flow cytometry: ??- No aberrant immunophenotype on the T-cells ??- B-cells rare to absent ??- See comment * ??Report Electronically Signed By ??* ?? Bri Caal M.D. KSP/KSTu 12/04/2021 11:38 COMMENT: There is no evidence [...] and the cell populations were evaluated using Nutmeg analysis software. The total cell count in thi s study was 1/microliter after lysis of red cells. Cell viability was 100%. This test was developed and its performance characteristics determined by the ? Clarence ?? [facility] Flow Cytometry Laboratory. ??It has not been [...] Organization Address City/State/ZIP Code Phon e Number [facility] [place] [address] [place] [address] CYTOLOGY NON-AEROTRIANGULATION SPECIALIST (12/03/2021 1:10 PM CDT) Component Value Ref Test Analysis Performed At [facility] Range Method Time Signature Non Arch Support Maker ?Non Arch Support Maker Report [facility] Report Collection Date: ?12/03/2021 13:10 CDT ?Ordering Physician: ? KORIN BLANCO Received Date: ?12/04/2021 11:48 CDT ?Accession Number: ? [id number] ?Non Gynecologic Cytology Final Report Specimen Type: Cerebral Spinal Fluid Final Diagnosis: Negative for malignant cells. * ??Report Electronically Signed By ??* ?? Renetta Warner M.D. ?? Screening Performed By: ?? ALYSE Hill(ASCP) ?? [facility] 12.05.2021 15:22 Clinical History & Gross Description: [...] Organization Address City/State/ZIP Code Phon e Number [facility] [place] [address] HIV COMBO (12/03/2021 6:41 AM CDT) [facility] Method Time Signature HIV Nonreactive Nonreactive [facility] Antigen-Antib shannan Comment: Performance characteristics hav e not been established with this test on patients less than 2 years of age. Specimen Anatomical Collection Method Collection Time Receive d Time (Source) Location / / Volume Laterality Blood 12/03/2021 6:41 12/03/2021 AM CDT 7:17 AM CDT Korin Blanco MD LABORATORY Performing Organization Address City/[facility]/ZIP Code Phon e Number [facility] [place] [address] HEPATITIS B SURFACE ANTIGEN (12/03/2021 6:41 AM CDT) [facility] Method Time Signature HBV Surface Nonreactive Nonreactive [facility] Ag Specimen Anatomical Collection Method Collection Time Receive d Time (Source) Location / / Volume Laterality Blood 12/03/2021 6:41 12/03/2021 AM CDT 7:17 AM CDT Korin Blanco MD LABORATORY Performing Organization Address City/State/ZIP Code Phon e Number [facility] [place] [address] HEPATITIS C ANTIBODY WITH CONDITIONAL PCR (12/03/2021 6:41 AM CDT) Analysis Performed At [facility] logist Time Signature Hep C Mónica Nonreactive Nonreactive [facility] Comment: Performance characteristics hav e not been established with this test on patients less than 10 years of age. Specimen Anatomical Collection Method Collection Time Receive d Time (Source) Location / / Volume Laterality Blood 12/03/2021 6:41 12/03/2021 AM CDT 7:17 AM CDT Korin Blanco MD LABORATORY Performing Organization Address City/[facility]/ZIP Code Phon e Number [facility] [place] [address] HEPATITIS B SURFACE ANTIBODY (12/03/2021 6:41 AM CDT) P athologist Signature HBV Surface Reactive [facility] Mónica Comment: Reactive implies immunity. Specimen Anatomical Collection Method Collection Time Receive d Time (Source) Location / / Volume Laterality Blood 12/03/2021 6:41 12/03/2021 AM CDT 7:17 AM CDT Korin Blanco MD LABORATORY Performing Organization Address City/State/ZIP Code Phon e Number [facility] [place] [address] CHEST/ABD/PELVIS W/IV CONT (12/01/2021 9:13 [...] or pelvis. Reading Radiologist: Harrison Umana Hattie Adams PA-C CT BODY ANTIBODY SCREEN (12/01/2021 12:28 AM CDT) athologist Signature Mónica Screen Negative [facility] Specimen Anatomical Collection Method Collection Time Receive d Time (Source) Location / / Volume Laterality Blood 12/01/2021 12:28 12/01/2021 AM CDT 12:55 AM CDT Hattie CHAPA-C LAB TRANSFUSION SERVICES Performing Organization Address City/State/ZIP Code Phon e Number [facility] [place] [address] BLOOD TYPING-ABO/RH (12/01/2021 12:28 AM CDT) athologist Signature ABORHG O NEG [facility] Specimen Anatomical Collection Method Collection Time Receive d Time (Source) Location / / Volume Laterality Blood 12/01/2021 12:28 12/01/2021 AM CDT 12:55 AM CDT Hattie CHAPA-C LAB TRANSFUSION SERVICES Performing Organization Address City/State/ZIP Code Phon e Number [facility] [place] [address] PTT (APTT) (12/01/2021 12:28 AM CDT) athologist Signature APTT 34.2 25.0 - 37.0 [facility] sec Specimen Anatomical Collection Method Collection Time Receive d Time (Source) Location / / Volume Laterality Blood 12/01/2021 12:28 12/01/2021 AM CDT 1:00 AM CDT Hattie CHAPA-C LABORATORY Performing Organization Address City/[facility]/ZIP Code Phon e Number [facility] [place] [address] PROTHROMBIN (PT) & INR (12/01/2021 12:28 AM CDT) athologist Signature PT 12.0 9.0 - 12.5 [facility] sec INR 1.0 0.8 - 1.1 [facility] Specimen Anatomical Collection Method Collection Time Receive d Time (Source) Location / / Volume Laterality Blood 12/01/2021 12:28 12/01/2021 AM CDT 1:00 AM CDT Hattie Adams PA-C LABORATORY Performing Organization Address City/[facility] Code Phon e Number [facility] [place] [address] (ABNORMAL) PANEL BASIC METABOLIC (BMP) (12/01/2021 12:28 AM CDT) athologist Signature CO2 21 (L) 22 - 30 [facility] mEq/L Glucose 111 (H) 70 - 100 [facility] mg/dL BUN 10 6 - 20 [facility] mg/dL Creatinine 0.62 0.50 - 1.00 [facility] mg/dL Calcium 8.6 8.6 - 10.0 [facility] mg/dL eGFR, High >120 >=60 [facility] ml/min/1.73 m2 Comment: Calculated using CKD-EPI equati on Sodium 139 135 - 148 mEq/L [facility] Potassium 4.3 3.5 - 5.3 mEq/L [facility] Chloride 108 92 - 108 mEq/L [facility] eGFR, Low 105 >=60 ml/min/1.73m2 [facility] Comment: Calculated using CKD-EPI equati on AnGap 10 8 - 16 mEq/L [facility] Specimen Anatomical Collection Method Collection Time Receive d Time (Source) Location / / Volume Laterality Blood 12/01/2021 12:28 12/01/2021 AM CDT 1:00 AM CDT Hattie Adams PA-C LABORATORY Performing Organization Address City/[facility]/ZIP Code Phon e Number [facility] [place] [address] (ABNORMAL) CBC WITH PLATELET (12/01/2021 12:28 AM CDT) P athologist Signature WBC 7.51 4.00 - [facility] 10.00 k/cmm RBC 3.74 (L) 3.90 - 5.20 [facility] m/cmm Hgb 11.2 (L) 11.5 - 15.7 [facility] g/dL Hematocrit 34.8 34.0 - 45.0 [facility] % MCV 93.0 80.0 - [facility] 100.0 fL MCH 29.9 25.0 - 32.0 [facility] pg MCHC 32.2 31.0 - 36.0 [facility] g/dL RDW 13.8 11.5 - 14.5 [facility] % Plt 271 150 - 400 [facility] k/cmm MPV 10.9 6.5 - 12.5 [facility] fL Specimen Anatomical Collection Method Collection Time Receive d Time (Source) Location / / Volume Laterality Blood 12/01/2021 12:28 12/01/2021 AM CDT 1:00 AM CDT Hattie Adams PA-C LABORATORY Performing Organization Address City/State/ZIP Code Phon e Number [facility] [place] [address] MR BRAIN W/O + WITH CONTRAST [...] by the resident/fellow. Reading Radiologist: Johnathan Avelar Resident: Mian Agrawal 12/06/2021 10:20 AM CDT Exam: Stealth MRI for preoperative/stereotactic planning, 11/30/2021 Indication: Brain mass or lesion ??pleas e do with Stealth protocol. Comparison: Brain MRI from earlier today . Technique: Axial susceptibility-weighted images were obtained of the brain. Additional volumetric T1-and T2-weighted images were obtained brain following the intravenous administration of gadolinium, wi th the images transferred to the [employer] Workstation for surgical planning. Amide proton transfer(APT)-weighted [...] abnormally increased APT signal is evident. Trace pwhn-bi-zdhyb midline shift withou t herniation. No hydrocephalus [...] occipital lymph nodes. Procedure Note Johnathan Avelar, DO - 12/06/2021Form atting of this note might be different from the original. Exam: Stealth MRI for preoperative/stere otactic planning, 11/30/2021 Indication: Brain mass or lesion please do with Stealth protocol. Comparison: Brain MRI from earlier today . Technique: Axial susceptibility-weighted images were obtained of the brain. Additional volumetric T1-and T2-weighted images were obtained brain following the intravenous administration of gadolinium, with the images transferred to the [employer] Workstation f or surgical planning. Amide proton [...] abnormally increased APT signal is evident. Trace csmb-wf-cwtay midline shift withou t herniation. No hydrocephalus [...] by the resident/fellow. Reading Radiologist: Johnathan Avelar Resident: Mian Agrawal Hattie CHAPA-Rusty MR NEURO documented in this encounter Visit Diagnoses Diagnosis Brain mass - Primary Unspecified condition of brain Focal seizure () Other convulsions Brain mass Unspecified condition of brain documented in this encounter Administered Medications Inactive [...] CEFAZOLIN (ANCEF) 1 G IN NACL 1000 Given 12/05/2021 3:04 PM CDT 1,000 mg Incision ML IRRIGATION BOTTLE INTRA-OP ONCE PRN, Starting on Fri12/05/21 at 1504, Until Fri12/05/21 at 1713 DC MED REC REVIEW BY PHARMACY Discharge [...] Given 12/07/2021 12:31 AM CDT 4 mg hydrALAZINE (APRESOLINE) 20 mg/mL injection Given 12/05/2021 [...] Given 12/06/2021 12:30 PM CDT 0.25 mg levETIRAcetam (KEPPRA) tablet 1,000 mg Given 12/07/2021 9:38 AM CDT 1,000 mg 1,000 mg, Oral, BID, First dose on Fri11/30/21 at 2000, Until Discontinued Given 12/06/2021 7:46 PM CDT 1,000 mg Given 12/06/2021 7:59 AM CDT 1,000 mg lidocaine 1%-EPINEPHrine Given 12/05/2021 2:43 PM CDT 10 mL Other (comment) (1:100,000) injection INTRA-OP ONCE PRN, Starting on Fri12/05/21 at 1443, Until Fri12/05/21 at 1713 ondansetron (ZOFRAN) 4 mg/2 mL [...] AM CDT 4 mg oxyCODONE (ROXICODONE) tablet 5-10 mg Given [...] dose on Fri12/07/21 at 1225, Until Discontinued polyethylene glycol 3350 (MIRALAX;GLYCOLAX) Given 12/07/2021 12: 56 PM CDT 17 g packet 17 g 17 g, Oral, DAILY, First dose on Fri12/07/21 at 1225, Until Discontinued sennosides-docusate sodium (STOOL Given 12/07/2021 12:55 PM CDT 2 tablets SOFTENER/LAXATIVE) 8.6-50 mg tablet 2 tablet 2 tablet, Oral, BID, First dose on Fri12/07/21 at 1225, Until Discontinued thrombin (THROMBIN-JMI) Given 12/05/2021 2:13 PM 10,000 UNITS Other (comment) solution CDT INTRA-OP ONCE PRN, Starting on Fri12/05/21 at 1413, Until Fri12/05/21 at 1713 VTE prophylaxis contraindicated Contraindication Reason: Bleeding Risk, [...] comment) - Comment: says was removed by CREATIVE LEAD prior to patient arriving in unit.)2339 (Given - Provider: Adan Eldridge RN) 0552 (Given - Provider: Adan Eldridge RN) 1227 (Given - Provider: Meche Devi RN)1815 (Given - Provider: Mandy Jackson RN) 0031 (Given - Provider: Hattie miller RN)0557 (Given - Provider: Hattie Maloney RN)1300 (Given - Provider: Patricia Murcia RN)1800 (Due) 4 mg, IV Push, Q6H, First dose on Fri12/05/21 at 1725, Until Dis continued HYDROmorphone PF (DILAUDID) injection 0.5 mg (COMPLETE D) 2058 (Given - Provider: Adan Eldridge RN) 0.5 mg, IV Push, ONE TIME, 1 dose, On Fri12/05/21 at 2045 levETIRAcetam (KEPPRA) tablet 1,000 mg 0757 (Given - P rovider: Josh Tobar RN)2031 (Given - Provider: Adan Eldridge RN) 075 (Given - Provider: Meche Devi RN)194 (Given - Provider: Cynthia Mahmood RN) 0938 (Given - Provider: Ludmila Neal RN)1999 (Due) 1,000 mg, Oral, BID, First dose on Fri11/30/21 at 2000, Until Dis continued pantoprazole (PROTONIX) tablet 40 mg 1255 (Given - Provider: Patriica Murcia RN) 40 mg, Oral, DAILY, First [...] 650 mg 1831 (Given - Provider: David dyson RN) 1815 (Given - Provider: Mandy G Freshwater, RN) 0000 (Given - Provider: Hattie Maloney RN)0341 (Given - Provider: Hattie Maloney, JAMES)0938 (Given - Provider: Ludmila Neal RN)1459 (Given - Provider: Patricia Murcia RN) 650 mg, Oral, Q4H PRN, Starting on [...] Adan Eldridge RN)0723 (Given - Provider: Meche Devi, JAMES) 0.2-0.5 mg, IV Push, Q2H PRN, Starting o n Fri12/05/21 at 2109, Until Fri12/06/21 at 0740, Severe Pain (Use First) HYDROmorphone PF (DILAUDID) 1 mg/mL injection 0.4-0.6 mg 0900 (Given - Provider: Meche Devi, JAMES)1230 (Given - Provider: Meche Devi, JAMES)1815 (Given - Provider: Mandy Jackson RN)2028 (Given - Provider: Cynthia Mahmood, JAMES) 0.4-0.6 mg, IV Push, Q2H PRN, Starting [...] RN) 0720 (Given - Provider: Meche miller RN)1233 (Given - Provider: Meche Devi RN)1814 (Given [...] PRN, Starting on 11/23 at 1835, Until Bee 12/06/21 at 0740, Moderate Pain (Use First) oxyCODONE (ROXICODONE) tablet 5-10 mg 10 38 (Given - Provider: Meche Devi RN)1638 (Given - Provider: Mandy Jackson RN)2028 (Given - Provider: Cynthia Mahmood RN) 0000 (Given - Provider: Hattie miller RN)0341 (Given - Provider: Hattie Maloney, JAMES)0938 (Given - Provider: Ludmila Neal, JAMES)1459 (Given - Provider: Patricia Murcia RN) 5-10 mg, Oral, Q4H PRN, Starting on Bee 12/06/21 at 0739, Until Fri12/07/21 at 2304, Moderate [...]
--- OUTSIDE RECORDS SUMMARY | 2022-03-12 16:02 | XMS_ITS | Encounter Summary ---
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] Encounter Details Date Type Department Care Team Description 12/24/2021 PRE VISIT [facility] Shelbie Ackerman *-*INCO MANASA RECORDS*-* [facility] Shanteli mohsen Thao MD (Astrocytoma (H) [address] [C71.9]) [place] [phone] (Wo rk) Social History Tobacco Use Types Packs/Day Years Used Date Former Smoker Smokeless Tobacco: Never Used Alcohol Use Standard Drinks/Week Comments Yes 0 (1 standard drink = 0.6 oz pure alcoho l) Sex Assigned at Date Recorded Not on file COVID-19 Exposure Response Date Recorded In the last 10 days, have you been in contact Unable to asse ss 12/19/2021 3:54 PM CDT with someone who was confirmed or suspected to have Coronavirus/COVID-19? documented as of this encounter Progress Notes Hattie Wallace - 12/24/2021 11:59 PM CDT Imaging disc arrived from [facility] - given to Damaso for upload documented in this encounter Miscellaneous Notes Telephone Encounter - Juan Carlos Bernard - 12/20/2021 3:45 PM CDT RECORDS STATUS - ALL OTHER DIAGNOSIS RECORDS RECEIVED FROM: [facility], [facility] DATE RECEIVED: 12/21 NOTES STATUS DETAILS OFFICE NOTE from referring provider [facility] Dr. Darinel Agarwal: 12/18/21 [place] 11/29/21 DISCHARGE SUMMARY from hospital [facility] 11/30/21 OPERATIVE REPORT [facility] 12/05/21: Craniotomy MEDICATION LIST [facility] LABS PATHOLOGY REPORTS [facility] 12/07/21: Path Consult ANYTHING RELATED TO DIAGNOSIS [facility]/ 12/06/21 GENONOMIC TESTING TYPE: [facility] 12/14/21: IMAGING (NEED IMAGES & REPORT) CT SCANS PACS 12/05/21, 12/01/21: [facility] 11/2021: [place] MRI PACS 11/30/21: [facility] 11/30/21: [place] documented in this encounter Plan of Treatment Not on filedocumented as of this encounter Visit Diagnoses Not on filedocumented in this encounter Care Teams Respiratory Supervisor Relationship Specialty Start Date End Date No Ref-Primary, Physician PCP - General 12/19/21 documented as of this encounter
--- OUTSIDE RECORDS SUMMARY | 2022-03-12 16:02 | XMS_ITS | Encounter Summary ---
:1970 Author Organization [place] Address [address] [place] [phone] Care Team Providers Name Role Phone No Ref-Primary Primary Care Provider Encounter Details Date Type Department Care Team Description 12/24/2021 Travel Social History Tobacco Use Types Packs/Day Years Used Date Former Smoker Smokeless Tobacco: Never Used Alcohol Use Standard Drinks/Week Comments Yes 0 (1 standard drink = 0.6 oz pure alcoho l) Sex Assigned at Date Recorded Not on file COVID-19 Exposure Response Date Recorded In the last 10 days, have you been in contact with No / Unsu re 12/24/2021 7:49 AM CDT someone who was confirmed or suspected to have Coronavirus/COVID-19? documented as of this encounter Plan of Treatment Not on filedocumented as of this encounter Visit Diagnoses Not on filedocumented in this encounter Care Teams Sap Business Analyst Relationship Specialty Start Date End Date No Ref-Primary, Physician PCP - General 12/19/21 documented as of this encounter
--- OUTSIDE RECORDS SUMMARY | 2022-03-12 16:02 | XMS_ITS | Encounter Summary ---
:1970 Author Organization [place] Address [address] [place] [address] Care Team Providers Name Role Phone No Ref-Primary Primary Care Provider Keesha Ackerman MD Unavailable Reason for Visit Reason Onset Date Comments Erroneous encounter-disregard 12/31/2021 Encounter Details Date Type Department Care Team Description 12/31/2021 Telephone [facility] Hattie Kelly [facility] encounter-disregard [address] [place] [phone] Social History Tobacco Use Types Packs/Day Years [...] on filedocumented in this encounter Care Teams Analytic Manager Relationship Specialty Start Date End Date No Ref-Primary, Physician PCP - General 12/19/21 Shelbie Ackerman, Assigned Neuroscience 2 MD Provider [address] [place] [address] documented as of this encounter
--- OUTSIDE RECORDS SUMMARY | 2022-03-12 16:02 | XMS_ITS | Encounter Summary ---
:1970 Author Organization [place] Address [address] [place] [address] Care Team Providers Name Role Phone No Ref-Primary Primary Care Provider Reason for Referral Consultation (Routine) - Pending Review Specialty Diagnoses / Procedures Referred By Contact Refer red To Contact Medical Oncology Diagnoses Astrocytoma (H) Shelbie Ackerman MD [address] [place] [phone] 5 Referral ID Status Reason Start Date Expiration Date Visits V isits Requested Authorized [id number] Pending 12/19/2021 12/19/2022 1 1 Review Encounter Details Date Type Department Care Team Description 12/19/2021 Transcribe Orders [facility] Shelbie Ackerman As trocytoma (H) [facility] MD Keesha (Primary Dx) Clinic [address] [place] [address] [place], [place] [phone] (Work) [phone] Social History Tobacco Use Types Packs/Day Years Used Date Never Assessed Sex Assigned at Date Recorded Not on file documented as of this encounter Plan of Treatment Scheduled Referrals Name Type Priority Associated Diagnoses Order S chedule Oncology/Hematology Referral Routine Astrocytoma (H) Expec anayeli: 12/19/2021, Adult Referral Expires: 11/24 documented as of this encounter Visit Diagnoses Diagnosis Astrocytoma (H) - Primary Malignant neoplasm of brain, unspecified site documented in this encounter Care Teams [employer] Relationship Specialty Start Date End Date No Ref-Primary, Physician PCP - General 12/19/21 documented as of this encounter
--- OUTSIDE RECORDS SUMMARY | 2022-03-12 16:02 | XMS_ITS | Encounter Summary ---
:1970 Author Organization [place] Address [address] [place] [address]. [place] [address] Care Team Providers Name Role Phone No Ref-Primary Primary Care Provider Encounter Details Date Type Department Care Team Description 12/24/[address] [facility] Tumor Conference Virtual Scheduling [address] [place] [phone] Social History Tobacco Use Types Packs/Day Years [...] on filedocumented in this encounter Care Teams Transplant Rn Relationship Specialty Start Date End Date No Ref-Primary, Physician PCP - General 12/19/21 documented as of this encounter
--- OUTSIDE RECORDS SUMMARY | 2022-03-12 16:02 | XMS_ITS | Encounter Summary ---
:1970 Author Organization [place] Address [address] [place] [address] Care Team Providers Name Role Phone No Ref-Primary Primary Care Provider Keesha Ackerman MD Unavailable Reason for Visit Reason Onset Date Comments Prior Auth - Medication 12/31/2021 Temozolomide [facility] Approved Encounter Details Date Type Department Care Team Description 12/31/2021 Telephone [facility] Hattie Kelly Prior Auth - Medication [facility] (Temozolomide PA [address] [place] [address] SE Approved) [place] [phone] Social History Tobacco Use Types Packs/Day [...] encounter Miscellaneous Notes Telephone Encounter - Hattie Kelly - 12/31/2021 1:44 PM CDT Images from the original note were not included. Prior Authorization Approval Authorization Effective Date: 12/31/2021 Authorization Expiration Date: 12/31/2022 Medication: Temozolomide PA Approved Approved Dose/Quantity: 30/30 days Reference #: [id number] Insurance Company: [employer] [place] - Expected CoPay: CoPay Card Available: Foundation Assistance Needed: Which Pharmacy is filling the prescription (Not needed for infusion/clinic administered): Pharmacy Notified: Yes Patient Notified: Yes Thank you, Neha Kelly Oncology Pharmacy Liaison II [email or web address] Telephone Encounter - Hattie Kelly - 12/31/2021 9:18 AM CDT PA Initiation Medication: Temozolomide PA Insurance Company: [employer] [place] - Pharmacy Filling the Rx: Filling Pharmacy Phone: Filling Pharmacy Fax: Start Date: 12/31/2021 [id number] mg [id number]- 20 MG documented in this encounter Plan of Treatment Not on filedocumented as of this encounter Visit Diagnoses Not on filedocumented in this encounter Care Teams Flat Breakdown Processor Relationship Specialty Start Date End Date No Ref-Primary, Physician PCP - General 12/19/21 Shelbie Ackerman, Assigned Neuroscience 2 MD Provider [address] [place] [address] documented as of this encounter
--- OUTSIDE RECORDS SUMMARY | 2022-03-12 16:02 | XMS_ITS | Encounter Summary ---
:1970 Author Organization [facility] Address [address] [place] [address]. [place] [address] Phone Care Team Providers Name Role Phone Unavailable Primary Care Provider Unavailable Encounter Details Date Type Department Care Team Description 11/30/2021 Orders Only [facility] Film Room Provider, Outside Referral of patient [facility] OUTSIDE PROVIDER (Primary Dx) [place], [place] Radiology Department [id number] [facility] [address] [address] Social History Tobacco Use Types [...] this encounter Results MR HEAD OUTSIDE FILMS (11/30/2021 11:43 AM CDT) Specimen (Source) Anatomical Location Collection Method / Collectio n Time Received Time / Laterality Volume Narrative Dummy, [id number]-[id number] - 2 3:18 PM CDT Outside Film Only Outside Provider OUTSIDE FILMS CT HEAD OUTSIDE FILMS (11/29/2021 10:37 PM CDT) Specimen (Source) Anatomical Location Collection Method / Collectio n Time Received Time / Laterality Volume Narrative Dummy, [id number]-[id number] - 2 3:19 PM CDT Outside Film Only Outside Provider OUTSIDE FILMS CT HEAD OUTSIDE FILMS (11/29/2021 10:17 PM CDT) Specimen (Source) Anatomical Location Collection Method / Collectio n Time Received Time / Laterality Volume Narrative Dummy, [id number]-[id number]-[id number] - 2 3:19 PM CDT Outside Film Only Outside Provider OUTSIDE FILMS documented in this encounter Visit Diagnoses Diagnosis Referral of patient - Primary Referral of patient without examination or treatment documented in this encounter
--- OUTSIDE RECORDS SUMMARY | 2022-03-12 16:02 | XMS_ITS | Encounter Summary ---
:1970 Author Organization [place] Address [address] [place] [address] Care Team Providers Name Role Phone No Ref-Primary Primary Care Provider Reason for Referral Consultation (Routine: Next available opening) - Pending Review Specialty Diagnoses / Procedures Referred By Contact Refer red To Contact Diagnoses Astrocytoma (H) Shelbie Ackerman MD [address] [place] [address] 5 Referral ID Status Reason Start Date Expiration Date Visits V isits Requested Authorized [id number] Pending 12/24/2021 12/24/2022 1 1 Review Reason for Visit Reason Comments Oncology Clinic Visit Astrocytoma Consultation (Routine) - Pending Review Specialty Diagnoses / Procedures Referred By Contact Refer red To Contact Medical Oncology Diagnoses Astrocytoma (H) Sheblie Ackerman MD [address] [place] [address]345 5 Referral ID Status Reason Start Date Expiration Date Visits V isits Requested Authorized [id number] Pending 12/19/2021 12/19/2022 1 1 Review Encounter Details Date Type Department Care Team Description 12/24/2021 Oncology Visit [facility] Shelbie Ackerman Chemo therapy-induced nausea and vomiting (Primary Dx); [facility] Edward Thao MD Astrocytoma (H); Clinic [address] [place] [address] High risk for chemotherapy-induced infec tious complication; [address] [place] [address] Antineo plastic chemotherapy induced pancytopenia (H); [place] [phone] Screening for viral disease; [place], [place] [phone] High grade a strocytoma of brain (H); [phone] (Work) Anaplastic astrocytoma, 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 NEURO-ONCOLOGY INITIAL VISIT December 24, 2021 CHIEF COMPLAINT: Ms. 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 She is presenting to this initial clinicvisit as referred by Dr. Darinel Dunlap for evaluation and recommendations on treatment. Accompanying her to this visit is Libby (mother). HISTORY OF PRESENT ILLNESS A summary of the patient???s oncologic history is as follows; -11/30/2021 PRESENTATION: Intermittent word finding difficulties; partial seizures with a loss of consciousness. -11/30/2021 MR brain imaging with a non-contrast enhancing left temporal mass with extension into the inferior parietal lobe, thalamus, and posterior internal capsule. -12/05/2021 SURGERY: Biopsy by Dr. Darinel Dunlap. PATHOLOGY: Astrocytoma, WHO grade 3. Immunostain for IDH1 R132H mutation is negative; ordered NGS sequencing to confirm the tumor is IDH wildtype. Molecular testing for TERT promoter mutation, EGFR amplification, +7/-10 chromosome copy number changes are to be performed. MGMT gene methylation results pending. -12/24/2021 NEURO-ONC: Recommending chemoradiotherapy. Today in clinic; -Mia is doing well today and Libby agrees. -Denies any issues with word finding now. -Noting intermittent hand tingling. -In the setting of lower back issues, right >> left leg weakness. -No changes in vision. -No other periods of word-finding difficulty. On Keppra, tolerating this mediation well. No significant mood issues, but noting some fatigue. -Eyes appear more bulged/ open. -Off all steroids as of Friday. Sleep is better off the steroids. 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 Cognition is good, but still recovering. REVIEW OF SYSTEMS A comprehensive ROS negative except as in HPI. MEDICATIONS Current Outpatient Medications Medication Sig Dispense Refill ??? TURMERIC PO ??? levETIRAcetam (KEPPRA) 1000 MG tablet ??? Vit-Fe Fumarate-FA ( PLUS) 27-1 MG TABS Take 1 tablet by mouth daily ??? vitamin B-12 (CYANOCOBALAMIN) 1000 MCG tablet Daily DRUG ALLERGIES Allergies Allergen Reactions ??? Adhesive Tape Itching ??? Lactose Rash PHYSICAL EXAMINATION BP 135/85 Pulse 70 Temp 98.2 ??F (36.8 ??C) (Oral) Ht 1.659 m (5' 5.32) Wt 95.3 kg (210lb) SpO2 99% BMI 34.61 kg/m?? Wt Readings from Last 2 Encounters: 12/24/21 95.3 kg (210 lb) Ht Readings from Last 2 Encounters: 12/24/21 1.659 m (5' 5.32) KPS: 90-100 -Generally well appearing. -Respiratory: Normal breath sounds, no audible wheezing. -Hematologic/ lymphatic: No abnormal bruising. No leg swelling. -Psychiatric: Normal mood and affect. Pleasant, talkative. -Neurologic: MENTAL STATUS: Alert, oriented to date. Recall: Intact. Speech fluent; some words substitiution noted. Able to name; thumbnail, bow of glasses, face of watch, eyelashes, eyebrow. Comprehension intact to multi-step commands. Good right-left orientation. CRANIAL NERVES: Pupils are equal, round. Extraocular movements full, denies diplopia. Visual garcia full. Facial sensation intact to light touch. Symmetric facial movements. Hearing intact. No dysarthria. MOTOR: No pronation or drift. No orbiting. Able to rise from a chair without use of arms. On toe/ heel walk, equal distance from floor to heels/ toes. SENSATION: Numbness of the 4th and 5th fingers in both hands. L4-L5 radiculopathy on the right. COORDINATION: Intact finger-nose with eyes open and closed. GAIT: Walks without assistance. Good speed. Normal stride length and heel strike. Normal turns. Normal arm swing. Able to toe, heel walk. Able to tandem walk. MEDICAL RECORDS Obtained and personally reviewed all available outside medical records in addition to reviewing any records available in our electronic system. LABS Personally reviewed all available lab results; CBC, CMP, LP results, pathology. IMAGING Personally reviewed MR brain imaging from last month. To my eye, there is a non-contrast enhancing left temporal mass with extension into the inferior parietal lobe, thalamus, and posterior internal capsule. Imaging was shown to and results were reviewed with Celestine. IMPRESSION Clinic time for this high complexity encounter was spent discussing in detail the nature of her cancer, answering questions pertaining to my recommendations, and devising the treatment plan as outlinedbelow. It was explained to Celestine that final pathology remains pending. At this time, the results ofa biopsy sample reveal histology that meets criteria for a WHO grade 3 astrocytoma. We discussed theinfluences of biopsy bias, especially when sampling a non-contrast enhancing cancer. We discussed how immunostain (IHC) for the most common IDH1 mutation (at site R132H) was negative, but given Mia's age of < 55 years old, NGS sequencing has been ordered to confirm the tumor is not IDH wildtype. In addition, additional molecular testing for such mutations as TERT promoter mutation, EGFR amplification, +7/-10 chromosome copy number changes are also pending. MGMT gene methylation testing is pending. Given the multi-focality of the her cancer, Mia's age, and the IDH wildtype status by IHC, we discussed how the final pathology could be consistent with a WHO grade 4 astrocytoma or glioblastoma. Unfortunately, regardless of the grade (grade 3 or 4) we discussed how there is currently no cure for this type of brain cancer. Therefore, cancer-directed treatment strives to slow further growth and increase the time interval to recurrence. With regard to cancer-directed therapy, a multimodal treatment approach first involves attempting a maximum safe surgical resection. To date, only a biopsy has been performed and I have personally communicated with Dr. Darinel Dunlap regarding weather to the remaining tumor bulk of the cancer, particularly that in the parietal lobe can be further resection. ADDENDUM: I spoke with Dr. Dunlap on he recommended against additional surgery. Will move forward with chemoradiotherapy. Referral to radiation oncology at [facility] for discussion about the use of radiation. WhileI explained to Mia and Libby that there is a lack of consensus regarding the use of adjuvant temozolomide with radiation for WHO grade 3 astrocytomas, given multiple factors concerning for a more aggressive cancer (multifocality, IDH wildtype, etc), my recommendation is to proceed with a combination of radiation therapy plus temozolomide. Today, we reviewed the risks/ benefits of temozolomide with anticipated side effects of this treatment including fatigue, nausea, and constipation. Supportive medications; Zofran, Bactrim. Baseline labs; CBC, CMP, hep B plus monitoring labs; CBC weekly with chemoradiation, CMP every 4 weeks ordered. PROBLEM LIST High grade glioma Seizures PLAN -CANCER-DIRECTED THERAPY- -As above. -STEROIDS- -Currently off dexamethasone. -SEIZURE MANAGEMENT- -Given history of seizures, will continue current antiepileptic regimen of Keppra for the foreseeable future. -Given loss of consciousness, there is no driving for 3 months (03/01/2022). Return to clinic pending start of treatment. In the meantime, Mia knows to call with questions or concerns or to report new complaints and can be seen sooner if needed. Shelbie Ackerman MD Neuro-oncology documented in this encounter Nursing Notes Chiquita Bernard CMA - 12/24/2021 8:00 AM CDT Oncology Rooming Note December 24, 2021 8:04 AM Mia Cedillo is a 51 year old female who presents for: Chief Complaint Patient presents with ??? Oncology Clinic Visit Astrocytoma Initial Vitals: BP 135/85 Pulse 70 Temp 98.2 ??F (36.8 ??C) (Oral) Ht 1.659 m (5' 5.32) Wt 95.3 kg (210 lb) SpO2 99% BMI 34.61 kg/m?? Estimated body mass index is 34.61 kg/m?? as calculated from the following: Height as of this encounter: 1.659 m (5' 5.32). Weight as of this encounter: 95.3 kg (210 lb). Body surface area is 2.1 meters squared. No Pain (1) Comment: Data Unavailable No LMP recorded. Allergies reviewed: Yes Medications reviewed: Yes Medications: Medication refills not needed today. Pharmacy name entered into [facility]: [facility] [address] [place] [address] Clinical concerns: none Chiquita Bernard CMA documented in this encounter Plan of Treatment Scheduled Orders Name Type Priority Associated Diagnoses Order S chedule CBC with Platelets & Lab Panel Routine Antineoplastic weekl y for 52 Differential chemotherapy induced Occurre nces starting pancytopenia (H) 12/29/2021 until 12/29/2022 Comprehensive metabolic Lab Routine Chemotherapy-doni gal montly for 24 panel nausea and vomiting Occurren candice starting 12/29/2021 unti l 12/29/2022 Hepatitis B core Lab Routine High risk for Expected: 12/29/2021 antibody chemotherapy-induced (Approx imate), infectious compl ication Expires: 12/29/2022 Screening for viral disease Hepatitis B surface Lab Routine High risk for Expecte d: 12/29/2021 antigen chemotherapy-induced (Approx imate), infectious compl ication Expires: 12/29/2022 Screening for viral disease Scheduled Referrals Name Type Priority Associated Diagnoses Order S chedule Radiation Therapy Referral Routine: Next Astrocytoma (H) Expect ed: Referral available opening 12/24/2021 (Approximate), Expires: 12/24/2022 documented as of this encounter Visit Diagnoses Diagnosis Chemotherapy-induced nausea and vomiting - Primary Nausea with vomiting Astrocytoma (H) Malignant neoplasm of brain, unspecified site High risk for chemotherapy-induced infec tious complication Unspecified personal history presenting hazards to health Antineoplastic chemotherapy induced panc ytopenia (H) Screening for viral disease Special screening examination for unspec ified viral disease High grade astrocytoma of brain (H) Anaplastic astrocytoma, IDH-wildtype (H) documented in this encounter Care Teams Environmental Aide Relationship Specialty Start Date End Date No Ref-Primary, Physician PCP - General 12/19/21 documented as of this encounter
--- OUTSIDE RECORDS SUMMARY | 2022-03-12 16:02 | XMS_ITS | Encounter Summary ---
:1970 Author Organization [place] Address [address] [place] [address] Care Team Providers Name Role Phone No Ref-Primary Primary Care Provider Encounter Details Date Type Department Care Team Description 12/25/2021 [facility] Astrocytoma (H) (Primary Dx) [facility] [address] [place], [place] [phone] Social History Tobacco Use Types Packs/Day Years [...] Procedure Name Priority Date/Time Associated Comments Diagnosis LABORATORY Routine 12/25/2021 4:26 Astrocytoma (H) Results for this MISCELLANEOUS ORDER PM CDT procedur e are in the results section. [place] MISCELLANEOUS Routine 12/25/2021 4:26 Astrocytoma (H) Re sults for this TEST PM CDT procedure are i n the results section. 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 ?The following CLINICALLY RELEVANT VARIANTS were identified: ?Gene: TERT ?DNA Change: c.-124C>T (also known as C228T) ?Gene: CHEK2 ?DNA Change: c.1100del ?Amino Acid Change: p.M040Ros*15 (T op342Urymm*15) ?Gene: LZTR1 ?DNA Change: c.27dup ?Amino Acid Change: p.Q10Afs*24 (Gl d53Ohkic*24) ?Gene: SETD2 ?DNA Change: c.1748_1751del ?Amino Acid Change: p.R421Yqc*17 (L vv018Gimvc*17) ?The following VARIANTS OF UNCERTAI N SIGNIFICANCE were ?identified: ?Gene: CIC ?DNA Change: c.4627A>G ?Amino Acid Change: p.J0897V (Thr15 43Ala) ?Gene: ARID2 ?DNA Change: c.3202C>T ?Amino Acid Change: p.K8151H (Arg10 68Cys) ?Gene: GLI2 ?DNA Change: c.4464G>T ?Amino Acid Change: p.T1491L (Leu14 88Phe) ?NO reportable SEQUENCE VARIANTS we re identified involving ?the remaining tested genes, includ ing IDH1, IDH2, H3-3A ?(previously H3F3A), ATRX, and TP53 . ?FUSION testing FAILED after multip le attempts due to ?insufficient amplifiable RNA. Plea se send additional ?formalin fixed material if testing is still desired. Refer ?to [employer] ([place] test I D NONCP) or call ? for more informatio n about specimen ?requirements for this test. ??Interpretation ?SEE NOTE ?ASSOCIATIONS BETWEEN TERT MUTATION S AND DIFFUSE GLIOMAS ?Approximately 50-60% of adult liv viduals with a diffuse ?glioma have a somatic mutation in the TERT gene (1-4). TERT ?encodes the catalytic subunit of t elomerase, an enzyme ?complex that regulates telomere le ngth. Telomerase ?activation results in maintenance of telomere length and ?plays a central role in tumorigene sis by allowing cancer ?cells to overcome cellular senesce nce (5). The c.-124C>T ?(also known as C228T) and c.-146C> T (also known as C250T) ?variants are frequent activating m utations in the TERT ?promoter region, and have been chano wn to increase telomerase ?activity (6-9). ?Among adult diffuse gliomas, TERT promoter mutations have ?been primarily identified in oligo dendroglioma and primary ?glioblastoma. Less frequently, TER T promoter mutations have ?also been observed in lower-grade infiltrating (diffuse and ?anaplastic) astrocytomas (1-4, 10- 13). ?Of note, the presence of TERT prom oter mutations has been ?associated with a less favorable p rognosis in ?IDH-wildtype lower-grade (WHO gr ephraim II/III) diffuse ?astrocytic gliomas as, despite daren ng a histologically WHO ?grade II or III neoplasm, such andrews ors have been shown to ?follow a clinical course closely r esembling that of an ?IDH-wildtype glioblastoma (14). Based on the cIMPACT-NOW ?update 3, the finding of a TERT pr omoter mutation in an ?IDH/H3-wildtype lower-grade diff use astrocytic glioma is ?one of the defining molecular crit eria for the integrated ?diagnosis of a diffuse astrocytic glioma, IDH-wildtype, ?with molecular features of gliobla stoma, WHO grade IV (15). ?Currently, there are no known clin ically approved therapies ?that specifically target TERT muta tions. ?REFERENCES ?1. cancer-beta.jaden.ac.uk/cosmic ; Nucleic Acids Res. 2017 ?Aug 28;45(D1):K650-Z283 (PMID 63515 578) ?2. Proc Natl Acad Sci [place] A. Nov;110(15):6021-6 ?(PMID 95452531) ?3. Acta Neuropathol. Jul 2013;126( 6):907-15 (PMID 86794977) ?4. Acta Neuropathol. Oct 24 2017; (PMID 58473920) ?5. Mol Cancer Res. Nov 2015;14(4): 315-23 (PMID 81659434) ?6. Science. Oct 16 2012;339(6867): 959-61 (PMID 61976281) ?7. Science. Oct 16 2012;339(7706): 957-9 (PMID 66218654) ?8. Eur J Cancer. December 2014;51(8):96 9-76 (PMID 77730802) ?9. Cell. Sep 21 2016;164(3):550-63 (PMID 10868082) ?10. Acta Neuropathol. Jul 2013;126 (6):931-7 (PMID 89495418) ?11. Cell. Jun 03 2013;155(2):462-7 7 (PMID 52549052) ?12. N Engl J Med. Feb 16 2015;372( 26):2481-98 (PMID ?10341899) ?13. N Engl J Med. Feb 16 2015;372( 26):2499-508 (PMID ?90819629) ?14. Acta Neuropathol. Jan 2017;133 (6):1001-16 (PMID ?27993643) ?15. Acta Neuropathol. May 20 2018; (PMID 56836493) ?ASSOCIATIONS BETWEEN CHEK2 MUTATIO NS AND DIFFUSE GLIOMAS ?Estimated somatic mutation frequen cy data for CHEK2 gene in ?diffuse gliomas are not available (1). CHEK2 encodes a ?serine/threonine-protein kinase th at functions as a ?transducer kinase required for DNA damage checkpoint ?response (2, 3). CHEK2 functions a s a tumor suppressor and ?inactivation through ftdb-vm-eaiso ion mutations results in ?genome instability and contributes to tumorigenesis (4, 5). ?Germline (i.e. constitutional) JEIMY K2 mutations are ?associated with increased risk for development of some ?tumor types including breast, pros barrett and colorectal ?cancer (6). The p.B484Ftn*15 (c.11 00del) alteration is ?predicted to result in protein eduardo ncation and has been ?shown to impair protein function ( 7). This alteration has ?not been reported as a confirmed s omatic (i.e. ?tumor-specific) mutation (1, 8), a nd has been primarily ?reported as a germline mutation as sociated with increased ?risk for cancer development (9). ?Among adult diffuse gliomas, CHEK2 mutations have been ?reported primarily in astrocytic t umors (8, 10). ?Of note, the variant frequency at which the p.S589Oon*15 ?(c.1100del) alteration was identif ied raises the ?possibility that this mutation may be germline rather than ?somatic in origin. This test does not distinguish between ?germline and somatic alterations. Consider follow-up ?germline testing on a blood sample in conjunction with ?genetic counseling as, if germline in origin, the ?p.A766Sqv*15 (c.1100del) mutation may indicate increased ?risk for certain tumor types and w arrant appropriate ?screening procedures and/or prophy lactic measure. ?Currently, there are no known clin ically approved therapies ?that specifically target CHEK2 mut ations. ?REFERENCES ?1. cbioportal.org (Version 1.5.1); Cancer discov. ?2012;2(5):401-4 (PMID 23316254); S ci Signal. ?2012;6(269):pl1 (PMID 09226920) ?2. Zoë Rev Cancer. Jul 2007;7(12): 925-36 (PMID 22893100) ?3. J Mol Cell Biol. Jul 2014;6(6): 442-57 (PMID 55354520) ?4. Zoë Cell Biol. December 2009;12(5):4 92-9 (PMID 86546054) ?5. Cancer Cell. Aug 07 2010;18(6): 619-29 (PMID 59819304) ?6. Am J Hum Tori. Jul 2004;75(6): 1131-5 (PMID 31466536) ?7. Cancer Res. May 09 2006;66(18): 8907-70 (PMID 19982011) ?8. cancer-beta.jaden.ac.uk/[employer] ; Nucleic Acids Res. 2017 ?Aug 28;45(D1):G977-R643 (PMID 53968 578) ?9. Am J Hum Tori. Mar 2002;71(2): 432-8 (PMID 98777424) ?10. Acta Neuropathol. December 2012;125 (5):659-69 (PMID 88610423) ?ASSOCIATIONS BETWEEN LZTR1 MUTATIO NS AND DIFFUSE GLIOMAS ?Approximately 1.2-1.8% of individu als with a diffuse glioma ?have a somatic mutation in the LZT R1 gene (1, 2). LZTR1 ?encodes a Golgi network-associated protein that is an ?adaptor of CUL3-containing E3 ubiq uitin ligase complexes ?(3, 4). LZTR1 functions as a tumor suppressor and ?inactivation of LZTR1 through loss -of-function mutations, ?particularly those occurring in th e Kelch and BTB-BACK ?domains, leads to limiting self-re newal and growth of ?glioma spheres that retain stem ce ll features (4). ?Among diffuse gliomas, LZTR1 mutat ions have been primarily ?reported in glioblastoma; less familia quently, LZTR1 mutations ?have also been described in lower- grade diffuse gliomas (1, ?2). ?Currently, there are no known clin ically approved therapies ?that specifically target LZTR1 mut ations. ?REFERENCES ?1. cancer-beta.jaden.ac.uk/[employer] ; Nucleic Acids Res. 2016 ?Aug 28;45(D1):Q984-Y235 (PMID 03278 578) ?2. cbioportal.org (Version 1.5.1); Cancer discov. ?2011;2(5):401-4 (PMID 88967397); S ci Signal. ?2013;6(269):pl1 (PMID 00395650) ?3. J Biol Chem. Oct 18 2005;281(8) :1799-28 (PMID 86467115) ?4. Zoë Tori. May 2013;45(10):1141 -9 (PMID 66165545) ?ASSOCIATIONS BETWEEN SETD2 MUTATIO NS AND DIFFUSE GLIOMAS ?Approximately 1.5-6% of individual s with a diffuse glioma ?have a somatic mutation in the SET D2 gene (1-3). SETD2 ?encodes a methyltransferase that t rimethylates K36 of ?histone H3 (L3F59uk1) as well as o ther proteins such as ?tubulin (4-6). SETD2 acts as a andrews or suppressor through ?creation of the A7R38xx0 micheal, whi ch is involved in ?chromatin structure and transcript ion regulation, and DNA ?mismatch (B3T14xi7 micheal is require d for MSH6 recruitment to ?the MutS alpha complex) and double -strand break repair ?(7-10). Functional loss of SETD2 r esults in decreased ?H4F80rc4 and genomic instability, contributing to ?tumorigenesis (11, 12). ?Among adult diffuse gliomas, SETD2 mutations have been ?reported primarily in high-grade a nd in astrocytic tumors; ?less frequently, SETD2 mutations h ave also been reported in ?oligodendroglial tumors (1, 3). ?Of note, SETD2 mutations have been observed in conjunction ?with an IDH mutation, as seen in t his case (3, 13). ?Currently, there are no known clin ically approved therapies ?that specifically target SETD2 mut ations. ?REFERENCES ?1. [email or web address]://cancer.jaden.ac.uk/cos janneth; Nucleic Acids Res. ?2016Aug 28;45(D1):S424-R952 (PMID 29216830) ?2. cbioportal.org (Version 1.5.1); Cancer discov. ?2011;2(5):401-4 (PMID 85602185); S ci Signal. ?2013;6(269):pl1 (PMID 21037099) ?3. Acta Neuropathol. December 2012;125( 5):659-69 (PMID 42618591) ?4. EMBO J. Sep 16 2007;27(2):406-2 0 (PMID 31859014) ?5. Cell. Apr 04 2016;166(4):950-62 (PMID 21193166) ?6. Cell. Mar 20 2017;170(3):492-50 6 e14 (PMID 57031300) ?7. Zoë Rev Mol Cell Biol. Sep 16;13(2):115-26 (PMID ?65279605) ?8. Cell. Dec 17 2012;153(3):590-60 0 (PMID 78620895) ?9. eLife. Dec 28 2013;3:t88980 (PMI D 33793677) ?10. Cell reports. Feb 17 2014;7(6) :2006-18 (PMID 36097498) ?11. Zoë Tori. Oct 2013;46(3):287- 93 (PMID 77792010) ?12. Mol Cancer Res. Jul 2016;14(12 ):1173-5 (PMID 34016758) ?13. N Engl J Med. Feb 16 2015;372( 26):2481-98 (PMID ?16833944) ?VARIANT(S) OF UNCERTAIN SIGNIFICAN CE ?One or more variants of uncertain significance were ?identified. The single or multiple identified variants were ?not observed at significant freque ncy in population ?germline/cancer somatic variant da tabases nor predicted to ?be functionally significant based on variant type/in silico ?algorithm results. Additionally, t here was no convincing ?published evidence of cancer assoc iation. Therefore, the ?clinical significance of such vari ant(s) is unknown. ? ADDITIONAL INFO RMATION ?Microscopic examination was perfor med by a pathologist to ?identify areas of tumor for enrich ment by macrodissection. ?Next generation sequencing was per formed to test for the ?presence of a mutation within appr oximately 95% of exonic ?regions and exon/intron boundaries of the following 118 ?targeted genes: ACVR1 (ALK2), AKT1 , AKT2, AKT3, APC, ?ARID1A, ARID2, ANIYAH, ATRX, BAP1, BC OR, BCORL1, BRAF, CBL, ?CDK6, CDKN2A, CDKN2B, CDKN2C, CHEK 2, CIC, CTDNEP1, CTNNB1, ?DAXX, DDX3X, DNMT3A, EGFR, EZH2, F GFR1, FGFR2, FGFR3, ?FUBP1, GLI2, GLI3, GNA11, GNAQ, GN , GPS2, H3F3A, ?CYVK3Z1H, VIPY7L3R, IDH1, IDH2, JA K2, KDM5A, KDM5C, KDM6A, ?KLF4, KMT2B (MLL4), KMT2C (MLL3), KMT2D (MLL2), KRAS, LDB1, ?LRP1B, LZTR1, MAP2K1, MDM2, MLH1, MSH2, MSH3, MSH6, MYB, ?MYBL1, MYC, MYCN, NF1, NF2, NOTCH1 , NOTCH2, NRAS, PARP1, ?PDGFRA, KYQ9V1H, PIK3CA, PIK3R1, P IK3R2, POLE, POLR2A, ?POT1, PPM1D, OKNJO1N, PTCH1, PTCH2 , PTEN, PTPN11, PTPRD, ?QKI, RAF1, RB1, RELA, RPL5, SDHA, SDHB, SDHC, SDHD, SETD2, ?SHH, SHOC2, SMARCA4 (BRG1), SMARCB 1, SMARCE1, SMO, SOS1, ?STAG2, STAT3, SUFU, TCF12, TERT (i ncluding promoter ?region), TET1, TET2, TP53, TPTE2, TRAF7, TSC1, TSC2, WRN, ?WT1, YAP1 and ZBTB20. ?Next-generation sequencing was per formed to test for the ?presence of rearrangements in the following 81 targeted ?genes, including 104 known gene fu sions and 29 known ?abnormal gene transcript variants: AFAP1, AGBL4, ATG7, ?BCAN, BEND2, BIRC5, BRAF, BTBD1, C 81qni13, F5lyw19, CLCN6, ?CLIP2, CXXC5, DDX31, DIP2C, EGFR, ELAVL3, ESR1, ETV6, ?EWSR1, MZO780L, ONI810Q, FGFR1, FG FR3, FLI1, FOXR2, FXR1, ?FYCO1, GFI1, GFI1B, GLI1, GNAI1, J PX, FRHX7465, IFS129946, ?MACF1, MAMLD1, MET, MKRN1, MMP16, MN1, MST1R, MYB, MYBL1, ?MYC, NAB2, NACC2, NAV1, NDRG1, RUSS FE, NFASC, NRF1, NTRK1, ?NTRK2, NTRK3, PCDHGA1, PCSK5, PDGF RA, PKD1, PRKCA, PTPRZ1, ?PVT1, QKI, RAF1, EFFIE, RELA, RNF13 0, SEPT14, EFJ24L9, ?SLIT1, SRGAP3, TE2IWB0, STAT6, TAC C1, TACC3, TFG, TPM3, ?UBE2J2, VCL, WHSC1, and YAP1. ?Mutation nomenclature is based on build GRCh37 (hg19). For ?details about gene reference trans cripts (RefSeq accession ?numbers), specific targeted region s of each gene, and ?additional information about this test, see ?www.[employer] (Test ID NO NCP). ?CLINICAL CORRELATIONS ?Test results should be interpreted in context of clinical ?findings, tumor sampling, histopat hology, and other ?laboratory data. If results obtain ed do not match other ?clinical or laboratory findings, p brandy contact the ?laboratory for possible interpreta tion. Misinterpretation ?of results may occur if the inform ation provided is ?inaccurate or incomplete. ?This test does not differentiate b etween somatic and ?germline alterations. Additional t esting may be necessary ?to clarify the significance of res ults if there is a ?potential hereditary risk. ?The presence or absence of a mutat ion or rearrangement may ?not be predictive of response to t herapy in all patients. ?TECHNICAL LIMITATIONS ?The DNA mutation portion of the as say has been shown to ?detect >97% of single base substit utions, insertions, and ?deletions within the reportable ra nge of this assay. ?The RNA fusion portion of the test exhibited 94.2% ?sensitivity (49/52) in detecting f usion transcripts ?(confirmed detection by reverse tr anscriptase polymerase ?chain reaction or chromosomal micr oarray). No fusion ?transcripts were detected in 25 un ique samples (100% ?specificity compared to chromosoma l microarray) resulting ?in an overall concordance of 96.1% . ?This test does not detect large in sertions, deletions, or ?duplications or genomic copy numbe r variants (such as ?amplification). ?Rare polymorphisms may be present that could lead to false ?negative or false positive results . ?A negative (wild-type) result does not rule out the ?presence of a mutation or rearrang ement that may be present ?but below the limits of detection of this assay. The ?analytical sensitivity of this ass ay for sequence ?reportable alterations is 15% muta nt allele frequency with ?a minimum coverage of 100X in a sa mple with >=30% tumor ?content, and for rearrangements is a minimum coverage of 10 ?targeted fusion reads with 5 uniqu e fusion molecules in a ?sample with >=10% tumor content. ?Genes may be added or removed base d on updated clinical ?relevance. See www.[employer] (Test ID NONCP) for ?the most up to date list of genes included in this test. ?TEST CLASSIFICATION ?This test was developed and its pe rformance characteristics ?determined by [facility] in a man ner consistent with CLIA ?requirements. This test has not be en cleared or approved by ?the U.S. Food and Drug Administrat ion. ??Additional Information ?SEE NOTE ?ALTERNATE NOMENCLATURE ?The TERT c.-124C>T alteration is a lso known as C228T. ?LOW COVERAGE AREA(S) (<100x covera ge) ?1. NF1 gene: intron 43, exon 44 ?CLINICAL TRIALS ?Possible clinical trials of benefi t for this patient can be ?found at the following sites: ?1) ClinicalTrials.gov: ?www.clinicaltrials.gov/ct2/search/ advanced ?2) [facility]: www.[place]/clinical-trials/ ?3) National Cancer [place]: ?www.cancer.gov/clinicaltrials/sear ch ?REFERENCE TRANSCRIPTS ?Sequence variant nomenclature is b ased on the following ?RefSeq accession numbers (build GR Ch37 (hg19)):ARID2 ?[id number], CHEK2 [id number], CIC NM _[id number], GLI2 [id number], ?LZTR1 [id number], SETD2 [id number] a nd TERT [id number]. ??Specimen ?Tissue, Tumor ?Tissue ID ? [id number] ?Released By ? SEE NOTE ?RESULT: Matias Sandoval M.D., Ph.D. ?Test Performed by: ?[facility] ?[address] [place] [address] ?Mattress Maker: Chintan Campbell Ph.D.; CLIA# [id number] Specimen Anatomical Collection Method Collection Time Receive d Time (Source) Location / / Volume Laterality Fixed Tissue TOPOGRAPHY UNKNOWN Non-blood 12/25/2021 4:26 12/25 / Unknown Collection / PM CDT 4:26 PM CDT Unknown Lamonte Redmond MD LAB - BLOOD ORDERABLES Performing Organization Address City/State/ZIP Code Phon e Number [facility] [place] [phone] Laboratories [address] [place] [address] [place] [address], [place] [facility]; NONCP (Laboratory Miscellaneous Order) (12/25/2021 4:26 PM CDT) Component Value Ref Test Analysis Performed At Patholo gist Range Method Time Signature See Scanned Specimen JANNETH 12/26/2021 [facility] Result received. 12:45 PM Reordered and CDT sent to performing laboratory. Report to follow up on completion. Performing [facility] 12/26/2021 [facility] Laboratory Laboratories 12:45 PM LABS CDT Test Name NEURO ONCOLOGY [facility] 12/26/2021 [facility] EXPANDED GENE 12:45 PM PANEL WITH CDT REARRANGEMENT TUMOR Test Code NONCP JANNETH 12/26/2021 [facility] 12:45 PM LABS CDT Specimen Anatomical Collection Method Collection Time Receive d Time (Source) Location / / Volume Laterality Fixed Tissue TOPOGRAPHY UNKNOWN Non-blood 12/25/2021 4:26 12/25 / Unknown Collection / PM CDT 4:26 PM CDT Unknown Lamonte Redmond MD LAB - BLOOD ORDERABLES Performing Organization Address City/State/ZIP Code Phon [place] [address] [phone] Lab [address] [facility] [address] Building, Room 3-580 SPECIALTY LABS Specialty Lab [place], [place] [phone] [place] [phone] [address] Building, Room 3-580 documented in this encounter Visit Diagnoses Diagnosis 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
--- OUTSIDE RECORDS SUMMARY | 2022-03-12 16:02 | XMS_ITS | Encounter Summary ---
:1970 Author Organization [place] Address [address] [place] [address] Care Team Providers Name Role Phone No Ref-Primary Primary Care Provider Keesha Ackerman MD Unavailable Reason for Visit Reason Onset Date Comments Prior Auth - Medication 12/31/2021 Erroneous encounter-disregard 12/31/2021 Encounter Details Date Type Department Care Team Description 12/31/2021 Telephone [facility] Hattie Kelly Prior Auth - [facility] Medication; Erroneous [address] [place] [address] [place] [address] Social History Tobacco Use Types [...] on filedocumented in this encounter Care Teams Wet Finisher Wool Relationship Specialty Start Date End Date No Ref-Primary, Physician PCP - General 12/19/21 Shelbie Ackerman, Assigned Neuroscience 2 MD Provider [address] [place] [address] documented as of this encounter
--- OUTSIDE RECORDS SUMMARY | 2022-03-12 16:02 | XMS_ITS | Encounter Summary ---
:1970 Author Organization [place] Address [address] [place] [address] Care Team Providers Name Role Phone No Ref-Primary Primary Care Provider Encounter Details Date Type Department Care Team Description 12/19/2021 Travel Social History Tobacco Use Types Packs/Day [...] on filedocumented in this encounter Care Teams Architect In Training Relationship Specialty Start Date End Date No Ref-Primary, Physician PCP - General 12/19/21 documented as of this encounter
--- OUTSIDE RECORDS SUMMARY | 2022-03-12 16:02 | XMS_ITS | Encounter Summary ---
:1970 Author Organization [place] Address [address] [place] [address] Care Team Providers Name Role Phone No Ref-Primary Primary Care Provider Keesha Ackerman MD Unavailable Encounter Details Date Type Department Care Team Description 12/19/2021 Documentation Only [facility] Un known Clinic [address] [place] [phone] Social History Tobacco Use Types Packs/Day Years [...] on filedocumented in this encounter Care Teams Director Hospice Operations Relationship Specialty Start Date End Date No Ref-Primary, Physician PCP - General 12/19/21 Shelbie Ackerman, Assigned Neuroscience 2 MD Provider [address] [place] [address] documented as of this encounter
--- OUTSIDE RECORDS SUMMARY | 2022-03-12 16:02 | XMS_ITS | Encounter Summary ---
:1970 Author Organization [place] Address [address] [place] [address] Care Team Providers Name Role Phone No Ref-Primary Primary Care Provider Encounter Details Date Type Department Care Team Description 12/23/2021 Travel Social History Tobacco Use Types Packs/Day Years Used Date Never Assessed Sex Assigned at Date Recorded Not on file COVID-19 Exposure Response Date Recorded In the last 10 days, have you been in contact with No / Unsu re 12/23/2021 8:37 PM CDT someone who was confirmed or suspected to have Coronavirus/COVID-19? documented as of this encounter Plan of Treatment Not on filedocumented as of this encounter Visit Diagnoses Not on filedocumented in this encounter Care Teams Blade Grader Operator Relationship Specialty Start Date End Date No Ref-Primary, Physician PCP - General 12/19/21 documented as of this encounter
--- OUTSIDE RECORDS SUMMARY | 2022-03-12 16:02 | XMS_ITS | Encounter Summary ---
:1970 Author Organization [place] Address [address] [place] [address] Care Team Providers Name Role Phone No Ref-Primary Primary Care Provider Reason for Visit Reason Comments *-*INCOMING RECORDS*-* Encounter Details Date Type Department Care Team Description 12/20/2021 Documentation Only [facility] Provider, Generic *-*INCOMING [facility] External Data RECORDS*-* Clinic [address] [place] [phone] Social History Tobacco Use Types Packs/Day Years Used Date Never Assessed Sex Assigned at Date Recorded Not on file COVID-19 Exposure Response Date Recorded In the last 10 days, have you been in contact Unable to asse ss 12/19/2021 3:54 PM CDT with someone who was confirmed or suspected to have Coronavirus/COVID-19? documented as of this encounter Progress Notes Ines Marmolejo MA - 12/20/2021 1:31 PM CDT Action December 20, 2021 1:31 PM ABT Action Taken Records updated in [facility], image request sent to [facility] and [facility] documented in this encounter Plan of Treatment Not on filedocumented as of this encounter Visit Diagnoses Not on filedocumented in this encounter Care Teams Interpreter Deaf Relationship Specialty Start Date End Date No Ref-Primary, Physician PCP - General 12/19/21 documented as of this encounter
--- OUTSIDE RECORDS SUMMARY | 2022-03-12 16:02 | XMS_ITS | Clinical Summary ---
:1970 Author Organization [facility] Address [address] [place] [id number] Care Team Providers Name Role Phone No Ref-Primary Primary Care Provider Keesha Ackerman MD Unavailable Allergies Active Allergy Reactions Severity Noted Date Comments Adhesive Tape Itching Low 11/30/2021 Lactose Rash Low 06/17/2019 Medications Medication Sig Dispensed Refills Start Date End Date Status vitamin B-12 Daily 0 Active (CYANOCOBALAMIN) 1000 MCG tablet levETIRAcetam (KEPPRA) 0 12/07/2021 Active 1000 MG tablet Vit-Fe Take 1 tablet by 0 Active Fumarate-FA ( mouth daily PLUS) 27-1 MG TABS TURMERIC PO 0 Active Active Problems Problem Noted Date Astrocytoma 12/29/2021 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, 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 Encounters Date Type Specialty Care Team Description 12/31/2021 Telephone Oncology Hattie Kelly Erroneous encounter-disre dann 12/31/2021 Orders Only Oncology Farhat Simpson [facility] 12/31/2021 Telephone Oncology Hattie Kelly Prior Auth - Medication; Erroneous encounter-disre dann 12/31/2021 Telephone Oncology Hattie Kelly Prior Auth - Medication (Temozolomide P A Approved) 12/25/2021 Lab Lab Astrocytoma (H) (Primary Dx) 12/24/2021 Tumor Conference Oncology 12/24/2021 Oncology Visit Oncology Shelibe Ackerman py-induced nausea and vomiting (Primary Dx); MD Keesha Astrocytoma (H ); High risk for c hemotherapy-induced infectious complication; Antineoplastic chemotherapy induced pancytopenia (H); Screening for v iral disease; High grade astr ocytoma of brain (H); Anaplastic astr ocytoma, IDH-wildtype (H) 12/24/2021 Travel 12/24/2021 PRE VISIT Oncology Shelbie Ackerman *-*INCOMING RECORDS*-* MD Keesha (Astrocytoma ( H) [C71.9]) 12/23/2021 Travel 12/20/2021 Documentation Only Oncology Provider, Generic *-*I NCOMING RECORDS*-* External Data 12/19/2021 Travel 12/19/2021 Documentation Only Oncology Unknown 12/19/2021 Transcribe Orders Oncology Shelbie Ackerman Nayeliy long (H) (Primary MD Keesha Dx) from Last 3 Months Social History Tobacco [...] Mass Index 34.61 12/24/2021 8:01 AM CDT Plan of Treatment Health Maintenance Due Date Last Done Comments ADVANCE CARE PLANNING 1970 ANNUAL REVIEW OF HM ORDERS 1970 CT COLONOGRAPHY 1970 FIT-DNA (Cologuard) 1970 FIT 1970 FLEX SIG 1970 PREVENTIVE CARE VISIT 1970 COLONOSCOPY 1980 COLORECTAL CANCER SCREENING 1980 HIV SCREENING 1985 HEPATITIS C SCREENING 1988 PAP 05/04/2015 05/04/2012 LIPID 2015 LUNG CANCER SCREENING 2020 ZOSTER IMMUNIZATION (1 of 2020 2) MAMMO SCREENING 07/30/2020 07/30/2019, 04/04/2017, 05/04/2012, Additional history exists PHQ-2 (once per calendar 08/25/2021 year) COVID-19 Vaccine (4 - 11/01/2021 07/04/2021, 10/10/2020, Booster for Pfizer series) 09/19/2020 INFLUENZA VACCINE (#1) 2022 06/29/2021, 06/11/2020, 06/17/2019, Additional history exists DTAP/TDAP/TD IMMUNIZATION 06/23/2030 06/23/2020, 01/04/2010 , (3 - Td or Tdap) 01/04/2003 HEPATITIS B IMMUNIZATION Aged Out 03/04/2011 No long er eligible based on patient 's age to complete this topic IPV IMMUNIZATION Aged Out No longer eligi ble based on patient 's age to complete this topic MENINGITIS IMMUNIZATION Aged Out No longe r eligible based on patient 's age to complete this topic Pneumococcal Vaccine: Aged Out No longer eligible Pediatrics (0 to 5 Years) based on patient's age and At-Risk Patients (6 to to co mplete this topic 64 Years) Procedures Procedure Name Priority Date/Time Associated Comments Diagnosis VERMILION MISCELLANEOUS Routine 12/25/2021 4:26 Astrocytoma (H) Re sults for this TEST PM CDT procedure are i n the results section. LABORATORY Routine 12/25/2021 4:26 Astrocytoma (H) Results for this MISCELLANEOUS ORDER PM CDT procedur e are in the results section. MGMT PROMOTER Routine 12/14/2021 3:28 Brain mass Results fo r this METHYLATION TUMOR PM CDT procedure are in the results section. GLIOMA PANEL FOCUSED Routine 12/14/2021 3:28 Brain mass Res ults for this NGS PANEL PM CDT procedure are i n the results section. from Last 3 Months Results [facility]; NONCP (Laboratory Miscellaneous Order) (12/25/2021 4:26 PM CDT) Component Value Ref Test Analysis Performed At [facility] gist Range Method Time Signature See Scanned Specimen JANNETH 12/26/2021 [facility] Result received. 12:45 PM Reordered and CDT sent to performing laboratory. Report to follow up on completion. Performing [facility] 12/26/2021 SPECIALTY Laboratory Laboratories 12:45 PM LABS CDT Test Name NEURO ONCOLOGY JANNETH 12/26/2021 [facility] EXPANDED GENE 12:45 PM PANEL WITH CDT REARRANGEMENT TUMOR Test Code NONCP [facility] 12/26/2021 [facility] SPECIALTY 12:45 PM LABS CDT Specimen Anatomical Collection Method Collection Time Receive d Time (Source) Location / / Volume Laterality Fixed Tissue TOPOGRAPHY UNKNOWN Non-blood 12/25/2021 4:26 12/25 / Unknown Collection / PM CDT 4:26 PM CDT Unknown Lamonte Redmond MD LAB - BLOOD ORDERABLES Performing Organization Address City/State/ZIP Code Phon e Number [facility] [address] [phone] Lab [address] [facility] [address], Room 3-580 SPECIALTY LABS [facility] [place], [place] [phone] [address] [facility] [id number] [address] Building, Room 3-580 NONCP: [place] Miscellaneous Test (12/25/2021 4:26 PM CDT) athologist Signature Otero Result SEE NOTE 01/11/2022 [facility] 4:41 PM CDT LABS Comment: Test ?Result ?Flag ??Unit ??RefValue Neuro-Onc Expanded Panel ??Result ?SEE NOTE ?Provided diagnosis: astrocytoma, a t least CHEMICAL SUPERVISOR WHO grade 3 ?The following CLINICALLY RELEVANT VARIANTS were identified: ?Gene: TERT ?DNA Change: c.-124C>T (also known as C228T) ?Gene: CHEK2 ?DNA Change: c.1100del ?Amino Acid Change: p.K341Sig*15 (T ha701Enubg*15) ?Gene: LZTR1 ?DNA Change: c.27dup ?Amino Acid Change: p.Q10Afs*24 (Gl q85Fzbrt*24) ?Gene: SETD2 ?DNA Change: c.1748_1751del ?Amino Acid Change: p.J699Diy*17 (L mb517Tqjwh*17) ?The following VARIANTS OF UNCERTAI N SIGNIFICANCE were ?identified: ?Gene: CIC ?DNA Change: c.4627A>G ?Amino Acid Change: p.M6158I (Thr15 43Ala) ?Gene: ARID2 ?DNA Change: c.3202C>T ?Amino Acid Change: p.U4183M (Arg10 68Cys) ?Gene: GLI2 ?DNA Change: c.4464G>T ?Amino Acid Change: p.I2588Y (Leu14 88Phe) ?NO reportable SEQUENCE VARIANTS we re identified involving ?the remaining tested genes, includ ing IDH1, IDH2, H3-3A ?(previously H3F3A), ATRX, and TP53 . ?FUSION testing FAILED after multip le attempts due to ?insufficient amplifiable RNA. Plea se send additional ?formalin fixed material if testing is still desired. Refer ?to [email or web address] (Otero test I D NONCP) or call [...] specifically target TERT muta tions. ?REFERENCES ?1. cancer-beta.jaden.ac.uk/Cloudscalingic ; Nucleic Acids Res. 2016 ?Aug 28;45(D1):N846-E021 (PMID 21366 578) ?2. Proc Natl Acad Sci U S A. Nov;110(15):6021-6 ?(PMID 53664023) ?3. Acta Neuropathol. Jul 2013;126( 6):907-15 (PMID 61423980) ?4. Acta Neuropathol. Oct 24 2016; (PMID 68330471) ?5. Mol Cancer Res. Nov 2015;14(4): 315-23 (PMID 21968997) ?6. Science. Oct 16 2012;339(9041): 959-61 (PMID 88449706) ?7. Science. Oct 16 2012;339(2851): 957-9 (PMID 24047853) ?8. Eur J Cancer. December 2014;51(8):96 9-76 (PMID 22221495) ?9. Cell. Sep 21 2015;164(3):550-63 (PMID 98148727) ?10. Acta Neuropathol. Jul 2013;126 (6):931-7 (PMID 70423869) ?11. Cell. Jun 03 2013;155(2):462-7 7 (PMID 71079625) ?12. N Engl J Med. Feb 16 2015;372( 26):2481-98 (PMID ?82383132) ?13. N Engl J Med. Feb 16 2015;372( 26):2499-508 (PMID ?03125450) ?14. Acta Neuropathol. Jan 2017;133 (6):1001-16 (PMID ?29218438) ?15. Acta Neuropathol. May 20 2018; (PMID 38852176) ?ASSOCIATIONS BETWEEN CHEK2 MUTATIO NS AND DIFFUSE GLIOMAS ?Estimated somatic mutation frequen cy data for CHEK2 gene in ?diffuse gliomas are not available (1). CHEK2 encodes a ?serine/threonine-protein kinase th at functions as a ?transducer kinase required for DNA damage checkpoint ?response (2, 3). CHEK2 functions a s a tumor suppressor and ?inactivation through ijpp-kk-jrjdk ion mutations results in ?genome instability and contributes to tumorigenesis (4, 5). ?Germline (i.e. constitutional) JEIMY K2 mutations are ?associated with increased risk for development of some ?tumor types including breast, pros barrett and colorectal ?cancer (6). The p.K934Wem*15 (c.11 00del) alteration is ?predicted to result [...] note, the variant frequency at which the p.Y603Erw*15 ?(c.1100del) alteration was identif ied raises the ?possibility that this mutation may be germline rather than ?somatic in origin. This test does not distinguish between ?germline and somatic alterations. Consider follow-up ?germline testing on a blood sample in conjunction with ?genetic counseling as, if germline in origin, the ?p.P023Ivh*15 (c.1100del) mutation may indicate increased ?risk for certain tumor types and w arrant appropriate ?screening procedures and/or prophy lactic measure. ?Currently, there are no known clin ically approved therapies ?that specifically target CHEK2 mut ations. ?REFERENCES ?1. cbioportal.org (Version 1.5.1); Cancer discov. ?2011;2(5):401-4 (PMID 68764061); S ci Signal. ?2012;6(269):pl1 (PMID 05068521) ?2. Zoë Rev Cancer. Jul 2007;7(12): 925-36 (PMID 66349768) ?3. J Mol Cell Biol. Jul 2014;6(6): 442-57 (PMID 71779080) ?4. Zoë Cell Biol. December 2009;12(5):4 92-9 (PMID 79291130) ?5. Cancer Cell. Aug 07 2010;18(6): 619-29 (PMID 94606853) ?6. Am J Hum Tori. Jul 2004;75(6): 1131-5 (PMID 55328612) ?7. Cancer Res. May 09 2006;66(18): 3965-70 (PMID 82026046) ?8. cancer-beta.jaden.ac.uk/cosmic ; Nucleic Acids Res. 2016 ?Aug 28;45(D1):Q028-H886 (PMID 96503 578) ?9. Am J Hum Tori. Mar 2002;71(2): 432-8 (PMID 03653948) ?10. Acta Neuropathol. December 2012;125 (5):659-69 (PMID 82833548) ?ASSOCIATIONS BETWEEN LZTR1 MUTATIO NS AND DIFFUSE [...] specifically target LZTR1 mut ations. ?REFERENCES ?1. cancer-beta.jaden.ac.uk/AudiencePoint ; Nucleic Acids Res. 2016 ?Aug 28;45(D1):M796-Q348 (PMID 80974 578) ?2. cbioportal.org (Version 1.5.1); Cancer discov. ?2012;2(5):401-4 (PMID 64637870); S ci Signal. ?2012;6(269):pl1 (PMID 05078115) ?3. J Biol Chem. Oct 18 2006;281(8) :5068-61 (PMID 92878711) ?4. Zoë Tori. May 2013;45(10):1141 -9 (PMID 16952281) ?ASSOCIATIONS BETWEEN SETD2 MUTATIO NS AND DIFFUSE GLIOMAS ?Approximately 1.5-6% of individual s with a diffuse glioma ?have a somatic mutation in the SET D2 gene (1-3). SETD2 ?encodes a methyltransferase that t rimethylates K36 of ?histone H3 (W0L03ho1) as well as o ther proteins such as ?tubulin (4-6). SETD2 acts as a andrews or suppressor through ?creation of the O3Y93tt4 micheal, whi ch is involved in ?chromatin structure and transcript ion regulation, and DNA ?mismatch (D9D52ws2 micheal is require d for MSH6 recruitment to ?the MutS alpha complex) and double -strand break repair ?(7-10). Functional loss of SETD2 r esults in decreased ?S2U41gb2 and genomic instability, contributing to ?tumorigenesis (11, [...] ?1. [email or web address]://cancer.jaden.ac.uk/cos janneth; Nucleic Acids Res. ?2016Aug 28;45(D1):L874-J687 (PMID 94552694) ?2. cbioportal.org (Version 1.5.1); Cancer discov. ?2011;2(5):401-4 (PMID 83766495); S ci Signal. ?2012;6(269):pl1 (PMID 20407215) ?3. Acta Neuropathol. December 2012;125( 5):659-69 (PMID 53714689) ?4. EMBO J. Sep 16 2007;27(2):406-2 0 (PMID 69999103) ?5. Cell. Apr 04 2016;166(4):950-62 (PMID 63930419) ?6. Cell. Mar 20 2017;170(3):492-50 6 e14 (PMID 63581297) ?7. Ozë Rev Mol Cell Biol. Sep 16;13(2):115-26 (PMID ?42075517) ?8. Cell. Dec 17 2012;153(3):590-60 0 (PMID 16037071) ?9. eLife. Dec 28 2013;3:d16036 (PMI D 42779914) ?10. Cell reports. Feb 17 2014;7(6) :2006-18 (PMID 89780221) ?11. Zoë Tori. Oct 2013;46(3):287- 93 (PMID 38427745) ?12. Mol Cancer Res. Jul 2016;14(12 ):1173-5 (PMID 24408408) ?13. N Engl J Med. Feb 16 2015;372( 17):2483-98 (PMID ?20568482) ?VARIANT(S) OF UNCERTAIN SIGNIFICAN CE ?One or [...] AKT1 , AKT2, AKT3, APC, ?ARID1A, ARID2, LILLY, ATRX, BAP1, BC OR, BCORL1, BRAF, CBL, ?CDK6, CDKN2A, CDKN2B, CDKN2C, CHEK 2, CIC, CTDNEP1, CTNNB1, ?DAXX, DDX3X, DNMT3A, EGFR, EZH2, F GFR1, FGFR2, FGFR3, ?FUBP1, GLI2, GLI3, GNA11, GNAQ, GN , GPS2, H3F3A, ?LYWH5T7Q, DYDP8U2O, IDH1, IDH2, JA K2, KDM5A, KDM5C, KDM6A, ?KLF4, KMT2B (MLL4), KMT2C (MLL3), KMT2D (MLL2), KRAS, LDB1, ?LRP1B, LZTR1, MAP2K1, MDM2, MLH1, MSH2, MSH3, MSH6, MYB, ?MYBL1, MYC, MYCN, NF1, NF2, NOTCH1 , NOTCH2, NRAS, PARP1, ?PDGFRA, IXW4T5I, PIK3CA, PIK3R1, P IK3R2, POLE, POLR2A, ?POT1, PPM1D, ZRZMW2J, PTCH1, PTCH2 , PTEN, PTPN11, PTPRD, ?QKI, [...] ATG7, ?BCAN, BEND2, BIRC5, BRAF, BTBD1, C 46xql47, B8ppv00, CLCN6, ?CLIP2, CXXC5, DDX31, DIP2C, EGFR, ELAVL3, ESR1, ETV6, ?EWSR1, CIZ595Q, JZY522V, FGFR1, FG FR3, FLI1, FOXR2, FXR1, ?FYCO1, GFI1, GFI1B, GLI1, GNAI1, J PX, EGOS4862, LSZ970595, ?MACF1, MAMLD1, MET, MKRN1, MMP16, MN1, MST1R, MYB, MYBL1, ?MYC, NAB2, NACC2, NAV1, NDRG1, RUSS FE, NFASC, NRF1, NTRK1, ?NTRK2, NTRK3, PCDHGA1, PCSK5, PDGF RA, PKD1, PRKCA, PTPRZ1, ?PVT1, QKI, RAF1, EFFIE, RELA, RNF13 0, SEPT14, JTK70D1, ?SLIT1, SRGAP3, JY1VDH9, STAT6, TAC C1, TACC3, TFG, TPM3, ?UBE2J2, VCL, WHSC1, and YAP1. ?Mutation nomenclature is based on build GRCh37 (hg19). For ?details about gene reference trans cripts (RefSeq accession ?numbers), specific targeted region s of each gene, and ?additional information about this test, see ?www.[employer].CICCWORLD (Test ID NO NCP). ?CLINICAL CORRELATIONS ?Test results should be interpreted in context of clinical ?findings, tumor sampling, histopat hology, and other ?laboratory data. If results obtain ed do not match other ?clinical or laboratory findings, p lease contact the ?laboratory for possible interpreta tion. [...] un ique samples (100% ?specificity compared to [employer] l microarray) resulting ?in an overall concordance [...] base d on updated clinical ?relevance. See www.[employer]. CICCWORLD (Test ID NONCP) for ?the most up [...] advanced ?2) [facility]: www.albion.[facility]/clinical-trials/ ?3) National Cancer [place]: ?www.cancer.gov/clinicaltrials/sear ch ?REFERENCE TRANSCRIPTS ?Sequence variant nomenclature is b ased on the following ?RefSeq accession numbers (build GR Ch37 (hg19)):ARID2 ?[id number], CHEK2 NM_[id number], CIC NM _[id number], GLI2 NM_[id number], ?LZTR1 NM_[id number], SETD2 NM_[id number] a nd TERT [id number]. ??Specimen ?Tissue, Tumor ?Tissue ID ? [id number] ?Released By ? SEE NOTE ?RESULT: Matias Sandoval M.D., Ph.D. ?Test Performed by: ?[facility] ?[address] [place] [address] ?Horticulture Instructor: Chintan Campbell Ph.D.; IA# [id number] Specimen Anatomical Collection Method Collection Time Receive d Time (Source) Location / / Volume Laterality Fixed Tissue TOPOGRAPHY UNKNOWN Non-blood 12/25/2021 4:26 12/25 / Unknown Collection / PM CDT 4:26 PM CDT Unknown Lamonte Redmond MD LAB - BLOOD ORDERABLES Performing Organization Address City/State/ZIP Code Phon e Number [facility] [place] [address] [address] [place] [address] LABS [address] [place] [address], [facility] MGMT Promoter Methylation Tumor (12/14/2021 3:28 PM CDT) Component Value Ref Test Analysis Performed At [facility] Range Method Time Signature RESULTS MGMT promoter 12/14/2021 [facility] MOLECULAR methylation: 3:28 PM DIAGNOSTICS NEGATIVE CDT (LDL) METHODOLOGY Tumor tissue is macroenriche d from paraffin slides, DNA is extracted, quantitated, and treated with bisulfite. Quantitative PCR amplification of MGMT using methylation specific primers is compared to 12/14/2021 [facility] e internal control COL2A1 in the patient's sample and a known methylated DNA control. Quantification of methylated MGMT is accomplished through generation of a standard curve and calculation of a Percen 3:28 PM DIAGNOSTICS t Methylation Ratio (PMR) fo llowing the published MethyLight procedure. PMR values greater than or equal to 2 are interpreted as positive, PMR values of 0.1-1.9 are interpreted as low positive, and PMR = 0 is interpreted as negative. CDT (LDL) Limitations: The test is designed to dete ct methylation only in the areas covered by the primers utilized in this assay. Adjacent genomic regions may contain abnormalities that would not be detected. Tumor cellular ity, intra-tumoral heterogen eity, and the quality of extracted DNA from FFPE samples may impact the accuracy of results. The dynamic range of this assay can detect a minimum relative fraction of 3% meth ylated alleles in the backgr ound of 97% unmethylated alleles; however, a minimum of 25% tumor cells by morphology is recommended to ensure clinical accuracy. Negative results do not rule out the presenc e of methylation at other sites within the MGMT CpG island. INTERPRETATION This patient's sample is Negative for MG MT promoter methylation. 12/14/2021 [facility] (Electronically signed by: MARY JO PERALES MD December 25, 2021 2:59 PM) 3:28 PM DIAGNOSTICS CDT (LDL) COMMENTS No evidence of MGMT promoter methylation was detected in this specimen. Patients with glioblastomas harboring unmethylated MGMT have a worse overall prognosis and do not appear to derive significant khadar 12/14/2021 [facility] efit from alkylating chemoth erapy regimens (such as temozolomide). Correlation with morphology, laboratory and clinical findings is recommended. The results of this assay should not be used as the only 3:28 PM DIAGNOSTICS criteria for selection of alkylating chemotherapy. CDT (LDL) References: 1. Benny LARA, Amber AC, Nestor regan T, et al. MGMT gene silencing and benefit from temozolomide in glioblastoma. N Engl J Med. 2005;352(10):997-1003. 2. Lisandra R, Benny LARA, Manjit Arana P, et al. Effects of radiotherapy with concomitant and adjuvant temozolomide versus radiotherapy alone on survival in glioblastoma in a randomized phase III study: 5-year eliezer lysis of the EORTC-NCIC trial. Lancet Oncol. 2009;10(5):459- 66. 3. Daiana A, Cony BH, Farrukh C, et al. Temozolomide versus standard 6- week radiotherapy versus hypofractionated radiotherapy in patients older than 60 years with glioblastoma: the [place] randomiz ed, phase 3 trial. Lancet Oncol. 2012;13(9):916-26. 4. Soy C, Gregory X, William mckeon G, et al. IDH1 or IDH2 mutations predict longer survival and response to temozolomide in low-grade gliomas. Neurology. 2010;75(17):1560-6. 5. Shirley George, José A, Pedro De La Cruz, et al. Comparative assessment of 5 methods (methylation-specific polymerase chain reaction, MethyLight, pyrosequencing, methylation-sensitive high-resolution me lting, and immunohistochemis try) to analyze R4-uirztapqvvkct-NXO-methyltranferase in a series of 100 glioblastoma patients. Cancer. 2012;118(17):4860-11. DISCLAIMER This test was developed and its performance characteristics determined by [facility]. It has not been cleared or approved by the FDA. The laboratory is regulated 12/14/2021 [facility] under CLIA as qualified to perform high-complexity testing. This test is used for clinical purposes. It should not be regarded as investigational or for research. 3:28 PM DIAGNOSTICS CDT (LDL) A resident/fellow in an accr edited training program was involved in the selection of testing, review of laboratory data, and/or interpretation of this case. I, as the senior physician, attest that I: ( i) confirmed appropriate watson ting, (ii) examined the relevant raw data for the specimen(s); and (iii) rendered or confirmed the interpretation(s). Specimen Tissue: Fixed [id number], :Brain, left mass, CASE FROM [facility] [place], [place] [id number], OBTAINED 12/05/2021 12/14/2021 MOLECULAR Description [id number] 3:28 PM DIAGNOSTICS CDT (LDL) Specimen Anatomical Collection Method Collection Time Receive d Time (Source) Location / / Volume Laterality Fixed Tissue Non-blood 12/14/2021 3:28 12/17/2021 Collection / PM CDT 12:03 PM CDT Unknown Renetta Warner MD LAB - GENOMICS Performing Organization Address City/State/ZIP Code Phon e Number MOLECULAR [place]ST[place] [address] (LDL) Diagnostics [address] [facility] [address] Building, Room 3-580 Glioma Panel Focused NGS Panel (12/14/2021 3:28 PM CDT) Component Value Ref Test Analysis Performed At [facility] Range Method Time Signature Significant Detected Alterations of Known or Potential Pathogenici ty: None 12/14/2021 MOLECULAR Results 3:28 PM DIAGNOSTICS Detected Alterations of Uncertain Significance: None CDT (LDL) Genes with No Detected Clini mirna Significant Alterations: BRAF, IDH1, IDH2, PTEN, TP53 Interpretation No mutations were identified in the analyzed genes (see panel list above). 12/14/2021 MOLECULAR 3:28 PM DIAGNOSTICS Wildtype status for IDH1/2 i n grade 2 or grade 3 diffuse glioma is a negative prognostic factor for overall survival [1]. CDT (LDL) Concurrent MGMT methylation analysis is negative for this sample (please see [id number] for full report and interpretation). Correlation with clinical in formation, morphologic findings, and other diagnostic tests is indicated. References: 1. Terell DJ, Erick RG, Ranjan KD, et al N Engl J Med. 2015;372(93):2484-98. --------- Test Details 12/14/2021 MOLECULAR Methodology 3:28 PM DIAGNOSTICS CDT (LDL) Genomic DNA is extracted fro m the sample and sequencing libraries are prepared using an amplicon-based target enrichment method using a DIY systems or a custom developed low-inpu t PCR method. The enriched D NA libraries are sequenced on an Illumina MiSeq instrument, and FASTQ files are processed through a custom designed bioinformatics pipeline [based on methods described in Miguel joyner et al. Genome Med. 2015 do i: 10.1186/q58713-193-8419-8 and Henzler et al. Eloise. Transl. Med. 2018 doi: 10.22058/lilly.2018.05.07]. Amplicons with less than 500X minimum coverage are flagged for limited a nalytic performance. Variant call files (vcf) are filtered to remove calls with variant allele fractions (VAF) less than thresholds defined for single nucleotide variants (5-10%) and insertion/deletion variants (1-5%). Clinically relevant mutations from this filtered variant list are annotated by a pathologist with [employer] software and reported. The assay bed file and 5% SNV hotspot list are heidi ilable upon request. The eliezer lytic accuracy of the assay is 99%. Sequenced regions of the clinically ordered gene set are identified in the table below. Gene(NM Reference): Exons covered BRAF (NM_004333.4): 11,12,14 ,15; IDH1 (NM_005896.2): 4; IDH2 (NM_002168.2): 4,5; PTEN (NM_000314.4): 5-8; TP53 (NM_000546.5): 4-11 Less than 500X coverage was achieved in portions of the following exons; additional mutations in these regions cannot be entirely excluded: None --------- Limitations --------- This amplicon-based NGS assa y is designed to detect recurring, clinically relevant mutations in selected exons of the tested genes. Sequence variants occurring within primer binding sequences may cause allele dropout and not be de tected. The validated allele fraction thresholds for reporting positive results range from 1% to 10% dependent on the type of mutation as follows: 5% for single nucleotide va riants within defined hotspo ts (list available upon request); 10% for all other single nucleotide variants; 1% for insertiondeletion mutations greater than 3bp, and 5% for insertion-deletion mutations 3 bp or smaller. Therefore, e tumor cell population must comprise at least 10- 20% of the submitted specimen. Specimens with borderline tumor cellularity may lead to false negative results. Caution is ad vised for the interpretation of negative results, and correlation with morphology and other laboratory results is recommended to ensure adequate representation of the cell population of interest. This a ssay is not designed to dete ct large-scale genomic rearrangement, gene deletion, or gene amplification. Such somatic alterations may be relevant and correlation with known genomic characteristics for is patient's specific tumor is recommended. Benign or likely benign variants (including germline polymorphisms) are not reported. Caution is indicated for clinical interpretation of reported variant all spring fractions (VAF); numerou s pre-analytic and analytic factors can impact the observed VAF. This assay is not calibrated to be quantitative, and VAFs can vary +/- 10% in replicate analyses. --------- Disclaimer --------- This test was developed and its performance characteristics determined by the [facility], Molecular Diagnostics Laboratory. It has not been cleared or approved by the FDA. [facility] laboratory is regulated un john CLIA as qualified to perform high-complexity testing. This test is used for clinical purposes. It should not be regarded as investigational or for research. A resident/fellow in an accr edited training program was involved in the selection of testing, review of laboratory data, and/or interpretation of this case. I, as the senior physician, attest that I: (i ) confirmed appropriate test ing, (ii) examined the relevant raw data for the specimen(s); and (iii) rendered or confirmed the interpretation(s). --------- [employer]mex Systems International[employer] Disclaimer --------- This report was produced [employer] software licensed by [employer] [place]. [employer] [place] software is designed to be used in clinical applications solely as a tool to enhance medical utility and improve operatio nal efficiency. The use of [employer] software is not a substitute for medical judgment and [employer] in no way holds itself out as having or providing independent medical judgment or diagnostic services. [employer] [place] is n ot liable with respect to any treatment or diagnosis made in connection with this report. [employer] Rules Version: rules-0014 [employer] [place] Application Version: [id number] 17-48 --------- Electronic Signature --------- Electronically signed/cosigned by: Clayton Hoover MD 01/02/22 Specimen Tissue: Fixed [id number] A2, :Brain, left mass, CASE FROM [facility], [place], [place] [id number], OBTAINED 12/05/2021 12/14/2021 MOLECULAR Description [id number] [id number] 3:28 PM DIAGNOSTICS CDT (LDL) Specimen Anatomical Collection Method Collection Time Receive d Time (Source) Location / / Volume Laterality Fixed Tissue TOPOGRAPHY UNKNOWN Non-blood 12/14/2021 3:28 12/17 / Unknown Collection / PM CDT 12:02 PM CDT Unknown Renetta Warner MD LAB - GENOMICS Performing Organization Address City/State/ZIP Code Phon e Number MOLECULAR [place] [address] (LDL) Diagnostics [address] [facility] [address], Room 3-580 from Last 3 Months Insurance Payer Benefit Plan / Subscriber ID Effective Dates Phone Addre ss Type Group BCBS BCBS OF [place] [id number] 2019-[employer] [phone] [address] [address] Indemnity t 0 [place] [address] (Work) [id number] Care Teams Contracts Analyst Relationship Specialty Start Date End Date No Ref-Primary, Physician PCP - General 12/19/21 Shelbie Ackerman, Assigned Neuroscience [address] [place] [address]
--- OUTSIDE RECORDS SUMMARY | 2022-03-12 16:02 | XMS_ITS | Encounter Summary ---
:1970 Author Organization [facility] Address [address] [place] [address] Care Team Providers Name Role Phone No Ref-Primary Primary Care Provider Keesha Ackerman MD Unavailable Encounter Details Date Type Department Care Team Description [facility]/31[facility] [address] [phone] Social History Tobacco Use Types [...] on filedocumented in this encounter Care Teams Powderman Relationship Specialty Start Date End Date No Ref-Primary, Physician PCP - General 12/19/21 Shelbie Ackerman, Assigned Neuroscience 2 MD Provider [address] [place] [address] documented as of this encounter
--- OUTSIDE RECORDS SUMMARY | 2022-03-12 16:02 | XMS_ITS | Encounter Summary ---
:1970 Author Organization [place] Address [address] [place] [address] Care Team Providers Name Role Phone Unavailable Primary Care Provider Unavailable Encounter Details Date Type Department Care Team Description 12/07/2021 Lab [facility] Brain mass (Primary Dx) Laboratory [address] [place], [place] [phone] Social History Tobacco Use Types Packs/Day Years Used Date Never Assessed Sex Assigned at Date Recorded Not on file documented as of this encounter Plan of Treatment Not on filedocumented as of this encounter Procedures Procedure Name Priority Date/Time Associated Comments Diagnosis MGMT PROMOTER Routine 12/14/2021 3:28 Brain mass Results fo r this METHYLATION TUMOR PM CDT procedure are in the results section. GLIOMA PANEL FOCUSED Routine 12/14/2021 3:28 Brain mass Res ults for this NGS PANEL PM CDT procedure are i n the results section. PATHOLOGY CONSULT Routine 12/07/2021 2:42 Brain mass Result s for this PM CDT procedure are i n the results section. documented in this encounter Results MGMT Promoter Methylation Tumor (12/14/2021 3:28 PM CDT) Component Value Ref Test Analysis Performed At [facility] Range Method Time Signature RESULTS MGMT promoter 12/14/2021 UM MOLECULAR methylation: 3:28 PM DIAGNOSTICS NEGATIVE CDT (LDL) METHODOLOGY Tumor tissue is macroenriche d from paraffin slides, DNA is extracted, quantitated, and treated with bisulfite. Quantitative PCR amplification of MGMT using methylation specific primers is compared to th 12/14/2021 UM MOLECULAR e internal control COL2A1 [...] Oncol. 2009;10(5):459- 66. 3. Daiana A, Cony CLAY, Farrukh C, et al. Temozolomide versus standard 6- week radiotherapy versus hypofractionated radiotherapy in patients older than 60 years with glioblastoma: the [place] randomiz ed, phase 3 trial. Lancet Oncol. 2012;13(9):916-26. 4. Soy C, Gregory X, William mckeon G, et al. IDH1 or IDH2 mutations predict longer survival and response to temozolomide in low-grade gliomas. Neurology. 2010;75(17):1560-6. 5. Shirley V, José A, Pedro De La Cruz, et al. Comparative assessment of 5 methods (methylation-specific polymerase chain reaction, MethyLight, pyrosequencing, methylation-sensitive high-resolution me lting, and immunohistochemis try) to analyze U1-odctbxlvygffb-JNJ-methyltranferase in a series of 100 glioblastoma patients. Cancer. 2012;118(17):4201-11. DISCLAIMER This test was developed and its performance characteristics determined by [facility]. It has not been cleared or approved by the FDA. The laboratory is regulated 12/14/2021 [employer]Comm under CLIA as qualified to perform high-complexity [...] or confirmed the interpretation(s). Specimen Tissue: Fixed [id number] [id number], :Brain, left mass, CASE FROM [facility], [place], [place] [id number], OBTAINED 12/05/2021 12/14/2021 MOLECULAR Description [id number] 3:28 PM DIAGNOSTICS CDT (LDL) Specimen Anatomical Collection Method Collection Time Receive d Time (Source) Location / / Volume Laterality Fixed Tissue Non-blood 12/14/2021 3:28 12/17/2021 Collection / PM CDT 12:03 PM CDT Unknown Renetta Warner MD LAB - GENOMICS Performing Organization Address City/State/ZIP Code Phon e Number MOLECULAR [place] [address] (LDL) Diagnostics [address] [facility], Room 3-580 Glioma Panel Focused NGS Panel (12/14/2021 3:28 PM CDT) Component Value Ref Test Analysis Performed At [facility] gist Range Method Time Signature Significant Detected Alterations of Known or Potential Pathogenici ty: None 12/14/2021 UM MOLECULAR Results 3:28 PM DIAGNOSTICS Detected Alterations of Uncertain Significance: None CDT (LDL) Genes with No Detected Clini mirna Significant Alterations: BRAF, IDH1, IDH2, PTEN, TP53 Interpretation No mutations were identified in the analyzed genes (see panel list above). 12/14/2021 UM MOLECULAR 3:28 PM DIAGNOSTICS Wildtype status for IDH1/2 i n grade 2 or grade 3 diffuse glioma is a negative prognostic factor for overall survival [1]. CDT (LDL) Concurrent MGMT methylation analysis is negative for this sample (please see [id number] for full report and interpretation). Correlation with clinical in formation, morphologic findings, and other diagnostic tests is indicated. References: 1. Terell DJ, Erick RG, Ranjan KD, et al N Engl J Med. 2015;372(26):2481-98. --------- Test Details 12/14/2021 UM MOLECULAR Methodology 3:28 PM DIAGNOSTICS CDT (LDL) Genomic DNA is extracted fro m the sample and sequencing libraries are prepared using an amplicon-based target enrichment method using a [employer] systems or a custom developed low-inpu t PCR method. The enriched D NA libraries are sequenced on an Illumina MiSeq instrument, and FASTQ files are processed through a custom designed bioinformatics pipeline [based on methods described in Miguel joyner et al. Genome Med. 2015 do i: 10.1186/y06891-321-1585-6 and Slim et al. Eloise. Transl. Med. 2018 doi: 10.26802/lilly.2018.05.07]. Amplicons with less than 500X minimum coverage are flagged for limited a nalytic performance. Variant call files (vcf) are filtered to remove calls with variant allele fractions (VAF) less than thresholds defined for single nucleotide variants (5-10%) and insertion/deletion variants (1-5%). Clinically relevant mutations from this filtered variant list are annotated by a pathologist with GenAdviesmanager.nllogy software and reported. The assay bed file [...] its performance characteristics determined by the [facility], Molecular Diagnostics Laboratory. It has not been cleared or approved by the FDA. [facility] laboratory is regulated un john CLIA [...] (iii) rendered or confirmed the interpretation(s). --------- [employer] Disclaimer --------- This report was produced [employer] software licensed by [employer]. [employer] software is designed to be used in clinical applications solely as a tool to enhance medical utility and improve operatio nal efficiency. The use of Mediasmart software is not a substitute for medical judgment and [employer] in no way holds itself out as having or providing independent medical judgment or diagnostic services. [employer] is n ot liable with respect to any treatment or diagnosis made in connection with this report. [employer] Rules Version: rules-0014 [employer] Application Version: [id number] 17-48 --------- Electronic Signature --------- Electronically signed/cosigned by: Clayton Hoover MD 01/02/22 Specimen Tissue: Fixed [id number] [id number], :Brain, left mass, CASE FROM [place], [place] [id number], OBTAINED 12/05/2021 12/14/2021 MOLECULAR Description [id number] [id number] 3:28 PM DIAGNOSTICS CDT (LDL) Specimen Anatomical Collection Method Collection Time Receive d Time (Source) Location / / Volume Laterality Fixed Tissue TOPOGRAPHY UNKNOWN Non-blood 12/14/2021 3:28 12/17 / Unknown Collection / PM CDT 12:02 PM CDT Unknown Renetta Warner MD LAB - GENOMICS Performing Organization Address City/State/ZIP Code Phon e Number MOLECULAR [place] [address] (LDL) Diagnostics [address] [facility], Room 3-580 (ABNORMAL) Pathology Consult (12/07/2021 2:42 PM CDT) Component Value Ref Test Analysis Performed Pathologis t Range Method Time At Signature Case Report Consult Report ?Case: [id number] ? 02/04/2022 Authorizing Provider: ??Renetta Peralta MD ?Collected: ? 12/07/2021 02:42 PM ? 11:48 AM SPECIA LTY Ordering Location: ? [facility] ? Received: ?12/07/2021 02:43 PM ? CDT LABS ? [facility] ? Pathologist: ? Lamonte Redmond MD ? Specimen: ?Consult Slide , [id number] ? 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 11:48 AM SPECIALTY electronically CDT LABS signed by Lamonte Redmond MD on 02/05/20 at 11:47 AM Addendum NGS sequencing did 02/04/2022 Addendum NOT detect any IDH1 11:48 AM SPECIALTY electronically and IDH2 mutations, CDT LABS signed by Nyla, thus the tumor is IDH Lamonte Muhammad MD wildtype. Further on 01/07/2022 at molecular testing is 8:55 AM pending for the final grading of the tumor. MGMT gene methylation is NEGATIVE. Final CASE FROM [place], [place] ([id number], OBTAINED 12/05/2021): 02/04/2022 Electr onically Diagnosis A-B. 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 See comment. CDT LABS Lamonte Muhammad MD on 12/15/19 at 1:49 PM Comment Although the 02/04/2022 immunostain for the 11:48 AM SPECIALTY most common IDH1 CDT LABS R132H mutation is negative, given the patient's age is younger than 55 years old, NGS sequencing has been initiated to confirm the tumor is IDH wildtype. For IDH-wildtype diffuse astrocytoma, WHO grade 3 is only a provisional grading. Molecular testing for TERT promoter mutation, EGFR amplification, +7/-10 chromosome copy number changes are strongly recommended, in fact necessary, for appropriate grading of the tumor. MGMT gene methylation results will be reported in an addendum. Original Case [id number] 02/04/2022 UM ID 11:48 AM SPECIALTY CDT LABS Material 5 slides 02/04/2022 UM Submitted 11:48 AM SPECIALTY CDT LABS Clinical The patient is a 51-year-old female 01/23 UM Information 11:48 AM SPECIALTY CDT LABS Gross Received from [facility] in [place], [place] are 5 stained slides labeled [id number] (obtained 12/05/2021), and copies of the referring pathologist's reports with patient identifying information. All slides are returned. 02/04/2022 UM Description 11:48 AM SPECIALTY CDT LABS Microscopic Histologic sections 02/04/2022 UM Description show an infiltrating 11:48 AM SPECIAL TY glioma with brisk CDT LABS mitotic activity. No microvascular proliferation or necrosis is identified. Immunohistochemical stains performed on block #B1 show the neoplastic cells are positive for OLIG2, ATRX (retained); negative for IDH1 R132H. Immunostains performed at [facility] show the neoplastic cells are positive for p53 (scattered) and the proliferation index ki-67 is moderately elevated, estimated at 20-30%. Disclaimer Analyte Specific Reagents (A SRs) are used in many laboratory tests necessary for standard medical care and generally do not require FDA approval. This test was developed and its performance characterist 02/04/2022 ics determined by [facility] [place]. It has not been cleared or approved by the U.S. Food and Drug Administration. [facility] are certified for the p 11:48 A M SPECIALTY erformance of high-complexit y clinical testing under the Clinical Laboratory Improvement Amendments of 1988 (CLIA), and in keeping with the certification requirements, the laboratory has verified this t CDT LABS est's accuracy, precision and/or validity of the method. MCRS Yes (A) N/A 02/04/2022 UM 11:48 AM SPECIALTY CDT LABS Performing The technical 02/04/2022 UM Labs component of this 11:48 AM SPECIALTY testing was completed CDT LABS at [facility] Specimen Anatomical Collection Method Collection Time Receive d Time (Source) Location / / Volume Laterality Slides SLIDE / Unknown 12/07/2021 2:42 12/08/19 22 PM CDT 2:43 PM CDT Renetta MERINO - JOE BRYAN Performing Organization Address City/State/ZIP Code Phon e Number SPECIALTY [place] [address] [address] [facility] [address], Room 3-580 documented in this encounter Visit Diagnoses Diagnosis Brain mass - Primary Unspecified condition of brain documented in this encounter
== END 2022-03-04 19:05 | disposition home or self-care (01) ==
LOC: LAB 19:04
PROVIDERS: PCP Family Medicine; Visit Provider Physician Assistant
DX: R47.01 Aphasia (principal)
CPT/HCPCS: 36415; 85025

== ENCOUNTER 2022-04-10 09:24 | Outpatient (CLI) | payer MEDICAID, SELFPAY ==
--- OUTSIDE RECORDS SUMMARY | 2022-04-10 09:33 | XMS_ITS | Encounter Summary ---
:1970 Author Organization [facility] Address [address] [place] [address] Phone Care Team Providers Name Role Phone [...] nts EXTERNAL MED 02/24/2022 2:46 PM Results f or this REC-LAB RESULTS CDT procedure ar e [...]
--- OUTSIDE RECORDS SUMMARY | 2022-04-10 09:33 | XMS_ITS | Encounter Summary ---
:1970 Author Organization [facility] Address [address] [place] [address] Phone Care Team Providers Name Role Phone [...] nts EXTERNAL MED 01/10/2022 2:05 PM Results f or this REC-LAB RESULTS [...]
--- OUTSIDE RECORDS SUMMARY | 2022-04-10 09:33 | XMS_ITS | Encounter Summary ---
:1970 Author Organization [facility] Address [address] [place] [address] Phone Care Team Providers Name Role Phone [...] nts EXTERNAL MED 02/07/2022 5:20 PM Results f or this REC-LAB RESULTS [...]
--- OUTSIDE RECORDS SUMMARY | 2022-04-10 09:33 | XMS_ITS | Encounter Summary ---
:1970 Author Organization [facility] Address [address] [place] [address] Phone Care Team Providers Name Role Phone [...] nts EXTERNAL MED 12/28/2021 3:48 PM Results f or this REC-LAB RESULTS [...]
--- OUTSIDE RECORDS SUMMARY | 2022-04-10 09:33 | XMS_ITS | Encounter Summary ---
:1970 Author Organization [facility] Address [address] [place] [address] Phone Care Team Providers Name Role Phone [...] nts EXTERNAL MED 01/09/2022 5:04 PM Results f or this REC-LAB RESULTS [...]
--- OUTSIDE RECORDS SUMMARY | 2022-04-10 09:33 | XMS_ITS | Clinical Summary ---
:1970 Author Organization [facility] Address [address] [place] [address] Phone Care Team Providers Name Role Phone Unavailable Primary Care Provider Unavailable Source Comments Presentigo is fully rolled out on [employer]. Last update 01/27/09.Sk[employer]Pages Allergies Active Allergy Reactions Severity Noted Date [...] Take one tablet every 6 hours TABS 17: Take one tablet every 6 hours 418: Take one tablet every 6 hours 419: Take one tabet every 8 hours 420: Take one tabet every 8 hours 421: Take one tabet every 8 hours 422: Take one tablet every 12 hours 23: Take one tablet every 12 hours 424: Take one tablet every 12 hours 4/25: Take one tablet daily 12/18: Take one tablet daily 12/19: Take one tablet daily Active Problems Problem Noted Date Focal seizure 12/03/2021 Brain mass 11/30/2021 Encounters Date Type Specialty Care Team Description 02/21/2022 Documentation Only Unknown, Provider 02/05/2022 Documentation Only Unknown, Provider 01/09/2022 Documentation Only Unknown, Provider 01/09/2022 Documentation Only Unknown, Provider from Last 3 Months Social History Tobacco [...] 1970 Lipid Screening 1971 Periodontal Maintenance 1984 HEALTH MAINTENANCE PROTOCOL 1989 Cervical Cancer Screening 2000 Age 30-65 PREVENTATIVE VISIT 06/23/2021 06/23/2020 COVID-19 Vaccine (4 - 09/26/2021 07/04/2021, 10/10/2020, Booster for Pfizer series) 09/19/2020 INFLUENZA VACCINE 04/25/2022 06/29/2021, 06/11/2020, 06/17/2019, Additional history exists TD/TDAP ADULTS 06/23/2030 06/23/2020, 01/04/2010, 01/04/2003 HIV Screening Completed 12/03/2021 HIB Aged Out No longer eligib le based on patient 's age to complete this topic Medical Devices Implanted Type Area Automotive Product Specialist Device Shelf Model / Identifier Expiration Serial / Lot Date Dura,Duragen 3x3in [id number] Duragen Left: [employer]TE[employer] 1 09/23/2023 [id number] / Implanted: Qty: 1 on 12/05/2021 by Tommy Arevalo MD at [facility] Head SCIENCES YAZ / [id number] Surgicel 4x8 1951 Hemostatic Left: [employer] 2 [id number] / Implanted: Qty: 1 on 12/05/2021 by Darinel Dunlap MD at [facility] Agent Head / [place] Hole Cover, 17mm 421.527 Plate Left: BTCJam 421.527 / Implanted: Qty: 1 on 12/05/2021 by Tommy Arevalo MD at [facility] Head / 4mm [id number] Screw/[place] Left: [employer] 400. 834E / Implanted: Qty: 9 on 12/05/2021 by Tommy Arevalo MD at [facility] Head / Procedures Procedure Name Priority Date/Time Associated Diagnosis Comme nts EXTERNAL MED 02/24/2022 2:46 PM Results f or this REC-LAB RESULTS CDT procedure ar e in the results section. EXTERNAL MED 02/07/2022 5:20 PM Results f or this REC-LAB RESULTS CDT procedure ar e in the results section. EXTERNAL MED 01/10/2022 2:05 PM Results f or this REC-LAB RESULTS CDT procedure ar e in the results section. EXTERNAL MED 01/09/2022 5:04 PM Results f or this REC-LAB RESULTS CDT procedure ar e in the results section. from Last 3 Months Results EXTERNAL MED REC-LAB RESULTS (02/24/2022 2:46 PM CDT)Only the most recent of4 resultswithin the time period is included. Narrative 02/24/2022 2:46 PM CDT This result has an attachment that is no t available. Ordered by an unspecified provider. Provider Unknown LABORATORY from Last 3 Months Insurance Payer Benefit Plan / Subscriber ID Effective Dates Phone Addre ss Type Group BLUE CROSS BCBS COMMERCIAL [id number] 2019-Presen [address] [address] PPO BLUE [facility] ([place]WARE/BLUE t [place], [place] PLUS/CCS/OPEN [phone] ACCESS/CONSUMER VALUE/[employer] HEALTH) Advance Directives For more information, please contact: [phone] Latest Code Status on FileFull Code Date Activated Date Inactivated Comments 11/30/2021 6:36 PM 12/07/2021 11:10 PM Question Answer Comments Does the Patient have preferences regarding life sustaining Yes measures (these options only apply when the patient has a pulse): Patient will accept intubation for respiratory deterioration : Unaddressed Patient will accept BiPAP for respiratory deterioration: Yelitza ddressed Patient will accept vasopressors for hypotension: Unaddresse d Patient will accept cardioversion for unstable rhythm: Unadd ressed Discussed Code Status With Whom? Patient Health Care Directive and/or Previous Code/End of Life Pref No Reviewed?
--- OUTSIDE RECORDS SUMMARY | 2022-04-10 09:34 | XMS_ITS | Encounter Summary ---
:1970 Author Organization [facility] Address [address] [place] [address] Phone Care Team Providers Name Role Phone [...] Comme nts TELEMETRY STRIPS 12/06/2021 8:54 PM Resul ts for this CDT procedure are i n the results section. documented in this encounter Results TELEMETRY STRIPS (12/06/2021 8:54 PM CDT) Narrative 12/06/2021 8:54 PM CDT This result has an attachment that is no t available. Ordered by an unspecified provider. Provider Unknown ECHO documented in this encounter Visit Diagnoses Not on filedocumented in this encounter
--- OUTSIDE RECORDS SUMMARY | 2022-04-10 09:34 | XMS_ITS | Encounter Summary ---
:1970 Author Organization [facility] Address [address] [place] [address] Phone Care Team Providers Name Role Phone [...]
--- OUTSIDE RECORDS SUMMARY | 2022-04-10 09:34 | XMS_ITS | Encounter Summary ---
:1970 Author Organization [facility] Address [address] [place] [address] Phone Care Team Providers Name Role Phone [...]
--- OUTSIDE RECORDS SUMMARY | 2022-04-10 09:34 | XMS_ITS | Encounter Summary ---
:1970 Author Organization [facility] Address [address] [place] [address] Phone Care Team Providers Name Role Phone [...] nts EXTERNAL MED 12/23/2021 1:21 PM Results f or this REC-LAB RESULTS [...]
--- OUTSIDE RECORDS SUMMARY | 2022-04-10 09:34 | XMS_ITS | Encounter Summary ---
:1970 Author Organization [facility] Address [address] [place] [phone] Phone Care Team Providers Name Role Phone Unavailable Primary Care Provider Unavailable Reason for Visit Auth/Cert Specialty Diagnoses / Procedures Referred By Contact Refer red To Contact SURGERY Diagnoses Brain Mass Korin Blanco MD [facility] [address] [place] [address] [phone] [address] [place] [address] Phone: Fax: Referral ID Status Reason Start Date Expiration Date Visits Requ ested Visits Authorized [id number] 1 1 Encounter Details Date Type Department Care Team Description 11/30/2021 - Hospital Encounter [facility] Catracho Blanco MD [address] [place] [id number] Brain mass 12/07/2021 Surgery/Trauma/Neuro Darinel Dunlap MD [address] [place] [address] [place] [address] [address] [place], [place] [address] Social History Tobacco Use Types Packs/Day Years [...] intermittent word finding difficulties 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 3. Unchanged 3 mm of smce-hu-dfbjb midline shift. 4. Vague hypodense masslike area [...] intact Motor: Follows commands x4 extremities, 5/5 library science professor strength and plantar/dorsiflexion bilaterally?? Sensory: Sensation intact in all 4 extremities?? ALLERGIES Allergies Allergen Reactions ??? Adhesive Tape Itching/Pruritus PLANNED DISCHARGE ORDERS: Medication List START taking these medications acetaminophen 325 mg tablet Take 2 tablets (650 mg) by mouth every 4 hours as needed for Mild Pain. dexamethasone 4 mg Tabs Commonly known as: DECADRON Take one tablet (4mg) per the schedule below 12/08: Q6H 12/09: Q6H 12/10: Q6H 12/11: Q8H [...] These medications were sent to [facility] [place] [facility] - [facility] [address] [place] [address], [facility], [place] [address] Hours: 17/03 ?? acetaminophen 325 mg tablet ?? dexamethasone 4 mg Tabs ?? levETIRAcetam 1000 mg Tabs ?? oxyCODONE 5 mg tablet Discharge Procedure Orders Special activity instructions Order Comments: Seizure Safety: Per [place] regulations individuals are prohibited from operating a motor vehicle within 3 months following any seizure or other episode with sudden unconsciousness or inability to sit up, and that are required to report any future such seizure to the [facility] within 30 days after the event. I [...] documented as of this encounter Progress Notes Jaydonmichaelmaxi Nanci - 12/07/2021 1:17 PM CDT Clinical Coordinator Assessment Patient Name: Guillermina Colling Date: 12/07/2021 Expected DC Date: 12/07/2021 Brief Patient Summary: Patient is a 51 y.o. female admitted on 11/30/2021 with word finding difficulty, found to have a left sided brain mass. MRI showed multifocal brain mass involving left temporal andparietal lobes, left thalamus, left internal capsule and [...] Receiving: none Income Source: employed Primary Insurance: Looking for [employer] Secondary Insurance: N/A PLAN Plan/Interventions Discharge Plan: [...] Gaytan RN, MSN Inpatient Float Clinical coordinator [phone] [employer] Covering Green & Purple surgery. Nanci Gaytan, [...] intact Motor: Follows commands x4 extremities, 5/5 library science professor strength and plantar/dorsiflexion bilaterally?? Sensory: Sensation intact [...] Dunlap MD - 12/07/2021 12:00 [place] [address] [facility]#: [id number] PATIENT: GUILLERMINA KELSEY : 1970 DATE DICTATED: 12/07/2021 SURGERY STAFF DAILY PROGRESS NOTE DATE OF SERVICE: 12/07/2021 I saw and evaluated the patient. I discussed management with residents, CERTIFIED FRAUD EXAMINER, and PAs on the Neurosurgery team and [...] MD Staff Physician Surgery Service Received in [employer] Advisor: 12/07/2021 17:08:12 M: /[id number] WG/MODL Jimena Allison PA-C - 12/06/2021 5:02 [...] Ht 1.664 m (5' 5.5) Wt 94.2 kg(207 lb 10.8 oz) LMP 11/19/2021 (Approximate) Comment: [...] intact Motor: Follows commands x4 extremities, 5/5 library science professor strength and plantar/dorsiflexion bilaterally?? Sensory: Sensation intact [...] Dunlap MD - 12/06/2021 12:00 [place] [address] [facility]#: [id number] PATIENT: GUILLERMINA KELSEY : 1970 DATE DICTATED: 12/06/2021 SURGERY STAFF DAILY PROGRESS NOTE DATE OF SERVICE: 12/06/2021 I saw and evaluated the patient. I discussed management with residents, CERTIFIED FRAUD EXAMINER, and PAs on the Neurosurgery team and [...] Postoperative CT scan shows the biopsy site. Shecan probably go home tomorrow. She is on anticonvulsants. Darinel Dunlap MD Staff Physician Surgery Service Received in [employer] Advisor: 12/06/2021 17:46:16 M: /[id number] WG/MODL Bob Olvera DDS - 12/05/2021 5:37 AM CDT NEUROSURGERY PROGRESS [...] MRI showing multifocal brain mass involving left temporal and parietal lobes, left thalamus, left internal capsule and sublentiform region. CT CAP negative for malignancy. She was admitted for monitoring and further workup with surgical plan pending. LP performed on 12/04. Her infectious workup has been negative so far Plan: Brain biopsy 12/05 Activity as tolerated Decadron 11/29-12/03 [facility] Neurology consulted - appreciate recs -echo (TTE) - negative -LP (cell count, protein, glucose, oligoclonal bands, IL-2, flow/cytology) - negative to date -Hep B, Hep C, HIV - negative - Please contact the Neurosurgery Resident on-call with questions or new concerns Discussed with Neurosurgery Chief Resident. Bob Olvera DDS [facility] PGY2 Neurosurgery Service Interval 24-hour Events/Subjective: Discussion [...] x 4 extremities, 5/5 strength in all extremities but reports that she [...] Blanco MD - 12/05/2021 12:00 [place] [address] [facility]#: [id number] PATIENT: GUILLERMINA KELSEY : 1970 DATE DICTATED: 12/05/2021 SURGERY STAFF DAILY PROGRESS NOTE DATE OF SERVICE: 12/05/2021 I saw and evaluated the patient. I discussed management with residents, CERTIFIED FRAUD EXAMINER, and PAs on the Neurosurgery team and agree with documented findings and plan. Guillermina did well with her surgery today. Her postop scan looks good. There is just a little bit of hemorrhage in the biopsy site, but basically it looks great. The pathology showed hypercellular tissue. Her exam is the same. She has some word- finding difficulty, but she is awake and alert and she is actually trying to eat dinner with her mother. We will have to see how she does over the next several days and start working on discharge planning. It will take at least a week to get the pathology back. She will be in the ICU tonight and hopefully transferred down to the floor tomorrow. Korin Blanco MD Staff Physician Neurosurgery Service Received in [employer] Advisor: 12/05/2021 20:29:52 M: /[id number] TB/MODL Bob Olvera DDS - 12/04/2021 7:35 AM CDT NEUROSURGERY PROGRESS [...] MRI showing multifocal brain mass involving left temporal and parietal lobes, left thalamus, left internal capsule and sublentiform region. CT CAP negative for malignancy. She was admitted for monitoring and further workup with surgical plan pending. LP performed on 12/04 Plan: Activity as tolerated Decadron 11/29-12/03 [facility] Neurology consulted - appreciate recs -echo (TTE) - planned for 12/04 @9am -LP (cell count, protein, glucose, oligoclonal bands, IL-2, flow/cytology) - negative to date -Hep B, Hep C, HIV - negative - Please contact the Neurosurgery Resident on-call with questions or new concerns Discussed with Neurosurgery Chief Resident. Bob Olvera DDS [facility] PGY2 Neurosurgery Service Interval 24-hour Events/Subjective: LP yesterday. Pt denies any new changes Objective: BP 118/75 (Cuff Location: Right Arm) Pulse 48 Temp 36.4 ??C (97.6 ??F) (Oral) Resp 18 Ht 1.664 m (5' 5.5) Wt 94.2 kg (207 lb 10.8 oz) LMP 11/19/2021 (Approximate) Comment: longer period (8days instead or 2-3) SpO2 96% BMI 34.03 [...] 12/01/202127 HGB 11.2 (L) 12/01/202127 HCT 34.8 12/01/20218 PLT 271 12/01/20218 MCV 93.0 12/01/2021 0028 MCH 29.9 12/01/2021 0028 MCHC 32.2 12/01/20218 RDW 13.8 12/01/20218 MPV 10.9 12/01/20218 Lab Results Component Value Date/Time NA 139 12/01/20218 K 4.3 12/01/20218 CHLORIDE 108 12/01/20218 CO2 21 (L) 12/01/20218 GLU 111 (H) 12/01/20218 UN 10 12/01/2021 0028 CR 0.62 12/01/2021 0028 CA 8.6 12/01/2021 0028 Darinel Dunlap MD - 12/04/2021 12:00 [place] [address] [facility]#: [id number] PATIENT: GUILLERMINA KELSEY : 1970 DATE DICTATED: 12/04/2021 SURGERY STAFF DAILY PROGRESS NOTE DATE OF SERVICE: 12/04/2021 I saw and evaluated the patient. I discussed management with residents, CERTIFIED FRAUD EXAMINER, and PAs on the Neurosurgery team and [...] in regard to the biopsy, which I hopeI answered sufficiently. We are going to move forward with an open biopsy in the next day or two. Hopefully it can happen tomorrow. We feel that an open biopsy would be safer given its proximity to thesurface. We did discuss the risks of hemorrhage, which should hopefully be slightly lesser than a stereotactic biopsy. We are going to use stereotactic guidance for the biopsy. Amongst the risks discussed include, but not limited to, hemorrhage, seizures, need for re-biopsy, failure to gain an answer,complications of general anesthesia and positioning, worsening neurologic deficit, etc. They demonstrated very good understanding and are ready to proceed. Her speech issues are quite significant and obvious when trying to carry out any sort of discussion. Darinel Dunlap MD Staff Physician Surgery Service Received in [employer] Advisor: 12/04/2021 19:10:08 M: /[id number] WG/MODL Nic Vega MD - 12/03/2021 9:14 [...] Ht 1.664 m (5' 5.5) Wt 94.2 kg(207 lb 10.8 oz) LMP 11/19/2021 (Approximate) Comment: [...] Normal tone throughout, shoulder abduction 5/5 bilaterally,finger library science professor 5/5 bilaterally, knee extension/flexion 5/5 bilat, plantarflexion 5/5 bilat, dorsiflexion 5/5 bilat. Sensory: sensation intact to pinprick on arms and legs bilaterally Coordination: erzhkr-rxze-tuachp intact bilaterally Reflexes: plantars downgoing bilaterally Gait: deferred Labs and imaging reviewed by me: 12/03: Negative HIV, negative hepatitis B surface antibody, negative hepatitis C antibody, negative hepatitis B surface antigen. Assessment and Plan Guillermina Kelsey is a 51 y.o. female with past medical history of hypertension and benign thyroid nodules presenting from [facility] for further evaluation of new brain mass seen on head imaging. Precipitating event prior to hospitalization included patient experiencing word finding difficulty this was followed by loss of consciousness and patient waking up to vomit on her clothing and bruising on her person. On examination today patient continues to have word finding difficulties although per chart review this seems to be improving. During conversation Guillermina occasionally made mistakes using pronouns, she also reports return things but not [...] the seizure like episode. In agreement with continuation of Keppra and Decadron at this time. 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 Althoughmultifocal nature of lesion can be seen in other pathology including lymphoma. Guillermina was also noted to have a granuloma in the spleen seen on CT, therefore recommend TTE to rule out extrapulmonary sarcoid possibility on 12/02. Plan is for CT and LP to be completed today, will await results and continue to follow. Agree with neurosurgery plan for [...] Neurologist / Neurohospitalist 12/03/2021, 15:11 Bob Olvera DDS - 12/03/2021 7:53 AM CDT NEUROSURGERY PROGRESS [...] MRI showing multifocal brain mass involving left temporal and parietal lobes, left thalamus, left internal capsule and sublentiform region. CT CAP negative for malignancy. She was admitted for monitoring and further workup with surgical plan pending. Plan: Pre op Labs Activity as tolerated Trelladsofia Kim Neurology consulted - appreciate recs -echo (TTE) -LP (cell count, protein, glucose, oligoclonal bands, IL-2, flow/cytology) -Hep B, Hep C, HIV - Please contact the Neurosurgery Resident on-call with questions or new concerns Discussed with Neurosurgery Chief Resident. Bob Olvera DDS [facility] PGY2 Neurosurgery Service Interval 24-hour Events/Subjective: No acute events overnight. Seen by neurology yesterday. Endorsing periodic mild headache Objective: BP 130/83 (Cuff Location: Right Arm) Pulse 46 Temp 35.7 ??C (96.3 ??F) (Oral) Resp 18 Ht 1.664 m (5' 5.5) Wt 94.2 kg (207 lb 10.8 oz) LMP 11/19/2021 (Approximate) Comment: longer period (8days instead or 2-3) SpO2 96% BMI 34.03 [...] 32.2 12/01/202127 RDW 13.8 12/01/202127 MPV 10.9 12/01/20218 Lab Results Component Value Date/Time NA 139 12/01/202127 K 4.3 12/01/20218 CHLORIDE 108 12/01/202127 CO2 21 (L) 12/01/202127 GLU 111 (H) 12/01/202127 UN 10 12/01/202127 CR 0.62 12/01/202127 CA 8.6 12/01/202127 Korin Blanco MD - 12/03/2021 12:00 [place] [address] [facility]#: [id number] PATIENT: GUILLERMINA KELSEY : 1970 DATE DICTATED: 12/03/2021 SURGERY STAFF DAILY PROGRESS NOTE DATE OF SERVICE: 12/03/2021 I saw and evaluated the patient. I discussed management with residents, CERTIFIED FRAUD EXAMINER, and PAs on the Neurosurgery team and [...] send her for a number of different teststhat may help us sort all this out. [...] MD Staff Physician Neurosurgery Service Received in [employer] Advisor: 12/03/2021 18:01:00 M: /[id number] TB/MODL Bob Olvera DDS - 12/02/2021 5:58 AM CDT NEUROSURGERY PROGRESS [...] MRI showing multifocal brain mass involving left temporal and [...] with Neurosurgery Chief Resident. Bob Olvera DDS [facility] PGY2 Neurosurgery Service Interval 24-hour Events/Subjective: No acute events overnight. She reports continued difficulty finding words for some familiar objects, but is able to compensate very well unless asked to identify objects. Endorsing periodic mild headache Objective: BP 109/65 (Cuff Location: Right Arm) Pulse 49 Temp 36.1 ??C (97 ??F) (Oral) Resp 18 Ht 1.664m (5' 5.5) Wt 94.2 kg (207 lb [...] with words, EOMI, PERRL at 3mm and brisklyreactive, CN II-XII intact, follows commands x 4 extremities, strength 5/5 b/l wrist flex/ext, hand library science professor, elbow flex/ext, shoulder abduction, hip flexion, knee [...] 0.62 12/01/202127 CA 8.6 12/01/202127 Bob Olvera DDS - 12/01/2021 7:46 AM CDT NEUROSURGERY PROGRESS NOTE Guillermina Nguyen [...] sublentiform region. She was admitted for monitoring andfurther workup with surgical plan pending. Plan: F/u [...] with words, EOMI, PERRL at 3mm and brisklyreactive, CN II-XII intact, follows commands x 4 extremities, strength 5/5 b/l wrist flex/ext, hand library science professor, elbow flex/ext, shoulder abduction, hip flexion, knee [...] Blanco MD - 12/01/2021 12:00 [place] [address] [facility]#: [id number] PATIENT: GUILLERMINA KELSEY : 1970 DATE DICTATED: 12/01/2021 SURGERY STAFF DAILY PROGRESS NOTE DATE OF SERVICE: 12/01/2021 I saw and evaluated the patient. I discussed management with residents, CERTIFIED FRAUD EXAMINER, and PAs on the Neurosurgery team and agree with documented findings and plan. Guillermina is a 51-year-old woman who developed word-finding difficulty evening. She was evaluated at her local [...] As I mentioned, it does not enhance. Thedifferential is wide. Radiologist thinks it is most [...] our neurologists for their expertise on these dov ers. The patient may end up needing a brain biopsy. The lesion is not resectable as there are no specificborders and it is multifocal. However, we should [...] little bit better with the Decadron that we start her on last night. She is also on Keppra. We are going to do a CT of her chest, abdomen, and pelvis to make sure there are no other surprises. We will follow her closely. Please see resident consult note dated 11/30. I personally reviewed the history, exam, images and plan and agree with note as written. Korin Blanco MD Staff Physician Neurosurgery Service Received in [employer] Advisor: 12/01/2021 10:02:46 M: /[id number] /MODL Susana Taylor RN - 11/30/2021 8:10 PM [...] otherwise healthy began noticing word finding difficulty yesterdayafternoon while on a zoom meeting for work. [...] CN II-XII intact, follows commands x 4 extremities,strength 5/5 b/l wrist flex/ext, hand library science professor, elbow flex/ext, shoulder abduction, hip flexion, knee flex/ext, ankle plantar/dorsiflexion, EHL, no pronator drift, finger to nose intact, no clonus. Sensation to light touch intact. 2+ and symmetric reflexes in bilateral triceps, brachioradialis, patella and achilles. RESULTS: Lab results: No results found for: WBC, RBC, HGB, HCT, PLT No results found for: NA, K, CHLORIDE, CO2, GLU, UN, CR, CA No results found for: INR Imaging results: CT CHEST/ABD/PELVIS W/IV CONT (Results Pending) MR BRAIN W/O + WITH CONTRAST (Results Pending) Hattie Shelton PA-C, 11/30/2021 6:36 PM Neurosurgery Pager [phone] or Arara documented in this encounter Procedure Notes Chandan [...] to verify the correct patient, procedure, equipment, media production support manager and site/side marked as required. [...] Tabs Take 1 tablet by mouth daily. MAMMALOGY TEACHER med Assessment: Pertinent points to note: No changes to MAMMALOGY TEACHER medications. I have reviewed the patient's medications for discharge and have discussed the necessary changes with the provider. Changes have been made and medication list updated and complete. Please page with any questions. Hattie Mathis PharmD 12/07/2021 16:17 For questions regarding this note, please contact pharmacist on service at [facility] and [facility] ([employer]) or [phone]. If no response within needed timeframe, please contact central pharmacy via phone at [phone]. Jacquie Link MD - 12/05/2021 5:16 PM [...] admitted for ongoing work-up, including infectious and inflammatory causes; this has been negative. She elected to [...] AM CDT NEUROLOGY CONSULT PROGRESS NOTE Guillermina Colling : 1970 Sex: female Date of Service: [...] 36.4 ??C (97.6 ??F) (Oral) Resp 18 Ht 1.664 m (5' 5.5) Wt 94.2 kg (207 lb 10.8 oz) LMP 11/19/2021 (Approximate) Comment: longer period (8days instead or 2-3) SpO2 96% BMI 34.03 [...] and decadron and transferred to [facility] [place]surgical evaluation. #left temporal multifocal infiltrative [...] evidence thus far for systemic malignancy with RECEPTION CENTRE MANAGER metastatic, negative CT CAP (aside from granulomatous [...] stress). 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 Ramirez. Thank you for involving neurology in the care of this patient. Please do not hesitate to call with questions/concerns. General neurologypager [phone]. We will sign off, please page the team with new concerns or if laboratory values return abnormal. Cherelle Alvarez MD Neurology PGY-3 Seizure Safety: Per [place] regulations individuals are prohibited from operating a [...] meeting but having extreme difficulty producing words whenshe meant to speak. She describes extra words coming out as well as the wrong words. At the end ofthat meeting she turned the camera microphone off and cried out of frustration and anxiety. For the next meeting for work she had from 6 to 7 PM she kept her camera and microphone off. She endorsed trying to repeat sentences that she heard other people saying out loud to herself to see if she was ableto do that, per report she was unable to repeat consistently. She endorses losing a period of time, w aking up confused and noting vomit on her person. At 830 she got up to let her significant other into her home and was reportedly still confused. Significant other (Erich) became concerned as she was reportedly giving one-word answers and acting abnormally and brought her into a local emergency department ([facility]) that night. She was treated with keppra and steroids and subsequently transferred to [facility] for imaging findings of brain mass. Per [...] her head that had been responsive to mepk-uiu-btlzppm medications. Does not endorse that the headache woke her from sleep, had any clear triggers, also did notendorse night sweats or unintentional weight loss. No episodes of lost time that she is aware of. She does endorse persistent difficulty with language for the past few days. She notes some difficulty reading as well. Over the last day or so she is noting improvement and is currently able to do Moobia (language learning software) on her phone in the hospital, an activity that she enjoys. She does not endorse any personal history of cancer or neurologic condition including seizure. No family history of epilepsy. She does note that her father had difficulty with a brain infection that was debilitating and required significant caretaking from her. Her father during the pastfew years however. She was unable to further delineate his medical condition. Family history is alsonotable for mother with breast cancer. She has 3 children. She is a 28-year-old son who has schizophrenia versus schizoaffective disorder complicated by substance use disorder who lives in a care home. 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 Has not [...] right handed and her primary language is Estonian. PAST MEDICAL HISTORY: HTN Goiter/thyroid nodules PRIOR [...] Hattie Adams PA- C, 650 mg at 158 ??? oxyCODONE (ROXICODONE) tablet 5 mg, 5 [...] mg, Oral, bid, Hattie Adams PA-C, 1,000 mg at 12/02/21 0743 ??? dexamethasone (DECADRON) 20 mg/ [...] Mother with breast cancer, father with unspecified RECEPTION CENTRE MANAGER infection. REVIEW OF SYSTEMS: Complete 10-point ROS [...] to follow multistep commands (point to the ceiling after you point to the floor, touch your [...] touch. Intact hearing to casual speech. Does endorse tinnitus bilaterally (chronic). Palate elevates symmetrically, tongue protrudes [...] at bilateral biceps, brachioradialis, triceps. No ankle clonus.Bilateral positive Ant in upper extremities. Right foot with downgoing toe. Left foot on resident exam with mildly upgoing toe, on repeated exam with attending equivocal. SENSORY: No hemineglect, no extinction to double sided stimulation (visual & tactile). Light touch symmetric in bilateral upper extremities. Notes some diffuse decreased sensation to light touch inright lower extremity (reports this is chronic, leg right leg has been affected for several years). Vibration sensation intact and symmetric of bilateral hallux. COORD: Complex motor skills revealed normal coordination. Finger-nose- finger and heel to chacon were intact. No noticeable resting or postural tremor. STATION: appropriate stance, no truncal ataxia GAIT: Casual gait intact; patient able to tip-toe, heel-walk. Tandem intact. PERTINENT INVESTIGATIONS: All pertinent labs and imaging since admission reviewed in [facility]. Lab results: Lab Results Component Value [...] Brain mass or lesion please do with [employer] protocol. Comparison: Brain MRI from earlier today. Technique: Thin-section susceptibility-weighted, T1-weighted, and T2-weighted MR imaging was performed of the skull after intravenous contrast administration. The images were transferred to the TroopSwapWorkstation for surgical planning. Amide proton transfer(APT)-weighted imaging was also performed. Findings: The images were performed for stereotactic planning. The images are reviewed with the prior study, and show nonenhancing T1 hypointense T2 hyperintense lesion exhibiting mass effect centered in the lateral left temporal lobe, measuring up to approximately 3 x 3.2 cm. Additional lesion exhibiting mass effect with similar signal characteristics centered in the medial left temporal lobe at theperihippocampal gyrus, and T2 hyperintense lesion centered in [...] this event. Per Ms. Kelsey she has beenin her usual state of health prior to this event except some headaches for a few months. Based on the severity of the exam today, despite ongoing medication with Keppra and Decadron would suspect that she has had some deficits for longer than a few days. Will need to further corroborate with her family/partner. Brain MRI is concerning for left temporal-parietal [...] evidence thus far for systemic malignancy with RECEPTION CENTRE MANAGER metastatic, negative CT CAP. It is possible that sarcoidosis could have a similar presentation, so could obtain echo to assess for extra RECEPTION CENTRE MANAGER manifestations (although no pulmonary or cardiac symptoms [...] to call with questions/concerns. General neurology pager [phone]. We will continue to follow . Cherelle [...] 10.8 oz) LMP 11/19/2021 (Approximate) Comment: longer period(8 days instead or 2-3) SpO2 95% BMI [...] intact Motor: Follows commands x4 extremities, 5/5 library science professor strength and plantar/dorsiflexion bilaterally Sensory: Sensation intact [...] 4mg q6H - Continue seizure prophylaxis with Keppra Jimena Allison PA-C, 12/05/2021 9:10 AM OR Surgeon - Darinel Dunlap MD - 12/05/2021 12:00 [place] [address] [id number] PATIENT: GUILLERMINA KELSEY : 1970 DATE OF [...] on CT. An MRI was obtained showing T2 hyperintensity and flair abnormalities in the left temporal lobe and left thalamus. CSF studies were obt ained that did not show any diagnostic information. The leading differential is a neoplastic process; therefore, biopsy was indicated. Risks, benefits, and alternatives were discussed with the patient,and written consent was obtained for the above [...] The head was affixed to the David assistant head cashier. All pressure points were padded. Stealth was registered with good accuracy. The incision was then planned, prepped and draped in standard fashion. IV antibiotics were administered. After conduction appropriate time-out, 10 mL of lidocaine with epinephrine was infiltrated into the planned linear incision. The incision was opened using a #10 blade scalpel. Monopolar cautery was used to dissect through themuscle and down to the cranium. A periosteal elevator was used to dissect the periosteum and expose the skull. A cerebellar retractor was used to retract open the incision. Stealth was then used to micheal out the tumor over the skull. A craniotomy was then planned around the edges of the tumor. The level vial marker drill was then used to create a [...] biopsy. A #15 blade scalpel was then usedto open the dura. Metzenbaum scissors were then used to continue opening the dural flap in a U shaped fashion, with the inferior aspect being maintained to flap towards the sigmoid sinus. Once the durawas opened and the brain was exposed, the most affected gyrus was quite swollen and enlarged, thoughthis was not significant to cause any harm [...] corticectomy. Once the corticectomy was created, tumor forcepswere used to obtain samples that were sent for frozen section. The frozen came back as abnormal tissue, possibly primarily glial origin. With confirmed abnormal tissue, we then continued to obtain tissue to send for permanent pathology, using tumor forceps. The tumor forceps were used to continue removing tissue to safely resect the posterior aspect of the tumor. Once we were satisfied with the amount of tissue obtained and [...] was then plated using the Neuro-Synthes plating system,and was affixed to the skull. At this point, the wound was irrigated copiously, and meticulous hemostasis was obtained. The galea was then closed using 2-0 Vicryl sutures in an inverted interrupted fashion. The skin was closed using 3-0 nylon in a running locking fashion. The incision was then cleaned, and bacitracin ointment was applied over the incision. Sterile dressings of Telfa, followed by Medipore tape was then applied. This marked [...] MD Staff Physician Surgery Service Received in Solar Sales Energy Advisor: 12/05/2021 17:41:26 M: /[id number] AE/MODL documented in this encounter Miscellaneous Notes [...] finding troubles. VSS, on RA. Up ad iyv, walking in halls independently. C/o L sided headache/head pain, getting tylenol and oxycodone prn which is helpful. Pupils equal, round, reactive to light. Bilateral hand security chief museum equal and strong, and plantar and dorsi [...] Placement time Site Days Incision: Head Left 12/05/211653 -- 2 Psychosocial Within Defined Limits Ludmila [...] Cardiac Assessment Within Defined Limits except for: Top Closer - remote telemetry Respiratory Within defined limits [...] informed of Patient Valuables and Belongings Policy (#[id number]): Policy reviewed - patient/family/designee has indicated that he/she will assume responsibility of patient valuables Transferred from Unit/Bed: [facility] [place] Transferred to Unit/Bed: [place] [address] Received By:: Susana Liz RN A: Transferred patient from [facility] to [place] [address] at 2255, via wheelchair. Transferred with: RN [...] Cardiac Assessment Within Defined Limits except for: Top Closer - bedside telemetry Lead Monitored: Lead II [...] Patient is following commands, PERRL. Strength equal in all extremities. RESP: On Room Air. LS Clear. [...] Cardiac Assessment Within Defined Limits except for: Top Closer - bedside telemetry Lead Monitored: Lead II [...] Cardiac Assessment Within Defined Limits except for: Top Closer - bedside telemetry Lead Monitored: Lead II [...] Cardiac Assessment Within Defined Limits except for: Top Closer - bedside telemetry Lead Monitored: Lead II [...] Cardiac Assessment Within Defined Limits except for: Top Closer - bedside telemetry ECG Rhythm: normal sinus [...] Cardiac Assessment Within Defined Limits except for: Top Closer - bedside telemetry ECG Rhythm: normal sinus rhythm AK Interval (sec): 0.19 QRS Interval (sec): 0.07 [...] Cardiac Assessment Within Defined Limits except for: Top Closer - bedside telemetry ECG Rhythm: normal sinus [...] Implant Name Type Inv. Item Serial No. Process Owner Lot No. LRB No. Used Action GELFOAM(SURGIFOAM) SZ 100 3X5 (LARGE) 1973 Hemostatic Agent GELFOAM(SURGIFOAM) SZ 100 3X5 (LARGE) 1973 JOSE ARMANDO & JOSE ARMANDO Left 1 Implanted SURGICEL 4X8 1951 Hemostatic Agent SURGICEL 4X8 1951 [employer] Left 1 Implanted SURGIFLO(aka Gel Flow) 2991 Hemostatic Agent SURGIFLO(aka Gel Flow) 2991 [employer] Left 1 Implanted STRAIGHT PLATE, 2 HOLE 421.502 Plate STRAIGHT PLATE, 2 HOLE 421.502 [employer] [place] Left 2 Implanted KATERINE HOLE COVER, 17MM 421.527 Plate KATERINE HOLE COVER, 17MM 421.527 [employer] [place] Left 1 Implanted DURA,DURAGEN 3X3IN [id number] Duragen DURA,DURAGEN 3X3IN [id number] Remotium YAZ [id number] Left 1Implanted 4MM 400.834E Screw/[place] 4MM 400.834E [employer] [place] Left 9 Implanted [...] 36.9 ??C (98.4 ??F) (Oral) Resp 18 Ht 1.664 m (5' 5.5) Wt 94.2 kg (207 lb 10.8 oz) LMP 11/19/2021 (Approximate) Comment: longer period (8days instead or 2-3) SpO2 95% BMI 34.03 [...] PM CDT I have reviewed today's student nurse/international trade teacher's nursing documentation. Nicole Navarro RN 12/05/2021 15:50 Nursing Assessment - Efraín Cardenas, RN - 12/05/2021 3:08 AM CDT Nursing Assessment Head to Toe Head to Toe Assessment Shift Summary D: A/O x4, neuro intact, no numbness/tingling reported, strong security chief museum/flexion. VSS, denies pain. Remains on RA, LS [...] Cardiac Assessment Within Defined Limits except for: Top Closer - bedside telemetry Respiratory Within defined limits [...] PM CDT I have reviewed today's student nurse/international trade teacher's nursing documentation. Nicole Navarro RN 12/04/2021 15:22 Nursing Assessment - Josh Tobar RN - 12/04/2021 12:28 PM CDT Nursing Assessment Head to Toe Head to Toe Assessment Shift Summary BP 113/73 (Cuff Location: Right Arm) Pulse 57 Temp 35.8 ??C (96.5 ??F) (Tympanic) Resp 18 Ht1.664 m (5' 5.5) Wt [...] endorses headache pain. Remains on RA, LS clear,bowel sounds active, no BM this shift. Voiding. [...] feeling warm and burning on perineal area whenIV dexamethasone was given, Face and neck area [...] gas but hasn't had BM yet. So far,no other concerns, pt complaint with cares, bed lowered, call light within reach, will continue pt'splan of care. Josh Verdugo RN, 12/01/2021 1:43 PM Neurologic/Cognitive Assessment Within Defined Limits except for: Speech: Aphasia - expressive Comments: Minimal HEENT Within Defined Limits Cardiac Assessment Within Defined Limits except for: Top Closer - bedside telemetry ECG Rhythm: normal sinus [...] 0000 until reoriented and after conversing with policy writer typist for a short while was more appropriate. [...] Shift Summary Pt arrived around 1800 from [place], [place] following a full at home last [...] section. PANEL BASIC METABOLIC Routine 12/06/2021 5:25 Res ults for this (BMP) AM CDT procedure are i n the results section. PC FREE STANDING Routine 12/06/2021 5:25 Results for this BLOOD DRAW BY AM CDT procedure are in VENIPUNCTURE the results section. CT HEAD NO IV Timed 12/05/2021 5:59 Results for this CONTRAST PM CDT procedure are i n the results section. POC GLUCOSE Routine 12/05/2021 5:14 Results for this PM CDT procedure are i n the results section. PC TISSUE EXAM BY STAT 12/05/2021 3:47 Results for this PATHOLOGIST PM CDT procedure are i n the results section. CRANIOTOMY WITH OPEN Urgent (< 48 12/05/2021 1:00 Brain mass BIOPSY WITH STEALTH hrs) PM CDT PC LAB TEST STAT 12/05/2021 6:36 Res ults for this AM CDT procedure are i n the results section. COVID-19 SURVEILLANCE STAT 12/05/2021 6:30 Res ults for this AM CDT procedure are i n the results section. PC LAB CBC W/DIFF & Routine 12/05/2021 4:58 Resul ts for this PLT AM CDT procedure are i n the results section. PROTHROMBIN (PT) & Routine 12/05/2021 4:58 Result s for this INR AM CDT procedure are i n the results section. PANEL BASIC METABOLIC Routine 12/05/2021 4:58 Res ults for this (BMP) AM CDT procedure are i n the results section. PC ANTIBODY Routine 12/05/2021 4:58 Results for this SCREEN,RBC,EACH SERUM AM CDT proced ure are in TECHNIQUE the results section. PC LAB RH TYPE GEL Routine 12/05/2021 4:58 Result s for this AM CDT procedure are i n the results section. ECH TRANSTHOR (TTE) Routine 12/04/2021 10:52 Resu lts for this COMPLETE WITH AM CDT procedure are in CONTRAST the results section. PC LAB AMPA-R AB CBA STAT 12/03/2021 7:15 Resu lts for this PM CDT procedure are i n the results section. PC LAB INTERLEUKEN 2 STAT 12/03/2021 7:15 Resu lts for this RECEPTOR (CD25) PM CDT procedure ar e in SOLUBLE the results section. PC FREE STANDING Routine 12/03/2021 7:15 Results for this BLOOD DRAW BY PM CDT procedure are in VENIPUNCTURE the results section. XR NEEDLE PLACEMENT - Routine 12/03/2021 3:07 Res ults for this SPINE PM CDT procedure are i n the results section. PF SPINAL Routine 12/03/2021 3:06 Results for this PUNCTURE,LUMBAR,DIAGN PM CDT proced ure are in OSTIC the results section. CYTOLOGY NON-CUSHION MAKER Routine 12/03/2021 2:48 Results for this SPECIMEN PM CDT procedure are i n the results section. PROTEIN, CSF Routine 12/03/2021 2:48 Results for this PM CDT procedure are i n the results section. PC OLIGOCLONAL Routine 12/03/2021 2:48 Results fo r this IMMUNOGLOBULIN PM CDT procedure are in the results section. MISCELLANEOUS LAB Routine 12/03/2021 2:48 Results for this PM CDT procedure are i n the results section. GLUCOSE, CSF Routine 12/03/2021 2:48 Results for this PM CDT procedure are i n the results section. PC SMEAR, ROSELIA SOURCE, Routine 12/03/2021 2:48 Res ults for this WITH INTERPRETATION PM CDT procedur e are in (GRAM STAIN) the results section. PC CELL Routine 12/03/2021 2:48 Results for this COUNT,MICS.BODY PM CDT procedure ar e in FLUIDS,EXCEPT the results BLOOD,W-DIFF. CT. section. PC FLOWCYTOMETRY/TC, Routine 12/03/2021 1:10 Resu lts for this ADD-ON PM CDT procedure are i n the results section. PC CYTOPATH, STAT 12/03/2021 1:10 Results for this CONCENTRATE TECH PM CDT procedure a re in the results section. PC HEPATITIS C Routine 12/03/2021 6:41 Results fo r this AM CDT procedure are i n the results section. PC HIV-1 AG W/HIV-1 & Routine 12/03/2021 6:41 Res ults for this HIV-2 AB AM CDT procedure are i n the results section. HEPATITIS B SURFACE Routine 12/03/2021 6:41 Resul ts for this ANTIGEN AM CDT procedure are i n the results section. HEPATITIS B SURFACE Routine 12/03/2021 6:41 Resul ts for this ANTIBODY AM CDT procedure are i n the results section. CT CHEST/ABD/PELVIS Routine 12/01/2021 9:13 Resul ts for this W/IV CONT AM CDT procedure [...] BRAIN W/O + WITH Routine 11/30/2021 9:15 Resul ts for this CONTRAST PM CDT procedure are i n the results section. documented in this encounter Results (ABNORMAL) POC GLUCOSE (12/06/2021 5:54 PM CDT) athologist Signature POC Glucose 124 (H) 70 - 100 [facility] mg/dL CAMPUS - POINT OF CARE Specimen (Source) Anatomical Collection Method Collection Time Re ceived Time Location / / Volume Laterality Blood 12/06/2021 5:54 PM CDT Korin Blanco MD LABORATORY Performing Organization Address City/[facility]/ZIP Code Phon e Number [facility] - POINT OF CARE [address] [place] [address] (ABNORMAL) POC GLUCOSE (12/06/2021 11:52 AM CDT) athologist Signature POC Glucose 146 (H) 70 - 100 [facility] mg/dL CAMPUS - POINT OF CARE Specimen (Source) Anatomical Collection Method Collection Time Re ceived Time Location / / Volume Laterality Blood 12/06/2021 11:52 AM CDT Korin Blanco MD LABORATORY Performing Organization Address City/[facility]/ZIP Code Phon e Number [facility] - POINT OF CARE [address] [place] [address] (ABNORMAL) PANEL BASIC METABOLIC (BMP) (12/06/2021 5:25 AM CDT) P athologist Signature Sodium 133 (L) 135 - 148 [facility] mEq/L Potassium 4.1 3.5 - 5.3 [facility] mEq/L Chloride 100 92 - 108 [facility] mEq/L CO2 23 22 - 30 [facility] mEq/L AnGap 10 8 - 16 [facility] mEq/L Glucose 128 (H) 70 - 100 [facility] mg/dL BUN 18 6 - 20 [facility] mg/dL Creatinine 0.61 0.50 - 1.00 [facility] mg/dL Calcium 8.9 8.6 - 10.0 [facility] mg/dL eGFR, High >120 >=60 [facility] ml/min/1.73 m2 Comment: Calculated using CKD-EPI equati on eGFR, Low 105 >=60 ml/min/1.73m2 [facility] Comment: Calculated using CKD-EPI equati on Specimen Anatomical Collection Method Collection Time Receive d Time (Source) Location / / Volume Laterality Blood 12/06/2021 5:25 AM 2 5:53 CDT AM CDT Jimena Allison PA-C LABORATORY Performing Organization Address City/State/ZIP Code Phon e Number [facility] [place] [address] (ABNORMAL) CBC WITH PLATELET (12/06/2021 5:25 AM CDT) P athologist Signature WBC 18.50 (H) 4.00 - [facility] 10.00 k/cmm RBC 3.88 (L) 3.90 - 5.20 [facility] m/cmm Hgb 11.3 (L) 11.5 - 15.7 [facility] g/dL Hematocrit 34.7 34.0 - 45.0 [facility] % MCV 89.4 80.0 - [facility] 100.0 fL MCH 29.1 25.0 - 32.0 [facility] pg MCHC 32.6 31.0 - 36.0 [facility] g/dL RDW 13.4 11.5 - 14.5 [facility] % Plt 301 150 - 400 [facility] k/cmm MPV 10.6 6.5 - 12.5 [facility] fL Specimen Anatomical Collection Method Collection Time Receive d Time (Source) Location / / Volume Laterality Blood 12/06/2021 5:25 AM 5:43 CDT AM CDT Jimena Allison PA-C LABORATORY Performing Organization Address City/State/ZIP Code Phon e Number [facility] [place] [address] HEAD NO IV CONTRAST (12/05/2021 [...] 6 mm. 3. Unchanged 3 mm of ermp-iz-xlald midli ne shift. 4. Vague hypodense masslike area left te mporoparietal junction and left thalamus better characterized on prior MRI Jimena Allison was contacted by Vignesh Fowler at 7:03PM on 12/05/21 and made aware of the above finding If you are the patient, and wish to disc uss this report with a radiologist, please call [phone] between 8 am and 4 pm on [...] the hemorrhage. Unchange d 3 mm of ekhx-ia-lqgpb midline shift. H ypodense masslike at the [...] to the hemorrhage. Unchanged 3 mm of zoym-pr-vvwgn midline shift. Hypodense masslike at the left [...] 6 mm. 3. Unchanged 3 mm of agrt-cs-apsap midli ne shift. 4. Vague hypodense masslike area left te mporoparietal junction and left thalamus better characterized on prior MRI Jimena Allison was contacted by Vignesh Fowler at 7:03PM on 12/05/21 and made aware of the above finding If you are the patient, and wish to disc uss this report with a radiologist, please call [phone] between 8 am and 4 pm on regular working days. I have personally reviewed the image(s) and initial interpretation, and I agree with the findings as documented by the resident/fellow. Reading Radiologist: Kinjal Jenkins Reading Resident: Vignesh Fowler Korin Blanco MD CT NEURO (ABNORMAL) POC GLUCOSE (12/05/2021 5:14 PM CDT) athologist Signature POC Glucose 130 (H) 70 - 100 [facility] mg/dL CAMPUS - POINT OF CARE Specimen (Source) Anatomical Collection Method Collection Time Re ceived Time Location / / Volume Laterality Blood 12/05/2021 5:14 PM CDT Korin Blanco MD LABORATORY Performing Organization Address City/State/ZIP Code Phon e Number [facility] - POINT OF CARE [address] [place] [address] SURGICAL PATHOLOGY (12/05/2021 3:47 PM CDT) Component Value Ref Test Analysis Performed Pathologis t Range Method Time At [facility] SURG PATH ?Surgical Pathology Report [facility] FINAL Collection Date: ?12/05/2021 15:19 CDT ?Ordering Physician: ? DARINEL DUNLAP Received Date: ?12/05/2021 15:26 CDT ?Accession Number: ? 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 Addendum electronically signed by [...] is negative for this sample (please see [id number] for full report and interpretation). Correlation with clinical in formation, morphologic findings, and other diagnostic tests is indicated. References: 1. Terell DJ, Erick RG, Ranjan KD, et al N Engl J Med. 2015;372(52):2483-98. ?Surgical Pathology Report Collection Date: ?12/05/2021 15:19 CDT ?Ordering Physician: ? DARINEL DUNLAP Received Date: ?12/05/2021 15:26 CDT ?Accession Number: ? [id number] Addended Ancillary Studies: Please see the patient's medical records for the complete sc anned report. * ??Report Electronically Signed By ??* ?? NORBERTO ACEVEDO MD ?? 01.10.2022 9:15 ?SP Addendum Addended Ancillary Studies: Received on 12/26/21 is a an cillary report from Dr. Kofi Aleman of the [facility], [facility], [address], [facility], [place] [address]. MGMT PROMOTER METHYLATION (Final result) RESULTS MGMT [...] Percent Methylation Ratio (PMR) following the published Bravofly procedure. PMR values great er than or [...] of alkylating chemotherapy. Please see the patient's [facility] medical records for the complete scanned report. [...] Date: ?12/05/2021 15:26 CDT ?Accession Number: ? [id number] Final Diagnosis: A. 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 See comment. B. 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 See comment. Comment: Although [...] By ??* ?? NORBERTO ACEVEDO MD ?? 04.27.2022 8:36 Final Diagnosis Comment: Received on 12/18/21 is a re port from ?Lamonte Redmond of the [facility], [address] [place], [facility] [address], [address] [place] [address] regarding an external consultation of this case material requested by Dr. Warner. The business information consultant's diagnosis i s reflected in the final diagnosis field. Please see the complete consultation report within this patient's medical record. Clinical History: Clinical Diagnosis: Brain mass MA/MA 12.06.2021 12:11 Gross Description: A. ??The specimen [...] for permanent section in 1 cassette.( [place] [facility] B. ??The specimen is receive d in [...] is entirely submitted in 2 cassettes.( ? [facility] MA/MA 12.06.2021 12:11 Microscopic Description: A,B - Microscopic [...] negative for IDH1 R132H. Immunostains performed at [facility] show the neoplastic cells are positive for p53 (scattered) and the proliferation index ki-67 is moderately elevated, est imated at 20-30%. MA/SC 12.06.2021 12:11 Specimen Anatomical Collection Method Collection Time Receive d Time (Source) Location / / Volume Laterality AP SPECIMEN 12/05/2021 3:47 PM 2 3:56 CDT PM CDT Comment: Brain, left mass, biopsy Narrative This result has an attachment that is no t available. Darinel Dunlap MD LAB PATHOLOGY Performing Organization Address [facility] Code Phon e Number [facility] [place] [address] TEST URINE (12/05/2021 6:36 AM CDT) athologist Signature Ur Negative Negative [facility] UPT performed [facility] at Comment: Test performed at: [facility] [address] [place] [address] Specimen Anatomical Collection Method Collection Time Receive d Time (Source) Location / / Volume Laterality Urine 12/05/2021 6:36 AM 2 6:58 CDT AM CDT Narrative [facility] - 12/05/2021 7:53 AM CDT Needs for surgery today if has had mense s in last year. Korin Blanco MD LABORATORY Performing Organization Address [facility] Phon e Number [facility] [place] [address] COVID-19 SURVEILLANCE (12/05/2021 6:30 AM CDT) [facility] Method Time Signature COVID-19 Not Detected Not Detected [facility] Comment: This assay is an RT-PCR FDA craig roved test. Specimen (Source) Anatomical Collection Method Collection Time Re ceived Time Location / / Volume Laterality Nasopharyngeal Swab 12/05/2021 6:30 12/05 AM CDT 6:31 AM CDT Narrative [facility] - 12/05/2021 7:20 AM CDT Preferred specimen is Nasopharyngeal swab Is the patient a healthcare employee: No Is the patient a Nataliya ([facility]) Employee : No Korin Blanco MD LABORATORY Performing Organization Address City/[facility]/ZIP Code Phon e Number [facility] [place] [address] ANTIBODY SCREEN (12/05/2021 4:58 AM CDT) athologist Signature Mónica Screen Negative [facility] Specimen Anatomical Collection Method Collection Time Receive d Time (Source) Location / / Volume Laterality Blood 12/05/2021 4:58 AM 2 5:29 CDT AM CDT Korin Blanco MD LAB TRANSFUSION SERVICES Performing Organization Address City/[facility]/ZIP Code Phon e Number [facility] [place] [address] BLOOD TYPING-ABO/RH (12/05/2021 4:58 AM CDT) athologist Signature ABORHG O NEG [facility] Specimen Anatomical Collection Method Collection Time Receive d Time (Source) Location / / Volume Laterality Blood 12/05/2021 4:58 AM 2 5:29 CDT AM CDT Korin Blanco MD LAB TRANSFUSION SERVICES Performing Organization Address City/[facility]/ZIP Code Phon e Number [facility] [place] [address] PROTHROMBIN (PT) & INR (12/05/2021 4:58 AM CDT) athologist [facility] PT 11.4 9.0 - 12.5 [facility] sec INR 1.0 0.8 - 1.1 [facility] Specimen Anatomical Collection Method Collection Time Receive d Time (Source) Location / / Volume Laterality Blood 12/05/2021 4:58 AM 2 5:43 CDT AM CDT Korin Blanco MD LABORATORY Performing Organization Address City/[facility]/ZIP Code Phon e Number [facility] [place] [address] (ABNORMAL) PANEL BASIC METABOLIC (BMP) (12/05/2021 4:58 AM CDT) athologist Signature Sodium 140 135 - 148 [facility] mEq/L Potassium 3.9 3.5 - 5.3 [facility] mEq/L Chloride 107 92 - 108 [facility] mEq/L CO2 27 22 - 30 [facility] mEq/L AnGap 6 (L) 8 - 16 [facility] mEq/L Glucose 91 70 - 100 [facility] mg/dL BUN 29 (H) 6 - 20 [facility] mg/dL Creatinine 0.84 0.50 - 1.00 [facility] mg/dL Calcium 8.7 8.6 - 10.0 [facility] mg/dL eGFR, High 93 >=60 [facility] ml/min/1.73 m2 Comment: Calculated using CKD-EPI equati on eGFR, Low 81 >=60 ml/min/1.73m2 [facility] Comment: Calculated using CKD-EPI equati on Specimen Anatomical Collection Method Collection Time Receive d Time (Source) Location / / Volume Laterality Blood 12/05/2021 4:58 AM 5:48 CDT AM CDT Korni Blanco MD LABORATORY Performing Organization Address City/State/ZIP Code Phon e Number [facility] [place] [address] CBC WITH PLTS/AUTO DIFF (12/05/2021 4:58 AM CDT) P athologist Signature WBC 7.60 4.00 - [facility] 10.00 k/cmm RBC 3.93 3.90 - [facility] 5.20 m/cmm Hgb 11.7 11.5 - [facility] 15.7 g/dL Hematocrit 36.5 34.0 - [facility] 45.0 % MCV 92.9 80.0 - [facility] 100.0 fL MCH 29.8 25.0 - [facility] 32.0 pg MCHC 32.1 31.0 - [facility] 36.0 g/dL RDW 13.8 11.5 - [facility] 14.5 % Plt 266 150 - 400 [facility] k/cmm MPV 10.8 6.5 - 12.5 [facility] fL Automated Abs 3.46 1.70 - [facility] Neutrophil 6.50 k/cmm Comment: Preliminary ANC, Final Result t o Follow Abs Immature Granulocyte 0.04 0.00 - 0.09 k/cmm [facility] Comment: The Immature Granulocyte Absolu te count contains metamyelocytes and myelocytes. Abs Neutrophil 3.46 1.70 - 6.50 k/cmm [facility] B Abs Lymphocyte 3.47 0.80 - 4.00 k/cmm [facility] B Abs Monocyte 0.41 0.20 - 1.00 k/cmm [facility] Abs Eosinophil 0.19 0.00 - 0.60 k/cmm [facility] B Abs Basophil 0.03 0.00 - 0.20 k/cmm [facility] Specimen Anatomical Collection Method Collection Time Receive d Time (Source) Location / / Volume Laterality Blood 12/05/2021 4:58 AM 2 5:52 CDT AM CDT Korin Blanco MD LABORATORY Performing Organization Address City/State/ZIP Code [place] [address] TRANSTHOR (TTE) COMPLETE WITH CONTRAST (12/04/2021 [...] ?COLLING GUILLERMINA Height ?65.51 Inches Patient Number ?[id number] ?Weig ht ?207.68 Pounds Date of ? 1970 ?? BSA ? 2.02 m^2 Age ? 51 ? Tape Number Gender ?Female ? Study Date ?12/04/2021 08:58 AM Mcat Tutor ? [facility] Phys[facility] ??TESFAYE LANGLEY Referring ?Interpreting ?Erick Saldana MD Physician ?Physician ? [id number] Type of Study: TTE procedure: 2D echocardiogram, M-Mode , Doppler , Color Doppler, Contrast study, ECH TRANSTHORACIC ECHO ( TTE), Myocardial Strain Imaging HR: 63 bpmBP: 118/75 mmHgPatient Status: Routine Study Location: [id number] Quality: G ood visualization Contrast Medium: Definity. [...] Signature Electronically signed by Erick Saldana MD [id number](Interpreting physician) on 2021 01:28 PM Valves Mitral [...] Demographics Patient Name COLLING GUILLERMINA Height 65.51 I nches Patient Number [id number] Weight 207.68 Emerald nds Date of 1970 BSA 2.02 m^2 Age 51 Tape Number Gender Female Study Date 12/04/2021 08:5 8 AM Mcat Tutor BMF Ordering Physician ARABELLA LANGLEY Referring Interpreting Beatriz Graham Physician Physician [id number] Type of Study: TTE procedure: 2D echocardiogram, M-Mode , Doppler , Color Doppler, Contrast study, ECH TRANSTHORACIC ECHO ( TTE), Myocardial Strain Imaging HR: 63 bpmBP: 118/75 mmHgPatient Status: Routine Study Location: [id number] Quality: G ood visualization Contrast Medium: Definity. [...] Signature Electronically signed by Erick Saldana MD [id number](Interpreting physician) on 2021 01:28 PM Valves Mitral [...] Aortic Valve Peak Velocity: 1.7 m/s Area (continuity) : 3.31 cm^2 Peak Gradient: 11.02 mmHg Mean [...] significant regurgitation. LVOT Peak Velocity: 1.6 m/s Mean Velocity: 1. 1 m/s Peak Gradient: 10 mmHg Mean Gradient: 5 mmHg LVOT Diameter: 2.1 cm LVOT VTI: 35.1cm Structures Left Atrium LA Dimension: 4.5 cm LA Area: 18.8 cm^2 LA/Aorta: 1.5 LA Volume Index: 25ml/m^2 Left Atrium Summary Normal left atrial size. Left Ventricle Diastolic Dimension: 4.45 cm Systolic Di mension: 2.39 cm Septum Diastolic: 0.99 cm PW Diastolic: 0.94 cm Area Systolic: 20. 1 cm^2 Area Diastolic: 39.4 cm^2 EF Calculated: 64.89% CI: 3.79 l/min*m^2 CO: 7.66 l/min LV EDV/LV EDV Index: 133 ml/66 m^2 FS: 46.29 % LV ESV/LV ESV Index: 46.7 ml /23 m^2 LV Length: 9.1 cm LVOT Diameter: [...] City/State/ZIP Code Phon e Number [facility] ENCEPHALOPATHY, AUTOIMMUNE EVALUATION, SERUM (12/03/2021 7:15 PM CDT) Component Value Ref Test Analysis Performed At [facility] Range Method Time Signature Encephalopathy, See [facility] Interpretation Footnote LABORATORIES [address] [facility] Comment: No informative autoantibodies were detec anayeli in this evaluation. However, a negative result d oes not exclude autoimmune encephalopathy, idiopathic or paraneoplastic. Sensitivity and specificity of antibody testing are enhanced by testing both serum and CSF. AMB Receptor Ab Negative Negative [facility] L [facility]ATOR[facility] [address] [facility] Comment: ADDITIONAL INFORMATIO N This test was developed and its performa nce characteristics determined by [facility] in a manner co nsistent with CLIA requirements. This test has not been nay ared or approved by the U.S. Food and Drug Administration. Amphiphysin AB Negative <1:240 titer [facility] [address] [facility] Comment: ADDITIONAL INFORMATIO N This test was developed and its performa nce characteristics determined by [facility] in a manner co nsistent with CLIA requirements. This test has not been nay ared or approved by the U.S. Food and Drug Administration. REFERENCE RANGE: ??AMPHIPHYSIN AB <1:240 = NEGATIVE AGNA 1 Negative <1:240 titer [facility] [address] [facility] Comment: ADDITIONAL INFORMATIO N This test was developed and its performa nce characteristics determined by [facility] in a manner co nsistent with CLIA requirements. This test has not been nay ared or approved by the U.S. Food and Drug Administration. REFERENCE RANGE: ??AGNA 1 <1:240 = NEGATIVE Polina 1 Negative <1:240 titer [facility] [address] [facility] Comment: REFERENCE RANGE: POLINA 1 <1:240 = NEGATIVE POLINA 2 Negative <1:240 titer [facility] [address] [facility] Comment: ADDITIONAL INFORMATIO N This test was developed and its performa nce characteristics determined by [facility] in a manner co nsistent with CLIA requirements. This test has not been nay ared or approved by the U.S. Food and Drug Administration. REFERENCE RANGE POLINA 2 <1:240 = NEGATIVE POLINA 3 Negative <1:240 titer [facility] [address] [facility] Comment: ADDITIONAL INFORMATIO N This test was developed and its performa nce characteristics determined by [facility] in a manner co nsistent with CLIA requirements. This test has not been nay ared or approved by the U.S. Food and Drug Administration. REFERENCE RANGE: ??POLINA 3 <1:240 = NEGATIVE CASPR2-IgG CBA Negative Negative [facility] [address] [facility] Comment: ADDITIONAL INFORMATIO N This test was developed and its performa nce characteristics determined by [facility] in a manner co nsistent with CLIA requirements. This test has not been nay ared or approved by the U.S. Food and Drug Administration. CRMP-5-IGG Negative <1:240 titer [facility] [address] [facility] Comment: ADDITIONAL INFORMATIO N This test was developed and its performa nce characteristics determined by [facility] in a manner co nsistent with CLIA requirements. This test has not been nay ared or approved by the U.S. Food and Drug Administration. REFERENCE RANGE: ??CRMP-5-IGG <1:240 = NEGATIVE DPPX Ab IFA Negative Negative [facility] [address] [facility] Comment: ADDITIONAL INFORMATIO N This test was developed and its performa nce characteristics determined by [facility] in a manner co nsistent with CLIA requirements. This test has not been nay ared or approved by the U.S. Food and Drug Administration. ESDRAS B Receptor Ab Negative Negative Going [address] [facility] Comment: ADDITIONAL INFORMATIO N This test was developed and its performa nce characteristics determined by [facility] in a manner co nsistent with CLIA requirements. This test has not been nay ared or approved by the U.S. Food and Drug Administration. GAD65 Ab Assay 0.00 <=0.02 nmol/L [facility] [address] [facility] Comment: ADDITIONAL INFORMATIO N This test was developed and its performa nce characteristics determined by [facility] in a manner co nsistent with CLIA requirements. This test has not been nay ared or approved by the U.S. Food and Drug Administration. GFAP IFA Negative Negative [facility] [address] [facility] Comment: ADDITIONAL INFORMATIO N This test was developed and its performa nce characteristics determined by [facility] in a manner co nsistent with CLIA requirements. This test has not been nay ared or approved by the U.S. Food and Drug Administration. IgLONS IFA Negative Negative [facility] [address] [facility] Comment: ADDITIONAL INFORMATIO N This test was developed and its performa nce characteristics determined by [facility] in a manner co nsistent with CLIA requirements. This test has not been nay ared or approved by the U.S. Food and Drug Administration. LGI1-IgG CBA Negative Negative [facility] [address] [facility] Comment: ADDITIONAL INFORMATIO N This test was developed and its performa nce characteristics determined by [facility] in a manner co nsistent with CLIA requirements. This test has not been nay ared or approved by the U.S. Food and Drug Administration. mGluR1 Ab IFA Negative Negative [facility] LAB ORATORIES [address] [facility] Comment: ADDITIONAL INFORMATIO N This test was developed and its performa nce characteristics determined by [facility] in a manner co nsistent with CLIA requirements. This test has not been nay ared or approved by the U.S. Food and Drug Administration. NMDA R Ab Negative Negative [facility] DR[facility] SUPPORT CENTR Comment: ADDITIONAL INFORMATIO N This test was developed and its performa nce characteristics determined by [facility] in a manner co nsistent with CLIA requirements. This test has not been nay ared or approved by the U.S. Food and Drug Administration. NIF IFA Negative Negative [facility] DR[facility]TR Comment: ADDITIONAL INFORMATIO N This test was developed and its performa nce characteristics determined by [facility] in a manner co nsistent with CLIA requirements. This test has not been nay ared or approved by the U.S. Food and Drug Administration. WELCOME HOSTESS 1 Negative <1:240 titer [facility] SUPPORT CENTR Comment: ADDITIONAL INFORMATIO N This test was developed and its performa nce characteristics determined by [facility] in a manner co nsistent with CLIA requirements. This test has not been nay ared or approved by the U.S. Food and Drug Administration. REFERENCE RANGE: ??WELCOME HOSTESS 1 <1:240 = NEGATIVE WELCOME HOSTESS 2 Negative <1:240 [address] [facility] [address] [facility] Comment: ADDITIONAL INFORMATIO N This test was developed and its performa nce characteristics determined by [facility] in a manner co nsistent with CLIA requirements. This test has not been nay ared or approved by the U.S. Food and Drug Administration. REFERENCE RANGE: ??WELCOME HOSTESS 2 <1:240 = NEGATIVE WELCOME HOSTESS TR Negative <1:240 titer [facility] Comment: ADDITIONAL INFORMATIO N This test was developed and its performa nce characteristics determined by [facility] in a manner co nsistent with CLIA requirements. This test has not been nay ared or approved by the U.S. Food and Drug Administration. Test Performed by: [address] [address] [employer] Installer: Chintan Coronado M.D. Ph. D.; CLIA# [id number] REFERENCE RANGE: ??WELCOME HOSTESS TR <1:240 = NEGATIVE Specimen Anatomical Collection Method Collection Time Receive d Time (Source) Location / / Volume Laterality Serum 12/03/2021 7:15 PM 2 7:01 CDT AM CDT Narrative [facility] - 12/13/2021 5:20 PM CDT Encephalopathy, Autoimmune Evaluation, Serum Name of test: ENS2 Korin Blanco MD LABORATORY Performing Organization Address City/State/ZIP Code Phon e Number [facility] [address] [place], [place] [address] [facility] SUPPORT CENTR INTERLEUKIN 2 RECEPTOR (CD25) SOLUBLE (12/03/2021 7:15 PM CDT) [facility] Method Time Signature Interleukin 2 332.1 175.3 - [facility] Receptor (CD25) 858.2 LABORATORIES Soluble pg/mL Comment: INTERPRETIVE INFORMATION: Cytokines Results are used to understand the patho physiology of immune, infectious, or inflammatory diso rders, or may be used for research purposes. This test was developed and its performa nce characteristics determined by [facility]. It has not been cleared or approved by the [place] Food and Drug Adminis tration. This test was performed in a CLIA certified labora tory and is intended for clinical purposes. Performed By: [facility] [address] [place] [address] Veterans' Counselor: Hortensia Lemon MD Specimen Anatomical Collection Method Collection Time Receive d Time (Source) Location / / Volume Laterality Serum 12/03/2021 7:15 PM 2 7:01 CDT AM CDT Korin Blanco MD LABORATORY Performing Organization Address City/[facility]/ZIP Code Phon e Number [facility] [address] [place] [address] QUANTIFERON-TB GOLD PLUS (12/03/2021 7:15 PM CDT) [facility] Method Time Signature QuantiFERON TB Negative Negative [facility] Gold Plus QFT TB 1 -0.01 [facility] QFT TB 2 -0.01 [facility] QFT TB MITOGEN 9.97 [facility] QFT NIL 0.03 [facility] Specimen Anatomical Collection Method Collection Time Receive d Time (Source) Location / / Volume Laterality Blood 12/03/2021 7:15 PM 2 8:57 CDT PM CDT Korin Blanco MD LABORATORY Performing Organization Address City/[facility]/ZIP Code Phon e Number [facility] [place] [address] [address] [facility] XR NEEDLE PLACEMENT - SPINE (12/03/2021 3:07 [...] CDT) Narrative Chandan Chu MD - 12/03/2021 3 :06 PM CDT Chandan Chu MD ? 12/03/2021 [...] verify the correct patient, procedure, equipmen t, media production support manager and site/side marked as required. [...] para median. Chandan Chu MD PROCEDURES CYTOLOGY NON-CUSHION MAKER SPECIMEN (12/03/2021 2:48 PM CDT) [facility] Method Time Signature Cytology Refrigerated [facility] Non-Sales Service Supervisor Specimen Specimen Anatomical Collection Method Collection Time Receive d Time (Source) Location / / Volume Laterality CSF 12/03/2021 2:48 PM 3:17 CDT PM CDT Comment: CYTOLOGY NON-CUSHION MAKER SPECIMEN Narrative [facility] - 12/03/2021 3:17 PM CDT Both orders are required to process Cytology/Non-CUSHION MAKER panel. Please do not discontinue either order. 1. Cytology Non-CUSHION MAKER 2. Cytology Non-CUSHION MAKER Specimen . Korin Blanco MD LAB PATHOLOGY Performing Organization Address City/State/ZIP Code Phon e Number [facility] [place] [address] MISCELLANEOUS LAB (12/03/2021 2:48 PM CDT) [facility] Method Time Signature [facility] Sendout See Comment See Comment MISCELLANEOUS REFERENCE LABORATORY Comment: Meningitis/Encephalitis Panel by PCR [facility] test code 9926057 Escherichia coli K1 by PCR Not Detected [...] / / Volume Laterality Other 12/03/2021 2:48 PM 2 7:28 CDT AM CDT Narrative MISCELLANEOUS REFERENCE LABORATORY - 7:29 AM CDT [place] [facility] Meningitis/Encephalitis Pathogen Panel, PCR, Spinal Fluid Reference Lab: [facility] Test Name: ABOVE Reference Lab test code: [id number] Reflex testing available (Y/N): N Expected TAT: 2 DAYS Temp: ??R Korin Blanco MD LABORATORY Performing Organization Address City/State/ZIP Code Phon e Number MISCELLANEOUS REFERENCE LABORATORY MISCELLANEOUS REFERENCE See Comment for Lab LABORATORY Address CSF CULTURE:INCLUDES GRAM STAIN (12/03/2021 2:48 PM CDT) [facility] Method Time Signature Final Report No growth. [facility] Gram Stain No PMN's seen. [facility] Report No organisms seen. Specimen Anatomical Collection Method Collection Time Receive d Time (Source) Location / / Volume Laterality CSF 12/03/2021 2:48 PM 2 3:26 CDT PM CDT Narrative [facility] - 12/06/2021 10:02 AM CDT Was CSF taken from a shunt: No Korin Blanco MD LAB MICROBIOLOGY Performing Organization Address City/[facility]/ZIP Code Phon e Number [facility] [place] [address] BODY FLUID CELL COUNT/DIFF (12/03/2021 2:48 PM CDT) [facility] Method Time Signature Fluid Type CF CSF [facility] Volume CF 20 mL [facility] Appearance CF Clear [facility] Color bf Colorless [facility] Tube # CSF Tube 4 [facility] RBC CSF <1,000 cells/ul [facility] Nuc Ct CSF 1 cells/ul [facility] Neutrophil CSF 0 % [facility] Lymphocytes CSF 100 % [facility] Specimen Anatomical Collection Method Collection Time Receive d Time (Source) Location / / Volume Laterality CSF 12/03/2021 2:48 PM 2 3:17 CDT PM CDT Korin Blanco MD LABORATORY Performing Organization Address City/[facility] Code Phon e Number [facility] [place] [address] OLIGOCLONAL BANDS CSF (12/03/2021 2:48 PM CDT) [facility] Method Time Signature Oligoc Band CSF Negative [facility] LABORATORIES Oligoclonal Bands 0 0 - [address] [facility] Number,CSF LABORATORIES Oligoclonal Bands See Note [facility] Interpretation LABORATORIES Comment: Isoelectric focusing/immunofixation reve aled no oligoclonal bands in either the CSF or the serum. Th is is considered to be a negative result for oligoclonal ban ds. Approximately 5 percent of patients with clinically defi nitive multiple sclerosis will have a negative result. Performed By: [facility] [address] [place] [address] Veterans' Counselor: Hortensia Lemon MD Specimen Anatomical Collection Method Collection Time Receive d Time (Source) Location / / Volume Laterality CSF 12/03/2021 2:48 PM 2 3:17 CDT PM CDT Korin Blanco MD LABORATORY Performing Organization Address City/State/ZIP Code Phon e Number [address] [address] PROTEIN, CSF (12/03/2021 2:48 PM CDT) athologist Signature Protein Total 34 15 - 45 [facility] CSF mg/dL Specimen Anatomical Collection Method Collection Time Receive d Time (Source) Location / / Volume Laterality CSF 12/03/2021 2:48 PM 2 3:17 CDT PM CDT Korin Blanco MD LABORATORY Performing Organization Address City/State/ZIP Code Phon e Number [facility] [place] [address] (ABNORMAL) GLUCOSE, CSF (12/03/2021 2:48 PM CDT) athologist Signature Glucose CSF 82 (H) 40 - 70 [facility] mg/dL Comment: GLUCOSE CSF REFERENCE RANGES: 60% - 70% of the plasma level at the nisha e the spinal tap is performed Specimen Anatomical Collection Method Collection Time Receive d Time (Source) Location / / Volume Laterality CSF 12/03/2021 2:48 PM 2 3:17 CDT PM CDT Korin Blanco MD LABORATORY Performing Organization Address City/State/ZIP Code Phon e Number [facility] [place] [address] FLOW CYTOMETRY (12/03/2021 1:10 PM CDT) Component Value Ref Test Analysis Performed At [facility] gist Range Method Time Signature FC Report ?Flow Cytometry Report [facility] Collection Date: ?12/03/2021 13:10 CDT ?Ordering Physician: ? KORIN BLANCO Received Date: ?12/03/2021 16:18 CDT ?Accession Number: ? [id number] ? Final Report Clinical History: Clinical history per [facility] medical records: 51-year-old female with brain lesions. [...] and the cell populations were evaluated using [employer] analysis software. The total cell count in thi s study was 1/microliter after lysis of red cells. Cell viability was 100%. This test was developed and its performance characteristics determined by the ? [place] ?? [facility] Flow Cytometry Laboratory. ??It has not [...] / Volume Laterality AP SPECIMEN 12/03/2021 1:10 PM 2 4:18 (CSF) CDT PM CDT Comment: FLOW CYTOMETRY Narrative This result has an attachment that is no t available. Korin Blanco MD LAB PATHOLOGY Performing Organization Address City/State/ZIP Code Phon e Number [facility] [place] [address] CYTOLOGY NON-CUSHION MAKER (12/03/2021 1:10 PM CDT) Component Value Ref Test Analysis Performed At [facility] gist Range Method Time Signature Non Sales Service Supervisor ?Non Sales Service Supervisor Report [facility] Report Collection Date: ?12/03/2021 13:10 CDT ?Ordering Physician: ? KORIN BLANCO Received Date: ?12/04/2021 11:48 CDT ?Accession Number: ? [id number] ?Non Gynecologic Cytology Final Report Specimen Type: Cerebral Spinal Fluid Final Diagnosis: Negative for malignant cells. * ??Report Electronically Signed By ??* ?? Renetta Warner M.D. ?? Screening Performed By: ?? ALYSE Hill(ASCP) ?? [facility] CENTER 12.05.2021 15:22 Clinical History & Gross Description: RECEIVED ??in the cytology l ab: 5 cc of clear, colorless cerebral spinal fluid (including a 1:1 dilution with RPMI). PREPARED: ??1 air-dried double cytospin, 1 fixed double cyto spin. Specimen Anatomical Collection Method Collection Time Receive d Time (Source) Location / / Volume Laterality AP SPECIMEN 12/03/2021 1:10 PM 2 (CSF) CDT 11:48 AM CDT Comment: Cerebral Spinal Fluid Narrative This result has an attachment that is no t available. Korin Blanco MD LAB PATHOLOGY Performing Organization Address City/[facility]/ZIP Code Phon e Number [facility] [place] [address] HIV COMBO (12/03/2021 6:41 AM CDT) [facility] gist Method Time Signature HIV Nonreactive Nonreactive [facility] Antigen-Antib shannan Comment: Performance characteristics hav e not been established with this test on patients less than 2 years of age. Specimen Anatomical Collection Method Collection Time Receive d Time (Source) Location / / Volume Laterality Blood 12/03/2021 6:41 AM 2 7:17 CDT AM CDT Korin Blanco MD LABORATORY Performing Organization Address City/[facility]/ZIP Code Phon e Number [facility] [place] [address] HEPATITIS B SURFACE ANTIGEN (12/03/2021 6:41 AM CDT) [facility] Method Time Signature HBV Surface Nonreactive Nonreactive [facility] Ag Specimen Anatomical Collection Method Collection Time Receive d Time (Source) Location / / Volume Laterality Blood 12/03/2021 6:41 AM 2 7:17 CDT AM CDT Korin Blanco MD LABORATORY Performing Organization Address City/[facility]/ZIP Code Phon e Number [facility] [place] [address] HEPATITIS C ANTIBODY WITH CONDITIONAL PCR (12/03/2021 6:41 AM CDT) [facility] Hep C Mónica Nonreactive Nonreactive [facility] Comment: Performance characteristics hav e not been established with this test on patients less than 10 years of age. Specimen Anatomical Collection Method Collection Time Receive d Time (Source) Location / / Volume Laterality Blood 12/03/2021 6:41 AM 2 7:17 CDT AM CDT Korin Blanco MD LABORATORY Performing Organization Address City/[facility]/ZIP Code Phon e Number [facility] [place] [address] HEPATITIS B SURFACE ANTIBODY (12/03/2021 6:41 AM CDT) P athologist Signature HBV Surface Reactive [facility] Mónica Comment: Reactive implies immunity. Specimen Anatomical Collection Method Collection Time Receive d Time (Source) Location / / Volume Laterality Blood 12/03/2021 6:41 AM 7:17 CDT AM CDT Korin Blanco MD LABORATORY Performing Organization Address City/State/ZIP Code Phon e Number [facility] [place] [address] CHEST/ABD/PELVIS W/IV CONT (12/01/2021 9:13 [...] from the original. Indication: evaluate for tumor/mets, bra in mass noted on imaging Technique: Following the [...] BODY ANTIBODY SCREEN (12/01/2021 12:28 AM CDT) P athologist Signature Mónica Screen Negative [facility] Specimen Anatomical Collection Method Collection Time Receive d Time (Source) Location / / Volume Laterality Blood 12/01/2021 12:28 12/01/2021 AM CDT 12:55 AM CDT Hattie Adams PA-C LAB TRANSFUSION SERVICES Performing Organization Address City/State/ZIP Code Phon e Number [facility] [place] [address] BLOOD TYPING-ABO/RH (12/01/2021 12:28 AM CDT) P athologist Signature ABORHG O NEG [facility] Specimen Anatomical Collection Method Collection Time Receive d Time (Source) Location / / Volume Laterality Blood 12/01/2021 12:28 12/01/2021 AM CDT 12:55 AM CDT Hattie Adams PA-C LAB TRANSFUSION SERVICES Performing Organization Address City/State/ZIP Code Phon e Number [facility] [place] [address] PTT (APTT) (12/01/2021 12:28 AM CDT) P athologist Signature APTT 34.2 25.0 - 37.0 [facility] sec Specimen Anatomical Collection Method Collection Time Receive d Time (Source) Location / / Volume Laterality Blood 12/01/2021 12:28 12/01/2021 1:00 AM CDT AM CDT Hattie Adams PA-C LABORATORY Performing Organization Address City/[facility]/ZIP Code Phon e Number [facility] [place] [address] PROTHROMBIN (PT) & INR (12/01/2021 12:28 AM CDT) athologist Signature PT 12.0 9.0 - 12.5 [facility] sec INR 1.0 0.8 - 1.1 [facility] Specimen Anatomical Collection Method Collection Time Receive d Time (Source) Location / / Volume Laterality Blood 12/01/2021 12:28 12/01/2021 1:00 AM CDT AM CDT Hattie Adams PA-C LABORATORY Performing Organization Address [facility] Phon e Number [facility] [place] [address] (ABNORMAL) PANEL BASIC METABOLIC (BMP) (12/01/2021 12:28 AM CDT) athologist Signature CO2 21 (L) 22 - 30 [facility] mEq/L Glucose 111 (H) 70 - 100 [facility] mg/dL BUN 10 6 - 20 [facility] mg/dL Creatinine 0.62 0.50 - 1.00 [facility] mg/dL Calcium 8.6 8.6 - 10.0 [facility] mg/dL eGFR, High >120 >=60 [facility] ml/min/1.73 m2 Comment: Calculated using CKD-EPI equati on Sodium 139 135 - 148 mEq/L [facility] Potassium 4.3 3.5 - 5.3 mEq/L [facility] Chloride 108 92 - 108 mEq/L [facility] eGFR, Low 105 >=60 ml/min/1.73m2 [facility] Comment: Calculated using CKD-EPI equati on AnGap 10 8 - 16 mEq/L [facility] Specimen Anatomical Collection Method Collection Time Receive d Time (Source) Location / / Volume Laterality Blood 12/01/2021 12:28 12/01/2021 1:00 AM CDT AM CDT Hattie Adams PA-C LABORATORY Performing Organization Address City/[facility]/ZIP Code Phon e Number [facility] [place] [address] (ABNORMAL) CBC WITH PLATELET (12/01/2021 12:28 AM CDT) P athologist Signature WBC 7.51 4.00 - [facility] 10.00 k/cmm RBC 3.74 (L) 3.90 - 5.20 [facility] m/cmm Hgb 11.2 (L) 11.5 - 15.7 [facility] g/dL Hematocrit 34.8 34.0 - 45.0 [facility] % MCV 93.0 80.0 - [facility] 100.0 fL MCH 29.9 25.0 - 32.0 [facility] pg MCHC 32.2 31.0 - 36.0 [facility] g/dL RDW 13.8 11.5 - 14.5 [facility] % Plt 271 150 - 400 [facility] k/cmm MPV 10.9 6.5 - 12.5 [facility] fL Specimen Anatomical Collection Method Collection Time Receive d Time (Source) Location / / Volume Laterality Blood 12/01/2021 12:28 12/01/2021 1:00 AM CDT AM CDT Hattie Adams PA-C LABORATORY Performing Organization Address City/State/ZIP Code Phon e Number [facility] [place] [address] MR BRAIN W/O + WITH CONTRAST [...] mass or lesion ??pleas e do with TroopSwap protocol. Comparison: Brain MRI from earlier today . Technique: Axial susceptibility-weighted images were obtained of the brain. Additional volumetric T1-and T2-weighted images were obtained brain following the intravenous administration of gadolinium, wi th the images transferred to the TroopSwap Workstation for surgical planning. Amide proton transfer(APT)-weighted [...] abnormally increased APT signal is evident. Trace ykai-gf-fvayc midline shift withou t herniation. No hydrocephalus [...] gadolinium, with the images transferred to the TroopSwap Workstation f or surgical planning. Amide proton [...] abnormally increased APT signal is evident. Trace exhh-ha-jyzvb midline shift withou t herniation. No hydrocephalus [...] Radiologist: Johnathan Avelar Resident: Mian Agrawal Hattie Adams PA-C MR [...] dexamethasone (DECADRON) 20 mg/ 5mL injection 4 Given 12/07/2021 1:00 PM CDT 4 mg mg 4 mg, IV Push, Q6H, First [...] mmol/mL Given 11/30/2021 8:54 PM CDT 5 m L Left Arm injection 0-15 mL 0-15 mL, IV Push, RAD ONE TIME AUTO ACKNOWLEDGE, 1 dose, On Fri11/30/21 at 2040 hydrALAZINE (APRESOLINE) 20 mg/mL injection Given 12/05/2021 10:59 PM CDT 10 mg 10 mg 10 mg, IV Push, Q1H PRN, Starting on Fri12/05/21 at 1838, Until Fri12/07/21 at 2304, SBP greater than 140 mmHg HYDROmorphone PF (DILAUDID) 1 mg/mL Given 12/06/2021 7:23 AM CDT 0.25 mg injection 0.2-0.5 mg 0.2-0.5 mg, IV Push, Q2H PRN, Starting on Fri12/05/21 at 2109, Until Fri12/06/21 at 0740, Severe Pain (Use First) Given 12/06/2021 2:14 AM CDT 0.5 mg HYDROmorphone PF (DILAUDID) 1 mg/mL injection Given 8:29 PM CDT 0.5 mg 0.4-0.6 mg 0.4-0.6 mg, IV Push, Q2H [...] mg/mL Given 12/01/2021 9:14 AM CDT 100 m L Right Arm injection IV Push, RAD ONE [...] Given 12/03/2021 3:05 PM CDT 4 mL Other (comment) 4 mL, Subcutaneous, ONE TIME, 1 [...] comment) - Comment: says was removed by ECONOMIC DEVELOPMENT MANAGER prior to patient arriving in unit.)7382 (Given - Provider: Adan Eldridge RN) 5685 (Given - Provider: Adan Eldridge RN) 1227 [...] Cynthia Mahmood RN) 0938 (Given - Provider: Lumdila Neal RN)1999 (Due) 1,000 mg, Oral, BID, [...] 650 mg 1831 (Given - Provider: David dyson, RN) 1815 (Given - Provider: Mandy Jackson RN) 0000 (Given - Provider: Hattie Maloney, JAMES)0341 (Given - Provider: Hattie Maloney, JAMES)0938 (Given - Provider: Ludmila Neal, JAMES)1459 (Given - Provider: Patricia Murcia RN) 650 [...] (CA NCELED) 0214 (Given - Provider: Adan Eldridge, JAMES)0723 (Given - Provider: Meche Devi RN) 0.2-0.5 mg, IV Push, Q2H PRN, Starting o n Fri12/05/21 at 2109, Until Fri12/06/21 at 0740, Severe Pain (Use First) HYDROmorphone PF (DILAUDID) 1 mg/mL injection 0.4-0.6 mg 0900 (Given - Provider: Meche Devi RN)1230 (Given - Provider: Meche Devi, JAMES)181 (Given - Provider: Mandy Jackson RN)2028 (Given [...] Meche miller RN)123 (Given - Provider: Meche Devi, JAMES)1814 (Given - Provider: Mandy Jackson RN) 4 [...] (CANCELED) 1856 (Gi mikayla - Provider: David Okeefe, JAMES)2336 (Given - Provider: Adan Eldridge RN) 0550 (Given - Provider: Adan Eldridge RN) 5 mg, Oral, Q4H PRN, Starting on 11/23 at 1835, Until Fri12/06/21 at 0740, Moderate Pain (Use First) oxyCODONE (ROXICODONE) tablet 5-10 mg 10 38 (Given - Provider: Meche Devi, RN)1638 (Given - Provider: Mandy Jackson RN)2029 (Given - Provider: Cynthia Mahmood, JAMES) 0000 (Given - Provider: Hattie miller RN)0341 [...] bee n made to medications for discharge. Cho ose the Preliminary DC Med Rec review when [...]
--- OUTSIDE RECORDS SUMMARY | 2022-04-10 09:34 | XMS_ITS | Encounter Summary ---
:1970 Author Organization [facility] Address [address] [place] [address] Phone Care Team Providers Name Role Phone Unavailable Primary Care Provider Unavailable Reason for Referral Consult/Test/Treat (Elective) - New Request Specialty Diagnoses / Procedures Referred By Contact Refer red To Contact Oncology / ONCOLOGY Diagnoses Brain tumor () Darinel Dunlap Elizabeth Ernst, MD Catherine, MD [address] [facility] [address] [place] [address] [address] [place] [address] Fax: Referral ID Status Reason Start Date Expiration Date Visits V isits Requested Authorized [id number] New Request 12/18/2021 12/18/2022 1 1 Scheduling Instructions 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 Reason for Visit Reason Comments Neurologic Problem Follow-up Encounter Details Date Type Department Care Team Description 12/18/2021 Office Visit Clinic & Specialty Darinel Dunlap Brain tumor () Center Neuro Surgery MD Jamal (Primary Dx) Clinic [address] [phone] Social History Tobacco Use Types Packs/Day Years [...] in this encounter Patient Instructions Patient InstructionsFrGilberto sgeura MD - 12/18/2021 9:51 AM CDT You were seen at [facility] neurosurgery clinic for follow-up on your brain biopsy results. We recommend a referral to the [facility] for Dr. Shelbie Ackerman. The referral will be faxed over. documented in this encounter Progress Notes Gilberto Zavala MD - 12/18/2021 8:15 AM CDT NEUROSURGERY CLINIC NOTE Guillermina Nguyen : 1970 Sex: female Assessment: -51 year old female approximately 2 weeks post-op from left parietal biopsy for diffuse, non-contrast enhancing lesion. 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 Plan: - Recommend referral to the [facility], Dr. Shelbie Ackerman. Referral order placed and faxed to [place]. Copy given to patient. - Complete decadron taper. - Continue keppra. - Sutures removed today. OK to resume activities in graduated fashion. - OK for chemotherapy and radiation in 1 month from biopsy date (01/04/2022). - OK for commercial air flight approximately 1 month from biopsy (Planning for trip to [place] with her significant other in December). Chief [...] and LLE strength 5/5 Reflexes: symmetric Coordination: gjfqaf-txlx-vhggnm intact Sensation: intact sensation to light touch [...] Dunlap MD - 12/18/2021 12:00 [place] [address] [facility]#: [id number] PATIENT: GUILLERMINA KELSEY : 1970 DATE OF SERVICE: 12/18/2021 SURGERY CLINIC We had the opportunity to visit with Guillermina Kelsey in our Neurosurgery Clinic today for followup evaluation after the biopsy of her left parietal and posterotemporal and deep lesion. The pathology for this came back from the [facility] as a grade 3 astrocytoma. Please see the excellent note fr om Dr. Gilberto Zavala in regard to this patient. I agree with its contents and had the opportunity toreview matters directly with the patient, her significant other, and her mother in clinic today. We are going to make arrangements for the patient to follow up with Neuro- Oncology. They are interested in getting additional opinions and are considering going to the [facility] as this is more convenient than the [facility]. I recommended that she see Dr. Ackerman of the [facility], and we would be happy to arrange for an appointment with her in the near future. I know she will be in very good hands for adjuvant [...] MD Staff Physician Surgery Service Received in Peripheral Vascular Tech: 12/19/2021 18:36:45 M: /[id number] WG/MODL documented in this encounter Plan of Treatment Scheduled Referrals Name Type Priority Associated Diagnoses Order S chedule REFERRAL TO ONCOLOGY Referral Routine Brain tumor () Ord ered: 12/18/2021 documented as of this encounter Visit Diagnoses Diagnosis Brain tumor () - Primary Neoplasm of unspecified nature of brain documented in this encounter
--- OUTSIDE RECORDS SUMMARY | 2022-04-10 09:34 | XMS_ITS | Encounter Summary ---
:1970 Author Organization [facility] Address [address] [place] [address] Phone Care Team Providers Name Role Phone Unavailable Primary Care Provider Unavailable Reason for Visit Reason Onset Date Comments Other 12/25/2021 Encounter Details Date Type Department Care Team Description 12/25/2021 Telephone Clinic & Specialty Marie Alexis Retu rn call Requested Center Neuro Surgery [facility]SC from Neuro-Oncologist Clinic [address] [place] [address] [phone] Social History Tobacco Use [...] her cell phone to discuss patient at [phone]. Thanks, Marie Alexis PSC, 12/25/2021 1:50 PM documented in this encounter Plan of Treatment Not on filedocumented as of this encounter Visit Diagnoses Not on filedocumented in this encounter
--- OUTSIDE RECORDS SUMMARY | 2022-04-10 09:34 | XMS_ITS | Encounter Summary ---
:1970 Author Organization [facility] Address [address] [place] [address] Phone Care Team Providers Name Role Phone Unavailable Primary Care Provider Unavailable Reason for Visit Auth/Cert Specialty Diagnoses / Procedures Referred By Contact Refer red To Contact SURGERY Diagnoses Brain Mass Michael Blanco MD [facility] [address] [place] [address] 4 [address] [place] [address] Phone: Fax: Referral ID Status Reason Start Date Expiration Date Visits Requ ested Visits Authorized [id number] 1 1 Encounter Details Date Type Department Care Team Description 12/05/2021 Anesthesia Event OR P4 Monika Mar MD [address] [facility] [address] [place], [place] [id number] 1 [facility] [place] [address] [address] [place], [place] [address] Anesthesia Record Procedure Summary Procedure [...] Ali M RN Placed in OR; 12/05/21; MARILY 2000 (duplicate charting) Arterial Line 12/05/21; 1335; [...] 8:11 PM CDT Anesthesia Post Eval Patient: [facility] Procedure(s) Performed: CRANIOTOMY WITH OPEN BIOPSY WITH [...] Anesthesia Procedure Notes - Patricia Zhou APRN, CRNA - 12/05/2021 1:58 PM CDTAssociated Order(s): Intubation/Airway [...] glidescope used for attempted #1, by this SUPERVISOR METAL FABRICATING, unable to make the ETT curve into the cords, grade [address] Larose took over, unable to pass the ETT. This SUPERVISOR METAL FABRICATING changed to a low profile MAC 3 [...] unchanged Performed by: Anesthesiologist: Michael Larose MD SUPERVISOR METAL FABRICATING: Patricia Zhou APRN, CRNA Additional Notes Recommend [...] to a newly diagnosed left temporal brain mass. On Keppra 1000 mg po bid for prophylaxis. [...] at -23.9 %. Strain calculated using a UBIKOD Epiq CVx . Normal right ventricular size and function. Normal left ventricular cavity size. Normal estimated left ventricular ejection fraction . No wall motion abnormality . Endo - negative ROS Musculoskeletal - negative ROS HEENT - negative ROS GI (+) obesity, Hematologic/Onc - negative ROS ROS comment: Hgb 11.7. Valid type and screen. Antibody negative. Platelets 266 /Renal/Naturopath - negative ROS ROS comment: Potassium 3.9 [...] and consented by patient. Plan discussed with SUPERVISOR METAL FABRICATING. Vitals: 12/05/21 0739 BP: 109/71 Pulse: 56 [...] nts INTUBATION Routine 12/05/2021 1:58 PM Results f or this CDT procedure are i n the [...] glidescope used for attempted #1, by this SUPERVISOR METAL FABRICATING, michael ble to make the ETT curve into the cords, grade [address] Larose took over, unable to pass the ETT. This SUPERVISOR METAL FABRICATING changed to a low profile MAC 3 [...] unchanged Performed by: Anesthesiologist: Michael Larose MD SUPERVISOR METAL FABRICATING: Patricia Zhou APRN, SUPERVISOR METAL FABRICATING Additional Notes Recommend low profile MAC 3 [...] 1715 phenylephrine (ROSALIA-SYNEPHRINE) Infusing 12/05/2021 4:14 0.2 mcg /kg/min 5.652 mL/hr 0.2 mg/mL infusion PM CDT [...] (ZEMURON) 10 mg/mL Given 12/05/2021 1:19 PM C DT 50 mg injection IV Push, INTRA-OP PRN ONCE MAY REPEAT, Starting on Fri12/05/21 at 1319, Until Fri12/05/21 at 1715 documented in this encounter
--- OUTSIDE RECORDS SUMMARY | 2022-04-10 09:35 | XMS_ITS | Encounter Summary ---
:1970 Author Organization [facility] Address [address] [place] [address] Care Team Providers Name Role Phone No Ref-Primary, Physician Primary Care Provider [phone] Shelbie Ackerman MD Unavailable Reason for Visit Reason Onset Date Comments Erroneous encounter-disregard 12/31/2021 Encounter Details Date Type Department Care Team Description 12/31/2021 Telephone [facility] Hattie Kelly [facility] encounter-disregard [address] [place] [phone] Social History Tobacco Use Types Packs/Day [...] on filedocumented in this encounter Care Teams Tenter Feeder Relationship Specialty Start Date End Date No Ref-Primary, Physician PCP - General 12/19/21 Shelbie Ackerman, Assigned Neuroscience 2 MD Provider [address] [place] [address] documented as of this encounter
--- OUTSIDE RECORDS SUMMARY | 2022-04-10 09:35 | XMS_ITS | Encounter Summary ---
:1970 Author Organization [facility] Address [address] [place] [address] Care Team Providers Name Role Phone No Ref-Primary, Physician Primary Care Provider [phone] Encounter Details Date Type Department Care Team [...] on filedocumented in this encounter Care Teams Circular Head Saw Operator Relationship Specialty Start Date End Date No Ref-Primary, Physician PCP - General 12/19/21 documented as of this encounter
--- OUTSIDE RECORDS SUMMARY | 2022-04-10 09:35 | XMS_ITS | Encounter Summary ---
:1970 Author Organization [facility] Address [address] [place] [address] Care Team Providers Name Role Phone No Ref-Primary, Physician Primary Care Provider [phone] Reason for Visit Reason Onset Date Comments *-*INCOMING RECORDS*-* 12/24/2021 Astrocytoma (H) [ C71.9] Encounter Details Date Type Department Care Team Description 12/24/[address] [facility] Shelbie Ackerman *-*INCO MANASA RECORDS*-* [facility] mohsen Thao MD (Astrocytoma (H) [address] [C71.9]) [place] [address] [id number] (Wo rk) Social History Tobacco Use Types [...] 11:59 PM CDT Imaging disc arrived from [facility] - given to Damaso for upload documented in this encounter Miscellaneous Notes Telephone Encounter - Juan Carlos Bernard - 12/20/2021 3:45 PM CDT RECORDS STATUS - ALL OTHER DIAGNOSIS RECORDS RECEIVED FROM: [facility] DATE RECEIVED: 12/21 NOTES STATUS DETAILS OFFICE NOTE from referring provider [facility] Dr. Darinel Agarwal: 12/18/21 [place] 11/29/21 DISCHARGE SUMMARY from hospital [facility] 11/30/21 OPERATIVE REPORT [facility] 12/05/21: Craniotomy MEDICATION LIST [facility] PATHOLOGY REPORTS [facility] 12/07/21: Path Consult ANYTHING RELATED TO DIAGNOSIS [facility]/ 12/06/21 GENONOMIC TESTING TYPE: [facility] 12/14/21: IMAGING (NEED IMAGES & REPORT) CT SCANS PACS 12/05/21, 12/01/21: [facility] [place]/2021: [place] MRI PACS 11/30/21: [facility] 11/30/21: [place] documented in this encounter Plan of Treatment Not on filedocumented as of this encounter Visit Diagnoses Not on filedocumented in this encounter Care Teams Supervisor Roller Printing Relationship Specialty Start Date End Date No Ref-Primary, Physician PCP - General 12/19/21 documented as of this encounter
--- OUTSIDE RECORDS SUMMARY | 2022-04-10 09:35 | XMS_ITS | Encounter Summary ---
:1970 Author Organization [facility] Address [address] [place], [place] [address]. [place] [address] Phone Care Team Providers Name Role Phone Unavailable Primary Care Provider Unavailable Encounter Details Date Type Department Care Team Description 12/03/2021 Orders Only [facility] Film Room Provider, Outside Referral of patient [facility] OUTSIDE PROVIDER (Primary Dx) [place], [place] Radiology Department [address] [address] [address] Social History Tobacco Use Types [...] Received Time / Laterality Volume Narrative Dummy, Yxcq-Kgadks-Uwvxufkfr - 2 2:03 PM CDT Outside Film Only Outside Provider OUTSIDE FILMS documented in this encounter Visit Diagnoses Diagnosis Referral of patient - Primary Referral of patient without examination or treatment documented in this encounter
--- OUTSIDE RECORDS SUMMARY | 2022-04-10 09:35 | XMS_ITS | Encounter Summary ---
:1970 Author Organization [facility] Address [address] [place] [id number] Phone Care Team Providers Name Role Phone [...] Comme nts TELEMETRY STRIPS 11/30/2021 7:18 PM Resul ts for this CDT procedure [...]
--- OUTSIDE RECORDS SUMMARY | 2022-04-10 09:35 | XMS_ITS | Encounter Summary ---
:1970 Author Organization [facility] Address [address] [place] [id number] Care Team Providers Name Role Phone No Ref-Primary, Physician Primary Care Provider [phone] Encounter Details Date Type Department Care Team [...] on filedocumented in this encounter Care Teams Network Mgr Relationship Specialty Start Date End Date No Ref-Primary, Physician PCP - General 12/19/21 documented as of this encounter
--- OUTSIDE RECORDS SUMMARY | 2022-04-10 09:35 | XMS_ITS | Encounter Summary ---
:1970 Author Organization [facility] Address [address] [place] [address] Phone Care Team Providers Name Role Phone Unavailable Primary Care Provider Unavailable Reason for Visit Auth/Cert Specialty Diagnoses / Procedures Referred By Contact Refer red To Contact SURGERY Diagnoses Brain Mass Korin Blanco MD [facility] [address] [place], [place] [address] [address] [place] [address] Phone: Fax: Referral ID Status Reason Start Date Expiration Date Visits Requ ested Visits Authorized [id number] 1 1 Encounter Details Date Type Department Care Team Description 12/05/2021 Surgery OR P4 Darinel Dunlap CRANIOTOMY WITH OPEN [address] Afua Berry MD BIOPSY WITH STEALTH P4.[address] [place], [place] [address] [place], [place] [phone] (Wo rk) Social History Tobacco Use Types [...] intermittent word finding difficulties and likely seizure LITHOGRAPH OPERATOR, found to have a contrast nonenhancing lesion [...] % Wt Change from Adm: 0 % [place] Body Wt (IBW) Female (kg): 58.15 kg [...] 6 mm. 3. Unchanged 3 mm of oybt-kc-lalnr midline shift. 4. Vague hypodense masslike area [...] intact Motor: Follows commands x4 extremities, 5/5 hub bander strength and plantar/dorsiflexion bilaterally?? Sensory: Sensation intact [...] Your Medications These medications were sent to [facility] Discharge Pharmacy - [place] [phone] Hours: 17/03 ?? acetaminophen 325 mg tablet ?? dexamethasone 4 mg Tabs ?? levETIRAcetam 1000 mg Tabs ?? oxyCODONE 5 mg tablet Discharge Procedure Orders Special activity instructions Order Comments: Seizure Safety: Per [place] regulations individuals are prohibited from operating a motor vehicle within 3 months following any seizure or other episode with sudden unconsciousness or inability to sit up, and that are required to report any future such seizure to the [facility] within 30 days after the event. [...] Receiving: none Income Source: employed Primary Insurance: [employer] Secondary Insurance: N/A PLAN Plan/Interventions Discharge Plan: [...] Gaytan RN, MSN Inpatient Float Clinical coordinator Pvvpe-[phone] [employer] Covering Green & Purple surgery. Nanci [...] intact Motor: Follows commands x4 extremities, 5/5 hub bander strength and plantar/dorsiflexion bilaterally?? Sensory: Sensation intact [...] Dunlap MD - 12/07/2021 12:00 [place] [address] [facility]#: [id number] PATIENT: GUILLERMINA KELSEY : 1970 DATE DICTATED: 12/07/2021 SURGERY STAFF DAILY PROGRESS NOTE DATE OF SERVICE: 12/07/2021 I saw and evaluated the patient. I discussed management with residents, INDUSTRIAL ENERGY ENGINEER, and PAs on the Neurosurgery team and [...] MD Staff Physician Surgery Service Received in Voltage Tester: 12/07/2021 17:08:12 M: /[id number] WG/MODL Jimena Allison PA-C - 12/06/2021 5:02 [...] intact Motor: Follows commands x4 extremities, 5/5 hub bander strength and plantar/dorsiflexion bilaterally?? Sensory: Sensation intact [...] Dunlap MD - 12/06/2021 12:00 [place] [address] [facility]#: [id number] PATIENT: GUILLERMINA KELSEY : 1970 DATE DICTATED: 12/06/2021 SURGERY STAFF DAILY PROGRESS NOTE DATE OF SERVICE: 12/06/2021 I saw and evaluated the patient. I discussed management with residents, INDUSTRIAL ENERGY ENGINEER, and PAs on the Neurosurgery team and [...] MD Staff Physician Surgery Service Received in Voltage Tester: 12/06/2021 17:46:16 M: /[id number] WG/MODL Bob Olvera DDS - 12/05/2021 5:37 [...] biopsy 12/05 Activity as tolerated Decadron 11/29-12/03 [facility] Neurology consulted - appreciate recs -echo (TTE) - negative -LP (cell count, protein, glucose, oligoclonal bands, IL-2, flow/cytology) - negative to date -Hep B, Hep C, HIV - negative - Please contact the Neurosurgery Resident on-call with questions or new concerns Discussed with Neurosurgery Chief Resident. Bob Olvera DDS [facility] PGY2 Neurosurgery Service Interval 24-hour Events/Subjective: Discussion [...] Blanco MD - 12/05/2021 12:00 AM CDT [place], [place] [id number] [place] [address]#: [id number] PATIENT: GUILLERMINA KELSEY : 1970 DATE DICTATED: 12/05/2021 SURGERY STAFF DAILY PROGRESS NOTE DATE OF SERVICE: 12/05/2021 I saw and evaluated the patient. I discussed management with residents, INDUSTRIAL ENERGY ENGINEER, and PAs on the Neurosurgery team and [...] MD Staff Physician Neurosurgery Service Received in Voltage Tester: 12/05/2021 20:29:52 M: /[id number] TB/MODL Bob Olvera DDS - 12/04/2021 7:35 [...] 12/04 Plan: Activity as tolerated Decadron 11/29-12/03 [facility] Neurology consulted - appreciate recs -echo (TTE) - planned for 12/04 @9am -LP (cell count, protein, glucose, oligoclonal bands, IL-2, flow/cytology) - negative to date -Hep B, Hep C, HIV - negative - Please contact the Neurosurgery Resident on-call with questions or new concerns Discussed with Neurosurgery Chief Resident. Bob Olvera DDS [facility] PGY2 Neurosurgery Service Interval 24-hour Events/Subjective: LP [...] Dunlap MD - 12/04/2021 12:00 [place] [address] [facility]#: [id number] PATIENT: GUILLERMINA KELSEY : 1970 DATE DICTATED: 12/04/2021 SURGERY STAFF DAILY PROGRESS NOTE DATE OF SERVICE: 12/04/2021 I saw and evaluated the patient. I discussed management with residents, INDUSTRIAL ENERGY ENGINEER, and PAs on the Neurosurgery team and [...] MD Staff Physician Surgery Service Received in Voltage Tester: 12/04/2021 19:10:08 M: /[id number] WG/MODL Nic Vega MD - 12/03/2021 9:14 AM CDT NEUROLOGY CONSULT PROGRESS NOTE - PGY 1 Guillermina Colling : 1970 Sex: female Overnight Events: No [...] Normal tone throughout, shoulder abduction 5/5 bilaterally,finger hub bander 5/5 bilaterally, knee extension/flexion 5/5 bilat, plantarflexion 5/5 bilat, dorsiflexion 5/5 bilat. Sensory: sensation intact to pinprick on arms and legs bilaterally Coordination: idiclr-tinc-fazpaa intact bilaterally Reflexes: plantars downgoing bilaterally Gait: deferred Labs and imaging reviewed by me: 12/03: Negative HIV, negative hepatitis B surface antibody, negative hepatitis C antibody, negative hepatitis B surface antigen. Assessment and Plan Guillermina Kelsey is a 51 y.o. female with past medical history of hypertension and benign thyroid nodules presenting from [facility] for further evaluation of new brain [...] like episode. In agreement with continuation of Keolenara and Lesly at this time. On MRI there is [...] with Neurosurgery Chief Resident. Bob Olvera DDS [facility] PGY2 Neurosurgery Service Interval 24-hour Events/Subjective: No [...] Blanco MD - 12/03/2021 12:00 [place] [address] [facility]#: [id number] PATIENT: GUILLERMINA KELSEY : 1970 DATE DICTATED: 12/03/2021 SURGERY STAFF DAILY PROGRESS NOTE DATE OF SERVICE: 12/03/2021 I saw and evaluated the patient. I discussed management with residents, INDUSTRIAL ENERGY ENGINEER, and PAs on the Neurosurgery team and [...] MD Staff Physician Neurosurgery Service Received in Voltage Tester: 12/03/2021 18:01:00 M: /[id number] TB/MODL Bob Olvera DDS - 12/02/2021 5:58 [...] with Neurosurgery Chief Resident. Bob Olvera DDS [facility] PGY2 Neurosurgery Service Interval 24-hour Events/Subjective: No [...] extremities, strength 5/5 b/l wrist flex/ext, hand hub bander, elbow flex/ext, shoulder abduction, hip flexion, knee [...] with Neurosurgery Chief Resident. Bob Olvera DDS [facility] PGY2 Neurosurgery Service Interval 24-hour Events/Subjective: No [...] extremities, strength 5/5 b/l wrist flex/ext, hand hub bander, elbow flex/ext, shoulder abduction, hip flexion, knee [...] 3.74 (L) 12/01/2021 0028 HGB 11.2 (L) 12/01/2021 0028 HCT 34.8 [...] Blanco MD - 12/01/2021 12:00 [place] [address] [facility]#: [id number] PATIENT: GUILLERMINA KELSEY : 1970 DATE DICTATED: 12/01/2021 SURGERY STAFF DAILY PROGRESS NOTE DATE OF SERVICE: 12/01/2021 I saw and evaluated the patient. I discussed management with residents, INDUSTRIAL ENERGY ENGINEER, and PAs on the Neurosurgery team and [...] MD Staff Physician Neurosurgery Service Received in Voltage Tester: 12/01/2021 10:02:46 M: /[id number] TB/MODL Susana Taylor RN - 11/30/2021 8:10 [...] 4 extremities,strength 5/5 b/l wrist flex/ext, hand hub bander, elbow flex/ext, shoulder abduction, hip flexion, knee [...] Shelton PA-C, 11/30/2021 6:36 PM Neurosurgery Pager [phone] or [employer] documented in this encounter Procedure Notes Chandan [...] to verify the correct patient, procedure, equipment, account support specialist and site/side marked as required. Anesthesia: local [...] Tabs Take 1 tablet by mouth daily. LITHOGRAPH OPERATOR med Assessment: Pertinent points to note: No changes to LITHOGRAPH OPERATOR medications. I have reviewed the patient's medications for discharge and have discussed the necessary changes with the provider. Changes have been made and medication list updated and complete. Please page with any questions. aHttie Mathis PharmD 12/07/2021 16:17 For questions regarding this note, please contact pharmacist on service at PharmD Evening [facility] and MSO ([employer]) or [phone]. If no response within needed timeframe, please contact central pharmacy via phone at [phone]. Jacquie Link MD - 12/05/2021 5:16 PM [...] on keppra and decadron and transferred to [facility] for neurosurgical evaluation. #left temporal multifocal infiltrative [...] evidence thus far for systemic malignancy with HANDYPERSON metastatic, negative CT CAP (aside from granulomatous [...] stress). 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 Ramirez. Thank you for involving neurology in the care of this patient. Please do not hesitate to call with questions/concerns. General neurologypager [phone]. We will sign off, please page the team with new concerns or if laboratory values return abnormal. Cherelle Alvarez MD Neurology PGY-3 Seizure Safety: Per [place] regulations individuals are prohibited from operating a [...] in consultation at the request of Korin Balnco MD for the evaluation of workup of [...] brought her into a local emergency department ([facility]) that night. She was treated with keppra and steroids and subsequently transferred to [facility] for imaging findings of brain mass. Per Ms. Hargroveing she had not noticed any word finding difficulties prior to this initial event. She does not endorse any difficulties at work or with relationships, people noticing differences in language or any perceived difficulty. She does endorse that she has been having headache for few months. She describes a dull headache in the back of her head that had been responsive to iuuy-qpd-oztqfus medications. Does not endorse that the headache [...] improvement and is currently able to do Tianji (language learning software) on her phone in [...] substance use disorder who lives in a senior living. 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 Has not [...] right handed and her primary language is Samoan. PAST MEDICAL HISTORY: HTN Goiter/thyroid nodules PRIOR [...] mg, 6 mg, IV Push, q6h, Hattie dAams PA-C, 6 mg at 12/02/21 1153 ??? [...] Mother with breast cancer, father with unspecified HANDYPERSON infection. REVIEW OF SYSTEMS: Complete 10-point ROS [...] labs and imaging since admission reviewed in EPIC. Lab results: Lab Results Component Value Date/Time NA 139 12/01/2021 0028 K 4.3 12/01/2021 0028 CHLORIDE 108 12/01/2021 0028 CO2 21 (L) 12/01/202127 GLU 111 (H) [...] Brain mass or lesion please do with [employer] protocol. Comparison: Brain MRI from earlier today. Technique: Thin-section susceptibility-weighted, T1-weighted, and T2-weighted MR imaging was performed of the skull after intravenous contrast administration. The images were transferred to the ZootRockWorkstation for surgical planning. Amide proton transfer(APT)-weighted imaging [...] evidence thus far for systemic malignancy with HANDYPERSON metastatic, negative CT CAP. It is possible that sarcoidosis could have a similar presentation, so could obtain echo to assess for extra HANDYPERSON manifestations (although no pulmonary or cardiac symptoms [...] to call with questions/concerns. General neurology pager [phone]. We will continue to follow . Cherelle [...] intact Motor: Follows commands x4 extremities, 5/5 hub bander strength and plantar/dorsiflexion bilaterally Sensory: Sensation intact [...] Dunlap MD - 12/05/2021 12:00 [place] [address] [facility]#: [id number] PATIENT: GUILLERMINA KELSEY : 1970 DATE OF [...] The head was affixed to the David cathead worker. All pressure points were padded. Stealth was [...] around the edges of the tumor. The fitter machinist drill was then used to create a [...] MD Staff Physician Surgery Service Received in Voltage Tester: 12/05/2021 17:41:26 M: /[id number] AE/MODL documented in this encounter Miscellaneous Notes [...] equal, round, reactive to light. Bilateral hand waxing machine operator helper equal and strong, and plantar and dorsi [...] -- 2 Psychosocial Within Defined Limits Ludmila Neal, RN, 12/07/2021 5:05 PM Nursing Assessment - [...] Cardiac Assessment Within Defined Limits except for: Electric Detector Operator - remote telemetry Respiratory Within defined limits [...] CRANIOTOMY WITH OPEN BIOPSY WITH STEALTH - SIMPLEROBB.COMALTH MRI SCAN Completed Transferred patient due to: no longer requiring ICU care Patient Belonging 11/30/20212025 Reason for Inventory: Admission Patient or family informed of Patient Valuables and Belongings Policy (#[id number]): Policy reviewed - patient/family/designee has indicated that he/she will assume responsibility of patient valuables Transferred from Unit/Bed: [facility] Transferred to Unit/Bed: [place] [address] Received By:: Susana Liz RN A: Transferred patient from [facility] to [facility] 01 at 2255, via wheelchair. Transferred with: [...] Cardiac Assessment Within Defined Limits except for: Electric Detector Operator - bedside telemetry Lead Monitored: Lead II [...] Cardiac Assessment Within Defined Limits except for: Electric Detector Operator - bedside telemetry Lead Monitored: Lead II [...] Cardiac Assessment Within Defined Limits except for: Electric Detector Operator - bedside telemetry Lead Monitored: Lead II [...] Cardiac Assessment Within Defined Limits except for: Electric Detector Operator - bedside telemetry Lead Monitored: Lead II [...] Cardiac Assessment Within Defined Limits except for: Electric Detector Operator - bedside telemetry ECG Rhythm: normal sinus [...] Cardiac Assessment Within Defined Limits except for: Electric Detector Operator - bedside telemetry ECG Rhythm: normal sinus rhythm [place] Interval (sec): 0.19 QRS Interval (sec): 0.07 [...] Cardiac Assessment Within Defined Limits except for: Electric Detector Operator - bedside telemetry ECG Rhythm: normal sinus [...] Arevalo MD - 12/05/2021 2:[address] [facility] Immediate Post Operative Note Note written: [...] Implant Name Type Inv. Item Serial No. Africana Studies Professor Lot No. LRB No. Used Action GELFOAM(SURGIFOAM) [...] Plate STRAIGHT PLATE, 2 HOLE 421.[address] [facility] Left 2 Implanted KATERINE HOLE COVER, 17MM 421.527 Plate KATERINE HOLE COVER, 17MM 421.527 SYNTHES [place] Left 1 Implanted DURA,DURAGEN 3X3IN [id number] Duragen DURA,DURAGEN 3X3IN [id number] in2nite [id number] Left 1Implanted 4MM 400.834E Screw/[place] 4MM 400.834E SYNTHES [place] Left 9 Implanted [...] PM CDT I have reviewed today's student nurse/pharmacy intern's nursing documentation. Nicole Navarro RN 12/05/2021 15:50 Nursing Assessment - Efraín Cardenas RN - 12/05/2021 3:08 AM CDT Nursing Assessment Head to Toe Head to Toe Assessment Shift Summary D: A/O x4, neuro intact, no numbness/tingling reported, strong waxing machine operator helper/flexion. VSS, denies pain. Remains on RA, LS [...] Nursing Assessment - Kendra Stack, RN - 12/04/2021 6:38 PM CDT Nursing [...] Cardiac Assessment Within Defined Limits except for: Electric Detector Operator - bedside telemetry Respiratory Within defined limits [...] Within Defined Limits Associated attestation - Nicole Naavrro RN - 12/04/2021 3:22 PM CDT I have reviewed today's student nurse/pharmacy intern's nursing documentation. Nicole Navarro RN 12/04/2021 [...] and neck area were red, vitals stable, paged for update. Neurologic/Cognitive Within Defined Limits [...] Cardiac Assessment Within Defined Limits except for: Electric Detector Operator - bedside telemetry ECG Rhythm: normal sinus [...] 0000 until reoriented and after conversing with signwriter for a short while was more appropriate. [...] Shift Summary Pt arrived around 1800 from [place], [place] following a full at home last [...] are in OSTIC the results section. CYTOLOGY NON-JOIST SETTER Routine 12/03/2021 2:48 Results for this SPECIMEN [...] POC Glucose 124 (H) 70 - 100 [facility] MAIN mg/dL [place] - POINT OF CARE Specimen (Source) Anatomical Collection Method Collection Time Re ceived Time Location / / Volume Laterality Blood 12/06/2021 5:54 PM CDT Korin Blanco MD LABORATORY Performing Organization Address City/[facility]/ZIP Code Phon e Number [facility] - POINT OF CARE [address] [place] [address] (ABNORMAL) POC GLUCOSE (12/06/2021 11:52 AM CDT) athologist Signature POC Glucose 146 (H) 70 - 100 [facility] MAIN mg/dL [place] - POINT OF CARE Specimen (Source) Anatomical Collection Method Collection Time Re ceived Time Location / / Volume Laterality Blood 12/06/2021 11:52 AM CDT Korin Blanco MD LABORATORY Performing Organization Address City/[facility]/ZIP Code Phon e Number [facility] - POINT OF CARE [address] [place] [address] (ABNORMAL) PANEL BASIC METABOLIC (BMP) (12/06/2021 5:25 AM CDT) athologist Signature Sodium 133 (L) 135 - 148 [facility] mEq/L Potassium 4.1 3.5 - 5.3 [facility] mEq/L Chloride 100 92 - 108 [facility] mEq/L CO2 23 22 - 30 [facility] mEq/L AnGap 10 8 - 16 [facility] mEq/L Glucose 128 (H) 70 - 100 [facility] mg/dL BUN 18 6 - 20 [facility] mg/dL Creatinine 0.61 0.50 - 1.00 [facility] mg/dL Calcium 8.9 8.6 - 10.0 [facility] mg/dL eGFR, High >120 >=60 [facility] ml/min/1.73 m2 Comment: Calculated using CKD-EPI equati on eGFR, Low 105 >=60 ml/min/1.73m2 [facility] Comment: Calculated using CKD-EPI equati on Specimen Anatomical Collection Method Collection Time Receive d Time (Source) Location / / Volume Laterality Blood 12/06/2021 5:25 AM 2 5:53 CDT AM CDT Jimena Allison PA-C LABORATORY Performing Organization Address City/State/ZIP Code Phon e Number [facility] [place] [address] (ABNORMAL) CBC WITH PLATELET (12/06/2021 5:25 AM CDT) P athologist Signature WBC 18.50 (H) 4.00 - [facility] 10.00 k/cmm RBC 3.88 (L) 3.90 - 5.20 [facility] m/cmm Hgb 11.3 (L) 11.5 - 15.7 [facility] g/dL Hematocrit 34.7 34.0 - 45.0 [facility] % MCV 89.4 80.0 - [facility] 100.0 fL MCH 29.1 25.0 - 32.0 [facility] pg MCHC 32.6 31.0 - 36.0 [facility] g/dL RDW 13.4 11.5 - 14.5 [facility] % Plt 301 150 - 400 [facility] k/cmm MPV 10.6 6.5 - 12.5 [facility] fL Specimen Anatomical Collection Method Collection Time Receive d Time (Source) Location / / Volume Laterality Blood 12/06/2021 5:25 AM 2 5:43 CDT AM CDT Jimena Allison PA-C LABORATORY Performing Organization Address City/State/ZIP Code Phon e Number [facility] [place] [address] [place] [address] CT HEAD NO IV CONTRAST (12/05/2021 5:59 [...] 6 mm. 3. Unchanged 3 mm of ggbi-ci-iyzka midli ne shift. 4. Vague hypodense masslike area left te mporoparietal junction and left thalamus better characterized on prior MRI Jimena Allison was contacted by Vignesh Fowler at 7:03PM on 12/05/21 and made aware of the above finding If you are the patient, and wish to disc uss this report with a radiologist, please call [phone] between 8 am and 4 pm on [...] the hemorrhage. Unchange d 3 mm of tpfm-tu-rzrqj midline shift. H ypodense masslike at the [...] to the hemorrhage. Unchanged 3 mm of haxp-dq-fvujr midline shift. Hypodense masslike at the left [...] 6 mm. 3. Unchanged 3 mm of advw-nk-iqdfx midli ne shift. 4. Vague hypodense masslike area left te mporoparietal junction and left thalamus better characterized on prior MRI Jimena Allison was contacted by Vignesh Fowler at 7:03PM on 12/05/21 and made aware of the above finding If you are the patient, and wish to disc uss this report with a radiologist, please call [phone] between 8 am and 4 pm on regular working days. I have personally reviewed the image(s) and initial interpretation, and I agree with the findings as documented by the resident/fellow. Reading Radiologist: Kinjal Jenkins Reading Resident: Vignesh Fowler Korin Blanco MD CT NEURO (ABNORMAL) POC GLUCOSE (12/05/2021 5:14 PM CDT) athologist Signature POC Glucose 130 (H) 70 - 100 [facility] mg/dL CAMPUS - POINT OF CARE Specimen (Source) Anatomical Collection Method Collection Time Re ceived Time Location / / Volume Laterality Blood 12/05/2021 5:14 PM CDT Korin Blanco MD LABORATORY Performing Organization Address City/State/ZIP Code Phon e Number [facility] - POINT OF CARE [address] [place] [address] SURGICAL PATHOLOGY (12/05/2021 3:47 PM CDT) Component Value Ref Test Analysis Performed Pathologis t Range Method Time At [facility] SURG PATH ?Surgical Pathology Report [facility] FINAL Collection Date: ?12/05/2021 15:19 CDT ?Ordering Physician: ? DARINEL DUNLAP Received Date: ?12/05/2021 15:26 CDT ?Accession Number: ? 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 Addendum electronically signed by [...] is negative for this sample (please see [id number] for full report and interpretation). Correlation with clinical in formation, morphologic findings, and other diagnostic tests is indicated. References: 1. Terell DJ, Erick RG, Ranjan KD, et al N Engl J Med. 2015;372(26):2481-98. ?Surgical Pathology Report Collection Date: ?12/05/2021 15:19 CDT ?Ordering Physician: ? DARINEL DUNLAP Received Date: ?12/05/2021 15:26 CDT ?Accession Number: ? [id number] Addended Ancillary Studies: Please see the patient's medical records for the complete sc anned report. * ??Report Electronically Signed By ??* ?? NORBERTO ACEVEDO MD ?? 01.10.2022 9:15 ?SP Addendum Addended Ancillary Studies: Received on 12/26/21 is a an cillary report from Dr. Kofi Aleman of the [facility], [facility], [address] [place] [address], [place] [address]. MGMT PROMOTER METHYLATION (Final result) RESULTS MGMT [...] Percent Methylation Ratio (PMR) following the published [employer] procedure. PMR values great er than or [...] chemotherapy. Please see the patient's [facility] medical records for the complete scanned [...] Date: ?12/05/2021 15:26 CDT ?Accession Number: ? [id number] Final Diagnosis: A. 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 See comment. B. 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 See comment. Comment: Although [...] re port from ?Lamonte Redmond of the [facility], C422 [facility] [address], [address] [place] [address] regarding an external consultation of this case material requested by Dr. Warner. The digital marketing consultant's diagnosis i s reflected in the final diagnosis field. Please see the complete consultation report within this patient's medical record. Clinical History: Clinical Diagnosis: Brain mass VT/VT 12.06.2021 12:11 Gross Description: A. ??The specimen is receive d fresh from the Operating Room for intraoperative consultation, labeled with the patient's name and hospital ID number. ??The specimen is designated on the container as left brain ma ss. ??The specimen consists of a 0.6 x 0.4 x 0.2 cm aggregate of irregular yeepz-pink portions of soft tissue. ??Touch imprints are prepared and analyzed by Dr. Acevedo. ??The remaining spe cimen is entirely submitted for frozen section analysis on 1 aftab, with the residual frozen ti ssue subsequently submitted for permanent section in 1 cassette.( ? [facility]) B. ??The specimen is receive d [...] is entirely submitted in 2 cassettes.( ? sj) VT/VT 12.06.2021 12:11 Microscopic Description: A,B - Microscopic [...] negative for IDH1 R132H. Immunostains performed at [facility] show the neoplastic cells are positive for p53 (scattered) and the proliferation index ki-67 is moderately elevated, est imated at 20-30%. VT/VT 12.06.2021 12:11 Specimen Anatomical Collection Method Collection Time Receive d Time (Source) Location / / Volume Laterality AP SPECIMEN 12/05/2021 3:47 PM 2 3:56 CDT PM CDT Comment: Brain, left mass, biopsy Narrative This result has an attachment that is no t available. Darinel Dunlap MD LAB PATHOLOGY Performing Organization Address City/[facility]/ZIP Code Phon e Number [facility] [place] [address] TEST URINE (12/05/2021 6:36 AM CDT) athologist Signature Ur Negative Negative [facility] UPT performed [facility] at Comment: Test performed at: [facility] [address] [place] [id number] Specimen Anatomical Collection Method Collection Time Receive d Time (Source) Location / / Volume Laterality Urine 12/05/2021 6:36 AM 2 6:58 CDT AM CDT Narrative [facility] - 12/05/2021 7:53 AM CDT Needs for surgery today if has had mense s in last year. Korin Blanco MD LABORATORY Performing Organization Address [facility] Phon e Number [facility] [place] [address] COVID-19 SURVEILLANCE (12/05/2021 6:30 AM CDT) [facility] Method Time Signature COVID-19 Not Detected Not Detected [facility] Comment: This assay is an RT-PCR FDA craig roved test. Specimen (Source) Anatomical Collection Method Collection Time Re ceived Time Location / / Volume Laterality Nasopharyngeal Swab 12/05/2021 6:30 12/05 AM CDT 6:31 AM CDT Narrative [facility] - 12/05/2021 7:20 AM CDT Preferred specimen is Nasopharyngeal swab Is the patient a healthcare employee: No Is the patient a Cook ([facility] Employee : No Korin Blanco MD LABORATORY Performing Organization Address City/[facility] Phon e Number [facility] [place] [address] ANTIBODY SCREEN (12/05/2021 4:58 AM CDT) athologist Signature Mónica Screen Negative [facility] Specimen Anatomical Collection Method Collection Time Receive d Time (Source) Location / / Volume Laterality Blood 12/05/2021 4:58 AM 2 5:29 CDT AM CDT Korin Blanco MD LAB TRANSFUSION SERVICES Performing Organization Address City/[facility]/ZIP Code Phon e Number [facility] [place] [address] BLOOD TYPING-ABO/RH (12/05/2021 4:58 AM CDT) athologist Signature ABORHG O NEG [facility] Specimen Anatomical Collection Method Collection Time Receive d Time (Source) Location / / Volume Laterality Blood 12/05/2021 4:58 AM 2 5:29 CDT AM CDT Korin Blanco MD LAB TRANSFUSION SERVICES Performing Organization Address City/[facility]/ZIP Code Phon e Number [facility] [place] [address] PROTHROMBIN (PT) & INR (12/05/2021 4:58 AM CDT) athologist Signature PT 11.4 9.0 - 12.5 [facility] sec INR 1.0 0.8 - 1.1 [facility] Specimen Anatomical Collection Method Collection Time Receive d Time (Source) Location / / Volume Laterality Blood 12/05/2021 4:58 AM 2 5:43 CDT AM CDT Korin Blanco MD LABORATORY Performing Organization Address City/[facility]/ZIP Code Phon e Number [facility] [place] [address] (ABNORMAL) PANEL BASIC METABOLIC (BMP) (12/05/2021 4:58 AM CDT) P athologist Signature Sodium 140 135 - 148 [facility] mEq/L Potassium 3.9 3.5 - 5.3 [facility] mEq/L Chloride 107 92 - 108 [facility] mEq/L CO2 27 22 - 30 [facility] mEq/L AnGap 6 (L) 8 - 16 [facility] mEq/L Glucose 91 70 - 100 [facility] mg/dL BUN 29 (H) 6 - 20 [facility] mg/dL Creatinine 0.84 0.50 - 1.00 [facility] mg/dL Calcium 8.7 8.6 - 10.0 [facility] mg/dL eGFR, High 93 >=60 [facility] ml/min/1.73 m2 Comment: Calculated using CKD-EPI equati on eGFR, Low 81 >=60 ml/min/1.73m2 [facility] Comment: Calculated using CKD-EPI equati on Specimen Anatomical Collection Method Collection Time Receive d Time (Source) Location / / Volume Laterality Blood 12/05/2021 4:58 AM 5:48 CDT AM CDT Korin Blanco MD LABORATORY Performing Organization Address City/State/ZIP Code Phon e Number [facility] [place] [address] CBC WITH PLTS/AUTO DIFF (12/05/2021 4:58 AM CDT) P athologist Signature WBC 7.60 4.00 - [facility] 10.00 k/cmm RBC 3.93 3.90 - [facility] 5.20 m/cmm Hgb 11.7 11.5 - [facility] 15.7 g/dL Hematocrit 36.5 34.0 - [facility] 45.0 % MCV 92.9 80.0 - [facility] 100.0 fL MCH 29.8 25.0 - [facility] 32.0 pg MCHC 32.1 31.0 - [facility] 36.0 g/dL RDW 13.8 11.5 - [facility] 14.5 % Plt 266 150 - 400 [facility] k/cmm MPV 10.8 6.5 - 12.5 [facility] fL Automated Abs 3.46 1.70 - [facility] Neutrophil 6.50 k/cmm Comment: Preliminary ANC, Final Result t o Follow Abs Immature Granulocyte 0.04 0.00 - 0.09 k/cmm [facility] Comment: The Immature Granulocyte Absolu te count contains metamyelocytes and myelocytes. Abs Neutrophil 3.46 1.70 - 6.50 k/cmm [facility] B Abs Lymphocyte 3.47 0.80 - 4.00 k/cmm [facility] B Abs Monocyte 0.41 0.20 - 1.00 k/cmm [facility] Abs Eosinophil 0.19 0.00 - 0.60 k/cmm [facility] B Abs Basophil 0.03 0.00 - 0.20 k/cmm [facility] Specimen Anatomical Collection Method Collection Time Receive d Time (Source) Location / / Volume Laterality Blood 12/05/2021 4:58 AM 5:52 CDT AM CDT Korin Blanco MD LABORATORY Performing Organization Address City/State/ZIP Code Phon [place] [address] TRANSTHOR (TTE) COMPLETE WITH CONTRAST (12/04/2021 [...] Volume Laterality 12/03/2021 12:17 PM CDT [facility]ative [facility] 12/04/2021 12:00 AM CDT Report Status:Finalized Transthoracic Echocardiography Report (T TE) Demographics Patient Name ?COLLING GUILLERMINA Height ?65.51 Inches Patient Number ?[id number] ?Weig ht ?207.68 Pounds Date of ? 1970 ?? BSA ? 2.02 m^2 Age ? 51 ? Tape Number Gender ?Female ? Study Date ?12/04/2021 08:58 AM Faculty Physician ? BMF ?O frantz Physician ??TESFAYE LANGLEY Referring ?Interpreting ?Erick Saldana MD Physician ?Physician ? [id number] Type of Study: TTE procedure: 2D echocardiogram, M-Mode , Doppler , Color Doppler, Contrast study, ECH TRANSTHORACIC ECHO ( TTE), Myocardial Strain Imaging HR: 63 bpmBP: 118/75 mmHgPatient Status: Routine Study Location: [id number] Quality: G ood visualization Contrast Medium: Definity. [...] Signature Electronically signed by Erick Saldana MD [id number](Interpreting physician) on 2021 01:28 PM Valves Mitral [...] GUILLERMINA Height 65.51 I nches Patient Number [id number] Weight 207.68 Emerald nds Date of 1970 BSA 2.02 m^2 Age 51 Tape Number Gender Female Study Date 12/04/2021 08:5 8 AM Faculty Physician BMF Ordering Physician ARABELLA LANGLEY Referring Interpreting Beatriz Graham Physician Physician [id number] Type of Study: TTE procedure: 2D echocardiogram, M-Mode , Doppler , Color Doppler, Contrast study, ECH TRANSTHORACIC ECHO ( TTE), Myocardial Strain Imaging HR: 63 bpmBP: 118/75 mmHgPatient Status: Routine Study Location: [id number] Quality: G ood visualization Contrast Medium: Definity. [...] Signature Electronically signed by Erick Saldana MD [id number](Interpreting physician) on 2021 01:28 PM Valves Mitral [...] Organization Address City/State/ZIP Code Phon e Number [facility] ENCEPHALOPATHY, AUTOIMMUNE EVALUATION, SERUM (12/03/2021 7:15 PM CDT) Component Value Ref Test Analysis Performed At [facility] Range Method Time Signature Encephalopathy, See [facility] Interpretation Footnote LABORATORIES [address] [facility] Comment: No informative autoantibodies were detec anayeli in this evaluation. However, a negative result d oes not exclude autoimmune encephalopathy, idiopathic or paraneoplastic. Sensitivity and specificity of antibody testing are enhanced by testing both serum and CSF. AMB Receptor Ab Negative Negative [facility] [address] [facility] Comment: ADDITIONAL INFORMATIO N This test was developed and its performa nce characteristics determined by [facility] in a manner co nsistent with CLIA requirements. This test has not been nay ared or approved by the U.S. Food and Drug Administration. Amphiphysin AB Negative <1:240 titer [employer] [address] [facility] Comment: ADDITIONAL INFORMATIO N This test was developed and its performa nce characteristics determined by [facility] in a manner co nsistent with CLIA requirements. This test has not been nay ared or approved by the U.S. Food and Drug Administration. REFERENCE RANGE: ??AMPHIPHYSIN AB <1:240 = NEGATIVE AGNA 1 Negative <1:240 titer [facility] [employer] [address] [facility]TR Comment: ADDITIONAL INFORMATIO N This test was developed and its performa nce characteristics determined by [facility] in a manner co nsistent with CLIA requirements. This test has not been nay ared or approved by the U.S. Food and Drug Administration. REFERENCE RANGE: ??AGNA 1 <1:240 = NEGATIVE Polina 1 Negative <1:240 titer [facility] [employer] [address] [facility] Comment: REFERENCE RANGE: POLINA 1 <1:240 = NEGATIVE POLINA 2 Negative <1:240 titer [facility] [employer] [address] [facility]TR Comment: ADDITIONAL INFORMATIO N This test was developed and its performa nce characteristics determined by [facility] in a manner co nsistent with CLIA requirements. This test has not been nay ared or approved by the U.S. Food and Drug Administration. REFERENCE RANGE POLINA 2 <1:240 = NEGATIVE POLINA 3 Negative <1:240 titer [facility] [address] [facility] Comment: ADDITIONAL INFORMATIO N This test was developed and its performa nce characteristics determined by [facility] in a manner co nsistent with CLIA requirements. This test has not been nay ared or approved by the U.S. Food and Drug Administration. REFERENCE RANGE: ??POLINA 3 <1:240 = NEGATIVE CASPR2-IgG CBA Negative Negative [facility] DR[facility] SUPPORT CENTR Comment: ADDITIONAL INFORMATIO N This test was developed and its performa nce characteristics determined by [facility] in a manner co nsistent with CLIA requirements. This test has not been nay ared or approved by the U.S. Food and Drug Administration. CRMP-5-IGG Negative <1:240 titer [facility] [address] SU[facility] C[facility]TR Comment: ADDITIONAL INFORMATIO N This test was developed and its performa nce characteristics determined by [facility] in a manner co nsistent with CLIA requirements. This test has not been nay ared or approved by the U.S. Food and Drug Administration. REFERENCE RANGE: ??CRMP-5-IGG <1:240 = NEGATIVE DPPX Ab IFA Negative Negative [facility] [address] SUPPORT CENTR Comment: ADDITIONAL INFORMATIO N This test was developed and its performa nce characteristics determined by [facility] in a manner co nsistent with CLIA requirements. This test has not been nay ared or approved by the U.S. Food and Drug Administration. ESDRAS B Receptor Ab Negative Negative [facility] [employer] [address] [facility]TR Comment: ADDITIONAL INFORMATIO N This test was developed and its performa nce characteristics determined by [facility] in a manner co nsistent with CLIA requirements. This test has not been nay ared or approved by the U.S. Food and Drug Administration. GAD65 Ab Assay 0.00 <=0.02 nmol/L [facility] [address] SU[facility] CENTR Comment: ADDITIONAL INFORMATIO N This test was developed and its performa nce characteristics determined by [facility] in a manner co nsistent with CLIA requirements. This test has not been nay ared or approved by the U.S. Food and Drug Administration. GFAP IFA Negative Negative [facility] [address] SU[facility] CENTR Comment: ADDITIONAL INFORMATIO N This test was developed and its performa nce characteristics determined by [facility] in a manner co nsistent with CLIA requirements. This test has not been nay ared or approved by the U.S. Food and Drug Administration. IgLONS IFA Negative Negative [facility] [address] SUPPORT CENTR Comment: ADDITIONAL INFORMATIO N This test was developed and its performa nce characteristics determined by [facility] in a manner co nsistent with CLIA requirements. This test has not been nay ared or approved by the U.S. Food and Drug Administration. LGI1-IgG CBA Negative Negative [facility] [employer] [address] [facility]TR Comment: ADDITIONAL INFORMATIO N This test was developed and its performa nce characteristics determined by [facility] in a manner co nsistent with CLIA requirements. This test has not been nay ared or approved by the U.S. Food and Drug Administration. mGluR1 Ab IFA Negative Negative [facility] ORATORIES [address] SU[facility] CENTR Comment: ADDITIONAL INFORMATIO N This test was developed and its performa nce characteristics determined by [facility] in a manner co nsistent with CLIA requirements. This test has not been nay ared or approved by the U.S. Food and Drug Administration. NMDA R Ab Negative Negative [facility] [address] SU[facility] CENTR Comment: ADDITIONAL INFORMATIO N This test was developed and its performa nce characteristics determined by [facility] in a manner co nsistent with CLIA requirements. This test has not been nay ared or approved by the U.S. Food and Drug Administration. NIF IFA Negative Negative [facility] [address] SUPPORT CENTR Comment: ADDITIONAL INFORMATIO N This test was developed and its performa nce characteristics determined by [facility] in a manner co nsistent with CLIA requirements. This test has not been nay ared or approved by the U.S. Food and Drug Administration. MANAGER HOUSE 1 Negative <1:240 titer [facility] [address] SUPPORT CENTR Comment: ADDITIONAL INFORMATIO N This test was developed and its performa nce characteristics determined by [facility] in a manner co nsistent with CLIA requirements. This test has not been nay ared or approved by the U.S. Food and Drug Administration. REFERENCE RANGE: ??MANAGER HOUSE 1 <1:240 = NEGATIVE MANAGER HOUSE 2 Negative <1:240 titer [facility] [address] SUPPORT CENTR Comment: ADDITIONAL INFORMATIO N This test was developed and its performa nce characteristics determined by [facility] in a manner co nsistent with CLIA requirements. This test has not been nay ared or approved by the U.S. Food and Drug Administration. REFERENCE RANGE: ??MANAGER HOUSE 2 <1:240 = NEGATIVE MANAGER HOUSE TR Negative <1:240 titer [facility] LABO RATORIES [facility] SUPPORT CENTR Comment: ADDITIONAL INFORMATIO N This test was developed and its performa nce characteristics determined by [facility] in a manner co nsistent with CLIA requirements. This test has not been nay ared or approved by the U.S. Food and Drug Administration. Test Performed by: [address] [address] Organizational Consultant: Chintan Coronado M.D. Ph. D.; CLIA# [id number] REFERENCE RANGE: ??MANAGER HOUSE TR <1:240 = NEGATIVE Specimen Anatomical Collection Method Collection Time Receive d Time (Source) Location / / Volume Laterality Serum 12/03/2021 7:15 PM 7:01 CDT AM CDT Narrative [facility] CENTR - 12/13/2021 5:20 PM CDT Encephalopathy, Autoimmune Evaluation, Serum Name of test: ENS2 Korin Blanco MD LABORATORY Performing Organization Address City/State/ZIP Code Phon e Number [facility] [address] [place], [place] [address] [facility] CENTR INTERLEUKIN 2 RECEPTOR (CD25) SOLUBLE (12/03/2021 7:15 PM CDT) [facility] Method Time Signature Interleukin 2 332.1 175.3 - [facility] Receptor (CD25) 858.2 LABORATORIES Soluble pg/mL Comment: INTERPRETIVE INFORMATION: Cytokines Results are used to understand the patho physiology of immune, infectious, or inflammatory diso rders, or may be used for research purposes. This test was developed and its performa nce characteristics determined by [facility]. It has not been cleared or approved by the [place] Food and Drug Adminis tration. This test was performed in a CLIA certified labora tory and is intended for clinical purposes. Performed By: [facility] [address] [place] [address] [employer] Tender: Hortensia Lemon MD Specimen Anatomical Collection Method Collection Time Receive d Time (Source) Location / / Volume Laterality Serum 12/03/2021 7:15 PM 2 7:01 CDT AM CDT Korin Blanco MD LABORATORY Performing Organization Address City/State/ZIP Code Phon e Number [facility] [employer] [address] [place] [address] QUANTIFERON-TB GOLD PLUS (12/03/2021 7:15 PM CDT) [facility] Method Time Signature QuantiFERON TB Negative Negative [facility] Gold Plus QFT TB 1 -0.01 [facility] QFT TB 2 -0.01 [facility] QFT TB MITOGEN 9.97 [facility] QFT NIL 0.03 [facility] Specimen Anatomical Collection Method Collection Time Receive d Time (Source) Location / / Volume Laterality Blood 12/03/2021 7:15 PM 8:57 CDT PM CDT Korin Blanco MD LABORATORY Performing Organization Address City/State/ZIP Code Phon e Number [facility] [place] [address] XR NEEDLE PLACEMENT - SPINE (12/03/2021 [...] verify the correct patient, procedure, equipmen t, account support specialist and site/side marked as required. Anesthesia: local [...] para median. Chandan Chu MD PROCEDURES CYTOLOGY NON-JOIST SETTER SPECIMEN (12/03/2021 2:48 PM CDT) [facility] gist Method Time Signature Cytology Refrigerated [facility] Non-Spray Crew Specimen Specimen Anatomical Collection Method Collection Time Receive d Time (Source) Location / / Volume Laterality CSF 12/03/2021 2:48 PM 2 3:17 CDT PM CDT Comment: CYTOLOGY NON-JOIST SETTER SPECIMEN Narrative [facility] - 12/03/2021 3:17 PM CDT Both orders are required to process Cytology/Non-JOIST SETTER panel. Please do not discontinue either order. 1. Cytology Non-JOIST SETTER 2. Cytology Non-JOIST SETTER Specimen . Korin Blanco MD LAB PATHOLOGY Performing Organization Address City/State/ZIP Code Phon e Number [facility] [place] [address] [place] [address] MISCELLANEOUS LAB (12/03/2021 2:48 PM CDT) [facility] Method Time Signature [facility] Sendout See Comment See Comment MISCELLANEOUS REFERENCE LABORATORY Comment: Meningitis/Encephalitis Panel by PCR [facility] test code [id number] Escherichia coli K1 by PCR Not Detected [...] MISCELLANEOUS REFERENCE LABORATORY - 7:29 AM CDT [place] [facility] Meningitis/Encephalitis Pathogen Panel, PCR, Spinal Fluid Reference Lab: [facility] Test Name: ABOVE Reference Lab test code: [id number] Reflex testing available (Y/N): N Expected TAT: 2 DAYS Temp: ??R Korin Blanco MD LABORATORY Performing Organization Address City/State/ZIP Code Phon e Number MISCELLANEOUS REFERENCE LABORATORY MISCELLANEOUS REFERENCE See Comment for Lab LABORATORY Address CSF CULTURE:INCLUDES GRAM STAIN (12/03/2021 2:48 PM CDT) [facility] Method Time Signature Final Report No growth. [facility] Gram Stain No PMN's seen. [facility] Report No organisms seen. Specimen Anatomical Collection Method Collection Time Receive d Time (Source) Location / / Volume Laterality CSF 12/03/2021 2:48 PM 2 3:26 CDT PM CDT Narrative [facility] - 12/06/2021 10:02 AM CDT Was CSF taken from a shunt: No Korin Blanco MD LAB MICROBIOLOGY Performing Organization Address City/[facility]/ZIP Code Phon e Number [facility] [place] [address] BODY FLUID CELL COUNT/DIFF (12/03/2021 2:48 PM CDT) [facility] Method Time Signature Fluid Type CF CSF [facility] Volume CF 20 mL [facility] Appearance CF Clear [facility] Color bf Colorless [facility] Tube # CSF Tube 4 [facility] RBC CSF <1,000 cells/ul [facility] Nuc Ct CSF 1 cells/ul [facility] Neutrophil CSF 0 % [facility] Lymphocytes CSF 100 % [facility] Specimen Anatomical Collection Method Collection Time Receive d Time (Source) Location / / Volume Laterality CSF 12/03/2021 2:48 PM 2 3:17 CDT PM CDT Korin Blanco MD LABORATORY Performing Organization Address [facility] Code Phon e Number [facility] [place] [address] OLIGOCLONAL BANDS CSF (12/03/2021 2:48 PM CDT) [facility] Signature Oligoc Band CSF Negative [facility] [...] will have a negative result. Performed By: [employer] [address] [place] [address] Lime Vat Tender: Hortensia Lemon MD Specimen Anatomical Collection Method Collection Time Receive d Time (Source) Location / / Volume Laterality CSF 12/03/2021 2:48 PM 2 3:17 CDT PM CDT Korin Blanco MD LABORATORY Performing Organization Address City/[facility]/ZIP Code Phon e Number [employer] [address] [place] [address] PROTEIN, CSF (12/03/2021 2:48 PM CDT) athologist Signature Protein Total 34 15 - 45 [facility] CSF mg/dL Specimen Anatomical Collection Method Collection Time Receive d Time (Source) Location / / Volume Laterality CSF 12/03/2021 2:48 PM 2 3:17 CDT PM CDT Korin Blanco MD LABORATORY Performing Organization Address City/[facility]/ZIP Code Phon e Number [facility] [place] [address] (ABNORMAL) GLUCOSE, CSF (12/03/2021 2:48 PM CDT) athologist Signature Glucose CSF 82 (H) 40 - 70 [facility] mg/dL Comment: GLUCOSE CSF REFERENCE RANGES: 60% - 70% of the plasma level at the nisha e the spinal tap is performed Specimen Anatomical Collection Method Collection Time Receive d Time (Source) Location / / Volume Laterality CSF 12/03/2021 2:48 PM 2 3:17 CDT PM CDT Korin Blanco MD LABORATORY Performing Organization Address City/[facility]/ZIP Code Phon e Number [facility] [place] [address] FLOW CYTOMETRY (12/03/2021 1:10 PM CDT) Component Value Ref Test Analysis Performed At [facility] gist Range Method Time Signature FC Report ?Flow Cytometry Report [facility] Collection Date: ?12/03/2021 13:10 CDT ?Ordering Physician: ? KORIN BLANCO Received Date: ?12/03/2021 16:18 CDT ?Accession Number: ? [id number] ?FC Final Report Clinical History: Clinical history per [facility] medical records: 51-year-old female with brain [...] and the cell populations were evaluated using [employer] analysis software. The total cell count in thi s study was 1/microliter after lysis of red cells. Cell viability was 100%. This test was developed and its performance characteristics determined by the ? Cook ?? [facility] Flow Cytometry Laboratory. ??It has not [...] Blanco MD LAB PATHOLOGY Performing Organization Address City/[facility]/ZIP Code Phon e Number [facility] [place] [address] CYTOLOGY NON-JOIST SETTER (12/03/2021 1:10 PM CDT) Component Value Ref Test Analysis Performed At [facility] Range Method Time Signature Non Spray Crew ?Non Spray Crew Report [facility] Report Collection Date: ?12/03/2021 13:10 CDT ?Ordering Physician: ? KORIN BLANCO Received Date: ?12/04/2021 11:48 CDT ?Accession Number: ? [id number] ?Non Gynecologic Cytology Final Report Specimen Type: Cerebral Spinal Fluid Final Diagnosis: Negative for malignant cells. * ??Report Electronically Signed By ??* ?? Renetta Warner M.D. ?? Screening Performed By: ?? ALYSE Hill(ASCP) ?? [facility] 12.05.2021 15:22 Clinical History & Gross Description: [...] Blanco MD LAB PATHOLOGY Performing Organization Address City/[facility]/ZIP Code Phon e Number [facility] [place], [place] [address] [place] [address] HIV COMBO (12/03/2021 6:41 AM CDT) [facility] Method Time Signature HIV Nonreactive Nonreactive [facility] Antigen-Antib shannan Comment: Performance characteristics hav e not been established with this test on patients less than 2 years of age. Specimen Anatomical Collection Method Collection Time Receive d Time (Source) Location / / Volume Laterality Blood 12/03/2021 6:41 AM 2 7:17 CDT AM CDT Korin Blanco MD LABORATORY Performing Organization Address City/[facility]/ZIP Code Phon e Number [facility] [place] [address] HEPATITIS B SURFACE ANTIGEN (12/03/2021 6:41 AM CDT) [facility] Method Time Signature HBV Surface Nonreactive Nonreactive [facility] Ag Specimen Anatomical Collection Method Collection Time Receive d Time (Source) Location / / Volume Laterality Blood 12/03/2021 6:41 AM 2 7:17 CDT AM CDT Korin Blanco MD LABORATORY Performing Organization Address City/[facility]/ZIP Code Phon e Number [facility] [place] [address] HEPATITIS C ANTIBODY WITH CONDITIONAL PCR (12/03/2021 6:41 AM CDT) Analysis Performed At Path logist Time Signature Hep C Mónica Nonreactive Nonreactive [facility] Comment: Performance characteristics hav e not been established with this test on patients less than 10 years of age. Specimen Anatomical Collection Method Collection Time Receive d Time (Source) Location / / Volume Laterality Blood 12/03/2021 6:41 AM 2 7:17 CDT AM CDT Korin lBanco MD LABORATORY Performing Organization Address City/[facility]/ZIP Code Phon e Number [facility] [place] [address] HEPATITIS B SURFACE ANTIBODY (12/03/2021 6:41 AM CDT) P athologist Signature HBV Surface Reactive [facility] Mónica Comment: Reactive implies immunity. Specimen Anatomical Collection Method Collection Time Receive d Time (Source) Location / / Volume Laterality Blood 12/03/2021 6:41 AM 2 7:17 CDT AM CDT Korin Blanco MD LABORATORY Performing Organization Address City/State/ZIP Code Phon e Number [facility] [place] [address] CHEST/ABD/PELVIS W/IV CONT (12/01/2021 9:13 [...] or pelvis. Reading Radiologist: Harrison Umana Hattie CHAPA-Rusty CT BODY ANTIBODY SCREEN (12/01/2021 12:28 AM CDT) athologist Signature Mónica Screen Negative [facility] Specimen Anatomical Collection Method Collection Time Receive d Time (Source) Location / / Volume Laterality Blood 12/01/2021 12:28 12/01/2021 AM CDT 12:55 AM CDT Hattie Adams PA-C LAB TRANSFUSION SERVICES Performing Organization Address City/[facility] Phon e Number [facility] [place] [address] BLOOD TYPING-ABO/RH (12/01/2021 12:28 AM CDT) athologist Signature ABORHG O NEG [facility] Specimen Anatomical Collection Method Collection Time Receive d Time (Source) Location / / Volume Laterality Blood 12/01/2021 12:28 12/01/2021 AM CDT 12:55 AM CDT Hattie ANDREC LAB TRANSFUSION SERVICES Performing Organization Address City/[facility]/ZIP Code Phon e Number [facility] [place] [address] PTT (APTT) (12/01/2021 12:28 AM CDT) athologist Signature APTT 34.2 25.0 - 37.0 [facility] sec Specimen Anatomical Collection Method Collection Time Receive d Time (Source) Location / / Volume Laterality Blood 12/01/2021 12:28 12/01/2021 1:00 AM CDT AM CDT Hattie ANDREC LABORATORY Performing Organization Address City/State/ZIP Code Phon e Number [facility] [place] [address] PROTHROMBIN (PT) & INR (12/01/2021 12:28 AM CDT) P athologist Signature PT 12.0 9.0 - 12.5 [facility] sec INR 1.0 0.8 - 1.1 [facility] Specimen Anatomical Collection Method Collection Time Receive d Time (Source) Location / / Volume Laterality Blood 12/01/2021 12:28 12/01/2021 1:00 AM CDT AM CDT Hattie Adams PA-C LABORATORY Performing Organization Address [facility] Phon e Number [facility] [place] [address] (ABNORMAL) PANEL BASIC METABOLIC (BMP) (12/01/2021 12:28 AM CDT) athologist Signature CO2 21 (L) 22 - 30 [facility] mEq/L Glucose 111 (H) 70 - 100 [facility] mg/dL BUN 10 6 - 20 [facility] mg/dL Creatinine 0.62 0.50 - 1.00 [facility] mg/dL Calcium 8.6 8.6 - 10.0 [facility] mg/dL eGFR, High >120 >=60 [facility] ml/min/1.73 m2 Comment: Calculated using CKD-EPI equati on Sodium 139 135 - 148 mEq/L [facility] Potassium 4.3 3.5 - 5.3 mEq/L [facility] Chloride 108 92 - 108 mEq/L [facility] eGFR, Low 105 >=60 ml/min/1.73m2 [facility] Comment: Calculated using CKD-EPI equati on AnGap 10 8 - 16 mEq/L [facility] Specimen Anatomical Collection Method Collection Time Receive d Time (Source) Location / / Volume Laterality Blood 12/01/2021 12:28 12/01/2021 1:00 AM CDT AM CDT Hattie Adams PA-C LABORATORY Performing Organization Address City/[facility]/ZIP Code Phon e Number [facility] [place] [address] (ABNORMAL) CBC WITH PLATELET (12/01/2021 12:28 AM CDT) P athologist Signature WBC 7.51 4.00 - [facility] 10.00 k/cmm RBC 3.74 (L) 3.90 - 5.20 [facility] m/cmm Hgb 11.2 (L) 11.5 - 15.7 [facility] g/dL Hematocrit 34.8 34.0 - 45.0 [facility] % MCV 93.0 80.0 - [facility] 100.0 fL MCH 29.9 25.0 - 32.0 [facility] pg MCHC 32.2 31.0 - 36.0 [facility] g/dL RDW 13.8 11.5 - 14.5 [facility] % Plt 271 150 - 400 [facility] k/cmm MPV 10.9 6.5 - 12.5 [facility] fL Specimen Anatomical Collection Method Collection Time Receive d Time (Source) Location / / Volume Laterality Blood 12/01/2021 12:28 12/01/2021 1:00 AM CDT AM CDT Hattie Adams PA-C LABORATORY Performing Organization Address City/State/ZIP Code Phon e Number [facility] [place] [address] MR BRAIN W/O + WITH CONTRAST [...] wi th the images transferred to the [employer] Workstation for surgical planning. Amide proton transfer(APT)-weighted [...] abnormally increased APT signal is evident. Trace xarf-mu-toqiu midline shift withou t herniation. No hydrocephalus [...] gadolinium, with the images transferred to the [employer] Workstation f or surgical planning. Amide proton [...] abnormally increased APT signal is evident. Trace tebf-hn-mfngt midline shift withou t herniation. No hydrocephalus [...] mmHg HYDROmorphone PF (DILAUDID) 1 mg/mL injection Given [...] comment) - Comment: says was removed by EQUINE BREEDER prior to patient arriving in unit.)2339 (Given [...] at 2045 levETIRAcetam (KEPPRA) tablet 1,000 mg 075 (Given - P rovider: Josh Tobar RN)2031 [...] dyson RN) 1815 (Given - Provider: Mandy [place] RN) 0000 (Given - Provider: Hattie Maloney RN)0341 (Given - Provider: Hattie Maloney RN)0938 (Given - Provider: Ludmila Neal RN)1459 (Given [...] mg 0900 (Given - Provider: Meche Devi RN)123 (Given - Provider: Meche Devi RN)181 (Given - Provider: Mandy [place] RN)2028 (Given - Provider: Cynthia Mahmood, RN) 0.4-0.6 mg, IV Push, Q2H PRN, [...] miller RN)1233 (Given - Provider: Meche Devi RN)1815 (Given - Provider: Mandy [place] RN) 4 [...] Provider: Mandy [place] RN)2028 (Given - Provider: Chinonso E Anunkor, RN) 0000 (Given - Provider: Hattie miller [...]
--- OUTSIDE RECORDS SUMMARY | 2022-04-10 09:35 | XMS_ITS | Encounter Summary ---
:1970 Author Organization [facility] Address [address] [place] [address] Care Team Providers Name Role Phone Unavailable Primary Care Provider Unavailable Encounter Details Date Type Department Care Team Description 12/07/2021 Lab [facility] Brain mass (Primary Dx) Laboratory [address] [place], [place] [phone] Social History Tobacco Use Types Packs/Day Years Used Date Never Assessed Sex Assigned at Date Recorded Not on file documented as of this encounter Plan of Treatment Not on filedocumented as of this encounter Procedures Procedure Name Priority Date/Time Associated Comments Diagnosis MGMT PROMOTER Routine 12/14/2021 3:28 PM Brain mass Results for this METHYLATION TUMOR CDT procedure are in the results section. GLIOMA PANEL FOCUSED Routine 12/14/2021 3:28 PM Brain mass R esults for this NGS PANEL CDT procedure are i n the results section. PATHOLOGY CONSULT Routine 12/07/2021 2:42 PM Brain mass Resu lts for this CDT procedure are i n the results section. documented in this encounter Results MGMT Promoter Methylation Tumor (12/14/2021 3:28 PM CDT) Component Value Ref Test Analysis Performed At [facility] gist Range Method Time Signature RESULTS MGMT promoter [...] abnormalities that would not be detected. Tumor cellulari ty, intra-tumoral heterogene ity, and the quality of extracted DNA from FFPE samples may impact the accuracy of results. The dynamic range of this assay can detect a minimum relative fraction of 3% methy lated alleles in the backgro und of 97% unmethylated alleles; however, a minimum [...] older than 60 years with glioblastoma: the [place] randomiz ed, phase 3 trial. Lancet Oncol. [...] me lting, and immunohistochemis try) to analyze P8-iditwunrfmapl-CTN-methyltranferase in a series of 100 glioblastoma patients. Cancer. 2012;118(17):4201-11. DISCLAIMER This test was developed and its performance characteristics determined by [facility]. It has not been cleared or approved by the FDA. The laboratory is regulated 12/14/2021 atokore under CLIA as qualified to perform high-complexity [...] or confirmed the interpretation(s). Specimen Tissue: Fixed [id number] A2, :Brain, left mass, CASE FROM [place], [place] [id number], OBTAINED 12/05/2021 12/14/2021 MOLECULAR Description [id number] A2 3:28 PM DIAGNOSTICS CDT (LDL) Specimen Anatomical Collection Method Collection Time Receive d Time (Source) Location / / Volume Laterality Fixed Tissue Non-blood 12/14/2021 3:28 PM 2 Collection / CDT 12:03 PM CDT Unknown Renetta Warner MD LAB - GENOMICS Performing Organization Address City/State/ZIP Code Phon e Number MOLECULAR DIAGNOSTICS [place] [address] (LDL) Diagnostics [address] [facility], Room 3-580 Glioma Panel Focused NGS Panel (12/14/2021 3:28 PM CDT) Component Value Ref Test Analysis Performed At [facility] gist Range Method Time Signature Significant Detected [...] is negative for this sample (please see [id number] for full report and interpretation). Correlation with [...] an amplicon-based target enrichment method using a [employer] microfluidics systems or a custom developed low-inpu t PCR method. The enriched D NA libraries are sequenced on an Illumina MiSeq instrument, and FASTQ files are processed through a custom designed bioinformatics pipeline [based on methods described in Miguel joyner et al. Genome Med. 2015 do i: 10.1186/g91604-065-6205-1 and Slim et al. Eloise. Transl. Med. 2018 doi: 10.67840/lilly.201805.07]. Amplicons with less than 500X minimum coverage are flagged for limited a nalytic performance. Variant call files (vcf) are filtered to remove calls with variant allele fractions (VAF) less than thresholds defined for single nucleotide variants (5-10%) and insertion/deletion variants (1-5%). Clinically relevant mutations from this filtered variant list are annotated by a pathologist with [employer] software and reported. The assay bed file [...] and its performance characteristics determined by the [facility], Molecular Diagnostics Laboratory. It has not been cleared or approved by the FDA. [facility] laboratory is regulated un john CLIA as [...] (iii) rendered or confirmed the interpretation(s). --------- [employer] Disclaimer --------- This report was produced [employer] software licensed by [employer]. [employer] software is designed to be used in clinical applications solely as a tool to enhance medical utility and improve operatio nal efficiency. The use of Isabella Oliver software is not a substitute for medical judgment and [employer] in no way holds itself out as having or providing independent medical judgment or diagnostic services. [employer] is n ot liable with respect to any treatment or diagnosis made in connection with this report. [employer] Rules Version: rules-0014 [employer] Application Version: [id number] 17-48 --------- Electronic Signature --------- Electronically signed/cosigned by: Clayton Hoover MD 01/02/22 Specimen Tissue: Fixed [id number] A2, :Brain, left mass, CASE FROM [place], [place] [id number], OBTAINED 12/05/2021 12/14/2021 MOLECULAR Description [id number] A2 3:28 PM DIAGNOSTICS CDT (LDL) Specimen Anatomical Collection Method Collection Time Receive d Time (Source) Location / / Volume Laterality Fixed Tissue TOPOGRAPHY UNKNOWN Non-blood 12/14/2021 3:28 PM / Unknown Collection / CDT 12:02 PM CDT Unknown Renetta Warner MD LAB - GENOMICS Performing Organization Address City/State/ZIP Code Phon e Number MOLECULAR DIAG[place]ST[place] [address] (LDL) Diagnostics [address] [facility], Room 3-580 (ABNORMAL) Pathology Consult (12/07/2021 2:42 PM CDT) Component Value Ref Test Analysis Performed Pathologis t Range Method Time At Signature Case Report Consult Report ?Case: [id number] ? 02/04/2022 Authorizing Provider: ??Renetta Peralta MD ?Collected: ? 12/07/2021 02:42 PM ? 11:48 AM SPECIA LTY Ordering Location: ? [facility] ? Received: ?12/07/2021 02:43 PM ? CDT LABS ? [facility] ? Pathologist: ? Lamonte Redmond MD ? Specimen: ?Consult Slide , [id number] ? 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 11:48 AM SPECIALTY electronically [...] gene methylation is NEGATIVE. Final CASE FROM [place], [place] ([id number], OBTAINED 12/05/2021): 02/04/2022 Electr onically Diagnosis A-B. 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 See comment. CDT LABS [...] be reported in an addendum. Original Case [id number] 02/04/2022 [facility] ID 11:48 AM SPECIALTY CDT LABS Material 5 slides 02/04/2022 UM Submitted 11:48 AM SPECIALTY CDT LABS Clinical The patient is a 51-year-old female 01/23 UM Information 11:48 AM SPECIALTY CDT LABS Gross Received from [facility] in [place], [place] are 5 stained slides labeled [id number] (obtained 12/05/2021), and copies of the referring [...] negative for IDH1 R132H. Immunostains performed at [facility] show the neoplastic cells are positive for p53 (scattered) and the proliferation index ki-67 is moderately elevated, estimated at 20-30%. Disclaimer Analyte Specific Reagents (A SRs) are used in many laboratory tests necessary for standard medical care and generally do not require FDA approval. This test was developed and its performance characterist 02/04/2022 ics determined by [facility]. It has not been cleared or approved by the U.S. Food and Drug Administration. [facility] are certified for the pe 11:48 AM SPECIALTY rformance of high-complexity clinical testing under the Clinical Laboratory Improvement Amendments of 1988 (CLIA), and in keeping with the certification requirements, the laboratory has verified this te CDT LABS st's accuracy, precision and/or validity of the method. MCRS Yes (A) N/A 02/04/2022 UM 11:48 AM SPECIALTY CDT LABS Performing The technical 02/04/2022 [facility] Labs component of this 11:48 AM SPECIALTY testing was completed CDT LABS at [facility] Specimen Anatomical Collection Method Collection Time Receive d Time (Source) Location / / Volume Laterality Slides SLIDE / Unknown 12/07/2021 2:42 PM 2021 2:43 CDT PM CDT Renetta Warner MD LAB - [facility] Performing Organization Address City/State/ZIP Code Phon e Number [facility] [place] [address] [address] [facility] [address], Room 3-580 documented in this encounter Visit Diagnoses Diagnosis Brain mass - Primary Unspecified condition of brain documented in this encounter
--- OUTSIDE RECORDS SUMMARY | 2022-04-10 09:35 | XMS_ITS | Encounter Summary ---
:1970 Author Organization [facility] Address [address] [place] [address] Care Team Providers Name Role Phone No Ref-Primary, Physician Primary Care Provider [phone] Shelbie Ackerman MD Unavailable [phone] Reason for Visit Reason Onset Date Comments Prior Auth - Medication 12/31/2021 Erroneous encounter-disregard 12/31/2021 Encounter Details Date Type Department Care Team Description 12/31/2021 Telephone [facility] Hattie Kelly Prior Auth - [facility] Medication; Erroneous [address] [facility] [place] [address] Social History Tobacco Use Types [...] on filedocumented in this encounter Care Teams Chute Puller Relationship Specialty Start Date End Date No Ref-Primary, Physician PCP - General 12/19/21 Shelbie Ackerman, Assigned Neuroscience 2 MD Provider [address] [place] [address] documented as of this encounter
--- OUTSIDE RECORDS SUMMARY | 2022-04-10 09:35 | XMS_ITS | Encounter Summary ---
:1970 Author Organization [facility] Address [address] [place] [address] Phone Care Team Providers Name Role Phone [...]
--- OUTSIDE RECORDS SUMMARY | 2022-04-10 09:35 | XMS_ITS | Encounter Summary ---
:1970 Author Organization [facility] Address [address] [place] [address] Care Team Providers Name Role Phone No Ref-Primary, Physician Primary Care Provider [phone] Reason for Visit Reason Comments *-*INCOMING RECORDS*-* Encounter Details Date Type Department Care Team Description 12/20/2021 Documentation Only [facility] Provider, Generic *-*INCOMING [facility] External Data RECORDS*-* Clinic [address] [place] [phone] Social History Tobacco Use Types Packs/Day [...] CE, image request sent to [facility] and [facility] documented in this encounter Plan of Treatment Not on filedocumented as of this encounter Visit Diagnoses Not on filedocumented in this encounter Care Teams News Commentator Relationship Specialty Start Date End Date No Ref-Primary, Physician PCP - General 12/19/21 documented as of this encounter
--- OUTSIDE RECORDS SUMMARY | 2022-04-10 09:35 | XMS_ITS | Encounter Summary ---
:1970 Author Organization [place] Address [address] [place] [address] Care Team Providers Name Role Phone No Ref-Primary, Physician Primary Care Provider [phone] Reason for Referral Consultation (Routine: Next available opening) - Pending Review Specialty Diagnoses / Procedures Referred By Contact Refer red To Contact Diagnoses Astrocytoma (H) Shelbie Ackerman MD [address] [place] [address] 7145 5 Referral ID Status Reason Start Date Expiration Date Visits V isits Requested Authorized [id number] Pending 12/24/2021 12/24/2022 1 1 Review Reason for Visit Reason Comments Oncology Clinic Visit Astrocytoma Consultation (Routine) - Pending Review Specialty Diagnoses / Procedures Referred By Contact Refer red To Contact Medical Oncology Diagnoses Astrocytoma (H) Shelbie Ackerman MD [address] [place] [address] 8545 5 Referral ID Status Reason Start Date Expiration Date Visits V isits Requested Authorized [id number] Pending 12/19/2021 12/19/2022 1 1 Review Encounter Details Date Type Department Care Team Description 12/24/2021 Oncology Visit [facility] Shelbie Ackerman Chemo therapy-induced nausea and vomiting (Primary Dx); Sami Thao MD Astrocytoma (H); Clinic [address] [place] [address] High risk for chemotherapy-induced infec tious complication; [address] [place] [address] Antineo plastic chemotherapy induced pancytopenia (H); [phone] Screening for viral disease; [place], [place] [phone] 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 Wt Readings [...] month. To my eye, there is a non- contrast enhancing left temporal mass with extension into [...] with chemoradiotherapy. Referral to radiation oncology at [facility] for discussion about the use of [...] not needed today. Pharmacy name entered into [facility]: [facility] [address] [place] [address] Clinical concerns: none Chiquita Bernard CMA documented [...] (H) documented in this encounter Care Teams Chief Business Officer Relationship Specialty Start Date End Date No Ref-Primary, Physician PCP - General 12/19/21 documented as of this encounter
--- OUTSIDE RECORDS SUMMARY | 2022-04-10 09:35 | XMS_ITS | Encounter Summary ---
:1970 Author Organization [place] Address [address] [place] [address] Care Team Providers Name Role Phone No Ref-Primary, Physician Primary Care Provider [phone] Encounter Details Date Type Department Care Team Description 12/25/2021 [facility] Astrocytoma (H) (Primary Dx) [facility] [address] [place], [place] [phone] Social History Tobacco Use [...] Associated Comments Diagnosis LABORATORY Routine 12/25/2021 4:26 PM Astrocytoma (H) Result s for this MISCELLANEOUS ORDER CDT procedur e are in the results section. [place] MISCELLANEOUS Routine 12/25/2021 4:26 PM Astrocytoma (H) Results for this TEST CDT procedure are i n the results section. 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 ?The following CLINICALLY RELEVANT VARIANTS were identified: ?Gene: TERT ?DNA Change: c.-124C>T (also known as C228T) ?Gene: CHEK2 ?DNA Change: c.1100del ?Amino Acid Change: p.A564Oda*15 (T pj689Wsdsv*15) ?Gene: LZTR1 ?DNA Change: c.27dup ?Amino Acid Change: p.Q10Afs*24 (Gl y49Iairx*24) ?Gene: SETD2 ?DNA Change: c.1748_1751del ?Amino Acid Change: p.Q481Gjg*17 (L dq300Uatwa*17) ?The following VARIANTS OF UNCERTAI N SIGNIFICANCE were ?identified: ?Gene: CIC ?DNA Change: c.4627A>G ?Amino Acid Change: p.P1435Y (Thr15 43Ala) ?Gene: ARID2 ?DNA Change: c.3202C>T ?Amino Acid Change: p.Y3954E (Arg10 68Cys) ?Gene: GLI2 ?DNA Change: c.4464G>T ?Amino Acid Change: p.H4063A (Leu14 88Phe) ?NO reportable SEQUENCE VARIANTS we re identified involving ?the remaining tested genes, includ ing IDH1, IDH2, H3-3A ?(previously H3F3A), ATRX, and TP53 . ?FUSION testing FAILED after multip le attempts due to ?insufficient amplifiable RNA. Plea se send additional ?formalin fixed material if testing is still desired. Refer ?to [facility] (Otero test I D NONCP) or call [...] cancer-beta.jaden.ac.uk/cosmic ; Nucleic Acids Res. 2017 ?Aug 28;45(D1):H889-E828 (PMID 59536 578) ?2. Proc Natl Acad Sci U S A. Nov;110(15):6021-6 ?(PMID 06763877) ?3. Acta Neuropathol. Jul 2013;126( 6):907-15 (PMID 42460532) ?4. Acta Neuropathol. Oct 24 2017; (PMID 20111807) ?5. Mol Cancer Res. Nov 2015;14(4): 315-23 (PMID 19128800) ?6. Science. Oct 16 2012;339(3394): 959-61 (PMID 16888243) ?7. Science. Oct 16 2012;339(1265): 957-9 (PMID 65437309) ?8. Eur J Cancer. December 2014;51(8):96 9-76 (PMID 61801364) ?9. Cell. Sep 21 2016;164(3):550-63 (PMID 89522234) ?10. Acta Neuropathol. Jul 2013;126 (6):931-7 (PMID 26934412) ?11. Cell. Jun 03 2013;155(2):462-7 7 (PMID 14979944) ?12. N Engl J Med. Feb 16 2015;372( 26):2481-98 (PMID ?71251832) ?13. N Engl J Med. Feb 16 2015;372( 26):2499-508 (PMID ?44120628) ?14. Acta Neuropathol. Jan 2017;133 (6):1001-16 (PMID ?13231363) ?15. Acta Neuropathol. May 20 2018; (PMID 16340364) ?ASSOCIATIONS BETWEEN CHEK2 MUTATIO NS AND DIFFUSE GLIOMAS ?Estimated somatic mutation frequen cy data for CHEK2 gene in ?diffuse gliomas are not available (1). CHEK2 encodes a ?serine/threonine-protein kinase th at functions as a ?transducer kinase required for DNA damage checkpoint ?response (2, 3). CHEK2 functions a s a tumor suppressor and ?inactivation through ubrh-nl-otlyu ion mutations results in ?genome instability and contributes to tumorigenesis (4, 5). ?Germline (i.e. constitutional) JEIMY K2 mutations are ?associated with increased risk for development of some ?tumor types including breast, pros barrett and colorectal ?cancer (6). The p.J607Vqv*15 (c.11 00del) alteration is ?predicted to result [...] note, the variant frequency at which the p.H873Ojq*15 ?(c.1100del) alteration was identif ied raises the ?possibility that this mutation may be germline rather than ?somatic in origin. This test does not distinguish between ?germline and somatic alterations. Consider follow-up ?germline testing on a blood sample in conjunction with ?genetic counseling as, if germline in origin, the ?p.X422Txr*15 (c.1100del) mutation may indicate increased ?risk for certain tumor types and w arrant appropriate ?screening procedures and/or prophy lactic measure. ?Currently, there are no known clin ically approved therapies ?that specifically target CHEK2 mut ations. ?REFERENCES ?1. cbioportal.org (Version 1.5.1); Cancer discov. ?2012;2(5):401-4 (PMID 84234762); S ci Signal. ?2012;6(269):pl1 (PMID 91704622) ?2. Zoë Rev Cancer. Jul 2007;7(12): 925-36 (PMID 23919277) ?3. J Mol Cell Biol. Jul 2014;6(6): 442-57 (PMID 91164040) ?4. Zoë Cell Biol. December 2009;12(5):4 92-9 (PMID 88657700) ?5. Cancer Cell. Aug 07 2010;18(6): 619-29 (PMID 60916982) ?6. Am J Hum Tori. Jul 2004;75(6): 1131-5 (PMID 26013181) ?7. Cancer Res. May 09 2006;66(18): 8911-70 (PMID 62515035) ?8. cancer-beta.jaden.ac.uk/[facility] ; Nucleic Acids Res. 2017 ?Aug 28;45(D1):Z059-F788 (PMID 26645 578) ?9. Am J Hum Tori. Mar 2002;71(2): 432-8 (PMID 10404278) ?10. Acta Neuropathol. December 2012;125 (5):659-69 (PMID 17105831) ?ASSOCIATIONS BETWEEN LZTR1 MUTATIO NS AND DIFFUSE [...] specifically target LZTR1 mut ations. ?REFERENCES ?1. cancer-beta.jaden.ac.uk/[facility] ; Nucleic Acids Res. 2016 ?Aug 28;45(D1):R258-X111 (PMID 50679 578) ?2. cbioportal.org (Version 1.5.1); Cancer discov. ?2011;2(5):401-4 (PMID 54111879); S ci Signal. ?2013;6(269):pl1 (PMID 71258496) ?3. J Biol Chem. Oct 18 2005;281(3) :1552-14 (PMID 63557811) ?4. Zoë Tori. May 2013;45(10):1141 -9 (PMID 31544231) ?ASSOCIATIONS BETWEEN SETD2 MUTATIO NS AND DIFFUSE GLIOMAS ?Approximately 1.5-6% of individual s with a diffuse glioma ?have a somatic mutation in the SET D2 gene (1-3). SETD2 ?encodes a methyltransferase that t rimethylates K36 of ?histone H3 (K3C70bt3) as well as o ther proteins such as ?tubulin (4-6). SETD2 acts as a andrews or suppressor through ?creation of the G3Z97ub5 micheal, whi ch is involved in ?chromatin structure and transcript ion regulation, and DNA ?mismatch (S3U97iv0 micheal is require d for MSH6 recruitment to ?the MutS alpha complex) and double -strand break repair ?(7-10). Functional loss of SETD2 r esults in decreased ?O2Y93fn9 and genomic instability, contributing to ?tumorigenesis (11, [...] ?1. https://cancer.jaden.ac.uk/cos janneth; Nucleic Acids Res. ?2016Aug 28;45(D1):L348-N076 (PMID 31773682) ?2. cbioportal.org (Version 1.5.1); Cancer discov. ?2011;2(5):401-4 (PMID 15909518); S ci Signal. ?2013;6(269):pl1 (PMID 35400429) ?3. Acta Neuropathol. December 2012;125( 5):659-69 (PMID 76998658) ?4. EMBO J. Sep 16 2007;27(2):406-2 0 (PMID 04983619) ?5. Cell. Apr 04 2016;166(4):950-62 (PMID 57796410) ?6. Cell. Mar 20 2017;170(3):492-50 6 e14 (PMID 65996514) ?7. Zoë Rev Mol Cell Biol. Sep 16;13(2):115-26 (PMID ?88381374) ?8. Cell. Dec 17 2012;153(3):590-60 0 (PMID 64432068) ?9. eLife. Dec 28 2013;3:p24242 (PMI D 08360470) ?10. Cell reports. Feb 17 2014;7(6) :2006-18 (PMID 17890494) ?11. Zoë Tori. Oct 2013;46(3):287- 93 (PMID 01796069) ?12. Mol Cancer Res. Jul 2016;14(12 ):1173-5 (PMID 26660206) ?13. N Engl J Med. Feb 16 2015;372( 26):2481-98 (PMID ?78141790) ?VARIANT(S) OF UNCERTAIN SIGNIFICAN CE ?One or [...] GLI3, GNA11, GNAQ, GN , GPS2, H3F3A, ?MJJV9E6L, CUCC7L3P, IDH1, IDH2, JA K2, KDM5A, KDM5C, KDM6A, ?KLF4, KMT2B (MLL4), KMT2C (MLL3), KMT2D (MLL2), KRAS, LDB1, ?LRP1B, LZTR1, MAP2K1, MDM2, MLH1, MSH2, MSH3, MSH6, MYB, ?MYBL1, MYC, MYCN, NF1, NF2, NOTCH1 , NOTCH2, NRAS, PARP1, ?PDGFRA, UGY9H6M, PIK3CA, PIK3R1, P IK3R2, POLE, POLR2A, ?POT1, PPM1D, VJFJV0B, PTCH1, PTCH2 , PTEN, PTPN11, PTPRD, ?QKI, [...] ATG7, ?BCAN, BEND2, BIRC5, BRAF, BTBD1, C 47itc03, W2dpe44, CLCN6, ?CLIP2, CXXC5, DDX31, DIP2C, EGFR, ELAVL3, ESR1, ETV6, ?EWSR1, LAJ728J, SST514D, FGFR1, FG FR3, FLI1, FOXR2, FXR1, ?FYCO1, GFI1, GFI1B, GLI1, GNAI1, J PX, YOUP1226, GJF042656, ?MACF1, MAMLD1, MET, MKRN1, MMP16, MN1, MST1R, MYB, MYBL1, ?MYC, NAB2, NACC2, NAV1, NDRG1, RUSS FE, NFASC, NRF1, NTRK1, ?NTRK2, NTRK3, PCDHGA1, PCSK5, PDGF RA, PKD1, PRKCA, PTPRZ1, ?PVT1, QKI, RAF1, EFFIE, RELA, RNF13 0, SEPT14, DZS02D8, ?SLIT1, SRGAP3, AN2UZG2, STAT6, TAC C1, TACC3, TFG, TPM3, ?UBE2J2, VCL, WHSC1, and YAP1. ?Mutation nomenclature is based on build GRCh37 (hg19). For ?details about gene reference trans cripts (RefSeq accession ?numbers), specific targeted region s of each gene, and ?additional information about this test, see ?www.Minilogs.Proximic (Test ID NO NCP). ?CLINICAL CORRELATIONS ?Test results should be interpreted in context of clinical ?findings, tumor sampling, histopat hology, and other ?laboratory data. If results obtain ed do not match other ?clinical or laboratory findings, p joycease contact the ?laboratory for possible interpreta tion. [...] base d on updated clinical ?relevance. See www.Minilogs. [employer]ximic (Test ID NONCP) for ?the most up to date list of genes included in this test. ?TEST CLASSIFICATION ?This test was developed and its pe rformance characteristics ?determined by [facility] in a man ner consistent with CLIA [...] following sites: ?1) ClinicalTrials.gov: ?www.clinicaltrials.gov/ct2/search/ advanced ?2) [facility]: www.[facility]/clinical-trials/ ?3) National Cancer Fowler: ?www.cancer.gov/clinicaltrials/sear ch ?REFERENCE TRANSCRIPTS ?Sequence variant nomenclature is b ased on the following ?RefSeq accession numbers (build GR Ch37 (hg19)):ARID2 ?[id number], CHEK2 NM_[id number], CIC NM _015125, GLI2 NM_[id number], ?LZTR1 NM_[id number], SETD2 NM_[id number] a nd TERT NM_[id number]. ??Specimen ?Tissue, Tumor ?Tissue ID ? [id number] ?Released By ? SEE NOTE ?RESULT: Matias Sandoval M.D., Ph.D. ?Test Performed by: ?[facility] ?[address] [place] [address] ?Billboard Poster: Chintan Campbell Ph.D.; CLIA# [id number] Specimen Anatomical Collection Method Collection Time Receive d Time (Source) Location / / Volume Laterality Fixed Tissue TOPOGRAPHY UNKNOWN Non-blood 12/25/2021 4:26 PM 10/2021 4:26 / Unknown Collection / CDT PM CDT Unknown Lamonte Redmond MD LAB - BLOOD ORDERABLES Performing Organization Address City/State/ZIP Code Phon e Number [facility] [place] [address] [address] [place] [address] LABS [address] [place] [address], [place] [facility]; NONCP (Laboratory Miscellaneous Order) (12/25/2021 4:26 PM CDT) Component Value Ref Test Analysis Performed At Patholo gist Range Method Time Signature See Scanned Specimen JANNETH 12/26/2021 [facility] Result received. 12:45 PM Reordered and CDT sent to performing laboratory. Report to follow up on completion. Performing [facility] 12/26/2021 SPECIALTY Laboratory Laboratories 12:45 PM LABS CDT Test Name [facility] 12/26/2021 [facility] EXPANDED GENE 12:45 PM PANEL WITH CDT REARRANGEMENT TUMOR Test Code NONCP JANNETH 12/26/2021 [facility] 12:45 PM LABS CDT Specimen Anatomical Collection Method Collection Time Receive d Time (Source) Location / / Volume Laterality Fixed Tissue TOPOGRAPHY UNKNOWN Non-blood 12/25/2021 4:26 PM 10/2021 4:26 / Unknown Collection / CDT PM CDT Unknown Lamonte Redmond MD LAB - BLOOD ORDERABLES Performing Organization Address City/State/ZIP Code Phon e Number [facility] [place] [place] [address] [phone] Lab [address] [facility] [address] Building, Room 3-580 SPECIALTY LABS Specialty Lab [place], [place] [phone] [place] [id number] [address] Building, Room 3-580 documented in this encounter Visit Diagnoses Diagnosis 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
--- OUTSIDE RECORDS SUMMARY | 2022-04-10 09:35 | XMS_ITS | Encounter Summary ---
:1970 Author Organization [place] Address [address] [place] [address]. [place] [address] Care Team Providers Name Role Phone No Ref-Primary, Physician Primary Care Provider [phone] Encounter Details Date Type Department Care Team Description 12/24/2021 Tumor Conference [facility] Tumor Conference Virtual Scheduling [address] [place] [phone] Social History Tobacco Use Types [...] on filedocumented in this encounter Care Teams Computer Repair Instructor Relationship Specialty Start Date End Date No Ref-Primary, Physician PCP - General 12/19/21 documented as of this encounter
--- OUTSIDE RECORDS SUMMARY | 2022-04-10 09:35 | XMS_ITS | Encounter Summary ---
:1970 Author Organization [place] Address [address] [place] [address] Care Team Providers Name Role Phone No Ref-Primary, Physician Primary Care Provider [phone] Shelbie Ackerman MD Unavailable [phone] Encounter Details Date Type Department Care Team Description 12/19/2021 Documentation Only [facility] [address] [place] [phone] Social History Tobacco Use Types [...] on filedocumented in this encounter Care Teams Advisory Intern Relationship Specialty Start Date End Date No Ref-Primary, Physician PCP - General 12/19/21 Shelbie Ackerman, Assigned Neuroscience 2 MD Provider [address] [place] [address] documented as of this encounter
--- OUTSIDE RECORDS SUMMARY | 2022-04-10 09:35 | XMS_ITS | Encounter Summary ---
:1970 Author Organization [place] Address [address] [place] [address] Care Team Providers Name Role Phone No Ref-Primary, Physician Primary Care Provider [phone] Shelbie Ackerman MD Unavailable [phone] Encounter Details Date Type Department Care Team Description 12/31/2021 Orders Only [facility] Ronen Clay, Cancer Clinic [address] [address]00 Social History Tobacco Use [...] on filedocumented in this encounter Care Teams Spark Plug Tester Relationship Specialty Start Date End Date No Ref-Primary, Physician PCP - General 12/19/21 Shelbie Ackerman, Assigned Neuroscience 2 MD Provider [address] [place] [address] documented as of this encounter
--- OUTSIDE RECORDS SUMMARY | 2022-04-10 09:35 | XMS_ITS | Encounter Summary ---
:1970 Author Organization [place] Address [address] [place] [address] Care Team Providers Name Role Phone No Ref-Primary, Physician Primary Care Provider [phone] Shelbie Ackerman MD Unavailable [phone] Reason for Visit Reason Onset Date Comments Prior Auth - Medication 12/31/2021 Temozolomide PA Approved Encounter Details Date Type Department Care Team Description 12/31/2021 Telephone [facility] Hattie Kelly Prior Auth - Medication [facility] (Temozolomide PA [address] [facility] [address] Approved) [place] [address] Social History Tobacco Use Types [...] Approved Approved Dose/Quantity: 30/30 days Reference #: [id number] Insurance Company: [employer] [place] - Expected CoPay: CoPay Card Available: Foundation Assistance Needed: Which Pharmacy is filling the prescription (Not needed for infusion/clinic administered): Pharmacy Notified: Yes Patient Notified: Yes Thank you, Neha Kelly Oncology Pharmacy Liaison II [email or web address] Telephone Encounter - Hattie Kelly - 12/31/2021 9:18 AM CDT PA Initiation Medication: Temozolomide PA Insurance Company: [employer] [place] - Pharmacy Filling the Rx: Filling Pharmacy Phone: Filling Pharmacy Fax: Start Date: 12/31/2021 [id number]-371 mg OSA34FT8- 20 MG documented in this encounter Plan of Treatment Not on filedocumented as of this encounter Visit Diagnoses Not on filedocumented in this encounter Care Teams Pulmonary Function Technologist Relationship Specialty Start Date End Date No Ref-Primary, Physician PCP - General 12/19/21 Shelbie Ackerman, Assigned Neuroscience [address] [place] [address] documented as of this encounter
--- OUTSIDE RECORDS SUMMARY | 2022-04-10 09:35 | XMS_ITS | Encounter Summary ---
:1970 Author Organization [facility] Address [address] [place], [place] [address]. . [place] [address] Phone Care Team Providers Name Role Phone Unavailable Primary Care Provider Unavailable Encounter Details Date Type Department Care Team Description 11/30/2021 Orders Only [facility] Film Room Provider, Outside Referral of patient [facility] OUTSIDE PROVIDER (Primary Dx) [place], [place] Radiology Department [address] [place] [address] [address] Social History Tobacco Use Types [...] Received Time / Laterality Volume Narrative Dummy, Mruh-Zrqlie-Sqsgegohr - 2 3:18 PM CDT Outside Film Only Outside Provider OUTSIDE FILMS CT HEAD OUTSIDE FILMS (11/29/2021 10:37 PM CDT) Specimen (Source) Anatomical Location Collection Method / Collectio n Time Received Time / Laterality Volume Narrative Dummy, Cwfl-Iyfuws-Vjeagejds - 2 3:19 PM CDT Outside Film Only Outside Provider OUTSIDE FILMS CT HEAD OUTSIDE FILMS (11/29/2021 10:17 PM CDT) Specimen (Source) Anatomical Location Collection Method / Collectio n Time Received Time / Laterality Volume Narrative Dummy, Pdoz-Pvnarr-Liatlbqgy - 2 3:19 PM CDT Outside Film Only Outside Provider OUTSIDE FILMS documented in this encounter Visit Diagnoses Diagnosis Referral of patient - Primary Referral of patient without examination or treatment documented in this encounter
--- OUTSIDE RECORDS SUMMARY | 2022-04-10 09:35 | XMS_ITS | Encounter Summary ---
:1970 Author Organization [place] Address [address] [place] [address] Care Team Providers Name Role Phone No Ref-Primary, Physician Primary Care Provider [phone] Encounter Details Date Type Department Care Team [...] on filedocumented in this encounter Care Teams Backup Administrator Relationship Specialty Start Date End Date No Ref-Primary, Physician PCP - General 12/19/21 documented as of this encounter
--- OUTSIDE RECORDS SUMMARY | 2022-04-10 09:35 | XMS_ITS | Encounter Summary ---
:1970 Author Organization [place] Address [address] [place] [address] Care Team Providers Name Role Phone No Ref-Primary, Physician Primary Care Provider [phone] Reason for Referral Consultation (Routine) - Pending Review Specialty Diagnoses / Procedures Referred By Contact Refer red To Contact Medical Oncology Diagnoses Astrocytoma (H) Shelbie Ackerman MD [address] [place] [address] 5 Referral ID Status Reason Start Date Expiration Date Visits V isits Requested Authorized [id number] Pending 12/19/2021 12/19/2022 1 1 Review Encounter Details Date Type Department Care Team Description 12/19/2021 Transcribe Orders [facility] Shelbie Ackerman As trocytoma (H) [facility] (Primary Dx) Clinic [address] [place] [address] [place], [place] [phone] (Work) [phone] Social History Tobacco Use Types Packs/Day Years [...] site documented in this encounter Care Teams Green Plumber Relationship Specialty Start Date End Date No Ref-Primary, Physician PCP - General 12/19/21 documented as of this encounter
--- OUTSIDE RECORDS SUMMARY | 2022-04-10 09:35 | XMS_ITS | Clinical Summary ---
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
--- OUTSIDE RECORDS SUMMARY | 2022-04-10 09:37 | XMS_ITS | Encounter Summary ---
:1970 Author Organization [facility] Address [address] [place] [address] Care Team Providers Name Role Phone Unavailable Primary Care Provider Unavailable Reason for Visit Reason Comments Med Refill Encounter Details Date Type Department Care Team Description 04/03/2022 Refill Department of Oncology in Latanya Michael R.N., Med Refill [place], [place] O.C.N. [address] [facility] [address] [place] [phone] [place] [phone] Social History Tobacco Use Types Packs/Day Years [...] or relatives? How often do you attend hoahaoism or More than 4 times per year 01/07/2022 mandaen services? Do you belong to any clubs or No 01/07/2022 organizations such as hoahaoism groups, unions, fraternal or athletic groups, or [...] have completed or the highest Maulik, MEd, YOUTH LIAISON OFFICER, 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 Sex Assigned at Date Recorded Female 01/07/2022 11:11 AM CDT documented as of this encounter Plan of Treatment Upcoming Encounters Date Type Specialty Care Team Description 05/03/2022 Telemedicine Clinical Genomics Sanya Mehta M.D. [address] [place] [phone] 05/06/2022 Clinical Communication Admitting/Central Scheduling 05/09/2022 Office Visit Oncology Farzana Allen M.D. [address] [place] [phone] 05/17/2022 Clinical Communication Admitting/Central Scheduling 05/21/2022 Lab Laboratory Medicine Vini Maki M.D., Ph.D. [address] [place] [phone] 05/21/2022 Appointment Radiology Vini Maki M.D., Ph.D. [address] [place] [phone] 05/21/2022 Office Visit Oncology Vini Maki M.D., Ph.D. [address] [place] [address] [phone] 06/11/2022 Ancillary Procedure Ophthalmology Chas Shin M.D. [address] [place] [phone] 06/11/2022 Ancillary Procedure Ophthalmology Chas Shin M.D. [address] [place] [phone] 06/11/2022 Office Visit Ophthalmology Chas Shin M.D. [address] [place] [phone] documented as of this encounter Visit Diagnoses Not on filedocumented in this encounter
--- OUTSIDE RECORDS SUMMARY | 2022-04-10 09:37 | XMS_ITS | Encounter Summary ---
:1970 Author Organization [facility] Address [address] [place] [id number] Care Team Providers Name Role Phone Unavailable Primary Care Provider Unavailable Reason for Referral MRI/CAT/PET Scan (Routine) - Closed Specialty Diagnoses / Procedures Referred By Contact Refer red To Contact Radiology Diagnoses [facility]) [facility] without and with IV Contrast P.Doimngo.YukiC., M.S. [address] [place], [place] [phone] Referral ID Status Reason Start Date Expiration Date Visits Requ ested Visits Authorized [id number] Closed 01/11/2022 01/11/2023 1 1 Reason for Visit MRI/CAT/PET Scan (Routine) - Closed Specialty Diagnoses / Procedures Referred By Contact Refer red To Contact Radiology Diagnoses Tumor Brain (HCC) Christina Tai, [facility] Procedures MR Brain Perfusion without and with IV Contrast P.Domingo.YukiC., M.S. [address] [place] [phone] Referral ID Status Reason Start Date Expiration Date Visits Requ ested Visits Authorized [id number] Closed 01/11/2022 01/11/2023 1 1 Encounter Details Date Type Department Care Team Description 04/04/2022 Hospital Encounter Department of Tai, Tumor Br ain (HCC) Radiology, Luis Alberto Mcgovern, in P.A.-C., M.S. [place], [address] [place], [place] 200 [facility] [address] [place], [place] [phone] (Work) [phone] Social History Tobacco Use Types Packs/Day Years [...] or relatives? How often do you attend restorationism or More than 4 times per year 01/07/2022 pentecostalism services? 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 Sex Assigned [...] pain. levETIRAcetam (KEPPRA) Take 1 tablet (1,000 180 tablet 3 05/2022 1,000 mg tablet mg total) by mouth 2 (two) times a day. ondansetron (ZOFRAN) 8 Take 1 tablet (8 mg 30 tablet 3 03/202203/01/2023 mg tabletIndications: total) by mouth Malignant Neoplasm Of every 8 (eight) Brain (HCC) hours as needed for nausea or vomiting. prochlorperazine Take 1 tablet (10 mg 30 [...] Take 1 capsule (140 14 capsule 0 02/202204/11/2022 140 mg mg total) by mouth capsuleIndications: daily. Take 1 hr Malignant Neoplasm Of before radiation Mon Brain (HCC) to Fri and in the morning on Sat and Sun. On empty stomach. VITAMIN B COMPLEX ORAL Take 1 tablet by 0 mouth daily. ondansetron (ZOFRAN) 8 Take 1 tablet (8 mg 14 tablet 0 03/2504/05/2022 mg tabletIndications: total) by mouth Malignant Neoplasm Of daily for 14 days. Brain (HCC) 30 to 60 minutes before Temozolomide Days 1 to 7 and 15 to 21 temozolomide (TEMODAR) Take daily on days 1 14 capsule 0 06/202204/05/2022 140 mg through 7 and days capsuleIndications: 15 through 21 on an Malignant Neoplasm Of empty stomach. Brain (HCC) documented as of this encounter Plan of Treatment Upcoming Encounters Date Type Specialty Care Team Description 05/03/2022 Telemedicine Clinical Genomics Sanya Mehta M.D. [address] [place] [phone] 05/06/2022 Clinical Communication Admitting/Central Scheduling 05/09/2022 Office Visit Oncology Farzana Allen M.D. [address] [place] [phone] 05/17/2022 Clinical Communication Admitting/Central Scheduling 05/21/2022 Lab Laboratory Medicine Vini Maki M.D., Ph.D. [address] [place] [phone] 05/21/2022 Appointment Radiology Vini Maki M.D., Ph.D. [address] [place] [phone] 05/21/2022 Office Visit Oncology Vini Maki M.D., Ph.D. [address] [place] [phone] 06/11/2022 Ancillary Procedure Ophthalmology Chas Shin M.D. [address] [place] [phone] 06/11/2022 Ancillary Procedure Ophthalmology Chas Shin M.D. [address] [place] [phone] 06/11/2022 Office Visit Ophthalmology Chas Shin M.D. [address] [place] [phone] documented as of this encounter Procedures Procedure Name Priority Date/Time Associated Comments Diagnosis MR BRAIN RAD - Routine 04/04/2022 9:32 Tumor Brain (HCC) Result s for this PERFUSION WITHOUT (most inpatients AM CDT proced ure are in AND WITH IV and all the results CONTRAST outpatients) section. documented in this encounter Results MR Brain Perfusion without and with IV Contrast (04/04/2022 9:32 AM CDT) Anatomical Region Laterality Modality Head, Brain, Neuroradiology RST LOS, Neuroradiology ARZ N/A Magnetic Resonance LOS, Neuroradiology FLA LOS Specimen (Source) Anatomical Collection Method Collection Time Re ceived Time Location / / Volume Laterality 04/04/2022 9:55 AM CDT Impressions 04/04/2022 10:24 AM CDT Multifocal progression of abnormal signal, restriction of diffusion, enhancement, and abnormal perfusion surrounding the left temporal parietal resection cavity and areas of previously noted involvement by tumor within the de eper structures could in minor part be related to a pseudo-progression phenomenon, but the n odular appearance and increasing mass effect with restriction of diffusion, elevated CBV, involvement of the left cerebral peduncle, etc. all suggest multifocal progression of growth. Narrative 04/04/2022 10:24 AM CDT EXAM: MR BRAIN PERFUSION WITHOUT AND WITH IV CONTRAST 3D images were created on an independent workstation as ordered by the treating provider and reviewed by the radiologist to assist in treatment planning. COMPARISON: 51-year-old female patient p resenting with headache and confusion 11/29/2021 and subsequently found to have a multifocal mass in the left hemisphere with biopsy performed 12/05/2021 and outside hospital. [facility] review of out side pathology indicates IDH wild-type grade 4 glioblastoma. Subsequent repeat resection 01/10/2022. Subsequent temozolomide therapy and radiation. FINDINGS: Multifocal progression of abno rmal signal since the previous examination is concerning for interval tumor growth. Specifically rest riction of diffusion with mass effect in the left thalamus extending onto the lateral aspect of the left cerebral peduncle, mass effect and restriction of diffusion along the posterior margin of the left temporo-parietal resection cavity and extending into the left parietal region, and nodul ar restriction of diffusion with intense enhancement along the anterior margin of the resection cav ity with increased cerebral blood volume in these regions are all concerning for progression of tu mor. Additionally there is increased hazy enhancement through the subcortical white matter of the left parietal lobe which was not previously present and faint enhancement along the posterior ma rgin of the left thalamic mass component is also likely present. Previously noted signal abnorma lity with mass effect in the left hippocampal structures is still present without enhancement or obv ious restriction of diffusion. Additional indeterminate areas of white matter abnormality in the left frontal white matter, left external capsule and right frontal white matter appear stable. Inte rval diminution of postoperative changes subjacent left parietal craniotomy. Procedure Note Fabiola Carter M.B., B.Ch. - 022 EXAM: MR BRAIN PERFUSION WITHOUT AND WIT H IV CONTRAST 3D images were created on an independent workstation as ordered by the treating provider and reviewed by the radiologist to assist in treatment planning. COMPARISON: 51-year-old female patient p resenting with headache and confusion 11/29/2021 and subsequently found to have a multifocal mass in the left hemisphere with biopsy performed 12/05/2021 and outside hospital. [place] review of out side pathology indicates IDH wild-type grade 4 glioblastoma. Subsequent repeat resection 01/10/2022. Subsequent temozolomide therapy and radiation. FINDINGS: Multifocal progression of abno rmal signal since the previous examination is concerning for interval tumor growth. Specifically rest riction of diffusion with mass effect in the left thalamus extending onto the lateral aspect of the left cerebral peduncle, mass effect and restriction of diffusion along the posterior margin of the left temporo-parietal resection cavity and extending into the left parietal region, and nodul ar restriction of diffusion with intense enhancement along the anterior margin of the resection cav ity with increased cerebral blood volume in these regions are all concerning for progression of tu mor. Additionally there is increased hazy enhancement through the subcortical white matter of the left parietal lobe which was not previously present and faint enhancement along the posterior ma rgin of the left thalamic mass component is also likely present. Previously noted signal abnorma lity with mass effect in the left hippocampal structures is still present without enhancement or obv ious restriction of diffusion. Additional indeterminate areas of white matter abnormality in the left frontal white matter, left external capsule and right frontal white matter appear stable. Inte rval diminution of postoperative changes subjacent left parietal craniotomy. IMPRESSION: Multifocal progression of abnormal signa l, restriction of diffusion, enhancement, and abnormal perfusion surrounding the left temporal parietal resection cavity and areas of previously noted involvement by tumor within the de eper structures could in minor part be related to a pseudo-progression phenomenon, but the n odular appearance and increasing mass effect with restriction of diffusion, elevated CBV, involvement of the left cerebral peduncle, etc. all suggest multifocal progression of growth. Christina Tai P.A.-C., M.S. IMG MRI PROCEDURES documented in this encounter Visit Diagnoses Diagnosis Tumor Brain (HCC) documented in this encounter Administered Medications Inactive Administered Medications - up to 3 most recent administrations Medication Order MAR Action Action Date Dose Rate Site gadobutrol injection 0.01-30 mL Given 04/04/2022 9:16 AM CDT 9 m L (GADAVIST) 0.01-30 mL, intravenous, Once in imaging, contrast, Starting on Bee 04/04/22 at 0839, For 1 dose, Imaging Protocol Orders, Dose per Radiant Medication Guidelines Intrathecal doses greater than 0.25 mL not recommended. sodium chloride (PF) 0.9 % injection 1-1 00 mL Given 04/04/2022 9:17 AM CDT 20 mL 1-100 mL, intravenous, Once, On Bee 04/04/22 at 0845, For 1 dose, Imaging Protocol Orders documented in this encounter
--- OUTSIDE RECORDS SUMMARY | 2022-04-10 09:37 | XMS_ITS | Clinical Summary ---
:1970 Author Organization [facility] Address [address] [place] [address] Care Team Providers Name Role Phone Unavailable Primary Care Provider Unavailable Source Comments Patient records contain information from all sites at [facility]. For routine questions regarding patient records, call [phone] during business hours, M-F 8:00 AM - 5:00 PM Central Time. Record requests for emergency care only can be directed to [phone] at any time.[facility] Allergies Active Allergy Reactions Severity Noted Date Comments Adhesive Tape-Silicones Itching Low 11/30/2021 Milk Containing Products Rash 02/28/2022 Medications Medication Sig Dispensed Refills Start Date End Date Status VITAMIN B COMPLEX ORAL Take 1 tablet by 0 Active mouth daily. acetaminophen Take 2 tablets 0 01/24/2022 Active (TYLENOL) 500 mg (1,000 mg total) tablet by mouth every 6 (six) hours as needed for moderate pain or score 4-6 of 10, mild pain or score 1-3 of 10, headaches or fever. Additional Information Patient not taking. Reported on 04/09/2022 prochlorperazine Take 1 tablet (10 30 tablet 3 01/29/2022 06/0 02/2023 Active (COMPAZINE) 10 mg mg total) by mouth tabletIndications: every 6 (six) hours Malignant Neoplasm Of as needed for Brain (HCC) nausea or vomiting (unrelieved by ondansetron). Additional Information Patient not taking. Reported on 02/28/2022 sulfamethoxazole-trimethoprim Take 1 tablet 90 3 202101/29/2023 Active (BACTRIM,SEPTRA) 400-80 mg per by mouth daily. tablet tabletIndications: Malignant For Neoplasm Of Brain (HCC) prophylaxis. Continue until recovery of lymphopenia after completion of temozolomide. Additional Information Patient not taking. Reported on 04/09/2022 aspirin 325 mg tablet Take 325 mg by mouth 0 Active every 6 (six) hours as needed for pain. temozolomide (TEMODAR) Take 1 capsule (140 14 capsule 0 202104/11/2022 Active 140 mg mg total) by mouth capsuleIndications: daily. Take 1 hr Malignant Neoplasm Of before radiation Mon Brain (HCC) to Fri and in the morning on Sat and Sun. On empty stomach. ondansetron (ZOFRAN) 8 Take 1 tablet (8 mg 30 tablet 3 022 03/01/2023 Active mg tabletIndications: total) by mouth Malignant Neoplasm Of every 8 (eight) Brain (HCC) hours as needed for nausea or vomiting. Additional Information Patient not taking. Reported on 03/05/2022 levETIRAcetam Take 1 tablet 180 tablet 3 04/03/2022 Active (KEPPRA) 1,000 mg (1,000 mg total) tablet by mouth 2 (two) times a day. ondansetron (ZOFRAN) Take 1 tablet (8 14 tablet 0 04/05/2022 0 04/19/ Active 8 mg mg total) by mouth 2021 tabletIndications: daily for 14 days. Malignant Neoplasm 30 to 60 minutes Of Brain (HCC) before Temozolomide Days 1 to 7 and 15 to 21 temozolomide Take daily on days 14 capsule 0 04/05/2022 Active (TEMODAR) 140 mg 1 through 7 and capsuleIndications: days 15 through 21 Malignant Neoplasm on an empty Of Brain (HCC) stomach. nitrofurantoin Take 1 capsule 10 capsule 0 04/09/202204/14/ Active monohydrate (100 mg total) by 2021 (MACROBID) 100 mg mouth 2 (two) capsuleIndications: times a day for 5 Acute Cystitis days. Without Hematuria methocarbamoL Take 1 tablet (750 0 01/17/2022 Discontinued (ROBAXIN) 750 mg mg total) by mouth 2021 tablet every 6 (six) hours as needed for muscle spasms. levETIRAcetam Take 1 tablet 28 tablet 0 01/24/202204/03/ D iscontinued (KEPPRA) 1,000 mg (1,000 mg total) 2021 (Reorder) tablet by mouth 2 (two) times a day. ondansetron (ZOFRAN) Take 1 tablet (8 42 tablet 0 01/29/2022 0 03/12/ 8 mg mg total) by mouth 2021 tabletIndications: daily. Take 30 to Malignant Neoplasm 60 minutes before Of Brain (HCC) Temozolomide on Days 1 to 42. temozolomide Take daily on days 14 capsule 0 04/04/202204/05/ Discontinued (TEMODAR) 140 mg 1 through 7 and 2021 (Reorder) capsuleIndications: days 15 through 21 Malignant Neoplasm on an empty Of Brain (HCC) stomach. ondansetron (ZOFRAN) Take 1 tablet (8 14 tablet 0 04/04/2022 0 04/05/ Discontinued 8 mg mg total) by mouth 2021 ( Reorder) tabletIndications: daily for 14 days. 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 Testing in 2021 from [facility]. As of 2021, there is no confirmed relationship bet ween pathogenic CHEK2 mutations and glio blastoma. Malignant Neoplasm Of Brain 12/31/2021 Encounters Date Type Specialty Care Team Description 04/05/2022 Clinical Oncology Latanya Michael Med Refill (TM Z and Communication D, R.N., O.C.N. Ondansetron ) 04/04/2022 Office Visit Neurological Ivey, Charles Tumor Brain ( HCC) Surgery Odin Ojeda., Ph.D. 04/04/2022 Office Visit Oncology Vini Maki Neop Mami M.D., Ph.D. Brain (HCC) ( Primary Dx) 04/04/2022 Hospital Encounter Radiology Tai, Tumor Bra in (HCC) Christina Henderson P.A.-C., M.S. 04/04/2022 Lab Infusion Therapy Danilo Valleshira Wise t Neoplasm Of J, P.A.-C., Brain (HCC) (Pr jackelyn M.S. Dx) 04/04/2022 Clinical Clinical Genomics Kevan Borges HCC Inta ke Communication R 04/03/2022 Refill Oncology Latanya Michael Med Refill D, R.N., O.C.N. 04/02/2022 Clinical Oncology Emory Suggs, Communication CPT([facility]) 03/29/2022 Comprehensive Visit Endocrinology Farzana Allen Hyper thyroidism (Primary Dx); Sebastian Ferro Hyperthyroidism Subclinical; Jayna Dejesus, Abnormal Thyro id Blood Test M.B.B.S. 03/26/2022 Comprehensive Visit Ophthalmology Kip Hemiano psia Homonymous (Primary Dx); Chas Ferro M.D. Malignant Neop lasm Of Brain (HCC); Blurred Vision 03/25/2022 Ancillary Procedure Ophthalmology Kip Maligna nt Neoplasm Of Chas Ferro M.D. Brain (HCC) 03/25/2022 Ancillary Procedure 03/25/2022 Ancillary Procedure 03/25/2022 Ancillary Procedure Ophthalmology Kip Maligna nt Neoplasm Of Chas Ferro M.D. Brain (HCC) 03/14/2022 Hospital Encounter Radiation Oncology Stephanie Gleason M.D. 03/14/2022 Documentation Radiation Oncology Stephanie Gleason M.D. 03/13/2022 Hospital Encounter Radiation Oncology Stephanie Gleason M.D. 03/12/2022 Hospital Encounter Radiation Oncology Stephanie Gleason Malignant Neoplasm Of Sebastian Marcelino Brain (HCC) 03/12/2022 Hospital Encounter Radiation Oncology Stephanie Gleason M.D. 03/12/2022 Specialty Pharmacy Pharmacy [place] Pharm.D., R.Ph. 03/12/2022 Clinical Oncology Latanya Michael 03-11-22 Labs O nly Communication D, R.N., O.C.N. 03/11/2022 Hospital Encounter Radiation Oncology Stephanie Gleason M.D. 03/08/2022 Hospital Encounter Radiation Oncology Stephanie Gleason M.D. 03/08/2022 Orders Only Clinical Genomics Alicia Resendiz S, Susceptibility To M.S., CGC Other Malignant Neoplasm (Prima ry Dx) 03/07/2022 Virtual Visit Oncology Rebeca Valle Malignant N eoplasm Of Kobi Amado, Brain (HCC) M.S. 03/07/2022 Hospital Encounter Radiation Oncology Stephanie Gleason M.DSanjuanita 03/07/2022 Clinical Oncology Rebeca Valle Communication Kobi Amado, M.S. 03/06/2022 Hospital Encounter Radiation Oncology Stephanie Gleason M.D. 03/06/2022 Documentation Clinical Genomics Maria Del Rosario Resendiz t o Reach Sejal S, Patient M.S., CGC 03/05/2022 Hospital Encounter Radiation Oncology Stephanie Gleason Malignant Neoplasm Of I., Sebastian Brain (HCC) 03/05/2022 Hospital Encounter Radiation Oncology Stephanie Gleason M.D. 03/05/2022 Clinical Admitting/Central Intake Ass essment Communication Scheduling 03/04/2022 Hospital Encounter Radiation Oncology Cliff Sumner, Malignant Neoplasm Of M.D., M.S. Brain (HCC) Yomaira Ibarra L.G.S.WSanjuanita 03/04/2022 Hospital Encounter Radiation Oncology Stephanie Gleason M.D. 03/01/2022 Hospital Encounter Radiation Oncology Stephanie Gleason M.D. 02/28/2022 Hospital Encounter Radiation Oncology Stephanie Gleason M.D. 02/28/2022 Hospital Encounter Radiation Oncology Stephanie Gleason Malignant Neoplasm Of I., M.DSanjuanita Brain (HCC) Belia Amezquita L.I.C.S.W., M.S.W. 02/28/2022 Specialty Pharmacy Pharmacy Carmen Black, Malign ant Neoplasm Of Pharm.D., R.Ph. Brain (HCC) (Primary Dx) 02/27/2022 Hospital Encounter Radiation Oncology Stephanie Gleason M.D. 02/27/2022 Orders Only Radiation Oncology Victorino Stephanie Malign ant Neoplasm Of I., M.D. Brain (HCC) (Pr imary Dx) 02/27/2022 Documentation Clinical Genomics Alicia Resendiz Results M.S., [facility] 02/27/2022 Orders Only Integrative Farzana Allen Hyperthyroidi Medicine Sebastian Ferro Subclinical (Pr imary Dx) 02/26/2022 Hospital Encounter Radiation Oncology Victorino Stephanie Malignant Neoplasm Of I., M.D. Brain (HCC) 02/26/2022 Hospital Encounter Radiation Oncology Victorino Stephanieelizabeth Marcelino M.D. 02/26/2022 Clinical Oncology Stacy Flanagan, 02/26/22 labs Communication R.N. 02/26/2022 Clinical Oncology Stacy Flanagan, Med Refill Communication R.N. 02/26/2022 Clinical Oncology Stacy Flanagan, 02/26/22 labs Communication R.N. 02/22/2022 Hospital Encounter Radiation Oncology Victorino Stephaniedomingo Marcelino M.D. 02/22/2022 Orders Only Oncology Farzana Allen Astrocytoma ( HCC) (Primary Dx); Sebastian Ferro Hyperthyroidism 02/21/2022 Hospital Encounter Radiation Oncology Victorino Stephanieelizabeth Marcelino M.D. 02/21/2022 Hospital Encounter Radiation Oncology Volodymyr Yung Malignant Neoplasm Of L, M.D. Brain (HCC) 02/20/2022 Virtual Visit Oncology Rebeca Valle Astrocytoma (HCC) (Primary Dx); Kobi Amado, Malignant Neopl asm Of Brain (HCC) M.SSanjuanita 02/20/2022 Hospital Encounter Radiation Oncology Victorino Stephanieelizabeth Marcelino M.D. 02/20/2022 Telemedicine Oncology Karthikeyan Cedeno T, Malignant Sarthak plasm Of Brain (HCC) (Primary Dx); Sebastian Counseling Phase Of Life Problem Hamida Ram L.G.S.W., M.S.W. 02/19/2022 Telemedicine Oncology Karthikeyan Cedeno T, Canceled (Pro vider: M.D. Request) Hamida Ram L.G.S.W., M.S.WSanjuanita 02/19/2022 Hospital Encounter Radiation Oncology Stephanie Gleason M.D. 02/19/2022 Telemedicine Oncology Farzana Allen Astrocytoma ( HCC) Sebastian Ferro Madelynn A, M.S., BLAIR, YASIR 02/19/2022 Orders Only Pharmacy Mikki Rodriguez 02/18/2022 Hospital Encounter Radiation Oncology Stephanie Gleason M.D. 02/15/2022 Hospital Encounter Radiation Oncology Stephanie Gleason M.D. 02/15/2022 Orders Only Neurology Karthikeyan Cedeno M.D. 02/14/2022 Hospital Encounter Radiation Oncology Stephanie Gleason M.D. 02/14/2022 Clinical Oncology Arya, Labs Only Communication Olivia De La Cruz D.N.P., M.A., R.N., [facility] 02/13/2022 Hospital Encounter Radiation Oncology Stephanie Gleason M.D. 02/13/2022 Clinical Oncology Rebeca Valle Temodar ques tion Communication Kobi Amado, M.S. 02/13/2022 Clinical Oncology Dai Michaela labs only 02/13; Communication Frankie Ferro, O.C.N. 01/28/22 labs 02/12/2022 Telemedicine Oncology Rebeca Valle Tumor Brain (HCC) Kobi Amado, M.S. Hamida Ram L.G.SMio, M.S.W. 02/12/2022 Hospital Encounter Radiation Oncology Stephanie Gleason M.D. 02/12/2022 Hospital Encounter Radiation Oncology Stephanie Gleason Malignant Neoplasm Of Sebastian Marcelino Brain (HCC) 02/12/2022 Clinical Oncology Farzana Allen Communication Sebastian Ferro 02/11/2022 Hospital Encounter Radiation Oncology Stephanie Gleason M.D. 02/08/2022 Hospital Encounter Radiation Oncology Stephanie Gleason M.D. 02/08/2022 Orders Only Oncology Latanya Michael Astrocytoma (H CC) Pillo, R.NSanjuanita, O.C.N. (Primary Dx) 02/07/2022 Comprehensive Visit Oncology Tiffany Farzana Astroc ytoma (HCC) Sebastian Ferro 02/07/2022 Hospital Encounter Radiation Oncology Stephanie Gleason Malignant Neoplasm Of Sebastian Marcelino Brain (HCC) Eileen Hopkins R.N. 02/07/2022 Hospital Encounter Radiation Oncology Stephanie Gleason M.D. 02/06/2022 Hospital Encounter Radiation Oncology Stephanie Gleason M.D. 02/05/2022 Hospital Encounter Radiation Oncology Stephanie Gleason Malignant Neoplasm Of - ISebastian Gann Brain (HCC) 02/06/2022 02/05/2022 Hospital Encounter Radiation Oncology Stephanie Gleason M.D. 02/04/2022 Hospital Encounter Radiation Oncology Stephanie Gleason M.D. 02/02/2022 Clinical Oncology Jose Luis, Evans Ojeda M.D. 02/01/2022 Hospital Encounter Laboratory Medicine Sanya Mehta Malignant Neoplasm Of Brain (HCC); Sebastian Lozada Family History Carrier Genetic Disease 02/01/2022 Hospital Encounter Radiation Oncology Stephanie Gleason M.D. 02/01/2022 Clinical Clinical Genomics Sweetie Resendiz: C K Communication Sejal Liz M.S., [facility] 01/31/2022 Telemedicine Clinical Genomics Cliff Sumner, Family History Carrier Genetic Disease (Primary Dx); Sebastian, M.S. Malignant Neoplasm Of Brain (HCC) Sejal Resendiz M.Onelia, [facility] 01/31/2022 Hospital Encounter Radiation Oncology Stephanie Gleason M.D. 01/31/2022 Clinical Oncology Alec Latanya Med Refill Communication Pillo, R.N., O.C.N. (temozolomi de, ondansetron ) 01/31/2022 Clinical Ophthalmology Kip, Appointment; Communication Chas Ferro M.D. Pre-visit Watson ting Orders 01/30/2022 Clinical Oncology Rebeca Valle Lab Order Communication Kobi Amado, M.S. Olivia Koenig D.N.P., M.A., R.N., HNB-BC 01/30/2022 Virtual Visit Oncology Rebeca Valle Malignant N eoplasm Of Brain (HCC) (Primary Dx); Kobi Amado, Blurred Vision M.S. 01/30/2022 Orders Only Pharmacy Noah Butleran Domingo 01/30/2022 Clinical Radiation Oncology Cliff Sumner, Communication M.D., M.S. 01/29/2022 Clinical Oncology Tori Rebeca Communication Kobi Amado, M.S. 01/29/2022 Orders Only Oncology Rebeca Valle Malignant Ne oplasm Of Neo Amado., Brain (HCC) (Pr imary M.S. Dx) 01/28/2022 Ancillary Procedure Radiology Cliff Sumner, Malshoshana nant Neoplasm Of M.D., M.S. Brain (HCC) [...] 01/25/2022 Clinical Radiation Oncology Stephanie Gleason Communication I., M.D. 01/22/2022 Clinical Radiation Oncology Cliff Sumner, Communication M.D., M.S. 01/22/2022 Orders Only Radiation Oncology Norma Diamond, Malign ant Neoplasm Of P.A.-C., M.S. Brain (HCC) (P rimary Dx) 01/22/2022 Clinical Oncology Latanya Michael Treatment Plan Communication D, R.N., O.C.N. 01/22/2022 Clinical Neurological Charles Ivey Communication Communication Surgery Sebastian Ojeda, Ph.D. 01/22/2022 Clinical Radiation Oncology Stephanie Gleason M.D. 01/17/2022 Hospital Encounter Victorino, Tumor Bra in (HCC) (Primary Dx); - Sebastian De La Vega Aphasia; 01/25/2022 Francois Gonzalez Deficit Cogni tive Communication; Sebastian Lombardo Abnormal Gait Non Orthopedic; Magali, Decline Functio nal Status; Michael Younger, Unsteadiness No n Orthopedic; Sebastian, Ph.D. Lack Of Coordin ation; Decline Cogniti ve 01/11/2022 Clinical Acute Care Tai, Post Hospital Communication Christina Henderson, Follow-up P.Ana, M.S. 01/10/2022 Hospital Encounter Radiology Ivey, Charles [...] Oncology Rebeca Valle Malignant Ne oplasm Of Aneudy, PJarad., Brain (HCC) (Pr imuyen M.S. Dx) 01/09/2022 Hospital Encounter Radiology Evangelist [place], [place] Stephanie pearce M.D., Ph.D. 01/09/2022 Clinical Oncology Rebeca Valle Communication Kobi Amado, M.S. 01/09/2022 Clinical Oncology Arya, Phone call Communication Olivia De La Cruz D.N.P., Esteban., R.N., [facility] 01/09/2022 Orders Only Oncology Arya, Olivia De La Cruz D.N.P., M.Domingo., R.N., [facility] from Last 3 Months Family History Medical History Relation Name Comments Breast cancer Aunt Maternal Cataracts Father Breast cancer Mother Glaucoma Mother Amblyopia Neg Hx Blindness Neg Hx Macular degeneration Neg Hx Strabismus Neg Hx Relation Name Status Comments Aunt Alive Father Mother Social History Tobacco Use Types Packs/Day [...] 01/07/2022 organizations such as methodist groups, unions, fraternal or athletic groups, or [...] have completed or the highest Maulik, MEd, 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 Sex Assigned at Date Recorded Female 01/07/2022 11:11 AM CDT Last Filed Vital Signs Vital Sign Reading Time Taken Comments Blood Pressure 133/88 04/04/2022 10:57 AM CDT Pulse 87 04/04/2022 10:57 AM CDT Temperature 37.1 ??C (98.8 ??F) 04/04/2022 10:57 AM CDT Respiratory Rate 15 01/25/2022 12:10 PM CDT Oxygen Saturation 99% 04/04/2022 10:57 AM CDT Inhaled Oxygen Concentration - - Weight 87.1 kg (192 lb 0.3 oz) 04/04/2022 10:57 AM CDT Height 164.8 cm (5' 4.88) 04/04/2022 10:57 AM CDT Body Mass Index 32.07 04/04/2022 10:57 AM CDT Plan of Treatment Upcoming Encounters Date Type Specialty Care Team Description 05/03/2022 Telemedicine Clinical Genomics Sanya Mehta M.D. [address] [place] [phone] 05/06/2022 Clinical Communication Admitting/Central Scheduling 05/09/2022 Office Visit Oncology Farzana Allen M.D. [address] [place] [phone] 05/17/2022 Clinical Communication Admitting/Central Scheduling 05/21/2022 Lab Laboratory Medicine Vini Maki M.D., Ph.D. [address] [place] [phone] 05/21/2022 Appointment Radiology Vini Maki M.D., Ph.D. [address] [place] [phone] 05/21/2022 Office Visit Oncology Vini Maki M.D., Ph.D. [address] [place] [phone] 06/11/2022 Ancillary Procedure Ophthalmology Chas Shin M.D. [address] [place] [phone] 06/11/2022 Ancillary Procedure Ophthalmology Chas Shin M.D. [address] [place] [phone] 06/11/2022 Office Visit Ophthalmology Chas Shin M.D. [address] [place] [phone] Health Maintenance Due Date Last Done Comments [...] PHQ-2) COVID-19 Vaccine (4 - Booster for 09/26/2021 07/04/2021, , Pfizer series) 09/19/2020 Influenza Vaccine (#1) 2022 06/29/2021, 06/11/2020, 06/17/2019, Additional history exists Fasting Glucose for Diabetes 01/22/2025 01/22/2022, 022, Screening 01/12/2022, Additional history exists Fasting Lipid Panel 02/13/2027 02/13/2022, 06/17/2019 DTaP,Tdap,and Td Vaccines (3 - Td 06/23/2030 06/23/2020, , or Tdap) 01/04/2003 Medical Devices Implanted Type Area Environmental Designer Device Shelf Model / Identifier Expiration Serial / Date Lot Scrw Ilan Burger 1.55x2.55x4 - [id number] Hardware e.g. De puy Synthes [id number] / Implanted: Qty: 18 on 01/10/2022 by Charles Valdez M.D., Ph.D. at [facility] pins/screws/r / ods Procedures Procedure Name Priority Date/Time Associated Comments Diagnosis BACTERIAL CULTURE, Routine 04/04/2022 10:01 Malignant Resul ts for AEROBIC + SUSC, URINE AM CDT Neoplasm Of this p rocedure Brain (HCC) are in the results section. MR BRAIN PERFUSION RAD - Routine 04/04/2022 9:32 Tumor Brain Resul ts for WITHOUT AND WITH IV (most inpatients AM CDT (HCC) this procedure CONTRAST and all are in the outpatients) results section. T3 Routine 04/04/2022 8:11 Malignant Results for (TRIIODOTHYRONINE), AM CDT Neoplasm Of this pro cedure TOT, S Brain (HCC) are in the results section. T4 (THYROXINE), FREE, Routine 04/04/2022 8:11 Malignant Res ults for S AM CDT Neoplasm Of this procedure Brain (HCC) are in the results section. THYROID-STIMULATING Routine 04/04/2022 8:11 Malignant Resul ts for HORMONE-SENSITIVE AM CDT Neoplasm Of this proce dure (S-TSH) Brain (HCC) are in the results section. CBC WITH Routine 04/04/2022 8:11 Malignant Results for DIFFERENTIAL, B AM CDT Neoplasm Of this procedu re Brain (HCC) are in the results section. IODINE, S Routine 04/04/2022 8:11 Malignant Results for AM CDT Neoplasm Of this procedure Brain (HCC) are in the results section. OPTICAL COHERENCE Routine 03/25/2022 11:34 Malignant Result s for TOMOGRAPHY (OCT) - AM CDT Neoplasm Of this proc edure OPTIC NERVE - OU - Brain (HCC) are in th e BOTH EYES results section. OPHTHALMOLOGY IMAGE Routine 03/25/2022 11:25 Resu lts for EXAM AM CDT this procedure are in the results section. AUTOMATED VF - Routine 03/25/2022 10:46 Malignant Results f or EXTENDED - OU - BOTH AM CDT Neoplasm Of this pr ocedure EYES Brain (HCC) are in the results section. OPHTHALMOLOGY IMAGE Routine 03/25/2022 10:45 Resu lts for EXAM AM CDT this procedure are in the results section. ARIA DAILY TREATMENT Routine 03/14/2022 1:11 Resu lts for INFORMATION PM CDT this procedure are in the results section. ARIA DAILY TREATMENT Routine 03/13/2022 12:56 Res ults for INFORMATION PM CDT this procedure are in the results section. ARIA DAILY TREATMENT Routine 03/12/2022 1:19 Resu lts for INFORMATION PM CDT this procedure are in the results section. HEMATOLOGY/ONCOLOGY - Routine 03/11/2022 1:30 Res ults for BLOOD, EXTERNAL LAB PM CDT this pro cedure RESULTS are in the results section. ARIA DAILY TREATMENT Routine 03/11/2022 1:08 Resu lts for INFORMATION PM CDT this procedure are in the results section. ARIA DAILY TREATMENT Routine 03/08/2022 1:10 Resu lts for INFORMATION PM CDT this procedure are in the results section. ARIA DAILY TREATMENT Routine 03/07/2022 1:51 Resu lts for INFORMATION PM CDT this procedure are in the results section. ARIA DAILY TREATMENT Routine 03/06/2022 1:13 Resu lts for INFORMATION PM CDT this procedure are in the results section. ARIA DAILY TREATMENT Routine 03/05/2022 1:16 Resu lts for INFORMATION PM CDT this procedure are in the results section. HEMATOLOGY/ONCOLOGY - Routine 03/04/2022 3:40 Res ults for BLOOD, EXTERNAL LAB PM CDT this pro cedure RESULTS are in the results section. ARIA DAILY TREATMENT Routine 03/04/2022 1:06 Resu lts for INFORMATION PM CDT this procedure are in the results section. ARIA DAILY TREATMENT Routine 03/01/2022 1:14 Resu lts for INFORMATION PM CDT this procedure are in the results section. ARIA DAILY TREATMENT Routine 02/28/2022 1:07 Resu lts for INFORMATION PM CDT this procedure are in the results section. ARIA DAILY TREATMENT Routine 02/27/2022 1:22 Resu lts for INFORMATION PM CDT this procedure are in the results section. ARIA DAILY TREATMENT Routine 02/26/2022 1:03 Resu lts for INFORMATION PM CDT this procedure are in the results section. HEMATOLOGY/ONCOLOGY - Routine 02/26/2022 11:46 Re sults for BLOOD, EXTERNAL LAB AM CDT this pro cedure RESULTS are in the results section. ARIA DAILY TREATMENT Routine 02/22/2022 1:17 Resu lts for INFORMATION PM CDT this procedure are in the results section. ARIA DAILY TREATMENT Routine 02/21/2022 1:35 Resu lts for INFORMATION PM CDT this procedure are in the results section. ARIA DAILY TREATMENT Routine 02/20/2022 9:06 Resu lts for INFORMATION AM CDT this procedure are in the results section. ARIA DAILY TREATMENT Routine 02/19/2022 1:02 Resu lts for INFORMATION PM CDT this procedure are in the results section. ARIA DAILY TREATMENT Routine 02/18/2022 12:58 Res ults for INFORMATION PM CDT this procedure are in the results section. HEMATOLOGY/ONCOLOGY - Routine 02/18/2022 11:12 Re sults for BLOOD, EXTERNAL LAB AM CDT this pro cedure RESULTS are in the results section. ARIA DAILY TREATMENT Routine 02/15/2022 9:35 Resu lts for INFORMATION AM CDT this procedure are in the results section. ARIA DAILY TREATMENT Routine 02/14/2022 1:04 Resu lts for INFORMATION PM CDT this procedure are in the results section. ARIA DAILY TREATMENT Routine 02/13/2022 1:08 Resu lts for INFORMATION PM CDT this procedure are in the results section. HEMATOLOGY/ONCOLOGY - Routine 02/13/2022 9:30 Res ults for BLOOD, EXTERNAL LAB AM CDT this pro cedure RESULTS are in the results section. ARIA DAILY TREATMENT Routine 02/12/2022 8:51 Resu lts for INFORMATION AM CDT this procedure are in the results section. ARIA DAILY TREATMENT Routine 02/11/2022 8:25 Resu lts for INFORMATION AM CDT this procedure are in the results section. ARIA DAILY TREATMENT Routine 02/08/2022 1:39 Resu lts for INFORMATION PM CDT this procedure are in the results section. [facility] 02/07/2022 9:01 Resu lts for INFORMATION AM CDT this procedure are in the results section. [facility] 02/06/2022 2:50 Resu lts for INFORMATION PM CDT this procedure are in the results section. [facility] DAILY TREATMENT Routine 02/05/2022 4:41 Resu lts for INFORMATION PM CDT this procedure are in the results section. [facility] [place] Routine 02/05/2022 12:00 Result s for TEST 1 AM CDT this procedure are in the results section. [facility] Routine 02/05/2022 12:00 Results fo r CORPORATION AM CDT this procedure are in the results section. [facility]22 12:00 Malignant OUT LAB TEST AM CDT Neoplasm Of Brain (HCC) Family History Carrier Genetic Disease [facility] DAILY TREATMENT Routine 02/04/2022 9:32 Resu lts for INFORMATION AM CDT this procedure are in the results section. [facility] DAILY TREATMENT Routine 01/31/2022 10:14 Res ults for INFORMATION AM CDT this procedure are in the results section. [facility] COURSE COMPLETE Routine 01/30/2022 3:44 Resu lts for TREATMENT INFORMATION PM CDT this p rocedure are in the results section. INTERPRETATION OF RAD - Routine 01/28/2022 8:21 Malignant Result s for OUTSIDE MR HEAD (most inpatients PM CDT Neoplasm Of this pro cedure and all Brain (HCC) are in the outpatients) results section. HEMATOLOGY/ONCOLOGY - Routine 01/28/2022 1:45 Res ults for BLOOD, EXTERNAL LAB PM CDT this pro cedure RESULTS are in the results section. HEMATOLOGY/ONCOLOGY - Routine 01/28/2022 1:45 Res ults for BLOOD, EXTERNAL LAB PM CDT this [...] section. BASIC METABOLIC Routine 01/22/2022 6:48 Results f or PANEL, S/P AM CDT this procedure are in the results section. BASIC METABOLIC Routine 01/18/2022 9:38 Results f or PANEL, S/P AM CDT this procedure are in the results section. SODIUM, S/P Timed 01/13/2022 6:16 Results for PM CDT this procedure are in the results section. CT HEAD NECK RAD - Emergent 01/13/2022 3:30 Results fo r ANGIOGRAM WITH IV (Fastest; for the PM CDT this procedure CONTRAST most critically are in the ill patients) results section. CT HEAD WITHOUT IV RAD - Emergent 01/13/2022 3:30 Resu lts for CONTRAST (Fastest; for the PM CDT [...] section. BASIC METABOLIC Routine 01/12/2022 4:35 Results f or PANEL, S/P AM CDT this procedure are in the results section. BASIC METABOLIC Routine 01/11/2022 8:54 Results f or PANEL, S/P PM CDT this procedure are in the results section. EEG ROUTINE - AWAKE STAT 01/11/2022 1:29 Change Mental Resu lts for AND SLEEP PM CDT Status this procedure are in the results section. BASIC METABOLIC STAT 01/11/2022 7:12 Results f or PANEL, S/P AM CDT this procedure are in the results section. SODIUM, S/P STAT 01/10/2022 8:14 Results for PM CDT this procedure are in the results section. MR BRAIN WITHOUT AND RAD - Routine 01/10/2022 5:35 Malignant Res ults for WITH IV CONTRAST (most inpatients PM CDT Neoplasm Of this pr ocedure and all Brain (HCC) are in the outpatients) results section. PATIENT STATUS STAT 01/10/2022 2:06 Results fo r PM CDT this procedure are in the results section. GLUCOSE, WHOLE BLOOD STAT 01/10/2022 2:06 Resu lts for PM CDT this procedure are in the results section. POTASSIUM, B STAT 01/10/2022 2:06 Results for PM CDT this procedure are in the results section. SODIUM, B STAT 01/10/2022 2:06 Results for PM CDT this procedure are in the results section. CALCIUM, IONIZED, S/B STAT 01/10/2022 2:06 Res ults for PM [...] section. GLUCOSE, WHOLE BLOOD STAT 01/10/2022 9:02 Resu lts for AM CDT this procedure are in the results section. POTASSIUM, B STAT 01/10/2022 9:02 Results for AM CDT this procedure are in the results section. SODIUM, B STAT 01/10/2022 9:02 Results for AM CDT this procedure are in the results section. CALCIUM, IONIZED, S/B STAT 01/10/2022 9:02 Res ults for AM CDT this procedure are in the results section. ABG W/COOX STAT 01/10/2022 9:02 Results for AM CDT this procedure are in the results section. TYPE AND SCREEN STAT 01/10/2022 8:55 Results f or AM CDT this procedure are in the results section. LDA ANE ARTERIAL LINE Routine 01/10/2022 8:42 Res ults for INSERTION AM CDT this procedure are in the results section. AK ARTL CATH/CNULA Routine 01/10/2022 8:42 Result s for MONITOR PERC AM CDT this procedure are in the results section. LDA ANE ENDOTRACHEAL Routine 01/10/2022 8:22 Resu lts for AIRWAY AM CDT this procedure are in the results section. CRANIOTOMY 01/10/2022 7:50 Malignant STEREOTACTIC AM CDT Neoplasm Of Brain (HCC) SODIUM, S/P Timed 01/10/2022 6:33 Results for AM CDT this procedure are in the results section. SODIUM, S/P Timed 01/10/2022 12:57 Results for AM CDT this procedure are in the results section. OSMOLALITY, U Routine 01/09/2022 9:35 Results for PM CDT this procedure are in the results section. SODIUM, RANDOM, U Routine 01/09/2022 9:35 Results for PM CDT this procedure are in the results section. BASIC METABOLIC STAT 01/09/2022 8:01 Results f or PANEL, S/P PM CDT this procedure are in the results section. SARS CORONAVIRUS 2, Routine 01/09/2022 7:24 Resul ts for RNA, RAPID POC, V PM CDT this proce dure are in the results section. CBC WITHOUT Routine 01/09/2022 6:05 Results for DIFFERENTIAL, B PM CDT this procedu re are in the results section. HEMOGLOBIN A1C, B Routine 01/09/2022 5:58 Results for PM CDT this procedure are in the results section. ECG Routine 01/09/2022 4:44 Results for PM CDT this procedure are in the results section. MR BRAIN FUNCTIONAL RAD - Routine 01/09/2022 12:04 Mass Brain Res ults for LANGUAGE WITH MD (most inpatients PM CDT this pr ocedure ADMINISTRATION and all are in the outpatients) results section. from Last 3 Months Results (ABNORMAL) Bacterial Culture, Aerobic + Susc, Urine (04/04/2022 10:01 AM CDT) Component Value Ref Test Analysis [facility]ist Range Method Time Signature Urine With urogenital microbiota, susceptibilities not 04/08/2022 DTL Culture performed per laboratory criteria. 7:35 AM CDT (A) Urine STAPHYLOCOCCUS SAPROPHYTICUS 04/08/2022 DTL Culture >100,000 cfu/mL 7:35 AM CDT (A) Specimen Anatomical Collection Method Collection Time Receive d Time (Source) Location / / Volume Laterality Urine (Urine, 04/04/2022 10:01 04/04/2022 Midstream) AM CDT 11:52 AM CDT Comment: Specimen Source Site: Urine Organism Antibiotic Method Susceptibility Staphylococcus saprophyticus Oxacillin SUSCEPTIBILITY, JANNETH 0.5 mcg/mL: Susceptible (MCG/ML) Comment: Use oxacillin interpretation to predict results for anti-staphylococcal beta-lac townsend antibiotics (except ceftaroline). Staphylococcus Vancomycin SUSCEPTIBILITY, JANNETH 1 mcg/mL: Haley sceptible saprophyticus (MCG/ML) Staphylococcus Levofloxacin SUSCEPTIBILITY, JANNETH <=0.5 mcg/mL : saprophyticus (MCG/ML) Susceptible Comment: Fluoroquinolones have a limi anayeli role in treatment of staphylococcal infections; c onsult Infectious Diseases if considering usage. Staphylococcus Trimethoprim + SUSCEPTIBILITY, JANNETH <=0.5/9.5 mc g/mL: saprophyticus Sulfamethoxazole (MCG/ML) Susceptible Staphylococcus Nitrofurantoin SUSCEPTIBILITY, JANNETH <=32 mcg/mL: saprophyticus (MCG/ML) Susceptible Staphylococcus Rifampin SUSCEPTIBILITY, JANNETH <=0.5 mcg/mL : saprophyticus (MCG/ML) Susceptible Comment: Rifampin should not be used as monotherapy Vini Maki M.D., Ph.D. LAB MICROBIOLOGY - GENERAL ORDERABLES Performing Organization Address City/State/ZIP Code Phon e Number [facility] - [address] [place], [place] [address] [facility] [place] [address] [facility] [address] MR Brain Perfusion without and with IV [...] with biopsy performed 12/05/2021 and outside hospital. [place] review of out side pathology indicates IDH [...] with biopsy performed 12/05/2021 and outside hospital. [place] review of out side pathology indicates IDH [...] Christina Tai P.A.-C., M.S. IMG MRI PROCEDURES Iodine (04/04/2022 8:11 AM CDT) P athologist Signature Iodine, S 59 40 - 92 04/05/2022 6:58 SDS ng/mL PM CDT Comment: ----ADDITIONAL INFORMATION---- This test was developed and its performa nce characteristics determined by [facility] in a manner consistent with CLIA requirements. This test has not been cleared or approved by the [place] Vu d and Drug Administration. Specimen Anatomical Collection Method Collection Time Receive d Time (Source) Location / / Volume Laterality Blood (Blood, 04/04/2022 8:11 AM 04/04/20 22 Venous) CDT 10:33 AM CDT Rebeca Valle P.A.-C., M.S. LAB BLOOD NON ADD-ON Performing Organization Address City/State/ZIP Code Phon e Number [facility] [address] [place], [place] [address] [facility] [place] [address] Laboratory Medicine and Pathology [address] [place] (ABNORMAL) CBC with Differential, Blood (04/04/2022 8:11 AM CDT) Patholo gist Method Time Signature Hemoglobin 12.9 11.6 - 04/04/2022 DTL 15.0 g/dL 8:34 AM CDT Hematocrit 40.8 35.5 - 04/04/2022 DTL 44.9 % 8:34 AM CDT Erythrocytes 4.66 3.92 - 04/04/2022 DTL 5.13 8:34 AM CDT x10(12)/L MCV 87.6 78.2 - 04/04/2022 DTL 97.9 fL 8:34 AM CDT RBC Distrib Width 12.8 12.2 - 04/04/2022 DTL 16.1 % 8:34 AM CDT Platelet Count 254 157 - 371 04/04/2022 DTL x10(9)/L 8:34 AM CDT Leukocytes 3.7 3.4 - 9.6 04/04/2022 DTL x10(9)/L 8:34 AM CDT Neutrophils 2.64 1.56 - 04/04/2022 DTL 6.45 8:34 AM CDT x10(9)/L Lymphocytes 0.65 (L) 0.95 - 04/04/2022 DTL 3.07 8:34 AM CDT x10(9)/L Monocytes 0.32 0.26 - 04/04/2022 DTL 0.81 8:34 AM CDT x10(9)/L Eosinophils 0.09 0.03 - 04/04/2022 DTL 0.48 8:34 AM CDT x10(9)/L Basophils 0.03 0.01 - 04/04/2022 DTL 0.08 8:34 AM CDT x10(9)/L Specimen Anatomical Collection Method Collection Time Receive d Time (Source) Location / / Volume Laterality Blood (Blood, 04/04/2022 8:11 AM 04/04/20 22 8:21 Venous) CDT AM CDT Rebeca Valle P.A.-C., M.S. LAB BLOOD ADD-ON Performing Organization Address City/State/ZIP Code Phon e Number [facility] - [address] [place], [place] [address] [facility] [place] [address] [facility] [address] T3 (Triiodothyronine), Total (04/04/2022 8:11 AM CDT) P athologist Signature T3 131 80 - 200 04/04/2022 DTL (Triiodothyroni ng/dL 9:15 AM CDT ne), Total, S Specimen Anatomical Collection Method Collection Time Receive d Time (Source) Location / / Volume Laterality Blood (Blood, 04/04/2022 8:11 AM 04/04/20 22 8:41 Venous) CDT AM CDT Rebeca Valle P.A.-C., M.S. LAB BLOOD ADD-ON Performing Organization Address City/[facility]/ZIP Code Phon e Number [facility] - [address] [place], [place] [address] [place] [address] (ABNORMAL) S-TSH (Thyroid-Stimulating Hormone - Sensitive) (04/04/2022 8:11 AM CDT) athologist Signature TSH, Sensitive 0.08 (L) 0.3 - 4.2 04/04/2022 DTL mIU/L 9:15 AM CDT Specimen Anatomical Collection Method Collection Time Receive d Time (Source) Location / / Volume Laterality Blood (Blood, 04/04/2022 8:11 AM 04/04/20 22 8:41 Venous) CDT AM CDT Rebeca Valle P.A.-C., M.S. LAB BLOOD ADD-ON Performing Organization Address City/[facility]/ZIP [facility] Phon e Number [facility] - [address] [place], [place] [address] [place] [phone] T4 (Thyroxine), Free (04/04/2022 8:11 AM CDT) athologist Signature T4 (Thyroxine), 1.0 0.9 - 1.7 04/04/2022 DT Free, S ng/dL 9:15 AM CDT Specimen Anatomical Collection Method Collection Time Receive d Time (Source) Location / / Volume Laterality Blood (Blood, 04/04/2022 8:11 AM 04/04/20 22 8:41 Venous) CDT AM CDT Rebeca Valle P.A.-C., M.S. LAB BLOOD ADD-ON Performing Organization Address City/State/ZIP Code Phon e Number [facility] - [address] [place], [place] [address] [place] [address] Optical Coherence Tomography - Optic Nerve - OU - Both Eyes (03/25/2022 11:34 AM CDT) Specimen (Source) Anatomical Location Collection Method / Collectio n Time Received Time / Laterality Volume Narrative OPHTHALMOLOGY IMAGING EXAM - 03/25/20 22 6:53 PM CDT The interpretation report for this test can be found in the Testing section of the chart note dated 03/26/2022 Chas Shin M.D. OPHTH TOMOGRAPHY Performing Organization Address [facility]/ZIP Code Phon e Number OPHTHALMOLOGY IMAGING EXAM Optical Coherence Tomography (OCT)-Ophthalmology Image Exam (03/25/2022 11:25 AM CDT)Only the most recent of2 resultswithin the time period is included. Specimen (Source) Anatomical Collection Method Collection Time Re ceived Time Location / / Volume Laterality 03/25/2022 11:22 AM CDT Narrative IIMS - 03/25/2022 11:39 AM CDT This order has been created and auto-finalized to support the import of images acquired without order. The clini jordyn documentation to support these images can be found on the encounter mayuri t produced images. Provider Not In System IMG NON RAD IMAGING PROCEDUR ES Performing Organization Address [facility] Code Phon e Number IIMS IIMS NA Automated VF - Extended - OU - Both Eyes (03/25/2022 10:46 AM CDT) Specimen (Source) Anatomical Location Collection Method / Collectio n Time Received Time / Laterality Volume Narrative OPHTHALMOLOGY IMAGING EXAM - 03/25/20 22 6:53 PM CDT Right Eye Automated visual field device used was Z eiss. Strategy was MAYCO. Threshold was 24-2. Eyelid was untaped. Left Eye Automated visual field device used was Z eiss. Strategy was MAYCO. Threshold was 24-2. Eyelid was untaped. Notes The interpretation report for this test can be found in the Testing section of the chart note dated 03/26/2022 Chas Shin M.D. OPHTH VISUAL FIELD Performing Organization Address [facility]/ZIP Code Phon e Number OPHTHALMOLOGY IMAGING EXAM Aria Daily Treatment Information (03/14/2022 1:11 PM CDT)Only the most recent of 29 resultswithin the time period is included. [facility] gist Method Time Signature Course ID [id number] URENA ARIA Course Start Date URENA ARIA 2 08:23 CDT First Treatment URENA ARIA Date 2 10:11 CDT Last Treatment URENA ARIA Date 2 13:11 CDT Treatment Elapsed 42 URENA ARIA Days Reference Point [id number] URENA ARIA Dosage Given to 6000 URENA ARIA Date cGy Session Dosage 200 URENA ARIA Given Plan ID [id number] URENA ARIA Fractions Treated 30 URENA ARIA to Date Planned Total 30 URENA ARIA Fractions Prescribed Dose 200 URENA ARIA Per Fraction Prescription Dose 6000 URENA ARIA in cGy Plan Primary [id number] URENA ARIA Reference Point Specimen (Source) Anatomical Collection Method Collection Time Re ceived Time Location / / Volume Laterality 03/14/2022 1:11 PM CDT Provider Not In System RADIATION ONCOLOGY ORDERABLE S Performing Organization Address City/State/ZIP Code Phon e Number URENA JCA RUENA ARIA na (ABNORMAL) Hematology/Oncology - Blood, External Lab Results (03/11/2022 1:30 PM CDT)Only the most recent of7 resultswithin the time period is included. athologist [facility] EXT Hemoglobin 13.0 12 - 16 OTHER (SPECIFY IN MARKETING AMBASSADOR) EXT Leukocytes 3.7 (A) 4.50 - 11 OTHER (SPECIFY IN MARKETING AMBASSADOR) EXT Absolute 2.20 1.7 - 7 OTHER Neutrophil (SPECIFY IN Count MARKETING AMBASSADOR) EXT Lymphs 1 0.90 - 2.9 OTHER Absolute (SPECIFY IN MARKETING AMBASSADOR) EXT Platelet 235 140 - 440 OTHER Count (SPECIFY IN MARKETING AMBASSADOR) Specimen (Source) Anatomical Collection Method Collection Time Re ceived Time Location / / Volume Laterality Blood 03/11/2022 1:30 PM CDT Narrative This result has an attachment that is no t available. Historical Provider LAB BLOOD NON ADD-ON Performing Organization Address City/State/ZIP Code Phon e Number OTHER (SPECIFY IN MARKETING AMBASSADOR) OTHER (SPECIFY IN MARKETING AMBASSADOR) N/A [employer] (02/05/2022 12:00 AM CDT) athologist Signature Test Name [facility] 02/26/2022 [facility] single gene 1:54 PM CDT testing Result SEE COMMENT 02/26/2022 INVC 2:55 PM CDT Comment: For final report, select Lab-Send Out L ab Results hyperlink below. Specimen (Source) Anatomical Collection Method Collection Time Re ceived Time Location / / Volume Laterality Varies 02/05/2022 02/26/2022 1:54 PM CDT Narrative This result has an attachment that is no t available. Sanya Mehta M.D. LAB MISC ORDERABLES Performing Organization Address [facility] Phon e Number VFA [address] [place] [phone] [facility] VFA [address] [phone] [facility] [place] Test 1 (02/05/2022 12:00 AM CDT) athologist Signature Test Name [facility] 02/28/2022 [facility] Custom Panel 12:20 PM CDT Result SEE COMMENT 02/28/2022 MISC 1:57 PM CDT Comment: For final report, select Lab-Send Out L ab Results hyperlink below. Test Performed By: [facility] [address] [place] [phone] Specimen (Source) Anatomical Collection Method Collection Time Re ceived Time Location / / Volume Laterality Varies 02/05/2022 02/28/2022 12:2 0 PM CDT Narrative This result has an attachment that is no t available. Sanya Mehta M.D. LAB MISC ORDERABLES Performing Organization Address City/[facility] Phon e Number [facility] Course Complete Treatment Information (01/30/2022 3:44 PM CDT) [facility] gist Method Time Signature Course ID [id number] URENA ARIA Course Start Date URENA ARIA 2 13:19 CDT Course End Date URENA ARIA 2 15:43 CDT Reference Point icru ref URENA ARIA Dosage Given to 0 URENA ARIA Date cGy Plan ID [id number] URENA ARIA Fractions Treated 0 URENA ARIA to Date Planned Total 30 URENA ARIA Fractions Prescribed Dose 207 URENA ARIA Per Fraction Prescription Dose 6216.7 AYANNA ARECHIGA in cGy Plan Primary icru ref AYANNA ARECHIGA Reference Point Specimen (Source) Anatomical Collection Method Collection Time Re ceived Time Location / / Volume Laterality 01/30/2022 3:44 PM CDT Provider Not In System RADIATION ONCOLOGY ORDERABLE S Performing Organization Address City/State/ZIP Code Phon e Number AYANNA ARECHIGA na Interpretation of Outside MR Head (01/28/2022 [...] 8 mm in thickness. Interval decrease in [id number] midli ne shift with improved patency of the basilar cisterns. Mild leukoaraiosis. Patent intracranial arter ial flow voids. Procedure Note Marvin Cardenas Jr., M.D., Ph.D. - 02/2022 EXAM: INTERPRETATION OF OUTSIDE MR HEAD COMPARISON: Preoperative head MRI 2021. Postoperative head MRI 01/10/2022. 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 Initial left craniotomy and resection with rapid recurrent progressi ve tumor by MRI 12/10/2021. Repeat resection 01/10/2022. FINDINGS: Outside head MRI without and w ith gadolinium 01/28/2022. Since 01/10/2022 MRI the blood [...] 8 mm in thickness. Interval decrease in wczq-rb-[id number] midli ne shift with improved patency of [...] Organization Address City/State/ZIP Code Phon e Number IIMS IIMS NA Initial Rad Onc Treatment Planning CT Simulation (01/28/2022 11:43 AM CDT) Specimen (Source) Anatomical Location Collection Method / Collectio n Time Received Time / Laterality Volume Narrative URENA HAWK - 01/28/2022 11:43 AM CDT Zuly Blancas, RTT ? 01/28/2022 11:44 AM Initial Rad Onc Treatment Planning CT Si mulation Date/Time: 01/28/2022 11:43 AM Performed by: Stephanie Gleason M.D. Authorized by: Stephanie Gleason M.D. Stephanie Gleason M.D. RADIATION ONCOLOGY ORDERABLE S Performing Organization Address City/State/ZIP Code Phon e Number AYANNA gonzalez Basic Metabolic Panel (01/22/2022 6:48 AM CDT)Only [...] 01/22/2022 DTL Black/ mL/min/BSA 7:49 AM CDT [place] Comment: ----ADDITIONAL INFORMATION---- Estimated GFR calculated using the 2009 CKD_EPI creatinine equation. eGFR-Black/ >90 >=60 mL/min/BSA 2021 7:49 AM CDT DTL Comment: ----ADDITIONAL INFORMATION---- Estimated GFR calculated using the 2009 CKD_EPI creatinine equation. Calcium, Total, S 9.4 8.6 - 10.0 mg/dL 01/22/2022 7:49 AM CDT DTL Glucose, S 100 70 - 140 mg/dL 01/22/2022 7:49 AM CDT D TL Specimen Anatomical Collection Method Collection Time Receive d Time (Source) Location / / Volume Laterality Blood (Blood, 01/22/2022 6:48 AM 01/23/20 7:32 Venous) CDT AM CDT Benjamín Warner M.D. LAB BLOOD ADD-ON Performing Organization Address City/[facility]/ZIP Code Phon e Number [facility] [address] Sodium (01/13/2022 6:16 PM CDT)Only the most recent of8 resultswithin the time period is included. P athologist Signature Sodium, S 136 135 - 145 01/13/2022 7:31 DTL mmol/L PM CDT Specimen Anatomical Collection Method Collection Time Receive d Time (Source) Location / / Volume Laterality Blood (Blood, 01/13/2022 6:16 PM 01/14/20 6:49 Venous) CDT PM CDT Madiha Castro M.D. LAB BLOOD ADD-ON Performing Organization Address [facility] Phon e Number [address] Head without IV Contrast (01/13/2022 3:30 [...] stenosis , aneurysm, or focal injury. [place] and its proximal branch vessels [...] stenosis , aneurysm, or focal injury. [place] and its proximal branch vessels [...] stenosis , aneurysm, or focal injury. [place] and its proximal branch vessels [...] stenosis , aneurysm, or focal injury. [place] and its proximal branch vessels [...] COMPARISON: Multiple prior MRIs of the b [facility] most recently 01/09/2022 CLINICAL: History of grade [...] soft tissues. 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 Phon e Number [facility] - [address] [place], [place] [address] [place] [address] Sodium, B (01/10/2022 2:06 PM CDT)Only the most recent of4 resultswithin the time period is included. athologist Signature Sodium, B 138 135 - 145 01/10/2022 2:10 STMA mmol/L PM CDT Specimen Anatomical Collection Method Collection Time Receive d Time (Source) Location / / Volume Laterality Blood (Blood, 01/10/2022 2:06 PM 01/11/20 2:06 Arterial Line) CDT PM CDT Ana Vaz M.D. LAB BLOOD NON ADD-ON Performing Organization Address City/[facility] Phon e Number [facility] - [address] [place], [place] [address] [place] [address] (ABNORMAL) Blood Gas with Coox, Arterial (01/10/2022 2:06 PM CDT)Only the most recent of4 resultswithin the time period is included. athologist Signature pO2 168 (H) 83 - [...] / Volume Laterality Blood (Blood, 01/10/2022 2:06 PM 01/11/20 2:06 Arterial Line) CDT PM CDT Ana Vaz M.D. LAB BLOOD NON ADD-ON Performing Organization Address City/[facility] Phon e Number [facility] - [address] [place], [place] [address] [place] [address] [facility] [address] [facility] Potassium, Blood (01/10/2022 2:06 PM CDT)Only the most recent of4 resultswithin the time period is included. P athologist Signature Potassium, B 4.1 3.6 - 5.2 01/10/2022 STMA mmol/L 2:10 PM CDT Specimen Anatomical Collection Method Collection Time Receive d Time (Source) Location / / Volume Laterality Blood (Blood, 01/10/2022 2:06 PM 01/11/20 2:06 Arterial Line) CDT PM CDT Ana Vaz M.D. LAB BLOOD NON ADD-ON Performing Organization Address City/[facility] Phon e Number [facility] - [address] [place], [place] [address] [place] [address] [facility] [address] Glucose, Whole Blood (01/10/2022 2:06 PM CDT)Only the most recent of4 results within the time period is included. athologist Signature Glucose 118 70 - 140 01/10/2022 2:10 STMA mg/dL PM CDT Specimen Anatomical Collection Method Collection Time Receive d Time (Source) Location / / Volume Laterality Blood (Blood, 01/10/2022 2:06 PM 01/11/20 2:06 Arterial Line) CDT PM CDT Ana Vaz M.D. LAB BLOOD TROPONIN Performing Organization Address City/[facility] Phon e Number [facility] - [address] [place], [place] [address] Calcium, Ionized (01/10/2022 2:06 PM CDT)Only the most recent of4 resultswithin the time period is included. athologist Signature Calcium, 4.95 4.65 - 5.30 01/10/2022 STMA Ionized, B mg/dL 2:10 PM CDT Specimen Anatomical Collection Method Collection Time Receive d Time (Source) Location / / Volume Laterality Blood (Blood, 01/10/2022 2:06 PM 01/11/20 2:06 Arterial Line) CDT PM CDT Ana Vaz M.D. LAB BLOOD NON ADD-ON Performing Organization Address City/[facility] Phon e Number [facility] - [address] [place], [place] [address] [place] [id number] MR Stereotactic Frameless (01/10/2022 1:37 PM [...] centrally necrotic intra-axial mass from the left poehyms-hpsmpmw-ciwqzkbdy region. There is some fluid and gas [...] of the left lateral ventricle. 1 cm vqkr-oj-hwmpi mi dline shift at the level of [...] centrally necrotic intra-axial mass from the left gdiktfp-qgdpmpr-gnbamayxu region. There is some fluid and gas [...] of the left lateral ventricle. 1 cm dvuc-lo-iwfff mi dline shift at the level of [...] Component Value Ref Test Analysis Performed At [facility] Method Time Signature 01/14/2022 [facility] 5:24 PM CDT Participated in Kierra Wilson -Pathology Fellow 01/14/2022 [facility] the [place] Gracie Talley, M.D.-Pathology Resident 5:24 PM CDT Interpretation Liliam [...] of brain with extensive hemorrhage. ??Smears prepared. ??Table Top Tile Setter tissue submitted for permanent sections. ??A portion of tissue is collected for potential future ancillary studies. ??After clinical evaluation, residual tissue is procured for IRB [id number]. ??Grossed by Lashon Talley M.D.-Pathology Resident. B. ??Received fresh labeled left stereotactic tumor core is a 1.2 x 0.8 x 0.6 cm portion of brain. ??All submitted for permanent sections. ??Grossed by Don De La PazHSanjuanitaSSanjuanita, SAMMI([facility] C. ??Received fresh labeled left temporal brain lesion is a 3 x 3 x 0.5 cm aggregate of brain tissue admixed with blood. All submitted for permanent sections. ??After clinical evaluation, residual tissue is procured for IRB [id number]. Grossed by Don JohnsonH.SAMMI Rousseau([facility]). D. ??Received fresh within three CUSA traps labeled left temporal brain lesion cusa socks is a 6 x 6 x 1 cm aggregate of friable fragments of brain tissue admixed with blood. ??Table Top Tile Setter tissue submitted for permanent sections. ??After clinical evaluation, residual tissue is procured for IRB [id number]. ??Grossed by Beatriz Johnson.SAMMI Du([facility]). Block Summary A Left brain temporal [...] FINAL DIAGNOSIS 01/15/2022 2:[address]-D. 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 See comment. 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 The biopsy specimen lacked microvascular proliferation and tumor necrosis. By immunohistochemistry, the tumor cells were negative for IDH1-R132H and showed retained ATRX expression. 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 Specimen (Source) Anatomical Collection Method Collection Time Re ceived Time Location / / Volume Laterality Tissue (Brain, 01/10/2022 12:03 Left) PM CDT Comment: IRB #[id number] Tissue (Brain, Left) 01/10/2022 2:36 PM C DT Comment: IRB #[id number] Tissue (Brain, Left) 01/10/2022 2:57 PM C DT Comment: IRB #[id number] Tissue (Brain, Left) 01/10/2022 3:07 PM C DT Comment: IRB #[id number] Narrative This result has an attachment that is no t available. Charles Ivey M.D., Ph.D. LAB SURG PATH ORDERABLES Performing Organization Address [facility] Code Phon e Number [facility] - [address] [place] [id number] [address] Type and Screen (with reflex Antibody ID) (01/10/2022 8:55 AM CDT) [facility] gist Method Time Signature ABORh O Neg Not 01/10/2022 STRM applicable 9:48 AM CDT Antibody Negative Negative 01/10/2022 STRM Screen 9:59 AM CDT Type & Screen 01/13/2022 01/10/2022 STRM Expiration 23:59 9:48 AM CDT Testing [place] DEFAULT 01/10/2022 STRM Location 9:04 AM CDT Specimen Anatomical Collection Method Collection Time Receive d Time (Source) Location / / Volume Laterality Blood (Blood, 01/10/2022 8:55 AM 01/11/20 9:04 Arterial Line) CDT AM CDT Resulting Agency Comment Drawn in [id number] by [email or web address] Ana Vaz M.D. LAB BLOOD BANK TEST ORDERABL ES Performing Organization Address [facility] Code Phon e Number [facility] - [address] [place] [address] [facility] [place] [address] [address] [place] ARTL CATH/CNULA MONITOR PERC, LDA ANE ARTERIAL LINE INSERTION (01/10/2022 8:42 AM CDT) Narrative Nicholas Higuera APRN, SOLAR ENERGY SYSTEM INSTALLER HELPER - 022 8:42 AM CDT Nicholas Higuera APRN, SOLAR ENERGY SYSTEM INSTALLER HELPER ? 01/10/2022 ??9:48 AM Invasive Catheter Date/Time: [...] ETT location: oral VL device: glide scope [place] scope blade size: 3 Adult tube size: [...] / Volume Laterality Urine (Urine, 01/09/2022 9:35 PM 01/10/20 22 Catheter) CDT 10:12 PM CDT Madiha Castro M.D. LAB URINE ORDERABLES Performing Organization Address City/[facility]/ZIP Code Phon e Number [facility] - [address] [place], [place] [address] [facility] [place] [address] Laboratories-[facility] 200 [facility] Osmolality, Urine (01/09/2022 9:35 PM CDT) athologist Signature Osmolality, U 707 150 - 1150 01/09/2022 DTL mOsm/kg 10:42 PM CDT Specimen Anatomical Collection Method Collection Time Receive d Time (Source) Location / / Volume Laterality Urine (Urine, 01/09/2022 9:35 PM 01/10/20 22 Catheter) CDT 10:12 PM CDT Madiha Castro M.D. LAB URINE ORDERABLES Performing Organization Address City/[facility] Phon e Number [facility] - [address] [place], [place] [address] [facility] [place] [address] Laboratories-[facility] [address] [facility] SARS Coronavirus 2, RNA, Rapid POC, V Asymptomatic (01/09/2022 7:24 PM CDT) [facility] Method Time Signature SARS Undetected Undetected 01/09/2022 DTLR Coronavirus-2 7:47 PM CDT , RNA, Rapid POC, V Comment: Negative for SARS-CoV-2. The [employer] COVID-19 test is a molecular watson t for SARS-CoV-2, the virus that causes COVID- 19. A Negative result means that the [employer] COV ID-19 test did not detect SARS-CoV-2 virus in your sample. [employer] COVID-19 test uses the [employer] System. This test has received Emergency Use Authorization (EUA) by the U.S. Food and Drug Administration (FDA) and is used per man ufacturer instructions. Performance characteristic s were verified by [facility] in a manner consistent with CLIA requirements. Fact sheets for this Emerg ency Use Authorization (EUA) can be found at the following links: Providers: https://[employer]/documentation/prov iders.pdf Patients: https://[employer]/documentation/tylor ents.pdf SARS Coronavirus 2, Source Nasopharynx DEFAULT 01/09/2022 7:47 PM CDT DTLR Specimen Anatomical Collection Method Collection Time Receive d Time (Source) Location / / Volume Laterality Varies 01/09/2022 7:24 PM 7:24 (Nasopharynx) CDT PM CDT Christina Tai P.A.-C., M.S. LAB MICROBIOLOGY - GENERAL ORDERABLES Performing Organization Address City/State/ZIP Code Phon e Number PERFORMING LABS, [place] [address] INTERFACE Ref Interface [address] [facility] DTLR Performing Labs, [place] [address] Interface [address] [facility] (ABNORMAL) CBC without Differential (01/09/2022 6:05 PM CDT) [facility] Method Time Signature Hemoglobin 12.2 11.6 - [...] / Volume Laterality Blood (Blood, 01/09/2022 6:05 PM 01/10/20 22 6:27 Venous) CDT PM CDT Christina Tai P.A.-C., M.S. LAB BLOOD ADD-ON Performing Organization Address City/[facility] Phon e Number [facility] [address] Hemoglobin A1c (01/09/2022 5:58 PM CDT) athologist Signature Hemoglobin A1c, 5.1 4.0 - 5.6 01/09/2022 DT B % 7:58 PM CDT Specimen Anatomical Collection Method Collection Time Receive d Time (Source) Location / / Volume Laterality Blood (Blood, 01/09/2022 5:58 PM 01/10/20 22 7:40 Venous) CDT PM CDT Marysol Martinez M.D. LAB BLOOD ADD-ON Performing Organization Address City/[facility] Phon e Number [facility] - [address] [place], [place] [address] [place] [address] ECG 12 Lead (01/09/2022 4:44 PM CDT) athologist Signature Ventricular Rate 54 BPM MUSE ECG/Min [place] Interval 138 ms MUSE QRSD Interval 86 ms MUSE QT Interval 424 ms MUSE QTC Interval 402 ms MUSE P [place] 27 degrees MUSE R [place] 44 degrees MUSE T Wave [place] 54 degrees MUSE Specimen Anatomical Collection Method Collection Time Receive d Time (Source) Location / / Volume Laterality 01/09/2022 4:44 PM 2 4:45 CDT PM CDT Impressions MUSE - 01/09/2022 4:45 [...] previous ECGs available Reviewed by RAMILA Plascencia Chrisitna Tai P.A.-C., M.S. ECG ORDERABLES Performing Organization Address City/State/ZIP Code Phon e Number MUSE MUSE NA MR Brain Functional Language with MD [...] the appearance and size of the left oellvta-pnkwvljh-kvaqcakp mass since 03/2022. The mass demonstrates new [...] tasks with extended practice. She struggled with chelii ng when to use the hand-held response [...] were acquired and statistically evaluated with the Apprion workstation using AFNI based correlation analysis. Training: [...] statis tic filtered 2. ??Task: ??Sentence completion [facility] Patient self-assessment of performance: ?Adequate Technologist [...] Statistical methods: ?T statistic Procedure Note Gilberto oCffey M.D. - 01/09/2022Format ting of this note might be different from the original. 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 Anatomic Findings: There has been substa ntial change in the appearance and size of the left geayajl-hvobsmck-kcdnvvfo mass since 03/2022. The mass demonstrates new [...] left thalamus. Diffusion Tensor Findings: There is loss of anisotropy of the left inferior fronto-occipital fasciculus and inferior longitudinal fas ciculus. The superior longitudinal fasciculus is not well visualized. Perfusion Findings: The enhancing periph tristen demonstrates increased rCBV. Cerebrovascular Reactivity (breath hold) Findings: No convincing evidence of neurovascular decoupling. Functional Findings: The patient had dif ficulty understanding and performing the language tasks. During the training, she appeared to und erstand the general concept of the tasks with extended practice. She struggled with chelii ng when to use the hand-held response [...] were acquired and statistically evaluated with the Apprion workstation using AFNI based correlation analysis. Training: The patient was trained in the selected fMRI tasks by Dr. Coffey. The patient's ability to perform these tasks was assessed greta sarah the training session. 1. Task: Rhyming SMS Patient self-assessment of performance: Inadequate Technologist assessment of performance: Inadequate Accuracy: 11.7% Average response time: 1.7sec Head motion: 0.4mm Statistical methods: T statistic filtere d 2. Task: Sentence completion [facility] Patient self-assessment of performance: Adequate Technologist assessment of performance: Adequate Head motion: 0.6mm Statistical methods: T statistic filtere d 3. Task: Semantic decision Patient self-assessment of performance: Inadequate Technologist assessment of performance: Inadequate Accuracy: 0% Head motion: 0.6mm Statistical methods: T statistic filtere d 4. Task: Breath hold Patient self-assessment of performance: Adequate Technologist assessment of performance: Adequate Head motion: 0.5mm Statistical methods: T statistic IMPRESSION: 1. Technically difficult examination wit h [...] Insurance Payer Benefit Plan Subscriber ID Effective Dates Phone Address Type / Group [facility] [id number] 2022-Presen [phone] [id number] Medicaid HMO t [address] [place] [address] Advance Directives For more information, please contact: [phone] Latest Code Status on File Code Status [...]
--- OUTSIDE RECORDS SUMMARY | 2022-04-10 09:37 | XMS_ITS ---
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 Testing in 2021 from [facility]. As of 2021, there is no confirmed relationship bet ween pathogenic CHEK2 mutations and glio blastoma. Malignant Neoplasm Of Brain 12/31/2021 Current Oncology Plans Temozolomide ( with Radiation ) followed by TemozolomidePlan Start Date:01/29/2022 Plan Provider:Rebeca Valle P.A.-C., M.S. Linked Problems Malignant Neoplasm Of Brain (HCC) Treatment Medications Current Day (Day 1, Cycle 2 - Next Day (Day 1, Cycle 3 - Planned for 04/10/2022) Planned for 2021) temozolomide (TEMODAR) temozolomide (TEMODAR) capsule temozo lomide (TEMODAR) capsule 320 mg 425 mg Temozolomide 7 Days On / Off ( [employer]CH[employer] - Glioma )Plan Start Date:04/04/2022 Plan Provider:Vini Maki M.D., Ph.D. Linked Problems Malignant Neoplasm Of Brain (HCC) Treatment Medications Current Day (Day 1, Cycle 2 - Next Day (Day 1, Cycle 3 - Planned for 05/13/2022) Planned for 06/10) temozolomide (TEMODAR) temozolomide (TEMODAR) 100 mg temozol omide (TEMODAR) 100 mg capsule capsule VASCULAR ACCESS PATENCY - PERIPHERAL INTRAVENOUS CATHETER AND RAPID INFUSION CATHETERPlan Start Date:04/04/2022 Linked Problems Malignant Neoplasm Of Brain (HCC) Treatment Medications No medications scheduled. Past Plans No past plan information found. Radiation Treatments Plan Last Treated Elapsed Days Fractions Prescribed Prescribed Total On Treated Fraction Dose Dose [id number] 03/14/2022 42 30 of 30 200 cGy 6,000 cGy Reference Point Last Treated On Elapsed Days Session Dose Total Dos e [id number] 03/14/2022 42 200 cGy 6,000 cGy
--- OUTSIDE RECORDS SUMMARY | 2022-04-10 09:37 | XMS_ITS | Encounter Summary ---
:1970 Author Organization [facility] Address [address] [place] [address] Care Team Providers Name Role Phone Unavailable Primary Care Provider Unavailable Reason for Visit Outpatient (Routine) - Closed Specialty Diagnoses / Procedures Referred By Contact Refer red To Contact Endocrinology Diagnoses Hyperthyroidism Subclinical Farzana Allen M.D. [facility] [address] [place] [phone] Referral ID Status Reason Start Date Expiration Date Visits Requ ested Visits Authorized [id number] Closed 02/27/2022 02/27/2023 1 1 Encounter Details Date Type Department Care Team Description 03/29/2022 Comprehensive Visit Division of Arabella Allen M.D. [address] [place] [phone] Hyperthyroidism (Primary Dx); Endocrinology in Jayna Dejesus M.B.B.S. [address] [place] [phone] Hyperthyroidism Subclinical; [place], [place] Abnormal Thyroid Blood Test [address] [place] [address] [phone] Social History Tobacco Use Types Packs/Day Years [...] or relatives? How often do you attend congregation or More than 4 times per year 01/07/2022 jew services? Do you belong to any clubs or No 01/07/2022 organizations such as congregation groups, unions, [employer] or athletic groups, or school groups? How [...] completed or the highest Maulik, MEd, PROJECT CONTROLS SPECIALIST, 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 Sex Assigned at Date Recorded Female 01/07/2022 11:11 AM CDT documented as of this encounter Consult Notes Bobby Gunn M.D. - 03/29/2022 1:30 PM CDT SUBJECTIVE HISTORY OF PRESENT ILLNESS I visited with Ms. Cedillo regarding concerns for thyroid dysfunction, and I agree with Dr. Dejesus's history, physical exam, and management plan. In brief, this lady has a long history of multinodular goiter that has been evaluated outside of [facility] and found to be benign and euthyroid. She is now undergoing combination therapy for glioblastoma for the last few months, and in this setting, her thyroid tests were found to have normal T3 and T4, but a suppressed TSH, reason for this evaluation. There aresystemic symptoms with weight loss and fatigue along with some fluctuations in heart rate. OBJECTIVE PHYSICAL EXAMINATION General: She is a pleasant lady in no physical distress. Skin: Warm without diaphoresis. Neck: No scars. Good range of motion and a thyroid of about 15 g, slightly bosselated, nontender, and symmetric. The nodules are not clearly identifiable, and there is no cervical adenopathy. ASSESSMENT / PLAN #1 Abnormal thyroid function tests with suppressed TSH This is somewhat challenging, as we could be dealing with a form of central hypothyroidism that might be transient, related to her recent systemic therapy for glioblastoma or a toxic multinodular goiter. Let us repeat the thyroid test and see how they behave and then decide if we need to obtain an iodine scan. Further details per Dr. Dejesus. Bobby Gunn M.D. CT CT Job ID: [id number] Jayna Dejesus M.B.B.S. - 03/29/2022 1:30 PM CDT SUBJECTIVE CHIEF COMPLAINT / REASON FOR VISIT Mia Richardson is a 51 y.o. female with Glioblastoma Multiforme s/p surgery and chemoradiation (with temozolomide), history of thyroid nodules, benign on FNA in 2010 presenting with fatigue and abnormally suppressed TSH. HISTORY OF PRESENT ILLNESS Ms. Cedillo, has been noted to have TSH <1 usually between 0.3 to 0.5 since 2002. Free T4 has always been within normal limits. Thyroid US in 2010 obtained due to low TSH of 0.3 showed multinodular thyroid gland with a dominant slightly heterogenous mixed echogenicity nodule in the left lobe 2x1.4 x 1.1 cm. FNA of this nodule was performed and was found to be benign colloid nodule Follow up Thyroid US in 2013 showed stable bilateral nodules in the thyroid gland. No further evaluation pursued. She has never taken ant thyroid suppressing medications or hormone replacement. In early 2021, she began to experience headaches which led to the identification of her GBM - biopsyon 12/05/2021 followed by surgery on 01/10/2022. She then received temozolomide along with radiation therapy from 01/31 to 03/14/2022. Over the last few weeks has been experiencing increasing fatigue, decreased energy, hair loss predominantly at site of radiation) and cold intolerance. She has also unintentionally lost about 20 lbs since diagnosis of her GBM. Thyroid function testing at outside facility. 2018 - TSH 0.3, Free t4 1.05 05/2020 - TSH 0.57 02/13/2022 - TSH 0.015 02/26/2022 - TSH <0.015, Free T4 1.2 Thyroid US not repeated. She has not been on biotin supplementation. Received iodinated contrast for CT on 11/29/2021 and 12/01/[address] angio on 01/13/2022. The following portions of the patient's history were reviewed and updated as appropriate: allergies,current medications, family history, medical history, social history, surgical history, and problem list. OBJECTIVE PHYSICAL EXAM Physical Exam Gen: the patient appears comfortable, alert, awake, in no distress HEENT: No scar thyroid is not enlarged, no discrete palpable nodules, mobile on swallowing, no lymphadenopathy CVS: S1 and S2 normal, regular rate and rhythm, HR 70 Chest: non labored breathing on room air Ext: No pitting edema Skin: Unremarkable, non diaphoretic Neuro: Alert and oriented x 3, normal gait and balance. ASSESSMENT / PLAN #1 Abnormal thyroid function tests with suppressed TSH #2 Multinodular thyroid with prior benign FNA #3 Glioblastoma multiforme s/p surgery and radiation therapy Mrs. Cedillo is presenting for evaluation of suppressed TSH, most recently <0.015 with normal Free T4. She has notably had lower TSH in the 0.3 to 0.5 range for several years without any symptoms. Her current symptoms are fatigue, weight loss and cold intolerance which do not suggest a clear etiology. This could potentially be central hypothyroidism related to her GBM and related surgery and radiation or it could be from a toxic multinodular goiter. She also received iodinated contrast several times over the last few months which could have caused a transient hyperthyroid state. We will need additional evaluation to differentiate. We will get repeat thyroid function testing. If TSH is persistently low, we will proceed with an iodine uptake scan. I will follow up with her after results. Recommendations - Repeat TSH, Free T4 and Total T3 - Check iodine levels given recent iodine exposure - Consider uptake scan if TSH suppressed - Follow up after testing The case was discussed with clinical services consultant, Dr. Gunn, who is in agreement with this assessment and plan for treatment. Kierra Gautam. Endocrinology Fellow, [id number] [phone] 03/31/22 documented in this encounter Plan of Treatment Upcoming Encounters Date Type Specialty Care Team Description 05/03/2022 Telemedicine Clinical Genomics Sanya Mehta M.D. [address] [place] [phone] 05/06/2022 Clinical Communication Admitting/Central Scheduling 05/09/2022 Office Visit Oncology Farzana Allen M.D. [address] [place] [phone] 05/17/2022 Clinical Communication Admitting/Central Scheduling 05/21/2022 Lab Laboratory Medicine Vini Maki M.D., Ph.D. [address] [place] [phone] 05/21/2022 Appointment Radiology Vini Maki M.D., Ph.D. [address] [place] [phone] 05/21/2022 Office Visit Oncology Vini Maki M.D., Ph.D. [address] [place] [phone] 06/11/2022 Ancillary Procedure Ophthalmology Chsa Shin M.D. [address] [place] [address] [phone] 06/11/2022 Ancillary Procedure Ophthalmology Chas Shin M.D. [address] [place] [phone] 06/11/2022 Office Visit Ophthalmology Chas Shin M.D. 200 [place] [phone] Scheduled Orders Name Type Priority Associated Diagnoses Order S chedule Iodine Lab Routine Abnormal Thyroid Blood Expec anayeli: 03/29/2022 Test (Approximate), Expires: 06/29/2023 S-TSH Lab Routine Abnormal Thyroid Blood Expec anayeli: 03/29/2022 (Thyroid-Stimulating Test (Approx imate), Expires: Hormone - Sensitive) 023 T4 (Thyroxine), Free Lab Routine Abnormal Thyroid Blo od Expected: 03/29/2022 Test (Approximate), Expires: 06/29/2023 T3 (Triiodothyronine), Lab Routine Abnormal Thyroid B lood Expected: 03/29/2022 Total Test (Approximate), Expires: 06/29/2023 documented as of this encounter Visit Diagnoses Diagnosis Hyperthyroidism - Primary Hyperthyroidism Subclinical Abnormal Thyroid Blood Test documented in this encounter
--- OUTSIDE RECORDS SUMMARY | 2022-04-10 09:37 | XMS_ITS | Encounter Summary ---
:1970 Author Organization [facility] Address [address] [place] [address] Care Team Providers Name Role Phone Unavailable Primary Care Provider Unavailable Reason for Visit Outpatient (Routine) - Closed Specialty Diagnoses / Procedures Referred By Contact Refer red To Contact Neurological Surgery Diagnoses Tumor Brain (HCC) Christina [facility] Beatriz PJarad., M.S. [address] [place] [phone] Referral ID Status Reason Start Date Expiration Date Visits Requ ested Visits Authorized [id number] Closed 01/11/2022 01/11/2023 1 1 Encounter Details Date Type Department Care Team Description 04/04/2022 Office Visit Department of Charles Ivey, Tumor Bra in (HCC) Neurologic Surgery in M.D., Ph.D . [place], [place] [address] [place] [address] [place] [phone] Social History Tobacco Use Types Packs/Day Years [...] or relatives? How often do you attend hindu or More than 4 times per year 01/07/2022 pentecostalism services? Do you belong to any clubs or No 01/07/2022 organizations such as hindu groups, unions, fra[employer] or athletic groups, or school groups? How [...] have completed or the highest Maulik, MEd, TOOL SETTER, 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 Sex Assigned at Date Recorded Female 01/07/2022 11:11 AM CDT documented as of this encounter Progress Notes Joel Alonzo M.D. - 04/04/2022 1:00 PM CDT SUBJECTIVE CHIEF COMPLAINT / REASON FOR VISIT Mia Richardson is a 51 y.o. female who presents for evaluation of No chief complaint on file.. HISTORY OF PRESENT ILLNESS Mia Richardson is a 51 y.o. female with with left temporal grade 3 astrocytoma, IDH wildtype, MGMT unmethylated status post biopsy and subtotal resection on 12/05/21 at [facility] followed by left temporoparietal craniotomy on Jan [address] Ivey with pathology results showing glioblastoma IDH-wildtype, ATRX positive, TERT mutation, MGMT unmethylated. She recently completed concomitant chemo radiation. See feels like her initial difficulties with memory, language and vision are slowly improving. She still has some mild naming errors. She is able to remember and retain new memories. Currently she is able to accommodate binocular vision after adjusting for few minutes. Before she was struggling with right-sided visual difficulties. Past Surgical History: Procedure Laterality Date CRANIOTOMY - STEREOTACTIC Left 01/10/2022 Procedure: Asleep left temporoparietal stereotactic craniotomy tumor resection, speech mapping, supine position, intraoperative MRI, BK ultrasound.; Surgeon: Charles Ivey M.D., Ph.D.; Location: [facility] OR CRANIOTOMY FOR TUMOR Left 12/05/2021 TONSILLECTOMY REVIEW OF SYSTEMS: Constitutional: Positive for fatigue, loss of appetite and night sweats. Skin: Positive for skin rash. Eyes: Positive for visual problems. ENT: Positive for difficulty hearing. Gastrointestinal: Positive for constipation and nausea. Neurological: Positive for light-headedness and headaches. Psychiatric/Behavioral: Positive for excessive daytime sleepiness/tiredness, little interest or pleasure in doing things over past two weeks, feeling down, depressed, or hopeless over past two weeks and feeling nervous, anxious, or on edge in past two weeks. The following systems were negative: Respiratory, Cardiovascular, Genitourinary, Hematologic, Musculoskeletal OBJECTIVE PHYSICAL EXAM General: NAD, awake, alert Neuro: Alert and oriented x3: to self,time and place Speech: fluent with intact repetition, comprehension, with very few naming errors. Visual garcia: Some errors on the right side visual garcia Rest of cranial nerves intact and symmetric Motor: 5/5 strength throughout Sensation intact to light touch symmetrically 2+ patellar reflexes bilaterally No dysmetria Normal gait Surgical wound clean dry intact Imaging: MRI brain with contrast done today: Showing a small area of enhancement on the anterior margin of the resection cavity on the left temporal lobe. ASSESSMENT / PLAN Mia Richardson is a 51 y.o. female with with left temporal grade 3 astrocytoma, IDH wildtype, MGMT unmethylated status post biopsy and subtotal resection on 12/05/21 at [facility] followed by left temporoparietal craniotomy on Jan [address] Ivey with pathology results showing glioblastoma IDH-wildtype, ATRX positive, TERT mutation, MGMT unmethylated. She recently completed concomitant chemo radiation. Dr. Ivey and I extensively discussed the clinical and radiological findings in the context of the timing with the recent completion of concomitant chemo radiation. The results are expected within thistime frame. At this point in time it is difficult to say whether these imaging findings are radiation necrosis or tumor progression. We discussed with patient and speech/language therapist to consider the option of tumor treating garcai. Plan is to follow up as needed seems she has follow-up with oncology, Ophthalmology, and Endocrinology. Joel Pride MD Neurosurgical Oncology Clinical Fellow Department of Neurosurgery [place], [place] Associated attestation - Charles Ivey M.D., Ph.D. - 04/06/2022 11:04 AM CDT I saw the patient with Dr. Gerry Pride and agree with his documentation. Incision has healed very well; she has no recollection of the prior pre- operative visit or early post-operative periods, havingpresented in extremis with rapid neurological decline and severe headaches. She is now doing vastly b marco than prior to surgery. Appreciate Dr. Maki's neuro-oncological management. documented in this encounter Plan of Treatment Upcoming Encounters Date Type Specialty Care Team Description 05/03/2022 Telemedicine Clinical Genomics Sanya Mehta M.D. [address] [place] [address] [phone] 05/06/2022 Clinical Communication Admitting/Central Scheduling 05/09/2022 Office Visit Oncology Farzana Allen M.D. [address] [place] [address] [phone] 05/17/2022 Clinical Communication Admitting/Central Scheduling 05/21/2022 Lab Laboratory Medicine Vini Maki M.D., Ph.D. [address] [place] [phone] 05/21/2022 Appointment Radiology Vini Maki M.D., Ph.D. [address] [place] [phone] 05/21/2022 Office Visit Oncology Vini Maki M.D., Ph.D. [address] [place] [address] [phone] 06/11/2022 Ancillary Procedure Ophthalmology Chas Shin M.D. [address] [place] [phone] 06/11/2022 Ancillary Procedure Ophthalmology Chas Shin M.D. [address] [place] [address] [phone] 06/11/2022 Office Visit Ophthalmology Chas Shin M.D. [address] [place] [address] [phone] documented as of this encounter Visit Diagnoses Diagnosis Tumor Brain (HCC) documented in this encounter
--- OUTSIDE RECORDS SUMMARY | 2022-04-10 09:37 | XMS_ITS | Encounter Summary ---
:1970 Author Organization [facility] Address [address] [place] [address] Care Team Providers Name Role Phone Unavailable Primary Care Provider Unavailable Encounter Details Date Type Department Care Team Description 04/04/2022 Lab Department of Infusion Rebeca Valle, Malignant Neoplasm Of Therapy in [place], P.A.-C., M .S. Brain (HCC) (Primary Dx) [address] 200 [place] [phone] (Wo rk) Social History Tobacco Use Types [...] or relatives? How often do you attend druze or More than 4 times per year 01/07/2022 faith services? Do you belong to any clubs or No 01/07/2022 organizations such as druze groups, unions, fraternal or athletic groups, or [...] have completed or the highest Maulik, MEd, MAINTENANCE TRUCK DRIVER, 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 Sex Assigned at Date Recorded Female 01/07/2022 11:11 AM CDT documented as of this encounter Plan of Treatment Upcoming Encounters Date Type Specialty Care Team Description 05/03/2022 Telemedicine Clinical Genomics Sanya Mehta M.D. [address] [place] [phone] 05/06/2022 Clinical Communication Admitting/Central Scheduling 05/09/2022 Office Visit Oncology Farzana Allen M.D. [address] [place] [phone] 05/17/2022 Clinical Communication Admitting/Central Scheduling 05/21/2022 Lab Laboratory Medicine Vini Maki M.D., Ph.D. [address] [place] [phone] 05/21/2022 Appointment Radiology Vini Maki M.D., Ph.D. [address] [place] [phone] 05/21/2022 Office Visit Oncology Vini Maki M.D., Ph.D. [address] [place] [phone] 06/11/2022 Ancillary Procedure Ophthalmology Chas Shin M.D. [address] [place] [phone] 06/11/2022 Ancillary Procedure Ophthalmology Chas Shin M.D. [address] [place] [phone] 06/11/2022 Office Visit Ophthalmology Chas Shin M.D. [address] [place] [phone] documented as of this encounter Procedures Procedure Name Priority Date/Time Associated Diagnosis Comme nts IODINE, S Routine 04/04/2022 8:11 AM Malignant Neoplasm Res ults for this CDT Of Brain (HCC) procedure are in the results section. CBC WITH Routine 04/04/2022 8:11 AM Malignant Neoplasm Res ults for this DIFFERENTIAL, B CDT Of Brain (HCC) procedure are in the results section. T3 Routine 04/04/2022 8:11 AM Malignant Neoplasm Res ults for this (TRIIODOTHYRONINE), CDT Of Brain (HCC) proced ure are in TOT, S the results section. THYROID-STIMULATING Routine 04/04/2022 8:11 AM Malignant Neopl asm Results for this HORMONE-SENSITIVE CDT Of Brain (HCC) procedur e are in (S-TSH) the results section. T4 (THYROXINE), Routine 04/04/2022 8:11 AM Malignant Neoplasm Results for this FREE, S CDT Of Brain (HCC) procedure are in the results section. documented in this encounter Results T3 (Triiodothyronine), Total (04/04/2022 8:11 AM CDT) P athologist Signature T3 131 80 - 200 04/04/2022 DTL (Triiodothyroni ng/dL 9:15 AM CDT ne), Total, S Specimen Anatomical Collection Method Collection Time Receive d Time (Source) Location / / Volume Laterality Blood (Blood, 04/04/2022 8:11 AM 04/04/20 22 8:41 Venous) CDT AM CDT Rebeca Valle P.A.-C., M.SSanjuanita LAB BLOOD ADD-ON Performing Organization Address City/[facility]/ZIP Code Phon e Number [facility] - 200 [place], [place] [address] [place] [address] T4 (Thyroxine), Free (04/04/2022 8:11 AM CDT) athologist Signature T4 (Thyroxine), 1.0 0.9 - 1.7 04/04/2022 DT Free, S ng/dL 9:15 AM CDT Specimen Anatomical Collection Method Collection Time Receive d Time (Source) Location / / Volume Laterality Blood (Blood, 04/04/2022 8:11 AM 04/04/20 22 8:41 Venous) CDT AM CDT Rebeca Valle P.A.-C., M.S. LAB BLOOD ADD-ON Performing Organization Address City/[facility] Phon e Number [facility] - 200 [place], [place] [address] [place] [address] (ABNORMAL) S-TSH (Thyroid-Stimulating Hormone - Sensitive) (04/04/2022 8:11 AM CDT) athologist Signature TSH, Sensitive 0.08 (L) 0.3 - 4.2 04/04/2022 DT mIU/L 9:15 AM CDT Specimen Anatomical Collection Method Collection Time Receive d Time (Source) Location / / Volume Laterality Blood (Blood, 04/04/2022 8:11 AM 04/04/20 22 8:41 Venous) CDT AM CDT Rebeca Valle P.A.-C., M.S. LAB BLOOD ADD-ON Performing Organization Address City/[facility]/ZIP Code Phon e Number [facility] - 200 [place], [place] [address] [place] [address] [facility] 200 [facility] (ABNORMAL) CBC with Differential, Blood (04/04/2022 8:11 AM CDT) [facility] Method Time Signature Hemoglobin 12.9 11.6 - [...] Organization Address City/State/ZIP Code Phon e Number [facility] - [address] [facility] [place] [address] [facility] [address] Laboratories-[facility] [address] Iodine (04/04/2022 8:11 AM CDT) P athologist Shalonda Reyna 59 40 [phone] 92 04/05/2022 6:58 SDSC ng/mL PM CDT Comment: ----ADDITIONAL INFORMATION---- This test was developed and its performa nce characteristics determined by [facility] in a manner consistent with CLIA requirements. This test has not been cleared or approved by the [place] Vu d and Drug Administration. Specimen Anatomical Collection Method Collection Time Receive d Time (Source) Location / / Volume Laterality Blood (Blood, 04/04/2022 8:11 AM 04/04/20 Venous) CDT 10:33 AM CDT Rebeca Valle P.A.-C., M.S. LAB BLOOD NON ADD-ON Performing Organization Address City/State/ZIP Code Phon e Number [facility] [address] [place] [address] [place] [phone] [address] [facility] [place] [address] Laboratory Medicine and Pathology [address] [place] [address] [place] documented in this encounter Visit Diagnoses Diagnosis Malignant Neoplasm Of Brain (HCC) - Prim uyen documented in this encounter Administered Medications Inactive Administered Medications - up to 3 most recent administrations Medication Order MAR Action Action Date Dose Rate Site sodium chloride 0.9 % injection 3 mL Given 04/04/2022 8:14 AM CDT 3 mL 3 mL, intra-catheter, As needed, line care, Starting on Bee 04/04/22 at 0814, Prior to and following infusion and between multiple consecutive infusions. documented in this encounter
--- OUTSIDE RECORDS SUMMARY | 2022-04-10 09:37 | XMS_ITS | Encounter Summary ---
:1970 Author Organization [facility] Address [address] [place] [address] Care Team Providers Name Role Phone Unavailable Primary Care Provider Unavailable Reason for Referral Outpatient (Routine) - Authorized Specialty Diagnoses / Procedures Referred By Contact Refer red To Contact Oncology Vini Maki M.D ., Ph.D. [facility] [address] [place] [phone] Referral ID Status Reason Start Date Expiration Date Visits V isits Requested Authorized [id number] Authorized 04/04/2022 04/04/2023 1 1 MRI/CAT/PET Scan (Routine) - Pending Review Specialty Diagnoses / Procedures Referred By Contact Refer red To Contact Radiology Diagnoses Malignant Neoplasm Of Brain (HCC) Vini Maki M.D., [facility] Procedures MR Brain without and with IV Contrast Ph.D. [address] [place] [phone] Referral ID Status Reason Start Date Expiration Date Visits V isits Requested Authorized [id number] Pending 04/04/2022 04/04/2023 1 1 Review Reason for Visit Outpatient (Routine) - Closed Specialty Diagnoses / Procedures Referred By Contact Refer red To Contact Oncology Rebeca Valle P .A.-C., M.S. [place] [address] [place], [place] [phone] Referral ID Status Reason Start Date Expiration Date Visits Requ ested Visits Authorized [id number] Closed 02/20/2022 02/20/2023 1 1 Encounter Details Date Type Department Care Team Description 04/04/2022 Office Visit Department of Oncology Vini Maki M alignant Neoplasm Of in Sebastian Turner, Ph.D. Brain (HCC) (Primary [place] [address] [facility]) [address] [place] [phone] Social History Tobacco Use Types Packs/Day [...] More than 4 times per year 01/07/2022 anabaptist services? Do you belong to any clubs [...] have completed or the highest Maulik, MEd, TITLE INSURANCE SALES REPRESENTATIVE, 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 Sex Assigned at Date Recorded Female 01/07/2022 11:11 AM CDT documented as of this encounter Last Filed Vital Signs Vital Sign Reading Time Taken Comments Blood Pressure 133/88 04/04/2022 10:57 AM CDT Pulse 87 04/04/2022 10:57 AM CDT Temperature 37.1 ??C (98.8 ??F) 04/04/2022 10:57 AM CDT Respiratory Rate - - Oxygen Saturation 99% 04/04/2022 10:57 AM CDT Inhaled Oxygen Concentration - - Weight 87.1 kg (192 lb 0.3 oz) 04/04/2022 10:57 AM CDT Height 164.8 cm (5' 4.88) 04/04/2022 10:57 AM CDT Body Mass Index 32.07 04/04/2022 10:57 AM CDT documented in this encounter Progress Notes Vini Maki M.D., Ph.D. - 04/04/2022 11:00 AM CDT Images from the original note were not included. SUBJECTIVE CHIEF COMPLAINT/REASON FOR VISIT Mia Richardson is a 51 y.o. female who presents for evaluation of Glioblastoma, IDH wild type, MGMTunmethylated - Radiation therapy and concurrent temozolomide 01/31/2022 [...] sense. The patient was taken to the [facility] with altered mental status. The patient was admitted to the hospital, but continued to have word-finding difficulties. 11/30/21: MRI of the brain demonstrated mass within the left posterior temporal lobe subcortical white matter measuring up to 3.6 cm with additional foci of masslike cortical hyperintensity within the basal ganglia as well as the left hippocampus. There was trace left to right midline shift of 2.5 mm. The patient was treated with steroids and Keppra and transferred to [facility]. 11/30/2021 Imaging MRI of the brain demonstrated [...] left to right midline shift without herniation. A fewsmall foci of T2 hyperintensity in the subcortical right frontal white matter were of uncertain significance. 12/02/2021 Other Neurology consultation with Dr. Cherelle Alvarez. The patient's initial episode of alteration of consciousness and word-finding difficulty was very suspicious for seizure. She had an unusual sensation followed by symptomatic aphasia and subsequently lost time and woke up covered in vomit. The patient additionally had bruises and injuries on her body likely from the event. Based on the severity of the patient's exam, despite ongoing medication with Keppra and Decadron, would suspect that she has had somedeficits for longer than a few days. 12/03/2021 Surgery and Procedures Lumbar puncture was performed. DIAGNOSIS: Cerebrospinal fluid , flow cytometry: - No aberrant immunophenotype on the T-cells - B-cells rare to absent Final Diagnosis: Negative for malignant cells. 12/05/2021 Surgery and Procedures Left-sided craniotomy for open biopsy/resection was performed by Dr. Darinel Dunlap. Final Diagnosis: Although the immunostain for the [...] Referral to Dr. Shelbie Ackerman at the [facility]. Discussed that it was okay for the patient to proceed with chemotherapy and radiation 1 month from biopsy date. Also discussed that itwas okay for the patient to travel on a commercial air flight approximately 1 month from biopsy as she was planning for a trip to [place] with her significant other in December. 12/24/[address] Shelbie Ackerman who reviewed the patient's case with Dr. Dunlap and he recommended against additional surgery. Dr. Macias recommended proceeding with a combination of radiation therapy plus temozolomide. Referral to Radiation Oncology at [facility] in [place]. 01/10/2022 Surgery and Procedures Left temporoparietal stereotactic craniotomy with tumor resection, speech mapping with Dr. Ivey. PATHOLOGY: A-D. Brain, left temporal lesion, resection: Glioblastoma, IDH-wildtype (RIG MANAGER WHO grade 4), clinically residual. See comment. COMMENT: The patient's history of left temporal-parietal mitotically-active infiltrating glioma status post biopsy on 12/06/2019 (reviewed at [facility], [id number]), is noted. The biopsy specimen lacked microvascular proliferation and tumor necrosis. By immunohistochemistry, the tumor cells were negative for IDH1-R132H and showed retained ATRX expression. 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 01/10/2022 Imaging MRI of the brain demonstrated interval repeat left temporoparietal craniotomy and resection of lefttemporoparietal region mass. Expected postoperative left convexity extra-axial collection and pneumocephalus, similar vasogenic edema and mass effect resulting in 12 mm rightward midline shift, stable.Enhancement surrounding the resection cavity should be postoperative without evidence for gross residual enhancing tumor. 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 Testing in 2021 from [facility]. As of 2021, there is no confirmed relationship between pathogenic CHEK2 mutations and glioblastoma. INTERVAL HISTORY: Mia Richardson presents today for [...] Glioblasto ma, IDH wild type, MGMT unmethylated. Radiation therapy was started on 01/31/2022 and completed on 03-14-22. Chemotherapy was delayed by 2 days and thus was started on 02/02/2022. Overall this has been well tolerated. Most notable laboratory testing did indicate a decreased neutrophil count at 0.82. Thus temozolomide was held for 4 days until neutrophil count was recovered. Additionally temozolomide was decreased from 160 mg to 140 mg daily. She does note symptoms of fatigue and lowered energy. She also notes some nausea - no episodes of vomiting. She reported loss of appetite and weight. REVIEW OF SYSTEMS Constitutional: Positive for fatigue. Eyes: Positive for visual problems. The following systems were negative: Skin, ENT, Respiratory, Cardiovascular, Gastrointestinal, Genitourinary, Hematologic, Musculoskeletal The following portions of the patient's history were reviewed and updated as appropriate: allergies,current medications, family history, medical history, social history, surgical history and problem list OBJECTIVE BP 133/88 (BP Location: Right arm, Patient Position: Sitting, Cuff Size: Regular) Pulse 87 Temp 37.1 ??C (Tympanic) Ht 164.8 cm Wt 87.1 kg SpO2 99% BMI 32.07 kg/m?? PHYSICAL EXAMINATION Physical Exam LABORATORY DATA: Lab on 04/04/2022 Component Date Value Hemoglobin 04/04/2022 12.9 Hematocrit 04/04/2022 40.8 Erythrocytes 04/04/2022 4.66 MCV 04/04/2022 87.6 RBC Distrib Width 04/04/2022 12.8 Platelet Count 04/04/2022 254 Leukocytes 04/04/2022 3.7 Neutrophils 04/04/2022 2.64 Lymphocytes 04/04/2022 0.65 (A) Monocytes 04/04/2022 0.32 Eosinophils 04/04/2022 0.09 Basophils 04/04/2022 0.03 TSH, Sensitive 04/04/2022 0.08 (A) T4 (Thyroxine), Free, S 04/04/2022 1.0 T3 (Triiodothyronine), T* 04/04/2022 131 RADIOLOGICAL DATA: MRI reviewed, due to this is just 3 weeks post RT, 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 REPORTS: I personally reviewed current labs and [...] Glioblasto ma, IDH wild type, MGMT unmethylated. Completed RT/TMZ on 03/14/22. She had low ANC and TMZ dose reduced. 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 Plan: - continue with adjuvant TMZ chemotherapy, cycle 1 plan to start on 04/15. Due to prior poor tolerance of TMZ (low ANC, loss of appetitie and fatigue), we will adjust treatment to 75mg/m2 (total 140mg) 7 days on 7 days off. TMZ ordered to [facility]. If she can tolerate this, we may consider switching back to the regular 01/19 schedule with TMZ at 150mg/m2. -continue weekly labs -ALC 0.65. she reported stomach discomfort with bactrim. I am ok to hold off bactrim now till next blood test. If ALC is above 0.5, ok to not take bactrim. -given the MRI changes, we will plan a short follow up scan in one month. In addition, we need to see how she is tolerating TMZ. Thus, we will bring her back with labs, MRI and visit in one month. follow-up orders in place Seizures: Keppra 1000mg twice daily Dexamethasone: Not currently taking PATIENT EDUCATION: Ready to learn, no apparent learning barriers were identified; learning preferences include listening. Explained diagnosis and treatment plan; patient expressed understanding of the content. Discussed with the patient we work together as a care team of physicians, nurse practitioners/physician assistants, nurses and other respiratory support technician that specialize in this cancer. Also, reviewed the importance of maintaining ongoing care with local oncology team and primary care physician. documented in this encounter Plan of Treatment Upcoming Encounters Date Type Specialty Care Team Description 05/03/2022 Telemedicine Clinical Genomics Sanya Mehta M.D. [address] [place] [phone] 05/06/2022 Clinical Communication Admitting/Central Scheduling 05/09/2022 Office Visit Oncology Farzana Allen M.D. [address] [place] [phone] 05/17/2022 Clinical Communication Admitting/Central Scheduling 05/21/2022 Lab Laboratory Medicine Vini Maki M.D., Ph.D. [address] [place] [phone] 05/21/2022 Appointment Radiology Vini Maki M.D., Ph.D. [address] [place] [phone] 05/21/2022 Office Visit Oncology Vini Maki M.D., Ph.D. [address] [place] [phone] 06/11/2022 Ancillary Procedure Ophthalmology Chas Shin M.D. [address] [place] [phone] 06/11/2022 Ancillary Procedure Ophthalmology Chas Shin M.D. [address] [place] [phone] 06/11/2022 Office Visit Ophthalmology Chas Shin M.D. [address] [place] [phone] Scheduled Orders Name Type Priority Associated Order Schedule Diagnoses Comprehensive Lab Routine Malignant Neoplasm Expected : Metabolic Panel Of Brain (HCC) 05/07/2022 (Approximate), Expires: 07/05/2023 CBC, Chemotherapy, No Lab Routine Malignant Neoplasm Expected: Alerts Of Brain (HCC) 05/07/2022 (Approximate), Expires: 04/04/2023 MR Brain without and Imaging RAD - Routine (most Malignant Sarthak plasm Expected: with IV Contrast inpatients and all Of Brain (HCC) outpatients) (Approximate), Expires: 04/04/2023 Scheduled Referrals Name Type Priority Associated Diagnoses Order S [facility] Oncology office Outpatient Referral Routine Expec anayeli: visit (clinic) 05/07/2022 Treatment/Toxicity (Approxim ate), (MD/CRAIG); Brain Expires: 07/05/2023 documented as of this encounter Visit Diagnoses Diagnosis Malignant Neoplasm Of Brain (HCC) - Prim uyen documented in this encounter
--- OUTSIDE RECORDS SUMMARY | 2022-04-10 09:37 | XMS_ITS | Encounter Summary ---
:1970 Author Organization [facility] Address [address] [place] [address] Care Team Providers Name Role Phone Unavailable Primary Care Provider Unavailable Reason for Visit Reason Comments Med Refill TMZ and Ondansetron Encounter Details Date Type Department Care Team Description 04/05/2022 Clinical Communication Department of Latanya Michael Med Refill (TMZ and Oncology in D, R.N., O.C.N. Ondansetron) [place], [facility] [address] [place], [place] [address] [facility] [phone] [place] [address] Social History Tobacco Use Types Packs/Day Years [...] More than 4 times per year 01/07/2022 episcopal services? Do you belong to any clubs [...] have completed or the highest Maulik, MEd, LEVERMAN, 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 Sex Assigned at Date Recorded Female 01/07/2022 11:11 AM CDT documented as of this encounter Miscellaneous Notes Telephone Encounter - Stacy Flanagan, RSanjuanitaN. - 04/08/2022 2:41 PM CDT Spoke with pharmacist at [facility] regarding current chemotherapy dose and BSA. Per Dr Maki's last note: Due to prior poor tolerance of TMZ (low ANC, loss of appetitie and fatigue), we will adjust treatment to 75mg/m2 (total 140mg) 7 days on 7 days off. TMZ ordered to [facility]. If she can tolerate this, we may consider switching back to the regular 01/19 schedule with TMZ at 150mg/m2. Telephone Encounter - Trupti Pearson - 04/08/2022 10:04 AM CDT Is there a nurse that is able to call about talk with pharmacy about verifying the dose and BSA? Anhcan be reached at [phone]. Thank you Telephone Encounter - Trupti Pearson - 04/05/2022 2:29 PM CDT TMZ and Ondansetron Redirect from [facility] to [facility] [phone] documented in this encounter Plan of Treatment Upcoming Encounters Date Type Specialty Care Team Description 05/03/2022 Telemedicine Clinical Genomics Sanya Mehta M.D. [address] [place] [phone] 05/06/2022 Clinical Communication Admitting/Central Scheduling 05/09/2022 Office Visit Oncology Farzana Allen M.D. [address] [place] [phone] 05/17/2022 Clinical Communication Admitting/Central Scheduling 05/21/2022 Lab Laboratory Medicine Vini Maki M.D., Ph.D. [address] [place] [phone] 05/21/2022 Appointment Radiology Vini Maki M.D., Ph.D. [address] [place] [phone] 05/21/2022 Office Visit Oncology Vini Maki M.D., Ph.D. [address] [place] [phone] 06/11/2022 Ancillary Procedure Ophthalmology Chas Shin M.D. [address] [place] [phone] 06/11/2022 Ancillary Procedure Ophthalmology Chas Shin M.D. [address] [place] [phone] 06/11/2022 Office Visit Ophthalmology Chas Shin M.D. 200 [place] [phone] documented as of this encounter Visit Diagnoses Diagnosis Malignant Neoplasm Of Brain (HCC) documented in this encounter
--- OUTSIDE RECORDS SUMMARY | 2022-04-10 09:37 | XMS_ITS | Encounter Summary ---
:1970 Author Organization [facility] Address 200 [place] [address] Care Team Providers Name Role Phone Unavailable Primary Care Provider Unavailable Encounter Details Date Type Department Care Team Description 04/02/2022 Clinical Communication Department of Oncology Desirae Suggs in [facility]) [place] [phone] 200 [facility] (Work) [place] [address] Social History Tobacco Use Types Packs/Day Years [...] More than 4 times per year 01/07/2022 cheondoism services? Do you belong to any clubs [...] have completed or the highest Maulik, MEd, FEED MILL TENDER, 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 Sex Assigned at Date Recorded Female 01/07/2022 11:11 AM CDT documented as of this encounter Miscellaneous Notes Telephone Encounter - Emory Suggs CPT([facility]) - 04/02/2022 11:46 AM CDT Called patient to preschedule a call with an RN Symptom [employer] Counselor to discuss troubles with severesymptoms as rated on the BSFS. Patient declines assistance from the RN SCM at this time. Call outcome: Scheduling Call - patient declined help Decline reason: Wants to discuss with care team at upcoming appointment [facility] Care Conference documented in this encounter Plan of Treatment Upcoming Encounters Date Type Specialty Care Team Description 05/03/2022 Telemedicine Clinical Genomics Sanya Mehta M.D. [address] [place] [phone] 05/06/2022 Clinical Communication Admitting/Central Scheduling 05/09/2022 Office Visit Oncology Farzana Allen M.D. [address] [place] [phone] 05/17/2022 Clinical Communication Admitting/Central Scheduling 05/21/2022 Lab Laboratory Medicine Vini Maki M.D., Ph.D. [address] [place] [phone] 05/21/2022 Appointment Radiology Vini Maki M.D., Ph.D. [address] [place] [phone] 05/21/2022 Office Visit Oncology Vini Maki M.D., Ph.D. [address] [place] [phone] 06/11/2022 Ancillary Procedure Ophthalmology Chas Shin M.D. [address] [place] [phone] 06/11/2022 Ancillary Procedure Ophthalmology Chas Shin M.D. [address] [place] [phone] 06/11/2022 Office Visit Ophthalmology Chas Shin M.D. [address] [place] [phone] documented as of this encounter Visit Diagnoses Not on filedocumented in this encounter
--- OUTSIDE RECORDS SUMMARY | 2022-04-10 09:37 | XMS_ITS | Encounter Summary ---
:1970 Author Organization [facility] Address [address] [place] [address] Care Team Providers Name Role Phone Unavailable Primary Care Provider Unavailable Reason for Visit Reason Comments HCC Intake Encounter Details Date Type Department Care Team Description 04/04/2022 Clinical Communication Department of Medical Keyur Kevan ruiz HCC Intake Genetics in [place] [address] [address] [place], [place] 200 [facility] [[email or web address] [phone] [place], [place] [phone] (Work) [phone] Social History Tobacco Use Types Packs/Day Years [...] More than 4 times per year 01/07/2022 sikhism services? Do you belong to any clubs [...] have completed or the highest Maulik, MEd, COMPUTER SYSTEMS AUDITOR, 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 Sex Assigned at Date Recorded Female 01/07/2022 11:11 AM CDT documented as of this encounter Miscellaneous Notes Telephone Encounter - Kevan Borges - 04/04/2022 12:44 PM CDT Date scheduled to be seen: 05/03/2022 Provider: Dr. Sanya Mehta Referral Note: Recently confirmed CHEK2 mutation, currently undergoing treatment for glioblastoma, has questions about how screening/managment should proceed Do we have test results? 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 [address] [place] [phone] 05/06/2022 Clinical Communication Admitting/Central Scheduling 05/09/2022 Office Visit Oncology Farzana Allen M.D. [address] [place] [phone] 05/17/2022 Clinical Communication Admitting/Central Scheduling 05/21/2022 Lab Laboratory Medicine Vini Maki M.D., Ph.D. [address] [place] [phone] 05/21/2022 Appointment Radiology Vini Maki M.D., Ph.D. [address] [place] [phone] 05/21/2022 Office Visit Oncology Vini Maki M.D., Ph.D. [address] [place] [phone] 06/11/2022 Ancillary Procedure Ophthalmology Chas Shin M.D. [address] [place] [phone] 06/11/2022 Ancillary Procedure Ophthalmology Chas Shin M.D. [address] [place] [phone] 06/11/2022 Office Visit Ophthalmology Chas Shin M.D. [address] [place] [phone] documented as of this encounter Visit Diagnoses Not on filedocumented in this encounter
--- OUTSIDE RECORDS SUMMARY | 2022-04-10 09:38 | XMS_ITS | Encounter Summary ---
:1970 Author Organization [facility] Address [address] [place] [address] Care Team Providers Name Role Phone Unavailable Primary Care Provider Unavailable Reason for Visit Radiation Therapy (Routine) - Closed Specialty Diagnoses / Procedures Referred By Contact Refer red To Contact Diagnoses Malignant Neoplasm Of Brain (HCC) Stephanie Gleason M.D. [facility] Radiation Oncology Procedures Prior Auth Rad Tx [place] IM[facility] [address] [place] [phone] [address] [facility] [place] [place] [address] Referral ID Status Reason Start Date Expiration Date Visits Requ ested Visits Authorized [id number] Closed 01/31/2022 12/31/2022 30 30 Encounter Details Date Type Department Care Team Description 03/13/2022 Hospital Encounter Department of Radiation Jacquelyn Gleason I., [place] [address] [facility] [address] [place] [phone] Social History Tobacco Use Types Packs/Day Years [...] have completed or the highest Maulik, MEd, OFFSET PRINTER, 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 Sex Assigned at Date Recorded Female 01/07/2022 11:11 AM CDT documented as of this encounter Plan of Treatment Upcoming Encounters Date Type Specialty Care Team Description 05/03/2022 Telemedicine Clinical Genomics Sanya Mehta M.D. 200 [place] [phone] 05/06/2022 Clinical Communication Admitting/Central Scheduling 05/09/2022 Office Visit Oncology aFrzana Allen M.D. 200 [place] [phone] 05/17/2022 Clinical Communication Admitting/Central Scheduling 05/21/2022 Lab Laboratory Medicine Vini Maki M.D., Ph.D. [address] [place] [phone] 05/21/2022 Appointment Radiology Vini Maki M.D., Ph.D. [address] [place] [phone] 05/21/2022 Office Visit Oncology Vini Maki M.D., Ph.D. [address] [place] [phone] 06/11/2022 Ancillary Procedure Ophthalmology Chas Shin M.D. [address] [place] [phone] 06/11/2022 Ancillary Procedure Ophthalmology Chas Shin M.D. [address] [place] [phone] 06/11/2022 Office Visit Ophthalmology Chas Shin M.D. [address] [place] [phone] documented as of this encounter Visit Diagnoses Not on filedocumented in this encounter
--- OUTSIDE RECORDS SUMMARY | 2022-04-10 09:38 | XMS_ITS | Encounter Summary ---
:1970 Author Organization [facility] Address [address] [place] [address] Care Team Providers Name Role Phone Unavailable Primary Care Provider Unavailable Reason for Referral Radiation Therapy (Routine) - Authorized Specialty Diagnoses / Procedures Referred By Contact Refer red To Contact Diagnoses Malignant Neoplasm Of Brain (HCC) Stephanie Gleason M.D. [facility] Radiation Oncology Procedures Management Visit [address] [facility] [place], [place] [phone] [place] [address] Referral ID Status Reason Start Date Expiration Date Visits V isits Requested Authorized [id number] Authorized 12/31/2021 12/31/2022 10 10 Reason for Visit Radiation Therapy (Routine) - Authorized Specialty Diagnoses / Procedures Referred By Contact Refer red To Contact Diagnoses Malignant Neoplasm Of Brain (HCC) Stephanie Gleason M.D. [facility] Radiation Oncology Procedures Management Visit [address] [place] [address] [phone] [place] [address] Referral ID Status Reason Start Date Expiration Date Visits V isits Requested Authorized [id number] Authorized 12/31/2021 12/31/2022 10 10 Encounter Details Date Type Department Care Team Description 03/05/2022 Hospital Encounter Department of Stephanie Gleason Neoplasm Radiation Oncology Sebastian Marcelino Of Brain (HCC) in [place], [facility] [address] [place], [place] [address] [facility] [address] [place], [place] [phone] (Work) [phone] Social History Tobacco Use Types Packs/Day Years [...] have completed or the highest Maulik, MEd, CASTING AND PASTING SUPERVISOR, 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 Sex Assigned at Date Recorded Female 01/07/2022 11:11 AM CDT documented as of this encounter Last Filed Vital Signs Vital Sign Reading Time Taken Comments Blood Pressure 129/76 03/05/2022 1:28 PM CDT Pulse 69 03/05/2022 1:28 PM CDT Temperature 36.6 ??C (97.8 ??F) 03/05/2022 1:28 PM CDT Respiratory Rate - - Oxygen Saturation - - Inhaled Oxygen Concentration - - Weight 91 kg (200 lb 9.9 oz) 03/05/2022 1:28 PM CDT Height - - Body Mass Index 31.86 01/24/2022 9:36 AM CDT documented in this [...] 6 (six) hours as needed for pain. sulfamethoxazole-trimeth Take 1 tablet by 90 tablet [...] Brain (HCC) or vomiting (unrelieved by ondansetron). ondansetron (ZOFRAN) 8 Take 1 tablet (8 mg 42 tablet 0 /0 02/202203/12/2022 mg tabletIndications: total) by mouth Malignant Neoplasm Of daily. Take 30 to 60 Brain (HCC) minutes before Temozolomide on Days 1 to 42. levETIRAcetam (KEPPRA) Take 1 tablet (1,000 28 tablet 0 09/202104/03/2022 1,000 mg tablet mg total) by mouth 2 (two) times a day. documented as of this encounter Progress Notes Stephanie Gleason M.D. - 03/05/2022 1:15 PM CDT ATTESTATION FOR MANAGEMENT VISIT I saw and evaluated the patient and participated in the hill portions of the service as noted below. I reviewed the documentation of Ms. Eileen Hopkins RN and agree with the findings and plan. The patient appears well on exam. We will continue with radiation as planned and monitor weekly. Stephanie Gleason M.D., 03/05/2022 SUBJECTIVE REASON FOR VISIT Evaluation for side [...] (cGy) First Treatment Last Treatment Elapsed Days [id number] 01/31/2022 03/05/2022 33 Course Summary 01/31/2022 03/05/2022 33 The patient was seen and examined today with Dr. Gleason. The patient reports that she is doing well overall. Vision is a little worse compared to last week. She denies fevers, chills or vomiting. She is has started to take anti-emetics twice a day to manage nausea. She does still experience occasional hot flash. Headaches have improved overall. She is now taking Tylenol only 1-2 times a week. She has noticed some hair loss to the treatment field area. She notices slight sunburn feeling to the treatment field area. PATIENT REPORTED SYMPTOM SCREEN FATIGUE (Scale: 0 = no fatigue; 10 = worst fatigue you can imagine): 6 PAIN (Scale: 0 = no pain; 10 = worst pain you can imagine): 1 OVERALL QUALITY OF LIFE (Scale: 0 = as bad as can be; 10 = as good as can be): 6 OBJECTIVE BP 129/76 (BP Location: Right arm, Patient Position: Sitting, Cuff Size: Small) Pulse 69 Temp 36.6 ??C (Temporal) Wt 91 kg BMI 31.86 kg/m?? PHYSICAL EXAM General: Alert and oriented [...] patient is tolerating radiation treatment well overall. She can apply aloe vera gel to help reduce sunburn sensation. She is to apply moisturizing lotion to the treatment field area. She continues to takes 140 mg of Temodar instead of 160 mg. She is scheduled for brain MR, Medical Oncology and Neurosurgery follow up on April 04, 2022 on on [facility]. She continues to work with PT, OT and Speech through [facility]. We will continue to see patient in weekly management visits throughout her course of radiation therapy. She will contact us with any questions or concerns. We will continue with radiation treatment as planned. Signed by: Eileen Hopkins R.N. 03/05/2022 1:59 PM CDT documented in this encounter Plan of Treatment Upcoming Encounters Date Type Specialty Care Team Description 05/03/2022 Telemedicine Clinical Genomics Sanya Mehta M.D. [address] [place] [phone] 05/06/2022 Clinical Communication Admitting/Central Scheduling 05/09/2022 Office Visit Oncology Farzana Allen M.D. [address] [place] [phone] 05/17/2022 Clinical Communication Admitting/Central Scheduling 05/21/2022 Lab Laboratory Medicine Vini Maki M.D., Ph.D. [address] [place] [phone] 05/21/2022 Appointment Radiology Vini Maki M.D., Ph.D. [address] [place] [phone] 05/21/2022 Office Visit Oncology Vini Maki M.D., Ph.D. [address] [place] [phone] 06/11/2022 Ancillary Procedure Ophthalmology Chas Shin M.D. [address] [place] [phone] 06/11/2022 Ancillary Procedure Ophthalmology Chas Shin M.D. [address] [place] [phone] 06/11/2022 Office Visit Ophthalmology Chas Shin M.D. [address] [place] [address] Scheduled Orders Name Type Priority Associated Diagnoses Order S chedule Management Visit Radiation Oncology Routine Malignant Neoplasm Once for 1 Of Brain (HCC) Occurrences s tarting 03/05/2022 unti l 03/05/2022 documented as of this encounter Visit Diagnoses Diagnosis Malignant Neoplasm Of Brain (HCC) documented in this encounter
--- OUTSIDE RECORDS SUMMARY | 2022-04-10 09:38 | XMS_ITS | Encounter Summary ---
:1970 Author Organization [facility] Address [address] [place] [address] Care Team Providers Name Role Phone Unavailable Primary Care Provider Unavailable Reason for Visit Radiation Therapy (Routine) - Closed Specialty Diagnoses / Procedures Referred By Contact Refer red To Contact Diagnoses Malignant Neoplasm Of Brain (HCC) Stephanie Gleason M.D. [facility] Radiation Oncology Procedures Prior Auth Rad Tx [facility] [address] [place] [phone] [address] [place] [address] Referral ID Status Reason Start Date Expiration Date Visits Requ ested Visits Authorized [id number] Closed 01/31/2022 12/31/2022 30 30 Encounter Details Date Type Department Care Team Description 03/07/2022 Hospital Encounter Department of Radiation Jacquelyn Gleason I., [place]cology [place] [address] [facility] [address] [place] [phone] Social History Tobacco Use Types Packs/Day Years [...] completed or the highest Maulik, MEd, MERCHANDISE PRESENTATION ASSOCIATE, 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 Sex Assigned [...] 6 (six) hours as needed for pain. ondansetron (ZOFRAN) 8 Take 1 tablet (8 mg 30 tablet 3 07/03/202203/01/2023 mg tabletIndications: total) by mouth Malignant Neoplasm [...] Take 1 capsule (140 14 capsule 0 /02/202204/11/2022 140 mg mg total) by mouth capsuleIndications: [...] a day. documented as of this encounter Plan of Treatment Upcoming Encounters Date Type Specialty Care Team Description 05/03/2022 Telemedicine Clinical Genomics Sanya Mehta M.D. 200 [place] [address] 05/06/2022 Clinical Communication Admitting/Central Scheduling 05/09/2022 Office Visit Oncology Farzana Allen M.D. 200 [place] [address] 05/17/2022 Clinical Communication Admitting/Central Scheduling 05/21/2022 Lab Laboratory Medicine Vini Maki M.D., Ph.D. [address] [place] [phone] 05/21/2022 Appointment Radiology Vini Maki M.D., Ph.D. [address] [place] [phone] 05/21/2022 Office Visit Oncology Vini Maki M.D., Ph.D. [address] [place] [phone] 06/11/2022 Ancillary Procedure Ophthalmology Chas Shin M.D. [address] [place] [phone] 06/11/2022 Ancillary Procedure Ophthalmology Chas Shin M.D. [address] [place] [phone] 06/11/2022 Office Visit Ophthalmology Chas Shin M.D. [address] [place] [phone] documented as of this encounter Visit Diagnoses Not on filedocumented in this encounter
--- OUTSIDE RECORDS SUMMARY | 2022-04-10 09:38 | XMS_ITS | Encounter Summary ---
:1970 Author Organization [facility] Address [address] [place] [address] Care Team Providers Name Role Phone Unavailable Primary Care Provider Unavailable Reason for Referral Outpatient (Routine) - Authorized Specialty Diagnoses / Procedures Referred By Contact Refer red To Contact Clinical Genomics Diagnoses Genetic Susceptibility To Other Malignant Neoplasm Sanya Mehta [place] M.D. [address] [place] [phone] Referral ID Status Reason Start Date Expiration Date Visits V isits Requested Authorized [id number] Authorized 03/08/2022 03/08/2023 1 1 Encounter Details Date Type Department Care Team Description 03/08/2022 Orders Only Department of Medical Kalnickyeuangela, Geneti c Susceptibility Genetics in [place] Liz M.S., To Other [place], [place] [facility] Neoplasm (Primary Dx) [address] [place] [address] [address] [place] [phone] Social History Tobacco Use Types Packs/Day Years [...] have completed or the highest Maulik, MEd, MARKET DEVELOPMENT ANALYST, 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 Sex Assigned at Date Recorded Female 01/07/2022 11:11 AM CDT documented as of this encounter Plan of Treatment Upcoming Encounters Date Type Specialty Care Team Description 05/03/2022 Telemedicine Clinical Genomics Sanya Mehta M.D. [address] [place] [address] 05/06/2022 Clinical Communication Admitting/Central Scheduling 05/09/2022 Office Visit Oncology Farzana Allen M.D. [address] [place] [address] 05/17/2022 Clinical Communication Admitting/Central Scheduling 05/21/2022 Lab Laboratory Medicine Vini Maki M.D., Ph.D. [address] [place] [phone] 05/21/2022 Appointment Radiology Vini Maki M.D., Ph.D. [address] [place] [phone] 05/21/2022 Office Visit Oncology Vini Maki M.D., Ph.D. [address] [place] [phone] 06/11/2022 Ancillary Procedure Ophthalmology Chas Shin M.D. [address] [place] [phone] 06/11/2022 Ancillary Procedure Ophthalmology Chas Shin M.D. [address] [place] [phone] 06/11/2022 Office Visit Ophthalmology Chas Shin M.D. [address] [place] [phone] Scheduled Referrals Name Type Priority Associated Diagnoses Order S david Clinical Genomics - Outpatient Referral Routine Genetic Suscep tibility Expected: Hereditary cancer To Other Malignant 02/22 consult (clinic) Neoplasm (Approximat e), Expires: 06/08/2023 documented as of this encounter Visit Diagnoses Diagnosis Genetic Susceptibility To Other Malignan t Neoplasm - Primary documented in this encounter
--- OUTSIDE RECORDS SUMMARY | 2022-04-10 09:38 | XMS_ITS | Encounter Summary ---
:1970 Author Organization [facility] Address [address] [place] [address] Care Team Providers Name Role Phone Unavailable Primary Care Provider Unavailable Reason for Visit Reason Comments Attempt to Reach Patient Encounter Details Date Type Department Care Team Description 03/06/2022 Documentation Department of Medical Sejal Resendiz Attempt to Reach Genetics in S, M.S., [facility] Patient [place], [place] [address] [facility] [address] [place] [phone] Social History Tobacco Use Types Packs/Day Years [...] More than 4 times per year 01/07/2022 worship services? Do you belong to any clubs [...] have completed or the highest Maulik, MEd, LAMP WIRER, 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 Sex Assigned at Date Recorded Female 01/07/2022 11:11 AM CDT documented as of this encounter Progress Notes Sejal Resendiz M.S., [facility] - 03/06/2022 3:05 PM CDT I attempted to reach Ms. Cedillo by phone again today to discuss her genetic testing results but reached her voicemail. A generic message was left requesting she call me back at her earliest convenience at [phone]. I will attempt to reach her one more times in the coming days. As always, she is welcome to contact me with any questions in the future. Electronically signed by Sejal Resendiz M.S., [facility] at 03/06/2022 3:06 PM CDT documented in this encounter Plan of Treatment Upcoming Encounters Date Type Specialty Care Team Description 05/03/2022 Telemedicine Clinical Genomics Sanya Mehta M.D. [address] [place] [phone] 05/06/2022 Clinical Communication Admitting/Central Scheduling 05/09/2022 Office Visit Oncology Farzana Allen M.D. [address] [place] [phone] 05/17/2022 Clinical Communication Admitting/Central Scheduling 05/21/2022 Lab Laboratory Medicine Vini Maki M.D., Ph.D. [address] [place] [phone] 05/21/2022 Appointment Radiology Vini Maki M.D., Ph.D. [address] [place] [address] [phone] 05/21/2022 Office Visit Oncology Vini Maki M.D., Ph.D. [address] [place] [phone] 06/11/2022 Ancillary Procedure Ophthalmology Chas Shin M.D. [address] [place] [phone] 06/11/2022 Ancillary Procedure Ophthalmology Chas Shin M.D. [address] [place] [phone] 06/11/2022 Office Visit Ophthalmology Chas Shin M.D. [address] [place] [phone] documented as of this encounter Visit Diagnoses Not on filedocumented in this encounter
--- OUTSIDE RECORDS SUMMARY | 2022-04-10 09:38 | XMS_ITS | Encounter Summary ---
:1970 Author Organization [facility] Address [address] [place] [address] Care Team Providers Name Role Phone Unavailable Primary Care Provider Unavailable Encounter Details Date Type Department Care Team Description 03/12/2022 Specialty Pharmacy [facility] [place], [address] Shalonda Arana Pharm.D., [place] [address] [phone] [place] [address] [place] [phone] Social History Tobacco Use Types Packs/Day Years [...] have completed or the highest Maulik, MEd, DOOR TO DOOR LEAD GENERATION, 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 Sex Assigned at Date Recorded Female 01/07/2022 11:11 AM CDT documented as of this encounter Miscellaneous Notes Telephone Encounter - [place], Pharm.D., R.Ph. - 03/27/2022 9:33 AM CDT SUBJECTIVE REASON FOR VISIT Specialty pharmacy reassessment of patient's medication knowledge, adherence, and side effects via patient reported questionnaire. Reassessment questions were asked via phone by a patient career technical education teacher. (scheduled chart review via telephone questionnaires-patient not needing refill yet.) HISTORY OF PRESENT ILLNESS Ms. Mia Richardson is a 51 y.o. female, who is followed by the specialty pharmacy service for temozolomide . (Indication: hematology/oncology) Patient reported reassessment questions and responses: Informant: patient How comfortable are you understanding the medication(s) you receive from [facility]?: Very Comfortable Side Effects Requiring Attention: yes, but managing these with my provider Patient Reported X Missed Doses in the Last Month: 0 Please rate your confidence in your ability to keep taking your medication(s) as prescribed.: excellent confidence How would you rate the effectiveness of your specialty medication(s)?: not certain In general, would you say your quality of life is: very good Pain rating 0-10: 2/10 Any new/changes in allergies or medications to report?: no new/changes in allergies or medications OBJECTIVE Lab Results Component Value Date CREATININE 0.7 01/28/2022 ASSESSMENT / PLAN 1. Medication Knowledge and Adherence In reference to the patient reported information above and reviewing refill history in the [facility] record. The patient/caregiver reports appropriate medication knowledge. No adherence issues identified. 2. Medication Side effects/Adverse Events In reference to the patient reported information above: The patient/caregiver reports side effects, but is managing with provider. No reported adverse drug reactions, allergic reactions, overdoses or medication errors. 3. Effectiveness Patient reports medication effectiveness to be: 'not certain'. Effectiveness difficult to determine at this early stage, focusing on adherence and side effects at this time. See 03/07/22 Epic note for provider's assessment/plan. 4. Quality of Life Patient currently rating quality of life as 'Very Good'. 5. Pain Patient currently rating pain as 2/10. 6. Summary and continued Goals of therapy These questions were asked after her most recent cycle and not at refill. The patient will be seen 04/04/22 by provider to discuss proceeding with future cycles. Continue to: -Promote medication adherence. -Evaluate other newly prescribed therapies as needed for drug-drug and drug- disease appropriateness.Specialty medications reconciled and good triston attempt made in maintaining a complete medication list (via dispensing program) at each dispense of medication. -Mitigate, treat or prevent side effects. This patient meets the definition of *HIGH RISK- required BSA dose review and required counseling for any temozolomide dose changes*, by [facility] definition and has been flagged as such in the dispensing system. Follow-up: 1 month [place] Pharm.D., R.Ph. documented in this encounter Plan of Treatment Upcoming Encounters Date Type Specialty Care Team Description 05/03/2022 Telemedicine Clinical Genomics Sanya Mehta M.D. [address] [place] [phone] 05/06/2022 Clinical Communication Admitting/Central Scheduling 05/09/2022 Office Visit Oncology Farzana Allen M.D. [address] [place] [phone] 05/17/2022 Clinical Communication Admitting/Central Scheduling 05/21/2022 Lab Laboratory Medicine Vini Maki M.D., Ph.D. [address] [place] [phone] 05/21/2022 Appointment Radiology Vini Maki M.D., Ph.D. [address] [place] [phone] 05/21/2022 Office Visit Oncology Vini Maki M.D., Ph.D. [address] [place] [address] [phone] 06/11/2022 Ancillary Procedure Ophthalmology Chas Shin M.D. [address] [place] [phone] 06/11/2022 Ancillary Procedure Ophthalmology Chas Shin M.D. [address] [place] [phone] 06/11/2022 Office Visit Ophthalmology Chas Shin M.D. [address] [place] [phone] documented as of this encounter Visit Diagnoses Not on filedocumented in this encounter
--- OUTSIDE RECORDS SUMMARY | 2022-04-10 09:38 | XMS_ITS | Encounter Summary ---
:1970 Author Organization [facility] Address [address] [place] [address] Care Team Providers Name Role Phone Unavailable Primary Care Provider Unavailable Encounter Details Date Type Department Care Team Description 03/25/2022 Ancillary Department of [place], Malignant Neop lasm Procedure Ophthalmology in Chas Ferro M.D. Of Brain ([facility]) [place], [place] [address] [facility] [address] [place] [phone] Social History Tobacco Use Types Packs/Day Years [...] or relatives? How often do you attend mormon or More than 4 times per year 01/07/2022 [employer] services? Do you belong to any clubs or No 01/07/2022 organizations such as mormon groups, unions, fraternal or athletic groups, or [...] completed or the highest Maulik, MEd, DIRECTOR OF PRECLINICAL RESEARCH, 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 Sex Assigned at Date Recorded Female 01/07/2022 11:11 AM CDT documented as of this encounter Plan of Treatment Upcoming Encounters Date Type Specialty Care Team Description 05/03/2022 Telemedicine Clinical Genomics Sanya Mehta M.D. [address] [place] [phone] 05/06/2022 Clinical Communication Admitting/Central Scheduling 05/09/2022 Office Visit Oncology Farzana Allen M.D. [address] [place] [phone] 05/17/2022 Clinical Communication Admitting/Central Scheduling 05/21/2022 Lab Laboratory Medicine Vini Maki M.D., Ph.D. [address] [place] [address] [phone] 05/21/2022 Appointment Radiology Vini Maki M.D., Ph.D. [address] [place] [phone] 05/21/2022 Office Visit Oncology Vini Maki M.D., Ph.D. [address] [place] [phone] 06/11/2022 Ancillary Procedure Ophthalmology Chas Shin M.D. [address] [place] [phone] 06/11/2022 Ancillary Procedure Ophthalmology Chas Shin M.D. [address] [place] [phone] 06/11/2022 Office Visit Ophthalmology Chas Shin M.D. [address] [place] [phone] documented as of this encounter Procedures Procedure Name Priority Date/Time Associated Comments Diagnosis OPTICAL COHERENCE Routine 03/25/2022 11:34 AM Malignant Neopla sm Results for this TOMOGRAPHY (OCT) - CDT Of Brain (HCC) procedu re are in OPTIC NERVE - OU - the resul ts BOTH EYES section. documented in this encounter Results Optical Coherence Tomography - Optic Nerve - [...] Shin M.D. OPHTH TOMOGRAPHY Performing Organization Address City/State/ZIP Code Phon e Number OPHTHALMOLOGY IMAGING EXAM documented in this encounter Visit Diagnoses Diagnosis Malignant Neoplasm Of Brain (HCC) documented in this encounter
--- OUTSIDE RECORDS SUMMARY | 2022-04-10 09:38 | XMS_ITS | Encounter Summary ---
:1970 Author Organization [facility] Address [address] [place] [address] Care Team Providers Name Role Phone Unavailable Primary Care Provider Unavailable Reason for Visit Radiation Therapy (Routine) - Closed Specialty Diagnoses / Procedures Referred By Contact Refer red To Contact Diagnoses Malignant Neoplasm Of Brain (HCC) Stephanie Gleason M.D. [facility] Radiation Oncology Procedures Prior Auth Rad Tx [place] IMRT COMPLEX [address] [place] [address] [address] [place] [address] Referral ID Status Reason Start Date Expiration Date Visits Requ ested Visits Authorized [id number] Closed 01/31/2022 12/31/2022 30 30 Encounter Details Date Type Department Care Team Description 03/12/2022 Hospital Encounter Department of Radiation Jacquelyn Gleason I., Oncology in [place] [address] [place] [phone] Social History Tobacco Use Types Packs/Day Years [...] have completed or the highest Maulik, MEd, CAN DRYER, 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 Sex Assigned at Date Recorded Female 01/07/2022 11:11 AM CDT documented as of this encounter Plan of Treatment Upcoming Encounters Date Type Specialty Care Team Description 05/03/2022 Telemedicine Clinical Genomics Sanya Mehta M.D. 200 [place] [address] 05/06/2022 Clinical Communication Admitting/Central Scheduling 05/09/2022 Office Visit Oncology Farzana Allen M.D. 200 [place] [address] 05/17/2022 Clinical Communication Admitting/Central Scheduling 05/21/2022 Lab Laboratory Medicine Vini Maki M.D., Ph.D. [address] [place] [phone] 05/21/2022 Appointment Radiology Vini Maki M.D., Ph.D. [address] [place] [phone] 05/21/2022 Office Visit Oncology Vini Maki M.D., Ph.D. [address] [place] [phone] 06/11/2022 Ancillary Procedure Ophthalmology Chas Shin M.D. [address] [place] [address] [phone] 06/11/2022 Ancillary Procedure Ophthalmology Chas Shin M.D. [address] [place] [phone] 06/11/2022 Office Visit Ophthalmology Chas Shin M.D. [address] [place] [phone] documented as of this encounter Visit Diagnoses Not on filedocumented in this encounter
--- OUTSIDE RECORDS SUMMARY | 2022-04-10 09:38 | XMS_ITS | Encounter Summary ---
:1970 Author Organization [facility] Address [address] [place] [address] Care Team Providers Name Role Phone Unavailable Primary Care Provider Unavailable Encounter Details Date Type Department Care Team Description 03/07/2022 Clinical Communication Department of Rebeca Valle , Oncology in [place]., [place], [place] [address] [place] [address] 200 [place] [phone] Social History Tobacco Use Types Packs/Day Years [...] More than 4 times per year 01/07/2022 mu-ism services? Do you belong to any clubs [...] have completed or the highest Maulik, MEd, APARTMENT COMMUNITY ASSISTANT MANAGER, 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 Sex Assigned at Date Recorded Female 01/07/2022 11:11 AM CDT documented as of this encounter Plan of Treatment Upcoming Encounters Date Type Specialty Care Team Description 05/03/2022 Telemedicine Clinical Genomics Sanya Mehta M.D. [address] [place] [phone] 05/06/2022 Clinical Communication Admitting/Central Scheduling 05/09/2022 Office Visit Oncology Farzana Allen M.D. [address] [place] [phone] 05/17/2022 Clinical Communication Admitting/Central Scheduling 05/21/2022 Lab Laboratory Medicine Vini Maki M.D., Ph.D. [address] [place] [phone] 05/21/2022 Appointment Radiology Vini Maki M.D., Ph.D. [address] [place] [phone] 05/21/2022 Office Visit Oncology Vini Maki M.D., Ph.D. [address] [place] [phone] 06/11/2022 Ancillary Procedure Ophthalmology Chas Shin M.D. [address] [place] [phone] 06/11/2022 Ancillary Procedure Ophthalmology Chas Shin M.D. [address] [place] [phone] 06/11/2022 Office Visit Ophthalmology Chas Shin M.D. [address] [place] [phone] documented as of this encounter Visit Diagnoses Not on filedocumented in this encounter
--- OUTSIDE RECORDS SUMMARY | 2022-04-10 09:38 | XMS_ITS | Encounter Summary ---
:1970 Author Organization [facility] Address [address] [place] [address] Care Team Providers Name Role Phone Unavailable Primary Care Provider Unavailable Reason for Visit Radiation Therapy (Routine) - Closed Specialty Diagnoses / Procedures Referred By Contact Refer red To Contact Diagnoses Malignant Neoplasm Of Brain (HCC) Stephanie Gleason M.D. [facility] Radiation Oncology Procedures Prior Auth Rad Tx [place] IMRT COMPLEX [address] [place] [address] 1821 [facility] [place] [address] Referral ID Status Reason Start Date Expiration Date Visits Requ ested Visits Authorized [id number] Closed 01/31/2022 12/31/2022 30 30 Encounter Details Date Type Department Care Team Description 03/06/2022 Hospital Encounter Department of Radiation Jacquelyn Gleason I., Oncology in [place] [address] [facility] 1821 [place] [phone] Social History Tobacco Use Types Packs/Day Years [...] or relatives? How often do you attend congregational or More than 4 times per year 01/07/2022 adventist services? Do you belong to any clubs or No 01/07/2022 organizations such as congregational groups, unions, fraternal or athletic groups, or [...] have completed or the highest Maulik, MEd, NATIONAL SERVICE OFFICER, 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 Sex [...] Telemedicine Clinical Genomics Sanya Mehta M.D. 200 [place] [address] 05/06/2022 Clinical Communication Admitting/Central Scheduling 05/09/2022 Office Visit Oncology Farzana Allen M.D. 200 [place] [address] 05/17/2022 Clinical Communication Admitting/Central Scheduling 05/21/2022 Lab Laboratory Medicine Vini Maki M.D., Ph.D. [address] [place] [phone] 05/21/2022 Appointment Radiology Vini Maki M.D., Ph.D. [address] [place] [phone] 05/21/2022 Office Visit Oncology Vini Maki M.D., Ph.D. [address] [place] [phone] 06/11/2022 Ancillary Procedure Ophthalmology Chas Shin M.D. [address] [place] [phone] 06/11/2022 Ancillary Procedure Ophthalmology Chas Shin M.D. [address] [place] [phone] 06/11/2022 Office Visit Ophthalmology Chas Shin M.D. [address] [place] [phone] documented as of this encounter Visit Diagnoses Not on filedocumented in this encounter
--- OUTSIDE RECORDS SUMMARY | 2022-04-10 09:38 | XMS_ITS | Encounter Summary ---
:1970 Author Organization [facility] Address [address] [place] [address] Care Team Providers Name Role Phone Unavailable Primary Care Provider Unavailable Reason for Visit Radiation Therapy (Routine) - Closed Specialty Diagnoses / Procedures Referred By Contact Refer red To Contact Diagnoses Malignant Neoplasm Of Brain (HCC) Stephanie Gleason M.D. [facility] Radiation Oncology Procedures Prior Auth Rad Tx [place] IMRT COMPLEX [address] [place] [address] 1821 [facility] [address] Referral ID Status Reason Start Date Expiration Date Visits Requ ested Visits Authorized [id number] Closed 01/31/2022 12/31/2022 30 30 Encounter Details Date Type Department Care Team Description 03/08/2022 Hospital Encounter Department of Radiation Jacquelyn Gleason I., [place]cology [place] [address] [facility] [address] [place] [phone] Social History Tobacco Use Types Packs/Day Years [...] or relatives? How often do you attend uatsdin or More than 4 times per year 01/07/2022 sikh services? Do you belong to any clubs or No 01/07/2022 organizations such as uatsdin groups, unions, fraternal or athletic groups, or [...] have completed or the highest Maulik, MEd, BULK STATION AGENT, 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 Sex [...] Telemedicine Clinical Genomics Sanya Mehta M.D. 200 [place] [address] 05/06/2022 Clinical Communication Admitting/Central Scheduling 05/09/2022 Office Visit Oncology Farzana Allen M.D. 200 [place] [address] 05/17/2022 Clinical Communication Admitting/Central Scheduling 05/21/2022 Lab Laboratory Medicine Vini Maki M.D., Ph.D. [address] [place] [phone] 05/21/2022 Appointment Radiology Vini Maki M.D., Ph.D. [address] [place] [phone] 05/21/2022 Office Visit Oncology Vini Maki M.D., Ph.D. [address] [place] [phone] 06/11/2022 Ancillary Procedure Ophthalmology Chas Shin M.D. [address] [place] [phone] 06/11/2022 Ancillary Procedure Ophthalmology Chas Shin M.D. [address] [place] [phone] 06/11/2022 Office Visit Ophthalmology Chas Shin M.D. [address] [place] [phone] documented as of this encounter Visit Diagnoses Not on filedocumented in this encounter
--- OUTSIDE RECORDS SUMMARY | 2022-04-10 09:38 | XMS_ITS | Encounter Summary ---
:[address] [facility] Address [address] [place] [address] Care Team Providers Name Role Phone Unavailable Primary Care Provider Unavailable Reason for Referral Radiation Therapy (Routine) - Authorized Specialty Diagnoses / Procedures Referred By Contact Refer red To Contact Diagnoses Malignant Neoplasm Of Brain (HCC) Stephanie Gleason M.D. [facility] Radiation Oncology Procedures Management Visit [address] [facility] at [place], [place] [phone] [place] [address] Referral ID Status Reason Start Date Expiration Date Visits V isits Requested Authorized [id number] Authorized 12/31/2021 12/31/2022 10 10 Reason for Visit Radiation Therapy (Routine) - Authorized Specialty Diagnoses / Procedures Referred By Contact Refer red To Contact Diagnoses Malignant Neoplasm Of Brain (HCC) Stephanie Gleason M.D. [facility] Radiation Oncology Procedures Management Visit [address] [place] [phone] [place] [address] Referral ID Status Reason Start Date Expiration Date Visits V isits Requested Authorized [id number] Authorized 12/31/2021 12/31/2022 10 10 Encounter Details Date Type Department Care Team Description 03/12/2022 Hospital Encounter Department of Stephanie Gleason Neoplasm Radiation Oncology Sebastian Marcelino Of Brain (HCC) in [place], [facility] [address] [place], [place] [address] [facility] [address] [place], [place] [phone] (Work) [phone] Social History Tobacco Use Types Packs/Day Years [...] have completed or the highest Maulik, MEd, POLISHER SAND, 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 Sex Assigned at Date Recorded Female 01/07/2022 11:11 AM CDT documented as of this encounter Last Filed Vital Signs Vital Sign Reading Time Taken Comments Blood Pressure 119/79 03/12/2022 1:25 PM CDT Pulse 62 03/12/2022 1:25 PM CDT Temperature 36.5 ??C (97.7 ??F) 03/12/2022 1:25 PM CDT Respiratory Rate - - Oxygen Saturation - - Inhaled Oxygen Concentration - - Weight 89.8 kg (197 lb 15.6 oz) 03/12/2022 1:25 PM CDT Height - - Body Mass Index 31.44 01/24/2022 9:36 AM CDT documented in this [...] encounter Progress Notes Stephanie Gleason M.D. - 03/12/2022 1:15 PM CDT ATTESTATION FOR MANAGEMENT VISIT I saw and evaluated the patient and participated in the hill portions of the service as noted below. I reviewed the documentation of Ms. Eileen Hopkins RN and agree with the findings and plan. The patient appears well on exam. We will continue with radiation as planned and anticipate that Ms. Cedillo will complete her treatments this week.. We anticipate that Mia Richardson will complete radiation treatment as planned without interruptions. The course of treatment was tolerated well. The patient experienced toxicities of grade 1 dermatitis and alopecia during radiation treatment. Follow-up will be with her Neuro-oncology team. I will see her again as needed. Their questions were answered, and they were comfortable with this plan. Stephanie Gleason M.D., 03/12/2022 SUBJECTIVE REASON FOR VISIT Evaluation for side effects while receiving radiation treatment for 1. Malignant Neoplasm Of Brain (HCC) SUPERVISED BY: Dr. Gleason HISTORY OF PRESENT ILLNESS Mia Richardson is a 51 y.o. female with newly diagnosed glioblastoma, IDH-wild type, MGMT non-methylated s/p craniotomy and resection [...] (cGy) First Treatment Last Treatment Elapsed Days [id number] 01/31/2022 03/12/2022 40 Course Summary 01/31/2022 03/12/2022 40 Oncology History Malignant Neoplasm Of Brain (HCC) [...] sense. The patient was taken to the [facility] with altered mental status. The [...] with steroids and Keppra and transferred to [facility]. 11/30/2021 Imaging MRI of the brain demonstrated [...] Referral to Dr. Shelbie Ackerman at the [facility]. Discussed that it was okay for the [...] plus temozolomide. Referral to Radiation Oncology at [facility] in [place]. 01/10/2022 Surgery and Procedures Left temporoparietal stereotactic craniotomy with tumor resection, speech mapping with Dr. Ivey. PATHOLOGY: A-D. Brain, left temporal lesion, resection: Glioblastoma, IDH-wildtype (SENIOR CONSULTANT WHO grade 4), clinically residual. See comment. COMMENT: The patient's history of left temporal-parietal mitotically-active infiltrating glioma status post biopsy on 12/06/2019 (reviewed at [facility], [id number]), is noted. The biopsy specimen lacked microvascular proliferation and tumor necrosis. By immunohistochemistry, the tumor cells were negative for IDH1-R132H and showed retained ATRX expression. Next-generation sequencing panel performed at 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 Testing in 2021 from [facility] lab. As of 2021, there is no confirmed relationship between pathogenic CHEK2 mutations and glioblastoma. The patient was seen and examined today with Dr. Gleason. The patient reports that she is doing well overall. Vision is a little worse compared to last week. She denies fevers, chills or vomiting. She takes Zofran twice a day as needed. She now has figured out that Bactrim causes her nausea. Headaches have improved overall and occur minimally. She has noticed some more hair loss to the treatment field area. She denies seizures. She describes slight dysphagia and minimal acid reflux. She denies dry eyes or hearing changes. PATIENT REPORTED SYMPTOM SCREEN FATIGUE (Scale: 0 = no fatigue; 10 = worst fatigue you can imagine): 2 PAIN (Scale: 0 = no pain; 10 = worst pain you can imagine): 3 OVERALL QUALITY OF LIFE (Scale: 0 = as bad as can be; 10 = as good as can be): 9 OBJECTIVE BP 119/79 (BP Location: Right arm, Patient Position: Sitting, Cuff Size: Small) Pulse 62 Temp 36.5 ??C (Temporal) Wt 89.8 kg BMI 31.44 kg/m?? PHYSICAL EXAM General: Alert and oriented in no apparent distress. Skin: slight pink tone to the left side of scalp, thinning and mild hair loss noted to left scalp region. ASSESSMENT / PLAN #1 Glioblastoma, IDH-wild type, MGMT non-methylated #2 Intensity modulated radiotherapy to the left sided cavity and SAMMY enhancement initiated on January 31, 2022; anticipated completion on March 14, 2022; along with Temodar The patient is tolerating radiation treatment well overall. Radiation related side effects should start to improve in the coming weeks. She is scheduled for brain MR, Medical Oncology and Neurosurgery follow up on April 04, 2022 on on [facility]. She is then scheduled for vision testing and Ophthalmology appointments on March 25-2021. Endocrinology Thyroid Clinic will see patient on March 29, 2022. She continues to work with PT, OT and Speech through [facility] and [facility]. We will not order formal follow up in Radiation Oncology at this time. She will contact us with any questions or concerns. We will continue with radiation treatment as planned. Patient stated a full understanding to the plan of care discussed today. Toxicities reviewed with Dr. Gleason today. Signed by: Eileen Hopkins R.N. 03/12/2022 1:40 PM CDT documented in this encounter Plan of Treatment Upcoming Encounters Date Type Specialty Care Team Description 05/03/2022 Telemedicine Clinical Genomics Sanya Mehta M.D. [address] [place] [phone] 05/06/2022 Clinical Communication Admitting/Central Scheduling 05/09/2022 Office Visit Oncology Farzana Allen M.D. [address] [place] [phone] 05/17/2022 Clinical Communication Admitting/Central Scheduling 05/21/2022 Lab Laboratory Medicine Vini Maki M.D., Ph.D. [address] [place] [address] [phone] 05/21/2022 Appointment Radiology Vini Maki M.D., Ph.D. [address] [place] [phone] 05/21/2022 Office Visit Oncology Vini Maki M.D., Ph.D. [address] [place] [phone] 06/11/2022 Ancillary Procedure Ophthalmology Chas Shin M.D. 200 [place] [phone] 06/11/2022 Ancillary Procedure Ophthalmology Chas Shin M.D. 200 [place] [phone] 06/11/2022 Office Visit Ophthalmology Chas Shin M.D. 200 [place] [phone] Scheduled Orders Name Type Priority Associated Diagnoses Order S chedule Management Visit Radiation Oncology Routine Malignant Neoplasm Once for 1 Of Brain (HCC) Occurrences s tarting 03/12/2022 unti l 03/12/2022 documented as of this encounter Visit Diagnoses Diagnosis Malignant Neoplasm Of Brain (HCC) documented in this encounter
--- OUTSIDE RECORDS SUMMARY | 2022-04-10 09:38 | XMS_ITS | Encounter Summary ---
:1970 Author Organization [facility] Address [address] [place] [address] Care Team Providers Name Role Phone Unavailable Primary Care Provider Unavailable Reason for Visit Reason Comments 03-11-22 Labs Only Encounter Details Date Type Department Care Team Description 03/12/2022 Clinical Communication Department of Latanya Michael 02-22 Labs Only Oncology in D, R.N., O.C.N. [place], [address] [place] [address] [place] [phone] [place] [address] Social History Tobacco Use Types Packs/Day Years [...] or relatives? How often do you attend episcopalian or More than 4 times per year 01/07/2022 anabaptist services? Do you belong to any clubs or No 01/07/2022 organizations such as episcopalian groups, unions, fraternal or athletic groups, or [...] have completed or the highest Maulik, MEd, MOTOR TESTER, 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 Sex Assigned at Date Recorded Female 01/07/2022 11:11 AM CDT documented as of this encounter Miscellaneous Notes Telephone Encounter - Olivia Koenig D.N.P., M.Domingo., R.N.MARIANO - 03/12/2022 9:44 AM CDT Labs Verified Telephone Encounter - Trupti Pearson - 03/12/2022 9:13 AM CDT Labs have been entered and are ready for review. Telephone Encounter - Margaret Carnes - 03/12/2022 8:09 AM CDT Labs drawn on 03-11-22 are here. Labs are scanned into [employer] from an outside facility. They will be available through document viewer and should be available in approximately 5 minutes. Thank you, Margaret [facility] AA POD 1 documented in this encounter Plan of Treatment Upcoming Encounters Date Type Specialty Care Team Description 05/03/2022 Telemedicine Clinical Genomics Sanya Mehta M.D. [address] [place] [phone] 05/06/2022 Clinical Communication Admitting/Central Scheduling 05/09/2022 Office Visit Oncology Farzana Allen M.D. [address] [place] [phone] 05/17/2022 Clinical Communication Admitting/Central Scheduling 05/21/2022 Lab Laboratory Medicine Vini Maki M.D., Ph.D. [address] [place] [phone] 05/21/2022 Appointment Radiology Vini Maki M.D., Ph.D. [address] [place] [phone] 05/21/2022 Office Visit Oncology Vini Maki M.D., Ph.D. [address] [place] [phone] 06/11/2022 Ancillary Procedure Ophthalmology Chas Shin M.D. [address] [place] [address] [phone] 06/11/2022 Ancillary Procedure Ophthalmology Chas Shin M.D. [address] [place] [phone] 06/11/2022 Office Visit Ophthalmology Chas Shin M.D. [address] [place] [phone] documented as of this encounter Procedures Procedure Name Priority Date/Time Associated Diagnosis Comme nts HEMATOLOGY/ONCOLOGY Routine 03/11/2022 1:30 PM Re sults for this - BLOOD, EXTERNAL CDT procedure are in LAB RESULTS the results section. documented in this encounter Results (ABNORMAL) Hematology/Oncology - Blood, External Lab Results (03/11/2022 1:30 PM CDT) P athologist Signature EXT Hemoglobin 13.0 12 - 16 OTHER (SPECIFY IN PIGMENT GRINDER) EXT Leukocytes 3.7 (A) 4.50 - 11 OTHER (SPECIFY IN PIGMENT GRINDER) EXT Absolute 2.20 1.7 - 7 OTHER Neutrophil (SPECIFY IN Count PIGMENT GRINDER) EXT Lymphs 1 0.90 - 2.9 OTHER Absolute (SPECIFY IN PIGMENT GRINDER) EXT Platelet 235 140 - 440 OTHER Count (SPECIFY IN PIGMENT GRINDER) Specimen (Source) Anatomical Collection Method Collection Time Re ceived Time Location / / Volume Laterality Blood 03/11/2022 1:30 PM CDT Narrative This result has an attachment that is no t available. Historical Provider LAB BLOOD NON ADD-ON Performing Organization Address City/State/ZIP Code Phon e Number OTHER (SPECIFY IN PIGMENT GRINDER) OTHER (SPECIFY IN PIGMENT GRINDER) N/A documented in this encounter Visit Diagnoses Not on filedocumented in this encounter
--- OUTSIDE RECORDS SUMMARY | 2022-04-10 09:38 | XMS_ITS | Encounter Summary ---
:1970 Author Organization [facility] Address [address] [place] [address] Care Team Providers Name Role Phone Unavailable Primary Care Provider Unavailable Reason for Visit Radiation Therapy (Routine) - Closed Specialty Diagnoses / Procedures Referred By Contact Refer red To Contact Diagnoses Malignant Neoplasm Of Brain (HCC) Stephanie Gleason M.D. [facility] Radiation Oncology Procedures Prior Auth Rad Tx [place] IMRT COMPLEX [address] [place] [phone] [facility] [place] [address] Referral ID Status Reason Start Date Expiration Date Visits Requ ested Visits Authorized [id number] Closed 01/31/2022 12/31/2022 30 30 Encounter Details Date Type Department Care Team Description 03/14/2022 Hospital Encounter Department of Radiation Jacquelyn Gleason I., [place] [address] [facility] [address] [place] [phone] Social History Tobacco Use Types Packs/Day Years [...] or relatives? How often do you attend oriental orthodox or More than 4 times per year 01/07/2022 baptist services? Do you belong to any clubs or No 01/07/2022 organizations such as oriental orthodox groups, unions, fraternal or athletic groups, [...] have completed or the highest Maulik, MEd, HIGHWAY MAINTENANCE CREW WORKER, 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 Sex Assigned at Date Recorded Female 01/07/2022 11:11 AM CDT documented as of this encounter Plan of Treatment Upcoming Encounters Date Type Specialty Care Team Description 05/03/2022 Telemedicine Clinical Genomics Sanya Mheta M.D. [address] [place] [address] 05/06/2022 Clinical Communication Admitting/Central Scheduling 05/09/2022 Office Visit Oncology Farzana Allen M.D. [address] [place] [phone] 05/17/2022 Clinical Communication Admitting/Central Scheduling 05/21/2022 Lab Laboratory Medicine Vini Maki M.D., Ph.D. [address] [place] [phone] 05/21/2022 Appointment Radiology Vini Maki M.D., Ph.D. [address] [place] [phone] 05/21/2022 Office Visit Oncology Vini Maki M.D., Ph.D. [address] [place] [phone] 06/11/2022 Ancillary Procedure Ophthalmology Chas Shin M.D. [address] [place] [phone] 06/11/2022 Ancillary Procedure Ophthalmology Chas Shin M.D. [address] [place] [phone] 06/11/2022 Office Visit Ophthalmology Chas Shin M.D. [address] [place] [phone] documented as of this encounter Visit Diagnoses Not on filedocumented in this encounter
--- OUTSIDE RECORDS SUMMARY | 2022-04-10 09:38 | XMS_ITS | Encounter Summary ---
:1970 Author Organization [facility] Address [address] [place] [address] Care Team Providers Name Role Phone Unavailable Primary Care Provider Unavailable Reason for Visit Radiation Therapy (Routine) - Closed Specialty Diagnoses / Procedures Referred By Contact Refer red To Contact Diagnoses Malignant Neoplasm Of Brain (HCC) Stephanie Gleason M.D. [facility] Radiation Oncology Procedures Prior Auth Rad Tx [place] IMRT COMPLEX [address] [place] [phone] [facility] [place] [address] Referral ID Status Reason Start Date Expiration Date Visits Requ ested Visits Authorized [id number] Closed 01/31/2022 12/31/2022 30 30 Encounter Details Date Type Department Care Team Description 03/11/2022 Hospital Encounter Department of Radiation Jacquelyn Gleason I., [place]cology [place] [address] [facility] [address] [place] [phone] Social History Tobacco Use Types Packs/Day Years [...] More than 4 times per year 01/07/2022 restorationism services? Do you belong to any clubs [...] have completed or the highest Maulik, MEd, RECREATION WORKER, 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 Sex Assigned at Date Recorded Female 01/07/2022 11:11 AM CDT documented as of this encounter Plan of Treatment Upcoming Encounters Date Type Specialty Care Team Description 05/03/2022 Telemedicine Clinical Genomics Sanya Mehta M.D. [address] [place] [address] 05/06/2022 Clinical Communication Admitting/Central Scheduling 05/09/2022 Office Visit Oncology Farzana Allen M.D. [address] [place] [phone] 05/17/2022 Clinical Communication Admitting/Central Scheduling 05/21/2022 Lab Laboratory Medicine Vini Maki M.D., Ph.D. [address] [place] [phone] 05/21/2022 Appointment Radiology Vini Maki M.D., Ph.D. [address] [place] [phone] 05/21/2022 Office Visit Oncology Vini Maki M.D., Ph.D. [address] [place] [phone] 06/11/2022 Ancillary Procedure Ophthalmology Chas Shin M.D. [address] [place] [phone] 06/11/2022 Ancillary Procedure Ophthalmology Chas Shin M.D. [address] [place] [phone] 06/11/2022 Office Visit Ophthalmology Chas Shin M.D. [address] [place] [phone] documented as of this encounter Visit Diagnoses Not on filedocumented in this encounter
--- OUTSIDE RECORDS SUMMARY | 2022-04-10 09:38 | XMS_ITS | Encounter Summary ---
:1970 Author Organization [facility] Address [address] [place] [address] Care Team Providers Name Role Phone Unavailable Primary Care Provider Unavailable Encounter Details Date Type Department Care Team Description 03/14/2022 Documentation Department of Radiation Stephanie Gleason I., [facility] [place] [address] [address] [facility] [address] [place] [phone] (Wo rk) Social History Tobacco Use Types [...] or relatives? How often do you attend zoroastrianism or More than 4 times per year 01/07/2022 jainism services? Do you belong to any clubs or No 01/07/2022 organizations such as zoroastrianism groups, unions, fraternal or athletic groups, or [...] have completed or the highest Maulik, MEd, LEARNING STRATEGIST, 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 Sex Assigned at Date Recorded Female 01/07/2022 11:11 AM CDT documented as of this encounter Miscellaneous Notes Radiation Completion Notes - Shelbie Espitia R.N. - 03/14/2022 11:59 PM CDT DIAGNOSIS: 1. Malignant Neoplasm Of Brain (HCC) Attending Physician: Setphanie Gleason M.D. Treatment Intent: Curative Concomitant Therapy: Chemotherapy Single Plan Treatment Course: 1xBrain Plan ID Fractions Dose / Fraction (cGy) Dose Treated (cGy) Dose Planned (cGy) First Treatment Last Treatment Elapsed Days [id number] 200 6000 6000 01/31/2022 03/14/2022 42 Course Summary 01/31/2022 03/14/2022 42 Radiation Modality: Photons CLINICAL SUMMARY Mia Richardson completed radiation treatment as planned without interruptions. The course of treatment was tolerated well. The patient experienced toxicities of grade 1 dermatitis and alopecia duringradiation treatment. TREATMENT RESPONSE: Response to treatment will be determined by post-treatment imaging and/or laboratory work. RECOMMENDED FOLLOW UP: Neuro-Oncology . Dr. Maki Signed by: Shelbie Espitia R.N., 04/08/2022 1:13 PM CDT [facility] [address] [place] [address] documented in this encounter Plan of Treatment Upcoming Encounters Date Type Specialty Care Team Description 05/03/2022 Telemedicine Clinical Genomics Sanya Mehta M.D. [address] [place] [phone] 05/06/2022 Clinical Communication Admitting/Central Scheduling 05/09/2022 Office Visit Oncology Farzana Allen M.D. [address] [place] [phone] 05/17/2022 Clinical Communication Admitting/Central Scheduling 05/21/2022 Lab Laboratory Medicine Vini Maki M.D., Ph.D. [address] [place] [phone] 05/21/2022 Appointment Radiology Vini Maki M.D., Ph.D. [address] [place] [phone] 05/21/2022 Office Visit Oncology Vini Maki M.D., Ph.D. [address] [place] [phone] 06/11/2022 Ancillary Procedure Ophthalmology Chas Shin M.D. [address] [place] [phone] 06/11/2022 Ancillary Procedure Ophthalmology Chas Shin M.D. [address] [place] [phone] 06/11/2022 Office Visit Ophthalmology Chas Shin M.D. [address] [place] [phone] documented as of this encounter Visit Diagnoses Diagnosis Malignant Neoplasm Of Brain (HCC) - Prim uyen documented in this encounter
--- OUTSIDE RECORDS SUMMARY | 2022-04-10 09:38 | XMS_ITS | Encounter Summary ---
:1970 Author Organization [facility] Address [address] [place] [address] Care Team Providers Name Role Phone Unavailable Primary Care Provider Unavailable Encounter Details Date Type Department Care Team Description 03/25/2022 Ancillary Procedure Department of Ophthalmology Social History Tobacco Use Types Packs/Day Years [...] or relatives? How often do you attend scientologist or More than 4 times per year 01/07/2022 yazdanism services? Do you belong to any clubs or No 01/07/2022 organizations such as scientologist groups, unions, fraternal or athletic groups, or [...] have completed or the highest Maulik, MEd, TIE HACKER, 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 Sex Assigned at Date Recorded Female 01/07/2022 11:11 AM CDT documented as of this encounter Plan of Treatment Upcoming Encounters Date Type Specialty Care Team Description 05/03/2022 Telemedicine Clinical Genomics Sanya Mehta M.D. [address] [place] [phone] 05/06/2022 Clinical Communication Admitting/Central Scheduling 05/09/2022 Office Visit Oncology Farzana Allen M.D. [address] [place] [phone] 05/17/2022 Clinical Communication Admitting/Central Scheduling 05/21/2022 Lab Laboratory Medicine Vini Maki M.D., Ph.D. [address] [place] [phone] 05/21/2022 Appointment Radiology Vini Maki M.D., Ph.D. [address] [place] [address] [phone] 05/21/2022 Office Visit Oncology Vini Maki M.D., Ph.D. [address] [place] [phone] 06/11/2022 Ancillary Procedure Ophthalmology Chas Shin M.D. [address] [place] [phone] 06/11/2022 Ancillary Procedure Ophthalmology Chsa Shin M.D. [address] [place] [address] 06/11/2022 Office Visit Ophthalmology Chas Shin M.D. [address] [place] [phone] documented as of this encounter Procedures Procedure Name Priority Date/Time Associated Comments Diagnosis OPHTHALMOLOGY IMAGE Routine 03/25/2022 10:45 Resu lts for this EXAM AM CDT procedure are i n the results section. documented in this encounter Results Visual Smith (VF)-Ophthalmology Image Exam (03/25/2022 10:45 AM CDT) Specimen (Source) Anatomical Collection Method Collection Time Re ceived Time Location / / Volume Laterality 03/25/2022 10:43 AM CDT Narrative [facility] - 03/25/2022 11:07 AM CDT This order has been created and auto-finalized to support the import of images acquired without order. The clini jordyn documentation to support these images can be found on the encounter mayuri t produced images. Provider Not In System IMG NON RAD IMAGING PROCEDUR ES Performing Organization Address City/State/ZIP Code Phon e Number [facility] NA documented in this encounter Visit Diagnoses Not on filedocumented in this encounter
--- OUTSIDE RECORDS SUMMARY | 2022-04-10 09:38 | XMS_ITS | Encounter Summary ---
:1970 Author Organization [facility] Address [address] [place] [address] Care Team Providers Name Role Phone Unavailable Primary Care Provider Unavailable Reason for Referral Outpatient (Routine) - Authorized Specialty Diagnoses / Procedures Referred By Contact Refer red To Contact Diagnoses Malignant Neoplasm Of Brain (HCC) Blurred Vision Hemianopsia Homonymous Chas Shin M.D. [facility] Procedures Refraction [address] [place] [phone] Referral ID Status Reason Start Date Expiration Date Visits V isits Requested Authorized [id number] Authorized 03/26/2022 03/26/2023 1 1 Outpatient (Routine) - Authorized Specialty Diagnoses / Procedures Referred By Contact Refer red To Contact Ophthalmology Chas Shin M.D. [facility] [address] [place] [phone] Referral ID Status Reason Start Date Expiration Date Visits V isits Requested Authorized [id number] Authorized 03/26/2022 03/26/2023 1 1 Reason for Visit Outpatient (Routine) - Closed Specialty Diagnoses / Procedures Referred By Contact Refer red To Contact Ophthalmology Diagnoses Malignant Neoplasm Of Brain (HCC) Blurred [facility] [address] [place] [address] Referral ID Status Reason Start Date Expiration Date Visits Requ ested Visits Authorized [id number] Closed 01/30/2022 01/30/2023 1 1 Encounter Details Date Type Department Care Team Description 03/26/2022 Comprehensive Visit Department of Ladonna Shin Homonymous (Primary Dx); Ophthalmology in Chas Ferro M.D. Malignant Neoplasm Of Brain (HCC); [place], [place] [address] [facility] Blurred Vision [address] [place] [phone] Social History Tobacco Use Types Packs/Day [...] have completed or the highest Maulik, MEd, COMMERCIAL ASSISTANT, 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 Sex Assigned at Date Recorded Female 01/07/2022 11:11 AM CDT documented as of this encounter Progress Notes Chas Shin M.D. - 03/26/2022 8:00 AM CDT ASSESSMENT / PLAN #1 Glioblastoma status post resection (12/05/2021, 01/10/22) #2 Incomplete, right homonymous hemianopia Testing 03/25/2022: Crowe visual field: Right: reliable, temporal depression respecting the vertical meridian Left: reliable, nasal depression respecting the vertical meridian OCT: Right: normal rNFL, subtle nasal GCC thinning on heat map Left: normal rNFL, subtle temporal GCC thinning on heat map Overall Impression 03/26/2022: The patient was referred for evaluation in the context of a glioblastoma. The exam today showed central acuity of 20/20 in each eye with normal pupils and color vision. The efferent exam showed full motility. Alternate cover testing showed a comitant small exophoria and lefthyperphoria. She did not have subjective double during the exam. The dilated fundus exam showed mildtemporal optic nerve pallor in both eyes. Visual field testing showed temporal depression in the right eye and nasal depression in the left eye. OCT showed a normal rNFL in both eyes. There was subtle nasal ganglion cell thinning in the right eye and subtle temporal ganglion cell thinning in the left eye, corresponding to her homonymous visual field loss. Overall, the patient has an incomplete, right homonymous hemianopia referable to her glioblastoma. She also has some subtle ocular misalignment, but no subjective double vision at this time. She has some difficulty with focusing at near, particularly in the morning as well as eye strain/fatigue. We discussed that some of these symptoms may improve with time alone. When we reassess her in clinic we can recheck if a glasses prescription change would be helpful and also consider whether any prism in the glasses would be beneficial. 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 I offered a referral to low vision[facility]. Plan 03/26/2022: RTC 2 months with refraction, orthoptics, and 24-2 Crowe visual field (coordinate with oncology visits) Consider low vision/vision rehab referral HPI The patient was referred by MAGGY Romero who saw the patient most recently via telemedicine 03/07/2022. The patient has a history of a glioblastoma. In November 2021 she had a headache and was confused. MRI 11/30/2021 showed a mass within the left posterior temporal lobe. She had a biopsy/resection 12/05/2021 outside at [facility]. She had a 2nd resection here 01/10/2022. 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 She was started on temozolomide 02/02/2022. She started radiation 01/31/2022 and has now finished. Regarding her vision, the patient noticed after her second surgery she did not feel like she could use both eyes together - she was noticing diagonal double that would resolve closing/covering an eye. This has resolved. She has had trouble reading if its too close - she feels like she cannot see the entire page at one time. She denies any particular eye history. She wears glasses. She denies eye surgery. documented in this encounter Plan of Treatment Upcoming Encounters Date Type Specialty Care Team Description 05/03/2022 Telemedicine Clinical Genomics Sanya Mehta M.D. [address] [place] [phone] 05/06/2022 Clinical Communication Admitting/Central Scheduling 05/09/2022 Office Visit Oncology Farzana Allen M.D. [address] [place] [phone] 05/17/2022 Clinical Communication Admitting/Central Scheduling 05/21/2022 Lab Laboratory Medicine Vini Maki M.D., Ph.D. [address] [place] [phone] 05/21/2022 Appointment Radiology Vini Maki M.D., Ph.D. [address] [place] [phone] 05/21/2022 Office Visit Oncology Vini Maki M.D., Ph.D. [address] [place] [phone] 06/11/2022 Ancillary Procedure Ophthalmology Chas Shin M.D. [address] [place] [phone] 06/11/2022 Ancillary Procedure Ophthalmology Chas Shin M.D. [address] [place] [phone] 06/11/2022 Office Visit Ophthalmology Chas Shin M.D. [address] [place] [phone] Scheduled Orders Name Type Priority Associated Diagnoses Order S chedule Automated VF - Ophthalmology Routine Malignant Neoplasm Of Exp ected: Extended - OU - Both Brain (HCC) 06/05/2022 Eyes Blurred Vision (Approximate), Hemianopsia Expires: 2022 Homonymous Refraction Ophthalmology Routine Malignant Neoplasm Of Expec anayeli: Brain (HCC) 06/05/2022 Blurred Vision (Approximate), Hemianopsia Expires: 2022 Homonymous Scheduled Referrals Name Type Priority Associated Order Schedule Diagnoses Ophthalmology office Outpatient Referral Routine Expected: visit (clinic) 05/29/2022 (Approximate), Expires: 06/26/2023 documented as of this encounter Visit Diagnoses Diagnosis Hemianopsia Homonymous - Primary Malignant Neoplasm Of Brain (HCC) Blurred Vision documented in this encounter
--- OUTSIDE RECORDS SUMMARY | 2022-04-10 09:38 | XMS_ITS | Encounter Summary ---
:1970 Author Organization [facility] Address [address] [place] [address] Care Team Providers Name Role Phone Unavailable Primary Care Provider Unavailable Reason for Visit Reason Comments Diagnostic Only Encounter Details Date Type Department Care Team Description 03/25/2022 Ancillary Department of [place], Malignant Neop lasm Procedure Ophthalmology in Chas Ferro M.D. Of Brain ([facility]) [place], [place] [address] [facility] [address] [place] [phone] Social History Tobacco Use Types Packs/Day Years [...] completed or the highest Maulik, MEd, MACHINE PAN GREASER, 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 Sex Assigned at Date Recorded Female 01/07/2022 11:11 AM CDT documented as of this encounter Plan of Treatment Upcoming Encounters Date Type Specialty Care Team Description 05/03/2022 Telemedicine Clinical Genomics Sanya Mehta M.D. [address] [place] [phone] 05/06/2022 Clinical Communication Admitting/Central Scheduling 05/09/2022 Office Visit Oncology Farzana Allen M.D. [address] [place] [phone] 05/17/2022 Clinical Communication Admitting/Central Scheduling 05/21/2022 Lab Laboratory Medicine Vini Maki M.D., Ph.D. [address] [place] [phone] 05/21/2022 Appointment Radiology Vini Maki M.D., Ph.D. [address] [place] [phone] 05/21/2022 Office Visit Oncology Vini Maki M.D., Ph.D. [address] [place] [phone] 06/11/2022 Ancillary Procedure Ophthalmology Chas Shin M.D. [address] [place] [phone] 06/11/2022 Ancillary Procedure Ophthalmology Chas Shin M.D. [address] [place] [phone] 06/11/2022 Office Visit Ophthalmology Chas Shin M.D. [address] [place] [phone] documented as of this encounter Procedures Procedure Name Priority Date/Time Associated Diagnosis Comme nts AUTOMATED VF - Routine 03/25/2022 10:46 AM Malignant Neoplasm Results for this EXTENDED - OU - CDT Of Brain (HCC) procedure are in BOTH EYES the results section. documented in this encounter Results Automated VF - Extended - OU - [...] M.D. OPHTH VISUAL FIELD Performing Organization Address City/State/ZIP Code Phon e Number OPHTHALMOLOGY IMAGING EXAM documented in this encounter Visit Diagnoses Diagnosis Malignant Neoplasm Of Brain (HCC) documented in this encounter
--- OUTSIDE RECORDS SUMMARY | 2022-04-10 09:38 | XMS_ITS | Encounter Summary ---
:1970 Author Organization [facility] Address [address] [place] [id number] Care Team Providers Name Role Phone Unavailable Primary Care Provider Unavailable Reason for Visit Outpatient (Routine) - Closed Specialty Diagnoses / Procedures Referred By Contact Refer red To Contact Oncology Rebeca Valle P .A.-C., M.S. [facility] [address] [place] [phone] Referral ID Status Reason Start Date Expiration Date Visits Requ ested Visits Authorized [id number] Closed 01/30/2022 01/30/2023 1 1 Encounter Details Date Type Department Care Team Description 03/07/2022 Virtual Visit Department of Rebeca Valle Maligna nt Neoplasm Of Oncology in [place], M.S. Brain (HCC) [place], [place] [address] [place] [address] [place] [phone] Social History Tobacco Use Types Packs/Day Years [...] 01/07/2022 organizations such as druze groups, unions, fraDGTS or athletic groups, or school groups? How [...] have completed or the highest Maulik, MEd, RD SCIENTIST, 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 Sex Assigned at Date Recorded Female 01/07/2022 11:11 AM CDT documented as of this encounter Progress Notes Rebeca Valle, PEzequiel.-C., M.S. - 03/07/2022 3:20 PM CDT SUBJECTIVE COLLABORATING ONCOLOGIST: Dr. Estrada PRIMARY DUNBARTON ONCOLOGIST: Farzana Allen M.D. CHIEF COMPLAINT/REASON FOR [...] sense. The patient was taken to the [facility] with altered mental status. The [...] with steroids and Keppra and transferred to [facility]. 11/30/2021 Imaging MRI of the brain demonstrated [...] Referral to Dr. Shelbie Ackerman at the [facility]. Discussed that it was okay for the patient to proceed with chemotherapy and radiation 1 month from biopsy date. Also discussed that itwas okay for the patient to travel on a commercial air flight approximately 1 month from biopsy as she was planning for a trip to [place] with her significant other in December. 12/24/[address] Shelbie Ackerman who reviewed the patient's case with Dr. Dunlap and he recommended against additional surgery. Dr. Macias recommended proceeding with a combination of radiation therapy plus temozolomide. Referral to Radiation Oncology at [facility] in [place]. 01/10/2022 Surgery and Procedures Left temporoparietal stereotactic craniotomy with tumor resection, speech mapping with Dr. Ivey. PATHOLOGY: A-D. 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 See comment. 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 The biopsy specimen lacked microvascular proliferation and tumor necrosis. By immunohistochemistry, the tumor cells were negative for IDH1-R132H and showed retained ATRX expression. 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 01/10/2022 Imaging MRI of [...] delayed by 2 days and thus was startedon 02/02/2022. Overall this has been well tolerated. Most notable recently laboratory testing did indicate a decreased neutrophil count at 0.82. Thus temozolomide was held for 4 days until neutrophil count was recovered. Additionally temozolomide was decreased from 160 mg to 140 mg daily. Overall doing well. She does note symptoms of fatigue and lowered energy. This is leading to a nap of 2-3 hours in the afternoon/evenings. She also notes some nausea - no episodes of vomiting. Also, hair loss at the radiation site. Ongoing concerns for vision changes - panning to meet with neuro ophthalmology in the next few weeks. - difficulty with vision for reading and concentrating. Having to have family help with documents and applications. Noting changes that vary in the right upper to the right lower extremity. She had these similarly after the resection. Noting these occurring more recently. She is working with physical therapy and occupational therapy locally. Also working on documents for disability due to previous profession and ongoing symptoms. REVIEW OF SYSTEMS Constitutional: Positive for fatigue. [...] Physical Exam LABORATORY DATA: [facility] Results on 03/06/2022 Component Date Value ??? Course ID 03/06/2022 [id number] ??? Course Start Date 03/06/2022 01/01/2022 08:23 CDT ??? First Treatment Date 03/06/2022 01/31/2022 10:11 CDT ??? Last Treatment Date 03/06/2022 03/06/2022 13:13 CDT ??? Treatment Elapsed Days 03/06/2022 34 ??? Reference Point 03/06/2022 [id number] ??? Dosage Given to Date cGy 03/06/2022 4800 ??? Session Dosage Given 03/06/2022 200 ??? Plan ID 03/06/2022 [id number] ??? Fractions Treated to Date 03/06/2022 24 ??? Planned Total Fractions 03/06/2022 30 ??? Prescribed Dose Per Frac* 03/06/2022 200 ??? Prescription Dose in cGy 03/06/2022 6000 ??? Plan Primary Reference P* 03/06/2022 [id number] ??? Course ID 03/07/2022 [id number] ??? Course Start Date 03/07/2022 01/01/2022 08:23 CDT ??? First Treatment Date 03/07/2022 01/31/2022 10:11 CDT ??? Last Treatment Date 03/07/2022 03/07/2022 13:51 CDT ??? Treatment Elapsed Days 03/07/2022 35 ??? Reference Point 03/07/2022 [id number] ??? Dosage Given to Date cGy 03/07/2022 5000 ??? Session Dosage Given 03/07/2022 200 ??? Plan ID 03/07/2022 [id number] ??? Fractions Treated to Date 03/07/2022 25 ??? Planned Total Fractions 03/07/2022 30 ??? Prescribed Dose Per Frac* 03/07/2022 200 ??? Prescription Dose in cGy 03/07/2022 6000 ??? Plan Primary Reference P* 03/07/2022 [id number] Aria Results on 03/04/2022 Component Date Value ??? Course ID 03/04/2022 [id number] ??? Course Start Date 03/04/2022 01/01/2022 08:23 CDT ??? First Treatment Date 03/04/2022 01/31/2022 10:11 CDT ??? Last Treatment Date 03/04/2022 03/04/2022 13:06 CDT ??? Treatment Elapsed Days 03/04/2022 32 ??? Reference Point 03/04/2022 [id number] ??? Dosage Given to Date cGy 03/04/2022 4400 ??? Session Dosage Given 03/04/2022 200 ??? Plan ID 03/04/2022 [id number] ??? Fractions Treated to Date 03/04/2022 22 ??? Planned Total Fractions 03/04/2022 30 ??? Prescribed Dose Per Frac* 03/04/2022 200 ??? Prescription Dose in cGy 03/04/2022 6000 ??? Plan Primary Reference P* 03/04/2022 [id number] ??? Course ID 03/05/2022 [id number] ??? Course Start Date 03/05/2022 01/01/2022 08:23 CDT ??? First Treatment Date 03/05/2022 01/31/2022 10:11 CDT ??? Last Treatment Date 03/05/2022 03/05/2022 13:16 CDT ??? Treatment Elapsed Days 03/05/2022 33 ??? Reference Point 03/05/2022 [id number] ??? Dosage Given to Date cGy 03/05/2022 4600 ??? Session Dosage Given 03/05/2022 200 ??? Plan ID 03/05/2022 [id number] ??? Fractions Treated to Date 03/05/2022 23 ??? Planned Total Fractions 03/05/2022 30 ??? Prescribed Dose Per Frac* 03/05/2022 200 ??? Prescription Dose in cGy 03/05/2022 6000 ??? Plan Primary Reference P* 03/05/2022 [id number] Patient Message on 03/04/2022 Component Date Value ??? EXT Hemoglobin 03/04/2022 12.3 ??? EXT Leukocytes 03/04/2022 4 (A) ??? EXT Absolute Neutrophil * 03/04/2022 2.2 ??? EXT Lymphs Absolute 03/04/2022 1.3 ??? EXT Platelet Count 03/04/2022 346 RADIOLOGICAL DATA: No MRI this visit. REPORTS: [...] delayed by 2 days and thus was startedon 02/02/2022. Overall this has been well tolerated. Most notable recently laboratory testing did indicate a decreased neutrophil count at 0.82. Thus temozolomide was held for 4 days until neutrophil count was recovered. Additionally temozolomide was decreased from 160 mg to 140 mg daily. She does have a few questions regarding, labs, treatment, schedule. Labs - within range. Treatment-at this time will continue with radiation and concurrent temozolomide. When radiation is completed on 03/14/2022, chemotherapy will also be discontinued on that date. There will be a short break before she will return for MRI in oncology visit on 04/04/2022. At that time we will review the MRI as well as plan the chemotherapy only portion of treatment. We briefly discussed the chemotherapy,chemotherapy regimen, and the future treatment regimen. From the treatment, she does note ongoing fatigue and lowered energy. This is likely did both radiation and chemotherapy She does also note ongoing vision changes likely due to resection as well as tumor location. She is meeting with ophthalmology in a few weeks. Then noting right upper and right lower extremity changes in terms of weakness/incoordination/numbness and tingling. This does vary. Anticipate this is related to the ongoing radiation and chemotherapy. Anticipate this will improve the further she is from the completion of these treatments. Plan: - continue with radiation and chemotherapy -continue weekly labs -follow-up orders in place We will plan on seeing the patient back near the end of radiation therapy. However, patient knows tocontact us in the interim with any new or worsening symptoms or concerns. Seizures: Keppra 1000mg twice daily Dexamethasone: Not currently taking Anticoagulation: aspirin 325mg PATIENT EDUCATION: Ready to learn, no apparent learning barriers were identified; learning preferences include listening. Explained diagnosis and treatment plan; patient expressed understanding of the content. Discussed with the patient we work together as a care team of physicians, nurse practitioners/physician assistants, nurses and other wan support specialist that specialize in this cancer. Also, reviewed the importance of maintaining ongoing care with local oncology team and primary care physician. ADMINISTRATIVE BILLING: Consult conducted via real-time audio/video technology by Ashley Romero., M.S. in [facility] [place] to the patient in their home. 30 minutes including visit, reviewing records, coordinating care. documented in this encounter Plan of Treatment Upcoming Encounters Date Type Specialty Care Team Description 05/03/2022 Telemedicine Clinical Genomics Sanya Mehta M.D. [address] [place] [phone] 05/06/2022 Clinical Communication Admitting/Central Scheduling 05/09/2022 Office Visit Oncology Farzana Allen M.D. [address] [place] [phone] 05/17/2022 Clinical Communication Admitting/Central Scheduling 05/21/2022 Lab Laboratory Medicine Vini Maki M.D., Ph.D. [address] [place] [phone] 05/21/2022 Appointment Radiology Vini Maki M.D., Ph.D. [address] [place] [phone] 05/21/2022 Office Visit Oncology Vini Maki M.D., Ph.D. [address] [place] [phone] 06/11/2022 Ancillary Procedure Ophthalmology Chas Shin M.D. [address] [place] [phone] 06/11/2022 Ancillary Procedure Ophthalmology Chas Shin M.D. [address] [place] [phone] 06/11/2022 Office Visit Ophthalmology Chas Shin M.D. 200 [place] [phone] documented as of this encounter Visit Diagnoses Diagnosis Malignant Neoplasm Of Brain (HCC) documented in this encounter
--- OUTSIDE RECORDS SUMMARY | 2022-04-10 09:38 | XMS_ITS | Encounter Summary ---
:1970 Author Organization [facility] Address [address] [place] [address] Care Team Providers Name Role Phone Unavailable [...] have completed or the highest Maulik, MEd, HOUSE DECORATOR, 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 Sex Assigned at Date Recorded Female 01/07/2022 11:11 AM CDT documented as of this encounter Plan of Treatment Upcoming Encounters Date Type Specialty Care Team Description 05/03/2022 Telemedicine Clinical Genomics Sanya Mehta M.D. [address] [place] [address] [phone] 05/06/2022 Clinical Communication Admitting/Central Scheduling 05/09/2022 Office Visit Oncology Farzana Allen M.D. [address] [place] [phone] 05/17/2022 Clinical Communication Admitting/Central Scheduling 05/21/2022 Lab Laboratory Medicine Vini Maki M.D., Ph.D. [address] [place] [address] [phone] 05/21/2022 Appointment Radiology Vini Maki M.D., Ph.D. [address] [place] [address] [phone] 05/21/2022 Office Visit Oncology Vini Maki M.D., Ph.D. [address] [place] [address] [phone] 06/11/2022 Ancillary Procedure Ophthalmology Chas Shin M.D. [address] [place] [address] [phone] 06/11/2022 Ancillary Procedure Ophthalmology Chas Shin M.D. [address] [place] [phone] 06/11/2022 Office Visit Ophthalmology Chas Shin M.D. [address] [place] [phone] documented as of this encounter Procedures Procedure Name Priority Date/Time Associated Comments Diagnosis OPHTHALMOLOGY IMAGE Routine 03/25/2022 11:25 Resu lts for this EXAM AM CDT procedure are i n the results section. documented in this encounter Results Optical Coherence Tomography (OCT)-Ophthalmology Image Exam (03/25/2022 11:25 AM CDT) Specimen (Source) Anatomical Collection Method [...]
--- OUTSIDE RECORDS SUMMARY | 2022-04-10 09:38 | XMS_ITS | Encounter Summary ---
:1970 Author Organization [facility] Address [address] [place] [address] Care Team Providers Name Role Phone Unavailable Primary Care Provider Unavailable Reason for Visit Radiation Therapy (Routine) - Closed Specialty Diagnoses / Procedures Referred By Contact Refer red To Contact Diagnoses Malignant Neoplasm Of Brain (HCC) Stephanie Gleason M.D. [facility] Radiation Oncology Procedures Prior Auth Rad Tx [place] IMRT COMPLEX [address] [place] [address] [address] [facility] [place] [address] Referral ID Status Reason Start Date Expiration Date Visits Requ ested Visits Authorized [id number] Closed 01/31/2022 12/31/2022 30 30 Encounter Details Date Type Department Care Team Description 03/05/2022 Hospital Encounter Department of Radiation Jacquelyn Gleason I., Oncology in [place] [address] [facility] [address] [place] [phone] Social History Tobacco Use Types Packs/Day Years [...] or relatives? How often do you attend sabianism or More than 4 times per year 01/07/2022 protestant services? Do you belong to any clubs or No 01/07/2022 organizations such as sabianism groups, unions, fraternal or athletic groups, or [...] have completed or the highest Maulik, MEd, SPLICING SUPERVISOR, 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 Sex [...] Telemedicine Clinical Genomics Sanya Mehta M.D. 200 [place] [phone] 05/06/2022 Clinical Communication Admitting/Central Scheduling 05/09/2022 Office Visit Oncology Farzana Allen M.D. 200 [place] [phone] 05/17/2022 Clinical Communication Admitting/Central Scheduling 05/21/2022 Lab Laboratory Medicine Vini Maki M.D., Ph.D. [address] [place] [phone] 05/21/2022 Appointment Radiology Vini Maki M.D., Ph.D. [address] [place] [phone] 05/21/2022 Office Visit Oncology Vini Maki M.D., Ph.D. [address] [place] [phone] 06/11/2022 Ancillary Procedure Ophthalmology Chas Shin M.D. [address] [place] [phone] 06/11/2022 Ancillary Procedure Ophthalmology Chas Shin M.D. [address] [place] [address] [phone] 06/11/2022 Office Visit Ophthalmology Chas Shin M.D. [address] [place] [phone] documented as of this encounter Visit Diagnoses Not on filedocumented in this encounter
--- OUTSIDE RECORDS SUMMARY | 2022-04-10 09:39 | XMS_ITS | Encounter Summary ---
:1970 Author Organization [facility] Address [address] [place] [address] Care Team Providers Name Role Phone Unavailable Primary Care Provider Unavailable Reason for Visit Reason Comments Med Refill Encounter Details Date Type Department Care Team Description 02/26/2022 Clinical Communication Department of Oncology Jono Flanagan, Med Refill in [facility] R.N. 200 [facility] [phone] [place], [place] (Work) [phone] Social History Tobacco Use Types Packs/Day Years [...] have completed or the highest Maulik, MEd, MULTIPLE TUBE WINDING MACHINE OPERATOR, 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 [...] Telemedicine Clinical Genomics Sanya Mehta M.D. [address] [place] [phone] 05/06/2022 Clinical Communication Admitting/Central Scheduling 05/09/2022 Office Visit Oncology Farzana Allen M.D. [address] [place] [phone] 05/17/2022 Clinical Communication Admitting/Central Scheduling 05/21/2022 Lab Laboratory Medicine Vini Maki M.D., Ph.D. [address] [place] [phone] 05/21/2022 Appointment Radiology Vini Maki M.D., Ph.D. [address] [place] [address] [phone] 05/21/2022 Office Visit Oncology Vini Maki M.D., Ph.D. [address] [place] [phone] 06/11/2022 Ancillary Procedure Ophthalmology Chas Shin M.D. [address] [place] [address] [phone] 06/11/2022 Ancillary Procedure Ophthalmology Chas Shin M.D. [address] [place] [phone] 06/11/2022 Office Visit Ophthalmology Chas Shin M.D. [address] [place] [phone] documented as of this encounter Visit Diagnoses Not on filedocumented in this encounter
--- OUTSIDE RECORDS SUMMARY | 2022-04-10 09:39 | XMS_ITS | Encounter Summary ---
:1970 Author Organization [facility] Address [address] [place] [address] Care Team Providers Name Role Phone Unavailable Primary Care Provider Unavailable Reason for Visit Radiation Therapy (Routine) - Closed Specialty Diagnoses / Procedures Referred By Contact Refer red To Contact Diagnoses Malignant Neoplasm Of Brain (HCC) Stephanie Gleason M.D. [facility] Radiation Oncology Procedures Prior Auth Rad Tx [place] IMRT COMPLEX [address] [place] [address] [address] [facility] [place] [address] Referral ID Status Reason Start Date Expiration Date Visits Requ ested Visits Authorized [id number] Closed 01/31/2022 12/31/2022 30 30 Encounter Details Date Type Department Care Team Description 02/27/2022 Hospital Encounter Department of Radiation Jacquelyn Gleason I., Oncology in [place] [address] [facility] [address] [place] [phone] Social History Tobacco Use Types Packs/Day Years [...] More than 4 times per year 01/07/2022 latter-day services? Do you belong to any clubs [...] have completed or the highest Maulik, MEd, BOILER SHOP SUPERVISOR, 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 Sex [...] 6 (six) hours as needed for pain. prochlorperazine Take 1 tablet (10 mg 30 [...] before Temozolomide on Days 1 to 42. gabapentin (NEURONTIN) Take 2 capsules (200 12 capsule 0 02/28/2022 100 mg capsule mg total) by mouth at bedtime for 3 days, THEN 1 capsule (100 mg total) at bedtime for 6 days. levETIRAcetam (KEPPRA) Take 1 tablet (1,000 28 [...] Take 1 capsule (20 42 capsule 0 06/09 /2022 02/28/2022 20 mg mg total) by mouth capsuleIndications: [...] Telemedicine Clinical Genomics Sanya Mehta M.D. [address] [place] [phone] 05/06/2022 Clinical Communication Admitting/Central Scheduling 05/09/2022 Office Visit Oncology Farzana Allen M.D. [address] [place] [phone] 05/17/2022 Clinical Communication Admitting/Central Scheduling 05/21/2022 Lab Laboratory Medicine Vini Maki M.D., Ph.D. [address] [place] [phone] 05/21/2022 Appointment Radiology Vini Maki M.D., Ph.D. [address] [place] [phone] 05/21/2022 Office Visit Oncology Vini Maki M.D., Ph.D. [address] [place] [phone] 06/11/2022 Ancillary Procedure Ophthalmology Chas Shin M.D. [address] [place] [address] [phone] 06/11/2022 Ancillary Procedure Ophthalmology Chas Sihn M.D. [address] [place] [phone] 06/11/2022 Office Visit Ophthalmology Chas Shin M.D. [address] [place] [address] [phone] documented as of this encounter Visit Diagnoses Not on filedocumented in this encounter
--- OUTSIDE RECORDS SUMMARY | 2022-04-10 09:39 | XMS_ITS | Encounter Summary ---
:1970 Author Organization [facility] Address [address] [place] [address] Care Team Providers Name Role Phone Unavailable Primary Care Provider Unavailable Reason for Referral Outpatient (Routine) - Closed Specialty Diagnoses / Procedures Referred By Contact Refer red To Contact Social Work Diagnoses Malignant Neoplasm Of Brain (HCC) Cliff Sumner M.D., [facility] M.[facility] [address] [place] [address] Referral ID Status Reason Start Date Expiration Date Visits Requ ested Visits Authorized [id number] Closed 01/01/2022 01/01/2023 1 1 Scheduling Instructions Phone is okay. Please contact patient fo r preference. Reason for Visit Outpatient (Routine) - Closed Specialty Diagnoses / Procedures Referred By Contact Refer red To Contact Social Work Diagnoses Malignant Neoplasm Of Brain (HCC) Cliff Sumner M.D., [facility] [address] [place] [address] Referral ID Status Reason Start Date Expiration Date Visits Requ ested Visits Authorized [id number] Closed 01/01/2022 01/01/2023 1 1 Encounter Details Date Type Department Care Team Description 03/04/2022 Hospital Encounter Department of Cliff Sumner M.D., M.S. [address] [place] [phone] Malignant Neoplasm Radiation Oncology Yomaira Ibarra L.G.S.W. Of Brain (HCC) in [place], [place] [address] [place] [address] Social History Tobacco Use Types Packs/Day Years [...] have completed or the highest Maulik, MEd, CRIMINAL JUSTICE TEACHER, 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 Sex [...] 1 tablet (8 mg 30 tablet 3 0703/202203/01/2023 mg tabletIndications: total) by mouth Malignant Neoplasm [...] Take 1 capsule (140 14 capsule 0 07/02/202204/11/2022 140 mg mg total) by mouth capsuleIndications: [...] a day. documented as of this encounter Consult Notes Yomaira Ibarra L.G.S.W. - 03/04/2022 1:30 PM CDT Psychosocial Assessment SUBJECTIVE DEMOGRAPHIC INFORMATION Referral by: Dr. Cliff Sumner Person(s) present during interview: Ms. Richardson and her sister Primary care clinic and provider: No primary care provider on file. Primary Language: Moldovan REASON FOR CONSULT Initial social work consult [...] ultrasound.; Surgeon: Charles Ivey M.D., Ph.D.; Location: [facility] OR ??? CRANIOTOMY FOR TUMOR Left 12/05/2021 ??? TONSILLECTOMY SOCIAL HISTORY Marital Status / Family / Household Status: Support Systems: boyfriend, mother, sister, daughter and son Primary caregiver: Mother, boyfriend We have received permission to contact them. Spirituality / Restorationism / Culture: No adventism affiliation Employment: Ms. Richardson works as a [...] with tasks appropriate to the patient's age/development. 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 Richardson met with this social media designer today for an initial social work consult and psychosocialassessment. She was open and forthright in sharing her overall life context and current experience with radiation therapy. She currently resides outside of [place]. She states she is well supported (with family members taking turns being present even though only son who works night hours lives nearby), is feeling as well as possible through her treatment, but she does express concerns regarding finances and possible transportation if her family is absent in the future. Ms. Richardson notes that she has secured MA and is connected with a critical access hospital social media designer. She was receptive to the packet of inf ormation offered and intends to review the materials. [...] Foundation, [employer], National Brain Tumor Society, as well as two vision loss resources (per request of patient) that may be usefulwith providing adaptive equipment if that may be needed in the future. Encouragement given to remainconnected with county social media designer regarding MA status and transportation coverage. Ms. [...] Clinical Genomics Sanya Mehta M.D. [address] [place] [phone] 05/06/2022 Clinical Communication Admitting/Central Scheduling 05/09/2022 Office Visit Oncology Farzana Allen M.D. [address] [place] [phone] 05/17/2022 Clinical Communication Admitting/Central Scheduling 05/21/2022 Lab Laboratory Medicine Vini Maki M.D., Ph.D. [address] [place] [phone] 05/21/2022 Appointment Radiology Vini Maki M.D., Ph.D. [address] [place] [phone] 05/21/2022 Office Visit Oncology Vini Maki M.D., Ph.D. [address] [place] [phone] 06/11/2022 Ancillary Procedure Ophthalmology Chas Shin M.D. [address] [place] [phone] 06/11/2022 Ancillary Procedure Ophthalmology Chas Shin M.D. [address] [place] [phone] 06/11/2022 Office Visit Ophthalmology Chas Shin M.D. [address] [place] [phone] Scheduled Referrals Name Type Priority Associated Order Schedule Diagnoses Social Work - Outpatient Referral Routine Malignant Neoplasm O nce for 1 General consult Of Brain (HCC) Occurrence s starting (clinic) 03/04/2022 unti l 03/04/2022 documented as of this encounter Visit Diagnoses Diagnosis Malignant Neoplasm Of Brain (HCC) documented in this encounter
--- OUTSIDE RECORDS SUMMARY | 2022-04-10 09:39 | XMS_ITS | Encounter Summary ---
:1970 Author Organization [facility] Address [address] [place] [address] Care Team Providers Name Role Phone Unavailable Primary Care Provider Unavailable Reason for Visit Radiation Therapy (Routine) - Closed Specialty Diagnoses / Procedures Referred By Contact Refer red To Contact Diagnoses Malignant Neoplasm Of Brain (HCC) Stephanie Gleason M.D. [facility] Radiation Oncology Procedures Prior Auth Rad Tx [place] IMRT COMPLEX [address] [place] [address] [address] [facility] [place] [address] Referral ID Status Reason Start Date Expiration Date Visits Requ ested Visits Authorized [id number] Closed 01/31/2022 12/31/2022 30 30 Encounter Details Date Type Department Care Team Description 02/28/2022 Hospital Encounter Department of Radiation Jacquelyn Gleason I., [place]cology [place] [address] [facility] [address] [place] [phone] [phone] Social History Tobacco Use Types Packs/Day Years [...] or relatives? How often do you attend mormonism or More than 4 times per year 01/07/2022 roman catholic services? Do you belong to any clubs or No 01/07/2022 organizations such as mormonism groups, unions, fraternal or athletic groups, or [...] have completed or the highest Maulik, MEd, PARENT COACH, 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 Sex [...] 1 tablet (8 mg 30 tablet 3 0 02/202203/01/2022 mg tabletIndications: total) by mouth Malignant Neoplasm Of every 8 (eight) Brain (HCC) hours as needed for nausea or vomiting. documented as of this encounter Plan of Treatment Upcoming Encounters Date Type Specialty Care Team Description 05/03/2022 Telemedicine Clinical Genomics Sanya Mehta M.D. [address] [place] [phone] 05/06/2022 Clinical Communication Admitting/Central Scheduling 05/09/2022 Office Visit Oncology Farzana Allen M.D. [address] [place] [phone] 05/17/2022 Clinical Communication Admitting/Central Scheduling 05/21/2022 Lab Laboratory Medicine Vini Maki M.D., Ph.D. [address] [place] [phone] 05/21/2022 Appointment Radiology Vini Maki M.D., Ph.D. [address] [place] [phone] 05/21/2022 Office Visit Oncology Vini Maki M.D., Ph.D. [address] [place] [phone] 06/11/2022 Ancillary Procedure Ophthalmology Chas Shin M.D. [address] [place] [phone] 06/11/2022 Ancillary Procedure Ophthalmology Chas Shin M.D. [address] [place] [phone] 06/11/2022 Office Visit Ophthalmology Chas Shin M.D. [address] [place] [phone] documented as of this encounter Visit Diagnoses Not on filedocumented in this encounter
--- OUTSIDE RECORDS SUMMARY | 2022-04-10 09:39 | XMS_ITS | Encounter Summary ---
:1970 Author Organization [facility] Address [address] [place] [address] Care Team Providers Name Role Phone Unavailable Primary Care Provider Unavailable Reason for Visit Radiation Therapy (Routine) - Closed Specialty Diagnoses / Procedures Referred By Contact Refer red To Contact Diagnoses Malignant Neoplasm Of Brain (HCC) Stephanie Gleason M.D. [facility] Radiation Oncology Procedures Prior Auth Rad Tx [place] IMRT COMPLEX [address] [place] [address] [address] [facility] [place] [address] Referral ID Status Reason Start Date Expiration Date Visits Requ ested Visits Authorized [id number] Closed 01/31/2022 12/31/2022 30 30 Encounter Details Date Type Department Care Team Description 02/22/2022 Hospital Encounter Department of Radiation Jacquelyn Gleason I., [place]cology [place] [address] [facility] [address] [place] [phone] Social History Tobacco Use Types Packs/Day Years [...] have completed or the highest Maulik, MEd, DIGITAL ADVISOR, 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 Sex Assigned [...] Telemedicine Clinical Genomics Sanya Mehta M.D. [address] [place] [phone] 05/06/2022 Clinical Communication Admitting/Central Scheduling 05/09/2022 Office Visit Oncology Farzana Allen M.D. [address] [place] [phone] 05/17/2022 Clinical Communication Admitting/Central Scheduling 05/21/2022 Lab Laboratory Medicine Vini Maki M.D., Ph.D. [address] [place] [phone] 05/21/2022 Appointment Radiology Vini Maki M.D., Ph.D. [address] [place] [phone] 05/21/2022 Office Visit Oncology Vini Maki M.D., Ph.D. [address] [place] [phone] 06/11/2022 Ancillary Procedure Ophthalmology Chas Shin M.D. [address] [place] [phone] 06/11/2022 Ancillary Procedure Ophthalmology Chas Shin M.D. [address] [place] [phone] 06/11/2022 Office Visit Ophthalmology Chas Shin M.D. [address] [place] [phone] documented as of this encounter Visit Diagnoses Not on filedocumented in this encounter
--- OUTSIDE RECORDS SUMMARY | 2022-04-10 09:39 | XMS_ITS | Encounter Summary ---
:1970 Author Organization [facility] Address [address] [place] [address] Care Team Providers Name Role Phone Unavailable Primary Care Provider Unavailable Encounter Details Date Type Department Care Team Description 02/28/2022 Specialty Pharmacy [facility] Carmen Black, Malignant Neoplasm [address] Pharm.D., R.P h. Of Brain (HCC) 200 [facility] (Primary Dx) [place] [address] [phone] Social History Tobacco Use Types Packs/Day Years [...] have completed or the highest Maulik, MEd, CIVIL CADD TECHNICIAN, 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 Sex Assigned [...] greater. Avoid the use of aspirin or NSAIDsparticularly if low platelets. Keep lab appointments. Planned rest times and exercise may help to combat fatigue. ??? Interactions (drug/food interactions): Drug interactions referenced in #2 below. Avoid live vaccines. Food: Take on an empty stomach and/or at bedtime to reduce the chance of nausea/vomiting. ??? Contraindications/ considerations: This medication may cause harm. Women who can become should use effective contraception while on this medication and for 6 months after stopping. Men with a partner that may become should use effective contraception while on this medication and for 3 months after the last temozolomide dose. May impair male fertility. ??? Educational resource/decision support tools: Printed medication materials included with the prescription. Also see [email or web address]. Patient/caregiver counseling was abreviated because the patient [...] sensitivity, medication and health history considered at savings counselor (renal function if available). To optimize [...] apparent. Patient is eligible for service through [facility]. 2. Potential drug-drug interactions No [...] The patient has decided to use the [facility]. This patient meets the definition of *HIGH RISK- required BSA dose review and required counseling for any temozolomide dose changes*, by MCSP definition and has been flagged as such in the dispensing system. Follow-up: 4 week(s) Carmen Black PharmVarun., R.Ph. documented in this encounter Plan of Treatment Upcoming Encounters Date Type Specialty Care Team Description 05/03/2022 Telemedicine Clinical Genomics Sanya Mehta M.D. [address] [place] [phone] 05/06/2022 Clinical Communication Admitting/Central Scheduling 05/09/2022 Office Visit Oncology Farzana Allen M.D. [address] [place] [phone] 05/17/2022 Clinical Communication Admitting/Central Scheduling 05/21/2022 Lab Laboratory Medicine Vini Maki M.D., Ph.D. [address] [place] [phone] 05/21/2022 Appointment Radiology Vini Maki M.D., Ph.D. [address] [place] [phone] 05/21/2022 Office Visit Oncology Vini Maki M.D., Ph.D. [address] [place] [phone] 06/11/2022 Ancillary Procedure Ophthalmology Chas Shin M.D. [address] [place] [phone] 06/11/2022 Ancillary Procedure Ophthalmology Chas Shin M.D. [address] [place] [phone] 06/11/2022 Office Visit Ophthalmology Chas Shin M.D. [address] [place] [phone] documented as of this encounter Visit Diagnoses Diagnosis Malignant Neoplasm Of Brain (HCC) - Prim uyen documented in this encounter
--- OUTSIDE RECORDS SUMMARY | 2022-04-10 09:39 | XMS_ITS | Encounter Summary ---
:1970 Author Organization [facility] Address [address] [place] [address] Care Team Providers Name Role Phone Unavailable Primary Care Provider Unavailable Reason for Visit Reason Comments 02/26/22 labs Encounter Details Date Type Department Care Team Description 02/26/2022 Clinical Communication Department of Oncology Jono Flanagan, 02/26/22 labs in [facility] quotation checker R.NSanjuanita [address] [facility] [phone] [place], [place] (Work) [phone] Social History Tobacco Use Types Packs/Day Years [...] completed or the highest Maulik, MEd, MANAGER ENGINE, 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 Sex Assigned at Date Recorded Female 01/07/2022 11:11 AM CDT documented as of this encounter Miscellaneous Notes Telephone Encounter - Trupti Pearson - 03/01/2022 10:16 AM CDT Images from the original note were not included. Telephone Encounter - Olivia Koenig D.N.P., M.A., R.N., HNB-BC - 02/28/2022 10:48 AM CDT I called [facility] to help expedite the process, asked them to call us if there were any additional questions Addendum Note - Dodie Aragon P.A.-C., M.S. - 02/28/2022 10:04 AM CDT Addended by: DODIE ARAGON on: 02/28/2022 10:04 AM Modules accepted: Orders Telephone Encounter - Trupti Pearson - 02/28/2022 8:39 AM CDT Unfortunately [facility] can not call the insurance company. I can provide the patient with the [facility] office number. They would best able to [...] Libby provided me with patient's medicaid number [id number] were given this number today but patient does not have any insurance cards yet. I let Libby know that I would pass along this information and see if we could find out patient's benefits to senda new rx to a different specialty pharmacy but I couldn't make any promises. I also let her know that I didn't think that patient would be able to get her medication by tomorrow since it is so late in the day and I also believed that the [...] Mia's insurance changed on February 22, and [facility] did not send the refill of the medication prior to the change, so there is no an issue with getting the refill. Libby was understandably upset, I listened to her concerns a nd voiced understanding. I offered to reach out to our criminal justice social worker in the hopes that she would have [...] Please review and call Libby. Thank you, Hannah [facility]ST [facility] POD 1 Telephone Encounter - Amelie Wiley - 02/27/2022 8:56 AM CDT Labs drawn on 02/26/22 are here. Copy is in document viewer. This fax should be viewable in a few minutes. Thank you, Kala RSBaljit [facility] AA POD 1 Telephone Encounter - Michael Melton - 02/26/2022 2:22 PM CDT Do we have a valid auth to speak with caller? yes, Libby Murdock, mother Reason for call: Patient's mother Libby called in regards to multiple issues. First, she stated that the patient needed a refill of Temodar and stated that they now have medicaid and so it should be covered. See med refill request in separate 02/26/22 encounter. Caller stated that the care team would need to review the patient's 02/26/22 labs to determine what dose should be prescribed. Second, the callerstated that they were applying for social security in [place] and filled out form SSA [id number]. She stated that the social security administration needs medical records or proof of illness but did not provide any contact information or further details. Third, caller stated that she would like someone ont care team to reach out to the patient to discuss options for wigs. Fourth, the caller stated that the patient would like a handicap parking permit but was wondering if they should have our office complete it or if it could be done at the local radiation facility. Fifth, she asked why she is unableto see patient's lab results drawn locally in patient portal. Caller stated that other than to discuss wigs, it would be preferable to call her (Libby, mother, auth on file). I have listed numbers for both below. Libby, mother: [phone] Mia, patient: [phone] Thank you, Michael Rst [facility] AA Pod 1 documented in this encounter Plan of Treatment Upcoming Encounters Date Type Specialty Care Team Description 05/03/2022 Telemedicine Clinical Genomics Sanya Mehta M.D. [address] [place] [phone] 05/06/2022 Clinical Communication Admitting/Central Scheduling 05/09/2022 Office Visit Oncology Farzana Allen M.D. [address] [place] [phone] 05/17/2022 Clinical Communication Admitting/Central Scheduling 05/21/2022 Lab Laboratory Medicine Vini Maki M.D., Ph.D. [address] [place] [phone] 05/21/2022 Appointment Radiology Vini Maki M.D., Ph.D. [address] [place] [phone] 05/21/2022 Office Visit Oncology Vini Maki M.D., Ph.D. [address] [place] [phone] 06/11/2022 Ancillary Procedure Ophthalmology Chas Shin M.D. [address] [place] [phone] 06/11/2022 Ancillary Procedure Ophthalmology Chsa Shin M.D. [address] [place] [phone] 06/11/2022 Office Visit Ophthalmology Chas Shin M.D. [address] [place] [address] [phone] documented as of this encounter Visit Diagnoses Diagnosis Malignant Neoplasm Of Brain (HCC) documented in this encounter
--- OUTSIDE RECORDS SUMMARY | 2022-04-10 09:39 | XMS_ITS | Encounter Summary ---
:1970 Author Organization [facility] Address [address] [place] [address] Care Team Providers Name Role Phone Unavailable Primary Care Provider Unavailable Reason for Visit Reason Comments Genetic Testing Results Encounter Details Date Type Department Care Team Description 02/27/2022 Documentation Department of Medical Sejal Resendiz Genetic Testing Genetics in [place], [place].S., CGC Results [place], [place] [address] [facility] [address] [place] [phone] Social History Tobacco Use Types Packs/Day Years [...] have completed or the highest Maulik, MEd, INSTRUCTIONAL COORDINATOR, 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 Sex Assigned at Date Recorded Female 01/07/2022 11:11 AM CDT documented as of this encounter Progress Notes Sejal Resendiz M.S., [facility] - 02/27/2022 1:42 PM CDT Images from [...] Multi-Cancer + Nervous system/brain cancer panel from [facility]. IMPRESSION/REPORT/PLAN RESULTS I spoke with Ms. Cedillo today regarding her genetic test results. 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 This variant had been previously identified in [...] consideration of tomosynthesis are recommended beginning at age40. This may be modified based on family [...] recommendations, such as those made by the [employer], do remain appropriate. These screening recommendations may change if there are changes to the patient's personal and/or family history. Medical management guidelines for CHEK2 will likely change release manager time. We recommend that patients contact [...] recommendations, such as those made by the Indian CancerSociety, do remain appropriate. RISKS TO RELATIVES [...] area, family members can visit the website [email or web address]. We will also provide a family letter in this regard. RESOURCES The organization [employer] (Facing Our Risk for Cancer Empowered) has the mission of improving the livesof individuals and families affected by hereditary cancer. The website for this organization is: www.[email or web address].org. PLAN Ms. Cedillo will be referred to [...] patient's questions were answered. . Sejal Resendiz M.S. [facility] [place] - 02/27/2022 1:42 PM CDT I attempted to reach by phone today to discuss her genetic testing results but reached her voicemail. A generic message was left requesting she call me back at her earliest convenience at [phone]. I will attempt to reach her two more times in the coming days. As always, she is welcome to contact me with any questions in the future. documented in this encounter Plan of Treatment Upcoming Encounters Date Type Specialty Care Team Description 05/03/2022 Telemedicine Clinical Genomics Sanya Mehta M.D. [address] [place] [phone] 05/06/2022 Clinical Communication Admitting/Central Scheduling 05/09/2022 Office Visit Oncology Farzana Allen M.D. [address] [place] [phone] 05/17/2022 Clinical Communication Admitting/Central Scheduling 05/21/2022 Lab Laboratory Medicine Vini Maki M.D., Ph.D. [address] [place] [phone] 05/21/2022 Appointment Radiology Vini Maki M.D., Ph.D. [address] [place] [phone] 05/21/2022 Office Visit Oncology Vini Maki M.D., Ph.D. [address] [place] [phone] 06/11/2022 Ancillary Procedure Ophthalmology Chas Shin M.D. [address] [place] [address] [phone] 06/11/2022 Ancillary Procedure Ophthalmology Chas Shin M.D. [address] [place] [address] [phone] 06/11/2022 Office Visit Ophthalmology Chas Shin M.D. [address] [place] [address] [phone] documented as of this encounter Visit Diagnoses Not on filedocumented in this encounter
--- OUTSIDE RECORDS SUMMARY | 2022-04-10 09:39 | XMS_ITS | Encounter Summary ---
:1970 Author Organization [facility] Address [address] [place] [address] Care Team Providers Name Role Phone Unavailable Primary Care Provider Unavailable Reason for Referral Radiation Therapy (Routine) - Authorized Specialty Diagnoses / Procedures Referred By Contact Refer red To Contact Diagnoses Malignant Neoplasm Of Brain (HCC) Stephanie Gleason M.D. [facility] Radiation Oncology Procedures Management Visit 200 [address] [facility] [place], [place] [phone] [place] [address] Referral ID Status Reason Start Date Expiration Date Visits V isits Requested Authorized [id number] Authorized 12/31/2021 12/31/2022 10 10 Reason for Visit Radiation Therapy (Routine) - Authorized Specialty Diagnoses / Procedures Referred By Contact Refer red To Contact Diagnoses Malignant Neoplasm Of Brain (HCC) Stephanie Gleason M.D. [facility] Radiation Oncology Procedures Management Visit [address] [place] [address] [phone] [place] [address] Referral ID Status Reason Start Date Expiration Date Visits V isits Requested Authorized [id number] Authorized 12/31/2021 12/31/2022 10 10 Encounter Details Date Type Department Care Team Description 02/26/2022 Hospital Encounter Department of Stephanie Gleason Neoplasm Radiation Oncology Sebastian Marcelino Of Brain (HCC) in [place], [facility] 1st [place], [place] [address] [facility] [address] [place], [place] [phone] [address] (Work) [phone] Social History Tobacco Use Types Packs/Day Years [...] have completed or the highest Maulik, MEd, PERFORMANCE REPORTER, 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 Sex Assigned [...] (cGy) First Treatment Last Treatment Elapsed Days [id number] [id number] 01/31/2022 02/26/2022 Course Summary 01/31/2022 02/26/2022 The patient was seen and examined today with Dr. Gleason. The patient reports that she is doing well overall. She reports a franc amount of nausea for which she has a decreased appetite. She reports her vision to be improved and that she is working with OT, PT and Speech therapy weekly at [facility]. She does state she has noticed some hair loss and thinning on the left side of her head. Headaches are minimal and intermittent in nature. She takes Tylenol on occasion for headaches. She denies fevers, chills, seizures, vomiting, hearing changes or skin changes. Patient is requesting [employer] disability parking pass. She is also requesting information on [employer] resources. She notes improvement in her memory. [...] went in for lab work today at [facility]. Patient states that [facility] was planning on faxing results of today's lab work to Medical Oncology on our [facility]. She is now taking 140 mg of Temodar instead of 160 mg. She is scheduled for brain MR, Medical Oncology and Neurosurgery follow up on April 04, 2022 on on [facility]. We will continue to see patient in weekly management visits throughout her course of radiation therapy. She will contact us with any questions or concerns. We willcontinue with radiation treatment as planned. Signed by: Eileen Hopkins R.N. 02/26/2022 2:15 PM CDT documented in this encounter Plan of Treatment Upcoming Encounters Date Type Specialty Care Team Description 05/03/2022 Telemedicine Clinical Genomics Sanya Mehta M.D. [address] [place] [phone] 05/06/2022 Clinical Communication Admitting/Central Scheduling 05/09/2022 Office Visit Oncology Farzana Allen M.D. [address] [place] [phone] 05/17/2022 Clinical Communication Admitting/Central Scheduling 05/21/2022 Lab Laboratory Medicine Vini Maki M.D., Ph.D. [address] [place] [phone] 05/21/2022 Appointment Radiology Vini Maki M.D., Ph.D. [address] [place] [address] [phone] 05/21/2022 Office Visit Oncology Vini Maki M.D., Ph.D. [address] [place] [phone] 06/11/2022 Ancillary Procedure Ophthalmology Chas Shin M.D. [address] [place] [phone] 06/11/2022 Ancillary Procedure Ophthalmology Chas Shin M.D. [address] [place] [phone] 06/11/2022 Office Visit Ophthalmology Chas Shin M.D. [address] [place] [phone] Scheduled Orders Name Type Priority Associated Diagnoses Order S chedule Management Visit Radiation Oncology Routine Malignant Neoplasm Once for 1 Of Brain (HCC) Occurrences s tarting 02/26/2022 unti l 02/26/2022 documented as of this encounter Visit Diagnoses Diagnosis Malignant Neoplasm Of Brain (HCC) documented in this encounter
--- OUTSIDE RECORDS SUMMARY | 2022-04-10 09:39 | XMS_ITS | Encounter Summary ---
:1970 Author Organization [facility] Address [address] [place] [address] Care Team Providers Name Role Phone Unavailable Primary Care Provider Unavailable Reason for Referral Outpatient (Routine) - Closed Specialty Diagnoses / Procedures Referred By Contact Refer red To Contact Endocrinology Diagnoses Hyperthyroidism Subclinical Farzana Allen M.D. [facility] [address] [place] [phone] Referral ID Status Reason Start Date Expiration Date Visits Requ ested Visits Authorized [id number] Closed 02/27/2022 02/27/2023 1 1 Encounter Details Date Type Department Care Team Description 02/27/2022 Orders Only Integrative Medicine Farzana Allen Hyper thyroidism and Health in [place] Subclinical (Primary Dx) [address] 200 [place] [phone] Social History Tobacco Use Types Packs/Day Years [...] 01/07/2022 organizations such as hindu groups, unions, fraternal or athletic groups, or [...] have completed or the highest Maulik, MEd, TIRE REPAIRER, 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 Sex Assigned at Date Recorded Female 01/07/2022 11:11 AM CDT documented as of this encounter Plan of Treatment Upcoming Encounters Date Type Specialty Care Team Description 05/03/2022 Telemedicine Clinical Genomics Sanya Mehta M.D. 200 [place] [address] 05/06/2022 Clinical Communication Admitting/Central Scheduling 05/09/2022 Office Visit Oncology Farzana Allen M.D. 200 [place] [address] 05/17/2022 Clinical Communication Admitting/Central Scheduling 05/21/2022 Lab Laboratory Medicine Vini Maki M.D., Ph.D. [address] [place] [phone] 05/21/2022 Appointment Radiology Vini Maki M.D., Ph.D. [address] [place] [phone] 05/21/2022 Office Visit Oncology Vini Maki M.D., Ph.D. [address] [place] [phone] 06/11/2022 Ancillary Procedure Ophthalmology Chas Shin M.D. [address] [place] [phone] 06/11/2022 Ancillary Procedure Ophthalmology Chas Shin M.D. [address] [place] [phone] 06/11/2022 Office Visit Ophthalmology Chas Shin M.D. [address] [place] [phone] Scheduled Referrals Name Type Priority Associated Diagnoses Order S [facility] Endocrinology - Outpatient Routine Hyperthyroidism Expected: Thyroid disorders Referral Subclinical 02/27/2022 consult (clinic) (Approximat e), Expires: 05/30/2023 documented as of this encounter Visit Diagnoses Diagnosis Hyperthyroidism Subclinical - Primary documented in this encounter
--- OUTSIDE RECORDS SUMMARY | 2022-04-10 09:39 | XMS_ITS | Encounter Summary ---
:1970 Author Organization [facility] Address [address] [place] [address] Care Team Providers Name Role Phone Unavailable Primary Care Provider Unavailable Reason for Referral Radiation Therapy (Routine) - Authorized Specialty Diagnoses / Procedures Referred By Contact Refer red To Contact Diagnoses Malignant Neoplasm Of Brain (HCC) Stephanie Gleason M.D. [facility] Radiation Oncology Procedures Management Visit 200 [address] [facility] [place], [place] [phone] [place] [address] Referral ID Status Reason Start Date Expiration Date Visits V isits Requested Authorized [id number] Authorized 12/31/2021 12/31/2022 10 10 Reason for Visit Radiation Therapy (Routine) - Authorized Specialty Diagnoses / Procedures Referred By Contact Refer red To Contact Diagnoses Malignant Neoplasm Of Brain (HCC) Stephanie Gleason M.D. [facility] Radiation Oncology Procedures Management Visit [address] [place] [address] [phone] [place] [address] Referral ID Status Reason Start Date Expiration Date Visits V isits Requested Authorized [id number] Authorized 12/31/2021 12/31/2022 10 10 Encounter Details Date Type Department Care Team Description 02/21/2022 Hospital Encounter Department of Volodymyr Ynug Neoplasm Radiation Oncology Sebastian De La Cruz Of Brain (HCC) in [place], [facility] 1st [place], [place] [address] [facility] [address] [place], [place] [phone] (Work) [phone] Social History Tobacco Use Types Packs/Day Years [...] More than 4 times per year 01/07/2022 orthodoxy services? Do you belong to any clubs [...] have completed or the highest Maulik, MEd, STOCK CHECKER, 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 Sex Assigned [...] Brain (HCC) SUPERVISED BY: Volodymyr Yung M.D. ([id number]) HISTORY OF PRESENT ILLNESS Mia Richardson is a 51 y.o. 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 She is now undergoing intensity modulated radiotherapy along with Temodar. Temodar was held for 4 days due to lab counts and restarted on 02/18/2022 joselin lower dose of 140 mg. Treatment Course: 1xBrain Plan ID Fractions Dose / Fraction (cGy) Dose Treated (cGy) Dose Planned (cGy) First Treatment Last Treatment Elapsed Days [id number] 200 [id number] 6000 01/31/2022 02/21/2022 Course Summary 01/31/2022 02/21/2022 21 The patient was seen and examined today with Dr. Gleason. The patient reports that she is doing well overall. She has tapered off Gabapentin. She continues with Dexamethasone 4 mg daily. She reports a franc amount of nausea for which she has a decreased appetite. She states she is taking her antiemetic 1-3 tablets daily and using a QueaseEASE. She continuesto have 1 hot flash at night. She reports her vision to be improved and that she is working with OT at [facility]. She does state she has noticed increased hair loss and thinning on the left side of her head. She reports that she has been in discussion with her oncology team and is concerned about her most recent TSH level. She denies headaches, fevers, chills, seizures, hearing changes or sk in changes. PATIENT REPORTED SYMPTOM SCREEN FATIGUE (Scale: [...] of Nausea and Vomiting pamphlet was provided [id number]. We will continue to monitor symptoms. Patient reassured that our Oncology colleges reports [...] portions of the service. I reviewed the documentation of Qi Herbert R.N. and agree with the findings and plan. The patient appears well on exam. She does have some mild erythema of the scalp as well as some hair loss in the treatment garcia on the left scalp. Her oral cavity is clear with no signs of thrush. She did have quite a low TSH. Ourcolleagues in Medical Oncology are connecting with Integrative Medicine for further investigation inthis regard. I would suggest that a thyroid function cascade may be the next step. It is not clear to me that she would have hypopituitarism from her radiation treatment our garcia are somewhat distantfrom the pituitary gland. The patient will continue with treatment as planned. Signed by: Volodymyr Yung M.D. 02/21/2022 5:59 PM CDT [facility] [address] [place] [address] documented in this encounter Plan of Treatment Upcoming Encounters Date Type Specialty Care Team Description 05/03/2022 Telemedicine Clinical Genomics Sanya Mehta M.D. [address] [place] [address] [phone] 05/06/2022 Clinical Communication Admitting/Central Scheduling 05/09/2022 Office Visit Oncology Farzana Allen M.D. [address] [place] [address] [phone] 05/17/2022 Clinical Communication Admitting/Central Scheduling 05/21/2022 Lab Laboratory Medicine Vini Maki M.D., Ph.D. [address] [place] [phone] 05/21/2022 Appointment Radiology Vini Maki M.D., Ph.D. [address] [place] [phone] 05/21/2022 Office Visit Oncology Vini Maki M.D., Ph.D. [address] [place] [phone] 06/11/2022 Ancillary Procedure Ophthalmology Chas Shin M.D. [address] [place] [phone] 06/11/2022 Ancillary Procedure Ophthalmology Chas Shin M.D. [address] [place] [phone] 06/11/2022 Office Visit Ophthalmology Chas Shin M.D. [address] [place] [phone] Scheduled Orders Name Type Priority Associated Diagnoses Order S chedule Management Visit Radiation Oncology Routine Malignant Neoplasm Once for 1 Of Brain (HCC) Occurrences s tarting 02/21/2022 unti l 02/21/2022 documented as of this encounter Visit Diagnoses Diagnosis Malignant Neoplasm Of Brain (HCC) documented in this encounter
--- OUTSIDE RECORDS SUMMARY | 2022-04-10 09:39 | XMS_ITS | Encounter Summary ---
:1970 Author Organization [facility] Address [address] [place] [address] Care Team Providers Name Role Phone Unavailable Primary Care Provider Unavailable Reason for Referral Outpatient (Routine) - Closed Specialty Diagnoses / Procedures Referred By Contact Refer red To Contact Social Work Diagnoses Malignant Neoplasm Of Brain (HCC) Stephanie Gleason M.D. [facility] [address] [place] [address] [phone] Referral ID Status Reason Start Date Expiration Date Visits Requ ested Visits Authorized [id number] Closed 02/27/2022 02/27/2023 1 1 Scheduling Instructions Schedule with Belia Amezquita tomorrow. Thanks! Encounter Details Date Type Department Care Team Description 02/27/2022 Orders Only Department of Stephanie Gleason Malignant N eoplasm Of Radiation Oncology in [place] Marcelino Brain (HCC) (Primary [place], [facility] a 200 1st [facility] D[facility]) [address] [place] [address] [phone] Social History Tobacco Use Types Packs/Day Years [...] or relatives? How often do you attend faith or More than 4 times per year 01/07/2022 roman catholic services? Do you belong to any clubs or No 01/07/2022 organizations such as faith groups, unions, fraPartSimple or athletic groups, or school groups? How [...] have completed or the highest Maulik, MEd, PREPRESS TECHNICIAN, 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 Sex Assigned at Date Recorded Female 01/07/2022 11:11 AM CDT documented as of this encounter Plan of Treatment Upcoming Encounters Date Type Specialty Care Team Description 05/03/2022 Telemedicine Clinical Genomics Sanya Mehta M.D. 200 [address] [place] [phone] 05/06/2022 Clinical Communication Admitting/Central Scheduling 05/09/2022 Office Visit Oncology Farzana Allen M.D. [address] [place] [phone] 05/17/2022 Clinical Communication Admitting/Central Scheduling 05/21/2022 Lab Laboratory Medicine Vini Maki M.D., Ph.D. [address] [place] [phone] 05/21/2022 Appointment Radiology Vini Maki M.D., Ph.D. [address] [place] [address] [phone] 05/21/2022 Office Visit Oncology Vini Maki M.D., Ph.D. [address] [place] [address] [phone] 06/11/2022 Ancillary Procedure Ophthalmology Chas Shin M.D. [address] [place] [address] [phone] 06/11/2022 Ancillary Procedure Ophthalmology Chas Shin M.D. [address] [place] [phone] 06/11/2022 Office Visit Ophthalmology Chas Shin M.D. [address] [place] [phone] Scheduled Referrals Name Type Priority Associated Diagnoses Order S [employer] - Outpatient Referral Routine Malignant Neoplasm E xpected: General consult Of Brain (HCC) 02/28/2022 (clinic) (Approximate), Expires: 05/30/2023 documented as of this encounter Visit Diagnoses Diagnosis Malignant Neoplasm Of Brain (HCC) - Prim uyen documented in this encounter
--- OUTSIDE RECORDS SUMMARY | 2022-04-10 09:39 | XMS_ITS | Encounter Summary ---
:1970 Author Organization [facility] Address [address] [place] [address] Care Team Providers Name Role Phone Unavailable Primary Care Provider Unavailable Encounter Details Date Type Department Care Team Description 02/22/2022 Orders Only Department of Farzana Allen Astrocytoma (HCC) (Primary Dx); Oncology in [place], [place] [address] [facility] 200 [place] [phone] Social History Tobacco Use Types Packs/Day Years [...] or relatives? How often do you attend scientology or More than 4 times per year 01/07/2022 yazdanism services? Do you belong to any clubs or No 01/07/2022 organizations such as scientology groups, unions, fraternal or athletic groups, or [...] have completed or the highest Maulik, MEd, OLIVE KNOCKER, 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 Sex Assigned at Date Recorded Female 01/07/2022 11:11 AM CDT documented as of this encounter Plan of Treatment Upcoming Encounters Date Type Specialty Care Team Description 05/03/2022 Telemedicine Clinical Genomics Sanya Mehta M.D. [address] [place] [address] [phone] 05/06/2022 Clinical Communication Admitting/Central Scheduling 05/09/2022 Office Visit Oncology Farzana Allen M.D. [address] [place] [phone] 05/17/2022 Clinical Communication Admitting/Central Scheduling 05/21/2022 Lab Laboratory Medicine Vini Maki M.D., Ph.D. [address] [place] [phone] 05/21/2022 Appointment Radiology Vini Maki M.D., Ph.D. [address] [place] [address] [phone] 05/21/2022 Office Visit Oncology Vini Maki M.D., Ph.D. [address] [place] [phone] 06/11/2022 Ancillary Procedure Ophthalmology Chas Shin M.D. [address] [place] [phone] 06/11/2022 Ancillary Procedure Ophthalmology Chas Shin M.D. [address] [place] [address] [phone] 06/11/2022 Office Visit Ophthalmology Chas Shin M.D. [address] [place] [address] [phone] documented as of this encounter Visit Diagnoses Diagnosis Astrocytoma (HCC) - Primary Hyperthyroidism documented in this encounter
--- OUTSIDE RECORDS SUMMARY | 2022-04-10 09:39 | XMS_ITS | Encounter Summary ---
:1970 Author Organization [facility] Address [address] [place] [address] Care Team Providers Name Role Phone Unavailable Primary Care Provider Unavailable Reason for Visit Radiation Therapy (Routine) - Closed Specialty Diagnoses / Procedures Referred By Contact Refer red To Contact Diagnoses Malignant Neoplasm Of Brain (HCC) Stephanie Gleason M.D. [facility] Radiation Oncology Procedures Prior Auth Rad Tx [place] IMRT COMPLEX [address] [place] [phone] 18[address] [facility] [place] [address] Referral ID Status Reason Start Date Expiration Date Visits Requ ested Visits Authorized [id number] Closed 01/31/2022 12/31/2022 30 30 Encounter Details Date Type Department Care Team Description 03/01/2022 Hospital Encounter Department of Radiation Jacquelyn Gleason I., [place]cology in [place] 200 [address] [facility] 1821 [place] [phone] Social History Tobacco Use Types Packs/Day Years [...] or relatives? How often do you attend caodaism or More than 4 times per year 01/07/2022 zoroastrian services? Do you belong to any clubs or No 01/07/2022 organizations such as caodaism groups, unions, fraternal or athletic groups, or [...] have completed or the highest Maulik, MEd, PICKERS MATERIAL HANDLERS, 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 Sex Assigned [...] Telemedicine Clinical Genomics Sanya Mehta M.D. 200 [place] [phone] 05/06/2022 Clinical Communication Admitting/Central Scheduling 05/09/2022 Office Visit Oncology Farzana Allen M.D. 200 [place] [phone] 05/17/2022 Clinical Communication Admitting/Central Scheduling 05/21/2022 Lab Laboratory Medicine Vini Maki M.D., Ph.D. [address] [place] [phone] 05/21/2022 Appointment Radiology Vini Maki M.D., Ph.D. [address] [place] [phone] 05/21/2022 Office Visit Oncology Vini Maki M.D., Ph.D. [address] [place] [phone] 06/11/2022 Ancillary Procedure Ophthalmology Chas Shin M.D. [address] [place] [phone] 06/11/2022 Ancillary Procedure Ophthalmology Chas Shin M.D. [address] [place] [address] [phone] 06/11/2022 Office Visit Ophthalmology Chas Shin M.D. [address] [place] [address] [phone] documented as of this encounter Visit Diagnoses Not on filedocumented in this encounter
--- OUTSIDE RECORDS SUMMARY | 2022-04-10 09:39 | XMS_ITS | Encounter Summary ---
:1970 Author Organization [facility] Address [address] [place] [address] Care Team Providers Name Role Phone Unavailable Primary Care Provider Unavailable Reason for Visit Radiation Therapy (Routine) - Closed Specialty Diagnoses / Procedures Referred By Contact Refer red To Contact Diagnoses Malignant Neoplasm Of Brain (HCC) Stephanie Gleason M.D. [facility] Radiation Oncology Procedures Prior Auth Rad Tx [place] IMRT COMPLEX [address] [place] [phone] [address] [place] [address] Referral ID Status Reason Start Date Expiration Date Visits Requ ested Visits Authorized [id number] Closed 01/31/2022 12/31/2022 30 30 Encounter Details Date Type Department Care Team Description 03/04/2022 Hospital Encounter Department of Radiation Jacquelyn Gleason I., [place]cology [place] 200 [address] [facility] [address] [place] [phone] Social History Tobacco Use Types Packs/Day Years [...] More than 4 times per year 01/07/2022 restorationist services? Do you belong to any clubs [...] have completed or the highest Maulik, MEd, AUTOMOTIVE SERVICE CASHIER, 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 Sex Assigned [...] Telemedicine Clinical Genomics Sanya Mehta M.D. 200 [place] [phone] 05/06/2022 Clinical Communication Admitting/Central Scheduling 05/09/2022 Office Visit Oncology Farzana Allen M.D. 200 [place] [phone] 05/17/2022 Clinical Communication Admitting/Central Scheduling 05/21/2022 Lab Laboratory Medicine Vini Maki M.D., Ph.D. [address] [place] [phone] 05/21/2022 Appointment Radiology Vini Maki M.D., Ph.D. [address] [place] [phone] 05/21/2022 Office Visit Oncology Vini Maki M.D., Ph.D. [address] [place] [phone] 06/11/2022 Ancillary Procedure Ophthalmology Chas Shin M.D. [address] [place] [phone] 06/11/2022 Ancillary Procedure Ophthalmology Chas Shin M.D. [address] [place] [address] [phone] 06/11/2022 Office Visit Ophthalmology Chas Shin M.D. [address] [place] [address] [phone] documented as of this encounter Visit Diagnoses Not on filedocumented in this encounter
--- OUTSIDE RECORDS SUMMARY | 2022-04-10 09:39 | XMS_ITS | Encounter Summary ---
:1970 Author Organization [facility] Address [address] [place] [address] Care Team Providers Name Role Phone Unavailable Primary Care Provider Unavailable Reason for Visit Reason Comments 02/26/22 labs Encounter Details Date Type Department Care Team Description 02/26/2022 Clinical Communication Department of Oncology Jono Flanagan, 02/26/22 labs in [facility] potato picker R.NSanjuanita [address] [facility] [phone] [place], [place] (Work) [phone] Social History Tobacco Use Types Packs/Day Years [...] have completed or the highest Maulik, MEd, DRAW TENDER, 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 Sex Assigned at Date Recorded Female 01/07/2022 11:11 AM CDT documented as of this encounter Miscellaneous Notes Telephone Encounter - Olivia Koenig D.N.P., M.Domingo., R.N., JASON-NOEL - 02/26/2022 1:56 PM CDT Labs Verified Telephone Encounter - Trupti Pearson - 02/26/2022 1:37 PM CDT Labs have been entered and are ready for review. documented in this encounter Plan of Treatment Upcoming Encounters Date Type Specialty Care Team Description 05/03/2022 Telemedicine Clinical Genomics Sanya Mehta M.D. 200 [place] [phone] 05/06/2022 Clinical Communication Admitting/Central Scheduling 05/09/2022 Office Visit Oncology Farzana Allen M.D. [address] [place] [phone] 05/17/2022 Clinical Communication Admitting/Central Scheduling 05/21/2022 Lab Laboratory Medicine Vini Maki M.D., Ph.D. [address] [place] [phone] 05/21/2022 Appointment Radiology Vini Maki M.D., Ph.D. [address] [place] [address] [phone] 05/21/2022 Office Visit Oncology Vini Maki M.D., Ph.D. [address] [place] [phone] 06/11/2022 Ancillary Procedure Ophthalmology Chas Shin M.D. [address] [place] [address] [phone] 06/11/2022 Ancillary Procedure Ophthalmology Chas Shin M.D. [address] [place] [phone] 06/11/2022 Office Visit Ophthalmology Chas Shin M.D. [address] [place] [phone] documented as of this encounter Procedures Procedure [...] (A) 12 - 16 OTHER (SPECIFY IN PETAL CUTTER) EXT Leukocytes 4.3 (A) 4.5 - 11 OTHER (SPECIFY IN PETAL CUTTER) EXT Absolute 2.8 1.7 - 7.0 OTHER Neutrophil (SPECIFY IN Count PETAL CUTTER) EXT Lymphs 1.10 0.9 - 2.90 OTHER Absolute (SPECIFY IN PETAL CUTTER) EXT Platelet 507 (A) 140 - 440 OTHER Count (SPECIFY IN PETAL CUTTER) Specimen (Source) Anatomical Collection Method Collection Time Re ceived Time Location / / Volume Laterality Blood 02/26/2022 11:46 AM CDT Narrative This result has an attachment that is no t available. Historical Provider LAB BLOOD NON ADD-ON Performing Organization Address City/State/ZIP Code Phon e Number OTHER (SPECIFY IN PETAL CUTTER) OTHER (SPECIFY IN PETAL CUTTER) N/A documented in this encounter Visit Diagnoses Not on filedocumented in this encounter
--- OUTSIDE RECORDS SUMMARY | 2022-04-10 09:39 | XMS_ITS | Encounter Summary ---
:1970 Author Organization [facility] Address [address] [place] [address] Care Team Providers Name Role Phone Unavailable Primary Care Provider Unavailable Reason for Referral Outpatient (Routine) - Closed Specialty Diagnoses / Procedures Referred By Contact Refer red To Contact Social Work Diagnoses Malignant Neoplasm Of Brain (HCC) Stephanie Gleason M.D. [address] [phone] Referral ID Status Reason Start Date Expiration Date Visits Requ ested Visits Authorized [id number] Closed 02/27/2022 02/27/2023 1 1 Scheduling Instructions Schedule with Belia Amezquita tomorrow. Thanks! Reason for Visit Outpatient (Routine) - Closed Specialty Diagnoses / Procedures Referred By Contact Refer red To Contact Social Work Diagnoses Malignant Neoplasm Of Brain (HCC) Stephanie Gleason M.D. [address] [phone] Referral ID Status Reason Start Date Expiration Date Visits Requ ested Visits Authorized [id number] Closed 02/27/2022 02/27/2023 1 1 Encounter Details Date Type Department Care Team Description 02/28/2022 Hospital Encounter Department of Luis Armando Gleason M.D. [address] [place] [phone] Malignant Neoplasm Radiation Oncology Belia Amezquita L.I.C.S.W., M.S.W. 200 [place] [address] Of Brain (HCC) in [place], [place] 200 [place] [address] Social History Tobacco Use Types Packs/Day Years [...] or relatives? How often do you attend taoist or More than 4 times per year 01/07/2022 tenriism services? Do you belong to any clubs or No 01/07/2022 organizations such as taoist groups, unions, fraternal or athletic groups, or [...] have completed or the highest Maulik, MEd, PERIANESTHESIA NURSE, 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 Sex Assigned [...] 1 tablet (8 mg 30 tablet 3 /0 02/202203/01/2022 mg tabletIndications: total) by mouth Malignant Neoplasm Of every 8 (eight) Brain (HCC) hours as needed for nausea or vomiting. documented as of this encounter Progress Notes Belia Amezquita L.I.C.S.W., M.S.W. - 02/28/2022 9:00 AM CDT [employer] completed a phone call to the patient to talk with her about her insurance and additional financial resources that would assist in decreasing financial toxicity. The patient confirm she wasable to get medical assistance in place as her primary insurance as of 02/22/2022. She reports [facility] workers will be discussing today if this [...] burden. Discussion took place about communication with [facility] to assist with navigating benefits for out of town travel and appointments and benefits that come with her new insurance including mileage reimbursement, meal reimbursement, and lodging benefits. Social work also discussed the potential for transportation benefits if patient is unable to drive. Patient reflects and discusses current vision impairment and obstacles. She reports she is having additional appointments added to her schedule due to the change in her TSH level and her vision. She admits to feeling overwhelmed and has assistance froma partner and her mother through formal resources and caregiving support. She is working with occupational therapy to assist with her vision. She would like to have [employer] send contact [employer] portal for future communication and contact. [employer] communicated updates with primary radiation Oncology team and social Work. Care coordination will be ongoing. documented in this encounter Plan of Treatment Upcoming Encounters Date Type Specialty Care Team Description 05/03/2022 Telemedicine Clinical Genomics Sanya Mehta M.D. [address] [place] [phone] 05/06/2022 Clinical Communication Admitting/Central Scheduling 05/09/2022 Office Visit Oncology Farzana Allen M.D. [address] [place] [phone] 05/17/2022 Clinical Communication Admitting/Central Scheduling 05/21/2022 Lab Laboratory Medicine Vini Maki M.D., Ph.D. [address] [place] [phone] 05/21/2022 Appointment Radiology Vini Maki M.D., Ph.D. [address] [place] [phone] 05/21/2022 Office Visit Oncology Vini Maki M.D., Ph.D. [address] [place] [phone] 06/11/2022 Ancillary Procedure Ophthalmology Chas Shin M.D. [address] [place] [phone] 06/11/2022 Ancillary Procedure Ophthalmology Chas Shin M.D. [address] [place] [phone] 06/11/2022 Office Visit Ophthalmology Chas Shin M.D. [address] [place] [phone] Scheduled Referrals Name Type Priority Associated Order Schedule Diagnoses Social Work - Outpatient Referral Routine Malignant Neoplasm O nce for 1 General consult Of Brain (HCC) Occurrence s starting (clinic) 02/28/2022 unti l 02/28/2022 documented as of this encounter Visit Diagnoses Diagnosis Malignant Neoplasm Of Brain (HCC) documented in this encounter
--- OUTSIDE RECORDS SUMMARY | 2022-04-10 09:39 | XMS_ITS | Encounter Summary ---
:1970 Author Organization [facility] Address [address] [place] [address] Care Team Providers Name Role Phone Unavailable Primary Care Provider Unavailable Reason for Visit Radiation Therapy (Routine) - Closed Specialty Diagnoses / Procedures Referred By Contact Refer red To Contact Diagnoses Malignant Neoplasm Of Brain (HCC) Stephanie Gleason M.D. [facility] Radiation Oncology Procedures Prior Auth Rad Tx [place] IMRT COMPLEX [address] [place] [address] [address] [place] [address] Referral ID Status Reason Start Date Expiration Date Visits Requ ested Visits Authorized [id number] Closed 01/31/2022 12/31/2022 30 30 Encounter Details Date Type Department Care Team Description 02/26/2022 Hospital Encounter Department of Radiation Jacquelyn Gleason I., [place]cology in [place] [address] [facility] [address] [place] [phone] Social History Tobacco Use Types Packs/Day Years [...] or relatives? How often do you attend synagogue or More than 4 times per year 01/07/2022 faith services? Do you belong to any clubs or No 01/07/2022 organizations such as synagogue groups, unions, fraternal or athletic groups, or [...] completed or the highest Maulik, MEd, FARM LOAN INSPECTOR, 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 Sex Assigned [...] Telemedicine Clinical Genomics Sanya Mehta M.D. [address] [place] [phone] 05/06/2022 Clinical Communication Admitting/Central Scheduling 05/09/2022 Office Visit Oncology Farzana Allen M.D. [address] [place] [phone] 05/17/2022 Clinical Communication Admitting/Central Scheduling 05/21/2022 Lab Laboratory Medicine Vini Maki M.D., Ph.D. [address] [place] [phone] 05/21/2022 Appointment Radiology Vini Maki M.D., Ph.D. [address] [place] [phone] 05/21/2022 Office Visit Oncology Vini Maki M.D., Ph.D. [address] [place] [phone] 06/11/2022 Ancillary Procedure Ophthalmology Chas Shin M.D. [address] [place] [phone] 06/11/2022 Ancillary Procedure Ophthalmology Chas Shin M.D. [address] [place] [phone] 06/11/2022 Office Visit Ophthalmology Chas Shin M.D. [address] [place] [phone] documented as of this encounter Visit Diagnoses Not on filedocumented in this encounter
--- OUTSIDE RECORDS SUMMARY | 2022-04-10 09:39 | XMS_ITS | Encounter Summary ---
:1970 Author Organization [facility] Address [address] [place] [address] Care Team Providers Name Role Phone Unavailable Primary Care Provider Unavailable Reason for Visit Reason Comments Intake Assessment Encounter Details Date Type Department Care Team Description 03/05/2022 Clinical Communication Visit Review in In take [place], [place] 200 [place] [address] Social History Tobacco Use Types Packs/Day Years [...] or relatives? How often do you attend yazdanism or More than 4 times per year 01/07/2022 uatsdin services? Do you belong to any clubs or No 01/07/2022 organizations such as yazdanism groups, unions, fraternal or athletic groups, or [...] have completed or the highest Maulik, MEd, PACKAGING ENGINEER, 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 Sex Assigned at Date Recorded Female 01/07/2022 11:11 AM CDT documented as of this encounter Plan of Treatment Upcoming Encounters Date Type Specialty Care Team Description 05/03/2022 Telemedicine Clinical Genomics Sanya Mehta M.D. [address] [place] [phone] 05/06/2022 Clinical Communication Admitting/Central Scheduling 05/09/2022 Office Visit Oncology Farzana Allen M.D. [address] [place] [phone] 05/17/2022 Clinical Communication Admitting/Central Scheduling 05/21/2022 Lab Laboratory Medicine Vini Maki M.D., Ph.D. [address] [place] [phone] 05/21/2022 Appointment Radiology Vini Maki M.D., Ph.D. [address] [place] [phone] 05/21/2022 Office Visit Oncology Vini Maki M.D., Ph.D. [address] [place] [phone] 06/11/2022 Ancillary Procedure Ophthalmology Chas Shin M.D. [address] [place] [phone] 06/11/2022 Ancillary Procedure Ophthalmology Chas Shin M.D. [address] [place] [phone] 06/11/2022 Office Visit Ophthalmology Chas Shin M.D. [address] [place] [phone] documented as of this encounter Visit Diagnoses Not on filedocumented in this encounter
--- OUTSIDE RECORDS SUMMARY | 2022-04-10 09:40 | XMS_ITS | Encounter Summary ---
:1970 Author Organization [facility] Address [address] [place] [address] Care Team Providers Name Role Phone Unavailable Primary Care Provider Unavailable Reason for Visit Radiation Therapy (Routine) - Closed Specialty Diagnoses / Procedures Referred By Contact Refer red To Contact Diagnoses Malignant Neoplasm Of Brain (HCC) Stephanie Gleason M.D. [facility] Radiation Oncology Procedures Prior Auth Rad Tx [place] IMRT COMPLEX [address] [place] [address] [address] [facility] [place] [address] Referral ID Status Reason Start Date Expiration Date Visits Requ ested Visits Authorized [id number] Closed 01/31/2022 12/31/2022 30 30 Encounter Details Date Type Department Care Team Description 02/14/2022 Hospital Encounter Department of Radiation Jacquelyn Gleason I., Oncology in [place] [address] [facility] [address] [place] [address] [phone] Social History Tobacco Use Types Packs/Day Years [...] have completed or the highest Maulik, MEd, FENCE GATE ASSEMBLER, 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 Sex [...] Telemedicine Clinical Genomics Sanya Mehta M.D. [address] [place] [phone] 05/06/2022 Clinical Communication Admitting/Central Scheduling 05/09/2022 Office Visit Oncology Farzana Allen M.D. [address] [place] [phone] 05/17/2022 Clinical Communication Admitting/Central Scheduling 05/21/2022 Lab Laboratory Medicine Vini Maki M.D., Ph.D. [address] [place] [phone] 05/21/2022 Appointment Radiology Vini Maki M.D., Ph.D. [address] [place] [phone] 05/21/2022 Office Visit Oncology Vini Maki M.D., Ph.D. [address] [place] [phone] 06/11/2022 Ancillary Procedure Ophthalmology Chas Shin M.D. [address] [place] [phone] 06/11/2022 Ancillary Procedure Ophthalmology Chas Shin M.D. [address] [place] [phone] 06/11/2022 Office Visit Ophthalmology Chas Shin M.D. [address] [place] [phone] documented as of this encounter Visit Diagnoses Not on filedocumented in this encounter
--- OUTSIDE RECORDS SUMMARY | 2022-04-10 09:40 | XMS_ITS | Encounter Summary ---
:1970 Author Organization [facility] Address [address] [place] [address] Care Team Providers Name Role Phone Unavailable Primary Care Provider Unavailable Reason for Visit Radiation Therapy (Routine) - Closed Specialty Diagnoses / Procedures Referred By Contact Refer red To Contact Diagnoses Malignant Neoplasm Of Brain (HCC) Stephanie Gleason M.D. [facility] Radiation Oncology Procedures Prior Auth Rad Tx [place] IMRT COMPLEX [address] [place] [address] [address] [place] [address] Referral ID Status Reason Start Date Expiration Date Visits Requ ested Visits Authorized [id number] Closed 01/31/2022 12/31/2022 30 30 Encounter Details Date Type Department Care Team Description 02/13/2022 Hospital Encounter Department of Radiation Jacquelyn Gleason I., Oncology in [place] [address] [facility] [address] [place] [address] [phone] Social History Tobacco Use Types Packs/Day Years [...] have completed or the highest Maulik, MEd, SR VICE PRESIDENT, 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 Sex Assigned [...] Telemedicine Clinical Genomics Sanya Mehta M.D. [address] [place] [phone] 05/06/2022 Clinical Communication Admitting/Central Scheduling 05/09/2022 Office Visit Oncology Farzana Allen M.D. [address] [place] [phone] 05/17/2022 Clinical Communication Admitting/Central Scheduling 05/21/2022 Lab Laboratory Medicine Vini Maki M.D., Ph.D. [address] [place] [phone] 05/21/2022 Appointment Radiology Vini Maki M.D., Ph.D. [address] [place] [phone] 05/21/2022 Office Visit Oncology Vini Maki M.D., Ph.D. [address] [place] [phone] 06/11/2022 Ancillary Procedure Ophthalmology Chas Shin M.D. [address] [place] [phone] 06/11/2022 Ancillary Procedure Ophthalmology Chas Shin M.D. [address] [place] [phone] 06/11/2022 Office Visit Ophthalmology Chas Shin M.D. [address] [place] [phone] documented as of this encounter Visit Diagnoses Not on filedocumented in this encounter
--- OUTSIDE RECORDS SUMMARY | 2022-04-10 09:40 | XMS_ITS | Encounter Summary ---
:1970 Author Organization [facility] Address [address] [place] [address] Care Team Providers Name Role Phone Unavailable Primary Care Provider Unavailable Reason for Visit Radiation Therapy (Routine) - Closed Specialty Diagnoses / Procedures Referred By Contact Refer red To Contact Diagnoses Malignant Neoplasm Of Brain (HCC) Stephanie Gleason M.D. [facility] [[email or web address] Radiation Oncology Procedures Prior Auth Rad Tx [place] IMRT COMPLEX [address] [place] [address] [address] [place] [address] Referral ID Status Reason Start Date Expiration Date Visits Requ ested Visits Authorized [id number] Closed 01/31/2022 12/31/2022 30 30 Encounter Details Date Type Department Care Team Description 02/15/2022 Hospital Encounter Department of Radiation Jacquelyn Gleason I., Oncology in [place] [address] [facility] [address] [place] [address] [phone] Social History Tobacco Use Types Packs/Day Years [...] completed or the highest Maulik, MEd, SENIOR FINANCIAL REPORTING ACCOUNTANT, 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 Sex Assigned [...] Telemedicine Clinical Genomics Sanya Mehta M.D. [address] [place] [phone] 05/06/2022 Clinical Communication Admitting/Central Scheduling 05/09/2022 Office Visit Oncology Farzana Allen M.D. [address] [place] [phone] 05/17/2022 Clinical Communication Admitting/Central Scheduling 05/21/2022 Lab Laboratory Medicine Vini Maki M.D., Ph.D. [address] [place] [phone] 05/21/2022 Appointment Radiology Vini Maki M.D., Ph.D. [address] [place] [phone] 05/21/2022 Office Visit Oncology Vini Maki M.D., Ph.D. [address] [place] [phone] 06/11/2022 Ancillary Procedure Ophthalmology Chas Shin M.D. [address] [place] [phone] 06/11/2022 Ancillary Procedure Ophthalmology Chas Shin M.D. [address] [place] [phone] 06/11/2022 Office Visit Ophthalmology Chas Shin M.D. [address] [place] [phone] documented as of this encounter Visit Diagnoses Not on filedocumented in this encounter
--- OUTSIDE RECORDS SUMMARY | 2022-04-10 09:40 | XMS_ITS | Encounter Summary ---
:1970 Author Organization [facility] Address [address] [place] [address] Care Team Providers Name Role Phone Unavailable Primary Care Provider Unavailable Reason for Visit Reason Comments Labs Only Encounter Details Date Type Department Care Team Description 02/14/2022 Clinical Communication Department of Oncology Olivia Sanchez Labs Only in [facility], Pillo.N.P., M.A., [place] R.N., [facility]- 200 [facility] 200 [place] [address] [phone] Social History Tobacco Use Types Packs/Day Years [...] have completed or the highest Maulik, MEd, BIGHT MAKER, 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 Sex Assigned [...] weekly labs drawn, and recommended talking with [facility] to learn about their scheduling [...] nursing clinical judgement and provider Dr Cedeno documented in this encounter Plan of Treatment Upcoming Encounters Date Type Specialty Care Team Description 05/03/2022 Telemedicine Clinical Genomics Sanya Mehta M.D. [address] [place] [phone] 05/06/2022 Clinical Communication Admitting/Central Scheduling 05/09/2022 Office Visit Oncology Farzana Allen M.D. [address] [place] [phone] 05/17/2022 Clinical Communication Admitting/Central Scheduling 05/21/2022 Lab Laboratory Medicine Vini Maki M.D., Ph.D. [address] [place] [phone] 05/21/2022 Appointment Radiology Vini Maki M.D., Ph.D. [address] [place] [phone] 05/21/2022 Office Visit Oncology Vini Maki M.D., Ph.D. [address] [place] [phone] 06/11/2022 Ancillary Procedure Ophthalmology Chas Shin M.D. [address] [place] [phone] 06/11/2022 Ancillary Procedure Ophthalmology Chas Shin M.D. [address] [place] [phone] 06/11/2022 Office Visit Ophthalmology Chas Shin M.D. [address] [place] [phone] documented as of this encounter Visit Diagnoses Not on filedocumented in this encounter
--- OUTSIDE RECORDS SUMMARY | 2022-04-10 09:40 | XMS_ITS | Encounter Summary ---
:1970 Author Organization [facility] Address [address] [place] [address] Care Team Providers Name Role Phone Unavailable Primary Care Provider Unavailable Reason for Visit Radiation Therapy (Routine) - Closed Specialty Diagnoses / Procedures Referred By Contact Refer red To Contact Diagnoses Malignant Neoplasm Of Brain (HCC) Stephanie Gleason M.D. [facility] Radiation Oncology Procedures Prior Auth Rad Tx [place] IMRT COMPLEX [address] [place] [address] [address] [facility] [place] [address] Referral ID Status Reason Start Date Expiration Date Visits Requ ested Visits Authorized [id number] Closed 01/31/2022 12/31/2022 30 30 Encounter Details Date Type Department Care Team Description 02/19/2022 Hospital Encounter Department of Radiation Jacquelyn Gleason I., Oncology in [place] [address] [facility] [address] [place] [address] [phone] Social History Tobacco Use Types Packs/Day Years [...] have completed or the highest Maulik, MEd, CHUTE TENDER, 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 Sex [...] Telemedicine Clinical Genomics Sanya Mehta M.D. [address] [place] [phone] 05/06/2022 Clinical Communication Admitting/Central Scheduling 05/09/2022 Office Visit Oncology Farzana Allen M.D. [address] [place] [phone] 05/17/2022 Clinical Communication Admitting/Central Scheduling 05/21/2022 Lab Laboratory Medicine Vini Maki M.D., Ph.D. [address] [place] [phone] 05/21/2022 Appointment Radiology Vini Maki M.D., Ph.D. [address] [place] [phone] 05/21/2022 Office Visit Oncology Vini Maki M.D., Ph.D. [address] [place] [phone] 06/11/2022 Ancillary Procedure Ophthalmology Chas Shin M.D. [address] [place] [phone] 06/11/2022 Ancillary Procedure Ophthalmology Chas Shin M.D. [address] [place] [phone] 06/11/2022 Office Visit Ophthalmology Chas Shin M.D. [address] [place] [phone] documented as of this encounter Visit Diagnoses Not on filedocumented in this encounter
--- OUTSIDE RECORDS SUMMARY | 2022-04-10 09:40 | XMS_ITS | Encounter Summary ---
:1970 Author Organization [facility] Address [address] [place] [address] Care Team Providers Name Role Phone Unavailable Primary Care Provider Unavailable Reason for Referral Outpatient (Routine) - Closed Specialty Diagnoses / Procedures Referred By Contact Refer red To Contact Oncology Rebeca Valle P .A.-C., M.S. [address] [phone] Referral ID Status Reason Start Date Expiration Date Visits Requ ested Visits Authorized [id number] Closed 02/20/2022 02/20/2023 1 1 Reason for Visit Outpatient (Routine) - Closed Specialty Diagnoses / Procedures Referred By Contact Gina red To Contact Oncology Rebeca Valle P .A.-C., M.S. [address] [phone] Referral ID Status Reason Start Date Expiration Date Visits Requ ested Visits Authorized [id number] Closed 01/30/2022 01/30/2023 1 1 Encounter Details Date Type Department Care Team Description 02/20/2022 Virtual Visit Department of Rebeca Valle Astrocy toma (HCC) (Primary Dx); Oncology in [place], M.S. Malignant Neoplasm Of Brain (HCC) [address] [place], [place] [address] [phone] Social History Tobacco Use Types Packs/Day Years [...] have completed or the highest Maulik, MEd, MANUFACTURING JOB TITLES, 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 Sex Assigned at Date Recorded Female 01/07/2022 11:11 AM CDT documented as of this encounter Progress Notes Rebeca Valle P.A.-C., M.S. - 02/20/2022 2:40 PM CDT SUBJECTIVE COLLABORATING ONCOLOGIST: Dr. Maki PRIMARY [place] ONCOLOGIST: Farzana Allen M.D. CHIEF COMPLAINT/REASON FOR [...] sense. The patient was taken to the [facility] with altered mental status. The patient [...] with steroids and Keppra and transferred to [facility]. 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 See comment. B. 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 See comment. Final Diagnosis: [...] Referral to Dr. Shelbie Ackerman at the [facility]. Discussed that it was okay for the patient to proceed with chemotherapy and radiation 1 month from biopsy date. Also discussed that itwas okay for the patient to travel on a commercial air flight approximately 1 month from biopsy as she was planning for a trip to [place] with her significant other in December. 12/24/[address] Shelbie Ackerman who reviewed the patient's case with Dr. Dunlap and he recommended against additional surgery. Dr. Macias recommended proceeding with a combination of radiation therapy plus temozolomide. Referral to Radiation Oncology at [facility] in [place]. 01/10/2022 Surgery and Procedures Left temporoparietal stereotactic craniotomy with tumor resection, speech mapping with Dr. Ivey. PATHOLOGY: A-D. 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 See comment. 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 The biopsy specimen lacked microvascular proliferation and tumor necrosis. By immunohistochemistry, the tumor cells were negative for IDH1-R132H and showed retained ATRX expression. 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 01/10/2022 Imaging MRI of [...] Days 02/20/2022 20 ??? Reference Point 02/20/2022 [id number] ??? Dosage Given to Date cGy 02/20/2022 3000 ??? Session Dosage Given 02/20/2022 200 ??? Plan ID 02/20/2022 [id number] ??? Fractions Treated to Date 02/20/2022 15 ??? Planned Total Fractions 02/20/2022 30 ??? Prescribed Dose Per Frac* 02/20/2022 200 ??? Prescription Dose in cGy 02/20/2022 6000 ??? Plan Primary Reference P* 02/20/2022 [id number] Aria Results on 02/18/2022 Component Date Value ??? Course ID 02/18/2022 [id number] ??? Course Start Date 02/18/2022 01/01/2022 08:23 CDT ??? First Treatment Date 02/18/2022 01/31/2022 10:11 CDT ??? Last Treatment Date 02/18/2022 02/18/2022 12:58 CDT ??? Treatment Elapsed Days 02/18/2022 18 ??? Reference Point 02/18/2022 [id number] ??? Dosage Given to Date cGy 02/18/2022 2600 ??? Session Dosage Given 02/18/2022 200 ??? Plan ID 02/18/2022 [id number] ??? Fractions Treated to Date 02/18/2022 13 ??? Planned Total Fractions 02/18/2022 30 ??? Prescribed Dose Per Frac* 02/18/2022 200 ??? Prescription Dose in cGy 02/18/2022 6000 ??? Plan Primary Reference P* 02/18/2022 [id number] ??? Course ID 02/19/2022 [id number] ??? Course Start Date 02/19/2022 01/01/2022 08:23 CDT ??? First Treatment Date 02/19/2022 01/31/2022 10:11 CDT ??? Last Treatment Date 02/19/2022 02/19/2022 13:02 CDT ??? Treatment Elapsed Days 02/19/2022 19 ??? Reference Point 02/19/2022 [id number] ??? Dosage Given to Date cGy 02/19/2022 2800 ??? Session Dosage Given 02/19/2022 200 ??? Plan ID 02/19/2022 [id number] ??? Fractions Treated to Date 02/19/2022 14 ??? Planned Total Fractions 02/19/2022 30 ??? Prescribed Dose Per Frac* 02/19/2022 200 ??? Prescription Dose in cGy 02/19/2022 6000 ??? Plan Primary Reference P* 02/19/2022 [id number] Aria Results on 02/15/2022 Component Date Value ??? Course ID 02/15/2022 [id number] ??? Course Start Date 02/15/2022 01/01/2022 08:23 CDT ??? First Treatment Date 02/15/2022 01/31/2022 10:11 CDT ??? Last Treatment Date 02/15/2022 02/15/2022 09:35 CDT ??? Treatment Elapsed Days 02/15/2022 15 ??? Reference Point 02/15/2022 [id number] ??? Dosage Given to Date cGy 02/15/2022 2400 ??? Session Dosage Given 02/15/2022 200 ??? Plan ID 02/15/2022 [id number] ??? Fractions Treated to Date 02/15/2022 12 ??? Planned Total Fractions 02/15/2022 30 ??? Prescribed Dose Per Frac* 02/15/2022 200 ??? Prescription Dose in cGy 02/15/2022 6000 ??? Plan Primary Reference P* 02/15/2022 [id number] Patient Message on 02/14/2022 Component Date Value ??? EXT Hemoglobin 02/18/2022 12 ??? EXT Leukocytes 02/18/2022 4.22 (A) ??? EXT Absolute Neutrophil * 02/18/2022 2.03 ??? EXT Lymphs Absolute 02/18/2022 1.74 ??? EXT Platelet Count 02/18/2022 576 (A) RADIOLOGICAL DATA: No MRI this visit. REPORTS: I personally reviewed current labs and imaging. ASSESSMENT / PLAN 1. Glioblastoma Mia Le Colling presents today for follow up. In brief, [...] been obtained and have been entered and thechart. They are within range in indicates she [...] were not aware this labs were reviewed in thechart and they are unsure of the next steps. Will follow-up with integrative medicine clinic as I anticipate these were ordered by their clinic. [...] chemotherapy,chemotherapy regimen, and the future treatment regimen. Schedule-we did review when radiation chemotherapy will be completed on 03/14/2022. Subsequent visitinclude Neuro-Ophthalmology on 03/25/2022 and 03/26/2022. Then following [...] and recommended the reach out to the patient regarding these labs and plan for follow-up. PATIENT EDUCATION: Ready to learn, no apparent learning barriers were identified; learning preferences include listening. Explained diagnosis and treatment plan; patient expressed understanding of the content. Discussed with the patient we work together as a care team of physicians, nurse practitioners/physician assistants, nurses and other sales support manager that specialize in this cancer. Also, reviewed [...] Telemedicine Clinical Genomics Sanya Mehta M.D. [address] [place] [phone] 05/06/2022 Clinical Communication Admitting/Central Scheduling 05/09/2022 Office Visit Oncology Farzana Allen M.D. [address] [place] [phone] 05/17/2022 Clinical Communication Admitting/Central Scheduling 05/21/2022 Lab Laboratory Medicine Vini Maki M.D., Ph.D. [address] [place] [phone] 05/21/2022 Appointment Radiology Vini Maki M.D., Ph.D. [address] [place] [phone] 05/21/2022 Office Visit Oncology Vini Maki M.D., Ph.D. [address] [place] [phone] 06/11/2022 Ancillary Procedure Ophthalmology Chas Shin M.D. [address] [place] [phone] 06/11/2022 Ancillary Procedure Ophthalmology Chas Shin M.D. [address] [place] [phone] 06/11/2022 Office Visit Ophthalmology Chas Shin M.D. [address] [place] [phone] Scheduled Referrals Name Type Priority Associated Diagnoses Order S chedule Oncology office Outpatient Referral Routine Expec anayeli: visit (clinic) 04/04/2022, General; Brain Expires: 05/23/2023 documented as of this encounter Visit Diagnoses Diagnosis Astrocytoma (HCC) - Primary Malignant Neoplasm Of Brain (HCC) documented in this encounter
--- OUTSIDE RECORDS SUMMARY | 2022-04-10 09:40 | XMS_ITS | Encounter Summary ---
:1970 Author Organization [facility] Address [address] [place] [address] Care Team Providers Name Role Phone Unavailable Primary Care Provider Unavailable Encounter Details Date Type Department Care Team Description 02/15/2022 Orders Only Department of Neurology in Karthikeyan Cedeno M.D. [place], [place] [address] [facility] [address] [place] [phone] (Wo rk) Social History Tobacco Use Types [...] have completed or the highest Maulik, MEd, PHOSPHORIC ACID SUPERVISOR, 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 Sex Assigned at Date Recorded Female 01/07/2022 11:11 AM CDT documented as of this encounter Plan of Treatment Upcoming Encounters Date Type Specialty Care Team Description 05/03/2022 Telemedicine Clinical Genomics Sanya Mehta M.D. [address] [place] [phone] 05/06/2022 Clinical Communication Admitting/Central Scheduling 05/09/2022 Office Visit Oncology Farzana Allen M.D. [address] [place] [phone] 05/17/2022 Clinical Communication Admitting/Central Scheduling 05/21/2022 Lab Laboratory Medicine Vini Maki M.D., Ph.D. [address] [place] [phone] 05/21/2022 Appointment Radiology Vini Maki M.D., Ph.D. [address] [place] [phone] 05/21/2022 Office Visit Oncology Vini Maki M.D., Ph.D. [address] [place] [phone] 06/11/2022 Ancillary Procedure Ophthalmology Chas Shin M.D. [address] [place] [phone] 06/11/2022 Ancillary Procedure Ophthalmology Chas Shin M.D. [address] [place] [phone] 06/11/2022 Office Visit Ophthalmology Chas Shin M.D. [address] [place] [phone] documented as of this encounter Visit Diagnoses Not on filedocumented in this encounter
--- OUTSIDE RECORDS SUMMARY | 2022-04-10 09:40 | XMS_ITS | Encounter Summary ---
:1970 Author Organization [facility] Address [address] [place] [address] Care Team Providers Name Role Phone Unavailable Primary Care Provider Unavailable Reason for Referral Radiation Therapy (Routine) - Authorized Specialty Diagnoses / Procedures Referred By Contact Refer red To Contact Diagnoses Malignant Neoplasm Of Brain (HCC) Stephanie Gleason M.D. [facility] Radiation Oncology Procedures Management Visit [address] [facility] [place], [place] [phone] [place] [address] Referral ID Status Reason Start Date Expiration Date Visits V isits Requested Authorized [id number] Authorized 12/31/2021 12/31/2022 10 10 Reason for Visit Radiation Therapy (Routine) - Authorized Specialty Diagnoses / Procedures Referred By Contact Refer red To Contact Diagnoses Malignant Neoplasm Of Brain (HCC) Stephanie Gleason M.D. [facility] Radiation Oncology Procedures Management Visit [address] [place] [phone] [place] [phone] Referral ID Status Reason Start Date Expiration Date Visits V isits Requested Authorized [id number] Authorized 12/31/2021 12/31/2022 10 10 Encounter Details Date Type Department Care Team Description 02/12/2022 Hospital Encounter Department of Stephanie Gleason Neoplasm Radiation Oncology Sebastian Marcelino Of Brain (HCC) in [place], [facility] [address] [place], [place] [address] [facility] [address] [place], [place] [phone] (Work) [phone] Social History Tobacco Use Types Packs/Day Years [...] or relatives? How often do you attend cheondoism or More than 4 times per year 01/07/2022 baptist services? Do you belong to any clubs or No 01/07/2022 organizations such as cheondoism groups, unions, fraternal or athletic groups, or [...] have completed or the highest Maulik, MEd, HOT DOG VENDOR, 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 Sex Assigned [...] (cGy) First Treatment Last Treatment Elapsed Days [id number] 200 1446 6000 01/31/2022 02/11/2022 11 Course [...] since her surgery. Friday she noticed slight nausea but this improved with taking anti-emetic. Vision has improved significantly. Patient was able to visit with OT rehab in [place] and this went well. PATIENT REPORTED SYMPTOM [...] overall. We will continue to monitor symptoms. Juan Alberto continue to see patient in weekly management [...] Telemedicine Clinical Genomics Sanya Mehta M.D. [address] [place] [phone] 05/06/2022 Clinical Communication Admitting/Central Scheduling 05/09/2022 Office Visit Oncology Farzana Allen M.D. [address] [place] [phone] 05/17/2022 Clinical Communication Admitting/Central Scheduling 05/21/2022 Lab Laboratory Medicine Vini Maki M.D., Ph.D. [address] [place] [phone] 05/21/2022 Appointment Radiology Vini Maki M.D., Ph.D. [address] [place] [phone] 05/21/2022 Office Visit Oncology Vini Maki M.D., Ph.D. [address] [place] [phone] 06/11/2022 Ancillary Procedure Ophthalmology Chas Shin M.D. [address] [place] [phone] 06/11/2022 Ancillary Procedure Ophthalmology Chas Shin M.D. [address] [place] [phone] 06/11/2022 Office Visit Ophthalmology Chas Shin M.D. 200 [place] [phone] Scheduled Orders Name Type Priority Associated Diagnoses Order S chedule Management Visit Radiation Oncology Routine Malignant Neoplasm Once for 1 Of Brain (HCC) Occurrences s tarting 02/12/2022 unti l 02/12/2022 documented as of this encounter Visit Diagnoses Diagnosis Malignant Neoplasm Of Brain (HCC) documented in this encounter
--- OUTSIDE RECORDS SUMMARY | 2022-04-10 09:40 | XMS_ITS | Encounter Summary ---
:1970 Author Organization [facility] Address [address] [place] [address] Care Team Providers Name Role Phone Unavailable Primary Care Provider Unavailable Reason for Visit Reason Comments Temodar question Encounter Details Date Type Department Care Team Description 02/13/2022 Clinical Communication Department of Rebeca Valle question Oncology in Neo Amado., M.S. [place], [facility] [place], [place] [address] [place] [phone] [place], [place] [phone] (Work) [phone] Social History Tobacco Use Types Packs/Day Years [...] have completed or the highest Maulik, MEd, COAL WEIGHER, 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 Sex Assigned [...] can take 2 of the 140mg tablets. RN will call [facility] back and update them. PLAN Disposition/Recommendation: [facility]. Will discuss with physicianif ok to just take 140mg, or 280mg tonight. Information/Education: patient/caller able to teach back Caller agreeable to plan of care: yes The following references were used: nursing clinical judgement Telephone Encounter - Stacy Flanagan R.N. - 02/13/2022 3:30 PM CDT Spoke with pharmacist at [facility] regarding TMZ prescription. Clarified that only half of the 42 day quantity was shipped on 02/01. The remaining half is scheduled for shipment on 02/20. Will update the patient. documented in this encounter Plan of Treatment Upcoming Encounters Date Type Specialty Care Team Description 05/03/2022 Telemedicine Clinical Genomics Sanya Mehta M.D. [address] [place] [phone] 05/06/2022 Clinical Communication Admitting/Central Scheduling 05/09/2022 Office Visit Oncology Farzana Allen M.D. [address] [place] [phone] 05/17/2022 Clinical Communication Admitting/Central Scheduling 05/21/2022 Lab Laboratory Medicine Vini Maki M.D., Ph.D. [address] [place] [phone] 05/21/2022 Appointment Radiology Vini Maki M.D., Ph.D. [address] [place] [phone] 05/21/2022 Office Visit Oncology Vini Maki M.D., Ph.D. [address] [place] [phone] 06/11/2022 Ancillary Procedure Ophthalmology Chas Shin M.D. [address] [place] [phone] 06/11/2022 Ancillary Procedure Ophthalmology Chas Shin M.D. [address] [place] [phone] 06/11/2022 Office Visit Ophthalmology Chas Shin M.D. [address] [place] [phone] documented as of this encounter Visit Diagnoses Not on filedocumented in this encounter
--- OUTSIDE RECORDS SUMMARY | 2022-04-10 09:40 | XMS_ITS | Encounter Summary ---
:1970 Author Organization [facility] Address [address] [place] [address] Care Team Providers Name Role Phone Unavailable Primary Care Provider Unavailable Reason for Visit Radiation Therapy (Routine) - Closed Specialty Diagnoses / Procedures Referred By Contact Refer red To Contact Diagnoses Malignant Neoplasm Of Brain (HCC) Stephanie Gleason M.D. [facility] Radiation Oncology Procedures Prior Auth Rad Tx ND IMRT [facility]PLEX [address] [place] [phone] [facility] [address] Referral ID Status Reason Start Date Expiration Date Visits Requ ested Visits Authorized [id number] Closed 01/31/2022 12/31/2022 30 30 Encounter Details Date Type Department Care Team Description 02/18/2022 Hospital Encounter Department of Radiation Jacquelyn Gleason I., Oncology [place] [address] [facility] [address] [place] [phone] Social History Tobacco Use Types Packs/Day Years [...] have completed or the highest Maulik, MEd, AUTO LOCATOR, 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 Sex Assigned [...] Telemedicine Clinical Genomics Sanya Mehta M.D. [address] [place] [phone] 05/06/2022 Clinical Communication Admitting/Central Scheduling 05/09/2022 Office Visit Oncology Farzana Allen M.D. [address] [place] [phone] 05/17/2022 Clinical Communication Admitting/Central Scheduling 05/21/2022 Lab Laboratory Medicine Vini Maki M.D., Ph.D. [address] [place] [phone] 05/21/2022 Appointment Radiology Vini Maki M.D., Ph.D. [address] [place] [phone] 05/21/2022 Office Visit Oncology Vini Maki M.D., Ph.D. [address] [place] [phone] 06/11/2022 Ancillary Procedure Ophthalmology Chas Shin M.D. [address] [place] [phone] 06/11/2022 Ancillary Procedure Ophthalmology Chas Shin M.D. [address] [place] [phone] 06/11/2022 Office Visit Ophthalmology Chas Shin M.D. [address] [place] [phone] documented as of this encounter Visit Diagnoses Not on filedocumented in this encounter
--- OUTSIDE RECORDS SUMMARY | 2022-04-10 09:40 | XMS_ITS | Encounter Summary ---
:1970 Author Organization [facility] Address [address] [place] [address] Care Team Providers Name Role Phone Unavailable Primary Care Provider Unavailable Reason for Visit Reason Comments labs only 02/13/22 01/28/22 labs Encounter Details Date Type Department Care Team Description 02/13/2022 Clinical Communication Department of Latanya Michael lab s only 02/13/22; Oncology in D, R.N., O.C.N. 01/28/22 labs [place], [address] [place], [place] [address] [place] [phone] [place] [address] Social History Tobacco Use Types Packs/Day Years [...] have completed or the highest Maulik, MEd, WORKERS COMPENSATION ADMINISTRATOR, 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 Sex Assigned at Date Recorded Female 01/07/2022 11:11 AM CDT documented as of this encounter Miscellaneous Notes Telephone Encounter - Olivia Koenig D.N.P., M.Domingo., R.N., [facility] - 02/14/2022 3:46 PM CDT Labs Verified Electronically signed by Olivia Koenig D.N.P., M.A., R.N., [facility] at 02/14/2022 3:46 PM CDT [...] 02/14/2022 1:34 PM CDT Faxed request to [facility] to send latest labs Telephone Encounter - Olivia Koenig D.N.P., M.Domingo., R.N., [facility] - 02/13/2022 4:28 PM CDT Labs Verified Telephone Encounter - Trupti Pearson - 02/13/2022 4:21 PM CDT Labs have been entered and are ready for review. documented in this encounter Plan of Treatment Upcoming Encounters Date Type Specialty Care Team Description 05/03/2022 Telemedicine Clinical Genomics Sanya Mehta M.D. [address] [place] [address] [phone] 05/06/2022 Clinical Communication Admitting/Central Scheduling 05/09/2022 Office Visit Oncology Farzana Allen M.D. [address] [place] [address] [phone] 05/17/2022 Clinical Communication Admitting/Central Scheduling 05/21/2022 Lab Laboratory Medicine Vini Maki M.D., Ph.D. [address] [place] [address] [phone] 05/21/2022 Appointment Radiology Vini Maki M.D., Ph.D. [address] [place] [phone] 05/21/2022 Office Visit Oncology Vini Maki M.D., Ph.D. [address] [place] [address] [phone] 06/11/2022 Ancillary Procedure Ophthalmology Chas Shin M.D. [address] [place] [address] [phone] 06/11/2022 Ancillary Procedure Ophthalmology Chas Shin M.D. [address] [place] [phone] 06/11/2022 Office Visit Ophthalmology Chas Shin M.D. [address] [place] [address] [phone] documented as of this encounter Procedures Procedure Name Priority Date/Time Associated Diagnosis Comme nts HEMATOLOGY/ONCOLOGY Routine 02/13/2022 9:30 AM Re sults for this - BLOOD, EXTERNAL CDT procedure are in LAB RESULTS the results section. HEMATOLOGY/ONCOLOGY Routine 01/28/2022 1:45 PM Re sults for this - BLOOD, EXTERNAL CDT procedure are in LAB RESULTS the results section. documented in this encounter Results (ABNORMAL) Hematology/Oncology - Blood, External Lab Results (02/13/2022 9:30 AM CDT) [facility] gist Method Time Signature EXT Hemoglobin 12.5 12 - 15.5 OTHER (SPECIFY IN NEUROLOGY MANAGER) EXT Leukocytes 2.61 (A) 5 - 10 OTHER (SPECIFY IN NEUROLOGY MANAGER) EXT Absolute 0.82 (A) 1.7 - 7 OTHER Neutrophil Count (SPECIFY IN NEUROLOGY MANAGER) EXT Lymphs 1.45 0.9 - OTHER Absolute 2.90 (SPECIFY IN NEUROLOGY MANAGER) EXT Monocytes 0.20 (A) 0.3 - 0.9 OTHER Absolute (SPECIFY IN NEUROLOGY MANAGER) EXT Eosinophils 0.11 0.0 - 0.5 OTHER Absolute (SPECIFY IN NEUROLOGY MANAGER) EXT Basophils 0.03 0.0 - 0.2 OTHER (SPECIFY IN NEUROLOGY MANAGER) EXT Platelet 260 150 - 450 OTHER Count (SPECIFY IN NEUROLOGY MANAGER) EXT Magnesium 2.1 1.5 - 2.6 OTHER (SPECIFY IN NEUROLOGY MANAGER) EXT Cholesterol, 225 (A) 90 - 199 OTHER Total, S (SPECIFY IN NEUROLOGY MANAGER) EXT 107 40 - 149 OTHER Triglycerides, S (SPECIFY IN NEUROLOGY MANAGER) EXT Cholesterol, 53 >=50 OTHER HDL, S (SPECIFY IN NEUROLOGY MANAGER) EXT LDL 151 <100 OTHER Cholesterol (SPECIFY IN NEUROLOGY MANAGER) EXT TSH, 0.015 (A) 0.270 - OTHER Sensitive 4.2 (SPECIFY IN NEUROLOGY MANAGER) Specimen (Source) Anatomical Collection Method Collection Time Re ceived Time Location / / Volume Laterality Blood 02/13/2022 9:30 AM CDT Narrative This result has an attachment that is no t available. Historical Provider LAB BLOOD NON ADD-ON Performing Organization Address City/State/ZIP Code Phon e Number OTHER (SPECIFY IN NEUROLOGY MANAGER) OTHER (SPECIFY IN NEUROLOGY MANAGER) N/A (ABNORMAL) Hematology/Oncology - Blood, External Lab Results (01/28/2022 1:45 PM CDT) [facility] gist Method Time Signature EXT Hemoglobin 10.9 (A) 12.0 - OTHER 15.5 (SPECIFY IN NEUROLOGY MANAGER) EXT Leukocytes 8.01 5.0 - 10.0 OTHER (SPECIFY IN NEUROLOGY MANAGER) EXT Absolute 3.29 1.70 - 7.0 OTHER Neutrophil Count (SPECIFY IN NEUROLOGY MANAGER) EXT Lymphs 3.97 (A) 0.90 - OTHER Absolute 2.90 (SPECIFY IN NEUROLOGY MANAGER) EXT Platelet 360 150 - 450 OTHER Count (SPECIFY IN NEUROLOGY MANAGER) EXT AST 35 12 - 35 OTHER (SPECIFY IN NEUROLOGY MANAGER) EXT ALT 21 4 - 35 OTHER (SPECIFY IN NEUROLOGY MANAGER) EXT Alkaline 53 40 - 150 OTHER Phosphatase (SPECIFY IN NEUROLOGY MANAGER) EXT Bilirubin, 0.5 0.1 - 1.5 OTHER Total mg/dL (SPECIFY IN NEUROLOGY MANAGER) EXT Albumin 3.9 3.3 - 5.0 OTHER g/dL (SPECIFY IN NEUROLOGY MANAGER) EXT Sodium 134 (A) 135 - 149 OTHER mmol/L (SPECIFY IN NEUROLOGY MANAGER) EXT Potassium 4.1 3.6 - 5.1 OTHER (SPECIFY IN NEUROLOGY MANAGER) EXT Calcium, 8.6 8.4 - 10.6 OTHER Total (SPECIFY IN NEUROLOGY MANAGER) EXT Creatinine 0.7 0.5 - 1.5 OTHER mg/dL (SPECIFY IN NEUROLOGY MANAGER) EXT Glucose, 180 104 60 - 115 OTHER Min (SPECIFY IN NEUROLOGY MANAGER) Specimen (Source) Anatomical Collection Method Collection Time Re ceived Time Location / / Volume Laterality Blood 01/28/2022 1:45 PM CDT Historical Provider LAB BLOOD NON ADD-ON Performing Organization Address City/State/ZIP Code Phon e Number OTHER (SPECIFY IN NEUROLOGY MANAGER) OTHER (SPECIFY IN NEUROLOGY MANAGER) N/A documented in this encounter Visit Diagnoses Not on filedocumented in this encounter
--- OUTSIDE RECORDS SUMMARY | 2022-04-10 09:40 | XMS_ITS | Encounter Summary ---
:1970 Author Organization [facility] Address [address] [place] [address] Care Team Providers Name Role Phone Unavailable Primary Care Provider Unavailable Encounter Details Date Type Department Care Team Description 02/12/2022 Clinical Communication Department of Oncology Farzana Allen, in [place] [address] [address] [facility] [address] [place] [phone] Social History Tobacco Use Types Packs/Day Years [...] level of school Master's degree (e.g., M Dmoingo, MS, 01/07/2022 you have completed or the highest Maulik, MEd, RAILROAD SIGNAL AND SWITCH OPERATOR, 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 Sex Assigned at Date Recorded Female 01/07/2022 11:11 AM CDT documented as of this encounter Plan of Treatment Upcoming Encounters Date Type Specialty Care Team Description 05/03/2022 Telemedicine Clinical Genomics Sanya Mehta M.D. [address] [place] [address] [phone] 05/06/2022 Clinical Communication Admitting/Central Scheduling 05/09/2022 Office Visit Oncology Farzana Allen M.D. [address] [place] [address] [phone] 05/17/2022 Clinical Communication Admitting/Central Scheduling 05/21/2022 Lab Laboratory Medicine Vini Maki M.D., Ph.D. [address] [place] [address] [phone] 05/21/2022 Appointment Radiology Vini Maki M.D., Ph.D. [address] [place] [phone] 05/21/2022 Office Visit Oncology Vini Maki M.D., Ph.D. [address] [place] [phone] 06/11/2022 Ancillary Procedure Ophthalmology Chas Shin M.D. [address] [place] [address] [phone] 06/11/2022 Ancillary Procedure Ophthalmology Chas Shin M.D. [address] [place] [phone] 06/11/2022 Office Visit Ophthalmology Chas Shin M.D. [address] [place] [phone] documented as of this encounter Visit Diagnoses Not on filedocumented in this encounter
--- OUTSIDE RECORDS SUMMARY | 2022-04-10 09:40 | XMS_ITS | Encounter Summary ---
:1970 Author Organization [facility] Address [address] [place] [address] Care Team Providers Name Role Phone Unavailable Primary Care Provider Unavailable Reason for Visit Radiation Therapy (Routine) - Closed Specialty Diagnoses / Procedures Referred By Contact Refer red To Contact Diagnoses Malignant Neoplasm Of Brain (HCC) Stephanie Gleason M.D. [facility] Radiation Oncology Procedures Prior Auth Rad Tx CT IMRT COMPLEX [address] [place] [phone] [facility] [place] [address] Referral ID Status Reason Start Date Expiration Date Visits Requ ested Visits Authorized [id number] Closed 01/31/2022 12/31/2022 30 30 Encounter Details Date Type Department Care Team Description 02/21/2022 Hospital Encounter Department of Radiation Jacquelyn Gleason I., [place] [address] [facility] [address] [place] [phone] Social History Tobacco Use Types Packs/Day Years [...] have completed or the highest Maulik, MEd, UTILITY WORKER FILM PROCESSING, 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 Sex Assigned [...] Telemedicine Clinical Genomics Sanya Mehta M.D. [address] [place] [phone] 05/06/2022 Clinical Communication Admitting/Central Scheduling 05/09/2022 Office Visit Oncology Farzana Allen M.D. [address] [place] [phone] 05/17/2022 Clinical Communication Admitting/Central Scheduling 05/21/2022 Lab Laboratory Medicine Vini Maki M.D., Ph.D. [address] [place] [phone] 05/21/2022 Appointment Radiology Vini Maki M.D., Ph.D. [address] [place] [phone] 05/21/2022 Office Visit Oncology Vini Maki M.D., Ph.D. [address] [place] [phone] 06/11/2022 Ancillary Procedure Ophthalmology Chas Shin M.D. [address] [place] [phone] 06/11/2022 Ancillary Procedure Ophthalmology Chas Shin M.D. [address] [place] [phone] 06/11/2022 Office Visit Ophthalmology Chas Shin M.D. [address] [place] [phone] documented as of this encounter Visit Diagnoses Not on filedocumented in this encounter
--- OUTSIDE RECORDS SUMMARY | 2022-04-10 09:40 | XMS_ITS | Encounter Summary ---
:1970 Author Organization [facility] Address [address] [place] [address] Care Team Providers Name Role Phone Unavailable Primary Care Provider Unavailable Reason for Visit Outpatient (Routine) - Closed Specialty Diagnoses / Procedures Referred By Contact Refer red To Contact Social Work Karthikeyan Cedeno M.D. [address] [phone] Referral ID Status Reason Start Date Expiration Date Visits Requ ested Visits Authorized [id number] Closed 02/13/2022 02/13/2023 1 1 Encounter Details Date Type Department Care Team Description 02/19/2022 Telemedicine Department of Oncology Araseli Cedeno M.D. [address] [place] [address] [phone] Canceled (Provider: in [place] E, L.G.SMio, M.S.W. Request) [address] [phone] Social History Tobacco Use Types Packs/Day Years [...] More than 4 times per year 01/07/2022 buddhism services? Do you belong to any clubs [...] have completed or the highest Maulik, MEd, TOWEL FOLDER, 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 Sex Assigned at Date Recorded Female 01/07/2022 11:11 AM CDT documented as of this encounter Plan of Treatment Upcoming Encounters Date Type Specialty Care Team Description 05/03/2022 Telemedicine Clinical Genomics Sanya Mehta M.D. 200 [place] [phone] 05/06/2022 Clinical Communication Admitting/Central Scheduling 05/09/2022 Office Visit Oncology Farzana Allen M.D. 200 [place] [phone] 05/17/2022 Clinical Communication Admitting/Central Scheduling 05/21/2022 Lab Laboratory Medicine Vini Maki M.D., Ph.D. [address] [place] [phone] 05/21/2022 Appointment Radiology Vini Maki M.D., Ph.D. [address] [place] [phone] 05/21/2022 Office Visit Oncology Vini Maki M.D., Ph.D. [address] [place] [phone] 06/11/2022 Ancillary Procedure Ophthalmology Chas Shin M.D. [address] [place] [phone] 06/11/2022 Ancillary Procedure Ophthalmology Chas Shin M.D. [address] [place] [address] [phone] 06/11/2022 Office Visit Ophthalmology Chas Shin M.D. [address] [place] [address] [phone] documented as of this encounter Visit Diagnoses Not on filedocumented in this encounter
--- OUTSIDE RECORDS SUMMARY | 2022-04-10 09:40 | XMS_ITS | Encounter Summary ---
:1970 Author Organization [facility] Address [address] [place] [address] Care Team Providers Name Role Phone Unavailable Primary Care Provider Unavailable Reason for Visit Outpatient (Routine) - Closed Specialty Diagnoses / Procedures Referred By Contact Refer red To Contact Nutrition Diagnoses Astrocytoma (HCC) Farzana Allen M.D. [facility] [address] [place] [phone] Referral ID Status Reason Start Date Expiration Date Visits Requ ested Visits Authorized [id number] Closed 02/07/2022 02/07/2023 1 1 Encounter Details Date Type Department Care Team Description 02/19/2022 Telemedicine Department of Oncology Farzana Allen M.D. [address] [place] [phone] Astrocytoma (HCC) in [facility] Whitney Bran M.S., RDN, LD [address] [place] [phone] [place] [phone] Social History Tobacco Use Types Packs/Day Years [...] or relatives? How often do you attend protestant or More than 4 times per year 01/07/2022 yarsanism services? Do you belong to any clubs or No 01/07/2022 organizations such as protestant groups, unions, [employer] or athletic groups, or school groups? How [...] have completed or the highest Maulik, MEd, CORRECTIONAL THERAPY DIRECTOR, 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 Sex [...] by Whitney Dowling M.S., BLAIR, LD in [facility] to the patient in her home. ASSESSMENT Nutrition Focused Physical Findings Mouth/Esophagus/Throat: altered sense of taste and smell Nausea/Vomiting: she has been using antiemetics earlier in the last in the last week or so due to. Bowels: constipation - senna, prunes Food/Nutrition Related History Diet Experience: She doesn't tolerate milk due to nausea. She also avoid wheat, corn and oats due tocolon irritation related to her blood type. She has been eating salads but finds it difficult to tolerate with nausea. She has been eating tortillas with plant based cheese and artichokes. She sharesconcerns about meal preparation ability. Beverage/fluid intake: She [...] sugars. We also discussed that there is alack of evidence to support changes to our [...] Telemedicine Clinical Genomics Sanya Mehta M.D. [address] [place] [address] [phone] 05/06/2022 Clinical Communication Admitting/Central Scheduling 05/09/2022 Office Visit Oncology Farzana Allen M.D. [address] [place] [address] [phone] 05/17/2022 Clinical Communication Admitting/Central Scheduling 05/21/2022 Lab Laboratory Medicine Vini Maki M.D., Ph.D. [address] [place] [phone] 05/21/2022 Appointment Radiology Vini Maki M.D., Ph.D. [address] [place] [phone] 05/21/2022 Office Visit Oncology Vini Maki M.D., Ph.D. [address] [place] [phone] 06/11/2022 Ancillary Procedure Ophthalmology Chas Shin M.D. [address] [place] [phone] 06/11/2022 Ancillary Procedure Ophthalmology Chas Shin M.D. [address] [place] [phone] 06/11/2022 Office Visit Ophthalmology Chas Shin M.D. [address] [place] [phone] documented as of this encounter Visit Diagnoses Diagnosis Astrocytoma (HCC) documented in this encounter
--- OUTSIDE RECORDS SUMMARY | 2022-04-10 09:40 | XMS_ITS | Encounter Summary ---
:1970 Author Organization [facility] Address [address] [place] [address] Care Team Providers Name Role Phone Unavailable Primary Care Provider Unavailable Reason for Visit Radiation Therapy (Routine) - Closed Specialty Diagnoses / Procedures Referred By Contact Refer red To Contact Diagnoses Malignant Neoplasm Of Brain (HCC) Stephanie Gleason M.D. [facility] Radiation Oncology Procedures Prior Auth Rad Tx [place] IMRT COMPLEX [address] [place] [phone] 1821 [facility] [place] [address] Referral ID Status Reason Start Date Expiration Date Visits Requ ested Visits Authorized [id number] Closed 01/31/2022 12/31/2022 30 30 Encounter Details Date Type Department Care Team Description 02/20/2022 Hospital Encounter Department of Radiation Jacquelyn Gleason I., [place] [address] [facility] [address] [place] [phone] Social History Tobacco Use Types Packs/Day Years [...] or relatives? How often do you attend denominational or More than 4 times per year 01/07/2022 religion services? Do you belong to any clubs or No 01/07/2022 organizations such as denominational groups, unions, fraternal or athletic groups, or [...] have completed or the highest Maulik, MEd, BATTER MIXER HELPER, 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 Sex [...] Telemedicine Clinical Genomics Sanya Mehta M.D. [address] [place] [phone] 05/06/2022 Clinical Communication Admitting/Central Scheduling 05/09/2022 Office Visit Oncology Farzana Allen M.D. [address] [place] [phone] 05/17/2022 Clinical Communication Admitting/Central Scheduling 05/21/2022 Lab Laboratory Medicine Vini Maki M.D., Ph.D. [address] [place] [phone] 05/21/2022 Appointment Radiology Vini Maki M.D., Ph.D. [address] [place] [phone] 05/21/2022 Office Visit Oncology Vini Maki M.D., Ph.D. [address] [place] [phone] 06/11/2022 Ancillary Procedure Ophthalmology Chas Shin M.D. [address] [place] [phone] 06/11/2022 Ancillary Procedure Ophthalmology Chas Shin M.D. [address] [place] [phone] 06/11/2022 Office Visit Ophthalmology Chas Shin M.D. [address] [place] [phone] documented as of this encounter Visit Diagnoses Not on filedocumented in this encounter
--- OUTSIDE RECORDS SUMMARY | 2022-04-10 09:40 | XMS_ITS | Encounter Summary ---
:1970 Author Organization [facility] Address 200 [place] [address] Care Team Providers Name Role Phone Unavailable Primary Care Provider Unavailable Encounter Details Date Type Department Care Team Description 02/19/2022 Orders Only Pharmacy Prior Auth [place] Mikki Rodriguez [phone] Social History Tobacco Use Types Packs/Day Years [...] have completed or the highest Maulik, MEd, EXPANDER, 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 Sex Assigned at Date Recorded Female 01/07/2022 11:11 AM CDT documented as of this encounter Plan of Treatment Upcoming Encounters Date Type Specialty Care Team Description 05/03/2022 Telemedicine Clinical Genomics Sanya Mehta M.D. [address] [place] [address] [phone] 05/06/2022 Clinical Communication Admitting/Central Scheduling 05/09/2022 Office Visit Oncology Farzana Allen M.D. [address] [place] [address] [phone] 05/17/2022 Clinical Communication Admitting/Central Scheduling 05/21/2022 Lab Laboratory Medicine Vini Maki M.D., Ph.D. [address] [place] [phone] 05/21/2022 Appointment Radiology Vini Maki M.D., Ph.D. [address] [place] [phone] 05/21/2022 Office Visit Oncology Vini Maki M.D., Ph.D. [address] [place] [phone] 06/11/2022 Ancillary Procedure Ophthalmology Chas Shin M.D. [address] [place] [phone] 06/11/2022 Ancillary Procedure Ophthalmology Chas Shin M.D. [address] [place] [phone] 06/11/2022 Office Visit Ophthalmology Chas Shin M.D. [address] [place] [phone] documented as of this encounter Visit Diagnoses Not on filedocumented in this encounter
--- OUTSIDE RECORDS SUMMARY | 2022-04-10 09:40 | XMS_ITS | Encounter Summary ---
:1970 Author Organization [facility] Address [address] [place] [address] Care Team Providers Name Role Phone Unavailable Primary Care Provider Unavailable Reason for Visit Outpatient (Routine) - Closed Specialty Diagnoses / Procedures Referred By Contact Refer red To Contact Social Work Karthikeyan Cedeno M.D. [facility] [address] [place] [phone] Referral ID Status Reason Start Date Expiration Date Visits Requ ested Visits Authorized [id number] Closed 02/13/2022 02/13/2023 1 1 Encounter Details Date Type Department Care Team Description 02/20/2022 Telemedicine Department of Oncology Araseli Cedeno M.D. [address] [place] [address] [phone] Malignant Neoplasm Of Brain (HCC) (Prima ry Dx); in [facility] Hamida Ram L.G.SMio, M.S.W. Counseling Phase Of Life Problem [address] [phone] Social History Tobacco Use Types Packs/Day Years [...] have completed or the highest Maulik, MEd, HANSARD REPORTER, 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 Sex [...] packet of information in the mail from [employer] requesting supporting documents for her Social Security Disability application. Her plan is to apply for Medicaid & then to gather the supporting d ocuments requested by [employer]. Mother- Libby is feeling overwhelmed. Libby went [...] cancer care journey here at [facility]. Ms. Cedillo will reach out if questions or concerns arise. Ms. Cedillo has my contact information. Encouraged Ms. Cedillo to reach out if questions, concerns or desire for supportive counseling arise prior to our next scheduled appointment. OBJECTIVE Re-education provided about Social Work role & availability within Medical Oncology Care Team. Provided education about community resources such as Vision Loss Jaco Sol[employer] and [place] [employer]. Mental Status [...] following Community Resources Vision Loss Resources & [employer] ~Reflective Listening PLAN 1. [...] Clinical Genomics Sanya Mehta M.D. [address] [place] [phone] 05/06/2022 Clinical Communication Admitting/Central Scheduling 05/09/2022 Office Visit Oncology Farzana Allen M.D. [address] [place] [phone] 05/17/2022 Clinical Communication Admitting/Central Scheduling 05/21/2022 Lab Laboratory Medicine Vini Maki M.D., Ph.D. [address] [place] [phone] 05/21/2022 Appointment Radiology Vini Maki M.D., Ph.D. [address] [place] [phone] 05/21/2022 Office Visit Oncology Vini Maki M.D., Ph.D. [address] [place] [address] [phone] 06/11/2022 Ancillary Procedure Ophthalmology Chas Shin M.D. [address] [place] [address] [phone] 06/11/2022 Ancillary Procedure Ophthalmology Chas Shin M.D. [address] [place] [address] [phone] 06/11/2022 Office Visit Ophthalmology Chas Shin M.D. [address] [place] [address] [phone] documented as of this encounter Visit Diagnoses Diagnosis Malignant Neoplasm Of Brain (HCC) - Prim uyen Counseling Phase Of Life Problem documented in this encounter
--- OUTSIDE RECORDS SUMMARY | 2022-04-10 09:41 | XMS_ITS | Encounter Summary ---
:1970 Author Organization [facility] Address [address] [place] [address] Care Team Providers Name Role Phone Unavailable Primary Care Provider Unavailable Reason for Referral Radiation Therapy (Routine) - Authorized Specialty Diagnoses / Procedures Referred By Contact Refer red To Contact Diagnoses Malignant Neoplasm Of Brain (HCC) Stephanie Gleason M.D. [facility] Radiation Oncology Procedures Management Visit [address] [facility], [place] [phone] [place] [address] Referral ID Status Reason Start Date Expiration Date Visits V isits Requested Authorized [id number] Authorized 12/31/2021 12/31/2022 10 10 Reason for Visit Radiation Therapy (Routine) - Authorized Specialty Diagnoses / Procedures Referred By Contact Refer red To Contact Diagnoses Malignant Neoplasm Of Brain (HCC) Stephanie Gleason M.D. [facility] Radiation Oncology Procedures Management Visit [address] [place] [phone] [place] [address] Referral ID Status Reason Start Date Expiration Date Visits V isits Requested Authorized [id number] Authorized 12/31/2021 12/31/2022 10 10 Encounter Details Date Type Department Care Team Description 02/05/2022 - Hospital Encounter Department of Stephanie Gleason Neoplasm 02/06/2022 Radiation Oncology Sebastian Marcelino Of Brain (HCC) in [place], [facility] [address] [place], [place] 1821 [facility] [address] [place], [place] [phone] (Work) [phone] Social History Tobacco Use Types Packs/Day Years [...] have completed or the highest Maulik, MEd, PHYS THERAPIST, 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 Sex Assigned [...] TURMERIC ORAL Take 1 capsule by 0 /02/2022 mouth daily. gabapentin (NEURONTIN) Take 2 capsules [...] fluent. We will continue with radiation as plannedand monitor weekly. They would like to see if they can taper off the Gabapentin. On February 06, I explained a 3 day taper of 200mg [...] (cGy) First Treatment Last Treatment Elapsed Days [id number] [phone] 01/31/2022 02/04/2022 4 Course Summary 01/31/2022 02/04/2022 4 The patient was seen and examined today with Dr. Gleason. The patient reports that her intermittent headaches remain and slight worse in the evening. Patient takes Tylenol in the evening and this helps manage her headache. Patient takes Tylenol in the afternoons on occasion. Patient denies fevers, nausea or vomiting. She continues to struggle some with word finding. She notes that she is able to write with more ease than speaking. She is able to read graphic novels and large print books well. Her long distance vision has improved. She still struggles with vision close up. She does notice some pain to touch to the vein in her left wrist since removal of PIV. She has slight pain to the vein of right wrist since removal of PIV as well. Pain is only to touchand she has applied heat and has taken [...] Telemedicine Clinical Genomics Sanya Mehta M.D. 200 [place] [address] 05/06/2022 Clinical Communication Admitting/Central Scheduling 05/09/2022 Office Visit Oncology Farzana Allen M.D. [address] [place] [phone] 05/17/2022 Clinical Communication Admitting/Central Scheduling 05/21/2022 Lab Laboratory Medicine Vini Maki M.D., Ph.D. [address] [place] [phone] 05/21/2022 Appointment Radiology Vini Maki M.D., Ph.D. [address] [place] [phone] 05/21/2022 Office Visit Oncology Vini Maki M.D., Ph.D. [address] [place] [phone] 06/11/2022 Ancillary Procedure Ophthalmology Chas Shin M.D. [address] [place] [phone] 06/11/2022 Ancillary Procedure Ophthalmology Chas Shin M.D. [address] [place] [phone] 06/11/2022 Office Visit Ophthalmology Chas Shin M.D. [address] [place] [phone] Scheduled Orders Name Type Priority Associated Diagnoses Order S chedule Management Visit Radiation Oncology Routine Malignant Neoplasm Once for 1 Of Brain (HCC) Occurrences s tarting 02/05/2022 unti l 02/05/2022 documented as of this encounter Visit Diagnoses Diagnosis Malignant Neoplasm Of Brain (HCC) documented in this encounter
--- OUTSIDE RECORDS SUMMARY | 2022-04-10 09:41 | XMS_ITS | Encounter Summary ---
:1970 Author Organization [facility] Address [address] [place] [address] Care Team Providers Name Role Phone Unavailable Primary Care Provider Unavailable Reason for Visit Radiation Therapy (Routine) - Closed Specialty Diagnoses / Procedures Referred By Contact Refer red To Contact Diagnoses Malignant Neoplasm Of Brain (HCC) Stephanie Gleason M.D. [facility] Radiation Oncology Procedures Prior Auth Rad Tx SD IMRT COMPLEX [address] [place] [phone] [facility] [place] [address] Referral ID Status Reason Start Date Expiration Date Visits Requ ested Visits Authorized [id number] Closed 01/31/2022 12/31/2022 30 30 Encounter Details Date Type Department Care Team Description 02/11/2022 Hospital Encounter Department of Radiation Jacquelyn Gleason I., [place]cology [place] 200 [address] [facility] 1821 [place] [phone] [phone] Social History Tobacco Use Types Packs/Day Years [...] have completed or the highest Maulik, MEd, MISSILE MECHANIC, 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 Sex Assigned [...] Telemedicine Clinical Genomics Sanya Mehta M.D. [address] [place] [phone] 05/06/2022 Clinical Communication Admitting/Central Scheduling 05/09/2022 Office Visit Oncology Farzana Allen M.D. [address] [place] [phone] 05/17/2022 Clinical Communication Admitting/Central Scheduling 05/21/2022 Lab Laboratory Medicine Vini Maki M.D., Ph.D. [address] [place] [phone] 05/21/2022 Appointment Radiology Vini Maki M.D., Ph.D. [address] [place] [phone] 05/21/2022 Office Visit Oncology Vini Maki M.D., Ph.D. [address] [place] [phone] 06/11/2022 Ancillary Procedure Ophthalmology Chas Shin M.D. [address] [place] [phone] 06/11/2022 Ancillary Procedure Ophthalmology Chas Shin M.D. [address] [place] [phone] 06/11/2022 Office Visit Ophthalmology Chas Shin M.D. [address] [place] [phone] documented as of this encounter Visit Diagnoses Not on filedocumented in this encounter
--- OUTSIDE RECORDS SUMMARY | 2022-04-10 09:41 | XMS_ITS | Encounter Summary ---
:1970 Author Organization [facility] Address [address] [place] [address] Care Team Providers Name Role Phone Unavailable Primary Care Provider Unavailable Reason for Referral Outpatient (Routine) - Authorized Specialty Diagnoses / Procedures Referred By Contact Refer red To Contact Oncology Farzana Allen M. D. [address] [phone] Referral ID Status Reason Start Date Expiration Date Visits V isits Requested Authorized [id number] Authorized 02/07/2022 02/07/2023 1 1 Outpatient (Routine) - Closed Specialty Diagnoses / Procedures Referred By Contact Refer red To Contact Nutrition Diagnoses Astrocytoma (HCC) Farzana Aleln M.D. [address] [phone] Referral ID Status Reason Start Date Expiration Date Visits Requ ested Visits Authorized [id number] Closed 02/07/2022 02/07/2023 1 1 Reason for Visit Outpatient (Routine) - Closed Specialty Diagnoses / Procedures Referred By Contact Refer red To Contact Medical Oncology / Diagnoses Astrocytoma (HCC) Karthikeyan Cedeno M.D. [facility] Oncology [address] [place] [phone] Referral ID Status Reason Start Date Expiration Date Visits Requ ested Visits Authorized [id number] Closed 01/03/2022 01/03/2023 1 1 Encounter Details Date Type Department Care Team Description 02/07/2022 Comprehensive Visit Department of Farzana Allen (HCC) Oncology in Sebastian Ferro [place], [place] [address] [facility] [address] [place] [phone] Social History Tobacco Use Types Packs/Day Years [...] have completed or the highest Maulik, MEd, LUMBER CARRIER OPERATOR, 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 Sex Assigned at Date Recorded Female 01/07/2022 11:11 AM CDT documented as of this encounter Consult Notes Farzana Allen M.D. - 02/07/2022 1:20 PM CDT Images from the original note were not included. Mia Richardson is seen in the [facility] clinic for consultation requested Karthikeyan Hamilton M.D. [address] [place] [phone] Primary Oncologist: No care crew team member to display PCP: No primary [...] sense. The patient was taken to the [facility] with altered mental status. The patient [...] with steroids and Keppra and transferred to [facility]. 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 See comment. B. 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 See comment. Final Diagnosis: [...] Dr. Shelbie Ackerman at the [facility]. Discussed that it was okay for the patient to proceed with chemotherapy and radiation 1 month from biopsy date. Also discussed that itwas okay for the patient to travel on a commercial air flight approximately 1 month from biopsy as she was planning for a trip to [place] with her significant other in December. 12/24/[address] Shelbie Ackerman who reviewed the patient's case with Dr. Dunlap and he recommended against additional surgery. Dr. Macias recommended proceeding with a combination of radiation therapy plus temozolomide. Referral to Radiation Oncology at [facility] in [place]. 01/10/2022 Surgery and Procedures Left temporoparietal stereotactic craniotomy with tumor resection, speech mapping with Dr. Ivey. PATHOLOGY: A-D. 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 See comment. 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 The biopsy specimen lacked microvascular proliferation and tumor necrosis. By immunohistochemistry, the tumor cells were negative for IDH1-R132H and showed retained ATRX expression. 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 01/10/2022 Imaging MRI of [...] Master's degree (e.g., MA, MS, Maulik, MEd, LUMBER CARRIER OPERATOR, MOISE) Occupational History ??? Not on file [...] than three times a week ??? Attends Muslim Services: More than 4 times per year [...] than three times a week ??? Attends Muslim Services: More than 4 times per year [...] made some dietary changes in that direction. Willrefer to hot strip mill supervisor to help with macros/diet plan; book refs [...] mag. 8. Labs Ordered: panel ordered at [facility]. 9. Follow-Up: Return to integrative medicine clinic in 3 months/prn. 60 minutes were spent (total time) which includes FTF time as well as chart review, review of labs and other tests and communication with other providers. documented in this encounter Plan of Treatment Upcoming Encounters Date Type Specialty Care Team Description 05/03/2022 Telemedicine Clinical Genomics Sanya Mehta M.D. [address] [place] [phone] 05/06/2022 Clinical Communication Admitting/Central Scheduling 05/09/2022 Office Visit Oncology Farzana Allen M.D. [address] [place] [phone] 05/17/2022 Clinical Communication Admitting/Central Scheduling 05/21/2022 Lab Laboratory Medicine Vini Maki M.D., Ph.D. [address] [place] [phone] 05/21/2022 Appointment Radiology Vini Maki M.D., Ph.D. [address] [place] [phone] 05/21/2022 Office Visit Oncology Vini Maki M.D., Ph.D. [address] [place] [phone] 06/11/2022 Ancillary Procedure Ophthalmology Chas Shin M.D. [address] [place] [phone] 06/11/2022 Ancillary Procedure Ophthalmology Chas Shin M.D. 200 [place] [phone] 06/11/2022 Office Visit Ophthalmology Chas Shin M.D. 200 [place] [phone] Scheduled Referrals Name Type Priority Associated Diagnoses [...]
--- OUTSIDE RECORDS SUMMARY | 2022-04-10 09:41 | XMS_ITS | Encounter Summary ---
:1970 Author Organization [facility] Address [address] [place] [address] Care Team Providers Name Role Phone Unavailable Primary Care Provider Unavailable Encounter Details Date Type Department Care Team Description 02/02/2022 Clinical Communication Department of Oncology Jonathan West in Rusty Turner M.D. [place] [address] [facility] 200 [place] [phone] Social History Tobacco Use Types Packs/Day Years [...] have completed or the highest Maulik, MEd, METAL ROASTER, 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 Sex Assigned at Date Recorded Female 01/07/2022 11:11 AM CDT documented as of this encounter Miscellaneous Notes Telephone Encounter - Jonatahn Amaya M.D. - 02/02/2022 5:28 PM CDT Received a call this afternoon as the oncology on-call provider from the patient and her drafting detailer. They indicated that they had received the [...] 05/03/2022 Telemedicine Clinical Gen[place] [address] 05/06/2022 Clinical Communication Admitting/Central Scheduling 05/09/2022 Office Visit Oncology Farzana Allen M.D. [address] [place] [phone] 05/17/2022 Clinical Communication Admitting/Central Scheduling 05/21/2022 Lab Laboratory Medicine Vini Maki M.D., Ph.D. [address] [place] [phone] 05/21/2022 Appointment Radiology Vini Maki M.D., Ph.D. [address] [place] [phone] 05/21/2022 Office Visit Oncology Vini Maki M.D., Ph.D. [address] [place] [phone] 06/11/2022 Ancillary Procedure Ophthalmology Chas Shin M.D. [address] [place] [phone] 06/11/2022 Ancillary Procedure Ophthalmology Chas Shin M.D. [address] [place] [phone] 06/11/2022 Office Visit Ophthalmology Chas Shin M.D. [address] [place] [phone] documented as of this encounter Visit Diagnoses Not on filedocumented in this encounter
--- OUTSIDE RECORDS SUMMARY | 2022-04-10 09:41 | XMS_ITS | Encounter Summary ---
:1970 Author Organization [facility] Address [address] [place] [address] Care Team Providers Name Role Phone Unavailable Primary Care Provider Unavailable Reason for Visit Reason Comments Appointment Pre-visit Testing Orders Encounter Details Date Type Department Care Team Description 01/31/2022 Clinical Department of Kip Appointment; Communication Ophthalmology in Chas Ferro M.D. Pre-visit Testing Ashkan Mcneil a [address] [facility] Orders [address] [place], [place] [address] [phone] Social History Tobacco Use Types Packs/Day Years [...] More than 4 times per year 01/07/2022 restoration services? Do you belong to any clubs [...] have completed or the highest Maulik, MEd, OUTBOARD SYSTEM OPERATOR, 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 Sex [...] 05/03/2022 Telemedicine Clinical Genomics Sanya Mehta M.D. [address] [place] [phone] 05/06/2022 Clinical Communication Admitting/Central Scheduling 05/09/2022 Office Visit Oncology Farzana Allen M.D. [address] [place] [phone] 05/17/2022 Clinical Communication Admitting/Central Scheduling 05/21/2022 Lab Laboratory Medicine Vini Maki M.D., Ph.D. [address] [place] [phone] 05/21/2022 Appointment Radiology Vini Maki M.D., Ph.D. [address] [place] [phone] 05/21/2022 Office Visit Oncology Vini Maki M.D., Ph.D. [address] [place] [phone] 06/11/2022 Ancillary Procedure Ophthalmology Chas Shin M.D. [address] [place] [phone] 06/11/2022 Ancillary Procedure Ophthalmology Chas Shin M.D. [address] [place] [phone] 06/11/2022 Office Visit Ophthalmology Chas Shin M.D. [address] [place] [phone] documented as of this encounter Results Optical Coherence Tomography - [...] Shin M.D. OPHTH TOMOGRAPHY Performing Organization Address [facility]/ZIP Code Phon e Number OPHTHALMOLOGY IMAGING EXAM Automated VF - Extended - OU - [...] M.D. OPHTH VISUAL FIELD Performing Organization Address City/[facility]/ZIP Code Phon e Number OPHTHALMOLOGY IMAGING EXAM documented in this encounter Visit Diagnoses Diagnosis Malignant Neoplasm Of Brain (HCC) - Prim uyen Malignant Neoplasm Of Brain (HCC) Malignant Neoplasm Of Brain (HCC) documented in this encounter
--- OUTSIDE RECORDS SUMMARY | 2022-04-10 09:41 | XMS_ITS | Encounter Summary ---
:1970 Author Organization [facility] Address [address] [place] [address] Care Team Providers Name Role Phone Unavailable Primary Care Provider Unavailable Reason for Visit Radiation Therapy (Routine) - Closed Specialty Diagnoses / Procedures Referred By Contact Refer red To Contact Diagnoses Malignant Neoplasm Of Brain (HCC) Stephanie Gleason M.D. [facility] Radiation Oncology Procedures Prior Auth Rad Tx [place] IMRT COMPLEX [address] [place] [address] 1821 [facility] [place] [address] Referral ID Status Reason Start Date Expiration Date Visits Requ ested Visits Authorized [id number] Closed 01/31/2022 12/31/2022 30 30 Encounter Details Date Type Department Care Team Description 02/07/2022 Hospital Encounter Department of Radiation Jacquelyn Gleason I., [place]cology [place] [address] [facility] 1821 [place] [phone] Social History Tobacco Use Types Packs/Day Years [...] have completed or the highest Maulik, MEd, INDEPENDENT CONSULTANT, 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 Sex [...] Clinical Genomics Sanya Mehta M.D. [address] [place] [phone] 05/06/2022 Clinical Communication Admitting/Central Scheduling 05/09/2022 Office Visit Oncology Farzana Allen M.D. [address] [place] [phone] 05/17/2022 Clinical Communication Admitting/Central Scheduling 05/21/2022 Lab Laboratory Medicine Vini Maki M.D., Ph.D. [address] [place] [phone] 05/21/2022 Appointment Radiology Vini Maki M.D., Ph.D. [address] [place] [phone] 05/21/2022 Office Visit Oncology Vini Maki M.D., Ph.D. [address] [place] [phone] 06/11/2022 Ancillary Procedure Ophthalmology Chas Shin M.D. [address] [place] [phone] 06/11/2022 Ancillary Procedure Ophthalmology Chas Shin M.D. [address] [place] [phone] 06/11/2022 Office Visit Ophthalmology Chas Shin M.D. [address] [place] [phone] documented as of this encounter Visit Diagnoses Not on filedocumented in this encounter
--- OUTSIDE RECORDS SUMMARY | 2022-04-10 09:41 | XMS_ITS | Encounter Summary ---
:1970 Author Organization [facility] Address [address] [place] [address] Care Team Providers Name Role Phone Unavailable Primary Care Provider Unavailable Reason for Referral Outpatient (Routine) - Closed Specialty Diagnoses / Procedures Referred By Contact Refer red To Contact Social Work Karthikeyan Cedeno M.D. [facility] [address] [place] [phone] Referral ID Status Reason Start Date Expiration Date Visits Requ ested Visits Authorized [id number] Closed 02/13/2022 02/13/2023 1 1 Reason for Visit Outpatient (Routine) - Closed Specialty Diagnoses / Procedures Referred By Contact Refer red To Contact Social Work Diagnoses Tumor Brain (HCC) [facility] [address] [place] [phone] Referral ID Status Reason Start Date Expiration Date Visits Requ ested Visits Authorized [id number] Closed 01/30/2022 01/30/2023 1 1 Encounter Details Date Type Department Care Team Description 02/12/2022 Telemedicine Department of Oncology Sa miquel Valle P.A.-C., M.S. [address] [place] [phone] Tumor Brain (HCC) in [facility] Hamida Ram L.G.S.W., M.S.W. 200 [place] [address] Social History Tobacco Use Types Packs/Day Years [...] have completed or the highest Maulik, MEd, CLERICAL CLERK, 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 Sex [...] Souza is feeling overwhelmed. Libby asked if customs entry writer could write a check list of things to do. [employer] will write a check list & [...] her health insurance options through her employer. [employer] will also send a portal message with [...] counseling throughout cancer care journey here at [facility]. Ms. Cedillo & osei Souza were accepting of offer. Provided my contact information. Encouraged them to reach out if questions, concerns or desire for supportive counseling arise prior to ournext scheduled appointment. OBJECTIVE Education provided about Social [...] 51 year old, female, whom resides in [place], [place]. Her mom- Libby has been staying [...] such consultation during cancer care here at [facility]. Interventions Provided: ~Supportive Counseling Regarding the experience [...] via real-time audio technology by Evon Coreas M.S.WSanjuanita to thepatient in patient's home. This [...] Telemedicine Clinical Genomics Sanya Mehta M.D. [address] [place] [phone] 05/06/2022 Clinical Communication Admitting/Central Scheduling 05/09/2022 Office Visit Oncology Farzana Allen M.D. [address] [place] [phone] 05/17/2022 Clinical Communication Admitting/Central Scheduling 05/21/2022 Lab Laboratory Medicine Vini Maki M.D., Ph.D. [address] [place] [phone] 05/21/2022 Appointment Radiology Vini Maki M.D., Ph.D. [address] [place] [phone] 05/21/2022 Office Visit Oncology Vini Maki M.D., Ph.D. [address] [place] [phone] 06/11/2022 Ancillary Procedure Ophthalmology Chas Shin M.D. [address] [place] [phone] 06/11/2022 Ancillary Procedure Ophthalmology Chas Shin M.D. [address] [place] [phone] 06/11/2022 Office Visit Ophthalmology Chas Shin M.D. [address] [place] [phone] Scheduled Referrals Name Type Priority Associated Diagnoses Order S [facility] [employer] Outpatient Referral Routine Expected : office visit 02/19/2022, (clinic) Expires: 05/16/2023 documented as of this encounter Visit Diagnoses Diagnosis Tumor Brain (HCC) documented in this encounter
--- OUTSIDE RECORDS SUMMARY | 2022-04-10 09:41 | XMS_ITS | Encounter Summary ---
:1970 Author Organization [facility] Address [address] [place] [address] Care Team Providers Name Role Phone Unavailable Primary Care Provider Unavailable Encounter Details Date Type Department Care Team Description 02/08/2022 Orders Only Department of Oncology Latanya Michael A strocytoma (HCC) in [place], R.N., O.C.N. (Primary Dx) [address] [place] [phone] Social History Tobacco Use Types Packs/Day Years [...] have completed or the highest Maulik, MEd, OPTOMETRIC TECHNICIAN, 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 Sex Assigned at Date Recorded Female 01/07/2022 11:11 AM CDT documented as of this encounter Plan of Treatment Upcoming Encounters Date Type Specialty Care Team Description 05/03/2022 Telemedicine Clinical Genomics Sanya Mehta M.D. [address] [place] [phone] 05/06/2022 Clinical Communication Admitting/Central Scheduling 05/09/2022 Office Visit Oncology Farzana Allen M.D. [address] [place] [address] [phone] 05/17/2022 Clinical Communication Admitting/Central Scheduling 05/21/2022 Lab Laboratory Medicine Vini Maki M.D., Ph.D. [address] [place] [address] [phone] 05/21/2022 Appointment Radiology Vini Maki M.D., Ph.D. [address] [place] [phone] 05/21/2022 Office Visit Oncology Vini Maki M.D., Ph.D. [address] [place] [address] [phone] 06/11/2022 Ancillary Procedure Ophthalmology Chas Shin M.D. [address] [place] [phone] 06/11/2022 Ancillary Procedure Ophthalmology Chas Shin M.D. 200 [place] [phone] 06/11/2022 Office Visit Ophthalmology Chas Shin M.D. 200 [place] [phone] Scheduled Orders Name Type Priority Associated Diagnoses Order S chedule CBC with Differential, Lab Routine Astrocytoma (HCC) 6 Occurrences starting Blood 02/08/2022 unti l 02/08/2023 documented as of this encounter Visit Diagnoses Diagnosis Astrocytoma (HCC) - Primary documented in this encounter
--- OUTSIDE RECORDS SUMMARY | 2022-04-10 09:41 | XMS_ITS | Encounter Summary ---
:1970 Author Organization [facility] Address [address] [place] [address] Care Team Providers Name Role Phone Unavailable Primary Care Provider Unavailable Reason for Visit Reason Comments Med Refill temozolomide, ondansetron Encounter Details Date Type Department Care Team Description 01/31/2022 Clinical Communication Department of Latanya Michael Med Refill Oncology in D, R.N., O.C.N. (temozolomide, [place], [facility] [address] [facility] ondansetron ) [place], [place] [address] [facility] [address] [place] [address] Social History Tobacco Use Types Packs/Day Years [...] or relatives? How often do you attend sabianist or More than 4 times per year 01/07/2022 denominational services? Do you belong to any clubs or No 01/07/2022 organizations such as sabianist groups, unions, fraternal or athletic groups, or [...] have completed or the highest Maulik, MEd, LEADING FIREFIGHTER, 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 Sex Assigned [...] 11:12 AM CDT Received a call from [facility] asking that the temozolomide 140mg, 20mg and the ondansetron 8mg be redirected to [facility] [address] documented in this encounter Plan of Treatment Upcoming Encounters Date Type Specialty Care Team Description 05/03/2022 Telemedicine Clinical Genomics Sanya Mehta M.D. [address] [place] [phone] 05/06/2022 Clinical Communication Admitting/Central Scheduling 05/09/2022 Office Visit Oncology Farzana Allen M.D. [address] [place] [phone] 05/17/2022 Clinical Communication Admitting/Central Scheduling 05/21/2022 Lab Laboratory Medicine Vini Maki M.D., Ph.D. [address] [place] [phone] 05/21/2022 Appointment Radiology Vini Maki M.D., Ph.D. [address] [place] [phone] 05/21/2022 Office Visit Oncology Vini Maki M.D., Ph.D. [address] [place] [phone] 06/11/2022 Ancillary Procedure Ophthalmology Chas Shin M.D. [address] [place] [phone] 06/11/2022 Ancillary Procedure Ophthalmology Chas Shin M.D. [address] [place] [phone] 06/11/2022 Office Visit Ophthalmology Chas Shin M.D. [address] [place] [phone] documented as of this encounter Visit Diagnoses Diagnosis Malignant Neoplasm Of Brain (HCC) documented in this encounter
--- OUTSIDE RECORDS SUMMARY | 2022-04-10 09:41 | XMS_ITS | Encounter Summary ---
:1970 Author Organization [facility] Address [address] [place] [address] Care Team Providers Name Role Phone Unavailable Primary Care Provider Unavailable Reason for Visit Radiation Therapy (Routine) - Closed Specialty Diagnoses / Procedures Referred By Contact Refer red To Contact Diagnoses Malignant Neoplasm Of Brain (HCC) Stephanie Gleason M.D. [facility] Radiation Oncology Procedures Prior Auth Rad Tx [place] IMRT COMPLEX [address] [place] [address] [address] [place] [address] Referral ID Status Reason Start Date Expiration Date Visits Requ ested Visits Authorized [id number] Closed 01/31/2022 12/31/2022 30 30 Encounter Details Date Type Department Care Team Description 02/04/2022 Hospital Encounter Department of Radiation Jacquelyn Gleason I., [place]cology [place] [address] [facility] [address] [place] [address] [phone] Social History Tobacco Use Types Packs/Day Years [...] have completed or the highest Maulik, MEd, PERFECT BINDER OPERATOR, 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 Sex [...] score 1-3 of 10, headaches or fever. prochlorperazine Take 1 tablet (10 mg 30 [...] Days 1 to 42. gabapentin (NEURONTIN) Take 1 capsule (300 14 capsule 0 06/0 09/202102/06/2022 300 mg capsule mg total) by mouth at bedtime. levETIRAcetam (KEPPRA) Take 1 tablet (1,000 28 [...] Care Team Description 05/03/2022 Telemedicine Clinical Genomics Pichurin, Sanya N, M.D. [address] [place] [phone] 05/06/2022 Clinical Communication Admitting/Central Scheduling 05/09/2022 Office Visit Oncology Farzana Allen M.D. [address] [place] [phone] 05/17/2022 Clinical Communication Admitting/Central Scheduling 05/21/2022 Lab Laboratory Medicine Vini Maki M.D., Ph.D. [address] [place] [phone] 05/21/2022 Appointment Radiology Vini Maki M.D., Ph.D. [address] [place] [phone] 05/21/2022 Office Visit Oncology Vini Maki M.D., Ph.D. [address] [place] [address] [phone] 06/11/2022 Ancillary Procedure Ophthalmology Chas Shin M.D. [address] [place] [phone] 06/11/2022 Ancillary Procedure Ophthalmology Chas Shin M.D. [address] [place] [phone] 06/11/2022 Office Visit Ophthalmology Chas Shin M.D. [address] [place] [phone] documented as of this encounter Visit Diagnoses Not on filedocumented in this encounter
--- OUTSIDE RECORDS SUMMARY | 2022-04-10 09:41 | XMS_ITS | Encounter Summary ---
:1970 Author Organization [facility] Address [address] [place] [address] Care Team Providers Name Role Phone Unavailable Primary Care Provider Unavailable Reason for Visit Radiation Therapy (Routine) - Closed Specialty Diagnoses / Procedures Referred By Contact Refer red To Contact Diagnoses Malignant Neoplasm Of Brain (HCC) Stephanie Gleason M.D. [facility] Radiation Oncology Procedures Prior Auth Rad Tx [place] IMRT COMPLEX [address] [place] [address] [address]21 [facility] [place] [place] [address] Referral ID Status Reason Start Date Expiration Date Visits Requ ested Visits Authorized [id number] Closed 01/31/2022 12/31/2022 30 30 Encounter Details Date Type Department Care Team Description 02/01/2022 Hospital Encounter Department of Radiation Jacquelyn Gleason I., [place]cology [place] [address] [facility] [address] [place] [phone] Social History Tobacco Use Types Packs/Day Years [...] More than 4 times per year 01/07/2022 mormonism services? Do you belong to any clubs [...] have completed or the highest Maulik, MEd, INFORMATION ASSURANCE MANAGER, 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 Sex [...] Clinical Genomics Pichurin, Sanya N, M.D. [address] [place] [phone] 05/06/2022 Clinical Communication Admitting/Central Scheduling 05/09/2022 Office Visit Oncology Farzana Allen M.D. [address] [place] [phone] 05/17/2022 Clinical Communication Admitting/Central Scheduling 05/21/2022 Lab Laboratory Medicine Vini Maki M.D., Ph.D. [address] [place] [phone] 05/21/2022 Appointment Radiology Vini Maki M.D., Ph.D. [address] [place] [phone] 05/21/2022 Office Visit Oncology Vini Maki M.D., Ph.D. [address] [place] [address] [phone] 06/11/2022 Ancillary Procedure Ophthalmology Chas Shin M.D. [address] [place] [phone] 06/11/2022 Ancillary Procedure Ophthalmology Chas Shin M.D. [address] [place] [phone] 06/11/2022 Office Visit Ophthalmology Chas Shin M.D. [address] [place] [phone] documented as of this encounter Visit Diagnoses Not on filedocumented in this encounter
--- OUTSIDE RECORDS SUMMARY | 2022-04-10 09:41 | XMS_ITS | Encounter Summary ---
:1970 Author Organization [facility] Address [address] [place] [address] Care Team Providers Name Role Phone Unavailable Primary Care Provider Unavailable Reason for Visit Radiation Therapy (Routine) - Closed Specialty Diagnoses / Procedures Referred By Contact Refer red To Contact Diagnoses Malignant Neoplasm Of Brain (HCC) Stephanie Gleason M.D. [facility] Radiation Oncology Procedures Prior Auth Rad Tx [place] IMRT COMPLEX [address] [place] [address] 1821 [facility] [place] [address] Referral ID Status Reason Start Date Expiration Date Visits Requ ested Visits Authorized [id number] Closed 01/31/2022 12/31/2022 30 30 Encounter Details Date Type Department Care Team Description 02/06/2022 Hospital Encounter Department of Radiation Jacquelyn Gleason I., [place]cology [place] [address] [facility] [address] [place] [phone] Social History Tobacco Use Types Packs/Day Years [...] or the highest Maulik, MEd, DIRECTOR OF INVESTIGATIONS, 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 Sex Assigned [...] Clinical Genomics Sanya Mehta M.D. [address] [place] [phone] 05/06/2022 Clinical Communication Admitting/Central Scheduling 05/09/2022 Office Visit Oncology Farzana Allen M.D. [address] [place] [phone] 05/17/2022 Clinical Communication Admitting/Central Scheduling 05/21/2022 Lab Laboratory Medicine Vini Maki M.D., Ph.D. [address] [place] [phone] 05/21/2022 Appointment Radiology Vini Maki M.D., Ph.D. [address] [place] [phone] 05/21/2022 Office Visit Oncology Vini Maki M.D., Ph.D. [address] [place] [phone] 06/11/2022 Ancillary Procedure Ophthalmology Chas Shin M.D. [address] [place] [phone] 06/11/2022 Ancillary Procedure Ophthalmology Chas Shin M.D. [address] [place] [phone] 06/11/2022 Office Visit Ophthalmology Chas Shin M.D. [address] [place] [phone] documented as of this encounter Visit Diagnoses Not on filedocumented in this encounter
--- OUTSIDE RECORDS SUMMARY | 2022-04-10 09:41 | XMS_ITS | Encounter Summary ---
:1970 Author Organization [facility] Address [address] [place] [address] Care Team Providers Name Role Phone Unavailable Primary Care Provider Unavailable Encounter Details Date Type Department Care Team Description 02/01/2022 Hospital Encounter Department of Sanya Mehta Neoplasm Of Brain (HCC); Laboratory Medicine Sebastian Lozada Family History Carrier Genetic Disease and Pathology, [address] [place] [address] in [place], [place] [phone] [place] [address] [place], [place] (Work) [phone] Social History Tobacco Use [...] have completed or the highest Maulik, MEd, SHIPPING AND RECEIVING, 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 Sex Assigned [...] Result Encounter Note - Sejal Resendiz M.S., [facility] [place] 03/08/2022 2:43 PM CDT Addendum created [...] Multi-Cancer + Nervous system/brain cancer panel from [employer]. IMPRESSION/REPORT/PLAN RESULTS I spoke with Ms. Cedillo today regarding her genetic test results. 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 This variant had been previously identified in [...] recommendations, such as those made by the [place] [employer], do remain appropriate. These screening recommendations may change if there are changes to the patient's personal and/or family history. Medical management guidelines for CHEK2 will likely microsoft exchange administrator time. We recommend that patients contact our [...] recommendations, such as those made by the [place] [employer], do remain appropriate. RISKS TO RELATIVES [...] area, family members can visit the website [email or web address]. We will also provide a family letter in this regard. RESOURCES The organization [employer] (Facing Our Risk for Cancer [employer]) has the mission of improving the livesof individuals and families affected by hereditary cancer. The website for this organization is: [email or web address]. PLAN Ms. Cedillo will be referred to [...] Clinical Genomics Sanya Mehta M.D. [address] [place] [address] [phone] 05/06/2022 Clinical Communication Admitting/Central Scheduling 05/09/2022 Office Visit Oncology Farzana Allen M.D. [address] [place] [address] [phone] 05/17/2022 Clinical Communication Admitting/Central Scheduling 05/21/2022 Lab Laboratory Medicine Vini Maki M.D., Ph.D. [address] [place] [phone] 05/21/2022 Appointment Radiology Vini Maki M.D., Ph.D. [address] [place] [phone] 05/21/2022 Office Visit Oncology Vini Maki M.D., Ph.D. [address] [place] [phone] 06/11/2022 Ancillary Procedure Ophthalmology hCas Shin M.D. [address] [place] [address] [phone] 06/11/2022 Ancillary Procedure Ophthalmology Chas Shni M.D. [address] [place] [phone] 06/11/2022 Office Visit Ophthalmology Chas Shin M.D. [address] [place] [address] [phone] Pending Results Name Type Priority Associated Diagnoses Date/Ti ms [id number] [facility] Lab Routine Malignant Neoplasm Of 02/05/2022 12:00 AM Single Gene Testing - Brain (HCC ) CDT Miscellaneous Test Family History Carrier Genetic Disease documented as of this encounter Procedures Procedure Name Priority Date/Time Associated Comments Diagnosis [facility] [place] Routine 02/05/2022 12:00 Results fo [employer] AM CDT procedure are i n the results section. [facility] [place]ML REFERRAL TEST Routine 02/05/2022 12:00 R esults for this 1 AM CDT procedure are i n the results section. MISCELLANEOUS SENT OUT Routine 02/05/2022 12:00 Malignant Neop lasm LAB TEST AM CDT Of Brain (HCC) Family History Carrier Genetic Disease documented in this encounter Results [facility] MML Referral Test 1 (02/05/2022 12:00 AM CDT) P athologist Signature Test Name Bueda 02/28/2022 [facility] Custom Panel 12:20 PM CDT Result SEE COMMENT 02/28/2022 [facility] 1:57 PM CDT Comment: For final report, select Lab-Send Out L ab Results hyperlink below. Test Performed By: [employer] [address] [place] [phone] Specimen (Source) Anatomical Collection Method Collection Time Re ceived Time Location / / Volume Laterality Varies 02/05/2022 02/28/2022 12:2 0 PM CDT Narrative This result has an attachment that is no t available. Sanya Mehta M.D. LAB MISC ORDERABLES Performing Organization Address [facility] Code Phon e Number MISC REFERRAL LAB MISC Misc. [employer] (02/05/2022 12:00 AM CDT) P athologist Signature Test Name [facility] 02/26/2022 [facility] single gene 1:54 PM CDT testing Result SEE COMMENT 02/26/2022 [facility] 2:55 PM CDT Comment: For final report, select Lab-Send Out L ab Results hyperlink below. Specimen (Source) Anatomical Collection Method Collection Time Re ceived Time Location / / Volume Laterality Varies 02/05/2022 02/26/2022 1:54 PM CDT Narrative This result has an attachment that is no t available. Sanya Mehta M.D. LAB [facility] ORDERABLES Performing Organization Address [facility] Phon e Number [employer] [address] [place] [phone] [facility] [employer] [address] [phone] documented in this encounter Visit Diagnoses Diagnosis Malignant Neoplasm Of Brain (HCC) Family History Carrier Genetic Disease documented in this encounter
--- OUTSIDE RECORDS SUMMARY | 2022-04-10 09:41 | XMS_ITS | Encounter Summary ---
:1970 Author Organization [facility] Address [address] [place] [address] Care Team Providers Name Role Phone Unavailable Primary Care Provider Unavailable Reason for Visit Radiation Therapy (Routine) - Closed Specialty Diagnoses / Procedures Referred By Contact Refer red To Contact Diagnoses Malignant Neoplasm Of Brain (HCC) Stephanie Gleason M.D. [facility] Radiation Oncology Procedures Prior Auth Rad Tx [place] IMRT COMPLEX [address] [place] [address] [address]21 [facility] [place] [address] Referral ID Status Reason Start Date Expiration Date Visits Requ ested Visits Authorized [id number] Closed 01/31/2022 12/31/2022 30 30 Encounter Details Date Type Department Care Team Description 02/05/2022 Hospital Encounter Department of Radiation Jacquelyn Gleason I., Oncology in [place] [address] [facility] [address] [place] [phone] Social History Tobacco Use Types Packs/Day Years [...] or relatives? How often do you attend amish or More than 4 times per year 01/07/2022 jainism services? Do you belong to any clubs or No 01/07/2022 organizations such as amish groups, unions, fraternal or athletic groups, or [...] have completed or the highest Maulik, MEd, LIME SPREADER, 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 Sex Assigned [...] Telemedicine Clinical Genomics Sanya Mehta M.D. [address] [place] [phone] 05/06/2022 Clinical Communication Admitting/Central Scheduling 05/09/2022 Office Visit Oncology Farzana Allen M.D. [address] [place] [phone] 05/17/2022 Clinical Communication Admitting/Central Scheduling 05/21/2022 Lab Laboratory Medicine Vini Maki M.D., Ph.D. [address] [place] [phone] 05/21/2022 Appointment Radiology Vini Maki M.D., Ph.D. [address] [place] [phone] 05/21/2022 Office Visit Oncology Vini Maki M.D., Ph.D. [address] [place] [phone] 06/11/2022 Ancillary Procedure Ophthalmology Chas Shin M.D. [address] [place] [phone] 06/11/2022 Ancillary Procedure Ophthalmology Chas Shin M.D. [address] [place] [phone] 06/11/2022 Office Visit Ophthalmology Chas Shin M.D. [address] [place] [phone] documented as of this encounter Visit Diagnoses Not on filedocumented in this encounter
--- OUTSIDE RECORDS SUMMARY | 2022-04-10 09:41 | XMS_ITS | Encounter Summary ---
:1970 Author Organization [facility] Address [address] [place] [address] Care Team Providers Name Role Phone Unavailable Primary Care Provider Unavailable Reason for Visit Radiation Therapy (Routine) - Closed Specialty Diagnoses / Procedures Referred By Contact Refer red To Contact Diagnoses Malignant Neoplasm Of Brain (HCC) Stephanie Gleason M.D. [facility] Radiation Oncology Procedures Prior Auth Rad Tx [place] IMRT COMPLEX [address] [place] [address] [address] [facility] [address] Referral ID Status Reason Start Date Expiration Date Visits Requ ested Visits Authorized [id number] Closed 01/31/2022 12/31/2022 30 30 Encounter Details Date Type Department Care Team Description 02/08/2022 Hospital Encounter Department of Radiation Jacquelyn Gleason I., [place]cology [place] [address] [facility] [address] [place] [phone] Social History Tobacco Use Types Packs/Day Years [...] have completed or the highest Maulik, MEd, CASSANDRA CONSULTANT, 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 Sex [...] Telemedicine Clinical Genomics Sanya Mehta M.D. [address] [place] [phone] 05/06/2022 Clinical Communication Admitting/Central Scheduling 05/09/2022 Office Visit Oncology Farzana Allen M.D. [address] [place] [phone] 05/17/2022 Clinical Communication Admitting/Central Scheduling 05/21/2022 Lab Laboratory Medicine Vini Maki M.D., Ph.D. [address] [place] [phone] 05/21/2022 Appointment Radiology Vini Maki M.D., Ph.D. [address] [place] [phone] 05/21/2022 Office Visit Oncology Vini Maki M.D., Ph.D. [address] [place] [phone] 06/11/2022 Ancillary Procedure Ophthalmology Chas Shin M.D. [address] [place] [phone] 06/11/2022 Ancillary Procedure Ophthalmology Chas Shin M.D. [address] [place] [phone] 06/11/2022 Office Visit Ophthalmology Chas Shin M.D. [address] [place] [phone] documented as of this encounter Visit Diagnoses Not on filedocumented in this encounter
--- OUTSIDE RECORDS SUMMARY | 2022-04-10 09:41 | XMS_ITS | Encounter Summary ---
:1970 Author Organization [facility] Address [address] [place] [address] Care Team Providers Name Role Phone Unavailable Primary Care Provider Unavailable Reason for Referral Specialty Diagnoses / Procedures Referred By Contact Refer red To Contact Stacy Easley P.A.-C ., M.S. [facility] [address] [place] [phone] Referral ID Status Reason Start Date Expiration Date Visits Requ ested Visits Authorized Encounter Details Date Type Department Care Team Description 02/07/2022 Hospital Encounter Department of Luis Armando Gleason M.D. [address] [place] [phone] Malignant Neoplasm Radiation Oncology Eileen Hopkins, RAquilino [address] [place] [phone] Of Brain (HCC) in [place], [place] [address] [place] [address] Social History Tobacco Use Types [...] 01/07/2022 organizations such as temple groups, unions, [employer] or athletic groups, or school groups? [...] have completed or the highest Maulik, MEd, EXHIBITIONS CURATOR, 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 Sex Assigned [...] (cGy) First Treatment Last Treatment Elapsed Days [id number] 01/31/2022 02/07/2022 7 Course [...] wig resource information with patient today. Nurse educationvisit was completed today. She will contact us with any questions or concerns. We will continue withradiation treatment as planned. Signed by: Eileen Hopkins R.N. 02/07/2022 10:06 AM CDT documented in this encounter Plan of Treatment Upcoming Encounters Date Type Specialty Care Team Description 05/03/2022 Telemedicine Clinical Genomics Sanya Mehta M.D. [address] [place] [phone] 05/06/2022 Clinical Communication Admitting/Central Scheduling 05/09/2022 Office Visit Oncology Farzana Allen M.D. [address] [place] [phone] 05/17/2022 Clinical Communication Admitting/Central Scheduling 05/21/2022 Lab Laboratory Medicine Vini Maki M.D., Ph.D. [address] [place] [phone] 05/21/2022 Appointment Radiology Vini Maki M.D., Ph.D. [address] [place] [phone] 05/21/2022 Office Visit Oncology Vini Maki M.D., Ph.D. [address] [place] [address] [phone] 06/11/2022 Ancillary Procedure Ophthalmology Chas Shin M.D. [address] [place] [phone] 06/11/2022 Ancillary Procedure Ophthalmology Chas Shin M.D. [address] [place] [address] [phone] 06/11/2022 Office Visit Ophthalmology Chas Shin M.D. [address] [place] [phone] Scheduled Referrals Name Type Priority Associated Order Schedule Diagnoses Radiation Oncology Outpatient Referral Routine Malignant Neopl asm Once for 1 - Nurse education Of Brain (HCC) Occurren candice starting visit (clinic) 02/07/2022 un til 02/07/2022 documented as of this encounter Visit Diagnoses Diagnosis Malignant Neoplasm Of Brain (HCC) documented in this encounter
--- OUTSIDE RECORDS SUMMARY | 2022-04-10 09:41 | XMS_ITS | Encounter Summary ---
:[address] [facility] Address [address] [place] [address] Care Team Providers Name Role Phone Unavailable Primary Care Provider Unavailable Reason for Visit Reason Comments [facility]: CK Encounter Details Date Type Department Care Team Description 02/01/2022 Clinical Communication Department of Sejal Barnes [facility]: [facility] in [place], [place] [address] [place] [address] [address] [place] [phone] Social History Tobacco Use Types Packs/Day Years [...] have completed or the highest Maulik, MEd, DRILLER'S ASSISTANT, 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 Sex [...] Sejal Resendiz CGC Insurance: BRCA 1/2 only: [place], BCBS [place], CIGNA, Humana; & [employer] documented in this encounter Plan of Treatment Upcoming Encounters Date Type Specialty Care Team Description 05/03/2022 Telemedicine Clinical Genomics Sanya Mehta M.D. [address] [place] [phone] 05/06/2022 Clinical Communication Admitting/Central Scheduling 05/09/2022 Office Visit Oncology Farzana Allen M.D. [address] [place] [phone] 05/17/2022 Clinical Communication Admitting/Central Scheduling 05/21/2022 Lab Laboratory Medicine Vini Maki M.D., Ph.D. [address] [place] [phone] 05/21/2022 Appointment Radiology Vini Maki M.D., Ph.D. [address] [place] [phone] 05/21/2022 Office Visit Oncology Vini Maki M.D., Ph.D. [address] [place] [phone] 06/11/2022 Ancillary Procedure Ophthalmology Chas Shin M.D. [address] [place] [phone] 06/11/2022 Ancillary Procedure Ophthalmology Chas Shin M.D. [address] [place] [phone] 06/11/2022 Office Visit Ophthalmology Chas Shin M.D. [address] [place] [phone] documented as of this encounter Visit Diagnoses Not on filedocumented in this encounter
--- OUTSIDE RECORDS SUMMARY | 2022-04-10 09:41 | XMS_ITS | Encounter Summary ---
:1970 Author Organization [facility] Address [address] [place] [address] Care Team Providers Name Role Phone Unavailable Primary Care Provider Unavailable Reason for Visit Radiation Therapy (Routine) - Closed Specialty Diagnoses / Procedures Referred By Contact Refer red To Contact Diagnoses Malignant Neoplasm Of Brain (HCC) Stephanie Gleason M.D. [facility] Radiation Oncology Procedures Prior Auth Rad Tx CA IMRT COMPLEX [address] [place] [phone] [address] [facility] [place] [address] Referral ID Status Reason Start Date Expiration Date Visits Requ ested Visits Authorized [id number] Closed 01/31/2022 12/31/2022 30 30 Encounter Details Date Type Department Care Team Description 02/12/2022 Hospital Encounter Department of Radiation Jacquelyn Gleason I., Oncology in [place] [address] [facility] [address] [place] [address] [phone] Social History Tobacco Use Types Packs/Day Years [...] have completed or the highest Maulik, MEd, MD SENIOR RESEARCH SCIENTIST, 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 Sex [...] Clinical Genomics Sanya Mehta M.D. [address] [place] [phone] 05/06/2022 Clinical Communication Admitting/Central Scheduling 05/09/2022 Office Visit Oncology Farzana Allen M.D. [address] [place] [phone] 05/17/2022 Clinical Communication Admitting/Central Scheduling 05/21/2022 Lab Laboratory Medicine Vini Maki M.D., Ph.D. [address] [place] [phone] 05/21/2022 Appointment Radiology Vini Maki M.D., Ph.D. [address] [place] [phone] 05/21/2022 Office Visit Oncology Vini Maki M.D., Ph.D. [address] [place] [phone] 06/11/2022 Ancillary Procedure Ophthalmology Chas Shin M.D. [address] [place] [phone] 06/11/2022 Ancillary Procedure Ophthalmology Chas Shin M.D. [address] [place] [phone] 06/11/2022 Office Visit Ophthalmology Chas Shin M.D. [address] [place] [phone] documented as of this encounter Visit Diagnoses Not on filedocumented in this encounter
--- OUTSIDE RECORDS SUMMARY | 2022-04-10 09:42 | XMS_ITS | Encounter Summary ---
:1970 Author Organization [facility] Address [address] [place] [address] Care Team Providers Name Role Phone Unavailable Primary Care Provider Unavailable Encounter Details Date Type Department Care Team Description 01/25/2022 Clinical Communication Department of Stephanie Gleason Radiation Oncology in [place] [facility] 200 [facility] [address] [place] [phone] Social History Tobacco Use Types Packs/Day Years [...] have completed or the highest Maulik, MEd, ELEMENTARY SCHOOL BAND DIRECTOR, 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 Sex [...] currently taking 1 mg 4 times per day. She was instructed to continue the taper which will have her discontinuing the medication tomorrow night. She is asking if stopping dexamethasone is going to cause issues for the patient's simulation scan and MRI scan on Friday or for radiation treatments in terms of swelling. I explained that we are fine with the patient continuing the dexamethasone taper and discontinuing the medication as instructedby neurosurgery and at hospital discharge. The patient is being seen by Dr. Gleason on Friday and will be re-assessed at that time. If the patient does experience swelling or worsening of symptoms afterstopping the dexamethasone or with radiation treatment, we discussed that we may need to re-start itagain in the future. Again, I explained that she should continue with the dexamethasone taper as prescribed. Libby then asked if I had discussed this with anyone else and I explained that I had not as Iwanted to return her call prior to the [...] her again. I explained that I was ableto connect with Dr. Gleason and that she agreed with what we discussed and that the patient can continue the dexamethasone taper as prescribed. She did comment that they have a lot of dexamethasone 4 mgtablets still and I recommended for her to [...] Would like a call back. Phone number: [phone] Is it okay to leave a voicemail on answering machine with test results? Yes Pharmacy (if medication related): [facility] [address] [place] [address] - [address] [facility] [address] [facility] [address] [facility] [place], [place] - [address] [facility] 200 [facility] [address] [facility], [place] - [address] [place] [address] [place] [address] Alexandria Austin documented in this encounter Plan of Treatment Upcoming Encounters Date Type Specialty Care Team Description 05/03/2022 Telemedicine Clinical Genomics Sanya Mehta M.D. [address] [place] [phone] 05/06/2022 Clinical Communication Admitting/Central Scheduling 05/09/2022 Office Visit Oncology Farzana Allen M.D. [address] [place] [phone] 05/17/2022 Clinical Communication Admitting/Central Scheduling 05/21/2022 Lab Laboratory Medicine Vini Maki M.D., Ph.D. [address] [place] [phone] 05/21/2022 Appointment Radiology Vini Maki M.D., Ph.D. [address] [place] [phone] 05/21/2022 Office Visit Oncology Vini Maki M.D., Ph.D. [address] [place] [phone] 06/11/2022 Ancillary Procedure Ophthalmology Chas Shin M.D. [address] [place] [phone] 06/11/2022 Ancillary Procedure Ophthalmology Chas Shin M.D. [address] [place] [phone] 06/11/2022 Office Visit Ophthalmology Chas Shin M.D. [address] [place] [phone] documented as of this encounter Visit Diagnoses Not on filedocumented in this encounter
--- OUTSIDE RECORDS SUMMARY | 2022-04-10 09:42 | XMS_ITS | Encounter Summary ---
:1970 Author Organization [facility] Address [address] [place] [address] Care Team Providers Name Role Phone Unavailable Primary Care Provider Unavailable Reason for Referral Outpatient (Routine) - Closed Specialty Diagnoses / Procedures Referred By Contact Refer red To Contact Radiation Oncology Diagnoses Malignant Neoplasm Of Brain (HCC) Norma Diamond [place], M.S. [address] [place] [phone] Referral ID Status Reason Start Date Expiration Date Visits Requ ested Visits Authorized [id number] Closed 01/22/2022 01/22/2023 1 1 Reason for Visit Outpatient (Routine) - Closed Specialty Diagnoses / Procedures Referred By Contact Refer red To Contact Radiation Oncology Diagnoses Malignant Neoplasm Of Brain (HCC) Norma Diamond [place]obi, M.S. [address] [place] [phone] Referral ID Status Reason Start Date Expiration Date Visits Requ ested Visits Authorized [id number] Closed 01/22/2022 01/22/2023 1 1 Encounter Details Date Type Department Care Team Description 01/28/2022 Hospital Encounter Department of Stephanie Gleason Radiation Oncology [place] Of Brain (HCC) in [address] [facility] [address] [place], [place] [phone] (Work) [phone] Social History Tobacco Use Types Packs/Day Years [...] 01/07/2022 organizations such as spiritism groups, unions, fraternal or athletic groups, or [...] have completed or the highest Maulik, MEd, BOOSTER PUMP OPERATOR, 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 Sex [...] score 1-3 of 10, headaches or fever. VITAMIN B COMPLEX ORAL Take 1 tablet [...] documented as of this encounter Progress Notes Cliff Sumner M.D., M.S. - 01/28/2022 10:00 AM CDT RADIATION ONCOLOGY FOLLOW-UP VISIT Supervising Outsole Caser: Dr. Stephanie Gleason Home address: [address] [place] [phone] SUBJECTIVE History of present illness Mia Cedillo [...] sense. The patient was taken to the [facility] with altered mental status. The patient was [...] with steroids and Keppra and transferred to [facility]. 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 See comment. B. 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 See comment. Final Diagnosis: [...] Referral to Dr. Shelbie Ackerman at the [facility]. Discussed that it was okay for the [...] plus temozolomide. Referral to Radiation Oncology at [facility] in [place]. 01/10/2022 Surgery and Procedures Left temporoparietal stereotactic craniotomy with tumor resection, speech mapping with Dr. Ivey. PATHOLOGY: A-D. 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 See comment. 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 The biopsy specimen lacked microvascular proliferation and tumor necrosis. By immunohistochemistry, the tumor cells were negative for IDH1-R132H and showed retained ATRX expression. 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 01/10/2022 Imaging MRI of [...] We will have the MR interpreted by [place] [facility]. We discussed initiation of treatment on 01/31/2022 or 02/01/2022 pending thorough review including by our peers in [place]. [facility] and may receive an [...] on 01/31/2022 Dr. Stephanie Gleason is the automotive consultant; please see attestation for further details. Cliff Sumner M.D., M.S. Associated attestation - Stephanie Gleason M.D. - 01/28/2022 3:58 PM CDT RADIATION ONCOLOGY CONSULT I saw and evaluated the patient and participated in the hill portions of the service. I reviewed the documentation of Dr. Cliff Sumner and agree with [...] consultation on 01/01/2022 for initial details. She then then underwent a follow-up functional MRI with urgent surgery the following day on January 10, 2022. I havereviewed her imaging, operative and pathology reports as [...] rationale, risks, side effects and goals of radiation therapy. We discussed the acute as well as mcfp risks, including, but not limited to fatigue, skin erythema, hair loss which could be permanent, memory/cognitive effects as well as small risks ofbrain or brainstem necrosis. We also discussed pseudoprogression. They understood and their questions were answered. She wished to proceed with treatment. We tentatively plan on delivering 6000 cGy in 30 fractions starting January 31 (if we can coordinate with Med Onc that she will have her temozolmide)or we will start on February 01. I also explained that the planning study she is having today could also make us want to start sooner or not. Dr. Sumner will call her tomorrow once we have the [place] over-read on her planning MRI brain. My [...] AM CDT Encounter addended by: Kimmie Goff C.N.A. on: 01/29/2022 7:04 AM Actions taken: Letter saved documented in this encounter Plan of Treatment Upcoming Encounters Date Type Specialty Care Team Description 05/03/2022 Telemedicine Clinical Genomics Sanya Mehta M.D. [address] [place] [phone] 05/06/2022 Clinical Communication Admitting/Central Scheduling 05/09/2022 Office Visit Oncology Farzana Allen M.D. [address] [place] [phone] 05/17/2022 Clinical Communication Admitting/Central Scheduling 05/21/2022 Lab Laboratory Medicine Vini Maki M.D., Ph.D. [address] [place] [phone] 05/21/2022 Appointment Radiology Vini Maki M.D., Ph.D. [address] [place] [phone] 05/21/2022 Office Visit Oncology Vini Maki M.D., Ph.D. [address] [place] [phone] 06/11/2022 Ancillary Procedure Ophthalmology Chas Shin M.D. [address] [place] [phone] 06/11/2022 Ancillary Procedure Ophthalmology Chas Shin M.D. [address] [place] [phone] 06/11/2022 Office Visit Ophthalmology Chas Shin M.D. [address] [place] [phone] Scheduled Referrals Name Type Priority Associated Order Schedule Diagnoses Radiation Oncology Outpatient Referral Routine Malignant Neopl asm Once for 1 - Brain / NURSE EXTERN Of Brain (HCC) Occurrences starting consult (clinic) [...]
--- OUTSIDE RECORDS SUMMARY | 2022-04-10 09:42 | XMS_ITS | Encounter Summary ---
:1970 Author Organization [facility] Address [address] [place] [address] Care Team Providers Name Role Phone Unavailable Primary Care Provider Unavailable Encounter Details Date Type Department Care Team Description 01/28/2022 Orders Only Department of Burak, Cliff Ojeda, Malignant N eoplasm Of Radiation Oncology in [place]., M.S. Brain (HCC) (Primary [place], [facility] a 200 [facility] Dx) [address] [place] [phone] Social History Tobacco Use Types Packs/Day Years [...] More than 4 times per year 01/07/2022 zoroastrianism services? Do you belong to any clubs [...] have completed or the highest Maulik, MEd, COUNTY HOME DEMONSTRATOR, 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 Sex Assigned at Date Recorded Female 01/07/2022 11:11 AM CDT documented as of this encounter Plan of Treatment Upcoming Encounters Date Type Specialty Care Team Description 05/03/2022 Telemedicine Clinical Genomics Sanya Mehta M.D. [address] [place] [phone] 05/06/2022 Clinical Communication Admitting/Central Scheduling 05/09/2022 Office Visit Oncology Farzana Allen M.D. [address] [place] [phone] 05/17/2022 Clinical Communication Admitting/Central Scheduling 05/21/2022 Lab Laboratory Medicine Vini Maki M.D., Ph.D. [address] [place] [phone] 05/21/2022 Appointment Radiology Vini Maki M.D., Ph.D. [address] [place] [phone] 05/21/2022 Office Visit Oncology Vini Maki M.D., Ph.D. [address] [place] [phone] 06/11/2022 Ancillary Procedure Ophthalmology Chas Shin M.D. [address] [place] [phone] 06/11/2022 Ancillary Procedure Ophthalmology Chas Shin M.D. [address] [place] [phone] 06/11/2022 Office Visit Ophthalmology Chas Shin M.D. [address] [place] [phone] documented as of this encounter Results Interpretation [...] 8 mm in thickness. Interval decrease in edgz-wp-qzksg midli ne shift with improved patency of [...] at more anterior lateral left temporal lobe (/) where continuing surveillance jody l be helpful. Continuing thin extra- axial fluid collection subjacent to the craniotomy, approximate ly 8 mm in thickness. Interval decrease in aqhe-vq-ufkgb midli ne shift with improved patency of [...]
--- OUTSIDE RECORDS SUMMARY | 2022-04-10 09:42 | XMS_ITS | Encounter Summary ---
:1970 Author Organization [facility] Address [address] [place] [address] Care Team Providers Name Role Phone Unavailable Primary Care Provider Unavailable Reason for Referral Specialty Diagnoses / Procedures Referred By Contact Refer red To Contact Karthikeyan Cedeno M.D. [facility] [address] [place] [phone] Referral ID Status Reason Start Date Expiration Date Visits Requ ested Visits Authorized Reason for Visit Reason Comments Treatment Questions/Concerns Encounter Details Date Type Department Care Team Description 01/28/2022 Clinical Communication Department of Karthikeyan Cedeno Neurology lucien Smiley M.D. Questions/Concerns [address] [place] [phone] [place], [place] [phone] (Work) [phone] Social History Tobacco Use Types Packs/Day Years [...] 01/07/2022 organizations such as episcopalian groups, unions, [employer] or athletic groups, or school groups? How [...] have completed or the highest Maulik, MEd, METHODS STUDY ANALYST, 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 Sex [...] ready for review. Addendum Note - Olivia Lnudy D.N.Tu., M.A., R.N., HNB-BC - 01/29/2022 4:05 PM CDT Addended by: OLIVIA LUNDY on: 01/29/2022 04:05 PM Modules accepted: Orders Telephone Encounter - Amelie Wiley - 01/29/2022 3:39 PM CDT Labs drawn on 01/23/22 are here. Copy is in document viewer. This fax should be viewable in a few minutes. Thank you, Kala RST ONC [facility] AA POD 1 Telephone Encounter - Amelie Wiley - 01/29/2022 2:12 PM CDT Faxed stat request to medical records at [place] at [phone] to fax 01/28 labs Telephone Encounter - Chiquita Ivey - 01/29/2022 9:38 AM CDT Do we have a valid auth to speak with caller? Yes-Libby, mother Reason for call: Libby calls again upset and confused as to what the appointment with Rebeca is for? She doesn't understand why patient needs to be seen in person and why the Temodar wasn't previouslyordered so that patient could start medication the same time as her radiation? She thinks that we have been wasting time with everything and delaying patient's care. She feels we are holding her offon treatment and patient is slipping away. I did reiterate that the nurse told her that it was okayfor patient to start radiation before receiving the [...] patient's appt with Rebeca, then back to [place] for radiation, then back here for a genetics consult, she says that's not going to happen. Could someone please call Libby to discuss plan with her again? Thank you, Hannah RST ONC [facility] AA POD 1 Telephone Encounter - Johnathan Rogel - 01/28/2022 1:51 PM CDT Spoke to Libby, blood draw is being done at [facility] and they will send the results to us. Telephone Encounter - Stacy Panda R.N. - 01/28/2022 12:51 PM CDT I would suggest calling Libby, patients mother. Ask her what she prefers. Thanks Kee! Addendum Note - Stacy Panda R.N. - 01/28/2022 12:39 PM CDT Addended by: STACY PANDA on: 01/28/2022 12:39 PM Modules accepted: Orders Telephone Encounter - Stacy Panda R.N. - 01/28/2022 12:26 PM CDT SUBJECTIVE CHIEF COMPLAINT / REASON FOR CALL Treatment Questions Information Discussed Spoke with Ms Cedillo's mother, Libby, regarding treatment questions. Pt is to begin RT in [facility] or Friday this week. Libby is upset that the patient does not yet have her temozolomide. RN explained to her that pt has an appointment this week with Rebeca Valle PA-C, to go over lab work and prescribe chemotherapy. Libby asked to have this appointment moved up sooner than . Idont understand why we need this appointment. Nothing has changed since we were there last. She also asked why they were going to see Tori and not Dr Cedeno. RN explained care team model to her and explained that Dr Cedeno is away this week. RN also explained that it is acceptable for pt to begin RT without chemotherapy for a few days. Libby requests that a lab order be sent to [place] for lab work today. They would like to completethis after pt 1:00 MRI. PLAN Disposition/Recommendation: recommended continue engagement in self-management activities and complete lab work in [place] today or tomorrow. Follow up with Danilo later this week. Information/Education: patient/caller able to teach back Caller agreeable to plan of care: yes The following references were used: nursing clinical judgement documented in this encounter Plan of Treatment Upcoming Encounters Date Type Specialty Care Team Description 05/03/2022 Telemedicine Clinical Genomics Sanya Mehta M.D. [address] [place] [phone] 05/06/2022 Clinical Communication Admitting/Central Scheduling 05/09/2022 Office Visit Oncology Farzana Allen M.D. [address] [place] [phone] 05/17/2022 Clinical Communication Admitting/Central Scheduling 05/21/2022 Lab Laboratory Medicine Vini Maki M.D., Ph.D. [address] [place] [phone] 05/21/2022 Appointment Radiology Vini Maki M.D., Ph.D. [address] [place] [phone] 05/21/2022 Office Visit Oncology Vini Maki M.D., Ph.D. [address] [place] [phone] 06/11/2022 Ancillary Procedure Ophthalmology Chas Shin M.D. [address] [place] [phone] 06/11/2022 Ancillary Procedure Ophthalmology Chas Shin M.D. [address] [place] [phone] 06/11/2022 Office Visit Ophthalmology Chas Shin M.D. [address] [place] [phone] Scheduled Referrals Name Type Priority Associated Diagnoses Order S chedule Oncology - Chemo Outpatient Referral Routine Tumor Brain (HCC) Expected: education visit 01/30/2022, (clinic) Expires: 05/01/2023 documented as of this encounter Procedures Procedure Name Priority Date/Time Associated Diagnosis Comme nts HEMATOLOGY/ONCOLOGY Routine 01/28/2022 1:45 PM Re sults for this - BLOOD, EXTERNAL CDT procedure are in LAB RESULTS the results section. documented in this encounter Results (ABNORMAL) Hematology/Oncology - Blood, External Lab Results (01/28/2022 1:45 PM CDT) Analysis Performed At Patho logist Time Signature EXT Hemoglobin 10.9 (A) 12.0 - OTHER 15.5 (SPECIFY IN RUBBER CUTTER) EXT Leukocytes 8.01 5.0 - 10.0 OTHER (SPECIFY IN RUBBER CUTTER) EXT Absolute 3.29 1.70 - 7.0 OTHER Neutrophil (SPECIFY IN Count RUBBER CUTTER) EXT Lymphs 3.97 (A) 0.90 - OTHER Absolute 2.90 (SPECIFY IN RUBBER CUTTER) EXT Platelet 360 150 - 450 OTHER Count (SPECIFY IN RUBBER CUTTER) Specimen (Source) Anatomical Collection Method Collection Time Re ceived Time Location / / Volume Laterality Blood 01/28/2022 1:45 PM CDT Narrative This result has an attachment that is no t available. Historical Provider LAB BLOOD NON ADD-ON Performing Organization Address City/State/ZIP Code Phon e Number OTHER (SPECIFY IN RUBBER CUTTER) OTHER (SPECIFY IN RUBBER CUTTER) N/A documented in this encounter Visit Diagnoses Diagnosis Tumor Brain (HCC) - Primary documented in this encounter
--- OUTSIDE RECORDS SUMMARY | 2022-04-10 09:42 | XMS_ITS | Encounter Summary ---
:1970 Author Organization [facility] Address 200 [place] [address] Care Team Providers Name Role Phone Unavailable Primary Care Provider Unavailable Encounter Details Date Type Department Care Team Description 01/30/2022 Orders Only Pharmacy Prior Auth [facility] [place] [phone] Social History Tobacco Use Types Packs/Day Years [...] completed or the highest Maulik, MEd, SALES LEAD GENERATOR, 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 Sex Assigned at Date Recorded Female 01/07/2022 11:11 AM CDT documented as of this encounter Plan of Treatment Upcoming Encounters Date Type Specialty Care Team Description 05/03/2022 Telemedicine Clinical Genomics Sanya Mehta M.D. [address] [place] [phone] 05/06/2022 Clinical Communication Admitting/Central Scheduling 05/09/2022 Office Visit Oncology Farzana Allen M.D. [address] [place] [phone] 05/17/2022 Clinical Communication Admitting/Central Scheduling 05/21/2022 Lab Laboratory Medicine Vini Maki M.D., Ph.D. [address] [place] [phone] 05/21/2022 Appointment Radiology Vini Maki M.D., Ph.D. [address] [place] [phone] 05/21/2022 Office Visit Oncology Vini Maki M.D., Ph.D. [address] [place] [phone] 06/11/2022 Ancillary Procedure Ophthalmology Chas Shin M.D. [address] [place] [phone] 06/11/2022 Ancillary Procedure Ophthalmology Chas Shin M.D. [address] [place] [address] 06/11/2022 Office Visit Ophthalmology Chas Shin M.D. [address] [place] [phone] documented as of this encounter Visit Diagnoses Not on filedocumented in this encounter
--- OUTSIDE RECORDS SUMMARY | 2022-04-10 09:42 | XMS_ITS | Encounter Summary ---
:1970 Author Organization [facility] Address 200 [place] [address] Care Team Providers Name Role Phone Unavailable Primary Care Provider Unavailable Reason for Referral Outpatient (Routine) - Closed Specialty Diagnoses / Procedures Referred By Contact Refer red To Contact Radiation Oncology Diagnoses Malignant Neoplasm Of Brain (HCC) Norma Link [facility] Kobi M.S. 200 [place] [address] Referral ID Status Reason Start Date Expiration Date Visits Requ ested Visits Authorized [id number] Closed 01/22/2022 01/22/2023 1 1 Encounter Details Date Type Department Care Team Description 01/22/2022 Orders Only Department of Norma Link Malignant N eoplasm Of Radiation Oncology in [place] M .S. Brain (HCC) (Primary [place], [place] 200 [facility]) 200 [place] [phone] Social History Tobacco Use Types Packs/Day Years [...] 01/07/2022 organizations such as christianity groups, unions, fra[employer] or athletic groups, or school groups? How [...] completed or the highest Maulik, MEd, MEDICAL TRANSCRIPTION RADIOLOGY, 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 Sex Assigned [...] Clinical Genomics Sanya Mehta M.D. [address] [place] [phone] 05/06/2022 Clinical Communication Admitting/Central Scheduling 05/09/2022 Office Visit Oncology Farzana Allen M.D. [address] [place] [phone] 05/17/2022 Clinical Communication Admitting/Central Scheduling 05/21/2022 Lab Laboratory Medicine Vini Maki M.D., Ph.D. [address] [place] [phone] 05/21/2022 Appointment Radiology Vini Maki M.D., Ph.D. [address] [place] [phone] 05/21/2022 Office Visit Oncology Vini Maki M.D., Ph.D. [address] [place] [phone] 06/11/2022 Ancillary Procedure Ophthalmology Chas Shin M.D. [address] [place] [phone] 06/11/2022 Ancillary Procedure Ophthalmology Chas Shin M.D. [address] [place] [phone] 06/11/2022 Office Visit Ophthalmology Chas Shin M.D. [address] [place] [phone] Scheduled Referrals Name Type Priority Associated Diagnoses Order S chedule Radiation Oncology Outpatient Referral Routine Malignant Neopl asm Expected: - Brain / REEL ASSEMBLER Of Brain (HCC) 01/22/2022 consult (clinic) (Approximat e), Expires: 04/24/2023 documented as of this encounter Visit Diagnoses Diagnosis Malignant Neoplasm Of Brain (HCC) - Prim uyen documented in this encounter
--- OUTSIDE RECORDS SUMMARY | 2022-04-10 09:42 | XMS_ITS | Encounter Summary ---
:1970 Author Organization [facility] Address [address] [place] [address] Care Team Providers Name Role Phone Unavailable Primary Care Provider Unavailable Reason for Referral Outpatient (Routine) - Authorized Specialty Diagnoses / Procedures Referred By Contact Refer red To Contact Palliative Medicine Diagnoses Tumor Brain (HCC) Rebeca Valle [place], M.S. [address] [place] [phone] Referral ID Status Reason Start Date Expiration Date Visits V isits Requested Authorized [id number] Authorized 01/30/2022 01/30/2023 1 1 utpatient (Routine) - Closed Specialty Diagnoses / Procedures Referred By Contact Refer red To Contact Social Work Diagnoses Tumor Brain (HCC) Rebeca Valle [place] [facility], M.S. [address] [place] [phone] Referral ID Status Reason Start Date Expiration Date Visits Requ ested Visits Authorized [id number] Closed 01/30/2022 01/30/2023 1 1 Reason for Visit Reason Comments Lab Order Encounter Details Date Type Department Care Team Description 01/30/2022 Clinical Communication Department of Sa miquel Valle P.A.-C., M.S. [address] [place] [phone] Lab Order Oncology in Olivia Koenig Dionicio De La Cruz, DonA., R.N., HN- [address] [place] [phone] [place], [place] [address] [place] [phone] Social History Tobacco Use Types Packs/Day Years [...] More than 4 times per year 01/07/2022 anabaptism services? Do you belong to any clubs [...] have completed or the highest Maulik, Trino, ROVING CAN TENDER, 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 Sex Assigned at Date Recorded Female 01/07/2022 11:11 AM CDT documented as of this encounter Miscellaneous Notes Telephone Encounter - Margaret Carnes - 01/30/2022 3:03 PM CDT Order faxed at 3:03pm on 01-30-2022 to: [facility] Address: [address] [place] [address] Thank you, Margaret RST [facility]C [facility] AA POD 1 documented in this encounter Plan of Treatment Upcoming Encounters Date Type Specialty Care Team Description 05/03/2022 Telemedicine Clinical Genomics Sanya Mehta M.D. [address] [place] [phone] 05/06/2022 Clinical Communication Admitting/Central Scheduling 05/09/2022 Office Visit Oncology Farzana Allen M.D. [address] [place] [phone] 05/17/2022 Clinical Communication Admitting/Central Scheduling 05/21/2022 Lab Laboratory Medicine Vini Maki M.D., Ph.D. [address] [place] [phone] 05/21/2022 Appointment Radiology Vini Maki M.D., Ph.D. [address] [place] [phone] 05/21/2022 Office Visit Oncology Vini Maki M.D., Ph.D. [address] [place] [phone] 06/11/2022 Ancillary Procedure Ophthalmology Chas Shin M.D. [address] [place] [phone] 06/11/2022 Ancillary Procedure Ophthalmology Chas Shin M.D. [address] [place] [phone] 06/11/2022 Office Visit Ophthalmology Chas Shin M.D. [address] [place] [phone] Scheduled Referrals Name Type Priority Associated Order [...]
--- OUTSIDE RECORDS SUMMARY | 2022-04-10 09:42 | XMS_ITS | Encounter Summary ---
:1970 Author Organization [facility] Address [address] [place] [address] Care Team Providers Name Role Phone Unavailable Primary Care Provider Unavailable Reason for Referral Radiation Therapy (Routine) - Closed Specialty Diagnoses / Procedures Referred By Contact Refer red To Contact Diagnoses Malignant Neoplasm Of Brain (HCC) Stephanie Gleason M.D. [facility] Procedures Initial Rad Onc Treatment Planning CT Simulation [address] [place] [phone] Referral ID Status Reason Start Date Expiration Date Visits Requ ested Visits Authorized [id number] Closed 12/31/2021 12/31/2022 1 1 Reason for Visit Radiation Therapy (Routine) - Closed Specialty Diagnoses / Procedures Referred By Contact Refer red To Contact Diagnoses Malignant Neoplasm Of Brain (HCC) Stephanie Gleason M.D. [facility] Procedures Initial Rad Onc Treatment Planning CT Simulation 200 [place] [phone] Referral ID Status Reason Start Date Expiration Date Visits Requ ested Visits Authorized [id number] Closed 12/31/2021 12/31/2022 1 1 Encounter Details Date Type Department Care Team Description 01/28/2022 Hospital Encounter Department of Stephanie Gleason Neoplasm Radiation Oncology Sebastian Marcelino Of Brain (HCC) in [place], [address] [place] [address] [address] [place] [phone] [place], [place] [phone] (Work) [phone] Social History Tobacco Use Types Packs/Day Years [...] have completed or the highest Maulik, MEd, 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 Sex Assigned [...] of slices was obtained to be utilized intreatment planning. CT images were transferred to the [place] treatment planning system, after a reference isocenter was determined and marked. Segmentation and treatment planning will take place priorto treatment delivery. Patient set up and imaging was appropriate and completed without incident. Narcotics And/Or Vice Detective use:No documented in this encounter Plan of Treatment Upcoming Encounters Date Type Specialty Care Team Description 05/03/2022 Telemedicine Clinical Genomics Sanya Mehta M.D. [address] [place] [phone] 05/06/2022 Clinical Communication Admitting/Central Scheduling 05/09/2022 Office Visit Oncology Farzana Allen M.D. [address] [place] [phone] 05/17/2022 Clinical Communication Admitting/Central Scheduling 05/21/2022 Lab Laboratory Medicine Vini Maki M.D., Ph.D. [address] [place] [phone] 05/21/2022 Appointment Radiology Vini Maki M.D., Ph.D. [address] [place] [phone] 05/21/2022 Office Visit Oncology Vini Maki M.D., Ph.D. [address] [place] [phone] 06/11/2022 Ancillary Procedure Ophthalmology Chas Shin M.D. [address] [place] [phone] 06/11/2022 Ancillary Procedure Ophthalmology Chas Shin M.D. [address] [place] [phone] 06/11/2022 Office Visit Ophthalmology Chas Shin M.D. [address] [place] [phone] documented as of this encounter Procedures Procedure [...] Organization Address City/State/ZIP Code [facility] documented in this encounter Visit Diagnoses Diagnosis Malignant Neoplasm Of Brain (HCC) documented in this encounter
--- OUTSIDE RECORDS SUMMARY | 2022-04-10 09:42 | XMS_ITS | Encounter Summary ---
:1970 Author Organization [facility] Address [address] [place] [address] Care Team Providers Name Role Phone Unavailable Primary Care Provider Unavailable Encounter Details Date Type Department Care Team Description 01/22/2022 Clinical Communication Department of Cliff Sumner, Radiation Oncology in [place], M.S. [facility] 200 [facility] [address] [place] [phone] Social History Tobacco Use Types Packs/Day Years [...] or relatives? How often do you attend christian or More than 4 times per year 01/07/2022 yazidi services? 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 Sex Assigned at Date Recorded Female 01/07/2022 11:11 AM CDT documented as of this encounter Miscellaneous Notes Telephone Encounter - Cliff Sumner M.D., M.S. - 01/22/2022 1:13 PM CDT Radiation Oncology 01/22/22 Mia Arias Colling Phone Call: I spoke to the patient's mother on the phone today. I updated her that we will see her in [facility] 01/28 for radiation follow-up with CT simulation and MRI at [facility]. Cliff Sumner M.D., M.S. documented in this encounter Plan of Treatment Upcoming Encounters Date Type Specialty Care Team Description 05/03/2022 Telemedicine Clinical Genomics Sanya Mehta M.D. [address] [place] [phone] 05/06/2022 Clinical Communication Admitting/Central Scheduling 05/09/2022 Office Visit Oncology Farzana Allen M.D. [address] [place] [phone] 05/17/2022 Clinical Communication Admitting/Central Scheduling 05/21/2022 Lab Laboratory Medicine Vini Maki M.D., Ph.D. [address] [place] [phone] 05/21/2022 Appointment Radiology Vini Maki M.D., Ph.D. [address] [place] [address] [phone] 05/21/2022 Office Visit Oncology Vini Maki M.D., Ph.D. [address] [place] [phone] 06/11/2022 Ancillary Procedure Ophthalmology Chas Shin M.D. [address] [place] [phone] 06/11/2022 Ancillary Procedure Ophthalmology Chas Shin M.D. [address] [place] [phone] 06/11/2022 Office Visit Ophthalmology Chas Shin M.D. [address] [place] [phone] documented as of this encounter Visit Diagnoses Not on filedocumented in this encounter
--- OUTSIDE RECORDS SUMMARY | 2022-04-10 09:42 | XMS_ITS | Encounter Summary ---
:1970 Author Organization [facility] Address [address] [place] [id number] Care Team Providers Name Role Phone Unavailable Primary Care Provider Unavailable Reason for Referral Outpatient (Routine) - Authorized Specialty Diagnoses / Procedures Referred By Contact Refer red To Contact Diagnoses Tumor Brain (HCC) Aphasia Benjamín Warner M.D. [address] [place] [address] Referral ID Status Reason Start Expiration Visits Visits Date Date Requested Authorized [id number] Authorized Patient 01/22/2022 01/22/2023 1 1 Preference hysical Therapy (Routine) - Authorized Specialty Diagnoses / Procedures Referred By Contact Refer red To Contact Diagnoses Tumor Brain (HCC) Abnormal Gait Non Orthopedic Lack Of Coordination Benjamín Warner M.D. [address] [place] [address] Referral ID Status Reason Start Expiration Visits Visits Date Date Requested Authorized [id number] Authorized Patient 01/22/2022 01/22/2023 1 1 Preference Outpatient (Routine) - Authorized Specialty Diagnoses / Procedures Referred By Contact Refer red To Contact Diagnoses Tumor Brain (HCC) Abnormal Gait Non Orthopedic Lack Of Coordination Benjamín Warner M.D. [address] [place] [address] Referral ID Status Reason Start Expiration Visits Visits Date Date Requested Authorized [id number] Authorized Patient 01/22/2022 01/22/2023 1 1 Preference Reason for Visit Auth/Cert Specialty Diagnoses / Procedures Referred By Contact Refer red To Contact Diagnoses Neoplasm of unspecified behavior of brain (HCC) Procedures ADMIT TO INPATIENT REHAB Referral ID Status Reason Start Date Expiration Date Visits Requ ested Visits Authorized [id number] 1 1 Encounter Details Date Type Department Care Team Description 01/17/2022 - Hospital Encounter [facility] Yolette Gleason M.D. [address] [place] [phone] Tumor Brain (HCC) (Primary Dx); [facility] [address] [place] [phone] [facility] [address] [place] [phone] Deficit Cognitive Communication; [place] [facility], Abnormal Gait Non Orthopedic; Fourth Floor Decline Functional Status; [address] [place] [address] Unsteadiness Non Orthopedic; [place], [place] Lack Of Coordi [facility]; [phone] Decline Cognitive [phone] Social History Tobacco Use Types Packs/Day Years [...] have completed or the highest Maulik, MEd, RETAIL SHIFT LEADER, 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 Sex [...] CDT REHABILITATION DISCHARGE SUMMARY BRIEF OVERVIEW Hospital: [facility] Discharge Provider: Michael De Los Santos M.D. [...] of this hospitalization and to establish a superintendent container terminal management plan. All medication changes should be [...] minor headache, but gabapentin 300 mg q.h.s. was added on 01/23 and this appeared to be helpful for her nighttime headaches and sleep. His family disco ntinued if she is no longer experiencing headaches [...] Oncology 01/31/2022 2:15 PM Sejal Resendiz M.S., [facility] [place] [facility] 02/07/2022 1:20 PM Farzana Allen [...] Her care was subsequently transferred here to [facility] where she then underwent a left temporoparietal craniotomy and resection of left temporoparietal region mass. 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 She is [...] family practice physician and will be staying at her daughter???s house. She states her right-sided weakness [...] occupational therapy, speech therapy, rehab nursing, medical aids social worker, and drafter automotive design layout. The patient made good progress and met [...] inpatient rehabilitation. Continue with PT, OT and STANDARDS ANALYST to achieve goals as stated above -Pain [...] Normal upper and lower limb [place]. Normal fylxrk-yrmf-ynytaj. Normal fwvg-dk-xxyk. Sensation: Normal light touch sensation throughout upper and lower limbs. No extinction to double simultaneous stimulation in upper and lower limbs. CONSULTS ORDERED THIS ADMISSION IP CONSULT TO CARE MANAGEMENT IP CONSULT TO RECREATIONAL THERAPY CONDITION AT DISCHARGE stable Discharge instructions were provided to the patient and caregiver(s). documented in this encounter Discharge Instructions Patient Clover Quinones, M.A., CLAUDIA-STANDARDS ANALYST - 01/22/2022 5:06 PM CDT SPEECH PATHOLOGY [...] improving recall of new information learning and improving ability to use strategies both for language and cognition. At time of discharge, Ms. Cedillo does require moderate and minimal cueing for language and cognition pending distractions, familiarity with topic and demand placed upon her to use both language/cognitive skills. External memory aides such as a pl michelle were discussed but need to be further addressed in the outpatient setting. A more comprehensive cognitive test such as the RBANS or an equivalent is suggested. From a language perspective, Ms. Cedillo does best when she allows extra time to communicate, keeps her spoken message simple and does not switch topics abruptly. Comprehension is facilitated [...] at a time, use self-talk, use a transit planner/calendar, take notes, and ask for repetition as needed Ms. Cedillo will benefit from further instruction on how to use her transit planner and language/cognitive efficiency strategies in a way that matches her current level of activity/routine after discharge from hospital. Recommend Speech Pathology to evaluate and treat. Frequency and duration to be determined by the evaluating clinician. Discharge recommendations were provided on 01/22/2022 by Clover Yoder M.A., CCC-STANDARDS ANALYST Contact Information: [facility], Department of Neurology, . Discharge Instr - [...] discharge home for meal preparation, medication management, manager financial services, child rearing, and household management. She benefits [...] recommendations; Muriel Cifuentes M.S., O.T. Contact information: [facility], [address], Vero Tse CRRN - 01/25/2022 9:01 AM CDT Outpatient Therapy: [facility] [place] [address] [facility] Follow Up: February 06, 2022 [place] [address] AttachmentsThe following attachments cannot be sent through Care Everywhere. Gabapentin (By mouth) (Burmese)documented in this encounter Medications at Time of [...] 01/25/2022 12:12 PM CDT Occupational Therapy Rehabilitation [facility] Inpatient Progress Note SUBJECTIVE Patient's Name: Mia Richardson Reason for Referral: OT Eval and Treat; [...] Date: 01/09/22 Patient/Caregiver Goals: Return to home. [place] with ADL and IADL tasks. To initiate [...] patient reported she liked to use her centrose grocery list prior to hospitalization. Education provided to use centrose list and check off items once obtained from store to improve time efficiency and memory with items obtained during grocery shopping. Communication Management Communication Management Activity: Phone management Communication Management Comments: Addressed phone managment as it relates to setting reminders/alarms on patient's mobile phone as cognitive strategy to assist with memory. Patient prefers to use [employer] calender. Educated on the option of using a [...] dressing, Assistance with meal preparation, Assistance with manager financial services, Assistance with transportation, Assistance with [...] Therapeutic exercise, Therapeutic modalities as needed, Orthosis gjnhvzmkhxz-sjkfpcaz-kzlldrl, Manual therapy Time Spent with Patient Therapeutic [...] collaboration with the patient. Clover Yoder M.A., [facility]-STANDARDS ANALYST - 01/25/2022 10:30 AM CDT Speech Language [...] (Writing down times of therapy in personal transit planner) Orientation: Oriented X4 Problem Solving: Impaired [...] for brain. At time of discharge, Mia needsmoderate cueing for both language and cognitive tasks. Mia described the [employer] pictures with adequate details; however lacked specificity. She continued to have difficulty with inferencing and reasoning even when provided cues. During an association task, Mia has difficulty stating the obvious response in 4/6 trials. Tone of voice when respondingto tasks or even in conversation tended to be with rising inflection as if she was unsure and not confident of her answer. When writing a brief [...] continue on target Plan Discharge Location: Unknown STANDARDS ANALYST Ongoing Services: Ongoing formal Speech Pathology services Frequency of Treatment: 1-2x/5-6 days per week Duration of Treatment: duration of rehab stay Rehab Potential: Good Lexi Syed P.Stanford, D.P.T. - 01/25/2022 8:17 AM CDT Physical Therapy Rehabilitation [facility] Inpatient Treatment SUBJECTIVE Patient's Name: Mia [...] Date: 01/09/22 Patient/Caregiver Goals: Return to home. [place] with ADL and IADL tasks. Precautions Other [...] of discha rge, patient schedule with outpatient PT/OT/STANDARDS ANALYST to address remaining deficits (high level balance, [...] Goal #2: Patient will demonstrate independence with kqx-re-mifvx transfers by discharge to allow for improved [...] Individual : 25 Minutes Lexi Syed P.T., D.P.T. Benjamín Warner M.D. - 01/25/2022 7:07 AM CDT SUBJECTIVE [...] next week, as her mother has repeatedly toldher that her acute worsening of symptoms prior to this hospital stay were a direct result of receiving this MRI. She states her mother told her this MRI likely scrambled some things around. I tried to provide some reassurance that this was unlikely, and it would be safe for her to get her MRI next week. She states that she has been sleeping much better after starting gabapentin, and will discuss continuing this with her outpatient providers. She had a BM yesterday. She is excited to discharge today Multidisciplinary discharge rounds: I participated in multidisciplinary bedside rounds today. Attendees included: patient, physician, bedside nurse, career education teacher, physical therapist and occupational therapist. Medical updates [...] Urinary Incontinence: No (01/24/22 1600 : Olga Najera R.N.) Physical Exam: General: [...] - Discharge today - Medications sent to [facility] ?? 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 Continue with PT, OT and STANDARDS ANALYST to achieve goals as stated above -Pain control: Continue acetaminophen 1,000 mg PO q6h PRN. -Seizure ppx: Continue Keppra 1,000 mg PO BID. Will remain on this until ANDRESSA follow up. -Continue dexamethasone taper. Scheduled to end 01/26 ?? #GERD -Continue pantoprazole 40 mg ?? FULL CODE as discussed with patient. Diet: Regular. Sutures/Gause: removed 01/24 DVT prophylaxis: Lovenox Bowel: Senna, MiraLAX and suppository as needed. Bladder: Currently voiding Disposition: discharging today Benjamín Warner MD PGY-2, PM&R Please contact the brain rehabilitation service pager [phone] with questions or concerns. Associated attestation - [...] her stay with us. More specifically, she hasimproved in her fine motor control, increased her [...] mask during entire session. Nicole Kong M.S., CCC-STANDARDS ANALYST - 01/24/2022 2:00 PM CDT Speech Language Pathology Communication/Cognitive Treatment- Inpatient Rehabilitation Unit Session Type: Treatment Length of Session: 30 minutes SUBJECTIVE Mia was seen today in her room. [...] Primary Mode of Expression: Verbal Primary Language: Burmese Generative Naming/Word Fluency: 61-80% accuracy Open Ended Questions: 81-99% accuracy Conversation: Impaired Impaired Conversation: Moderate Cognition Overall Cognitive Status: Impaired Arousal/Alertness: Appropriate responses to stimuli Attention: Impaired Sustained: Mild Alternating: Moderate Memory: (Writing down times of therapy in personal transit planner) Orientation: Oriented X4 Problem Solving: Impaired [...] continue on target Plan Discharge Location: Unknown STANDARDS ANALYST Ongoing Services: Ongoing formal Speech Pathology services Frequency of Treatment: 1-2x/5-6 days per week Duration of Treatment: duration of rehab stay STANDARDS ANALYST - Next Inpatient Appointment: 01/25/22 Rehab Potential: Good Electronically signed by Nicole Kong M.SSanjuanita, [facility]-STANDARDS ANALYST at 01/24/2022 3:54 PM CDT Jerald Almaraz MAndrea, [facility]-STANDARDS ANALYST - 01/24/2022 10:30 AM CDT Speech Language [...] (Writing down times of therapy in personal transit planner) Orientation: Oriented X4 Problem Solving: Impaired [...] to decrease frustration. Ms. Cedillo is encouraged torepeat back information to the speaker to ensure [...] continue on target Plan Discharge Location: Unknown STANDARDS ANALYST Ongoing Services: Ongoing formal Speech Pathology services Frequency of Treatment: 1-2x/5-6 days per week Duration of Treatment: duration of rehab stay STANDARDS ANALYST - Next Inpatient Appointment: 01/25/22 Rehab Potential: Good Clarisa Rodriguez - 01/24/2022 10:27 AM CDT Images from the original note were not included. Occupational Therapy Rehabilitation [facility] Inpatient Progress Note SUBJECTIVE Patient's Name: [...] Date: 01/09/22 Patient/Caregiver Goals: Return to home. [place] with ADL and IADL tasks. To initiate [...] pentagons from a model. Image shown below. Calvin Making Test Calvin making assessments require a variety of cognitive processes, including attention, visual search, scanning, sequencing, shifting, psychomotor speed, abstraction, cognitive flexibility, the abilityto execute and modify a plan of action, and the ability to maintain two trains of thought simultaneously. Calvin A is a simple trail making task. Average performance requires task completion in 29 seconds.Today, patient completed Calvin A in 28 seconds. Patient demonstrated 0 errors during task performance. Calvin B introduces an alternating condition. The average individual is able to complete Calvin B within 75 seconds. When discussing return to driving, research literature recommends a cut off score of 90 seconds. Today, patient completed Calvin B in 32 seconds, which is above the cutoff score for deficiency. Patient demonstrated 0 errors during task performance. Assessment was administered today with paper and pencil via standardized form. Admission (01/19) Discharge (01/24) Calvin A 32 seconds 28 seconds Calvin B 49 seconds 32 seconds Hand Testing: Right Hand Left Hand Model And Pattern Supervisor Handle Setting 2 - Score 1 (kg): [...] Present During Session: Muriel Cifuentes, CEC Assessment Mia is currently performing activities of [...] can I write this down? Patient completed Calvin Making Test administered via standardized form with paper and pencil. She completed Calvin A in 28 seconds improving from 32 seconds in her previous assessment. She completed Calvin B in 32 seconds improving from her previous score of 49 seconds. These score improvements indicate progress in patient's overall processing speed. Based on results of standardized testing, Mia's gross motor coordination has improved bilaterally since evaluation. Patient's grain cleaner strength and fine motor coordination results from [...] dressing, Assistance with meal preparation, Assistance with manager financial services, Assistance with transportation, Assistance with [...] Therapeutic exercise, Therapeutic modalities as needed, Orthosis cxdgftolett-[id number], Manual therapy Time Spent with Patient Evaluations [...] 89.3 kg (01/17/2022) Current Weight: 92.3 kg [place] Body Weight (Calculated) : 60.3 kg BMI [...] 97.7 kg Estimated Needs: Total Calorie Needs: 3866-8205 calories/day Method to Estimate Energy Needs: [place] (75% to Basal) Weight Used for Equation [...] about patient's nutritional care please contact pager [phone] on weekdays or [phone] on weekends/holidays. Benjamín Warner M.D. - 01/24/2022 7:57 AM CDT [...] medications, and sent her medications to the [facility] per her request. She will [...] Intake/Output Summary (Last 24 hours) at 01/24/2022 0757 Last data filed at 01/23/2022 1243 Gross per 24 hour Intake 960 ml Output -- Net 960 ml Bowel Incontinence: No (01/23/22 0900 : Olga Najera, R.N.) Unmeasured Urine Occurrence: 1 (per pt) (01/24/22 0700 : Olga Najera, R.N.) Urinary Incontinence: No (01/24/22 0700 : Olga Najera, R.N.) Physical Exam: General: Well-appearing, in no [...] Remove sutures today - Medications sent to [facility] ?? 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 Continue with PT, OT and STANDARDS ANALYST to achieve goals as stated above -Pain [...] Please contact the brain rehabilitation service pager [phone] with questions or concerns. Associated attestation - [...] limits her reports but she has told me that her headache is between 1 and 2 on multiple visits. We will proceed with family education and areworking towards discharge tomorrow to the care of her mother with follow-up oncologic care and therapy. Michael De Los Santos M.D., Ph.D. PPE use information for possible contact monitoring: PPE used during visit: Provider was wearing a mask and eye protection throughout entire session. Patient was NOT wearing mask during entire session. HrilLexi castillo P.T., D.P.T. - 01/24/2022 7:50 AM CDT [...] Date: 01/09/22 Patient/Caregiver Goals: Return to home. [place] with ADL and IADL tasks. Precautions Other [...] Goal #2: Patient will demonstrate independence with zbi-zn-nbmwg transfers by discharge to allow for improved [...] 01/23/2022 11:24 AM CDT Occupational Therapy Rehabilitation [facility] Inpatient Progress Note SUBJECTIVE Patient's Name: [...] Date: 01/09/22 Patient/Caregiver Goals: Return to home. [place] with ADL and IADL tasks. To initiate [...] The test imposes written verbal and multiple-step contextualtask requirements and patterns of performance are observed that relate to each level. Multiple sub-goals are used within each task to detect and objectively measure and quantify executive dysfunction. The Cognitive Performance Test (CPT) Select percentage of time patient was able to attend during session: 100% Source of report on Patient's Functional History: Patient Medbox task: 5.0/6 Shop Task: 5.0/6 Wash Task: 5.0/5 [place] Task: 5.0/5 Phone Task: 4.5/6 Dress Task: [...] Present During Session: GINA Levy Assessment Mia's right-sided inattention, right visual field [...] dressing, Assistance with meal preparation, Assistance with manager financial services, Assistance with transportation, Assistance with [...] Therapeutic exercise, Therapeutic modalities as needed, Orthosis ltxgzhyisle-thrhlhca-vtptkve, Manual therapy Time Spent with Patient Therapeutic [...] Physical Medicine and Rehabilitation Clover Yoder M.A., CCC-STANDARDS ANALYST - 01/23/2022 10:30 AM CDT Speech Language [...] (Writing down times of therapy in personal transit planner) Orientation: Oriented X4 Problem Solving: Impaired [...] her therapy, but information such as OT-Blond, short.We spoke of having more therapeutic information such as what was the most important take away or what was the feedback instead. She stated I needed those words when clinician assisted when she had difficulty with word finding when describing what we use the transit planner for. Mia did have some difficultyrecalling the brain strategies posted on her wall yesterday, but did share that she and OT put another strategy referring to looking to the left [...] 9/9 mental manipulation trials as information was atword level and she repeated the stimuli aloud [...] continue on target Plan Discharge Location: Unknown STANDARDS ANALYST Ongoing Services: Ongoing formal Speech Pathology services Frequency of Treatment: 1-2x/5-6 days per week Duration of Treatment: duration of rehab stay Rehab Potential: Good Benjamín Warner M.D. - 01/23/2022 7:45 AM [...] made worse by the slow steroid taper. Emmanancy did admit her headaches are worsened by [...] today. Attendees included: patient, physician, bedside nurse, career education teacher, physical therapist and occupational therapist. Medical updates were provided. Also discussed was progress toward patient centered goals, ongoing rehabilitation needs and dismissal planning. I have reviewed the current medication list. OBJECTIVE Temperature: [36.7 ??C] 36.7 ??C Resp Rate: [16] 16 Blood Pressure: (128-154)/(86-105) 129/88 SpO2: [97 %-100 %] 97 % Last Stool Occurrence: 1 (per patient) (01/22/22 1200 : Logan Irizarry L, R.N.) Intake/Output Summary (Last 24 hours) at 01/23/2022 0745 Last data filed at 01/22/2022 1800 Gross per 24 hour Intake 1490 ml Output -- Net 1490 ml Bowel Incontinence: No (01/22/22 1200 : Logan Irizarry, R.NSanjuanita) Unmeasured Urine Occurrence: 1 (01/20/22 2100 : [...] inpatient rehabilitation. Continue with PT, OT and STANDARDS ANALYST to achieve goals as stated above -Pain control: Continue acetaminophen 1,000 mg PO q6h PRN. -Seizure ppx: Continue Keppra 1,000 mg PO BID. Will remain on this until ANDRESSA follow up. -Continue dexamethasone taper ?? #GERD -Continue pantoprazole 40 mg po QAM ?? FULL CODE as discussed with patient. Diet: Regular. Sutures/Gause: can be removed 14 days post-operatively (around 01/24) DVT prophylaxis: Lovenox Bowel: Senna, MiraLAX and suppository as needed. Bladder: Currently voiding Disposition: 01/25; goal to home Benjamín Warner MD PGY-2, PM&R Please contact the brain rehabilitation service pager [phone] with questions or concerns. Associated attestation - [...] does better live with list than with verbalinstructions. Also noted are difficulties with word finding, [...] 01/23/2022 7:38 AM CDT Physical Therapy Rehabilitation [facility] Inpatient Treatment SUBJECTIVE Patient's Name: Mia [...] Date: 01/09/22 Patient/Caregiver Goals: Return to home. [place] with ADL and IADL tasks. Precautions Other [...] Goal #2: Patient will demonstrate independence with fuu-uf-nyirk transfers by discharge to allow for improved [...] 60 Minutes Lexi Syed P.T., D.P.T. Clarisa Rodriguez - 01/22/2022 12:36 PM CDT Occupational Therapy Rehabilitation [facility] Inpatient Progress Note SUBJECTIVE Patient's Name: [...] Date: 01/09/22 Patient/Caregiver Goals: Return to home. [place] with ADL and IADL tasks. To initiate [...] her own toughts during sequencing of task. Circle Test Circle Test is a symbol cancellation test that allows for a quantitative and qualitative assessment of visual inattention in the near extra personal space. If the patient has more than three omissions, then he/she is suspected of presenting with an attentional deficit. More severe deficits are suspected if more than six omissions occur. The patient's scanning strategy can be revealed by connecting thecircled bells according to the order in which [...] today in an unstandardized format on the [place] Integrated Therapy System ([employer]), which impacts the assessment's validity. Team Conference [...] this time. Outpatient OT recommended to address sfydmw-ri-ykhh and driving. Patient/Family Education: Taking cognitive breaks, [...] dressing, Assistance with meal preparation, Assistance with manager financial services, Assistance with transportation, Assistance with [...] Therapeutic exercise, Therapeutic modalities as needed, Orthosis riwhnbocdwb-nnjbtiyq-mqtghwk, Manual therapy Time Spent with Patient Therapeutic [...] Physical Medicine and Rehabilitation Interdisciplinary Team Conference [facility] 01/22/2022 11:30 AM CDT Patient Name: Mia Richardson Admit Date/Time: 01/17/2022 11:55 AM Date of : 1970 Sex: Female Room/Bed: 254/254-P Etiologic Diagnosis: Tumor Brain (HCC) Impairment Group: Brain Dysfunction Payor: Payor: [employer] [facility] [place] / Plan: [place] / Product Type: PPO / Anticipated Discharge Date: 01/25/22 Rehab Team Conference Participation Physician Commercial Real Estate Manager: Dr. Michael De Los Santos Senior Resident Present: Dr. Farhat Hernandez Nursing Commercial Real Estate Manager: Logan Irizarry RN CM/SW Commercial Real Estate Manager: Twan Montero RN CM/SW Second Commercial Real Estate Manager: JORGE Lambert PT Commercial Real Estate Manager: Lexi Syed, PT OT Commercial Real Estate Manager: KITA Mcgee and Muriel Cifuentes OT STANDARDS ANALYST Commercial Real Estate Manager: Clover Yoder [facility]-STANDARDS ANALYST OT Goal #1: By next ITC, patient [...] Goal #2: Patient will demonstrate independence with xxo-dc-vuksn transfers by discharge to allow for improved [...] independent with bed mobility, supervision assistance for ogt-ln-ktugg transfers and ambulation without assistive device due to mild instability as well as poor awareness of right side of environment. Supervision assistance using single hand rail for stairs with step over step pattern. Patient requires increased time to process commands and cues tomaintain right-sided awareness. Additional Team Conference Comments (OT): [...] this time. Outpatient OT recommended to address uaxnll-ai-cnbo and driving. Education Provided (OT): Taking cognitive breaks, external aids such as journal/calendar to assist with memory, visual scanning compensatory techniques Additional Team Conference Comments (STANDARDS ANALYST): Mia is demonstrating both a cognitive communication deficit and aphasia. She has difficulty recalling information and needs extra time to process through information. When word finding difficulties occur, she benefits from an unhurried approach to communicate. Repetition of information is important for new learning. Education Provided (STANDARDS ANALYST): Strategy training for both language and cognition [...] psychosocial issues, safety, transfers. . RDT Radha Davenport M.D. - 01/22/2022 10:31 AM CDT Brain Rehabilitation Medicine Fellow ITC Progress Note Ms. Cedillo was seen in her room this morning making her bed. She is doing well this morning and hasno concerns. OBJECTIVE PHYSICAL EXAMINATION General Appearance: Well [...] an environment with fewer distractions. - In STANDARDS ANALYST: Language and cognitive impairments with deficits in memory and language. Easy distraction and her anxiety are impairing her attention. She also has very disorganized thoughts and some word finding. ASSESSMENT / PLAN #1 Malignant Neoplasm Of Brain (HCC) #2 Tumor Brain (HCC) Medical Updates: She is doing well on her current medication regimen and is not having side effects from dexamethasone taper or Keppra. She is having headaches managed with tylenol, but worsened by herand her mother's anxiety. The team will watch the headaches as she continues her dexamethasone taperto make sure these are not connected. DME [...] Physical Medicine & Rehabilitation Clover Yoder M.A., [facility]-STANDARDS ANALYST - 01/22/2022 10:30 AM CDT Speech Language [...] (Writing down times of therapy in personal transit planner) Orientation: Oriented X4 Problem Solving: Impaired (Overcomplicates and difficulty shifting attention) Impulsive: Mildly impulsive Executive Functioning: Impaired Planning: Moderate Organization: Moderate Assessment This morning, Mia is present for therapy addressing cognition and language. She reports talking to boyfriend and son over the weekend. She found these interactions largely successful. Mia often overcomplicates tasks which was evidenced during a dual cognitive/language task when she tried to come up with two descriptions/words for each stimuli. She often repeated the question or stimuli back to clinician. My memory is garbage right now. She also often states the question back to c linician when clinician poses it to her to [...] resection for grade 3 astrocytoma, IDH wildtype. She is responding positively to therapy and cueing, [...] continue on target Plan Discharge Location: Unknown STANDARDS ANALYST Ongoing Services: Ongoing formal Speech Pathology services Frequency of Treatment: 1-2x/5-6 days per week Duration of Treatment: duration of rehab stay Rehab Potential: Good Lexi Syed P.Stanford, D.P.T. - 01/22/2022 7:52 AM CDT [facility] Patient seen for physical therapy [...] Date: 01/09/22 Patient/Caregiver Goals: Return to home. [place] with ADL and IADL tasks. Precautions Other [...] She did well following written instructions during [facility], however struggle to recall verbal [...] Goal #2: Patient will demonstrate independence with hvv-sf-pvoyj transfers by discharge to allow for improved [...] Time (min): 90 min Lexi Syed P.T., D.P.TSanjuanita Benjamín Warner M.D. - 01/22/2022 7:07 AM [...] R.N.) Urinary Incontinence: No (01/19/221955 : Janeth Ovalle RSanjuanitaN.) Physical Exam: General: Well-appearing, in no [...] inpatient rehabilitation. Continue with PT, OT and STANDARDS ANALYST to achieve goals as stated above -Pain [...] Please contact the brain rehabilitation service pager [phone] with questions or concerns. Associated attestation - [...] Patient Position: Sitting) Pulse 67 Temp 36.7 ??C (Oral) Resp 16 Ht 169 cm [...] are going very well and she is verypleased that she is now independent in the [...] Occurrence: 1 (01/20/22 2100 : Clarice Martinez, RSanjuanitaN.) Urinary Incontinence: No (01/19/221955 : Janeth Ovalle RSanjuanitaN.) Physical Exam: General: Well-appearing, in no [...] inpatient rehabilitation. Continue with PT, OT and STANDARDS ANALYST to achieve goals as stated above -Pain [...] Please contact the brain rehabilitation service pager [phone] with questions or concerns. Sweetie Landaverde M.S., O.T. - 01/20/2022 8:51 AM CDT Occupational Therapy Rehabilitation [facility] Inpatient Progress Note SUBJECTIVE Patient's Name: [...] Date: 01/09/22 Patient/Caregiver Goals: Return to home. [place] with ADL and IADL tasks. To initiate [...] patient's room in-betweentherapies. Currently Used Cognitive Strategies: Calendar/transit planner use, Use of assistive technology (i.e. smartphone), Making lists Cognitive Intervention: Functional cognitive activities, Generalizing cognitive strategies to functional tasks, Calendar/transit planner use Cognitive Intervention Comments: Patient shared excitement that she has just started using her transit planner again without feeling overwhelmed. Patient explained that she usually uses a transit planner to schedule her personal and work [...] Delivery: Assessed, Facilitated UE Dressing Items Included: government instructor shirt UE Dressing Level of Assistance: Supervision/Set-up [...] showering/bathing, Assistance with meal preparation, Assistance with manager financial services, Assistance with transportation, Assistance with housekeeping, Assistance [...] Therapeutic exercise, Therapeutic modalities as needed, Orthosis ecmsmempyci-bgwqwpoa-fdgyasy, Manual therapy Time Spent with Patient Therapeutic Interventions Home Management Training (min): 60 min Therapeutic Activity (min): 30 min Time Tracking Total Timed Units (min): 90 min Total Treatment Time (min): 90 min OT Individual: 90 Minutes Sweetie Landaverde M.S., O.T. Elizabet Ochoa, P.T. - 01/20/2022 8:24 AM CDT Physical Therapy Rehabilitation [facility] Inpatient Treatment SUBJECTIVE Patient's Name: Mia [...] Date: 01/09/22 Patient/Caregiver Goals: Return to home. [place] with ADL and IADL tasks. Patient Comments: [...] Goal #2: Patient will demonstrate independence with fbo-yb-yopoi transfers by discharge to allow for improved [...] PT Individual : 90 Minutes Elizabet Ochoa P.T. Sandra Rust D.O. - 01/20/2022 7:11 AM CDT SUBJECTIVE Ms. Cedillo is 51 y.o. 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 No acute events overnight and reports feeling well this morning. Reported sleeping well. She remains hemodynamically stable and has not required a p.r.n. dose of hydralazine. She continues to void without difficulty and does not require catheterization. Voided 7.5 L yesterday, net negative5 L. Last bowel movement was 01/19. I [...] inpatient rehabilitation. Continue with PT, OT and STANDARDS ANALYST to achieve goals as stated above -Pain control: Continue acetaminophen 1,000 mg PO q6h PRN. -Seizure ppx: Continue Keppra 1,000 mg PO BID. Will remain on this until ANDRESSA follow up. -Continue dexamethasone taper ?? #GERD -Continue pantoprazole 40 mg po QAM ?? FULL CODE as discussed with patient. Diet: Regular. Sutures/Gause: can be removed 14 days post-operatively (around 01/24) DVT prophylaxis: Lovenox Bowel: Senna, MiraLAX and suppository as needed. Bladder: Currently voiding Disposition: ELOS 10 days; goal to home Please contact the brain rehabilitation service pager [phone] with questions or concerns. Sandra Rust, DO PM&R PGY-2 Sweetie Landaverde M.S., O.T. - 01/19/2022 3:51 PM CDT Occupational Therapy Rehabilitation [facility] Inpatient Progress Note SUBJECTIVE Patient's Name: [...] Date: 01/09/22 Patient/Caregiver Goals: Return to home. [place] with ADL and IADL tasks. To initiate [...] Delivery: Assessed, Facilitated UE Dressing Items Included: government instructor shirt UE Dressing Level of Assistance: Supervision/Set-up [...] need for further assessment. Total LISET III Welsh Version A. Score: 81/100 Domain scores: Attention: [...] validity or sensitivity with this patient population. Calvin Making Test Calvin making assessments require a variety of cognitive processes, including attention, visual search, scanning, sequencing, shifting, psychomotor speed, abstraction, cognitive flexibility, the abilityto execute and modify a plan of action, and the ability to maintain two trains of thought simultaneously. Calvin A is a simple trail making task. Average performance requires task completion in 29 seconds.Today, patient completed Calvin A in 32 seconds. Patient demonstrated 0 errors during task performance. Calvin B introduces an alternating condition. The average individual is able to complete Calvin B within 75 seconds. When discussing return to driving, research literature recommends a cut off score of 90 seconds. Today, patient completed Calvin B in 49 seconds, which is below [...] showering/bathing, Assistance with meal preparation, Assistance with manager financial services, Assistance with transportation, Assistance with housekeeping, Assistance [...] Therapeutic exercise, Therapeutic modalities as needed, Orthosis vaqgzwpuvtr-sqttsfyn-wkpaqua, Manual therapy Time Spent with Patient Therapeutic Interventions Home Management Training (min): 60 min Therapeutic Activity (min): 30 min Time Tracking Total Timed Units (min): 90 min Total Treatment Time (min): 90 min OT Individual: 90 Minutes Sweetie Landaverde M.S., O.T. Kylie Lara M.S., [facility]-STANDARDS ANALYST - 01/19/2022 1:55 PM CDT Speech Language [...] complex maze. She completed a symbol trail task,attending to two parameters with 10/10 accuracy. Verbal [...] require the skills of certified speech/language pathologist to determine best cueing strategies and task sequences to [...] continue on target Plan Discharge Location: Unknown STANDARDS ANALYST Ongoing Services: Ongoing formal Speech Pathology services Frequency of Treatment: 1-2x/5-6 days per week Duration of Treatment: duration of rehab stay Rehab Potential: Good Elizabet Ochoa P.T. - 01/19/2022 12:49 PM [...] Date: 01/09/22 Patient/Caregiver Goals: Return to home. [place] with ADL and IADL tasks. Patient Comments: [...] leg 7-10 seconds (3 reps), L leg 15-20seconds (2 reps) - high arm guard, lowers center of gravity for more stability. tandem stance 10 secx 2 with cga - minAof1. static stance [...] 3: in PM took outside to the [place]. had patient path find from south end [...] higher level balance with contact guard assistance tominimal assistance of 1. Ambulating on uneven surfaces [...] Goal #2: Patient will demonstrate independence with twz-wo-fbqat transfers by discharge to allow for improved [...] Incontinence: No (01/19/22 0245 : Shilpa Kennedy R.NSanjuanita) Physical Exam: General: Well-appearing, in no acute [...] inpatient rehabilitation. Continue with PT, OT and STANDARDS ANALYST to achieve goals as stated above -Pain [...] Please contact the brain rehabilitation service pager [phone] with questions or concerns. Sandra Rust, DO PM&R PGY-2 Associated attestation - Francois Gonzalez M.D. - 01/19/2022 12:13 PM CDT I saw and evaluated the patient, participating in the hill portions of the service. I reviewed the resident/fellow???s note. I agree with the resident/fellow???s findings and plan. Additionally Ms Cedillo expressed concern about her LMWH and her hypertension yesterday afternoon. I discussed the situation with her and answered her questions. Ms. [...] remains hemodynamically stable. She denies any headaches or nausea this morning. She was excited that she was able to shower last night and is looking forward to working with therapy today. She remains hemodynamically stable. She does discuss her ongoing difficulty with sleep. She reports that last night she felt safe around 10 30 and woke up around 430 or 5:00 a.m. Multidisciplinary discharge rounds: I participated in multidisciplinary bedside rounds today. Attendees included: patient, physician, bedside nurse, career education teacher, physical therapist and occupational therapist. This is the patient's first bedside rounds. We provided medical updates and introduction to team members and roles. Then we reviewed patient-centered goals including improved cognition and short term memory, improved balance, improved independene and functionality I [...] Incontinence: No (01/18/22 0000 : Shilpa Kennedy, R.N.) Physical Exam: General: Well-appearing, in no [...] inpatient rehabilitation. Continue with PT, OT and STANDARDS ANALYST to achieve goals as stated above -Pain control: Continue acetaminophen 1,000 mg PO q6h PRN. -Seizure ppx: Continue Keppra 1,000 mg PO BID. Will remain on this until ANDRESSA follow up. -Continue dexamethasone taper ?? #GERD -Continue pantoprazole 40 mg po qAM ?? FULL CODE as discussed with patient. Diet: Regular. Sutures/Gause: can be removed 14 days post-operatively (around 01/24) DVT prophylaxis: Lovenox Bowel: Senna, miralax and suppository as needed. Bladder: Currently voiding Disposition: ELOS 10 days; goal to home Benjamín Warner MD PGY-2, PM&R Please contact the brain rehabilitation service pager [phone] with questions or concerns. Associated attestation - [...] Labs reviewed and are unremarkable, serum sodium isstable at 137. She has not been requiring oxycodone so will discontinue. She had difficulty with sleep but prefers nonpharmacologic sleep strategies. Multidisciplinary discharge rounds: I participated in multidisciplinary bedside rounds today. Attendees included: patient, family member(s), physician, bedside nurse, career education teacher, physical therapist, occupational therapist, Social work, and [...] Sex: Female Room/Bed: 254/254-P Payor Info: Payor: [facility] / Plan: [place] / Product Type: PPO / Etiologic Diagnosis: Tumor Brain (HCC) Admit Date/Time: 01/17/2022 11:55 AM Estimated Length of Stay: Estimated Length of Stay: 10 days Anticipated Discharge Destination: 01- Home (private home/apt., board/care, assisted living, fdc, transitional living) The following care plan has [...] Projected Minutes/Day: 90 OT Projected Days/Week: 5 STANDARDS ANALYST Projected Minutes/Day: 30 STANDARDS ANALYST Projected Days/Week: 5 Expected Functional Outcomes: Expected [...] BID for seizure 3. LBM 01/17 Johnnie Beltre R.Ph. - 01/17/2022 2:43 PM CDT Images [...] see H&P/Admission note by Benjamín Warner MD ([phone]) for additional details. ADMISSION ICG Adult; Brain Dysfunction Brain Dysfunction Non-Traumatic (2.1) Chief Complaint Tumor Brain (HCC) History of Present Illness Briefly, Ms Nguyen is a right hand dominant female with [...] well as double vision. She has been having fluctuating headaches but this has improved from initial onset. OBJECTIVE Physical Exam I agree with the resident exam findings. On my exam, she is wearing glasses and she appears to have partial right visual field deficit. Otherwise she has [...] living, and adaptive equipment needs assessment. Physical Therapy shall work on lower extremity range of motion, lower extremity strengthening and stretching as functionally indicated, standing and transfers, and ambulation with/without braces and/or gait aids. SpeechTherapy shall work on expression and cognition. Rehabilitation nursing shall monitor vital signs, behavior, and cognition, monitor and promote medication compliance, provide consistent carry- over of rehabilitation interventions and approaches at the bedside, and offer diagnosis-specific education to the patient's family members. The nurse career education teacher shall assist with dismissal planning. I have [...] Dependent; 8= Unk; 9= NA) Level of [place]: Independent with ADLs and functional transfers ADL [...] Her care was subsequently transferred here to [facility] where she then underwent a left temporoparietal craniotomy and resection of left temporoparietal region mass. 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 She is [...] family practice physician and will be staying at her daughter???s house. She states her right-sided weakness [...] Right sided visual field deficit. No dysconjugate gaze.No facial droop. Tongue protrudes midline. Palate elevates symmetrically. Motor/Speech: No dysarthria appreciated. Normal prosody, phonation, resonation. Language: Expressive aphasia. Frequent paraphasic errors for which she was occasionally aware of. She had tangential thoughts. Able to name whole objects in some parts with intact repetition. Able to follow simple commands but struggled with multistep commands needing frequent payroll examiner's to carry out this execution Muscle [...] Normal upper and lower limb [place]. Normal xkfzvy-ysfl-aoummj. Normal xwrk-zg-hjwg. Sensation: Normal light touch sensation throughout upper [...] nursing care, rehabilitation psychologist evaluation and treatment, with physiatry to monitor the changing neurological clinical status, manage new and previously existing medical conditions, and coordinate care among rehabilitation disciplines. Please see preadmission assessment screen dated today for inpatient rehabilitation goals. OT to workon upper extremity range of motion, fine motor coordination activities, activities of daily living, instrumental activities of daily living, review of adaptive equipment needs. PT to work on range of motion of the lower extremities, strengthening and stretching [...] provide diagnosis-specific education to patient's family members. Nursing community service officer coordinator to assist with dismissal planning. 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 Continue with PT, OT and STANDARDS ANALYST to achieve goals as stated above -Pain [...] Please contact the brain rehabilitation service pager [phone] with questions or concerns. documented in this encounter Consult Notes Juan Carlos Butler P.T., Pillo.P.T. - 01/18/2022 4:46 PM CDT Physical Therapy Rehabilitation [facility] Inpatient Evaluation/Treatment SUBJECTIVE Referring/Attending Provider: Yolette Gleason M.D. Patient's Name: Mia Richardson Reason for Referral: PT Evaluate and treat - Brain IRF Medical Diagnosis: 1. Tumor Brain (HCC) 2. Aphasia 3. Deficit Cognitive Communication 4. Abnormal Gait Non Orthopedic Onset Date: 01/09/22 Payor: [employer] / Plan: [place] / Product Type: PPO / PERTINENT MEDICAL/ SURGICAL HISTORY: Patient Active Problem List Diagnosis ??? Malignant Neoplasm Of Brain (HCC) ??? Tumor Brain (HCC) Past Surgical History: Procedure Laterality Date ??? CRANIOTOMY - STEREOTACTIC Left 01/10/2022 Procedure: Asleep left temporoparietal stereotactic craniotomy tumor resection, speech mapping, supine position, intraoperative MRI, BK ultrasound.; Surgeon: Charles Ivey M.D., Ph.D.; Location: [facility] OR ??? CRANIOTOMY FOR TUMOR Left [...] to help) Patient/Caregiver Goals: Return to home. [place] with ADL and IADL tasks. 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 Prior Mobility/Functional Transfers Level of [place]: Independent Home Living Type of Home: House [...] independent with bed mobility, supervision assistance for ejr-lf-xcjuo transfers and ambulation without assistive device due to mild instability as well as poor awareness of right side of environment. Supervision assistance using single hand rail for stairs with step over step pattern. Patient requires increased time to process commands and cues tomaintain right-sided awareness. Quality Indicators: Roll Left and [...] CARE Score - Sit to Stand: 4 Chair/Wso-vz-Pcvqz Transfer Assistance Needed: Supervision CARE Score - Chair/Piw-dh-Wpieu Transfer: 4 Car Transfer Assistance Needed: Supervision [...] to process simple commands and struggles to recall her room number or location in afternoon session [...] Goal #2: Patient will demonstrate independence with boi-ms-hbmhs transfers by discharge to allow for improved [...] 90 Minutes Juan Carlos Butler P.T., D.P.T. MichaelClarisa Pillo - 01/18/2022 4:26 PM CDT [facility]Treatment SUBJECTIVE Referring/Attending Provider: Francois Gonzalez M.D. Patient's Name: Mia Richardson Reason for Referral: OT Evaluate and Treatment; IRF Brain Unit Medical Diagnosis: 1. Tumor Brain (HCC) 2. Aphasia 3. Deficit Cognitive Communication 4. Abnormal Gait Non Orthopedic Onset Date: 01/09/22 Payor: [employer] / Plan: [place] / Product Type: PPO / PERTINENT MEDICAL / SURGICAL HISTORY: Patient Active Problem List Diagnosis ??? Malignant Neoplasm Of Brain (HCC) ??? Tumor Brain (HCC) Past Surgical History: Procedure Laterality Date ??? CRANIOTOMY - STEREOTACTIC Left 01/10/2022 Procedure: Asleep left temporoparietal stereotactic craniotomy tumor resection, speech mapping, supine position, intraoperative MRI, BK ultrasound.; Surgeon: Charles Ivey M.D., Ph.D.; Location: [facility] OR ??? CRANIOTOMY FOR TUMOR Left 12/05/2021 ??? 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 SeeHospital Admission History and Physical for full history of present illness. Precautions Other Precautions: fall risk, decreased safety awareness, right visual field cut Patient/Caregiver Goals: Return to home. [place] with ADL and IADL tasks. To initiate asking questions to medical team and to family members. 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 She [...] task. Hand Testing: Right Hand Left Hand Model And Pattern Supervisor Handle Setting 2 - Score 1 (kg): [...] limits as indicated by standardized testing scores. Model And Pattern Supervisor/pinch strength within normal limits (see scores above). [...] dressing, Assistance with meal preparation, Assistance with manager financial services, Assistance with transportation, Assistance with [...] Therapeutic exercise, Therapeutic modalities as needed, Orthosis jbsierhdkbw-ujaihmcu-gvodbhp, Manual therapy Occupational Profile and History review: [...] in collaboration with the patient. Taina Velazquez L.I.C.S.W. M.S.Yasmeen. - 01/18/2022 1:00 PM CDTAssociated Order(s): IP CONSULT TO CARE MANAGEMENT Psychosocial Assessment SUBJECTIVE Assessment Information Referral Source: Provider/Service Referral Name: Physical Medicine and Rehabilitation Referral Reason: Psychosocial assessment, Coping, adjustment and support, Discharge Planning Previous assessment done on: 01/14/22 Previous assessment done by: Paulina Jiménez RN Primary Language: Burmese Imager Services Used: No Sexuality/Pronoun: Straight (not lesbian or mijares) She/Her/Hers Person(s) present during interview: patient Disclaimer: They were advised of the various topics that will be assessed during this evaluation. They consented to proceed. The information provided in the assessment is based on review of the medicalrecord as well as the face to face [...] Caregiver: family Caregiver Information: Caregiver Name: Libby Dyer Caregiver Relationship: Mother Caregiver Patient's Home Environment: [...] self, Attitude of family Financial/Insurance Primary insurance: [facility] Secondary insurance: N/A Does the patient have any financial concerns? No Advance Directives Legal Decision Maker: Self Advance Directives Status: None on file Baseline Functional Status Baseline Activities of Daily Living Mobility: Assistance of one Dressing: Needs assistance Feeding: Independent Bathing: Needs assistance Grooming: Needs assistance Toileting: Needs assistance Behavior: Appropriate, Pleasant, Calm, Cooperative, Oriented Communication: Can write, Talks, Understands speaking, Understands Burmese, Reads Shopping: Needs assistance Transportation: Support from family Medication Management: Needs assistance Housekeeping: Needs assistance Meal Prep: Needs assistance Managing Finances: Needs assistance Assistive Devices: Cellphone, Eyeglasses Baseline Services/Resources Primary care clinic and provider: [facility]// Marie Nettles MD Ms. Cedillo [...] and Safety Risk Assessment: C-SSRS: Utilizing the [place] Suicide Risk Severity Scale (C-SSRS), the patient [...] an assessment following the patient's admission to [place] [address]. Cleaner And Polisher introduced self and the role of social work in the inpatient rehabilitation setting. It was discussed with the patient that staff are mandated reporters and she reported understanding. Ms. Cedillo reported that she plans to return home upon discharge from inpatient rehabilitation. Shestated that she lives with her son in a single-level, second- story apartment in [place]. She noted that her adult daughter arrived this week and will be staying with her to provide assistance. She shared that her mother, Libby, is a retired family practice physician and has been staying with them for several weeks since her diagnosis and will continue to stay with them to be a support during her recovery. Ms. Cedillo expressed that she does not have concerns about the layout of her home environment or her ability to mobilize safely within it. 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 She reflected on [...] support and discussion of community resources. Анна Balderas.Keegan.Yasmeen., M.S.W. 01/18/2022 Clover Yoder M.A., CCC-STANDARDS ANALYST - 01/18/2022 10:30 AM CDT Speech Language Pathology Communication/Cognitive Evaluation - Inpatient Rehabilitation Unit Session Type: Treatment Length of session: 30 minutes SUBJECTIVE Referred By: [facility] History: Ms. Cedillo is a right handed 51 y.o. female who was admitted to the [place] [facility] [address] Inpatient Rehabilitation Unit on 01/17/2022 due to resection of brain tumor. Ms. Cedillo's medical history is well documented in the electronic medical record, please refer to admission notes for full history. Briefly, Ms. 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 Ms. Cedillo previously received Speech Pathology services addressing aphasia and cognition. Speech Pathology consult was received for evaluation of aphasia and cognitive communication. Prior Level of Functioning: Ms. Cedillo was previously independent with all ADL and IADLs. She lives with her significant other in [place], [place]. 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 Highest level of education completed was an advance college degree. Patient/Family Goal(s): To express, comprehend and remember new information. Pain: No pain reported at time of evaluation. General Family/Caregiver Present: No Arousal/Alertness: Appropriate responses to stimuli Behavior: Alert, Cooperative, Distractible, Pleasant mood OBJECTIVE Objective Session Data Motor Speech Voice: Within Normal Limits (WNL) Resonance (FINISHED CARPET INSPECTOR Function): Within Normal Limits (WNL) Articulation: Within [...] Primary Mode of Expression: Verbal Primary Language: Burmese Generative Naming/Word Fluency: 61-80% accuracy Open Ended [...] Turn Taking: Mild Assessment This morning, Ms. Cedillo (Mia) was referred to Speech Pathology for difficulties [...] more complex two step commands. When conversation becamemore complicated she had difficulty following along and [...] concerns with memory and showed me her transit planner on her tray table that she wrote down times of therapy in today. Mia was able to list 5 things she would buy from [employer] or [employer] but only after moderate cueing. Do you want me to be detailed? She [...] related to language and cognition. She will benefitfrom skilled Speech therapy two times a day [...] continue on target Plan Discharge Location: Unknown STANDARDS ANALYST Ongoing Services: Ongoing formal Speech Pathology services Frequency of Treatment: 1-2x/5-6 days per week Duration of Treatment: duration of rehab stay STANDARDS ANALYST - Next Inpatient Appointment: 01/19/22 Rehab Potential: Good documented in this encounter Nursing Notes Maritza Guerrero R.N. - 01/25/2022 12:12 PM CDT Shift Goals: Clinical Goals for the Shift: Patient will prepare for discharge. Identify possible barriers to meeting goals/advancing plan of care: none End of Shift Summary: Patient discharged to home with mother with all belongings. They picked up medications from [facility] pharmacy. RN reviewed discharge paperwork and [...] injury Outcome: Adequate for Discharge Maritza Guerrero R.N. - 01/25/2022 12:12 PM CDT 01/25/22 The [...] Patient will need a copy of her [place] appointment guide. Rehabilitation Services- [place] [address] Nursing should fax AVS facility and 3 days of therapy notes at time of dismissal. ?? Post Hospital Follow Up: February 06, 2022 Dr. Mohamud [address] [address] Nursing should fax AVS facility and dismissal [...] outpatient therapy after discharge. Rehabilitation Services - [address] [address] Nursing should fax [facility]S facility and 3 days of therapy notes at time of dismissal. Primary Care: [address] [address] Nursing should fax AVS facility and dismissal [...] Her care was subsequently transferred here to [facility] where she then underwent a left temporoparietal craniotomy and resection of left temporoparietal region mass. 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 She is [...] family practice physician and will be staying at her daughter???s house. She states her right-sided weakness [...] occupational therapy, speech therapy, rehab nursing, medical aids social worker, and drafter automotive design layout. The patient made good progress and met [...] inpatient rehabilitation. Continue with PT, OT and STANDARDS ANALYST to achieve goals as stated above -Pain [...] Normal upper and lower limb [place]. Normal vbjxjg-qqnk-gfxtgp. Normal zmer-mw-rgpl. Sensation: Normal light touch sensation throughout upper and lower limbs. No extinction to double simultaneous stimulation in upper and lower limbs. documented in this encounter Plan of Treatment Upcoming Encounters Date Type Specialty Care Team Description 05/03/2022 Telemedicine Clinical Genomics Sanya Mehta M.D. [address] [place] [phone] 05/06/2022 Clinical Communication Admitting/Central Scheduling 05/09/2022 Office Visit Oncology Farzana Allen M.D. [address] [place] [phone] 05/17/2022 Clinical Communication Admitting/Central Scheduling 05/21/2022 Lab Laboratory Medicine Vini Maki M.D., Ph.D. [address] [place] [phone] 05/21/2022 Appointment Radiology Vini Maki M.D., Ph.D. [address] [place] [phone] 05/21/2022 Office Visit Oncology Vini Maki M.D., Ph.D. [address] [place] [phone] 06/11/2022 Ancillary Procedure Ophthalmology Chas Shin M.D. [address] [place] [phone] 06/11/2022 Ancillary Procedure Ophthalmology Chas Shin M.D. [address] [place] [phone] 06/11/2022 Office Visit Ophthalmology Chas Shin M.D. [address] [place] [phone] Scheduled Referrals Name Type Priority Associated Diagnoses Order S chedule External referral Outpatient Referral Routine Tumor Brai n (HCC) Ordered: OT (non-[place]) Abnormal Gait Non 2 Orthopedic Lack Of Coordination External referral Outpatient Referral Routine Tumor Brai n (HCC) Ordered: PT (non-[place]) Abnormal Gait Non 2 Orthopedic Lack Of Coordination External referral Outpatient Referral Routine Tumor Brai n ([facility]) Ordered: speech therapy Aphasia 01/22/2022 (non-[place]) documented as of this encounter Procedures Procedure Name Priority Date/Time Associated Diagnosis Comme nts BASIC METABOLIC Routine 01/22/2022 6:48 AM Result s for this PANEL, S/P CDT procedure are i n the results section. BASIC METABOLIC Routine 01/18/2022 9:38 AM Result s for this PANEL, S/P CDT procedure are i n the results section. documented in this encounter Results Basic Metabolic Panel (01/22/2022 6:48 AM CDT) athologist Signature Potassium, S 5.1 3.6 - [...] 01/22/2022 DTL Black/ mL/min/BSA 7:49 AM CDT [place] Comment: ----ADDITIONAL INFORMATION---- Estimated GFR calculated using [...] City/State/ZIP Code Phon e Number [facility] - [address] [place] [phone] [place] [address] [facility] 200 [facility] Basic Metabolic Panel (01/18/2022 9:38 AM CDT) P athologist Signature Potassium, S 4.6 3.6 - [...] 01/18/2022 DTL Black/ mL/min/BSA 11:25 AM CDT [place] Comment: ----ADDITIONAL INFORMATION---- Estimated GFR calculated using [...] / Volume Laterality Blood (Blood, 01/18/2022 9:38 AM 01/19/20 Venous) CDT 10:17 AM CDT Benjamín Warner M.D. LAB BLOOD ADD-ON Performing Organization Address City/State/ZIP Code Phon e Number [facility] - [address] [place], [place] [address] [facility] [place] [address] [facility] [address] documented in this encounter [...] 1,000 mg Given 01/18/2022 4:00 AM CDT 1,000 mg (TYLENOL) 1,000 mg, oral, Every 6 [...] mg, oral, Bedtime PRN, sleep, Starting on Bee 2 at 1624 methyl salicylate-menthol 15-10 % cream 1 application 1 application, topical, 2 times daily PRN, muscle/join t pain, Starting on 01/22/[address] tablet 40 mg [...] 0122 (Given - Pro vider: Susana Wiggins RGiovani. - Comment: request)0899 (Given - Provider: Olga Najera, R.Kierra.)1517 (Given - Provider: Olga Najera, R.N.)2004 (Given - Provider: Meche Haywood, R.N.) 0259 (Given - Provider: Meche [place]wood, R.N.)0755 (Given - Provider: Olga Najera, R.Kierra.)1512 (Given - Provider: Olga Najera, R.Kierra.)210 (Given - Provider: Phil Koroma R.N.) 0438 (Given - Provider: Phil Koroma R.N.)0809 (Given - Provider: Maritza Guerrero R.N.) 1 mg, oral, Every 6 hours, First dose (a fter last modification) on Fri01/23/22 at 0315, For 16 doses dexAMETHasone tablet 2 mg (DECADRON) (COMPLETED) 0123 (Given - Provider: Susana Wiggins R.N.) 2 mg, oral, Once, On Fri01/23/22 at 0215, For 1 dose enoxaparin injection 40 mg (LOVENOX) 0829 (Not Given - Provider: Olga Najera R.N. - Reason: Patient/family refused) 075 (Not Given - Provider: Olga Najera R.N. - Reason: Patient/family refused) 0809 (Not Given - Provider: Maritza Guerrero R.N. - Reason: Patient/family refused) 40 mg, subcutaneous, Daily, First dose on Fri01/18/22 at 0900 gabapentin capsule 300 mg (NEURONTIN) 2002 (Given - Pr ovider: Meche Haywood, R.N.) 2105 (Given - Provider: Phil Koroma R.N.) 300 mg, oral, Daily at bedtime, First dose on Fri01/23/22 at 2100 levETIRAcetam tablet 1,000 mg (KEPPRA) 0829 (Given - P rovider: Olga Najera R.N.)2002 (Given - Provider: Meche [place], RSanjuanitaN.) 075 (Given - Provider: Olga Najera R.N.)2105 (Given - Provider: Phil Koroma R.N.) 0809 (Given - Provider: Maritza Guerrero RAquilino) 1,000 mg, oral, 2 times daily, First dos e (after last modification) on Fri01/17/[address] tablet 40 mg (PROTONIX) 0620 (Given - Provider: Susana Wiggins R.N.) 0615 (Given - Provider: Meche Haywood R.N. ) 0439 (Given - Provider: Phil Koroma RAquilino)0755 (Canceled Entry - Provider: Maritza Guerrero R.N. - Comment: dose given early) 40 mg, oral, Daily before breakfast, Fir st dose (after last modification) on Fri01/18/22 at 0700, Swallow whole. Do NOT crush, chew, or split tablet. PRN Medication Order 01/23/2022 01/24/2022 01/25/2022 acetaminophen tablet 1,000 mg (TYLENOL) 1043 (Given - Provider: Renetta Acosta RSanjuanitaN.)1700 (Given - Provider: Olga Najera R.N.) 0259 (Given - Provider: Meche Haywood R.N.)1512 (Given - Provider: Olga Najera R.N.)2106 (Given - Provider: Phil Koroma R.N.) 1,000 mg, oral, Every 6 hours PRN, [...] application 1 application, topical, 2 times daily NV N, muscle/joint pain, Starting on Fri01/22/22 at [...] oral, Daily PRN, constipation, Sta rting on Fri01/20/22 at 1115, Ordered sequence of administration: polyethylene glycol, then bisacodyl until BM achieved. Avoid mixing with starch-based thickened liquids. sennosides tablet 17.2 mg (SENOKOT) 17.2 mg, oral, Daily PRN, constipation, Starting on Fri01/20/22 at 1115 documented in this encounter
--- OUTSIDE RECORDS SUMMARY | 2022-04-10 09:42 | XMS_ITS | Encounter Summary ---
:1970 Author Organization [facility] Address [address] [place] [address] Care Team Providers Name Role Phone Unavailable Primary Care Provider Unavailable Encounter Details Date Type Department Care Team Description 01/29/2022 Orders Only Department of Rebeca Valle Malignan t Neoplasm Of Oncology in P.A.-C., M.S. Brain (HCC) (Primary [place], [place] 200 [facility] Dx) [address] [place] [phone] Social History Tobacco Use Types Packs/Day Years [...] have completed or the highest Maulik, MEd, INK TECHNICIAN, 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 Sex Assigned at Date Recorded Female 01/07/2022 11:11 AM CDT documented as of this encounter Plan of Treatment Upcoming Encounters Date Type Specialty Care Team Description 05/03/2022 Telemedicine Clinical Genomics Sanya Mehta M.D. [address] [place] [phone] 05/06/2022 Clinical Communication Admitting/Central Scheduling 05/09/2022 Office Visit Oncology Farzana Allen M.D. [address] [place] [phone] 05/17/2022 Clinical Communication Admitting/Central Scheduling 05/21/2022 Lab Laboratory Medicine Vini Maki M.D., Ph.D. [address] [place] [phone] 05/21/2022 Appointment Radiology Vini Maki M.D., Ph.D. [address] [place] [phone] 05/21/2022 Office Visit Oncology Vini Maki M.D., Ph.D. [address] [place] [phone] 06/11/2022 Ancillary Procedure Ophthalmology Chas Shin M.D. [address] [place] [phone] 06/11/2022 Ancillary Procedure Ophthalmology Chas Shin M.D. [address] [place] [phone] 06/11/2022 Office Visit Ophthalmology Chas Shin M.D. [address] [place] [phone] documented as of this encounter Visit Diagnoses Diagnosis Malignant Neoplasm Of Brain (HCC) - Prim uyen documented in this encounter
--- OUTSIDE RECORDS SUMMARY | 2022-04-10 09:42 | XMS_ITS | Encounter Summary ---
:[address] [facility] Address [address] [place] [address] Care Team Providers Name Role Phone Unavailable Primary Care Provider Unavailable Encounter Details Date Type Department Care Team Description 01/30/2022 Clinical Communication Department of Cliff Sumner, Radiation Oncology in [place], M.S. [facility] 200 [facility] [address] [place] [phone] Social History Tobacco Use Types Packs/Day Years [...] have completed or the highest Maulik, MEd, BEAD WIRE TAPER, 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 Sex Assigned at Date Recorded Female 01/07/2022 11:11 AM CDT documented as of this encounter Miscellaneous Notes Telephone Encounter - Cliff Sumner M.D., M.S. - 01/30/2022 12:41 PM CDT Radiation Oncology 01/30/22 Mia Arias Colling Phone Call: I spoke to the patient and her mother on the phone today. I relayed the results of her planning MRI,namely that demonstrated markedly reduced edema and a [...] Telemedicine Clinical Genomics Sanya Mehta M.D. [address] [place] [phone] 05/06/2022 Clinical Communication Admitting/Central Scheduling 05/09/2022 Office Visit Oncology Farzana Allen M.D. [address] [place] [phone] 05/17/2022 Clinical Communication Admitting/Central Scheduling 05/21/2022 Lab Laboratory Medicine Vini Maki M.D., Ph.D. [address] [place] [phone] 05/21/2022 Appointment Radiology Vini Maki M.D., Ph.D. [address] [place] [phone] 05/21/2022 Office Visit Oncology Vini Maki M.D., Ph.D. [address] [place] [phone] 06/11/2022 Ancillary Procedure Ophthalmology Chas Shin M.D. [address] [place] [phone] 06/11/2022 Ancillary Procedure Ophthalmology Chas Shin M.D. [address] [place] [phone] 06/11/2022 Office Visit Ophthalmology Chas Shin M.D. [address] [place] [phone] documented as of this encounter Visit Diagnoses Not on filedocumented in this encounter
--- OUTSIDE RECORDS SUMMARY | 2022-04-10 09:42 | XMS_ITS | Encounter Summary ---
:1970 Author Organization [facility] Address [address] [place] [address] Care Team Providers Name Role Phone Unavailable Primary Care Provider Unavailable Encounter Details Date Type Department Care Team Description 01/28/2022 Ancillary Procedure Department of Cliff Sumner Mali gnant Neoplasm Radiology in M.D., M.S. Of [facility] ([facility]) [place], [place] [address] [facility] [address] [place] [phone] Social History Tobacco Use Types Packs/Day Years [...] have completed or the highest Maulik, MEd, STONE GANG SAWYER, 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 Sex Assigned at Date Recorded Female 01/07/2022 11:11 AM CDT documented as of this encounter Plan of Treatment Upcoming Encounters Date Type Specialty Care Team Description 05/03/2022 Telemedicine Clinical Genomics Sanya Mehta M.D. [address] [place] [phone] 05/06/2022 Clinical Communication Admitting/Central Scheduling 05/09/2022 Office Visit Oncology Farzana Allen M.D. [address] [place] [phone] 05/17/2022 Clinical Communication Admitting/Central Scheduling 05/21/2022 Lab Laboratory Medicine Vini Maki M.D., Ph.D. [address] [place] [phone] 05/21/2022 Appointment Radiology Vini Maki M.D., Ph.D. [address] [place] [address] [phone] 05/21/2022 Office Visit Oncology Vini Maki M.D., Ph.D. [address] [place] [phone] 06/11/2022 Ancillary Procedure Ophthalmology Chas Shin M.D. [address] [place] [phone] 06/11/2022 Ancillary Procedure Ophthalmology Chas Shin M.D. [address] [place] [phone] 06/11/2022 Office Visit Ophthalmology Chas Shin M.D. [address] [place] [phone] documented as of this encounter Procedures Procedure [...] 8 mm in thickness. Interval decrease in lfyp-fy-lgsfm midli ne shift with improved patency of [...] 8 mm in thickness. Interval decrease in evks-hm-fpglq midli ne shift with improved patency of [...]
--- OUTSIDE RECORDS SUMMARY | 2022-04-10 09:42 | XMS_ITS | Encounter Summary ---
:1970 Author Organization [facility] Address [address] [place] [address] Care Team Providers Name Role Phone Unavailable Primary Care Provider Unavailable Reason for Visit Radiation Therapy (Routine) - Closed Specialty Diagnoses / Procedures Referred By Contact Refer red To Contact Diagnoses Malignant Neoplasm Of Brain (HCC) Stephanie Gleason M.D. [facility] Radiation Oncology Procedures Prior Auth Rad Tx ID IMRT COMPLEX [address] [place] [phone] [facility] [place] [address] Referral ID Status Reason Start Date Expiration Date Visits Requ ested Visits Authorized [id number] Closed 01/31/2022 12/31/2022 30 30 Encounter Details Date Type Department Care Team Description 01/31/2022 Hospital Encounter Department of Radiation Jacquelyn Gleason I., Oncology in [place] [address] [facility] [address] [place] [phone] Social History Tobacco Use Types Packs/Day Years [...] have completed or the highest Maulik, MEd, GOGGLES ASSEMBLER, 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 Sex [...] Clinical Genomics Pichurin, Sanya N, M.D. [address] [place] [phone] 05/06/2022 Clinical Communication Admitting/Central Scheduling 05/09/2022 Office Visit Oncology Farzana Allen M.D. [address] [place] [phone] 05/17/2022 Clinical Communication Admitting/Central Scheduling 05/21/2022 Lab Laboratory Medicine Vini Maki M.D., Ph.D. [address] [place] [phone] 05/21/2022 Appointment Radiology Vini Maki M.D., Ph.D. [address] [place] [phone] 05/21/2022 Office Visit Oncology Vini Maki M.D., Ph.D. [address] [place] [phone] 06/11/2022 Ancillary Procedure Ophthalmology Chas Shin M.D. [address] [place] [phone] 06/11/2022 Ancillary Procedure Ophthalmology Chas Shin M.D. [address] [place] [phone] 06/11/2022 Office Visit Ophthalmology Chas Shin M.D. [address] [place] [phone] documented as of this encounter Visit Diagnoses Not on filedocumented in this encounter
--- OUTSIDE RECORDS SUMMARY | 2022-04-10 09:42 | XMS_ITS | Encounter Summary ---
:1970 Author Organization [facility] Address [address] [place] [address] Care Team Providers Name Role Phone Unavailable Primary Care Provider Unavailable Reason for Visit Reason Comments Treatment Plan Encounter Details Date Type Department Care Team Description 01/22/2022 Clinical Communication Department of Latanya Michael Treatment Plan Oncology in R.N., [place]N. [place], [place] [address] [facility] [address] [place] [phone] Social History Tobacco Use Types Packs/Day Years [...] have completed or the highest Maulik, MEd, DISTRIBUTION SUPERVISOR, 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 Sex Assigned at Date Recorded Female 01/07/2022 11:11 AM CDT documented as of this encounter Miscellaneous Notes Telephone Encounter - Norma Diamond P.A.-C., M.S. - 01/22/2022 12:13 PM CDT I was in contact with the radiation oncology team at [facility] who states they were planning on seeing [...] moving quick enough and patient is going to be by the time this gets figured out. [...] Team Description 05/03/2022 Telemedicine Clinical Genomics Sanya Mehat M.D. [address] [place] [phone] 05/06/2022 Clinical Communication Admitting/Central Scheduling 05/09/2022 Office Visit Oncology Farzana Allen M.D. [address] [place] [address] [phone] 05/17/2022 Clinical Communication Admitting/Central Scheduling 05/21/2022 Lab Laboratory Medicine Vini Maki M.D., Ph.D. [address] [place] [phone] 05/21/2022 Appointment Radiology Vini Maki M.D., Ph.D. [address] [place] [phone] 05/21/2022 Office Visit Oncology Vini Maki M.D., Ph.D. [address] [place] [phone] 06/11/2022 Ancillary Procedure Ophthalmology Chas Shin M.D. [address] [place] [address] [phone] 06/11/2022 Ancillary Procedure Ophthalmology Chas Shin M.D. [address] [place] [address] [phone] 06/11/2022 Office Visit Ophthalmology Chas Shin M.D. [address] [place] [phone] documented as of this encounter Visit Diagnoses Not on filedocumented in this encounter
--- OUTSIDE RECORDS SUMMARY | 2022-04-10 09:42 | XMS_ITS | Encounter Summary ---
:1970 Author Organization [facility] Address [address] [place] [address] Care Team Providers Name Role Phone Unavailable Primary Care Provider Unavailable Encounter Details Date Type Department Care Team Description 01/29/2022 Clinical Communication Department of Rebeca Valle , Oncology in P.A.-C., M.S. [place], [place] [address] [place] [address] 200 [place] [phone] Social History Tobacco Use Types Packs/Day Years [...] completed or the highest Maulik, MEd, HIGHWAY ADMINISTRATIVE ENGINEER, 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 Sex Assigned at Date Recorded Female 01/07/2022 11:11 AM CDT documented as of this encounter Miscellaneous Notes Telephone Encounter - Angeles Gates - 01/29/2022 4:24 PM CDT Date/Time Signed: 01/29/2022 15:54 E-Prescribing Status: Receipt confirmed by pharmacy (01/29/2022 ??4:15 PM CDT) Prior authorization: Approved Called [facility] and ask them to expedite the Temozolomide as pt starts treatment . They said they will call us back if the prescription needs to be redirected. documented in this encounter Plan of Treatment Upcoming Encounters Date Type Specialty Care Team Description 05/03/2022 Telemedicine Clinical Genomics Sanya Mehta M.D. 200 [place] [phone] 05/06/2022 Clinical Communication Admitting/Central Scheduling 05/09/2022 Office Visit Oncology Farzana Allen M.D. 200 [place] [phone] 05/17/2022 Clinical Communication Admitting/Central Scheduling 05/21/2022 Lab Laboratory Medicine Vini Maki M.D., Ph.D. [address] [place] [phone] 05/21/2022 Appointment Radiology Vini Maki M.D., Ph.D. [address] [place] [address] [phone] 05/21/2022 Office Visit Oncology Vini Maki M.D., Ph.D. [address] [place] [phone] 06/11/2022 Ancillary Procedure Ophthalmology Chas Shin M.D. [address] [place] [phone] 06/11/2022 Ancillary Procedure Ophthalmology Chas Shin M.D. [address] [place] [address] [phone] 06/11/2022 Office Visit Ophthalmology Chas Shin M.D. [address] [place] [phone] documented as of this encounter Visit Diagnoses Not on filedocumented in this encounter
--- OUTSIDE RECORDS SUMMARY | 2022-04-10 09:42 | XMS_ITS | Encounter Summary ---
:[address] [facility] Address [address] [place] [address] Care Team Providers Name Role Phone Unavailable Primary Care Provider Unavailable Reason for Visit Outpatient (Routine) - Closed Specialty Diagnoses / Procedures Referred By Contact Refer red To Contact Clinical Genomics Diagnoses Malignant Neoplasm Of Brain (HCC) Cliff Sumner M.D., [facility] [address] [place] [phone] Referral ID Status Reason Start Date Expiration Date Visits Requ ested Visits Authorized [id number] Closed 01/01/2022 01/01/2023 1 1 Encounter Details Date Type Department Care Team Description 01/31/2022 Telemedicine Department of Medical Moise Sumner M.D., M.S. [address] [place] [phone] Family History Carrier Genetic Disease ( Primary Dx); Genetics in Sejal Resendiz M.S., [facility] [place] [place] [address] [place] [phone] Malignant Neoplasm Of Brain (HCC) [place], [place] [address] [place] [address] [phone] Social History Tobacco Use Types Packs/Day Years [...] many times do you More than three nisah es a week 01/07/2022 talk on the phone with family, friends, or neighbors? How often do you get together with friends More than three t imes a week 01/07/2022 or relatives? How often do you attend mandaen or More than 4 times per year 01/07/2022 scientology services? Do you belong to any clubs or No 01/07/2022 organizations such as mandaen groups, unions, fraternal or athletic groups, or [...] have completed or the highest Maulik, MEd, SPEECH PATHOLOGIST, 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 Sex Assigned at Date Recorded Female 01/07/2022 11:11 AM CDT documented as of this encounter Consult Notes Sejal Resendiz M.S., [facility] [place] - 01/31/2022 2:15 PM CDT Images from [...] technology by Sejal Resendiz M.S., JAMEL in [facility] to the patient in Patient's Home FAMILY HISTORY A detailed family history was obtained from the patient and a pedigree was constructed. The pedigreewill be saved as a scanned document and available for viewing under the Media tab of [facility]. Our risk assessment is based upon medical [...] dx 70s The patient???s maternal ancestry is Indonesian, Portuguese, Uzbek, German; the patient???s paternal ancestry is German, Equatorial Guinean, Kosovan, Croatian. There is no reported consanguinity or Ashkenazi Sabianist ancestry. IMPRESSION/REPORT/PLAN PATIENT EDUCATION We discussed that [...] + Nervous System/Brain Cancer panel, available from [employer]. Ms. Cedillo will be sent a saliva kit by the laboratory. Approximate cost, insurance coverage,and laws governing genetic discrimination were discussed. Risks, benefits, and limitations of genetic testing were discussed. The laboratory will complete insurance pre-authorization for the test and will contact her if the sdg-qq-cgnbsq costs exceed $100. PERSONAL AND FAMILY SCREENING [...] recommendations, such as those made by the [place] [employer], do remain appropriate. The patient [...] Clinical Genomics Sanya Mehta M.D. [address] [place] [phone] 05/06/2022 Clinical Communication Admitting/Central Scheduling 05/09/2022 Office Visit Oncology Farzana Allen M.D. [address] [place] [phone] 05/17/2022 Clinical Communication Admitting/Central Scheduling 05/21/2022 Lab Laboratory Medicine Vini Maki M.D., Ph.D. [address] [place] [phone] 05/21/2022 Appointment Radiology Vini Maki M.D., Ph.D. [address] [place] [phone] 05/21/2022 Office Visit Oncology Vini Maki M.D., Ph.D. [address] [place] [phone] 06/11/2022 Ancillary Procedure Ophthalmology Chas Shin M.D. [address] [place] [phone] 06/11/2022 Ancillary Procedure Ophthalmology Chas Shin M.D. [address] [place] [phone] 06/11/2022 Office Visit Ophthalmology Chas Shin M.D. [address] [place] [phone] Pending Results Name Type Priority Associated Diagnoses Date/Ti ut [id number] [facility] Routine Malignant Neoplasm Of 02/05/2022 12:00 AM Single Gene Testing - Brain (HCC ) CDT Miscellaneous Test Family History Carrier Genetic Disease documented as of this encounter Visit Diagnoses Diagnosis Family History Carrier Genetic Disease - Primary Malignant Neoplasm Of Brain (HCC) documented in this encounter
--- OUTSIDE RECORDS SUMMARY | 2022-04-10 09:42 | XMS_ITS | Encounter Summary ---
:1970 Author Organization [facility] Address [address] [place] [address] Care Team Providers Name Role Phone Unavailable Primary Care Provider Unavailable Reason for Referral Outpatient (Routine) - Closed Specialty Diagnoses / Procedures Referred By Contact Refer red To Contact Oncology Rebeca Valle P .A.-C., M.S. [facility] [address] [place] [phone] Referral ID Status Reason Start Date Expiration Date Visits Requ ested Visits Authorized [id number] Closed 01/30/2022 01/30/2023 1 1 utpatient (Routine) - Closed Specialty Diagnoses / Procedures Referred By Contact Refer red To Contact Ophthalmology Diagnoses Malignant Neoplasm Of Brain (HCC) Blurred Vision Rebeca Valle [place], M.S. [address] [place] [phone] Referral ID Status Reason Start Date Expiration Date Visits Requ ested Visits Authorized [id number] Closed 01/30/2022 01/30/2023 1 1 utpatient (Routine) - Closed Specialty Diagnoses / Procedures Referred By Contact Refer red To Contact Oncology Rebeca Valle P .A.-C., MSanjuanitaSSanjuanita [address] [phone] Referral ID Status Reason Start Date Expiration Date Visits Requ ested Visits Authorized [id number] Closed 01/30/2022 01/30/2023 1 1 Reason for Visit Outpatient (Routine) - Closed Specialty Diagnoses / Procedures Referred By Contact Refer red To Contact Oncology Karthikeyan Cedeno M.D. [address] [phone] Referral ID Status Reason Start Date Expiration Date Visits Requ ested Visits Authorized [id number] Closed 01/03/2022 01/03/2023 1 1 Encounter Details Date Type Department Care Team Description 01/30/2022 Virtual Visit Department of Rebeca Valle Maligna nt Neoplasm Of Brain (HCC) (Primary Dx); Oncology in [place] Blurred Vision [address] [phone] Social History Tobacco Use Types Packs/Day Years [...] have completed or the highest Maulik, MEd, TOWN CLERK, 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 Sex Assigned at Date Recorded Female 01/07/2022 11:11 AM CDT documented as of this encounter Progress Notes Rebeca Valle P.A.-C., M.S. - 01/30/2022 1:00 PM CDT SUBJECTIVE COLLABORATING ONCOLOGIST: Dr. Maki PRIMARY GRIDLEY ONCOLOGIST: No care steam shovelman to display CHIEF COMPLAINT/REASON FOR VISIT Mia [...] sense. The patient was taken to the [facility] with altered mental status. The patient was admitted to the hospital, but continued to have word-finding difficulties. 04/08/22: MRI of the brain demonstrated mass within the left posterior temporal lobe subcortical white matter measuring up to 3.6 cm with additional foci of masslike cortical hyperintensity within the basal ganglia as well as the left hippocampus. There was trace left to right midline shift of 2.5 mm. The patient was treated with steroids and Keppra and transferred to [facility]. 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 See comment. B. 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 See comment. Final Diagnosis: [...] to Dr. Shelbie Ackerman at the [facility]. Discussed that it was okay for the [...] to Radiation Oncology at [facility] in [place]. 01/10/2022 Surgery and Procedures Left temporoparietal stereotactic craniotomy with tumor resection, speech mapping with Dr. Ivey. PATHOLOGY: A-D. 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 See comment. 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 The biopsy specimen lacked microvascular proliferation and tumor necrosis. By immunohistochemistry, the tumor cells were negative for IDH1-R132H and showed retained ATRX expression. 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 01/10/2022 Imaging MRI of [...] certain distances - blurry vision. 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 [...] see the Neuro ophthalmology team here at [facility]. - consult placed for neuro opthalmology PATIENT [...] conducted via real-time audio/video technology by Ashley Romero, MSierra in [facility] to the patient in their home. 30 minutes including visit, reviewing records, coordinating care. documented in this encounter Plan of Treatment Upcoming Encounters Date Type Specialty Care Team Description 05/03/2022 Telemedicine Clinical Genomics Sanya Mehta M.D. [address] [place] [phone] 05/06/2022 Clinical Communication Admitting/Central Scheduling 05/09/2022 Office Visit Oncology Farzana Allen M.D. [address] [place] [phone] 05/17/2022 Clinical Communication Admitting/Central Scheduling 05/21/2022 Lab Laboratory Medicine Vini Maki M.D., Ph.D. [address] [place] [phone] 05/21/2022 Appointment Radiology Vini Maki M.D., Ph.D. [address] [place] [phone] 05/21/2022 Office Visit Oncology Vini Maki M.D., Ph.D. [address] [place] [phone] 06/11/2022 Ancillary Procedure Ophthalmology Chas Shin M.D. [address] [place] [address] [phone] 06/11/2022 Ancillary Procedure Ophthalmology Chas Shin M.D. [address] [place] [phone] 06/11/2022 Office Visit Ophthalmology Chas Shin M.D. [address] [place] [phone] Scheduled Referrals Name Type Priority Associated Order [...]
--- OUTSIDE RECORDS SUMMARY | 2022-04-10 09:43 | XMS_ITS | Encounter Summary ---
:1970 Author Organization [facility] Address [address] [place] [address] Care Team Providers Name Role Phone Unavailable Primary Care Provider Unavailable Reason for Referral MRI/CAT/PET Scan (Routine) - Closed Specialty Diagnoses / Procedures Referred By Contact Refer red To Contact Radiology Diagnoses Malignant Neoplasm Of Brain (HCC) Charles Ivey M.D., [facility] Procedures MR Stereotactic Frameless Ph.D. [address] [place] [phone] Referral ID Status Reason Start Date Expiration Date Visits Requ ested Visits Authorized [id number] Closed 01/09/2022 01/09/2023 1 1 Reason for Visit Auth/Cert Specialty Diagnoses / Procedures Referred By Contact Refer red To Contact Diagnoses Malignant Neoplasm Of Brain (HCC) Procedures OK CRANIOT SUBDURAL IMPL ELECTRODE OK MAPPING CORTICAL INITIAL HR Awake left temporoparietal stereotactic craniotomy tumor resection, speech mapping, intraop MRI, supine position. Referral ID Status Reason Start Date Expiration Date Visits Requ ested Visits Authorized [id number] 1 1 Encounter Details Date Type Department Care Team Description 01/10/2022 Hospital Encounter Department of Charles Ivey Malign ant Neoplasm Radiology, Rhona Ojeda M.D., Ph.D. Of Brain ([facility]) [place], [place] [address] [place] [phone] [place] [address] [place], [place] (Work) [phone] Social History Tobacco Use Types Packs/Day Years [...] have completed or the highest Maulik, MEd, RESIDENTIAL PEST CONTROL TECHNICIAN, 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 Sex [...] Telemedicine Clinical Genomics Sanya Mehta M.D. [address] [place] [phone] 05/06/2022 Clinical Communication Admitting/Central Scheduling 05/09/2022 Office Visit Oncology Farzana Allen M.D. [address] [place] [phone] 05/17/2022 Clinical Communication Admitting/Central Scheduling 05/21/2022 Lab Laboratory Medicine Vini Maki M.D., Ph.D. [address] [place] [phone] 05/21/2022 Appointment Radiology Vini Maki M.D., Ph.D. [address] [place] [phone] 05/21/2022 Office Visit Oncology Vini Maki M.D., Ph.D. [address] [place] [phone] 06/11/2022 Ancillary Procedure Ophthalmology Chas Shin M.D. [address] [place] [address] [phone] 06/11/2022 Ancillary Procedure Ophthalmology Chas Shin M.D. [address] [place] [phone] 06/11/2022 Office Visit Ophthalmology Chas Shin M.D. [address] [place] [phone] documented as of this encounter Procedures Procedure [...] centrally necrotic intra-axial mass from the left espozlr-uhdwfxm-oxczownco region. There is some fluid and gas [...] of the left lateral ventricle. 1 cm wewz-si-pjxol mi dline shift at the level of [...] centrally necrotic intra-axial mass from the left djfzrya-dnbogap-hjxgkjqpa region. There is some fluid and gas [...] of the left lateral ventricle. 1 cm pyyr-af-xelzh mi dline shift at the level of [...] mL Given 01/10/2022 1:38 PM CDT 8 m L (GADAVIST) 0.01-30 mL, intravenous, Once in imaging, contrast, Starting on Bee 01/10/22 at 1338, For 1 dose, Imaging Protocol Orders, Dose per Radiant Medication Guidelines Intrathecal doses greater than 0.25 mL not recommended. documented in this encounter
--- OUTSIDE RECORDS SUMMARY | 2022-04-10 09:43 | XMS_ITS | Encounter Summary ---
:1970 Author Organization [facility] Address [address] [place] [id number] Care Team Providers Name Role Phone Unavailable Primary Care Provider Unavailable Reason for Referral Outpatient (Routine) - Closed Specialty Diagnoses / Procedures Referred By Contact Refer red To Contact Neurological Surgery Diagnoses Tumor Brain (HCC) Christina Tai [facility] Kobi Henderson, M.S. [address] [place] [phone] Referral ID Status Reason Start Date Expiration Date Visits Requ ested Visits Authorized [id number] Closed 01/11/2022 01/11/2023 1 1 Scheduling Instructions 3 mo post surgical follow up; Brain MRI prior RI/CAT/PET Scan (Routine) - Closed Specialty Diagnoses / Procedures Referred By Contact Refer red To Contact Radiology Diagnoses Tumor Brain (HCC) Christina Tai [facility] Procedures MR Brain Perfusion without and with IV Contrast Kobi, M.S. [address] [place] [phone] Referral ID Status Reason Start Date Expiration Date Visits Requ ested Visits Authorized [id number] Closed 01/11/2022 01/11/2023 1 1 Reason for Visit Reason Comments Post Hospital Follow-up Encounter Details Date Type Department Care Team Description 01/11/2022 Clinical [facility]ST [facility] [place], Post Hospital Communication [address] [facility] Christina Henderson, Follow-up [place], [place] PKaruna, M.S. [phone] 200 [place] [address] Social History Tobacco Use Types Packs/Day Years [...] 01/07/2022 organizations such as protestant groups, unions, fraternal or athletic groups, or [...] have completed or the highest Maulik, MEd, ROLL FORMING MACHINE SET UP OPERATOR, 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 Sex Assigned at Date Recorded Female 01/07/2022 11:11 AM CDT documented as of this encounter Plan of Treatment Upcoming Encounters Date Type Specialty Care Team Description 05/03/2022 Telemedicine Clinical Genomics Sanya Mehta M.D. [address] [place] [phone] 05/06/2022 Clinical Communication Admitting/Central Scheduling 05/09/2022 Office Visit Oncology Farzana Allen M.D. [address] [place] [phone] 05/17/2022 Clinical Communication Admitting/Central Scheduling 05/21/2022 Lab Laboratory Medicine Vini Maki M.D., Ph.D. [address] [place] [phone] 05/21/2022 Appointment Radiology Vini Maki M.D., Ph.D. [address] [place] [phone] 05/21/2022 Office Visit Oncology Vini Maki M.D., Ph.D. [address] [place] [phone] 06/11/2022 Ancillary Procedure Ophthalmology Chas Shin M.D. [address] [place] [phone] 06/11/2022 Ancillary Procedure Ophthalmology Chas Shin M.D. [address] [place] [phone] 06/11/2022 Office Visit Ophthalmology Chas Shin M.D. [address] [place] [phone] Scheduled Referrals Name Type Priority Associated Order Schedule Diagnoses Neurological Surgery Outpatient Referral Routine Tumor Brain ( HCC) Expected: office visit (clinic) 2021 (Approximate), Expires: 04/13/2023 documented as of this encounter Results MR Brain Perfusion without [...] with biopsy performed 12/05/2021 and outside hospital. [place] review of out side pathology indicates IDH [...] with biopsy performed 12/05/2021 and outside hospital. [place] review of out side pathology indicates IDH [...] Diagnoses Diagnosis Tumor Brain (HCC) - Primary Tumor Brain (HCC) documented in this encounter
--- OUTSIDE RECORDS SUMMARY | 2022-04-10 09:43 | XMS_ITS | Encounter Summary ---
:1970 Author Organization [facility] Address [address] [place] [address] Care Team Providers Name Role Phone Unavailable Primary Care Provider Unavailable Reason for Visit Reason Comments Communication Encounter Details Date Type Department Care Team Description 01/22/2022 Clinical Communication Department of Ivey, Charles Ojeda, Communication Neurologic Surgery [place], Ph.D. in [address] [place] [phone] [place], [place] [phone] (Work) [phone] Social History Tobacco Use Types Packs/Day Years [...] completed or the highest Maulik, MEd, SUPERVISOR CARPENTERS, 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 Sex Assigned at Date Recorded Female 01/07/2022 11:11 AM CDT documented as of this encounter Miscellaneous Notes Telephone Encounter - Marsha Larry, R.N. - 01/22/2022 2:49 PM CDT Patient has been rescheduled and to see radiation oncology in [place] on 01/28 and has been notified. Telephone [...] Clinical Genomics Sanya Mehta M.D. [address] [place] [phone] 05/06/2022 Clinical Communication Admitting/Central Scheduling 05/09/2022 Office Visit Oncology Farzana Allen M.D. [address] [place] [phone] 05/17/2022 Clinical Communication Admitting/Central Scheduling 05/21/2022 Lab Laboratory Medicine Vini Maki M.D., Ph.D. [address] [place] [phone] 05/21/2022 Appointment Radiology Vini Maki M.D., Ph.D. [address] [place] [phone] 05/21/2022 Office Visit Oncology Vini Maki M.D., Ph.D. [address] [place] [phone] 06/11/2022 Ancillary Procedure Ophthalmology Chas Shin M.D. [address] [place] [phone] 06/11/2022 Ancillary Procedure Ophthalmology Chas Shin M.D. [address] [place] [phone] 06/11/2022 Office Visit Ophthalmology Chas Shin M.D. [address] [place] [phone] documented as of this encounter Visit Diagnoses Not on filedocumented in this encounter
--- OUTSIDE RECORDS SUMMARY | 2022-04-10 09:43 | XMS_ITS | Encounter Summary ---
:1970 Author Organization [facility] Address [address] [place] [address] Care Team Providers Name Role Phone Unavailable Primary Care Provider Unavailable Reason for Referral Specialty Diagnoses / Procedures Referred By Contact Refer red To Contact Stacy Easley P.A.-C ., M.SSanjuanita [facility] 200 [place] [phone] Referral ID Status Reason Start Date Expiration Date Visits Requ ested Visits Authorized Outpatient (Routine) - Authorized Specialty Diagnoses / Procedures Referred By Contact Refer red To Contact Radiation Oncology Stephanie Gleason [facility] Narendra Ardian [address] [place] [phone] Referral ID Status Reason Start Date Expiration Date Visits V isits Requested Authorized [id number] Authorized 01/22/2022 01/22/2023 10 10 Encounter Details Date Type Department Care Team Description 01/22/2022 Clinical Communication Department of Stephanie Gleason Radiation Oncology in [place] [facility] 200 [facility] [address] [place] [phone] Social History Tobacco Use Types Packs/Day Years [...] have completed or the highest Maulik, MEd, CHLORINE PLANT OPERATOR, 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 Sex Assigned at Date Recorded Female 01/07/2022 11:11 AM CDT documented as of this encounter Miscellaneous Notes Telephone Encounter - Alexandria Austin Aneudy - 01/22/2022 8:42 AM CDT Caller: Mother - Libby Is there a valid authorization to speak with caller? Yes Primary Radiation Oncologist: Dr. Gleason Reason for call: Libby calling stating that patient had surgery in [place] on 01/[address] Ivey. She stated that per Dr. Ivey patient should have radiation three weeks after surgery. She is scheduled to see Dr. Khan in [place] [facility] on 01/31?? Wondering why its in [place] and not in [place]? I suggested calling Dr. Ivey' office to get clarification she wanted me to check with Dr. Sumner and Dr. Gleason and call her back. Phone number: mobile Is it okay to leave a voicemail on answering machine with test results? Yes Pharmacy (if medication related): N/A Alexandria Austin documented in this encounter Plan of Treatment Upcoming Encounters Date Type Specialty Care Team Description 05/03/2022 Telemedicine Clinical Genomics Sanya Mehta M.D. [address] [place] [phone] 05/06/2022 Clinical Communication Admitting/Central Scheduling 05/09/2022 Office Visit Oncology Farzana Allen M.D. [address] [place] [phone] 05/17/2022 Clinical Communication Admitting/Central Scheduling 05/21/2022 Lab Laboratory Medicine Vini Maki M.D., Ph.D. [address] [place] [phone] 05/21/2022 Appointment Radiology Vini Maki M.D., Ph.D. [address] [place] [phone] 05/21/2022 Office Visit Oncology Vini Maki M.D., Ph.D. [address] [place] [phone] 06/11/2022 Ancillary Procedure Ophthalmology Chodnicki, Chas D, M.D. [address] [place] [phone] 06/11/2022 Ancillary Procedure Ophthalmology Chas Shin M.D. 200 [place] [phone] 06/11/2022 Office Visit Ophthalmology Chas Shin M.D. 200 [place] [phone] Scheduled Referrals Name Type Priority Associated Order Schedule Diagnoses Radiation Oncology Outpatient Referral Routine 10 Occurrences nurse visit starting 2021 (clinic) until Radiation Oncology Outpatient Referral Routine Malignant Neopl asm Expected: 01/22/2022 - Nurse education Of Brain (HCC) (eGnesis thurman), visit (clinic) Expires: 12/25 documented as of this encounter Visit Diagnoses Diagnosis Malignant Neoplasm Of Brain (HCC) - Prim uyen documented in this encounter
--- OUTSIDE RECORDS SUMMARY | 2022-04-10 09:43 | XMS_ITS | Encounter Summary ---
:1970 Author Organization [facility] Address [address] [place] [address] Care Team Providers Name Role Phone Unavailable Primary Care Provider Unavailable Reason for Visit Auth/Cert Specialty Diagnoses / Procedures Referred By Contact Refer red To Contact Diagnoses Malignant Neoplasm Of Brain (HCC) Procedures AK CRANIOT SUBDURAL IMPL ELECTRODE AK MAPPING CORTICAL INITIAL HR Awake left temporoparietal stereotactic craniotomy tumor resection, speech mapping, intraop MRI, supine position. Referral ID Status Reason Start Date Expiration Date Visits Requ ested Visits Authorized [id number] 1 1 Encounter Details Date Type Department Care Team Description 01/09/2022 - Hospital Encounter [facility] Ivey, Charles Tumor B rain (HCC) (Primary Dx); 01/17/2022 [facility] Esteban M.D., Ph.D. Malignant Neoplasm Of Brain (HCC); [facility], [address] Change Mental Status; [facility], [place], [place] Abnormal Ga it Non Orthopedic; Ninth Floor [id number] Concern Patient Cognition Function; [address] [place] [address] Deficit Cognitive Communicat ion; [place], [place] (Work) Decline Cognitive [id number] Social History [...] 01/07/2022 organizations such as holiness groups, unions, [employer] or athletic groups, or school groups? How [...] have completed or the highest Maulik, MEd, SLASHER TENDER, 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 Sex [...] AM CDT DISCHARGE SUMMARY BRIEF OVERVIEW Hospital: [facility] Discharge Provider: Charles Ivey M.D. [...] Oncology 01/31/2022 2:15 PM Sejal Resendiz M.S., [facility] Clinical Genomics 02/07/2022 1:20 PM Farzana Allen [...] biopsy and subtotal resection on 12/05/2021 at [facility] for grade 3 astrocytoma, IDH wildtype, MGMT [...] biopsy and subtotal resection on 12/05 at [facility]. After surgery, she improved temporarily, but then [...] CONSULT TO CARE MANAGEMENT IP CONSULT TO SQE STORE STOCK ASSOCIATE IP CONSULT TO PHYSICAL MEDICINE & REHABILITATION [...] visit with Dr. Ivey, or his Physician's Military Communications Specialist, Eileen Tai, in approximately 3 months. These [...] right due to complaints of right hip pain. will bump into door on right side at [...] Discharge information provided on 01/16/2022 Contact information: [facility], Acute Therapy Services [phone] documented in this encounter Medications at Time [...] tablet mouth 2 (two) times a day. levETIRAcetam (KEPPRA) Take 1 tablet (1,000 28 [...] I updated primary service and RN caregiver. RDT Paulina Jiménez R.N. - 01/17/2022 9:22 AM CDT SUBJECTIVE pump and still operator visited with patient regarding her dismissal questions. OBJECTIVE Patient sitting up in bedside chair. Patient alert, pleasant and engaged in conversation. Patient expressing difficulty understanding the dismissal options. ASSESSMENT / PLAN CENTRAL OFFICE MECHANICdirector of special events visited with patient regarding her questions with [...] the information. Patient contacted Libby via phone. director of special events introduced self and role to Libby. Advised [...] rehab and approvalfor insurance has been submitted. director of special events advised unsure where their process is at. [...] therapy time in comparison to inpatient rehab. director of special events advised will reach out to the team for more information and someone will return call to explain more about inpatient rehab. After leaving patient room, director of special events has learned patient's insurance has approved patient's admission to inpatient rehab. director of special events reached out to team, for request that someone speak to patient and patients mom about inpatient rehab. PLAN director of special events will continue to follow during hospitalization, assisting with a safe dismissal plan. Alberto Jiménez R.N. 01/17/22 Erika Alicea M.S., [facility]-WELL SERVICE FLOOR WORKER - 01/17/2022 9:15 AM CDT Speech Language Pathology Communication/Cognitive Treatment- Acute Care Session Type: Treatment Length of session: 20 minutes SUBJECTIVE Ms. Colling was seen for therapy this morning while seated upright in recliner chair. She participated fully. Her mother was on speaker phone for part of our session. General Family/Caregiver Present: No Arousal/Alertness: Appropriate responses to stimuli Behavior: Alert, Cooperative, Distractible, Pleasant mood Pain Patient denies overt pain OBJECTIVE Objective Session Data Verbal Expression Primary Mode of Expression: Verbal Primary Language: Macanese Open Ended Questions: 100% accuracy Conversation: Impaired [...] her mother on speakerphone about role of WELL SERVICE FLOOR WORKER services in addressing cognitive communication deficit in [...] Disorder: Moderate Plan Discharge Location: Inpatient rehab WELL SERVICE FLOOR WORKER Ongoing Services: Ongoing formal Speech Pathology services [facility] Re[facility] Potential: Good Michael De Los Santos M.D., Ph.D. - 01/17/2022 9:11 AM CDT Facility Information: [facility] Physical Medicine and Rehabilitation Pre-Admission Screening Patient Information Patient Name: Mia Richardson [address]: [address] [place] [id number] Sex: Female Date of : 1970 Age: 51 y.o. Room/Bed: [address] [place] [address] Coverage Information: Payor: [employer] BLUE SHIELD / Plan: [place]BS [place] / Product Type: PPO / ____ Rehab Physician's Review and Admission Determination Ms. Cedillo is in need of acute inpatient rehabilitation in order to achieve the functional goals outlined below. She requires close rehabilitation physician monitoring and management due to her complex medical conditions and co- morbidities. She requires 24-hour rehabilitation nursing to manage bowel and bladder function, medication management, patient / family goals, skin care, surgical incision, nutrition and fluid intake, pulmonary hygiene, pain control, safety. In addition, rehabilitation nursing will reiterate and reinforce therapy skills and equipment use, including ADLs, as well as provide education to the patient and family. Ms. Cedillo is willing to participate and is able to tolerate theproposed plan of care. 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 Thepatient underwent a stereotactic biopsy of a left temporal region of hyperintensity in November at [facility]. The pathology apparently revealed IDH wild type, [...] of left temporoparietal craniotomy for high grade glialtumor 01/09/2022. She is now medically ready for acute inpatient rehabilitation. She requires close automotive glazier oversight due to her complex medical condition and co-morbidities. She requires 24-hour nursing rehabilitation to manage bowel and bladder function, skin care, surgical incision/wound, nutrition and fluid intake, pulmonary hygiene, pain control, safety, and medication management. Reiterate therapy skills and equipment including ADLs. Provide education [...] Adaptive Equipment: None Prior Function Level of Villas: Independent with ADLs and functional transfers Receives [...] with family Patient/Caregiver Goals: Return to home. Vill[place] with ADL and IADL tasks. Required Treatments and Services: Rehabilitation Physician, Rehabilitation Nursing, Physical Therapy, Occupational Therapy, Speech Therapy, Recreational Therapy, Privacy Officer, Greige Mender, Rehabilitation Psychology, Bowel and Bladder Management, Bias Machine Operator Helper, and Jr. Systems Administrator Services Anticipated Services Upon Discharge Anticipated Interventions Anticipated Interventions: Physical Therapy, Occupational Therapy, Speech Therapy PT Projected Minutes/Day: 90 PT Projected Days/Week: 5 OT Projected Minutes/Day: 90 OT Projected Days/Week: 5 WELL SERVICE FLOOR WORKER Projected Minutes/Day: 30 WELL SERVICE FLOOR WORKER Projected Days/Week: 5 Rehabilitation nursing to manage: bowel and bladder function, medication management, patient / family goals, skin care, surgical incision, nutrition and fluid intake, pulmonary hygiene, pain control, safety Discharge Information Discharge information Projected Admission Date: 01/17/22 Barriers: Comorbidities Discharge Support: Family Estimated Length of Stay: 10 days Anticipated Discharge Destination: 01 - Home (private home/apartment, assisted living, halfway, transitional living) Anticipated Services Upon Discharge Anticipated Services Upon Discharge: Outpatient Therapy Learning Assessment Questions Primary Learner Name: Mia Relationship: Patient Does the primary learner have any barriers to learning?: Reading What is the preferred language of the primary learner for medical teaching?: Macanese Is an concrete wall grinder operator required?: No How does the primary learner prefer to learn new concepts?: Demonstration / Seeing, Doing, Listening Relationship: Patient Is an concrete wall grinder operator required?: No Assessment answers provided by?: Patient Information Brochures Given: Data Collection Information Summary for Patients in Inpatient Rehabilitation Facilities, Brain Rehabilitation [id number], Inpatient Rehabilitation Programs [id number] Michael De Los Santos M.D., Ph.D. RDT Madiha Castro M.D. - 01/17/2022 6:44 AM CDT 9-746 Mia Cedillo [birth year] 51F Glioma Resection [id number] - S/p left temporoparietal crani on 01/10 for resection of Grade 3 astrocytoma, IDH wildtype, MGMT unmethylated. Preop symptoms: lethargic, not oriented, significant pain, nausea, word-finding difficulties, likely seizure. Underwent biopsy and subtotal resection on 12/05 at [facility]. After surgery, she improved temporarily, but then [...] please page the Dr. Ivey service at [phone] Cici Hope, BLAIR - 01/16/2022 3:49 PM CDT Clinical Nutrition: [...] 97.7 kg (01/09/2022) Current Weight: 88.9 kg [place] Body Weight (Calculated) : 60.3 kg BMI [...] 97.7 kg Estimated Needs: Total Calorie Needs: 6933-2191 kcals calories/day Method to Estimate Energy Needs: Sebastian-Malden (75% to Basal) Weight Used for Equation [...] about patient's nutritional care please contact pager [phone] on weekdays or [phone] on weekends/holidays. Pradeep Marquez MDIV - 01/16/2022 3:35 PM CDT Encounter: Spiritual Care Contact Situation: Jr. Systems Administrator visit following up from 01/14/22 piecer up visit. Mia declined visit and requested stop back a different day. I affirmed preference. Plan: Will remain available for spiritual care as needed or requested. Chaplains can be contacted bypaging [phone] ([place]) or [phone] ([facility]). Sona Ma O.T., O.T.D. - 01/16/2022 3:04 PM CDT Occupational Therapy Acute Hospital Inpatient [...] Date: 01/09/22 Patient/Caregiver Goals: Return to home. Villas with ADL and IADL tasks. Patient Comments: [...] for hospitalization. For hosptial name, she reported [facility], but then put [place] in [facility]. With cueing, she was able to correct to [place] and accurately put [place] for state, improved from completion during previous date. Dougherty Test Dougherty Test is a symbol cancellation test that [...] dressing, Assistance with meal preparation, Assistance with dental financial coordinator, Assistance with transportation, Assistance with hous ekeeping, [...] Therapeutic exercise, Therapeutic modalities as needed, Orthosis [id number], Manual therapy Time Spent with Patient Therapeutic [...] right due to complaints of right hip pain. will bump into door on right side at [...] with cga 200 feet overall .She has been steadily improving. Ongoing cognitive, processing issues though. Pain [...] 9-746 Mia Cedillo [birth year] 51F Glioma Resection [id number] - S/p left temporoparietal crani on 01/10 for resection of Grade 3 astrocytoma, IDH wildtype, MGMT unmethylated. Preop symptoms: lethargic, not oriented, significant pain, nausea, word-finding difficulties, likely seizure. Underwent biopsy and subtotal resection on 12/05 at [facility]. After surgery, she improved temporarily, but then [...] today overall with patient much more awake and alert. Progressed walking to 200 feet with minimal [...] something ludivina. For hosptial name, she reported [place] and then with cues and times switched to [facility]. She put [facility] for [facility] and [facility] for [facility]. She appeared to be perseverating on previous [...] dressing, Assistance with meal preparation, Assistance with dental financial coordinator, Assistance with transportation, Assistance with hous ekeeping, [...] would like to pursue inpatient rehab at [place]. Reviewed insurance disclosure information Acute inpatient rehabilitation admission planned for 01/17/2022 pending insurance approval. Erika Alicea M.S., [facility]-WELL SERVICE FLOOR WORKER - 01/15/2022 10:20 AM CDT Speech Language [...] Primary Mode of Expression: Verbal Primary Language: Macanese Open Ended Questions: 61-80% accuracy Conversation: Impaired [...] Disorder: Moderate Plan Discharge Location: Inpatient rehab WELL SERVICE FLOOR WORKER Ongoing Services: Ongoing formal Speech Pathology services [facility] Rehab Potential: Good Madiha Castro M.D. - 01/15/2022 7:01 AM CDT 9-746 NguyenMia [birth year] 51F Glioma Resection [id number] - S/p left temporoparietal crani on 01/10 for resection of Grade 3 astrocytoma, IDH wildtype, MGMT unmethylated. Preop symptoms: lethargic, not oriented, significant pain, nausea, word-finding difficulties, likely seizure. Underwent biopsy and subtotal resection on 12/05 at [facility]. After surgery, she improved temporarily, but then [...] will evaluate her today. She worked with PT/OT/WELL SERVICE FLOOR WORKER yesterday. - Pathology came back as: GBM, [...] please page the Dr. Ivey service at [phone] [place] Fortune PSanjuanitaT. - 01/14/2022 2:55 PM [...] - 01/14/2022 11:50 AM CDT Occupational Therapy [facility] Inpatient Progress Note SUBJECTIVE Patient's Name: [...] shower commode chair) UE Dressing Comments: don [facility] gown following shower. LE Dressing LE Dressing [...] dressing, Assistance with meal preparation, Assistance with dental financial coordinator, Assistance with transportation, Assistance with hous ekeeping, [...] Castro M.D. - 01/14/2022 7:21 AM CDT 9-197 Mia Cedillo [birth year] 51F Glioma Resection [id number] - POD#4 s/p left temporoparietal crani for resection of Grade 3 astrocytoma, IDH wildtype, MGMT unmethylated. Preop symptoms: lethargic, not oriented, significant pain, nausea, word-finding difficulties, likely seizure. Underwent biopsy and subtotal resection on 12/05 at [facility]. After surgery, she improved temporarily, but then [...] Incision clean/dry/intact. - Na: 134-136 - Plan: PT/OT/WELL SERVICE FLOOR WORKER, decadron taper, Keppra 1 g BID, diet/mobilization as tolerated, pain management as needed (Toradol PRN is available). For questions or concerns, please page the Dr. Ivey service at [phone] Marie Caballero O.T. - 01/13/2022 12:42 PM CDT Occupational Therapy [facility] Inpatient Progress Note SUBJECTIVE Patient's Name: [...] and the need for further assessment. M-LISET Cape Verdean Version A Score: 10/30 Domain scores: Attention: [...] numbers despite repeated cues to do so, norcould she put hands set to the correct [...] dressing, Assistance with meal preparation, Assistance with dental financial coordinator, Assistance with transportation, Assistance with hous ekeeping, [...] Acute Hospital Inpatient Treatment SUBJECTIVE Patient's Name: Miabryan Richardson Reason for Referral: PT eval and [...] Therapeutic functional activity, Neuromuscular re-education, Gait training QUALITY ASSURANCE MANAGER Visit Trackin Time Spent with Patient Therapeutic Interventions Neuromuscular Re-Education (min): 17 min Time Tracking Total Timed Units (min): 17 min Total Treatment Time (min): 17 min Kylie Roca P.T.ASanjuanita Madiha Castro M.D. - 01/13/2022 7:18 AM CDT -321 Mia Cedillo [birth year] 51F Glioma Resection [id number] - POD#3 s/p left temporoparietal crani for resection of Grade 3 astrocytoma, IDH wildtype, MGMT unmethylated. Preop symptoms: lethargic, not oriented, significant pain, nausea, word-finding difficulties, likely seizure. Underwent biopsy and subtotal resection on 12/05 at [facility]. After surgery, she improved temporarily, but then [...] with assistance. - Exam: oriented to self, Warren, and year, CN 2-12 grossly intact, follows commands in all extremities with intact sensation, no pronator drift. Incision clean/dry/intact. - Na: last night was 137 (up from 130 in the afternoon), morning sodium still pending. - Plan: continue trending sodium, encourage oral intake, PT/OT/WELL SERVICE FLOOR WORKER, decadron taper, Keppra 1 g BID. For questions or concerns, please page the Dr. Ivey service at [phone] Madiha Castro M.D. - 01/12/2022 7:06 AM CDT -283 Mia Cedillo [birth year] 51F Glioma Resection [id number] - POD#2 s/p left temporoparietal crani for resection of Grade 3 astrocytoma, IDH wildtype, MGMT unmethylated. Preop symptoms: lethargic, not oriented, significant pain, nausea, word-finding difficulties, likely seizure. Underwent biopsy and subtotal resection on 12/05 at [facility]. After surgery, she improved temporarily, but then [...] restrict fluids if necessary, advance diet, UCO, PT/OT/WELL SERVICE FLOOR WORKER, decadron taper, Keppra 1 g BID. Active Issues # Brain compression # Cerebral edema # Class 1 Obesity (BMI 30 to <35) ??? Malignant Neoplasm Of Brain (HCC) ??? Tumor Brain (HCC) For questions or concerns, please page the Dr. Ivey service at [phone] Erika Alicea M.S., [facility]UD[facility]-WELL SERVICE FLOOR WORKER - 01/11/2022 2:25 PM CDT Attempted to see patient both and morning and afternoon for WELL SERVICE FLOOR WORKER evaluation but patient was unable toawaken and [...] biopsy and subtotal resection on 12/05 at [facility]. After surgery, she improved temporarily, but then [...] please page the Dr. Ivey service at [phone] RDT Amber Bailey, Pharm.D., R.Ph. - 01/10/2022 10:23 AM CDT Pharmacist Progress Note 51 y.o. female admitted for left temporoparietal sterotactic craniotomy OBJECTIVE Home medications: ??? Held: None ??? Changed: Dexmethasone Prophylaxis: None ASSESSMENT / PLAN Pharmacotherapy Recommendations: 1. Heparin for DVT prophylaxis after OR 2. Steroid plan Amber Bailey PharmD, [facility] [id number] Madiha Castro M.D. - 01/10/2022 7:05 AM CDT 8-668 Mia Cedillo [birth year] 51F Glioma Resection [id number] - To OR today for left Grade 3 astrocytoma, IDH wildtype, MGMT unmethylated. Preop symptoms: lethargic, not oriented, significant pain, nausea, word-finding difficulties, likely seizure. Underwent biopsy and subtotal resection on 12/05 at [facility]. After surgery, she improved temporarily, but then [...] her poor exam, she was transferred to [facility] and given hypertonic saline. Most recent sodium: [...] please page the Dr. Ivey service at [phone] Rashida North Pharm.D., R.Ph. - 01/09/2022 5:24 [...] no significant changes to the H&P. Madiha Gloria, M.D. Source Note - Karthikeyan Cedeno M.D. - 01/03/2022 8:20 AM CDT SUBJECTIVE PRIMARY CARE PHYSICIAN: No primary care provider on file. REASON FOR CONSULT Mia Richardson is a 51 y.o. 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 HISTORY OF PRESENT ILLNESS - PMH is largely unremarkable except for brief course of treatment with HCTZ for HTN in the past. - 11/29/2021 presented to [facility] with intermittent word-finding difficulty. She [...] by Dr. Dunlap. 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 She could state she was in [place], in her home. She could name ring [...] y.o. 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 We will need [...] be implemented if thisis pursued. I did financial aid counselor against use of antioxidants during radiation [...] Ms. Cedillo is a very pleasant 51-year-old, xlqga-tszo-uaenqjhd woman with a medical history significant only for hypertension and obesity (BMI 31.1) who was enjoying her normal state of health until about a month ago (November 29, 2021) when she had the onset of intermittent difficulty finding her words.When she presented to the [place] [facility], she was noted to have bruising on her forehead, and a seizure was suspected. She was begun on Keppra, and MRI the following day (images which I viewed in QREADS) revealed a multifocal T1 hypointensive and T2 hyperintensive mass involving the left cerebellum, temporal lobe, parietal lobe, thalamus, and hippocampus. She proceeded to undergo a bi opsy at [facility] on December 05 with pathology consistent with a WHO grade 3 astrocytoma, wild type, and MGMT unmethylated. Following her biopsy she has continued to have difficulty with word finding and ultimately underwent a left temporoparietal stereotactic craniotomy for resection of the tumor which on postoperative MRI imaging appears to be complete. Ms. Cedillo was able to begin participating in an jfu-ktb-sdgnr therapy program. She has done well but [...] amounts of right-sided visual impairment which has improvedsignificantly over the last few days. Cardiovascular/Respiratory: No [...] but I believe it is outside of [place] and that she would have to ascend [...] exception of sequelae of her recent craniotomy. Faciesis symmetric. Extremities: Upper and lower extremities are [...] apraxia or a misunderstanding (for lift your righthand, she lifted her right leg). She was able to repeat a short phrase, name an object, but had difficulty with its components. Clearly, there were episodes of circumlocution, when she was able to answer my question adequately. Given this basis, I proceeded to attempt a formal [facility] mental status examination and obtained the following responses: Orientation--she is able to tell me the date, the month, her age, date of , and her address. Information--she was able to name [employer] as the current president but was unable to name the first one (even with choices) and gave her age as 32 rather than 51. Given effects of aphasia, I held off on further attempts. Speech: Grossly intact, fully understandable. Muscle Bulk and Tone: Upper and lower extremities 0/0. Coordination: Fcebfc-jt-nxep was -1/-1. Satellite maneuver showed the left hand was minimally fasterin revolving around the right. Cranial Nerves II through XII: Extraocular movements were smooth and intact. Visual field was impaired on the right, but this was difficult to assess fully given that when I repeatedly asked her if shecould see my fingers, she referred to colors [...] R.N. Referral Reason: Discharge Planning Primary Language: Macanese Snow Removal Supervisor Services Used: No Person(s) present during interview: [...] Communication: Can write, Talks, Understands speaking, Understands Macanese, Reads Shopping: Independent Transportation: Independent to drive [...] Self Care ASSESSMENT / PLAN Assessment: The director of special events met with Mia Richardson to discuss her current hospitalization and home going needs. The patient was unaccompanied. The patient was a reliable historian. The role of director of special events was reviewed. The patient reviewed her prior level of care and support system. The patient receivessupport from her mother and extended family. The patient described her living environment as a apartment without elevator access with level entry. Housekeeping, grocery shopping, meal prep, and other household responsibilities have previously been completed by patient. director of special events discussed the patient's potential needs at dismissal based ontheir home setting, previous needs and responsibilities, homebound status, and relevant assessments with the patient. The patient is yet to be determined be safe and supported to return home when medically ready, pending medical course. Support will be provided by Libby. The patient demonstrated understanding when discussing her home going plans and anticipated needs. director of special events met with patient in hospital room. Patient in agreement to meet at this time. Patient sitting up in bedside chair. Patient alert, pleasant, eyes closed and engaged in conversation related to baseline activity/home environment and support. director of special events and patient spoke of anticipated discharge when medically stable. Discussing vision impairments and anticipated support needed to ensure safety at discharge. Discussed early in recovery with unknown plan at this time. director of special events/patient discussed care management will follow along and [...] medical course and recommendations from PT/OT. Advised director of special events will follow along during hospitalization and assist as needed. director of special events reinforced if concerns or questions arise related to dismissal planning, to notify bedside nurse of request to speak with director of special events for assistance. Patient verbalized understanding and agreement, denying any concerns or questions at this time. At this time, the care team has not identified any skilled post-hospital discharge care needs that require the assistance of the Care Management Team. Dismissal plan to be determined, pending medical course. After reviewing the patient's chart and meeting with the patient, the director of special events deemed the LACE+/readmission questions were not necessary. [...] be provided by family--to be determined. 3. director of special events recommended a shower seat and grab bars. 4. director of special events provided information regarding the dismissal process. 5. director of special events placed or requested the following hospital-based consult orders and/or referrals:None. 6. director of special events will continue to assess for homegoing needs with the interdisciplinary team. 7. director of special events encouraged the patient to reach out with any questions/concerns. Signed by: Alberto Jiménez R.N. 01/14/2022 Emma Arora M.S., CCC-WELL SERVICE FLOOR WORKER - 01/14/2022 9:58 AM CDT Speech Language Pathology Communication/Cognitive Evaluation- Acute Care Session Type: Evaluation Length of session: 24 minutes SUBJECTIVE Referred By: [facility] Neurologic Surgery - [place] History: Ms. Cedillo is a right handed 51 y.o. female who was admitted to [facility] on 01/09/2022 left temporoparietal craniotomy [...] She reports that she has a master's in in psychology and has not worked since her [...] Speech Voice: Within Normal Limits (WNL) Resonance (COMPUTER SYSTEMS SOFTWARE ENGINEER Function): Within Normal Limits (WNL) Articulation: Within Normal Limits (WNL) Intelligibility: Intelligible Auditory Comprehension Yes/No Questions: Within Normal Limits (WNL) Commands: Impaired One Step Basic Commands: 3/3 Two Step Basic Commands: 2/3 Multistep Basic Commands: 1/3 Conversation Comprehension: Moderate Reading Comprehension Reading Status: Impaired Interfering Components: Attention Effective Techniques: Prescription glasses/contact lenses Verbal Expression Primary Mode of Expression: Verbal Primary Language: Macanese Generative Naming/Word Fluency: 1-20% accuracy Open Ended Questions: 21-40% accuracy Conversation: Impaired Impaired Conversation: Moderate Written Expression Dominant Hand: Right Written Expression: Impaired Legibility: Mild Cognition Overall Cognitive Status: Impaired Attention: Impaired Sustained: Moderate Problem Solving: Impaired Pragmatics Affect: Mild Eye Contact: Severe Humor: Mild Assessment Ms. Cedillo is presenting with moderate aphasia impacting comprehension and expression. Reading was not assessed given sensitivity to opening her eyes and to light. Writing was legible, but revealing right inattention, and she was able to generate [...] come back later Discharge Location: Inpatient rehab WELL SERVICE FLOOR WORKER Ongoing Services: Ongoing formal Speech Pathology services Duration of Treatment: inpatinet stay Rehab Potential: Good RDT Suman Zavaleta - 01/14/2022 9:00 AM CDTAssociated Order(s): IP CONSULT TO SQE STORE STOCK ASSOCIATE Encounter: Follow up, spiritual care consult order Situation: Mia Richardson is a 51 y.o. female receiving care following a recent brain tumor Surgery, and awaiting further decisions about care by the medical team, as she deals with continuing pain inher head. This patient closes her eyes much of the time and remains in the semi-dark due to visual distress, and sometimes needs time to find the words she is seeking to convey her message. Grief reactions: This patient has been distressed and sometimes tearful about her illness, wonderingwhy this is happening to her and why it is affecting her at at a relatively young age. This patient sometimes cries about this overnight and occasionally with medical team members. Ms. 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 Family: This patient expresses care for her mother and two adult children, a son and a daughter. Shana Tradition: This patient has no specific hsana commitment. Prayer offered and accepted as a resource. Plan: Will remain available for spiritual care as needed or requested. Chaplains can be contacted bypaging [phone] ([facility]) or [phone] ([facility]). Marie Caballero O.T. - 01/12/2022 1:57 PM CDT Occupational Therapy [facility] Inpatient Evaluation/Treatment SUBJECTIVE Referring/Attending Provider: Charles Ivey M.D. Patient's Name: Mia Richardson Reason for Referral: OT eval and treat- brain Medical Diagnosis: 1. Tumor Brain (HCC) 2. Malignant Neoplasm Of Brain (HCC) 3. Change Mental Status Payor: [employer] [facility] / Plan: [place] / Product Type: [...] Ivey M.D., Ph.D.; Location: [facility] OR ??? 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 Home Living Type of Home: House Home Living Comments: Patient responding to all questions, but tends to perseverate and is not a realiable historian as evidenced by inconsistencies in responses and non-sensical statements. Per chart,her mother from [place] has been living with her recently and [...] dressing, Assistance with meal preparation, Assistance with dental financial coordinator, Assistance with transportation, Assistance with hous ekeeping, [...] Marie Caballero O.T. Chantal Maria P.T., AdrianP.[place], [facility] - 01/12/2022 1:03 PM CDT Physical Therapy [facility] Inpatient Evaluation/Treatment SUBJECTIVE Referring/Attending Provider: Charles Ivey M.D. Patient's Name: Mia Richardson Reason for Referral: PT eval and treat- brain Medical Diagnosis: 1. Tumor Brain (HCC) 2. Malignant Neoplasm Of Brain (HCC) 3. Change Mental Status Payor: [employer]ters / Plan: [place] / Product Type: PPO / PERTINENT MEDICAL / SURGICAL HISTORY: Patient Active Problem List Diagnosis ??? Malignant Neoplasm Of Brain (HCC) ??? Tumor Brain (HCC) Past Surgical History: Procedure Laterality Date ??? CRANIOTOMY - STEREOTACTIC Left 01/10/2022 Procedure: Asleep left temporoparietal stereotactic craniotomy tumor resection, speech mapping, supine position, intraoperative MRI, BK ultrasound.; Surgeon: Charles Ivey M.D., Ph.D.; Location: [facility] OR ??? CRANIOTOMY FOR TUMOR Left [...] Difficulty with commands due to fatigue, was able to move all 4 extremities anti gravity once sitting upright. She stood up somewhat impulsively with help and made her way to bedside chair that PT had set up next to bed. She was somewhat labile once in chair, tearful about missing her boyfriend. Will [...] biopsy and subtotal resection on 12/05 at [facility] for grade 3 astrocytoma, IDH wildtype, MGMT [...] page the neuro critical care service pager [phone] for any questions or concerns regarding the [...] [place] [phone] if there are anyquestions or concerns. TOTAL [...] urgently for craniotomy. 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 12/07/21 Provider,Historical 25/iron fum/folic/dha (-1 ORAL) Take 1 tablet [...] Mucous membranes moist. No oropharyngeal lesions. Mallampati not visualized as patient would gag and was nauseous [...] do to headache, nausea and vomiting DIAGNOSTICS [facility] Labs: Age 50-60 - ECG only: Sinus bradycardia ASSESSMENT / PLAN Ms. Mia Richardson is a 51 y.o. female with a past medical history as below who was admitted to theneurologic surgery service for left temporoparietal stereotactic craniotomy astrocytoma resection. 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 -- Hematologic risk assessment Bleeding risk: [...] and post surgery antiemetics (compazine and zofran) ........................................................................ Case was staffed with Dr. Ji. Preoperative medical evaluation has been completed so we will sign off our consult at this time. Please page the medicine consult service pager at [phone] if there are any questions or concerns. Marysol Martinez M.D. Internal Medicine Resident, PGY-3 [facility] Medicine Consults, service pager [phone] Charles Ivey M.D., Ph.D. - 01/09/2022 4:50 [...] temporal region of hyperintensity in November at [facility]. The pathology apparently revealed IDH wild type, grade 3 astrocytoma.Multiple additional areas of hyperintensity were also seen [...] language areas in the left temporal lobe being within an area of impaired cerebrovascular reserve based [...] Dr. Avilez of neuropsychology to be available for a possible awake craniotomy. I think that in [...] of the contrast-enhancing lesion via an asleep cr aniotomy with modest risk. The lesion does come [...] Ivey M.D., Ph.D. CT CT Job ID: [id number] documented in this encounter Nursing Notes Shilpa Burnette R.N. - 01/17/2022 11:50 AM CDT Shift Goals: Transfer to [facility] rehab today Identify possible barriers to meeting goals/advancing plan of care: confusion, impulsivity End of Shift Summary: Patient transferred to [facility]. Report given to JAMES Kirby. Ms. Cedillo has been tolerating a general diet, voiding, ambulating with SBA and reports good pain control. She continues to be impulsive and does need some direction with daily tasks. She answers questions but perseveratesin her speech. She is transferred by [facility] in a wheelchair with all of her [...] Right Radial (Active) Placement Date/Time: 01/10/22 (c) 1832 Procedural Pause Completed: Yes Catheter Time Out [...] PRE-OPERATIVE DIAGNOSIS Glioblastoma. POST-OPERATIVE DIAGNOSIS Glioblastoma. A therapist's assistant actively participated and was necessary for one or more of the following: opening,exposure and visualization during the case, maintaining hemostasis, wound closure resulting in its safe and expeditious completion. SURGEON: Charles Ivey M.D., Ph.D. RESIDENTIAL GAS HEAT TECHNICIAN: Madiha Castro M.D. FELLOW: Johnathan Jones M.D., Ph.D. OPERATIVE NOTE NARRATIVE The patient was brought to operative room 216 at [facility] where appropriate venous and arterial access [...] and the images were transferred to the [employer] navigation system and merged with the original [...] Ivey M.D., Ph.D. CT CT Job ID: [id number] Brief Op Note - Madiha Castro M.D. [...] biopsy and subtotal resection on 12/05/2021 at [facility] for grade 3 astrocytoma, IDH wildtype, MGMT [...] biopsy and subtotal resection on 12/05 at [facility]. After surgery, she improved temporarily, but then [...] Telemedicine [employer] Sanya Mehta M.D. [address] [place] [phone] 05/06/2022 Clinical Communication Admitting/Central Scheduling 05/09/2022 Office Visit Oncology Farzana Allen M.D. [address] [place] [phone] 05/17/2022 Clinical Communication Admitting/Central Scheduling 05/21/2022 Lab Laboratory Medicine Vini Maki M.D., Ph.D. [address] [place] [phone] 05/21/2022 Appointment Radiology Vini Maki M.D., Ph.D. [address] [place] [phone] 05/21/2022 Office Visit Oncology Vini Maki M.D., Ph.D. [address] [place] [phone] 06/11/2022 Ancillary Procedure Ophthalmology Chas Shin M.D. [address] [place] [phone] 06/11/2022 Ancillary Procedure Ophthalmology Chas Shin M.D. [address] [place] [phone] 06/11/2022 Office Visit Ophthalmology Chas Shin M.D. [address] [place] [phone] documented as of this encounter Procedures Procedure Name Priority Date/Time Associated Comments Diagnosis SODIUM, S/P Timed 01/13/2022 6:16 Results for this PM CDT procedure are i n the results section. CT HEAD WITHOUT IV RAD - Emergent 01/13/2022 3:30 Resu lts for this CONTRAST (Fastest; for the PM CDT procedure are in most critically the results ill patients) section. CT HEAD NECK RAD - Emergent 01/13/2022 3:30 Results fo r this ANGIOGRAM WITH IV (Fastest; for the [...] METABOLIC Routine 01/12/2022 4:35 Results f or this PANEL, S/P AM CDT procedure are i n the results section. BASIC METABOLIC Routine 01/11/2022 8:54 Results f or this PANEL, S/P PM CDT procedure are i n the results section. EEG ROUTINE - AWAKE STAT 01/11/2022 1:29 Change Mental Resu lts for this AND SLEEP PM CDT Status procedure are i n the results section. BASIC METABOLIC STAT 01/11/2022 7:12 Results f or this PANEL, S/P AM CDT procedure are i n the results section. SODIUM, S/P STAT 01/10/2022 8:14 Results for this PM CDT procedure are i n the results section. PATIENT STATUS STAT 01/10/2022 2:06 Results fo r this PM CDT procedure [...] section. GLUCOSE, WHOLE STAT 01/10/2022 2:06 Results fo r this BLOOD PM CDT procedure are i n the results section. CALCIUM, IONIZED, STAT 01/10/2022 2:06 Results for this S/B PM CDT procedure are [...] section. GLUCOSE, WHOLE STAT 01/10/2022 9:02 Results fo r this BLOOD AM CDT procedure are i n the results section. CALCIUM, IONIZED, STAT 01/10/2022 9:02 Results for this S/B AM CDT procedure are i n the results section. TYPE AND SCREEN STAT 01/10/2022 8:55 Results f or this AM CDT procedure [...] RANDOM, U Routine 01/09/2022 9:35 Results for this PM CDT procedure are i n the results section. OSMOLALITY, U Routine 01/09/2022 9:35 Results for this PM CDT procedure are i n the results section. BASIC METABOLIC STAT 01/09/2022 8:01 Results f or this PANEL, S/P PM CDT procedure are i n the results section. SARS CORONAVIRUS 2, Routine 01/09/2022 7:24 Resul ts for this RNA, RAPID POC, V PM CDT procedure are in the results section. CBC WITHOUT Routine 01/09/2022 6:05 Results for this DIFFERENTIAL, B PM CDT procedure ar e in the results section. HEMOGLOBIN A1C, B Routine 01/09/2022 5:58 Results for this PM CDT procedure are [...] Organization Address City/State/ZIP Code Phon e Number [facility] - [address] [place], [place] [address] [facility] [place] [address] [facility] [address] Head Neck Angiogram [...] stenosis , aneurysm, or focal injury. The [place] and its proximal branch vessels [...] stenosis , aneurysm, or focal injury. [place] and its proximal branch vessels [...] nfarct. Madiha MAKI CT PROCEDURES CT Head without IV Contrast [...] stenosis , aneurysm, or focal injury. [place] and its proximal branch vessels [...] stenosis , aneurysm, or focal injury. [place] and its proximal branch vessels [...] CT PROCEDURES Sodium (01/13/2022 12:24 PM CDT) P athologist Signature Sodium, S 135 135 - 145 01/13/2022 1:00 DTL mmol/L PM CDT Specimen Anatomical Collection Method Collection Time Receive d Time (Source) Location / / Volume Laterality Blood (Blood, 01/13/2022 12:24 01/13/2022 Venous) PM CDT 12:49 PM CDT Madiha Castro M.D. LAB BLOOD ADD-ON Performing Organization Address City/State/ZIP Code Phon e Number [facility] - [address] [place], [place] [address] [place] [id number] [facility] 200 [facility] (ABNORMAL) Sodium (01/13/2022 6:44 AM CDT) athologist Signature Sodium, S 134 (L) 135 - 145 01/13/2022 DTL mmol/L 8:00 AM CDT Specimen Anatomical Collection Method Collection Time Receive d Time (Source) Location / / Volume Laterality Blood (Blood, 01/13/2022 6:44 AM 01/14/20 7:38 Venous) CDT AM CDT Madiha Castro M.D. LAB BLOOD ADD-ON Performing Organization Address City/State/ZIP Code Phon e Number [facility] 200 [place], [place] [address] [place] [address] Sodium (01/13/2022 12:19 AM CDT) athologist Signature Sodium, P 137 135 - 145 01/13/2022 1:07 DTL mmol/L AM CDT Specimen Anatomical Collection Method Collection Time Receive d Time (Source) Location / / Volume Laterality Blood (Blood, 01/13/2022 12:19 01/13/2022 Venous) AM CDT 12:35 AM CDT Madiha Castro M.D. LAB BLOOD ADD-ON Performing Organization Address City/State/ZIP Code Phon e Number [facility] [address] [place], [place] [address] [place] [id number] (ABNORMAL) Sodium (01/12/2022 4:17 PM CDT) athologist Signature Sodium, P 130 (L) 135 - 145 01/12/2022 STMA mmol/L 4:37 PM CDT Specimen Anatomical Collection Method Collection Time Receive d Time (Source) Location / / Volume Laterality Blood (Blood, 01/12/2022 4:17 PM 01/13/20 4:25 Venous) CDT PM CDT Madiha Castro M.D. LAB BLOOD ADD-ON Performing Organization Address City/State/ZIP Code Phon e Number [facility] - [address] [place], [place] [address] [facility] [place] [address] [facility] [address] (ABNORMAL) Basic Metabolic Panel (01/12/2022 4:35 AM CDT) P athologist Signature Potassium, S 4.0 3.6 - [...] 01/12/2022 DTL Black/ mL/min/BSA 5:21 AM CDT [place] Comment: ----ADDITIONAL INFORMATION---- Estimated GFR calculated using the 2009 CKD_EPI creatinine equation. eGFR-Black/ >90 >=60 mL/min/BSA 2021 5:21 AM CDT DTL Comment: ----ADDITIONAL INFORMATION---- Estimated GFR calculated using the 2009 CKD_EPI creatinine equation. Calcium, Total, S 9.0 8.6 - 10.0 mg/dL 01/12/2022 5:21 AM CDT DTL Glucose, S 103 70 - 140 mg/dL 01/12/2022 5:21 AM CDT D TL Specimen Anatomical Collection Method Collection Time Receive d Time (Source) Location / / Volume Laterality Blood (Blood, 01/12/2022 4:35 AM 01/13/20 5:06 Venous) CDT AM CDT Madiha Castro M.D. LAB BLOOD ADD-ON Performing Organization Address City/State/ZIP Code Phon e Number [facility] - [address] [place], [place] [address] [facility] [place] [address] [facility] [address] [facility] (ABNORMAL) Basic Metabolic Panel (01/11/2022 8:54 PM [...] 01/11/2022 DTL Black/ mL/min/BSA 10:49 PM CDT [place] Comment: ----ADDITIONAL INFORMATION---- Estimated GFR calculated using [...] / Volume Laterality Blood (Blood, 01/11/2022 8:54 PM 01/12/20 9:29 Venous) CDT PM CDT Madiha Castro M.D. LAB BLOOD ADD-ON Performing Organization Address City/State/ZIP Code Phon e Number [facility] - [address] [place], [place] [address] [facility] [place] [address] [facility] [address] EEG ROUTINE (01/11/2022 1:29 PM CDT) Specimen [...] 01/11/2022 DTL Black/ mL/min/BSA 8:15 AM CDT [place] Comment: ----ADDITIONAL INFORMATION---- Estimated GFR calculated using the 2009 CKD_EPI creatinine equation. eGFR-Black/ >90 >=60 mL/min/BSA 2021 8:15 AM CDT DTL Comment: ----ADDITIONAL INFORMATION---- Estimated GFR calculated using the 2009 CKD_EPI creatinine equation. Calcium, Total, S 8.8 8.6 - 10.0 mg/dL 01/11/2022 8:15 AM CDT DTL Glucose, S 106 70 - 140 mg/dL 01/11/2022 8:15 AM CDT D TL Specimen Anatomical Collection Method Collection Time Receive d Time (Source) Location / / Volume Laterality Blood 01/11/2022 7:12 AM 7:57 CDT AM CDT Madiha Castro M.D. LAB BLOOD ADD-ON Performing Organization Address City/State/ZIP Code Phon e Number [facility] - [address] [place], [place] [address] [facility] [place] [address] [facility] 200 [facility] Sodium (01/10/2022 8:14 PM CDT) P athologist Signature Sodium, P 139 135 - 145 01/10/2022 8:30 STMA mmol/L PM CDT Specimen Anatomical Collection Method Collection Time Receive d Time (Source) Location / / Volume Laterality Blood (Blood, 01/10/2022 8:14 PM 01/11/20 8:20 Venous) CDT PM CDT Madiha Castro M.D. LAB BLOOD ADD-ON Performing Organization Address City/State/ZIP Code Phon e Number [facility] - [address] [place], [place] [address] [place] [address] Patient Status (01/10/2022 2:06 PM CDT) athologist Signature Temperature 36.0 37.0 deg C 01/10/2022 STMA 2:06 PM CDT FIO2 0.50 0.21=AIR 01/10/2022 STMA 2:06 PM CDT Specimen Anatomical Collection Method Collection Time Receive d Time (Source) Location / / Volume Laterality Blood 01/10/2022 2:06 PM 2:06 CDT PM CDT Eileen Amezquita APRN, HAND STRAIGHTENER, MNA LAB BLOOD NON ADD-ON Performing Organization Address City/State/ZIP Code Phon e Number [facility] - [address] [place], [place] [address] [place] [address] Glucose, Whole Blood (01/10/2022 2:06 PM CDT) athologist Signature Glucose 118 70 - 140 01/10/2022 2:10 STMA mg/dL PM CDT Specimen Anatomical Collection Method Collection Time Receive d Time (Source) Location / / Volume Laterality Blood (Blood, 01/10/2022 2:06 PM 01/11/20 2:06 Arterial Line) CDT PM CDT Ana Vaz M.D. LAB BLOOD TROPONIN Performing Organization Address City/State/ZIP Code Phon e Number [facility] - [address] [place], [place] [address] [place] [address] Potassium, Blood (01/10/2022 2:06 PM CDT) athologist Signature Potassium, B 4.1 3.6 - 5.2 01/10/2022 STMA mmol/L 2:10 PM CDT Specimen Anatomical Collection Method Collection Time Receive d Time (Source) Location / / Volume Laterality Blood (Blood, 01/10/2022 2:06 PM 01/11/20 2:06 Arterial Line) CDT PM CDT Ana Vaz M.D. LAB BLOOD NON ADD-ON Performing Organization Address City/[facility] Phon e Number [facility] - [address] [place], [place] [address] Sodium, B (01/10/2022 2:06 PM CDT) athologist Signature Sodium, B 138 135 - 145 01/10/2022 2:10 STMA mmol/L PM CDT Specimen Anatomical Collection Method Collection Time Receive d Time (Source) Location / / Volume Laterality Blood (Blood, 01/10/2022 2:06 PM 01/11/20 2:06 Arterial Line) CDT PM CDT Ana Vaz M.D. LAB BLOOD NON ADD-ON Performing Organization Address [facility] Phon e Number [facility] - [address] [place], [place] [address] [place] [address] Calcium, Ionized (01/10/2022 2:06 PM CDT) athologist Signature Calcium, 4.95 4.65 - 5.30 01/10/2022 STMA Ionized, B mg/dL 2:10 PM CDT Specimen Anatomical Collection Method Collection Time Receive d Time (Source) Location / / Volume Laterality Blood (Blood, 01/10/2022 2:06 PM 01/11/20 2:06 Arterial Line) CDT PM CDT Ana Vaz M.D. LAB BLOOD NON ADD-ON Performing Organization Address [facility] Phon e Number [facility] - [address] [place], [place] [address] (ABNORMAL) Blood Gas with Coox, Arterial [...] Laterality Blood (Blood, 01/10/2022 2:06 PM 01/11/20 22 2:06 Arterial Line) CDT PM CDT Ana Vaz M.D. LAB BLOOD NON ADD-ON Performing Organization Address City/State/ZIP Code Phon e Number [address] [place] [address] [facility] 200 [facility] Sodium, B (01/10/2022 12:21 PM CDT) P athologist Signature Sodium, B CANCELED 135 - 145 01/10/2022 STMA mmol/L 8:14 PM CDT Comment: REVISED RESULTS ----PREVIOUSLY REPORTED ---- 138, Flagged as: Normal (Reported 01/10/2022 12:24) Specimen Anatomical Collection Method Collection Time Receive d Time (Source) Location / / Volume Laterality Blood 01/10/2022 12:21 01/10/2022 PM CDT 12:21 PM CDT Narrative [facility] - [facility] - 01/10/2022 8:14 PM CDT Sodium, B was cancelled on 01/10/2022 at 20:14; RBS update. Eileen Amezquita APRN, CRNA, MNA LAB BLOOD NON ADD-ON Performing Organization Address City/[facility]/ZIP Code Phon e Number [facility] - [address] [place], [place] [address] 05 [place] [address] Patient Status (01/10/2022 12:21 PM CDT) athologist Signature FIO2 0.50 0.21=AIR 01/10/2022 12:21 STMA PM CDT Specimen Anatomical Collection Method Collection Time Receive d Time (Source) Location / / Volume Laterality Blood 01/10/2022 12:21 01/10/2022 PM CDT 12:21 PM CDT Eileen Amezquita APRN, CRNA, MNA LAB BLOOD NON ADD-ON Performing Organization Address City/[facility]/ZIP Code Phon e Number [facility] - [address] [place], [place] [address] 05 [place] [address] Glucose, Whole Blood (01/10/2022 12:21 PM CDT) athologist Signature Glucose 136 70 - 140 01/10/2022 STMA mg/dL 12:24 PM CDT Specimen Anatomical Collection Method Collection Time Receive d Time (Source) Location / / Volume Laterality Blood (Blood, 01/10/2022 12:21 01/10/2022 Arterial Line) PM CDT 12:21 PM CDT Ana Vaz M.D. LAB BLOOD TROPONIN Performing Organization Address City/[facility]/ZIP [facility] Phon e Number [facility] - [address] [place], [place] [address] [place] [address] Potassium, Blood (01/10/2022 12:21 PM CDT) athologist Signature Potassium, B 3.8 3.6 - 5.2 01/10/2022 STMA mmol/L 12:24 PM CDT Specimen Anatomical Collection Method Collection Time Receive d Time (Source) Location / / Volume Laterality Blood (Blood, 01/10/2022 12:21 01/10/2022 Arterial Line) PM CDT 12:21 PM CDT Ana Vaz M.D. LAB BLOOD NON ADD-ON Performing Organization Address [facility] Phon e Number [facility] - [address] [place], [place] [address] [address] [place] [address] [facility]-[address] Calcium, Ionized (01/10/2022 12:21 PM CDT) P athologist Signature Calcium, 5.01 4.65 - 5.30 01/10/2022 [facility]MA Ionized, B mg/dL 12:24 PM CDT Specimen Anatomical Collection Method Collection Time Receive d Time (Source) Location / / Volume Laterality Blood (Blood, 01/10/2022 12:21 01/10/2022 Arterial Line) PM CDT 12:21 PM CDT Ana Vaz M.D. LAB BLOOD NON ADD-ON Performing Organization Address City/[facility] Phon e Number [facility] - [address] [place], [place] [address] [address] [place] [address] [facility]-[address] (ABNORMAL) Blood Gas with Coox, Arterial [...] PM CDT MetHb 1.2 <1.5 % 01/10/2022 [facility] 12:24 PM CDT CtO2 15.5 (L) 18.0 - 01/10/2022 [facility] 21.0 vol % 12:24 PM CDT Specimen Anatomical Collection Method Collection Time Receive d Time (Source) Location / / Volume Laterality Blood (Blood, 01/10/2022 12:21 01/10/2022 Arterial Line) PM CDT 12:21 PM CDT Ana Vaz M.D. LAB BLOOD NON ADD-ON Performing Organization Address City/State/ZIP Code Phon e Number [facility] - [address] [place] [address] 559 [address] [place] [address] [facility] 200 [facility] Surgical Pathology, Frozen Lab (01/10/2022 12:03 PM CDT) Component Value Ref Test Analysis Performed At [facility] Range Method Time Signature 01/14/2022 [facility] 5:24 PM CDT Participated in Luz WilsonS -Pathology Fellow 01/14/2022 [facility] the Lashon Talley M.D.-Pathology Resident 5:24 PM CDT Interpretation Liliam Burr M.D. -Pathology Resident Report Bryanna Sanchez M.D. 01/14/2022 [facility] electronically 5:24 PM CDT signed by I verify that I have examined all relevant slides/materials for the specimen(s) and rendered or confirmed the diagnosis. Seen in consultation with: Felisha Silveira M.D., Ph.D. Frozen A. ??Brain, left temporal lesion, smears: ??High-grade glioma. 01/14/2022 [facility] Intraoperative 5:24 PM CDT Report Signed by Bryanna Sanchez M.D. 01/10/2022 5:19 PM Gross Description A. ??Received fresh labeled left brain temporal lesion is 01/14/2022 [facility] a 5:24 PM CDT 5.9 x 5.3 x 2.8 cm portion of brain with extensive hemorrhage. ??Smears prepared. ??Weight And Test Bar Clerk tissue submitted for permanent sections. ??A portion of tissue is collected for potential future ancillary studies. ??After clinical evaluation, residual tissue is procured for IRB [id number]. ??Grossed by Lashon Talley M.D.-Pathology Resident. B. ??Received fresh labeled left stereotactic tumor core is a 1.2 x 0.8 x 0.6 cm portion of brain. ??All submitted for permanent sections. ??Grossed by Don De La PazHSierra, SAMMI([facility]). C. ??Received fresh labeled left temporal brain lesion is a 3 x 3 x 0.5 cm aggregate of brain tissue admixed with blood. All submitted for permanent sections. ??After clinical evaluation, residual tissue is procured for IRB [id number]. Grossed by Don JohnsonHSAMMI Esquivel([facility]). D. ??Received fresh within three CUSA traps labeled left temporal brain lesion cusa socks is a 6 x 6 x 1 cm aggregate of friable fragments of brain tissue admixed with blood. ??Weight And Test Bar Clerk tissue submitted for permanent sections. ??After clinical evaluation, residual tissue is procured for IRB [id number]. ??Grossed by Don JohnsonH.Onelia, SAMMI([facility]). 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 See comment. 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 The biopsy specimen lacked microvascular proliferation and tumor necrosis. By immunohistochemistry, the tumor cells were negative for IDH1-R132H and showed retained ATRX expression. 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 Specimen (Source) Anatomical Collection Method Collection Time Re ceived Time Location / / Volume Laterality Tissue (Brain, 01/10/2022 12:03 Left) PM CDT Comment: IRB #[id number] Tissue (Brain, Left) 01/10/2022 2:36 PM C DT Comment: IRB #[id number] Tissue (Brain, Left) 01/10/2022 2:57 PM C DT Comment: IRB #[id number] Tissue (Brain, Left) 01/10/2022 3:07 PM C DT Comment: IRB #[id number] Narrative This result has an attachment that is no t available. Charles Ivey M.D., Ph.D. LAB SURG PATH ORDERABLES Performing Organization Address City/State/ZIP Code Phon e Number [facility] - [address] [place], [place] [address] [address] [place] [address] [facility] [address] Patient Status (01/10/2022 11:53 AM CDT) athologist Signature FIO2 0.50 0.21=AIR 01/10/2022 11:53 STMA AM CDT Specimen Anatomical Collection Method Collection Time Receive d Time (Source) Location / / Volume Laterality Blood 01/10/2022 11:53 01/10/2022 AM CDT 11:53 AM CDT Eileen Amezquita TRAFFIC AND TRANSPORT PLANNER, HAND STRAIGHTENER, MNA LAB BLOOD NON ADD-ON Performing Organization Address City/State/ZIP Code Phon e Number [facility] - [address] [place], [place] [address] [address] [place] [address] [facility] [address] Glucose, Whole Blood (01/10/2022 [...] Organization Address City/State/ZIP Code Phon e Number [facility] - [address] [place], [place] [address] [facility] [address] [facility] [address] Potassium, Blood (01/10/2022 11:53 AM CDT) athologist Signature Potassium, B 3.8 3.6 - 5.2 01/10/2022 ST[facility] mmol/L 11:55 AM CDT Specimen Anatomical Collection Method Collection Time Receive d Time (Source) Location / / Volume Laterality Blood (Blood, 01/10/2022 11:53 01/10/2022 Arterial Line) AM CDT 11:53 AM CDT Luda Galindo M.D. LAB BLOOD NON ADD-ON Performing Organization Address City/State/ZIP Code Phon e Number [facility] - [address] [place], [place] [address] [facility] [address] [facility] [address] Sodium, B (01/10/2022 11:53 AM CDT) athologist Signature Sodium, B 137 135 - 145 01/10/2022 STMA mmol/L 11:55 AM CDT Specimen Anatomical Collection Method Collection Time Receive d Time (Source) Location / / Volume Laterality Blood (Blood, 01/10/2022 11:53 01/10/2022 Arterial Line) AM CDT 11:53 AM CDT Luda Galindo M.D. LAB BLOOD NON ADD-ON Performing Organization Address City/[facility] Phon e Number [facility] - [address] [place], [place] [address] [address] [place] [address] [facility]-[address] Calcium, Ionized (01/10/2022 11:53 AM CDT) athologist Signature Calcium, 4.94 4.65 - 5.30 01/10/2022 [facility] Ionized, B mg/dL 11:55 AM CDT Specimen Anatomical Collection Method Collection Time Receive d Time (Source) Location / / Volume Laterality Blood (Blood, 01/10/2022 11:53 01/10/2022 Arterial Line) AM CDT 11:53 AM CDT Luda Galindo M.D. LAB BLOOD NON ADD-ON Performing Organization Address City/State/[facility] Phon e Number [facility] - [address] [place], [place] [address] [address] [place] [address] (ABNORMAL) Blood Gas with Coox, Arterial [...] LAB BLOOD NON ADD-ON Performing Organization Address City/[facility] Code Phon e Number [facility] - [address] [place], [place] 55 05 [place] [address] [facility] [address] Glucose, Whole Blood (01/10/2022 9:02 AM CDT) athologist Signature Glucose 127 70 - 140 01/10/2022 9:04 STMA mg/dL AM CDT Specimen Anatomical Collection Method Collection Time Receive d Time (Source) Location / / Volume Laterality Blood (Blood, 01/10/2022 9:02 AM 01/11/20 9:02 Arterial Line) CDT AM CDT Ana aVz M.D. LAB BLOOD TROPONIN Performing Organization Address City/State/[facility] Phon e Number [facility] - [address] [place], [place] [address] [facility] [address] [facility] [address] [facility] Potassium, Blood (01/10/2022 9:02 AM CDT) P athologist Signature Potassium, B 4.1 3.6 - 5.2 01/10/2022 [facility] mmol/L 9:04 AM CDT Specimen Anatomical Collection Method Collection Time Receive d Time (Source) Location / / Volume Laterality Blood (Blood, 01/10/2022 9:02 AM 01/11/20 9:02 Arterial Line) CDT AM CDT Ana Vaz M.D. LAB BLOOD NON ADD-ON Performing Organization Address City/[facility] Phon e Number [facility] - [address] [place], [place] [address] [address] [place], [place] [address] [place] [address] (ABNORMAL) Sodium, B (01/10/2022 9:02 AM CDT) P athologist Signature Sodium, B 129 (L) 135 - 145 01/10/2022 [facility] mmol/L 9:04 AM CDT Specimen Anatomical Collection Method Collection Time Receive d Time (Source) Location / / Volume Laterality Blood (Blood, 01/10/2022 9:02 AM 01/11/20 9:02 Arterial Line) CDT AM CDT Ana Vaz M.D. LAB BLOOD NON ADD-ON Performing Organization Address City/[facility] Phon e Number [facility] - [address] [place], [place] [address] [address] [place], [place] [address] [place] [address] Calcium, Ionized (01/10/2022 9:02 AM CDT) P athologist Signature Calcium, 4.89 4.65 - 5.30 01/10/2022 [facility] Ionized, B mg/dL 9:04 AM CDT Specimen Anatomical Collection Method Collection Time Receive d Time (Source) Location / / Volume Laterality Blood (Blood, 01/10/2022 9:02 AM 01/11/20 9:02 Arterial Line) CDT AM CDT Ana Vaz M.D. LAB BLOOD NON ADD-ON Performing Organization Address City/State/ZIP Code Phon e Number [facility] - [address] [place], [place] [address] [facility] [address] (ABNORMAL) Blood Gas with Coox, Arterial [...] / Volume Laterality Blood (Blood, 01/10/2022 9:02 AM 01/11/20 9:02 Arterial Line) CDT AM CDT Ana Vaz M.D. LAB BLOOD NON ADD-ON Performing Organization Address City/State/ZIP Code Phon e Number [facility] - [address] [place], [place] [address] [facility] [place] [address] [facility] [address] Type and Screen (with reflex Antibody ID) (01/10/2022 8:55 AM CDT) Patholo gist Method Time Signature ABORh O Neg Not 01/10/2022 STRM applicable 9:48 AM CDT Antibody Negative Negative 01/10/2022 STRM Screen 9:59 AM CDT Type & Screen 01/13/2022 01/10/2022 STRM Expiration 23:59 9:48 AM CDT Testing Warren DEFAULT 01/10/2022 STRM Location 9:04 AM CDT Specimen Anatomical Collection Method Collection Time Receive d Time (Source) Location / / Volume Laterality Blood (Blood, 01/10/2022 8:55 AM 01/11/20 9:04 Arterial Line) CDT AM CDT Resulting Agency Comment Drawn in [id number] by [email or web address] Ana Vaz M.D. LAB BLOOD BANK TEST ORDERABL ES Performing Organization Address City/[facility] Phon e Number [facility] - [address] [place], [place] [address] [facility] [address] (ABNORMAL) Sodium (01/10/2022 6:33 AM CDT) P athologist Signature Sodium, S 129 (L) 135 - 145 01/10/2022 DTL mmol/L 7:19 AM CDT Specimen Anatomical Collection Method Collection Time Receive d Time (Source) Location / / Volume Laterality Blood (Blood, 01/10/2022 6:33 AM 01/11/20 7:07 Venous) CDT AM CDT Madiha Castro M.D. LAB BLOOD ADD-ON Performing Organization Address City/[facility]/ZIP Code Phon e Number [facility] - [address] [place], [place] [address] [place] [address] [address] [facility] (ABNORMAL) Sodium (01/10/2022 12:57 AM CDT) P athologist Signature Sodium, S 130 (L) 135 - 145 01/10/2022 DTL mmol/L 1:43 AM CDT Specimen Anatomical Collection Method Collection Time Receive d Time (Source) Location / / Volume Laterality Blood (Blood, 01/10/2022 12:57 01/10/2022 1:26 Venous) AM CDT AM CDT Madiha Castro M.D. LAB BLOOD ADD-ON Performing Organization Address City/State/ZIP Code Phon e Number [facility] - [address] [place], [place] [address] [facility] [place], [place] [phone] [place] [address] [facility] Osmolality, Urine (01/09/2022 9:35 PM CDT) athologist Signature Osmolality, U 707 150 - 1150 01/09/2022 DTL mOsm/kg 10:42 PM CDT Specimen Anatomical Collection Method Collection Time Receive d Time (Source) Location / / Volume Laterality Urine (Urine, 01/09/2022 9:35 PM 01/10/20 22 Catheter) CDT 10:12 PM CDT Madiha Castro M.D. LAB URINE ORDERABLES Performing Organization Address City/[facility] Phon e Number [facility] - [address] [place], [place] [address] [place] [address] Sodium, Random, Urine (01/09/2022 9:35 PM [...] Laterality Urine (Urine, 01/09/2022 9:35 PM 01/10/20 Catheter) CDT 10:12 PM CDT Madiha Castro M.D. LAB URINE ORDERABLES Performing Organization Address City/[facility] Phon e Number [facility] - [address] [place], [place] [address] [place] [address] (ABNORMAL) Basic Metabolic Panel (01/09/2022 8:01 [...] CDT eGFR-Black/Afr >90 >=60 01/09/2022 STMA ican [place] mL/min/BSA 8:26 PM CDT Comment: ----ADDITIONAL INFORMATION---- Estimated GFR calculated using the 2009 CKD_EPI creatinine equation. eGFR Non-Black/ >90 >=60 mL/min/BSA 01/09/2022 8:26 PM CDT ST[facility] Comment: ----ADDITIONAL INFORMATION---- Estimated GFR calculated using the 2009 CKD_EPI creatinine equation. Calcium, Total, P 9.4 8.6 - 10.0 mg/dL 01/09/2022 8:26 PM CDT STMA Glucose, P 146 (H) 70 - 140 mg/dL 01/09/2022 8:26 PM CDT S TMA Specimen Anatomical Collection Method Collection Time Receive d Time (Source) Location / / Volume Laterality Blood (Blood, 01/09/2022 8:01 PM 01/10/20 8:09 Venous) CDT PM CDT Madiha Castro M.D. LAB BLOOD ADD-ON Performing Organization Address City/State/ZIP Code Phon e Number [facility] - [address] [place] [address] [address] [place] [address] [facility] [address] [facility] SARS Coronavirus 2, RNA, Rapid POC, V Asymptomatic (01/09/2022 7:24 PM CDT) [facility] Method Time Signature SARS Undetected Undetected 01/09/2022 DTLR Coronavirus-2 7:47 PM CDT , RNA, Rapid POC, V Comment: Negative for SARS-CoV-2. The Cue COVID-19 test is a molecular watson t for SARS-CoV-2, the virus that causes COVID- 19. A Negative result means that the Cue COV ID-19 test did not detect SARS-CoV-2 virus in your sample. [facility] COVID-19 test uses the Mantara nitoring System. This test has received Emergency Use Authorization (EUA) by the U.S. Food and Drug Administration (FDA) and is used per man ufacturer instructions. Performance characteristic s were verified by [facility] in a manner consistent with CLIA requirements. Fact sheets for this Emerg ency Use Authorization (EUA) can be found at the following links: Providers: https://[employer]/documentation/prov iders.pdf Patients: https://[employer]/documentation/tylor ents.pdf SARS Coronavirus 2, Source Nasopharynx DEFAULT 01/09/2022 7:47 PM CDT DTLR Specimen Anatomical Collection Method Collection Time Receive d Time (Source) Location / / Volume Laterality Varies 01/09/2022 7:24 PM 7:24 (Nasopharynx) CDT PM CDT Christina Tai P.A.-C., M.S. LAB MICROBIOLOGY - GENERAL ORDERABLES Performing Organization Address City/State/[facility] Code Phon e Number PERFORMING LABS, REF [place] [address] INTERFACE Ref Interface [address] [facility] DTLR Performing Labs, [place] [address] Interface [address] [facility] (ABNORMAL) CBC without Differential (01/09/2022 6:05 PM CDT) [facility] Method Time Signature Hemoglobin 12.2 11.6 - [...] M.S. LAB BLOOD ADD-ON Performing Organization Address City/[facility]/ZIP [facility] Phon e Number [facility] - [address] [place], [place] [address] Hemoglobin A1c (01/09/2022 5:58 PM CDT) athologist Signature Hemoglobin A1c, 5.1 4.0 - 5.6 01/09/2022 DT B % 7:58 PM CDT Specimen Anatomical Collection Method Collection Time Receive d Time (Source) Location / / Volume Laterality Blood (Blood, 01/09/2022 5:58 PM 01/10/20 22 7:40 Venous) CDT PM CDT Marysol Martinez M.D. LAB BLOOD ADD-ON Performing Organization Address City/[facility] Phon e Number [address] ECG 12 Lead (01/09/2022 4:44 PM CDT) athologist Signature Ventricular Rate 54 BPM MUSE ECG/Min AK Interval 138 ms MUSE QRSD Interval 86 ms MUSE QT Interval 424 ms MUSE QTC Interval 402 ms MUSE P Clawson 27 degrees MUSE R Clawson 44 degrees MUSE T Wave Clawson 54 degrees MUSE Specimen Anatomical Collection Method [...] heartburn, indigestion, Starting on Bee 01/10/22 at 195, Doses listed are in mg of elemental calcium. Take with food. 500 mg calcium carbonate contains 200 mg of elemental calc ium. carboxymethylcellulose 0.5 % ophthalmic solution 1 drop (REFRESH PLUS) 1 drop, both eyes, Every 1 hour PRN, dry eyes, OK to give either or both eyes, as required, Starting on 01/12/22 at 1610 ceFAZolin in dextrose (iso-os) IVPB [...] intravenous, Once in imaging, contrast, Starting on 01/13/22 at 1451, For 1 dose, Imaging [...] over 15 Minutes, Once, On Fri01/09/22 at 2045, For 1 dose, Drug Monitoring Program: Pharmacist to adjust medication dosing based on indication and drug clearance factors. levETIRAcetam in NaCl (iso-os) New Bag 01/10/2022 9:33 PM CDT 1,000 mg 400 mL/hr IVPB 1,000 mg (KEPPRA) 1,000 mg, intravenous, at 400 mL/hr, Administer over 15 Minutes, Once, On Fri01/10/22 at 2100, For 1 dose, Drug Monitoring Program: Pharmacist to adjust medication dosing based on indication and drug clearance factors. levETIRAcetam in NaCl (iso-os) New Bag 01/13/2022 4:47 PM CDT 1,000 mg 400 mL/hr IVPB 1,000 mg (KEPPRA) 1,000 mg, intravenous, at 400 mL/hr, Administer over 15 Minutes, Once, On Fri01/13/22 at 1530, For 1 dose, Drug Monitoring Program: Pharmacist to adjust medication dosing based on indication and drug clearance factors. levETIRAcetam tablet 1,000 mg (KEPPRA) Given 01/11/2022 9:05 PM CDT 1,000 mg 1,000 mg, oral, 2 times daily, First dose on Fri01/09/22 at 2100 Given 01/11/2022 8:08 AM CDT [...] 6 hours PRN, muscle spasms, Starting on 01/12/22 at 0922 NaCl 0.9% infusion Rate/Dose Verify [...] 6 hours PRN, nausea, vomiting, Starting on Bee 01/10/22 at 1952, For 48 hours, Reassess for [...] (TYLENOL) 0034 (Given - Provider: Maggie Garces RSanjuanitaN.)0525 (Given - Provider: Maggie Garecs RSanjuanitaN.)1234 (Given - Provider: Shilpa Burnette R.N.)1709 (Given - Provider: Amelie Gayel R.N.) 0100 (Given - Provider: Luda Yu R.N.)0506 (Given - Provider: Luda Yu R.N.)1235 (Given - Provider: Shilpa Burnette R.N.)1823 (Given - Provider: Hattie Baldwin R.N.) 0010 (Given - Provider: Beryl Hyde R.N.)0622 (Given - Provider: Beryl Orozco R.N.)1133 (Given - Provider: Shilpa Burnette R.N.) 1,000 mg, oral, Every 6 hours, First [...] 1) 0 525 (Given - Provider: Maggie Garcse R.N.)0952 (Given - Provider: Shilpa Burnette R.N.)1648 (Given - Provider: Amelie Gayle R.N.)2140 (Given - Provider: Amelie Gayle R.N.) 0334 (Given - Provider: Luda ramesh RSanjuanitaNSanjuanita)0902 (Given - Provider: Shilpa Burnette R.N.)1647 (Given - Provider: Hattie Baldwin R.N.)2137 (Given - Provider: Hattie Baldwin R.N.) 0402 (Given - Provider: Beryl Orozco RSanjuanitaNSanjuanita)0911 (Given - Provider: Tutu QuinteroNSanjuanita) 3 mg, oral, Every 6 hours, First dose on Fri01/15/22 at 0430, Fo r 4 days levETIRAcetam tablet 1,000 mg (KEPPRA) 0952 (Given - P rovider: Tutu QuinteroNSanjunaita)2140 (Given - Provider: Amelie Gayle R.N.) 0901 (Given - Provider: Shilpa Burnette R.N.)2138 (Given - Provider: Hattie Baldwin R.N.) 0911 (Given - Provider: Shilpa Burnette R.N.) 1,000 mg, oral, 2 times daily, First dose on Fri01/12/[address] tablet 40 mg (PROTONIX) 0616 (Given - Provider: Maggie Garces R.N.) 0607 (Given - Provider: Tutu RobertsNSanjuanita) 0622 (Given - Provider: Beryl L Van Shalini, R.N.) 40 mg, oral, Daily before breakfast, Fir st dose on 01/13/22 at 0700, Swallow whole. Do NOT crush, chew, or split tablet. PRN Medication Order 01/15/2022 01/16/2022 01/17/2022 benzocaine-menthoL 15-3.6 mg per lozenge 1 lozenge (CEPACOL) 1 lozenge, oral, As needed, sore throat, throat irritation, Starting on Bee 01/10/22 at 195 bisacodyL suppository 10 mg (DULCOLAX) 10 mg, rectal, Daily PRN, constipation, Starting on Bee 01/10/22 at 1952, Ordered sequence of administration: polyethylene glycol, then bisacodyl until BM achieved. calcium carbonate chewable tablet 400 mg of calcium (TUMS) 400 mg of calcium, oral, Every 4 hours P RN, heartburn, indigestion, Starting on Bee 01/10/22 at 195, Doses listed are in mg of elemental [...] if heart rate is less than 60 bp m. Keep systolic blood pressure less mayuri n 160 mmHg. Notify prescriber if systolic blood pressure remains greater than indicated limit after 3 doses. methocarbamoL tablet 750 mg (ROBAXIN) 12 28 (Given - Provider: Luda Yu R.N.) 750 [...] than comfort goal, Starting on Fri01/10/22 at 1951 oxyCODONE IR tablet 5 mg (ROXICODONE)(Linked Group [...] 10, Starting on Bee 01/10/22 at 1952 Or oxyCODONE IR tablet 10 mg (ROXICODONE)Jump to med 10 mg, oral, Every 4 hours PRN, severe p ain or score 7-10 of 10, or for pain greater than comfort goal, Starting on Bee 01/10/22 at 1952 documented in this encounter Additional Health Concerns Infection Onset Date Last Indicated Resolved Time COVID19 Pending 01/09/2022 01/09/2022 01/09/2022 7:47 PM CDT documented as of this encounter
--- OUTSIDE RECORDS SUMMARY | 2022-04-10 09:43 | XMS_ITS | Encounter Summary ---
:1970 Author Organization [facility] Address [address] [place] [address] Care Team Providers Name Role Phone Unavailable Primary Care Provider Unavailable Reason for Visit Auth/Cert Specialty Diagnoses / Procedures Referred By Contact Refer red To Contact Diagnoses Malignant Neoplasm Of Brain (HCC) Procedures NV CRANIOT SUBDURAL IMPL ELECTRODE NV MAPPING CORTICAL INITIAL HR Awake left temporoparietal stereotactic craniotomy tumor resection, speech mapping, intraop MRI, supine position. Referral ID Status Reason Start Date Expiration Date Visits Requ ested Visits Authorized [id number] 1 1 Encounter Details Date Type Department Care Team Description 01/10/2022 Hospital Encounter Department of [place], Charles Malign ant Neoplasm Radiology, Rhona Ojeda M.D., Ph.D. Of Brain (HCC) [place] [address] [place] [phone] [place] [address] [place], [place] (Work) [phone] Social History Tobacco Use Types Packs/Day Years [...] have completed or the highest Maulik, MEd, SWINE GENETICS RESEARCHER, 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 Sex Assigned [...] levETIRAcetam (KEPPRA) Take 1,000 mg by 0 12/07/ 022 01/24/2022 1,000 mg tablet mouth 2 [...] 05/03/2022 Telemedicine Clinical Genomics Sanya Mehta M.D. [address] [place] [phone] 05/06/2022 Clinical Communication Admitting/Central Scheduling 05/09/2022 Office Visit Oncology Farzana Allen M.D. [address] [place] [phone] 05/17/2022 Clinical Communication Admitting/Central Scheduling 05/21/2022 Lab Laboratory Medicine Vini Maki M.D., Ph.D. [address] [place] [phone] 05/21/2022 Appointment Radiology Vini Maki M.D., Ph.D. [address] [place] [phone] 05/21/2022 Office Visit Oncology Vini Maki M.D., Ph.D. [address] [place] [phone] 06/11/2022 Ancillary Procedure Ophthalmology Chas Shin M.D. [address] [place] [phone] 06/11/2022 Ancillary Procedure Ophthalmology Chas Shin M.D. [address] [place] [phone] 06/11/2022 Office Visit Ophthalmology Chas Shin M.D. [address] [place] [phone] documented as of this encounter Procedures Procedure Name Priority Date/Time Associated Comments Diagnosis MR BRAIN WITHOUT RAD - Routine 01/10/2022 5:35 Malignant Results for this AND WITH IV (most inpatients PM CDT Neoplasm Of Brain proced ure are in CONTRAST and all (HCC) the results outpatients) section. documented in this encounter Results MR Brain without and with IV Contrast (01/10/2022 5:35 PM CDT) Anatomical Region Laterality Modality Head, Brain, Neuroradiology RST LOS, Neuroradiology ARZ N/A Magnetic Resonance LOS, Neuroradiology FLA [facility] Specimen (Source) Anatomical Collection Method Collection Time [...] COMPARISON: Multiple prior MRIs of the b [facility] most recently 01/09/2022 CLINICAL: History of grade [...] soft tissues. IMPRESSION: Interval repeat left temporoparietal supervisor aircraft cleaning niotomy and resection of left temporoparietal region [...] mL Given 01/10/2022 5:36 PM CDT 8 m L (GADAVIST) 0.01-30 mL, intravenous, Once in imaging, contrast, Starting on Bee 01/10/22 at 1735, For 1 dose, Imaging Protocol Orders, Dose per Radiant Medication Guidelines Intrathecal doses greater than 0.25 mL not recommended. documented in this encounter
--- OUTSIDE RECORDS SUMMARY | 2022-04-10 09:44 | XMS_ITS | Encounter Summary ---
:1970 Author Organization [facility] Address [address] [place] [address] Care Team Providers Name Role Phone Unavailable Primary Care Provider Unavailable Reason for Referral Outpatient (Routine) - Closed Specialty Diagnoses / Procedures Referred By Contact Refer red To Contact Neurological Surgery Diagnoses Mass Brain Evangelist Salinas M.D., [facility] Ph.D. [address] [place] [phone] Referral ID Status Reason Start Date Expiration Date Visits Requ ested Visits Authorized [id number] Closed 01/01/2022 01/01/2023 1 1 Scheduling Instructions Please schedule at least one day after f unctional MRI MRI/CAT/PET Scan (Routine) - Closed Specialty Diagnoses / Procedures Referred By Contact Refer red To Contact Radiology Diagnoses Mass Brain Evangelist Salinas M.D., [facility] Procedures MR Brain Functional Language with MD Administration Ph.D. [address] [place] [phone] Referral ID Status Reason Start Date Expiration Date Visits Requ ested Visits Authorized [id number] Closed 01/01/2022 01/01/2023 1 1 Encounter Details Date Type Department Care Team Description 01/01/2022 Orders Only Department of LarryMarsha carr Mass Br ain (Primary Neurologic Surgery in R.N. Dx) [place], [place] [address] [place] [phone] Social History Tobacco Use Types Packs/Day Years [...] or slept in a snf (including now)? Sex Assigned at Date Recorded Female 01/07/2022 11:11 AM CDT documented as of this encounter Plan of Treatment Upcoming Encounters Date Type Specialty Care Team Description 05/03/2022 Telemedicine Clinical Genomics Sanya Mehta M.D. [address] [place] [phone] 05/06/2022 Clinical Communication Admitting/Central Scheduling 05/09/2022 Office Visit Oncology Farzana Allen M.D. [address] [place] [phone] 05/17/2022 Clinical Communication Admitting/Central Scheduling 05/21/2022 Lab Laboratory Medicine Vini Maki M.D., Ph.D. [address] [place] [phone] 05/21/2022 Appointment Radiology Vini Maki M.D., Ph.D. [address] [place] [phone] 05/21/2022 Office Visit Oncology Vini Maki M.D., Ph.D. [address] [place] [phone] 06/11/2022 Ancillary Procedure Ophthalmology Chas Shin M.D. [address] [place] [phone] 06/11/2022 Ancillary Procedure Ophthalmology Chas Shin M.D. [address] [place] [phone] 06/11/2022 Office Visit Ophthalmology Chas Shin M.D. [address] [place] [phone] Scheduled Referrals Name Type Priority Associated Order Schedule Diagnoses Neurological Surgery Outpatient Referral Routine Mass Brain Expected: - General consult 01/01/2022 (clinic) (Approximate), Expires: 04/03/2023 documented as of this encounter Results MR Brain Functional Language with MD Administration (01/09/2022 12:04 PM CDT) Anatomical Region Laterality Modality Head, Brain, Neuroradiology RST LOS, Neuroradiology VIN N/A Magnetic Resonance LOS, Neuroradiology FLA [facility] Specimen (Source) Anatomical Collection Method [...] the appearance and size of the left yyesmbd-ifkkjgjj-gswbpsqz mass since 03/2022. The mass demonstrates new [...] not well visualized. Perfusion Findings: ??The enhancing bhmui phery demonstrates increased rCBV. Cerebrovascular Reactivity (breath [...] were acquired and statistically evaluated with the [employer] workstation using AFNI based correlation analysis. Training: ??The patient was trained in t he selected fMRI tasks by Dr. Coffey. ??The patient's ability to perform these tasks was assessed greta sarah the training session. 1. ??Task: ??Rhyming [facility] Patient self-assessment of performance: ??Inadequate Technologist assessment of performance: ??Inadequate Accuracy: ?11.7% Average response time: ??1.7sec Head motion: ? 0.4 mm Statistical methods: ?T statis tic filtered 2. ??Task: ??Sentence completion [facility] Patient self-assessment of performance: ?Adequate Technologist assessment [...] the appearance and size of the left nibttvx-kzvthkub-bnetnkvv mass since 03/2022. The mass demonstrates new [...] were acquired and statistically evaluated with the [employer] workstation using AFNI based correlation analysis. Training: The patient was trained in the selected fMRI tasks by Dr. Coffey. The patient's ability to perform these tasks was assessed duri ng the training session. 1. Task: Rhyming SMS Patient self-assessment of performance: Inadequate Technologist assessment of performance: Inadequate Accuracy: 11.7% Average response time: 1.7sec Head motion: 0.4mm Statistical methods: T statistic filtere d 2. Task: Sentence completion SMS Patient self-assessment [...]
--- OUTSIDE RECORDS SUMMARY | 2022-04-10 09:44 | XMS_ITS | Encounter Summary ---
:1970 Author Organization [facility] Address [address] [place] [address] Care Team Providers Name Role Phone Unavailable Primary Care Provider Unavailable Reason for Visit Outpatient (Routine) - Closed Specialty Diagnoses / Procedures Referred By Contact Refer red To Contact Oncology Rebeca Valle P .A.-C., M.S. [facility] [address] [place] [phone] Referral ID Status Reason Start Date Expiration Date Visits Requ ested Visits Authorized [id number] Closed 01/09/2022 01/09/2023 1 1 Encounter Details Date Type Department Care Team Description 01/09/2022 Office Visit Department of Rebeca Valle Malignan t Neoplasm Of Oncology in Tu.Ana, M.S. Brain (HCC) (Primary [place], [place] 200 [facility] Dx) [address] [place] [phone] Social History Tobacco Use Types Packs/Day Years [...] 01/07/2022 organizations such as faith groups, unions, [employer]BeVocal or athletic groups, or school groups? How [...] have completed or the highest Maulik, MEd, LIFE TEACHER, 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 Sex Assigned at Date Recorded Female 01/07/2022 11:11 AM CDT documented as of this encounter Progress Notes Rebeca Valle P.A.-C., M.S. - 01/09/2022 1:00 PM CDT Images from the original note were not included. SUBJECTIVE COLLABORATING ONCOLOGIST: Dr. Cedeno PRIMARY WAYNE ONCOLOGIST: No care housekeeping and laundry team leader to display CHIEF COMPLAINT/REASON FOR [...] sense. The patient was taken to the [facility] with altered mental status. The patient was [...] with steroids and Keppra and [place] [facility] [place] 11/30/2021 Imaging MRI of [...] left mass, biopsy - Astrocytoma, at least MATERIAL INSPECTOR WHO grade 3. See comment. B. Brain, left mass, excision - Astrocytoma, at least MATERIAL INSPECTOR WHO grade 3. See comment. Final Diagnosis: [...] to Dr. Shelbie Ackerman at the [facility]. Discussed that it was okay for the patient to proceed with chemotherapy and radiation 1 month from biopsy date. Also discussed that itwas okay for the patient to travel on a commercial air flight approximately 1 month from biopsy as she was planning for a trip to [place] with her significant other in December. 12/24/[address] Shelbie Ackerman who reviewed the patient's case with Dr. [place] and he recommended against additional surgery. Dr. Macias recommended proceeding with a combination of radiation therapy plus temozolomide. Referral to Radiation Oncology at [facility] in [place]. 01/14/2022 - Radiation Therapy Radiation Therapy Treatment [...] Component Date Value ??? Case Number 12/05/2021 [id number] ??? Participated in the Inte* 12/05/2021 Heath [...] of the case. ??? Material Received 12/05/2021 Value:Domingo. [id number]: Brain, left mass 3 stained slides ??? Interpretation 12/05/2021 Value:PRELIMINARY DIAGNOSIS Brain, left temporal-parietal, biopsy and excision ([id number]; 12/05/2021): Mitotically-active infiltrating glioma. See comment. COMMENT A Final Integrated Diagnosis corresponding to the 2020 WHO Classification of MATERIAL INSPECTOR Tumors will be reported subsequently, following receipt of results of next generation sequencing studies being performed by the referring institution. This mitotically-active glioma exhibits appreciable nuclear atypia, favoring astrocytic morphology, and demonstrable mitotic activity in this biopsy sampling (reaching 3 mitoses in 10 high powered garcia) in the absence of microvascular proliferation or necrosis, histologically suggestive of a higher-grade (at least MATERIAL INSPECTOR WHO grade 3) designation on a preliminary [...] report. Per report, outside MGMT promoter studies ([facility]) resulted NEGATIVE for MGMT promoter methylation. RADIOLOGICAL [...] were going well until this last weekend, she started to become more fatigued. Then headaches, vision changes, speech changes, changes in taste andsmell presented. She was consistently taking the 4mg [...] physicians, nurse practitioners/physician assistants, nurses and other product support rep that specialize in this cancer. Also, reviewed [...] Clinical Genomics Sanya Mehta M.D. [address] [place] [phone] 05/06/2022 Clinical Communication Admitting/Central Scheduling 05/09/2022 Office Visit Oncology Farzana Allen M.D. [address] [place] [phone] 05/17/2022 Clinical Communication Admitting/Central Scheduling 05/21/2022 Lab Laboratory Medicine Vini Maki M.D., Ph.D. [address] [place] [phone] 05/21/2022 Appointment Radiology Vini Maki M.D., Ph.D. [address] [place] [phone] 05/21/2022 Office Visit Oncology Vini Maki M.D., Ph.D. [address] [place] [phone] 06/11/2022 Ancillary Procedure Ophthalmology Chas Shin M.D. [address] [place] [phone] 06/11/2022 Ancillary Procedure Ophthalmology Chas Shin M.D. [address] [place] [phone] 06/11/2022 Office Visit Ophthalmology Chas Shin M.D. [address] [place] [phone] documented as of this encounter Visit Diagnoses Diagnosis Malignant Neoplasm Of Brain (HCC) - Prim uyen documented in this encounter
--- OUTSIDE RECORDS SUMMARY | 2022-04-10 09:44 | XMS_ITS | Encounter Summary ---
:1970 Author Organization [facility] Address [address] [place] [address] Care Team Providers Name Role Phone Unavailable Primary Care Provider Unavailable Encounter Details Date Type Department Care Team Description 01/09/2022 Clinical Communication Department of Rebeca Valle , Oncology in P.A.-C., M.S. [place], [place] [address] [place] [address] 200 [place] [phone] Social History Tobacco Use Types Packs/Day Years [...] have completed or the highest Maulik, MEd, DOCK WORKER, 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 Sex Assigned at Date Recorded Female 01/07/2022 11:11 AM CDT documented as of this encounter Plan of Treatment Upcoming Encounters Date Type Specialty Care Team Description 05/03/2022 Telemedicine Clinical Genomics Sanya Mehta M.D. [address] [place] [phone] 05/06/2022 Clinical Communication Admitting/Central Scheduling 05/09/2022 Office Visit Oncology Farzana Allen M.D. [address] [place] [phone] 05/17/2022 Clinical Communication Admitting/Central Scheduling 05/21/2022 Lab Laboratory Medicine Vini Maki M.D., Ph.D. [address] [place] [phone] 05/21/2022 Appointment Radiology Vini Maki M.D., Ph.D. [address] [place] [phone] 05/21/2022 Office Visit Oncology Vini Maki M.D., Ph.D. [address] [place] [phone] 06/11/2022 Ancillary Procedure Ophthalmology Chas Shin M.D. [address] [place] [phone] 06/11/2022 Ancillary Procedure Ophthalmology Chas Shin M.D. [address] [place] [phone] 06/11/2022 Office Visit Ophthalmology Chas Shin M.D. [address] [place] [phone] documented as of this encounter Visit Diagnoses Diagnosis Malignant Neoplasm Of Brain (HCC) - Prim uyen documented in this encounter Additional Health Concerns Infection Onset Date Last Indicated Resolved Time COVID19 Pending 01/09/2022 01/09/2022 01/09/2022 7:47 PM CDT documented as of this encounter
--- OUTSIDE RECORDS SUMMARY | 2022-04-10 09:44 | XMS_ITS | Encounter Summary ---
:1970 Author Organization [facility] Address [address] [place] [address] Care Team Providers Name Role Phone Unavailable Primary Care Provider Unavailable Reason for Referral Outpatient (Routine) - Closed Specialty Diagnoses / Procedures Referred By Contact Refer red To Contact Clinical Genomics Diagnoses Malignant Neoplasm Of Brain (HCC) Cliff Sumner M.D., [facility] [address] [place] [address] Referral ID Status Reason Start Date Expiration Date Visits Requ ested Visits Authorized [id number] Closed 01/01/2022 01/01/2023 1 1 Outpatient (Routine) - Closed Specialty Diagnoses / Procedures Referred By Contact Refer red To Contact Social Work Diagnoses Malignant Neoplasm Of Brain (HCC) Cliff Sumner M.D., [facility] [address] [place] [phone] Referral ID Status Reason Start Date Expiration Date Visits Requ ested Visits Authorized [id number] Closed 01/01/2022 01/01/2023 1 1 Scheduling Instructions Phone is okay. Please contact patient fo r preference. Reason for Visit Appointment Request (Routine) - Closed Specialty Diagnoses / Procedures Referred By Contact Refer red To Contact Radiation Oncology Diagnoses Astrocytoma (HCC) Shelbie Ackerman M.D. [address] [facility] [place] , [facility] [address] [place] [address] Referral ID Status Reason Start Date Expiration Date Visits Requ ested Visits Authorized [id number] Closed 12/28/2021 12/28/2022 1 1 Encounter Details Date Type Department Care Team Description 01/01/2022 Hospital Encounter Department of Stephanie Gleason Neoplasm Radiation Oncology Sebastian Marcelino Of Brain (HCC) in [address] (Primary Dx) [place], [place] [address] [facility] [address] [place], [place] [phone] (Work) [phone] Social History Tobacco Use Types Packs/Day Years [...] More than 4 times per year 01/07/2022 congregational services? Do you belong to any clubs [...] 10:00 AM CDT RADIATION ONCOLOGY CONSULTATION Supervising Leather Grader: Dr. Stephanie Gleason Referring Provider: Shelbie Ackerman M.D. Primary Care Provider: Dr. Marie Yoon Home address: [address] [facility] [phone] SUBJECTIVE History of present illness Mia Cedillo is a 51 y.o. 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 The patient's oncologic history is as follows: Oncology History Malignant Neoplasm Of Brain (HCC) 11/29/2021 Other The patient presented to [facility] with intermittent word-finding difficulties and partial seizures with a loss of consciousness. The patient was transferred to [facility]. She was started on steroids and Keppra with some improvement inoverall symptoms (headaches, word-finding), and no further seizures [...] left mass, biopsy - Astrocytoma, at least [employer] WHO grade 3. See comment. B. Brain, left mass, excision - Astrocytoma, at least [employer] WHO grade 3. See comment. Final Diagnosis: [...] Dr. Shelbie Ackerman at the [facility]. Discussed that it was okay for [...] plus temozolomide. Referral to Radiation Oncology at [facility] in [place]. 01/14/2022 - Radiation Therapy Radiation Therapy Treatment [...] full and symmetric in b/l UE andLE, uoctdr-hirg-sqrirb testing intact, normal gait. Imaging Outside MR [...] would recommend an MRI with contrast in [place] and a neurosurgery consultation to follow. Thepatient [...] consultation. I also will order a social service coordinator consultation to facilitate the patient's complex workup and treatment course. We reviewed our recommendations for definitive or adjuvant radiation treatment. We would recommend treatment over approximately 6 weeks, treating to 9535-5359 cGy in 30 fractions using IMRT. Medical oncology from [facility] has recommended concurrent temozolomide. We will reach out to Dr. Doherty from [facility] about possibly moving that consultation [...] or concerns. Dr. Stephanie Gleason is the corporate health consultant; please see attestation for further details. [...] methylation negative with molecular analysis pending who presentsnow to discuss radiation options. She is seen with her mother. I have reviewed her imaging, operative and pathology reports as described below. Since tapering the steroids she is having worsening word finding difficulties and headaches. She is anxious to get her treatments started. She is going to skip a planned two week vacation to [place] with her boyfriend, Erich. Her mother who is a [employer] carrier is from [place] and is currently living with her daughter [...] radiation and temozolomide. They all ready had requesteda second opinion at [facility] and we see an appointment January 14. We shared with them that without seeinga post-operative MRI it is difficult for us to comment on whether or not we could/should proceed with treatment now or if she has been maximally safely debulked. We discussed the rationale, risks, sideeffects and goals of radiation therapy. We discussed the acute as well as intermediate risks, including, but not limited to fatigue, nausea/vomiting, headaches, dermatitis, alopecia, seizures, weakness, mental status change, changes in cognition, brain radionecrosis. Final dose would be determined when we have the final mutational status, but could vary from 57 Gy to 60 Gy in 27 to 30 fractions. We are not aware of any [place] studies that she would be eligible for, so she will likely return here for radiation therapy. We discussed her case with our [employer] Rad Onc leader and proton therapy is not recommended. I shared with them that we can have their input for our field design. We discussed the pros and cons of radiation here vs in [place]. We discussed that we could get things started as soon as possible. Hopefully she will have some improvement with steroids. She may need rehabilitation and we will makea social work consultation. They asked about referral [...] Gleason M.D. 01/01/2022 2:41 PM CDT Pager [phone] documented in this encounter Miscellaneous Notes Addendum Note - Kimmie Goff C.NAndrea - 01/01/2022 10:00 AM CDT Encounter addended by: Kimmie Goff C.NAndrea on: 01/02/2022 7:12 AM Actions taken: Letter saved documented in this encounter Plan of Treatment Upcoming Encounters Date Type Specialty Care Team Description 05/03/2022 Telemedicine Clinical Genomics Sanya Mehta M.D. [address] [place] [phone] 05/06/2022 Clinical Communication Admitting/Central Scheduling 05/09/2022 Office Visit Oncology Farzana Allen M.D. [address] [place] [phone] 05/17/2022 Clinical Communication Admitting/Central Scheduling 05/21/2022 Lab Laboratory Medicine Vini Maki M.D., Ph.D. [address] [place] [phone] 05/21/2022 Appointment Radiology Vini Maki M.D., Ph.D. [address] [place] [phone] 05/21/2022 Office Visit Oncology Vini Maki M.D., Ph.D. [address] [place] [phone] 06/11/2022 Ancillary Procedure Ophthalmology Chas Shin M.D. [address] [place] [phone] 06/11/2022 Ancillary Procedure Ophthalmology Chas Shin M.D. [address] [place] [phone] 06/11/2022 Office Visit Ophthalmology Chas Shin M.D. [address] [place] [phone] Scheduled Referrals Name Type Priority Associated Diagnoses [...]
--- OUTSIDE RECORDS SUMMARY | 2022-04-10 09:44 | XMS_ITS | Encounter Summary ---
:1970 Author Organization [facility] Address [address] [place] [address] Care Team Providers Name Role Phone Unavailable Primary Care Provider Unavailable Reason for Visit Auth/Cert Specialty Diagnoses / Procedures Referred By Contact Refer red To Contact Diagnoses Malignant Neoplasm Of Brain (HCC) Procedures NH CRANIOT SUBDURAL IMPL ELECTRODE NH MAPPING CORTICAL INITIAL HR Awake left temporoparietal stereotactic craniotomy tumor resection, speech mapping, intraop MRI, supine position. Referral ID Status Reason Start Date Expiration Date Visits Requ ested Visits Authorized [id number] 1 1 Encounter Details Date Type Department Care Team Description 01/10/2022 Surgery RST ROMB MAIN OR Charles Ivey, Asleep left [address] [facility] Sebastian, Ph.D. temporoparietal [place], [place] [address] [email or web address]] stereotactic craniotomy [id number] [place], [place] tumor resection, speech [phone] mapping, supine position, intraoperative MRI, BK [...] 01/07/2022 organizations such as mandaen groups, unions, fraMarinelayer or athletic groups, or school groups? How [...] have completed or the highest Maulik, MEd, EMERGENCY NURSE, 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 Sex [...] AM CDT DISCHARGE SUMMARY BRIEF OVERVIEW Hospital: [facility] Discharge Provider: Charles Ivey M.D. Primary [...] M.D., Ph.D.Madiha Castro M.D.Johnathan Jones M.D., Ph.D.Marisol Avilze, Ph.D., L.P. RUST ROMB OR DISCHARGE DISPOSITION Rehab Facility [[id number]] [...] Status Pathology Exempt Research Only Collected (01/10/22 5893) DETAILS OF HOSPITAL STAY REASON FOR ADMISSION Tumor Brain (HCC) HOSPITAL COURSE Mia Richardson is a 51 y.o. female with a PMHx of hypertension and recent biopsy and subtotal resection on 12/05/2021 at [facility] for grade 3 astrocytoma, IDH wildtype, MGMT [...] biopsy and subtotal resection on 12/05 at [facility]. After surgery, she improved temporarily, but then [...] CONSULT TO CARE MANAGEMENT IP CONSULT TO UROGYNAECOLOGIST SINGLE ENDING MACHINE OPERATOR IP CONSULT TO PHYSICAL MEDICINE & REHABILITATION [...] visit with Dr. Ivey, or his Physician's Mixed Animal Veterinarian, Eileen Tai, in approximately 3 months. These [...] Discharge information provided on 01/16/2022 Contact information: [facility], Acute Therapy Services [phone] documented in this encounter Medications at Time [...] (TEMODAR) Take 20 mg by mouth 0 04/202201/24/2022 20 mg capsule daily. TURMERIC ORAL [...] R.N. - 01/17/2022 9:22 AM CDT SUBJECTIVE coding analyst visited with patient regarding her dismissal questions. OBJECTIVE Patient sitting up in bedside chair. Patient alert, pleasant and engaged in conversation. Patient expressing difficulty understanding the dismissal options. ASSESSMENT / PLAN CHEMIST INTERNSHIPland reclamation specialist visited with patient regarding her questions with [...] the information. Patient contacted Libby via phone. land reclamation specialist introduced self and role to Libby. Advised [...] rehab and approvalfor insurance has been submitted. land reclamation specialist advised unsure where their process is at. [...] therapy time in comparison to inpatient rehab. land reclamation specialist advised will reach out to the team for more information and someone will return call to explain more about inpatient rehab. After leaving patient room, land reclamation specialist has learned patient's insurance has approved patient's admission to inpatient rehab. land reclamation specialist reached out to team, for request that someone speak to patient and patients mom about inpatient rehab. PLAN land reclamation specialist will continue to follow during hospitalization, assisting with a safe dismissal plan. Alberto Jiménez R.N. 01/17/22 Erika Alicea M.S., [facility]-GEOSPATIAL INFORMATION TECHNOLOGIST - 01/17/2022 9:15 AM CDT Speech Language [...] Primary Mode of Expression: Verbal Primary Language: Nepalese Open Ended Questions: 100% accuracy Conversation: Impaired [...] her mother on speakerphone about role of GEOSPATIAL INFORMATION TECHNOLOGIST services in addressing cognitive communication deficit in [...] Disorder: Moderate Plan Discharge Location: Inpatient rehab GEOSPATIAL INFORMATION TECHNOLOGIST Ongoing Services: Ongoing formal Speech Pathology services Duration of Treatment: inpatinet stay Rehab Potential: Good Electronically signed by Erika Alicea M.SSanjuanita, [facility]-GEOSPATIAL INFORMATION TECHNOLOGIST at 01/17/2022 12:10 PM CDT Michael De Los Santos M.D., Ph.D. - 01/17/2022 9:11 AM CDT Facility Information: [facility] Physical Medicine and Rehabilitation Pre-Admission Screening Patient Information Patient Name: Mia Richardson Address: [id number] [place] [id number] Sex: Female Date of : 1970 Age: 51 y.o. 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 Thepatient underwent a stereotactic biopsy of a left temporal region of hyperintensity in November at [facility]. The pathology apparently revealed IDH wild [...] for acute inpatient rehabilitation. She requires close subsorter oversight due to her complex medical condition [...] and non-sensical statements. Per chart,her mother from [place] has been living with her recently and she has 3 children ages 29, 23, 21. Patient mentioned having a boyfriend named Erich. Home Living Type of Home: House Home Living Comments: Patient responding to all questions, but tends to perseverate and is not a realiable historian as evidenced by inconsistencies in responses and non-sensical statements. Per chart,her mother from [place] has been living with her recently and she has 3 children ages 29, 23, 21. Patient mentioned having a boyfriend named Erich. Home Equipment Home Adaptive Equipment: None Prior Function Level of Runge: Independent with ADLs and functional transfers Receives [...] with family Patient/Caregiver Goals: Return to home. Runge with ADL and IADL tasks. Required Treatments and Services: Rehabilitation Physician, Rehabilitation Nursing, Physical Therapy, Occupational Therapy, Speech Therapy, Recreational Therapy, Jamb Cutter, Ticket Attendant, Rehabilitation Psychology, Bowel and Bladder Management, Water Plant Maintenance Mechanic, and Marina Sales And Service Supervisor Services Anticipated Services Upon Discharge Anticipated Interventions Anticipated Interventions: Physical Therapy, Occupational Therapy, Speech Therapy PT Projected Minutes/Day: 90 PT Projected Days/Week: 5 OT Projected Minutes/Day: 90 OT Projected Days/Week: 5 GEOSPATIAL INFORMATION TECHNOLOGIST Projected Minutes/Day: 30 GEOSPATIAL INFORMATION TECHNOLOGIST Projected Days/Week: 5 Rehabilitation nursing to manage: bowel and bladder function, medication management, patient / family goals, skin care, surgical incision, nutrition and fluid intake, pulmonary hygiene, pain control, safety Discharge Information Discharge information Projected Admission Date: 01/17/22 Barriers: Comorbidities Discharge Support: Family Estimated Length of Stay: 10 days Anticipated Discharge Destination: 01 - Home (private home/apartment, assisted living, long-term, transitional living) Anticipated Services Upon Discharge Anticipated Services Upon Discharge: Outpatient Therapy Learning Assessment Questions Primary Learner Name: Mia Relationship: Patient Does the primary learner have any barriers to learning?: Reading What is the preferred language of the primary learner for medical teaching?: Nepalese Is an electrical lineworker required?: No How does the primary learner prefer to learn new concepts?: Demonstration / Seeing, Doing, Listening Relationship: Patient Is an electrical lineworker required?: No Assessment answers provided by?: Patient Information Brochures Given: Data Collection Information Summary for Patients in Inpatient Rehabilitation Facilities, Brain Rehabilitation [id number], Inpatient Rehabilitation Programs [id number] Michael De Los Santos M.D., Ph.D. Madiha Castro M.D. - 01/17/2022 6:44 AM CDT 9-746 Mia Cedillo [birth year] 51F Glioma Resection [id number] - S/p left temporoparietal crani on 01/10 for resection of Grade 3 astrocytoma, IDH wildtype, MGMT unmethylated. Preop symptoms: lethargic, not oriented, significant pain, nausea, word-finding difficulties, likely seizure. Underwent biopsy and subtotal resection on 12/05 at [facility]. After surgery, she improved temporarily, but then [...] please page the Dr. Ivey service at [phone] Cici Hope RDN - 01/16/2022 3:49 PM [...] 97.7 kg (01/09/2022) Current Weight: 88.9 kg [place] Body Weight (Calculated) : 60.3 kg BMI [...] 97.7 kg Estimated Needs: Total Calorie Needs: 7307-6159 kcals calories/day Method to Estimate Energy Needs: [place] (75% to Basal) Weight Used for Equation [...] about patient's nutritional care please contact pager [phone] on weekdays or [phone] on weekends/holidays. Pradeep Marquez MDIV - 01/16/2022 3:35 PM CDT Encounter: Spiritual Care Contact Situation: Marina Sales And Service Supervisor visit following up from 01/14/22 winch truck operator visit. Mia declined visit and requested stop back a different day. I affirmed preference. Plan: Will remain available for spiritual care as needed or requested. Chaplains can be contacted bypaging [phone] ([place]) or [phone] ([place]). Sona Ma O.T., O.T.D. - 01/16/2022 3:04 PM CDT Occupational Therapy [facility] Inpatient Progress Note SUBJECTIVE [...] Date: 01/09/22 Patient/Caregiver Goals: Return to home. Runge with ADL and IADL tasks. Patient Comments: [...] for hospitalization. For hosptial name, she reported [facility], but then put [place] [facility]. With cueing, she was able to correct to [place] and accurately put [place] for state, improved from completion during previous date. Hilbert Test Hilbert Test is a symbol cancellation test that [...] dressing, Assistance with meal preparation, Assistance with patient financial representative, Assistance with transportation, Assistance with hous [...] Therapeutic exercise, Therapeutic modalities as needed, Orthosis [id number], Manual therapy Time Spent with Patient Therapeutic [...] 9-746 Mia Cedillo [birth year] 51F Glioma Resection [id number] - S/p left temporoparietal crani on 01/10 for resection of Grade 3 astrocytoma, IDH wildtype, MGMT unmethylated. Preop symptoms: lethargic, not oriented, significant pain, nausea, word-finding difficulties, likely seizure. Underwent biopsy and subtotal resection on 12/05 at [facility]. After surgery, she improved temporarily, but then [...] - 01/15/2022 2:18 PM CDT Occupational Therapy [facility] Inpatient Progress Note SUBJECTIVE [...] then with cues and times switched to [facility]. She put [facility] for [facility] and [facility] for [facility]. She appeared to be perseverating on [...] dressing, Assistance with meal preparation, Assistance with patient financial representative, Assistance with transportation, Assistance with hous [...] would like to pursue inpatient rehab at [place]. Reviewed insurance disclosure information Acute inpatient rehabilitation admission planned for 01/17/2022 pending insurance approval. Erika Alicea M.S., [facility]-GEOSPATIAL INFORMATION TECHNOLOGIST - 01/15/2022 10:20 AM CDT Speech Language [...] Primary Mode of Expression: Verbal Primary Language: Nepalese Open Ended Questions: 61-80% accuracy Conversation: Impaired [...] Disorder: Moderate Plan Discharge Location: Inpatient rehab GEOSPATIAL INFORMATION TECHNOLOGIST Ongoing Services: Ongoing formal Speech Pathology services [facility] Potential: Good Madiha Castro M.D. - 01/15/2022 7:01 AM CDT 9-746 Mia Cedillo [birth year] 51F Glioma Resection [id number] - S/p left temporoparietal crani on 01/10 for resection of Grade 3 astrocytoma, IDH wildtype, MGMT unmethylated. Preop symptoms: lethargic, not oriented, significant pain, nausea, word-finding difficulties, likely seizure. Underwent biopsy and subtotal resection on 12/05 at [facility]. After surgery, she improved temporarily, but then [...] will evaluate her today. She worked with PT/OT/GEOSPATIAL INFORMATION TECHNOLOGIST yesterday. - Pathology came back as: GBM, [...] please page the Dr. Ivey service at [phone] [place] Fortune PClayton. - 01/14/2022 2:55 PM CDT Physical Therapy [...] - 01/14/2022 11:50 AM CDT Occupational Therapy [facility] Inpatient Progress Note SUBJECTIVE Patient's Name: [...] dressing, Assistance with meal preparation, Assistance with patient financial representative, Assistance with transportation, Assistance with hous [...] biopsy and subtotal resection on 12/05 at [facility]. After surgery, she improved temporarily, but then [...] and green flashes in her right eye. Emmaalso described orange-red fading color line at the [...] Incision clean/dry/intact. - Na: 134-136 - Plan: PT/OT/GEOSPATIAL INFORMATION TECHNOLOGIST, decadron taper, Keppra 1 g BID, diet/mobilization as tolerated, pain management as needed (Toradol PRN is available). For questions or concerns, please page the Dr. Ivey service at [phone] Marie Caballero O.T. - 01/13/2022 12:42 PM [...] and the need for further assessment. M-LISET Bhutanese Version A Score: 10/30 Domain scores: Attention: 2/4 Memory: 7/14 Fluency: 0/7 Visuospatial: 1/5 [place]'s Cognitive Examination [...] dressing, Assistance with meal preparation, Assistance with patient financial representative, Assistance with transportation, Assistance with hous [...] Therapeutic functional activity, Neuromuscular re-education, Gait training SHELL COREMAKER Visit Trackin Time Spent with Patient Therapeutic Interventions Neuromuscular Re-Education (min): 17 min Time Tracking Total Timed Units (min): 17 min Total Treatment Time (min): 17 min Kylie Roca, P.T.A. RDT Madiha Castro M.D. - 01/13/2022 7:18 AM CDT 9-746 Mia Cedillo [birth year] 51F Glioma Resection [id number] - POD#3 s/p left temporoparietal crani for resection of Grade 3 astrocytoma, IDH wildtype, MGMT unmethylated. Preop symptoms: lethargic, not oriented, significant pain, nausea, word-finding difficulties, likely seizure. Underwent biopsy and subtotal resection on 12/05 at [facility]. After surgery, she improved temporarily, but then [...] with assistance. - Exam: oriented to self, [facility], and year, CN 2-12 grossly intact, follows commands in all extremities with intact sensation, no pronator drift. Incision clean/dry/intact. - Na: last night was 137 (up from 130 in the afternoon), morning sodium still pending. - Plan: continue trending sodium, encourage oral intake, PT/OT/GEOSPATIAL INFORMATION TECHNOLOGIST, decadron taper, Keppra 1 g BID. For questions or concerns, please page the Dr. Ivey service at [phone] Madiha Castro M.D. - 01/12/2022 7:06 AM CDT 8-998 Mia Cedillo [birth year] 51F Glioma Resection [id number] - POD#2 s/p left temporoparietal crani for resection of Grade 3 astrocytoma, IDH wildtype, MGMT unmethylated. Preop symptoms: lethargic, not oriented, significant pain, nausea, word-finding difficulties, likely seizure. Underwent biopsy and subtotal resection on 12/05 at [facility]. After surgery, she improved temporarily, but then [...] restrict fluids if necessary, advance diet, UCO, PT/OT/GEOSPATIAL INFORMATION TECHNOLOGIST, decadron taper, Keppra 1 g BID. Active Issues # Brain compression # Cerebral edema # Class 1 Obesity (BMI 30 to <35) ??? Malignant Neoplasm Of Brain (HCC) ??? Tumor Brain (HCC) For questions or concerns, please page the Dr. Ivey service at [phone] Erika Alicea M.S., [facility]-GEOSPATIAL INFORMATION TECHNOLOGIST - 01/11/2022 2:25 PM CDT Attempted to see patient both and morning and afternoon for GEOSPATIAL INFORMATION TECHNOLOGIST evaluation but patient was unable toawaken and demonstrate alertness necessary for examination. Madiha Castro M.D. - 01/11/2022 7:10 AM CDT 8-408 Mia Cedillo [birth year] 51F Glioma Resection [id number] - POD#1 s/p left temporoparietal crani for resection of Grade 3 astrocytoma, IDH wildtype, MGMT unmethylated. Preop symptoms: lethargic, not oriented, significant pain, nausea, word-finding difficulties, likely seizure. Underwent biopsy and subtotal resection on 12/05 at [facility]. After surgery, she improved temporarily, but then [...] please page the Dr. Ivey service at [phone] RDT Amber Bailey Pharm.D., R.Ph. - 01/10/2022 10:23 AM CDT Pharmacist Progress Note 51 y.o. female admitted for left temporoparietal sterotactic craniotomy OBJECTIVE Home medications: ??? Held: None ??? Changed: Dexmethasone Prophylaxis: None ASSESSMENT / PLAN Pharmacotherapy Recommendations: 1. Heparin for DVT prophylaxis after OR 2. Steroid plan Amber Bailey, Boris, [facility] [id number] RDT Madiha Castro M.D. - 01/10/2022 7:05 AM CDT 8-870 Mia Cedillo [birth year] 51F Glioma Resection [id number] - To OR today for left Grade 3 astrocytoma, IDH wildtype, MGMT unmethylated. Preop symptoms: lethargic, not oriented, significant pain, nausea, word-finding difficulties, likely seizure. Underwent biopsy and subtotal resection on 12/05 at [facility]. After surgery, she improved temporarily, but then [...] her poor exam, she was transferred to [facility] and given hypertonic saline. Most recent [...] please page the Dr. Ivey service at [phone] Rashida Jiang Pharm.D., R.Ph. - 01/09/2022 5:24 PM CDT Images from the original note were not included. Admission Medication History Note Adherence issues: No concerns Medication list source: Family member Medication related information: She has not started temozolomide. Prior to Admission Medications Med List Status: Pharmacy Complete Set By: Rashida North Pharm.DSanjuanita, R.Ph. at 01/09/2022 5:24 PM Taking? Last [...] y.o. 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 HISTORY OF PRESENT ILLNESS - PMH is largely unremarkable except for brief course of treatment with HCTZ for HTN in the past. - 11/29/2021 presented to [facility] with intermittent word-finding difficulty. She was [...] by Dr. Dunlap. Pathology was consistent with MANAGER INFORMATION WHO grade 3 astrocytoma, IDH wildtype, MGMT [...] week. She could state she was in [place], in her home. She could name ring [...] y.o. female who presents for evaluation of MANAGER INFORMATION WHO grade 3 astrocytoma, IDH wildtype by [...] classify this as a glioblastoma rather than MANAGER INFORMATION WHO grade 3 astrocytoma. We will need [...] be implemented if thisis pursued. I did international student counselor against use of antioxidants during radiation [...] Ms. Cedillo is a very pleasant 51-year-old, lkjbf-ugja-kcuzgkox woman with a medical history significant only for hypertension and obesity (BMI 31.1) who was enjoying her normal state of health until about a month ago (November 29, 2021) when she had the onset of intermittent difficulty finding her words.When she presented to the [place] [facility], she was noted to have bruising on her forehead, and a seizure was suspected. She was begun on Keppra, and MRI the following day (images which I viewed in QREADS) revealed a multifocal T1 hypointensive and T2 hyperintensive mass involving the left cerebellum, temporal lobe, parietal lobe, thalamus, and hippocampus. She proceeded to undergo a bi opsy at [facility] on December 05 with pathology consistent with a WHO grade 3 astrocytoma, wild type, and MGMT unmethylated. Following her biopsy she has continued to have difficulty with word finding and ultimately underwent a left temporoparietal stereotactic craniotomy for resection of the tumor which on postoperative MRI imaging appears to be complete. Ms. Cedillo was able to begin participating in an pit-xsu-ebhvg therapy program. She has done well but [...] but I believe it is outside of [place] and that she would have to ascend [...] basis, I proceeded to attempt a formal [facility] mental status examination and obtained the [...] Tone: Upper and lower extremities 0/0. Coordination: Mxakat-wj-gpow was -1/-1. Satellite maneuver showed the left [...] R.N. Referral Reason: Discharge Planning Primary Language: Nepalese Hybrid Technologist Services Used: No Person(s) present during interview: [...] Communication: Can write, Talks, Understands speaking, Understands Nepalese, Reads Shopping: Independent Transportation: Independent to drive [...] Self Care ASSESSMENT / PLAN Assessment: The land reclamation specialist met with Mia Richardson to discuss her current hospitalization and home going needs. The patient was unaccompanied. The patient was a reliable historian. The role of land reclamation specialist was reviewed. The patient reviewed her prior level of care and support system. The patient receivessupport from her mother and extended family. The patient described her living environment as a apartment without elevator access with level entry. Housekeeping, grocery shopping, meal prep, and other household responsibilities have previously been completed by patient. land reclamation specialist discussed the patient's potential needs at dismissal based ontheir home setting, previous needs and responsibilities, homebound status, and relevant assessments with the patient. The patient is yet to be determined be safe and supported to return home when medically ready, pending medical course. Support will be provided by Libby. The patient demonstrated understanding when discussing her home going plans and anticipated needs. land reclamation specialist met with patient in hospital room. Patient in agreement to meet at this time. Patient sitting up in bedside chair. Patient alert, pleasant, eyes closed and engaged in conversation related to baseline activity/home environment and support. land reclamation specialist and patient spoke of anticipated discharge when medically stable. Discussing vision impairments and anticipated support needed to ensure safety at discharge. Discussed early in recovery with unknown plan at this time. land reclamation specialist/patient discussed care management will follow along and [...] medical course and recommendations from PT/OT. Advised land reclamation specialist will follow along during hospitalization and assist as needed. land reclamation specialist reinforced if concerns or questions arise related to dismissal planning, to notify bedside nurse of request to speak with land reclamation specialist for assistance. Patient verbalized understanding and agreement, denying any concerns or questions at this time. At this time, the care team has not identified any skilled post-hospital discharge care needs that require the assistance of the Care Management Team. Dismissal plan to be determined, pending medical course. After reviewing the patient's chart and meeting with the patient, the land reclamation specialist deemed the LACE+/readmission questions were not necessary. [...] be provided by family--to be determined. 3. land reclamation specialist recommended a shower seat and grab bars. 4. land reclamation specialist provided information regarding the dismissal process. 5. land reclamation specialist placed or requested the following hospital-based consult orders and/or referrals:None. 6. land reclamation specialist will continue to assess for homegoing needs with the interdisciplinary team. 7. land reclamation specialist encouraged the patient to reach out with any questions/concerns. Signed by: Frankie Brown/23/2022 Emma Arora M.S., CCC-GEOSPATIAL INFORMATION TECHNOLOGIST - 01/14/2022 9:58 AM CDT Speech Language Pathology Communication/Cognitive Evaluation- Acute Care Session Type: Evaluation Length of session: 24 minutes SUBJECTIVE Referred By: [facility] Neurologic Surgery - [place] History: Ms. Cedillo is a right handed 51 y.o. female who was admitted to [facility] on 01/09/2022 left temporoparietal craniotomy for [...] Speech Voice: Within Normal Limits (WNL) Resonance (INFECTION CONTROL PREVENTIONIST Function): Within Normal Limits (WNL) Articulation: Within Normal Limits (WNL) Intelligibility: Intelligible Auditory Comprehension Yes/No Questions: Within Normal Limits (WNL) Commands: Impaired One Step Basic Commands: 3/3 Two Step Basic Commands: 2/3 Multistep Basic Commands: 1/3 Conversation Comprehension: Moderate Reading Comprehension Reading Status: Impaired Interfering Components: Attention Effective Techniques: Prescription glasses/contact lenses Verbal Expression Primary Mode of Expression: Verbal Primary Language: Nepalese Generative Naming/Word Fluency: 1-20% accuracy Open Ended [...] come back later Discharge Location: Inpatient rehab GEOSPATIAL INFORMATION TECHNOLOGIST Ongoing Services: Ongoing formal Speech Pathology services Duration of Treatment: [facility] stay Rehab Potential: Good Suman Zavaleta - 01/14/2022 9:00 AM CDTAssociated Order(s): IP CONSULT TO UROGYNAECOLOGIST SINGLE ENDING MACHINE OPERATOR Encounter: Follow up, spiritual care consult order [...] or requested. Chaplains can be contacted bypaging [phone] (Bakari) or [phone] (Ideals). Marie Caballero O.T. - 01/12/2022 1:57 PM CDT Occupational Therapy Acute Hospital Inpatient Evaluation/Treatment SUBJECTIVE Referring/Attending Provider: Charles Ivey M.D. Patient's Name: Mia Richardson Reason for Referral: OT eval and treat- brain Medical Diagnosis: 1. Tumor Brain (HCC) 2. Malignant Neoplasm Of Brain (HCC) 3. 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 Home Living Type of Home: House Home Living Comments: Patient responding to all questions, but tends to perseverate and is not a realiable historian as evidenced by inconsistencies in responses and non-sensical statements. Per chart,her mother from [place] has been living with her recently and [...] dressing, Assistance with meal preparation, Assistance with patient financial representative, Assistance with transportation, Assistance with hous [...] min Marie Caballero O.T. Chantal Maria P.T., AdrianP.Baljit., [facility] - 01/12/2022 1:03 PM CDT Physical Therapy Acute Hospital Inpatient Evaluation/Treatment SUBJECTIVE Referring/Attending Provider: Charles Ivey M.D. Patient's Name: Mia Richardson Reason for Referral: PT eval and treat- brain Medical Diagnosis: 1. Tumor Brain (HCC) 2. Malignant Neoplasm Of Brain (HCC) 3. Change Mental Status Payor: [employer] / Plan: [employer] [place] / Product Type: PPO / PERTINENT MEDICAL / SURGICAL HISTORY: Patient Active Problem List Diagnosis ??? Malignant Neoplasm Of Brain (HCC) ??? Tumor Brain (HCC) Past Surgical History: Procedure Laterality Date ??? CRANIOTOMY - STEREOTACTIC Left 01/10/2022 Procedure: Asleep left temporoparietal stereotactic craniotomy tumor resection, speech mapping, supine position, intraoperative MRI, BK ultrasound.; Surgeon: Charles Ivey M.D., Ph.D.; Location: [facility] OR ??? CRANIOTOMY FOR TUMOR Left [...] (min): 24 min Chantal Maria P.T., Pillo.P.TSanjuanita, NCS Hattie Tobar M.D., Ph.D. - 01/11/2022 3:15 PM CDT CHIEF COMPLAINT Poor mentation postoperatively HISTORY OF PRESENT ILLNESS Mia Richardson is a 51 y.o. female with a PMHx of hypertension and recent biopsy and subtotal resection on 12/05 at [facility] for grade 3 astrocytoma, IDH wildtype, MGMT [...] page the neuro critical care service pager [phone] for any questions or concerns regarding the [...] [place] [phone] if there are anyquestions or concerns. TOTAL [...] urgently for craniotomy. Significant Medical Comorbidities: # MANAGER INFORMATION WHO grade 3 astrocytoma, IDH wildtype by [...] (cardiac risk <5%) Cardiovascular history: - Previous LA: None - CABG: None - Stress tests: [...] do to headache, nausea and vomiting DIAGNOSTICS [facility] Labs: Age 50-60 - ECG only: Sinus bradycardia ASSESSMENT / PLAN Ms. Mia Richardson is a 51 y.o. female with a past medical history as below who was admitted to theneurologic surgery service for left temporoparietal stereotactic craniotomy astrocytoma resection. Medicine consults was consulted for BERNICE for procedure 01/09/2022 # MANAGER INFORMATION WHO grade 3 astrocytoma, IDH wildtype by [...] positioning, early mobilization, and cautious use of MANAGER INFORMATION-acting medications. -- Hematologic risk assessment Bleeding risk: [...] page the medicine consult service pager at [phone] if there are any questions or concerns. Marysol Martinez M.D. Internal Medicine Resident, PGY-3 [facility] Medicine Consults, service pager [phone] Charles Ivey M.D., Ph.D. - 01/09/2022 4:50 [...] temporal region of hyperintensity in November at [facility]. The pathology apparently revealed IDH wild [...] Ivey M.D., Ph.D. CT CT Job ID: [id number] documented in this encounter Nursing Notes Shilpa Burnette R.N. - 01/17/2022 11:50 AM CDT Shift Goals: Transfer to [facility] rehab today Identify possible barriers to meeting goals/advancing plan of care: confusion, impulsivity End of Shift Summary: Patient transferred to [facility]. Report given to JAMES Kirby. Ms. Cedillo has been tolerating a general diet, voiding, ambulating with SBA and reports good pain control. She continues to be impulsive and does need some direction with daily tasks. She answers questions but perseveratesin her speech. She is transferred by [facility] in a wheelchair with all of her [...] Right Radial (Active) Placement Date/Time: 01/10/22 (c 0842 Procedural Pause Completed: Yes Catheter Time Out [...] PRE-OPERATIVE DIAGNOSIS Glioblastoma. POST-OPERATIVE DIAGNOSIS Glioblastoma. A first aid officer actively participated and was necessary for one or more of the following: opening,exposure and visualization during the case, maintaining hemostasis, wound closure resulting in its safe and expeditious completion. SURGEON: Charles Ivey M.D., Ph.D. METALLURGICAL ENGINEERING TEACHER: Madiha Castro M.D. FELLOW: Johnathan Jones M.D., Ph.D. OPERATIVE NOTE NARRATIVE The patient was brought to operative room 216 at [facility] where appropriate venous and arterial access [...] full but not herniating. We used the [employer] navigation system as well as the ultrasound [...] and the images were transferred to the [employer] navigation system and merged with the original [...] Ivey M.D., Ph.D. CT CT Job ID: [id number] Brief Op Note - Madiha Castro M.D. [...] biopsy and subtotal resection on 12/05/2021 at [facility] for grade 3 astrocytoma, IDH wildtype, MGMT [...] biopsy and subtotal resection on 12/05 at [facility]. After surgery, she improved temporarily, but then [...] Clinical Genomics Sanya Mehta M.D. [address] [place] [phone] 05/06/2022 Clinical Communication Admitting/Central Scheduling 05/09/2022 Office Visit Oncology Farzana Allen M.D. [address] [place] [phone] 05/17/2022 Clinical Communication Admitting/Central Scheduling 05/21/2022 Lab Laboratory Medicine Vini Maki M.D., Ph.D. [address] [place] [phone] 05/21/2022 Appointment Radiology Vini Maki M.D., Ph.D. [address] [place] [phone] 05/21/2022 Office Visit Oncology Vini Maki M.D., Ph.D. [address] [place] [phone] 06/11/2022 Ancillary Procedure Ophthalmology Chas Shin M.D. [address] [place] [phone] 06/11/2022 Ancillary Procedure Ophthalmology Chas Shin M.D. [address] [place] [phone] 06/11/2022 Office Visit Ophthalmology Chas Shin M.D. [address] [place] [phone] documented as of this encounter Procedures Procedure [...] Organization Address City/State/ZIP Code Phon e Number [facility] - [address] [place], [place] [address] [facility] [place] [place] [address] Laboratories-[facility] [address] Head Neck [...] stenosis , aneurysm, or focal injury. The rincon of Callejas and its proximal branch vessels are patent witho ut evidence of significant stenosis or aneurysm. Codominant vertebral basilar system. The dural veno us sinuses are patent where visualized. Procedure Note oYlanda Fallon M.D. - 01/13/2022Formatt ing of this [...] stenosis , aneurysm, or focal injury. The rincon of [place] and its proximal branch vessels [...] stenosis , aneurysm, or focal injury. The rincon of [place] and its proximal branch vessels [...] stenosis , aneurysm, or focal injury. The rincon of [place] and its proximal branch vessels [...] Organization Address City/State/ZIP Code Phon e Number [facility] - [address] [place], [place] [address] [facility] [place] [address] Laboratories-[facility] [address] (ABNORMAL) Sodium (01/13/2022 6:44 AM CDT) athologist Signature Sodium, S 134 (L) 135 - 145 01/13/2022 DTL mmol/L 8:00 AM CDT Specimen Anatomical Collection Method Collection Time Receive d Time (Source) Location / / Volume Laterality Blood (Blood, 01/13/2022 6:44 AM 01/14/20 7:38 Venous) CDT AM CDT Madiha Castro M.D. LAB BLOOD ADD-ON Performing Organization Address City/State/[facility] Code Phon e Number [facility] - [address] [place], [place] [address] [place] [address] [facility] [address] [facility] Sodium (01/13/2022 12:19 AM CDT) athologist Signature Sodium, P 137 135 - 145 01/13/2022 1:07 DTL mmol/L AM CDT Specimen Anatomical Collection Method Collection Time Receive d Time (Source) Location / / Volume Laterality Blood (Blood, 01/13/2022 12:19 01/13/2022 Venous) AM CDT 12:35 AM CDT Madiha Castro M.D. LAB BLOOD ADD-ON Performing Organization Address City/[facility]/ZIP Code Phon e Number [facility] - [address] [place], [place] [address] [facility] [place] [address] [facility] [address] (ABNORMAL) Sodium (01/12/2022 4:17 PM CDT) athologist Signature Sodium, P 130 (L) 135 - 145 01/12/2022 [facility] mmol/L 4:37 PM CDT Specimen Anatomical Collection Method Collection Time Receive d Time (Source) Location / / Volume Laterality Blood (Blood, 01/12/2022 4:17 PM 01/13/20 4:25 Venous) CDT PM CDT Madiha Castro M.D. LAB BLOOD ADD-ON Performing Organization Address City/State/ZIP Code Phon e Number [facility] - [address] [place], [place] [address] [facility] [place] [address] [place] [address] [address] [facility] (ABNORMAL) Basic Metabolic Panel (01/12/2022 4:35 AM [...] 01/12/2022 DTL Black/ mL/min/BSA 5:21 AM CDT Bhutanese Comment: ----ADDITIONAL INFORMATION---- Estimated GFR calculated using [...] Organization Address City/State/ZIP Code Phon e Number [facility] - [address] [place], [place] [address] [facility] [place] [address] [facility] 200 [facility] (ABNORMAL) Basic Metabolic Panel (01/11/2022 8:54 PM [...] 01/11/2022 DTL Black/ mL/min/BSA 10:49 PM CDT Bhutanese Comment: ----ADDITIONAL INFORMATION---- Estimated GFR calculated using [...] Organization Address City/State/ZIP Code Phon e Number [facility] - [address] [place] [address] [facility] [place] [address] [facility] [address] EEG [...] 01/11/2022 DTL Black/ mL/min/BSA 8:15 AM CDT Bhutanese Comment: ----ADDITIONAL INFORMATION---- Estimated GFR calculated using [...] M.D. LAB BLOOD ADD-ON Performing Organization Address City/[facility] Code Phon e Number [facility] - [address] [place], [place] [id number] [place] [address] Sodium (01/10/2022 8:14 PM CDT) P athologist Signature Sodium, P 139 135 - 145 01/10/2022 8:30 STMA mmol/L PM CDT Specimen Anatomical Collection Method Collection Time Receive d Time (Source) Location / / Volume Laterality Blood (Blood, 01/10/2022 8:14 PM 01/11/20 8:20 Venous) CDT PM CDT Madiha Castro M.D. LAB BLOOD ADD-ON Performing Organization Address City/State/[facility] Code Phon e Number [facility] - [address] [place], [place] [address] [facility] [place] [address] [place] [address] Patient Status (01/10/2022 2:06 PM CDT) athologist Signature Temperature 36.0 37.0 deg C 01/10/2022 STMA 2:06 PM CDT FIO2 0.50 0.21=AIR 01/10/2022 [facility] 2:06 PM CDT Specimen Anatomical Collection Method Collection Time Receive d Time (Source) Location / / Volume Laterality Blood 01/10/2022 2:06 PM 2:06 CDT PM CDT Eileen Amezquita PROPERTY DISPOSAL MANAGER, GROUP SEGMENT CONSULTANT, MNA LAB BLOOD NON ADD-ON Performing Organization Address City/[facility]/ZIP Code Phon e Number [facility] - [address] [place], [place] [address] [place] [address] Glucose, Whole Blood (01/10/2022 2:06 PM CDT) athologist Signature Glucose 118 70 - 140 01/10/2022 2:10 STMA mg/dL PM CDT Specimen Anatomical Collection Method Collection Time Receive d Time (Source) Location / / Volume Laterality Blood (Blood, 01/10/2022 2:06 PM 01/11/20 2:06 Arterial Line) CDT PM CDT Ana Vaz M.D. LAB BLOOD TROPONIN Performing Organization Address City/[facility]/ZIP Code Phon e Number [facility] - [address] [place], [place] [address] [place] [address] Potassium, Blood (01/10/2022 2:06 PM CDT) athologist Signature Potassium, B 4.1 3.6 - 5.2 01/10/2022 [facility] mmol/L 2:10 PM CDT Specimen Anatomical Collection Method Collection Time Receive d Time (Source) Location / / Volume Laterality Blood (Blood, 01/10/2022 2:06 PM 01/11/20 2:06 Arterial Line) CDT PM CDT Ana Vaz M.D. LAB BLOOD NON ADD-ON Performing Organization Address City/State/ZIP Code Phon e Number [facility] - [address] [place], [place] [address] [place] [address] Sodium, B (01/10/2022 2:06 PM CDT) athologist Signature Sodium, B 138 135 - 145 01/10/2022 2:10 [facility] mmol/L PM CDT Specimen Anatomical Collection Method Collection Time Receive d Time (Source) Location / / Volume Laterality Blood (Blood, 01/10/2022 2:06 PM 01/11/20 2:06 Arterial Line) CDT PM CDT Ana Vaz M.D. LAB BLOOD NON ADD-ON Performing Organization Address City/[facility]/ZIP Code Phon e Number [facility] - [address] [place], [place] [address] [place] [address] Calcium, Ionized (01/10/2022 2:06 PM CDT) [...] Organization Address City/State/ZIP Code Phon e Number [facility] - [address] [place], [place] [address] [place] [address] (ABNORMAL) Blood Gas with Coox, Arterial [...] Organization Address City/State/ZIP Code Phon e Number [address] [address] [place] [address] [facility] [address] Sodium, B (01/10/2022 12:21 PM CDT) P athologist Signature Sodium, B CANCELED 135 - 145 01/10/2022 [facility] mmol/L 8:14 PM CDT Comment: REVISED RESULTS ----PREVIOUSLY REPORTED ---- 138, Flagged as: Normal (Reported 01/10/2022 12:24) Specimen Anatomical Collection Method Collection Time Receive d Time (Source) Location / / Volume Laterality Blood 01/10/2022 12:21 01/10/2022 PM CDT 12:21 PM CDT Narrative [facility] - 01/10/2022 8:14 PM CDT Sodium, B was cancelled on 01/10/2022 at 20:14; RBS update. Eileen Grupo Amezquita APRN, CRNA, MNA LAB BLOOD NON ADD-ON Performing Organization Address City/[facility]/ZIP [facility] Phon e Number [facility] - [address] [place], [place] [address] [place] [address] Patient Status (01/10/2022 12:21 PM CDT) athologist Signature FIO2 0.50 0.21=AIR 01/10/2022 12:21 [facility] PM CDT Specimen Anatomical Collection Method Collection Time Receive d Time (Source) Location / / Volume Laterality Blood 01/10/2022 12:21 01/10/2022 PM CDT 12:21 PM CDT Eileen Amezquita APRN, CRNA, YAREDA LAB BLOOD NON ADD-ON Performing Organization Address City/[facility] Phon e Number [facility] - [address] [place], [place] [address] [place] [address] Glucose, Whole Blood (01/10/2022 12:21 PM CDT) athologist Signature Glucose 136 70 - 140 01/10/2022 [facility] mg/dL 12:24 PM CDT Specimen Anatomical Collection Method Collection Time Receive d Time (Source) Location / / Volume Laterality Blood (Blood, 01/10/2022 12:21 01/10/2022 Arterial Line) PM CDT 12:21 PM CDT Ana Vaz M.D. LAB BLOOD TROPONIN Performing Organization Address City/[facility] Phon e Number [facility] - [address] [place], [place] [address] [place] [address] Potassium, Blood (01/10/2022 12:21 PM CDT) athologist Signature Potassium, B 3.8 3.6 - 5.2 01/10/2022 [facility] mmol/L 12:24 PM CDT Specimen Anatomical Collection Method Collection Time Receive d Time (Source) Location / / Volume Laterality Blood (Blood, 01/10/2022 12:21 01/10/2022 Arterial Line) PM CDT 12:21 PM CDT Ana Vaz M.D. LAB BLOOD NON ADD-ON Performing Organization Address City/[facility] Phon e Number [facility] - [address] [place] [address] [place] [address] Calcium, Ionized (01/10/2022 12:21 PM CDT) athologist Signature Calcium, 5.01 4.65 - 5.30 01/10/2022 [facility] Ionized, B mg/dL 12:24 PM CDT Specimen Anatomical Collection Method Collection Time Receive d Time (Source) Location / / Volume Laterality Blood (Blood, 01/10/2022 12:21 01/10/2022 Arterial Line) PM CDT 12:21 PM CDT Ana Vaz M.D. LAB BLOOD NON ADD-ON Performing Organization Address [facility] Phon e Number [facility] - [address] [place], [place] [phone] [address] (ABNORMAL) Blood Gas with Coox, Arterial (01/10/2022 12:21 PM CDT) athologist Signature pO2 143 (H) 83 - [...] Organization Address City/State/ZIP Code Phon e Number [facility] - [address] [place], [place] [address] [place] [address] [facility] [address] [facility] Surgical Pathology, Frozen Lab (01/10/2022 12:03 PM CDT) Component Value Ref Test Analysis Performed At [facility] Range Method Time Signature 01/14/2022 [facility] 5:24 PM CDT Participated in Luz WilsonS -Pathology Fellow 01/14/2022 [facility] the Lashon Talley M.D.-Pathology Resident 5:24 PM CDT Interpretation Liliam Burr M.D. -Pathology Resident Report Bryanna Sanchez M.D. 01/14/2022 [facility] electronically 5:24 PM CDT signed by I verify that I have examined all relevant slides/materials for the specimen(s) and rendered or confirmed the diagnosis. Seen in consultation with: Felisha Silveira M.D., Ph.D. Frozen A. ??Brain, left temporal lesion, smears: ??High-grade glioma. [facility] 5:24 PM CDT Report Signed by Bryanna Sanchez M.D. 01/10/2022 5:19 PM Gross Description A. ??Received fresh labeled left brain temporal lesion is 01/14/2022 [facility] a 5:24 PM CDT 5.9 x 5.3 x 2.8 cm portion of brain with extensive hemorrhage. ??Smears prepared. ??Cookie Breaker tissue submitted for permanent sections. ??A portion of tissue is collected for potential future ancillary studies. ??After clinical evaluation, residual tissue is procured for IRB [id number]. ??Grossed by Lashon Talley M.D.-Pathology Resident. B. ??Received fresh labeled left stereotactic tumor core is a 1.2 x 0.8 x 0.6 cm portion of brain. ??All submitted for permanent sections. ??Grossed by Don De La PazHSAMMI Esquivel([facility]). C. ??Received fresh labeled left temporal brain lesion is a 3 x 3 x 0.5 cm aggregate of brain tissue admixed with blood. All submitted for permanent sections. ??After clinical evaluation, residual tissue is procured for IRB [id number]. Grossed by Don JohnsonHSAMMI Esquivel([facility]). D. ??Received fresh within three CUSA traps labeled left temporal brain lesion cusa socks is a 6 x 6 x 1 cm aggregate of friable fragments of brain tissue admixed with blood. ??Cookie Breaker tissue submitted for permanent sections. ??After clinical evaluation, residual tissue is procured for IRB [id number]. ??Grossed by Don JohnsonHSAMMI Esquivel([facility]). Block Summary A Left brain [...] BRAF negative. 2:09 PM CDT Signed by Bryanan Sanchez M.D. 01/15/2022 2:09 PM Comment: REVISED RESULTS Interpretation FINAL DIAGNOSIS 01/15/2022 2:09 PM CDT [facility]. 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 See comment. COMMENT: ??The patient's history of left temporal-parietal mitotically-active infiltrating glioma status post biopsy on 12/06/2019 (reviewed at [facility], [id number]), is noted. The biopsy specimen lacked microvascular proliferation and tumor necrosis. By immunohistochemistry, the tumor cells were negative for IDH1-R132H and showed retained ATRX expression. 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 Specimen (Source) Anatomical Collection Method Collection Time Re ceived Time Location / / Volume Laterality Tissue (Brain, 01/10/2022 12:03 Left) PM CDT Comment: IRB #[id number] Tissue (Brain, Left) 01/10/2022 2:36 PM C DT Comment: IRB #[id number] Tissue (Brain, Left) 01/10/2022 2:57 PM C DT Comment: IRB #[id number] Tissue (Brain, Left) 01/10/2022 3:07 PM C DT Comment: IRB #[id number] Narrative This result has an attachment that is no t available. Charles Ivey M.D., Ph.D. LAB SURG PATH ORDERABLES Performing Organization Address City/State/ZIP Code Phon e Number [facility] - [address] [place], [place] [address] [place] [address] [facility] [address] Patient Status (01/10/2022 11:53 AM CDT) P athologist Signature FIO2 0.50 0.21=AIR 01/10/2022 11:53 STMA AM CDT Specimen Anatomical Collection Method Collection Time Receive d Time (Source) Location / / Volume Laterality Blood 01/10/2022 11:53 01/10/2022 AM CDT 11:53 AM CDT Eileen Amezquita PROPERTY DISPOSAL MANAGER, GROUP SEGMENT CONSULTANT, MNA LAB BLOOD NON ADD-ON Performing Organization Address City/[facility]/ZIP Code Phon e Number [facility] - [address] [place], [place] [address] [facility] [place] [address] [facility] [address] Glucose, Whole Blood (01/10/2022 11:53 AM CDT) P athologist Signature Glucose 135 70 - 140 01/10/2022 STMA mg/dL 11:55 AM CDT Specimen Anatomical Collection Method Collection Time Receive d Time (Source) Location / / Volume Laterality Blood (Blood, 01/10/2022 11:53 01/10/2022 Arterial Line) AM CDT 11:53 AM CDT Luda Galindo M.D. LAB BLOOD TROPONIN Performing Organization Address City/State/ZIP Code Phon e Number [facility] - [address] [place], [place] [address] [place] [address] [facility] [address] Potassium, Blood (01/10/2022 11:53 AM CDT) P athologist Signature Potassium, B 3.8 3.6 - 5.2 01/10/2022 STMA mmol/L 11:55 AM CDT Specimen Anatomical Collection Method Collection Time Receive d Time (Source) Location / / Volume Laterality Blood (Blood, 01/10/2022 11:53 01/10/2022 Arterial Line) AM CDT 11:53 AM CDT Luda Galindo M.D. LAB BLOOD NON ADD-ON Performing Organization Address City/State/ZIP Code Phon e Number [facility] - [address] [place], [place] [address] [place] [address] [facility] [address] Sodium, B (01/10/2022 11:53 AM CDT) P athologist Signature Sodium, B 137 135 - 145 01/10/2022 STMA mmol/L 11:55 AM CDT Specimen Anatomical Collection Method Collection Time Receive d Time (Source) Location / / Volume Laterality Blood (Blood, 01/10/2022 11:53 01/10/2022 Arterial Line) AM CDT 11:53 AM CDT Luda Galindo M.D. LAB BLOOD NON ADD-ON Performing Organization Address City/[facility] Phon e Number [facility] - [address] [place], [place] [address] [place] [address] Calcium, Ionized (01/10/2022 11:53 AM CDT) athologist Signature Calcium, 4.94 4.65 - 5.30 01/10/2022 STMA Ionized, B mg/dL 11:55 AM CDT Specimen Anatomical Collection Method Collection Time Receive d Time (Source) Location / / Volume Laterality Blood (Blood, 01/10/2022 11:53 01/10/2022 Arterial Line) AM CDT 11:53 AM CDT Luda Galindo M.D. LAB BLOOD NON ADD-ON Performing Organization Address City/[facility] Phon e Number [facility] - [address] [place], [place] [address] [place] [address] (ABNORMAL) Blood Gas with Coox, Arterial (01/10/2022 11:53 AM CDT) P athologist Signature pO2 148 (H) 83 - [...] LAB BLOOD NON ADD-ON Performing Organization Address City/[facility] Phon e Number [facility] - [id number] [place] [address] [address] [facility] Glucose, Whole Blood (01/10/2022 9:02 AM CDT) P athologist Signature Glucose 127 70 - 140 01/10/2022 9:04 STMA mg/dL AM CDT Specimen Anatomical Collection Method Collection Time Receive d Time (Source) Location / / Volume Laterality Blood (Blood, 01/10/2022 9:02 AM 01/11/20 9:02 Arterial Line) CDT AM CDT Ana Vaz M.D. LAB BLOOD TROPONIN Performing Organization Address City/[facility] Phon e Number [facility] - [address] [place], [place] [address] [place] [address] [facility] [address] [facility] Potassium, Blood (01/10/2022 9:02 AM CDT) P athologist Signature Potassium, B 4.1 3.6 - 5.2 01/10/2022 STMA mmol/L 9:04 AM CDT Specimen Anatomical Collection Method Collection Time Receive d Time (Source) Location / / Volume Laterality Blood (Blood, 01/10/2022 9:02 AM 01/11/20 9:02 Arterial Line) CDT AM CDT Ana Vaz M.D. LAB BLOOD NON ADD-ON Performing Organization Address City/[facility]/ZIP Code Phon e Number [facility] - [address] [place], [place] [address] [place] [address] (ABNORMAL) Sodium, B (01/10/2022 9:02 AM CDT) P athologist Signature Sodium, B 129 (L) 135 - 145 01/10/2022 STMA mmol/L 9:04 AM CDT Specimen Anatomical Collection Method Collection Time Receive d Time (Source) Location / / Volume Laterality Blood (Blood, 01/10/2022 9:02 AM 01/11/20 9:02 Arterial Line) CDT AM CDT Ana Vaz M.D. LAB BLOOD NON ADD-ON Performing Organization Address City/[facility]/ZIP Code Phon e Number [facility] - [address] [place], [place] [address] [place] [address] Calcium, Ionized (01/10/2022 9:02 AM CDT) P athologist Signature Calcium, 4.89 4.65 - 5.30 01/10/2022 STMA Ionized, B mg/dL 9:04 AM CDT Specimen Anatomical Collection Method Collection Time Receive d Time (Source) Location / / Volume Laterality Blood (Blood, 01/10/2022 9:02 AM 01/11/20 9:02 Arterial Line) CDT AM CDT Ana Vaz M.D. LAB BLOOD NON ADD-ON Performing Organization Address City/[facility]/ZIP Code Phon e Number [facility] - [address] [place], [place] [address] [place] [address] (ABNORMAL) Blood Gas with Coox, Arterial [...] Organization Address City/State/ZIP Code Phon e Number [facility] - [address] [place] [address] [place] [address] [facility] [address] [facility] Type and Screen (with reflex Antibody ID) (01/10/2022 8:55 AM CDT) [facility] Method Time Signature ABORh O Neg Not 01/10/2022 STRM applicable 9:48 AM CDT Antibody Negative Negative 01/10/2022 STRM Screen 9:59 AM CDT Type & Screen 01/13/2022 01/10/2022 STRM Expiration 23:59 9:48 AM CDT Testing [facility] DEFAULT 01/10/2022 STRM Location 9:04 AM CDT Specimen Anatomical Collection Method Collection Time Receive d Time (Source) Location / / Volume Laterality Blood (Blood, 01/10/2022 8:55 AM 01/11/20 9:04 Arterial Line) CDT AM CDT Resulting Agency Comment Drawn in [id number] by [email or web address] Ana Vaz M.D. LAB BLOOD BANK TEST ORDERABL ES Performing Organization Address City/[facility]/ZIP [facility] Phon e Number [facility] - [address] [place], [place] [address] [facility] [place] [address] (ABNORMAL) Sodium (01/10/2022 6:33 AM CDT) P athologist Signature Sodium, S 129 (L) 135 - 145 01/10/2022 DTL mmol/L 7:19 AM CDT Specimen Anatomical Collection Method Collection Time Receive d Time (Source) Location / / Volume Laterality Blood (Blood, 01/10/2022 6:33 AM 01/11/20 7:07 Venous) CDT AM CDT Madiha Castro M.D. LAB BLOOD ADD-ON Performing Organization Address City/[facility]/ZIP Code Phon e Number [facility] - [address] [place], [place] [address] [facility] [place] [address] [place] [address] [facility] (ABNORMAL) Sodium (01/10/2022 12:57 AM CDT) athologist Signature Sodium, S 130 (L) 135 - 145 01/10/2022 DTL mmol/L 1:43 AM CDT Specimen Anatomical Collection Method Collection Time Receive d Time (Source) Location / / Volume Laterality Blood (Blood, 01/10/2022 12:57 01/10/2022 1:26 Venous) AM CDT AM CDT Madiha Castro M.D. LAB BLOOD ADD-ON Performing Organization Address City/[facility]/ZIP Code Phon e Number [facility] - [address] [place], [place] [address] [facility] [place] [address] Osmolality, Urine (01/09/2022 9:35 PM CDT) athologist Signature Osmolality, U 707 150 - 1150 01/09/2022 DTL mOsm/kg 10:42 PM CDT Specimen Anatomical Collection Method Collection Time Receive d Time (Source) Location / / Volume Laterality Urine (Urine, 01/09/2022 9:35 PM 01/10/20 Catheter) CDT 10:12 PM CDT Madiha Castro M.D. LAB URINE ORDERABLES Performing Organization Address [facility] Phon e Number [facility] - [address] [place], [place] [address] [place] [address] Sodium, Random, Urine (01/09/2022 9:35 PM [...] M.D. LAB URINE ORDERABLES Performing Organization Address City/[facility] Phon e Number [facility] - [address] [place], [place] [address] [place] [address] (ABNORMAL) Basic Metabolic Panel (01/09/2022 8:01 [...] CDT eGFR-Black/Afr >90 >=60 01/09/2022 STMA ican Bhutanese mL/min/BSA 8:26 PM CDT Comment: ----ADDITIONAL INFORMATION---- [...] Laterality Blood (Blood, 01/09/2022 8:01 PM 01/10/20 22 8:09 Venous) CDT PM CDT Madiha Castro M.D. LAB BLOOD ADD-ON Performing Organization Address City/State/ZIP Code Phon e Number [facility] - [address] [place], [place] [address] [place] [address] [facility] [address] [facility] SARS Coronavirus 2, RNA, Rapid POC, V Asymptomatic (01/09/2022 7:24 PM CDT) [facility] Method Time Signature SARS Undetected Undetected 01/09/2022 DTLR Coronavirus-2 7:47 PM CDT , RNA, Rapid POC, V Comment: Negative for SARS-CoV-2. The [employer] COVID-19 test is a molecular watson t for SARS-CoV-2, the virus that causes COVID- 19. A Negative result means that the [employer] COV ID-19 test did not detect SARS-CoV-2 virus in your sample. Cue COVID-19 test uses the [employer] System. This test has received Emergency Use Authorization (EUA) by the U.S. Food and Drug Administration (FDA) and is used per man ufacturer instructions. Performance characteristic s were verified by [facility] in a manner consistent with CLIA requirements. Fact sheets for this Emerg ency Use Authorization (EUA) can be found at the following links: Providers: [email or web address]/prov iders.pdf Patients: [email or web address]/documentation/tylor ents.pdf SARS Coronavirus 2, Source Nasopharynx DEFAULT 01/09/2022 7:47 PM CDT DTLR Specimen Anatomical Collection Method Collection Time Receive d Time (Source) Location / / Volume Laterality Varies 01/09/2022 7:24 PM 7:24 (Nasopharynx) CDT PM CDT Christina Tai P.A.-C., M.S. LAB MICROBIOLOGY - GENERAL ORDERABLES Performing Organization Address City/State/[facility] Code Phon e Number PERFORMING LABS, REF [facility] [place] [address] INTERFACE Ref Interface [address] [facility] DTLR Performing Labs, [place] [address] Interface [address] [facility] (ABNORMAL) CBC without Differential (01/09/2022 6:05 PM CDT) [employer] gist Method Time Signature Hemoglobin 12.2 11.6 [...] M.S. LAB BLOOD ADD-ON Performing Organization Address City/[facility]/ZIP Code Phon e Number [facility] - [address] [place], [place] [address] [place] [address] Laboratories-[address] Hemoglobin A1c (01/09/2022 5:58 PM CDT) athologist Signature Hemoglobin A1c, 5.1 4.0 - 5.6 01/09/2022 DT B % 7:58 PM CDT Specimen Anatomical Collection Method Collection Time Receive d Time (Source) Location / / Volume Laterality Blood (Blood, 01/09/2022 5:58 PM 01/10/20 22 7:40 Venous) CDT PM CDT Marysol Martinez M.D. LAB BLOOD ADD-ON Performing Organization Address City/[facility] Code Phon e Number [facility] - [address] [place], [place] [address] [place], [place] [id number] [place] [address] ECG 12 Lead (01/09/2022 4:44 PM CDT) athologist Signature Ventricular Rate 54 BPM MUSE ECG/Min [place] Interval 138 ms MUSE QRSD Interval 86 ms MUSE QT Interval 424 ms MUSE QTC Interval 402 ms MUSE P [place] 27 degrees MUSE R [place] 44 degrees MUSE T Wave [place] 54 degrees MUSE Specimen Anatomical Collection Method [...] Fri01/10/22 at 195, Ordered sequence of administration: polyethylene glycol, then bisacodyl until BM achieved. bupivacaine-EPINEPHrine [...] muscle spasms, Starting on 01/12/22 at 0922 microfibrillar collagen hemostat Given 01/10/2022 11:20 AM CDT 1 application powder (AVITENE FLOUR) As needed, Starting on Bee 01/10/22 at 1120, Intra-Op naloxone injection 0.2 mg [...] CDT 1 g As needed, Starting on Fri01/10/22 at 1619, Intra-Op documented in this encounter Active and Recently Administered Medications Times are shown in CDT. Scheduled Medication Order 01/15/2022 01/16/2022 01/17/2022 acetaminophen tablet 1,000 mg (TYLENOL) 0034 (Given - Provider: Maggie Garces RSanjuanitaN.)0525 (Given - Provider: Maggie Garces R.N.)1234 (Given - Provider: Shilpa Burnette R.N.)1709 (Given - Provider: Amelie Gayle R.N.) 0100 [...] 0 525 (Given - Provider: Maggie Garces RSanjuanitaNSanjuanita)0952 (Given - Provider: Shilpa Burnette R.N.)1648 (Given - Provider: Tutu StallingsNSanjuanita)2140 (Given - Provider: Amelie Gayle R.N.) 0334 (Given - Provider: Luda ramesh R.N.)0902 (Given - Provider: Shilpa Burnette R.N.)1647 (Given - Provider: Hattie Baldwin RSanjuanitaNSanjuanita)2137 (Given - Provider: Hattie Baldwin RSanjuanitaN.) 0402 (Given - Provider: Beryl Orozco RSanjuanitaNSanjuanita)0911 (Given - Provider: Shilpa Burnette RSanjuanitaNSanjuanita) 3 mg, oral, Every 6 hours, First dose on Fri01/15/22 at 0430, Fo r 4 days levETIRAcetam tablet 1,000 mg (KEPPRA) 0952 (Given - P rovider: Tutu QuinteroNSanjuanita)2140 (Given - Provider: Tutu StallingsNSanjuanita) 0901 (Given - Provider: Tutu QuinteroNSanjuanita)2138 (Given - Provider: Hattie Baldwin R.N.) 0911 (Given - Provider: Tutu QuinteroNSanjuanita) 1,000 mg, oral, 2 times daily, First dose on Fri01/12/[address] tablet 40 mg (PROTONIX) 0616 (Given - Provider: Maggie Garces RSanjuanitaNSanjuanita) 0607 (Given - Provider: Luda Yu R.N.) 06 (Given - Provider: Beryl Orozco R.N.) 40 mg, oral, Daily before breakfast, [...] of 10, Starting on Bee 01/10/22 at 1951 polyethylene glycol powder packet 17 [...]
--- OUTSIDE RECORDS SUMMARY | 2022-04-10 09:44 | XMS_ITS | Encounter Summary ---
:1970 Author Organization [facility] Address [address] [place] [address] Care Team Providers Name Role Phone Unavailable Primary Care Provider Unavailable Reason for Visit Auth/Cert Specialty Diagnoses / Procedures Referred By Contact Refer red To Contact Diagnoses Malignant Neoplasm Of Brain (HCC) Procedures DE CRANIOT SUBDURAL IMPL ELECTRODE DE MAPPING CORTICAL INITIAL HR Awake left temporoparietal stereotactic craniotomy tumor resection, speech mapping, intraop MRI, supine position. Referral ID Status Reason Start Date Expiration Date Visits Requ ested Visits Authorized [id number] 1 1 Encounter Details Date Type Department Care Team Description 01/10/2022 Anesthesia Event RST ROMB MAIN OR Michael Tanner M.D., M.S. [address] [place] [phone] [address] [facility] Luda Galindo M.D. [address] [place] [phone] [place] [address] Anesthesia Record Procedure Summary [...] h andoff to the receiving staff during [employer] ch we 1. Identified the patient 2. [...] Mckoy Slivins[place] i, Michael Type: Latex, Triple-lumen TECHNICAL TRAINING MANAGER V., R. N. (Original order for 3-way); Size: 20 Fr.; Balloon Size: 30 mL; Urine Returned: Yes; Removal Date: 01/12/22; Removal Time: 1214; Removal Reason: Per order ETT Placement Date: 01/10/22; 01/10/22821 by 01/10 by Placement Time: 821 Nicholas Higuera Hanson, Amy M, (created via procedure SCIENTIFIC TECHNICAL WRITER, MOTHER SUPERIOR SCIENTIFIC TECHNICAL WRITER, CRN A, DNAP documentation); Mask Ventilation: Easy [...] Do, Anna J, R.N. (created via procedure SCIENTIFIC TECHNICAL WRITER, MOTHER SUPERIOR documentation); Size: 20 G; Orientation: Right; Location: [...] have completed or the highest Maulik, MEd, MOCCASIN SEWER, MOISE) degree you have received? Sex Assigned at Date Recorded Female 01/07/2022 11:11 AM CDT documented as of this encounter OR Notes Anesthesia Postprocedure Evaluation - Karen Prakash M.D. - 01/10/2022 6:44 PM CDT Patient: Mia Richardson Procedure Summary Date: 01/10/22 Room / Location: [address] / [facility] in [place], [place] Anesthesia Start: 808 Anesthesia Stop: 1809 [...] euvolemic Anesthesia Procedure Notes - Nicholas Higuera, SCIENTIFIC TECHNICAL WRITER, MOTHER SUPERIOR - 01/10/2022 9:49 AM CDTAssociated Order(s): Airway [...] ETT location: oral VL device: glide scope [place] scope blade size: 3 Adult tube size: [...] diagnosis: Malignant Neoplasm Brain (HCC) [C71.9]. Location: [address] / [facility] in [place], [place] Providers: Charles Ivey M.D., Ph.D. Pertinent components of the patient's history including current problem list, medical history, surgical history, family history, social history, medications and allergies were reviewed. Present illnessand pre-op diagnosis were confirmed. The planned surgery / procedure was verified with the patient /legal guardian. The patient's general health condition remains [...] Telemedicine Clinical [employer] Sanya Mehta M.D. [address] [place] [phone] 05/06/2022 Clinical Communication Admitting/Central Scheduling 05/09/2022 Office Visit Oncology Farzana Allen M.D. [address] [place] [phone] 05/17/2022 Clinical Communication Admitting/Central Scheduling 05/21/2022 Lab Laboratory Medicine Vini Maki M.D., Ph.D. [address] [place] [phone] 05/21/2022 Appointment Radiology Vini Maki M.D., Ph.D. [address] [place] [phone] 05/21/2022 Office Visit Oncology Viin Maki M.D., Ph.D. [address] [place] [phone] 06/11/2022 Ancillary Procedure Ophthalmology Chas Shin M.D. [address] [place] [phone] 06/11/2022 Ancillary Procedure Ophthalmology Chas Shin M.D. [address] [place] [phone] 06/11/2022 Office Visit Ophthalmology Chas Shin M.D. [address] [place] [phone] documented as of this encounter Procedures Procedure Name Priority Date/Time Associated Comments Diagnosis LDA ANE ARTERIAL LINE Routine 01/10/2022 8:42 AM Results for this INSERTION CDT procedure are i n the results section. DE ARTL CATH/CNULA Routine 01/10/2022 8:42 AM Res ults for this MONITOR PERC CDT procedure are i n the results section. LDA ANE ENDOTRACHEAL Routine 01/10/2022 8:22 AM R esults for this AIRWAY CDT procedure are i n the results section. documented in this encounter Results DE ARTL CATH/CNULA MONITOR PERC, LDA ANE ARTERIAL [...] ETT location: oral VL device: glide scope [place] scope blade size: 3 Adult tube size: [...] levETIRAcetam in NaCl (iso-os) IVPB 1,000 Given 01/10/2022 9 :20 AM CDT 1,000 mg mg (KEPPRA) 1,000 [...] 80 Rate/Dose Change 01/10/2022 2:00 0.2 mcg/kg/min 14.6 55 mL/hr mcg/mL in NaCl 0.9% PM CDT [...]
--- OUTSIDE RECORDS SUMMARY | 2022-04-10 09:44 | XMS_ITS | Encounter Summary ---
:1970 Author Organization [facility] Address [address] [place] [address] Care Team Providers Name Role Phone Unavailable Primary Care Provider Unavailable Reason for Visit Reason Comments Pre-visit Testing Orders Encounter Details Date Type Department Care Team Description 12/31/2021 Clinical Department of Rebeca Valle Pre-visit Baljit palomo Communication Oncology in Neo Amado., M.S. Orders [place], [facility] [address] [place], [place] [address] [place] [phone] [place], [place] [phone] (Work) [phone] Social History Tobacco Use Types Packs/Day Years [...] or slept in a mcc (including now)? Sex Assigned at Date Recorded Female 01/07/2022 11:11 AM CDT documented as of this encounter Miscellaneous Notes Telephone Encounter - Mary Pillai - 12/31/2021 4:39 PM CDT New Reg Path Order-New Reg Orders Note: We have needed to change how we input orders. Providers will need to open the encounter and inthe right corner you will be able to review and sign. Thank you for your assistance! -Jennifer Rivera documented in this encounter Plan of Treatment Upcoming Encounters Date Type Specialty Care Team Description 05/03/2022 Telemedicine Clinical Genomics Sanya Mehta M.D. [address] [place] [phone] 05/06/2022 Clinical Communication Admitting/Central Scheduling 05/09/2022 Office Visit Oncology Farzana Allen M.D. [address] [place] [phone] 05/17/2022 Clinical Communication Admitting/Central Scheduling 05/21/2022 Lab Laboratory Medicine Vini Maki M.D., Ph.D. [address] [place] [phone] 05/21/2022 Appointment Radiology Vini Maki M.D., Ph.D. [address] [place] [phone] 05/21/2022 Office Visit Oncology Vini Maki M.D., Ph.D. [address] [place] [phone] 06/11/2022 Ancillary Procedure Ophthalmology Chas Shin M.D. [address] [place] [phone] 06/11/2022 Ancillary Procedure Ophthalmology Chas Shin M.D. [address] [place] [phone] 06/11/2022 Office Visit Ophthalmology Chas Shin M.D. [address] [place] [phone] documented as of this encounter Results Pathology Review of Outside [...] assessment of the case. Material Received A. [id number]: Brain, left mass 01/03/2022 DTL ? 3 stained slides 10:27 AM CDT Interpretation PRELIMINARY DIAGNOSIS 01/03/2022 DT L 10:27 AM Brain, left temporal-parietal, biopsy and excision CDT ([id number]; 12/05/2021): Mitotically-active infiltrating glioma. See comment. COMMENT A Final Integrated Diagnosis corresponding to the 2020 WHO Classification of TOURIST HOME KEEPER Tumors will be reported subsequently, following receipt of results of next generation sequencing studies being performed by the referring institution. This mitotically-active glioma exhibits appreciable nuclear atypia, favoring astrocytic morphology, and demonstrable mitotic activity in this biopsy sampling (reaching 3 mitoses in 10 high powered garcia) in the absence of microvascular proliferation or necrosis, histologically suggestive of a higher-grade (at least TOURIST HOME KEEPER WHO grade 3) designation on a preliminary [...] report. Per report, outside MGMT promoter studies ([facility]) resulted NEGATIVE for MGMT promoter methylation. Specimen Anatomical Collection Method Collection Time Receive d Time (Source) Location / / Volume Laterality Varies 12/05/2021 3:19 PM 2 CDT 12:17 PM CDT Narrative This result has an attachment that is no t available. Rebeca Valle P.A.-C., M.S. 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
--- OUTSIDE RECORDS SUMMARY | 2022-04-10 09:44 | XMS_ITS | Encounter Summary ---
:1970 Author Organization [facility] Address [address] [place] [address] Care Team Providers Name Role Phone Unavailable Primary Care Provider Unavailable Reason for Visit Outpatient (Routine) - Closed Specialty Diagnoses / Procedures Referred By Contact Refer red To Contact Neurological Surgery Diagnoses Mass Brain Evangelist Salinas M.D., [facility] Ph.D. [address] [place] [address] Referral ID Status Reason Start Date Expiration Date Visits Requ ested Visits Authorized [id number] Closed 01/01/2022 01/01/2023 1 1 Encounter Details Date Type Department Care Team Description 01/09/2022 Comprehensive Visit Department of Ivey, Charles Ojeda Ma ss Brain Neurologic Surgery in MEleazar, Ph.D . [address] [place] [phone] Social History Tobacco Use Types Packs/Day Years [...] 01/07/2022 organizations such as hoahaoism groups, unions, [employer] or athletic groups, or school groups? How [...] have completed or the highest Maulik, MEd, PATIENT SERVICE ASSOCIATE, MOISE) degree you have received? Sex Assigned at Date Recorded Female 01/07/2022 11:11 AM CDT documented as of this encounter Progress Notes Charles Ivey M.D., Ph.D. - 01/09/2022 4:30 PM CDT Please see dictated consultation note from 01/09/2022. documented in this encounter Plan of Treatment Upcoming Encounters Date Type Specialty Care Team Description 05/03/2022 Telemedicine Clinical Genomics Sanya Mehta M.D. 200 [place] [phone] 05/06/2022 Clinical Communication Admitting/Central Scheduling 05/09/2022 Office Visit Oncology Farzana Allen M.D. [address] [place] [phone] 05/17/2022 Clinical Communication Admitting/Central Scheduling 05/21/2022 Lab Laboratory Medicine Vini Maki M.D., Ph.D. [address] [place] [phone] 05/21/2022 Appointment Radiology Vini Maki M.D., Ph.D. [address] [place] [phone] 05/21/2022 Office Visit Oncology Vini Maki M.D., Ph.D. [address] [place] [phone] 06/11/2022 Ancillary Procedure Ophthalmology Chas Shin M.D. [address] [place] [phone] 06/11/2022 Ancillary Procedure Ophthalmology Chas Shin M.D. [address] [place] [phone] 06/11/2022 Office Visit Ophthalmology Chas Shin M.D. [address] [place] [phone] documented as of this encounter Visit Diagnoses Diagnosis Mass Brain documented in this encounter
--- OUTSIDE RECORDS SUMMARY | 2022-04-10 09:44 | XMS_ITS | Encounter Summary ---
:1970 Author Organization [facility] Address [address] [place] [address] Care Team Providers Name Role Phone Unavailable Primary Care Provider Unavailable Reason for Visit Reason Comments Phone call Encounter Details Date Type Department Care Team Description 01/09/2022 Clinical Communication Department of Oncology Olivia Sanchez Phone call in [facility], HenryPSanjuanita, M.A.[facility], [facility] 200 [facility] 200 [place] [phone] Social History Tobacco Use Types Packs/Day Years [...] have completed or the highest Maulik, MEd, HOB GRINDER, MOISE) degree you have received? Sex Assigned [...] [facility]. Conferred with Rebeca Valle PA-C and we were able to [facility]. Ms Cedillo also [...] Telemedicine Clinical Genomics Sanya Mehta M.D. [address] [place] [phone] 05/06/2022 Clinical Communication Admitting/Central Scheduling 05/09/2022 Office Visit Oncology Farzana Allen M.D. [address] [place] [phone] 05/17/2022 Clinical Communication Admitting/Central Scheduling 05/21/2022 Lab Laboratory Medicine Vini Maki M.D., Ph.D. [address] [place] [address] [phone] 05/21/2022 Appointment Radiology Vini Maki M.D., Ph.D. [address] [place] [phone] 05/21/2022 Office Visit Oncology Vini Maki M.D., Ph.D. [address] [place] [address] [phone] 06/11/2022 Ancillary Procedure Ophthalmology Chas Shin M.D. [address] [place] [address] [phone] 06/11/2022 Ancillary Procedure Ophthalmology Chas Shin M.D. [address] [place] [phone] 06/11/2022 Office Visit Ophthalmology Chas Shin M.D. [address] [place] [phone] documented as of this encounter Visit Diagnoses Not on filedocumented in this encounter
--- OUTSIDE RECORDS SUMMARY | 2022-04-10 09:44 | XMS_ITS | Encounter Summary ---
:1970 Author Organization [facility] Address [address] [place] [address] Care Team Providers Name Role Phone Unavailable Primary Care Provider Unavailable Reason for Referral Radiation Therapy (Routine) - Authorized Specialty Diagnoses / Procedures Referred By Contact Refer red To Contact Diagnoses Malignant Neoplasm Of Brain (HCC) Stephanie Gleason M.D. [facility] Radiation Oncology Procedures Management Visit [address] [facility] [place], [place] [phone] [address] [place] [phone] Referral ID Status Reason Start Date Expiration Date Visits V isits Requested Authorized [id number] Authorized 12/31/2021 12/31/2022 10 10 Radiation Therapy (Routine) - Closed Specialty Diagnoses / Procedures Referred By Contact Refer red To Contact Diagnoses Malignant Neoplasm Of Brain (HCC) Stephanie Gleason M.D. [facility] Radiation Oncology Procedures Prior Auth Rad Tx ND IMRT COMPLEX [address] [place], [place] [phone] [address] [place] [address] Referral ID Status Reason Start Date Expiration Date Visits Requ ested Visits Authorized [id number] Closed 01/31/2022 12/31/2022 30 30 Radiation Therapy (Routine) - Closed Specialty Diagnoses / Procedures Referred By Contact Refer red To Contact Diagnoses Malignant Neoplasm Of Brain (HCC) Stephanie Gleason M.D. [facility] Procedures Initial Rad Onc Treatment Planning CT Simulation [address] [place] [phone] Referral ID Status Reason Start Date Expiration Date Visits Requ ested Visits Authorized [id number] Closed 12/31/2021 12/31/2022 1 1 Encounter Details Date Type Department Care Team Description 12/31/2021 Orders Only Department of Burak, Cliff C, Malignant N eoplasm Of Radiation Oncology in [place], M.S. Brain (HCC) (Primary [place], [place] [address] [facility] Dx) [address] [place] [address] [phone] Social History Tobacco Use Types Packs/Day Years [...] Telemedicine Clinical Genomics Sanya Mehta M.D. [address] [place] [address] [phone] 05/06/2022 Clinical Communication Admitting/Central Scheduling 05/09/2022 Office Visit Oncology Farzana Allen M.D. [address] [place] [address] [phone] 05/17/2022 Clinical Communication Admitting/Central Scheduling 05/21/2022 Lab Laboratory Medicine Vini Maki M.D., Ph.D. [address] [place] [address] [phone] 05/21/2022 Appointment Radiology Vini Maki M.D., Ph.D. [address] [place] [address] [phone] 05/21/2022 Office Visit Oncology Vini Maki M.D., Ph.D. [address] [place] [address] [phone] 06/11/2022 Ancillary Procedure Ophthalmology Chas Shin M.D. [address] [place] [address] [phone] 06/11/2022 Ancillary Procedure Ophthalmology Chas Shin M.D. [address] [place] [phone] 06/11/2022 Office Visit Ophthalmology Chas Shin M.D. [address] [place] [phone] Scheduled Orders Name Type Priority Associated Order [...] Organization Address City/State/ZIP Code Phon e Number [facility] na documented in this encounter Visit Diagnoses Diagnosis Malignant Neoplasm Of Brain (HCC) - Prim uyen Malignant Neoplasm Of Brain (HCC) documented in this encounter Additional Health Concerns Infection Onset Date Last Indicated Resolved Time COVID19 Pending 01/09/2022 01/09/2022 01/09/2022 7:47 PM CDT documented as of this encounter
--- OUTSIDE RECORDS SUMMARY | 2022-04-10 09:44 | XMS_ITS | Encounter Summary ---
:1970 Author Organization [facility] Address [address] [place] [address] Care Team Providers Name Role Phone Unavailable Primary Care Provider Unavailable Reason for Referral Outpatient (Routine) - Closed Specialty Diagnoses / Procedures Referred By Contact Refer red To Contact Oncology Rebeca Valle P .A.-C., M.S. [facility] [address] [place] [phone] Referral ID Status Reason Start Date Expiration Date Visits Requ ested Visits Authorized [id number] Closed 01/09/2022 01/09/2023 1 1 Encounter Details Date Type Department Care Team Description 01/09/2022 Orders Only Department of Oncology in [place], [place] Dionicio, M.A., R.N., [address] [place] [address] [place] [phone] [phone] [place] [address] [place] [phone] Social History Tobacco Use Types Packs/Day Years [...] have completed or the highest Maulik, MEd, SAND SCREENER, MOISE) degree you have received? Sex Assigned at Date Recorded Female 01/07/2022 11:11 AM CDT documented as of this encounter Plan of Treatment Upcoming Encounters Date Type Specialty Care Team Description 05/03/2022 Telemedicine Clinical Genomics Sanya Mehta M.D. 200 [place] [phone] 05/06/2022 Clinical Communication Admitting/Central Scheduling 05/09/2022 Office Visit Oncology Farzana Allen M.D. 200 [place] [phone] 05/17/2022 Clinical Communication Admitting/Central Scheduling 05/21/2022 Lab Laboratory Medicine Vini Maki M.D., Ph.D. [address] [place] [address] [phone] 05/21/2022 Appointment Radiology Vini Maki M.D., Ph.D. [address] [place] [address] [phone] 05/21/2022 Office Visit Oncology Vini Maki M.D., Ph.D. [address] [place] [phone] 06/11/2022 Ancillary Procedure Ophthalmology Chas hSin M.D. [address] [place] [phone] 06/11/2022 Ancillary Procedure Ophthalmology Chas Shin M.D. [address] [place] [address] [phone] 06/11/2022 Office Visit Ophthalmology Chas Shin M.D. [address] [place] [phone] Scheduled Referrals Name Type Priority Associated Diagnoses Order [facility] On[facility] office Outpatient Referral Routine Expec anayeli: visit (clinic) 01/09/2022, Surveillance; Expires: Brain 04/11/2023 documented as of this encounter Visit Diagnoses Not on filedocumented in this encounter
--- OUTSIDE RECORDS SUMMARY | 2022-04-10 09:44 | XMS_ITS | Encounter Summary ---
:1970 Author Organization [facility] Address [address] [place] [address] Care Team Providers Name Role Phone Unavailable Primary Care Provider Unavailable Reason for Referral Outpatient (Routine) - Closed Specialty Diagnoses / Procedures Referred By Contact Gina red To Contact Oncology Karthikeyan Cedeno M.D. [facility] [address] [place] [phone] Referral ID Status Reason Start Date Expiration Date Visits Requ ested Visits Authorized [id number] Closed 01/03/2022 01/03/2023 1 1 utpatient (Routine) - Closed Specialty Diagnoses / Procedures Referred By Contact Gina red To Contact Medical Oncology / Diagnoses Astrocytoma (HCC) Karthikeyan Cedeno M.D. [facility] Oncology [address] [place] [phone] Referral ID Status Reason Start Date Expiration Date Visits Requ ested Visits Authorized [id number] Closed 01/03/2022 01/03/2023 1 1 Reason for Visit Appointment Request (Routine) - Closed Specialty Diagnoses / Procedures Referred By Contact Gina red To Contact Oncology Diagnoses Astrocytoma Anaplastic (HCC) Referral ID Status Reason Start Date Expiration Date Visits Requ ested Visits Authorized [id number] Closed 12/26/2021 12/26/2022 1 1 Encounter Details Date Type Department Care Team Description 01/03/2022 Telemedicine Department of Oncology Karthikeyan Cedeno Ast rocytoma (HCC) in [place] Turner (Primary Dx) [place] 200 [facility] [address] [place] [phone] Social History Tobacco Use Types Packs/Day Years [...] slept in a nursing home (including now)? Sex Assigned at Date Recorded Female 01/07/2022 11:11 AM CDT documented as of this encounter Consult Notes Karthikeyan Cedeno M.D. - 01/03/2022 8:20 AM CDT SUBJECTIVE PRIMARY CARE PHYSICIAN: No primary care provider on file. REASON FOR CONSULT Mia Richardson is a 51 y.o. 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 HISTORY OF PRESENT ILLNESS - PMH is largely unremarkable except for brief course of treatment with HCTZ for HTN in the past. - 11/29/2021 presented to [facility] with intermittent word-finding difficulty. She was [...] by Dr. Dunlap. Pathology was consistent with CHEMISTRY QUALITY CONTROL ANALYST WHO grade 3 astrocytoma, IDH wildtype, MGMT [...] week. She could state she was in [place], in her home. She could name ring [...] y.o. 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 We will need [...] be implemented if thisis pursued. 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 [...] Telemedicine Clinical Genomics Sanya Mehta M.D. [address] [place] [phone] 05/06/2022 Clinical Communication Admitting/Central Scheduling 05/09/2022 Office Visit Oncology Farzana Allen M.D. [address] [place] [phone] 05/17/2022 Clinical Communication Admitting/Central Scheduling 05/21/2022 Lab Laboratory Medicine Vini Maki M.D., Ph.D. [address] [place] [phone] 05/21/2022 Appointment Radiology Vini Maki M.D., Ph.D. [address] [place] [phone] 05/21/2022 Office Visit Oncology Vini Maki M.D., Ph.D. [address] [place] [phone] 06/11/2022 Ancillary Procedure Ophthalmology Chas Shin M.D. [address] [place] [address] [phone] 06/11/2022 Ancillary Procedure Ophthalmology Chas Shin M.D. [address] [place] [address] [phone] 06/11/2022 Office Visit Ophthalmology Chas Shin M.D. [address] [place] [phone] Scheduled Referrals Name Type Priority Associated Diagnoses [...]
--- OUTSIDE RECORDS SUMMARY | 2022-04-10 09:44 | XMS_ITS | Encounter Summary ---
:1970 Author Organization [facility] Address [address] [place] [address] Care Team Providers Name Role Phone Unavailable Primary Care Provider Unavailable Reason for Referral MRI/CAT/PET Scan (Routine) - Closed Specialty Diagnoses / Procedures Referred By Contact Refer red To Contact Radiology Diagnoses Mass Brain Evangelist Salinas M.D., [facility] Procedures MR Brain Functional Language with MD Administration Ph.D. [address] [place] [phone] Referral ID Status Reason Start Date Expiration Date Visits Requ ested Visits Authorized [id number] Closed 01/01/2022 01/01/2023 1 1 Reason for Visit Auth/Cert Specialty Diagnoses / Procedures Referred By Contact Refer red To Contact Diagnoses Malignant Neoplasm Of Brain (HCC) Procedures CT CRANIOT SUBDURAL IMPL ELECTRODE CT MAPPING CORTICAL INITIAL HR Awake left temporoparietal stereotactic craniotomy tumor resection, speech mapping, intraop MRI, supine position. Referral ID Status Reason Start Date Expiration Date Visits Requ ested Visits Authorized [id number] 1 1 Encounter Details Date Type Department Care Team Description 01/09/2022 Hospital Encounter Department of Radiology, Radha Salinas, Mass Brain lucien Mcgrath M.D., Ph.D. [place], [place] [address] [place] [address] [place] [phone] Social History Tobacco Use Types Packs/Day Years [...] Clinical Genomics Sanya Mehta M.D. [address] [place] [phone] 05/06/2022 Clinical Communication Admitting/Central Scheduling 05/09/2022 Office Visit Oncology Farzana Allen M.D. [address] [place] [phone] 05/17/2022 Clinical Communication Admitting/Central Scheduling 05/21/2022 Lab Laboratory Medicine Vini Maki M.D., Ph.D. [address] [place] [phone] 05/21/2022 Appointment Radiology Vini Maki M.D., Ph.D. [address] [place] [phone] 05/21/2022 Office Visit Oncology Vini Maki M.D., Ph.D. [address] [place] [phone] 06/11/2022 Ancillary Procedure Ophthalmology Chas Shin M.D. [address] [place] [phone] 06/11/2022 Ancillary Procedure Ophthalmology Chas Shin M.D. [address] [place] [address] [phone] 06/11/2022 Office Visit Ophthalmology Chas Shin M.D. [address] [place] [phone] documented as of this encounter Procedures Procedure [...] the appearance and size of the left cssousv-nnaabbta-pswyaffw mass since 03/2022. The mass demonstrates new [...] were acquired and statistically evaluated with the [employer] workstation using AFNI based correlation analysis. Training: ??The patient was trained in t he selected fMRI tasks by Dr. Coffey. ??The patient's ability to perform these tasks was assessed greta sarah the training session. 1. ??Task: ??Rhyming [facility] Patient self-assessment of performance: ??Inadequate Technologist assessment of performance: ??Inadequate Accuracy: ?11.7% Average response time: ??1.7sec Head motion: ? 0.4 mm Statistical methods: ?T statis tic filtered 2. ??Task: ??Sentence completion [facility] Patient self-assessment of performance: ?Adequate [...] the appearance and size of the left cesptvp-gtrfcbqa-fhuvbwev mass since 03/2022. The mass demonstrates new [...] were acquired and statistically evaluated with the [employer] workstation using AFNI based correlation analysis. Training: [...] statistic filtere d 2. Task: Sentence completion [facility] Patient self-assessment of performance: Adequate [...] 01/09/2022 13:0 0. Evangelist Salinas M.D., Ph.D. G MRI PROCEDURES documented in this encounter Visit [...]
--- OUTSIDE RECORDS SUMMARY | 2022-04-10 09:44 | XMS_ITS | Encounter Summary ---
:1970 Author Organization [facility] Address [address] [place] [id number] Care Team Providers Name Role Phone Unavailable Primary Care Provider Unavailable Encounter Details Date Type Department Care Team Description 01/01/2022 Lab RST RO LMP ToriRebeca J, Astrocytoma (HCC) [address] [place] [address] P.A.-C., [place] [phone] [place] [address] [phone] (Wo rk) Social History Tobacco [...] Clinical Genomics Sanya Mehta M.D. [address] [place] [address] [phone] 05/06/2022 Clinical Communication Admitting/Central Scheduling 05/09/2022 Office Visit Oncology Farzana Allen M.D. [address] [place] [address] [phone] 05/17/2022 Clinical Communication Admitting/Central Scheduling 05/21/2022 Lab Laboratory Medicine Vini Maki M.D., Ph.D. [address] [place] [phone] 05/21/2022 Appointment Radiology Vini Maki M.D., Ph.D. [address] [place] [phone] 05/21/2022 Office Visit Oncology Vini Maki M.D., Ph.D. [address] [place] [address] [phone] 06/11/2022 Ancillary Procedure Ophthalmology Chas Shin M.D. [address] [place] [address] [phone] 06/11/2022 Ancillary Procedure Ophthalmology Chas Shin M.D. [address] [place] [phone] 06/11/2022 Office Visit Ophthalmology Chas Shin M.D. [address] [place] [phone] documented as of this encounter Procedures Procedure Name Priority Date/Time Associated Diagnosis Comme nts PATHOLOGY REVIEW OF Routine 12/05/2021 3:19 PM Astrocytoma (HC C) Results for this OUTSIDE MATERIAL CDT procedure a re in the results section. documented in this encounter Results Pathology Review of Outside Material (12/05/2021 3:19 PM CDT) Component Value Ref Test Analysis Performed Pathologis t Range Method Time At Signature 01/03/2022 DTL 10:27 AM CDT Participated in [facility] 01/03/2022 DTL the [facility] -Pathology 10:27 AM [...] assessment of the case. Material Received A. [id number]: Brain, left mass 01/03/2022 DTL ? 3 stained slides 10:27 AM CDT Interpretation PRELIMINARY DIAGNOSIS 01/03/2022 DT L 10:27 AM Brain, left temporal-parietal, biopsy and excision CDT ([id number]; 12/05/2021): Mitotically-active infiltrating glioma. See comment. COMMENT A Final Integrated Diagnosis corresponding to the 2020 WHO Classification of BOBBIN DISKER Tumors will be reported subsequently, following receipt of results of next generation sequencing studies being performed by the referring institution. This mitotically-active glioma exhibits appreciable nuclear atypia, favoring astrocytic morphology, and demonstrable mitotic activity in this biopsy sampling (reaching 3 mitoses in 10 high powered garcia) in the absence of microvascular proliferation or necrosis, histologically suggestive of a higher-grade (at least BOBBIN DISKER WHO grade 3) designation on a preliminary [...] report. Per report, outside MGMT promoter studies ([facility]) resulted NEGATIVE for MGMT promoter methylation. Specimen Anatomical Collection Method Collection Time Receive d Time (Source) Location / / Volume Laterality Varies 12/05/2021 3:19 PM 2 CDT 12:17 PM CDT Narrative This result has an attachment that is no t available. Rebeca Valle P.A.-C., M.S. LAB SURG PATH ORDERABLE S Performing Organization Address City/State/ZIP Code Phon e Number [facility] - [address] [place], [place] [address] [place] [address] [address] documented in this encounter Visit Diagnoses Diagnosis Astrocytoma (HCC) documented in this encounter
--- OUTSIDE RECORDS SUMMARY | 2022-04-10 09:45 | XMS_ITS | Encounter Summary ---
:1970 Author Organization [facility] Address [address] [place] [address] Care Team Providers Name Role Phone Unavailable Primary Care Provider Unavailable Reason for Visit Reason Comments Pre-scheduling Questionnaire [facility] Encounter Details Date Type Department Care Team Description 12/26/2021 Clinical Department of Prescheduling, Pre-scheduli ng Communication Oncology in Provider Questionnaire ([facility]) [address] [phone] Social History Tobacco Use Types Packs/Day Years [...] Clinical Genomics Sanya Mehta M.D. [address] [place] [address] [phone] 05/06/2022 Clinical Communication Admitting/Central Scheduling 05/09/2022 Office Visit Oncology Farzana Allen M.D. [address] [place] [phone] 05/17/2022 Clinical Communication Admitting/Central Scheduling 05/21/2022 Lab Laboratory Medicine Vnii Maki M.D., Ph.D. [address] [place] [phone] 05/21/2022 Appointment Radiology Vini Maki M.D., Ph.D. [address] [place] [phone] 05/21/2022 Office Visit Oncology Vini Maki M.D., Ph.D. [address] [place] [phone] 06/11/2022 Ancillary Procedure Ophthalmology Chas Shin M.D. [address] [place] [phone] 06/11/2022 Ancillary Procedure Ophthalmology Chas Shin M.D. [address] [place] [phone] 06/11/2022 Office Visit Ophthalmology Chas Shin M.D. [address] [place] [phone] documented as of this encounter Visit Diagnoses Not on filedocumented in this encounter
[2022-04-10 16:35] LABS: Chloride* 102 mmol/L (96-114)
[2022-04-10 16:36] LABS: Albumin* 4.4 g/dL (3.3-5.0); Sodium* 137 mmol/L (135-149)
[2022-04-10 16:37] LABS: Potassium* 4.1 mmol/L (3.6-5.1)
[2022-04-10 16:38] LABS: Cholesterol* 236 mg/dL (90-199)
[2022-04-10 16:39] LABS: Alanine Aminotransferase* 11 U/L (4-35); Alkaline Phosphatase* 58 U/L (40-150); Aspartate Amino Transferase* 23 U/L (12-35); Bilirubin Total* 0.2 mg/dL (0.1-1.5); Blood Urea Nitrogen* 9 mg/dL (7-30); Calcium* 9.7 mg/dL (8.4-10.6); Carbon Dioxide* 26 mmol/L (20-32); Creatinine* 0.9 mg/dL (0.5-1.5); Estimated Glomerular Filt Rate 77 ml/min; Glucose* 85 mg/dL (60-115); Total Protein* 6.9 g/dL (6.0-8.3); Triglycerides* 72 mg/dL (40-149)
[2022-04-10 16:40] LABS: HDL Cholesterol* 53 mg/dL (>=50); LDL Cholesterol Calculated 169 mg/dL (<100)
== END 2022-04-10 09:25 | disposition home or self-care (01) ==
PROVIDERS: PCP Family Medicine; Visit Provider Family Medicine
DX: Z01.419 Encounter for gynecological examination (general) (routine) without abnormal findings; I10 Essential (primary) hypertension; F41.9 Anxiety disorder, unspecified; Z12.4 Encounter for screening for malignant neoplasm of cervix; Z13.6 Encounter for screening for cardiovascular disorders
CPT/HCPCS: 80053; 80061; 87624; 88174; 88175

== ENCOUNTER 2022-05-07 13:20 | Outpatient (RCR) | payer BC, MEDICAID, SELFPAY ==
[2022-03-11 18:41] LABS: Basophils Percent Auto 1.1 % (0.0-3.0); Eosinophils Percent Auto 2.7 % (0.0-7.0); Hematocrit 39.6 % (33.0-51.0); Lymphocytes Percent Auto 26.8 % (20-44); Mean Corpuscular HGB Conc 33 gm/dL (32-36); Mean Corpuscular Hemoglobin 29 pg (26-34); Mean Corpuscular Volume 87 fL (80-100); Monocytes Percent Auto 9.7 % (0.0-11.0); Neutrophils Percent Auto 59.7 % (42.0-72.0); Platelet Count* 235 K/uL (140-440); RDW Coefficient of Variation % 13.1 % (11.5-15.5); Red Blood Count 4.55 m/uL (4.00-5.20)
[2022-03-11 22:54] LABS: Slide Review Reflex No
[2022-04-17 14:27] LABS: Basophils Percent Auto 0.3 % (0.0-3.0); Eosinophils Percent Auto 1.7 % (0.0-7.0); Hematocrit 38.3 % (33.0-51.0); Hemoglobin* 12.5 gm/dL (12.0-16.0); Lymphocytes Percent Auto 29.9 % (20-44); Mean Corpuscular HGB Conc 33 gm/dL (32-36); Mean Corpuscular Hemoglobin 28 pg (26-34); Mean Corpuscular Volume 86 fL (80-100); Monocytes Percent Auto 5.9 % (0.0-11.0); Neutrophils Percent Auto 62.2 % (42.0-72.0); Platelet Count* 265 K/uL (140-440); RDW Coefficient of Variation % 12.9 % (11.5-15.5); Red Blood Count 4.48 m/uL (4.00-5.20); White Blood Count* 3.58 K/uL (4.50-11.00)
[2022-04-17 14:43] LABS: Slide Review Reflex No
[2022-04-23 14:11] LABS: Basophils Percent Auto 0.6 % (0.0-3.0); Eosinophils Percent Auto 1.4 % (0.0-7.0); Hematocrit 38.2 % (33.0-51.0); Hemoglobin* 12.4 gm/dL (12.0-16.0); Lymphocytes Percent Auto 33.2 % (20-44); Mean Corpuscular HGB Conc 33 gm/dL (32-36); Mean Corpuscular Hemoglobin 28 pg (26-34); Mean Corpuscular Volume 86 fL (80-100); Monocytes Percent Auto 6.3 % (0.0-11.0); Neutrophils Percent Auto 58.5 % (42.0-72.0); Platelet Count* 268 K/uL (140-440); RDW Coefficient of Variation % 12.9 % (11.5-15.5); Red Blood Count 4.45 m/uL (4.00-5.20); White Blood Count* 3.49 K/uL (4.50-11.00)
[2022-04-23 14:29] LABS: Slide Review Reflex No
[2022-04-30 12:43] LABS: Basophils Percent Auto 0.3 % (0.0-3.0); Eosinophils Percent Auto 1.6 % (0.0-7.0); Hematocrit 38.1 % (33.0-51.0); Hemoglobin* 12.4 gm/dL (12.0-16.0); Lymphocytes Percent Auto 29.1 % (20-44); Mean Corpuscular HGB Conc 33 gm/dL (32-36); Mean Corpuscular Hemoglobin 28 pg (26-34); Mean Corpuscular Volume 85 fL (80-100); Monocytes Percent Auto 9.2 % (0.0-11.0); Neutrophils Percent Auto 59.8 % (42.0-72.0); Platelet Count* 249 K/uL (140-440); RDW Coefficient of Variation % 13.2 % (11.5-15.5); Red Blood Count 4.46 m/uL (4.00-5.20); White Blood Count* 3.16 K/uL (4.50-11.00)
[2022-04-30 12:53] LABS: Slide Review Reflex No
[2022-05-07 13:47] LABS: Basophils Percent Auto 0.6 % (0.0-3.0); Eosinophils Percent Auto 1.3 % (0.0-7.0); Hematocrit 37.6 % (33.0-51.0); Hemoglobin* 12.4 gm/dL (12.0-16.0); Lymphocytes Percent Auto 34.3 % (20-44); Mean Corpuscular HGB Conc 33 gm/dL (32-36); Mean Corpuscular Hemoglobin 28 pg (26-34); Mean Corpuscular Volume 86 fL (80-100); Monocytes Percent Auto 8.6 % (0.0-11.0); Neutrophils Percent Auto 55.2 % (42.0-72.0); Platelet Count* 274 K/uL (140-440); RDW Coefficient of Variation % 13.2 % (11.5-15.5); Red Blood Count 4.38 m/uL (4.00-5.20); White Blood Count* 3.15 K/uL (4.50-11.00)
[2022-05-07 14:00] LABS: Slide Review Reflex No
[2022-05-14 13:11] LABS: Basophils Percent Auto 0.3 % (0.0-3.0); Eosinophils Percent Auto 2.1 % (0.0-7.0); Hematocrit 39.1 % (33.0-51.0); Hemoglobin* 12.8 gm/dL (12.0-16.0); Mean Corpuscular HGB Conc 33 gm/dL (32-36); Mean Corpuscular Hemoglobin 28 pg (26-34); Mean Corpuscular Volume 86 fL (80-100); Monocytes Percent Auto 8.4 % (0.0-11.0); Neutrophils Percent Auto 61.2 % (42.0-72.0); Platelet Count* 258 K/uL (140-440); RDW Coefficient of Variation % 13.3 % (11.5-15.5); Red Blood Count 4.57 m/uL (4.00-5.20); White Blood Count* 3.32 K/uL (4.50-11.00)
[2022-05-14 13:15] LABS: Slide Review Reflex No
== END 2023-04-24 11:50 | disposition home or self-care (01) ==
LOC: LAB 13:20
PROVIDERS: PCP Family Medicine; Visit Provider Physician Assistant
DX: C71.9 Malignant neoplasm of brain, unspecified (principal)
CPT/HCPCS: 36415; 85025

== ENCOUNTER 2022-06-19 11:31 | Outpatient (CLI) | payer MEDICAID, SELFPAY ==
--- OUTSIDE RECORDS SUMMARY | 2022-06-19 11:33 | XMS_ITS | Encounter Summary ---
:1970 Author Organization [facility] [place] Address [address] [place] [address] Phone Care Team Providers Name Role Phone Unavailable Primary Care Provider Unavailable Reason for Visit Auth/Cert Specialty Diagnoses / Procedures Referred By Contact Refer red To Contact SURGERY Diagnoses Brain Mass Korin Blanco MD [facility] [address] [place] [address] 7784 4 R4.728 [place] [address] Phone: Fax: Referral ID Status Reason Start Date Expiration Date Visits Requ ested Visits Authorized [id number] 1 1 Encounter Details Date Type Department Care Team Description 11/30/2021 - Hospital Encounter [facility] Catracho Blanco MD [address] [place] [id number] Brain mass 12/07/2021 Surgery/Trauma/Neuro Darinel Dunlap MD [address] [place] [address] [place] [address] R4.300 [place], [place] [address] Social History Tobacco Use Types Packs/Day Years [...] intermittent word finding difficulties and likely seizure AUDIOVISUAL LIBRARIAN, found to have a contrast nonenhancing lesion [...] % Wt Change from Adm: 0 % Rhodelia Body Wt (IBW) Female (kg): 58.15 kg [...] 6 mm. 3. Unchanged 3 mm of bakp-ya-eabbg midline shift. 4. Vague hypodense masslike area [...] intact Motor: Follows commands x4 extremities, 5/5 music education director strength and plantar/dorsiflexion bilaterally?? Sensory: Sensation intact [...] Your Medications These medications were sent to [facility] Discharge Pharmacy - [facility] [address] [place] [address], [facility], [place] [address] Hours: 17/03 ?? acetaminophen 325 mg tablet ?? dexamethasone 4 mg Tabs ?? levETIRAcetam 1000 mg Tabs ?? oxyCODONE 5 mg tablet Discharge Procedure Orders Special activity instructions Order Comments: Seizure Safety: Per [place] regulations individuals are prohibited from operating a motor vehicle within 3 months following any seizure or other episode with sudden unconsciousness or inability to sit up, and that are required to report any future such seizure to the [facility] within 30 days after the event. I [...] Receiving: none Income Source: employed Primary Insurance: [employer] Secondary Insurance: N/A PLAN Plan/Interventions Discharge Plan: [...] Gaytan RN, MSN Inpatient Float Clinical coordinator [phone] ZEALER Covering Green & Purple surgery. Nanci Gaytan, [...] intact Motor: Follows commands x4 extremities, 5/5 music education director strength and plantar/dorsiflexion bilaterally?? Sensory: Sensation intact [...] Dunlap MD - 12/07/2021 12:00 [place] [address] [facility]#: [id number] PATIENT: GUILLERMINA KELSEY : 1970 DATE DICTATED: 12/07/2021 SURGERY STAFF DAILY PROGRESS NOTE DATE OF SERVICE: 12/07/2021 I saw and evaluated the patient. I discussed management with residents, RESTAURANT DISTRICT MANAGER, and PAs on the Neurosurgery team and [...] MD Staff Physician Surgery Service Received in Nursing Admin: 12/07/2021 17:08:12 M: /[id number] WG/MODL Jimena Allison PA-C - 12/06/2021 5:02 [...] intact Motor: Follows commands x4 extremities, 5/5 music education director strength and plantar/dorsiflexion bilaterally?? Sensory: Sensation intact [...] Dunlap MD - 12/06/2021 12:00 [place] [address] [facility]#: [id number] PATIENT: GUILLERMINA KELSEY : 1970 DATE DICTATED: 12/06/2021 SURGERY STAFF DAILY PROGRESS NOTE DATE OF SERVICE: 12/06/2021 I saw and evaluated the patient. I discussed management with residents, RESTAURANT DISTRICT MANAGER, and PAs on the Neurosurgery team and [...] MD Staff Physician Surgery Service Received in Nursing Admin: 12/06/2021 17:46:16 M: /[id number] WG/MODL Bob Olvera DDS - 12/05/2021 5:37 [...] biopsy 12/05 Activity as tolerated Decadron 11/29-12/03 [facility] Neurology consulted - appreciate recs -echo (TTE) - negative -LP (cell count, protein, glucose, oligoclonal bands, IL-2, flow/cytology) - negative to date -Hep B, Hep C, HIV - negative - Please contact the Neurosurgery Resident on-call with questions or new concerns Discussed with Neurosurgery Chief Resident. Bob Olvera DDS [facility] PGY2 Neurosurgery Service Interval 24-hour Events/Subjective: Discussion [...] Blanco MD - 12/05/2021 12:00 [place] [address] [facility]#: [id number] PATIENT: GUILLERMINA KELSEY : 1970 DATE DICTATED: 12/05/2021 SURGERY STAFF DAILY PROGRESS NOTE DATE OF SERVICE: 12/05/2021 I saw and evaluated the patient. I discussed management with residents, RESTAURANT DISTRICT MANAGER, and PAs on the Neurosurgery team and [...] MD Staff Physician Neurosurgery Service Received in Nursing Admin: 12/05/2021 20:29:52 M: /[id number] TB/MODL Bob Olvera DDS - 12/04/2021 7:35 [...] 12/04 Plan: Activity as tolerated Decadron 11/29-12/03 [facility] Neurology consulted - appreciate recs [...] Dunlap MD - 12/04/2021 12:00 [place] [address] [facility]#: [id number] PATIENT: GUILLERMINA KELSEY : 1970 DATE DICTATED: 12/04/2021 SURGERY STAFF DAILY PROGRESS NOTE DATE OF SERVICE: 12/04/2021 I saw and evaluated the patient. I discussed management with residents, RESTAURANT DISTRICT MANAGER, and PAs on the Neurosurgery team and [...] MD Staff Physician Surgery Service Received in Nursing Admin: 12/04/2021 19:10:08 M: /[id number] WG/MODL Nic Vega MD - 12/03/2021 9:14 [...] Normal tone throughout, shoulder abduction 5/5 bilaterally,finger music education director 5/5 bilaterally, knee extension/flexion 5/5 bilat, plantarflexion 5/5 bilat, dorsiflexion 5/5 bilat. Sensory: sensation intact to pinprick on arms and legs bilaterally Coordination: nyvokm-moie-jslofs intact bilaterally Reflexes: plantars downgoing bilaterally Gait: deferred Labs and imaging reviewed by me: 12/03: Negative HIV, negative hepatitis B surface antibody, negative hepatitis C antibody, negative hepatitis B surface antigen. Assessment and Plan Guillermina Kelsey is a 51 y.o. female with past medical history of hypertension and benign thyroid nodules presenting from [facility] for further evaluation of new brain [...] with Neurosurgery Chief Resident. Bob Olvera DDS [facility] PGY2 Neurosurgery Service Interval 24-hour Events/Subjective: No [...] Blanco MD - 12/03/2021 12:00 [place] [address] [facility]#: [id number] PATIENT: GUILLERMINA KELSEY : 1970 DATE DICTATED: 12/03/2021 SURGERY STAFF DAILY PROGRESS NOTE DATE OF SERVICE: 12/03/2021 I saw and evaluated the patient. I discussed management with residents, RESTAURANT DISTRICT MANAGER, and PAs on the Neurosurgery team and [...] MD Staff Physician Neurosurgery Service Received in Nursing Admin: 12/03/2021 18:01:00 M: /[id number] TB/MODL Bob Olvera DDS - 12/02/2021 5:58 [...] with Neurosurgery Chief Resident. Bob Olvera DDS [facility] PGY2 Neurosurgery Service Interval 24-hour Events/Subjective: No [...] extremities, strength 5/5 b/l wrist flex/ext, hand music education director, elbow flex/ext, shoulder abduction, hip flexion, knee [...] extremities, strength 5/5 b/l wrist flex/ext, hand music education director, elbow flex/ext, shoulder abduction, hip flexion, knee [...] Blanco MD - 12/01/2021 12:00 [place] [address] [facility]#: [id number] PATIENT: GUILLERMINA KELSEY : 1970 DATE DICTATED: 12/01/2021 SURGERY STAFF DAILY PROGRESS NOTE DATE OF SERVICE: 12/01/2021 I saw and evaluated the patient. I discussed management with residents, RESTAURANT DISTRICT MANAGER, and PAs on the Neurosurgery team and [...] MD Staff Physician Neurosurgery Service Received in Nursing Admin: 12/01/2021 10:02:46 M: /[id number] /MODL Susana Taylor RN - 11/30/2021 8:10 [...] 4 extremities,strength 5/5 b/l wrist flex/ext, hand music education director, elbow flex/ext, shoulder abduction, hip flexion, knee [...] Shelton PA-C, 11/30/2021 6:36 PM Neurosurgery Pager [phone] or MDJunction documented in this encounter Procedure Notes Chandan [...] to verify the correct patient, procedure, equipment, system support analyst and site/side marked as required. Anesthesia: local [...] Tabs Take 1 tablet by mouth daily. AUDIOVISUAL LIBRARIAN med Assessment: Pertinent points to note: No changes to AUDIOVISUAL LIBRARIAN medications. I have reviewed the patient's medications for discharge and have discussed the necessary changes with the provider. Changes have been made and medication list updated and complete. Please page with any questions. Hattie Mathis PharmD 12/07/2021 16:17 For questions regarding this note, please contact pharmacist on service at [facility] and [facility] ([employer]) or [phone]. If no response within needed timeframe, please contact central pharmacy via phone at [phone]. Jacquie Link MD - 12/05/2021 5:16 PM [...] on keppra and decadron and transferred to [facility] for neurosurgical evaluation. #left temporal multifocal infiltrative [...] evidence thus far for systemic malignancy with BOOKING OFFICER metastatic, negative CT CAP (aside from granulomatous [...] stress). 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 Ramirez. Thank you for involving neurology in the care of this patient. Please do not hesitate to call with questions/concerns. General neurologypager [phone]. We will sign off, please page the team with new concerns or if laboratory values return abnormal. Cherelle Alvarez MD Neurology PGY-3 Seizure Safety: Per [place] regulations individuals are prohibited from operating a [...] brought her into a local emergency department ([facility]) that night. She was treated with keppra and steroids and subsequently transferred to [facility] for imaging findings of brain mass. Per [...] her head that had been responsive to xrme-omy-ojptafd medications. Does not endorse that the headache [...] improvement and is currently able to do [employer] (language learning software) on her phone in [...] substance use disorder who lives in a retirement. 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 Has not [...] right handed and her primary language is Maltese. PAST MEDICAL HISTORY: HTN Goiter/thyroid nodules PRIOR [...] Mother with breast cancer, father with unspecified BOOKING OFFICER infection. REVIEW OF SYSTEMS: Complete 10-point ROS [...] labs and imaging since admission [facility]. Lab results: Lab Results Component Value Date/Time [...] Brain mass or lesion please do with [employer] protocol. Comparison: Brain MRI from earlier today. Technique: Thin-section susceptibility-weighted, T1-weighted, and T2-weighted MR imaging was performed of the skull after intravenous contrast administration. The images were transferred to the [employer] SystemsWorkstation for surgical planning. Amide proton transfer(APT)-weighted imaging [...] evidence thus far for systemic malignancy with BOOKING OFFICER metastatic, negative CT CAP. It is possible that sarcoidosis could have a similar presentation, so could obtain echo to assess for extra BOOKING OFFICER manifestations (although no pulmonary or cardiac symptoms endorsed by Ms. eKlsey). Agree that lumbar puncture could be helpful [...] to call with questions/concerns. General neurology pager [phone]. We will continue to follow . Cherelle [...] intact Motor: Follows commands x4 extremities, 5/5 music education director strength and plantar/dorsiflexion bilaterally Sensory: Sensation intact [...] Dunlap MD - 12/05/2021 12:00 [place] [address] [id number] PATIENT: GUILLERMINA KELSEY : 1970 DATE OF [...] head was affixed to the David head boys tennis coach. All pressure points were padded. Stealth [...] around the edges of the tumor. The roofing contractor drill was then used to create a [...] MD Staff Physician Surgery Service Received in Nursing Admin: 12/05/2021 17:41:26 M: /[id number] AE/MODL documented in this encounter Miscellaneous Notes [...] equal, round, reactive to light. Bilateral hand transport engineer equal and strong, and plantar and dorsi [...] Cardiac Assessment Within Defined Limits except for: Cotton Machine Operator - remote telemetry Respiratory Within defined [...] informed of Patient Valuables and Belongings Policy (#[id number]): Policy reviewed - patient/family/designee has indicated that he/she will assume responsibility of patient valuables Transferred from Unit/Bed: [facility] Transferred to Unit/Bed: [place] [address] Received By:: Susana Liz RN A: Transferred patient from [facility] to [place] [address] at 2255, via wheelchair. Transferred with: RN [...] Cardiac Assessment Within Defined Limits except for: Cotton Machine Operator - bedside telemetry Lead Monitored: Lead [...] Cardiac Assessment Within Defined Limits except for: Cotton Machine Operator - bedside telemetry Lead Monitored: Lead [...] Cardiac Assessment Within Defined Limits except for: Cotton Machine Operator - bedside telemetry Lead Monitored: Lead [...] Cardiac Assessment Within Defined Limits except for: Cotton Machine Operator - bedside telemetry Lead Monitored: Lead [...] Cardiac Assessment Within Defined Limits except for: Cotton Machine Operator - bedside telemetry ECG Rhythm: normal [...] Cardiac Assessment Within Defined Limits except for: Cotton Machine Operator - bedside telemetry ECG Rhythm: normal sinus rhythm MT Interval (sec): 0.19 QRS Interval (sec): 0.07 [...] Psychosocial Within Defined Limits Nursing Assessment - dAan Eldridge RN - 12/05/2021 8:00 PM CDT Nursing Assessment Head to Toe Head to Toe Assessment Shift Summary Shift Summary Neurologic/Cognitive Within Defined Limits HEENT HEENT Cardiac Assessment Within Defined Limits except for: Cotton Machine Operator - bedside telemetry ECG Rhythm: normal [...] Arevalo MD - 12/05/2021 2:32 PM CDT [facility] Immediate Post Operative Note Note written: [...] Implant Name Type Inv. Item Serial No. Fire Equipment Operator Lot No. LRB No. Used Action GELFOAM(SURGIFOAM) SZ 100 3X5 (LARGE) 1973 Hemostatic Agent GELFOAM(SURGIFOAM) SZ 100 3X5 (LARGE) 1973 JOSE ARMANDO & JOSE ARMANDO Left 1 Implanted SURGICEL 4X8 1951 Hemostatic Agent SURGICEL 4X8 1951 [employer] Left 1 Implanted SURGIFLO(aka Gel Flow) 2991 Hemostatic Agent SURGIFLO(aka Gel Flow) 2991 [employer] Left 1 Implanted STRAIGHT PLATE, 2 HOLE 421.502 Plate STRAIGHT PLATE, 2 HOLE 421.502 [employer] Left 2 Implanted KATERINE HOLE COVER, 17MM 421.527 Plate KATERINE HOLE COVER, 17MM 421.527 [employer] Left 1 Implanted DURA,DURAGEN 3X3IN [id number] Duragen DURA,DURAGEN 3X3IN [id number] [employer] YAZ [id number] Left 1Implanted 4MM 400.834E Screw/Carnegie 4MM 400.834E [employer] Left 9 Implanted [...] PM CDT I have reviewed today's student nurse/web marketing intern's nursing documentation. Nicole Navarro RN 12/05/2021 15:50 Nursing Assessment - Efraín Cardenas, RN - 12/05/2021 3:08 AM CDT Nursing Assessment Head to Toe Head to Toe Assessment Shift Summary D: A/O x4, neuro intact, no numbness/tingling reported, strong transport engineer/flexion. VSS, denies pain. Remains on RA, LS [...] Cardiac Assessment Within Defined Limits except for: Cotton Machine Operator - bedside telemetry Respiratory Within defined [...] PM CDT I have reviewed today's student nurse/web marketing intern's nursing documentation. Nicole Navarro RN 12/04/2021 [...] Cardiac Assessment Within Defined Limits except for: Cotton Machine Operator - bedside telemetry ECG Rhythm: normal [...] 0000 until reoriented and after conversing with web content writer for a short while was more [...] Family Behavior: not present Utilization Management - Kelyl Cartwright RN - 11/30/2021 9:03 PM CDT Admission Criteria Not Met MD Admitting DX: sided brain mass Reason Not Met: meets inpatient, unable to locate criteria to match Nursing Assessment - Susana Taylor RN - 11/30/2021 8:34 PM CDT Nursing Assessment Head to Toe Head to Toe Assessment Shift Summary Shift Summary Pt arrived around 1800 from [place], [place] following a full at home last [...] are in OSTIC the results section. CYTOLOGY NON-CLOTHING EXAMINER Routine 12/03/2021 2:48 Results for this SPECIMEN [...] POC Glucose 124 (H) 70 - 100 [facility] MAIN mg/dL CAMPUS - POINT OF CARE Specimen (Source) Anatomical Collection Method Collection Time Re ceived Time Location / / Volume Laterality Blood 12/06/2021 5:54 PM CDT Korin Blanco MD LABORATORY Performing Organization Address City/[facility]/ZIP Code Phon e Number [facility] - [facility]ARE [address] [place] [address] (ABNORMAL) POC GLUCOSE (12/06/2021 11:52 AM CDT) athologist Signature POC Glucose 146 (H) 70 - 100 [facility] MAIN mg/dL CAMPUS - POINT OF CARE Specimen (Source) Anatomical Collection Method Collection Time Re ceived Time Location / / Volume Laterality Blood 12/06/2021 11:52 AM CDT Korin Blanco MD LABORATORY Performing Organization Address City/[facility]/ZIP Code Phon e Number [facility] [address] [place] [address] (ABNORMAL) PANEL BASIC METABOLIC (BMP) (12/06/2021 5:25 AM CDT) P athologist Signature Sodium 133 (L) 135 - 148 [facility] mEq/L Potassium 4.1 3.5 - 5.3 [facility] mEq/L Chloride 100 92 - 108 [facility] mEq/L CO2 23 22 - 30 [facility] mEq/L AnGap 10 8 - 16 [facility] mEq/L Glucose 128 (H) 70 - 100 [facility] mg/dL BUN 18 6 - 20 [facility] mg/dL Creatinine 0.61 0.50 - 1.00 [facility] mg/dL Calcium 8.9 8.6 - 10.0 [facility] mg/dL eGFR, High >120 >=60 [facility] ml/min/1.73 m2 Comment: Calculated using CKD-EPI equati on eGFR, Low 105 >=60 ml/min/1.73m2 [facility] Comment: Calculated using CKD-EPI equati on Specimen Anatomical Collection Method Collection Time Receive d Time (Source) Location / / Volume Laterality Blood 12/06/2021 5:25 AM 2 5:53 CDT AM CDT Jimena Allison PA-C LABORATORY Performing Organization Address City/State/ZIP Code Phon e Number [facility] [place] [address] (ABNORMAL) CBC WITH PLATELET (12/06/2021 5:25 AM CDT) P athologist Signature WBC 18.50 (H) 4.00 - [facility] LAB 10.00 k/cmm RBC 3.88 (L) 3.90 - 5.20 [facility] m/cmm Hgb 11.3 (L) 11.5 - 15.7 [facility] g/dL Hematocrit 34.7 34.0 - 45.0 [facility] % MCV 89.4 80.0 - [facility] 100.0 fL MCH 29.1 25.0 - 32.0 [facility] pg MCHC 32.6 31.0 - 36.0 [facility] g/dL RDW 13.4 11.5 - 14.5 [facility] % Plt 301 150 - 400 [facility] k/cmm MPV 10.6 6.5 - 12.5 [facility] fL Specimen Anatomical Collection Method Collection Time Receive d Time (Source) Location / / Volume Laterality Blood 12/06/2021 5:25 AM 5:43 CDT AM CDT Jimena Allison PA-C LABORATORY Performing Organization Address City/State/ZIP Code Phon e Number [facility] [place] [address] HEAD NO IV CONTRAST (12/05/2021 [...] 6 mm. 3. Unchanged 3 mm of ihzg-ch-kbvwe midli ne shift. 4. Vague hypodense masslike area left te mporoparietal junction and left thalamus better characterized on prior MRI Jimena Allison was contacted by Vignesh Fowlre at 7:03PM on 12/05/21 and made aware of the above finding If you are the patient, and wish to disc uss this report with a radiologist, please call [phone] between 8 am and 4 pm on [...] the hemorrhage. Unchange d 3 mm of mwup-ct-msvkp midline shift. H ypodense masslike at the [...] to the hemorrhage. Unchanged 3 mm of cfps-tn-gkral midline shift. Hypodense masslike at the left [...] 6 mm. 3. Unchanged 3 mm of mgix-bb-kepds midli ne shift. 4. Vague hypodense masslike area left te mporoparietal junction and left thalamus better characterized on prior MRI Jimena Allison was contacted by Vignesh Fowler at 7:03PM on 12/05/21 and made aware of the above finding If you are the patient, and wish to disc uss this report with a radiologist, please call [phone] between 8 am and 4 pm on regular working days. I have personally reviewed the image(s) and initial interpretation, and I agree with the findings as documented by the resident/fellow. Reading Radiologist: Kinjal Jenkins Reading Resident: Vignesh Fowler Korin Blanco MD CT NEURO (ABNORMAL) POC GLUCOSE (12/05/2021 5:14 PM CDT) athologist Signature POC Glucose 130 (H) 70 - 100 [facility] mg/dL CAMPUS - POINT OF CARE Specimen (Source) Anatomical Collection Method Collection Time Re ceived Time Location / / Volume Laterality Blood 12/05/2021 5:14 PM CDT Korin Blanco MD LABORATORY Performing Organization Address City/State/ZIP Code Phon e Number [facility] [address] [place] [address] SURGICAL PATHOLOGY (12/05/2021 3:47 PM CDT) Component Value Ref Test Analysis Performed Pathologis t Range Method Time At [facility] SURG PATH ?Surgical Pathology Report [facility] FINAL Collection Date: ?12/05/2021 15:19 CDT ?Ordering Physician: ? DARINEL DUNLAP Received Date: ?12/05/2021 15:26 CDT ?Accession Number: ? 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 Addendum electronically signed by [...] is negative for this sample (please see [id number] for full report and interpretation). Correlation with clinical in formation, morphologic findings, and other diagnostic tests is indicated. References: 1. Terell DJ, Erick RG, Ranjan KD, et al N Engl J Med. 2015;372(96):2489-98. ?Surgical Pathology Report Collection Date: ?12/05/2021 15:19 CDT ?Ordering Physician: ? DARINEL DUNLAP Received Date: ?12/05/2021 15:26 CDT ?Accession Number: ? [id number] Addended Ancillary Studies: Please see the patient's medical records for the complete sc anned report. * ??Report Electronically Signed By ??* ?? NORBERTO ACEVEDO MD ?? 01.10.2022 9:15 ?SP Addendum Addended Ancillary Studies: Received on 12/26/21 is a an cillary report from Dr. Kofi Aleman of the [facility], [facility], [address] [facility], [facility] [address], [place] [address]. MGMT PROMOTER METHYLATION (Final result) RESULTS MGMT [...] Percent Methylation Ratio (PMR) following the published Zawatt procedure. PMR values great er than or [...] of alkylating chemotherapy. Please see the patient's [facility] medical records for the complete scanned [...] Date: ?12/05/2021 15:26 CDT ?Accession Number: ? [id number] Final Diagnosis: A. 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 See comment. B. 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 See comment. Comment: Although [...] re port from ?Lamonte Redmond of the [facility], [address] [place], [facility] [address], [address] [place] [address] regarding an external consultation of this case material requested by Dr. Warner. The treasury management sales consultant's diagnosis i s reflected in the final diagnosis field. Please see the complete consultation report within this patient's medical record. Clinical History: Clinical Diagnosis: Brain mass OR/OR 12.06.2021 12:11 Gross Description: A. ??The specimen [...] for permanent section in 1 cassette.( ? [facility]) B. ??The specimen is receive d in [...] is entirely submitted in 2 cassettes.( ? [facility]) OR/OR 12.06.2021 12:11 Microscopic Description: A,B - Microscopic [...] negative for IDH1 R132H. Immunostains performed at [facility] show the neoplastic cells are positive for p53 (scattered) and the proliferation index ki-67 is moderately elevated, est imated at 20-30%. OR/SC 12.06.2021 12:11 Specimen Anatomical Collection Method Collection Time Receive d Time (Source) Location / / Volume Laterality AP SPECIMEN 12/05/2021 3:47 PM 2 3:56 CDT PM CDT Comment: Brain, left mass, biopsy Narrative This result has an attachment that is no t available. Darinel Dunlap MD LAB PATHOLOGY Performing Organization Address [facility] Code Phon e Number [facility] [place] [address] TEST URINE (12/05/2021 6:36 AM CDT) athologist Signature Ur Negative Negative [facility] UPT performed [facility] at Comment: Test performed at: [facility] [address] [place] [address] Specimen Anatomical Collection Method Collection Time Receive d Time (Source) Location / / Volume Laterality Urine 12/05/2021 6:36 AM 2 6:58 CDT AM CDT Narrative [facility] - 12/05/2021 7:53 AM CDT Needs for surgery today if has had mense s in last year. Korin Blanco MD LABORATORY Performing Organization Address [facility] Phon e Number [facility] [place] [address] COVID-19 SURVEILLANCE (12/05/2021 6:30 AM CDT) [facility] Method Time Signature COVID-19 Not Detected Not Detected [facility] Comment: This assay is an RT-PCR FDA craig roved test. Specimen (Source) Anatomical Collection Method Collection Time Re ceived Time Location / / Volume Laterality Nasopharyngeal Swab 12/05/2021 6:30 12/05 AM CDT 6:31 AM CDT Narrative [facility] - 12/05/2021 7:20 AM CDT Preferred specimen is Nasopharyngeal swab Is the patient a healthcare employee: No Is the patient a Nataliya ([employer]) Employee : No Korin Blanco MD LABORATORY Performing Organization Address City/[facility]/ZIP Code Phon e Number [facility] [place] [address] ANTIBODY SCREEN (12/05/2021 4:58 AM CDT) athologist Signature Mónica Screen Negative [facility] Specimen Anatomical Collection Method Collection Time Receive d Time (Source) Location / / Volume Laterality Blood 12/05/2021 4:58 AM 2 5:29 CDT AM CDT Korin Blanco MD LAB TRANSFUSION SERVICES Performing Organization Address City/[facility]/ZIP Code Phon e Number [facility] [place] [address] BLOOD TYPING-ABO/RH (12/05/2021 4:58 AM CDT) athologist Signature ABORHG O NEG [facility] Specimen Anatomical Collection Method Collection Time Receive d Time (Source) Location / / Volume Laterality Blood 12/05/2021 4:58 AM 2 5:29 CDT AM CDT Korin Blanco MD LAB TRANSFUSION SERVICES Performing Organization Address City/[facility]/ZIP Code Phon e Number [facility] [place] [address] PROTHROMBIN (PT) & INR (12/05/2021 4:58 AM CDT) athologist [facility] PT 11.4 9.0 - 12.5 [facility] sec INR 1.0 0.8 - 1.1 [facility] Specimen Anatomical Collection Method Collection Time Receive d Time (Source) Location / / Volume Laterality Blood 12/05/2021 4:58 AM 2 5:43 CDT AM CDT Korin Blanco MD LABORATORY Performing Organization Address City/[facility]/ZIP Code Phon e Number [facility] [place] [address] (ABNORMAL) PANEL BASIC METABOLIC (BMP) (12/05/2021 4:58 AM CDT) athologist Signature Sodium 140 135 - 148 [facility] mEq/L Potassium 3.9 3.5 - 5.3 [facility] mEq/L Chloride 107 92 - 108 [facility] mEq/L CO2 27 22 - 30 [facility] mEq/L AnGap 6 (L) 8 - 16 [facility] mEq/L Glucose 91 70 - 100 [facility] mg/dL BUN 29 (H) 6 - 20 [facility] mg/dL Creatinine 0.84 0.50 - 1.00 [facility] mg/dL Calcium 8.7 8.6 - 10.0 [facility] mg/dL eGFR, High 93 >=60 [facility] ml/min/1.73 m2 Comment: Calculated using CKD-EPI equati on eGFR, Low 81 >=60 ml/min/1.73m2 [facility] Comment: Calculated using CKD-EPI equati on Specimen Anatomical Collection Method Collection Time Receive d Time (Source) Location / / Volume Laterality Blood 12/05/2021 4:58 AM 5:48 CDT AM CDT Korin Blanco MD LABORATORY Performing Organization Address City/State/ZIP Code Phon e Number [facility] [place] [address] CBC WITH PLTS/AUTO DIFF (12/05/2021 4:58 AM CDT) P athologist Signature WBC 7.60 4.00 - [facility] 10.00 k/cmm RBC 3.93 3.90 - [facility] 5.20 m/cmm Hgb 11.7 11.5 - [facility] 15.7 g/dL Hematocrit 36.5 34.0 - [facility] 45.0 % MCV 92.9 80.0 - [facility] 100.0 fL MCH 29.8 25.0 - [facility] 32.0 pg MCHC 32.1 31.0 - [facility] 36.0 g/dL RDW 13.8 11.5 - [facility] 14.5 % Plt 266 150 - 400 [facility] k/cmm MPV 10.8 6.5 - 12.5 [facility] fL Automated Abs 3.46 1.70 - [facility] Neutrophil 6.50 k/cmm Comment: Preliminary ANC, Final Result t o Follow Abs Immature Granulocyte 0.04 0.00 - 0.09 k/cmm [facility] Comment: The Immature Granulocyte Absolu te count contains metamyelocytes and myelocytes. Abs Neutrophil 3.46 1.70 - 6.50 k/cmm [facility] B Abs Lymphocyte 3.47 0.80 - 4.00 k/cmm [facility] B Abs Monocyte 0.41 0.20 - [...] City/State/ZIP Code [place] [address] TRANSTHOR (TTE) COMPLETE WITH CONTRAST (12/04/2021 [...] ?COLLING GUILLERMINA Height ?65.51 Inches Patient Number ?[id number] ?Weig ht ?207.68 Pounds Date of ? 1970 ?? BSA ? 2.02 m^2 Age ? 51 ? Tape Number Gender ?Female ? Study Date ?12/04/2021 08:58 AM Cloth Shader ? [facility] ??TESFAYE LANGLEY Referring ?Interpreting ?Erick Saldana MD Physician ?Physician ? [id number] Type of Study: TTE procedure: 2D echocardiogram, M-Mode , Doppler , Color Doppler, Contrast study, ECH TRANSTHORACIC ECHO ( TTE), Myocardial Strain Imaging HR: 63 bpmBP: 118/75 mmHgPatient Status: Routine Study Location: [id number] Quality: G ood visualization Contrast Medium: Definity. [...] Signature Electronically signed by Erick Saldana MD [id number](Interpreting physician) on 2021 01:28 PM Valves Mitral [...] GUILLERMINA Height 65.51 I nches Patient Number [id number] Weight 207.68 Emerald nds Date of 1970 BSA 2.02 m^2 Age 51 Tape Number Gender Female Study Date 12/04/2021 08:5 8 AM Cloth Shader BMF Ordering Physician ARABELLA LANGLEY Referring Interpreting Beatriz Graham Physician Physician [id number] Type of Study: TTE procedure: 2D echocardiogram, M-Mode , Doppler , Color Doppler, Contrast study, ECH TRANSTHORACIC ECHO ( TTE), Myocardial Strain Imaging HR: 63 bpmBP: 118/75 mmHgPatient Status: Routine Study Location: [id number] Quality: G ood visualization Contrast Medium: Definity. [...] Signature Electronically signed by Erick Saldana MD [id number](Interpreting physician) on 2021 01:28 PM Valves Mitral [...] Organization Address City/State/ZIP Code Phon e Number [facility] HEARTLAB ENCEPHALOPATHY, AUTOIMMUNE EVALUATION, SERUM (12/03/2021 7:15 PM CDT) Component Value Ref Test Analysis Performed At [facility] Range Method Time Signature Encephalopathy, See [facility] Interpretation Footnote LABORATORIES [address] [facility] Comment: No informative autoantibodies were detec anayeli in this evaluation. However, a negative result d oes not exclude autoimmune encephalopathy, idiopathic or paraneoplastic. Sensitivity and specificity of antibody testing are enhanced by testing both serum and CSF. AMB Receptor Ab Negative Negative [facility] L [facility]ATOR[facility] [address] [facility] Comment: ADDITIONAL INFORMATIO N This test was developed and its performa nce characteristics determined by [facility] in a manner co nsistent with CLIA requirements. This test has not been nay ared or approved by the U.S. Food and Drug Administration. Amphiphysin AB Negative <1:240 titer [facility] [address] [facility] Comment: ADDITIONAL INFORMATIO N This test was developed and its performa nce characteristics determined by [facility] in a manner co nsistent with CLIA requirements. This test has not been nay ared or approved by the U.S. Food and Drug Administration. REFERENCE RANGE: ??AMPHIPHYSIN AB <1:240 = NEGATIVE AGNA 1 Negative <1:240 titer [facility] RATGlowbl [address] SU[facility]TR Comment: ADDITIONAL INFORMATIO N This test was developed and its performa nce characteristics determined by [facility] in a manner co nsistent with CLIA requirements. This test has not been nay ared or approved by the U.S. Food and Drug Administration. REFERENCE RANGE: ??AGNA 1 <1:240 = NEGATIVE Polina 1 Negative <1:240 titer [facility] R[facility] [address] [facility] Comment: REFERENCE RANGE: POLINA 1 <1:240 = NEGATIVE POLINA 2 Negative <1:240 titer [facility] [address] [facility] Comment: ADDITIONAL INFORMATIO N This test was developed and its performa nce characteristics determined by [facility] in a manner co nsistent with CLIA requirements. This test has not been nay ared or approved by the U.S. Food and Drug Administration. REFERENCE RANGE POLINA 2 <1:240 = NEGATIVE POLINA 3 Negative <1:240 titer [facility] [address] [facility] Comment: ADDITIONAL INFORMATIO N This test was developed and its performa nce characteristics determined by [facility] in a manner co nsistent with CLIA requirements. This test has not been nay ared or approved by the U.S. Food and Drug Administration. REFERENCE RANGE: ??POLINA 3 <1:240 = NEGATIVE CASPR2-IgG CBA Negative Negative [facility] [address] SU[facility] CENTR Comment: ADDITIONAL INFORMATIO N This test was developed and its performa nce characteristics determined by [facility] in a manner co nsistent with CLIA requirements. This test has not been nay ared or approved by the U.S. Food and Drug Administration. CRMP-5-IGG Negative <1:240 titer [facility] [address] SU[facility] C[facility]TR Comment: ADDITIONAL INFORMATIO N This test was developed and its performa nce characteristics determined by [facility] in a manner co nsistent with CLIA requirements. This test has not been nay ared or approved by the U.S. Food and Drug Administration. REFERENCE RANGE: ??CRMP-5-IGG <1:240 = NEGATIVE DPPX Ab IFA Negative Negative [facility] [address] [facility] Comment: ADDITIONAL INFORMATIO N This test was developed and its performa nce characteristics determined by [facility] in a manner co nsistent with CLIA requirements. This test has not been nay ared or approved by the U.S. Food and Drug Administration. ESDRAS B Receptor Ab Negative Negative [employer] [address] [facility]TR Comment: ADDITIONAL INFORMATIO N This test was developed and its performa nce characteristics determined by [facility] in a manner co nsistent with CLIA requirements. This test has not been nay ared or approved by the U.S. Food and Drug Administration. GAD65 Ab Assay 0.00 <=0.02 nmol/L [facility] [address] SU[facility] Comment: ADDITIONAL INFORMATIO N This test was developed and its performa nce characteristics determined by [facility] in a manner co nsistent with CLIA requirements. This test has not been nay ared or approved by the U.S. Food and Drug Administration. GFAP IFA Negative Negative [facility] [address] [facility] Comment: ADDITIONAL INFORMATIO N This test was developed and its performa nce characteristics determined by [facility] in a manner co nsistent with CLIA requirements. This test has not been nay ared or approved by the U.S. Food and Drug Administration. IgLONS IFA Negative Negative [facility] [address] SU[facility] CENTR Comment: ADDITIONAL INFORMATIO N This test was developed and its performa nce characteristics determined by [facility] in a manner co nsistent with CLIA requirements. This test has not been nay ared or approved by the U.S. Food and Drug Administration. LGI1-IgG CBA Negative Negative [facility] [address] [facility] Comment: ADDITIONAL INFORMATIO N This test was developed and its performa nce characteristics determined by [facility] in a manner co nsistent with CLIA requirements. This test has not been nay ared or approved by the U.S. Food and Drug Administration. mGluR1 Ab IFA Negative Negative [facility] LAB ORATORIES [address] SU[facility] CENTR Comment: ADDITIONAL INFORMATIO N This test was developed and its performa nce characteristics determined by [facility] in a manner co nsistent with CLIA requirements. This test has not been nay ared or approved by the U.S. Food and Drug Administration. NMDA R Ab Negative Negative [facility] DR[address] SUPPORT CENTR Comment: ADDITIONAL INFORMATIO N This test was developed and its performa nce characteristics determined by [facility] in a manner co nsistent with CLIA requirements. This test has not been nay ared or approved by the U.S. Food and Drug Administration. NIF IFA Negative Negative [facility] [address] SUPPORT CENTR Comment: ADDITIONAL INFORMATIO N This test was developed and its performa nce characteristics determined by [facility] in a manner co nsistent with CLIA requirements. This test has not been nay ared or approved by the U.S. Food and Drug Administration. POLITICAL RESEARCH SCIENTIST 1 Negative <1:240 titer [facility] [employer] SUPPORT CENTR Comment: ADDITIONAL INFORMATIO N This test was developed and its performa nce characteristics determined by [facility] in a manner co nsistent with CLIA requirements. This test has not been nay ared or approved by the U.S. Food and Drug Administration. REFERENCE RANGE: ??POLITICAL RESEARCH SCIENTIST 1 <1:240 = NEGATIVE POLITICAL RESEARCH SCIENTIST 2 Negative <1:[address] [facility] [address] SUPPORT CENTR Comment: ADDITIONAL INFORMATIO N This test was developed and its performa nce characteristics determined by [facility] in a manner co nsistent with CLIA requirements. This test has not been nay ared or approved by the U.S. Food and Drug Administration. REFERENCE RANGE: ??POLITICAL RESEARCH SCIENTIST 2 <1:240 = NEGATIVE POLITICAL RESEARCH SCIENTIST TR Negative <1:240 titer [facility] LAB[facility] Comment: ADDITIONAL INFORMATIO N This test was developed and its performa nce characteristics determined by [facility] in a manner co nsistent with CLIA requirements. This test has not been nay ared or approved by the U.S. Food and Drug Administration. Test Performed by: [address] [address] Inflated Pad Buffer: Chintan Coronado M.D. Ph. D.; CLIA# [id number] REFERENCE RANGE: ??POLITICAL RESEARCH SCIENTIST TR <1:240 = NEGATIVE Specimen Anatomical Collection Method Collection Time Receive d Time (Source) Location / / Volume Laterality Serum 12/03/2021 7:15 PM 2 7:01 CDT AM CDT Narrative [facility] - 12/13/2021 5:20 PM CDT Encephalopathy, Autoimmune Evaluation, Serum Name of test: ENS2 Korin Blanco MD LABORATORY Performing Organization Address City/State/ZIP Code Phon e Number [facility] [address] [place], [place] [address] [facility]TR INTERLEUKIN 2 RECEPTOR (CD25) SOLUBLE (12/03/2021 7:15 PM CDT) [facility] Method Time Signature Interleukin 2 332.1 175.3 - [facility] Receptor (CD25) 858.2 LABORATORIES Soluble pg/mL Comment: INTERPRETIVE INFORMATION: Cytokines Results are used to understand the patho physiology of immune, infectious, or inflammatory diso rders, or may be used for research purposes. This test was developed and its performa nce characteristics determined by [employer]. It has not been cleared or approved by the [place] Food and Drug Adminis tration. This test was performed in a CLIA certified labora tory and is intended for clinical purposes. Performed By: [facility] [address] [place] [address] Plastic Bubble Packer: Hortensia Lemon MD Specimen Anatomical Collection Method Collection Time Receive d Time (Source) Location / / Volume Laterality Serum 12/03/2021 7:15 PM 2 7:01 CDT AM CDT Korin Blanco MD LABORATORY Performing Organization Address City/[facility]/ZIP Code Phon e Number [employer] [address] [place] [address] QUANTIFERON-TB GOLD PLUS (12/03/2021 7:15 PM CDT) [facility] Method Time Signature QuantiFERON TB Negative Negative [facility] Gold Plus QFT TB 1 -0.01 [facility] QFT TB 2 -0.01 [facility] QFT TB MITOGEN 9.97 [facility] QFT NIL 0.03 [facility] Specimen Anatomical Collection Method Collection Time Receive d Time (Source) Location / / Volume Laterality Blood 12/03/2021 7:15 PM 2 8:57 CDT PM CDT Korin Blanco MD LABORATORY Performing Organization Address City/[facility]/ZIP Code Phon e Number [facility] [place] [address] [address] [facility] XR NEEDLE PLACEMENT - SPINE (12/03/2021 3:07 [...] verify the correct patient, procedure, equipmen t, system support analyst and site/side marked as required. Anesthesia: local [...] para median. Chandan Chu MD PROCEDURES CYTOLOGY NON-CLOTHING EXAMINER SPECIMEN (12/03/2021 2:48 PM CDT) [facility] Method Time Signature Cytology Refrigerated [facility] Non-Cell Builder Specimen Specimen Anatomical Collection Method Collection Time Receive d Time (Source) Location / / Volume Laterality CSF 12/03/2021 2:48 PM 3:17 CDT PM CDT Comment: CYTOLOGY NON-CLOTHING EXAMINER SPECIMEN Narrative [facility] - 12/03/2021 3:17 PM CDT Both orders are required to process Cytology/Non-CLOTHING EXAMINER panel. Please do not discontinue either order. 1. Cytology Non-CLOTHING EXAMINER 2. Cytology Non-CLOTHING EXAMINER Specimen . Korin Blanco MD LAB PATHOLOGY Performing Organization Address City/State/ZIP Code Phon e Number [facility] [place] [address] MISCELLANEOUS LAB (12/03/2021 2:48 PM CDT) [facility] Method Time Signature [facility] [place]out See Comment See Comment MISCELLANEOUS REFERENCE LABORATORY Comment: Meningitis/Encephalitis Panel by PCR [facility] test code 6934372 Escherichia coli K1 by PCR Not Detected [...] MISCELLANEOUS REFERENCE LABORATORY - 7:29 AM CDT [place] [facility] Meningitis/Encephalitis Pathogen Panel, PCR, Spinal Fluid Reference Lab: [facility] Test Name: ABOVE Reference Lab test code: [id number] Reflex testing available (Y/N): N Expected TAT: 2 DAYS Temp: ??R Korin Blanco MD LABORATORY Performing Organization Address City/State/ZIP Code Phon e Number MISCELLANEOUS REFERENCE LABORATORY MISCELLANEOUS REFERENCE See Comment for Lab LABORATORY Address CSF CULTURE:INCLUDES GRAM STAIN (12/03/2021 2:48 PM CDT) [facility] Method Time Signature Final Report No growth. [facility] Gram Stain No PMN's seen. [facility] Report No organisms seen. Specimen Anatomical Collection Method Collection Time Receive d Time (Source) Location / / Volume Laterality CSF 12/03/2021 2:48 PM 2 3:26 CDT PM CDT Narrative [facility] - 12/06/2021 10:02 AM CDT Was CSF taken from a shunt: No Korin Blanco MD LAB MICROBIOLOGY Performing Organization Address City/[facility]/ZIP Code Phon e Number [facility] [place] [address] BODY FLUID CELL COUNT/DIFF (12/03/2021 2:48 PM CDT) [facility] Method Time Signature Fluid Type CF CSF [facility] Volume CF 20 mL [facility] Appearance CF Clear [facility] Color bf Colorless [facility] Tube # CSF Tube 4 [facility] RBC CSF <1,000 cells/ul [facility] Nuc Ct CSF 1 cells/ul [facility] Neutrophil CSF 0 % [facility] Lymphocytes CSF 100 % [facility] Specimen Anatomical Collection Method Collection Time Receive d Time (Source) Location / / Volume Laterality CSF 12/03/2021 2:48 PM 2 3:17 CDT PM CDT Korin Blanco MD LABORATORY Performing Organization Address City/[facility] Code Phon e Number [facility] [place] [address] OLIGOCLONAL BANDS CSF (12/03/2021 2:48 PM CDT) [facility] Method Time Signature Oligoc Band CSF Negative [facility] [facility] Oligoclonal Bands 0 0 - 1 [facility] Number,CSF LABORATORIES Oligoclonal Bands See Note [facility] Comment: Isoelectric focusing/immunofixation reve aled no oligoclonal bands in either the CSF or the serum. Th is is considered to be a negative result for oligoclonal ban ds. Approximately 5 percent of patients with clinically defi nitive multiple sclerosis will have a negative result. Performed By: [employer] [address] [place] [id number] Pl[employer] Bubble Packer: Hortensia Lemon MD Specimen Anatomical Collection Method Collection Time Receive d Time (Source) Location / / Volume Laterality CSF 12/03/2021 2:48 PM 2 3:17 CDT PM CDT Korin Blanco MD LABORATORY Performing Organization Address City/State/ZIP Code Phon e Number [address] [address] PROTEIN, CSF (12/03/2021 2:48 PM CDT) athologist Signature Protein Total 34 15 - 45 [facility] CSF mg/dL Specimen Anatomical Collection Method Collection Time Receive d Time (Source) Location / / Volume Laterality CSF 12/03/2021 2:48 PM 2 3:17 CDT PM CDT Korin Blanco MD LABORATORY Performing Organization Address City/State/ZIP Code Phon e Number [facility] [place] [address] (ABNORMAL) GLUCOSE, CSF (12/03/2021 2:48 PM CDT) athologist Signature Glucose CSF 82 (H) 40 - 70 [facility] mg/dL Comment: GLUCOSE CSF REFERENCE RANGES: 60% - 70% of the plasma level at the nisha e the spinal tap is performed Specimen Anatomical Collection Method Collection Time Receive d Time (Source) Location / / Volume Laterality CSF 12/03/2021 2:48 PM 2 3:17 CDT PM CDT Korin Blanco MD LABORATORY Performing Organization Address City/State/ZIP Code Phon e Number [facility] [place] [address] FLOW CYTOMETRY (12/03/2021 1:10 PM CDT) Component Value Ref Test Analysis Performed At [facility] gist Range Method Time Signature FC Report ?Flow Cytometry Report [facility] Collection Date: ?12/03/2021 13:10 CDT ?Ordering Physician: ? KORIN BLANCO Received Date: ?12/03/2021 16:18 CDT ?Accession Number: ? [id number] ? Final Report Clinical History: Clinical history per [facility] medical records: 51-year-old female with brain lesions. [...] and the cell populations were evaluated using [employer] analysis software. The total cell count in thi s study was 1/microliter after lysis of red cells. Cell viability was 100%. This test was developed and its performance characteristics determined by the ? [place] [facility]. ??It has not been [...] Organization Address City/State/ZIP Code Phon e Number [facility] [place] [address] CYTOLOGY NON-CLOTHING EXAMINER (12/03/2021 1:10 PM CDT) Component Value Ref Test Analysis Performed At [facility] gist Range Method Time Signature Non Cell Builder ?Non Cell Builder Report [facility] Report Collection Date: ?12/03/2021 13:10 CDT ?Ordering Physician: ? KORIN BLANCO Received Date: ?12/04/2021 11:48 CDT ?Accession Number: ? [id number] ?Non Gynecologic Cytology Final Report Specimen Type: Cerebral Spinal Fluid Final Diagnosis: Negative for malignant cells. * ??Report Electronically Signed By ??* ?? Renetta Warner M.D. ?? Screening Performed By: ?? ALYSE Hill(ASCP) ?? [facility] 12.05.2021 15:22 Clinical History & Gross [...] Blanco MD LAB PATHOLOGY Performing Organization Address City/[facility]/ZIP Code Phon e Number [facility] [place] [address] HIV COMBO (12/03/2021 6:41 AM CDT) [facility] gist Method Time Signature HIV Nonreactive Nonreactive [facility] Antigen-Antib shannan Comment: Performance characteristics hav e not been established with this test on patients less than 2 years of age. Specimen Anatomical Collection Method Collection Time Receive d Time (Source) Location / / Volume Laterality Blood 12/03/2021 6:41 AM 2 7:17 CDT AM CDT Korin Blanco MD LABORATORY Performing Organization Address City/[facility]/ZIP Code Phon e Number [facility] [place] [address] HEPATITIS B SURFACE ANTIGEN (12/03/2021 6:41 AM CDT) [facility] Method Time Signature HBV Surface Nonreactive Nonreactive [facility] Ag Specimen Anatomical Collection Method Collection Time Receive d Time (Source) Location / / Volume Laterality Blood 12/03/2021 6:41 AM 2 7:17 CDT AM CDT Korin Blanco MD LABORATORY Performing Organization Address City/[facility]/ZIP Code Phon e Number [facility] [place] [address] HEPATITIS C ANTIBODY WITH CONDITIONAL PCR (12/03/2021 6:41 AM CDT) [facility] Signature Hep C Mónica Nonreactive Nonreactive [facility] Comment: Performance characteristics hav e not been established with this test on patients less than 10 years of age. Specimen Anatomical Collection Method Collection Time Receive d Time (Source) Location / / Volume Laterality Blood 12/03/2021 6:41 AM 2 7:17 CDT AM CDT Korin Blanco MD LABORATORY Performing Organization Address City/[facility]/ZIP Code Phon e Number [facility] [place] [address] HEPATITIS B SURFACE ANTIBODY (12/03/2021 6:41 AM CDT) P athologist Signature HBV Surface Reactive [facility] Mónica Comment: Reactive implies immunity. Specimen Anatomical Collection Method Collection Time Receive d Time (Source) Location / / Volume Laterality Blood 12/03/2021 6:41 AM 7:17 CDT AM CDT Korin Blanco MD LABORATORY Performing Organization Address City/State/ZIP Code Phon e Number [facility] [place] [address] CHEST/ABD/PELVIS W/IV CONT (12/01/2021 9:13 [...] CDT) P athologist Signature Mónica Screen Negative [facility] Specimen Anatomical Collection Method Collection Time Receive d Time (Source) Location / / Volume Laterality Blood 12/01/2021 12:28 12/01/2021 AM CDT 12:55 AM CDT Hattie Adams PA-C LAB TRANSFUSION SERVICES Performing Organization Address City/State/ZIP Code Phon e Number [facility] [place] [address] BLOOD TYPING-ABO/RH (12/01/2021 12:28 AM CDT) P athologist Signature ABORHG O NEG [facility] Specimen Anatomical Collection Method Collection Time Receive d Time (Source) Location / / Volume Laterality Blood 12/01/2021 12:28 12/01/2021 AM CDT 12:55 AM CDT Hattie Adams PA-C LAB TRANSFUSION SERVICES Performing Organization Address City/State/ZIP Code Phon e Number [facility] [place] [address] PTT (APTT) (12/01/2021 12:28 AM CDT) P athologist Signature APTT 34.2 25.0 - 37.0 [facility] sec Specimen Anatomical Collection Method Collection Time Receive d Time (Source) Location / / Volume Laterality Blood 12/01/2021 12:28 12/01/2021 1:00 AM CDT AM CDT Hattie Adams PA-C LABORATORY Performing Organization Address City/[facility]/ZIP Code Phon e Number [facility] [place] [address] PROTHROMBIN (PT) & INR (12/01/2021 12:28 AM CDT) athologist Signature PT 12.0 9.0 - 12.5 [facility] sec INR 1.0 0.8 - 1.1 [facility] Specimen Anatomical Collection Method Collection Time Receive d Time (Source) Location / / Volume Laterality Blood 12/01/2021 12:28 12/01/2021 1:00 AM CDT AM CDT Hattie Adams PA-C LABORATORY Performing Organization Address [facility] Phon e Number [facility] [place] [address] (ABNORMAL) PANEL BASIC METABOLIC (BMP) (12/01/2021 12:28 AM CDT) athologist Signature CO2 21 (L) 22 - 30 [facility] mEq/L Glucose 111 (H) 70 - 100 [facility] mg/dL BUN 10 6 - 20 [facility] mg/dL Creatinine 0.62 0.50 - 1.00 [facility] mg/dL Calcium 8.6 8.6 - 10.0 [facility] mg/dL eGFR, High >120 >=60 [facility] ml/min/1.73 m2 Comment: Calculated using CKD-EPI equati on Sodium 139 135 - 148 mEq/L [facility] Potassium 4.3 3.5 - 5.3 mEq/L [facility] Chloride 108 92 - 108 mEq/L [facility] eGFR, Low 105 >=60 ml/min/1.73m2 [facility] Comment: Calculated using CKD-EPI equati on [employer] 10 8 - 16 mEq/L [facility] Specimen Anatomical Collection Method Collection Time Receive d Time (Source) Location / / Volume Laterality Blood 12/01/2021 12:28 12/01/2021 1:00 AM CDT AM CDT Hattie Adams PA-C LABORATORY Performing Organization Address City/[facility]/ZIP Code Phon e Number [facility] [place] [address] (ABNORMAL) CBC WITH PLATELET (12/01/2021 12:28 AM CDT) P athologist Signature WBC 7.51 4.00 [facility] 10.[facility] k/cmm RBC 3.74 (L) 3.90 - 5.20 [facility] m/cmm Hgb 11.2 (L) 11.5 - 15.7 [facility] g/dL Hematocrit 34.8 34.0 - 45.0 [facility] % MCV 93.0 80.0 - [facility] 100.0 fL MCH 29.9 25.0 - 32.0 [facility] pg MCHC 32.2 31.0 - 36.0 [facility] g/dL RDW 13.8 11.5 - 14.5 [facility] % Plt 271 150 - 400 [facility] k/cmm MPV 10.9 6.5 - 12.5 [facility] fL Specimen Anatomical Collection Method Collection Time Receive d Time (Source) Location / / Volume Laterality Blood 12/01/2021 12:28 12/01/2021 1:00 AM CDT AM CDT Hattie Adams PA-C LABORATORY Performing Organization Address City/State/ZIP Code Phon e Number [facility] [place] [address] MR BRAIN W/O + WITH CONTRAST [...] mass or lesion ??pleas e do with [employer] protocol. Comparison: Brain MRI from earlier today . Technique: Axial susceptibility-weighted images were obtained of the brain. Additional volumetric T1-and T2-weighted images were obtained brain following the intravenous administration of gadolinium, wi th the images transferred to the [employer] Workstation for surgical planning. Amide proton transfer(APT)-weighted [...] abnormally increased APT signal is evident. Trace cbqv-ur-nshdk midline shift withou t herniation. No hydrocephalus [...] gadolinium, with the images transferred to the [employer] Workstation f or surgical planning. Amide proton [...] abnormally increased APT signal is evident. Trace main-qz-bwocn midline shift withou t herniation. No hydrocephalus [...] mass - Primary Unspecified condition of brain Brain mass Unspecified condition of brain Focal seizure () [...] comment) - Comment: says was removed by [employer] prior to patient arriving in unit.)7903 (Given - Provider: Adan Eldridge RN) 9086 (Given - Provider: Adan Eldridge RN) 1227 [...] ONE TIME, 1 dose, On Fri12/05/21 at 2044 levETIRAcetam (KEPPRA) tablet 1,000 mg 0757 (Given [...] 12/05/2021 12/06/2021 12/07/2021 acetaminophen tablet 650 mg 183 (Given - Provider: David dyson, RN) 1815 [...] Meche Devi RN)1230 (Given - Provider: Meche Devi RN)181 (Given [...] (ROXICODONE) tablet 5 mg (CANCELED) 1856 (Gi mikyala - Provider: David Okeefe RN)2336 (Given - Provider: Adan Eldridge RN) 0550 (Given - Provider: Adan Eldridge RN) 5 mg, Oral, Q4H PRN, Starting on 11/23 at 1835, Until Fri12/06/21 at 0740, Moderate Pain (Use First) oxyCODONE (ROXICODONE) tablet 5-10 mg 10 38 (Given - Provider: Meche Devi, JAMES)1638 (Given - Provider: Mandy Jackson RN)2029 (Given [...]
--- OUTSIDE RECORDS SUMMARY | 2022-06-19 11:33 | XMS_ITS | Encounter Summary ---
:1970 Author Organization [facility] Address [address] [place] [address] Phone Care Team Providers Name Role Phone [...]
--- OUTSIDE RECORDS SUMMARY | 2022-06-19 11:33 | XMS_ITS | Clinical Summary ---
:1970 Author Organization [employer] Address [address] [place] [phone] Phone Care Team Providers Name Role Phone Unavailable Primary Care Provider Unavailable Source Comments Zilta is fully rolled out on [employer]. Last update 01/27/09.[email or web address] Allergies Active Allergy Reactions Severity Noted Date [...] 24: Take one tablet every 12 hours 4/25: Take one tablet daily 12/18: Take one tablet daily 12/19: Take one tablet daily Active Problems Problem Noted Date Focal seizure 12/03/2021 Brain mass 11/30/2021 Social History Tobacco Use Types Packs/Day Years [...] VISIT 06/23/2021 06/23/2020 COVID-19 Vaccine (4 - 08/29/2021 07/04/2021, 10/10/2020, Booster for Pfizer series) 09/19/2020 INFLUENZA VACCINE 04/25/2022 06/29/2021, 06/11/2020, 06/17/2019, Additional history exists TD/TDAP ADULTS 06/23/2030 06/23/2020, 01/04/2010, 01/04/2003 HIV Screening Completed 12/03/2021 HIB Aged Out No longer edb joyce based on patient 's age to complete this topic Medical Devices Implanted Type Area Lozenge Dough Mixer Device Shelf Model / Identifier Expiration Serial / Lot Date Dura,Duragen 3x3in [id number] Duragen Left: [employer] 1 09/23/2023 [id number] / Implanted: Qty: 1 on 12/05/2021 by Tommy Arevalo MD at [facility] Head SCIENCES YAZ / [id number] Surgicel 4x8 1952 Hemostatic Left: [employer] 2 [id number] / Implanted: Qty: 1 on 12/05/2021 by Darinel Dunlap MD at [facility] Agent Head / Yogi Hole Cover, 17mm 421.527 Plate Left: [employer] 421.527 / Implanted: Qty: 1 on 12/05/2021 by Tommy Arevalo MD at [facility] Head / 4mm [id number] Screw/[place] Left: [employer] 400. 834E / Implanted: Qty: 9 on 12/05/2021 by Tommy Arevalo MD at [facility] Head / Insurance Payer Benefit Plan / Subscriber ID Effective Dates Phone Addre ss Type Group [employer] [id number] 2019-Presen [address] [address] PPO BLUE SHIELD ([place], [place] PL[place] [phone] ACCESS/CONSUMER VALUE/[employer]) Advance Directives For more information, please contact: [phone] Latest Code Status on File Code Status Date Activated Date Inactivated Comments Full Code 11/30/2021 6:36 PM 12/07/2021 11:10 PM Question [...]
--- OUTSIDE RECORDS SUMMARY | 2022-06-19 11:33 | XMS_ITS | Encounter Summary ---
:1970 Author Organization [facility] Address [address] [place] [phone] Phone Care Team Providers Name Role Phone [...]
--- OUTSIDE RECORDS SUMMARY | 2022-06-19 11:33 | XMS_ITS | Clinical Summary ---
:1970 Author Organization [facility] [place] [address] Care Team Providers Name Role Phone Chico Mohamud MD Primary Care Provider Allergies Active Allergy Reactions Severity Noted Date Comments Adhesive Rash 10/10/2008 Lactose Rash 06/17/2019 Medications Medication Sig Dispensed Refills Start Date End Date Status cyanocobalamin (VITAMIN Take 1 tablet 45 tablet 0 06/17/2019 Active B-12) 1,000 mcg by mouth once tabletIndications: B12 daily. deficiency hydroCHLOROthiazide (HCTZ) Take 1 tablet 90 tablet 3 0 Active 25 mg tabletIndications: by mouth once HTN (hypertension) daily. 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 At least WHO grade 3 Although the immunostain for the most co mmon IDH1 R132H mutation is negative, given the patient's age is younger than 55 years old, NGS sequencing has been initiated to confirm the tumor is IDH wildtype . For IDH-wildtype diffuse astrocytoma, WHO grade 3 is only a provisional grading. Molecular testing for TERT promoter mutation, EGFR amplification, +7/- 10 chromosome copy number changes are strongly re commended, in fact necessary, for approp riate grading of the tumor. MGMT gene methylation results will be reported in an addendum. HTN (hypertension) 12/04/2017 Multiple thyroid nodules 04/22/2011 Overview: FNA benign of dominant nodule 2010 Dr. Batres rec'd follow up ultrasound summer 2012 and biannually needs yearly TSH screen Obesity, unspecified 03/04/2011 Surveillance of previously prescribed intrauterine con traceptive device 01/04/2010 Large L4-5 Disk Herniation 07/26/2009 Right L5 Radiculopathy 07/26/2009 healthcare maintenance 06/01/2007 Overview: cholesterol 2004 pap 2007 Encounters Date Type Specialty Care Team Description 04/10/2022 Lab Requisition Chico Mohamud MD from Last 3 Months Immunizations Name Administration Dates Next Due AMB Influenza, IIV4 PF (=>6 mos Flulaval,Fluzone 06/03/2018 Fluarix)(Flu Clinic Only) COVID-19 vaccine ([employer] 30mcg/0.3mL) PF, , 09/19/2020 MDV HepA-HepB (Twinrix) 03/04/2011 Influenza, IIV3 (Age >=3 years) 09/09/2012, 08/10/2003 Influenza, IIV4 06/11/2020, 06/17/2019 Influenza,LAIV4 Live Intranasal (Flumist) 06/25/2008 Td (Age >=7 Years) 01/04/2003 Tdap 06/23/2020, 01/04/2010 Family History Medical History Relation Name Comments Autoimmune disease Father Heart Disease Father age 49 Hyperlipidemia Father Hypertension Father Cancer-breast Maternal Aunt Atrial fibrillation Mother Cancer-breast Mother diagnosed age 56 Hyperlipidemia Mother Hypertension Mother Other Sister 2 clustered calcif ications in bilatteral breasts Relation Name Status Comments Daughter Alive Father Alive Maternal Aunt Maternal Grandfather Maternal Grandmother Alive Mother Alive Paternal Grandfather Paternal Grandmother Sister 1 Alive Sister 2 Son 1 Alive Son 2 Alive Social History Tobacco Use Types Packs/Day Years Used Date Former Smoker Smokeless Tobacco: Never Used Tobacco Cessation: Counseling Given: Yes Alcohol Use Standard Drinks/Week Comments Yes 0 (1 standard drink = 0.6 oz pure alcoho l) glass of wine daily Alcohol Habits Answer Date Recorded How often do you have a drink containing alcohol? Not asked How many drinks containing alcohol do you have on a Not aske d typical day when you are drinking? How often do you have six or more drinks on one Not asked occasion? Comment: glass of wine daily 01/04/2010 Intimate Partner Violence Answer Date Recorded Within the last year, have you been afraid of your partner o r No 06/23/2020 ex-partner? Within the last year, have you been humiliated or emotionall y No 06/23/2020 abused in other ways by your partner or ex-partner? Within the last year, have you been kicked, hit, slapped, or No 06/23/2020 otherwise physically hurt by your partner or ex-partner? Within the last year, have you been raped or forced to have any No 06/23/2020 kind of sexual activity by your partner or ex-partner? Sex Assigned at Date Recorded Female 06/23/2020 8:54 AM CDT Obstetrics History Para Term AB IAB SAB Ectopic Multiple Living Live Births 3 3 3 0 0 0 0 0 3 Date Outcome GA Total Labor/2nd/3rd Weight Sex Delivery Anes PTL Judith A 1 A5 Name Clin Labor Term Term Term Last Filed Vital Signs Vital Sign Reading Time Taken Comments Blood Pressure 115/80 06/23/2020 9:48 AM CDT Pulse 76 06/23/2020 9:48 AM CDT Temperature 36.6 ??C (97.8 ??F) 02/11/2018 11:02 AM CDT Respiratory Rate 16 04/22/2011 8:33 AM CDT Oxygen Saturation 100% 06/23/2020 9:48 AM CDT Inhaled Oxygen Concentration - - Weight 98.6 kg (217 lb 6.4 oz) 06/23/2020 9:48 AM CDT Height 166 cm (5' 5.35) 06/23/2020 9:48 AM CDT Body Mass Index 35.79 06/23/2020 9:48 AM CDT Plan of Treatment Health Maintenance Due Date Last Done Comments Hepatitis C screening for age 1107/17/1988 18-79 Colonoscopy through age 75 2015 Zoster (shingles) series for age 1107/17/2020 50+ (1 of 2) Mammogram for age 45-75 07/30/2020 07/30/2019, 04/04/2017, 05/04/2012, Additional history exists COVID-19 vaccine series (3 - 12/05/2020 10/10/2020, 021 Booster for Pfizer series) BMI (ht and wt on same day) for 06/23/2021 06/23/2020, 05/26, age 18+ 02/11/2018, Additional history exists Depression screening for age 12+ 06/23/2021 06/23/2020, , 04/04/2017, Additional history exists Influenza for age 50-64 04/25/2022 06/11/2020, 06/17/2019, 06/03/2018, Additional history exists Lipids for age 45-75 06/17/2024 06/17/2019, 03/26/2017, 09/16/2013, Additional history exists Pap test for age 21-65 04/10/2027 04/10/2022, 04/10/2022, 06/23/2020, Additional history exists Tetanus booster 06/23/2030 06/23/2020, 01/04/2010, 01/04/2003 Tdap Completed 06/23/2020, 01/04/2010 Goals Goal Patient Goal Associated Recent Patient-Stated? Author Type Problems Progress BLOOD PRESSURE Blood Pressure No Chepe denise, - MAINTAINS BP Zeenat less than MD Shannan 140/90 Procedures Procedure Name Priority Date/Time Associated Diagnosis Comme nts LAB TRACKING EVENT Routine 04/10/2022 9:15 AM CDT BED LABORER THIN PREP PAP Routine 04/10/2022 9:15 AM Resu lts for this SCREEN IMAGED CDT procedure are in the results section. HPV THIN PREP Routine 04/10/2022 9:15 AM Results for this CDT procedure are i n the results section. from Last 3 Months Results LAB TRACKING EVENT (04/10/2022 9:15 AM CDT) Specimen Anatomical Collection Method Collection Time Receive d Time (Source) Location / / Volume Laterality Other (Other) Client Collect / 04/10/2022 9:15 AM 03/25 4:19 Unknown CDT PM CDT Chico Mohamud MD LAB BILL ONLY Performing Organization Address City/State/ZIP Code Phon e Number [facility] [phone] [place] [address] LABORATORY-CENTRAL 2000 LABORATORY BED LABORER THIN PREP PAP SCREEN IMAGED (04/10/2022 9:15 AM CDT) Component Value Ref Test Analysis Performed At [facility] Range Method Time Signature Case Report Gynecologic Cytology Report ? Case: [id number] ? 04/24/2022 BELÉN Authorizing Provider: ??Chico Little MD ?Collected: ? 04/10/2022 0915 ? 11:24 AM HEAL TH Ordering Location: ? [facility] CENTRAL LAB ?Received: ?04/10/2022 1703 ? CDT [place] BORATORY-C First Screen: ? Baccam, Minie ? ENTRAL Specimen: ?BED LABORER ThinPrep Vial Screening, Cervical ? LABORATORY INTERPRETATI NEGATIVE FOR (none) 04/24/2022 BELÉN Morris ctronically ON/RESULT INTRAEPITHELIAL 11:24 AM HEALTH sign ed by LESION OR CDT LABORATORY-C BacNicole archuleta on MALIGNANCY (NIL) ENTRAL 03/27 at LABORATORY 11:24 AM SPECIMEN Satisfactory for evaluation 04/24/2022 A LLINA ADEQUACY Endocervical component present 11:24 AM HEALTH CDT LABORATORY-C ENTRAL LABORATORY HPV REQUEST HPV and PAP 04/24/2022 BELÉN 11:24 AM HEALTH CDT LABORATORY-C ENTRAL LABORATORY Date of LMP 04/24/2022 BELÉN 11:24 AM HEALTH CDT LABORATORY-C ENTRAL LABORATORY Comment: unknown Last Pap Date 06/23/2020 04/24/2022 11:[address] HEALTH CDT LABORATORY-CENTRAL LABORATORY Additional 04/24/2022 11:[facility] Comment: Interpreted at [facility] Laboratory, Central Laboratory - [address], [place] [address] Automated Review Successful 04/24/2022 11:24 AM [facility] ABORATORY Comment: Specimen processed successfully by automated network technical analyst device, ThinPrep Imaging System, [employer] ANCILLARY TESTING HPV Ordered, 04/24/2022 11:24 [facility] BED LABORER Please see AM CDT LABORATORY-CENTRAL separate report LABORATORY Note The pap test is a 04/24/2022 11:24 [facility] screening AM CDT LABORATORY-CENTRAL technique, not a LABORATORY diagnostic procedure. It is used primarily to screen for squamous cancers and precursor lesions. Published studies have shown that it is subject to both false negative and false positive results. The pap test should not be used as the sole means to diagnose or exclude pre-malignant and malignant lesions. Specimen Anatomical Collection Method Collection Time Receive d Time (Source) Location / / Volume Laterality Other (Cervical) 04/10/2022 9:15 AM 04/10 5:03 CDT PM CDT Chico Mohamud MD PATHOLOGY/CYTOLOGY Performing Organization Address City/State/ZIP Code Phon e Number [facility] [address] [place] [address] LABORATORY-CENTRAL 2000 LABORATORY (ABNORMAL) HPV HIGH RISK (04/10/2022 9:15 AM CDT) [facility] gist Method Time Signature TYPE 16 Negative Negative 04/12/2022 [facility] 11:14 AM CDT LABORATORY-[place] TRAL LABORATORY TYPE 18 Negative Negative 04/12/2022 [facility] 11:14 AM CDT LABORATORY-[place] TRAL LABORATORY OTHER HIGH Positive (A) Negative 04/12/2022 [facility] RISK TYPES 11:14 AM CDT LABORATORY-[place] TRAL LABORATORY Specimen Anatomical Collection Method Collection Time Receive d Time (Source) Location / / Volume Laterality Other (Cervical) 04/10/2022 9:15 AM 04/10 5:03 CDT PM CDT Narrative [facility] LABORATORY-CENTRAL LABORAT ORY - 04/12/2022 11:14 AM CDT Specimen is positive for the DNA of any one of, or combination of, the following high risk HPV types: 31, 33, 35, 39, 45, 51, 52, 56, 58, 59, 66, 68. HPV types 16 and 18 DNA were undetectable or below the pre-set threshold. ? Methodology: Db Ti 4800 HPV Test Chico Mohamud MD MICROBIOLOGY Performing Organization Address City/State/ZIP Code Phon e Number [facility] [address] [place] [address] LABORATORY-CENTRAL 2000 LABORATORY from Last 3 Months Insurance Payer Benefit Plan / Subscriber ID Effective Dates Phone Addre ss Type Group [employer] [id number] 2019-Present [address] [place] [address] (Work) [address] Care Teams Front Desk Receptionist Relationship Specialty Start Date End Date Chico Mohamud MD PCP - General Family Practice 02/15/221999 [place] [phone]
--- OUTSIDE RECORDS SUMMARY | 2022-06-19 11:33 | XMS_ITS | Encounter Summary ---
:1970 Author Organization [facility] Address [address] [place] [address] Phone Care Team Providers Name Role Phone [...]
--- OUTSIDE RECORDS SUMMARY | 2022-06-19 11:33 | XMS_ITS | Encounter Summary ---
:1970 Author Organization [facility] Address [address] [place] [address] Phone Care Team Providers Name Role Phone Unavailable Primary Care Provider Unavailable Reason for Visit Reason Onset Date Comments Other 12/25/2021 Encounter Details Date Type Department Care Team Description 12/25/2021 Telephone Clinic & Specialty Marie Alexis Retu rn call Requested Center Neuro Surgery PSC from Neuro-Oncologist Clinic [address] [place] [address] [phone] Social History Tobacco Use [...] encounter Miscellaneous Notes Telephone Encounter - Marie Aleixs, PSC - 12/25/2021 1:46 PM CDT Geni nurse from Dr Shelbie Ackerman's office([facility] Neuro-oncologist) called and Dr Ackerman would like to discuss Mia and if more surgery is feasible with Dr Dunlap. Dr Ackerman can be reached on her cell phone to discuss patient at [phone]. Thanks, Marie Alexis PSC, 12/25/2021 1:50 PM documented in this encounter Plan of Treatment Not on filedocumented as of this encounter Visit Diagnoses Not on filedocumented in this encounter
--- OUTSIDE RECORDS SUMMARY | 2022-06-19 11:33 | XMS_ITS | Encounter Summary ---
:[address] [facility] Address [address] [place] [address] Phone Care Team Providers Name Role Phone [...]
--- OUTSIDE RECORDS SUMMARY | 2022-06-19 11:33 | XMS_ITS | Encounter Summary ---
:1970 Author Organization [facility] Address [address] [place] [address] Phone Care Team Providers Name Role Phone [...]
--- OUTSIDE RECORDS SUMMARY | 2022-06-19 11:33 | XMS_ITS | Encounter Summary ---
:1970 Author Organization [facility] Address [address] [place] [address] Phone Care Team Providers Name Role Phone [...]
--- OUTSIDE RECORDS SUMMARY | 2022-06-19 11:33 | XMS_ITS | Encounter Summary ---
:1970 Author Organization [facility] Address [address] [place] [address] Phone Care Team Providers Name Role Phone [...]
--- OUTSIDE RECORDS SUMMARY | 2022-06-19 11:33 | XMS_ITS | Encounter Summary ---
:1970 Author Organization [facility] Address [address] [place] [address] Phone Care Team Providers Name Role Phone Unavailable Primary Care Provider Unavailable Reason for Visit Auth/Cert Specialty Diagnoses / Procedures Referred By Contact Refer red To Contact SURGERY Diagnoses Brain Mass Michael Blanco MD [facility] [address] [place], [place] [address] 4 [address]4.500 [place] [address] Phone: Fax: Referral ID Status Reason Start Date Expiration Date Visits Requ ested Visits Authorized [id number] 1 1 Encounter Details Date Type Department Care Team Description 12/05/2021 Anesthesia Event OR P4 Monika Mar MD [address] [facility] P4 [place], [place] [id number] 1 [facility] [place] [address] [address]445 [place], [place] [address] Anesthesia Record Procedure Summary Procedure [...] 8:11 PM CDT Anesthesia Post Eval Patient: [facility] Procedure(s) Performed: CRANIOTOMY WITH OPEN BIOPSY [...] glidescope used for attempted #1, by this CLAIM APPROVER, unable to make the ETT curve into the cords, grade [address] Larose took over, unable to pass the ETT. This CLAIM APPROVER changed to a low profile MAC 3 [...] unchanged Performed by: Anesthesiologist: Michael Larose MD CLAIM APPROVER: Patricia Zhou APRN, CRNA Additional Notes Recommend [...] at -23.9 %. Strain calculated using a [employer] Epiq CVx . Normal right ventricular size and function. Normal left ventricular cavity size. Normal estimated left ventricular ejection fraction . No wall motion abnormality . Endo - negative ROS Musculoskeletal - negative ROS HEENT - negative ROS GI (+) obesity, Hematologic/Onc - negative ROS ROS comment: Hgb 11.7. Valid type and screen. Antibody negative. Platelets 266 /Renal/Hot Saw Operator - negative ROS ROS comment: Potassium 3.9 [...] and consented by patient. Plan discussed with CLAIM APPROVER. Vitals: 12/05/21 0739 BP: 109/71 Pulse: 56 [...] glidescope used for attempted #1, by this CLAIM APPROVER, michael ble to make the ETT curve into the cords, grade [address] Larose took over, unable to pass the ETT. This CLAIM APPROVER changed to a low profile MAC 3 [...] unchanged Performed by: Anesthesiologist: Michael Larose MD CLAIM APPROVER: Patricia Zhou APRN, CLAIM APPROVER Additional Notes Recommend low profile MAC 3 [...]
--- OUTSIDE RECORDS SUMMARY | 2022-06-19 11:33 | XMS_ITS | Encounter Summary ---
:1970 Author Organization [facility] Address [address] [place] [address] Phone Care Team Providers Name Role Phone Unavailable Primary Care Provider Unavailable Reason for Referral Consult/Test/Treat (Elective) - New Request Specialty Diagnoses / Procedures Referred By Contact Refer red To Contact Oncology / ONCOLOGY Diagnoses Brain tumor () Darinel Dunlap Elizabeth Ernst, MD Catherine, MD [address] [facility] [address] [place] [address]40 [address] [place] [address] Fax: Referral ID Status Reason Start Date Expiration Date Visits V isits Requested Authorized [id number] New Request 12/18/2021 12/18/2022 1 1 Scheduling Instructions 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 Reason for Visit Reason Comments Neurologic Problem Follow-up Encounter Details Date Type Department Care Team Description 12/18/2021 Office Visit Clinic & Specialty Darinel Dunlap Brain tumor () Center Neuro Surgery MD Jamal (Primary Dx) Clinic [address] [phone] Social History Tobacco Use Types Packs/Day Years [...] 9:51 AM CDT You were seen at [facility] neurosurgery clinic for follow-up on your brain biopsy results. We recommend a referral to the [facility] for Dr. Shelbie Ackerman. The [...] Astrocytoma. Plan: - Recommend referral to the [facility], Dr. Shelbie Ackerman. Referral order placed and faxed to [place]. Copy given to patient. - Complete decadron taper. - Continue keppra. - Sutures removed today. OK to resume activities in graduated fashion. - OK for chemotherapy and radiation in 1 month from biopsy date (01/04/2022). - OK for commercial air flight approximately 1 month from biopsy (Planning for trip to [place] with her significant other in December). Chief [...] time, place, person Cranial nerves: full visual garica; pupils equal and reactive Full extraocular movements facial muscles symmetric no dysarthria Motor Strength: RUE strength 5/5 , LUE strength 5/5, RLE strength 5/5 and LLE strength 5/5 Reflexes: symmetric Coordination: [id number] intact Sensation: intact sensation to light touch [...] Dunlap MD - 12/18/2021 12:00 [place] [address] [facility]#: [id number] PATIENT: GUILLERMINA KELSEY : 1970 DATE OF SERVICE: 12/18/2021 SURGERY CLINIC We had the opportunity to visit with Guillermina Kelsey in our Neurosurgery Clinic today for followup evaluation after the biopsy of her left parietal and posterotemporal and deep lesion. 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 Please see [...] are considering going to the [facility] as this is more convenient than the [facility]. I recommended that she see Dr. Ackerman of the [facility], and we would be happy [...] MD Staff Physician Surgery Service Received in Supervisor Housecleaner: 12/19/2021 18:36:45 M: /[id number] WG/MODL documented in this encounter Plan of Treatment Scheduled Referrals Name Type Priority Associated Diagnoses Order S chedule REFERRAL TO ONCOLOGY Referral Routine Brain tumor () Ord ered: 12/18/2021 documented as of this encounter Visit Diagnoses Diagnosis Brain tumor () - Primary Neoplasm of unspecified nature of brain documented in this encounter
--- OUTSIDE RECORDS SUMMARY | 2022-06-19 11:33 | XMS_ITS | Encounter Summary ---
:1970 Author Organization [facility] Address [address] [place] [address] Phone Care Team Providers Name Role Phone [...]
--- OUTSIDE RECORDS SUMMARY | 2022-06-19 11:34 | XMS_ITS | Encounter Summary ---
:1970 Author Organization [facility] Address [address] [place] [address] Phone Care Team Providers Name Role Phone [...]
--- OUTSIDE RECORDS SUMMARY | 2022-06-19 11:34 | XMS_ITS | Clinical Summary ---
:1970 Author Organization [facility] Address [address] [place] [address] Care Team Providers Name Role Phone No Ref-Primary, Physician Primary Care Provider [phone] Shelbie Ackerman MD Unavailable [phone] Allergies Active Allergy Reactions Severity Noted Date [...] Never Alcohol Use Standard Drinks/Week Comments Yes 0 [...] (Cologuard) 1970 FIT 1970 FLEX SIG 1970 COLONOSCOPY 1980 COLORECTAL CANCER SCREENING 1980 HIV SCREENING 1985 HEPATITIS C SCREENING 1988 HEPATITIS B IMMUNIZATION (3 04/29/2011 03/04/2011, 09/04/19 11 of 3 - 3-dose series) LIPID 2015 LUNG CANCER SCREENING 2020 ZOSTER IMMUNIZATION (1 of 2020 2) YEARLY PREVENTIVE VISIT 06/23/2021 06/23/2020 PHQ-2 (once per calendar 08/25/2021 year) COVID-19 Vaccine (4 - 08/29/2021 07/04/2021, 10/10/2020, Booster for Pfizer series) 09/19/2020 INFLUENZA VACCINE (#1) 2022 06/29/2021, 06/11/2020, 06/17/2019, Additional history exists MAMMO SCREENING 06/11/2023 06/11/2022, 07/30/2019, 04/04/2017, Additional history exists PAP 04/10/2025 04/10/2022, 05/04/2012 DTAP/TDAP/TD IMMUNIZATION 06/23/2030 06/23/2020, 01/04/2010 , (3 - Td or Tdap) 01/04/2003 IPV IMMUNIZATION Aged Out No longer eligi [...] ss Type Group BCBS [place] [id number] 2019-Presen [phone] [address] [address] [place]emnity t 0 [place] [address] (Work) [phone] Care Teams Cardiovascular Lab Director Relationship Specialty Start Date End Date No Ref-Primary, Physician PCP - General 12/19/21 Shelbie Ackerman, Assigned Neuroscience [address] [place] [address]
--- OUTSIDE RECORDS SUMMARY | 2022-06-19 11:34 | XMS_ITS | Encounter Summary ---
:1970 Author Organization [facility] Address [address] [place] [address] Care Team Providers Name Role Phone No Ref-Primary, Physician Primary Care Provider [phone] Shelbie Ackerman MD Unavailable [phone] Reason for Visit Reason Onset Date Comments Prior Auth - Medication 12/31/2021 Temozolomide [place] Approved Encounter Details Date Type Department Care Team Description 12/31/[address] [facility] Hattie Kelly Prior Auth - Medication [facility] (Temozolomide [place] [address] [facility] [address] Approved) [place] [address] Social History Tobacco Use Types [...] Approved Approved Dose/Quantity: 30/30 days Reference #: [id number] Insurance Company: [employer] [place] - Expected CoPay: CoPay Card Available: Foundation Assistance Needed: Which Pharmacy is filling the prescription (Not needed for infusion/clinic administered): Pharmacy Notified: Yes Patient Notified: Yes Thank you, Neha Kelly Oncology Pharmacy Liaison II [email or web address] Telephone Encounter - Hattie Kelly - 12/31/2021 9:18 AM CDT PA Initiation Medication: Temozolomide [place] Insurance Company: [employer] [place] - Pharmacy Filling the Rx: Filling Pharmacy Phone: Filling Pharmacy Fax: Start Date: 12/31/2021 [id number] mg [id number] MG documented in this encounter Plan of Treatment Not on filedocumented as of this encounter Visit Diagnoses Not on filedocumented in this encounter Care Teams Lining Maker Relationship Specialty Start Date End Date No Ref-Primary, Physician PCP - General 12/19/21 Shelbie Ackerman, Assigned Neuroscience [address] [place] [address] documented as of this encounter
--- OUTSIDE RECORDS SUMMARY | 2022-06-19 11:34 | XMS_ITS | Encounter Summary ---
:1970 Author Organization [facility] Address [address] [place] [id number] Care Team Providers Name Role Phone No Ref-Primary, Physician Primary Care Provider [phone] Shelbie Ackerman MD Unavailable [phone] Encounter Details Date Type Department Care Team Description 12/19/[address] [facility] Cancer Un known Clinic [address] [place] [address] [phone] Social History Tobacco Use Types [...] on filedocumented in this encounter Care Teams Ct Scan Special Procedures Technologist Relationship Specialty Start Date End Date No Ref-Primary, Physician PCP - General 12/19/21 Shelbie Ackerman, Assigned Neuroscience 2 MD Provider [address] [place] [id number] documented as of this encounter
--- OUTSIDE RECORDS SUMMARY | 2022-06-19 11:34 | XMS_ITS | Encounter Summary ---
:1970 Author Organization [facility] Address [address] [place] [address] Care Team Providers Name Role Phone Unavailable Primary Care Provider Unavailable Encounter Details Date Type Department Care Team Description 12/07/2021 Lab [facility] Brain mass (Primary Dx) Laboratory [address] [place], [place] [phone] Social History Tobacco Use Types Packs/Day [...] [facility] gist Range Method Time Signature RESULTS [...] CDT (LDL) References: 1. Benny LARA, Amber FANG, Nestor regan T, et al. MGMT gene [...] older than 60 years with glioblastoma: the [place] random ed, phase 3 trial. Lancet Oncol. 2012;13(9):916-26. [...] me lting, and immunohistochemis try) to analyze Z7-dtuufnvhebfzg-ITM-methyltranferase in a series of 100 glioblastoma patients. Cancer. 2012;118(17):4201-11. DISCLAIMER This test was developed and its performance characteristics determined by [facility]. It has not been cleared or approved by the FDA. The laboratory is regulated 12/14/2021 [employer] under CLIA as qualified to perform high-complexity [...] or confirmed the interpretation(s). Specimen Tissue: Fixed [id number] A2, :Brain, left mass, CASE FROM [place], [place] [id number], OBTAINED 12/05/2021 12/14/2021 MOLECULAR Description [id number] A2 3:28 PM DIAGNOSTICS CDT (LDL) Specimen Anatomical Collection Method Collection Time Receive d Time (Source) Location / / Volume Laterality Fixed Tissue Non-blood 12/14/2021 3:28 PM 2 Collection / CDT 12:03 PM CDT Unknown Renetta Warner MD LAB - GENOMICS Performing Organization Address City/State/ZIP Code Phon e Number [employer] [place] [address] (LDL) Diagnostics [address] [facility], Room 3-580 Glioma Panel Focused NGS Panel (12/14/2021 3:28 PM CDT) Component Value Ref Test Analysis Performed At [facility] gist Range Method Time Signature Significant [...] is negative for this sample (please see [id number] for full report and interpretation). Correlation with [...] an amplicon-based target enrichment method using a [employer] systems or a custom developed low-inpu t PCR method. The enriched D NA libraries are sequenced on an Illumina MiSeq instrument, and FASTQ files are processed through a custom designed bioinformatics pipeline [based on methods described in Miguel joyner et al. Genome Med. 2015 do i: 10.1186/c56680-396-2501-4 and Slim et al. Eloise. Transl. Med. 2018 doi: 10.69616/lilly.05.07]. Amplicons with less than 500X minimum coverage are flagged for limited a nalytic performance. Variant call files (vcf) are filtered to remove calls with variant allele fractions (VAF) less than thresholds defined for single nucleotide variants (5-10%) and insertion/deletion variants (1-5%). Clinically relevant mutations from this filtered variant list are annotated by a pathologist with [employer] digitalcology software and reported. The assay bed file [...] and its performance characteristics determined by the [facility], Molecular Diagnostics Laboratory. It has not been cleared or approved by the FDA. [facility] laboratory is regulated un john CLIA [...] (iii) rendered or confirmed the interpretation(s). --------- [employer] digitalcology Disclaimer --------- This report was produced [employer] software licensed by [employer]. [employer] software is designed to be used in clinical applications solely as a tool to enhance medical utility and improve operatio nal efficiency. The use of [employer] software is not a substitute for medical judgment and [employer] in no way holds itself out as having or providing independent medical judgment or diagnostic services. [employer] is n ot liable with respect to any treatment or diagnosis made in connection with this report. [employer] Rules Version: rules-0014 [employer] Application Version: [id number]_ 17-48 --------- Electronic Signature --------- Electronically signed/cosigned by: Clayton Hoover MD 01/02/22 Specimen Tissue: [id number] A2, :Brain, left mass, CASE FROM [place], [place] [id number], OBTAINED 12/05/2021 12/14/2021 MOLECULAR Description [id number] [id number] 3:28 PM DIAGNOSTICS CDT (LDL) Specimen Anatomical Collection Method Collection Time Receive d Time (Source) Location / / Volume Laterality Fixed Tissue TOPOGRAPHY UNKNOWN Non-blood 12/14/2021 3:28 PM / Unknown Collection / CDT 12:02 PM CDT Unknown Renetta Warner MD LAB - GENOMICS Performing Organization Address City/State/ZIP Code Phon e Number [facility] [place] [address] (LDL) Diagnostics [address] [facility], Room 3-580 (ABNORMAL) Pathology Consult (12/07/2021 2:42 PM CDT) Component Value Ref Test Analysis Performed Pathologis t Range Method Time At Signature Case Report Consult Report ?Case: [id number] ? 02/04/2022 Authorizing Provider: ??Renetta Peralta MD ?Collected: ? 12/07/2021 02:42 PM ? 11:48 AM SPECIA LTY Ordering Location: ? [facility] ? Received: ?12/07/2021 02:43 PM ? CDT LABS ? [facility] ? Pathologist: ? Lamonte Redmond MD ? Specimen: ?Consult Slide , [id number] ? 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 The final classification of the tumor is: 02/04/2022 Addendum GLIOBLASTOMA, IDH-WILDTYPE, CLINICAL ENGINEER WHO GRADE 4. 11:48 AM SPECIALTY electronically [...] gene methylation is NEGATIVE. Final CASE FROM [place], [place] ([id number], OBTAINED 12/05/2021): 02/04/2022 Electr onically Diagnosis A-B. Brain, left mass, biopsy and excision: 11:48 AM SPECIALTY signed by Nyla, - Astrocytoma, at least CLINICAL ENGINEER WHO grade 3. See comment. CDT LABS [...] be reported in an addendum. Original Case [id number] 02/04/2022 [facility] ID 11:48 AM SPECIALTY CDT LABS Material 5 slides 02/04/2022 [facility] Submitted 11:48 AM SPECIALTY CDT LABS Clinical The patient is a 51-year-old female 01/23 [facility] Information 11:48 AM SPECIALTY CDT LABS Gross Received from [facility] in [place], [place] are 5 stained slides labeled [id number] (obtained 12/05/2021), and copies of the referring [...] negative for IDH1 R132H. Immunostains performed at [facility] show the neoplastic cells are positive for p53 (scattered) and the proliferation index ki-67 is moderately elevated, estimated at 20-30%. Disclaimer Analyte Specific Reagents (A SRs) are used in many laboratory tests necessary for standard medical care and generally do not require FDA approval. This test was developed and its performance characterist 02/04/2022 ics determined by [facility]. It has not been cleared or approved by the U.S. Food and Drug Administration. [facility] are certified for the pe [...] SPECIALTY testing was completed CDT LABS at [facility] Specimen Anatomical Collection Method Collection Time Receive d Time (Source) Location / / Volume Laterality Slides SLIDE / Unknown 12/07/2021 2:42 PM 2021 2:43 CDT PM CDT Renetta Warner MD LAB - JOE BRYAN Performing Organization Address City/State/ZIP Code Phon e Number SPECIALTY [place] [phone] [address] [facility] [address] Building, Room 3580 documented in this encounter Visit Diagnoses Diagnosis Brain mass - Primary Unspecified condition of brain documented in this encounter
--- OUTSIDE RECORDS SUMMARY | 2022-06-19 11:34 | XMS_ITS | Encounter Summary ---
:1970 Author Organization [facility] Address [address] [place] [address] Phone Care Team Providers Name Role Phone Unavailable Primary Care Provider Unavailable Reason for Visit Auth/Cert Specialty Diagnoses / Procedures Referred By Contact Refer red To Contact SURGERY Diagnoses Brain Mass Korin Blanco MD [facility] [address] [place], [place] [address] 4 [address]4.500 [place] [address] Phone: Fax: Referral ID Status Reason Start Date Expiration Date Visits Requ ested Visits Authorized [id number] 1 1 Encounter Details Date Type Department Care Team Description 12/05/2021 Surgery OR P4 Darinel Dunlap CRANIOTOMY WITH OPEN 701 Afua Berry MD BIOPSY WITH STEALTH P4.[address] [place], [place] [address] [place], [place] [phone] (Wo rk) Social History Tobacco Use Types [...] intermittent word finding difficulties and likely seizure CARETAKER RESORT, found to have a contrast nonenhancing lesion [...] % Wt Change from Adm: 0 % [place] Body Wt (IBW) Female (kg): 58.15 kg [...] 6 mm. 3. Unchanged 3 mm of twye-ui-qzpmv midline shift. 4. Vague hypodense masslike area [...] intact Motor: Follows commands x4 extremities, 5/5 editor dictionary strength and plantar/dorsiflexion bilaterally?? Sensory: Sensation intact [...] Your Medications These medications were sent to [facility] Discharge Pharmacy - [place] [phone] Hours: 17/03 ?? acetaminophen 325 mg tablet ?? dexamethasone 4 mg Tabs ?? levETIRAcetam 1000 mg Tabs ?? oxyCODONE 5 mg tablet Discharge Procedure Orders Special activity instructions Order Comments: Seizure Safety: Per [place] regulations individuals are prohibited from operating a motor vehicle within 3 months following any seizure or other episode with sudden unconsciousness or inability to sit up, and that are required to report any future such seizure to the [facility] within 30 days after the event. I [...] Receiving: none Income Source: employed Primary Insurance: [employer] Secondary Insurance: N/A PLAN Plan/Interventions Discharge Plan: [...] Gaytan RN, MSN Inpatient Float Clinical coordinator [phone] [employer] Covering Green & Purple surgery. Nanci [...] intact Motor: Follows commands x4 extremities, 5/5 editor dictionary strength and plantar/dorsiflexion bilaterally?? Sensory: Sensation intact [...] Dunlap MD - 12/07/2021 12:00 [place] [address] [facility]#: [id number] PATIENT: GUILLERMINA KELSEY : 1970 DATE DICTATED: 12/07/2021 SURGERY STAFF DAILY PROGRESS NOTE DATE OF SERVICE: 12/07/2021 I saw and evaluated the patient. I discussed management with residents, DIRECTOR SYSTEMS, and PAs on the Neurosurgery team and [...] MD Staff Physician Surgery Service Received in Diesel Engine Erector: 12/07/2021 17:08:12 M: /[id number] WG/MODL Jimena Allison PA-C - 12/06/2021 5:02 [...] reviewed with chief resident, Dr. Clayton Zavala Jiemna Allison PA-C, 12/05/2021 9:09 PM Neurosurgery AMAN [...] intact Motor: Follows commands x4 extremities, 5/5 editor dictionary strength and plantar/dorsiflexion bilaterally?? Sensory: Sensation intact [...] Dunlap MD - 12/06/2021 12:00 [place] [address] [facility]#: [id number] PATIENT: GUILLERMINA KELSEY : 1970 DATE DICTATED: 12/06/2021 SURGERY STAFF DAILY PROGRESS NOTE DATE OF SERVICE: 12/06/2021 I saw and evaluated the patient. I discussed management with residents, DIRECTOR SYSTEMS, and PAs on the Neurosurgery team and agree with documented findings and plan. Ms. Klesey is sitting up in a chair. She [...] MD Staff Physician Surgery Service Received in Diesel Engine Erector: 12/06/2021 17:46:16 M: /[id number] WG/MODL Bob Olvera DDS - 12/05/2021 5:37 [...] biopsy 12/05 Activity as tolerated Decadron 11/29-12/03 [facility] Neurology consulted - appreciate recs -echo (TTE) - negative -LP (cell count, protein, glucose, oligoclonal bands, IL-2, flow/cytology) - negative to date -Hep B, Hep C, HIV - negative - Please contact the Neurosurgery Resident on-call with questions or new concerns Discussed with Neurosurgery Chief Resident. Bob Olvera DDS [facility] PGY2 Neurosurgery Service Interval 24-hour Events/Subjective: Discussion [...] Blanco MD - 12/05/2021 12:00 AM CDT [place], [place] [address] [place] [address]#: [id number] PATIENT: GUILLERMINA KELSEY : 1970 DATE DICTATED: 12/05/2021 SURGERY STAFF DAILY PROGRESS NOTE DATE OF SERVICE: 12/05/2021 I saw and evaluated the patient. I discussed management with residents, DIRECTOR SYSTEMS, and PAs on the Neurosurgery team and [...] MD Staff Physician Neurosurgery Service Received in Diesel Engine Erector: 12/05/2021 20:29:52 M: /[id number] TB/MODL Bob Olvera DDS - 12/04/2021 7:35 [...] 12/04 Plan: Activity as tolerated Decadron 11/29-12/03 [facility] Neurology consulted - appreciate recs [...] Dunlap MD - 12/04/2021 12:00 [place] [address] [facility]#: [id number] PATIENT: GUILLERMINA KELSEY : 1970 DATE DICTATED: 12/04/2021 SURGERY STAFF DAILY PROGRESS NOTE DATE OF SERVICE: 12/04/2021 I saw and evaluated the patient. I discussed management with residents, DIRECTOR SYSTEMS, and PAs on the Neurosurgery team and [...] MD Staff Physician Surgery Service Received in Diesel Engine Erector: 12/04/2021 19:10:08 M: /[id number] WG/MODL Nic Vega MD - 12/03/2021 9:14 [...] Normal tone throughout, shoulder abduction 5/5 bilaterally,finger editor dictionary 5/5 bilaterally, knee extension/flexion 5/5 bilat, plantarflexion 5/5 bilat, dorsiflexion 5/5 bilat. Sensory: sensation intact to pinprick on arms and legs bilaterally Coordination: btwsbl-jhaf-nhqzmw intact bilaterally Reflexes: plantars downgoing bilaterally Gait: deferred Labs and imaging reviewed by me: 12/03: Negative HIV, negative hepatitis B surface antibody, negative hepatitis C antibody, negative hepatitis B surface antigen. Assessment and Plan Guillermina Kelsey is a 51 y.o. female with past medical history of hypertension and benign thyroid nodules presenting from [facility] for further evaluation of [...] with Neurosurgery Chief Resident. Bob Olvera DDS [facility] PGY2 Neurosurgery Service Interval 24-hour Events/Subjective: No [...] Blanco MD - 12/03/2021 12:00 [place] [address] [facility]#: [id number] PATIENT: GUILLERMINA KELSEY : 1970 DATE DICTATED: 12/03/2021 SURGERY STAFF DAILY PROGRESS NOTE DATE OF SERVICE: 12/03/2021 I saw and evaluated the patient. I discussed management with residents, DIRECTOR SYSTEMS, and PAs on the Neurosurgery team and [...] MD Staff Physician Neurosurgery Service Received in Diesel Engine Erector: 12/03/2021 18:01:00 M: /[id number] TB/MODL Bob Olvera DDS - 12/02/2021 5:58 [...] with Neurosurgery Chief Resident. Bob Olvera DDS [facility] PGY2 Neurosurgery Service Interval 24-hour Events/Subjective: No [...] extremities, strength 5/5 b/l wrist flex/ext, hand editor dictionary, elbow flex/ext, shoulder abduction, hip flexion, knee [...] with Neurosurgery Chief Resident. Bob Olvera DDS [facility] PGY2 Neurosurgery Service Interval 24-hour Events/Subjective: No [...] extremities, strength 5/5 b/l wrist flex/ext, hand editor dictionary, elbow flex/ext, shoulder abduction, hip flexion, knee [...] Blanco MD - 12/01/2021 12:00 [place] [address] [facility]#: [id number] PATIENT: GUILLERMINA KELSEY : 1970 DATE DICTATED: 12/01/2021 SURGERY STAFF DAILY PROGRESS NOTE DATE OF SERVICE: 12/01/2021 I saw and evaluated the patient. I discussed management with residents, DIRECTOR SYSTEMS, and PAs on the Neurosurgery team and [...] MD Staff Physician Neurosurgery Service Received in Diesel Engine Erector: 12/01/2021 10:02:46 M: /[id number] TB/MODL Susana Taylor RN - 11/30/2021 8:10 [...] 4 extremities,strength 5/5 b/l wrist flex/ext, hand editor dictionary, elbow flex/ext, shoulder abduction, hip flexion, knee [...] Shelton PA-C, 11/30/2021 6:36 PM Neurosurgery Pager [phone] or [employer] documented in this encounter Procedure Notes Chandan [...] to verify the correct patient, procedure, equipment, application support intern and site/side marked as required. Anesthesia: local [...] Tabs Take 1 tablet by mouth daily. CARETAKER RESORT med Assessment: Pertinent points to note: No changes to CARETAKER RESORT medications. I have reviewed the patient's medications for discharge and have discussed the necessary changes with the provider. Changes have been made and medication list updated and complete. Please page with any questions. Hattie Mathis PharmD 12/07/2021 16:17 For questions regarding this note, please contact pharmacist on service at PharmD Evening [facility] and [facility] ([employer]) or [phone]. If no response within needed timeframe, please contact central pharmacy via phone at [phone]. Jacquie Link MD - 12/05/2021 5:16 PM [...] on keppra and decadron and transferred to [facility] for neurosurgical evaluation. #left temporal multifocal infiltrative [...] evidence thus far for systemic malignancy with INFORMATION TECHNOLOGY MANAGER metastatic, negative CT CAP (aside from [...] stress). 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 Ramirez. Thank you for involving neurology in the care of this patient. Please do not hesitate to call with questions/concerns. General neurologypager [phone]. We will sign off, please page the team with new concerns or if laboratory values return abnormal. Cherelle Alvarez MD Neurology PGY-3 Seizure Safety: Per [place] regulations individuals are prohibited from operating a [...] brought her into a local emergency department ([facility]) that night. She was treated with keppra and steroids and subsequently transferred to [facility] for imaging findings of brain mass. Per [...] her head that had been responsive to kqlt-zfi-ecakryo medications. Does not endorse that the headache [...] improvement and is currently able to do Whis[place] (language learning software) on her phone in [...] substance use disorder who lives in a usp. 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 Has not [...] right handed and her primary language is Angolan. PAST MEDICAL HISTORY: HTN Goiter/thyroid nodules PRIOR TO ADMISSION MEDICATIONS: Medications Prior to Admission Medication Sig ??? 27-1 mg oral TABS Take 1 tablet by mouth daily. Current Facility-Administered Medications: ??? ibuprofen (MOTRIN;ADVIL) tablet 200 mg, 200 mg, Oral, q6h prn, Bob Olvera MD ??? VTE - Low Risk, , Does not apply, protocol AND VTE - Low Risk Communication, , , Once, Htatie Admas PA-C ??? acetaminophen tablet 650 mg, 650 [...] Mother with breast cancer, father with unspecified INFORMATION TECHNOLOGY MANAGER infection. REVIEW OF SYSTEMS: Complete 10-point [...] Brain mass or lesion please do with ReferBright protocol. Comparison: Brain MRI from earlier today. Technique: Thin-section susceptibility-weighted, T1-weighted, and T2-weighted MR imaging was performed of the skull after intravenous contrast administration. The images were transferred to the ReferBrightWorkstation for surgical planning. Amide proton transfer(APT)-weighted imaging [...] evidence thus far for systemic malignancy with INFORMATION TECHNOLOGY MANAGER metastatic, negative CT CAP. It is possible that sarcoidosis could have a similar presentation, so could obtain echo to assess for extra INFORMATION TECHNOLOGY MANAGER manifestations (although no pulmonary or cardiac [...] to call with questions/concerns. General neurology pager [phone]. We will continue to follow . Cherelle [...] intact Motor: Follows commands x4 extremities, 5/5 editor dictionary strength and plantar/dorsiflexion bilaterally Sensory: Sensation intact [...] Dunlap MD - 12/05/2021 12:00 [place] [address] [facility]#: [id number] PATIENT: GUILLERMINA KELSEY : 1970 DATE OF [...] The head was affixed to the David golf club head inspector. All pressure points were padded. Stealth was [...] around the edges of the tumor. The manager local drill was then used to create a [...] MD Staff Physician Surgery Service Received in Diesel Engine Erector: 12/05/2021 17:41:26 M: /[id number] AE/MODL documented in this encounter Miscellaneous Notes [...] equal, round, reactive to light. Bilateral hand pneumatic tester equal and strong, and plantar and dorsi [...] Cardiac Assessment Within Defined Limits except for: [facility] - remote telemetry Respiratory Within defined limits [...] CRANIOTOMY WITH OPEN BIOPSY WITH STEALTH - Global Online DevicesALTH MRI SCAN Completed Transferred patient due to: no longer requiring ICU care Patient Belonging 11/30/20212025 Reason for Inventory: Admission Patient or family informed of Patient Valuables and Belongings Policy (#[id number]): Policy reviewed - patient/family/designee has indicated that he/she will assume responsibility of patient valuables Transferred from Unit[facility]Bed: [facility] Transferred to Unit/Bed: [place] [address] Received By:: Susana Liz RN A: Transferred patient from [facility] to [facility] 01 at 2255, via wheelchair. Transferred [...] Cardiac Assessment Within Defined Limits except for: [facility] - bedside telemetry Lead Monitored: Lead II [...] Cardiac Assessment Within Defined Limits except for: [facility] - bedside telemetry Lead Monitored: Lead II [...] Cardiac Assessment Within Defined Limits except for: [facility] - bedside telemetry Lead Monitored: Lead II [...] Cardiac Assessment Within Defined Limits except for: [facility] - bedside telemetry Lead Monitored: Lead II [...] Cardiac Assessment Within Defined Limits except for: [facility] - bedside telemetry ECG Rhythm: normal sinus [...] Cardiac Assessment Within Defined Limits except for: [facility] - bedside telemetry ECG Rhythm: normal sinus rhythm MD Interval (sec): 0.19 QRS Interval (sec): 0.07 [...] Cardiac Assessment Within Defined Limits except for: [facility] - bedside telemetry ECG Rhythm: normal sinus [...] Arevalo MD - 12/05/2021 2:32 PM CDT [facility] Immediate Post Operative Note Note written: Day [...] Implant Name Type Inv. Item Serial No. Computer Applications Instructor Lot No. LRB No. Used Action GELFOAM(SURGIFOAM) [...] Plate STRAIGHT PLATE, 2 HOLE 421.502 SYNTHES [facility] Left 2 Implanted KATERINE HOLE COVER, 17MM 421.527 Plate KATERINE HOLE COVER, 17MM 421.527 [employer] [place] Left 1 Implanted DURA,DURAGEN 3X3IN [id number] Duragen DURA,DURAGEN 3X3IN [id number] [employer] [id number] Left 1Implanted 4MM 400.834E Screw/[place] 4MM 400.834E [employer] [place] Left 9 Implanted [...] Psychosocial Within Defined Limits Associated attestation - Nciole Navarro RN - 12/05/2021 3:51 PM CDT I have reviewed today's student nurse/technical internship's nursing documentation. Nicole Navarro RN 12/05/2021 15:50 Nursing Assessment - Efraín Cardenas RN - 12/05/2021 3:08 AM CDT Nursing Assessment Head to Toe Head to Toe Assessment Shift Summary D: A/O x4, neuro intact, no numbness/tingling reported, strong pneumatic tester/flexion. VSS, denies pain. Remains on RA, LS [...] Cardiac Assessment Within Defined Limits except for: [facility] - bedside telemetry Respiratory Within defined limits [...] PM CDT I have reviewed today's student nurse/technical internship's nursing documentation. Nicole Navarro RN 12/04/2021 15:22 [...] Cardiac Assessment Within Defined Limits except for: [facility] - bedside telemetry ECG Rhythm: normal sinus [...] 0000 until reoriented and after conversing with commercial underwriter for a short while was more [...] Shift Summary Pt arrived around 1800 from [place], [place] following a full at home last [...] are in OSTIC the results section. CYTOLOGY NON-SCIENTIFIC INFORMATICS PROJECT LEADER Routine 12/03/2021 2:48 Results for this SPECIMEN [...] POC Glucose 124 (H) 70 - 100 [facility] MAIN mg/dL [facility] - POINT OF CARE Specimen (Source) Anatomical Collection Method Collection Time Re ceived Time Location / / Volume Laterality Blood 12/06/2021 5:54 PM CDT Korin Blanco MD LABORATORY Performing Organization Address City/[facility]/ZIP Code Phon e Number [facility] - POINT OF CARE [address] [place] [address] (ABNORMAL) POC GLUCOSE (12/06/2021 11:52 AM CDT) athologist Signature POC Glucose 146 (H) 70 - 100 [facility] MAIN mg/dL [facility] - POINT OF CARE Specimen (Source) Anatomical Collection Method Collection Time Re ceived Time Location / / Volume Laterality Blood 12/06/2021 11:52 AM CDT Korin Blanco MD LABORATORY Performing Organization Address City/[facility]/ZIP Code Phon e Number [facility] - POINT OF CARE [address] [place] [id number] (ABNORMAL) PANEL BASIC METABOLIC (BMP) (12/06/2021 5:25 AM CDT) athologist Signature Sodium 133 (L) 135 - 148 [facility] LAB mEq/L Potassium 4.1 3.5 - 5.3 [facility] LAB mEq/L Chloride 100 92 - 108 [facility] LAB mEq/L CO2 23 22 - 30 [facility] LAB mEq/L AnGap 10 8 - 16 [facility] LAB mEq/L Glucose 128 (H) 70 - 100 [facility] LAB mg/dL BUN 18 6 - 20 [facility] LAB mg/dL Creatinine 0.61 0.50 - 1.00 [facility] LAB mg/dL Calcium 8.9 8.6 - 10.0 [facility] LAB mg/dL eGFR, High >120 >=60 [facility] ml/min/1.73 m2 Comment: Calculated using CKD-EPI equati on eGFR, Low 105 >=60 ml/min/1.73m2 [facility] LAB Comment: Calculated using CKD-EPI equati on Specimen Anatomical Collection Method Collection Time Receive d Time (Source) Location / / Volume Laterality Blood 12/06/2021 5:25 AM 2 5:53 CDT AM CDT Jimena Allison PA-C LABORATORY Performing Organization Address City/State/ZIP Code Phon e Number [facility] [place] [address] (ABNORMAL) CBC WITH PLATELET (12/06/2021 5:25 AM CDT) P athologist Signature WBC 18.50 (H) 4.00 - [facility] LAB 10.00 k/cmm RBC 3.88 (L) 3.90 - 5.20 [facility] m/cmm Hgb 11.3 (L) 11.5 - 15.7 [facility] g/dL Hematocrit 34.7 34.0 - 45.0 [facility] LAB % MCV 89.4 80.0 - [facility] LAB 100.0 fL MCH 29.1 25.0 - 32.0 [facility] LAB pg MCHC 32.6 31.0 - 36.0 [facility] g/dL RDW 13.4 11.5 - 14.5 [facility] LAB % Plt 301 150 - 400 [facility] k/cmm MPV 10.6 6.5 - 12.5 [facility] fL Specimen Anatomical Collection Method Collection Time Receive d Time (Source) Location / / Volume Laterality Blood 12/06/2021 5:25 AM 2 5:43 CDT AM CDT Jimena Allison PA-C LABORATORY Performing Organization Address City/State/ZIP Code Phon e Number [facility] [place] [address] [place] [address] CT HEAD NO IV CONTRAST (12/05/2021 5:59 [...] 6 mm. 3. Unchanged 3 mm of fpon-bc-sinih midli ne shift. 4. Vague hypodense masslike area left te mporoparietal junction and left thalamus better characterized on prior MRI Jimena Allison was contacted by Vignesh Fowler at 7:03PM on 12/05/21 and made aware of the above finding If you are the patient, and wish to disc uss this report with a radiologist, please call [phone] between 8 am and 4 pm on [...] the hemorrhage. Unchange d 3 mm of goks-bz-vibvv midline shift. H ypodense masslike at the [...] to the hemorrhage. Unchanged 3 mm of fayq-az-rdvgz midline shift. Hypodense masslike at the left [...] 6 mm. 3. Unchanged 3 mm of lqig-pm-tjqdt midli ne shift. 4. Vague hypodense masslike area left te mporoparietal junction and left thalamus better characterized on prior MRI Jimena Allison was contacted by Vignesh Fowler at 7:03PM on 12/05/21 and made aware of the above finding If you are the patient, and wish to disc uss this report with a radiologist, please call [phone] between 8 am and 4 pm on regular working days. I have personally reviewed the image(s) and initial interpretation, and I agree with the findings as documented by the resident/fellow. Reading Radiologist: Kinjal Jenkins Reading Resident: Vignesh Fowler Korin Blanco MD CT NEURO (ABNORMAL) POC GLUCOSE (12/05/2021 5:14 PM CDT) athologist Signature POC Glucose 130 (H) 70 - 100 [facility] mg/dL CAMPUS - POINT OF CARE Specimen (Source) Anatomical Collection Method Collection Time Re ceived Time Location / / Volume Laterality Blood 12/05/2021 5:14 PM CDT Korin Blanco MD LABORATORY Performing Organization Address City/State/ZIP Code Phon e Number [facility] - POINT OF CARE [address] [place] [address] SURGICAL PATHOLOGY (12/05/2021 3:47 PM CDT) Component Value Ref Test Analysis Performed Pathologis t Range Method Time At [facility] SURG PATH ?Surgical Pathology Report [facility] LAB FINAL Collection Date: ?12/05/2021 15:19 CDT ?Ordering Physician: ? DARINEL DUNLAP Received Date: ?12/05/2021 15:26 CDT ?Accession Number: ? [id number] ?SP Addendum Addended Ancillary Studies: Received ??on 02/05/22 from: 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 Addendum electronically signed [...] is negative for this sample (please see [id number] for full report and interpretation). Correlation with clinical in formation, morphologic findings, and other diagnostic tests is indicated. References: 1. Terell DJ, Erick RG, Ranjan KD, et al N Engl J Med. 2015;372(26):2481-98. ?Surgical Pathology Report Collection Date: ?12/05/2021 15:19 CDT ?Ordering Physician: ? DARINEL DUNLAP Received Date: ?12/05/2021 15:26 CDT ?Accession Number: ? [id number] Addended Ancillary Studies: Please see the patient's medical records for the complete sc anned report. * ??Report Electronically Signed By ??* ?? NORBERTO ACEVEDO MD ?? 01.10.2022 9:15 ?SP Addendum Addended Ancillary Studies: Received on 12/26/21 is a an cillary report from Dr. Kofi Aleman of the [facility], [facility], [address] [place] [address], [place] [address]. MGMT PROMOTER METHYLATION (Final result) RESULTS MGMT [...] Percent Methylation Ratio (PMR) following the published CoScale procedure. PMR values great er than or [...] of alkylating chemotherapy. Please see the patient's [facility] medical records for the complete scanned report. [...] Date: ?12/05/2021 15:26 CDT ?Accession Number: ? [id number] Final Diagnosis: A. 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 See comment. B. 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 See comment. Comment: [...] re port from ?Lamonte Redmond of the [facility], [address] [facility] [address], [address] [place] [address] regarding an external consultation of this case material requested by Dr. Warner. The change management consultant's diagnosis i s reflected in the final diagnosis field. Please see the complete consultation report within this patient's medical record. Clinical History: Clinical Diagnosis: Brain mass [place] 12.06.2021 12:11 Gross Description: A. ??The specimen [...] for permanent section in 1 cassette.( ? [facility]) B. ??The specimen is receive d in [...] entirely submitted in 2 cassettes.( ? sj) [place] 12.06.2021 12:11 Microscopic Description: A,B - Microscopic [...] for IDH1 R132H. Immunostains performed at [facility] show the neoplastic cells are positive for p53 (scattered) and the proliferation index ki-67 is moderately elevated, est imated at 20-30%. [place] 12.06.2021 12:11 Specimen Anatomical Collection Method Collection Time Receive d Time (Source) Location / / Volume Laterality AP SPECIMEN 12/05/2021 3:47 PM 2 3:56 CDT PM CDT Comment: Brain, left mass, biopsy Narrative This result has an attachment that is no t available. Darinel Dunlap MD LAB PATHOLOGY Performing Organization Address City/[facility]/ZIP Code Phon e Number [facility] [place] [address] TEST URINE (12/05/2021 6:36 AM CDT) athologist Signature Ur Negative Negative [facility] UPT performed [facility] at Comment: Test performed at: [facility] [address] [place] [address] Specimen Anatomical Collection Method Collection Time Receive d Time (Source) Location / / Volume Laterality Urine 12/05/2021 6:36 AM 2 6:58 CDT AM CDT Narrative [facility] - 12/05/2021 7:53 AM CDT Needs for surgery today if has had mense s in last year. Korin Blanco MD LABORATORY Performing Organization Address [facility] Phon e Number [facility] [place] [address] COVID-19 SURVEILLANCE (12/05/2021 6:30 AM CDT) [facility] Method Time Signature COVID-19 Not Detected Not Detected [facility] Comment: This assay is an RT-PCR FDA craig roved test. Specimen (Source) Anatomical Collection Method Collection Time Re ceived Time Location / / Volume Laterality Nasopharyngeal Swab 12/05/2021 6:30 12/05 AM CDT 6:31 AM CDT Narrative [facility] - 12/05/2021 7:20 AM CDT Preferred specimen is Nasopharyngeal swab Is the patient a healthcare employee: No Is the patient a [place] ([facility] [facility] [facility] Employee : No Korin Blanco MD LABORATORY Performing Organization Address City/[facility] Phon e Number [facility] [place] [address] ANTIBODY SCREEN (12/05/2021 4:58 AM CDT) athologist Signature Mónica Screen Negative [facility] Specimen Anatomical Collection Method Collection Time Receive d Time (Source) Location / / Volume Laterality Blood 12/05/2021 4:58 AM 2 5:29 CDT AM CDT Korin Blanco MD LAB TRANSFUSION SERVICES Performing Organization Address City/[facility]/ZIP Code Phon e Number [facility] [place] [address] BLOOD TYPING-ABO/RH (12/05/2021 4:58 AM CDT) athologist Signature ABORHG O NEG [facility] Specimen Anatomical Collection Method Collection Time Receive d Time (Source) Location / / Volume Laterality Blood 12/05/2021 4:58 AM 2 5:29 CDT AM CDT Korin Blanco MD LAB TRANSFUSION SERVICES Performing Organization Address City/[facility]/ZIP Code Phon e Number [facility] [place] [address] PROTHROMBIN (PT) & INR (12/05/2021 4:58 AM CDT) athologist Signature PT 11.4 9.0 - 12.5 [facility] sec INR 1.0 0.8 - 1.1 [facility] Specimen Anatomical Collection Method Collection Time Receive d Time (Source) Location / / Volume Laterality Blood 12/05/2021 4:58 AM 2 5:43 CDT AM CDT Korin Blanco MD LABORATORY Performing Organization Address City/[facility]/ZIP Code Phon e Number [facility] [place] [address] (ABNORMAL) PANEL BASIC METABOLIC (BMP) (12/05/2021 4:58 AM CDT) P athologist Signature Sodium 140 135 - 148 [facility] mEq/L Potassium 3.9 3.5 - 5.3 [facility] mEq/L Chloride 107 92 - 108 [facility] mEq/L CO2 27 22 - 30 [facility] mEq/L AnGap 6 (L) 8 - 16 [facility] mEq/L Glucose 91 70 - 100 [facility] mg/dL BUN 29 (H) 6 - 20 [facility] mg/dL Creatinine 0.84 0.50 - 1.00 [facility] mg/dL Calcium 8.7 8.6 - 10.0 [facility] mg/dL eGFR, High 93 >=60 [facility] ml/min/1.73 m2 Comment: Calculated using CKD-EPI equati on eGFR, Low 81 >=60 ml/min/1.73m2 [facility] Comment: Calculated using CKD-EPI equati on Specimen Anatomical Collection Method Collection Time Receive d Time (Source) Location / / Volume Laterality Blood 12/05/2021 4:58 AM 5:48 CDT AM CDT Korin Blanco MD LABORATORY Performing Organization Address City/State/ZIP Code Phon e Number [facility] [place] [address] CBC WITH PLTS/AUTO DIFF (12/05/2021 4:58 AM CDT) P athologist Signature WBC 7.60 4.00 - [facility] 10.00 k/cmm RBC 3.93 3.90 - [facility] 5.20 m/cmm Hgb 11.7 11.5 - [facility] 15.7 g/dL Hematocrit 36.5 34.0 - [facility] 45.0 % MCV 92.9 80.0 - [facility] 100.0 fL MCH 29.8 25.0 - [facility] 32.0 pg MCHC 32.1 31.0 - [facility] 36.0 g/dL RDW 13.8 11.5 - [facility] 14.5 % Plt 266 150 - 400 [facility] k/cmm MPV 10.8 6.5 - 12.5 [facility] fL Automated Abs 3.46 1.70 - [facility] Neutrophil 6.50 k/cmm Comment: Preliminary ANC, Final Result t o Follow Abs Immature Granulocyte 0.04 0.00 - 0.09 k/cmm [facility] Comment: The Immature Granulocyte Absolu te count contains metamyelocytes and myelocytes. Abs Neutrophil 3.46 1.70 - 6.50 k/cmm [facility] B Abs Lymphocyte 3.47 0.80 - 4.00 k/cmm [facility] B Abs Monocyte 0.41 0.20 - 1.00 k/cmm [facility] Abs Eosinophil 0.19 0.00 - 0.60 k/cmm [facility] B Abs Basophil 0.03 0.00 - 0.20 k/cmm [facility] Specimen Anatomical Collection Method Collection Time Receive d Time (Source) Location / / Volume Laterality Blood 12/05/2021 4:58 AM 5:52 CDT AM CDT Korin Blanco MD LABORATORY Performing Organization Address City/State/ZIP Code Phon e Number [facility] [place] [address] TRANSTHOR (TTE) COMPLETE WITH CONTRAST (12/04/2021 [...] Volume Laterality 12/03/2021 12:17 PM CDT [facility]ative [facility] 12/04/2021 12:00 AM CDT Report Status:Finalized Transthoracic Echocardiography Report (T TE) Demographics Patient Name ?COLLING GUILLERMINA Height ?65.51 Inches Patient Number ?[id number] ?Weig ht ?207.68 Pounds Date of ? 1970 ?? BSA ? 2.02 m^2 Age ? 51 ? Tape Number Gender ?Female ? Study Date ?12/04/2021 08:58 AM Senior Receptionist ? [facility] ?O frantz Physician ??TESFAYE LANGLEY Referring ?Interpreting ?Erick Saldana MD Physician ?Physician ? [id number] Type of Study: TTE procedure: 2D echocardiogram, M-Mode , Doppler , Color Doppler, Contrast study, ECH TRANSTHORACIC ECHO ( TTE), Myocardial Strain Imaging HR: 63 bpmBP: 118/75 mmHgPatient Status: Routine Study Location: [id number] Quality: G ood visualization Contrast Medium: Definity. [...] Signature Electronically signed by Erick Saldana MD [id number](Interpreting physician) on 2021 01:28 PM Valves Mitral [...] GUILLERMINA Height 65.51 I nches Patient Number [id number] Weight 207.68 Emerald nds Date of 1970 BSA 2.02 m^2 Age 51 Tape Number Gender Female Study Date 12/04/2021 08:5 8 AM Senior Receptionist [facility] Ordering Physician ARABELLA LANGLEY Referring Interpreting Beatriz Graham Physician Physician [id number] Type of Study: TTE procedure: 2D echocardiogram, M-Mode , Doppler , Color Doppler, Contrast study, ECH TRANSTHORACIC ECHO ( TTE), Myocardial Strain Imaging HR: 63 bpmBP: 118/75 mmHgPatient Status: Routine Study Location: [id number] Quality: G ood visualization Contrast Medium: Definity. [...] Signature Electronically signed by Erick Saldana MD [id number](Interpreting physician) on 2021 01:28 PM Valves Mitral [...] Organization Address City/State/ZIP Code Phon e Number [facility] ENCEPHALOPATHY, AUTOIMMUNE EVALUATION, SERUM (12/03/2021 7:15 PM CDT) Component Value Ref Test Analysis Performed At [facility] Range Method Time Signature Encephalopathy, See [facility] Interpretation Footnote LABORATORIES [address] [facility] Comment: No informative autoantibodies were detec anayeli in this evaluation. However, a negative result d oes not exclude autoimmune encephalopathy, idiopathic or paraneoplastic. Sensitivity and specificity of antibody testing are enhanced by testing both serum and CSF. AMB Receptor Ab Negative Negative [facility] [address] [facility] Comment: ADDITIONAL INFORMATIO N This test was developed and its performa nce characteristics determined by [facility] in a manner co nsistent with CLIA requirements. This test has not been nay ared or approved by the U.S. Food and Drug Administration. Amphiphysin AB Negative <1:[address] [facility] [address] [facility] Comment: ADDITIONAL INFORMATIO N This test was developed and its performa nce characteristics determined by [facility] in a manner co nsistent with CLIA requirements. This test has not been nay ared or approved by the U.S. Food and Drug Administration. REFERENCE RANGE: ??AMPHIPHYSIN AB <1:240 = NEGATIVE AGNA 1 Negative <1:240 titer [facility] [address] [facility] Comment: ADDITIONAL INFORMATIO N This test was developed and its performa nce characteristics determined by [facility] in a manner co nsistent with CLIA requirements. This test has not been nay ared or approved by the U.S. Food and Drug Administration. REFERENCE RANGE: ??AGNA 1 <1:240 = NEGATIVE Polina 1 Negative <1:240 titer [facility] [address] [facility] Comment: REFERENCE RANGE: POLINA 1 <1:240 = NEGATIVE POLINA 2 Negative <1:240 titer [facility] [employer] [address] [facility] Comment: ADDITIONAL INFORMATIO N This test was developed and its performa nce characteristics determined by [facility] in a manner co nsistent with CLIA requirements. This test has not been nay ared or approved by the U.S. Food and Drug Administration. REFERENCE RANGE POLINA 2 <1:240 = NEGATIVE POLINA 3 Negative <1:240 titer [facility] [address] [facility] Comment: ADDITIONAL INFORMATIO N This test was developed and its performa nce characteristics determined by [facility] in a manner co nsistent with CLIA requirements. This test has not been nay ared or approved by the U.S. Food and Drug Administration. REFERENCE RANGE: ??POLINA 3 <1:240 = NEGATIVE CASPR2-IgG CBA Negative Negative [facility] Comment: ADDITIONAL INFORMATIO N This test was developed and its performa nce characteristics determined by [facility] in a manner co nsistent with CLIA requirements. This test has not been nay ared or approved by the U.S. Food and Drug Administration. CRMP-5-IGG Negative <1:240 titer [facility] [address] [facility] Comment: ADDITIONAL INFORMATIO N This test was developed and its performa nce characteristics determined by [facility] in a manner co nsistent with CLIA requirements. This test has not been nay ared or approved by the U.S. Food and Drug Administration. REFERENCE RANGE: ??CRMP-5-IGG <1:240 = NEGATIVE DPPX Ab IFA Negative Negative [facility] Comment: ADDITIONAL INFORMATIO N This test was developed and its performa nce characteristics determined by [facility] in a manner co nsistent with CLIA requirements. This test has not been nay ared or approved by the U.S. Food and Drug Administration. ESDRAS B Receptor Ab Negative Negative [facility] [employer] [address] [facility] Comment: ADDITIONAL INFORMATIO N This test was developed and its performa nce characteristics determined by [facility] in a manner co nsistent with CLIA requirements. This test has not been nay ared or approved by the U.S. Food and Drug Administration. GAD65 Ab Assay 0.00 <=0.02 nmol/L [facility] [address] [facility] Comment: ADDITIONAL INFORMATIO N This test was developed and its performa nce characteristics determined by [facility] in a manner co nsistent with CLIA requirements. This test has not been nay ared or approved by the U.S. Food and Drug Administration. GFAP IFA Negative Negative [facility] [address] [facility] Comment: ADDITIONAL INFORMATIO N This test was developed and its performa nce characteristics determined by [facility] in a manner co nsistent with CLIA requirements. This test has not been nay ared or approved by the U.S. Food and Drug Administration. IgLONS IFA Negative Negative [facility] [address] [facility] Comment: ADDITIONAL INFORMATIO N This test was developed and its performa nce characteristics determined by [facility] in a manner co nsistent with CLIA requirements. This test has not been nay ared or approved by the U.S. Food and Drug Administration. LGI1-IgG CBA Negative Negative [facility] [employer] [address] [facility] Comment: ADDITIONAL INFORMATIO N This test was developed and its performa nce characteristics determined by [facility] in a manner co nsistent with CLIA requirements. This test has not been nay ared or approved by the U.S. Food and Drug Administration. mGluR1 Ab IFA Negative Negative [facility] [address] [facility] Comment: ADDITIONAL INFORMATIO N This test was developed and its performa nce characteristics determined by [facility] in a manner co nsistent with CLIA requirements. This test has not been nay ared or approved by the U.S. Food and Drug Administration. NMDA R Ab Negative Negative [facility] [address] [facility] Comment: ADDITIONAL INFORMATIO N This test was developed and its performa nce characteristics determined by [facility] in a manner co nsistent with CLIA requirements. This test has not been nay ared or approved by the U.S. Food and Drug Administration. NIF IFA Negative Negative [facility] [address] C[facility]TR Comment: ADDITIONAL INFORMATIO N This test was developed and its performa nce characteristics determined by [facility] in a manner co nsistent with CLIA requirements. This test has not been nay ared or approved by the U.S. Food and Drug Administration. COOKING CHEF 1 Negative <1:240 titer [facility] [address] Comment: ADDITIONAL INFORMATIO N This test was developed and its performa nce characteristics determined by [facility] in a manner co nsistent with CLIA requirements. This test has not been nay ared or approved by the U.S. Food and Drug Administration. REFERENCE RANGE: ??COOKING CHEF 1 <1:240 = NEGATIVE COOKING CHEF 2 Negative <1:240 titer [facility] Comment: ADDITIONAL INFORMATIO N This test was developed and its performa nce characteristics determined by [facility] in a manner co nsistent with CLIA requirements. This test has not been nay ared or approved by the U.S. Food and Drug Administration. REFERENCE RANGE: ??COOKING CHEF 2 <1:240 = NEGATIVE COOKING CHEF TR Negative <1:240 titer [facility] Comment: ADDITIONAL INFORMATIO N This test was developed and its performa nce characteristics determined by [facility] in a manner co nsistent with CLIA requirements. This test has not been nay ared or approved by the U.S. Food and Drug Administration. Test Performed by: [address] [address] [employer] Pump Operator: Chintan Coronado M.D. Ph. D.; CLIA# [id number] REFERENCE RANGE: ??COOKING CHEF TR <1:240 = NEGATIVE Specimen Anatomical Collection Method Collection Time Receive d Time (Source) Location / / Volume Laterality Serum 12/03/2021 7:15 PM 7:01 CDT [address]T [address] [facility]TR - 12/13/2021 5:20 PM CDT Encephalopathy, Autoimmune Evaluation, Serum Name of test: ENS2 Korin Blanco MD LABORATORY Performing Organization Address City/State/ZIP Code Phon e Number [facility] [address] [place], [place] [address] [facility] C[facility]TR INTERLEUKIN 2 RECEPTOR (CD25) SOLUBLE (12/03/2021 7:15 PM CDT) [facility] Method Time Signature Interleukin 2 332.1 175.3 - [facility] Receptor (CD25) 858.2 LABORATORIES Soluble pg/mL Comment: INTERPRETIVE INFORMATION: Cytokines Results are used to understand the patho physiology of immune, infectious, or inflammatory diso rders, or may be used for research purposes. This test was developed and its performa nce characteristics determined by [facility]. It has not been cleared or approved by the [place] Food and Drug Adminis tration. This test was performed in a CLIA certified labora tory and is intended for clinical purposes. Performed By: [facility] [address] [place] [address] Director Medical Writing: Hortensia Lemon MD Specimen Anatomical Collection Method Collection Time Receive d Time (Source) Location / / Volume Laterality Serum 12/03/2021 7:15 PM 2 7:01 CDT AM CDT Korin Blanco MD LABORATORY Performing Organization Address City/State/ZIP Code Phon e Number [facility] [place] [address] [place] [address] QUANTIFERON-TB GOLD PLUS (12/03/2021 7:15 PM CDT) [facility] Method Time Signature QuantiFERON TB Negative Negative [facility] Gold Plus QFT TB 1 -0.01 [facility] QFT TB 2 -0.01 [facility] QFT TB MITOGEN 9.97 [facility] QFT NIL 0.03 [facility] Specimen Anatomical Collection Method Collection Time Receive d Time (Source) Location / / Volume Laterality Blood 12/03/2021 7:15 PM 8:57 CDT PM CDT Korin Blanco MD LABORATORY Performing Organization Address City/State/ZIP Code Phon e Number [facility] [place] [address] XR NEEDLE PLACEMENT - SPINE (12/03/2021 [...] verify the correct patient, procedure, equipmen t, application support intern and site/side marked as required. Anesthesia: local [...] para median. Chandan Chu MD PROCEDURES CYTOLOGY NON-SCIENTIFIC INFORMATICS PROJECT LEADER SPECIMEN (12/03/2021 2:48 PM CDT) [facility] gist Method Time Signature Cytology Refrigerated [facility] Non-Security Patrol Officer Specimen Specimen Anatomical Collection Method Collection Time Receive d Time (Source) Location / / Volume Laterality CSF 12/03/2021 2:48 PM 2 3:17 CDT PM CDT Comment: CYTOLOGY NON-SCIENTIFIC INFORMATICS PROJECT LEADER SPECIMEN Narrative [facility] - 12/03/2021 3:17 PM CDT Both orders are required to process Cytology/Non-SCIENTIFIC INFORMATICS PROJECT LEADER panel. Please do not discontinue either order. 1. Cytology Non-SCIENTIFIC INFORMATICS PROJECT LEADER 2. Cytology Non-SCIENTIFIC INFORMATICS PROJECT LEADER Specimen . Korin Blanco MD LAB PATHOLOGY Performing Organization Address City/State/ZIP Code Phon e Number [facility] [place] [address] [place] [address] MISCELLANEOUS LAB (12/03/2021 2:48 PM CDT) [facility] Method Time Signature [facility] Sendout See Comment See Comment MISCELLANEOUS REFERENCE LABORATORY Comment: Meningitis/Encephalitis Panel by PCR [facility] test code 5380121 Escherichia coli K1 by PCR Not Detected [...] MISCELLANEOUS REFERENCE LABORATORY - 7:29 AM CDT [place] [facility] Meningitis/Encephalitis Pathogen Panel, PCR, Spinal Fluid Reference Lab: [facility] Test Name: ABOVE Reference Lab test code: [id number] Reflex testing available (Y/N): N Expected TAT: 2 DAYS Temp: ??R Korin Blanco MD LABORATORY Performing Organization Address City/State/ZIP Code Phon e Number MISCELLANEOUS REFERENCE LABORATORY MISCELLANEOUS REFERENCE See Comment for Lab LABORATORY Address CSF CULTURE:INCLUDES GRAM STAIN (12/03/2021 2:48 PM CDT) [facility] Method Time Signature Final Report No growth. [facility] Gram Stain No PMN's seen. [facility] Report No organisms seen. Specimen Anatomical Collection Method Collection Time Receive d Time (Source) Location / / Volume Laterality CSF 12/03/2021 2:48 PM 2 3:26 CDT PM CDT Narrative [facility] - 12/06/2021 10:02 AM CDT Was CSF taken from a shunt: No Korin Blanco MD LAB MICROBIOLOGY Performing Organization Address City/[facility]/ZIP Code Phon e Number [facility] [place] [address] BODY FLUID CELL COUNT/DIFF (12/03/2021 2:48 PM CDT) [facility] Method Time Signature Fluid Type CF CSF [facility] Volume CF 20 mL [facility] Appearance CF Clear [facility] Color bf Colorless [facility] Tube # CSF Tube 4 [facility] RBC CSF <1,000 cells/ul [facility] Nuc Ct CSF 1 cells/ul [facility] Neutrophil CSF 0 % [facility] Lymphocytes CSF 100 % [facility] Specimen Anatomical Collection Method Collection Time Receive d Time (Source) Location / / Volume Laterality CSF 12/03/2021 2:48 PM 2 3:17 CDT PM CDT Korin Blnaco MD LABORATORY Performing Organization Address [facility] Code Phon e Number [facility] [place] [address] OLIGOCLONAL BANDS CSF (12/03/2021 2:48 PM CDT) [facility] Signature Oligoc Band CSF Negative [facility] [...] will have a negative result. Performed By: [facility] [address] [place] [address] Director Medical Writing: Hortensia Lemon MD Specimen Anatomical Collection Method Collection Time Receive d Time (Source) Location / / Volume Laterality CSF 12/03/2021 2:48 PM 2 3:17 CDT PM CDT Korin Blanco MD LABORATORY Performing Organization Address City/[facility]/ZIP Code Phon e Number [email or web address] [address] [place] [address] PROTEIN, CSF (12/03/2021 2:48 PM CDT) athologist Signature Protein Total 34 15 - 45 [facility] CSF mg/dL Specimen Anatomical Collection Method Collection Time Receive d Time (Source) Location / / Volume Laterality CSF 12/03/2021 2:48 PM 2 3:17 CDT PM CDT Korin Blanco MD LABORATORY Performing Organization Address City/[facility]/ZIP Code Phon e Number [facility] [place] [place] [address] (ABNORMAL) GLUCOSE, CSF (12/03/2021 2:48 PM CDT) athologist Signature Glucose CSF 82 (H) 40 - 70 [facility] mg/dL Comment: GLUCOSE CSF REFERENCE RANGES: 60% - 70% of the plasma level at the nisha e the spinal tap is performed Specimen Anatomical Collection Method Collection Time Receive d Time (Source) Location / / Volume Laterality CSF 12/03/2021 2:48 PM 2 3:17 CDT PM CDT Korin Blanco MD LABORATORY Performing Organization Address City/[facility]/ZIP Code Phon e Number [facility] [place] [place] [address] FLOW CYTOMETRY (12/03/2021 1:10 PM CDT) Component Value Ref Test Analysis Performed At [facility] gist Range Method Time Signature FC Report ?Flow Cytometry Report [facility] Collection Date: ?12/03/2021 13:10 CDT ?Ordering Physician: ? KORIN BLANCO Received Date: ?12/03/2021 16:18 CDT ?Accession Number: ? [id number] ?FC Final Report Clinical History: Clinical history per [facility] medical records: 51-year-old female with brain lesions. [...] and the cell populations were evaluated using Vidatronic analysis software. The total cell count in thi s study was 1/microliter after lysis of red cells. Cell viability was 100%. This test was developed and its performance characteristics determined by the ? [place] ?? [facility] Flow Cytometry Laboratory. ??It has not [...] Blanco MD LAB PATHOLOGY Performing Organization Address City/[facility]/ZIP Code Phon e Number [facility] [place] [place] [address] CYTOLOGY NON-SCIENTIFIC INFORMATICS PROJECT LEADER (12/03/2021 1:10 PM CDT) Component Value Ref Test Analysis Performed At [facility] Range Method Time Signature Non Security Patrol Officer ?Non Security Patrol Officer Report [facility] Report Collection Date: ?12/03/2021 13:10 CDT ?Ordering Physician: ? KORIN BLANCO Received Date: ?12/04/2021 11:48 CDT ?Accession Number: ? [id number] ?Non Gynecologic Cytology Final Report Specimen Type: Cerebral Spinal Fluid Final Diagnosis: Negative for malignant cells. * ??Report Electronically Signed By ??* ?? Renetta Warner M.D. ?? Screening Performed By: ?? ALYSE Hill(ASCP) ?? [facility] 12.05.2021 15:22 Clinical History & Gross [...] Blanco MD LAB PATHOLOGY Performing Organization Address City/[facility]/ZIP Code Phon e Number [facility] [place], [place] [address] [place] [address] HIV COMBO (12/03/2021 6:41 AM CDT) [facility] Method Time Signature HIV Nonreactive Nonreactive [facility] Antigen-Antib shannan Comment: Performance characteristics hav e not been established with this test on patients less than 2 years of age. Specimen Anatomical Collection Method Collection Time Receive d Time (Source) Location / / Volume Laterality Blood 12/03/2021 6:41 AM 2 7:17 CDT AM CDT Korin Blanco MD LABORATORY Performing Organization Address City/[facility]/ZIP Code Phon e Number [facility] [place] [place] [address] HEPATITIS B SURFACE ANTIGEN (12/03/2021 6:41 AM CDT) [facility] Method Time Signature HBV Surface Nonreactive Nonreactive [facility] Ag Specimen Anatomical Collection Method Collection Time Receive d Time (Source) Location / / Volume Laterality Blood 12/03/2021 6:41 AM 2 7:17 CDT AM CDT Korin Blanco MD LABORATORY Performing Organization Address City/[facility]/ZIP Code Phon e Number [facility] [place] [address] HEPATITIS C ANTIBODY WITH CONDITIONAL PCR (12/03/2021 6:41 AM CDT) Analysis Performed At Path logist Time Signature Hep C Mónica Nonreactive Nonreactive [facility] Comment: Performance characteristics hav e not been established with this test on patients less than 10 years of age. Specimen Anatomical Collection Method Collection Time Receive d Time (Source) Location / / Volume Laterality Blood 12/03/2021 6:41 AM 2 7:17 CDT AM CDT Korin Blanco MD LABORATORY Performing Organization Address City/[facility]/ZIP Code Phon e Number [facility] [place] [address] HEPATITIS B SURFACE ANTIBODY (12/03/2021 6:41 AM CDT) P athologist Signature HBV Surface Reactive [facility] Mónica Comment: Reactive implies immunity. Specimen Anatomical Collection Method Collection Time Receive d Time (Source) Location / / Volume Laterality Blood 12/03/2021 6:41 AM 2 7:17 CDT AM CDT Korin Blanco MD LABORATORY Performing Organization Address City/State/ZIP Code Phon e Number [facility] [place] [address] CHEST/ABD/PELVIS W/IV CONT (12/01/2021 9:13 [...] AM CDT) athologist Signature Mónica Screen Negative [facility] Specimen Anatomical Collection Method Collection Time Receive d Time (Source) Location / / Volume Laterality Blood 12/01/2021 12:28 12/01/2021 AM CDT 12:55 AM CDT Hattie Adams PA-C LAB TRANSFUSION SERVICES Performing Organization Address City/[facility] Phon e Number [facility] [place] [address] BLOOD TYPING-ABO/RH (12/01/2021 12:28 AM CDT) athologist Signature ABORHG O NEG [facility] Specimen Anatomical Collection Method Collection Time Receive d Time (Source) Location / / Volume Laterality Blood 12/01/2021 12:28 12/01/2021 AM CDT 12:55 AM CDT Hattie ANDREC LAB TRANSFUSION SERVICES Performing Organization Address City/[facility]/ZIP Code Phon e Number [facility] [place] [address] PTT (APTT) (12/01/2021 12:28 AM CDT) athologist Signature APTT 34.2 25.0 - 37.0 [facility] sec Specimen Anatomical Collection Method Collection Time Receive d Time (Source) Location / / Volume Laterality Blood 12/01/2021 12:28 12/01/2021 1:00 AM CDT AM CDT Hattie ANDREC LABORATORY Performing Organization Address City/State/ZIP Code Phon e Number [facility] [place] [address] PROTHROMBIN (PT) & INR (12/01/2021 12:28 AM CDT) P athologist Signature PT 12.0 9.0 - 12.5 [facility] sec INR 1.0 0.8 - 1.1 [facility] Specimen Anatomical Collection Method Collection Time Receive d Time (Source) Location / / Volume Laterality Blood 12/01/2021 12:28 12/01/2021 1:00 AM CDT AM CDT Hattie Adams PA-C LABORATORY Performing Organization Address [facility] Phon e Number [facility] [place] [address] (ABNORMAL) PANEL BASIC METABOLIC (BMP) (12/01/2021 12:28 AM CDT) athologist Signature CO2 21 (L) 22 - 30 [facility] mEq/L Glucose 111 (H) 70 - 100 [facility] mg/dL BUN 10 6 - 20 [facility] mg/dL Creatinine 0.62 0.50 - 1.00 [facility] mg/dL Calcium 8.6 8.6 - 10.0 [facility] mg/dL eGFR, High >120 >=60 [facility] ml/min/1.73 m2 Comment: Calculated using CKD-EPI equati on Sodium 139 135 - 148 mEq/L [facility] Potassium 4.3 3.5 - 5.3 mEq/L [facility] Chloride 108 92 - 108 mEq/L [facility] eGFR, Low 105 >=60 ml/min/1.73m2 [facility] Comment: Calculated using CKD-EPI equati on AnGap 10 8 - 16 mEq/L [facility] Specimen Anatomical Collection Method Collection Time Receive d Time (Source) Location / / Volume Laterality Blood 12/01/2021 12:28 12/01/2021 1:00 AM CDT AM CDT Hattie Adams PA-C LABORATORY Performing Organization Address City/[facility]/ZIP Code Phon e Number [facility] [place] [address] (ABNORMAL) CBC WITH PLATELET (12/01/2021 12:28 AM CDT) P athologist Signature WBC 7.51 4.00 - [facility] 10.00 k/cmm RBC 3.74 (L) 3.90 - 5.20 [facility] m/cmm Hgb 11.2 (L) 11.5 - 15.7 [facility] g/dL Hematocrit 34.8 34.0 - 45.0 [facility] % MCV 93.0 80.0 - [facility] 100.0 fL MCH 29.9 25.0 - 32.0 [facility] pg MCHC 32.2 31.0 - 36.0 [facility] g/dL RDW 13.8 11.5 - 14.5 [facility] % Plt 271 150 - 400 [facility] k/cmm MPV 10.9 6.5 - 12.5 [facility] fL Specimen Anatomical Collection Method Collection Time Receive d Time (Source) Location / / Volume Laterality Blood 12/01/2021 12:28 12/01/2021 1:00 AM CDT AM CDT Hattie Adams PA-C LABORATORY Performing Organization Address City/State/ZIP Code Phon e Number [facility] [place] [address] MR BRAIN W/O + WITH CONTRAST [...] wi th the images transferred to the [employer] Workstation for surgical planning. Amide proton transfer(APT)-weighted [...] abnormally increased APT signal is evident. Trace aiiy-bf-ukgkg midline shift withou t herniation. No hydrocephalus [...] gadolinium, with the images transferred to the [employer] Workstation f or surgical planning. Amide proton [...] abnormally increased APT signal is evident. Trace xflx-dh-jgjco midline shift withou t herniation. No hydrocephalus [...] Fri12/05/21 at 1504, Until Fri12/05/21 at 1713 [place] MED REC REVIEW BY PHARMACY Discharge Date: [...] comment) - Comment: says was removed by COLLECTOR OF AQUARIUM SPECIMENS prior to patient arriving in unit.)2339 (Given [...]
--- OUTSIDE RECORDS SUMMARY | 2022-06-19 11:34 | XMS_ITS | Encounter Summary ---
:1970 Author Organization [place] Address [address] [place] [address]. [place] [address] Care Team Providers Name Role Phone No Ref-Primary, Physician Primary Care Provider [phone] Encounter Details Date Type Department Care Team Description 12/24/2021 Tumor Conference [facility] Tumor Conference Virtual Scheduling [address] [place] [address] [phone] Social History Tobacco Use Types [...] on filedocumented in this encounter Care Teams Border Police Relationship Specialty Start Date End Date No Ref-Primary, Physician PCP - General 12/19/21 documented as of this encounter
--- OUTSIDE RECORDS SUMMARY | 2022-06-19 11:34 | XMS_ITS | Encounter Summary ---
:1970 Author Organization [place] Address [address] [place] [address] Care Team Providers Name Role Phone No Ref-Primary, Physician Primary Care Provider [phone] Reason for Referral Consultation (Routine: Next available opening) - Pending Review Specialty Diagnoses / Procedures Referred By Contact Refer red To Contact Diagnoses Astrocytoma (H) Shelbie Ackerman MD [address] [place] [address] 2105 5 Referral ID Status Reason Start Date Expiration Date Visits V isits Requested Authorized [id number] Pending 12/24/2021 12/24/2022 1 1 Review Reason for Visit Reason Comments Oncology Clinic Visit Astrocytoma Consultation (Routine) - Pending Review Specialty Diagnoses / Procedures Referred By Contact Refer red To Contact Medical Oncology Diagnoses Astrocytoma (H) Shelbie Ackerman MD [address] [place] [address] 8932 5 Referral ID Status Reason Start Date Expiration Date Visits V isits Requested Authorized [id number] Pending 12/19/2021 12/19/2022 1 1 Review Encounter Details Date Type Department Care Team Description 12/24/2021 Oncology Visit [facility] Shelbie Ackerman Chemo therapy-induced nausea and vomiting (Primary Dx[facility]oma (H); Clinic [address] [place] [address] High risk for chemotherapy-induced infec tious complication; [address] [place] [address] Antineo plastic chemotherapy induced pancytopenia (H); [place] [address] Screening for viral disease; [place], [place] [phone] 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 NEURO-ONCOLOGY INITIAL VISIT December 24, 2021 CHIEF COMPLAINT: Ms. 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 Referral to radiation oncology at [facility] for discussion about the use of radiation. [...] not needed today. Pharmacy name entered into [facility]: [facility] [address] [place] [address] Clinical concerns: none Chiquita Bernard CMA documented [...] (H) documented in this encounter Care Teams Key Cutter Relationship Specialty Start Date End Date No Ref-Primary, Physician PCP - General 12/19/21 documented as of this encounter
--- OUTSIDE RECORDS SUMMARY | 2022-06-19 11:34 | XMS_ITS | Encounter Summary ---
:1970 Author Organization [place] Address [address] [place] [address] Care Team Providers Name Role Phone No Ref-Primary, Physician Primary Care Provider [phone] Reason for Visit Reason Comments *-*INCOMING RECORDS*-* Encounter Details Date Type Department Care Team Description 12/20/2021 Documentation Only [facility] Provider, Generic *-*INCOMING [facility] External Data RECORDS*-* Clinic [address] [place] [phone] Social History Tobacco Use Types Packs/Day [...] CE, image request sent to [place] and [facility] documented in this encounter Plan of Treatment Not on filedocumented as of this encounter Visit Diagnoses Not on filedocumented in this encounter Care Teams Button Sewing Machine Operator Relationship Specialty Start Date End Date No Ref-Primary, Physician PCP - General 12/19/21 documented as of this encounter
--- OUTSIDE RECORDS SUMMARY | 2022-06-19 11:34 | XMS_ITS | Encounter Summary ---
:1970 Author Organization [place] Address [address] [place] [address] Care Team Providers Name Role Phone No Ref-Primary, Physician Primary Care Provider [phone] Shelbie Ackerman MD Unavailable [phone] Reason for Visit Reason Onset Date Comments Erroneous encounter-disregard 12/31/2021 Encounter Details Date Type Department Care Team Description 12/31/2021 Telephone [facility] Hattie Kellyus [facility] encounter-disregard [address] [place] [phone] Social History Tobacco Use Types Packs/Day [...] on filedocumented in this encounter Care Teams Storeroom Attendant Relationship Specialty Start Date End Date No Ref-Primary, Physician PCP - General 12/19/21 Shelbie Ackerman, Assigned Neuroscience 2 MD Provider [address] [place] [address] documented as of this encounter
--- OUTSIDE RECORDS SUMMARY | 2022-06-19 11:34 | XMS_ITS | Encounter Summary ---
:1970 Author Organization [place] Address [address] [place] [address] Care Team Providers Name Role Phone No Ref-Primary, Physician Primary Care Provider [phone] Shelbie Ackerman MD Unavailable [phone] Reason for Visit Reason Onset Date Comments Prior Auth - Medication 12/31/2021 Erroneous encounter-disregard 12/31/2021 Encounter Details Date Type Department Care Team Description 12/31/2021 Telephone [facility] Hattie Kelly Prior Auth - [facility] Medication; Erroneous [address] [facility] [place] [address] Social History Tobacco Use Types [...] on filedocumented in this encounter Care Teams Technology Internship Relationship Specialty Start Date End Date No Ref-Primary, Physician PCP - General 12/19/21 Shelbie Ackerman, Assigned Neuroscience 2 MD Provider [address] [place] [address] documented as of this encounter
--- OUTSIDE RECORDS SUMMARY | 2022-06-19 11:34 | XMS_ITS ---
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 temozolomid e (TEMODAR) capsule 160 mg Past Plans No past plan information found. Radiation Treatments No radiation treatments are documented [facility]. Treatments may have been administered in another system.
--- OUTSIDE RECORDS SUMMARY | 2022-06-19 11:34 | XMS_ITS | Encounter Summary ---
:1970 Author Organization [facility] Address [address] [place], [place] [address]. [place] [address] Phone Care Team Providers Name Role Phone Unavailable Primary Care Provider Unavailable Encounter Details Date Type Department Care Team Description 11/30/2021 Orders Only [facility] Film Room Provider, Outside Referral of patient [facility] OUTSIDE PROVIDER (Primary Dx) [place], [place] Radiology Department [address] [place] [address] [address] Social History Tobacco Use Types [...] Received Time / Laterality Volume Narrative Dummy, Hqpu-Sgabfr-Riooghobi - 2 3:18 PM CDT Outside Film Only Outside Provider OUTSIDE FILMS CT HEAD OUTSIDE FILMS (11/29/2021 10:37 PM CDT) Specimen (Source) Anatomical Location Collection Method / Collectio n Time Received Time / Laterality Volume Narrative Dummy, Llad-Clfpnt-Ccbsdlbsb - 2 3:19 PM CDT Outside Film Only Outside Provider OUTSIDE FILMS CT HEAD OUTSIDE FILMS (11/29/2021 10:17 PM CDT) Specimen (Source) Anatomical Location Collection Method / Collectio n Time Received Time / Laterality Volume Narrative Dummy, Iuxs-Mmaszs-Rybfhhvpf - 2 3:19 PM CDT Outside Film Only Outside Provider OUTSIDE FILMS documented in this encounter Visit Diagnoses Diagnosis Referral of patient - Primary Referral of patient without examination or treatment documented in this encounter
--- OUTSIDE RECORDS SUMMARY | 2022-06-19 11:34 | XMS_ITS | Encounter Summary ---
:1970 Author Organization [place] Address [address] [place] [address] Care Team Providers Name Role Phone No Ref-Primary, Physician Primary Care Provider [phone] Reason for Referral Consultation (Routine) - Pending Review Specialty Diagnoses / Procedures Referred By Contact Refer red To Contact Medical Oncology Diagnoses Astrocytoma (H) Shelbie Ackerman MD [address] [place] [address] 5 Referral ID Status Reason Start Date Expiration Date Visits V isits Requested Authorized [id number] Pending 12/19/2021 12/19/2022 1 1 Review Encounter Details Date Type Department Care Team Description 12/19/2021 Transcribe Orders [facility] Shelbie Ackerman As trocytoma (H) [facility] MD Keesha (Primary Dx) Clinic [address] [place] [address] [place], [place] [phone] (Work) [phone] Social History Tobacco Use Types Packs/Day Years [...] site documented in this encounter Care Teams Cytology Laboratory Manager Relationship Specialty Start Date End Date No Ref-Primary, Physician PCP - General 12/19/21 documented as of this encounter
--- OUTSIDE RECORDS SUMMARY | 2022-06-19 11:34 | XMS_ITS | Encounter Summary ---
:1970 Author Organization [place] Address [address] [place] [address] Care Team Providers Name Role Phone No Ref-Primary, Physician Primary Care Provider [phone] Encounter Details Date Type Department Care [...] on filedocumented in this encounter Care Teams Pairer Relationship Specialty Start Date End Date No Ref-Primary, Physician PCP - General 12/19/21 documented as of this encounter
--- OUTSIDE RECORDS SUMMARY | 2022-06-19 11:34 | XMS_ITS | Encounter Summary ---
:1970 Author Organization [place] Address [address] [place] [address] Care Team Providers Name Role Phone No Ref-Primary, Physician Primary Care Provider Encounter Details Date Type [...] on filedocumented in this encounter Care Teams Jeep Mechanic Relationship Specialty Start Date End Date No Ref-Primary, Physician PCP - General 12/19/21 documented as of this encounter
--- OUTSIDE RECORDS SUMMARY | 2022-06-19 11:34 | XMS_ITS | Encounter Summary ---
:1970 Author Organization [facility] Address [address] [place] [address] Phone Care Team Providers Name Role Phone [...]
--- OUTSIDE RECORDS SUMMARY | 2022-06-19 11:34 | XMS_ITS | Encounter Summary ---
:1970 Author Organization [facility] Address [address] [place] [address] Care Team Providers Name Role Phone No Ref-Primary, Physician Primary Care Provider [phone] Encounter Details Date Type Department Care Team [...] on filedocumented in this encounter Care Teams Senior Linux Systems Administrator Relationship Specialty Start Date End Date No Ref-Primary, Physician PCP - General 12/19/21 documented as of this encounter
--- OUTSIDE RECORDS SUMMARY | 2022-06-19 11:34 | XMS_ITS | Encounter Summary ---
:1970 Author Organization [place] Address [address] [place] [address] Care Team Providers Name Role Phone No Ref-Primary, Physician Primary Care Provider [phone] Encounter Details Date Type Department Care Team Description 12/25/2021 [facility] Astrocytoma (H) (Primary Dx) [facility] [address] [phone] Social History Tobacco Use Types Packs/Day [...] procedur e are in the results section. LARUE MISCELLANEOUS Routine 12/25/2021 4:26 PM Astrocytoma (H) Results for this TEST CDT procedure are i n the results section. documented in this encounter Results NONCP: [place] Miscellaneous Test (12/25/2021 4:26 PM CDT) athologist Signature [place] Result SEE NOTE 01/11/[address] 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 ?The following CLINICALLY RELEVANT VARIANTS were identified: ?Gene: TERT ?DNA Change: c.-124C>T (also known as C228T) ?Gene: CHEK2 ?DNA Change: c.1100del ?Amino Acid Change: p.V664Gqy*15 (T dp587Fudqf*15) ?Gene: LZTR1 ?DNA Change: c.27dup ?Amino Acid Change: p.Q10Afs*24 (Gl q26Aahxc*24) ?Gene: SETD2 ?DNA Change: c.1748_1751del ?Amino Acid Change: p.X245Vit*17 (L dh433Rqgkq*17) ?The following VARIANTS OF UNCERTAI N SIGNIFICANCE were ?identified: ?Gene: CIC ?DNA Change: c.4627A>G ?Amino Acid Change: p.E4393Z (Thr15 43Ala) ?Gene: ARID2 ?DNA Change: c.3202C>T ?Amino Acid Change: p.W9817J (Arg10 68Cys) ?Gene: GLI2 ?DNA Change: c.4464G>T ?Amino Acid Change: p.O2385S (Leu14 88Phe) ?NO reportable SEQUENCE VARIANTS we re identified involving ?the remaining tested genes, includ ing IDH1, IDH2, H3-3A ?(previously H3F3A), ATRX, and TP53 . ?FUSION testing FAILED after multip le attempts due to ?insufficient amplifiable RNA. Plea se send additional ?formalin fixed material if testing is still desired. Refer ?to [employer] ([place]tero test I D NONCP) or call [...] ?REFERENCES ?1. cancer-beta.jaden.ac.uk/cosmic ; Nucleic Acids Res. 2016 ?Aug 28;45(D1):C423-A488 (PMID 93776 578) ?2. Proc Natl Acad Sci U S A. Nov;110(15):6021-6 ?(PMID 64624243) ?3. Acta Neuropathol. Jul 2013;126( 6):907-15 (PMID 67868558) ?4. Acta Neuropathol. Oct 24 2017; (PMID 47929693) ?5. Mol Cancer Res. Nov 2015;14(4): 315-23 (PMID 48258136) ?6. Science. Oct 16 2012;339(3427): 959-61 (PMID 16300770) ?7. Science. Oct 16 2012;339(1834): 957-9 (PMID 59418363) ?8. Eur J Cancer. December 2014;51(8):96 9-76 (PMID 53318835) ?9. Cell. Sep 21 2016;164(3):550-63 (PMID 83006062) ?10. Acta Neuropathol. Jul 2013;126 (6):931-7 (PMID 03269664) ?11. Cell. Jun 03 2013;155(2):462-7 7 (PMID 42984528) ?12. N Engl J Med. Feb 16 2015;372( 26):2481-98 (PMID ?09615967) ?13. N Engl J Med. Feb 16 2015;372( 26):2499-508 (PMID ?27940745) ?14. Acta Neuropathol. Jan 2017;133 (6):1001-16 (PMID ?28909670) ?15. Acta Neuropathol. May 20 2018; (PMID 15869147) ?ASSOCIATIONS BETWEEN CHEK2 MUTATIO NS AND DIFFUSE GLIOMAS ?Estimated somatic mutation frequen cy data for CHEK2 gene in ?diffuse gliomas are not available (1). CHEK2 encodes a ?serine/threonine-protein kinase th at functions as a ?transducer kinase required for DNA damage checkpoint ?response (2, 3). CHEK2 functions a s a tumor suppressor and ?inactivation through xiib-df-aisnx ion mutations results in ?genome instability and contributes to tumorigenesis (4, 5). ?Germline (i.e. constitutional) JEIMY K2 mutations are ?associated with increased risk for development of some ?tumor types including breast, pros barrett and colorectal ?cancer (6). The p.M051Dfg*15 (c.11 00del) alteration is ?predicted to result [...] note, the variant frequency at which the p.K098Nil*15 ?(c.1100del) alteration was identif ied raises the ?possibility that this mutation may be germline rather than ?somatic in origin. This test does not distinguish between ?germline and somatic alterations. Consider follow-up ?germline testing on a blood sample in conjunction with ?genetic counseling as, if germline in origin, the ?p.B386Iio*15 (c.1100del) mutation may indicate increased ?risk for certain tumor types and w arrant appropriate ?screening procedures and/or prophy lactic measure. ?Currently, there are no known clin ically approved therapies ?that specifically target CHEK2 mut ations. ?REFERENCES ?1. cbioportal.org (Version 1.5.1); Cancer discov. ?2012;2(5):401-4 (PMID 28511728); S ci Signal. ?2012;6(269):pl1 (PMID 13871419) ?2. Zoë Rev Cancer. Jul 2007;7(12): 925-36 (PMID 46332612) ?3. J Mol Cell Biol. Jul 2014;6(6): 442-57 (PMID 32010225) ?4. Zoë Cell Biol. December 2009;12(5):4 92-9 (PMID 11733895) ?5. Cancer Cell. Aug 07 2010;18(6): 619-29 (PMID 34328938) ?6. Am J Hum Tori. Jul 2004;75(6): 1131-5 (PMID 19845189) ?7. Cancer Res. May 09 2006;66(18): 5627-79 (PMID 88726884) ?8. cancer-beta.jaden.ac.uk/[employer] ; Nucleic Acids Res. 2017 ?Aug 28;45(D1):P853-I132 (PMID 60529 578) ?9. Am J Hum Tori. Mar 2002;71(2): 432-8 (PMID 87756525) ?10. Acta Neuropathol. December 2012;125 (5):659-69 (PMID 91535155) ?ASSOCIATIONS BETWEEN LZTR1 MUTATIO NS AND DIFFUSE [...] specifically target LZTR1 mut ations. ?REFERENCES ?1. cancer-beta.jaden.ac.uk/cosmic ; Nucleic Acids Res. 2016 ?Aug 28;45(D1):C169-L159 (PMID 08673 578) ?2. cbioportal.org (Version 1.5.1); Cancer discov. ?2012;2(5):401-4 (PMID 44730329); S ci Signal. ?2013;6(269):pl1 (PMID 56644374) ?3. J Biol Chem. Oct 18 2006;281(4) :7531-09 (PMID 53436893) ?4. Zoë Tori. May 2013;45(10):1141 -9 (PMID 85299694) ?ASSOCIATIONS BETWEEN SETD2 MUTATIO NS AND DIFFUSE GLIOMAS ?Approximately 1.5-6% of individual s with a diffuse glioma ?have a somatic mutation in the SET D2 gene (1-3). SETD2 ?encodes a methyltransferase that t rimethylates K36 of ?histone H3 (Y5B05wt1) as well as o ther proteins such as ?tubulin (4-6). SETD2 acts as a andrews or suppressor through ?creation of the R0W61wn7 micheal, whi ch is involved in ?chromatin structure and transcript ion regulation, and DNA ?mismatch (G8P12et2 micheal is require d for MSH6 recruitment to ?the MutS alpha complex) and double -strand break repair ?(7-10). Functional loss of SETD2 r esults in decreased ?R1U17ux7 and genomic instability, contributing to ?tumorigenesis (11, [...] ?1. [email or web address]://cancer.jaden.ac.uk/cos janneth; Nucleic Acids Res. ?2016Aug 28;45(Y5):D016-E088 (PMID 64066864) ?2. cbioportal.org (Version 1.5.1); Cancer discov. ?2011;2(5):401-4 (PMID 47843925); S ci Signal. ?2013;6(269):pl1 (PMID 43749020) ?3. Acta Neuropathol. December 2012;125( 5):659-69 (PMID 11746219) ?4. EMBO J. Sep 16 2007;27(2):406-2 0 (PMID 70982084) ?5. Cell. Apr 04 2016;166(4):950-62 (PMID 70135842) ?6. Cell. Mar 20 2017;170(3):492-50 6 e14 (PMID 22552069) ?7. Zoë Rev Mol Cell Biol. Sep 16;13(2):115-26 (PMID ?53815077) ?8. Cell. Dec 17 2012;153(3):590-60 0 (PMID 30156874) ?9. eLife. Dec 28 2013;3:v12440 (PMI D 90696701) ?10. Cell reports. Feb 17 2014;7(6) :2006-18 (PMID 38931505) ?11. Zoë Tori. Oct 2013;46(3):287- 93 (PMID 18081779) ?12. Mol Cancer Res. Jul 2016;14(12 ):1173-5 (PMID 41641265) ?13. N Engl J Med. Feb 16 2015;372( 26):2481-98 (PMID ?74588843) ?VARIANT(S) OF UNCERTAIN SIGNIFICAN CE ?One or [...] GLI3, GNA11, GNAQ, GN , GPS2, H3F3A, ?ZNAM3H7M, YBDE8L8F, IDH1, IDH2, JA K2, KDM5A, KDM5C, KDM6A, ?KLF4, KMT2B (MLL4), KMT2C (MLL3), KMT2D (MLL2), KRAS, LDB1, ?LRP1B, LZTR1, MAP2K1, MDM2, MLH1, MSH2, MSH3, MSH6, MYB, ?MYBL1, MYC, MYCN, NF1, NF2, NOTCH1 , NOTCH2, NRAS, PARP1, ?PDGFRA, VIY6B5W, PIK3CA, PIK3R1, P IK3R2, POLE, POLR2A, ?POT1, PPM1D, UBTWD2D, PTCH1, PTCH2 , PTEN, PTPN11, PTPRD, ?QKI, [...] ATG7, ?BCAN, BEND2, BIRC5, BRAF, BTBD1, C 22kpu28, F0sdt34, CLCN6, ?CLIP2, CXXC5, DDX31, DIP2C, EGFR, ELAVL3, ESR1, ETV6, ?EWSR1, HEA613O, RKT701J, FGFR1, FG FR3, FLI1, FOXR2, FXR1, ?FYCO1, GFI1, GFI1B, GLI1, GNAI1, J PX, QMEM7590, XYT326048, ?MACF1, MAMLD1, MET, MKRN1, MMP16, MN1, MST1R, MYB, MYBL1, ?MYC, NAB2, NACC2, NAV1, NDRG1, RUSS FE, NFASC, NRF1, NTRK1, ?NTRK2, NTRK3, PCDHGA1, PCSK5, PDGF RA, PKD1, PRKCA, PTPRZ1, ?PVT1, QKI, RAF1, EFFIE, RELA, RNF13 0, SEPT14, BGR60I1, ?SLIT1, SRGAP3, PO8CTB4, STAT6, TAC C1, TACC3, TFG, TPM3, ?UBE2J2, VCL, WHSC1, and YAP1. ?Mutation nomenclature is based on build GRCh37 (hg19). For ?details about gene reference trans cripts (RefSeq accession ?numbers), specific targeted region s of each gene, and ?additional information about this test, see ?www.[employer] (Test ID NO NCP). ?CLINICAL CORRELATIONS ?Test [...] un ique samples (100% ?specificity compared to [employer] l microarray) resulting ?in an overall concordance [...] base d on updated clinical ?relevance. See www.[employer]. [facility] (Test ID NONCP) for ?the most up to date list of genes included in this test. ?TEST CLASSIFICATION ?This test was developed and its pe rformance characteristics ?determined by [facility] in a man ner consistent with CLIA [...] following sites: ?1) ClinicalTrials.gov: ?www.clinicaltrials.gov/ct2/search/ advanced ?2) [facility]: www.[place]/clinical-trials/ ?3) National Cancer [place]: ?www.cancer.gov/clinicaltrials/sear ch ?REFERENCE TRANSCRIPTS ?Sequence variant nomenclature is b ased on the following ?RefSeq accession numbers (build GR Ch37 (hg19)):ARID2 ?[id number], CHEK2 [id number], CIC NM _[id number], GLI2 NM_[id number], ?LZTR1 NM_[id number], SETD2 NM_[id number] a nd TERT [id number]. ??Specimen ?Tissue, Tumor ?Tissue ID ? [id number] ?Released By ? SEE NOTE ?RESULT: Matias Sandoval M.D., Ph.D. ?Test Performed by: ?[facility] ?[address] [place] [address] ?Welding Machine Operator Helper Gas: Chintan Campbell Ph.D.; CLIA# [id number] Specimen Anatomical Collection Method Collection Time Receive d Time (Source) Location / / Volume Laterality Fixed Tissue TOPOGRAPHY UNKNOWN Non-blood 12/25/2021 4:26 PM 10/2021 4:26 / Unknown Collection / CDT PM CDT Unknown Lamonte Redmond MD LAB - BLOOD ORDERABLES Performing Organization Address City/State/ZIP Code Phon e Number [facility] [place] [address] [address] [place] [address] LABS [address] [place] [address], [facility] [employer]; NONCP (Laboratory Miscellaneous Order) (12/25/2021 4:26 PM CDT) Component Value Ref Test Analysis Performed At [facility] gist Range Method Time Signature See Scanned Specimen JANNETH 12/26/2021 [facility] Result received. 12:45 PM Reordered and CDT sent to performing laboratory. Report to follow up on completion. 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
--- OUTSIDE RECORDS SUMMARY | 2022-06-19 11:34 | XMS_ITS | Encounter Summary ---
:1970 Author Organization [place] Address [address] [place] [address] Care Team Providers Name Role Phone No Ref-Primary, Physician Primary Care Provider [phone] Reason for Visit Reason Onset Date Comments *-*INCOMING RECORDS*-* 12/24/2021 Astrocytoma (H) [ C71.9] Encounter Details Date Type Department Care Team Description 12/24/2021 PRE VISIT [facility] Shelbie Ackerman *-*INCO MANASA RECORDS*-* [facility] mohsen Thao MD (Astrocytoma (H) [address] [facility] [address] [facility] [C71.9]) [place] [address] [id number] (Wo rk) Social History Tobacco Use Types [...] 11:59 PM CDT Imaging disc arrived from [facility] - given to Damaso for upload documented in this encounter Miscellaneous Notes Telephone Encounter - Juan Carlos Bernard - 12/20/2021 3:45 PM CDT RECORDS STATUS - ALL OTHER DIAGNOSIS RECORDS RECEIVED FROM: [facility] [place], [place], [facility] DATE RECEIVED: 12/21 NOTES STATUS DETAILS OFFICE NOTE from referring provider - [facility] Dr. Darinel Agarwal: 12/18/21 [place] 11/29/21 DISCHARGE SUMMARY from hospital [facility] 11/30/21 OPERATIVE REPORT [facility] 12/05/21: Craniotomy MEDICATION LIST [facility] PATHOLOGY REPORTS [facility] 12/07/21: Path Consult ANYTHING RELATED TO DIAGNOSIS [facility]/ 12/06/21 GENONOMIC TESTING TYPE: [facility] 12/14/21: IMAGING (NEED IMAGES & REPORT) CT SCANS PACS 12/05/21, 12/01/21: [facility] [place] 11/2021: [place] MRI PACS 11/30/21: [facility] [place] 11/30/21: [place] documented in this encounter Plan of Treatment Not on filedocumented as of this encounter Visit Diagnoses Not on filedocumented in this encounter Care Teams Knowledge Management Consultant Relationship Specialty Start Date End Date No Ref-Primary, Physician PCP - General 12/19/21 documented as of this encounter
--- OUTSIDE RECORDS SUMMARY | 2022-06-19 11:36 | XMS_ITS | Encounter Summary ---
:1970 Author Organization [facility] Address [address] [place] [address] Care Team Providers Name Role Phone Unavailable Primary Care Provider Unavailable Reason for Visit Reason Comments 06/04/22 labs Encounter Details Date Type Department Care Team Description 06/04/2022 Clinical Communication Department of Latanya Michael, 06/04/22 labs Oncology in R.N., [facility] [place], [place] [address] [facility] [address] [place] [phone] Social History Tobacco Use Types Packs/Day Years Used Date Smoking Tobacco: Former Cigarettes 0.3 2 08/1999 - 08/25/2000 Smokeless Tobacco: Never Comments: Happened for a very short time in early - less than 10 per day did not last long. Dates are ge Alcohol Use Standard Drinks/Week Comments Not Currently 7 (1 standard drink = 0.6 oz pure alcoho l) glass of wine daily Alcohol Habits Answer Date Recorded How often do you have a drink containing alcohol? Never 01/07/2022 How many drinks containing alcohol do you have on a typical Not asked day when you are drinking? How often do you have six or more drinks on one occasion? No t asked Social Isolation Answer Date Recorded In [...] More than 4 times per year 01/07/2022 voodoo services? Do you belong to any clubs [...] have completed or the highest Maulik, MEd, CLAY STAIN MIXER, [place]) degree you have received? Sex Assigned at Date Recorded Female 01/07/2022 11:11 AM CDT documented as of this encounter Miscellaneous Notes Telephone Encounter - Olivia Koenig D.N.P., M.A., R.N., HNB-BC - 06/04/2022 2:13 PM CDT Labs Verified Telephone Encounter - Trupti Pearson - 06/04/2022 2:11 PM CDT Labs have been entered and are ready for review. documented in this encounter Plan of Treatment Upcoming Encounters Date Type Specialty Care Team Description 06/24/2022 Clinical Support Oncology Vini Maki M.D., Ph.D. [address] [place] [phone] Hamida Ram L.G.S.W., M.S.W. 2022 Clinical Communication Admitting/Central Scheduling 07/19/2022 Appointment Radiology Vini Maki M.D., Ph.D. [address] [place] [phone] 07/22/2022 Comprehensive Visit Gastroenterology and Andres Mehta Hepatology Sebastian Lozada [address] [place] [phone] 07/23/2022 Lab Laboratory Medicine Vini Maki M.D., Ph.D. [address] [place] [phone] 07/23/2022 Office Visit Oncology Rebeca Valle P.A.-C., M.S. [address] [place] [phone] documented as of this encounter Procedures Procedure Name Priority Date/Time Associated Diagnosis Comme nts HEMATOLOGY/ONCOLOGY Routine 06/04/2022 11:53 AM R esults for this - BLOOD, EXTERNAL CDT procedure are in LAB RESULTS the results section. documented in this encounter Results (ABNORMAL) Hematology/Oncology - Blood, External Lab Results (06/04/2022 11:53 AM CDT) Analysis Performed At Patho logist Time Signature EXT Hemoglobin 12.5 12 - 16 OTHER (SPECIFY IN PUBLICATIONS MANAGER) EXT Leukocytes 2.94 (A) 4.5 - 11 OTHER (SPECIFY IN PUBLICATIONS MANAGER) EXT Absolute 1.8 1.7 - 7.0 OTHER Neutrophil (SPECIFY IN Count PUBLICATIONS MANAGER) EXT Lymphs 0.80 (A) 0.90 - 2.9 OTHER Absolute (SPECIFY IN PUBLICATIONS MANAGER) EXT Platelet 226 140 - 440 OTHER Count (SPECIFY IN PUBLICATIONS MANAGER) Specimen (Source) Anatomical Collection Method Collection Time Re ceived Time Location / / Volume Laterality Blood 06/04/2022 11:53 AM CDT Historical Provider LAB BLOOD NON ADD-ON Performing Organization Address City/State/ZIP Code Phon e Number OTHER (SPECIFY IN PUBLICATIONS MANAGER) OTHER (SPECIFY IN PUBLICATIONS MANAGER) N/A documented in this encounter Visit Diagnoses Not on filedocumented in this encounter
--- OUTSIDE RECORDS SUMMARY | 2022-06-19 11:36 | XMS_ITS | Encounter Summary ---
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 [facility] Procedures BI Breast Diagnostic Bilateral with Tomosynthesis [address] [place] [phone] Referral ID Status Reason Start Date Expiration Date Visits Requ ested Visits Authorized [id number] Closed 05/03/2022 05/03/2023 1 1 Encounter Details Date Type Department Care Team Description 06/11/2022 Hospital Encounter Department of [place], Genetic Susceptibility To Other Malignant Neoplasm; Radiology in Sanya Lozada M.D. Cancer Breast Family History; Johnny, [address] [facility] Malignant Neoplasm Of Brain (HCC) [place], [place] [address] [facility] [address] [place], [place] [phone] (Work) [phone] Social History Tobacco Use Types Packs/Day Years [...] minutes do you engage in exercise at is 0 min 01/07/2022 level? Stress Answer [...] have completed or the highest Maulik, MEd, AIRFRAME AND POWERPLANT MECHANIC, MOISE) degree you have received? Sex [...] or fever. levETIRAcetam (KEPPRA) Take 1 tablet 180 tablet 3 04/03/2022 1,000 mg tablet (1,000 mg total) by mouth 2 (two) times a day. ondansetron (ZOFRAN) 8 mg Take 1 tablet (8 mg 30 tablet 3 0 03/01/2022 03/01/2023 tabletIndications: total) by mouth Malignant Neoplasm Of every 8 (eight) Brain (HCC) hours as needed for nausea or vomiting. prochlorperazine Take 1 tablet (10 30 tablet 3 01/29/2022 0 01/29/2023 (COMPAZINE) 10 mg mg total) by mouth tabletIndications: every 6 (six) hours Malignant Neoplasm Of as needed for Brain (HCC) nausea or vomiting (unrelieved by ondansetron). sennosides (SENOKOT) 8.6 Take 8.6 mg by 0 mg tablet mouth daily. sulfamethoxazole-trimetho Take 1 tablet by 90 tablet 3 02/202201/29/2023 prim (BACTRIM,SEPTRA) mouth daily. For 400-80 mg per prophylaxis. tabletIndications: Continue until Malignant Neoplasm Of recovery of Brain (HCC) lymphopenia after completion of temozolomide. VITAMIN B COMPLEX ORAL Take 1 tablet by 0 mouth daily. aspirin 325 mg tablet Take 325 mg by 0 06/12/2022 mouth every 6 (six) hours as needed for pain. temozolomide (TEMODAR) Take daily on days 14 capsule 0 04/0506/12/2022 140 mg 1 through 7 and capsuleIndications: days 15 through 21 Malignant Neoplasm Of on an empty Brain (HCC) stomach. documented as of this encounter Plan of Treatment Upcoming Encounters Date Type Specialty Care Team Description 06/24/2022 Clinical Support Oncology Vini Maki M.D., Ph.D. [address] [place] [phone] Hamida Ram L.G.S.W., M.S.W. 2022 Clinical Communication Admitting/Central Scheduling 07/19/2022 Appointment Radiology Vini Maki M.D., Ph.D. [address] [place] [phone] 07/22/2022 Comprehensive Visit Gastroenterology and Andres Mehta Hepatology Sebastian Lozada [address] [place] [phone] 07/23/2022 Lab Laboratory Medicine Vini Maki M.D., Ph.D. [address] [place] [phone] 07/23/2022 Office Visit Oncology Rebeca Valle P.A.-C., M.S. [address] [place] [phone] documented as of this encounter Procedures Procedure Name Priority Date/Time Associated Diagnosis Comme nts BI BREAST RAD - Routine 06/11/2022 Genetic Results for DIAGNOSTIC (most inpatients 10:39 AM CDT Susceptibility To this p rocedure BILATERAL WITH and all Other Malignant are in the TOMOSYNTHESIS outpatients) Neoplasm results Cancer Breast Family section . History Malignant Neoplasm Of Brain (HCC) documented in this encounter Results BI Breast Diagnostic Bilateral with Tomosynthesis (06/11/2022 10:39 AM CDT) Anatomical Region Laterality Modality Breast, Breast Imaging RST LOS, Breast Imaging ARZ LOS, Cate st Bilateral Mammography Imaging FLA LOS Specimen (Source) Anatomical Collection Method Collection Time Re ceived Time Location / / Volume Laterality 06/11/2022 10:52 AM CDT Impressions 06/11/2022 11:50 AM CDT No mammographic findings of malignancy. RECOMMENDATION: ??Clinical Management Future breast imaging as clinically liv cated. ASSESSMENT: ??BI-RADS: 1: Negative. Narrative 06/11/2022 11:50 AM CDT EXAM: ??BI BREAST DIAGNOSTIC BILATERAL WITH TOMOSYNTHESIS INDICATION: ??Positive family history of breast cancer. The patient has a recently-confirmed CHEK2 mutation, as well as a current biopsy-pr oven malignancy of the brain. COMPARISON: ??No priors exams were avail able for comparison. DENSITY: ??c. The breast(s) are heteroge neously dense, which may obscure small masses. FINDINGS: ??Bilateral full-field views w ith tomosynthesis were performed. No mammographic features of malignancy. Procedure Note Marie Banda M.D. - 06/11/2022Form atting of this note might be different from the original. EXAM: BI BREAST DIAGNOSTIC BILATERAL WIT H TOMOSYNTHESIS INDICATION: Positive family history of b reast cancer. The patient has a recently-confirmed CHEK2 mutation, as well as a current biopsy-pr oven malignancy of the brain. COMPARISON: No priors exams were availab le for comparison. DENSITY: c. The breast(s) are heterogene ously dense, which may obscure small masses. FINDINGS: Bilateral full-field views wit h tomosynthesis were performed. No mammographic features of malignancy. IMPRESSION: No mammographic findings of malignancy. RECOMMENDATION: Clinical Management Future breast imaging as clinically liv cated. ASSESSMENT: BI-RADS: 1: Negative. Sanya MAKI BI PROCEDURES documented in this encounter Visit Diagnoses Diagnosis Genetic Susceptibility To Other Malignan t Neoplasm Cancer Breast Family History Malignant Neoplasm Of Brain (HCC) documented in this encounter
--- OUTSIDE RECORDS SUMMARY | 2022-06-19 11:36 | XMS_ITS | Encounter Summary ---
:1970 Author Organization [facility] Address [address] [place] [address] Care Team Providers Name Role Phone Unavailable Primary Care Provider Unavailable Reason for Visit Reason Comments Symptom Assessment Encounter Details Date Type Department Care Team Description 06/17/2022 Clinical Communication Department of Latanya Michael pt Assessment Oncology in D, R.N., O.C.N. [place], [address] [place] [address] [place] [phone] [place] [phone] Social History Tobacco Use Types Packs/Day Years [...] have completed or the highest Maulik, MEd, OTOLOGIST, MOISE) degree you have received? Sex Assigned at Date Recorded Female 01/07/2022 11:11 AM CDT documented as of this encounter Plan of Treatment Upcoming Encounters Date Type Specialty Care Team Description 06/24/2022 Clinical Support Oncology Vini Maki M.D., Ph.D. [address] [place] [address] [phone] Hamida Ram L.G.S.Corwin, M.S.W. 2022 Clinical Communication Admitting/Central Scheduling 07/19/2022 Appointment Radiology Vini Maki M.D., Ph.D. [address] [place] [phone] 07/22/2022 Comprehensive Visit Gastroenterology and Andres Mehta Hepatology Sebastian Lozada [address] [place] [phone] 07/23/2022 Lab Laboratory Medicine Vini Maki M.D., Ph.D. [address] [place] [phone] 07/23/2022 Office Visit Oncology Rebeca Valle P.A.-C., M.S. [address] [place] [phone] documented as of this encounter Visit Diagnoses Not on filedocumented in this encounter
--- OUTSIDE RECORDS SUMMARY | 2022-06-19 11:36 | XMS_ITS ---
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 Testing in 2021 from [email or web address] genetics lab. As of 2021, there is no confirmed relationship bet ween pathogenic CHEK2 mutations and glio blastoma. Malignant Neoplasm Of Brain 12/31/2021 Current Oncology Plans Temozolomide ( with Radiation ) followed by TemozolomidePlan Start Date:01/29/2022 Plan Provider:Rebeca Valle P.A.-C., M.S. 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
--- OUTSIDE RECORDS SUMMARY | 2022-06-19 11:36 | XMS_ITS | Encounter Summary ---
:1970 Author Organization [facility] Address [address] [place] [address] Care Team Providers Name Role Phone Unavailable Primary Care Provider Unavailable Reason for Visit Reason Comments optune Rx Encounter Details Date Type Department Care Team Description 06/18/2022 Clinical Communication Department of Latanya Michael optune Rx Oncology in R.N., O.C.N. [place], [place] [address] [place] [address] [address] [place] [phone] Social History Tobacco Use Types Packs/Day Years [...] or relatives? How often do you attend restoration or More than 4 times per year 01/07/2022 caodaism services? Do you belong to any clubs or No 01/07/2022 organizations such as restoration groups, unions, fraternal or athletic groups, or [...] have completed or the highest Maulik, MEd, RESPIRATORY SUPPORT TECHNICIAN, MOISE) degree you have received? Sex Assigned at Date Recorded Female 01/07/2022 11:11 AM CDT documented as of this encounter Plan of Treatment Upcoming Encounters Date Type Specialty Care Team Description 06/24/2022 Clinical Support Oncology Vini Maki M.D., Ph.D. [address] [place] [address] [phone] Hamida Ram L.G.S.Corwin, M.S.W. 2022 Clinical Communication Admitting/Central Scheduling 07/19/2022 Appointment Radiology Vini Maki M.D., Ph.D. [address] [place] [phone] 07/22/2022 Comprehensive Visit Gastroenterology and Andres Mehta Hepatology Sebastian Lozada [address] [place] [phone] 07/23/2022 Lab Laboratory Medicine Vini Maki M.D., Ph.D. [address] [place] [phone] 07/23/2022 Office Visit Oncology Rebeca Valle P.A.-C., M.S. [address] [place] [phone] documented as of this encounter Visit Diagnoses Not on filedocumented in this encounter
--- OUTSIDE RECORDS SUMMARY | 2022-06-19 11:36 | XMS_ITS | Encounter Summary ---
:1970 Author Organization [facility] Address [address] [place] [address] Care Team Providers Name Role Phone Unavailable Primary Care Provider Unavailable Reason for Visit Reason Comments 05/21/22 labs Encounter Details Date Type Department Care Team Description 05/22/2022 Clinical Communication Department of Latanya Michael, 05/21/22 labs Oncology in R.N., O.C.N. [place], [place] [address] [facility] [address] [place] [phone] Social History Tobacco Use Types Packs/Day Years [...] have completed or the highest Maulik, MEd, CHIEF ESTIMATOR, MOISE) degree you have received? Sex Assigned at Date Recorded Female 01/07/2022 11:11 AM CDT documented as of this encounter Miscellaneous Notes Telephone Encounter - Olivia Koenig D.N.P., M.A., R.N., HNB-BC - 05/22/2022 10:11 AM CDT Labs Verified Telephone Encounter - Trupti Pearson - 05/22/2022 9:54 AM CDT Labs have been entered and are ready for review. documented in this encounter Plan of Treatment Upcoming Encounters Date Type Specialty Care Team Description 06/24/2022 Clinical Support Oncology Vini Maki M.D., Ph.D. [address] [place] [phone] Hamida Ram L.G.S.W., M.S.W. 2022 Clinical Communication Admitting/Central Scheduling 07/19/2022 Appointment Radiology Vini Maki M.D., Ph.D. [address] [place] [phone] 07/22/2022 Comprehensive Visit Gastroenterology and Andres Mehta Hepatology Sebastian Lzoada [address] [place] [phone] 07/23/2022 Lab Laboratory Medicine Vini Maki M.D., Ph.D. [address] [place] [phone] 07/23/2022 Office Visit Oncology Rebeca Valle P.A.-C., M.S. [address] [place] [phone] documented as of this encounter Procedures Procedure Name Priority Date/Time Associated Diagnosis Comme nts HEMATOLOGY/ONCOLOGY Routine 05/21/2022 11:35 AM R esults for this - BLOOD, EXTERNAL CDT procedure are in LAB RESULTS the results section. documented in this encounter Results (ABNORMAL) Hematology/Oncology - Blood, External Lab Results (05/21/2022 11:35 AM CDT) Analysis Performed At Patho logist Time Signature EXT Hemoglobin 12.6 12 - 16 OTHER (SPECIFY IN CONSULTING PROPERTY MANAGER) EXT Leukocytes 3.3 (A) 4.5 - 11 OTHER (SPECIFY IN CONSULTING PROPERTY MANAGER) EXT Absolute 2.10 1.7 - 7 OTHER Neutrophil (SPECIFY IN Count CONSULTING PROPERTY MANAGER) EXT Lymphs 0.80 (A) 0.90 - 2.9 OTHER Absolute (SPECIFY IN CONSULTING PROPERTY MANAGER) EXT Platelet 255 140 - 440 OTHER Count (SPECIFY IN CONSULTING PROPERTY MANAGER) Specimen (Source) Anatomical Collection Method Collection Time Re ceived Time Location / / Volume Laterality Blood 05/21/2022 11:35 AM CDT Narrative This result has an attachment that is no t available. Historical Provider LAB BLOOD NON ADD-ON Performing Organization Address City/State/ZIP Code Phon e Number OTHER (SPECIFY IN CONSULTING PROPERTY MANAGER) OTHER (SPECIFY IN CONSULTING PROPERTY MANAGER) N/A documented in this encounter Visit Diagnoses Not on filedocumented in this encounter
--- OUTSIDE RECORDS SUMMARY | 2022-06-19 11:36 | XMS_ITS | Encounter Summary ---
:1970 Author Organization [facility] Address [address] [place] [address] Care Team Providers Name Role Phone Unavailable Primary Care Provider Unavailable Reason for Referral MRI/CAT/PET Scan (Routine) - Closed Specialty Diagnoses / Procedures Referred By Contact Refer red To Contact Radiology Diagnoses Malignant Neoplasm Of Brain (HCC) Vini Maki M.D., [facility] Procedures MR Brain Perfusion without and with IV Contrast MR Brain without and with IV Contrast Ph.D. 200 [place] [phone] Referral ID Status Reason Start Date Expiration Date Visits Requ ested Visits Authorized [id number] Closed 04/04/2022 04/04/2023 1 1 Reason for Visit MRI/CAT/PET Scan (Routine) - Closed Specialty Diagnoses / Procedures Referred By Contact Refer red To Contact Radiology Diagnoses Malignant Neoplasm Of Brain (HCC) Vini Maki M.D., [facility] Procedures MR Brain Perfusion without and with IV Contrast MR Brain without and with IV Contrast Ph.D. 200 [place], [place] [phone] Referral ID Status Reason Start Date Expiration Date Visits Requ ested Visits Authorized [id number] Closed 04/04/2022 04/04/2023 1 1 Encounter Details Date Type Department Care Team Description 06/11/2022 Hospital Encounter Department of Vini Maki nt Neoplasm Of Radiology, Luis Manuel De La Cruz M.D., Ph. D. Brain (HCC) [place], in [place], [address] [place], [place] [address] [facility] [phone] [place], [place] [phone] (Work) [phone] Social History Tobacco Use Types Packs/Day Years [...] have completed or the highest Maulik, MEd, ASSOCIATE PROFESSOR OF CRIMINAL JUSTICE, MOISE) degree you have received? Sex Assigned [...] Support Oncology Vini Maki M.D., Ph.D. [address] [place] [phone] Hamida Ram L.G.S.W., M.S.W. 2022 Clinical Communication Admitting/Central Scheduling 07/19/2022 Appointment Radiology Vini Maki M.D., Ph.D. [address] [place] [phone] 07/22/2022 Comprehensive Visit Gastroenterology and Andres Mehta Hepatology Sebastian Lozada [address] [place] [phone] 07/23/2022 Lab Laboratory Medicine Vini Maki M.D., Ph.D. [address] [place] [phone] 07/23/2022 Office Visit Oncology Rebeca Valle P.A.-C., M.S. [address] [place] [phone] documented as of this encounter Procedures Procedure Name Priority Date/Time Associated Comments Diagnosis MR BRAIN RAD - Routine 06/11/2022 8:58 Malignant Results for this PERFUSION WITHOUT (most inpatients AM CDT Neoplasm Of Brain p rocedure are in AND WITH IV and all (HCC) the results CONTRAST outpatients) section. documented in this encounter Results MR Brain Perfusion without and with IV Contrast (06/11/2022 8:58 AM CDT) Anatomical Region Laterality Modality Head, Brain, Neuroradiology RST LOS, Neuroradiology ALESSANDRAZ N/A Magnetic Resonance LOS, Neuroradiology FLA LOS Specimen (Source) Anatomical Collection Method Collection Time Re ceived Time Location / / Volume Laterality 06/11/2022 9:16 AM CDT Impressions 06/11/2022 11:57 AM CDT 1. Significantly increased enhancement, T2 hyperintensity with mass effect centered at the operative cavity, concerning for further tumor pro gression. 2. Increasing asymmetric leptomeningeal enhancement, and mild ependymal enhancement in the left lateral ventricular occipital horn, alth ough nonspecific and could be treatment related changes, leptomeningeal and/or ependymal tumor sp read could be considered. Narrative 06/11/2022 11:57 AM CDT EXAM: MR BRAIN PERFUSION WITHOUT AND WITH IV CONTRAST 3D images were created on an independent workstation as ordered by the treating provider and reviewed by the radiologist to assist in treatment planning. COMPARISON: Brain MRIs, most recently on 05/02/2022, 04/04/2022. CLINICAL HISTORY: Glioblastoma, IDH-wild type, MGMT unmethylated, status post re-resection on 01/10/2022, status post radiation treatme nt completed on 03/14/2022, and currently on Temozolomide. FINDINGS: Since the prior study, signifi cant increase in size and extent of nodular enhancement surrounding the operative bed, centered at left posterior temporal lobe extending to the adjacent left temporal, occipital and parietal lo bes. For example, previously measured nodular component along the ventral aspect of the operativ e cavity measures approximately 2.2 x 2.5 cm today (series 101 image 72), previously 1.5 x 1.3 cm. Additionally, there is a new nodular component extending superomedial to the operative cavity litzy suring approximately 2.9 x 2.3 x 4.1 cm (AP, RL, SI) (series 12 image 54 and series 101 image 94). Mo st of the nodular areas of enhancement demonstrate increased rCBV on perfusion imaging. Markedly increased T2 signal and mild ma ss effect/gyral expansion in the left cerebral hemisphere centered at the left posterior temporal resection cavity, with increased involvement of the left thalamus, hippocampal formation and left cerebral peduncle/midbrain. Mild associated mass effect and partial effacement of the occipital horn of the left lateral ventricle without brain parenchymal herniation or significant midline shift. Asymmetric leptomeningeal enhancement ov erlying the left cerebral hemisphere, most obvious in the left parietal convexity (best seen in se zach 101 image 111), and mild ependymal enhancement along the occipital horn of the left lateral v entricle deep to the resection cavity (best seen in series 101 image 78), appears new since prior s jenifferdy. Similar nonenhancing foci of T2 signal a bnormality in the left frontal lobe and insula could be superimposed mild leukoaraiosis. Expecte d postsurgical changes from prior left craniotomy and tumor resection with unchanged small fluid col lection and smooth pachymeningeal enhancement subjacent to the craniotomy site. Remainder not signi ficantly changed Procedure Note Vickey Stack M.D. - 06/11/2022Formatti ng of this note might be different from the original. EXAM: MR BRAIN PERFUSION WITHOUT AND WIT H IV CONTRAST 3D images were created on an independent workstation as ordered by the treating provider and reviewed by the radiologist to assist in treatment planning. COMPARISON: Brain MRIs, most recently on 05/02/2022, 04/04/2022. CLINICAL HISTORY: Glioblastoma, IDH-wild type, MGMT unmethylated, status post re-resection on 01/10/2022, status post radiation treatme nt completed on 03/14/2022, and currently on Temozolomide. FINDINGS: Since the prior study, signifi cant increase in size and extent of nodular enhancement surrounding the operative bed, centered at left posterior temporal lobe extending to the adjacent left temporal, occipital and parietal lo bes. For example, previously measured nodular component along the ventral aspect of the operativ e cavity measures approximately 2.2 x 2.5 cm today (series 101 image 72), previously 1.5 x 1.3 cm. Additionally, there is a new nodular component extending superomedial to the operative cavity litzy suring approximately 2.9 x 2.3 x 4.1 cm (AP, RL, SI) (series 12 image 54 and series 101 image 94). Mo st of the nodular areas of enhancement demonstrate increased rCBV on perfusion imaging. Markedly increased T2 signal and mild ma ss effect/gyral expansion in the left cerebral hemisphere centered at the left posterior temporal resection cavity, with increased involvement of the left thalamus, hippocampal formation and left cerebral peduncle/midbrain. Mild associated mass effect and partial effacement of the occipital horn of the left lateral ventricle without brain parenchymal herniation or significant midline shift. Asymmetric leptomeningeal enhancement ov erlying the left cerebral hemisphere, most obvious in the left parietal convexity (best seen in se zach 101 image 111), and mild ependymal enhancement along the occipital horn of the left lateral v entricle deep to the resection cavity (best seen in series 101 image 78), appears new since prior s tudy. Similar nonenhancing foci of T2 signal a bnormality in the left frontal lobe and insula could be superimposed mild leukoaraiosis. Expecte d postsurgical changes from prior left craniotomy and tumor resection with unchanged small fluid col lection and smooth pachymeningeal enhancement subjacent to the craniotomy site. Remainder not signi ficantly changed IMPRESSION: 1. Significantly increased enhancement, T2 hyperintensity with mass effect centered at the operative cavity, concerning for further tumor pro gression. 2. Increasing asymmetric leptomeningeal enhancement, and mild ependymal enhancement in the left lateral ventricular occipital horn, alth ough nonspecific and could be treatment related changes, leptomeningeal and/or ependymal tumor sp read could be considered. Vini Maki M.D., Ph.D. IMG MRI PROCEDURES documented in this encounter Visit Diagnoses Diagnosis Malignant Neoplasm Of Brain (HCC) documented in this encounter Administered Medications Inactive Administered Medications - up to 3 most recent administrations Medication Order MAR Action Action Date Dose Rate Site gadobutrol injection 0.01-30 mL Given 06/11/2022 8:50 AM CDT 9 m L (GADAVIST) 0.01-30 mL, intravenous, Once in imaging, contrast, Starting on Fri06/11/22 at 0735, For 1 dose, Imaging Protocol Orders, Dose per Radiant Medication Guidelines Intrathecal doses greater than 0.25 mL not recommended. sodium chloride (PF) 0.9 % injection 1-1 00 mL Given 06/11/2022 8:50 AM CDT 20 mL 1-100 mL, intravenous, Once, On Fri06/11/22 at 0745, For 1 dose, Imaging Protocol Orders documented in this encounter
--- OUTSIDE RECORDS SUMMARY | 2022-06-19 11:36 | XMS_ITS | Encounter Summary ---
:1970 Author Organization [facility] Address [address] [place] [address] Care Team Providers Name Role Phone Unavailable Primary Care Provider Unavailable Reason for Visit Reason Comments Med Refill Temozolomide Encounter Details Date Type Department Care Team Description 06/03/2022 Refill Department of Oncology Vini Maki M ed Refill in [facility] monica Cortes, Ph.D. (Temozolomide/) [address] [facility] [address] [place] [phone] [place], [place] [phone] Social History Tobacco Use Types Packs/Day Years [...] have completed or the highest Maulik, MEd, DRUG SAFETY ASSISTANT, MOISE) degree you have received? Sex Assigned at Date Recorded Female 01/07/2022 11:11 AM CDT documented as of this encounter Miscellaneous Notes Telephone Encounter - Marsha Severino C.Ph.T. - 06/03/2022 12:10 PM CDT Surescripts created refill request. documented in this encounter Plan of Treatment Upcoming Encounters Date Type Specialty Care Team Description 06/24/2022 Clinical Support Oncology Vini Maki M.D., Ph.D. [address] [place] [phone] Hamida Ram L.G.STammy., M.S.W. 2022 Clinical Communication Admitting/Central Scheduling 07/19/2022 Appointment Radiology Vini Maki M.D., Ph.D. [address] [place] [phone] 07/22/2022 Comprehensive Visit Gastroenterology and Andres Mehta Hepatology Sebastian Lozada [address] [place] [phone] 07/23/2022 Lab Laboratory Medicine Vini Maki M.D., Ph.D. [address] [place] [phone] 07/23/2022 Office Visit Oncology Rebeca Valle P.A.-C., M.S. [address] [place] [phone] documented as of this encounter Visit Diagnoses Diagnosis Malignant Neoplasm Of Brain (HCC) documented in this encounter
--- OUTSIDE RECORDS SUMMARY | 2022-06-19 11:36 | XMS_ITS | Encounter Summary ---
:1970 Author Organization [facility] Address [address] [place] [address] Care Team Providers Name Role Phone Unavailable Primary Care Provider Unavailable Reason for Referral Outpatient (Routine) - Closed Specialty Diagnoses / Procedures Referred By Contact Refer red To Contact Medical Oncology / Diagnoses Malignant Neoplasm Of Brain (HCC) Vini Maki, [facility] Oncology Procedures Medical Oncology - Brain cancer eConsult Cortes, Ph.D. [address] [place] [phone] Referral ID Status Reason Start Date Expiration Date Visits Requ ested Visits Authorized [id number] Closed 06/12/2022 06/12/2023 1 1 Outpatient (Routine) - Authorized Specialty Diagnoses / Procedures Referred By Contact Refer red To Contact Oncology Vini Maki M.D ., Ph.D. [facility] [address] [place] [address] [phone] Referral ID Status Reason Start Date Expiration Date Visits V isits Requested Authorized [id number] Authorized 06/12/2022 06/11/2025 1 1 MRI/CAT/PET Scan (Routine) - Pending Review Specialty Diagnoses / Procedures Referred By Contact Refer red To Contact Radiology Diagnoses Malignant Neoplasm Of Brain (HCC) Vini Maki M.D., [facility] Procedures MR Brain without and with IV Contrast Ph.D. [address] [place] [address] [phone] Referral ID Status Reason Start Date Expiration Date Visits V isits Requested Authorized [id number] Pending 06/12/2022 06/12/2023 1 1 Review Reason for Visit Outpatient (Routine) - Closed Specialty Diagnoses / Procedures Referred By Contact Refer red To Contact Oncology Diagnoses Malignant Neoplasm Of Brain (HCC) Vini Maki M.D., [facility] Ph.D. [address] [place] [phone] Referral ID Status Reason Start Date Expiration Date Visits Requ ested Visits Authorized [id number] Closed 04/24/2022 04/23/2025 1 1 Encounter Details Date Type Department Care Team Description 06/12/2022 Office Visit Department of Oncology Vini Maki M alignant Neoplasm [place] Ph.D. Brain (HCC) (Primary [place] 200 [facility] Dx) [address] [place] [phone] Social History Tobacco Use Types Packs/Day Years [...] 01/07/2022 organizations such as samaritan groups, unions, fraUGOBE or athletic groups, or school groups? How [...] have completed or the highest Maulik, MEd, ENGINEERING SUPPLIES SALES, MOISE) degree you have received? Sex Assigned at Date Recorded Female 01/07/2022 11:11 AM CDT documented as of this encounter Last Filed Vital Signs Vital Sign Reading Time Taken Comments Blood Pressure - - Pulse - - Temperature 36.2 ??C (97.2 ??F) 06/12/2022 3:12 PM CDT Respiratory Rate - - Oxygen Saturation 98% 06/12/2022 3:12 PM CDT Inhaled Oxygen Concentration - - Weight - - Height - - Body Mass Index - - documented in this encounter Progress Notes Vini Maki M.D., Ph.D. - 06/12/2022 2:40 PM CDT Images from the original note were not included. SUBJECTIVE CHIEF COMPLAINT/REASON FOR VISIT Mia Richardson is a 51 y.o. female who presents for evaluation of Glioblastoma, IDH wild type, MGMTunmethylated - Radiation therapy and concurrent temozolomide 01/31/2022 - 03/14/2022 (of note, chemotherapy delayed in starting by two days and held for 4 days recently due to white blood cell count). - started adjuvant TMZ in Mar 2022. HISTORY OF PRESENT ILLNESS Oncology History Oncology [...] sense. The patient was taken to the [facility] with altered mental status. The patient [...] steroids and Keppra and [place] [facility] 11/30/2021 Imaging MRI of the brain demonstrated [...] Dr. Shelbie Ackerman at the [facility]. Discussed that it was okay for the patient to proceed with chemotherapy and radiation 1 month from biopsy date. Also discussed that itwas okay for the patient to travel on a commercial air flight approximately 1 month from biopsy as she was planning for a trip to [place] with her significant other in December. 12/24/[address] Shelbie Ackerman who reviewed the patient's case with Dr. Dunlap and he recommended against additional surgery. Dr. Macias recommended proceeding with a combination of radiation therapy plus temozolomide. Referral to Radiation Oncology at [facility] in [place]. 01/10/2022 Surgery and Procedures Left temporoparietal stereotactic craniotomy with tumor resection, speech mapping with Dr. Ivey. PATHOLOGY: A-D. Brain, left temporal lesion, resection: Glioblastoma, IDH-wildtype (VOLUNTEER PATIENT REPRESENTATIVE WHO grade 4), clinically residual. See comment. COMMENT: The patient's history of left temporal-parietal mitotically-active infiltrating glioma status post biopsy on 12/06/2019 (reviewed at [facility], [id number]), is noted. The biopsy specimen lacked microvascular proliferation and tumor necrosis. By immunohistochemistry, the tumor cells were negative for IDH1-R132H and showed retained ATRX expression. 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 Testing in 2021 from [facility] lab. As of 2021, there is no confirmed relationship between pathogenic CHEK2 mutations and glioblastoma. 04/04/2022 - Chemotherapy Temozolomide 7 Days On / Off ( VOLUNTEER PATIENT REPRESENTATIVE - Glioma ) Start Date: 04/04/2022 INTERVAL HISTORY: Mia Richardson presents today for [...] decreased from 160 mg to 140 mg daily during concurrent RT/TMZ treatment. In March 2022, she started adjuvant TMZ. Given prior AE, we started TMZ at 75mg/m2 02/28. She tolerated well. Thus we changed to 150mg/m2 (01/19 schedule) for cycle 2 TMZ. She took it 05/13-05/17 and tolerated ok, loretta constipation. Her mom noted that Mia had one episode of word finding difficulty last week. Resolved spontaneously. Mia has been on keppra 1000mg bid for seizure control. REVIEW OF SYSTEMS Constitutional: Positive for fatigue. Eyes: Positive for visual problems. The following systems were negative: Skin, ENT, Respiratory, Cardiovascular, Gastrointestinal, Genitourinary, Hematologic, Musculoskeletal The following portions of the patient's history were reviewed and updated as appropriate: allergies,current medications, family history, medical history, social history, surgical history and problem list OBJECTIVE Temp 36.2 ??C SpO2 98% PHYSICAL EXAMINATION GEN: no acute distress, walk in clinic without use rehab assistant device HEENT: normal Neuro: Level of Consciousness: 0 - Normal Visual Smith: 0 - Normal Facial Strength: 0 - Normal Language: 0 - Normal Strength: 0 - Normal Sensation: Not assessed Ataxia: 0 - Able to finger to nose touch without difficulty Gait: 0 - Normal Psychiatry: normal affect and mood KPS: 80 LABORATORY DATA: Hospital Outpatient Visit on 06/12/2022 Component Date Value Test, U 06/12/2022 Negative Hospital Outpatient Visit on 06/12/2022 Component Date Value Follicle-Stim Hormone (F* 06/12/2022 121.0 Luteinizing Hormone (LH) 06/12/2022 41.8 Appointment on 06/11/2022 Component Date Value Potassium, S 06/11/2022 4.1 Sodium, S 06/11/2022 140 Chloride, S 06/11/2022 103 Bicarbonate, S 06/11/2022 28 Anion Gap 06/11/2022 9 BUN (Blood Urea Nitrogen* 06/11/2022 16 Creatinine 06/11/2022 0.97 Estimated GFR (eGFR) 06/11/2022 71 Calcium, Total, S 06/11/2022 10.1 (H) Glucose, S 06/11/2022 91 Protein, Total, S 06/11/2022 7.0 Albumin, S 06/11/2022 4.8 Aspartate Aminotransfera* 06/11/2022 16 Alkaline Phosphatase, S 06/11/2022 56 Alanine Aminotransferase* 06/11/2022 13 Bilirubin, Total, S 06/11/2022 0.3 Hemoglobin 06/11/2022 12.9 Platelet Count 06/11/2022 180 Leukocytes 06/11/2022 2.7 (L) Neutrophils 06/11/2022 1.56 Iron 06/11/2022 57 Total Iron Binding [place]* 06/11/2022 289 Percent Saturation 06/11/2022 20 Ferritin, S 06/11/2022 21 RADIOLOGICAL DATA: MRI from yesterday was reviewed with pt and compared with prior scans as shwon below. 06-11-22 05-02-22 04-04-22 01-28-22 ASSESSMENT / PLAN 1. Glioblastoma Mia Richardson [...] had low ANC and TMZ dose reduced. She started cycle 1 adjuvant TMZ in March with lower dose (due to prior side effects) at 75mg/m2 02/28. Cycle 2 was at 150mg/m2 (01/19) from 05/13-05/17/22. Although there are increased CE and FLAIR in most recent scan (06/11/2022), given the location and time frame, clinically stable, pseudoprogression still can not be ruled out. Plan: - continue with adjuvant TMZ chemotherapy, she tolerated cycle 2 TMZ well. She is due to start cycle3 on 06/13/22, she prefers to start on . We will continue with regular 01/19 schedule with TMZ at 150mg/m2. TMZ ordered to [place]. -continue weekly labs given hx of low ANC/WBC. -constipation from TMZ: I recommended her to take both senna and colace and high fiber diet. -She is interested in starting Tumor treating smith (Optune) now. prescription signed and hope to start in 1-2 weeks. -Given the MRI changes, we will plan a short follow up scan in one month. In addition, we need to see how she is tolerating TMZ. Thus, we will bring her back with labs, MRI and visit in one month. follow-up orders in place Seizures: Keppra 1000mg twice daily Dexamethasone: Not currently taking Vini Maki M.D., Ph.D. documented in this encounter Plan of Treatment Upcoming Encounters Date Type Specialty Care Team Description 06/24/2022 Clinical Support Oncology Vini Maki M.D., Ph.D. [address] [place] [phone] Hamida Ram L.G.S.W., M.S.W. 2022 Clinical Communication Admitting/Central Scheduling 07/19/2022 Appointment Radiology Vini Maki M.D., Ph.D. [address] [place] [phone] 07/22/2022 Comprehensive Visit Gastroenterology and Andres Mehta Hepatology Sebastian Lozada [address] [place] [phone] 07/23/2022 Lab Laboratory Medicine Vini Maki M.D., Ph.D. [address] [place] [phone] 07/23/2022 Office Visit Oncology Rebeca Valle P.A.-C., M.S. [address] [place] [phone] Scheduled Orders Name Type Priority Associated Order Schedule Diagnoses Comprehensive Lab Routine Malignant Neoplasm Expected : Metabolic Panel Of Brain (HCC) 07/10/2022 (Approximate), Expires: 09/12/2023 CBC, Chemotherapy, No Lab Routine Malignant Neoplasm Expected: Alerts Of Brain (HCC) 07/10/2022 (Approximate), Expires: 06/12/2023 MR Brain without and Imaging RAD - Routine (most Malignant Sarthak plasm Expected: with IV Contrast inpatients and all Of Brain (HCC) outpatients) (Approximate), Expires: 06/12/2023 Scheduled Referrals Name Type Priority Associated Diagnoses Order S [facility] Oncology office Outpatient Referral Routine Expec anayeli: visit (clinic) 07/10/2022 General; Brain (Approximate) , Expires: 09/12/2023 documented as of this encounter Visit Diagnoses Diagnosis Malignant Neoplasm Of Brain (HCC) - Prim uyen documented in this encounter
--- OUTSIDE RECORDS SUMMARY | 2022-06-19 11:36 | XMS_ITS | Encounter Summary ---
:1970 Author Organization [facility] Address [address] [place] [address] Care Team Providers Name Role Phone Unavailable Primary Care Provider Unavailable Encounter Details Date Type Department Care Team Description 06/12/2022 Hospital Encounter Department of Laboratory Sa ra Tu Mendez, Amenorrhea Medicine and Pathology, [place]. [facility], in 200 [facility] [place], [place] [address] [place] [phone] [place] [phone] Social History Tobacco Use Types Packs/Day Years [...] have completed or the highest Maulik, MEd, SQUILGEER, MOISE) degree you have received? Sex Assigned [...] fever. levETIRAcetam (KEPPRA) Take 1 tablet (1,000 180 [...] Brain (HCC) or vomiting (unrelieved by ondansetron). sennosides (SENOKOT) 8.6 Take 8.6 mg by mouth 0 mg tablet daily. sulfamethoxazole-trimeth Take 1 tablet by 90 tablet 3 01/2901/29/2023 oprim (BACTRIM,SEPTRA) mouth daily. For 400-80 mg per prophylaxis. tabletIndications: Continue until Malignant Neoplasm Of recovery of Brain (HCC) lymphopenia after completion of temozolomide. VITAMIN B COMPLEX ORAL Take 1 tablet by 0 mouth daily. ondansetron (ZOFRAN) 8 Take 1 tablet (8 mg 5 tablet 0 05/2506/17/2022 mg tabletIndications: total) by mouth Malignant Neoplasm Of daily for 5 days. 30 Brain (HCC) to 60 minutes before Temozolomide Days 1 to 5 temozolomide (TEMODAR) Take 1 capsule (140 5 capsule 0 05/2506/17/2022 140 mg mg total) by mouth capsuleIndications: daily with 1 other Malignant Neoplasm Of temozolomide Brain (HCC) prescription for 320 mg total for 5 doses. Take on Days 1 to 5 on empty stomach (at least 2 hrs after or 1 hr before food). temozolomide (TEMODAR) Take 1 capsule (180 5 capsule 0 05/2506/17/2022 180 mg mg total) by mouth capsuleIndications: daily with 1 other Malignant Neoplasm Of temozolomide Brain (HCC) prescription for 320 mg total for 5 doses. Take on Days 1 to 5 on empty stomach (at least 2 hrs after or 1 hr before food). documented as of this encounter Plan of Treatment Upcoming Encounters Date Type Specialty Care Team Description 06/24/2022 Clinical Support Oncology Vini Maki M.D., Ph.D. 200 [place] [phone] Hamida Ram L.G.S.Yasmeen., M.S.W. 2022 Clinical Communication Admitting/Central Scheduling 07/19/2022 Appointment Radiology Vini Maki M.D., Ph.D. 200 [place] [phone] 07/22/2022 Comprehensive Visit Gastroenterology and Andres Mehta Hepatology Sebastian Lozada [address] [place] [phone] 07/23/2022 Lab Laboratory Medicine Vini Maki M.D., Ph.D. [address] [place] [phone] 07/23/2022 Office Visit Oncology Rebeca Valle P.A.-C., M.S. [address] [place] [phone] documented as of this encounter Procedures Procedure Name Priority Date/Time Associated Comments Diagnosis LUTEINIZING HORMONE Routine 06/12/2022 9:26 AM Amenorrhea Re sults for this (LH), S CDT procedure are i n the results section. FOLLICLE-STIM HORMONE Routine 06/12/2022 9:26 AM Amenorrhea Results for this (FSH), S CDT procedure are i n the results section. documented in this encounter Results LH (Luteinizing Hormone) (06/12/2022 9:26 AM CDT) P athologist Signature Luteinizing 41.8 IU/L 06/12/2022 DTL Hormone (LH) 10:28 AM CDT Comment: ----REFERENCE VALUE---- Premenopausal: 1.9-14.6 IU/L (Follicular) 12.2-118.0 IU/L (Midcycle) 0.7-12.9 IU/L (Luteal) Postmenopausal: 5.3-65.4 IU/L Specimen Anatomical Collection Method Collection Time Receive d Time (Source) Location / / Volume Laterality Blood (Blood, 06/12/2022 9:26 AM 06/12/20 22 Venous) CDT 10:03 AM CDT Yomaira Mendez M.D. LAB BLOOD ADD-ON Performing Organization Address City/State/ZIP Code Phon e Number [facility] - 200 [place], [place] [address] [place] [address] Laboratories-[facility] 200 [facility] Follicle-Stimulating Hormone (FSH), Serum (06/12/2022 9:26 AM CDT) P athologist Signature Follicle-Stim 121.0 IU/L 06/12/2022 DT Hormone (FSH), 10:28 AM CDT S Comment: ----REFERENCE VALUE---- Premenopausal: 2.9-14.6 IU/L (Follicular) 4.7-23.2 IU/L (Midcycle) 1.4-8.9 IU/L (Luteal) Postmenopausal: 16.0-157.0 IU/L Specimen Anatomical Collection Method Collection Time Receive d Time (Source) Location / / Volume Laterality Blood (Blood, 06/12/2022 9:26 AM 06/12/20 22 Venous) CDT 10:03 AM CDT Yomaira Mendez M.D. LAB BLOOD ADD-ON Performing Organization Address City/State/ZIP Code Phon e Number [facility] - [address] [place], [place] [address] [place] [address] [address] documented in this encounter Visit Diagnoses Diagnosis Amenorrhea documented in this encounter
--- OUTSIDE RECORDS SUMMARY | 2022-06-19 11:36 | XMS_ITS | Encounter Summary ---
:1970 Author Organization [facility] Address [address] [place] [address] Care Team Providers Name Role Phone Unavailable Primary Care Provider Unavailable Encounter Details Date Type Department Care Team Description 06/11/2022 Ancillary Department of Kip, Malignant Neop lasm Of Brain (HCC); Procedure Ophthalmology in Chas Ferro M.D. Blurred Vision; [place], [place] [address] Hemianopsia Homonymous [address] [place] [phone] Social History Tobacco Use Types Packs/Day Years [...] have completed or the highest Maulik, MEd, MOLD YARD SUPERVISOR, MOISE) degree you have received? Sex Assigned at Date Recorded Female 01/07/2022 11:11 AM CDT documented as of this encounter Plan of Treatment Upcoming Encounters Date Type Specialty Care Team Description 06/24/2022 Clinical Support Oncology Vini Maki M.D., Ph.D. [address] [place] [phone] Hamida Ram L.G.SMio, M.S.W. 2022 Clinical Communication Admitting/Central Scheduling 07/19/2022 Appointment Radiology Vini Maki M.D., Ph.D. [address] [place] [phone] 07/22/2022 Comprehensive Visit Gastroenterology and Andres Mehta Hepatheri Lozada M.D. [address] [place] [phone] 07/23/2022 Lab Laboratory Medicine Vini Maki M.D., Ph.D. [address] [place] [phone] 07/23/2022 Office Visit Oncology Rebeca Valle P.A.-C., M.S. [address] [place] [phone] documented as of this encounter Procedures Procedure Name Priority Date/Time Associated Diagnosis Comme nts AUTOMATED VF - Routine 06/11/2022 1:17 PM Malignant Neoplasm R esults for this EXTENDED - OU - CDT Of Brain (HCC) procedure are in BOTH EYES Blurred Vision the results Hemianopsia section. Homonymous documented in this encounter Results Automated VF - Extended - OU - Both Eyes (06/11/2022 1:17 PM CDT) Specimen (Source) Anatomical Location Collection Method / Collectio n Time Received Time / Laterality Volume Narrative OPHTHALMOLOGY IMAGING EXAM - 06/11/20 3:03 PM CDT Right Eye Automated visual field device used was Z eiss. Strategy was MAYCO. Threshold was 24-2. Mean deviation was -11.85 deci bels. Pattern standard deviation (PSD) was 16.20 decibels. Left Eye Automated visual field device used was Z eiss. Strategy was MAYCO. Threshold was 24-2. Mean deviation was -14.84 deci bels. Pattern standard deviation (PSD) was 15.97 decibels. Notes See progress note. Chas Shin M.D. [facility] VISUAL FIELD Performing Organization Address City/State/ZIP Code Phon e Number OPHTHALMOLOGY IMAGING EXAM documented in this encounter Visit Diagnoses Diagnosis Malignant Neoplasm Of Brain (HCC) Blurred Vision Hemianopsia Homonymous documented in this encounter
--- OUTSIDE RECORDS SUMMARY | 2022-06-19 11:36 | XMS_ITS | Encounter Summary ---
:1970 Author Organization [facility] Address [address] [place] [address] Care Team Providers Name Role Phone Unavailable Primary Care Provider Unavailable Encounter Details Date Type Department Care Team Description 06/11/2022 Ancillary Procedure Department of Ophthalmology Social History [...] completed or the highest Maulik, MEd, TOWEL WEAVER, MOISE) degree you have received? Sex Assigned at Date Recorded Female 01/07/2022 11:11 AM CDT documented as of this encounter Plan of Treatment Upcoming Encounters Date Type Specialty Care Team Description 06/24/2022 Clinical Support Oncology Vini Maki M.D., Ph.D. [address] [place] [phone] Hamida Ram L.G.S.W., M.S.W. 2022 Clinical Communication Admitting/Central Scheduling 07/19/2022 Appointment Radiology Vini Maki M.D., Ph.D. [address] [place] [phone] 07/22/2022 Comprehensive Visit Gastroenterology and Andres Mehta Hepatheri Lozada M.D. [address] [place] [phone] 07/23/2022 Lab Laboratory Medicine Vini Maki M.D., Ph.D. [address] [place] [phone] 07/23/2022 Office Visit Oncology Rebeca Valle P.A.-C., M.S. [address] [place] [phone] documented as of this encounter Procedures Procedure Name Priority Date/Time Associated Comments Diagnosis OPHTHALMOLOGY IMAGE Routine 06/11/2022 1:10 PM Re sults for this EXAM CDT procedure are i n the results section. documented in this encounter Results Visual Smith (VF)-Ophthalmology Image Exam (06/11/2022 1:10 PM CDT) Specimen (Source) Anatomical Collection Method Collection Time Re ceived Time Location / / Volume Laterality 06/11/2022 1:10 PM CDT Narrative IIMS - 06/11/2022 1:38 PM CDT This order has been created [...]
--- OUTSIDE RECORDS SUMMARY | 2022-06-19 11:36 | XMS_ITS | Clinical Summary ---
:1970 Author Organization [facility] Address [address] [place] [address] Care Team Providers Name Role Phone Unavailable Primary Care Provider Unavailable Source Comments Patient records contain information from all sites at [facility]. For routine questions regarding patient records, call [phone] during business hours, M-F 8:00 AM - 5:00 PM Central Time. Record requests for emergency care only can be directed to [phone] at any time.[facility] Allergies Active Allergy Reactions Severity Noted Date [...] or fever. prochlorperazine Take 1 tablet (10 30 tablet 3 01/29/2022 06/0 02/2023 Active (COMPAZINE) 10 mg mg total) by tabletIndications: mouth every 6 Malignant Neoplasm Of (six) hours as Brain (HCC) needed for nausea or vomiting (unrelieved by ondansetron). sulfamethoxazole-trime Take 1 tablet by 90 tablet 3 01/29/2022 01/29/2023 Active thoprim mouth daily. For (BACTRIM,SEPTRA) prophylaxis. 400-80 mg per Continue until tabletIndications: recovery of Malignant Neoplasm Of lymphopenia after Brain (HCC) completion of temozolomide. Additional Information Patient not taking. Reported on 05/06/2022 ondansetron (ZOFRAN) Take 1 tablet 30 tablet 3 03/01/2022 07/0 03/2023 Active 8 mg (8 mg total) by tabletIndications: mouth every 8 Malignant Neoplasm Of (eight) hours Brain (HCC) as needed for nausea or vomiting. levETIRAcetam Take 1 tablet 180 tablet 3 04/03/2022 Active (KEPPRA) 1,000 mg (1,000 mg tablet total) by mouth 2 (two) times a day. sennosides (SENOKOT) Take 8.6 mg by 0 Active 8.6 mg tablet mouth daily. methocarbamoL Take 1 tablet 0 01/17/2022 01/24/2022 Discontinued (ROBAXIN) 750 mg (750 mg total) tablet by mouth every 6 (six) hours as needed for muscle spasms. aspirin 325 mg tablet Take 325 mg by 0 Discontinued mouth every 6 (Alter oswald (six) hours as thera py) needed for pain. temozolomide Take daily on 14 capsule 0 04/05/2022 06/12/2022 Discontinued (TEMODAR) 140 mg days 1 through capsuleIndications: 7 and days 15 Malignant Neoplasm Of through 21 on Brain (HCC) an empty stomach. ondansetron (ZOFRAN) Take 1 tablet 5 tablet 0 06/12/2022 102 11/2021 8 mg (8 mg total) by tabletIndications: mouth daily for Malignant Neoplasm Of 5 days. 30 to Brain (HCC) 60 minutes before Temozolomide Days 1 to 5 temozolomide Take 1 capsule 5 capsule 0 06/12/2022 06/17/2022 (TEMODAR) 140 mg (140 mg total) capsuleIndications: by mouth daily Malignant Neoplasm Of with 1 other Brain (HCC) temozolomide prescription for 320 mg total for 5 doses. Take on Days 1 to 5 on empty stomach (at least 2 hrs after or 1 hr before food). temozolomide Take 1 capsule 5 capsule 0 06/12/2022 06/17/2022 (TEMODAR) 180 mg (180 mg total) capsuleIndications: by mouth daily Malignant Neoplasm Of with 1 other Brain (HCC) temozolomide prescription for 320 mg total for 5 doses. Take on Days 1 to 5 on empty stomach (at least 2 hrs after or 1 hr before food). 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 Testing in 2021 from [facility]. As of 2021, there is no confirmed relationship bet ween pathogenic CHEK2 mutations and glio blastoma. Malignant Neoplasm Of Brain 12/31/2021 Encounters Date Type Specialty Care Team Description 06/18/2022 [facility] M.D. Brain (HCC) 06/18/2022 Clinical Oncology Latanya Michael optune Rx Communication D, R.N., O.C.N. 06/17/2022 Clinical Oncology Latanya Michael Symptom Assess ment Communication D, R.N., O.C.N. 06/17/2022 Orders Only Oncology Latanya Michael, R.N., O.C.N. 06/12/2022 Office Visit Oncology Vini Maki Malignant Neop lasm Magi De La Cruz M.D., Ph.D. Brain (HCC) ( Primary Dx) 06/12/2022 Hospital Encounter Laboratory Medicine Yomaira Mendez, Amenorrhea M.D. 06/12/2022 Hospital Encounter Laboratory Medicine Yomaira Mendez Amenorrhea M.D. 06/12/2022 Comprehensive Visit Breast Clinic Yomaira Mendez [facility] er Breast Elevated Risk (Genetic Susceptibility) (Primary Dx); Sebastian Cancer Breast F amily History; Malignant Neopl asm Of Brain (HCC); Amenorrhea 06/11/2022 Office Visit Ophthalmology Kip Malignant Neop lasm Of Brain (HCC) (Primary Dx); Chas Ferro M.D. Diplopia; Hemianopsia Jerry onymous 06/11/2022 Ancillary Procedure 06/11/2022 Ancillary Procedure Ophthalmology Kip Malignbryan nt Neoplasm Of Brain (HCC); Chas Ferro M.D. Blurred Vision ; Hemianopsia Jerry onymous 06/11/2022 Hospital Encounter Radiology Sanya Mehta c Susceptibility To Other Malignant Neoplasm; Kierra MSanjuanitaD. Cancer Breast F amily History; Malignant Neopl asm Of Brain (HCC) 06/11/2022 Hospital Encounter Radiology Vini Maki t Neoplasm Of Sebastian De La Cruz, Ph.D. Brain (HCC) 06/04/2022 Clinical Oncology Val Michaelrina 06/04/22 labs Communication D, R.N., O.C.N. 06/03/2022 Refill Oncology Vini Maki Med Refill Sebastian De La Cruz, Ph.D. (Temozolomide /) 05/29/2022 Clinical Oncology HarveyValLatanya 05/29 labs only Communication D, R.N., O.C.N. 05/22/2022 Clinical Oncology HarveyValLatanya 05/21/22 labs Communication D, R.N., O.C.N. 05/09/2022 Telemedicine Oncology Farzana Allen Cogni tive Communication (Primary Dx); Sebastian Ferro Deficiency Iron ; Malignant Neopl asm Of Brain (HCC) 05/08/2022 Telemedicine Oncology Vini Maki Malignant Neop lasm Of Sebastian De La Cruz, Ph.D. Brain (HCC) ( Primary Dx) 05/07/2022 Clinical Oncology HarveyValLatanya 05/07/22 labs Communication D, R.N., O.C.N. 05/06/2022 Clinical Admitting/Central Communication Scheduling 05/06/2022 Refill Oncology Vini Maki Med Refill Sebastian De La Cruz, Ph.D. (Temozolomide , ondansetron/) 05/03/2022 Telemedicine Clinical Genomics Sanya Mehta Genetic Susceptibility To Other Malignant Neoplasm (Primary Dx); N, MSanjuanitaD. Cancer Breast F amily History; Malignant Neopl asm Of Brain (HCC) 05/02/2022 Hospital Encounter Radiology Vini Maki t Neoplasm Of Sebastian De La Cruz, Ph.D. Brain (HCC) 04/24/2022 Clinical Oncology Val Michaelrina 04/23/22 labs Communication D, R.N., O.C.N. 04/05/2022 Clinical Oncology Latanya Michael Med Refill (TM Z and Communication D, R.N., O.C.N. Ondansetron ) 04/04/2022 Office Visit Neurological Loni Charles Tumor Brain ( HCC) Surgery Odin Ojeda., Ph.D. 04/04/2022 Office Visit Oncology Vini Maki Malignant Neop lasm Of Sebastian De La Cruz, Ph.D. Brain (HCC) ( Primary Dx) 04/04/2022 Hospital Encounter Radiology Tai, Tumor Bra in (HCC) Christina Henderson P.A.-C., M.S. 04/04/2022 Lab Infusion Therapy Rebeca Valle t Neoplasm Of Kobi Amado, Brain (HCC) (Pr imary M.S. Dx) 04/04/2022 Clinical Clinical Genomics KeyurKevan ruiz HCC Inta ke Communication R 04/03/2022 Refill Oncology Latanya Michael Med Refill D, R.N., O.C.N. 04/02/2022 Clinical Oncology Emory Suggs, Communication CPT(NHA) 03/29/2022 Comprehensive Visit Endocrinology Farzana Allen Hyper thyroidism (Primary Dx); Sebastian Ferro Hyperthyroidism Subclinical; Jayna Dejesus, Abnormal Thyro id Blood Test M.B.B.S. 03/26/2022 Comprehensive Visit Ophthalmology Kip, Hemiano psia Homonymous (Primary Dx); Chas Ferro M.D. Malignant Neop lasm Of Brain (HCC); Blurred Vision 03/25/2022 Ancillary Procedure Ophthalmology César Shin nt Neoplasm Of Chas Ferro M.D. Brain (HCC) 03/25/2022 Ancillary Procedure 03/25/2022 Ancillary Procedure 03/25/2022 Ancillary Procedure Ophthalmology César Shin nt Neoplasm Of Chas Ferro M.D. Brain (HCC) from Last 3 Months Immunizations Name Administration Dates Next Due HepA / HepB 03/04/2011 HepB Adult 09/04/2010 SARS-COV-2 (COVID-19) - PFIZER (12 07/04/2021, 10/10/2020, 0 09/19/2020 years or older) Td (Adult), adsorbed 01/04/2003 Tdap 06/23/2020, 01/04/2010 influenza vaccine quad 06/29/2021, 06/11/2020, 06/17/2019, (FLUZONE/FLUARIX) (6 months and 06/03/2018 older)(PF) Family History Medical History Relation Name Comments Breast cancer Aunt Maternal Cataracts Father Armand Penn Coronary artery disease Father Armand Penn Heart a ttack and open heart surgery of some kind Hyperlipidemia Father Armand Penn Hypertension Father Armand Penn Sleep apnea Father Armand Penn Used cpap machi ne Lung cancer Maternal Grandfather [place] Truh Arthritis Maternal Grandmother Little Tr Osteoarthri tis Coronary artery disease Maternal Grandmother [place] Aor tic Stenosis Migraines Maternal Grandmother [place] Obesity Maternal Grandmother [place] Anesthesia problems Mother Libby Truh Arthritis Mother Libby Truh Chemo related ar thritis Breast cancer Mother Libby Truh Coronary artery disease Mother Libby Truh Artial F ib Glaucoma Mother Libby Truh Hyperlipidemia Mother [place] Migraines Mother [place] Obesity Mother [place] Diabetes Paternal Grandmother Tete Okerlund Hyperlipidemia Paternal Grandmother Tete Okerlund Obesity Paternal Grandmother Tete Okerlund ADD Sister Doris Maldonado Anxiety disorder Sister Doris Maldonado Depression Sister Doris Maldonado Hyperlipidemia Sister Doris Maldonado Obesity Sister Doris Maldonado Learning disorder Son 1 Linhen Colling Migraines Son 1 Rowen Colling Psychiatric Son 2 Sam Colling Asperger's Syndr ome, paranoid schizop hrenia with psychosis Amblyopia Neg Hx Blindness Neg Hx Macular degeneration Neg Hx Strabismus Neg Hx Relation Name Status Comments Aunt Alive Father Armand Penn Maternal Grandfather [place] Tru[place] Maternal Grandmother [place] Mother Libby Truh Paternal Grandmother Tete Okerlund Sister Doris Maldonado Son 1 Linhen Colling Son 2 Sam Colling Social History Tobacco Use Types Packs/Day Years Used Date Smoking Tobacco: Former Cigarettes 0.3 2 08/1999 - 08/25/2000 Smokeless Tobacco: Never Tobacco Cessation: Counseling Given: Not Answered Comments: Happened for a very short time in early 2000's- less than 10 per day did not [...] have completed or the highest Maulik, MEd, COST ACCOUNTING MANAGER, MOISE) degree you have received? Sex Assigned at Date Recorded Female 01/07/2022 11:11 AM CDT Last Filed Vital Signs Vital Sign Reading Time Taken Comments Blood Pressure 110/70 06/12/2022 7:43 AM CDT Pulse 66 06/12/2022 7:43 AM CDT Temperature 36.2 ??C (97.2 ??F) 06/12/2022 3:12 PM CDT Respiratory Rate 15 01/25/2022 12:10 PM CDT Oxygen Saturation 98% 06/12/2022 3:12 PM CDT Inhaled Oxygen Concentration - - Weight 83 kg (183 lb 1.5 oz) 06/12/2022 7:43 AM CDT Height 165 cm (5' 4.96) 06/12/2022 7:43 AM CDT Body Mass Index 30.5 06/12/2022 7:43 AM CDT Plan of Treatment Upcoming Encounters Date Type Specialty Care Team Description 06/24/2022 Clinical Support Oncology Vini Maki M.D., Ph.D. [address] [place] [phone] Hamida Ram L.G.S.W., M.S.W. 2022 Clinical Communication Admitting/Central Scheduling 07/19/2022 Appointment Radiology Vini Maki M.D., Ph.D. [address] [place] [phone] 07/22/2022 Comprehensive Visit Gastroenterology and Andres Mehta Hepatology Sebastian Lozada [address] [place] [phone] 07/23/2022 Lab Laboratory Medicine Vini Maki M.D., Ph.D. [address] [place] [phone] 07/23/2022 Office Visit Oncology Rebeca Valle P.A.-C., M.S. [address] [place] [address] [phone] Health Maintenance Due Date Last Done Comments CT Colonography 1970 Cologuard 1970 Colonoscopy 1970 Colorectal Cancer Surveillance 1970 HIV Screening 1970 Hepatitis C Screening 1970 Pneumococcal vaccine (0-64 years) 1976 (1 - PCV) Zoster Vaccines (1 of 2) 1989 Hepatitis B Vaccines (3 of 3 - 19+ 08/04/2011 03/04/2011, 0 09/04/2010 3-dose series) Depression Screening (Annual 08/25/2021 PHQ-2) COVID-19 Vaccine (4 - Booster for 08/29/2021 07/04/2021, , Pfizer series) 09/19/2020 Influenza Vaccine (#1) 2022 06/29/2021, 06/11/2020, 06/17/2019, Additional history exists Mammogram 06/11/2023 06/11/2022 Cervical Cancer Screening 04/10/2025 04/10/2022 Fasting Glucose for Diabetes 06/11/2025 06/11/2022, 022, Screening 01/18/2022, Additional history exists Lipid (Cholesterol) Screening 02/13/2027 02/13/2022, 2018 DTaP,Tdap,and Td Vaccines (3 - Td 06/23/2030 06/23/2020, , or Tdap) 01/04/2003 Medical Devices Implanted Type Area Tradeshow Worker Device Shelf Model / Identifier Expiration Serial / Date Lot Scrw Ti Mtr Slv [id number] - [id number] Hardware e.g. De puy Synthes [id number] / Implanted: Qty: 18 on 01/10/2022 by Charles Valdez M.D., Ph.D. at [facility] pins/screws/r / ods Procedures Procedure Name Priority Date/Time Associated Diagnosis Comme nts TEST, U Routine 06/12/2022 9:31 Amenorrhea Results for AM CDT this procedure are in the results section. LUTEINIZING HORMONE Routine 06/12/2022 9:26 Amenorrhea Resul ts for (LH), S AM CDT this procedure are in the results section. FOLLICLE-STIM Routine 06/12/2022 9:26 Amenorrhea Results for HORMONE (FSH), S AM CDT this proced ure are in the results section. SENSORY MOTOR EXAM Routine 06/11/2022 2:56 Diplopia Result s for PM CDT this procedure are in the results section. AUTOMATED VF - Routine 06/11/2022 1:17 Malignant Neoplasm Resu lts for EXTENDED - OU - PM CDT Of Brain (HCC) this procedure BOTH EYES Blurred Vision are in the Hemianopsia results Homonymous section. OPHTHALMOLOGY IMAGE Routine 06/11/2022 1:10 Resul ts for EXAM PM CDT this procedure are in the results section. BI BREAST RAD - Routine 06/11/2022 Genetic Results for DIAGNOSTIC (most inpatients 10:39 AM CDT Susceptibility To this p rocedure BILATERAL WITH and all Other Malignant are in the TOMOSYNTHESIS outpatients) Neoplasm results Cancer Breast Family section . History Malignant Neoplasm Of Brain (HCC) MR BRAIN PERFUSION RAD - Routine 06/11/2022 8:58 Malignant Neoplasm Results for WITHOUT AND WITH IV (most inpatients AM CDT Of Brain (HCC) th is procedure CONTRAST and all are in the outpatients) results section. IRON AND TOT Routine 06/11/2022 7:22 Deficiency Iron Results for IRON-BINDING AM CDT Malignant Neoplasm this proc edure CAPACITY, S/P Of Brain (HCC) are in the results section. CBC CHEMO - NO Routine 06/11/2022 7:22 Malignant Neoplasm Resu lts for ALERTS AM CDT Of Brain (HCC) this procedur e are in the results section. COMPREHENSIVE Routine 06/11/2022 7:22 Malignant Neoplasm Resul ts for METABOLIC PANEL, AM CDT Of Brain (HCC) this proc edure S/P are in the results section. FERRITIN, S Routine 06/11/2022 7:21 Deficiency Iron Results for AM CDT Malignant Neoplasm this proc edure Of Brain (HCC) are in the results section. HEMATOLOGY/ONCOLOGY Routine 06/04/2022 Results for - BLOOD, EXTERNAL 11:53 AM CDT this proce dure LAB RESULTS are in the results section. HEMATOLOGY/ONCOLOGY Routine 05/28/2022 8:18 Resul ts for - BLOOD, EXTERNAL PM CDT this proce dure LAB RESULTS are in the results section. HEMATOLOGY/ONCOLOGY Routine 05/21/2022 Results for - BLOOD, EXTERNAL 11:35 AM CDT this proce dure LAB RESULTS are in the results section. HEMATOLOGY/ONCOLOGY Routine 05/07/2022 Results for - BLOOD, EXTERNAL 11:50 AM CDT this proce dure LAB RESULTS are in the results section. MR BRAIN PERFUSION RAD - Routine 05/02/2022 9:50 Malignant Neoplasm Results for WITHOUT AND WITH IV (most inpatients AM CDT Of Brain (HCC) th is procedure CONTRAST and all are in the outpatients) results section. HEMATOLOGY/ONCOLOGY Routine 04/23/2022 Results for - BLOOD, EXTERNAL 11:38 AM CDT this proce dure LAB RESULTS are in the results section. HEMATOLOGY/ONCOLOGY Routine 04/17/2022 1:01 Resul ts for - BLOOD, EXTERNAL PM CDT this proce dure LAB RESULTS are in the results section. BACTERIAL CULTURE, Routine 04/04/2022 Malignant Neoplasm Res ults for AEROBIC + SUSC, 10:01 AM CDT Of Brain (HCC) this proce dure URINE are in the results section. MR BRAIN PERFUSION RAD - Routine 04/04/2022 9:32 Tumor Brain (HCC) Results for WITHOUT AND WITH IV (most inpatients AM CDT this procedure CONTRAST and all are in the outpatients) results section. T3 Routine 04/04/2022 8:11 Malignant Neoplasm Result s for (TRIIODOTHYRONINE), AM CDT Of Brain (HCC) this p rocedure TOT, S are in the results section. T4 (THYROXINE), Routine 04/04/2022 8:11 Malignant Neoplasm Res ults for FREE, S AM CDT Of Brain (HCC) this procedur e are in the results section. THYROID-STIMULATING Routine 04/04/2022 8:11 Malignant Neoplasm Results for HORMONE-SENSITIVE AM CDT Of Brain (HCC) this pro cedure (S-TSH) are in the results section. CBC WITH Routine 04/04/2022 8:11 Malignant Neoplasm Result s for DIFFERENTIAL, B AM CDT Of Brain (HCC) this proce dure are in the results section. IODINE, S Routine 04/04/2022 8:11 Malignant Neoplasm Result s for AM CDT Of Brain (HCC) this procedur e are in the results section. OPTICAL COHERENCE Routine 03/25/2022 Malignant Neoplasm Resu lts for TOMOGRAPHY (OCT) - 11:34 AM CDT Of Brain (HCC) this pr ocedure OPTIC NERVE - OU - are in th e BOTH EYES results section. OPHTHALMOLOGY IMAGE Routine 03/25/2022 Results for EXAM 11:25 AM CDT this procedure are in the results section. AUTOMATED VF - Routine 03/25/2022 Malignant Neoplasm Results for EXTENDED - OU - 10:46 AM CDT Of Brain (HCC) this proce dure BOTH EYES are in the results section. OPHTHALMOLOGY IMAGE Routine 03/25/2022 Results for EXAM 10:45 AM CDT this procedure are in the results section. from Last 3 Months Results Test, Qualitative, Urine (06/12/2022 9:31 AM CDT) athologist Signature Negative 06/12/2022 DTL Test, U 9:53 AM CDT Specimen Anatomical Collection Method Collection Time Receive d Time (Source) Location / / Volume Laterality Urine (Urine, 06/12/2022 9:31 AM 06/12/20 9:39 Midstream) CDT AM CDT Yomaira Mendez M.D. LAB URINE ORDERABLES Performing Organization Address [facility] Phon e Number [facility] - [address] LH (Luteinizing Hormone) (06/12/2022 9:26 AM CDT) athologist Signature Luteinizing 41.8 IU/L 06/12/2022 DT Hormone (LH) 10:28 AM CDT Comment: ----REFERENCE VALUE---- Premenopausal: 1.9-14.6 IU/L (Follicular) 12.2-118.0 IU/L (Midcycle) 0.7-12.9 IU/L (Luteal) Postmenopausal: 5.3-65.4 IU/L Specimen Anatomical Collection Method Collection Time Receive d Time (Source) Location / / Volume Laterality Blood (Blood, 06/12/2022 9:26 AM 06/12/20 Venous) CDT 10:03 AM CDT Yomaira Mendez M.D. LAB BLOOD ADD-ON Performing Organization Address [facility] Phon e Number [facility] - [address] Follicle-Stimulating Hormone (FSH), Serum (06/12/2022 9:26 AM CDT) athologist Signature Follicle-Stim 121.0 IU/L 06/12/2022 DTL Hormone (FSH), 10:28 AM CDT S Comment: ----REFERENCE VALUE---- Premenopausal: 2.9-14.6 IU/L (Follicular) 4.7-23.2 IU/L (Midcycle) 1.4-8.9 IU/L (Luteal) Postmenopausal: 16.0-157.0 IU/L Specimen Anatomical Collection Method Collection Time Receive d Time (Source) Location / / Volume Laterality Blood (Blood, 06/12/2022 9:26 AM 06/12/20 Venous) CDT 10:03 AM CDT Yomaira Mendez M.D. LAB BLOOD ADD-ON Performing Organization Address City/[facility]/ZIP Code Phon e Number [facility] - [address] [place], [place] [address] [place] [address] [facility] [address] [facility] Sensory Motor Exam (06/11/2022 2:56 PM CDT) Specimen (Source) Anatomical Location Collection Method / Collectio n Time Received Time / Laterality Volume Narrative OPHTHALMOLGY NON-IMAGING ORDERS - 3:03 PM CDT I have reviewed the medical record and the sensorimotor exam documentation. The findings are consiste nt with my previously initiated care plan. I agree with the impression, plan, and follow up as entered by the tanbark peeler. Chas Shin M.D. OPHTH TOMOGRAPHY Performing Organization Address City/[facility]/ZIP Code Phon e Number OPHTHALMOL NON-IMAGING ORDERS Automated VF - Extended - OU - [...] Notes See progress note. Chas Shin M.D. OPHTH VISUAL FIELD Performing Organization Address City/State/ZIP Code Phon e Number OPHTHALMOLOGY IMAGING EXAM Visual Smith (VF)-Ophthalmology Image Exam (06/11/2022 1:10 PM CDT)Only the most recent of3 resultswithin the time period is included. Specimen [...] Organization Address City/State/ZIP Code Phon e Number IIUT IIMS NA BI Breast Diagnostic Bilateral with Tomosynthesis (06/11/2022 10:39 AM CDT) Anatomical Region Laterality Modality Breast, Breast Imaging RST LOS, Breast Imaging ARZ LOS, [address] Bilateral Mammography Imaging FLA LOS Specimen [...] BI-RADS: 1: Negative. Sanya MAKI BI PROCEDURES MR Brain Perfusion without and with IV Contrast (06/11/2022 8:58 AM CDT)Only the most recent of3 resultswithin the time period is included. Anatomical Region Laterality Modality Head, Brain, Neuroradiology RST LOS, Neuroradiology ARZ N/A Magnetic Resonance LOS, Neuroradiology FLA [facility] Specimen (Source) Anatomical Collection Method Collection [...] Vini Maki M.D., Ph.D. IMG MRI PROCEDURES (ABNORMAL) CBC, Chemotherapy, No Alerts (06/11/2022 7:22 AM CDT) athologist Signature Hemoglobin 12.9 11.6 - 06/11/2022 DTL 15.0 g/dL 7:48 AM CDT Platelet Count 180 157 - 371 06/11/2022 DTL x10(9)/L 7:48 AM CDT Leukocytes 2.7 (L) 3.4 - 9.6 06/11/2022 DTL x10(9)/L 7:48 AM CDT Neutrophils 1.56 1.56 - 06/11/2022 DTL 6.45 7:48 AM CDT x10(9)/L Specimen Anatomical Collection Method Collection Time Receive d Time (Source) Location / / Volume Laterality Blood (Blood, 06/11/2022 7:22 AM 06/11/20 7:31 Venous) CDT AM CDT Vini Maki M.D., Ph.D. LAB BLOOD ADD-ON Performing Organization Address City/[facility] Code Phon e Number [facility] - [address] Iron and Total Iron-Binding Capacity (06/11/2022 7:22 AM CDT) athologist Signature Iron 57 35 - 145 06/11/2022 DTL mcg/dL 8:06 AM CDT Total Iron 289 250 - 400 06/11/2022 DTL Binding Capacity mcg/dL 8:06 AM CDT Percent 20 14 - 50 % 06/11/2022 DTL Saturation 8:06 AM CDT Specimen Anatomical Collection Method Collection Time Receive d Time (Source) Location / / Volume Laterality Blood (Blood, 06/11/2022 7:22 AM 06/11/20 7:47 Venous) CDT AM CDT Farzana Allen M.D. LAB BLOOD ADD-ON Performing Organization Address City/[facility] Phon e Number [facility] [address] (ABNORMAL) Comprehensive Metabolic Panel (06/11/2022 7:22 AM CDT) P athologist Signature Potassium, S 4.1 3.6 - 5.2 06/11/2022 DTL mmol/L 8:14 AM CDT Sodium, S 140 135 - 145 06/11/2022 DTL mmol/L 8:14 AM CDT Chloride, S 103 98 - 107 06/11/2022 DTL mmol/L 8:14 AM CDT Bicarbonate, S 28 22 - 29 06/11/2022 DTL mmol/L 8:14 AM CDT Anion Gap 9 7 - 15 06/11/2022 DTL 8:14 AM CDT BUN (Blood Urea 16 6 - 21 06/11/2022 DTL Nitrogen), S mg/dL 8:14 AM CDT Creatinine 0.97 0.59 - 06/11/2022 DTL 1.04 mg/dL 8:14 AM CDT Estimated GFR 71 >=60 06/11/2022 DTL (eGFR) mL/min/BSA 8:14 AM CDT Comment: Estimated GFR calculated using the 2020 CKD_EPI creatinine equation. Calcium, Total, S 10.1 (H) 8.6 - 10.0 mg/dL 06/11/2022 8:14 AM CDT DTL Glucose, S 91 70 - 140 mg/dL 06/11/2022 8:14 AM CDT D TL Protein, Total, S 7.0 6.3 - 7.9 g/dL 06/11/2022 8:14 A M CDT DTL Albumin, S 4.8 3.5 - 5.0 g/dL 06/11/2022 8:14 AM CDT D TL Aspartate Aminotransferase 16 8 - 43 U/L 06/11/2022 8 :14 AM CDT DTL (AST), S Alkaline Phosphatase, S 56 35 - 104 U/L 06/11/2022 8: 14 AM CDT DTL Alanine Aminotransferase 13 7 - 45 U/L 06/11/2022 8:1 4 AM CDT DTL (ALT), S Bilirubin, Total, S 0.3 <=1.2 mg/dL 06/11/2022 8:14 AM CDT DTL Specimen Anatomical Collection Method Collection Time Receive d Time (Source) Location / / Volume Laterality Blood (Blood, 06/11/2022 7:22 AM 06/11/20 7:53 Venous) CDT AM CDT Vini Maki M.D., Ph.D. LAB BLOOD ADD-ON Performing Organization Address City/[facility] Phon e Number [facility] LABORATORIES - 200 [place] [address] Ferritin (06/11/2022 7:21 AM CDT) P athologist Signature Ferritin, S 21 11 - 307 06/11/2022 DTL mcg/L 8:37 AM CDT Specimen Anatomical Collection Method Collection Time Receive d Time (Source) Location / / Volume Laterality Blood (Blood, 06/11/2022 7:21 AM 06/11/20 7:53 Venous) CDT AM CDT Farzana Allen M.D. LAB BLOOD ADD-ON Performing Organization Address [facility] Phon e Number [facility]ATORIES - [address] (ABNORMAL) Hematology/Oncology - Blood, External Lab Results (06/04/2022 11:53 AM CDT)Only the most recent of6 resultswithin the time period is included. Analysis Performed At Patho logist Time Signature EXT Hemoglobin 12.5 12 - 16 OTHER (SPECIFY IN FULL STACK NET DEVELOPER) EXT Leukocytes 2.94 (A) 4.5 - 11 OTHER (SPECIFY IN FULL STACK NET DEVELOPER) EXT Absolute 1.8 1.7 - 7.0 OTHER Neutrophil (SPECIFY IN Count FULL STACK NET DEVELOPER) EXT Lymphs 0.80 (A) 0.90 - 2.9 OTHER Absolute (SPECIFY IN FULL STACK NET DEVELOPER) EXT Platelet 226 140 - 440 OTHER Count (SPECIFY IN FULL STACK NET DEVELOPER) Specimen (Source) Anatomical Collection Method Collection Time Re ceived Time Location / / Volume Laterality Blood 06/04/2022 11:53 AM CDT Historical Provider LAB BLOOD NON ADD-ON Performing Organization Address City/[facility]/ZIP [facility] Phon e Number OTHER (SPECIFY IN FULL STACK NET DEVELOPER) OTHER (SPECIFY IN FULL STACK NET DEVELOPER) N/A (ABNORMAL) Bacterial Culture, Aerobic + Susc, Urine (04/04/2022 10:01 AM CDT) Component Value Ref Test Analysis Performed At Patholo gist Range Method Time Signature Urine With [...] Address City/State/ZIP Code Phon e Number [facility] - [address] [place], [place] [address] [place] [address] Laboratories-[facility] [address] Iodine (04/04/2022 8:11 AM CDT) P athologist Signature Iodine, S 59 40 - 92 04/05/2022 6:58 SDSC ng/mL PM CDT Comment: ----ADDITIONAL INFORMATION---- This test was developed and its performa nce characteristics determined by [facility] in a manner consistent with CLIA requirements. [...] Address City/State/ZIP Code Phon e Number [facility] [address] [place], [place] [address] SUPPORT CENTER [facility] [place] [address] Laboratory Medicine and Pathology [address] [place] (ABNORMAL) CBC with Differential, Blood (04/04/2022 8:11 AM CDT) [facility] Method Time Signature Hemoglobin 12.9 11.6 - [...] M.S. LAB BLOOD ADD-ON Performing Organization Address City/[facility] Phon e Number [facility] - [address] T3 (Triiodothyronine), Total (04/04/2022 8:11 AM CDT) athologist Signature T3 131 80 - 200 04/04/2022 DTL (Triiodothyroni ng/dL 9:15 AM CDT ne), Total, S Specimen Anatomical Collection Method Collection Time Receive d Time (Source) Location / / Volume Laterality Blood (Blood, 04/04/2022 8:11 AM 04/04/20 22 8:41 Venous) CDT AM CDT Rebeca Valle P.A.-C., M.S. LAB BLOOD ADD-ON Performing Organization Address City/[facility] Code Phon e Number [facility] - 200 [place], [place] [address] [place] [address] (ABNORMAL) S-TSH (Thyroid-Stimulating Hormone - Sensitive) (04/04/2022 8:11 AM CDT) P athologist Signature TSH, Sensitive 0.08 (L) 0.3 - 4.2 04/04/2022 DTL mIU/L 9:15 AM CDT Specimen Anatomical Collection Method Collection Time Receive d Time (Source) Location / / Volume Laterality Blood (Blood, 04/04/2022 8:11 AM 04/04/20 22 8:41 Venous) CDT AM CDT Rebeca Valle P.A.-C., M.S. LAB BLOOD ADD-ON Performing Organization Address [facility] Phon e Number [facility] - [phone] [place] [address] T4 (Thyroxine), Free (04/04/2022 8:11 AM CDT) P athologist Signature T4 (Thyroxine), 1.0 0.9 - 1.7 04/04/2022 DT Free, S ng/dL 9:15 AM CDT Specimen Anatomical Collection Method Collection Time Receive d Time (Source) Location / / Volume Laterality Blood (Blood, 04/04/2022 8:11 AM 04/04/20 22 8:41 Venous) CDT AM CDT Rebeca Valle P.A.-C., M.S. LAB BLOOD ADD-ON Performing Organization Address [facility] Phon e Number [facility] - [phone] [place] [address] Optical Coherence Tomography - Optic Nerve - [...] M.D. OPHTH TOMOGRAPHY Performing Organization Address [facility] Phon e Number OPHTHALMOLOGY IMAGING EXAM Automated VF - Extended - OU - Both Eyes (03/25/2022 10:46 AM CDT) Specimen (Source) Anatomical Location Collection Method / Collectio n Time Received Time / Laterality Volume Narrative OPHTHALMOLOGY IMAGING EXAM - 03/25/20 22 6:53 PM CDT Right Eye Automated visual field device used was [employer]. Strategy was [employer]CO. Threshold was 24-2. Eyelid was untaped. Left Eye Automated visual field device used was [employer]. Strategy was MAYCO. Threshold was 24-2. Eyelid was untaped. Notes The interpretation report for this test can be found in the Testing section of the chart note dated 03/26/2022 Chas Shin M.D. OPHTH VISUAL FIELD Performing Organization Address City/State/ZIP Code Phon e Number OPHTHALMOLOGY IMAGING EXAM from Last 3 Months Insurance Payer Benefit Plan Subscriber ID Effective Dates Phone Address Type / Group ARE [facility] CARE [id number] 2022-Presen [phone] [id number] Medicaid HMO t 5 [place] [address] Advance Directives For more information, please contact: [phone] Latest Code Status on File Code Status Date Activated Date Inactivated Comments Full Code 01/17/2022 12:28 PM 01/25/2022 2:17 PM Question Answer Comments Full Code: Discussed Code Status History Code Status Date Activated Date Inactivated Comments Full Code 01/10/2022 7:52 PM 01/17/2022 11:55 AM Question Answer Comments Full Code: Not Discussed Due to: Not medically appropriate Full Code 01/09/2022 6:01 PM 01/10/2022 7:52 PM Question Answer Comments Full Code: Not Discussed Due to: Patient not available
--- OUTSIDE RECORDS SUMMARY | 2022-06-19 11:36 | XMS_ITS | Encounter Summary ---
:1970 Author Organization [facility] Address [address] [place] [address] Care Team Providers Name Role Phone Unavailable Primary Care Provider Unavailable Reason for Visit Reason Comments 05/29 labs only Encounter Details Date Type Department Care Team Description 05/29/2022 Clinical Communication Department of Latanya Michael, 05/29 labs only Oncology in R.N., O.C.N. 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 Sex Assigned at Date Recorded Female 01/07/2022 11:11 AM CDT documented as of this encounter Miscellaneous Notes Telephone Encounter - Olivia Koenig D.N.P., M.A., R.N., HNB-BC - 05/30/2022 9:26 AM CDT Labs Verified Telephone Encounter - Trupti Pearson - 05/29/2022 4:53 PM CDT Labs have been entered and are ready for review. Telephone Encounter - Stacy Flanagan R.N. - 05/29/2022 4:48 PM CDT Please enter labs. Thank you. Telephone Encounter - Yue Mack - 05/29/2022 4:30 PM CDT Labs drawn on 05/28/22 are here. Labs have been sent to scanning and should be viewable in Document Viewer within 5 minutes. Thanks, Yue RST ONC [facility] AA POD 1 documented in this encounter Plan of Treatment Upcoming Encounters Date Type Specialty Care Team Description 06/24/2022 Clinical Support Oncology Vini Maki M.D., Ph.D. [address] [place] [phone] Hamida Ram L.G.S.W., M.S.W. 2022 Clinical Communication Admitting/Central Scheduling 07/19/2022 Appointment Radiology Vini Maki M.D., Ph.D. [address] [place] [phone] 07/22/2022 Comprehensive Visit Gastroenterology and Andres Mehta Hepatology Sebastian Lozada [address] [place] [phone] 07/23/2022 Lab Laboratory Medicine Vini Maki M.D., Ph.D. [address] [place] [phone] 07/23/2022 Office Visit Oncology Rebeca Valle P.A.-C., M.S. [address] [place] [phone] documented as of this encounter Procedures Procedure Name Priority Date/Time Associated Diagnosis Comme nts HEMATOLOGY/ONCOLOGY Routine 05/28/2022 8:18 PM Re sults for this - BLOOD, EXTERNAL CDT procedure are in LAB RESULTS the results section. documented in this encounter Results (ABNORMAL) Hematology/Oncology - Blood, External Lab Results (05/28/2022 8:18 PM CDT) Analysis Performed At Patho logist Time Signature EXT Hemoglobin 12.7 12 - 16 OTHER (SPECIFY IN PROTOTYPE CARPENTER) EXT Leukocytes 3.15 (A) 4.5 - 11 OTHER (SPECIFY IN PROTOTYPE CARPENTER) EXT Absolute 1.9 1.7 - 7 OTHER Neutrophil (SPECIFY IN Count PROTOTYPE CARPENTER) EXT Lymphs 0.90 0.90 - 2.9 OTHER Absolute (SPECIFY IN PROTOTYPE CARPENTER) EXT Platelet 233 140 - 440 OTHER Count (SPECIFY IN PROTOTYPE CARPENTER) Specimen (Source) Anatomical Collection Method Collection Time Re ceived Time Location / / Volume Laterality Blood 05/28/2022 8:18 PM CDT Narrative This result has an attachment that is no t available. Historical Provider LAB BLOOD NON ADD-ON Performing Organization Address City/State/ZIP Code Phon e Number OTHER (SPECIFY IN PROTOTYPE CARPENTER) OTHER (SPECIFY IN PROTOTYPE CARPENTER) N/A documented in this encounter Visit Diagnoses Not on filedocumented in this encounter
--- OUTSIDE RECORDS SUMMARY | 2022-06-19 11:36 | XMS_ITS | Encounter Summary ---
:1970 Author Organization [facility] Address [address] [place] [address] Care Team Providers Name Role Phone Unavailable Primary Care Provider Unavailable Reason for Visit Reason Comments Consult Outpatient (Routine) - Closed Specialty Diagnoses / Procedures Referred By Contact Refer red To Contact Breast Clinic Diagnoses Genetic Susceptibility To Other Malignant Neoplasm Cancer Breast Family History Malignant Neoplasm Of Brain (HCC) [facility] [address] [place] [address] Referral ID Status Reason Start Date Expiration Date Visits Requ ested Visits Authorized [id number] Closed 05/03/2022 05/03/2023 1 1 Encounter Details Date Type Department Care Team Description 06/12/2022 Comprehensive Visit Breast Diagnostic Yomaira Mendez Breast Elevated Risk (Genetic Susceptibility) (Primary Dx); [facility] Family History; [place] [address] [facility] Malignant Neoplasm Of Brain (HCC); [address] [place], [place] [phone] Social History Tobacco Use Types Packs/Day Years [...] completed or the highest Maulik, 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 Sex Assigned at Date Recorded Female 01/07/2022 11:11 AM CDT documented as of this encounter Last Filed Vital Signs Vital Sign Reading Time Taken Comments Blood Pressure 110/70 06/12/2022 7:43 AM CDT Pulse 66 06/12/2022 7:43 AM CDT Temperature - - Respiratory Rate - - Oxygen Saturation - - Inhaled Oxygen Concentration - - Weight 83 kg (183 lb 1.5 oz) 06/12/2022 7:43 AM CDT Height 165 cm (5' 4.96) 06/12/2022 7:43 AM CDT Body Mass Index 30.5 06/12/2022 7:43 AM CDT documented in this encounter Consult Notes Yomaira Mendez M.D. - 06/12/2022 8:00 AM CDT SUBJECTIVE HISTORY OF PRESENT ILLNESS Ms. Cedillo is a very pleasant 51 y.o. woman who presents today for further evaluation and recommendations in regards to a family history of breast cancer and personal history of CHEK2 mutation. 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 For this reason, she has been referred to the Breast Clinic due to elevated risk of breast cancer. Today, patient has no breast complaints. She denies new lumps/bumps, breast pain, nipple discharge. She underwent a mammogram yesterday which was negative. She also notes that she has stopped menstruating since treatment for GBM but is also sexually active and would like ruled out. She was having regular menses up until 1 month prior to presentation at which time she noted a longer period than usual. Regarding her GBM treatment, she underwent a MRI of the brain yesterday raising concern for further tumor progression. She has followup with Oncology later today. BREAST CANCER RISK PROFILE . Age at first parity <30 years old. Breastfed. Perimenopausal, last menses in November 2021. Uterus, ovaries intact. History of OCPs >10 years. No history of fertility medications, MARISSA exposure, breast biopsies, breast surgery. History of radiation to the brain as noted above. Former social smoker, quit >20 years ago. Social drinker. Exercises regularly. BMI 30. FAMILY HISTORY Mother diagnosed with BC at age 55, CHEK2 positive. Maternal aunt diagnosed with BC at age 70. Maternal GF diagnosed with lung cancer. Maternal GM with possible colon cancer diagnosed at age 96. Deniesfamily history of ovarian cancer or pancreatic cancer. CURRENT MEDICATIONS Current Outpatient Medications: acetaminophen (TYLENOL) 500 mg tablet, Take 2 tablets (1,000 mg total) by mouth every 6 (six) hoursas needed for moderate pain or score 4-6 of 10, mild pain or score 1-3 of 10, headaches or fever., Disp: , Rfl: levETIRAcetam (KEPPRA) 1,000 mg tablet, Take 1 tablet (1,000 mg total) by mouth 2 (two) times a day., Disp: 180 tablet, Rfl: 3 ondansetron (ZOFRAN) 8 mg tablet, Take 1 tablet (8 mg total) by mouth every 8 (eight) hours as needed for nausea or vomiting., Disp: 30 tablet, Rfl: 3 prochlorperazine (COMPAZINE) 10 mg tablet, Take 1 tablet (10 mg total) by mouth every 6 (six) hoursas needed for nausea or vomiting (unrelieved by ondansetron)., Disp: 30 tablet, Rfl: 3 sennosides (SENOKOT) 8.6 mg tablet, Take 8.6 mg by mouth daily., Disp: , Rfl: temozolomide (TEMODAR) 140 mg capsule, Take daily on days 1 through 7 and days 15 through 21 on an empty stomach. (Patient taking differently: as directed. Take daily on days 1 through 7 and days 15 through 21 on an empty stomach.), Disp: 14 capsule, Rfl: 0 VITAMIN B COMPLEX ORAL, Take 1 tablet by mouth daily., Disp: , Rfl: sulfamethoxazole-trimethoprim (BACTRIM,SEPTRA) 400-80 mg per tablet, Take 1 tablet by mouth daily. For prophylaxis. Continue until recovery of lymphopenia after completion of temozolomide. (Patient not taking: No sig reported), Disp: 90 tablet, Rfl: 3 No current facility-administered medications for this visit. The following portions of the patient's history were reviewed and updated as appropriate: allergies,current medications, family history, medical history, social history, surgical history and problem list. OBJECTIVE PHYSICAL EXAMINATION BP 110/70 (BP Location: Right arm, Patient Position: Sitting, Cuff Size: Large) Pulse 66 Ht 165 cm Wt 83 kg BMI 30.50 kg/m?? Constitutional: She appears well-developed and well-nourished. No distress. Neck: Normal range of motion. Neck supple. No thyromegaly present. Breast: Both breasts are approximate same size and relatively symmetric. No significant skin discolorations, lesions, retractions or dimpling. Both nipples everted. Careful palpation demonstrates no significant palpable abnormalities on either breast. No expressible nipple discharge. Lymphadenopathy: No enlarged submental, supraclavicular, occipital, cervical, axillary adenopathy. Skin: Skin is warm and dry. No rash noted. Psychiatric: She has a normal mood and affect. ASSESSMENT / PLAN #1 Cancer Breast Elevated Risk (Genetic Susceptibility) #2 CHEK2 Mutation #3 Cancer Breast Family History #4 Malignant Neoplasm Of Brain, currently on chemotherapy #5 Amenorrhea We reviewed patient's relevant medical history. We reviewed her reassuring mammogram from yesterday.We reviewed NCCN guidelines for breast cancer risk management in patients with CHEK2 mutation. We discussed implications for risk management in her offspring if they are found to have a CHEK2 mutation (daughter is negative; two sons are pending). We discussed holding off on screening at this time while she undergoes treatment for GBM. After completing treatment, it would be reasonable to start screening with MRI and mammogram on an annual basis but I would wait until one year after GBM treatment. I am glad to hear she does not have breast concerns today and is in agreement with holding off on screening at this time while she undergoes treatment. We discussed continuing with self- breast exams and letting me know if anything changes or if concerns arise. We also discussed importance of lifestyle measures such as exercising, avoiding smoking, limiting alcohol use, and maintaining a healthy body weight. She is worried regarding her amenorrhea given she is sexually active with her partner and was having regular menses prior to November 2021. I suspect amenorrhea is secondary to her cancer treatment, but I will check a test at her request as well as FSH and LH. PATIENT EDUCATION Ready to learn, no apparent learning barriers were identified; learning preferences include listening. Explained diagnosis and treatment plan; patient expressed understanding of the content. Total visit time greater than 45 minutes, both face to face care and non face to face review and coordination of care. documented in this encounter Plan of Treatment Upcoming Encounters Date Type Specialty Care Team Description 06/24/2022 Clinical Support Oncology Vini Maki M.D., Ph.D. [address] [place] [phone] Hamida Ram L.G.S.W., M.S.W. 2022 Clinical Communication Admitting/Central Scheduling 07/19/2022 Appointment Radiology Vini Maki M.D., Ph.D. [address] [place] [phone] 07/22/2022 Comprehensive Visit Gastroenterology and Andres Mehta Hepatheri Lozada M.D. [address] [place] [address] [phone] 07/23/2022 Lab Laboratory Medicine Vini Maki M.D., Ph.D. [address] [place] [address] [phone] 07/23/2022 Office Visit Oncology Rebeca Valle P.A.-C., M.S. [address] [place] [phone] documented as of this encounter Results Test, Qualitative, Urine (06/12/2022 9:31 AM CDT) athologist Signature Negative 06/12/2022 DTL Test, U 9:53 AM CDT Specimen Anatomical Collection Method Collection Time Receive d Time (Source) Location / / Volume Laterality Urine (Urine, 06/12/2022 9:31 AM 06/12/20 9:39 Midstream) CDT AM CDT Yomaira Mendez M.D. LAB URINE ORDERABLES Performing Organization Address City/State/ZIP Code Phon e Number [facility] - [address] [place] [phone] [facility] [place] [address] Laboratories-[facility] 200 [facility] LH (Luteinizing Hormone) (06/12/2022 9:26 AM CDT) athologist Signature Luteinizing 41.8 IU/L 06/12/2022 DTL [...] M.D. LAB BLOOD ADD-ON Performing Organization Address City/[facility] Phon e Number [facility] - [address] [place], [place] [address] [place] [address] [facility] [address] [place] Follicle-Stimulating Hormone (FSH), Serum (06/12/2022 9:26 AM [...] M.D. LAB BLOOD ADD-ON Performing Organization Address City/State/[facility] Phon e Number [facility] - [address] [place], [place] [address] [place] [address] [facility] 200 [facility] documented in this encounter Visit Diagnoses Diagnosis Cancer Breast Elevated Risk (Genetic Radha ceptibility) - Primary Cancer Breast Family History Malignant Neoplasm Of Brain (HCC) Amenorrhea documented in this encounter
--- OUTSIDE RECORDS SUMMARY | 2022-06-19 11:36 | XMS_ITS | Encounter Summary ---
:1970 Author Organization [facility] Address [address] [place] [address] Care Team Providers Name Role Phone Unavailable Primary Care Provider Unavailable Reason for Visit Outpatient (Routine) - Closed Specialty Diagnoses / Procedures Referred By Contact Refer red To Contact Medical Oncology / Diagnoses Malignant Neoplasm Of Brain (HCC) Vini Maki, [facility] Oncology Procedures Medical Oncology - Brain cancer eConsult MEleazar, Ph.D. [address] [place] [phone] Referral ID Status Reason Start Date Expiration Date Visits Requ ested Visits Authorized [id number] Closed 06/12/2022 06/12/2023 1 1 Encounter Details Date Type Department Care Team Description 06/18/2022 Internal E-Consult [facility] Frandy Muñoz Neoplasm Of Oncology in M.D. Brain (HCC) [place], [place] [address] [place] [address] [place] [phone] Social History Tobacco Use Types Packs/Day Years [...] 01/07/2022 organizations such as scientology groups, unions, [employer] or athletic groups, or school groups? 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 Sex Assigned at Date Recorded Female 01/07/2022 11:11 AM CDT documented as of this encounter Consult Notes Jimi Estrada M.D. - 06/18/2022 8:00 AM CDT The patient was not personally interviewed or examined. The history and examination findings are based on the clinical documentation provided and/or discussed with a physician or provider who had personally interviewed and examined the patient. Referring Physician: Vini Maki M.D., Ph.D. CHIEF COMPLAINT / REASON FOR VISIT Mia Richarsdon is a 51 y.o. female. Specific clinical question: Referred for generation of [employer]/tumor treatment field array map (referred by Dr. Maki) HISTORY OF PRESENT ILLNESS Using the most recent MRI of 06/11/2022, array map generated and sent to [employer]. ASSESSMENT / PLAN Recurrent glioma documented in this encounter Plan of Treatment Upcoming Encounters Date Type Specialty Care Team Description 06/24/2022 Clinical Support Oncology Vini Maki M.D., Ph.D. [address] [place] [phone] Hamida Ram L.G.S.W., M.S.W. 2022 Clinical Communication Admitting/Central Scheduling 07/19/2022 Appointment Radiology Vini Maki M.D., Ph.D. [address] [place] [phone] 07/22/2022 Comprehensive Visit Gastroenterology and Andres Mehta Hepatology Sebastian Lozada [address] [place] [phone] 07/23/2022 Lab Laboratory Medicine Vini Maki M.D., Ph.D. [address] [place] [phone] 07/23/2022 Office Visit Oncology Rebeca Valle P.A.-C., M.S. [address] [place] [address] [phone] documented as of this encounter Visit Diagnoses Diagnosis Malignant Neoplasm Of Brain (HCC) documented in this encounter
--- OUTSIDE RECORDS SUMMARY | 2022-06-19 11:36 | XMS_ITS | Encounter Summary ---
:1970 Author Organization [facility] Address [address] [place] [address] Care Team Providers Name Role Phone Unavailable Primary Care Provider Unavailable Reason for Referral Outpatient (Routine) - Authorized Specialty Diagnoses / Procedures Referred By Contact Refer red To Contact Social Work Vini Maki M.D ., Ph.D. [facility] [address] [place] [phone] Referral ID Status Reason Start Date Expiration Date Visits V isits Requested Authorized [id number] Authorized 06/17/2022 06/16/2025 1 1 Scheduling Instructions Hamida Ram Encounter Details Date Type Department Care Team Description 06/17/2022 Orders Only Department of Oncology in [place] Michael , [place] O.[place].N. [address] [place] [address] [place] [phone] [place], [place] [phone] Social History Tobacco Use Types Packs/Day Years [...] 01/07/2022 organizations such as anabaptist groups, unions, fraGeofusion or athletic groups, or school groups? 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 Sex Assigned at Date Recorded Female 01/07/2022 11:11 AM CDT documented as of this encounter Plan of Treatment Upcoming Encounters Date Type Specialty Care Team Description 06/24/2022 Clinical Support Oncology Vini Maki M.D., Ph.D. [address] [place] [phone] Hamida Ram L.G.SMio, M.S.W. 2022 Clinical Communication Admitting/Central Scheduling 07/19/2022 Appointment Radiology Vini Maki M.D., Ph.D. [address] [place] [phone] 07/22/2022 Comprehensive Visit Gastroenterology and Andres Mehta Hepatology Sebastian Lozada [address] [place] [phone] 07/23/2022 Lab Laboratory Medicine Vini Maki M.D., Ph.D. [address] [place] [phone] 07/23/2022 Office Visit Oncology eRbeca Valle P.A.-C., M.S. [address] [place] [phone] Scheduled Referrals Name Type Priority Associated Diagnoses Order S [facility] Social Work Outpatient Referral Routine Expected : office visit 06/17/2022 (clinic) (Approximate), Expires: 09/17/2023 documented as of this encounter Visit Diagnoses Not on filedocumented in this encounter
--- OUTSIDE RECORDS SUMMARY | 2022-06-19 11:36 | XMS_ITS | Encounter Summary ---
:1970 Author Organization [facility] Address [address] [place] [address] Care Team Providers Name Role Phone Unavailable Primary Care Provider Unavailable Encounter Details Date Type Department Care Team Description 06/12/2022 Hospital Encounter Department of Laboratory Sa ra Tu Mendez, Amenorrhea Medicine and Pathology, [place]. [facility], in 200 [facility] [place], [place] [address] [place] [phone] [place] [phone] Social History Tobacco Use Types Packs/Day Years [...] have completed or the highest Maulik, MEd, REPRESENTATIVE, MOISE) degree you have received? Sex [...] Support Oncology Vini Maki M.D., Ph.D. 200 [place] [phone] Hamida Ram L.G.S.Yasmeen., M.S.W. 2022 Clinical Communication Admitting/Central Scheduling 07/19/2022 Appointment Radiology Vini Maki M.D., Ph.D. 200 [place] [phone] 07/22/2022 Comprehensive Visit Gastroenterology and Andres Mehta Hepatology Sebastian oLzada [address] [place] [phone] 07/23/2022 Lab Laboratory Medicine Vini Maki M.D., Ph.D. [address] [place] [phone] 07/23/2022 Office Visit Oncology Rebeca Valle P.A.-C., M.S. [address] [place] [phone] documented as of this encounter Procedures Procedure Name Priority Date/Time Associated Diagnosis Comme nts TEST, U Routine 06/12/2022 9:31 AM Amenorrhea Resu lts for this CDT procedure are i n the results section. documented in this encounter Results Test, Qualitative, Urine (06/12/2022 9:31 AM CDT) P athologist Signature Negative 06/12/2022 DTL Test, U 9:53 AM CDT Specimen Anatomical Collection Method Collection Time Receive d Time (Source) Location / / Volume Laterality Urine (Urine, 06/12/2022 9:31 AM 06/12/20 9:39 Midstream) CDT AM CDT Yomaira Mendez M.D. LAB URINE ORDERABLES Performing Organization Address City/State/ZIP Code Phon e Number [facility] - 200 [place], [place] [address] [facility] [place] [address] [facility] 200 [facility] documented in this encounter Visit Diagnoses Diagnosis Amenorrhea documented in this encounter
--- OUTSIDE RECORDS SUMMARY | 2022-06-19 11:37 | XMS_ITS | Encounter Summary ---
:1970 Author Organization [facility] Address [address] [place] [address] Care Team Providers Name Role Phone Unavailable Primary Care Provider Unavailable Reason for Visit Outpatient (Routine) - Closed Specialty Diagnoses / Procedures Referred By Contact Refer red To Contact Oncology Vini Maki M.D ., Ph.D. [facility] [address] [place] [phone] Referral ID Status Reason Start Date Expiration Date Visits Requ ested Visits Authorized [id number] Closed 04/04/2022 04/04/2023 1 1 Encounter Details Date Type Department Care Team Description 05/08/2022 Telemedicine Department of Oncology Vini Maki M alignant Neoplasm Of in Sebastian Turner, Ph.D. Brain (HCC) (Primary [address] Dx) [address] [place] [phone] Social History Tobacco Use Types Packs/Day Years [...] have completed or the highest Maulik, MEd, BEEHIVE KILN SUPERVISOR, MOISE) degree you have received? Sex Assigned at Date Recorded Female 01/07/2022 11:11 AM CDT documented as of this encounter Progress Notes Vini Maki M.D., Ph.D. - 05/08/2022 9:40 AM CDT SUBJECTIVE Consult conducted via real-time audio/video technology by Vini Maki M.D., Ph.D. in [facility] to the patient in patient's home. CHIEF COMPLAINT/REASON FOR VISIT Mia Richardson is [...] sense. The patient was taken to the [facility] with altered mental status. The patient was [...] steroids and Keppra and transferred to [facility]. 11/30/2021 Imaging MRI of the brain demonstrated [...] Referral to Dr. Shelbie Ackerman at the [facility]. Discussed that it was okay for the patient to proceed with chemotherapy and radiation 1 month from biopsy date. Also discussed that itwas okay for the patient to travel on a commercial air flight approximately 1 month from biopsy as she was planning for a trip to [place] with her significant other in December. 12/24/[address] Shelbie Ackerman who reviewed the patient's case with Dr. Dunlap and he recommended against additional surgery. Dr. Macias recommended proceeding with a combination of radiation therapy plus temozolomide. Referral to Radiation Oncology at [facility] in [place]. 01/10/2022 Surgery and Procedures Left temporoparietal stereotactic craniotomy with tumor resection, speech mapping with Dr. Ivey. PATHOLOGY: A-D. 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 See comment. 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 The biopsy specimen lacked microvascular proliferation and tumor necrosis. By immunohistochemistry, the tumor cells were negative for IDH1-R132H and showed retained ATRX expression. 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 Testing in 2021 from [facility]. As of 2021, there is no confirmed relationship between pathogenic CHEK2 mutations and glioblastoma. 04/04/2022 - Chemotherapy Temozolomide 7 Days On / Off ( RUSSIAN LANGUAGE INSTRUCTOR - Glioma ) Start Date: 04/04/2022 INTERVAL [...] we started TMZ at 75mg/m2 02/28. She just finished TMZ on 05/05. She is currently in her week off. She tolerated this round TMZ well. REVIEW OF SYSTEMS Constitutional: Positive for fatigue. [...] for this visit. PHYSICAL EXAMINATION Physical Exam KPS 80 LABORATORY DATA: Clinical Communication on 05/07/2022 Component Date Value EXT Hemoglobin 05/07/2022 12.4 EXT Leukocytes 05/07/2022 3.15 (A) EXT Absolute Neutrophil * 05/07/2022 1.70 EXT Lymphs Absolute 05/07/2022 1.1 EXT Platelet Count 05/07/2022 274 RADIOLOGICAL DATA: MRI from 05/02 was reviewed with pt. The findings are more likely to be related to treatment. REPORTS: I personally reviewed current labs and [...] to prior side effects) at 75mg/m2 02/28. Last dose was on 05/05. Recent MRI is more likely to be pseudoprogression. Plan: - continue with adjuvant TMZ chemotherapy, she tolerated cycle 1 TMZ well. She is due to start cycle2 on 05/13/22 next Friday. We will change to the regular 01/19 schedule with TMZ at 150mg/m2. TMZ ordered to [facility]. -continue weekly labs given hx of low ANC/WBC. -Given the MRI changes, we will plan [...] physicians, nurse practitioners/physician assistants, nurses and other family readiness support assistant that specialize in this cancer. Also, reviewed the importance of maintaining ongoing care with local oncology team and primary care physician. General: Associated symptoms: fatigue documented in this encounter Plan of Treatment Upcoming Encounters Date Type Specialty Care Team Description 06/24/2022 Clinical Support Oncology Vini Maki M.D., Ph.D. [address] [place] [phone] Hamida Ram L.G.S.W., M.S.W. 2022 Clinical Communication Admitting/Central Scheduling 07/19/2022 Appointment Radiology Vini Maki M.D., Ph.D. [address] [place] [phone] 07/22/2022 Comprehensive Visit Gastroenterology and Andres Mehta Hepatology Sebastian Lozada [address] [place] [phone] 07/23/2022 Lab Laboratory Medicine iVni Maki M.D., Ph.D. [address] [place] [phone] 07/23/2022 Office Visit Oncology Rebeca Valle P.A.-C., M.S. [address] [place] [phone] documented as of this encounter Visit Diagnoses Diagnosis Malignant Neoplasm Of Brain (HCC) - Prim uyen documented in this encounter
--- OUTSIDE RECORDS SUMMARY | 2022-06-19 11:37 | XMS_ITS | Encounter Summary ---
:1970 Author Organization [facility] Address [address] [place] [address] Care Team Providers Name Role Phone Unavailable Primary Care Provider Unavailable Encounter Details Date Type Department Care Team Description 04/02/2022 Clinical Communication Department of Oncology Desirae Suggs, in [facility]) [place] [phone] 200 [facility] (Work) [place] [address] Social History Tobacco Use Types Packs/Day Years [...] More than 4 times per year 01/07/2022 evangelical services? Do you belong to any clubs [...] have completed or the highest Maulik, MEd, HOSPITAL SUPERINTENDENT, MOISE) degree you have received? Sex Assigned at Date Recorded Female 01/07/2022 11:11 AM CDT documented as of this encounter Miscellaneous Notes Telephone Encounter - Emory Suggs CPT([facility]) - 04/02/2022 11:46 AM CDT Called patient to preschedule a call with an RN Symptom Hr Internship to discuss troubles with severesymptoms as rated on the BSFS. Patient declines assistance from the RN SCM at this time. Call outcome: Scheduling Call - patient declined help Decline reason: Wants to discuss with care team at upcoming appointment [facility] Care Conference documented in this encounter Plan of Treatment Upcoming Encounters Date Type Specialty Care Team Description 06/24/2022 Clinical Support Oncology Vini Maki M.D., Ph.D. [address] [place] [phone] Hamida Ram L.G.Shalonda.Yasmeen., M.S.W. 2022 Clinical Communication Admitting/Central Scheduling 07/19/2022 Appointment Radiology Vini Maki M.D., Ph.D. [address] [place] [phone] 07/22/2022 Comprehensive Visit Gastroenterology and [facility] Sebastian Lozada [address] [place] [phone] 07/23/2022 Lab Laboratory Medicine Vini Maki M.D., Ph.D. [address] [place] [address] [phone] 07/23/2022 Office Visit Oncology Rebeca Valle P.A.-C., M.S. [address] [place] [phone] documented as of this encounter Visit Diagnoses Not on filedocumented in this encounter
--- OUTSIDE RECORDS SUMMARY | 2022-06-19 11:37 | XMS_ITS | Encounter Summary ---
:1970 Author Organization [facility] Address [address] [place] [address] Care Team Providers Name Role Phone Unavailable Primary Care Provider Unavailable Reason for Visit Reason Comments Med Refill TMZ and Ondansetron Encounter Details Date Type Department Care Team Description 04/05/2022 Clinical Communication Department of Latanya Michael Med Refill (TMZ and Oncology in D, R.N., O.C.N. Ondansetron) [place], [facility] [address] [place], [place] [address] [facility] [phone] [place] [address] Social History Tobacco Use Types Packs/Day Years [...] completed or the highest Maulik, MEd, PARK GUARD, MOISE) degree you have received? Sex Assigned at Date Recorded Female 01/07/2022 11:11 AM CDT documented as of this encounter Miscellaneous Notes Telephone Encounter - Stacy Flanagan, R.N. - 04/08/2022 2:41 PM CDT Spoke with pharmacist at [facility] regarding current chemotherapy dose and BSA. Per Dr Maki's last note: Due to prior poor tolerance of TMZ (low ANC, loss of appetitie and fatigue), we will adjust treatment to 75mg/m2 (total 140mg) 7 days on 7 days off. TMZ ordered to [facility]. If she can tolerate this, we may consider switching back to the regular 01/19 schedule with TMZ at 150mg/m2. Telephone Encounter - Trupti Pearson - 04/08/2022 10:04 AM CDT Is there a nurse that is able to call about talk with pharmacy about verifying the dose and BSA? Anhcan be reached at [phone]. Thank you Telephone Encounter - Trupti Pearson - 04/05/2022 2:29 PM CDT TMZ and Ondansetron Redirect from [facility] to [facility] [phone] documented in this encounter Plan of Treatment Upcoming Encounters Date Type Specialty Care Team Description 06/24/2022 Clinical Support Oncology Vini Maki M.D., Ph.D. [address] [place] [phone] Hamida Ram L.G.S.W., M.S.W. 2022 Clinical Communication Admitting/Central Scheduling 07/19/2022 Appointment Radiology Vini Maki M.D., Ph.D. [address] [place] [phone] 07/22/2022 Comprehensive Visit Gastroenterology and Andres Mehta Hepatology Sebastian Lozada [address] [place] [phone] 07/23/2022 Lab Laboratory Medicine Vini Maki M.D., Ph.D. [address] [place] [phone] 07/23/2022 Office Visit Oncology Rebeca Valle P.A.-C., M.S. [address] [place] [phone] documented as of this encounter Visit Diagnoses Diagnosis Malignant Neoplasm Of Brain (HCC) documented in this encounter
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
--- OUTSIDE RECORDS SUMMARY | 2022-06-19 11:37 | XMS_ITS | Encounter Summary ---
:1970 Author Organization [facility] Address [address] [place] [address] Care Team Providers Name Role Phone Unavailable Primary Care Provider Unavailable Reason for Visit Reason Comments HCC Intake Encounter Details Date Type Department Care Team Description 04/04/2022 Clinical Communication Department of Medical Keyur Kevan ruiz HCC Intake Genetics in [place] [address] [place], [place] [address] [facility] [phone] [place], [place] [phone] (Work) [phone] Social History Tobacco Use Types Packs/Day Years [...] or relatives? How often do you attend evangelical or More than 4 times per year 01/07/2022 buddhism services? 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 Sex [...] Support Oncology Vini Maki M.D., Ph.D. [address] [place] [phone] Hamida Ram L.G.SMio, M.S.W. 2022 Clinical Communication Admitting/Central Scheduling 07/19/2022 Appointment Radiology Vini Maki M.D., Ph.D. [address] [place] [phone] 07/22/2022 Comprehensive Visit Gastroenterology and Andres Mehta Hepatology Sebastian Lozada [address] [place] [phone] 07/23/2022 Lab Laboratory Medicine Vini Maki M.D., Ph.D. [address] [place] [phone] 07/23/2022 Office Visit Oncology Rebeca Valle P.A.-C., M.S. [address] [place] [phone] documented as of this encounter Visit Diagnoses Not on filedocumented in this encounter
--- OUTSIDE RECORDS SUMMARY | 2022-06-19 11:37 | XMS_ITS | Encounter Summary ---
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 Sex Assigned at Date Recorded Female 01/07/2022 11:11 AM CDT documented as of this encounter Plan of Treatment Upcoming Encounters Date Type Specialty Care Team Description 06/24/2022 Clinical Support Oncology Vini Maki M.D., Ph.D. [address] [place] [phone] Hamida Ram L.G.S.W., M.S.W. 2022 Clinical Communication Admitting/Central Scheduling 07/19/2022 Appointment Radiology Vini Maki M.D., Ph.D. [address] [place] [phone] 07/22/2022 Comprehensive Visit Gastroenterology and Andres Mehta Hepatheri Lozada M.D. [address] [place] [phone] 07/23/2022 Lab Laboratory Medicine Vini Maki M.D., Ph.D. [address] [place] [phone] 07/23/2022 Office Visit Oncology Rebeca Valle P.A.-C., M.S. [address] [place] [phone] documented as of this encounter Procedures Procedure [...]
--- OUTSIDE RECORDS SUMMARY | 2022-06-19 11:37 | XMS_ITS | Encounter Summary ---
:1970 Author Organization [facility] Address [address] [place] [address] Care Team Providers Name Role Phone Unavailable Primary Care Provider Unavailable Encounter Details Date Type Department Care Team Description 04/04/2022 Lab Department of Infusion Rebeca Valle, Malignant Neoplasm Of Therapy in [place], P.A.Leticia., M .S. 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 Sex Assigned at Date Recorded Female 01/07/2022 11:11 AM CDT documented as of this encounter Plan of Treatment Upcoming Encounters Date Type Specialty Care Team Description 06/24/2022 Clinical Support Oncology Vini Maki M.D., Ph.D. [address] [place] [phone] Hamida Ram L.G.S.W., M.S.W. 2022 Clinical Communication Admitting/Central Scheduling 07/19/2022 Appointment Radiology Vini Maki M.D., Ph.D. [address] [place] [phone] 07/22/2022 Comprehensive Visit Gastroenterology and Andres Mehta Hepatheri Lozada M.D. [address] [place] [phone] 07/23/2022 Lab Laboratory Medicine Vini Maki M.D., Ph.D. [address] [place] [address] [phone] 07/23/2022 Office Visit Oncology Rebeca Valle P.A.-C., M.S. [address] [place] [phone] documented as of this encounter Procedures Procedure [...] City/State/ZIP Code Phon e Number [facility] - [address] [place], [place] [address] [facility] [place] [address] Laboratories-[facility] [address] T4 (Thyroxine), Free (04/04/2022 8:11 AM CDT) athologist Signature T4 (Thyroxine), 1.0 0.9 - 1.7 04/04/2022 DTL Free, S ng/dL 9:15 AM CDT Specimen Anatomical Collection Method Collection Time Receive d Time (Source) Location / / Volume Laterality Blood (Blood, 04/04/2022 8:11 AM 04/04/20 22 8:41 Venous) CDT AM CDT Rebeca Valle P.A.-C., M.S. LAB BLOOD ADD-ON Performing Organization Address City/[facility] Phon e Number [facility] - [address] (ABNORMAL) S-TSH (Thyroid-Stimulating Hormone - Sensitive) (04/04/2022 8:11 AM CDT) athologist Signature TSH, Sensitive 0.08 (L) 0.3 - 4.2 04/04/2022 DTL mIU/L 9:15 AM CDT Specimen Anatomical Collection Method Collection Time Receive d Time (Source) Location / / Volume Laterality Blood (Blood, 04/04/2022 8:11 AM 04/04/20 22 8:41 Venous) CDT AM CDT Rebeca Valle P.A.-C., M.S. LAB BLOOD ADD-ON Performing Organization Address [facility] Phon e Number [facility] - [address] [place] [address] [address] (ABNORMAL) CBC with Differential, Blood (04/04/2022 8:11 AM CDT) [facility] gist Method Time Signature Hemoglobin 12.9 11.6 [...] City/State/ZIP Code Phon e Number [facility] - [address] [place], [place] [address] [facility] [place] [address] Laboratories-[facility] [address] Iodine (04/04/2022 8:11 AM CDT) P alexa Philippe Iodine, S 59 40 - 92 04/05/2022 6:58 SDSC ng/mL PM CDT Comment: ----ADDITIONAL INFORMATION---- This test was developed and its performa nce characteristics determined by [facility] in a manner consistent with CLIA requirements. [...] City/State/ZIP Code Phon e Number [facility] [address] [place] [address] [place] [address] Laboratory Medicine and Pathology [address] [place] documented in this encounter Visit [...]
--- OUTSIDE RECORDS SUMMARY | 2022-06-19 11:37 | XMS_ITS | Encounter Summary ---
:1970 Author Organization [facility] Address [address] [place] [address] Care Team Providers Name Role Phone Unavailable Primary Care Provider Unavailable Reason for Visit Reason Comments Med Refill Encounter Details Date Type Department Care Team Description 04/03/2022 Refill Department of Oncology in Latanya Michael R.N., Med Refill [place], [place] O.C.N. [address] [facility] [address] [place] [phone] [place] [address] Social History Tobacco Use Types Packs/Day Years [...] have completed or the highest Maulik, MEd, BI CONSULTANT, MOISE) degree you have received? Sex Assigned at Date Recorded Female 01/07/2022 11:11 AM CDT documented as of this encounter Plan of Treatment Upcoming Encounters Date Type Specialty Care Team Description 06/24/2022 Clinical Support Oncology Vini Maki M.D., Ph.D. [address] [place] [address] [phone] Hamida Ram L.G.S.W., M.S.W. 2022 Clinical Communication Admitting/Central Scheduling 07/19/2022 Appointment Radiology Vini Maki M.D., Ph.D. [address] [place] [phone] 07/22/2022 Comprehensive Visit Gastroenterology and Andres Mehta Hepatheri Lozada M.D. [address] [place] [phone] 07/23/2022 Lab Laboratory Medicine Vini Maki M.D., Ph.D. [address] [place] [phone] 07/23/2022 Office Visit Oncology Rebeca Valle P.A.-C., M.S. [address] [place] [phone] documented as of this encounter Visit Diagnoses Not on filedocumented in this encounter
--- OUTSIDE RECORDS SUMMARY | 2022-06-19 11:37 | XMS_ITS | Encounter Summary ---
:1970 Author Organization [facility] Address [address] [place] [id number] Care Team Providers Name Role Phone Unavailable Primary Care Provider Unavailable Reason for Referral Outpatient (Routine) - Authorized Specialty Diagnoses / Procedures Referred By Contact Refer red To Contact Diagnoses Malignant Neoplasm Of Brain (HCC) Blurred Vision Hemianopsia Homonymous Chas Shin M.D. [facility] Procedures Refraction 200 [place] [phone] Referral ID Status Reason Start Date Expiration Date Visits V isits Requested Authorized [id number] Authorized 03/26/2022 03/26/2023 1 1 Outpatient (Routine) - Closed Specialty Diagnoses / Procedures Referred By Contact Refer red To Contact Ophthalmology Chas Shin M.D. [place] [facility] [address] [place] [phone] Referral ID Status Reason Start Date Expiration Date Visits Requ ested Visits Authorized [id number] Closed 03/26/2022 03/26/2023 1 1 Reason for Visit Outpatient (Routine) - Closed Specialty Diagnoses / Procedures Referred By Contact Refer red To Contact Ophthalmology Diagnoses Malignant Neoplasm Of Brain (HCC) Bl[facility] [address] [place], [place] [phone] Referral ID Status Reason Start Date Expiration Date Visits Requ ested Visits Authorized [id number] Closed 01/30/2022 01/30/2023 1 1 Encounter Details Date Type Department Care Team Description 03/26/2022 Comprehensive Visit Department of Ladonna Shin Homonymous (Primary Dx); Ophthalmology in Chas Ferro M.D. Malignant Neoplasm Of Brain (HCC); [place], [place] [address] [facility] Blurred Vision [address] [place] [phone] Social History Tobacco Use Types Packs/Day [...] have completed or the highest Maulik, MEd, MARINE CONSULTANT, MOISE) degree you have received? 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 I offered a referral to low vision[facility]vision [facility] but [facility] a [facility] [...] She had a biopsy/resection 12/05/2021 outside at [facility] [place] [place]. She had a 2nd resection here 01/10/2022. [...] Support Oncology Vini Maki M.D., Ph.D. [address] [place] [phone] Hamida Ram L.G.S.W., M.S.W. 2022 Clinical Communication Admitting/Central Scheduling 07/19/2022 Appointment Radiology Vini Maki M.D., Ph.D. [address] [place] [phone] 07/22/2022 Comprehensive Visit Gastroenterology and Andres Mehta Hepatology Sebastian Lozada [address] [place] [phone] 07/23/2022 Lab Laboratory Medicine Vini Maki M.D., Ph.D. [address] [place] [phone] 07/23/2022 Office Visit Oncology Rebeca Valle P.A.-C., M.S. [address] [place] [phone] Scheduled Orders Name Type Priority Associated Diagnoses Order S chedule Refraction Ophthalmology Routine Malignant Neoplasm Of Brain Expected: 06/05/2022 (HCC) (Approximate), Expires: Blurred Vision 06/26/2023 Hemianopsia Homonymous Scheduled Referrals Name Type Priority Associated Order Schedule Diagnoses Ophthalmology office Outpatient Referral Routine Expected: visit (clinic) 05/29/2022 (Approximate), Expires: 06/26/2023 documented as of this encounter Results Automated VF - Extended - OU - Both Eyes (06/11/2022 1:17 PM CDT) Specimen (Source) Anatomical Location Collection Method / Collectio n Time Received Time / Laterality Volume Narrative OPHTHALMOLOGY IMAGING EXAM - 06/11/20 22 3:03 PM CDT Right Eye Automated visual [...] Notes See progress note. Chas Shin M.D. [facility] VISUAL FIELD Performing Organization Address City/State/ZIP Code Phon e Number OPHTHALMOLOGY IMAGING EXAM documented in this encounter Visit Diagnoses Diagnosis Hemianopsia Homonymous - Primary Malignant Neoplasm Of Brain (HCC) Blurred Vision Malignant Neoplasm Of Brain (HCC) Blurred Vision Hemianopsia Homonymous documented in this encounter
--- OUTSIDE RECORDS SUMMARY | 2022-06-19 11:37 | XMS_ITS | Encounter Summary ---
:1970 Author Organization [facility] Address [address] [place] [address] Care Team Providers Name Role Phone Unavailable Primary Care Provider Unavailable Encounter Details Date Type Department Care Team Description 03/25/2022 Ancillary Department of [place], Malignant Neop lasm Procedure Ophthalmology in Chas Ferro M.D. Of [facility] ([facility]) [place], [place] [address] [facility] [address] [place] [phone] Social History Tobacco Use Types Packs/Day Years [...] More than 4 times per year 01/07/2022 anglican services? 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 Sex Assigned at Date Recorded Female 01/07/2022 11:11 AM CDT documented as of this encounter Plan of Treatment Upcoming Encounters Date Type Specialty Care Team Description 06/24/2022 Clinical Support Oncology Vini Maki M.D., Ph.D. [address] [place] [phone] Hamida Ram L.G.S.W., M.S.W. 2022 Clinical Communication Admitting/Central Scheduling 07/19/2022 Appointment Radiology Vini Maki M.D., Ph.D. [address] [place] [phone] 07/22/2022 Comprehensive Visit Gastroenterology and Andres Mehta Hepatheri Lozada M.D. [address] [place] [phone] 07/23/2022 Lab Laboratory Medicine Vini Maki M.D., Ph.D. [address] [place] [address] [phone] 07/23/2022 Office Visit Oncology Rebeca Valle P.A.-C., M.S. [address] [place] [phone] documented as of this encounter Procedures Procedure [...]
--- OUTSIDE RECORDS SUMMARY | 2022-06-19 11:37 | XMS_ITS | Encounter Summary ---
:1970 Author Organization [facility] Address [address] [place] [address] Care Team Providers Name Role Phone Unavailable Primary Care Provider Unavailable Reason for Referral MRI/CAT/PET Scan (Routine) - Closed Specialty Diagnoses / Procedures Referred By Contact Refer red To Contact Radiology Diagnoses Malignant Neoplasm Of Brain (HCC) Vini Maki M.D., [facility] Procedures MR Brain Perfusion without and with IV Contrast MR Brain without and with IV Contrast AR MRI BRAIN WO/W CNTRST Ph.D. 200 [place] [phone] Referral ID Status Reason Start Date Expiration Date Visits Requ ested Visits Authorized [id number] Closed 05/01/2022 05/01/2023 1 1 Reason for Visit MRI/CAT/PET Scan (Routine) - Closed Specialty Diagnoses / Procedures Referred By Contact Refer red To Contact Radiology Diagnoses Malignant Neoplasm Of Brain (HCC) Vini Maki M.D., [facility] Procedures MR Brain Perfusion without and with IV Contrast MR Brain without and with IV Contrast AR MRI BRAIN WO/W CNTRST Ph.D. 200 [place], [place] [phone] Referral ID Status Reason Start Date Expiration Date Visits Requ ested Visits Authorized [id number] Closed 05/01/2022 05/01/2023 1 1 Encounter Details Date Type Department Care Team Description 05/02/2022 Hospital Encounter Department of Vini Maki Neoplasm Of Radiology, Luis Manuel De La Cruz M.D., Ph. D. 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 Sex [...] (HCC) nausea or vomiting (unrelieved by ondansetron). sulfamethoxazole-trimetho Take 1 tablet by 90 tablet [...] Clinical Support Oncology Vini Maki M.D., Ph.D. [address] [place] [phone] Hamida Ram L.G.S.W., M.S.W. 2022 Clinical Communication Admitting/Central Scheduling 07/19/2022 Appointment Radiology Vini Maki M.D., Ph.D. [address] [place] [phone] 07/22/2022 Comprehensive Visit Gastroenterology and Andres Mehta Hepatology Sebastian Lozada [address] [place] [phone] 07/23/2022 Lab Laboratory Medicine Vini Maki M.D., Ph.D. [address] [place] [phone] 07/23/2022 Office Visit Oncology Rebeca Valle P.A.-C., M.S. [address] [place] [phone] documented as of this encounter Procedures Procedure Name Priority Date/Time Associated Comments Diagnosis MR BRAIN RAD - Routine 05/02/2022 9:50 Malignant Results for this PERFUSION WITHOUT (most inpatients AM CDT Neoplasm Of Brain p rocedure are in AND WITH IV and all (HCC) the results CONTRAST outpatients) section. documented in this encounter Results MR Brain Perfusion without and with IV Contrast (05/02/2022 9:50 AM CDT) Anatomical Region Laterality Modality Head, Brain, Neuroradiology RST LOS, Neuroradiology ARZ N/A Magnetic Resonance LOS, Neuroradiology FLA LOS Specimen (Source) Anatomical Collection Method Collection Time Re ceived Time Location / / Volume Laterality 05/02/2022 9:58 AM CDT Impressions 05/02/2022 10:06 AM CDT Continued increase in nodularity margins of the operative cavity, which is associated with increased perfusion which would fav or progression over pseudo-progression. Narrative 05/02/2022 10:06 AM CDT EXAM: MR BRAIN PERFUSION WITHOUT AND WITH IV CONTRAST 3D images were created on an independent workstation as ordered by the treating provider and reviewed by the radiologist to assist in treatment planning. 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 Since prior examination, the previously seen nodular focus of enhancement on the ventral aspect of the operative cavity within the posterio r left temporal lobe has increased (compare series 19, image 82 on today's examination to series 800, image 65 on prior examination with a maximal cross-sectional diameter on today's exam ination of this nodular area measures 1.3 x 1.5 cm versus 0.9 x 1.1 cm on prior examination. This area is also associated with increased perfusion (series 1369, image 76). While in the setting of radiation and TMZ this could represent pseudo-progression, the increased perfusion would argue for progression. Two other small nodular foci (series 19, image 71) along the posterior and inferior mar gin the operative cavity are also more prominent than on prior examination (series 800, image 58 on prior examination). Stable appearance to the nonenhancing T2 signal abnormality adjacent operative cavity filling much of the posterior left temporal lobe, lef t temporoparietal junction, with extension into the left thalamus and left cerebral peduncle. Sta ble appearance the previously described two foci of more subtle increased T2 signal without appre ciable mass effect within the left insula and left frontal lobe. Remainder negative. Procedure Note Chandan Phipps M.D. - 05/02/2022Fo rmatting of this note might be different from the original. EXAM: MR BRAIN PERFUSION WITHOUT AND WIT H IV CONTRAST 3D images were created on an independent workstation as ordered by the treating provider and reviewed by the radiologist to assist in treatment planning. 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 Since prior examination, the previously seen nodular focus of enhancement on the ventral aspect of the operative cavity within the posterio r left temporal lobe has increased (compare series 19, image 82 on today's examination to series 800, image 65 on prior examination with a maximal cross-sectional diameter on today's exam ination of this nodular area measures 1.3 x 1.5 cm versus 0.9 x 1.1 cm on prior examination. This area is also associated with increased perfusion (series 1369, image 76). While in the setting of radiation and TMZ this could represent pseudo-progression, the increased perfusion would argue for progression. Two other small nodular foci (series 19, image 71) along the posterior and inferior mar gin the operative cavity are also more prominent than on prior examination (series 800, image 58 on prior examination). Stable appearance to the nonenhancing T2 signal abnormality adjacent operative cavity filling much of the posterior left temporal lobe, lef t temporoparietal junction, with extension into the left thalamus and left cerebral peduncle. Sta ble appearance the previously described two foci of more subtle increased T2 signal without appre ciable mass effect within the left insula and left frontal lobe. Remainder negative. IMPRESSION: Continued increase in nodularity margins of the operative cavity, which is associated with increased perfusion which would fav or progression over pseudo-progression. Vini Maki M.D., Ph.D. IMG MRI PROCEDURES documented in this encounter Visit Diagnoses Diagnosis Malignant Neoplasm Of Brain (HCC) documented in this encounter Administered Medications Inactive Administered Medications - up to 3 most recent administrations Medication Order MAR Action Action Date Dose Rate Site gadobutrol injection 0.01-30 mL Given 05/02/2022 9:40 AM CDT 9 m L (GADAVIST) 0.01-30 mL, intravenous, Once in imaging, contrast, Starting on Bee 05/02/22 at 0855, For 1 dose, Imaging Protocol Orders, Dose per Radiant Medication Guidelines Intrathecal doses greater than 0.25 mL not recommended. sodium chloride (PF) 0.9 % injection 1-1 00 mL Given 05/02/2022 9:40 AM CDT 20 mL 1-100 mL, intravenous, Once, On Bee 05/02/22 at 0900, For 1 dose, Imaging Protocol Orders documented in this encounter
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
--- OUTSIDE RECORDS SUMMARY | 2022-06-19 11:37 | XMS_ITS | Encounter Summary ---
:1970 Author Organization [facility] Address [address] [place] [phone] Care Team Providers Name Role Phone Unavailable Primary Care Provider Unavailable Reason for Referral MRI/CAT/PET Scan (Routine) - Closed Specialty Diagnoses / Procedures Referred By Contact Refer red To Contact Radiology Diagnoses Malignant Neoplasm Of Brain (HCC) Vini Maki M.D., [facility] Procedures MR Brain Perfusion without and with IV Contrast MR Brain without and with IV Contrast Ph.D. [address] [place] [phone] Referral ID Status Reason Start Date Expiration Date Visits Requ ested Visits Authorized [id number] Closed 04/04/2022 04/04/2023 1 1 Outpatient (Routine) - Closed Specialty Diagnoses / Procedures Referred By Contact Refer red To Contact Oncology Vini Maki M.D ., Ph.D. [facility] [address] [place] [phone] Referral ID Status Reason Start Date Expiration Date Visits Requ ested Visits Authorized [id number] Closed 04/04/2022 04/04/2023 1 1 Reason for Visit Outpatient (Routine) - Closed Specialty Diagnoses / Procedures Referred By Contact Refer red To Contact Oncology Rebeca Valle P .A.-C., M.S. [place] [address] [place], [place] [phone] Referral ID Status Reason Start Date Expiration Date Visits Requ ested Visits Authorized [id number] Closed 02/20/2022 02/20/2023 1 1 Encounter Details Date Type Department Care Team Description 04/04/2022 Office Visit Department of Oncology Vini Maki M alignant Neoplasm Of in [place], Sebastian, Ph.D. Brain (HCC) (Primary [place] [address] [facility] Dx) [address] [place] [phone] Social History Tobacco Use [...] have completed or the highest Maulik, MEd, EGG GATHERER, MOISE) degree you have received? Sex Assigned [...] with steroids and Keppra and transferred to [facility]. 11/30/2021 Imaging MRI of the brain demonstrated [...] Referral to Dr. Shelbie Ackerman at the [facility]. Discussed that it was okay for the patient to proceed with chemotherapy and radiation 1 month from biopsy date. Also discussed that itwas okay for the patient to travel on a commercial air flight approximately 1 month from biopsy as she was planning for a trip to [place] with her significant other in December. 12/24/[address] Shelbie Ackerman who reviewed the patient's case with Dr. Dunlap and he recommended against additional surgery. Dr. Macias recommended proceeding with a combination of radiation therapy plus temozolomide. Referral to Radiation Oncology at [facility] in [place]. 01/10/2022 Surgery and Procedures Left temporoparietal stereotactic craniotomy with tumor resection, speech mapping with Dr. Ivey. PATHOLOGY: A-D. Brain, left temporal lesion, resection: Glioblastoma, IDH-wildtype (DEPARTMENTAL SHIPPING CLERK WHO grade 4), clinically residual. See comment. 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 The biopsy specimen lacked microvascular proliferation and tumor necrosis. By immunohistochemistry, the tumor cells were negative for IDH1-R132H and showed retained ATRX expression. 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 Testing in 2021 from [facility]. As of 2021, there is [...] on 7 days off. TMZ ordered to [facility]. If she can tolerate this, we [...] physicians, nurse practitioners/physician assistants, nurses and other presidential support specialist that specialize in this cancer. Also, reviewed the importance of maintaining ongoing care with local oncology team and primary care physician. documented in this encounter Plan of Treatment Upcoming Encounters Date Type Specialty Care Team Description 06/24/2022 Clinical Support Oncology Vini Maki M.D., Ph.D. [address] [place] [phone] Hamida Ram L.G.S.W., M.S.W. 2022 Clinical Communication Admitting/Central Scheduling 07/19/2022 Appointment Radiology Vini Maki M.D., Ph.D. [address] [place] [phone] 07/22/2022 Comprehensive Visit Gastroenterology and Andres Mehta Hepatology Sebastian Lozada [address] [place] [phone] 07/23/2022 Lab Laboratory Medicine Vini Maki M.D., Ph.D. [address] [place] [phone] 07/23/2022 Office Visit Oncology Rebeca Valle P.A.-C., M.S. [address] [place] [phone] Scheduled Referrals Name Type Priority Associated Diagnoses Order S [facility] Oncology office Outpatient Referral Routine Expec anayeli: visit (clinic) 05/07/2022 Treatment/Toxicity (Approxim ate), (MD/CRAIG); Brain Expires: 07/05/2023 documented as of this encounter Results MR [...] Ph.D. LAB BLOOD ADD-ON Performing Organization Address City/State/ZIP Code Phon e Number [facility] - [address] [place], [place] [address] [facility] [address] Laboratories-[facility] [address] (ABNORMAL) Comprehensive Metabolic Panel (06/11/2022 7:22 AM [...] Ph.D. LAB BLOOD ADD-ON Performing Organization Address City/State/ZIP Code Phon e Number [facility] - [address] [place], [place] [address] [facility] [address] Laboratories-[facility] [address] documented in this encounter Visit Diagnoses Diagnosis Malignant Neoplasm Of Brain (HCC) - Prim uyen Malignant Neoplasm Of Brain (HCC) documented in this encounter
--- OUTSIDE RECORDS SUMMARY | 2022-06-19 11:37 | XMS_ITS | Encounter Summary ---
:1970 Author Organization [facility] Address [address] [place] [address] Care Team Providers Name Role Phone Unavailable Primary Care Provider Unavailable Reason for Visit Reason Comments 04/23/22 labs Encounter Details Date Type Department Care Team Description 04/24/2022 Clinical Communication Department of Latanya Michael, 04/23/22 labs Oncology in R.N., O.C.N. [place], [place] [address] [facility] [address] [place] [phone] Social History Tobacco Use Types Packs/Day Years [...] completed or the highest Maulik, MEd, GAS PRODUCER, MOISE) degree you have received? Sex Assigned at Date Recorded Female 01/07/2022 11:11 AM CDT documented as of this encounter Miscellaneous Notes Telephone Encounter - Maryse Garcia R.N. - 04/24/2022 3:24 PM CDT Labs have been reviewed and verified. Telephone Encounter - Trupti Pearson - 04/24/2022 11:46 AM CDT Labs have been entered and are ready for review. Telephone Encounter - Stacy Flanagan R.N. - 04/24/2022 8:06 AM CDT Please enter labs. Thank you. documented in this encounter Plan of Treatment Upcoming Encounters Date Type Specialty Care Team Description 06/24/2022 Clinical Support Oncology Vini Maki M.D., Ph.D. [address] [place] [phone] Hamida Ram L.G.S.W., M.S.W. 2022 Clinical Communication Admitting/Central Scheduling 07/19/2022 Appointment Radiology Vini Maki M.D., Ph.D. [address] [place] [phone] 07/22/2022 Comprehensive Visit Gastroenterology and Andres Mehta Hepatology Sebastian Lozada [address] [place] [phone] 07/23/2022 Lab Laboratory Medicine Vini Maki M.D., Ph.D. [address] [place] [phone] 07/23/2022 Office Visit Oncology Rebeca Valle P.A.-C., M.S. [address] [place] [phone] documented as of this encounter Procedures Procedure Name Priority Date/Time Associated Diagnosis Comme nts HEMATOLOGY/ONCOLOGY Routine 04/23/2022 11:38 AM R esults for this - BLOOD, EXTERNAL CDT procedure are in LAB RESULTS the results section. documented in this encounter Results (ABNORMAL) Hematology/Oncology - Blood, External Lab Results (04/23/2022 11:38 AM CDT) Analysis Performed At Patho logist Time Signature EXT Hemoglobin 12.4 12 - 18 OTHER (SPECIFY IN LOG SORTER) EXT Leukocytes 3.49 (A) 4.5 - 11 OTHER (SPECIFY IN LOG SORTER) EXT Absolute 2 1.7 - 7 OTHER Neutrophil (SPECIFY IN Count LOG SORTER) EXT Lymphs 1.2 0.90 - 2.9 OTHER Absolute (SPECIFY IN LOG SORTER) EXT Platelet 268 140 - 440 OTHER Count (SPECIFY IN LOG SORTER) Specimen (Source) Anatomical Collection Method Collection Time Re ceived Time Location / / Volume Laterality Blood 04/23/2022 11:38 AM CDT Narrative This result has an attachment that is no t available. Historical Provider LAB BLOOD NON ADD-ON Performing Organization Address City/State/ZIP Code Phon e Number OTHER (SPECIFY IN LOG SORTER) OTHER (SPECIFY IN LOG SORTER) N/A documented in this encounter Visit Diagnoses Not on filedocumented in this encounter
--- OUTSIDE RECORDS SUMMARY | 2022-06-19 11:37 | XMS_ITS | Encounter Summary ---
:1970 Author Organization [facility] Address [address] [place] [address] Care Team Providers Name Role Phone Unavailable Primary Care Provider Unavailable Reason for Visit Outpatient (Routine) - Closed Specialty Diagnoses / Procedures Referred By Contact Refer red To Contact Neurological Surgery Diagnoses Tumor Brain (HCC) Christina Tai [facility] Neo Henderson., M.S. [address] [place] [phone] Referral ID Status Reason Start Date Expiration Date Visits Requ ested Visits Authorized [id number] Closed 01/11/2022 01/11/2023 1 1 Encounter Details Date Type Department Care Team Description 04/04/2022 Office Visit Department of Chalres Ivey, Tumor Bra in (HCC) Neurologic Surgery in M.DSanjuanita, Ph.D . [place], [place] [address] [place] [address] [place] [phone] Social History Tobacco Use Types Packs/Day Years [...] No 01/07/2022 organizations such as restorationism groups, [employer], [employer] or athletic groups, or school groups? How [...] have completed or the highest Maulik, MEd, CORDUROY CUTTER OPERATOR, MOISE) degree you have received? Sex [...] biopsy and subtotal resection on 12/05/21 at [facility] followed by left temporoparietal craniotomy on Jan [...] biopsy and subtotal resection on 12/05/21 at [facility] followed by left temporoparietal craniotomy on Jan [...] tumor progression. 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 Plan is to follow up as needed seems she has follow-up with oncology, Ophthalmology, and Endocrinology. Joel Pride MD Neurosurgical Oncology Clinical Fellow Department of Neurosurgery [place], [place] Associated attestation - Charles Ivey M.D., [...] Support Oncology Vini Maki M.D., Ph.D. [address] [place] [phone] Hamida Ram L.G.S.W., M.S.W. 2022 Clinical Communication Admitting/Central Scheduling 07/19/2022 Appointment Radiology Vini Maki M.D., Ph.D. [address] [place] [phone] 07/22/2022 Comprehensive Visit Gastroenterology and Andres Mehta Hepatology Sebastian Lozada [address] [place] [address] [phone] 07/23/2022 Lab Laboratory Medicine Vini Maki M.D., Ph.D. [address] [place] [phone] 07/23/2022 Office Visit Oncology Rebeca Valle P.A.-C., M.S. [address] [place] [phone] documented as of this encounter Visit Diagnoses Diagnosis Tumor Brain (HCC) documented in this encounter
--- OUTSIDE RECORDS SUMMARY | 2022-06-19 11:37 | XMS_ITS | Encounter Summary ---
:1970 Author Organization [facility] Address [address] [place] [address] Care Team Providers Name Role Phone Unavailable [...] have completed or the highest Maulik, MEd, RESIDENT SERVICES DIRECTOR, MOISE) degree you have received? Sex Assigned at Date Recorded Female 01/07/2022 11:11 AM CDT documented as of this encounter Plan of Treatment Upcoming Encounters Date Type Specialty Care Team Description 06/24/2022 Clinical Support Oncology Vini Maki M.D., Ph.D. [address] [place] [address] [phone] Hamida Ram L.G.S.W., M.S.W. 2022 Clinical Communication Admitting/Central Scheduling 07/19/2022 Appointment Radiology Vini Maki M.D., Ph.D. [address] [place] [phone] 07/22/2022 Comprehensive Visit Gastroenterology and Andres Mehta Hepatheri Lozada M.D. [address] [place] [phone] 07/23/2022 Lab Laboratory Medicine Vini Maki M.D., Ph.D. [address] [place] [phone] 07/23/2022 Office Visit Oncology Rebeca Valle P.A.-C., M.S. [address] [place] [phone] documented as of this encounter Procedures Procedure [...]
--- OUTSIDE RECORDS SUMMARY | 2022-06-19 11:37 | XMS_ITS | Encounter Summary ---
:1970 Author Organization [facility] Address [address] [place] [address] Care Team Providers Name Role Phone Unavailable Primary Care Provider Unavailable Reason for Visit Outpatient (Routine) - Closed Specialty Diagnoses / Procedures Referred By Contact Refer red To Contact Endocrinology Diagnoses Hyperthyroidism Subclinical Farzana Allen M.D. [facility] [address] [place] [phone] Referral ID Status Reason Start Date Expiration Date Visits Requ ested Visits Authorized [id number] Closed 02/27/2022 02/27/2023 1 1 Encounter Details Date Type Department Care Team Description 03/29/2022 Comprehensive Visit Division of Arabella Allen M.D. [address] [place] [phone] Hyperthyroidism (Primary Dx); Endocrinology in Jayna Dejesus M.B.BSanjuanitaSSanjuanita [address] [place] [address] [phone] Hyperthyroidism Subclinical; [place], [place] Abnormal Thyroid Blood Test [address] [place] [phone] Social History Tobacco Use Types Packs/Day Years [...] have completed or the highest Maulik, MEd, ARCHITECT MANAGER, MOISE) degree you have received? Sex [...] goiter that has been evaluated outside of [facility] and found to be benign and euthyroid. [...] Bobby Gunn M.D. CT CT Job ID: [id number] Jayna Dejesus M.B.B.S. - 03/29/2022 1:30 PM [...] or hormone replacement. In early 2021, she was identified to have GBM - biopsy on 12/05/2021 followed by surgery on 01/10/2022. She [...] after testing The case was discussed with legal nurse consultant, Dr. Gunn, who is in agreement with this assessment and plan for treatment. Kierra Gautam. Endocrinology Fellow, [phone] 03/31/22 documented in this encounter Plan of Treatment Upcoming Encounters Date Type Specialty Care Team Description 06/24/2022 Clinical Support Oncology Vini Maki M.D., Ph.D. [address] [place] [phone] Hamida Ram L.G.S.W., M.S.W. 2022 Clinical Communication Admitting/Central Scheduling 07/19/2022 Appointment Radiology Vini Maki M.D., Ph.D. [address] [place] [phone] 07/22/2022 Comprehensive Visit Gastroenterology and Andres Mehta Hepatheri Lozada M.D. [address] [place] [address] [phone] 07/23/2022 Lab Laboratory Medicine Vini Maki M.D., Ph.D. [address] [place] [phone] 07/23/2022 Office Visit Oncology Rebeca Valle P.A.-C., M.S. [address] [place] [address] [phone] documented as of this encounter Visit Diagnoses Diagnosis Hyperthyroidism - Primary Hyperthyroidism Subclinical Abnormal Thyroid Blood Test documented in this encounter
--- OUTSIDE RECORDS SUMMARY | 2022-06-19 11:37 | XMS_ITS | Encounter Summary ---
:1970 Author Organization [facility] Address [address] [place] [address] Care Team Providers Name Role Phone Unavailable Primary Care Provider Unavailable Reason for Visit Reason Comments 05/07/22 labs Encounter Details Date Type Department Care Team Description 05/07/2022 Clinical Communication Department of Latanya Michael, 05/07/22 labs Oncology in R.N., O.C.N. [place], [place] [address] [facility] [address] [place] [phone] Social History Tobacco Use Types Packs/Day Years [...] completed or the highest Maulik, MEd, MANAGER FUND, MOISE) degree you have received? Sex Assigned at Date Recorded Female 01/07/2022 11:11 AM CDT documented as of this encounter Miscellaneous Notes Telephone Encounter - Latanya Michael R.N., O.C.N. - 05/08/2022 9:13 AM CDT Labs Verified Telephone Encounter - Trupti Pearson - 05/08/2022 7:35 AM CDT Labs have been entered and are ready for review. Telephone Encounter - Stacy Flanagan R.N. - 05/07/2022 3:44 PM CDT Please enter labs. Thank you. documented in this encounter Plan of Treatment Upcoming Encounters Date Type Specialty Care Team Description 06/24/2022 Clinical Support Oncology Vini Maki M.D., Ph.D. [address] [place] [phone] Hamida Ram L.G.S.W., M.S.W. 2022 Clinical Communication Admitting/Central Scheduling 07/19/2022 Appointment Radiology Vini Maki M.D., Ph.D. [address] [place] [phone] 07/22/2022 Comprehensive Visit Gastroenterology and Andres Mehta Hepatology Sebastian Lozada [address] [place] [phone] 07/23/2022 Lab Laboratory Medicine Vini Maki M.D., Ph.D. [address] [place] [phone] 07/23/2022 Office Visit Oncology Rebeca Valle P.A.-C., M.S. [address] [place] [address] [phone] documented as of this encounter Procedures Procedure Name Priority Date/Time Associated Diagnosis Comme nts HEMATOLOGY/ONCOLOGY Routine 05/07/2022 11:50 AM R esults for this - BLOOD, EXTERNAL CDT procedure are in LAB RESULTS the results section. documented in this encounter Results (ABNORMAL) Hematology/Oncology - Blood, External Lab Results (05/07/2022 11:50 AM CDT) Analysis Performed At Patho logist Time Signature EXT Hemoglobin 12.4 12 - 16 OTHER (SPECIFY IN STUFFER) EXT Leukocytes 3.15 (A) 4.5 - 11 OTHER (SPECIFY IN STUFFER) EXT Absolute 1.70 1.7 - 7 OTHER Neutrophil (SPECIFY IN Count STUFFER) EXT Lymphs 1.1 0.90 - 2.9 OTHER Absolute (SPECIFY IN STUFFER) EXT Platelet 274 140 - 440 OTHER Count (SPECIFY IN STUFFER) Specimen (Source) Anatomical Collection Method Collection Time Re ceived Time Location / / Volume Laterality Blood 05/07/2022 11:50 AM CDT Narrative This result has an attachment that is no t available. Historical Provider LAB BLOOD NON ADD-ON Performing Organization Address City/State/ZIP Code Phon e Number OTHER (SPECIFY IN STUFFER) OTHER (SPECIFY IN STUFFER) N/A documented in this encounter Visit Diagnoses Not on filedocumented in this encounter
--- OUTSIDE RECORDS SUMMARY | 2022-06-19 11:37 | XMS_ITS | Encounter Summary ---
:1970 Author Organization [facility] Address [address] [place] [address] Care Team Providers Name Role Phone Unavailable Primary Care Provider Unavailable Reason for Visit Reason Comments Med Refill Temozolomide, ondansetron Encounter Details Date Type Department Care Team Description 05/06/2022 Refill Department of Oncology Vini Maki M ed Refill (Temozolomide, in [facility] monica Cortes, Ph.D. ondansetron/) [address] [facility] [address] [place], [place] [phone] [place], [place] [phone] Social History Tobacco Use Types Packs/Day Years [...] have completed or the highest Maulik, MEd, PACKAGE SEALER MACHINE, MOISE) degree you have received? Sex Assigned at Date Recorded Female 01/07/2022 11:11 AM CDT documented as of this encounter Miscellaneous Notes Telephone Encounter - Marsha Severino C.Ph.T. - 05/06/2022 12:21 PM CDT Surescripts created refill request. documented in this encounter Plan of Treatment Upcoming Encounters Date Type Specialty Care Team Description 06/24/2022 Clinical Support Oncology Vini Maki M.D., Ph.D. [address] [place] [phone] Hamida Ram L.G.SMio, M.S.W. 2022 Clinical Communication Admitting/Central Scheduling 07/19/2022 Appointment Radiology Vini Maki M.D., Ph.D. [address] [place] [phone] 07/22/2022 Comprehensive Visit Gastroenterology and Andres Mehta Hepatology Sebastian Lozada [address] [place] [address] [phone] 07/23/2022 Lab Laboratory Medicine Vini Maki M.D., Ph.D. [address] [place] [address] [phone] 07/23/2022 Office Visit Oncology Rebeca Valle P.A.-C., M.S. [address] [place] [phone] documented as of this encounter Visit Diagnoses Diagnosis Malignant Neoplasm Of Brain (HCC) documented in this encounter
--- OUTSIDE RECORDS SUMMARY | 2022-06-19 11:37 | XMS_ITS | Encounter Summary ---
:[address] [facility] Address [address] [place] [address] Care Team Providers Name Role Phone Unavailable Primary Care Provider Unavailable Reason for Referral MRI/CAT/PET Scan (Routine) - Closed Specialty Diagnoses / Procedures Referred By Contact Refer red To Contact Radiology Diagnoses [facility]) [facility] Perfusion without and with IV Contrast P.Andrew., M.S. 200 [place], [place] [phone] Referral ID Status Reason Start Date Expiration Date Visits Requ ested Visits Authorized [id number] Closed 01/11/2022 01/11/2023 1 1 Reason for Visit MRI/CAT/PET Scan (Routine) - Closed Specialty Diagnoses / Procedures Referred By Contact Refer red To Contact Radiology Diagnoses Tumor Brain (HCC) Christina Tai [facility] Procedures MR Brain Perfusion without and with IV Contrast PJarad., M.S. [address] [place] [phone] Referral ID Status Reason Start Date Expiration Date Visits Requ ested Visits Authorized [id number] Closed 01/11/2022 01/11/2023 1 1 Encounter Details Date Type Department Care Team Description 04/04/2022 Hospital Encounter Department of Tai, Tumor Stephanie aiheather (HCC) Radiology, Luis Alberto Mcgovern, in P.AValdemar, M.S. [place], 200 [place], [place] 200 [facility] [address] [place], [place] [phone] (Work) [phone] Social History Tobacco Use Types Packs/Day Years [...] completed or the highest Maulik, MEd, MAINTENANCE MECHANIC 2ND SHIFT, MOISE) degree you have received? Sex Assigned [...] Take 1 tablet by 0 mouth daily. temozolomide (TEMODAR) Take 1 capsule (140 14 capsule 0 02/202204/11/2022 140 mg mg total) by mouth capsuleIndications: daily. Take 1 hr Malignant Neoplasm Of before radiation Mon Brain (HCC) to Fri and in the morning on Sat and Sun. On empty stomach. aspirin 325 mg tablet Take 325 mg by mouth 0 06/12/2022 every 6 (six) hours as needed for [...] Oncology Vini Maki M.D., Ph.D. [address] [place] [phone] Hamida Ram L.G.S.W., M.S.W. 2022 Clinical Communication Admitting/Central Scheduling 07/19/2022 Appointment Radiology Vini Maki M.D., Ph.D. [address] [place] [phone] 07/22/2022 Comprehensive Visit Gastroenterology and Andres Mehta Hepatology Sebastian Lozada [address] [place] [phone] 07/23/2022 Lab Laboratory Medicine Vini Maki M.D., Ph.D. [address] [place] [phone] 07/23/2022 Office Visit Oncology Rebeca Valle P.A.-C., M.S. [address] [place] [phone] documented as of this encounter Procedures Procedure [...] VIN N/A Magnetic Resonance LOS, Neuroradiology FLA LOS [...] with biopsy performed 12/05/2021 and outside hospital. [place] review of out side pathology indicates IDH [...] with biopsy performed 12/05/2021 and outside hospital. [place] review of out side pathology indicates IDH [...]
--- OUTSIDE RECORDS SUMMARY | 2022-06-19 11:37 | XMS_ITS | Encounter Summary ---
:[address] [facility] Address [address] [place] [address] Care Team Providers Name Role Phone Unavailable Primary Care Provider Unavailable Encounter Details Date Type Department Care Team Description 05/06/2022 Clinical Communication Visit Review in [place], [place] 200 [place] [address] Social History Tobacco Use Types [...] More than 4 times per year 01/07/2022 druze services? Do you belong to any clubs [...] completed or the highest Maulik, MEd, BRIDGE MAINTENANCE WORKER, MOISE) degree you have received? Sex Assigned at Date Recorded Female 01/07/2022 11:11 AM CDT documented as of this encounter Plan of Treatment Upcoming Encounters Date Type Specialty Care Team Description 06/24/2022 Clinical Support Oncology Vini Maki M.D., Ph.D. [address] [place] [phone] Hamida Ram L.G.S.W., M.S.W. 2022 Clinical Communication Admitting/Central Scheduling 07/19/2022 Appointment Radiology Vini Maki M.D., Ph.D. [address] [place] [phone] 07/22/2022 Comprehensive Visit Gastroenterology and Andres Mehta Hepatology Sebastian Lozada [address] [place] [address] [phone] 07/23/2022 Lab Laboratory Medicine Vini Maki M.D., Ph.D. [address] [place] [phone] 07/23/2022 Office Visit Oncology Rebeca Valle P.A.-C., M.S. [address] [place] [phone] documented as of this encounter Visit Diagnoses Not on filedocumented in this encounter
--- OUTSIDE RECORDS SUMMARY | 2022-06-19 11:38 | XMS_ITS | Encounter Summary ---
:1970 Author Organization [facility] Address [address] [place] [address] Care Team Providers Name Role Phone Unavailable Primary Care Provider Unavailable Reason for Visit Radiation Therapy (Routine) - Closed Specialty Diagnoses / Procedures Referred By Contact Refer red To Contact Diagnoses Malignant Neoplasm Of Brain (HCC) Stehpanie Gleason M.D. [facility] Radiation Oncology Procedures Prior Auth Rad Tx CT IMRT COMPLEX [address] [place], [place] [phone] [facility] [phone] Referral ID Status Reason Start Date Expiration Date Visits Requ ested Visits Authorized [id number] Closed 01/31/2022 12/31/2022 30 30 Encounter Details Date Type Department Care Team Description 03/13/2022 Hospital Encounter Department of Radiation Jacquelyn Gleason I., Oncology in [place] [address] [facility] [address] [place] [phone] Social History Tobacco Use Types Packs/Day Years [...] completed or the highest Maulik, MEd, PROCESS IMPROVEMENT SPECIALIST, MOISE) degree you have received? Sex [...] score 1-3 of 10, headaches or fever. ondansetron (ZOFRAN) 8 mg Take 1 tablet [...] 1 hr Malignant Neoplasm Of before radiation Brain (HCC) Mon to Fri and in the morning on Sat and Sun. On empty stomach. aspirin 325 mg tablet Take 325 mg by 0 06/12/2022 mouth every 6 (six) hours as needed for pain. levETIRAcetam (KEPPRA) Take 1 tablet 28 tablet 0 01/24/2022 04/03/2022 1,000 mg tablet (1,000 mg total) by mouth 2 (two) times a day. documented as of this encounter Plan of Treatment Upcoming Encounters Date Type Specialty Care Team Description 06/24/2022 Clinical Support Oncology Vini Maki M.D., Ph.D. [address] [place] [phone] Hamida Ram L.G.S.W., M.S.W. 2022 Clinical Communication Admitting/Central Scheduling 07/19/2022 Appointment Radiology Vini Maki M.D., Ph.D. [address] [place] [phone] 07/22/2022 Comprehensive Visit Gastroenterology and Andres Mehta Hepatology Sebastian Lozada [address] [place] [phone] 07/23/2022 Lab Laboratory Medicine Vini Maki M.D., Ph.D. [address] [place] [phone] 07/23/2022 Office Visit Oncology Rebeca Valle P.A.-C., M.S. [address] [place] [phone] documented as of this encounter Visit Diagnoses Not on filedocumented in this encounter
--- OUTSIDE RECORDS SUMMARY | 2022-06-19 11:38 | XMS_ITS | Encounter Summary ---
:1970 Author Organization [facility] Address [address] [place] [address] Care Team Providers Name Role Phone Unavailable Primary Care Provider Unavailable Reason for Visit Radiation Therapy (Routine) - Closed Specialty Diagnoses / Procedures Referred By Contact Refer red To Contact Diagnoses Malignant Neoplasm Of Brain (HCC) Stephanie Gleason M.D. [facility] Radiation Oncology Procedures Prior Auth Rad Tx [place] IMRT COMPLEX [address] [place], [place] [phone] [facility] [address] Referral ID Status Reason Start Date Expiration Date Visits Requ ested Visits Authorized [id number] Closed 01/31/2022 12/31/2022 30 30 Encounter Details Date Type Department Care Team Description 03/05/2022 Hospital Encounter Department of Radiation Jacquelyn Gleason I., Oncology in [place] [address] [facility] [address] [place] [phone] Social History Tobacco Use Types Packs/Day Years [...] have completed or the highest Maulik, MEd, POWER WASHER, MOISE) degree you have received? Sex Assigned [...] 10, headaches or fever. ondansetron (ZOFRAN) 8 Take 1 tablet (8 [...] before Temozolomide on Days 1 to 42. temozolomide (TEMODAR) Take 1 capsule (140 14 [...] Support Oncology Vini Maki M.D., Ph.D. 200 [place] [phone] Hamida Ram L.G.S.W., M.S.W. 2022 Clinical Communication Admitting/Central Scheduling 07/19/2022 Appointment Radiology Vini Maki M.D., Ph.D. [address] [place] [phone] 07/22/2022 Comprehensive Visit Gastroenterology and Andres Mehta Hepatheri Lozada M.D. [address] [place] [address] [phone] 07/23/2022 Lab Laboratory Medicine Vini Maki M.D., Ph.D. [address] [place] [address] [phone] 07/23/2022 Office Visit Oncology Rebeca Valle P.A.-C., M.S. [address] [place] [address] [phone] documented as of this encounter Visit Diagnoses Not on filedocumented in this encounter
--- OUTSIDE RECORDS SUMMARY | 2022-06-19 11:38 | XMS_ITS | Encounter Summary ---
:1970 Author Organization [facility] Address [address] [place] [address] Care Team Providers Name Role Phone Unavailable Primary Care Provider Unavailable Reason for Visit Radiation Therapy (Routine) - Closed Specialty Diagnoses / Procedures Referred By Contact Refer red To Contact Diagnoses Malignant Neoplasm Of Brain (HCC) Stephanie Gleason M.D. [facility] Radiation Oncology Procedures Prior Auth Rad Tx [place] IMRT COMPLEX [address] [place], [place] [phone] [facility] [place] [address] Referral ID Status Reason Start Date Expiration Date Visits Requ ested Visits Authorized [id number] Closed 01/31/2022 12/31/2022 30 30 Encounter Details Date Type Department Care Team Description 03/06/2022 Hospital Encounter Department of Radiation Jacquelyn Gleason I., Oncology in [place] [address] [facility] [address] [place] [phone] Social History Tobacco Use Types Packs/Day Years [...] have completed or the highest Maulik, MEd, TOOTH CLERK, MOISE) degree you have received? Sex [...] Support Oncology Vini Maki M.D., Ph.D. 200 [place] [phone] Hamida Ram L.G.S.W., M.S.W. 2022 Clinical Communication Admitting/Central Scheduling 07/19/2022 Appointment Radiology Vini Maki M.D., Ph.D. [address] [place] [phone] 07/22/2022 Comprehensive Visit Gastroenterology and Andres Mehta Hepatheri Lozada M.D. [address] [place] [address] [phone] 07/23/2022 Lab Laboratory Medicine Vini Maki M.D., Ph.D. [address] [place] [address] [phone] 07/23/2022 Office Visit Oncology Rebeca Valle P.A.-C., M.S. [address] [place] [address] [phone] documented as of this encounter Visit Diagnoses Not on filedocumented in this encounter
--- OUTSIDE RECORDS SUMMARY | 2022-06-19 11:38 | XMS_ITS | Encounter Summary ---
:1970 Author Organization [facility] Address [address] [place] [address] Care Team Providers Name Role Phone Unavailable Primary Care Provider Unavailable Reason for Referral Outpatient (Routine) - Closed Specialty Diagnoses / Procedures Referred By Contact Refer red To Contact Clinical Genomics Diagnoses Genetic Susceptibility To Other Malignant Neoplasm Sanya Mehta [place] M.D. [address] [place] [address] Referral ID Status Reason Start Date Expiration Date Visits Requ ested Visits Authorized [id number] Closed 03/08/2022 03/08/2023 1 1 Encounter Details Date Type Department Care Team Description 03/08/2022 Orders Only Department of Medical Martín, Geneti c Susceptibility Genetics in Sejal Liz M.S., To Other [place], [place] CGC Neoplasm (Primary Dx) [address] [facility] [address] [place] [address] [phone] Social History Tobacco Use Types Packs/Day Years [...] or relatives? How often do you attend pentecostalism or More than 4 times per year 01/07/2022 confucianist services? Do you belong to any clubs or No 01/07/2022 organizations such as pentecostalism groups, unions, fraternal or athletic groups, or [...] completed or the highest Maulik, MEd, FLIGHT ENGINEER INSTRUCTOR, MOISE) degree you have received? Sex Assigned at Date Recorded Female 01/07/2022 11:11 AM CDT documented as of this encounter Plan of Treatment Upcoming Encounters Date Type Specialty Care Team Description 06/24/2022 Clinical Support Oncology Vini Maki M.D., Ph.D. [address] [place] [phone] Hamida Ram L.G.SMio, M.S.W. 2022 Clinical Communication Admitting/Central Scheduling 07/19/2022 Appointment Radiology Vini Maki M.D., Ph.D. [address] [place] [address] [phone] 07/22/2022 Comprehensive Visit Gastroenterology and Andres Mehta Hepatology Sebastian Lozada [address] [place] [phone] 07/23/2022 Lab Laboratory Medicine Vini Maki M.D., Ph.D. [address] [place] [phone] 07/23/2022 Office Visit Oncology Rebeca Valle P.A.-C., M.S. [address] [place] [address] [phone] Scheduled Referrals Name Type Priority Associated Diagnoses [facility] Clinical Genomics - Outpatient Referral Routine Genetic Suscep tibility Expected: Hereditary cancer To Other Malignant 02/22 consult (clinic) Neoplasm (Approximat e), Expires: 06/08/2023 documented as of this encounter Visit Diagnoses Diagnosis Genetic Susceptibility To Other Malignan t Neoplasm - Primary documented in this encounter
--- OUTSIDE RECORDS SUMMARY | 2022-06-19 11:38 | XMS_ITS | Encounter Summary ---
:1970 Author Organization [facility] Address [address] [place] [address] Care Team Providers Name Role Phone Unavailable Primary Care Provider Unavailable Reason for Visit Radiation Therapy (Routine) - Closed Specialty Diagnoses / Procedures Referred By Contact Refer red To Contact Diagnoses Malignant Neoplasm Of Brain (HCC) Stephanie Gleason M.D. [facility] Radiation Oncology Procedures Prior Auth Rad Tx [place] IMRT COMPLEX [address] [place] [address] [place] [address] Referral ID Status Reason Start Date Expiration Date Visits Requ ested Visits Authorized [id number] Closed 01/31/2022 12/31/2022 30 30 Encounter Details Date Type Department Care Team Description 03/11/2022 Hospital Encounter Department of Radiation Jacquelyn Gleason I., Oncology in [place] [address] [facility] [address] [place] [phone] Social History Tobacco Use Types Packs/Day Years [...] have completed or the highest Maulik, MEd, DATA ANALYSIS ASSISTANT, MOISE) degree you have received? Sex [...] Support Oncology Vini Maki M.D., Ph.D. 200 [place] [address] Hamida Ram L.G.S.W., M.S.W. 2022 Clinical Communication Admitting/Central Scheduling 07/19/2022 Appointment Radiology Vini Maki M.D., Ph.D. [address] [place] [phone] 07/22/2022 Comprehensive Visit Gastroenterology and Andres Mehta Hepatheri Lozada M.D. [address] [place] [address] [phone] 07/23/2022 Lab Laboratory Medicine Vini Maki M.D., Ph.D. [address] [place] [address] [phone] 07/23/2022 Office Visit Oncology Rebeca Valle P.A.-C., M.S. [address] [place] [address] [phone] documented as of this encounter Visit Diagnoses Not on filedocumented in this encounter
--- OUTSIDE RECORDS SUMMARY | 2022-06-19 11:38 | XMS_ITS | Encounter Summary ---
:1970 Author Organization [facility] Address [address] [place] [address] Care Team Providers Name Role Phone Unavailable Primary Care Provider Unavailable Reason for Visit Radiation Therapy (Routine) - Closed Specialty Diagnoses / Procedures Referred By Contact Refer red To Contact Diagnoses Malignant Neoplasm Of Brain (HCC) Stephanie Gleason M.D. [facility] Radiation Oncology Procedures Prior Auth Rad Tx [place] IMRT COMPLEX [address] [place], [place] [address] [address] [place] [address] Referral ID Status Reason Start Date Expiration Date Visits Requ ested Visits Authorized [id number] Closed 01/31/2022 12/31/2022 30 30 Encounter Details Date Type Department Care Team Description 03/14/2022 Hospital Encounter Department of Radiation Jacquelyn Gleason I., Oncology in [place] [address] [facility] [address] [place] [phone] Social History Tobacco Use Types Packs/Day Years [...] have completed or the highest Maulik, MEd, CORPORATE RECRUITER, MOISE) degree you have received? Sex Assigned [...] Support Oncology Vini Maki M.D., Ph.D. [address] [place] [phone] Hamida Ram L.G.S.W., M.S.W. 2022 Clinical Communication Admitting/Central Scheduling 07/19/2022 Appointment Radiology Vini Maki M.D., Ph.D. [address] [place] [phone] 07/22/2022 Comprehensive Visit Gastroenterology and Andres Mehta Hepatology Sebastian Lozada [address] [place] [phone] 07/23/2022 Lab Laboratory Medicine Vini Maki M.D., Ph.D. [address] [place] [phone] 07/23/2022 Office Visit Oncology Rebeca Valle P.A.-C., M.S. [address] [place] [phone] documented as of this encounter Visit Diagnoses Not on filedocumented in this encounter
--- OUTSIDE RECORDS SUMMARY | 2022-06-19 11:38 | XMS_ITS | Encounter Summary ---
:1970 Author Organization [facility] Address [address] [place] [address] Care Team Providers Name Role Phone Unavailable Primary Care Provider Unavailable Encounter Details Date Type Department Care Team Description 03/07/2022 Clinical Communication Department of Rebeca Valle , Oncology in P.A.-C., M.S. [place], [place] [address] [facility] [address] [place] [phone] Social History Tobacco Use Types Packs/Day Years [...] completed or the highest Maulik, MEd, MANAGER FITNESS, MOISE) degree you have received? Sex Assigned at Date Recorded Female 01/07/2022 11:11 AM CDT documented as of this encounter Plan of Treatment Upcoming Encounters Date Type Specialty Care Team Description 06/24/2022 Clinical Support Oncology Vini Maki M.D., Ph.D. [address] [place] [phone] Hamida Ram L.G.S.Yasmeen., M.S.W. 2022 Clinical Communication Admitting/Central Scheduling 07/19/2022 Appointment Radiology Vini Maki M.D., Ph.D. [address] [place] [address] [phone] 07/22/2022 Comprehensive Visit Gastroenterology and Andres Mehta Hepatology Sebastian Lozada [address] [place] [address] [phone] 07/23/2022 Lab Laboratory Medicine Vini Maki M.D., Ph.D. [address] [place] [phone] 07/23/2022 Office Visit Oncology Rebeca Valle P.A.-C., M.S. [address] [place] [phone] documented as of this encounter Visit Diagnoses Not on filedocumented in this encounter
--- OUTSIDE RECORDS SUMMARY | 2022-06-19 11:38 | XMS_ITS | Encounter Summary ---
:1970 Author Organization [facility] Address [address] [place] [address] Care Team Providers Name Role Phone Unavailable Primary Care Provider Unavailable Reason for Visit Reason Comments 03-11-22 Labs Only Encounter Details Date Type Department Care Team Description 03/12/2022 Clinical Communication Department of Latanya Michael 02-22 Labs Only Oncology in D, R.N., O.C.N. [place], [facility] [address] [place], [place] [address] [facility] [address] [place] [address] Social History Tobacco Use Types Packs/Day Years [...] have completed or the highest Maulik, MEd, TECHNICAL PROFESSIONAL, MOISE) degree you have received? Sex Assigned at Date Recorded Female 01/07/2022 11:11 AM CDT documented as of this encounter Miscellaneous Notes Telephone Encounter - Olivia Koenig D.N.P., M.Domingo., R.N., MARIANO - 03/12/2022 9:44 AM CDT Labs Verified Telephone Encounter - Trupti Pearson - 03/12/2022 9:13 AM CDT Labs have been entered and are ready for review. Telephone Encounter - Margaret Carnes - 03/12/2022 8:09 AM CDT Labs drawn on 03-11-22 are here. Labs are scanned into [employer] from an outside facility. They will be available through document viewer and should be available in approximately 5 minutes. Thank you, Margaret GIPSONT ONC [facility] AA POD 1 documented in this encounter Plan of Treatment Upcoming Encounters Date Type Specialty Care Team Description 06/24/2022 Clinical Support Oncology Vini Maki M.D., Ph.D. [address] [place] [phone] Hamida Ram L.G.S.W., M.S.W. 2022 Clinical Communication Admitting/Central Scheduling 07/19/2022 Appointment Radiology Vini Maki M.D., Ph.D. [address] [place] [phone] 07/22/2022 Comprehensive Visit Gastroenterology and Andres Mehta Hepatology Sebastian Lozada [address] [place] [phone] 07/23/2022 Lab Laboratory Medicine Vini Maki M.D., Ph.D. [address] [place] [phone] 07/23/2022 Office Visit Oncology Rebeca Valle P.A.-C., M.S. [address] [place] [phone] documented as of this encounter Procedures Procedure Name Priority Date/Time Associated Diagnosis Comme nts HEMATOLOGY/ONCOLOGY Routine 03/11/2022 1:30 PM Re sults for this - BLOOD, EXTERNAL CDT procedure are in LAB RESULTS the results section. documented in this encounter Results (ABNORMAL) Hematology/Oncology - Blood, External Lab Results (03/11/2022 1:30 PM CDT) P athologist Signature EXT Hemoglobin 13.0 12 - 16 OTHER (SPECIFY IN GINSENG FARMER) EXT Leukocytes 3.7 (A) 4.50 - 11 OTHER (SPECIFY IN GINSENG FARMER) EXT Absolute 2.20 1.7 - 7 OTHER Neutrophil (SPECIFY IN Count GINSENG FARMER) EXT Lymphs 1 0.90 - 2.9 OTHER Absolute (SPECIFY IN GINSENG FARMER) EXT Platelet 235 140 - 440 OTHER Count (SPECIFY IN GINSENG FARMER) Specimen (Source) Anatomical Collection Method Collection Time Re ceived Time Location / / Volume Laterality Blood 03/11/2022 1:30 PM CDT Narrative This result has an attachment that is no t available. Historical Provider LAB BLOOD NON ADD-ON Performing Organization Address City/State/ZIP Code Phon e Number OTHER (SPECIFY IN GINSENG FARMER) OTHER (SPECIFY IN GINSENG FARMER) N/A documented in this encounter Visit Diagnoses Not on filedocumented in this encounter
--- OUTSIDE RECORDS SUMMARY | 2022-06-19 11:38 | XMS_ITS | Encounter Summary ---
:1970 Author Organization [facility] Address [address] [place] [address] Care Team Providers Name Role Phone Unavailable Primary Care Provider Unavailable Reason for Visit Radiation Therapy (Routine) - Closed Specialty Diagnoses / Procedures Referred By Contact Refer red To Contact Diagnoses Malignant Neoplasm Of Brain (HCC) Stephanie Gleason M.D. [facility] Radiation Oncology Procedures Prior Auth Rad Tx [place] IMRT COMPLEX [address] [place], [place] [phone] [place] [address] Referral ID Status Reason Start Date Expiration Date Visits Requ ested Visits Authorized [id number] Closed 01/31/2022 12/31/2022 30 30 Encounter Details Date Type Department Care Team Description 03/07/2022 Hospital Encounter Department of Radiation Jacquelyn Gleason I., Oncology in [place] [address] [facility] [address] [place] [phone] Social History Tobacco Use Types Packs/Day Years [...] More than 4 times per year 01/07/2022 mandaeism services? Do you belong to any clubs [...] have completed or the highest Maulik, MEd, STRAND GALVANIZER, MOISE) degree you have received? Sex Assigned [...] Support Oncology Vini Maki M.D., Ph.D. 200 [place] [address] Hamida Ram L.G.S.W., M.S.W. 2022 Clinical Communication Admitting/Central Scheduling 07/19/2022 Appointment Radiology Vini Maki M.D., Ph.D. [address] [place] [phone] 07/22/2022 Comprehensive Visit Gastroenterology and Andres Mehta Hepatheri Lozada M.D. [address] [place] [phone] 07/23/2022 Lab Laboratory Medicine Vini Maki M.D., Ph.D. [address] [place] [address] [phone] 07/23/2022 Office Visit Oncology Rebeca Valle P.A.-C., M.S. [address] [place] [address] [phone] documented as of this encounter Visit Diagnoses Not on filedocumented in this encounter
--- OUTSIDE RECORDS SUMMARY | 2022-06-19 11:38 | XMS_ITS | Encounter Summary ---
:1970 Author Organization [facility] Address [address] [place] [address] Care Team Providers Name Role Phone Unavailable Primary Care Provider Unavailable Reason for Referral Radiation Therapy (Routine) - Pending Review Specialty Diagnoses / Procedures Referred By Contact Refer red To Contact Diagnoses Malignant Neoplasm Of Brain (HCC) Stephanie Gleason M.D. [facility] Radiation Oncology Procedures Management Visit [address] [facility] [place], [place] [phone] [address] [place] [address] Referral ID Status Reason Start Date Expiration Date Visits V isits Requested Authorized [id number] Pending 12/31/2021 12/31/2022 10 10 Review Reason for Visit Radiation Therapy (Routine) - Pending Review Specialty Diagnoses / Procedures Referred By Contact Refer red To Contact Diagnoses Malignant Neoplasm Of Brain (HCC) Stephanie Gleason M.D. [facility] Radiation Oncology Procedures Management Visit [address] [facility] [place] [phone] [place] [address] Referral ID Status Reason Start Date Expiration Date Visits V isits Requested Authorized [id number] Pending 12/31/2021 12/31/2022 10 10 Review Encounter Details Date Type Department Care Team Description 03/12/2022 Hospital Encounter Department of Stephanie Gleason Neoplasm Radiation Oncology Sebastian Marcelino Of Brain ([facility]) in [place], [address] [place] [address] [place] [phone] [place], [place] [phone] (Work) [phone] Social History Tobacco Use Types Packs/Day Years [...] have completed or the highest Maulik, MEd, VICE PRESIDENT OF MARKETING, MOISE) degree you have received? Sex Assigned [...] score 1-3 of 10, headaches or fever. sulfamethoxazole-trimeth Take 1 tablet by 90 tablet [...] (cGy) First Treatment Last Treatment Elapsed Days [id number] 01/31/2022 03/12/2022 40 Course [...] sense. The patient was taken to the [facility] with altered mental status. The [...] steroids and Keppra and transferred to [facility]. 11/30/2021 Imaging MRI of the brain demonstrated [...] Referral to Dr. Shelbie Ackerman at the [facility]. Discussed that it was okay for the [...] temozolomide. Referral to Radiation Oncology at [facility] in [place]. 01/10/2022 Surgery and Procedures Left temporoparietal stereotactic craniotomy with tumor resection, speech mapping with Dr. Ivey. PATHOLOGY: A-D. 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 See comment. 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 The biopsy specimen lacked microvascular proliferation and tumor necrosis. By immunohistochemistry, the tumor cells were negative for IDH1-R132H and showed retained ATRX expression. 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 Testing in 2021 from [facility]. As of 2021, there is no [...] up on April 04, 2022 on on [facility]. She is then scheduled for vision testing and Ophthalmology appointments on March 25-2021. Endocrinology Thyroid Clinic will see patient on March 29, 2022. She continues to work with PT, OT and Speech through [facility] and [facility]. We will not order formal follow up [...] Support Oncology Vini Maki M.D., Ph.D. [address] [place] [phone] Hamida Ram L.G.S.W., M.S.W. 2022 Clinical Communication Admitting/Central Scheduling 07/19/2022 Appointment Radiology Vini Maki M.D., Ph.D. [address] [place] [address] [phone] 07/22/2022 Comprehensive Visit Gastroenterology and Andres Metha Hepatheri Lozada M.D. [address] [place] [address] [phone] 07/23/2022 Lab Laboratory Medicine Vini Maki M.D., Ph.D. [address] [place] [phone] 07/23/2022 Office Visit Oncology Rebeca Valle P.A.-C., M.S. [address] [place] [phone] Scheduled Orders Name Type Priority Associated Diagnoses Order S chedule Management Visit Radiation Oncology Routine Malignant Neoplasm Once for 1 Of Brain (HCC) Occurrences s tarting 03/12/2022 unti l 03/12/2022 documented as of this encounter Visit Diagnoses Diagnosis Malignant Neoplasm Of Brain (HCC) documented in this encounter
--- OUTSIDE RECORDS SUMMARY | 2022-06-19 11:38 | XMS_ITS | Encounter Summary ---
:1970 Author Organization [facility] Address [address] [place] [address] Care Team Providers Name Role Phone Unavailable Primary Care Provider Unavailable Reason for Referral Outpatient (Routine) - Closed Specialty Diagnoses / Procedures Referred By Contact Refer red To Contact Social Work Diagnoses Malignant Neoplasm Of Brain (HCC) Cliff Sumner M.D., [facility] M[facility] 200 [place] [address] Referral ID Status Reason Start Date Expiration Date Visits Requ ested Visits Authorized [id number] Closed 01/01/2022 01/01/2023 1 1 Scheduling Instructions Phone is okay. Please contact patient fo r preference. Reason for Visit Outpatient (Routine) - Closed Specialty Diagnoses / Procedures Referred By Contact Refer red To Contact Social Work Diagnoses Malignant Neoplasm Of Brain (HCC) Cliff Sumner M.D., [facility] M.S. 200 [place] [address] Referral ID Status Reason Start Date Expiration Date Visits Requ ested Visits Authorized [id number] Closed 01/01/2022 01/01/2023 1 1 Encounter Details Date Type Department Care Team Description 03/04/2022 Hospital Encounter Department of Cliff Sumner M.D., M.S. [address] [place] [phone] Malignant Neoplasm Radiation Oncology Yomaira Ibarra L.G.S.W. Of Brain (HCC) in [place], [place] [address] [place] [phone] Social History Tobacco Use Types Packs/Day Years [...] have completed or the highest Maulik, MEd, SNIPPER, MOISE) degree you have received? Sex Assigned [...] primary care provider on file. Primary Language: Serbian REASON FOR CONSULT Initial social work consult [...] Surgeon: Charles Ivey M.D., Ph.D.; Location: [facility] OR ??? CRANIOTOMY FOR TUMOR Left 12/05/2021 ??? TONSILLECTOMY SOCIAL HISTORY Marital Status / Family / Household Status: Support Systems: boyfriend, mother, sister, daughter and son Primary caregiver: Mother, boyfriend We have received permission to contact them. Spirituality / Advent / Culture: No anglican affiliation Employment: Ms. 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 Richardson met with this social services specialist today for an initial social work consult and psychosocialassessment. She was open and forthright in sharing her overall life context and current experience with radiation therapy. She currently resides outside of [place]. She states she is well supported (with family members taking turns being present even though only son who works night hours lives nearby), is feeling as well as possible through her treatment, but she does express concerns regarding finances and possible transportation if her family is absent in the future. Ms. Richardson notes that she has secured MA and is connected with a [facility] social services specialist. She was receptive to the packet of [...] the future. Encouragement given to remainconnected with [facility] regarding MA status and transportation coverage. Ms. [...] Support Oncology Vini Maki M.D., Ph.D. [address] [place] [phone] Hamida Ram L.G.S.W., M.S.W. 2022 Clinical Communication Admitting/Central Scheduling 07/19/2022 Appointment Radiology Vini Maki M.D., Ph.D. [address] [place] [phone] 07/22/2022 Comprehensive Visit Gastroenterology and Andres Mehta Hepatheri Lozada M.D. [address] [place] [phone] 07/23/2022 Lab Laboratory Medicine Vini Maki M.D., Ph.D. [address] [place] [phone] 07/23/2022 Office Visit Oncology Rebeca Valle P.A.-C., M.S. [address] [place] [phone] Scheduled Referrals Name Type Priority Associated Order Schedule Diagnoses Social Work - Outpatient Referral Routine Malignant Neoplasm O nce for 1 General consult Of Brain (HCC) Occurrence s starting (clinic) 03/04/2022 unti l 03/04/2022 documented as of this encounter Visit Diagnoses Diagnosis Malignant Neoplasm Of Brain (HCC) documented in this encounter
--- OUTSIDE RECORDS SUMMARY | 2022-06-19 11:38 | XMS_ITS | Encounter Summary ---
:1970 Author Organization [facility] Address [address] [place] [address] Care Team Providers Name Role Phone Unavailable Primary Care Provider Unavailable Reason for Visit Reason Comments Attempt to Reach Patient Encounter Details Date Type Department Care Team Description 03/06/2022 Documentation Department of Sejal Barnes Attempt to Reach Genetics in S, M.S., [facility] Patient [place], [place] [address] [facility] [address] [place] [phone] Social History Tobacco Use Types Packs/Day Years [...] have completed or the highest Maulik, MEd, SNUFF PACKING MACHINE OPERATOR, MOISE) degree you have received? Sex Assigned at Date Recorded Female 01/07/2022 11:11 AM CDT documented as of this encounter Progress Notes Sejal Resendiz M.S., [facility] - 03/06/2022 3:05 PM CDT I attempted to reach Ms. Cedillo by phone again today to discuss her genetic testing results but reached her voicemail. A generic message was left requesting she call me back at her earliest convenience at [phone]. I will attempt to reach her one more times in the coming days. As always, she is welcome to contact me with any questions in the future. documented in this encounter Plan of Treatment Upcoming Encounters Date Type Specialty Care Team Description 06/24/2022 Clinical Support Oncology Vini Maki M.D., Ph.D. [address] [place] [phone] Hamida Ram L.G.S.W., M.S.W. 2022 Clinical Communication Admitting/Central Scheduling 07/19/2022 Appointment Radiology Vini Maki M.D., Ph.D. [address] [place] [phone] 07/22/2022 Comprehensive Visit Gastroenterology and Andres Mehta Hepatology Sebastian Lozada [address] [place] [phone] 07/23/2022 Lab Laboratory Medicine Vini Maki M.D., Ph.D. [address] [place] [phone] 07/23/2022 Office Visit Oncology Rebeca Valle P.A.-C., M.S. [address] [place] [phone] documented as of this encounter Visit Diagnoses Not on filedocumented in this encounter
--- OUTSIDE RECORDS SUMMARY | 2022-06-19 11:38 | XMS_ITS | Encounter Summary ---
:1970 Author Organization [facility] Address [address] [place] [address] Care Team Providers Name Role Phone Unavailable Primary Care Provider Unavailable Reason for Visit Radiation Therapy (Routine) - Closed Specialty Diagnoses / Procedures Referred By Contact Refer red To Contact Diagnoses Malignant Neoplasm Of Brain (HCC) Stephanie Gleason M.D. [facility] Radiation Oncology Procedures Prior Auth Rad Tx [place] IMRT COMPLEX [address] [place], [place] [address] [address] [place] [address] Referral ID Status Reason Start Date Expiration Date Visits Requ ested Visits Authorized [id number] Closed 01/31/2022 12/31/2022 30 30 Encounter Details Date Type Department Care Team Description 03/08/2022 Hospital Encounter Department of Radiation Jacquelyn Gleason I., Oncology in [place] [address] [facility] [address] [place] [phone] [phone] Social History Tobacco Use Types Packs/Day Years [...] have completed or the highest Maulik, MEd, INSPECTOR BULLET SLUGS, MOISE) degree you have received? Sex Assigned [...] Support Oncology Vini Maki M.D., Ph.D. 200 [place] [address] Hamida Ram L.G.S.W., M.S.W. 2022 Clinical Communication Admitting/Central Scheduling 07/19/2022 Appointment Radiology Vini Maki M.D., Ph.D. [address] [place] [phone] 07/22/2022 Comprehensive Visit Gastroenterology and Andres Mehta Hepatheri Lozada M.D. [address] [place] [address] [phone] 07/23/2022 Lab Laboratory Medicine Vini Maki M.D., Ph.D. [address] [address] [phone] 07/23/2022 Office Visit Oncology Rebeca Valle P.A.-C., M.S. [address] [place] [address] [phone] documented as of this encounter Visit Diagnoses Not on filedocumented in this encounter
--- OUTSIDE RECORDS SUMMARY | 2022-06-19 11:38 | XMS_ITS | Encounter Summary ---
:[address] [facility] Address [address] [place] [address] Care Team Providers Name Role Phone Unavailable Primary Care Provider Unavailable Encounter Details Date Type Department Care Team Description 03/12/[address] [facility] [place], [address] Shalonda Arana [place] [address] [address] [place] [address] [place] [address] Social History Tobacco Use Types Packs/Day Years [...] have completed or the highest Maulik, MEd, EDUCATIONAL TECHNOLOGY SPECIALIST, MOISE) degree you have received? Sex Assigned at Date Recorded Female 01/07/2022 11:11 AM CDT documented as of this encounter Miscellaneous Notes Telephone Encounter - [place], Pharm.D., R.Ph. - 03/27/2022 9:33 AM CDT SUBJECTIVE REASON FOR VISIT Specialty pharmacy reassessment of patient's medication knowledge, adherence, and side effects via patient reported questionnaire. Reassessment questions were asked via phone by a patient behavioral health care manager. (scheduled chart review via telephone questionnaires-patient not needing refill yet.) HISTORY OF PRESENT ILLNESS Ms. Mia Richardson is a 51 y.o. female, who is followed by the specialty pharmacy service for temozolomide . (Indication: hematology/oncology) Patient reported reassessment questions and responses: Informant: patient How comfortable are you understanding the medication(s) you receive from [facility]?: Very Comfortable Side Effects Requiring Attention: yes, [...] above and reviewing refill history in the [facility] record. The patient/caregiver reports appropriate [...] the dispensing system. Follow-up: 1 month [place], D., R.Ph. documented in this encounter Plan of Treatment Upcoming Encounters Date Type Specialty Care Team Description 06/24/2022 Clinical Support Oncology Vini Maki M.D., Ph.D. [address] [place] [phone] Hamida Ram L.G.S.W., M.S.W. 2022 Clinical Communication Admitting/Central Scheduling 07/19/2022 Appointment Radiology Vini Maki M.D., Ph.D. [address] [place] [phone] 07/22/2022 Comprehensive Visit Gastroenterology and Andres Mehta Hepatology Sebastian Lozada [address] [place] [phone] 07/23/2022 Lab Laboratory Medicine Vini Maki M.D., Ph.D. [address] [place] [phone] 07/23/2022 Office Visit Oncology Rebeca Valle P.A.-C., M.S. [address] [place] [phone] documented as of this encounter Visit Diagnoses Not on filedocumented in this encounter
--- OUTSIDE RECORDS SUMMARY | 2022-06-19 11:38 | XMS_ITS | Encounter Summary ---
:1970 Author Organization [facility] Address [address] [place] [address] Care Team Providers Name Role Phone Unavailable Primary Care Provider Unavailable Reason for Visit Reason Comments Diagnostic Only Encounter Details Date Type Department Care Team Description 03/25/2022 Ancillary Department of [place], Malignant Neop lasm Procedure Ophthalmology in Chas Ferro M.D. Of Brain ([facility]) [place], [place] [address] [facility] [address] [place] [phone] [phone] Social History Tobacco Use Types Packs/Day Years [...] have completed or the highest Maulik, MEd, DYE MACHINE TENDER, MOISE) degree you have received? Sex Assigned at Date Recorded Female 01/07/2022 11:11 AM CDT documented as of this encounter Plan of Treatment Upcoming Encounters Date Type Specialty Care Team Description 06/24/2022 Clinical Support Oncology Vini Maki M.D., Ph.D. [address] [place] [phone] Hamida Ram L.G.S.W., M.S.W. 2022 Clinical Communication Admitting/Central Scheduling 07/19/2022 Appointment Radiology Vini Maki M.D., Ph.D. [address] [place] [address] [phone] 07/22/2022 Comprehensive Visit Gastroenterology and Andres Mehta Hepatheri Lozada M.D. [address] [place] [address] [phone] 07/23/2022 Lab Laboratory Medicine Vini Maki M.D., Ph.D. [address] [place] [address] [phone] 07/23/2022 Office Visit Oncology Rebeca Valle P.A.-C., M.S. [address] [place] [address] documented as of this encounter Procedures Procedure [...] Volume Narrative OPHTHALMOLOGY IMAGING EXAM - 03/25/20 6:53 PM CDT Right Eye Automated visual field device used was Z eiss. Strategy was MAYCO. Threshold was 24-2. Eyelid was untaped. Left Eye Automated visual field device used was Z eiss. Strategy was MYACO. Threshold was 24-2. Eyelid was untaped. Notes [...]
--- OUTSIDE RECORDS SUMMARY | 2022-06-19 11:38 | XMS_ITS | Encounter Summary ---
:1970 Author Organization [facility] Address [address] [place] [address] Care Team Providers Name Role Phone Unavailable Primary Care Provider Unavailable Reason for Referral Radiation Therapy (Routine) - Pending Review Specialty Diagnoses / Procedures Referred By Contact Refer red To Contact Diagnoses Malignant Neoplasm Of Brain (HCC) Stephanie Gleason M.D. [facility] Radiation Oncology Procedures Management Visit [address] [facility] [place], [place] [phone] [place] [address] Referral ID Status Reason Start Date Expiration Date Visits V isits Requested Authorized [id number] Pending 12/31/2021 12/31/2022 10 10 Review Reason for Visit Radiation Therapy (Routine) - Pending Review Specialty Diagnoses / Procedures Referred By Contact Refer red To Contact Diagnoses Malignant Neoplasm Of Brain (HCC) Stephanie Gleason M.D. [facility] Radiation Oncology Procedures Management Visit [address] [facility] [place] [address] [address] [place] [address] Referral ID Status Reason Start Date Expiration Date Visits V isits Requested Authorized [id number] Pending 12/31/2021 12/31/2022 10 10 Review Encounter Details Date Type Department Care Team Description 03/05/2022 Hospital Encounter Department of Stephanie Gleason Neoplasm Radiation Oncology Sebastian Marcelino Of Brain ([facility]) in [place], [address] [place] [address] [place] [phone] [place], [place] [phone] (Work) [phone] Social History Tobacco Use Types Packs/Day Years [...] have completed or the highest Maulik, MEd, RADIOLOGY EQUIPMENT SERVICER, MOISE) degree you have received? Sex Assigned [...] 1 tablet (8 mg 42 tablet 0 /02/202203/12/2022 mg tabletIndications: total) by mouth Malignant Neoplasm Of daily. Take 30 to 60 Brain (HCC) minutes before Temozolomide on Days 1 to 42. temozolomide (TEMODAR) Take 1 capsule (140 14 capsule 0 07/0 02/2022 04/11/2022 140 mg mg total) by mouth capsuleIndications: [...] (cGy) First Treatment Last Treatment Elapsed Days [id number] [phone] 01/31/2022 03/05/2022 33 Course [...] on April 04, 2022 on on [facility]. She continues to work with PT, OT and Speech through [facility] and [facility]. We will continue to see patient in [...] Support Oncology Vini Maki M.D., Ph.D. [address] [place] [address] [phone] Hamida Ram L.G.S.W., M.S.W. 2022 Clinical Communication Admitting/Central Scheduling 07/19/2022 Appointment Radiology Vini Maki M.D., Ph.D. [address] [place] [address] [phone] 07/22/2022 Comprehensive Visit Gastroenterology and Andres Mehta Hepatology Sebastian Lozada [address] [place] [address] [phone] 07/23/2022 Lab Laboratory Medicine Vini Maki M.D., Ph.D. [address] [place] [address] [phone] 07/23/2022 Office Visit Oncology Rebeca Valle P.A.-C., M.S. [address] [place] [phone] Scheduled Orders Name Type Priority Associated Diagnoses Order S chedule Management Visit Radiation Oncology Routine Malignant Neoplasm Once for 1 Of Brain (HCC) Occurrences s tarting 03/05/2022 unti l 03/05/2022 documented as of this encounter Visit Diagnoses Diagnosis Malignant Neoplasm Of Brain (HCC) documented in this encounter
--- OUTSIDE RECORDS SUMMARY | 2022-06-19 11:38 | XMS_ITS | Encounter Summary ---
:1970 Author Organization [facility] Address [address] [place] [address] Care Team Providers Name Role Phone Unavailable Primary Care Provider Unavailable Reason for Visit Radiation Therapy (Routine) - Closed Specialty Diagnoses / Procedures Referred By Contact Refer red To Contact Diagnoses Malignant Neoplasm Of Brain (HCC) Stephanie Gleason M.D. [facility] Radiation Oncology Procedures Prior Auth Rad Tx [place] IMRT COMPLEX [address] [place], [place] [address] 1821 [facility] [place] [address] Referral ID Status Reason Start Date Expiration Date Visits Requ ested Visits Authorized [id number] Closed 01/31/2022 12/31/2022 30 30 Encounter Details Date Type Department Care Team Description 03/12/2022 Hospital Encounter Department of Radiation Jacquelyn Gleason I., Oncology in [place] [address] [facility] [address] [place] [address] [phone] Social History Tobacco Use Types Packs/Day Years [...] have completed or the highest Maulik, MEd, WET PROCESS MILLER HEAD, MOISE) degree you have received? Sex Assigned [...] Support Oncology Vini Maki M.D., Ph.D. [address] [place] [phone] Hamida Ram L.G.S.W., M.S.W. 2022 Clinical Communication Admitting/Central Scheduling 07/19/2022 Appointment Radiology Vini Maki M.D., Ph.D. [address] [place] [phone] 07/22/2022 Comprehensive Visit Gastroenterology and Andres Mehta Hepatology Sebastian Lozada [address] [place] [phone] 07/23/2022 Lab Laboratory Medicine Vini Maki M.D., Ph.D. [address] [place] [phone] 07/23/2022 Office Visit Oncology Rebeca Valle P.A.-C., M.S. [address] [place] [phone] documented as of this encounter Visit Diagnoses Not on filedocumented in this encounter
--- OUTSIDE RECORDS SUMMARY | 2022-06-19 11:38 | XMS_ITS | Encounter Summary ---
:1970 Author Organization [facility] Address [address] [place] [address] Care Team Providers Name Role Phone Unavailable Primary Care Provider Unavailable Reason for Visit Reason Comments Intake Assessment Encounter Details Date Type Department Care Team Description 03/05/2022 Clinical Communication Visit Review in [place] take [place], [place] 200 [place] [address] Social History Tobacco Use Types [...] have completed or the highest Maulik, MEd, TEST INSPECTION ENGINEER, MOISE) degree you have received? Sex Assigned at Date Recorded Female 01/07/2022 11:11 AM CDT documented as of this encounter Plan of Treatment Upcoming Encounters Date Type Specialty Care Team Description 06/24/2022 Clinical Support Oncology Vini Maki M.D., Ph.D. [address] [place] [address] [phone] Hamida Ram L.G.S.W., M.S.W. 2022 Clinical Communication Admitting/Central Scheduling 07/19/2022 Appointment Radiology Vini Maki M.D., Ph.D. [address] [place] [phone] 07/22/2022 Comprehensive Visit Gastroenterology and Andres Mehta Hepatheri Lozada M.D. [address] [place] [address] [phone] 07/23/2022 Lab Laboratory Medicine Vini Maki M.D., Ph.D. [address] [place] [address] [phone] 07/23/2022 Office Visit Oncology Rebeca Valle P.A.-C., M.S. [address] [place] [phone] documented as of this encounter Visit Diagnoses Not on filedocumented in this encounter
--- OUTSIDE RECORDS SUMMARY | 2022-06-19 11:38 | XMS_ITS | Encounter Summary ---
:1970 Author Organization [facility] Address [address] [place] [address] Care Team Providers Name Role Phone Unavailable Primary Care Provider Unavailable Reason for Visit Radiation Therapy (Routine) - Closed Specialty Diagnoses / Procedures Referred By Contact Refer red To Contact Diagnoses Malignant Neoplasm Of Brain (HCC) Stephanie Gleason M.D. [facility] Radiation Oncology Procedures Prior Auth Rad Tx [place] IMRT COMPLEX [address] [place], [place] [phone] [facility] [place] [address] Referral ID Status Reason Start Date Expiration Date Visits Requ ested Visits Authorized [id number] Closed 01/31/2022 12/31/2022 30 30 Encounter Details Date Type Department Care Team Description 03/04/2022 Hospital Encounter Department of Radiation Jacquelyn Gleason I., Oncology in [place] [address] [facility] [address] [place] [phone] Social History Tobacco Use Types Packs/Day Years [...] have completed or the highest Maulik, MEd, BUCKLE COVERER, MOISE) degree you have received? Sex Assigned [...] Support Oncology Vini Maki M.D., Ph.D. 200 [place] [phone] Hamida Ram L.G.S.W., M.S.W. 2022 Clinical Communication Admitting/Central Scheduling 07/19/2022 Appointment Radiology Vini Maki M.D., Ph.D. [address] [place] [phone] 07/22/2022 Comprehensive Visit Gastroenterology and Andres Mehta Hepatheri Lozada M.D. [address] [place] [address] [phone] 07/23/2022 Lab Laboratory Medicine Vini Maki M.D., Ph.D. [address] [place] [address] [phone] 07/23/2022 Office Visit Oncology Rebeca Valle P.A.-C., M.S. [address] [place] [address] [phone] documented as of this encounter Visit Diagnoses Not on filedocumented in this encounter
--- OUTSIDE RECORDS SUMMARY | 2022-06-19 11:38 | XMS_ITS | Encounter Summary ---
:1970 Author Organization [facility] Address [address] [place] [address] Care Team Providers Name Role Phone Unavailable Primary Care Provider Unavailable Encounter Details Date Type Department Care Team Description 03/14/2022 Documentation Department of Radiation Stephanie Gleason I., Oncology in [facility] [address] [facility] [address] [place] [phone] (Wo rk) Social History Tobacco Use Types [...] or relatives? How often do you attend tenriism or More than 4 times per year 01/07/2022 gnosticist services? Do you belong to any clubs or No 01/07/2022 organizations such as tenriism groups, unions, fraternal or athletic groups, or [...] have completed or the highest Maulik, MEd, SEAM STAY STITCHER, MOISE) degree you have received? Sex Assigned at Date Recorded Female 01/07/2022 11:11 AM CDT documented as of this encounter Miscellaneous Notes Radiation Completion Notes - Shelbie Espitia R.N. - 03/14/2022 11:59 PM CDT DIAGNOSIS: 1. Malignant Neoplasm Of Brain (HCC) Attending Physician: Stephanie Gleason M.D. Treatment Intent: Curative Concomitant Therapy: Chemotherapy Single Plan Treatment Course: 1xBrain Plan ID Fractions Dose / Fraction (cGy) Dose Treated (cGy) Dose Planned (cGy) First Treatment Last Treatment Elapsed Days [id number] [phone] 01/31/2022 03/14/2022 42 Course [...] Shelbie Espitia R.N., 04/08/2022 1:13 PM CDT [facility] [address] [place] [address] documented in this encounter Plan of Treatment Upcoming Encounters Date Type Specialty Care Team Description 06/24/2022 Clinical Support Oncology Vini Maki M.D., Ph.D. [address] [place] [phone] Hamida Ram L.G.S.W., M.S.W. 2022 Clinical Communication Admitting/Central Scheduling 07/19/2022 Appointment Radiology Vini Maki M.D., Ph.D. [address] [place] [phone] 07/22/2022 Comprehensive Visit Gastroenterology and Andres Mehta Hepatology Sebastian Lozada [address] [place] [phone] 07/23/2022 Lab Laboratory Medicine Vini Maki M.D., Ph.D. [address] [place] [phone] 07/23/2022 Office Visit Oncology Rebeca Valle P.A.-C., M.S. [address] [place] [phone] documented as of this encounter Visit Diagnoses Diagnosis Malignant Neoplasm Of Brain (HCC) - Prim uyen documented in this encounter
--- OUTSIDE RECORDS SUMMARY | 2022-06-19 11:38 | XMS_ITS | Encounter Summary ---
:1970 Author Organization [facility] Address [address] [place] [address] Care Team Providers Name Role Phone Unavailable Primary Care Provider Unavailable Reason for Visit Outpatient (Routine) - Closed Specialty Diagnoses / Procedures Referred By Contact Refer red To Contact Oncology Rebeca Valle P .A.-C., M.S. [facility] [address] [place] [phone] Referral ID Status Reason Start Date Expiration Date Visits Requ ested Visits Authorized [id number] Closed 01/30/2022 01/30/2023 1 1 Encounter Details Date Type Department Care Team Description 03/07/2022 Virtual Visit Department of Rebeca Valle Maligna nt Neoplasm Of Oncology in [place], M.S. Brain (HCC) [place], [place] [address] [place] [address] [place] [phone] Social History Tobacco Use Types Packs/Day Years [...] No 01/07/2022 organizations such as muslim groups, [employer], [employer] or athletic groups, or school groups? How [...] have completed or the highest Maulik, MEd, RETORT FEEDER GROUND BONE, MOISE) degree you have received? Sex Assigned at Date Recorded Female 01/07/2022 11:11 AM CDT documented as of this encounter Progress Notes Rebeca Valle, PEzequiel.-C., M.S. - 03/07/2022 3:20 PM CDT SUBJECTIVE COLLABORATING ONCOLOGIST: Dr. Estrada PRIMARY [place] ONCOLOGIST: Farzana Allen M.D. CHIEF COMPLAINT/REASON FOR [...] with steroids and Keppra and transferred to [facility]. 11/30/2021 Imaging MRI of [...] Ackerman at the [facility]. Discussed that it was okay for the patient to proceed with chemotherapy and radiation 1 month from biopsy date. Also discussed that itwas okay for the patient to travel on a commercial air flight approximately 1 month from biopsy as she was planning for a trip to [place] with her significant other in December. 12/24/[address] Shelbie Ackerman who reviewed the patient's case with Dr. Dunlap and he recommended against additional surgery. Dr. Macias recommended proceeding with a combination of radiation therapy plus temozolomide. Referral to Radiation Oncology at [facility] in [place]. 01/10/2022 Surgery and Procedures Left temporoparietal stereotactic craniotomy with tumor resection, speech mapping with Dr. Ivey. PATHOLOGY: A-D. 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 See comment. 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 The biopsy specimen lacked microvascular proliferation and tumor necrosis. By immunohistochemistry, the tumor cells were negative for IDH1-R132H and showed retained ATRX expression. 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 01/10/2022 Imaging MRI of [...] Days 03/06/2022 34 ??? Reference Point 03/06/2022 [id number] ??? Dosage Given to Date cGy 03/06/2022 4800 ??? Session Dosage Given 03/06/2022 200 ??? Plan ID 03/06/2022 [id number] ??? Fractions Treated to Date 03/06/2022 24 ??? Planned Total Fractions 03/06/2022 30 ??? Prescribed Dose Per Frac* 03/06/2022 200 ??? Prescription Dose in cGy 03/06/2022 6000 ??? Plan Primary Reference P* 03/06/2022 [id number] ??? Course ID 03/07/2022 [id number] ??? Course Start Date 03/07/2022 01/01/2022 08:23 CDT ??? First Treatment Date 03/07/2022 01/31/2022 10:11 CDT ??? Last Treatment Date 03/07/2022 03/07/2022 13:51 CDT ??? Treatment Elapsed Days 03/07/2022 35 ??? Reference Point 03/07/2022 [id number] ??? Dosage Given to Date cGy 03/07/2022 5000 ??? Session Dosage Given 03/07/2022 200 ??? Plan ID 03/07/2022 [id number] ??? Fractions Treated to Date 03/07/2022 25 ??? Planned Total Fractions 03/07/2022 30 ??? Prescribed Dose Per Frac* 03/07/2022 200 ??? Prescription Dose in cGy 03/07/2022 6000 ??? Plan Primary Reference P* 03/07/2022 [id number] Aria Results on 03/04/2022 Component Date Value ??? Course ID 03/04/2022 [id number] ??? Course Start Date 03/04/2022 01/01/2022 08:23 CDT ??? First Treatment Date 03/04/2022 01/31/2022 10:11 CDT ??? Last Treatment Date 03/04/2022 03/04/2022 13:06 CDT ??? Treatment Elapsed Days 03/04/2022 32 ??? Reference Point 03/04/2022 [id number] ??? Dosage Given to Date cGy 03/04/2022 4400 ??? Session Dosage Given 03/04/2022 200 ??? Plan ID 03/04/2022 [id number] ??? Fractions Treated to Date 03/04/2022 22 ??? Planned Total Fractions 03/04/2022 30 ??? Prescribed Dose Per Frac* 03/04/2022 200 ??? Prescription Dose in cGy 03/04/2022 6000 ??? Plan Primary Reference P* 03/04/2022 [id number] ??? Course ID 03/05/2022 1xBrain ??? Course Start Date 03/05/2022 01/01/2022 08:23 CDT ??? First Treatment Date 03/05/2022 01/31/2022 10:11 CDT ??? Last Treatment Date 03/05/2022 03/05/2022 13:16 CDT ??? Treatment Elapsed Days 03/05/2022 33 ??? Reference Point 03/05/2022 [id number] ??? Dosage Given to Date cGy 03/05/2022 4600 ??? Session Dosage Given 03/05/2022 200 ??? Plan ID 03/05/2022 [id number] ??? Fractions Treated to Date 03/05/2022 23 ??? Planned Total Fractions 03/05/2022 30 ??? Prescribed Dose Per Frac* 03/05/2022 200 ??? Prescription Dose in cGy 03/05/2022 6000 ??? Plan Primary Reference P* 03/05/2022 [id number] Patient Message on 03/04/2022 Component Date Value [...] practitioners/physician assistants, nurses and other product support representative that specialize in this cancer. Also, reviewed the importance of maintaining ongoing care with local oncology team and primary care physician. ADMINISTRATIVE BILLING: Consult conducted via real-time audio/video technology by Ashley Romero., M.S. in [facility] to the patient in their home. 30 minutes including visit, reviewing records, coordinating care. documented in this encounter Plan of Treatment Upcoming Encounters Date Type Specialty Care Team Description 06/24/2022 Clinical Support Oncology Vini Maki M.D., Ph.D. [address] [place] [phone] Hamida Ram L.G.S.W., M.S.W. 2022 Clinical Communication Admitting/Central Scheduling 07/19/2022 Appointment Radiology Vini Maki M.D., Ph.D. [address] [place] [phone] 07/22/2022 Comprehensive Visit Gastroenterology and Andres Mehta Hepatology Sebastian Lozada [address] [place] [phone] 07/23/2022 Lab Laboratory Medicine Vini Maki M.D., Ph.D. [address] [place] [phone] 07/23/2022 Office Visit Oncology Rebeca Valle P.A.-C., M.S. [address] [place] [phone] documented as of this encounter Visit Diagnoses Diagnosis Malignant Neoplasm Of Brain (HCC) documented in this encounter
--- OUTSIDE RECORDS SUMMARY | 2022-06-19 11:39 | XMS_ITS | Encounter Summary ---
:1970 Author Organization [facility] Address [address] [place] [address] Care Team Providers Name Role Phone Unavailable Primary Care Provider Unavailable Encounter Details Date Type Department Care Team Description 02/28/2022 Specialty Pharmacy [facility] Carmen Black, Malignant Neoplasm [address] [employer]ER[employer] Pharm.D., R.P h. Of Brain (HCC) [address] [facility] (Primary Dx) [place] [phone] Social History Tobacco Use Types Packs/Day Years [...] More than 4 times per year 01/07/2022 mosque services? Do you belong to any clubs [...] have completed or the highest Maulik, MEd, AGRICULTURAL COMMODITIES GRADER, MOISE) degree you have received? Sex Assigned [...] sensitivity, medication and health history considered at career development counselor (renal function if available). To optimize [...] apparent. Patient is eligible for service through [facility]. 2. Potential drug-drug interactions No [...] The patient has decided to use the [facility]. This patient meets the definition of *HIGH RISK- required BSA dose review and required counseling for any temozolomide dose changes*, by [facility] definition and has been flagged as such in the dispensing system. Follow-up: 4 week(s) Carmen Black, Pharm.D., R.Ph. documented in this encounter Plan of Treatment Upcoming Encounters Date Type Specialty Care Team Description 06/24/2022 Clinical Support Oncology Vini Maki M.D., Ph.D. [address] [place] [phone] Hamida Ram L.Nagi.S.Yasmeen., M.S.W. 2022 Clinical Communication Admitting/Central Scheduling 07/19/2022 Appointment Radiology Vini Maki M.D., Ph.D. [address] [place] [phone] 07/22/2022 Comprehensive Visit Gastroenterology and Andres Mehta Hepatology Sebastian Lozada [address] [place] [phone] 07/23/2022 Lab Laboratory Medicine Vini Maki M.D., Ph.D. [address] [place] [address] [phone] 07/23/2022 Office Visit Oncology Rebeca Valle P.A.-C., M.S. [address] [place] [phone] documented as of this encounter Visit Diagnoses Diagnosis Malignant Neoplasm Of Brain (HCC) - Prim uyen documented in this encounter
--- OUTSIDE RECORDS SUMMARY | 2022-06-19 11:39 | XMS_ITS | Encounter Summary ---
:1970 Author Organization [facility] Address [address] [place] [address] Care Team Providers Name Role Phone Unavailable Primary Care Provider Unavailable Reason for Visit Radiation Therapy (Routine) - Closed Specialty Diagnoses / Procedures Referred By Contact Refer red To Contact Diagnoses Malignant Neoplasm Of Brain (HCC) Stephanie Gleason M.D. [facility] Radiation Oncology Procedures Prior Auth Rad Tx AL IMRT COMPLEX [address] [place], [place] [phone] [place] [address] Referral ID Status Reason Start Date Expiration Date Visits Requ ested Visits Authorized [id number] Closed 01/31/2022 12/31/2022 30 30 Encounter Details Date Type Department Care Team Description 02/28/2022 Hospital Encounter Department of Radiation Jacquelyn Gleason I., Oncology in [place] [address] [facility] [address] [place] [phone] Social History Tobacco Use Types Packs/Day Years [...] have completed or the highest Maulik, MEd, CARBON BLOCKS PRESS OPERATOR, MOISE) degree you have received? [...] Support Oncology Vini Maki M.D., Ph.D. 200 [place] [phone] Hamida Ram L.G.STammy., M.S.W. 2022 Clinical Communication Admitting/Central Scheduling 07/19/2022 Appointment Radiology Vini Maki M.D., Ph.D. [address] [place] [phone] 07/22/2022 Comprehensive Visit Gastroenterology and Andres Mehta Hepatheri Lozada M.D. [address] [place] [address] [phone] 07/23/2022 Lab Laboratory Medicine Vini Maki M.D., Ph.D. [address] [place] [phone] 07/23/2022 Office Visit Oncology Rebeca Valle P.A.-C., M.S. [address] [place] [phone] documented as of this encounter Visit Diagnoses Not on filedocumented in this encounter
--- OUTSIDE RECORDS SUMMARY | 2022-06-19 11:39 | XMS_ITS | Encounter Summary ---
:1970 Author Organization [facility] Address [address] [place] [address] Care Team Providers Name Role Phone Unavailable Primary Care Provider Unavailable Reason for Visit Outpatient (Routine) - Closed Specialty Diagnoses / Procedures Referred By Contact Refer red To Contact Social Work Karthikeyan Cedeno M.D. [facility] [address] [place] [phone] Referral ID Status Reason Start Date Expiration Date Visits Requ ested Visits Authorized [id number] Closed 02/13/2022 02/13/2023 1 1 Encounter Details Date Type Department Care Team Description 02/20/2022 Telemedicine Department of Oncology Araseli Cedeno M.D. [address] [place] [phone] Malignant Neoplasm Of Brain (HCC) (Prima ry Dx); in [facility] Hamida Ram L.G.S.W., M.S.W. Counseling Phase Of Life Problem [address] [phone] Social History Tobacco Use Types Packs/Day Years [...] 01/07/2022 organizations such as temple groups, unions, fraMompery or athletic groups, or school groups? How [...] have completed or the highest Maulik, MEd, HAND BINDER STRIPPER, MOISE) degree you have received? Sex Assigned at Date Recorded Female 01/07/2022 11:11 AM CDT documented as of this encounter Progress Notes Hamida Ram L.G.S.W., M.S.W. - 02/20/2022 8:00 AM CDT SUBJECTIVE [...] packet of information in the mail from [employer] requesting supporting documents for her Social Security Disability application. Her plan is to apply for Medicaid & then to gather the supporting d ocuments requested by [employer]. Mother- Libby is feeling overwhelmed. Libby went [...] counseling throughout cancer care journey here at [facility]. Ms. Cedillo will reach out if questions or concerns arise. Ms. Cedillo has my contact information. Encouraged Ms. Cedillo to reach out if questions, concerns or desire for supportive counseling arise prior to our next scheduled appointment. OBJECTIVE Re-education provided about Social Work role & availability within Medical Oncology Care Team. Provided education about community resources such as [employer] and [place] [employer]. Mental Status [...] following Community Resources [employer] & [place] [employer] ~Reflective Listening PLAN 1. [...] via real-time audio technology by Evon Coreas, M.S.W. to thepatient in patient's home. This telephone [...] Maki M.D., Ph.D. [address] [place] [phone] Hamida Ram L.G.S.W., M.S.W. 2022 Clinical Communication Admitting/Central Scheduling 07/19/2022 Appointment Radiology Vini Maki M.D., Ph.D. [address] [place] [phone] 07/22/2022 Comprehensive Visit Gastroenterology and Andres Mehta Hepatheri Lozada M.D. [address] [place] [phone] 07/23/2022 Lab Laboratory Medicine Vini Maki M.D., Ph.D. [address] [place] [phone] 07/23/2022 Office Visit Oncology Rebeca Valle P.A.-C., M.S. [address] [place] [phone] documented as of this encounter Visit Diagnoses Diagnosis Malignant Neoplasm Of Brain (HCC) - Prim uyen Counseling Phase Of Life Problem documented in this encounter
--- OUTSIDE RECORDS SUMMARY | 2022-06-19 11:39 | XMS_ITS | Encounter Summary ---
:1970 Author Organization [facility] Address [address] [place] [address] Care Team Providers Name Role Phone Unavailable Primary Care Provider Unavailable Encounter Details Date Type Department Care Team Description 02/22/2022 Orders Only Department of Farzana Allen Astrocytoma (HCC) (Primary Dx); Oncology in D, [place], [place] [address] [facility] [address] [place] [phone] Social History Tobacco Use Types Packs/Day Years [...] More than 4 times per year 01/07/2022 methodist services? Do you belong to any clubs or No 01/07/2022 organizations such as jain groups, unions, fraternal or athletic groups, or [...] completed or the highest Maulik, MEd, PREPRESS OPERATOR, MOISE) degree you have received? Sex Assigned at Date Recorded Female 01/07/2022 11:11 AM CDT documented as of this encounter Plan of Treatment Upcoming Encounters Date Type Specialty Care Team Description 06/24/2022 Clinical Support Oncology Vini Maki M.D., Ph.D. [address] [place] [phone] Hamida Ram L.G.S.W., M.S.W. 2022 Clinical Communication Admitting/Central Scheduling 07/19/2022 Appointment Radiology Vini Maki M.D., Ph.D. [address] [place] [phone] 07/22/2022 Comprehensive Visit Gastroenterology and Andres Mehta Hepatheri Lozada M.D. [address] [place] [address] [phone] 07/23/2022 Lab Laboratory Medicine Vini Maki M.D., Ph.D. [address] [place] [address] [phone] 07/23/2022 Office Visit Oncology Rebeca Valle P.A.-C., M.S. [address] [place] [phone] documented as of this encounter Visit Diagnoses Diagnosis Astrocytoma (HCC) - Primary Hyperthyroidism documented in this encounter
--- OUTSIDE RECORDS SUMMARY | 2022-06-19 11:39 | XMS_ITS | Encounter Summary ---
:1970 Author Organization [facility] Address [address] [place] [address] Care Team Providers Name Role Phone Unavailable Primary Care Provider Unavailable Reason for Referral Radiation Therapy (Routine) - Pending Review Specialty Diagnoses / Procedures Referred By Contact Refer red To Contact Diagnoses Malignant Neoplasm Of Brain (HCC) Stephanie Gleason M.D. [facility] Radiation Oncology Procedures Management Visit [address] [facility] [place], [place] [phone] [place] [phone] Referral ID Status Reason Start Date Expiration Date Visits V isits Requested Authorized [id number] Pending 12/31/2021 12/31/2022 10 10 Review Reason for Visit Radiation Therapy (Routine) - Pending Review Specialty Diagnoses / Procedures Referred By Contact Refer red To Contact Diagnoses Malignant Neoplasm Of Brain (HCC) Stephanie Gleason M.D. [facility] Radiation Oncology Procedures Management Visit [address] [facility] [place] [phone] [address] [place] [phone] Referral ID Status Reason Start Date Expiration Date Visits V isits Requested Authorized [id number] Pending 12/31/2021 12/31/2022 10 10 Review Encounter Details Date Type Department Care Team Description 02/26/2022 Hospital Encounter Department of Stephanie Gleason Neoplasm Radiation Oncology Sebastian Marcelino Of Brain ([facility]) in [place], [address] [place] [address] [place] [phone] [place], [place] [phone] (Work) [phone] Social History Tobacco Use Types Packs/Day Years [...] have completed or the highest Maulik, MEd, COAT PADDER, MOISE) degree you have received? Sex Assigned [...] 6 (six) hours as needed for pain. gabapentin (NEURONTIN) Take 2 capsules (200 12 [...] 1 tablet (8 mg 30 tablet 3 /02/202203/01/2022 mg tabletIndications: total) by mouth Malignant Neoplasm [...] (cGy) First Treatment Last Treatment Elapsed Days [id number] 01/31/2022 02/26/2022 Course Summary 01/31/2022 02/26/2022 The patient was seen and examined today with Dr. Gleason. The patient reports that she is doing well overall. She reports a franc amount of nausea for which she has a decreased appetite. She reports her vision to be improved and that she is working with OT, PT and Speech therapy weekly at [facility]. She does state she has noticed some hair loss and thinning on the left side of her head. Headaches are minimal and intermittent in nature. She takes Tylenol on occasion for headaches. She denies fevers, chills, seizures, vomiting, hearing changes or skin changes. Patient is requesting [employer] disability parking pass. She is also requesting information on [employer] resources. She notes improvement in her memory. [...] went in for lab work today at [facility]. Patient states that [facility] was planning on faxing results of today's lab work to Medical Oncology on our [facility]. She is now taking 140 mg of Temodar instead of 160 mg. She is scheduled for brain MR, Medical Oncology and Neurosurgery follow up on April 04, 2022 on on [facility]. We will continue to see patient [...] Support Oncology Vini Maki M.D., Ph.D. [address] [place] [phone] Hamida Ram L.G.S.W., M.S.W. 2022 Clinical Communication Admitting/Central Scheduling 07/19/2022 Appointment Radiology Vini Maki M.D., Ph.D. [address] [place] [phone] 07/22/2022 Comprehensive Visit Gastroenterology and Andres Mehta Hepatology Sebastian Lozada [address] [place] [phone] 07/23/2022 Lab Laboratory Medicine Vini Maki M.D., Ph.D. [address] [place] [address] [phone] 07/23/2022 Office Visit Oncology Rebeca Valle P.A.-C., M.S. [address] [place] [phone] Scheduled Orders Name Type Priority Associated Diagnoses Order S chedule Management Visit Radiation Oncology Routine Malignant Neoplasm Once for 1 Of Brain (HCC) Occurrences s tarting 02/26/2022 unti l 02/26/2022 documented as of this encounter Visit Diagnoses Diagnosis Malignant Neoplasm Of Brain (HCC) documented in this encounter
--- OUTSIDE RECORDS SUMMARY | 2022-06-19 11:39 | XMS_ITS | Encounter Summary ---
:1970 Author Organization [facility] Address [address] [place] [address] Care Team Providers Name Role Phone Unavailable Primary Care Provider Unavailable Reason for Referral Outpatient (Routine) - Closed Specialty Diagnoses / Procedures Referred By Contact Refer red To Contact Social Work Diagnoses Malignant Neoplasm Of Brain (HCC) Stephanie Gelason M.D. [place] [address] [place] [address] Referral ID Status Reason Start Date Expiration Date Visits Requ ested Visits Authorized [id number] Closed 02/27/2022 02/27/2023 1 1 Scheduling Instructions Schedule with Belia Amezquita tomorrow. Thanks! Encounter Details Date Type Department Care Team Description 02/27/2022 Orders Only Department of Stephanie Gleason Malignant N eoplasm Of Radiation Oncology in [place] Brain (HCC) (Primary [place], [facility] a [address] [facility] Dx) [address] [place] [phone] Social History Tobacco Use Types Packs/Day Years [...] 01/07/2022 organizations such as episcopal groups, unions, fra[employer]ion - [employer] or athletic groups, or school groups? How [...] have completed or the highest Maulik, MEd, TWISTING DEPARTMENT END FINDER, MOISE) degree you have received? Sex Assigned at Date Recorded Female 01/07/2022 11:11 AM CDT documented as of this encounter Plan of Treatment Upcoming Encounters Date Type Specialty Care Team Description 06/24/2022 Clinical Support Oncology Vini Maki M.D., Ph.D. [address] [place] [phone] Hamida Ram L.G.SMio, M.S.W. 2022 Clinical Communication Admitting/Central Scheduling 07/19/2022 Appointment Radiology Vini Maki M.D., Ph.D. [address] [place] [phone] 07/22/2022 Comprehensive Visit Gastroenterology and Andres Mehta Hepatology Odin Lozada. [address] [place] [phone] 07/23/2022 Lab Laboratory Medicine Vini Maki M.D., Ph.D. [address] [place] [phone] 07/23/2022 Office Visit Oncology Rebeca Valle P.A.-C., M.S. [address] [place] [phone] Scheduled Referrals Name Type Priority Associated Diagnoses Order S [facility] Social Work - Outpatient Referral Routine Malignant Neoplasm E xpected: General consult Of Brain (HCC) 02/28/2022 (clinic) (Approximate), Expires: 05/30/2023 documented as of this encounter Visit Diagnoses Diagnosis Malignant Neoplasm Of Brain (HCC) - Prim uyen documented in this encounter
--- OUTSIDE RECORDS SUMMARY | 2022-06-19 11:39 | XMS_ITS | Encounter Summary ---
:1970 Author Organization [facility] Address [address] [place] [address] Care Team Providers Name Role Phone Unavailable Primary Care Provider Unavailable Reason for Visit Radiation Therapy (Routine) - Closed Specialty Diagnoses / Procedures Referred By Contact Refer red To Contact Diagnoses Malignant Neoplasm Of Brain (HCC) Stephanie Gleason M.D. [facility] Radiation Oncology Procedures Prior Auth Rad Tx [place] IMRT COMPLEX [address] [place], [place] [phone] [address] [facility] [place] [address] Referral ID Status Reason Start Date Expiration Date Visits Requ ested Visits Authorized [id number] Closed 01/31/2022 12/31/2022 30 30 Encounter Details Date Type Department Care Team Description 02/22/2022 Hospital Encounter Department of Radiation Jacquelyn Gleason I., Oncology in [place] [address] [facility] [address] [place] [phone] Social History Tobacco Use Types Packs/Day Years [...] completed or the highest Maulik, MEd, SUPERVISOR SHAVING AND SPLITTING, MOISE) degree you have received? Sex Assigned [...] Support Oncology Vini Maki M.D., Ph.D. [address] [place] [address] [phone] Hamida Ram L.G.S.W., M.S.W. 2022 Clinical Communication Admitting/Central Scheduling 07/19/2022 Appointment Radiology Vini Maki M.D., Ph.D. [address] [place] [phone] 07/22/2022 Comprehensive Visit Gastroenterology and Andres Mehta Hepatheri Lozada M.D. [address] [place] [address] [phone] 07/23/2022 Lab Laboratory Medicine Vini Maki M.D., Ph.D. [address] [place] [phone] 07/23/2022 Office Visit Oncology Rebeca Valle P.A.-C., M.S. [address] [place] [address] [phone] documented as of this encounter Visit Diagnoses Not on filedocumented in this encounter
--- OUTSIDE RECORDS SUMMARY | 2022-06-19 11:39 | XMS_ITS | Encounter Summary ---
:[address] [facility] Address [address] [place] [address] Care Team Providers Name Role Phone Unavailable Primary Care Provider Unavailable Encounter Details Date Type Department Care Team Description 02/19/2022 Orders Only Pharmacy Prior Auth [place] Mikki Rodriguez [phone] Social History Tobacco Use Types Packs/Day Years [...] have completed or the highest Maulik, MEd, OVERSEER KOSHER KITCHEN, MOISE) degree you have received? Sex Assigned at Date Recorded Female 01/07/2022 11:11 AM CDT documented as of this encounter Plan of Treatment Upcoming Encounters Date Type Specialty Care Team Description 06/24/2022 Clinical Support Oncology Vini Maki M.D., Ph.D. [address] [place] [phone] Hamida Ram L.G.S.W., M.S.W. 2022 Clinical Communication Admitting/Central Scheduling 07/19/2022 Appointment Radiology Vini Maki M.D., Ph.D. [address] [place] [phone] 07/22/2022 Comprehensive Visit Gastroenterology and Andres Mehta Hepatheri Lozada M.D. [address] [place] [phone] 07/23/2022 Lab Laboratory Medicine Vini Maki M.D., Ph.D. [address] [place] [address] [phone] 07/23/2022 Office Visit Oncology Rebeca Valle P.A.-C., M.S. [address] [place] [phone] documented as of this encounter Visit Diagnoses Not on filedocumented in this encounter
--- OUTSIDE RECORDS SUMMARY | 2022-06-19 11:39 | XMS_ITS | Encounter Summary ---
:1970 Author Organization [facility] Address [address] [place] [address] Care Team Providers Name Role Phone Unavailable Primary Care Provider Unavailable Reason for Visit Reason Comments 02/26/22 labs Encounter Details Date Type Department Care Team Description 02/26/2022 Clinical Communication Department of Oncology Jono Flanagan, 02/26/22 labs in [facility] R.N. [address] [facility] [phone] [place], [place] (Work) [phone] Social History Tobacco Use Types Packs/Day Years [...] have completed or the highest Maulik, MEd, DAYTIME CAREGIVER, MOISE) degree you have received? Sex Assigned at Date Recorded Female 01/07/2022 11:11 AM CDT documented as of this encounter Miscellaneous Notes Telephone Encounter - Trupti Pearson - 03/01/2022 10:16 AM CDT Images from the original note were not included. Telephone Encounter - Olivia Koenig D.N.P., M.A., R.N., HNB-BC - 02/28/2022 10:48 AM CDT I called [facility] to help expedite the process, asked them to call us if there were any additional questions Addendum Note - Dodie Aragon P.A.-C., M.S. - 02/28/2022 10:04 AM CDT Addended by: DODIE ARAGON on: 02/28/2022 10:04 AM Modules accepted: Orders Telephone Encounter - Trupti Pearson - 02/28/2022 8:39 AM CDT Unfortunately [facility] can not call the insurance company. I can provide the patient with the [employer] office number. They would best able to [...] Libby provided me with patient's medicaid number [id number]--vauc were given this number today but patient [...] we need more information. Thank you, Hannah GIPSONT [facility] [place] [facility] AA POD 1 Telephone Encounter - Trupti Pearson - 02/27/2022 3:32 PM CDT Waiting for patient to send new insurance cards over. Might have to re run a PA with the new insurance Telephone Encounter - Olivia Koenig D.N.P., M.Domingo., R.N., HNShereen-BC - 02/27/2022 1:40 PM CDT SUBJECTIVE Glioblastoma CHIEF COMPLAINT / REASON FOR CALL 02/26/22 labs Information Discussed I spoke with Mia Souza's mother, regarding issues with [facility]. Mia's insurance changed on February 22, and [employer] did not send the refill of the medication prior to the change, so there is no an issue with getting the refill. Libby was understandably upset, I listened to her concerns a nd voiced understanding. I offered to reach out to our social media job titles in the hopes that she would have [...] they were applying for social security in [place] and filled out form [id number]. She [...] listed numbers for both below. Libby, mother: [phone] Mia, patient: [phone] Thank you, Michael [facility] Med AA Pod 1 documented in this encounter Plan of Treatment Upcoming Encounters Date Type Specialty Care Team Description 06/24/2022 Clinical Support Oncology Viin Maki M.D., Ph.D. [address] [place] [phone] Hamida Ram L.G.S.W., M.S.W. 2022 Clinical Communication Admitting/Central Scheduling 07/19/2022 Appointment Radiology Vini Maki M.D., Ph.D. [address] [place] [phone] 07/22/2022 Comprehensive Visit Gastroenterology and Andres Mehta Hepatheri Lozada M.D. [address] [place] [phone] 07/23/2022 Lab Laboratory Medicine Vini Maki M.D., Ph.D. [address] [place] [phone] 07/23/2022 Office Visit Oncology Dodie Aragon P.A.-C., M.S. [address] [place] [phone] documented as of this encounter Visit Diagnoses Diagnosis Malignant Neoplasm Of Brain (HCC) documented in this encounter
--- OUTSIDE RECORDS SUMMARY | 2022-06-19 11:39 | XMS_ITS | Encounter Summary ---
:1970 Author Organization [facility] Address [address] [place] [address] Care Team Providers Name Role Phone Unavailable Primary Care Provider Unavailable Reason for Visit Reason Comments 02/26/22 labs Encounter Details Date Type Department Care Team Description 02/26/2022 Clinical Communication Department of Oncology Jono Flanagan, 02/26/22 labs in [facility] R.N. [address] [facility] [phone] [place], [place] (Work) [phone] Social History Tobacco Use Types Packs/Day Years [...] have completed or the highest Maulik, MEd, SNAKER TRACTOR DRIVER, MOISE) degree you have received? Sex Assigned at Date Recorded Female 01/07/2022 11:11 AM CDT documented as of this encounter Miscellaneous Notes Telephone Encounter - Olivia Koenig D.N.P., M.A., R.N., JASON-BC - 02/26/2022 1:56 PM CDT Labs Verified Telephone Encounter - Trupti Pearson - 02/26/2022 1:37 PM CDT Labs have been entered and are ready for review. documented in this encounter Plan of Treatment Upcoming Encounters Date Type Specialty Care Team Description 06/24/2022 Clinical Support Oncology Vini Maki M.D., Ph.D. [address] [place] [phone] Hamida Ram L.G.S.W., M.S.W. 2022 Clinical Communication Admitting/Central Scheduling 07/19/2022 Appointment Radiology Vini Maki M.D., Ph.D. [address] [place] [phone] 07/22/2022 Comprehensive Visit Gastroenterology and Andres Mehta Hepatology Sebastian Lozada [address] [place] [phone] 07/23/2022 Lab Laboratory Medicine Vini Maki M.D., Ph.D. [address] [place] [phone] 07/23/2022 Office Visit Oncology Rebeca Valle P.A.-C., M.S. [address] [place] [phone] documented as of this encounter Procedures Procedure [...] (A) 12 - 16 OTHER (SPECIFY IN [place]) EXT Leukocytes 4.3 (A) 4.5 - 11 OTHER (SPECIFY IN [place]) EXT Absolute 2.8 1.7 - 7.0 OTHER Neutrophil (SPECIFY IN Count [place]) EXT Lymphs 1.10 0.9 - 2.90 OTHER Absolute (SPECIFY IN [place]) EXT Platelet 507 (A) 140 - 440 OTHER Count (SPECIFY IN [place]) Specimen (Source) Anatomical Collection Method Collection Time Re ceived Time Location / / Volume Laterality Blood 02/26/2022 11:46 AM CDT Narrative This result has an attachment that is no t available. Historical Provider LAB BLOOD NON ADD-ON Performing Organization Address City/State/ZIP Code Phon e Number OTHER (SPECIFY IN [place]) OTHER (SPECIFY IN [place]) N/A documented in this encounter Visit Diagnoses Not on filedocumented in this encounter
--- OUTSIDE RECORDS SUMMARY | 2022-06-19 11:39 | XMS_ITS | Encounter Summary ---
:1970 Author Organization [facility] Address [address] [place] [address] Care Team Providers Name Role Phone Unavailable Primary Care Provider Unavailable Reason for Referral Outpatient (Routine) - Closed Specialty Diagnoses / Procedures Referred By Contact Refer red To Contact Oncology Rebeca Valle P .A.-C., M.S. [address] [phone] Referral ID Status Reason Start Date Expiration Date Visits Requ ested Visits Authorized [id number] Closed 02/20/2022 02/20/2023 1 1 Reason for Visit Outpatient (Routine) - Closed Specialty Diagnoses / Procedures Referred By Contact Refer red To Contact Oncology Rebeca Valle P .A.-C., M.S. [address] [phone] Referral ID Status Reason Start Date Expiration Date Visits Requ ested Visits Authorized [id number] Closed 01/30/2022 01/30/2023 1 1 Encounter Details Date Type Department Care Team Description 02/20/2022 Virtual Visit Department of Rebeca Valle Astrocy toma (HCC) (Primary Dx); Oncology in [place] Malignant Neoplasm Of Brain (HCC) [place], [place] 200 [facility] 200 [place] [phone] Social History Tobacco Use Types Packs/Day Years [...] completed or the highest Maulik, MEd, MANAGER RELATIONSHIP, MOISE) degree you have received? Sex Assigned at Date Recorded Female 01/07/2022 11:11 AM CDT documented as of this encounter Progress Notes Rebeca Valle P.A.-C., M.S. - 02/20/2022 2:40 PM CDT SUBJECTIVE COLLABORATING ONCOLOGIST: Dr. Maki PRIMARY [place] ONCOLOGIST: Farzana Allen M.D. CHIEF COMPLAINT/REASON FOR [...] sense. The patient was taken to the [facility] with altered mental status. The [...] Keppra and transferred to [facility]. 11/30/2021 Imaging MRI of the [...] left mass, biopsy - Astrocytoma, at least SUPERVISOR HARDBOARD WHO grade 3. See comment. B. Brain, left mass, excision - Astrocytoma, at least SUPERVISOR HARDBOARD WHO grade 3. See comment. Final Diagnosis: [...] to Dr. Shelbie Ackerman at the [facility]. Discussed that it was okay for the [...] Referral to Radiation Oncology at [facility] in [place]. 01/10/2022 Surgery and Procedures Left temporoparietal stereotactic craniotomy with tumor resection, speech mapping with Dr. Ivey. PATHOLOGY: A-D. 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 See comment. 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 The biopsy specimen lacked microvascular proliferation and tumor necrosis. By immunohistochemistry, the tumor cells were negative for IDH1-R132H and showed retained ATRX expression. 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 01/10/2022 Imaging MRI of [...] Days 02/20/2022 20 ??? Reference Point 02/20/2022 [id number] ??? Dosage Given to Date cGy 02/20/2022 3000 ??? Session Dosage Given 02/20/2022 200 ??? Plan ID 02/20/2022 [id number] ??? Fractions Treated to Date 02/20/2022 15 ??? Planned Total Fractions 02/20/2022 30 ??? Prescribed Dose Per Frac* 02/20/2022 200 ??? Prescription Dose in cGy 02/20/2022 6000 ??? Plan Primary Reference P* 02/20/2022 [id number] [facility] Results on 02/18/2022 Component Date Value ??? Course ID 02/18/2022 [id number] ??? Course Start Date 02/18/2022 01/01/2022 08:23 CDT ??? First Treatment Date 02/18/2022 01/31/2022 10:11 CDT ??? Last Treatment Date 02/18/2022 02/18/2022 12:58 CDT ??? Treatment Elapsed Days 02/18/2022 18 ??? Reference Point 02/18/2022 [id number] ??? Dosage Given to Date cGy 02/18/2022 2600 ??? Session Dosage Given 02/18/2022 200 ??? Plan ID 02/18/2022 [id number] ??? Fractions Treated to Date 02/18/2022 13 ??? Planned Total Fractions 02/18/2022 30 ??? Prescribed Dose Per Frac* 02/18/2022 200 ??? Prescription Dose in cGy 02/18/2022 6000 ??? Plan Primary Reference P* 02/18/2022 [id number] ??? Course ID 02/19/2022 [id number] ??? Course Start Date 02/19/2022 01/01/2022 08:23 CDT ??? First Treatment Date 02/19/2022 01/31/2022 10:11 CDT ??? Last Treatment Date 02/19/2022 02/19/2022 13:02 CDT ??? Treatment Elapsed Days 02/19/2022 19 ??? Reference Point 02/19/2022 [id number] ??? Dosage Given to Date cGy 02/19/2022 2800 ??? Session Dosage Given 02/19/2022 200 ??? Plan ID 02/19/2022 [id number] ??? Fractions Treated to Date 02/19/2022 14 ??? Planned Total Fractions 02/19/2022 30 ??? Prescribed Dose Per Frac* 02/19/2022 200 ??? Prescription Dose in cGy 02/19/2022 6000 ??? Plan Primary Reference P* 02/19/2022 [id number] [facility] Results on 02/15/2022 Component Date Value ??? Course ID 02/15/2022 [id number] ??? Course Start Date 02/15/2022 01/01/2022 08:23 CDT ??? First Treatment Date 02/15/2022 01/31/2022 10:11 CDT ??? Last Treatment Date 02/15/2022 02/15/2022 09:35 CDT ??? Treatment Elapsed Days 02/15/2022 15 ??? Reference Point 02/15/2022 [id number] ??? Dosage Given to Date cGy 02/15/2022 2400 ??? Session Dosage Given 02/15/2022 200 ??? Plan ID 02/15/2022 [id number] ??? Fractions Treated to Date 02/15/2022 12 ??? Planned Total Fractions 02/15/2022 30 ??? Prescribed Dose Per Frac* 02/15/2022 200 ??? Prescription Dose in cGy 02/15/2022 6000 ??? Plan Primary Reference P* 02/15/2022 [id number] Patient Message on 02/14/2022 Component Date Value [...] physicians, nurse practitioners/physician assistants, nurses and other human resources support specialist that specialize in this cancer. [...] Support Oncology Vini Maki M.D., Ph.D. [address] [place] [phone] Hamida Ram L.G.S.W., M.S.W. 2022 Clinical Communication Admitting/Central Scheduling 07/19/2022 Appointment Radiology Vini Maki M.D., Ph.D. [address] [place] [phone] 07/22/2022 Comprehensive Visit Gastroenterology and Andres Mehta Hepatheri Lozada M.D. [address] [place] [address] [phone] 07/23/2022 Lab Laboratory Medicine Vini Maki M.D., Ph.D. [address] [place] [phone] 07/23/2022 Office Visit Oncology Rebeca Valle P.A.-C., M.S. [address] [place] [address] [phone] Scheduled Referrals Name Type Priority Associated Diagnoses Order [facility] office Outpatient Referral Routine Expec anayeli: visit (clinic) 04/04/2022, General; Brain Expires: 05/23/2023 documented as of this encounter Visit Diagnoses Diagnosis Astrocytoma (HCC) - Primary Malignant Neoplasm Of Brain (HCC) documented in this encounter
--- OUTSIDE RECORDS SUMMARY | 2022-06-19 11:39 | XMS_ITS | Encounter Summary ---
:1970 Author Organization [facility] Address [address] [place] [address] Care Team Providers Name Role Phone Unavailable Primary Care Provider Unavailable Reason for Visit Radiation Therapy (Routine) - Closed Specialty Diagnoses / Procedures Referred By Contact Refer red To Contact Diagnoses Malignant Neoplasm Of Brain (HCC) Stephanie Gleason M.D. [facility] [[email or web address]] Radiation Oncology Procedures Prior Auth Rad Tx [place] IMRT COMPLEX [address] [place], [place] [phone] [facility] [place] [place] [address] Referral ID Status Reason Start Date Expiration Date Visits Requ ested Visits Authorized [id number] Closed 01/31/2022 12/31/2022 30 30 Encounter Details Date Type Department Care Team Description 03/01/2022 Hospital Encounter Department of Radiation Jacquelyn Gleason I., Oncology in [place] [address] [facility] [address] [place] [phone] Social History Tobacco Use Types Packs/Day Years [...] have completed or the highest Maulik, MEd, MILLINERY TEACHER, MOISE) degree you have received? Sex [...] Support Oncology Vini Maki M.D., Ph.D. 200 [place] [phone] Hamida Ram L.G.S.W., M.S.W. 2022 Clinical Communication Admitting/Central Scheduling 07/19/2022 Appointment Radiology Vini Maki M.D., Ph.D. [address] [place] [phone] 07/22/2022 Comprehensive Visit Gastroenterology and Andres Metha Hepatheri Lozada M.D. [address] [place] [address] [phone] 07/23/2022 Lab Laboratory Medicine Vini Maki M.D., Ph.D. [address] [place] [address] [phone] 07/23/2022 Office Visit Oncology Rebeca Valle P.A.-C., M.S. [address] [place] [address] [phone] documented as of this encounter Visit Diagnoses Not on filedocumented in this encounter
--- OUTSIDE RECORDS SUMMARY | 2022-06-19 11:39 | XMS_ITS | Encounter Summary ---
:1970 Author Organization [facility] Address [address] [place] [address] Care Team Providers Name Role Phone Unavailable Primary Care Provider Unavailable Reason for Visit Radiation Therapy (Routine) - Closed Specialty Diagnoses / Procedures Referred By Contact Refer red To Contact Diagnoses Malignant Neoplasm Of Brain (HCC) Stephanie Gleason M.D. [facility] Radiation Oncology Procedures Prior Auth Rad Tx [place] IMRT COMPLEX [address] [place], [place] [phone] [facility] [place] [address] Referral ID Status Reason Start Date Expiration Date Visits Requ ested Visits Authorized [id number] Closed 01/31/2022 12/31/2022 30 30 Encounter Details Date Type Department Care Team Description 02/21/2022 Hospital Encounter Department of Radiation Jacquelyn Gleason I., Oncology in [place] [address] [facility] [address] [place] [phone] Social History Tobacco Use Types Packs/Day Years [...] have completed or the highest Maulik, MEd, SKETCHER, MOISE) degree you have received? Sex Assigned [...] Oncology Vini Maki M.D., Ph.D. [address] [place] [address] [phone] Hamida Ram L.G.S.W., M.S.W. 2022 Clinical Communication Admitting/Central Scheduling 07/19/2022 Appointment Radiology Vini Maki M.D., Ph.D. [address] [place] [phone] 07/22/2022 Comprehensive Visit Gastroenterology and Andres Mehta Hepatheri Lozada M.D. [address] [place] [address] [phone] 07/23/2022 Lab Laboratory Medicine Vini Maki M.D., Ph.D. [address] [place] [phone] 07/23/2022 Office Visit Oncology Rebeca Valle P.A.-C., M.S. [address] [place] [address] [phone] documented as of this encounter Visit Diagnoses Not on filedocumented in this encounter
--- OUTSIDE RECORDS SUMMARY | 2022-06-19 11:39 | XMS_ITS | Encounter Summary ---
:[address] [facility] Address [address] [place] [address] Care Team Providers Name Role Phone Unavailable Primary Care Provider Unavailable Reason for Referral Radiation Therapy (Routine) - Pending Review Specialty Diagnoses / Procedures Referred By Contact Refer red To Contact Diagnoses Malignant Neoplasm Of Brain (HCC) Stephanie Gleason M.D. [facility] Radiation Oncology Procedures Management Visit [address] [facility] at [place], [place] [phone] [email or web address] [address] Referral ID Status Reason Start Date Expiration Date Visits V isits Requested Authorized [id number] Pending 12/31/2021 12/31/2022 10 10 Review Reason for Visit Radiation Therapy (Routine) - Pending Review Specialty Diagnoses / Procedures Referred By Contact Refer red To Contact Diagnoses Malignant Neoplasm Of Brain (HCC) Stephanie Gleason M.D. [facility] Radiation Oncology Procedures Management Visit [address] [facility] [place] [address] [email or web address] [address] Referral ID Status Reason Start Date Expiration Date Visits V isits Requested Authorized [id number] Pending 12/31/2021 12/31/2022 10 10 Review Encounter Details Date Type Department Care Team Description 02/21/2022 Hospital Encounter Department of Voldoymyr Yung Neoplasm Radiation Oncology Sebastian De La Cruz Of Brain (HCC) in [place], [address] [place] [address] [place] [phone] [place], [place] [phone] (Work) [phone] Social History Tobacco Use Types Packs/Day Years [...] have completed or the highest Maulik, MEd, OFFICE ASSOCIATE, MOISE) degree you have received? Sex [...] Brain (HCC) SUPERVISED BY: Volodymyr Yung M.D. ([id number]) HISTORY OF PRESENT ILLNESS Mia Richardson is [...] (cGy) First Treatment Last Treatment Elapsed Days [id number] 01/31/2022 02/21/2022 Course Summary [...] that she is working with OT at [facility]. She does state she has noticed increased [...] of Nausea and Vomiting pamphlet was provided [id number]. We will continue to monitor symptoms. Patient [...] Volodymyr Yung M.D. 02/21/2022 5:[address] [facility] [address] [place] [address] documented in this encounter Plan of Treatment Upcoming Encounters Date Type Specialty Care Team Description 06/24/2022 Clinical Support Oncology Vini Maki M.D., Ph.D. [address] [place] [phone] Hamida Ram L.G.Ambrose., M.S.W. 2022 Clinical Communication Admitting/Central Scheduling 07/19/2022 Appointment Radiology Vini Maki M.D., Ph.D. [address] [place] [address] [phone] 07/22/2022 Comprehensive Visit Gastroenterology and Andres Mehta Hepatology Sebastian Lozada [address] [place] [address] [phone] 07/23/2022 Lab Laboratory Medicine Vini Maki M.D., Ph.D. [address] [place] [address] [phone] 07/23/2022 Office Visit Oncology Rebeca Valle P.A.-C., M.S. [address] [place] [address] [phone] Scheduled Orders Name Type Priority Associated Diagnoses Order S chedule Management Visit Radiation Oncology Routine Malignant Neoplasm Once for 1 Of Brain (HCC) Occurrences s tarting 02/21/2022 unti l 02/21/2022 documented as of this encounter Visit Diagnoses Diagnosis Malignant Neoplasm Of Brain (HCC) documented in this encounter
--- OUTSIDE RECORDS SUMMARY | 2022-06-19 11:39 | XMS_ITS | Encounter Summary ---
:1970 Author Organization [facility] Address [address] [place] [address] Care Team Providers Name Role Phone Unavailable Primary Care Provider Unavailable Reason for Referral Outpatient (Routine) - Closed Specialty Diagnoses / Procedures Referred By Contact Refer red To Contact Social Work Diagnoses Malignant Neoplasm Of Brain (HCC) Stephanie Gleason M.D. [address] [phone] Referral ID Status Reason Start Date Expiration Date Visits Requ ested Visits Authorized [id number] Closed 02/27/2022 02/27/2023 1 1 Scheduling Instructions Schedule with Belia Amezquita tomorrow. Thanks! Reason for Visit Outpatient (Routine) - Closed Specialty Diagnoses / Procedures Referred By Contact Refer red To Contact Social Work Diagnoses Malignant Neoplasm Of Brain (HCC) Stephanie Gleason M.D. [address] [phone] Referral ID Status Reason Start Date Expiration Date Visits Requ ested Visits Authorized [id number] Closed 02/27/2022 02/27/2023 1 1 Encounter Details Date Type Department Care Team Description 02/28/2022 Hospital Encounter Department of Luis Armando Gleason M.D. [address] [place] [phone] Malignant Neoplasm Radiation Oncology Belia Amezquita L.I.C.S.W., M.S.W. 200 [place] [address] Of Brain (HCC) in [place], [place] 200 [place] [address] Social History Tobacco Use Types Packs/Day Years [...] have completed or the highest Maulik, MEd, SCENERY BUILDER, MOISE) degree you have received? Sex Assigned [...] L.I.C.S.W., M.S.W. - 02/28/2022 9:00 AM CDT [employer] completed a phone call to the patient to talk with her about her insurance and additional financial resources that would assist in decreasing financial toxicity. The patient confirm she wasable to get medical assistance in place as her primary insurance as of 02/22/2022. She reports [facility] workers will be discussing today if this [...] burden. Discussion took place about communication with [facility] to assist with navigating benefits for out [...] her vision. She would like to have [employer] send contact informationPassHat portal for future communication and contact. [employer] Work communicated updates with primary radiation Oncology team and social Work. Care coordination will be ongoing. documented in this encounter Plan of Treatment Upcoming Encounters Date Type Specialty Care Team Description 06/24/2022 Clinical Support Oncology Vini Maki M.D., Ph.D. [address] [place] [phone] Hamida Ram L.G.S.W., M.S.W. 2022 Clinical Communication Admitting/Central Scheduling 07/19/2022 Appointment Radiology Vini Maki M.D., Ph.D. [address] [place] [phone] 07/22/2022 Comprehensive Visit Gastroenterology and Andres Mehta Hepatology Sebastian Lozada [address] [place] [phone] 07/23/2022 Lab Laboratory Medicine Vini Maki M.D., Ph.D. [address] [place] [phone] 07/23/2022 Office Visit Oncology Rebeca Valle P.A.-C., M.S. [address] [place] [phone] Scheduled Referrals Name Type Priority Associated Order Schedule Diagnoses Social Work - Outpatient Referral Routine Malignant Neoplasm O nce for 1 General consult Of Brain (HCC) Occurrence s starting (clinic) 02/28/2022 unti l 02/28/2022 documented as of this encounter Visit Diagnoses Diagnosis Malignant Neoplasm Of Brain (HCC) documented in this encounter
--- OUTSIDE RECORDS SUMMARY | 2022-06-19 11:39 | XMS_ITS | Encounter Summary ---
:1970 Author Organization [facility] Address [address] [place] [address] Care Team Providers Name Role Phone Unavailable Primary Care Provider Unavailable Reason for Referral Outpatient (Routine) - Closed Specialty Diagnoses / Procedures Referred By Contact Refer red To Contact Endocrinology Diagnoses Hyperthyroidism Subclinical Farzana Allen M.D. [facility] [address] [place] [phone] Referral ID Status Reason Start Date Expiration Date Visits Requ ested Visits Authorized [id number] Closed 02/27/2022 02/27/2023 1 1 Encounter Details Date Type Department Care Team Description 02/27/2022 Orders Only Integrative Medicine Farzana Allen Hyper thyroidism and Health in [place] Fer[place] Subclinical (Primary Dx) [address] [place] [phone] Social History Tobacco Use Types Packs/Day Years [...] 01/07/2022 organizations such as mandaen groups, unions, [employer] or athletic groups, or school groups? How [...] completed or the highest Maulik, MEd, HEAD COACH, MOISE) degree you have received? Sex Assigned at Date Recorded Female 01/07/2022 11:11 AM CDT documented as of this encounter Plan of Treatment Upcoming Encounters Date Type Specialty Care Team Description 06/24/2022 Clinical Support Oncology Vini Maki M.D., Ph.D. [address] [place] [address] [phone] Hamida Ram L.G.STammy., M.S.W. 2022 Clinical Communication Admitting/Central Scheduling 07/19/2022 Appointment Radiology Vini Maki M.D., Ph.D. [address] [place] [phone] 07/22/2022 Comprehensive Visit Gastroenterology and Andres Mehta Hepatology Sebastian Lozada [address] [place] [address] [phone] 07/23/2022 Lab Laboratory Medicine Vini Maki M.D., Ph.D. [address] [place] [address] [phone] 07/23/2022 Office Visit Oncology Rebeca Valle P.A.-C., M.S. [address] [place] [address] [phone] Scheduled Referrals Name Type Priority Associated Diagnoses Order [facility] - Outpatient Routine Hyperthyroidism Expected: Thyroid disorders Referral Subclinical 02/27/2022 consult (clinic) (Approximat e), Expires: 05/30/2023 documented as of this encounter Visit Diagnoses Diagnosis Hyperthyroidism Subclinical - Primary documented in this encounter
--- OUTSIDE RECORDS SUMMARY | 2022-06-19 11:39 | XMS_ITS | Encounter Summary ---
:1970 Author Organization [facility] Address [address] [place] [address] Care Team Providers Name Role Phone Unavailable Primary Care Provider Unavailable Reason for Visit Radiation Therapy (Routine) - Closed Specialty Diagnoses / Procedures Referred By Contact Refer red To Contact Diagnoses Malignant Neoplasm Of Brain (HCC) Stephanie Gleason M.D. [facility] Radiation Oncology Procedures Prior Auth Rad Tx [place] IMRT COMPLEX [address] [place], [place] [address] [address] [facility] [place] [address] Referral ID Status Reason Start Date Expiration Date Visits Requ ested Visits Authorized [id number] Closed 01/31/2022 12/31/2022 30 30 Encounter Details Date Type Department Care Team Description 02/26/2022 Hospital Encounter Department of Radiation Jacquelyn Gleason I., Oncology in [place] [address] [facility] [address] [place] [phone] Social History Tobacco Use Types Packs/Day Years [...] have completed or the highest Maulik, MEd, MIXING HOUSE OPERATOR, MOISE) degree you have received? Sex [...] Support Oncology Vini Maki M.D., Ph.D. [address] [place] [phone] Hamida Ram L.G.S.W., M.S.W. 2022 Clinical Communication Admitting/Central Scheduling 07/19/2022 Appointment Radiology Vini Maki M.D., Ph.D. [address] [place] [phone] 07/22/2022 Comprehensive Visit Gastroenterology and Andres Mehta Hepatology Sebastian Lozada [address] [place] [address] [phone] 07/23/2022 Lab Laboratory Medicine Vini Maki M.D., Ph.D. [address] [place] [address] [phone] 07/23/2022 Office Visit Oncology Rebeca Valle P.A.-C., M.S. [address] [place] [phone] documented as of this encounter Visit Diagnoses Not on filedocumented in this encounter
--- OUTSIDE RECORDS SUMMARY | 2022-06-19 11:39 | XMS_ITS | Encounter Summary ---
:1970 Author Organization [facility] Address [address] [place] [address] Care Team Providers Name Role Phone Unavailable Primary Care Provider Unavailable Reason for Visit Reason Comments Genetic Testing Results Encounter Details Date Type Department Care Team Description 02/27/2022 Documentation Department of Medical Sejal Resendiz Genetic Testing Genetics in [place], [place]., CGC Results [place], [place] [address] [place] [address] [address] [place] [phone] Social History Tobacco Use Types Packs/Day Years [...] have completed or the highest Maulik, MEd, TELEVISION WRITER, MOISE) degree you have received? Sex Assigned at Date Recorded Female 01/07/2022 11:11 AM CDT documented as of this encounter Progress Notes Sejal Resendiz M.S., [facility] [place] 02/27/2022 1:42 PM CDT Images from [...] Multi-Cancer + Nervous system/brain cancer panel from [facility]. IMPRESSION/REPORT/PLAN RESULTS I spoke with Ms. Cedillo today regarding her genetic test results. 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 This variant had been previously identified in [...] RISK MANAGEMENT The National Comprehensive Cancer Network (v.2.2022) recommends the following for individuals with apathogenic [...] recommendations, such as those made by the [place] [employer], do remain appropriate. These screening recommendations may change if there are changes to the patient's personal and/or family history. Medical management guidelines for CHEK2 will likely plant changer time. We recommend that patients contact [...] recommendations, such as those made by the [place] Cancer[employer], do remain appropriate. RISKS TO RELATIVES [...] area, family members can visit the website [email or web address].Tappit. We will also provide a family letter in this regard. RESOURCES The organization [employer] (Facing Our Risk for Cancer Empowered) has the mission of improving the livesof individuals and families affected by hereditary cancer. The website for this organization is: www.[employer]org. PLAN Ms. Cedillo will be referred to [...] me back at her earliest convenience at [phone]. I will attempt to reach her two more times in the coming days. As always, she is welcome to contact me with any questions in the future. documented in this encounter Plan of Treatment Upcoming Encounters Date Type Specialty Care Team Description 06/24/2022 Clinical Support Oncology Vini Maki M.D., Ph.D. [address] [place] [phone] Hamida Ram L.G.S.W., M.S.W. 2022 Clinical Communication Admitting/Central Scheduling 07/19/2022 Appointment Radiology Vini Maki M.D., Ph.D. [address] [place] [address] [phone] 07/22/2022 Comprehensive Visit Gastroenterology and Andres Mehta Hepatology Sebastian Lozada [address] [place] [phone] 07/23/2022 Lab Laboratory Medicine Vini Maki M.D., Ph.D. [address] [place] [phone] 07/23/2022 Office Visit Oncology Rebeca Valle P.A.-C., M.S. [address] [place] [phone] documented as of this encounter Visit Diagnoses Not on filedocumented in this encounter
--- OUTSIDE RECORDS SUMMARY | 2022-06-19 11:39 | XMS_ITS | Encounter Summary ---
:1970 Author Organization [facility] Address [address] [place] [address] Care Team Providers Name Role Phone Unavailable Primary Care Provider Unavailable Reason for Visit Radiation Therapy (Routine) - Closed Specialty Diagnoses / Procedures Referred By Contact Refer red To Contact Diagnoses Malignant Neoplasm Of Brain (HCC) Stephanie Gleason M.D. [facility] Radiation Oncology Procedures Prior Auth Rad Tx [place] IMRT COMPLEX [address] [place], [place] [address] [address] [facility] [place] [address] Referral ID Status Reason Start Date Expiration Date Visits Requ ested Visits Authorized [id number] Closed 01/31/2022 12/31/2022 30 30 Encounter Details Date Type Department Care Team Description 02/27/2022 Hospital Encounter Department of Radiation Jacquelyn Gleason I., Oncology in [place] [address] [facility] [address] [place] [phone] Social History Tobacco Use Types Packs/Day Years [...] have completed or the highest Maulik, MEd, HIGH SCHOOL HOME ECONOMICS TEACHER, MOISE) degree you have received? Sex [...] Support Oncology Vini Maki M.D., Ph.D. [address] [place] [phone] Hamida Ram L.G.S.W., M.S.W. 2022 Clinical Communication Admitting/Central Scheduling 07/19/2022 Appointment Radiology Vini Maki M.D., Ph.D. [address] [place] [phone] 07/22/2022 Comprehensive Visit Gastroenterology and Andres Mehta Hepatology Sebastian Lozada [address] [place] [address] [phone] 07/23/2022 Lab Laboratory Medicine Vini Maki M.D., Ph.D. [address] [place] [address] [phone] 07/23/2022 Office Visit Oncology Rebeca Valle P.A.-C., M.S. [address] [place] [address] [phone] documented as of this encounter Visit Diagnoses Not on filedocumented in this encounter
--- OUTSIDE RECORDS SUMMARY | 2022-06-19 11:39 | XMS_ITS | Encounter Summary ---
:1970 Author Organization [facility] Address [address] [place] [address] Care Team Providers Name Role Phone Unavailable Primary Care Provider Unavailable Reason for Visit Reason Comments Med Refill Encounter Details Date Type Department Care Team Description 02/26/2022 Clinical Communication Department of Oncology Jono Flanagan, Med Refill in [facility] monica R.NSanjuanita [address] [facility] [phone] [place], [place] (Work) [phone] Social History Tobacco Use Types Packs/Day Years [...] have completed or the highest Maulik, MEd, PHOTOGRAPHS CURATOR, MOISE) degree you have received? Sex [...] Support Oncology Vini Maki M.D., Ph.D. [address] [place] [phone] Hamida Ram L.G.S.W., M.S.W. 2022 Clinical Communication Admitting/Central Scheduling 07/19/2022 Appointment Radiology Vini Maki M.D., Ph.D. [address] [place] [address] [phone] 07/22/2022 Comprehensive Visit Gastroenterology and Andres Mehta Hepatology Sebastian Lozada [address] [place] [phone] 07/23/2022 Lab Laboratory Medicine Vini Maki M.D., Ph.D. [address] [place] [phone] 07/23/2022 Office Visit Oncology Rebeca Valle P.A.-C., M.S. [address] [place] [phone] documented as of this encounter Visit Diagnoses Not on filedocumented in this encounter
--- OUTSIDE RECORDS SUMMARY | 2022-06-19 11:39 | XMS_ITS | Encounter Summary ---
:1970 Author Organization [facility] Address [address] [place] [address] Care Team Providers Name Role Phone Unavailable Primary Care Provider Unavailable Reason for Visit Radiation Therapy (Routine) - Closed Specialty Diagnoses / Procedures Referred By Contact Refer red To Contact Diagnoses Malignant Neoplasm Of Brain (HCC) Stephanie Gleason M.D. [facility] Radiation Oncology Procedures Prior Auth Rad Tx [place] IMRT COMPLEX [address] [place], [place] [address] [address] [facility] [place] [address] Referral ID Status Reason Start Date Expiration Date Visits Requ ested Visits Authorized [id number] Closed 01/31/2022 12/31/2022 30 30 Encounter Details Date Type Department Care Team Description 02/20/2022 Hospital Encounter Department of Radiation Jacquelyn Gleason I., Oncology in [place] [address] [facility] [address] [place] [phone] Social History Tobacco Use Types Packs/Day Years [...] completed or the highest Maulik, MEd, SCRAPER MEAT, MOISE) degree you have received? Sex Assigned [...] Support Oncology Vini Maki M.D., Ph.D. [address] [place] [phone] Hamida Ram L.G.S.W., M.S.W. 2022 Clinical Communication Admitting/Central Scheduling 07/19/2022 Appointment Radiology Vini Maki M.D., Ph.D. [address] [place] [phone] 07/22/2022 Comprehensive Visit Gastroenterology and Andres Mehta Hepatheri Lozada M.D. [address] [place] [address] [phone] 07/23/2022 Lab Laboratory Medicine Vini Maki M.D., Ph.D. [address] [place] [phone] 07/23/2022 Office Visit Oncology Rebeca Valle P.A.-C., M.S. [address] [place] [address] [phone] documented as of this encounter Visit Diagnoses Not on filedocumented in this encounter
--- OUTSIDE RECORDS SUMMARY | 2022-06-19 11:40 | XMS_ITS | Encounter Summary ---
:1970 Author Organization [facility] Address [address] [place] [address] Care Team Providers Name Role Phone Unavailable Primary Care Provider Unavailable Reason for Visit Reason Comments labs only 02/13/22 01/28/22 labs Encounter Details Date Type Department Care Team Description 02/13/2022 Clinical Communication Department of Latanya Michael lab s only 02/13/22; Oncology in D, R.N., O.C.N. 01/28/22 labs Johnny, [address] [place], [place] [address] [facility] [phone] [place] [address] Social History Tobacco Use Types Packs/Day Years [...] completed or the highest Maulik, MEd, TEST BORER, MOISE) degree you have received? Sex Assigned at Date Recorded Female 01/07/2022 11:11 AM CDT documented as of this encounter Miscellaneous Notes Telephone Encounter - Olivia Koenig D.N.P., M.Domingo., R.N., SULAIMANB- - 02/14/2022 3:46 PM CDT Labs Verified Telephone Encounter - Trupti Pearson - 02/14/2022 [...] 02/14/2022 1:34 PM CDT Faxed request to [facility] to send latest labs Telephone Encounter - Olivia Koenig D.N.P., Beatriz.Domingo., R.N., HNB-BC - 02/13/2022 4:28 PM CDT Labs Verified Telephone Encounter - Trupti Pearson - 02/13/2022 4:21 PM CDT Labs have been entered and are ready for review. documented in this encounter Plan of Treatment Upcoming Encounters Date Type Specialty Care Team Description 06/24/2022 Clinical Support Oncology Vini Maki M.D., Ph.D. [address] [place] [address] [phone] Hamida Ram L.G.S.W., M.S.W. 2022 Clinical Communication Admitting/Central Scheduling 07/19/2022 Appointment Radiology Vini Maki M.D., Ph.D. [address] [place] [phone] 07/22/2022 Comprehensive Visit Gastroenterology and Andres Mehta Hepatology Sebastian Lozada [address] [place] [phone] 07/23/2022 Lab Laboratory Medicine Vini Maki M.D., Ph.D. [address] [place] [phone] 07/23/2022 Office Visit Oncology Rebeca Valle P.A.-C., M.S. [address] [place] [phone] documented as of this encounter Procedures Procedure [...] External Lab Results (02/13/2022 9:30 AM CDT) [facility] gist Method Time Signature EXT Hemoglobin 12.5 12 - 15.5 OTHER (SPECIFY IN QUALITY CONTROL CLERK) EXT Leukocytes 2.61 (A) 5 - 10 OTHER (SPECIFY IN QUALITY CONTROL CLERK) EXT Absolute 0.82 (A) 1.7 - 7 OTHER Neutrophil Count (SPECIFY IN QUALITY CONTROL CLERK) EXT Lymphs 1.45 0.9 - OTHER Absolute 2.90 (SPECIFY IN QUALITY CONTROL CLERK) EXT Monocytes 0.20 (A) 0.3 - 0.9 OTHER Absolute (SPECIFY IN QUALITY CONTROL CLERK) EXT Eosinophils 0.11 0.0 - 0.5 OTHER Absolute (SPECIFY IN QUALITY CONTROL CLERK) EXT Basophils 0.03 0.0 - 0.2 OTHER (SPECIFY IN QUALITY CONTROL CLERK) EXT Platelet 260 150 - 450 OTHER Count (SPECIFY IN QUALITY CONTROL CLERK) EXT Magnesium 2.1 1.5 - 2.6 OTHER (SPECIFY IN QUALITY CONTROL CLERK) EXT Cholesterol, 225 (A) 90 - 199 OTHER Total, S (SPECIFY IN QUALITY CONTROL CLERK) EXT 107 40 - 149 OTHER Triglycerides, S (SPECIFY IN QUALITY CONTROL CLERK) EXT Cholesterol, 53 >=50 OTHER HDL, S (SPECIFY IN QUALITY CONTROL CLERK) EXT LDL 151 <100 OTHER Cholesterol (SPECIFY IN QUALITY CONTROL CLERK) EXT TSH, 0.015 (A) 0.270 - OTHER Sensitive 4.2 (SPECIFY IN QUALITY CONTROL CLERK) Specimen (Source) Anatomical Collection Method Collection Time Re ceived Time Location / / Volume Laterality Blood 02/13/2022 9:30 AM CDT Narrative This result has an attachment that is no t available. Historical Provider LAB BLOOD NON ADD-ON Performing Organization Address City/State/ZIP Code Phon e Number OTHER (SPECIFY IN QUALITY CONTROL CLERK) OTHER (SPECIFY IN QUALITY CONTROL CLERK) N/A (ABNORMAL) Hematology/Oncology - Blood, External Lab Results (01/28/2022 1:45 PM CDT) [facility] gist Method Time Signature EXT Hemoglobin 10.9 (A) 12.0 - OTHER 15.5 (SPECIFY IN QUALITY CONTROL CLERK) EXT Leukocytes 8.01 5.0 - 10.0 OTHER (SPECIFY IN QUALITY CONTROL CLERK) EXT Absolute 3.29 1.70 - 7.0 OTHER Neutrophil Count (SPECIFY IN QUALITY CONTROL CLERK) EXT Lymphs 3.97 (A) 0.90 - OTHER Absolute 2.90 (SPECIFY IN QUALITY CONTROL CLERK) EXT Platelet 360 150 - 450 OTHER Count (SPECIFY IN QUALITY CONTROL CLERK) EXT AST 35 12 - 35 OTHER (SPECIFY IN QUALITY CONTROL CLERK) EXT ALT 21 4 - 35 OTHER (SPECIFY IN QUALITY CONTROL CLERK) EXT Alkaline 53 40 - 150 OTHER Phosphatase (SPECIFY IN QUALITY CONTROL CLERK) EXT Bilirubin, 0.5 0.1 - 1.5 OTHER Total mg/dL (SPECIFY IN QUALITY CONTROL CLERK) EXT Albumin 3.9 3.3 - 5.0 OTHER g/dL (SPECIFY IN QUALITY CONTROL CLERK) EXT Sodium 134 (A) 135 - 149 OTHER mmol/L (SPECIFY IN QUALITY CONTROL CLERK) EXT Potassium 4.1 3.6 - 5.1 OTHER (SPECIFY IN QUALITY CONTROL CLERK) EXT Calcium, 8.6 8.4 - 10.6 OTHER Total (SPECIFY IN QUALITY CONTROL CLERK) EXT Creatinine 0.7 0.5 - 1.5 OTHER mg/dL (SPECIFY IN QUALITY CONTROL CLERK) EXT Glucose, 180 104 60 - 115 OTHER Min (SPECIFY IN QUALITY CONTROL CLERK) Specimen (Source) Anatomical Collection Method Collection Time Re ceived Time Location / / Volume Laterality Blood 01/28/2022 1:45 PM CDT Historical Provider LAB BLOOD NON ADD-ON Performing Organization Address City/State/ZIP Code Phon e Number OTHER (SPECIFY IN QUALITY CONTROL CLERK) OTHER (SPECIFY IN QUALITY CONTROL CLERK) N/A documented in this encounter Visit Diagnoses Not on filedocumented in this encounter
--- OUTSIDE RECORDS SUMMARY | 2022-06-19 11:40 | XMS_ITS | Encounter Summary ---
:1970 Author Organization [facility] Address [address] [place] [address] Care Team Providers Name Role Phone Unavailable Primary Care Provider Unavailable Reason for Visit Reason Comments Temodar question Encounter Details Date Type Department Care Team Description 02/13/2022 Clinical Communication Department of Rebeca Valle emodaangela question Oncology in Neo Amado., M.S. [place], [address] [place] [address] [place] [phone] [place], [place] [phone] (Work) [phone] Social History Tobacco Use Types Packs/Day Years [...] have completed or the highest Maulik, MEd, RADIO SPORTSCASTER, MOISE) degree you have received? Sex Assigned [...] [facility] 140mg [facility]. [facility] Disposition/Recommendation: RN will contact [facility] regarding situation. Will discuss with physicianif ok to just take 140mg, or 280mg tonight. Information/Education: patient/caller able to teach back Caller agreeable to plan of care: yes The following references were used: nursing clinical judgement Telephone Encounter - Stacy Flanagan R.N. - 02/13/2022 3:30 PM CDT Spoke with pharmacist at [facility] regarding TMZ prescription. Clarified that only half of the 42 day quantity was shipped on 02/01. The remaining half is scheduled for shipment on 02/20. Will update the patient. documented in this encounter Plan of Treatment Upcoming Encounters Date Type Specialty Care Team Description 06/24/2022 Clinical Support Oncology Vini Maki M.D., Ph.D. [address] [place] [phone] Hamida Ram L.G.S.W., M.S.W. 2022 Clinical Communication Admitting/Central Scheduling 07/19/2022 Appointment Radiology Vini Maki M.D., Ph.D. [address] [place] [phone] 07/22/2022 Comprehensive Visit Gastroenterology and Andres Mehta Hepatology Odin Lozada. [address] [place] [phone] 07/23/2022 Lab Laboratory Medicine Vini Maki M.D., Ph.D. [address] [place] [phone] 07/23/2022 Office Visit Oncology Rebeca Valle P.A.-C., M.S. [address] [place] [phone] documented as of this encounter Visit Diagnoses Not on filedocumented in this encounter
--- OUTSIDE RECORDS SUMMARY | 2022-06-19 11:40 | XMS_ITS | Encounter Summary ---
:1970 Author Organization [facility] Address [address] [place] [address] Care Team Providers Name Role Phone Unavailable Primary Care Provider Unavailable Encounter Details Date Type Department Care Team Description 02/15/2022 Orders Only Department of Neurology in Karthikeyan Cedeno M.D. [place], [place] [address] [facility] [address] [place] [phone] (Wo rk) Social History Tobacco Use Types [...] have completed or the highest Maulik, MEd, STORE LEAD, MOISE) degree you have received? Sex Assigned at Date Recorded Female 01/07/2022 11:11 AM CDT documented as of this encounter Plan of Treatment Upcoming Encounters Date Type Specialty Care Team Description 06/24/2022 Clinical Support Oncology Vini Maki M.D., Ph.D. [address] [place] [phone] Hamida Ram L.G.S.W., M.S.W. 2022 Clinical Communication Admitting/Central Scheduling 07/19/2022 Appointment Radiology Vini Maki M.D., Ph.D. [address] [place] [address] [phone] 07/22/2022 Comprehensive Visit Gastroenterology and Andres Mehta Hepatheri Lozada M.D. [address] [place] [phone] 07/23/2022 Lab Laboratory Medicine Vini Maki M.D., Ph.D. [address] [place] [phone] 07/23/2022 Office Visit Oncology Rebeca Valle P.A.-C., M.S. [address] [place] [phone] documented as of this encounter Visit Diagnoses Not on filedocumented in this encounter
--- OUTSIDE RECORDS SUMMARY | 2022-06-19 11:40 | XMS_ITS | Encounter Summary ---
:1970 Author Organization [facility] Address [address] [place] [address] Care Team Providers Name Role Phone Unavailable Primary Care Provider Unavailable Reason for Visit Reason Comments Labs Only Encounter Details Date Type Department Care Team Description 02/14/2022 Clinical Communication Department of Oncology Olivia Sanchez Labs Only in [facility], Pillo.N.P., M.A., [place] R.N., HNB-BC [address] [facility] [address] [place] [phone] Social History Tobacco Use Types Packs/Day Years [...] have completed or the highest Maulik, MEd, WOOD ROUTER, MOISE) degree you have received? Sex Assigned [...] weekly labs drawn, and recommended talking with [facility] to learn about their scheduling [...] Oncology Vini Maki M.D., Ph.D. [address] [place] [phone] Hamida Ram L.G.S.W., M.S.W. 2022 Clinical Communication Admitting/Central Scheduling 07/19/2022 Appointment Radiology Vini Maki M.D., Ph.D. [address] [place] [phone] 07/22/2022 Comprehensive Visit Gastroenterology and Andres Mehta Hepatology Sebastian Lozada [address] [place] [phone] 07/23/2022 Lab Laboratory Medicine iVni Maki M.D., Ph.D. [address] [place] [phone] 07/23/2022 Office Visit Oncology Rebeca Valle P.A.-C., M.S. [address] [place] [address] [phone] documented as of this encounter Visit Diagnoses Not on filedocumented in this encounter
--- OUTSIDE RECORDS SUMMARY | 2022-06-19 11:40 | XMS_ITS | Encounter Summary ---
:1970 Author Organization [facility] Address [address] [place] [address] Care Team Providers Name Role Phone Unavailable Primary Care Provider Unavailable Reason for Visit Radiation Therapy (Routine) - Closed Specialty Diagnoses / Procedures Referred By Contact Refer red To Contact Diagnoses Malignant Neoplasm Of Brain (HCC) Stephanie Gleason M.D. [facility] Radiation Oncology Procedures Prior Auth Rad Tx [place] IMRT COMPLEX [address] [place], [place] [address] [address] [facility] [place] [address] Referral ID Status Reason Start Date Expiration Date Visits Requ ested Visits Authorized [id number] Closed 01/31/2022 12/31/2022 30 30 Encounter Details Date Type Department Care Team Description 02/12/2022 Hospital Encounter Department of Radiation Jacquelyn Gleason I., Oncology in [place] [address] [facility] [address] [place] [phone] Social History Tobacco Use Types Packs/Day Years [...] have completed or the highest Maulik, MEd, CISSP, MOISE) degree you have received? Sex Assigned [...] Oncology Vini Maki M.D., Ph.D. [address] [place] [address] [phone] Hamida Ram L.G.S.W., M.S.W. 2022 Clinical Communication Admitting/Central Scheduling 07/19/2022 Appointment Radiology Vini Maki M.D., Ph.D. [address] [place] [phone] 07/22/2022 Comprehensive Visit Gastroenterology and Andres Mehta Hepatheri Lozada M.D. [address] [place] [address] [phone] 07/23/2022 Lab Laboratory Medicine Vini Maki M.D., Ph.D. [address] [place] [phone] 07/23/2022 Office Visit Oncology Rebeca Valle P.A.-C., M.S. [address] [place] [address] [phone] documented as of this encounter Visit Diagnoses Not on filedocumented in this encounter
--- OUTSIDE RECORDS SUMMARY | 2022-06-19 11:40 | XMS_ITS | Encounter Summary ---
:1970 Author Organization [facility] Address [address] [place] [address] Care Team Providers Name Role Phone Unavailable Primary Care Provider Unavailable Reason for Referral Radiation Therapy (Routine) - Pending Review Specialty Diagnoses / Procedures Referred By Contact Refer red To Contact Diagnoses Malignant Neoplasm Of Brain (HCC) Stephanie Gleasno M.D. [facility] Radiation Oncology Procedures Management Visit [address] [facility] [place], [place] [phone] [place] [address] Referral ID Status Reason Start Date Expiration Date Visits V isits Requested Authorized [id number] Pending 12/31/2021 12/31/2022 10 10 Review Reason for Visit Radiation Therapy (Routine) - Pending Review Specialty Diagnoses / Procedures Referred By Contact Refer red To Contact Diagnoses Malignant Neoplasm Of Brain (HCC) Stephanie Gleason M.D. [facility] Radiation Oncology Procedures Management Visit [address] [facility] [place] [phone] [place] [address] Referral ID Status Reason Start Date Expiration Date Visits V isits Requested Authorized [id number] Pending 12/31/2021 12/31/2022 10 10 Review Encounter Details Date Type Department Care Team Description 02/12/2022 Hospital Encounter Department of Stephanie Gleason Neoplasm Radiation Oncology Sebastian Marcelino Of Brain ([facility]) in [place], [address] [place] [address] [place] [phone] [place], [place] [phone] (Work) [phone] Social History Tobacco Use Types Packs/Day Years [...] have completed or the highest Maulik, MEd, APPRAISER AUDITOR, MOISE) degree you have received? Sex [...] (cGy) First Treatment Last Treatment Elapsed Days [id number] [phone] 01/31/2022 02/11/2022 11 Course [...] able to visit with OT rehab in [place] and this went well. PATIENT REPORTED SYMPTOM [...] Support Oncology Vini Maki M.D., Ph.D. [address] [place] [phone] Hamida Ram L.G.S.W., M.S.W. 2022 Clinical Communication Admitting/Central Scheduling 07/19/2022 Appointment Radiology Vini Maki M.D., Ph.D. [address] [place] [phone] 07/22/2022 Comprehensive Visit Gastroenterology and Andres Mehta Hepatheri Lozada M.D. [address] [place] [phone] 07/23/2022 Lab Laboratory Medicine Vini Maki M.D., Ph.D. [address] [place] [phone] 07/23/2022 Office Visit Oncology Rebeca Valle P.A.-C., M.S. [address] [place] [address] [phone] Scheduled Orders Name Type Priority Associated Diagnoses Order S chedule Management Visit Radiation Oncology Routine Malignant Neoplasm Once for 1 Of Brain (HCC) Occurrences s tarting 02/12/2022 unti l 02/12/2022 documented as of this encounter Visit Diagnoses Diagnosis Malignant Neoplasm Of Brain (HCC) documented in this encounter
--- OUTSIDE RECORDS SUMMARY | 2022-06-19 11:40 | XMS_ITS | Encounter Summary ---
:1970 Author Organization [facility] Address [address] [place] [address] Care Team Providers Name Role Phone Unavailable Primary Care Provider Unavailable Reason for Visit Radiation Therapy (Routine) - Closed Specialty Diagnoses / Procedures Referred By Contact Refer red To Contact Diagnoses Malignant Neoplasm Of Brain (HCC) Stephanie Gleason M.D. [facility] Radiation Oncology Procedures Prior Auth Rad Tx [place] IMRT COMPLEX [address] [place], [place] [address] [address] [place] [address] Referral ID Status Reason Start Date Expiration Date Visits Requ ested Visits Authorized [id number] Closed 01/31/2022 12/31/2022 30 30 Encounter Details Date Type Department Care Team Description 02/14/2022 Hospital Encounter Department of Radiation Jacquelyn Gleason I., Oncology in [place] [address] [facility] [address] [place] [phone] Social History Tobacco Use Types Packs/Day Years [...] have completed or the highest Maulik, MEd, BOAT OUTFITTER, MOISE) degree you have received? Sex Assigned [...] Oncology Vini Maki M.D., Ph.D. [address] [place] [address] [phone] Hamida Ram L.G.S.W., M.S.W. 2022 Clinical Communication Admitting/Central Scheduling 07/19/2022 Appointment Radiology Vini Maki M.D., Ph.D. [address] [place] [phone] 07/22/2022 Comprehensive Visit Gastroenterology and Andres Mehta Hepatheri Lozada M.D. [address] [place] [address] [phone] 07/23/2022 Lab Laboratory Medicine Vini Maki M.D., Ph.D. [address] [place] [phone] 07/23/2022 Office Visit Oncology Rebeca Valle P.A.-C., M.S. [address] [place] [phone] documented as of this encounter Visit Diagnoses Not on filedocumented in this encounter
--- OUTSIDE RECORDS SUMMARY | 2022-06-19 11:40 | XMS_ITS | Encounter Summary ---
:1970 Author Organization [facility] Address [address] [place] [address] Care Team Providers Name Role Phone Unavailable Primary Care Provider Unavailable Reason for Visit Radiation Therapy (Routine) - Closed Specialty Diagnoses / Procedures Referred By Contact Refer red To Contact Diagnoses Malignant Neoplasm Of Brain (HCC) Stephanie Gleason M.D. [facility] Radiation Oncology Procedures Prior Auth Rad Tx [place] IMRT COMPLEX [address] [place], [place] [address] 18[address] [facility] [place] [address] Referral ID Status Reason Start Date Expiration Date Visits Requ ested Visits Authorized [id number] Closed 01/31/2022 12/31/2022 30 30 Encounter Details Date Type Department Care Team Description 02/19/2022 Hospital Encounter Department of Radiation Jacquelyn Gleason I., Oncology in [place] [address] [facility] [address] [place] [phone] Social History Tobacco Use Types Packs/Day Years [...] have completed or the highest Maulik, MEd, IMPREGNATING TANK OPERATOR, MOISE) degree you have received? Sex [...] Oncology Vini Maki M.D., Ph.D. [address] [place] [address] [phone] Hamida Ram L.G.S.W., M.S.W. 2022 Clinical Communication Admitting/Central Scheduling 07/19/2022 Appointment Radiology Vini Maki M.D., Ph.D. [address] [place] [phone] 07/22/2022 Comprehensive Visit Gastroenterology and Andres Mehta Hepatheri Lozada M.D. [address] [place] [address] [phone] 07/23/2022 Lab Laboratory Medicine Vini Maki M.D., Ph.D. [address] [place] [phone] 07/23/2022 Office Visit Oncology Rebeca Valle P.A.-C., M.S. [address] [place] [address] [phone] documented as of this encounter Visit Diagnoses Not on filedocumented in this encounter
--- OUTSIDE RECORDS SUMMARY | 2022-06-19 11:40 | XMS_ITS | Encounter Summary ---
:1970 Author Organization [facility] Address [address] [place] [address] Care Team Providers Name Role Phone Unavailable Primary Care Provider Unavailable Reason for Visit Radiation Therapy (Routine) - Closed Specialty Diagnoses / Procedures Referred By Contact Refer red To Contact Diagnoses Malignant Neoplasm Of Brain (HCC) Stephanie Gleason M.D. [facility] Radiation Oncology Procedures Prior Auth Rad Tx [place] IMRT COMPLEX [address] [place], [place] [address] [place] [address] Referral ID Status Reason Start Date Expiration Date Visits Requ ested Visits Authorized [id number] Closed 01/31/2022 12/31/2022 30 30 Encounter Details Date Type Department Care Team Description 02/11/2022 Hospital Encounter Department of Radiation Jacquelyn Gleason I., Oncology in [place] [address] [facility] [address] [place] [phone] Social History Tobacco Use Types Packs/Day Years [...] have completed or the highest Maulik, MEd, NURSERY SUPERVISOR, MOISE) degree you have received? Sex [...] Oncology Vini Maki M.D., Ph.D. [address] [place] [address] [phone] Hamida Ram L.G.S.W., M.S.W. 2022 Clinical Communication Admitting/Central Scheduling 07/19/2022 Appointment Radiology Vini Maki M.D., Ph.D. [address] [place] [phone] 07/22/2022 Comprehensive Visit Gastroenterology and Andres Mehta Hepatheri Lozada M.D. [address] [place] [address] [phone] 07/23/2022 Lab Laboratory Medicine Vini Maki M.D., Ph.D. [address] [place] [phone] 07/23/2022 Office Visit Oncology Rebeca Valle P.A.-C., M.S. [address] [place] [address] [phone] documented as of this encounter Visit Diagnoses Not on filedocumented in this encounter
--- OUTSIDE RECORDS SUMMARY | 2022-06-19 11:40 | XMS_ITS | Encounter Summary ---
:1970 Author Organization [facility] Address [address] [place] [address] Care Team Providers Name Role Phone Unavailable Primary Care Provider Unavailable Reason for Visit Radiation Therapy (Routine) - Closed Specialty Diagnoses / Procedures Referred By Contact Refer red To Contact Diagnoses Malignant Neoplasm Of Brain (HCC) Stephanie Gleason M.D. [facility] Radiation Oncology Procedures Prior Auth Rad Tx [place] IMRT COMPLEX [address] [place], [place] [address] [address] [facility] [place] [address] Referral ID Status Reason Start Date Expiration Date Visits Requ ested Visits Authorized [id number] Closed 01/31/2022 12/31/2022 30 30 Encounter Details Date Type Department Care Team Description 02/13/2022 Hospital Encounter Department of Radiation Jacquelyn Gleason I., Oncology in [place] [address] [facility] [address] [place] [phone] Social History Tobacco Use Types Packs/Day Years [...] or the highest Maulik, MEd, VICE PRESIDENT SUPPLY CHAIN, MOISE) degree you have received? Sex Assigned [...] Support Oncology Vini Maki M.D., Ph.D. [address] [place] [address] [phone] Hamida Ram L.G.S.W., M.S.W. 2022 Clinical Communication Admitting/Central Scheduling 07/19/2022 Appointment Radiology Vini Maki M.D., Ph.D. [address] [place] [phone] 07/22/2022 Comprehensive Visit Gastroenterology and Andres Mehta Hepatheri Lozada M.D. [address] [place] [address] [phone] 07/23/2022 Lab Laboratory Medicine Vini Maki M.D., Ph.D. [address] [place] [phone] 07/23/2022 Office Visit Oncology Rebeca Valle P.A.-C., M.S. [address] [place] [address] [phone] documented as of this encounter Visit Diagnoses Not on filedocumented in this encounter
--- OUTSIDE RECORDS SUMMARY | 2022-06-19 11:40 | XMS_ITS | Encounter Summary ---
:1970 Author Organization [facility] Address [address] [place] [address] Care Team Providers Name Role Phone Unavailable Primary Care Provider Unavailable Reason for Referral Outpatient (Routine) - Closed Specialty Diagnoses / Procedures Referred By Contact Refer red To Contact Social Work Karthikeyan Cedeno M.D. [facility] [address] [place] [address] [phone] Referral ID Status Reason Start Date Expiration Date Visits Requ ested Visits Authorized [id number] Closed 02/13/2022 02/13/2023 1 1 Reason for Visit Outpatient (Routine) - Closed Specialty Diagnoses / Procedures Referred By Contact Refer red To Contact Social Work Diagnoses Tumor Brain (HCC) [facility] [address] [place] [phone] Referral ID Status Reason Start Date Expiration Date Visits Requ ested Visits Authorized [id number] Closed 01/30/2022 01/30/2023 1 1 Encounter Details Date Type Department Care Team Description 02/12/2022 Telemedicine Department of Oncology Sa miquel Valle P.A.-C., M.S. [address] [place] [phone] Tumor Brain (HCC) in [facility] Hamida Dooley L.G.S.W., M.S.W. 200 [place] [address] Social History Tobacco Use Types Packs/Day Years [...] have completed or the highest Maulik, MEd, GARBAGE DEPOT WORKER, MOISE) degree you have received? Sex Assigned at Date Recorded Female 01/07/2022 11:11 AM CDT documented as of this encounter Progress Notes Hamida Ram L.G.S.W., M.S.W. - 02/12/2022 1:00 PM CDT SUBJECTIVE [...] Souza is feeling overwhelmed. Libby asked if remote mortgage underwriter could write a check list of things to do. Social Work will write a check list & [...] her health insurance options through her employer. Social Work will also send a portal message with [...] cancer care journey here at [facility]. Ms. Cedillo & osei Souza were [...] 51 year old, female, whom resides in [place], [place]. Her mom- Libby has been staying [...] during cancer care here at [facility]. Interventions Provided: ~Supportive Counseling Regarding the [...] Oncology Vini Maki M.D., Ph.D. [address] [place] [phone] Hamida Ram L.G.S.W., M.S.W. 2022 Clinical Communication Admitting/Central Scheduling 07/19/2022 Appointment Radiology Vini Maki M.D., Ph.D. [address] [place] [phone] 07/22/2022 Comprehensive Visit Gastroenterology and Andres Mehta Hepatheri Lozada M.D. [address] [place] [phone] 07/23/2022 Lab Laboratory Medicine Vini Maki M.D., Ph.D. [address] [place] [phone] 07/23/2022 Office Visit Oncology Rebeca Valle P.A.-C., M.S. [address] [place] [address] Scheduled Referrals Name Type Priority Associated Diagnoses Order S [facility] Work Outpatient Referral Routine Expected : office visit 02/19/2022, (clinic) Expires: 05/16/2023 documented as of this encounter Visit Diagnoses Diagnosis Tumor Brain (HCC) documented in this encounter
--- OUTSIDE RECORDS SUMMARY | 2022-06-19 11:40 | XMS_ITS | Encounter Summary ---
:1970 Author Organization [facility] Address [address] [place] [address] Care Team Providers Name Role Phone Unavailable Primary Care Provider Unavailable Reason for Visit Radiation Therapy (Routine) - Closed Specialty Diagnoses / Procedures Referred By Contact Refer red To Contact Diagnoses Malignant Neoplasm Of Brain (HCC) Stephanie Gleason M.D. [facility] Radiation Oncology Procedures Prior Auth Rad Tx [place] IMRT COMPLEX [address] [place], [place] [phone] [facility] [place] [address] Referral ID Status Reason Start Date Expiration Date Visits Requ ested Visits Authorized [id number] Closed 01/31/2022 12/31/2022 30 30 Encounter Details Date Type Department Care Team Description 02/15/2022 Hospital Encounter Department of Radiation Jacquelyn Gleason I., Oncology in [place] [address] [facility] 1821 [place] [phone] Social History Tobacco Use Types Packs/Day Years [...] have completed or the highest Maulik, MEd, GEM STONE CUTTER, MOISE) degree you have received? Sex [...] Oncology Vini Maki M.D., Ph.D. [address] [place] [address] [phone] Hamida Ram L.G.S.W., M.S.W. 2022 Clinical Communication Admitting/Central Scheduling 07/19/2022 Appointment Radiology Vini Maki M.D., Ph.D. [address] [place] [phone] 07/22/2022 Comprehensive Visit Gastroenterology and Andres Mehta Hepatheri Lozada M.D. [address] [place] [address] [phone] 07/23/2022 Lab Laboratory Medicine Vini Maki M.D., Ph.D. [address] [place] [phone] 07/23/2022 Office Visit Oncology Rebeca Valle P.A.-C., M.S. [address] [place] [address] [phone] documented as of this encounter Visit Diagnoses Not on filedocumented in this encounter
--- OUTSIDE RECORDS SUMMARY | 2022-06-19 11:40 | XMS_ITS | Encounter Summary ---
:1970 Author Organization [facility] Address [address] [place] [address] Care Team Providers Name Role Phone Unavailable Primary Care Provider Unavailable Encounter Details Date Type Department Care Team Description 02/08/2022 Orders Only Department of Oncology Latanya Michael A strocytoma (HCC) in [place], R.N., O.C.N. (Primary Dx) [address] [place] [phone] Social History Tobacco Use Types Packs/Day Years [...] have completed or the highest Maulik, MEd, CONFIGURATOR, MOISE) degree you have received? Sex Assigned at Date Recorded Female 01/07/2022 11:11 AM CDT documented as of this encounter Plan of Treatment Upcoming Encounters Date Type Specialty Care Team Description 06/24/2022 Clinical Support Oncology Vini Maki M.D., Ph.D. [address] [place] [address] [phone] Hamida Ram L.G.S.W., M.S.W. 2022 Clinical Communication Admitting/Central Scheduling 07/19/2022 Appointment Radiology Vini Maki M.D., Ph.D. [address] [place] [phone] 07/22/2022 Comprehensive Visit Gastroenterology and Andres Mehta Hepatheri Lozada M.D. [address] [place] [phone] 07/23/2022 Lab Laboratory Medicine Vini Maki M.D., Ph.D. [address] [place] [phone] 07/23/2022 Office Visit Oncology Rebeca Valle P.A.-C., M.S. [address] [place] [phone] Scheduled Orders Name Type Priority Associated Diagnoses Order S chedule CBC with Differential, Lab Routine Astrocytoma (HCC) 6 Occurrences starting Blood 02/08/2022 unti l 02/08/2023 documented as of this encounter Visit Diagnoses Diagnosis Astrocytoma (HCC) - Primary documented in this encounter
--- OUTSIDE RECORDS SUMMARY | 2022-06-19 11:40 | XMS_ITS | Encounter Summary ---
:1970 Author Organization [facility] Address [address] [place] [address] Care Team Providers Name Role Phone Unavailable Primary Care Provider Unavailable Reason for Visit Radiation Therapy (Routine) - Closed Specialty Diagnoses / Procedures Referred By Contact Refer red To Contact Diagnoses Malignant Neoplasm Of Brain (HCC) Stephanie Gleason M.D. [facility] Radiation Oncology Procedures Prior Auth Rad Tx [place] IMRT COMPLEX [address] [place], [place] [phone] [facility] [place] [address] Referral ID Status Reason Start Date Expiration Date Visits Requ ested Visits Authorized [id number] Closed 01/31/2022 12/31/2022 30 30 Encounter Details Date Type Department Care Team Description 02/08/2022 Hospital Encounter Department of Radiation Jacquelyn Gleason I., Oncology in [place] [address] [facility] 18[address] [place] [phone] Social History Tobacco Use Types Packs/Day Years [...] have completed or the highest Maulik, MEd, COOK BARBECUE, MOISE) degree you have received? Sex Assigned [...] Support Oncology Vini Maki M.D., Ph.D. [address] [place] [address] [phone] Hamida Ram L.G.S.W., M.S.W. 2022 Clinical Communication Admitting/Central Scheduling 07/19/2022 Appointment Radiology Vini Maki M.D., Ph.D. [address] [place] [phone] 07/22/2022 Comprehensive Visit Gastroenterology and Andres Mehta Hepatheri Lozada M.D. [address] [place] [address] [phone] 07/23/2022 Lab Laboratory Medicine Vini Maki M.D., Ph.D. [address] [place] [phone] 07/23/2022 Office Visit Oncology Rebeca Valle P.A.-C., M.S. [address] [place] [address] [phone] documented as of this encounter Visit Diagnoses Not on filedocumented in this encounter
--- OUTSIDE RECORDS SUMMARY | 2022-06-19 11:40 | XMS_ITS | Encounter Summary ---
:1970 Author Organization [facility] Address [address] [place] [address] Care Team Providers Name Role Phone Unavailable Primary Care Provider Unavailable Reason for Visit Outpatient (Routine) - Closed Specialty Diagnoses / Procedures Referred By Contact Refer red To Contact Nutrition Diagnoses Astrocytoma (HCC) Farzana Allen M.D. [facility] [address] [place] [address] [phone] Referral ID Status Reason Start Date Expiration Date Visits Requ ested Visits Authorized [id number] Closed 02/07/2022 02/07/2023 1 1 Encounter Details Date Type Department Care Team Description 02/19/2022 Telemedicine Department of Oncology Farzana Allen M.D. [address] [place] [address] [phone] Astrocytoma (HCC) in [facility] Whitney Bran M.S., RDN, LD [address] [place] [phone] [address] [place] [address] [phone] Social History Tobacco Use Types Packs/Day Years [...] have completed or the highest Maulik, MEd, OCEANOGRAPHY PROFESSOR, MOISE) degree you have received? Sex Assigned at Date Recorded Female 01/07/2022 11:11 AM CDT documented as of this encounter Progress Notes Whitney Dowling M.S., BLAIR, LD - 02/19/2022 9:30 AM CDT CHIEF COMPLAINT/REASON FOR VISIT Ms. Mia Richardson was referred for ketogenic diet in the setting glioblastoma. Met with patient and mother. Consult conducted via real-time audio/video technology by Whitney Dowling M.S., BLAIR, LD in [facility] to the patient in her home. ASSESSMENT [...] Oncology Vini Maki M.D., Ph.D. [address] [place] [phone] Hamida Ram L.G.S.W., M.S.W. 2022 Clinical Communication Admitting/Central Scheduling 07/19/2022 Appointment Radiology Vini Maki M.D., Ph.D. [address] [place] [address] [phone] 07/22/2022 Comprehensive Visit Gastroenterology and Andres Mehta Hepatology [place] Lozada [address] [place] [address] [phone] 07/23/2022 Lab Laboratory Medicine Vini Maki M.D., Ph.D. [address] [place] [phone] 07/23/2022 Office Visit Oncology Rebeca Valle P.A.-C., M.S. [address] [place] [phone] documented as of this encounter Visit Diagnoses Diagnosis Astrocytoma (HCC) documented in this encounter
--- OUTSIDE RECORDS SUMMARY | 2022-06-19 11:40 | XMS_ITS | Encounter Summary ---
:1970 Author Organization [facility] Address [address] [place] [address] Care Team Providers Name Role Phone Unavailable Primary Care Provider Unavailable Reason for Visit Radiation Therapy (Routine) - Closed Specialty Diagnoses / Procedures Referred By Contact Refer red To Contact Diagnoses Malignant Neoplasm Of Brain (HCC) Stephanie Gleason M.D. [facility] Radiation Oncology Procedures Prior Auth Rad Tx [place] IMRT COMPLEX [address] [place], [place] [phone] [facility] [place] [address] Referral ID Status Reason Start Date Expiration Date Visits Requ ested Visits Authorized [id number] Closed 01/31/2022 12/31/2022 30 30 Encounter Details Date Type Department Care Team Description 02/18/2022 Hospital Encounter Department of Radiation Jacquelyn Gleason I., Oncology in [place] [address] [facility] 1821 [place] [phone] Social History Tobacco Use Types Packs/Day Years [...] have completed or the highest Maulik, MEd, SCREEN ROOM OPERATOR, MOISE) degree you have received? Sex [...] Oncology Vini Maki M.D., Ph.D. [address] [place] [address] [phone] Hamida Ram L.G.S.W., M.S.W. 2022 Clinical Communication Admitting/Central Scheduling 07/19/2022 Appointment Radiology Vini Maki M.D., Ph.D. [address] [place] [phone] 07/22/2022 Comprehensive Visit Gastroenterology and Andres Mehta Hepatheri Lozada M.D. [address] [place] [address] [phone] 07/23/2022 Lab Laboratory Medicine Vini Maki M.D., Ph.D. [address] [place] [phone] 07/23/2022 Office Visit Oncology Rebeca Valle P.A.-C., M.S. [address] [place] [address] [phone] documented as of this encounter Visit Diagnoses Not on filedocumented in this encounter
--- OUTSIDE RECORDS SUMMARY | 2022-06-19 11:40 | XMS_ITS | Encounter Summary ---
:1970 Author Organization [facility] Address [address] [place] [address] Care Team Providers Name Role Phone Unavailable Primary Care Provider Unavailable Reason for Visit Outpatient (Routine) - Closed Specialty Diagnoses / Procedures Referred By Contact Refer red To Contact Social Work Karthikeyan Cedeno M.D. [facility] [address] [place] [phone] Referral ID Status Reason Start Date Expiration Date Visits Requ ested Visits Authorized [id number] Closed 02/13/2022 02/13/2023 1 1 Encounter Details Date Type Department Care Team Description 02/19/2022 Telemedicine Department of Oncology Araseli Cedeno M.D. [address] [place] [address] [phone] Canceled (Provider: in [place] E, L.G.SSanjuanitaWSanjuanita, M.S.W. Request) [address] [phone] Social History Tobacco Use Types Packs/Day Years [...] 01/07/2022 organizations such as christian groups, unions, fraHighlightCam or athletic groups, or school groups? How [...] you have completed or the highest Maulik, Tirno, EPIC CUPID ANALYST, MOISE) degree you have received? Sex Assigned at Date Recorded Female 01/07/2022 11:11 AM CDT documented as of this encounter Plan of Treatment Upcoming Encounters Date Type Specialty Care Team Description 06/24/2022 Clinical Support Oncology Vini Maki M.D., Ph.D. [address] [place] [phone] Hamida Ram L.G.Sudhir, M.S.W. 2022 Clinical Communication Admitting/Central Scheduling 07/19/2022 Appointment Radiology Vini Maki M.D., Ph.D. [address] [place] [phone] 07/22/2022 Comprehensive Visit Gastroenterology and Andres Mehta Hepatology [place] Lozada [address] [place] [address] [phone] 07/23/2022 Lab Laboratory Medicine Vini Maki M.D., Ph.D. [address] [place] [address] [phone] 07/23/2022 Office Visit Oncology Rebeca Valle P.A.-C., M.S. [address] [place] [address] [phone] documented as of this encounter Visit Diagnoses Not on filedocumented in this encounter
--- OUTSIDE RECORDS SUMMARY | 2022-06-19 11:40 | XMS_ITS | Encounter Summary ---
:1970 Author Organization [facility] Address [address] [place] [address] Care Team Providers Name Role Phone Unavailable Primary Care Provider Unavailable Reason for Referral Specialty Diagnoses / Procedures Referred By Contact Refer red To Contact Stacy Easley P.A.-C ., M.S. [facility] [address] [place] [phone] Referral ID Status Reason Start Date Expiration Date Visits Requ ested Visits Authorized Encounter Details Date Type Department Care Team Description 02/07/2022 Hospital Encounter Department of Luis Armando Gleason M.D. [address] [place] [address] [phone] Malignant Neoplasm Radiation Oncology Eileen Hopkins R.N. [address] [place] [phone] Of Brain (HCC) in [place], [place] [address]21 [place] [phone] Social History Tobacco Use Types [...] 01/07/2022 organizations such as rastafarian groups, unions, fraGiferent or athletic groups, or school groups? How [...] have completed or the highest Maulik, MEd, STATION MECHANIC APPRENTICE, MOISE) degree you have received? Sex Assigned [...] education visit. HISTORY OF PRESENT ILLNESS Mia Richarsdon is a 51 y.o. 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 She is now undergoing radiotherapy. Treatment Course: 1xBrain Plan ID Fractions Dose / Fraction (cGy) Dose Treated (cGy) Dose Planned (cGy) First Treatment Last Treatment Elapsed Days [id number] 200 [id number] [id number] 01/31/2022 02/07/2022 7 Course [...] Oncology Vini Maki M.D., Ph.D. [address] [place] [phone] Hamida Ram L.G.S.W., M.S.W. 2022 Clinical Communication Admitting/Central Scheduling 07/19/2022 Appointment Radiology Vini Maki M.D., Ph.D. [address] [place] [phone] 07/22/2022 Comprehensive Visit Gastroenterology and Andres Mehta Hepatology [place] Lozada [address] [place] [phone] 07/23/2022 Lab Laboratory Medicine Vini Maki M.D., Ph.D. [address] [place] [phone] 07/23/2022 Office Visit Oncology Rebeca Valle P.A.-C., M.S. [address] [place] [phone] Scheduled Referrals Name Type Priority Associated Order Schedule Diagnoses Radiation Oncology Outpatient Referral Routine Malignant Neopl asm Once for 1 - Nurse education Of Brain (HCC) Occurren candice starting visit (clinic) 02/07/2022 un til 02/07/2022 documented as of this encounter Visit Diagnoses Diagnosis Malignant Neoplasm Of Brain (HCC) documented in this encounter
--- OUTSIDE RECORDS SUMMARY | 2022-06-19 11:40 | XMS_ITS | Encounter Summary ---
:1970 Author Organization [facility] Address [address] [place] [address] Care Team Providers Name Role Phone Unavailable Primary Care Provider Unavailable Encounter Details Date Type Department Care Team Description 02/12/2022 Clinical Communication Department of Oncology Farzana Allen, in [place] [address] [facility] [address] [place] [phone] Social History Tobacco Use Types Packs/Day Years [...] have completed or the highest Maulik, MEd, DEVELOPER ADVISOR, MOISE) degree you have received? Sex Assigned at Date Recorded Female 01/07/2022 11:11 AM CDT documented as of this encounter Plan of Treatment Upcoming Encounters Date Type Specialty Care Team Description 06/24/2022 Clinical Support Oncology Vini Maki M.D., Ph.D. [address] [place] [phone] Hamida Ram L.G.S.W., M.S.W. 2022 Clinical Communication Admitting/Central Scheduling 07/19/2022 Appointment Radiology Vini Maki M.D., Ph.D. [address] [place] [address] [phone] 07/22/2022 Comprehensive Visit Gastroenterology and Andres Mehta Hepatheri Lozada M.D. [address] [place] [phone] 07/23/2022 Lab Laboratory Medicine Vini Maki M.D., Ph.D. [address] [place] [phone] 07/23/2022 Office Visit Oncology Rebeca Valle P.A.-C., M.S. [address] [place] [phone] documented as of this encounter Visit Diagnoses Not on filedocumented in this encounter
--- OUTSIDE RECORDS SUMMARY | 2022-06-19 11:41 | XMS_ITS | Encounter Summary ---
:1970 Author Organization [facility] Address [address] [place] [address] Care Team Providers Name Role Phone Unavailable Primary Care Provider Unavailable Reason for Referral Outpatient (Routine) - Closed Specialty Diagnoses / Procedures Referred By Contact Refer red To Contact Oncology Rebeca Valle P .A.-C., M.S. [facility] [address] [place] [phone] Referral ID Status Reason Start Date Expiration Date Visits Requ ested Visits Authorized [id number] Closed 01/30/2022 01/30/2023 1 1 utpatient (Routine) - Closed Specialty Diagnoses / Procedures Referred By Contact Refer red To Contact Ophthalmology Diagnoses Malignant Neoplasm Of Brain (HCC) Blurred Vision Rebeca Valle [facility] Kobi, M.S. [address] [place] [phone] Referral ID Status Reason Start Date Expiration Date Visits Requ ested Visits Authorized [id number] Closed 01/30/2022 01/30/2023 1 1 utpatient (Routine) - Closed Specialty Diagnoses / Procedures Referred By Contact Refer red To Contact Oncology Rebeca Valle P .A.-C., M.S. [address] [phone] Referral ID Status Reason Start Date Expiration Date Visits Requ ested Visits Authorized [id number] Closed 01/30/2022 01/30/2023 1 1 Reason for Visit Outpatient (Routine) - Closed Specialty Diagnoses / Procedures Referred By Contact Refer red To Contact Oncology Karthikeyan Cedeno M.D. [address] [phone] Referral ID Status Reason Start Date Expiration Date Visits Requ ested Visits Authorized [id number] Closed 01/03/2022 01/03/2023 1 1 Encounter Details Date Type Department Care Team Description 01/30/2022 Virtual Visit Department of Rebeca Valle Maligna nt Neoplasm Of Brain (HCC) (Primary Dx); Oncology in Kobi M.S. Blurred Vision [address] [phone] [phone] Social History Tobacco Use Types Packs/Day Years [...] have completed or the highest Maulik, MEd, WEIGH MACHINE OPERATOR, MOISE) degree you have received? Sex Assigned at Date Recorded Female 01/07/2022 11:11 AM CDT documented as of this encounter Progress Notes Rebeca Valle P.A.-C., M.S. - 01/30/2022 1:00 PM CDT SUBJECTIVE COLLABORATING ONCOLOGIST: Dr. Maki PRIMARY [place] ONCOLOGIST: No care marine steam fitter to display CHIEF COMPLAINT/REASON FOR VISIT Mia [...] sense. The patient was taken to the [facility] with altered mental status. The patient [...] with steroids and Keppra and transferred to [facility]. 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 See comment. B. 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 See comment. Final Diagnosis: [...] Referral to Dr. Shelbie Ackerman at the [facility]. Discussed that it was okay for the patient to proceed with chemotherapy and radiation 1 month from biopsy date. Also discussed that itwas okay for the patient to travel on a commercial air flight approximately 1 month from biopsy as she was planning for a trip to [place] with her significant other in December. 12/24/[address] Shelbie Ackerman who reviewed the patient's case with Dr. Dunlap and he recommended against additional surgery. Dr. Macias recommended proceeding with a combination of radiation therapy plus temozolomide. Referral to Radiation Oncology at [facility] in [place]. 01/10/2022 Surgery and Procedures Left temporoparietal stereotactic craniotomy with tumor resection, speech mapping with Dr. Ivey. PATHOLOGY: A-D. 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 See comment. 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 The biopsy specimen lacked microvascular proliferation and tumor necrosis. By immunohistochemistry, the tumor cells were negative for IDH1-R132H and showed retained ATRX expression. 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 01/10/2022 Imaging MRI of [...] Planned Treatment Start Date: 01/31/2022 INTERVAL HISTORY: Mai Richardson presents today for follow up. In [...] certain distances - blurry vision. Last at investigator narcotics about 1.5 years ago and did have [...] and expedited - discussed weekly labs - [facility] - follow up snf and the end of radiation - appointment with integrative regarding supplement/vitamin questions We will plan on seeing the patient back snf and at the end of radiation therapy. [...] see the Neuro ophthalmology team here at [place]. - consult placed for neuro opthalmology PATIENT EDUCATION: Ready to learn, no apparent learning barriers were identified; learning preferences include listening. Explained diagnosis and treatment plan; patient expressed understanding of the content. Discussed with the patient we work together as a care team of physicians, nurse practitioners/physician assistants, nurses and other office support specialist that specialize in this cancer. Also, reviewed the importance of maintaining ongoing care with local oncology team and primary care physician. ADMINISTRATIVE BILLING: Consult conducted via real-time audio/video technology by Ashley Romero., M.S. in [facility] to the patient in their home. 30 minutes including visit, reviewing records, coordinating care. documented in this encounter Plan of Treatment Upcoming Encounters Date Type Specialty Care Team Description 06/24/2022 Clinical Support Oncology Vini Maki M.D., Ph.D. [address] [place] [phone] Hamida Ram L.G.S.W., M.S.W. 2022 Clinical Communication Admitting/Central Scheduling 07/19/2022 Appointment Radiology Viin Maki M.D., Ph.D. [address] [place] [phone] 07/22/2022 Comprehensive Visit Gastroenterology and Andres Mehta Hepatheri Lozada M.D. [address] [place] [phone] 07/23/2022 Lab Laboratory Medicine Vini Maki M.D., Ph.D. [address] [place] [phone] 07/23/2022 Office Visit Oncology Rebeca Valle P.A.-C., M.S. [address] [place] [address] [phone] Scheduled Referrals Name Type Priority Associated Order [...]
--- OUTSIDE RECORDS SUMMARY | 2022-06-19 11:41 | XMS_ITS | Encounter Summary ---
:1970 Author Organization [facility] Address [address] [place] [address] Care Team Providers Name Role Phone Unavailable Primary Care Provider Unavailable Encounter Details Date Type Department Care Team Description 01/28/2022 Orders Only Department of Cliff Sumner, Wen N eoplasm Of Radiation Oncology in M.Pillo., M.S. Brain (HCC) [facility] [place] [address] Dx) [address] [place] [address] [phone] Social History Tobacco Use Types Packs/Day Years [...] have completed or the highest Maulik, MEd, BAKER APPRENTICE, MOISE) degree you have received? Sex Assigned at Date Recorded Female 01/07/2022 11:11 AM CDT documented as of this encounter Plan of Treatment Upcoming Encounters Date Type Specialty Care Team Description 06/24/2022 Clinical Support Oncology Vini Maki M.D., Ph.D. [address] [place] [address] [phone] Hamida Ram L.G.S.W., M.S.W. 2022 Clinical Communication Admitting/Central Scheduling 07/19/2022 Appointment Radiology Vini Maki M.D., Ph.D. [address] [place] [phone] 07/22/2022 Comprehensive Visit Gastroenterology and Andres Mehta Hepatheri Lozada M.D. [address] [place] [address] [phone] 07/23/2022 Lab Laboratory Medicine Vini Maki M.D., Ph.D. [address] [place] [address] [phone] 07/23/2022 Office Visit Oncology Rebeca Valle P.A.-C., M.S. [address] [place] [address] documented as of this encounter Results Interpretation [...] 8 mm in thickness. Interval decrease in tssf-dl-kvifl midli ne shift with improved patency of [...] 8 mm in thickness. Interval decrease in qxvc-ko-rueas midli ne shift with improved patency of [...]
--- OUTSIDE RECORDS SUMMARY | 2022-06-19 11:41 | XMS_ITS | Encounter Summary ---
:1970 Author Organization [facility] Address [address] [place] [address] Care Team Providers Name Role Phone Unavailable Primary Care Provider Unavailable Reason for Visit Radiation Therapy (Routine) - Closed Specialty Diagnoses / Procedures Referred By Contact Refer red To Contact Diagnoses Malignant Neoplasm Of Brain (HCC) Stephanie Gleason M.D. [facility] Radiation Oncology Procedures Prior Auth Rad Tx NM IMRT COMPLEX [address] [place], [place] [phone] 1821 [facility] [place] [address] Referral ID Status Reason Start Date Expiration Date Visits Requ ested Visits Authorized [id number] Closed 01/31/2022 12/31/2022 30 30 Encounter Details Date Type Department Care Team Description 02/06/2022 Hospital Encounter Department of Radiation Jacquelyn Gleason I., Oncology in [place] [address] [facility] [address] [place] [phone] Social History Tobacco Use Types Packs/Day Years [...] have completed or the highest Maulik, MEd, ENVIRONMENTAL PLANNER, MOISE) degree you have received? Sex [...] Support Oncology Vini Maki M.D., Ph.D. [address] [place] [address] [phone] Hamida Ram L.G.S.W., M.S.W. 2022 Clinical Communication Admitting/Central Scheduling 07/19/2022 Appointment Radiology Vini Maki M.D., Ph.D. [address] [place] [phone] 07/22/2022 Comprehensive Visit Gastroenterology and Andres Mehta Hepatheri Lozada M.D. [address] [place] [address] [phone] 07/23/2022 Lab Laboratory Medicine Vini Maki M.D., Ph.D. [address] [place] [phone] 07/23/2022 Office Visit Oncology Rebeca Valle P.A.-C., M.S. [address] [place] [address] [phone] documented as of this encounter Visit Diagnoses Not on filedocumented in this encounter
--- OUTSIDE RECORDS SUMMARY | 2022-06-19 11:41 | XMS_ITS | Encounter Summary ---
:1970 Author Organization [facility] Address [address] [place] [address] Care Team Providers Name Role Phone Unavailable Primary Care Provider Unavailable Encounter Details Date Type Department Care Team Description 01/28/2022 Ancillary Procedure Department of Cliff Sumner Mali gnant Neoplasm Radiology in M.D., M.S. Of Brain ([facility]) [place], [place] [address] [facility] [address] [place] [phone] Social History Tobacco Use Types Packs/Day Years [...] have completed or the highest Maulik, MEd, PLASTIC PARTS FABRICATOR, MOISE) degree you have received? Sex Assigned at Date Recorded Female 01/07/2022 11:11 AM CDT documented as of this encounter Plan of Treatment Upcoming Encounters Date Type Specialty Care Team Description 06/24/2022 Clinical Support Oncology Vini Maki M.D., Ph.D. [address] [place] [phone] Hamida Ram L.G.S.W., M.S.W. 2022 Clinical Communication Admitting/Central Scheduling 07/19/2022 Appointment Radiology Vini Maki M.D., Ph.D. [address] [place] [address] [phone] 07/22/2022 Comprehensive Visit Gastroenterology and Andres Mehta Hepatology Sebastian Lozada [address] [place] [address] [phone] 07/23/2022 Lab Laboratory Medicine Vini Maki M.D., Ph.D. [address] [place] [phone] 07/23/2022 Office Visit Oncology Rebeca Valle P.A.-C., M.S. [address] [place] [address] documented as of this encounter Procedures Procedure [...] 8 mm in thickness. Interval decrease in febr-ls-splrz midli ne shift with improved patency of [...] 8 mm in thickness. Interval decrease in rlyk-fj-vkcek midli ne shift with improved patency of [...]
--- OUTSIDE RECORDS SUMMARY | 2022-06-19 11:41 | XMS_ITS | Encounter Summary ---
:1970 Author Organization [facility] Address [address] [place] [address] Care Team Providers Name Role Phone Unavailable Primary Care Provider Unavailable Reason for Visit Reason Comments Med Refill temozolomide, ondansetron Encounter Details Date Type Department Care Team Description 01/31/2022 Clinical Communication Department of Latanya Michael Med Refill Oncology in D, R.N., O.C.N. (temozolomide, [place], [facility] [address] [facility] ondansetron ) [place], [place] [address] [facility] [phone] [place] [address] Social History Tobacco Use Types Packs/Day Years [...] or relatives? How often do you attend gnosticism or More than 4 times per year 01/07/2022 jew services? Do you belong to any clubs or No 01/07/2022 organizations such as gnosticism groups, unions, fraternal or athletic groups, or [...] have completed or the highest Maulik, MEd, SECURITY CLERK, MOISE) degree you have received? Sex [...] 11:12 AM CDT Received a call from [facility] asking that the temozolomide 140mg, 20mg and the ondansetron 8mg be redirected to [facility] [address] documented in this encounter Plan of Treatment Upcoming Encounters Date Type Specialty Care Team Description 06/24/2022 Clinical Support Oncology Vini Maki M.D., Ph.D. [address] [place] [phone] Hamida Ram L.G.S.W., M.S.W. 2022 Clinical Communication Admitting/Central Scheduling 07/19/2022 Appointment Radiology Vini Maki M.D., Ph.D. [address] [place] [address] [phone] 07/22/2022 Comprehensive Visit Gastroenterology and Andres Mehta Hepatology [place] Lozada [address] [place] [phone] 07/23/2022 Lab Laboratory Medicine Vini Maki M.D., Ph.D. [address] [place] [phone] 07/23/2022 Office Visit Oncology Rebeca Valle P.A.-C., M.S. [address] [place] [phone] documented as of this encounter Visit Diagnoses Diagnosis Malignant Neoplasm Of Brain (HCC) documented in this encounter
--- OUTSIDE RECORDS SUMMARY | 2022-06-19 11:41 | XMS_ITS | Encounter Summary ---
:1970 Author Organization [facility] Address [address] [place] [address] Care Team Providers Name Role Phone Unavailable Primary Care Provider Unavailable Encounter Details Date Type Department Care Team Description 02/02/2022 Clinical Communication Department of Oncology Jonathan West in Rusty Turner M.D. [address] [place] [phone] Social History Tobacco Use Types Packs/Day Years [...] have completed or the highest Maulik, MEd, PEARL CUTTER, MOISE) degree you have received? Sex Assigned at Date Recorded Female 01/07/2022 11:11 AM CDT documented as of this encounter Miscellaneous Notes Telephone Encounter - Jonathan Amaya M.D. 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 They indicated that they had received the [...] Support Oncology Vini Maki M.D., Ph.D. 200 [place] [phone] Hamida Ram L.G.S.W., M.S.W. 2022 Clinical Communication Admitting/Central Scheduling 07/19/2022 Appointment Radiology Vini Maki M.D., Ph.D. [address] [place] [phone] 07/22/2022 Comprehensive Visit Gastroenterology and Andres Mehta Hepatheri Lozada M.D. [address] [place] [phone] 07/23/2022 Lab Laboratory Medicine Vini Maki M.D., Ph.D. [address] [place] [phone] 07/23/2022 Office Visit Oncology Rebeca Valle P.A.-C., M.S. [address] [place] [address] [phone] documented as of this encounter Visit Diagnoses Not on filedocumented in this encounter
--- OUTSIDE RECORDS SUMMARY | 2022-06-19 11:41 | XMS_ITS | Encounter Summary ---
:1970 Author Organization [facility] Address [address] [place] [address] Care Team Providers Name Role Phone Unavailable Primary Care Provider Unavailable Encounter Details Date Type Department Care Team Description 01/30/2022 Clinical Communication Department of Cliff Sumner, Radiation Oncology in Sebastian, M.S. [facility] [address] [facility] [address] [place] [phone] Social History Tobacco Use Types Packs/Day Years [...] have completed or the highest Maulik, MEd, CARE ASSISTANT, MOISE) degree you have received? Sex Assigned at Date Recorded Female 01/07/2022 11:11 AM CDT documented as of this encounter Miscellaneous Notes Telephone Encounter - Cliff Sumner M.D., M.S. - 01/30/2022 12:41 PM CDT Radiation Oncology 01/30/22 Mia Richardson Phone Call: I spoke to the patient [...] Clinical Support Oncology Vini Maki M.D., Ph.D. [address] [place] [phone] Hamida Ram L.G.S.W., M.S.W. 2022 Clinical Communication Admitting/Central Scheduling 07/19/2022 Appointment Radiology Vini Maki M.D., Ph.D. [address] [place] [address] [phone] 07/22/2022 Comprehensive Visit Gastroenterology and Andres Mehta Hepatheri Lozada M.D. [address] [place] [address] [phone] 07/23/2022 Lab Laboratory Medicine Vini Maki M.D., Ph.D. [address] [place] [address] [phone] 07/23/2022 Office Visit Oncology Rebeca Valle P.A.-C., M.S. [address] [place] [address] [phone] documented as of this encounter Visit Diagnoses Not on filedocumented in this encounter
--- OUTSIDE RECORDS SUMMARY | 2022-06-19 11:41 | XMS_ITS | Encounter Summary ---
:1970 Author Organization [facility] Address [address] [place] [address] Care Team Providers Name Role Phone Unavailable Primary Care Provider Unavailable Encounter Details Date Type Department Care Team Description 01/29/2022 Clinical Communication Department of Rebeca Valle , Oncology in P.A.-C., M.S. [place], [place] [address] [facility] [address] [place] [phone] Social History Tobacco Use Types Packs/Day Years [...] have completed or the highest Maulik, MEd, CHANGE ROOM ATTENDANT, MOISE) degree you have received? Sex Assigned at Date Recorded Female 01/07/2022 11:11 AM CDT documented as of this encounter Miscellaneous Notes Telephone Encounter - Angeles Gates - 01/29/2022 4:24 PM CDT Date/Time Signed: 01/29/2022 15:54 E-Prescribing Status: Receipt confirmed by pharmacy (01/29/2022 ??4:15 PM CDT) Prior authorization: Approved Called [facility] and ask them to expedite the Temozolomide as pt starts treatment . They said they will call us back if the prescription needs to be redirected. documented in this encounter Plan of Treatment Upcoming Encounters Date Type Specialty Care Team Description 06/24/2022 Clinical Support Oncology Vini Maki M.D., Ph.D. [address] [place] [phone] Hamida Ram L.G.STammy., M.S.W. 2022 Clinical Communication Admitting/Central Scheduling 07/19/2022 Appointment Radiology Vini Maki M.D., Ph.D. [address] [place] [phone] 07/22/2022 Comprehensive Visit Gastroenterology and Andres Mehta Hepatology Sebastian Lozada [address] [place] [phone] 07/23/2022 Lab Laboratory Medicine Vini Maki M.D., Ph.D. [address] [place] [address] [phone] 07/23/2022 Office Visit Oncology Rebeca Valle P.A.-C., M.S. [address] [place] [address] [phone] documented as of this encounter Visit Diagnoses Not on filedocumented in this encounter
--- OUTSIDE RECORDS SUMMARY | 2022-06-19 11:41 | XMS_ITS | Encounter Summary ---
:1970 Author Organization [facility] Address [address] [place] [address] Care Team Providers Name Role Phone Unavailable Primary Care Provider Unavailable Reason for Visit Radiation Therapy (Routine) - Closed Specialty Diagnoses / Procedures Referred By Contact Refer red To Contact Diagnoses Malignant Neoplasm Of Brain (HCC) Stephanie Gleason M.D. [facility] Radiation Oncology Procedures Prior Auth Rad Tx DC IMRT COMPLEX [address] [place], [place] [phone] [place] [address] Referral ID Status Reason Start Date Expiration Date Visits Requ ested Visits Authorized [id number] Closed 01/31/2022 12/31/2022 30 30 Encounter Details Date Type Department Care Team Description 01/31/2022 Hospital Encounter Department of Radiation Jacquelyn Gleason I., Oncology in [place] [address] [facility] [address] [place] [phone] Social History Tobacco Use Types Packs/Day Years [...] have completed or the highest Maulik, MEd, INTEGRATED CIRCUITS INSPECTOR, MOISE) degree you have received? Sex [...] Oncology Vini Maki M.D., Ph.D. [address] [place] [phone] Hamida Ram L.G.S.W., M.S.W. 2022 Clinical Communication Admitting/Central Scheduling 07/19/2022 Appointment Radiology Vini Maki M.D., Ph.D. [address] [place] [phone] 07/22/2022 Comprehensive Visit Gastroenterology and Andres Mehta Hepatology Sebastian Lozada [address] [place] [address] [phone] 07/23/2022 Lab Laboratory Medicine Vini Maki M.D., Ph.D. [address] [place] [address] [phone] 07/23/2022 Office Visit Oncology Rebeca Valle P.A.-C., M.S. [address] [place] [phone] documented as of this encounter Visit Diagnoses Not on filedocumented in this encounter
--- OUTSIDE RECORDS SUMMARY | 2022-06-19 11:41 | XMS_ITS | Encounter Summary ---
:1970 Author Organization [facility] Address [address] [place] [address] Care Team Providers Name Role Phone Unavailable Primary Care Provider Unavailable Encounter Details Date Type Department Care Team Description 01/29/2022 Orders Only Department of Rebeca Valle Malignan t Neoplasm Of Oncology in P.A.-C., M.S. Brain (HCC) (Primary [place], [place] [address] [facility] Dx) [address] [place] [phone] Social History Tobacco Use Types Packs/Day Years [...] have completed or the highest Maulik, MEd, TELEPHONE DIAPHRAGM ASSEMBLER, MOISE) degree you have received? Sex Assigned at Date Recorded Female 01/07/2022 11:11 AM CDT documented as of this encounter Plan of Treatment Upcoming Encounters Date Type Specialty Care Team Description 06/24/2022 Clinical Support Oncology Vini Maki M.D., Ph.D. [address] [place] [address] [phone] Hamida Ram L.G.S.W., M.S.W. 2022 Clinical Communication Admitting/Central Scheduling 07/19/2022 Appointment Radiology Vini Maki M.D., Ph.D. [address] [place] [address] [phone] 07/22/2022 Comprehensive Visit Gastroenterology and Andres Mehta Hepatheri Lozada M.D. [address] [place] [address] [phone] 07/23/2022 Lab Laboratory Medicine Vini Maki M.D., Ph.D. [address] [place] [address] [phone] 07/23/2022 Office Visit Oncology Rebeca Valle P.A.-C., M.S. [address] [place] [address] documented as of this encounter Visit Diagnoses Diagnosis Malignant Neoplasm Of Brain (HCC) - Prim uyen documented in this encounter
--- OUTSIDE RECORDS SUMMARY | 2022-06-19 11:41 | XMS_ITS | Encounter Summary ---
:1970 Author Organization [facility] Address [address] [place] [address] Care Team Providers Name Role Phone Unavailable Primary Care Provider Unavailable Reason for Referral Radiation Therapy (Routine) - Pending Review Specialty Diagnoses / Procedures Referred By Contact Refer red To Contact Diagnoses Malignant Neoplasm Of Brain (HCC) Stephanie Gleason M.D. [facility] Radiation Oncology Procedures Management Visit [address] [facility] [place], [place] [phone] [place] [phone] Referral ID Status Reason Start Date Expiration Date Visits V isits Requested Authorized [id number] Pending 12/31/2021 12/31/2022 10 10 Review Reason for Visit Radiation Therapy (Routine) - Pending Review Specialty Diagnoses / Procedures Referred By Contact Refer red To Contact Diagnoses Malignant Neoplasm Of Brain (HCC) Stephanie Gleason M.D. [facility] Radiation Oncology Procedures Management Visit [address] [facility] [place] [phone] [place] [place] [address] Referral ID Status Reason Start Date Expiration Date Visits V isits Requested Authorized [id number] Pending 12/31/2021 12/31/2022 10 10 Review Encounter Details Date Type Department Care Team Description 02/05/2022 - Hospital Encounter Department of Victorino, Stephanie shi Neoplasm 02/06/2022 Radiation Oncology Sebastian Marcelino Of Brain ([facility]) in [address] [facility] [address] [place], [place] [phone] [address] (Work) [phone] Social History Tobacco Use Types Packs/Day Years [...] or the highest Maulik, MEd, DIRECTOR OF PUBLIC WORKS, MOISE) degree you have received? Sex Assigned [...] days. documented as of this encounter Progress Notes Stephanie Gleason M.D. - 02/05/2022 4:15 PM CDT ATTESTATION [...] (cGy) First Treatment Last Treatment Elapsed Days [id number] [phone] 01/31/2022 02/04/2022 4 Course Summary 01/31/2022 02/04/2022 [...] Support Oncology Vini Maki M.D., Ph.D. [address] [place] [address] [phone] Hamida Ram L.G.S.W., M.S.W. 2022 Clinical Communication Admitting/Central Scheduling 07/19/2022 Appointment Radiology Vini Maki M.D., Ph.D. [address] [place] [phone] 07/22/2022 Comprehensive Visit Gastroenterology and Andres Mehta Hepatheri Lozada M.D. [address] [place] [phone] 07/23/2022 Lab Laboratory Medicine Vini Maki M.D., Ph.D. [address] [place] [phone] 07/23/2022 Office Visit Oncology Rebeca Valle P.A.-C., M.S. [address] [place] [phone] Scheduled Orders Name Type Priority Associated Diagnoses Order S chedule Management Visit Radiation Oncology Routine Malignant Neoplasm Once for 1 Of Brain (HCC) Occurrences s tarting 02/05/2022 unti l 02/05/2022 documented as of this encounter Visit Diagnoses Diagnosis Malignant Neoplasm Of Brain (HCC) documented in this encounter
--- OUTSIDE RECORDS SUMMARY | 2022-06-19 11:41 | XMS_ITS | Encounter Summary ---
:1970 Author Organization [facility] Address [address] [place] [address] Care Team Providers Name Role Phone Unavailable Primary Care Provider Unavailable Reason for Visit Radiation Therapy (Routine) - Closed Specialty Diagnoses / Procedures Referred By Contact Refer red To Contact Diagnoses Malignant Neoplasm Of Brain (HCC) Stephanie Gleason M.D. [facility] Radiation Oncology Procedures Prior Auth Rad Tx [place] IMRT COMPLEX [address] [place], [place] [phone] 1821 [facility] [place] [address] Referral ID Status Reason Start Date Expiration Date Visits Requ ested Visits Authorized [id number] Closed 01/31/2022 12/31/2022 30 30 Encounter Details Date Type Department Care Team Description 02/05/2022 Hospital Encounter Department of Radiation Jacquelyn Gleason I., Oncology in [place] [address] [facility] [address] [place] [phone] Social History Tobacco Use Types Packs/Day Years [...] 01/07/2022 organizations such as faith groups, unions, fraternal or athletic groups, or [...] completed or the highest Maulik, MEd, COOK MAYONNAISE, MOISE) degree you have received? Sex Assigned [...] Oncology Vini Maki M.D., Ph.D. [address] [place] [phone] Hamida Ram L.G.S.W., M.S.W. 2022 Clinical Communication Admitting/Central Scheduling 07/19/2022 Appointment Radiology Vini Maki M.D., Ph.D. [address] [place] [phone] 07/22/2022 Comprehensive Visit Gastroenterology and Andres Mehta Hepatology Sebastian Lozada [address] [place] [address] [phone] 07/23/2022 Lab Laboratory Medicine Vini Maki M.D., Ph.D. [address] [place] [phone] 07/23/2022 Office Visit Oncology Rebeca Valle P.A.-C., M.S. [address] [place] [phone] documented as of this encounter Visit Diagnoses Not on filedocumented in this encounter
--- OUTSIDE RECORDS SUMMARY | 2022-06-19 11:41 | XMS_ITS | Encounter Summary ---
:1970 Author Organization [facility] Address [address] [place] [address] Care Team Providers Name Role Phone Unavailable Primary Care Provider Unavailable Reason for Visit Reason Comments [facility]: CK Encounter Details Date Type Department Care Team Description 02/01/2022 Clinical Communication Department of Sejal Barnes [facility]: [facility] in S, M.S., [place], [place] [address] [place] [address] [address] [place] [phone] Social History Tobacco Use Types Packs/Day Years [...] have completed or the highest Maulik, MEd, STUDIO CAMERA OPERATOR, MOISE) degree you have received? Sex Assigned at Date Recorded Female 01/07/2022 11:11 AM CDT documented as of this encounter Miscellaneous Notes Telephone Encounter - Laurie Warner - 02/27/2022 10:42 AM CDT Results received in dept pool. Forwarded to the provider for review. Positive, sent to Sejal Telephone Encounter - Kevan Borges - 02/22/2022 11:10 AM CDT Sample received by [employer] on 02/06, testing in progress Telephone Encounter - Laurie Warner - 02/01/2022 3:12 PM CDT Date: 02/01/22 Lab: Sweetie Test: Sweetie Single Gene Testing Sample: Lab to mail a kit to the pt and Mail Order has been scheduled and checked in. Provider: Sejal Resendiz [facility] Insurance: BRCA 1/2 only: [place], BCBS [place], CIGNA, Humana; & [employer] documented in this encounter Plan of Treatment Upcoming Encounters Date Type Specialty Care Team Description 06/24/2022 Clinical Support Oncology Vini Maki M.D., Ph.D. [address] [place] [phone] Hamida Ram L.G.S.W., M.S.W. 2022 Clinical Communication Admitting/Central Scheduling 07/19/2022 Appointment Radiology Vini Maki M.D., Ph.D. [address] [place] [phone] 07/22/2022 Comprehensive Visit Gastroenterology and Andres Mehta Hepatology Sebastian Lozada [address] [place] [phone] 07/23/2022 Lab Laboratory Medicine Vini Maki M.D., Ph.D. [address] [place] [phone] 07/23/2022 Office Visit Oncology Rebeca Valle P.A.-C., M.S. [address] [place] [phone] documented as of this encounter Visit Diagnoses Not on filedocumented in this encounter
--- OUTSIDE RECORDS SUMMARY | 2022-06-19 11:41 | XMS_ITS | Encounter Summary ---
:1970 Author Organization [facility] Address [address] [place] [address] Care Team Providers Name Role Phone Unavailable Primary Care Provider Unavailable Reason for Referral Outpatient (Routine) - Authorized Specialty Diagnoses / Procedures Referred By Contact Refer red To Contact Palliative Medicine Diagnoses Tumor Brain (HCC) Rebeca Valle [place] Kobi, M.S. 200 [place] [address] Referral ID Status Reason Start Date Expiration Date Visits V isits Requested Authorized [id number] Authorized 01/30/2022 01/30/2023 1 1 utpatient (Routine) - Closed Specialty Diagnoses / Procedures Referred By Contact Refer red To Contact Social Work Diagnoses Tumor Brain (HCC) Rebeca Valle [place] Kobi, M.S. [address] [place] [phone] Referral ID Status Reason Start Date Expiration Date Visits Requ ested Visits Authorized [id number] Closed 01/30/2022 01/30/2023 1 1 Reason for Visit Reason Comments Lab Order Encounter Details Date Type Department Care Team Description 01/30/2022 Clinical Communication Department of Sa miquel Valle P.A.-C., M.S. [address] [place] [phone] Lab Order Oncology in Arya Olivia De La Cruz D.N.P., M.A., R.N., HNB- [address] [place] [phone] [place], [place] [address] [place] [phone] Social History Tobacco Use Types Packs/Day Years [...] have completed or the highest Maulik, MEd, PREPARATION SUPERVISOR FREEZING, MOISE) degree you have received? Sex Assigned at Date Recorded Female 01/07/2022 11:11 AM CDT documented as of this encounter Miscellaneous Notes Telephone Encounter - Margaret Carnes - 01/30/2022 3:03 PM CDT Order faxed at 3:03pm on 01-30-2022 to: [facility] Address: [address] [place] [address] Thank you, Margaret RST ONC [facility] AA POD 1 documented in this encounter Plan of Treatment Upcoming Encounters Date Type Specialty Care Team Description 06/24/2022 Clinical Support Oncology Vini Maki M.D., Ph.D. [address] [place] [phone] Hamida Ram L.G.S.Yasmeen., M.S.W. 2022 Clinical Communication Admitting/Central Scheduling 07/19/2022 Appointment Radiology Vini Maki M.D., Ph.D. [address] [place] [phone] 07/22/2022 Comprehensive Visit Gastroenterology and Andres Mehta Hepatheri Lozada M.D. [address] [place] [phone] 07/23/2022 Lab Laboratory Medicine Vini Maki M.D., Ph.D. [address] [place] [phone] 07/23/2022 Office Visit Oncology Rebeca Valle P.A.-C., M.S. [address] [place] [address] Scheduled Referrals Name Type Priority Associated Order [...]
--- OUTSIDE RECORDS SUMMARY | 2022-06-19 11:41 | XMS_ITS | Encounter Summary ---
:1970 Author Organization [facility] Address [address] [place] [address] Care Team Providers Name Role Phone Unavailable Primary Care Provider Unavailable Encounter Details Date Type Department Care Team Description 01/30/2022 Orders Only Pharmacy Prior Auth Kp [facility] [phone] Social History Tobacco Use Types Packs/Day Years [...] have completed or the highest Maulik, MEd, CUSTODIAN MANAGER, MOISE) degree you have received? Sex Assigned at Date Recorded Female 01/07/2022 11:11 AM CDT documented as of this encounter Plan of Treatment Upcoming Encounters Date Type Specialty Care Team Description 06/24/2022 Clinical Support Oncology Vini Maki M.D., Ph.D. [address] [place] [phone] Hamida Ram L.G.S.W., M.S.W. 2022 Clinical Communication Admitting/Central Scheduling 07/19/2022 Appointment Radiology Vini Maki M.D., Ph.D. [address] [place] [phone] 07/22/2022 Comprehensive Visit Gastroenterology and Andres Mehta Hepatheri Lozada M.D. [address] [place] [phone] 07/23/2022 Lab Laboratory Medicine Vini Maki M.D., Ph.D. [address] [place] [address] [phone] 07/23/2022 Office Visit Oncology Rebeca Valle P.A.-C., M.S. [address] [place] [phone] documented as of this encounter Visit Diagnoses Not on filedocumented in this encounter
--- OUTSIDE RECORDS SUMMARY | 2022-06-19 11:41 | XMS_ITS | Encounter Summary ---
:1970 Author Organization [facility] Address [address] [place] [address] Care Team Providers Name Role Phone Unavailable Primary Care Provider Unavailable Encounter Details Date Type Department Care Team Description 02/01/2022 Hospital Encounter Department of Sanya Mehta Neoplasm Of Brain (HCC); Laboratory Medicine Sebastian Lozada Family History Carrier Genetic Disease and Pathology, [address] [place] [address] in [place], [place] [phone] [place] [address] [place], [place] (Work) [phone] Social History Tobacco Use [...] have completed or the highest Maulik, MEd, CREATIVE SERVICES DESIGNER, MOISE) degree you have received? Sex [...] Result Encounter Note - Sejal Resendiz M.S., [facility] - 03/08/2022 2:43 PM CDT Addendum created [...] Multi-Cancer + Nervous system/brain cancer panel from [facility]. IMPRESSION/REPORT/PLAN RESULTS I spoke with Ms. Cedillo today regarding her genetic test results. 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 This variant had been previously identified in [...] recommendations, such as those made by the [place] [employer], do remain appropriate. These screening recommendations may change if there are changes to the patient's personal and/or family history. Medical management guidelines for CHEK2 will likely change management time. We recommend that patients contact our [...] recommendations, such as those made by the [place] [employer], do remain appropriate. RISKS TO RELATIVES [...] area, family members can visit the website [email or web address]. We will also provide a family letter in this regard. RESOURCES The organization [employer] (Facing Our Risk for Cancer [employer]ow[employer]) has the mission of improving the livesof individuals and families affected by hereditary cancer. The website for this organization is: www.facingourbenchee.Groupsite. PLAN Ms. Cedillo will be referred to [...] and understanding. The patient's questions were answered. Electronically signed by Sejal Resendiz M.S., [facility] at 03/08/2022 2:43 PM CDT documented in this encounter Plan of Treatment Upcoming Encounters Date Type Specialty Care Team Description 06/24/2022 Clinical Support Oncology Vini Maki M.D., Ph.D. [address] [place] [address] [phone] Hamida Ram L.G.S.W., M.S.W. 2022 Clinical Communication Admitting/Central Scheduling 07/19/2022 Appointment Radiology Vini Maki M.D., Ph.D. [address] [place] [phone] 07/22/2022 Comprehensive Visit Gastroenterology and Andres Mehta Hepatheri Lozada M.D. [address] [place] [phone] 07/23/2022 Lab Laboratory Medicine Vini Maki M.D., Ph.D. [address] [place] [phone] 07/23/2022 Office Visit Oncology Rebeca Valle P.A.-C., M.S. [address] [place] [phone] Pending Results Name Type Priority Associated Diagnoses Date/Ti ut [id number] [facility] Lab Routine Malignant Neoplasm Of 02/05/2022 12:00 AM Single Gene Testing - Brain (HCC ) CDT Miscellaneous Test Family History Carrier Genetic Disease documented as of this encounter Procedures Procedure Name Priority Date/Time Associated Comments Diagnosis [facility]. [facility] Routine 02/05/2022 12:00 Results fo r [employer] AM CDT procedure are i n the results section. [facility] MML REFERRAL TEST Routine 02/05/2022 12:00 R esults for this 1 AM CDT procedure are i n the results section. MISCELLANEOUS SENT OUT Routine 02/05/2022 12:00 Malignant Neop lasm LAB TEST AM CDT Of Brain (HCC) Family History Carrier Genetic Disease documented in this encounter Results [facility] MML Referral Test 1 (02/05/2022 12:00 AM CDT) athologist Signature Test Name [employer] 02/28/2022 [facility] Custom Panel 12:20 PM CDT Result SEE COMMENT 02/28/2022 [facility] 1:57 PM CDT Comment: For final report, select Lab-Send Out L ab Results hyperlink below. Test Performed By: [facility] [address] [place] [phone] Specimen (Source) Anatomical Collection Method Collection Time Re ceived Time Location / / Volume Laterality Varies 02/05/2022 02/28/2022 12:2 0 PM CDT Narrative This result has an attachment that is no t available. Sanya Mehta M.D. LAB [facility] ORDERABLES Performing Organization Address City/State/ZIP Code Phon e Number [facility] REFERRAL LAB [facility]. [facility] (02/05/2022 12:00 AM CDT) athologist Signature Test Name [facility] 02/26/2022 [facility] single gene 1:54 PM CDT testing Result SEE COMMENT 02/26/2022 INV 2:55 PM CDT Comment: For final report, select Lab-Send Out L ab Results hyperlink below. Specimen (Source) Anatomical Collection Method Collection Time Re ceived Time Location / / Volume Laterality Varies 02/05/2022 02/26/2022 1:54 PM CDT Narrative This result has an attachment that is no t available. Sanya Mehta M.D. LAB MISC ORDERABLES Performing Organization Address City/State/ZIP Code Phon e Number [facility] [address] [place] [phone] [employer] [address] [phone] documented in this encounter Visit Diagnoses Diagnosis Malignant Neoplasm Of Brain (HCC) Family History Carrier Genetic Disease documented in this encounter
--- OUTSIDE RECORDS SUMMARY | 2022-06-19 11:41 | XMS_ITS | Encounter Summary ---
:1970 Author Organization [facility] Address [address] [place] [address] Care Team Providers Name Role Phone Unavailable Primary Care Provider Unavailable Reason for Visit Reason Comments Appointment Pre-visit Testing Orders Encounter Details Date Type Department Care Team Description 01/31/2022 Clinical Department of Kip Appointment; Communication Ophthalmology in Chas Ferro M.D. Pre-visit Testing Ashkan Mcneil a [address] [facility] Orders [address] [place], [place] FRANCIA GARDUNOYARED [phone] Social History Tobacco Use Types Packs/Day Years [...] completed or the highest Maulik, MEd, BOILER BLOWER, MOISE) degree you have received? Sex Assigned [...] Clinical Support Oncology Vini Maki M.D., Ph.D. [address] [place] [phone] Hamida Ram L.G.S.W., M.S.W. 2022 Clinical Communication Admitting/Central Scheduling 07/19/2022 Appointment Radiology Vini Maki M.D., Ph.D. [address] [place] [phone] 07/22/2022 Comprehensive Visit Gastroenterology and Andres Mehta Hepatology Sebastian Lozada [address] [place] [phone] 07/23/2022 Lab Laboratory Medicine Vini Maki M.D., Ph.D. [address] [place] [phone] 07/23/2022 Office Visit Oncology Rebeca Valle P.A.-C., M.S. [address] [place] [phone] documented as of this encounter Results Optical [...]
--- OUTSIDE RECORDS SUMMARY | 2022-06-19 11:41 | XMS_ITS | Encounter Summary ---
:1970 Author Organization [facility] Address [address] [place] [address] Care Team Providers Name Role Phone Unavailable Primary Care Provider Unavailable Reason for Visit Radiation Therapy (Routine) - Closed Specialty Diagnoses / Procedures Referred By Contact Refer red To Contact Diagnoses Malignant Neoplasm Of Brain (HCC) Stephanie Gleason M.D. [facility] Radiation Oncology Procedures Prior Auth Rad Tx [place] IMRT COMPLEX [address] [place], [place] [phone] [facility] [place] [address] Referral ID Status Reason Start Date Expiration Date Visits Requ ested Visits Authorized [id number] Closed 01/31/2022 12/31/2022 30 30 Encounter Details Date Type Department Care Team Description 02/01/2022 Hospital Encounter Department of Radiation Jacquelyn Gleason I., Oncology in [place] [address] [facility] [address]21 [place] [phone] Social History Tobacco Use Types Packs/Day Years [...] More than 4 times per year 01/07/2022 christianity services? Do you belong to any clubs [...] have completed or the highest Maulik, MEd, THIOKOL OPERATOR, MOISE) degree you have received? Sex [...] Support Oncology Vini Maki M.D., Ph.D. [address] [place] [phone] Hamida Ram L.G.S.W., M.S.W. 2022 Clinical Communication Admitting/Central Scheduling 07/19/2022 Appointment Radiology Vini Maki M.D., Ph.D. [address] [place] [phone] 07/22/2022 Comprehensive Visit Gastroenterology and Andres Mehta Hepatology Sebastian Lozada [address] [place] [address] [phone] 07/23/2022 Lab Laboratory Medicine Vini Maki M.D., Ph.D. [address] [place] [address] [phone] 07/23/2022 Office Visit Oncology Rebeca Valle P.A.-C., M.S. [address] [place] [phone] documented as of this encounter Visit Diagnoses Not on filedocumented in this encounter
--- OUTSIDE RECORDS SUMMARY | 2022-06-19 11:41 | XMS_ITS | Encounter Summary ---
:1970 Author Organization [facility] Address [address] [place] [address] Care Team Providers Name Role Phone Unavailable Primary Care Provider Unavailable Reason for Visit Radiation Therapy (Routine) - Closed Specialty Diagnoses / Procedures Referred By Contact Refer red To Contact Diagnoses Malignant Neoplasm Of Brain (HCC) Stephanie Gleason M.D. [facility] Radiation Oncology Procedures Prior Auth Rad Tx [place] IMRT COMPLEX [address] [place], [place] [phone] [place] [address] Referral ID Status Reason Start Date Expiration Date Visits Requ ested Visits Authorized [id number] Closed 01/31/2022 12/31/2022 30 30 Encounter Details Date Type Department Care Team Description 02/07/2022 Hospital Encounter Department of Radiation Jacquelyn Gleason I., Oncology in [place] [address] [place] [address] [place] [phone] Social History Tobacco Use Types Packs/Day Years [...] have completed or the highest Maulik, MEd, NATURAL FOODS CLERK, MOISE) degree you have received? Sex [...] Oncology Vini Maki M.D., Ph.D. [address] [place] [phone] Hamida Ram L.G.S.W., M.S.W. 2022 Clinical Communication Admitting/Central Scheduling 07/19/2022 Appointment Radiology Vini Maki M.D., Ph.D. [address] [place] [phone] 07/22/2022 Comprehensive Visit Gastroenterology and Andres Mehta Hepatheri Lozada M.D. [address] [place] [phone] 07/23/2022 Lab Laboratory Medicine Vini Maki M.D., Ph.D. [address] [place] [phone] 07/23/2022 Office Visit Oncology Rebeca Valle P.A.-C., M.S. [address] [place] [address] [phone] documented as of this encounter Visit Diagnoses Not on filedocumented in this encounter
--- OUTSIDE RECORDS SUMMARY | 2022-06-19 11:41 | XMS_ITS | Encounter Summary ---
:1970 Author Organization [facility] Address [address] [place] [address] Care Team Providers Name Role Phone Unavailable Primary Care Provider Unavailable Reason for Referral Outpatient (Routine) - Closed Specialty Diagnoses / Procedures Referred By Contact Refer red To Contact Oncology Farzana Allen M. D. [address] [phone] Referral ID Status Reason Start Date Expiration Date Visits Requ ested Visits Authorized [id number] Closed 02/07/2022 02/07/2023 1 1 Outpatient (Routine) - Closed Specialty Diagnoses / Procedures Referred By Contact Refer red To Contact Nutrition Diagnoses Astrocytoma (HCC) Farzana Allen M.D. [address] [phone] Referral ID Status Reason Start Date Expiration Date Visits Requ ested Visits Authorized [id number] Closed 02/07/2022 02/07/2023 1 1 Reason for Visit Outpatient (Routine) - Closed Specialty Diagnoses / Procedures Referred By Contact Refer red To Contact Medical Oncology / Diagnoses Astrocytoma (HCC) Karthikeyan Cedeno M.D. [facility] Oncology [address] [place] [phone] Referral ID Status Reason Start Date Expiration Date Visits Requ ested Visits Authorized [id number] Closed 01/03/2022 01/03/2023 1 1 Encounter Details Date Type Department Care Team Description 02/07/2022 Comprehensive Visit Department of Farzana Allen (HCC) Oncology in Sebastian Ferro [place], [place] [address] [email or web address] 200 [place] [phone] [phone] Social History Tobacco Use Types Packs/Day Years [...] have completed or the highest Maulik, MEd, HORN PLAYER, MOISE) degree you have received? Sex Assigned at Date Recorded Female 01/07/2022 11:11 AM CDT documented as of this encounter Consult Notes Farzana Allen M.D. - 02/07/2022 1:20 PM CDT Images from the original note were not included. Mia Richardson is seen in the [facility] Integrative Oncology clinic for consultation requested Karthikeyan Hamilton M.D. [address] [place] [address] Primary Oncologist: No care automobile washer steam to display PCP: No primary care provider [...] sense. The patient was taken to the [facility] with altered mental status. The [...] and Keppra and transferred to [facility]. 11/30/2021 Imaging MRI of the [...] mass, biopsy - Astrocytoma, at least SUPERVISOR COOLER SERVICE WHO grade 3. See comment. B. Brain, left mass, excision - Astrocytoma, at least SUPERVISOR COOLER SERVICE WHO grade 3. See comment. Final Diagnosis: [...] Dr. Shelbie Ackerman at the [facility]. Discussed that it was okay for the [...] Referral to Radiation Oncology at [facility] in [place]. 01/10/2022 Surgery and Procedures Left temporoparietal stereotactic craniotomy with tumor resection, speech mapping with Dr. Ivey. PATHOLOGY: A-D. 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 See comment. 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 The biopsy specimen lacked microvascular proliferation and tumor necrosis. By immunohistochemistry, the tumor cells were negative for IDH1-R132H and showed retained ATRX expression. 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 01/10/2022 Imaging MRI of [...] Master's degree (e.g., MA, MS, Maulik, MEd, HORN PLAYER, MOISE) Occupational History ??? Not on file [...] than three times a week ??? Attends Shinto Services: More than 4 times per year [...] than three times a week ??? Attends Shinto Services: More than 4 times per year [...] dietary changes in that direction. Willrefer to frame carver spindle to help with macros/diet plan; book refs [...] mag. 8. Labs Ordered: panel ordered at [facility]. 9. Follow-Up: Return to integrative medicine clinic in 3 months/prn. 60 minutes were spent (total time) which includes FTF time as well as chart review, review of labs and other tests and communication with other providers. documented in this encounter Plan of Treatment Upcoming Encounters Date Type Specialty Care Team Description 06/24/2022 Clinical Support Oncology Vini Maki M.D., Ph.D. [address] [place] [phone] Hamida Ram L.G.S.W., M.S.W. 2022 Clinical Communication Admitting/Central Scheduling 07/19/2022 Appointment Radiology Vini Maki M.D., Ph.D. [address] [place] [phone] 07/22/2022 Comprehensive Visit Gastroenterology and Andres Mehta Hepatheri Lozada M.D. [address] [place] [phone] 07/23/2022 Lab Laboratory Medicine Vini Maki M.D., Ph.D. [address] [place] [phone] 07/23/2022 Office Visit Oncology Rebeca Valle P.A.-C., M.S. [address] [place] [address] Scheduled Referrals Name Type Priority Associated Diagnoses [...]
--- OUTSIDE RECORDS SUMMARY | 2022-06-19 11:41 | XMS_ITS | Encounter Summary ---
:1970 Author Organization [facility] Address [address] [place] [address] Care Team Providers Name Role Phone Unavailable Primary Care Provider Unavailable Reason for Visit Outpatient (Routine) - Closed Specialty Diagnoses / Procedures Referred By Contact Refer red To Contact Clinical Genomics Diagnoses Malignant Neoplasm Of Brain (HCC) [facility] [address] [place] [phone] Referral ID Status Reason Start Date Expiration Date Visits Requ ested Visits Authorized [id number] Closed 01/01/2022 01/01/2023 1 1 Encounter Details Date Type Department Care Team Description 01/31/2022 Telemedicine Department of Medical Moise Sumner M.D., M.S. [address] [place] [phone] Family History Carrier Genetic Disease ( Primary Dx); Genetics in Sejal Resendiz M.S., [facility] [address] [place] [phone] Malignant Neoplasm Of Brain (HCC) [place], [place] [address] [place] [address] [phone] Social History Tobacco Use Types Packs/Day Years [...] 01/07/2022 organizations such as caodaism groups, unions, [email or web address] or athletic groups, or school groups? How [...] completed or the highest Maulik, MEd, ELEMENTARY READING SPECIALIST, MOISE) degree you have received? Sex Assigned at Date Recorded Female 01/07/2022 11:11 AM CDT documented as of this encounter Consult Notes Sejal Resendiz M.S., [facility] - 01/31/2022 2:15 PM [...] technology by Sejal Resendiz M.S., JAMEL in [facility] to the patient in Patient's Home FAMILY HISTORY A detailed family history was obtained from the patient and a pedigree was constructed. The pedigreewill be saved as a scanned document and available for viewing under the Media tab of [email or web address]. Our risk assessment is based upon medical [...] dx 70s The patient???s maternal ancestry is Welsh, Slovenian, Beninese, Eritrean; the patient???s paternal ancestry is Eritrean, Syrian, Nigerien, Citizen Of [place]. There is no reported consanguinity or Ashkenazi Advent ancestry. IMPRESSION/REPORT/PLAN PATIENT EDUCATION We discussed that [...] + Nervous System/Brain Cancer panel, available from [facility]. Ms. Cedillo will be sent a saliva kit by the laboratory. Approximate cost, insurance coverage,and laws governing genetic discrimination were discussed. Risks, benefits, and limitations of genetic testing were discussed. The laboratory will complete insurance pre-authorization for the test and will contact her if the [id number] costs exceed $100. PERSONAL AND FAMILY SCREENING [...] recommendations, such as those made by the [place] [employer], do remain appropriate. The patient [...] Support Oncology Vini Maki M.D., Ph.D. [address] [place] [phone] Hamida Ram L.G.S.W., M.S.W. 2022 Clinical Communication Admitting/Central Scheduling 07/19/2022 Appointment Radiology Vini Maki M.D., Ph.D. [address] [place] [address] [phone] 07/22/2022 Comprehensive Visit Gastroenterology and Andres Mehta Hepatology Sebastian Lozada [address] [place] [phone] 07/23/2022 Lab Laboratory Medicine Vini Maki M.D., Ph.D. [address] [place] [phone] 07/23/2022 Office Visit Oncology Rebeca Valle P.A.-C., M.S. [address] [place] [phone] Pending Results Name Type Priority Associated Diagnoses Date/Ti wa [id number] [facility] Routine Malignant Neoplasm Of 02/05/2022 12:00 AM Single Gene Testing - Brain (HCC ) CDT Miscellaneous Test Family History Carrier Genetic Disease documented as of this encounter Visit Diagnoses Diagnosis Family History Carrier Genetic Disease - Primary Malignant Neoplasm Of Brain (HCC) documented in this encounter
--- OUTSIDE RECORDS SUMMARY | 2022-06-19 11:42 | XMS_ITS | Encounter Summary ---
:1970 Author Organization [facility] Address [address] [place] [address] Care Team Providers Name Role Phone Unavailable Primary Care Provider Unavailable Reason for Referral Radiation Therapy (Routine) - Closed Specialty Diagnoses / Procedures Referred By Contact Refer red To Contact Diagnoses Malignant Neoplasm Of Brain (HCC) Stephanie Gleason M.D. [facility] Procedures Initial Rad Onc Treatment Planning CT Simulation [address] [place] [phone] Referral ID Status Reason Start Date Expiration Date Visits Requ ested Visits Authorized [id number] Closed 12/31/2021 12/31/2022 1 1 Reason for Visit Radiation Therapy (Routine) - Closed Specialty Diagnoses / Procedures Referred By Contact Refer red To Contact Diagnoses Malignant Neoplasm Of Brain (HCC) Stephanie Gleason M.D. [facility] Procedures Initial Rad Onc Treatment Planning CT Simulation [address] [place] [address] [phone] Referral ID Status Reason Start Date Expiration Date Visits Requ ested Visits Authorized [id number] Closed 12/31/2021 12/31/2022 1 1 Encounter Details Date Type Department Care Team Description 01/28/2022 Hospital Encounter Department of Stephanie Gleason Neoplasm Radiation Oncology Sebastian Marcelino Of Brain (HCC) in [address] [facility] [phone] [place], [place] [phone] (Work) [phone] Social History Tobacco Use Types Packs/Day Years [...] have completed or the highest Maulik, MEd, EXCELSIOR MACHINE OPERATOR, MOISE) degree you have received? Sex Assigned at Date Recorded Female 01/07/2022 11:11 AM CDT documented as of this encounter Medications at Time of Discharge Medication Sig Dispensed Refills Start Date End Date acetaminophen (TYLENOL) Take 2 tablets 0 06/02/20 22 500 mg tablet (1,000 mg total) [...] planning. CT images were transferred to the Tã Em B[facility] treatment planning system, after a reference isocenter was determined and marked. Segmentation and treatment planning will take place priorto treatment delivery. Patient set up and imaging was appropriate and completed without incident. Landfill Gas Collection Operator use:No documented in this encounter Plan of Treatment Upcoming Encounters Date Type Specialty Care Team Description 06/24/2022 Clinical Support Oncology Vini Maki M.D., Ph.D. [address] [place] [phone] Hamida Ram L.G.S.W., M.S.W. 2022 Clinical Communication Admitting/Central Scheduling 07/19/2022 Appointment Radiology Vini Maki M.D., Ph.D. [address] [place] [phone] 07/22/2022 Comprehensive Visit Gastroenterology and Andres Mehta Hepatology Sebastian Lozada [address] [place] [phone] 07/23/2022 Lab Laboratory Medicine Vini Maki M.D., Ph.D. [address] [place] [phone] 07/23/2022 Office Visit Oncology Rebeca Valle P.A.-C., M.S. [address] [place] [phone] documented as of this encounter Procedures Procedure [...] Time Received Time / Laterality Volume Narrative MATHER HAWK - 01/28/2022 11:43 AM CDT Zuly Blancas R, RTT ? 01/28/2022 11:44 AM Initial Rad Onc Treatment Planning CT Si mulation Date/Time: 01/28/2022 11:43 AM Performed by: Stephanie Gleason M.D. Authorized by: Stephanie Gleason M.D. Stephanie Gleason M.D. RADIATION ONCOLOGY ORDERABLE S Performing Organization Address City/State/ZIP Code Phon e Number [facility] na documented in this encounter Visit Diagnoses Diagnosis Malignant Neoplasm Of Brain (HCC) documented in this encounter
--- OUTSIDE RECORDS SUMMARY | 2022-06-19 11:42 | XMS_ITS | Encounter Summary ---
:1970 Author Organization [facility] Address [address] [place] [address] Care Team Providers Name Role Phone Unavailable Primary Care Provider Unavailable Reason for Referral Outpatient (Routine) - Closed Specialty Diagnoses / Procedures Referred By Contact Refer red To Contact Radiation Oncology Diagnoses Malignant Neoplasm Of Brain (HCC) Norma Link [facility] Kobi M.S. 200 [place] [address] Referral ID Status Reason Start Date Expiration Date Visits Requ ested Visits Authorized [id number] Closed 01/22/2022 01/22/2023 1 1 Encounter Details Date Type Department Care Team Description 01/22/2022 Orders Only Department of Norma Link Malignant N eoplasm Of Radiation Oncology in Kobi M .S. Brain (HCC) (Primary [place], [place] 200 [facility] Dx) [address] [place] [phone] Social History Tobacco Use Types Packs/Day Years [...] 01/07/2022 organizations such as christian groups, unions, fraApplied Identity or athletic groups, or school groups? How [...] have completed or the highest Maulik, MEd, WELL DRILLER HELPER, MOISE) degree you have received? Sex [...] Support Oncology Vini Maki M.D., Ph.D. [address] [place] [phone] Hamida Ram L.G.S.W., M.S.W. 2022 Clinical Communication Admitting/Central Scheduling 07/19/2022 Appointment Radiology Vini Maki M.D., Ph.D. [address] [place] [phone] 07/22/2022 Comprehensive Visit Gastroenterology and Andres Mehta Hepatology Sebastian Lozada [address] [place] [phone] 07/23/2022 Lab Laboratory Medicine Vini Maki M.D., Ph.D. [address] [place] [phone] 07/23/2022 Office Visit Oncology Rebeca Valle P.A.-C., M.S. [address] [place] [address] [phone] Scheduled Referrals Name Type Priority Associated Diagnoses Order S [facility] Radiation Oncology Outpatient Referral Routine Malignant Neopl asm Expected: - Brain / OUTREACH DIRECTOR Of Brain (HCC) 01/22/2022 consult (clinic) (Approximat e), Expires: 04/24/2023 documented as of this encounter Visit Diagnoses Diagnosis Malignant Neoplasm Of Brain (HCC) - Prim uyen documented in this encounter
--- OUTSIDE RECORDS SUMMARY | 2022-06-19 11:42 | XMS_ITS | Encounter Summary ---
:1970 Author Organization [facility] Address [address] [place] [address] Care Team Providers Name Role Phone Unavailable Primary Care Provider Unavailable Reason for Referral Specialty Diagnoses / Procedures Referred By Contact Refer red To Contact Stacy Easley P.A.-C ., M.SSanjuanita [facility] [address] [place] [phone] Referral ID Status Reason Start Date Expiration Date Visits Requ ested Visits Authorized Outpatient (Routine) - Authorized Specialty Diagnoses / Procedures Referred By Contact Refer red To Contact Radiation Oncology Stephanie Gleason [facility] Narendra Eleazar [address] [place] [phone] Referral ID Status Reason Start Date Expiration Date Visits V isits Requested Authorized [id number] Authorized 01/22/2022 01/22/2023 10 10 Encounter Details Date Type Department Care Team Description 01/22/2022 Clinical Communication Department of Stephanie Gleason Radiation Oncology in Sebastian Marcelino [facility] [address] [facility] [address] [place] [phone] Social History Tobacco Use Types Packs/Day Years [...] have completed or the highest Maulik, MEd, SURGICAL MANAGER, MOISE) degree you have received? Sex Assigned at Date Recorded Female 01/07/2022 11:11 AM CDT documented as of this encounter Miscellaneous Notes Telephone Encounter - Alexandria Austin - 01/22/2022 8:42 AM CDT Caller: Mother - Libby Is there a valid authorization to speak with caller? Yes Primary Radiation Oncologist: Dr. Gleason Reason for call: Libby calling stating that patient had surgery in [place] on 01/[address] Ivey. She stated that per Dr. Ivey patient should have radiation three weeks after surgery. She is scheduled to see Dr. Khan in [place] Rad Onc on 01/31?? Wondering why its in [place] and not in [place]? I suggested calling Dr. Ivey' office to [...] Support Oncology Vini Maki M.D., Ph.D. [address] [place] [phone] Hamida Ram L.G.S.W., M.S.W. 2022 Clinical Communication Admitting/Central Scheduling 07/19/2022 Appointment Radiology Vini Maki M.D., Ph.D. [address] [place] [address] [phone] 07/22/2022 Comprehensive Visit Gastroenterology and Andres Mehta Hepatology Sebastian Lozada [address] [place] [phone] 07/23/2022 Lab Laboratory Medicine Vini Maki M.D., Ph.D. [address] [place] [phone] 07/23/2022 Office Visit Oncology Rebeca Valle P.A.-C., M.S. [address] [place] [phone] Scheduled Referrals Name Type Priority Associated Order [...]
--- OUTSIDE RECORDS SUMMARY | 2022-06-19 11:42 | XMS_ITS | Encounter Summary ---
:1970 Author Organization [facility] Address [address] [place] [address] Care Team Providers Name Role Phone Unavailable Primary Care Provider Unavailable Encounter Details Date Type Department Care Team Description 01/22/2022 Clinical Communication Department of Cliff Sumner, Radiation Oncology in [place], M.S. [facility] [address] [facility] [address] [place] [phone] Social History Tobacco Use Types Packs/Day Years [...] or relatives? How often do you attend buddhism or More than 4 times per year 01/07/2022 zoroastrianism services? Do you belong to any clubs or No 01/07/2022 organizations such as buddhism groups, unions, fraternal or athletic groups, or [...] have completed or the highest Maulik, MEd, CLINICAL RESEARCH ASSISTANT, MOISE) degree you have received? Sex Assigned at Date Recorded Female 01/07/2022 11:11 AM CDT documented as of this encounter Miscellaneous Notes Telephone Encounter - Cliff Sumner M.D., M.S. - 01/22/2022 1:13 PM CDT Radiation Oncology 01/22/22 Mia Richardson Phone Call: I spoke to the patient's mother on the phone today. I updated her that we will see her in [facility] 01/28 for radiation follow-up with CT simulation and MRI at [facility]. Cliff Sumner M.D., M.S. documented in this encounter Plan of Treatment Upcoming Encounters Date Type Specialty Care Team Description 06/24/2022 Clinical Support Oncology Vini Maki M.D., Ph.D. [address] [place] [phone] Hamida Ram L.G.S.W., M.S.W. 2022 Clinical Communication Admitting/Central Scheduling 07/19/2022 Appointment Radiology Vini Maki M.D., Ph.D. [address] [place] [phone] 07/22/2022 Comprehensive Visit Gastroenterology and Andres Mehta Hepatology Sebastian Lozada [address] [place] [phone] 07/23/2022 Lab Laboratory Medicine Vini Maki M.D., Ph.D. [address] [place] [phone] 07/23/2022 Office Visit Oncology Rebeca Valle P.A.-C., M.S. [address] [place] [address] [phone] documented as of this encounter Visit Diagnoses Not on filedocumented in this encounter
--- OUTSIDE RECORDS SUMMARY | 2022-06-19 11:42 | XMS_ITS | Encounter Summary ---
:1970 Author Organization [facility] Address [address] [place] [address] Care Team Providers Name Role Phone Unavailable Primary Care Provider Unavailable Reason for Visit Reason Comments Communication Encounter Details Date Type Department Care Team Description 01/22/2022 Clinical Communication Department of Charles Ivey, Communication Neurologic Surgery Sebastian, Ph.D. in [address] [place] [phone] [place], [place] [phone] (Work) [phone] Social History Tobacco Use Types Packs/Day Years [...] or relatives? How often do you attend latter day or More than 4 times per year 01/07/2022 christian services? Do you belong to any clubs or No 01/07/2022 organizations such as latter day groups, unions, fraternal or athletic groups, or [...] completed or the highest Maulik, MEd, DIRECTOR EHS, MOISE) degree you have received? Sex Assigned at Date Recorded Female 01/07/2022 11:11 AM CDT documented as of this encounter Miscellaneous Notes Telephone Encounter - Marsha Larry, R.N. - 01/22/2022 2:49 PM CDT Patient has been rescheduled and to see radiation oncology in [place] on 01/28 and has been notified. Telephone [...] Support Oncology Vini Maki M.D., Ph.D. [address] [place] [phone] Hamida Ram L.G.S.W., M.S.W. 2022 Clinical Communication Admitting/Central Scheduling 07/19/2022 Appointment Radiology Vini Maki M.D., Ph.D. [address] [place] [phone] 07/22/2022 Comprehensive Visit Gastroenterology and Andres Mehta Hepatology Sebastian Lozada [address] [place] [phone] 07/23/2022 Lab Laboratory Medicine Vini Maki M.D., Ph.D. [address] [place] [phone] 07/23/2022 Office Visit Oncology Rebeca Valle P.A.-C., M.S. [address] [place] [phone] documented as of this encounter Visit Diagnoses Not on filedocumented in this encounter
--- OUTSIDE RECORDS SUMMARY | 2022-06-19 11:42 | XMS_ITS | Encounter Summary ---
:1970 Author Organization [facility] Address [address] [place] [phone] Care Team Providers Name Role Phone Unavailable Primary Care Provider Unavailable Reason for Referral Specialty Diagnoses / Procedures Referred By Contact Refer red To Contact Karthikeyan Cedeno M.D. [facility] [address] [place] [phone] Referral ID Status Reason Start Date Expiration Date Visits Requ ested Visits Authorized Reason for Visit Reason Comments Treatment Questions/Concerns Encounter Details Date Type Department Care Team Description 01/28/2022 Clinical Communication Department of Karthikeyan Cedeno Neurology lucien Smiley M.D. Questions/Concerns [address] [place] [phone] [place], [place] [phone] (Work) [phone] Social History Tobacco Use Types Packs/Day Years [...] No 01/07/2022 organizations such as protestant groups, [employer], [employer] or athletic groups, or school groups? How [...] or the highest Maulik, MEd, PROCESS IMPROVEMENT ANALYST, MOISE) degree you have received? Sex [...] for review. Addendum Note - Olivia Lundy D.N.P., M.A., R.N., HNB-BC - 01/29/2022 4:05 PM CDT Addended by: OLIVIA LUNDY on: 01/29/2022 04:05 PM Modules accepted: Orders Telephone Encounter - Amelie Wiley - 01/29/2022 3:39 PM CDT Labs drawn on 01/23/22 are here. Copy is in document viewer. This fax should be viewable in a few minutes. Thank you, Kala RST ONC [facility] AA POD 1 Telephone Encounter - Amelie Wiley - 01/29/2022 2:12 PM CDT Faxed stat request to medical records at [place] at [phone] to fax 01/28 labs Telephone Encounter - [...] patient's appt with Rebeca, then back to [place] for radiation, then back here for a genetics consult, she says that's not going to happen. Could someone please call Libby to discuss plan with her again? Thank you, Hannah RST ONC [facility] AA POD 1 Telephone Encounter - Johnathan Rogel - 01/28/2022 1:51 PM CDT Spoke to Libby, blood draw is being done at [facility] and they will send the results to [...] questions. Pt is to begin RT in [facility] or Friday this week. Libby is upset [...] that a lab order be sent to [place] for lab work today. They would like to completethis after pt 1:00 MRI. PLAN Disposition/Recommendation: recommended continue engagement in self-management activities and complete lab work in [place] today or tomorrow. Follow up with Danilo later this week. Information/Education: patient/caller able to teach back Caller agreeable to plan of care: yes The following references were used: nursing clinical judgement documented in this encounter Plan of Treatment Upcoming Encounters Date Type Specialty Care Team Description 06/24/2022 Clinical Support Oncology Vini Maki M.D., Ph.D. [address] [place] [phone] Hamida Ram L.G.S.W., M.S.W. 2022 Clinical Communication Admitting/Central Scheduling 07/19/2022 Appointment Radiology Vini Maki M.D., Ph.D. [address] [place] [phone] 07/22/2022 Comprehensive Visit Gastroenterology and Andres Mehta Hepatheri Lozada M.D. [address] [place] [phone] 07/23/2022 Lab Laboratory Medicine Vini Maki M.D., Ph.D. [address] [place] [phone] 07/23/2022 Office Visit Oncology Rebeca Valle P.A.-C., M.S. [address] [place] [phone] Scheduled Referrals Name Type Priority Associated Diagnoses [...] (A) 12.0 - OTHER 15.5 (SPECIFY IN SHIRT CREASER) EXT Leukocytes 8.01 5.0 - 10.0 OTHER (SPECIFY IN SHIRT CREASER) EXT Absolute 3.29 1.70 - 7.0 OTHER Neutrophil (SPECIFY IN Count SHIRT CREASER) EXT Lymphs 3.97 (A) 0.90 - OTHER Absolute 2.90 (SPECIFY IN SHIRT CREASER) EXT Platelet 360 150 - 450 OTHER Count (SPECIFY IN SHIRT CREASER) Specimen (Source) Anatomical Collection Method Collection Time Re ceived Time Location / / Volume Laterality Blood 01/28/2022 1:45 PM CDT Narrative This result has an attachment that is no t available. Historical Provider LAB BLOOD NON ADD-ON Performing Organization Address City/State/ZIP Code Phon e Number OTHER (SPECIFY IN SHIRT CREASER) OTHER (SPECIFY IN SHIRT CREASER) N/A documented in this encounter Visit Diagnoses Diagnosis Tumor Brain (HCC) - Primary documented in this encounter
--- OUTSIDE RECORDS SUMMARY | 2022-06-19 11:42 | XMS_ITS | Encounter Summary ---
:1970 Author Organization [facility] Address [address] [place] [id number] Care Team Providers Name Role Phone Unavailable Primary Care Provider Unavailable Reason for Referral Outpatient (Routine) - Authorized Specialty Diagnoses / Procedures Referred By Contact Refer red To Contact Diagnoses Tumor Brain (HCC) Aphasia Benjamín Warner M.D. [address] [place] [phone] Referral ID Status Reason Start Expiration Visits Visits Date Date Requested Authorized [id number] Authorized Patient 01/22/2022 01/22/2023 1 1 Preference hysical Therapy (Routine) - Authorized Specialty Diagnoses / Procedures Referred By Contact Refer red To Contact Diagnoses Tumor Brain (HCC) Abnormal Gait Non Orthopedic Lack Of Coordination Benjamín Warner M.D. [address] [place] [phone] Referral ID Status Reason Start Expiration Visits Visits Date Date Requested Authorized [id number] Authorized Patient 01/22/2022 01/22/2023 1 1 Preference Outpatient (Routine) - Authorized Specialty Diagnoses / Procedures Referred By Contact Refer red To Contact Diagnoses Tumor Brain (HCC) Abnormal Gait Non Orthopedic Lack Of Coordination Benjamín Warner M.D. [address] [place] [phone] Referral ID Status Reason Start Expiration Visits Visits Date Date Requested Authorized [id number] Authorized Patient 01/22/2022 01/22/2023 1 1 Preference Reason for Visit Auth/Cert Specialty Diagnoses / Procedures Referred By Contact Refer red To Contact Diagnoses Neoplasm of unspecified behavior of brain (HCC) Procedures ADMIT TO INPATIENT REHAB Referral ID Status Reason Start Date Expiration Date Visits Requ ested Visits Authorized [id number] 1 1 Encounter Details Date Type Department Care Team Description 01/17/2022 - Hospital Encounter [facility] Yolette Gleason M.D. [address] [place] [phone] Tumor Brain (HCC) (Primary Dx); [facility] [address] [place] [phone] [facility]ph[facility] [address] [place] [phone] Deficit Cognitive Communication; [facility] [facility], Abnormal Gait Non Orthopedic; Fourth Floor Decline Functional Status; [address] [place] [address] Unsteadiness Non Orthopedic; [place], [place] Lack Of Coordi [facility]; [phone] Decline Cognitive [phone] Social History Tobacco Use Types Packs/Day Years [...] have completed or the highest Maulik, MEd, JAVASCRIPT WEB DEVELOPER, MOISE) degree you have received? Sex [...] CDT REHABILITATION DISCHARGE SUMMARY BRIEF OVERVIEW Hospital: [facility] Discharge Provider: Michael De Los Santos M.D. [...] of this hospitalization and to establish a long-term management plan. 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 She is [...] therapy, speech therapy, rehab nursing, medical social services designee, and service rig operator. The patient made good progress and [...] inpatient rehabilitation. Continue with PT, OT and VULCANIZER OPERATOR to achieve goals as stated above -Pain [...] Normal upper and lower limb [place]. Normal hkhpxz-btrx-qxdwhy. Normal xonw-zd-tbhb. Sensation: Normal light touch sensation throughout upper and lower limbs. No extinction to double simultaneous stimulation in upper and lower limbs. CONSULTS ORDERED THIS ADMISSION IP CONSULT TO CARE MANAGEMENT IP CONSULT TO RECREATIONAL THERAPY CONDITION AT DISCHARGE stable Discharge instructions were provided to the patient and caregiver(s). documented in this encounter Discharge Instructions Patient Clover Quinones M.A., CCC-VULCANIZER OPERATOR - 01/22/2022 5:06 PM CDT SPEECH PATHOLOGY [...] at a time, use self-talk, use a land use planner/calendar, take notes, and ask for repetition as needed Ms. Cedillo will benefit from further instruction on how to use her land use planner and language/cognitive efficiency strategies in a way that matches her current level of activity/routine after discharge from hospital. Recommend Speech Pathology to evaluate and treat. Frequency and duration to be determined by the evaluating clinician. Discharge recommendations were provided on 01/22/2022 by Clover Yoder M.A., [facility]-VULCANIZER OPERATOR Contact Information: [facility], Department of Neurology, . Discharge Instr - [...] home for meal preparation, medication management, financial assistance advisor, child rearing, and household management. She benefits [...] recommendations; Muriel Cifuentes M.S., O.T. Contact information: [facility], [address] [place], AppointmentsVero Faust CRRN - 01/25/2022 9:01 AM CDT Outpatient Therapy: [facility]- [place] [address] [facility] Follow Up: February 06, 2022 [place] [address] AttachmentsThe following attachments cannot be sent through Care Everywhere. Gabapentin (By mouth) (Pakistani)documented in this encounter Medications at Time of [...] 01/25/2022 12:12 PM CDT Occupational Therapy Rehabilitation [facility] Inpatient Progress Note SUBJECTIVE Patient's Name: [...] Date: 01/09/22 Patient/Caregiver Goals: Return to home. [place] with ADL and IADL tasks. To initiate [...] patient reported she liked to use her [employer] grocery list prior to hospitalization. Education provided to use [employer] list and check off items once obtained from store to improve time efficiency and memory with items obtained during grocery shopping. Communication Management Communication Management Activity: Phone management Communication Management Comments: Addressed phone managment as it relates to setting reminders/alarms on patient's mobile phone as cognitive strategy to assist with memory. Patient prefers to use [employer]. Educated on the option of using a [...] Assistance with meal preparation, Assistance with financial assistance advisor, Assistance with transportation, Assistance with hous ekeeping, [...] Therapeutic exercise, Therapeutic modalities as needed, Orthosis ennalgoeaac-kcgqdcdz-kjrxeni, Manual therapy Time Spent with Patient Therapeutic [...] collaboration with the patient. Clover Yoder M.A., [facility]-VULCANIZER OPERATOR - 01/25/2022 10:30 AM CDT Speech Language [...] (Writing down times of therapy in personal land use planner) Orientation: Oriented X4 Problem Solving: Impaired [...] language and cognitive tasks. Mia described the 9SLIDESdoyle eBillme pictures with adequate details; however lacked specificity. [...] continue on target Plan Discharge Location: Unknown VULCANIZER OPERATOR Ongoing Services: Ongoing formal Speech Pathology services Frequency of Treatment: 1-2x/5-6 days per week Duration of Treatment: duration of rehab stay Rehab Potential: Good Lexi Syed PBritt, D.P.T. - 01/25/2022 8:17 AM CDT Physical Therapy Rehabilitation [facility] Inpatient Treatment SUBJECTIVE Patient's Name: Mia [...] Date: 01/09/22 Patient/Caregiver Goals: Return to home. [place] with ADL and IADL tasks. Precautions Other [...] of discha rge, patient schedule with outpatient PT/OT/VULCANIZER OPERATOR to address remaining deficits (high level balance, [...] Goal #2: Patient will demonstrate independence with teu-up-dodeq transfers by discharge to allow for improved [...] : 25 Minutes Lexi Syed P.T., D.P.TSanjuanita RDT Benjamín Warner M.D. - 01/25/2022 7:07 AM [...] today. Attendees included: patient, physician, bedside nurse, outdoor emergency care technician, physical therapist and occupational therapist. Medical updates [...] - Discharge today - Medications sent to [facility] ?? 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 Continue with PT, OT and VULCANIZER OPERATOR to achieve goals as stated above -Pain control: Continue acetaminophen 1,000 mg PO q6h PRN. -Seizure ppx: Continue Keppra 1,000 mg PO BID. Will remain on this until ANDRESSA follow up. -Continue dexamethasone taper. Scheduled to end 01/26 ?? #GERD -Continue pantoprazole 40 mg ?? FULL CODE as discussed with patient. Diet: Regular. Sutures/[place]: removed 01/24 DVT prophylaxis: Lovenox Bowel: Senna, MiraLAX and suppository as needed. Bladder: Currently voiding Disposition: discharging today Benjamín Warner MD PGY-2, PM&R Please contact the brain rehabilitation service pager [phone] with questions or concerns. Associated attestation - [...] mask during entire session. Nicole Kong M.S., CCC-VULCANIZER OPERATOR - 01/24/2022 2:00 PM CDT Speech Language [...] Primary Mode of Expression: Verbal Primary Language: Pakistani Generative Naming/Word Fluency: 61-80% accuracy Open Ended Questions: 81-99% accuracy Conversation: Impaired Impaired Conversation: Moderate Cognition Overall Cognitive Status: Impaired Arousal/Alertness: Appropriate responses to stimuli Attention: Impaired Sustained: Mild Alternating: Moderate Memory: (Writing down times of therapy in personal land use planner) Orientation: Oriented X4 Problem Solving: Impaired [...] continue on target Plan Discharge Location: Unknown VULCANIZER OPERATOR Ongoing Services: Ongoing formal Speech Pathology services Frequency of Treatment: 1-2x/5-6 days per week Duration of Treatment: duration of rehab stay VULCANIZER OPERATOR - Next Inpatient Appointment: 01/25/22 Rehab Potential: Good Electronically signed by Nicole Kong M.S., [facility]-VULCANIZER OPERATOR at 01/24/2022 3:54 PM CDT Jerald Almaraz M.A., [facility]-VULCANIZER OPERATOR - 01/24/2022 10:30 AM CDT Speech Language [...] (Writing down times of therapy in personal land use planner) Orientation: Oriented X4 Problem Solving: Impaired [...] continue on target Plan Discharge Location: Unknown VULCANIZER OPERATOR Ongoing Services: Ongoing formal Speech Pathology services Frequency of Treatment: 1-2x/5-6 days per week Duration of Treatment: duration of rehab stay VULCANIZER OPERATOR - Next Inpatient Appointment: 01/25/22 Rehab Potential: Good Clarisa Rodriguez - 01/24/2022 10:27 AM CDT Images from the original note were not included. Occupational Therapy Rehabilitation [facility] Inpatient Progress Note SUBJECTIVE Patient's Name: [...] Date: 01/09/22 Patient/Caregiver Goals: Return to home. [place] with ADL and IADL tasks. To initiate [...] pentagons from a model. Image shown below. [place] Making Test [place] making assessments require a variety of cognitive processes, including attention, visual search, scanning, sequencing, shifting, psychomotor speed, abstraction, cognitive flexibility, the abilityto execute and modify a plan of action, and the ability to maintain two trains of thought simultaneously. [place] A is a simple trail making task. Average performance requires task completion in 29 seconds.Today, patient completed [place] A in 28 seconds. Patient demonstrated 0 errors during task performance. [place] B introduces an alternating condition. The average individual is able to complete [place] B within 75 seconds. When discussing return to driving, research literature recommends a cut off score of 90 seconds. Today, patient completed [place] B in 32 seconds, which is above the cutoff score for deficiency. Patient demonstrated 0 errors during task performance. Assessment was administered today with paper and pencil via standardized form. Admission (01/19) Discharge (01/24) [place] A 32 seconds 28 seconds [place] B 49 seconds 32 seconds Hand Testing: Right Hand Left Hand Field Cashier Handle Setting 2 - Score 1 (kg): [...] Additional Staff Present During Session: Muriel Cifuentes, [facility] Assessment Mia is currently performing activities of [...] can I write this down? Patient completed [place] Making Test administered via standardized form with paper and pencil. She completed [place] A in 28 seconds improving from 32 seconds in her previous assessment. She completed [place] B in 32 seconds improving from her previous score of 49 seconds. These score improvements indicate progress in patient's overall processing speed. Based on results of standardized testing, Mia's gross motor coordination has improved bilaterally since evaluation. Patient's cardiology consultants strength and fine motor coordination results from [...] Assistance with meal preparation, Assistance with financial assistance advisor, Assistance with transportation, Assistance with hous ekeeping, [...] Therapeutic exercise, Therapeutic modalities as needed, Orthosis sbgmsajimzj-ujqzenmp-wolsevw, Manual therapy Time Spent with Patient Evaluations [...] a protein shake thatconsist of flax sees, ordy seeds, egg white protein, beet root, tumeric, [...] 89.3 kg (01/17/2022) Current Weight: 92.3 kg [place] Body Weight (Calculated) : 60.3 kg BMI [...] 97.7 kg Estimated Needs: Total Calorie Needs: 2632-6368 calories/day Method to Estimate Energy Needs: [place] (75% to Basal) Weight Used for Equation [...] about patient's nutritional care please contact pager [phone] on weekdays or [phone] on weekends/holidays. Benjamín Warner M.D. - 01/24/2022 [...] medications, and sent her medications to the [facility] per her request. She will [...] Remove sutures today - Medications sent to [facility] ?? 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 Continue with PT, OT and VULCANIZER OPERATOR to achieve goals as stated above -Pain [...] Please contact the brain rehabilitation service pager [phone] with questions or concerns. Associated attestation - [...] Date: 01/09/22 Patient/Caregiver Goals: Return to home. [place] with ADL and IADL tasks. Precautions Other [...] discharge recovery Education Provided to: Mia and mom Libby Learner's Response: Able to teach back At [...] Goal #2: Patient will demonstrate independence with cge-gl-koqpk transfers by discharge to allow for improved [...] 01/23/2022 11:24 AM CDT Occupational Therapy Rehabilitation [facility] Inpatient Progress Note SUBJECTIVE Patient's Name: [...] Date: 01/09/22 Patient/Caregiver Goals: Return to home. [place] with ADL and IADL tasks. To initiate [...] 5.0/6 Shop Task: 5.0/6 Wash Task: 5.0/5 Baring Task: 5.0/5 Phone Task: 4.5/6 Dress Task: [...] Assistance with meal preparation, Assistance with financial assistance advisor, Assistance with transportation, Assistance with hous ekeeping, [...] Therapeutic exercise, Therapeutic modalities as needed, Orthosis pbdusedhbhk-oanzqfjl-qctdmbu, Manual therapy Time Spent with Patient Therapeutic [...] in collaboration with the patient. Chandan Johnson DTito - 01/23/2022 10:44 AM CDT This is [...] Physical Medicine and Rehabilitation Clover Yoder M.A., CCC-VULCANIZER OPERATOR - 01/23/2022 10:30 AM CDT Speech Language [...] (Writing down times of therapy in personal land use planner) Orientation: Oriented X4 Problem Solving: Impaired [...] finding when describing what we use the land use planner for. Mia did have some difficultyrecalling [...] continue on target Plan Discharge Location: Unknown VULCANIZER OPERATOR Ongoing Services: Ongoing formal Speech Pathology services Frequency of Treatment: 1-2x/5-6 days per week Duration of Treatment: duration of rehab stay Rehab Potential: Good Electronically signed by Clover Yoder M.A., [facility]-VULCANIZER OPERATOR at 01/23/2022 10:32 PM CDT Benjamín Warner [...] today. Attendees included: patient, physician, bedside nurse, outdoor emergency care technician, physical therapist and occupational therapist. Medical updates were provided. Also discussed was progress toward patient centered goals, ongoing rehabilitation needs and dismissal planning. I have reviewed the current medication list. OBJECTIVE Temperature: [36.7 ??C] 36.7 ??C Resp Rate: [16] 16 Blood Pressure: (128-154)/(86-105) 129/88 SpO2: [97 %-100 %] 97 % Last Stool Occurrence: 1 (per patient) (01/22/22 1200 : Logan Irizarry, R.N.) Intake/Output Summary (Last 24 hours) at 01/23/2022 0745 Last data filed at 01/22/2022 1800 Gross per 24 hour Intake 1490 ml Output -- Net 1490 ml Bowel Incontinence: No (01/22/22 1200 : Logan Irizarry RSanjuantiaNSanjuanita) Unmeasured Urine Occurrence: 1 (01/20/222099 : Clarice Martinez RSanjuanitaNSanjuanita) Urinary Incontinence: No (01/19/221955 : Janeth Ovalle RSanjuanitaNSanjuanita) Physical Exam: General: Well-appearing, in no acute [...] inpatient rehabilitation. Continue with PT, OT and VULCANIZER OPERATOR to achieve goals as stated above -Pain [...] Please contact the brain rehabilitation service pager [phone] with questions or concerns. Associated attestation - [...] 01/23/2022 7:38 AM CDT Physical Therapy Rehabilitation [facility] Inpatient Treatment SUBJECTIVE Patient's Name: Mia [...] Date: 01/09/22 Patient/Caregiver Goals: Return to home. [place] with ADL and IADL tasks. Precautions Other [...] Goal #2: Patient will demonstrate independence with gjw-bb-utuwr transfers by discharge to allow for improved [...] 01/22/2022 12:36 PM CDT Occupational Therapy Rehabilitation [facility] Inpatient Progress Note SUBJECTIVE Patient's Name: [...] Date: 01/09/22 Patient/Caregiver Goals: Return to home. [place] with ADL and IADL tasks. To initiate [...] her own toughts during sequencing of task. [place] Test [place] Test is a symbol cancellation test that [...] today in an unstandardized format on the [employer] System ([employer]), which impacts the assessment's validity. Team Conference [...] this time. Outpatient OT recommended to address lugcey-ou-zhuq and driving. Patient/Family Education: Taking cognitive breaks, [...] room. Additional Staff Present During Session: Muriel Cifuentes [facility] Assessment Mia's right-sided inattention, short-term memory [...] Assistance with meal preparation, Assistance with financial assistance advisor, Assistance with transportation, Assistance with hous ekeeping, [...] Therapeutic exercise, Therapeutic modalities as needed, Orthosis ovstpjdegki-bwqtvint-euafifa, Manual therapy Time Spent with Patient Therapeutic [...] Physical Medicine and Rehabilitation Interdisciplinary Team Conference [facility] 01/22/2022 11:30 AM CDT Patient Name: Mia Richardson Admit Date/Time: 01/17/2022 11:55 AM Date of : 1970 Sex: Female Room/Bed: 254/254-P Etiologic Diagnosis: Tumor Brain (HCC) Impairment Group: Brain Dysfunction Payor: Payor: [facility] / Plan: [employer]BS [place] / Product Type: PPO / Anticipated Discharge Date: 01/25/22 Rehab Team Conference Participation Physician Benefits Representative: Dr. Michael De Los Santos Senior Resident Present: Dr. Farhat Hernandez Nursing Benefits Representative: Logan Irizarry RN CM/SW Benefits Representative: Twan Montero RN CM/SW Second Benefits Representative: JORGE Lambert PT Benefits Representative: Lexi Syed, PT OT Benefits Representative: KITA Mcgee and Muriel Cifuentes OT VULCANIZER OPERATOR Benefits Representative: Clover Yoder [facility]-VULCANIZER OPERATOR OT Goal #1: By next ITC, patient [...] Goal #2: Patient will demonstrate independence with liq-lq-aqztg transfers by discharge to allow for improved [...] independent with bed mobility, supervision assistance for vjj-ov-lcddr transfers and ambulation without assistive device due [...] this time. Outpatient OT recommended to address fmfmog-nf-lrfo and driving. Education Provided (OT): Taking cognitive breaks, external aids such as journal/calendar to assist with memory, visual scanning compensatory techniques Additional Team Conference Comments (VULCANIZER OPERATOR): Mia is demonstrating both a cognitive communication deficit and aphasia. She has difficulty recalling information and needs extra time to process through information. When word finding difficulties occur, she benefits from an unhurried approach to communicate. Repetition of information is important for new learning. Education Provided (VULCANIZER OPERATOR): Strategy training for both language and cognition [...] an environment with fewer distractions. - In VULCANIZER OPERATOR: Language and cognitive impairments with deficits in [...] Physical Medicine & Rehabilitation Clover Yoder M.A., [facility]-VULCANIZER OPERATOR - 01/22/2022 10:30 AM CDT Speech Language Pathology Communication/Cognitive Treatment- Inpatient Rehabilitation Unit Session Type: Treatment Length of AM Session: 30 minutes Length of PM Session: 30 minutes SUBJECTIVE Mia is seen in her private room for [...] (Writing down times of therapy in personal land use planner) Orientation: Oriented X4 Problem Solving: Impaired [...] continue on target Plan Discharge Location: Unknown VULCANIZER OPERATOR Ongoing Services: Ongoing formal Speech Pathology services Frequency of Treatment: 1-2x/5-6 days per week Duration of Treatment: duration of rehab stay Rehab Potential: Good Lexi Syed P.Stanford, D.P.T. - 01/22/2022 7:52 AM CDT Physical Therapy Rehabilitation [facility] Inpatient Treatment Patient seen for physical [...] Date: 01/09/22 Patient/Caregiver Goals: Return to home. [place] with ADL and IADL tasks. Precautions Other [...] She did well following written instructions during [facility], however struggle to recall verbal instructions. [...] Goal #2: Patient will demonstrate independence with xqj-er-chcep transfers by discharge to allow for improved [...] Urinary Incontinence: No (01/19/221955 : Janeth Ovalle RSanjuanitaNSanjuanita) Physical Exam: General: Well-appearing, in no acute [...] inpatient rehabilitation. Continue with PT, OT and VULCANIZER OPERATOR to achieve goals as stated above -Pain [...] Please contact the brain rehabilitation service pager [phone] with questions or concerns. Associated attestation - [...] inpatient rehabilitation. Continue with PT, OT and VULCANIZER OPERATOR to achieve goals as stated above -Pain control: Continue acetaminophen 1,000 mg PO q6h PRN. -Seizure ppx: Continue Keppra 1,000 mg PO BID. Will remain on this until ANDRESSA follow up. -Continue dexamethasone taper ?? #GERD -Continue pantoprazole 40 mg po QAM ?? FULL CODE as discussed with patient. Diet: Regular. Sutures/[place]: can be removed 14 days post-operatively (around 01/24) DVT prophylaxis: Lovenox Bowel: Senna, MiraLAX and suppository as needed. Bladder: Currently voiding Disposition: ELOS 10 days; goal to home Benjamín Warner MD PGY-2, PM&R Please contact the brain rehabilitation service pager [phone] with questions or concerns. Sweetie Landaverde M.S., O.T. - 01/20/2022 8:51 AM CDT Occupational Therapy Rehabilitation [facility] Inpatient Progress Note SUBJECTIVE Patient's Name: [...] Date: 01/09/22 Patient/Caregiver Goals: Return to home. [place] with ADL and IADL tasks. To initiate [...] patient's room in-betweentherapies. Currently Used Cognitive Strategies: Calendar/land use planner use, Use of assistive technology (i.e. smartphone), Making lists Cognitive Intervention: Functional cognitive activities, Generalizing cognitive strategies to functional tasks, Calendar/land use planner use Cognitive Intervention Comments: Patient shared excitement that she has just started using her land use planner again without feeling overwhelmed. Patient explained that she usually uses a land use planner to schedule her personal and work [...] Delivery: Assessed, Facilitated UE Dressing Items Included: disaster recovery analyst shirt UE Dressing Level of Assistance: Supervision/Set-up [...] Patient performed simple meal prep following therapist's vebral instructions (Cook 2 eggs however you like [...] Assistance with meal preparation, Assistance with financial assistance advisor, Assistance with transportation, Assistance with housekeeping, Assistance [...] Therapeutic exercise, Therapeutic modalities as needed, Orthosis ecnckcdpygh-cxdlzoiy-fdcfvon, Manual therapy Time Spent with Patient Therapeutic Interventions Home Management Training (min): 60 min Therapeutic Activity (min): 30 min Time Tracking Total Timed Units (min): 90 min Total Treatment Time (min): 90 min OT Individual: 90 Minutes Sweetie Landaverde M.S., O.T. Elizabet Ochoa, P.T. - 01/20/2022 8:24 AM CDT Physical Therapy Rehabilitation [facility] Inpatient Treatment SUBJECTIVE Patient's Name: Mia [...] Date: 01/09/22 Patient/Caregiver Goals: Return to home. [place] with ADL and IADL tasks. Patient Comments: [...] Goal #2: Patient will demonstrate independence with toz-tt-bvgzf transfers by discharge to allow for improved [...] PT Individual : 90 Minutes Elizabet Ochoa P.TSanjuanita Sandra Rust D.O. - 01/20/2022 7:11 AM [...] inpatient rehabilitation. Continue with PT, OT and VULCANIZER OPERATOR to achieve goals as stated above -Pain [...] Please contact the brain rehabilitation service pager [phone] with questions or concerns. Sandra Rust, DO PM&R PGY-2 Sweetie Landaverde M.S., O.T. - 01/19/2022 3:51 PM CDT Occupational Therapy Rehabilitation [facility] Inpatient Progress Note SUBJECTIVE Patient's Name: [...] Date: 01/09/22 Patient/Caregiver Goals: Return to home. [place] with ADL and IADL tasks. To initiate [...] Delivery: Assessed, Facilitated UE Dressing Items Included: disaster recovery analyst shirt UE Dressing Level of Assistance: Supervision/Set-up [...] need for further assessment. Total LISET III Mozambican Version A. Score: 81/100 Domain scores: Attention: [...] validity or sensitivity with this patient population. [place] Making Test [place] making assessments require a variety of cognitive processes, including attention, visual search, scanning, sequencing, shifting, psychomotor speed, abstraction, cognitive flexibility, the abilityto execute and modify a plan of action, and the ability to maintain two trains of thought simultaneously. [place] A is a simple trail making task. Average performance requires task completion in 29 seconds.Today, patient completed [place] A in 32 seconds. Patient demonstrated 0 errors during task performance. [place] B introduces an alternating condition. The average individual is able to complete [place] B within 75 seconds. When discussing return to driving, research literature recommends a cut off score of 90 seconds. Today, patient completed [place] B in 49 seconds, which is below [...] Assistance with meal preparation, Assistance with financial assistance advisor, Assistance with transportation, Assistance with housekeeping, Assistance [...] Therapeutic exercise, Therapeutic modalities as needed, Orthosis wvjpsnvreji-ofjjiueb-jchlgja, Manual therapy Time Spent with Patient Therapeutic Interventions Home Management Training (min): 60 min Therapeutic Activity (min): 30 min Time Tracking Total Timed Units (min): 90 min Total Treatment Time (min): 90 min OT Individual: 90 Minutes Sweetie Landaverde M.S., O.T. Kylie Lara M.S., [facility]-VULCANIZER OPERATOR - 01/19/2022 1:55 PM CDT Speech Language [...] continue on target Plan Discharge Location: Unknown VULCANIZER OPERATOR Ongoing Services: Ongoing formal Speech Pathology services [...] Date: 01/09/22 Patient/Caregiver Goals: Return to home. [place] with ADL and IADL tasks. Patient Comments: [...] 3: in PM took outside to the [employer]. had patient path find from south end [...] Goal #2: Patient will demonstrate independence with sto-dn-cbuja transfers by discharge to allow for improved [...] inpatient rehabilitation. Continue with PT, OT and VULCANIZER OPERATOR to achieve goals as stated above -Pain control: Continue acetaminophen 1,000 mg PO q6h PRN. -Seizure ppx: Continue Keppra 1,000 mg PO BID. Will remain on this until ANDRESSA follow up. -Continue dexamethasone taper ?? #GERD -Continue pantoprazole 40 mg po QAM ?? FULL CODE as discussed with patient. Diet: Regular. Sutures/[place]: can be removed 14 days post-operatively (around 01/24) DVT prophylaxis: Lovenox Bowel: Senna, MiraLAX and suppository as needed. Bladder: Currently voiding Disposition: ELOS 10 days; goal to home Please contact the brain rehabilitation service pager [phone] with questions or concerns. Sandra Rust, DO [...] today. Attendees included: patient, physician, bedside nurse, outdoor emergency care technician, physical therapist and occupational therapist. This is [...] Incontinence: No (01/18/22 0000 : Shilpa Kennedy, RSajnuanitaNSanjuanita) Physical Exam: General: Well-appearing, in no acute [...] inpatient rehabilitation. Continue with PT, OT and VULCANIZER OPERATOR to achieve goals as stated above -Pain [...] Please contact the brain rehabilitation service pager [phone] with questions or concerns. Associated attestation - [...] included: patient, family member(s), physician, bedside nurse, outdoor emergency care technician, physical therapist, occupational therapist, Social work, and speech/language pathologist. This is the patient's first bedside rounds. We provided medical updates and introduction to team members and roles. Then we reviewed patient-centered goals including speech/communication strategies, attention, memory, endurance/activity tolerance, ambulating and performing ADLs with less assistance Yolette lGeason M.D. Yolette Gleason M.D. - 01/17/2022 4:54 PM CDT Physical Medicine and Rehabilitation PMR Rehab Individualized Overall Plan of Care 01/17/2022 4:54 PM CDT Patient Name: Mia Richardson Date of : 1970 Sex: Female Room/Bed: 254/254-P Payor Info: Payor: [facility] / Plan: [employer] [place] / Product Type: PPO / Etiologic Diagnosis: Tumor Brain (HCC) Admit Date/Time: 01/17/2022 11:55 AM Estimated Length of Stay: Estimated Length of Stay: 10 days Anticipated Discharge Destination: - Home (private home/apt., board/care, assisted living, [facility], transitional living) The following care plan has [...] Projected Minutes/Day: 90 OT Projected Days/Week: 5 VULCANIZER OPERATOR Projected Minutes/Day: 30 VULCANIZER OPERATOR Projected Days/Week: 5 Expected Functional Outcomes: Expected [...] see H&P/Admission note by Benjamín Warner MD ([phone]) for additional details. ADMISSION ICG Adult; Brain [...] to the patient's family members. The nurse outdoor emergency care technician shall assist with dismissal planning. 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 She is [...] but struggled with multistep commands needing frequent drapery examiner's to carry out this execution Muscle [...] Normal upper and lower limb [place]. Normal hbeozt-aqjd-abqttq. Normal wmfk-mf-atvo. Sensation: Normal light touch sensation throughout upper [...] diagnosis-specific education to patient's family members. Nursing social service coordinator to assist with dismissal planning. 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 Continue with PT, OT and VULCANIZER OPERATOR to achieve goals as stated above -Pain [...] Warner MD PGY-2 with assistance from Kory Starks MS4 Please contact the brain rehabilitation service pager [phone] with questions or concerns. documented in this encounter Consult Notes Juan Carlos Butler P.T., Pillo.P.T. - 01/18/2022 4:46 PM CDT Physical Therapy Rehabilitation [facility] Inpatient Evaluation/Treatment SUBJECTIVE Referring/Attending Provider: Yolette Gleason M.D. Patient's Name: Mia Richardson Reason for Referral: PT Evaluate and treat - Brain IRF Medical Diagnosis: 1. Tumor Brain (HCC) 2. Aphasia 3. Deficit Cognitive Communication 4. Abnormal Gait Non Orthopedic Onset Date: 01/09/22 Payor: [employer] / Plan: [facility] [place] / Product Type: PPO / PERTINENT MEDICAL/ SURGICAL HISTORY: Patient Active Problem List Diagnosis ??? Malignant Neoplasm Of Brain (HCC) ??? Tumor Brain (HCC) Past Surgical History: Procedure Laterality Date ??? CRANIOTOMY - STEREOTACTIC Left 01/10/2022 Procedure: Asleep left temporoparietal stereotactic craniotomy tumor resection, speech mapping, supine position, intraoperative MRI, BK ultrasound.; Surgeon: Charles Ivey M.D., Ph.D.; Location: [facility] OR ??? CRANIOTOMY FOR TUMOR Left 12/05/2021 ??? TONSILLECTOMY History of Present Illness: s/p left temporoparietal crani for resection of Grade 3 astrocytoma Please see Hospital Admission History and Physical for full history of present illness. Precautions Other Precautions: fall, impulsive safety awareness, vision, headaches, light sensitivity, right hippain due to likely trochanteric bursitis(question possible injection to help) Patient/Caregiver Goals: Return to home. [place] with ADL and IADL tasks. 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 Prior Mobility/Functional Transfers Level of [place]: Independent Home Living Type of Home: House [...] and non-sensical statements. Per chart,her mother from [place] has been living with her recently and [...] independent with bed mobility, supervision assistance for ubx-rn-ejrrj transfers and ambulation without assistive device due [...] CARE Score - Sit to Stand: 4 Chair/Rno-zm-Ebnml Transfer Assistance Needed: Supervision CARE Score - Chair/Fvy-xj-Gfbyq Transfer: 4 Car Transfer Assistance Needed: Supervision [...] Goal #2: Patient will demonstrate independence with pcb-qg-wfids transfers by discharge to allow for improved [...] Gait Non Orthopedic Onset Date: 01/09/22 Payor: [employer] / Plan: [employer] / Product Type: PPO / PERTINENT MEDICAL / SURGICAL HISTORY: Patient Active Problem List Diagnosis ??? Malignant Neoplasm Of Brain (HCC) ??? Tumor Brain (HCC) Past Surgical History: Procedure Laterality Date ??? CRANIOTOMY - STEREOTACTIC Left 01/10/2022 Procedure: Asleep left temporoparietal stereotactic craniotomy tumor resection, speech mapping, supine position, intraoperative MRI, BK ultrasound.; Surgeon: Charles Ivey M.D., Ph.D.; Location: [facility] OR ??? CRANIOTOMY FOR TUMOR Left 12/05/2021 ??? 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 SeeHospital Admission History and Physical for full history of present illness. Precautions Other Precautions: fall risk, decreased safety awareness, right visual field cut Patient/Caregiver Goals: Return to home. [place] with ADL and IADL tasks. To initiate asking questions to medical team and to family members. 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 She [...] task. Hand Testing: Right Hand Left Hand Field Cashier Handle Setting 2 - Score 1 (kg): [...] limits as indicated by standardized testing scores. Field Cashier/pinch strength within normal limits (see scores above). [...] Assistance with meal preparation, Assistance with financial assistance advisor, Assistance with transportation, Assistance with hous ekeeping, [...] Therapeutic exercise, Therapeutic modalities as needed, Orthosis ttgofquzhch-jzayaodg-srzxpxa, Manual therapy Occupational Profile and History review: [...] done by: Paulina Jiménez RN Primary Language: Pakistani Support Team Assoc Services Used: No Sexuality/Pronoun: Straight (not lesbian [...] self, Attitude of family Financial/Insurance Primary insurance: [facility] Secondary insurance: N/A Does the patient have any financial concerns? No Advance Directives Legal Decision Maker: Self Advance Directives Status: None on file Baseline Functional Status Baseline Activities of Daily Living Mobility: Assistance of one Dressing: Needs assistance Feeding: Independent Bathing: Needs assistance Grooming: Needs assistance Toileting: Needs assistance Behavior: Appropriate, Pleasant, Calm, Cooperative, Oriented Communication: Can write, Talks, Understands speaking, Understands Pakistani, Reads Shopping: Needs assistance Transportation: Support from family Medication Management: Needs assistance Housekeeping: Needs assistance Meal Prep: Needs assistance Managing Finances: Needs assistance Assistive Devices: Cellphone, Eyeglasses Baseline Services/Resources Primary care clinic and provider: [facility]// Marie Nettles MD Ms. Cedillo reported that [...] and Safety Risk Assessment: C-SSRS: Utilizing the [place] Suicide Risk Severity Scale (C-SSRS), the patient [...] an assessment following the patient's admission to [place] [address]. Monitoring Manager introduced self and the role of social work in the inpatient rehabilitation setting. It was discussed with the patient that staff are mandated reporters and she reported understanding. Ms. Cedillo reported that she plans to return home upon discharge from inpatient rehabilitation. Shestated that she lives with her son in a single-level, second- story apartment in [place]. She noted that her adult daughter arrived this week and will be staying with her to provide assistance. She shared that her mother, Libby, is a retired [facility] practice physician and has been staying with them for several weeks since her diagnosis and will continue to stay with them to be a support during her recovery. Ms. Cedillo expressed that she does not have concerns about the layout of her home environment or her ability to mobilize safely within it. 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 She reflected on [...] Анна Balderas.Rusty.S.Yasmeen., M.S.W. 01/18/2022 Clover Yoder M.A., CCC-VULCANIZER OPERATOR - 01/18/2022 10:30 AM CDT Speech Language Pathology Communication/Cognitive Evaluation - Inpatient Rehabilitation Unit Session Type: Treatment Length of session: 30 minutes SUBJECTIVE Referred By: RST [facility] Re[facility] History: Ms. Cedillo is a right handed 51 y.o. female who was admitted to the [place] [address] Inpatient Rehabilitation Unit on 01/17/2022 due to resection of brain tumor. Ms. Cedillo's medical history is well documented in the electronic medical record, please refer to admission notes for full history. Briefly, Ms. 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 Ms. Cedillo previously received Speech Pathology services addressing aphasia and cognition. Speech Pathology consult was received for evaluation of aphasia and cognitive communication. Prior Level of Functioning: Ms. Cedillo was previously independent with all ADL and IADLs. She lives with her significant other in [place], [place]. 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 Highest level of education completed was an advance college degree. Patient/Family Goal(s): To express, comprehend and remember new information. Pain: No pain reported at time of evaluation. General Family/Caregiver Present: No Arousal/Alertness: Appropriate responses to stimuli Behavior: Alert, Cooperative, Distractible, Pleasant mood OBJECTIVE Objective Session Data Motor Speech Voice: Within Normal Limits (WNL) Resonance (MEDICAL SERVICES COORDINATOR Function): Within Normal Limits (WNL) Articulation: Within [...] Primary Mode of Expression: Verbal Primary Language: Pakistani Generative Naming/Word Fluency: 61-80% accuracy Open Ended [...] concerns with memory and showed me her land use planner on her tray table that she [...] continue on target Plan Discharge Location: Unknown VULCANIZER OPERATOR Ongoing Services: Ongoing formal Speech Pathology services Frequency of Treatment: 1-2x/5-6 days per week Duration of Treatment: duration of rehab stay VULCANIZER OPERATOR - Next Inpatient Appointment: 01/19/22 Rehab Potential: Good documented in this encounter Nursing Notes Maritza Guerrero R.N. - 01/25/2022 12:12 PM CDT Shift Goals: Clinical Goals for the Shift: Patient will prepare for discharge. Identify possible barriers to meeting goals/advancing plan of care: none End of Shift Summary: Patient discharged to home with mother with all belongings. They picked up medications from [facility] pharmacy. RN reviewed discharge paperwork and [...] Patient will need a copy of her [place] appointment guide. Rehabilitation Services- [place] [address] Nursing should fax [facility] facility and 3 days of therapy notes at time of dismissal. ?? Post Hospital Follow Up: February 06, 2022 Dr. Mohamud [address] [address] Nursing should fax [facility] facility and dismissal [...] outpatient therapy after discharge. Rehabilitation Services - [address] [address] Nursing should fax [facility] facility and 3 days of therapy notes at time of dismissal. Primary Care: [address] [address] Nursing should fax [facility] facility and dismissal [...] Her care was subsequently transferred here to [facility] where she then underwent a left temporoparietal [...] as a DBT therapist and lives in [place], [place], with her two children. She is [...] therapy, speech therapy, rehab nursing, medical social services designee, and service rig operator. The patient made good progress and [...] inpatient rehabilitation. Continue with PT, OT and VULCANIZER OPERATOR to achieve goals as stated above -Pain [...] Normal upper and lower limb [place]. Normal uokgjs-trfy-mfckcw. Normal ccwl-xu-aljm. Sensation: Normal light touch sensation throughout upper and lower limbs. No extinction to double simultaneous stimulation in upper and lower limbs. documented in this encounter Plan of Treatment Upcoming Encounters Date Type Specialty Care Team Description 06/24/2022 Clinical Support Oncology Vini Maki M.D., Ph.D. [address] [place] [phone] Hamida Ram L.G.S.W., M.S.W. 2022 Clinical Communication Admitting/Central Scheduling 07/19/2022 Appointment Radiology Vini Maki M.D., Ph.D. [address] [place] [phone] 07/22/2022 Comprehensive Visit Gastroenterology and Andres Mehta Hepatology Sebastian Lozada [address] [place] [phone] 07/23/2022 Lab Laboratory Medicine Vini Maki M.D., Ph.D. [address] [place] [phone] 07/23/2022 Office Visit Oncology Rebeca Valle P.A.-C., M.S. [address] [place] [address] [phone] Scheduled Referrals Name Type Priority Associated Diagnoses [...] DTL Nitrogen), S mg/dL 7:49 AM CDT Creatinine 0.71 0.59 - 01/22/2022 DTL 1.04 mg/dL 7:49 AM CDT eGFR-Non >90 >=60 01/22/2022 DTL Black/ mL/min/BSA 7:49 AM CDT Mozambican Comment: ----ADDITIONAL INFORMATION---- Estimated GFR calculated using [...] Address City/State/ZIP Code Phon e Number [facility] - [address] [place], [place] [address] [facility] [place] [address] [facility] [address] Basic Metabolic Panel (01/18/2022 [...] DTL Nitrogen), S mg/dL 11:25 AM CDT Creatinine 0.73 0.59 - 01/18/2022 DTL 1.04 mg/dL 11:25 AM CDT eGFR-Non >90 >=60 01/18/2022 DTL Black/ mL/min/BSA 11:25 AM CDT Mozambican Comment: ----ADDITIONAL INFORMATION---- Estimated GFR calculated using [...] Address City/State/ZIP Code Phon e Number [facility] - [address] [place], [place] [address] [facility] [place] [address] [facility] [address] documented in this encounter Visit Diagnoses Diagnosis Tumor Brain (HCC) - Primary Tumor Brain (HCC) Aphasia Deficit Cognitive Communication Abnormal Gait Non [...] Daily PRN, constipation, Starting on Fri at 1115, Ordered sequence of administration: polyethylene [...] Pro vider: Susana Wiggins R.N. - Comment: MD mathis)0829 (Given - Provider: Olga Najera RGiovani.)1517 (Given - Provider: Olga Najera R.N.)2004 (Given - Provider: Meche Haywood R.N.) 0259 (Given - Provider: Meche Haywood, R.N.)0755 (Given - Provider: Olga Najera RSanjuanitaN.)1512 (Given - Provider: Olga Najera R.N.)2106 (Given - Provider: Phil Koroma R.N.) 0438 (Given - Provider: Phil Koroma R.N.)0809 (Given - Provider: Maritza Guerrero RSanjuanitaNSanjuanita) 1 mg, oral, Every 6 hours, First [...] Najera R.N.)2002 (Given - Provider: Meche Haywood RAquilino) 075 (Given - Provider: Olga Najera R.N.)2105 (Given - Provider: Phil Koroma RAquilino) 08 (Given - Provider: Maritza Guerrero RAquilino) 1,000 mg, oral, 2 times daily, First dos e (after last modification) on Fri01/17/[address] tablet 40 mg (PROTONIX) 0620 (Given - Provider: Susana Wiggins R.N.) 0615 (Given - Provider: Meche Haywood RSanjuanitaN. ) 0439 (Given - Provider: Phil Koroma RAquilino)0755 (Canceled Entry - Provider: Maritza Guerrero RAquilino - Comment: dose given early) 40 mg, oral, Daily before breakfast, Fir st dose (after last modification) on Fri01/18/22 at 0700, Swallow whole. Do NOT crush, chew, or split tablet. PRN Medication Order 01/23/2022 01/24/2022 01/25/2022 acetaminophen tablet 1,000 mg (TYLENOL) 1043 (Given - Provider: Renetta J Rongve, R.N.)1700 (Given - Provider: Olga Najera, RSanjuanitaNSanjuanita) 0259 (Given - Provider: Meche Haywood, R.N.)1512 (Given - Provider: Olga Najera, R.N.)2106 (Given - Provider: Phil Koroma RAquilino) 1,000 mg, oral, Every 6 hours PRN, [...] application 1 application, topical, 2 times daily IA N, muscle/joint pain, Starting on Fri01/22/22 at 2343 naloxone injection 0.2 mg (NARCAN) 0.2 mg, intravenous, As needed, respirat ory depression, Starting on Bee 01/17/22 at 1231, For respiratory rate less than [...]
--- OUTSIDE RECORDS SUMMARY | 2022-06-19 11:42 | XMS_ITS | Encounter Summary ---
:1970 Author Organization [facility] Address [address] [place] [id number] Care Team Providers Name Role Phone Unavailable Primary Care Provider Unavailable Reason for Referral Outpatient (Routine) - Closed Specialty Diagnoses / Procedures Referred By Contact Refer red To Contact Radiation Oncology Diagnoses Malignant Neoplasm Of Brain (HCC) Norma Diamond [place], M.S. [address] [place] [address] Referral ID Status Reason Start Date Expiration Date Visits Requ ested Visits Authorized [id number] Closed 01/22/2022 01/22/2023 1 1 Reason for Visit Outpatient (Routine) - Closed Specialty Diagnoses / Procedures Referred By Contact Refer red To Contact Radiation Oncology Diagnoses Malignant Neoplasm Of Brain (HCC) Norma Diamond [place] [facility], M.S. [address] [place] [phone] Referral ID Status Reason Start Date Expiration Date Visits Requ ested Visits Authorized [id number] Closed 01/22/2022 01/22/2023 1 1 Encounter Details Date Type Department Care Team Description 01/28/2022 Hospital Encounter Department of Stephanie Gleason Neoplasm Radiation Oncology Sebastian Marcelino Of Brain (HCC) in [place] [address] [address] [place], [place] [address] [facility] [address] [place], [place] [phone] (Work) [phone] Social History Tobacco Use Types Packs/Day Years [...] completed or the highest 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 Sex [...] AM CDT RADIATION ONCOLOGY FOLLOW-UP VISIT Supervising Fire Apparatus Engineer: Dr. Stephanie Gleason Home address: [address] [place] [phone] SUBJECTIVE History of present illness Mia Cedillo [...] sense. The patient was taken to the [facility] with altered mental status. The patient [...] steroids and Keppra and transferred to [facility]. 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 See comment. B. 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 See comment. Final Diagnosis: [...] Dr. Shelbie Ackerman at the [facility]. Discussed that it was okay for the patient to proceed with chemotherapy and radiation 1 month from biopsy date. Also discussed that itwas okay for the patient to travel on a commercial air flight approximately 1 month from biopsy as she was planning for a trip to [place] with her significant other in December. 12/24/[address] Shelbie Ackerman who reviewed the patient's case with Dr. Dunlap and he recommended against additional surgery. Dr. Macias recommended proceeding with a combination of radiation therapy plus temozolomide. Referral to Radiation Oncology at [facility] in [place]. 01/10/2022 Surgery and Procedures Left temporoparietal stereotactic craniotomy with tumor resection, speech mapping with Dr. Ivey. PATHOLOGY: A-D. 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 See comment. 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 The biopsy specimen lacked microvascular proliferation and tumor necrosis. By immunohistochemistry, the tumor cells were negative for IDH1-R132H and showed retained ATRX expression. 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 01/10/2022 Imaging MRI of [...] We will have the MR interpreted by [place] radiology. We discussed initiation of treatment on 01/31/2022 or 02/01/2022 pending thorough review including by our peers in [place]. The patient was provided [facility] for her MRI and may receive [...] on 01/31/2022 Dr. Stephanie Gleason is the workday financials consultant; please see attestation for further details. [...] We discussed the acute as well as mcc risks, including, but not limited to fatigue, [...] call her tomorrow once we have the [place] over-read on her planning MRI brain. My [...] Oncology Vini Maki M.D., Ph.D. [address] [place] [phone] Hamida Ram L.G.S.W., M.S.W. 2022 Clinical Communication Admitting/Central Scheduling 07/19/2022 Appointment Radiology Vini Maki M.D., Ph.D. [address] [place] [phone] 07/22/2022 Comprehensive Visit Gastroenterology and Andres Mehta Hepatheri Lozada M.D. [address] [place] [phone] 07/23/2022 Lab Laboratory Medicine Vini Maki M.D., Ph.D. [address] [place] [phone] 07/23/2022 Office Visit Oncology Rebeca Valle P.A.-C., M.S. [address] [place] [phone] Scheduled Referrals Name Type Priority Associated Order Schedule Diagnoses Radiation Oncology Outpatient Referral Routine Malignant Neopl asm Once for 1 - Brain / PRODUCTION FOREMAN Of Brain (HCC) Occurrences starting consult (clinic) [...]
--- OUTSIDE RECORDS SUMMARY | 2022-06-19 11:42 | XMS_ITS | Encounter Summary ---
:1970 Author Organization [facility] Address [address] [place] [address] Care Team Providers Name Role Phone Unavailable Primary Care Provider Unavailable Reason for Visit Reason Comments Treatment Plan Encounter Details Date Type Department Care Team Description 01/22/2022 Clinical Communication Department of Latanya Michael Treatment Plan Oncology in [facility] 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 Sex Assigned at Date Recorded Female 01/07/2022 11:11 AM CDT documented as of this encounter Miscellaneous Notes Telephone Encounter - Norma Diamond P.A.-C., M.S. - 01/22/2022 12:13 PM CDT I was in contact with the radiation oncology team at [facility] who states they were planning [...] Oncology Vini Maki M.D., Ph.D. [address] [place] [phone] Hamida Ram L.G.S.W., M.S.W. 2022 Clinical Communication Admitting/Central Scheduling 07/19/2022 Appointment Radiology Vini Maki M.D., Ph.D. [address] [place] [phone] 07/22/2022 Comprehensive Visit Gastroenterology and Andres Mehta Hepatheri Lozada M.D. [address] [place] [phone] 07/23/2022 Lab Laboratory Medicine Vini Maki M.D., Ph.D. [address] [place] [phone] 07/23/2022 Office Visit Oncology Rebeca Valle P.A.-C., M.S. [address] [place] [phone] documented as of this encounter Visit Diagnoses Not on filedocumented in this encounter
--- OUTSIDE RECORDS SUMMARY | 2022-06-19 11:42 | XMS_ITS | Encounter Summary ---
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 Sex [...] Would like a call back. Phone number: [phone] Is it okay to leave a voicemail on answering machine with test results? Yes Pharmacy (if medication related): [facility] [address] [place] [address] [address] [facility] [address] [facility] [address] [facility] [place], [place] - [address] [facility] 200 [facility] [address] [facility], [place] - [address] [place] [address] [place] [phone] Alexandria Austin documented in this encounter Plan of Treatment Upcoming Encounters Date Type Specialty Care Team Description 06/24/2022 Clinical Support Oncology Vini Maki M.D., Ph.D. [address] [place] [phone] Hamida Ram L.G.STammy., M.S.W. 2022 Clinical Communication Admitting/Central Scheduling 07/19/2022 Appointment Radiology Vini Maki M.D., Ph.D. [address] [place] [phone] 07/22/2022 Comprehensive Visit Gastroenterology and Andres Mehta Hepatheri Lozada M.D. [address] [place] [phone] 07/23/2022 Lab Laboratory Medicine Vini Maki M.D., Ph.D. [address] [place] [phone] 07/23/2022 Office Visit Oncology Rebeca Valle P.A.-C., M.S. [address] [place] [phone] documented as of this encounter Visit Diagnoses Not on filedocumented in this encounter
--- OUTSIDE RECORDS SUMMARY | 2022-06-19 11:43 | XMS_ITS | Encounter Summary ---
:1970 Author Organization [facility] Address [address] [place] [address] Care Team Providers Name Role Phone Unavailable [...] Expiration Date Visits Requ ested Visits Authorized [id number] 1 1 Encounter Details Date Type Department Care Team Description 01/09/2022 - Hospital Encounter [facility] Ivey, Charles Tumor B rain (HCC) (Primary Dx); 01/17/2022 [facility] Esteban M.D., Ph.D. Malignant Neoplasm Of Brain (HCC); [facility], [address] Change Mental Status; [place], [place] Abnormal Ga it Non Orthopedic; Ninth Floor [address] Concern Patient Cognition Function; [address] [facility] [phone] Deficit Cognitive Communicat ion; [place], [place] (Work) Decline Cognitive [address] Social History [...] have completed or the highest Maulik, MEd, AGENCY SALES MANAGEMENT ASSISTANT, MOISE) degree you have received? Sex [...] AM CDT DISCHARGE SUMMARY BRIEF OVERVIEW Hospital: [facility] Discharge Provider: Charles Ivey M.D. Primary Team: RST Neurologic Surgery - Loni No primary care [...] Benjamin T, M.D., Ph.D.Marisol Avilez, Ph.D., L.P. [facility] OR DISCHARGE DISPOSITION Rehab Facility [62] ACTIVE ISSUES REQUIRING FOLLOW UP OUTPATIENT FOLLOW UP Scheduled Appointments 01/25/2022 12:00 PM Evangelist Salinas M.D., Ph.D. Neurological Surgery 01/31/2022 8:20 AM Rebeca Valle P.A.-C., M.S. Oncology 01/31/2022 10:00 AM Iban De La Cruz M.D. Radiation Oncology 01/31/2022 2:15 PM Sejal Resendiz M.S., [facility] [place] Clinical Genomics 02/07/2022 1:20 PM Farzana Allen [...] subt[place] [facility] for grade 3 astrocytoma, IDH wildtype, MGMT [...] subtotal resection on 12/05 [place] [facility] After surgery, she improved temporarily, but then [...] CONSULT TO CARE MANAGEMENT IP CONSULT TO GOVERNMENT SALES MANAGER SOCIAL SERVICES IP CONSULT TO PHYSICAL MEDICINE & REHABILITATION [...] visit with Dr. Ivey, or his Physician's Production Machinist, Eileen Tai, in approximately 3 months. These [...] Discharge information provided on 01/16/2022 Contact information: [facility], Acute Therapy Services [phone] documented in this encounter Medications at Time [...] R.N. - 01/17/2022 9:22 AM CDT SUBJECTIVE counter top maker visited with patient regarding her dismissal questions. OBJECTIVE Patient sitting up in bedside chair. Patient alert, pleasant and engaged in conversation. Patient expressing difficulty understanding the dismissal options. ASSESSMENT / PLAN NEON SIGN MECHANICwomens volleyball coach visited with patient regarding her questions with [...] Though patient wanting to contact her mom Lbiby, stating she knows she won't remember all the information. Patient contacted Libby via phone. womens volleyball coach introduced self and role to Libby. Advised [...] rehab and approvalfor insurance has been submitted. womens volleyball coach advised unsure where their process is at. [...] therapy time in comparison to inpatient rehab. womens volleyball coach advised will reach out to the team for more information and someone will return call to explain more about inpatient rehab. After leaving patient room, womens volleyball coach has learned patient's insurance has approved patient's admission to inpatient rehab. womens volleyball coach reached out to team, for request that someone speak to patient and patients mom about inpatient rehab. PLAN womens volleyball coach will continue to follow during hospitalization, assisting with a safe dismissal plan. Alberto Jiménez R.N. 01/17/22 Erika Alicea M.S., [facility]-SUPPORT STAFF - 01/17/2022 9:15 AM CDT Speech Language [...] Primary Mode of Expression: Verbal Primary Language: Cypriot Open Ended Questions: 100% accuracy Conversation: Impaired [...] her mother on speakerphone about role of SUPPORT STAFF services in addressing cognitive communication deficit in [...] Disorder: Moderate Plan Discharge Location: Inpatient rehab SUPPORT STAFF Ongoing Services: Ongoing formal Speech Pathology services [facility] Re[facility] Potential: Good Michael De Los Santos M.D., Ph.D. - 01/17/2022 9:11 AM CDT Facility Information: [facility] Physical Medicine and Rehabilitation Pre-Admission Screening Patient Information Patient Name: Mia Richardson [address]: [address] [place] [id number] Sex: Female Date of : 1970 Age: 51 y.o. 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 Thepatient underwent a stereotactic biopsy of a left temporal region of hyperintensity in November at [facility]. The pathology apparently revealed IDH wild [...] for acute inpatient rehabilitation. She requires close rand sewer oversight due to her complex medical condition [...] Adaptive Equipment: None Prior Function Level of [place]: Independent with ADLs and functional transfers Receives [...] with family Patient/Caregiver Goals: Return to home. [place] with ADL and IADL tasks. Required Treatments and Services: Rehabilitation Physician, Rehabilitation Nursing, Physical Therapy, Occupational Therapy, Speech Therapy, Recreational Therapy, Financial Assistant, It Analyst, Rehabilitation Psychology, Bowel and Bladder Management, Data Systems Analyst, and Blasting Helper Services Anticipated Services Upon Discharge Anticipated Interventions Anticipated Interventions: Physical Therapy, Occupational Therapy, Speech Therapy PT Projected Minutes/Day: 90 PT Projected Days/Week: 5 OT Projected Minutes/Day: 90 OT Projected Days/Week: 5 SUPPORT STAFF Projected Minutes/Day: 30 SUPPORT STAFF Projected Days/Week: 5 Rehabilitation nursing to manage: bowel and bladder function, medication management, patient / family goals, skin care, surgical incision, nutrition and fluid intake, pulmonary hygiene, pain control, safety Discharge Information Discharge information Projected Admission Date: 01/17/22 Barriers: Comorbidities Discharge Support: Family Estimated Length of Stay: 10 days Anticipated Discharge Destination: 01 - Home (private home/apartment, assisted living, detention, transitional living) Anticipated Services Upon Discharge Anticipated Services Upon Discharge: Outpatient Therapy Learning Assessment Questions Primary Learner Name: Mia Relationship: Patient Does the primary learner have any barriers to learning?: Reading What is the preferred language of the primary learner for medical teaching?: Cypriot Is an historical interpreter required?: No How does the primary learner prefer to learn new concepts?: Demonstration / Seeing, Doing, Listening Relationship: Patient Is an historical interpreter required?: No Assessment answers provided by?: Patient Information Brochures Given: Data Collection Information Summary for Patients in Inpatient Rehabilitation Facilities, Brain Rehabilitation [id number], Inpatient Rehabilitation Programs [id number] Michael De Los Santos M.D., Ph.D. Madiha Castro M.D. - 01/17/2022 6:44 AM CDT 9-746 Devlinmaber Mia [birth year] 51F Glioma Resection [id number] - S/p left temporoparietal crani on 01/10 for resection of Grade 3 astrocytoma, IDH wildtype, MGMT unmethylated. Preop symptoms: lethargic, not oriented, significant pain, nausea, word-finding difficulties, likely seizure. Under[place] biopsy and subtotal [place] 12[place] [facility] After surgery, she improved temporarily, but then [...] please page the Dr. Ivey service at [phone] Cici Hope, BLAIR - 01/16/2022 3:49 PM [...] 97.7 kg (01/09/2022) Current Weight: 88.9 kg [place] Body Weight (Calculated) : 60.3 kg BMI [...] 97.7 kg Estimated Needs: Total Calorie Needs: 6015-8316 kcals calories/day Method to Estimate Energy Needs: [place] (75% to Basal) Weight Used for Equation [...] about patient's nutritional care please contact pager [phone] on weekdays or [phone] on weekends/holidays. Pradeep Marquez MDIV - 01/16/2022 3:35 PM CDT Encounter: Spiritual Care Contact Situation: Blasting Helper visit following up from 01/14/22 bandage wrapping machine operator visit. Mia declined visit and requested stop back a different day. I affirmed preference. Plan: Will remain available for spiritual care as needed or requested. Chaplains can be contacted bypaging [phone] ([facility]) or [phone] ([facility]). Sona Ma O.T., O.T.D. - 01/16/2022 3:04 PM CDT Occupational Therapy [facility] Inpatient Progress Note SUBJECTIVE [...] Date: 01/09/22 Patient/Caregiver Goals: Return to home. [place] with ADL and IADL tasks. Patient Comments: [...] for hospitalization. For hosptial name, she reported [facility], but then put [facility] in [facility]. With cueing, she was able to correct to [facility] and accurately put [place] [facility], improved from completion during previous date. [place] Test [place] Test is a symbol cancellation test that [...] dressing, Assistance with meal preparation, Assistance with hospital chief financial officer, Assistance with transportation, Assistance with hous ekeeping, [...] Therapeutic exercise, Therapeutic modalities as needed, Orthosis [id number], Manual therapy Time Spent with Patient Therapeutic [...] M.D. - 01/16/2022 6:38 AM CDT 9-746 Nguyen Mia [birth year] 51F Glioma Resection [id number] - S/p left temporoparietal crani on 01/10 for resection of Grade 3 astrocytoma, IDH wildtype, MGMT unmethylated. Preop symptoms: lethargic, not oriented, significant pain, nausea, word-finding difficulties, likely seizure. Underwent biopsy and subtotal [place] 12[place]05 [place] [facility] After surgery, she improved temporarily, but then [...] something ludivina. For hosptial name, she reported [facility] and then with cues and times switched to [facility]. She put [place] for [facility] and [facility] for critical access hospital. She appeared to be perseverating on [...] dressing, Assistance with meal preparation, Assistance with hospital chief financial officer, Assistance with transportation, Assistance with hous ekeeping, [...] would like to pursue inpatient rehab at [facility]. Reviewed insurance disclosure information Acute inpatient rehabilitation admission planned for 01/17/2022 pending insurance approval. Erika Alicea M.S., [facility]-SUPPORT STAFF - 01/15/2022 10:20 AM CDT Speech Language [...] Primary Mode of Expression: Verbal Primary Language: Cypriot Open Ended Questions: 61-80% accuracy Conversation: Impaired [...] Disorder: Moderate Plan Discharge Location: Inpatient rehab SUPPORT STAFF Ongoing Services: Ongoing formal Speech Pathology services Duration of Treatment: [facility] stay Rehab Potential: Good Madiha Castro M.D. - 01/15/2022 7:01 AM CDT 9-746 DelvinamberMia 01/[birth year] 51F Glioma Resection [id number] - S/p left temporoparietal crani on 01/10 for resection of Grade 3 astrocytoma, IDH wildtype, MGMT unmethylated. Preop symptoms: lethargic, not oriented, significant pain, nausea, word-finding difficulties, likely seizure. Underwent biopsy and subtotal resection on 12/05 [place] [facility] After surgery, she improved temporarily, but then [...] will evaluate her today. She worked with PT/OT/SUPPORT STAFF yesterday. - Pathology came back as: GBM, [...] please page the Dr. Ivey service at [phone] [place] Fortune PSanjuanitaT. - 01/14/2022 2:55 PM [...] - 01/14/2022 11:50 AM CDT Occupational Therapy [facility] Inpatient Progress Note SUBJECTIVE [...] dressing, Assistance with meal preparation, Assistance with hospital chief financial officer, Assistance with transportation, Assistance with hous ekeeping, [...] Castro M.D. - 01/14/2022 7:21 AM CDT 9-416 Mia Cedillo [birth year] 51F Glioma Resection [id number] - POD#4 s/p left temporoparietal crani for resection of Grade 3 astrocytoma, IDH wildtype, MGMT unmethylated. Preop symptoms: lethargic, not oriented, significant pain, nausea, word-finding difficulties, likely seizure. Underwent biopsy and subtotal resection on 12/05 [place] [facility] After surgery, she improved temporarily, but then [...] Incision clean/dry/intact. - Na: 134-136 - Plan: PT/OT/SUPPORT STAFF, decadron taper, Keppra 1 g BID, diet/mobilization as tolerated, pain management as needed (Toradol PRN is available). For questions or concerns, please page the Dr. Ivey service at [phone] Marie Caballero O.T. - 01/13/2022 12:42 PM CDT Occupational Therapy [facility] Inpatient Progress Note SUBJECTIVE [...] and the need for further assessment. M-LISET Martiniquais Version A Score: 10/30 Domain scores: Attention: [...] dressing, Assistance with meal preparation, Assistance with hospital chief financial officer, Assistance with transportation, Assistance with hous ekeeping, [...] Therapeutic functional activity, Neuromuscular re-education, Gait training CLINICAL DATA COORDINATOR Visit Trackin Time Spent with Patient Therapeutic Interventions Neuromuscular Re-Education (min): 17 min Time Tracking Total Timed Units (min): 17 min Total Treatment Time (min): 17 min Kylie Roca P.T.ASanjuanita RDT Madiha Castro M.D. - 01/13/2022 7:18 AM CDT 9-055 Mia Cedillo [birth year] 51F Glioma Resection [id number] - POD#3 s/p left temporoparietal crani for resection of Grade 3 astrocytoma, IDH wildtype, MGMT unmethylated. Preop symptoms: lethargic, not oriented, significant pain, nausea, word-finding difficulties, likely seizure. Underwent biopsy and subtotal resection on 12/05 [place] [facility] After surgery, she improved temporarily, but then [...] with assistance. - Exam: oriented to self, [place], and [facility], CN 2-12 grossly intact, follows commands in all extremities with intact sensation, no pronator drift. Incision clean/dry/intact. - Na: last night was 137 (up from 130 in the afternoon), morning sodium still pending. - Plan: continue trending sodium, encourage oral intake, PT/OT/SUPPORT STAFF, decadron taper, Keppra 1 g BID. For questions or concerns, please page the Dr. Ivey service at [phone] Madiha Castro M.D. - 01/12/2022 7:06 AM CDT 4-017 Mia Cedillo [birth year] 51F Glioma Resection [id number] - POD#2 s/p left temporoparietal crani for resection of Grade 3 astrocytoma, IDH wildtype, MGMT unmethylated. Preop symptoms: lethargic, not oriented, significant pain, nausea, word-finding difficulties, likely seizure. Underwent biopsy and subtotal resection on 12/05 at [facility] After surgery, she improved temporarily, but then [...] restrict fluids if necessary, advance diet, UCO, PT/OT/SUPPORT STAFF, decadron taper, Keppra 1 g BID. Active Issues # Brain compression # Cerebral edema # Class 1 Obesity (BMI 30 to <35) ??? Malignant Neoplasm Of Brain (HCC) ??? Tumor Brain (HCC) For questions or concerns, please page the Dr. Ivey service at [phone] Erika Alicea M.S., [facility]-SUPPORT STAFF - 01/11/2022 2:25 PM CDT Attempted to see patient both and morning and afternoon for SUPPORT STAFF evaluation but patient was unable toawaken and demonstrate alertness necessary for examination. Madiha Castro M.D. - 01/11/2022 7:10 AM CDT 8-748 Mia Cedillo [birth year] 51F Glioma Resection [id number] - POD#1 s/p left temporoparietal crani for resection of Grade 3 astrocytoma, IDH wildtype, MGMT unmethylated. Preop symptoms: lethargic, not oriented, significant pain, nausea, word-finding difficulties, likely seizure. Underwent biopsy and subtotal resection on 12/05 [place] [facility] After surgery, she improved temporarily, but then [...] please page the Dr. Ivey service at [phone] RDT Amber Bailey Pharm.D., R.Ph. - 01/10/2022 10:23 AM CDT Pharmacist Progress Note 51 y.o. female admitted for left temporoparietal sterotactic craniotomy OBJECTIVE Home medications: ??? Held: None ??? Changed: Dexmethasone Prophylaxis: None ASSESSMENT / PLAN Pharmacotherapy Recommendations: 1. Heparin for DVT prophylaxis after OR 2. Steroid plan Amber Bailey PharmD, [facility] [id number] Madiha Castro M.D. - 01/10/2022 7:05 AM CDT 8-748 Mia Cedillo [birth year] 51F Glioma Resection [id number] - To OR today for left Grade 3 astrocytoma, IDH wildtype, MGMT unmethylated. Preop symptoms: lethargic, not oriented, significant pain, nausea, word-finding difficulties, likely seizure. Underwent biopsy and subtotal resection on 12/05 [place] [facility] After surgery, she improved temporarily, but then [...] her poor exam, she was transferred to [facility] and given hypertonic saline. Most recent sodium: [...] please page the Dr. Ivey service at [phone] Rashida North Pharm.D., R.Ph. - 01/09/2022 5:24 [...] y.o. 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 HISTORY OF PRESENT ILLNESS - PMH is largely unremarkable except for brief course of treatment with HCTZ for HTN in the past. - 11/29/[address] [facility] with intermittent word-finding difficulty. She [...] by Dr. Dunlap. Pathology was consistent with UTILIZATION COORDINATOR WHO grade 3 astrocytoma, IDH wildtype, MGMT [...] week. She could state she was in [place], in her home. She could name ring [...] y.o. female who presents for evaluation of UTILIZATION COORDINATOR WHO grade 3 astrocytoma, IDH wildtype by [...] classify this as a glioblastoma rather than UTILIZATION COORDINATOR WHO grade 3 astrocytoma. We will need [...] be implemented if thisis pursued. I did camp head counselor against use of antioxidants during radiation [...] Ms. Cedillo is a very pleasant 51-year-old, vueoa-rglc-uegxjpll woman with a medical history significant only for hypertension and obesity (BMI 31.1) who was enjoying her normal state of health until about a month ago (November 29, 2021) when she had the onset of intermittent difficulty finding her words.When she presented to the [facility], she was noted to have bruising on her forehead, and a seizure was suspected. She was begun on Keppra, and MRI the following day (images which I viewed in QREADS) revealed a multifocal T1 hypointensive and T2 hyperintensive mass involving the left cerebellum, temporal lobe, parietal lobe, thalamus, and hippocampus. She proceeded to undergo a bi opsy at [facility] on December 05 with pathology consistent with a WHO grade 3 astrocytoma, wild type, and MGMT unmethylated. Following her biopsy she has continued to have difficulty with word finding and ultimately underwent a left temporoparietal stereotactic craniotomy for resection of the tumor which on postoperative MRI imaging appears to be complete. Ms. Cedillo was able to begin participating in an xqi-kpf-qbmjd therapy program. She has done well but [...] but I believe it is outside of [place] and that she would have to ascend [...] basis, I proceeded to attempt a formal [facility] mental status examination and obtained the following [...] Tone: Upper and lower extremities 0/0. Coordination: Vhdywl-bm-zmen was -1/-1. Satellite maneuver showed the left [...] R.N. Referral Reason: Discharge Planning Primary Language: Cypriot Hub Borer Services Used: No Person(s) present during interview: [...] Communication: Can write, Talks, Understands speaking, Understands Cypriot, Reads Shopping: Independent Transportation: Independent to drive [...] Self Care ASSESSMENT / PLAN Assessment: The womens volleyball coach met with Mia Richardson to discuss her current hospitalization and home going needs. The patient was unaccompanied. The patient was a reliable historian. The role of womens volleyball coach was reviewed. The patient reviewed her prior level of care and support system. The patient receivessupport from her mother and extended family. The patient described her living environment as a apartment without elevator access with level entry. Housekeeping, grocery shopping, meal prep, and other household responsibilities have previously been completed by patient. womens volleyball coach discussed the patient's potential needs at dismissal based ontheir home setting, previous needs and responsibilities, homebound status, and relevant assessments with the patient. The patient is yet to be determined be safe and supported to return home when medically ready, pending medical course. Support will be provided by Libby. The patient demonstrated understanding when discussing her home going plans and anticipated needs. womens volleyball coach met with patient in hospital room. Patient in agreement to meet at this time. Patient sitting up in bedside chair. Patient alert, pleasant, eyes closed and engaged in conversation related to baseline activity/home environment and support. womens volleyball coach and patient spoke of anticipated discharge when medically stable. Discussing vision impairments and anticipated support needed to ensure safety at discharge. Discussed early in recovery with unknown plan at this time. womens volleyball coach/patient discussed care management will follow along and [...] medical course and recommendations from PT/OT. Advised womens volleyball coach will follow along during hospitalization and assist as needed. womens volleyball coach reinforced if concerns or questions arise related to dismissal planning, to notify bedside nurse of request to speak with womens volleyball coach for assistance. Patient verbalized understanding and agreement, denying any concerns or questions at this time. At this time, the care team has not identified any skilled post-hospital discharge care needs that require the assistance of the Care Management Team. Dismissal plan to be determined, pending medical course. After reviewing the patient's chart and meeting with the patient, the womens volleyball coach deemed the LACE+/readmission questions were not necessary. [...] be provided by family--to be determined. 3. womens volleyball coach recommended a shower seat and grab bars. 4. womens volleyball coach provided information regarding the dismissal process. 5. womens volleyball coach placed or requested the following hospital-based consult orders and/or referrals:None. 6. womens volleyball coach will continue to assess for homegoing needs with the interdisciplinary team. 7. womens volleyball coach encouraged the patient to reach out with any questions/concerns. Signed by: Alberto Jiménez R.N. 01/14/2022 Emma Arora M.S., CCC-SUPPORT STAFF - 01/14/2022 9:58 AM CDT Speech Language Pathology Communication/Cognitive Evaluation- Acute Care Session Type: Evaluation Length of session: 24 minutes SUBJECTIVE Referred By: RST Neurologic Surgery - [place] History: Ms. Cedillo is a right handed 51 y.o. female who was admitted to [facility] on 01/09/2022 left temporoparietal craniotomy for [...] Speech Voice: Within Normal Limits (WNL) Resonance (TAP DANCER Function): Within Normal Limits (WNL) Articulation: Within Normal Limits (WNL) Intelligibility: Intelligible Auditory Comprehension Yes/No Questions: Within Normal Limits (WNL) Commands: Impaired One Step Basic Commands: 3/3 Two Step Basic Commands: 2/3 Multistep Basic Commands: 1/3 Conversation Comprehension: Moderate Reading Comprehension Reading Status: Impaired Interfering Components: Attention Effective Techniques: Prescription glasses/contact lenses Verbal Expression Primary Mode of Expression: Verbal Primary Language: Cypriot Generative Naming/Word Fluency: 1-20% accuracy Open Ended [...] come back later Discharge Location: Inpatient rehab SUPPORT STAFF Ongoing Services: Ongoing formal Speech Pathology services Duration of Treatment: informerly [facility] stay Rehab Potential: Good Suman Zavaleta - 01/14/2022 9:00 AM CDTAssociated Order(s): IP CONSULT TO GOVERNMENT SALES MANAGER SOCIAL SERVICES Encounter: Follow up, spiritual care consult order [...] or requested. Chaplains can be contacted bypaging [phone] (Orthodox) or [phone] ([place]). Marie Caballero O.T. - 01/12/2022 1:57 PM CDT Occupational Therapy [facility] Inpatient Evaluation/Treatment SUBJECTIVE Referring/Attending Provider: Charles Ivey M.D. Patient's Name: Mia Richardson Reason for Referral: OT eval and treat- brain Medical Diagnosis: 1. Tumor Brain (HCC) 2. Malignant Neoplasm Of Brain (HCC) 3. Change Mental Status Payor: [facility] / Plan: [place] / [...] Ivey M.D., Ph.D.; Location: T [facility] OR ??? 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 Chantal Maria P.T., AdrianP.[place], [facility] - 01/12/2022 1:03 PM CDT Physical Therapy [facility] Inpatient Evaluation/Treatment SUBJECTIVE Referring/Attending Provider: Charles Ivey M.D. Patient's Name: Mia Richardson Reason for Referral: PT eval and treat- brain Medical Diagnosis: 1. Tumor Brain (HCC) 2. Malignant Neoplasm Of Brain (HCC) 3. Change Mental Status Payor: Sincerely / Plan: [place] / Product Type: PPO / PERTINENT MEDICAL / SURGICAL HISTORY: Patient Active Problem List Diagnosis ??? Malignant Neoplasm Of Brain (HCC) ??? Tumor Brain (HCC) Past Surgical History: Procedure Laterality Date ??? CRANIOTOMY - STEREOTACTIC Left 01/10/2022 Procedure: Asleep left temporoparietal stereotactic craniotomy tumor resection, speech mapping, supine position, intraoperative MRI, BK ultrasound.; Surgeon: Charles Ivey M.D., Ph.D.; Location: [facility] OR ??? CRANIOTOMY FOR TUMOR Left 12/05/2021 [...] [place] [facility] [place] 3 astrocytoma, IDH wildtype, MGMT [...] page the neuro critical care service pager [phone] for any questions or concerns regarding the [...] [place] [phone] if there are anyquestions or concerns. TOTAL [...] urgently for craniotomy. Significant Medical Comorbidities: # UTILIZATION COORDINATOR WHO grade 3 astrocytoma, IDH wildtype by [...] (cardiac risk <5%) Cardiovascular history: - Previous DC: None - CABG: None - Stress tests: [...] do to headache, nausea and vomiting DIAGNOSTICS [facility] Labs: Age 50-60 - ECG only: Sinus bradycardia ASSESSMENT / PLAN Ms. Mia Richardson is a 51 y.o. female with a past medical history as below who was admitted to theneurologic surgery service for left temporoparietal stereotactic craniotomy astrocytoma resection. Medicine consults was consulted for BERNICE for procedure 01/09/2022 # UTILIZATION COORDINATOR WHO grade 3 astrocytoma, IDH wildtype by [...] positioning, early mobilization, and cautious use of UTILIZATION COORDINATOR-acting medications. -- Hematologic risk assessment Bleeding risk: [...] page the medicine consult service pager at [phone] if there are any questions or concerns. Marysol Martinez M.D. Internal Medicine Resident, PGY-3 GIM Medicine Consults, service pager [phone] Charles Ivey M.D., Ph.D. - 01/09/2022 4:50 [...] temporal region of hyperintensity in November at [facility]. The pathology apparently revealed IDH wild [...] Ivey M.D., Ph.D. CT CT Job ID: [id number] documented in this encounter Nursing Notes Shilpa Burnette R.N. - 01/17/2022 11:50 AM CDT Shift Goals: Transfer to [facility] rehab today Identify possible barriers to meeting goals/advancing plan of care: confusion, impulsivity End of Shift Summary: Patient transferred to [facility]. Report given to JAMES Kirby. [...] Right Radial (Active) Placement Date/Time: 01/10/22 (c) 2054 Procedural Pause Completed: Yes Catheter Time Out [...] DIAGNOSIS Glioblastoma. POST-OPERATIVE DIAGNOSIS Glioblastoma. A first line production supervisor actively participated and was necessary for one or more of the following: opening,exposure and visualization during the case, maintaining hemostasis, wound closure resulting in its safe and expeditious completion. SURGEON: Charles Ivey M.D., Ph.D. NEUROSURGICAL PHYSICIAN ASSISTANT: Madiha Castro M.D. FELLOW: Johnathan Jones M.D., Ph.D. OPERATIVE NOTE NARRATIVE The patient was brought to operative room 216 at [facility] where appropriate venous and arterial access [...] and the images were transferred to the FanGager (MyBrandz) navigation system and merged with the original [...] Ivey M.D., Ph.D. CT CT Job ID: [id number] Brief Op Note - Madiha Castro M.D. [...] [place] [facility] [place] grade 3 astrocytoma, IDH wildtype, MGMT [...] subtotal [place] [facility] After surgery, she improved temporarily, but then [...] Clinical Support Oncology Vini Maki M.D., Ph.D. [address] [place] [phone] Hamida Ram L.G.S.W., M.S.W. 2022 Clinical Communication Admitting/Central Scheduling 07/19/2022 Appointment Radiology Vini Maki M.D., Ph.D. [address] [place] [phone] 07/22/2022 Comprehensive Visit Gastroenterology and Andres Mehta Hepatology Sebastian Lozada [address] [place] [phone] 07/23/2022 Lab Laboratory Medicine Vini Maki M.D., Ph.D. [address] [place] [phone] 07/23/2022 Office Visit Oncology Rebeca Valle P.A.-C., M.S. [address] [place] [phone] documented as of this encounter Procedures Procedure [...] M.D. LAB BLOOD ADD-ON Performing Organization Address City/State/[facility] Code Phon e Number [facility] - [address] [place], [place] [address] [facility] [place] [address] [facility] [address] Head Neck [...] stenosis , aneurysm, or focal injury. [facility] [place] and its proximal branch vessels [...] stenosis , aneurysm, or focal injury. [facility] [place] [employer] [place] and its proximal branch vessels [...] stenosis , aneurysm, or focal injury. [facility] [employer] [employer] [place] and its proximal branch vessels [...] stenosis , aneurysm, or focal injury. [facility] [place] [employer] [place] and its proximal branch vessels [...] Organization Address City/State/ZIP Code Phon e Number [facility] - [address] [place], [place] [address] [facility] [place] [address] [facility] [address] (ABNORMAL) Sodium (01/13/2022 6:44 AM CDT) athologist Signature Sodium, S 134 (L) 135 - 145 01/13/2022 DTL mmol/L 8:00 AM CDT Specimen Anatomical Collection Method Collection Time Receive d Time (Source) Location / / Volume Laterality Blood (Blood, 01/13/2022 6:44 AM 01/14/20 7:38 Venous) CDT AM CDT Madiha Castro M.D. LAB BLOOD ADD-ON Performing Organization Address City/[facility] Phon e Number [facility] - [address] [place], [place] [address] [place] [address] [facility] 200 [facility] Sodium (01/13/2022 12:19 AM CDT) athologist Signature Sodium, P 137 135 - 145 01/13/2022 1:07 DTL mmol/L AM CDT Specimen Anatomical Collection Method Collection Time Receive d Time (Source) Location / / Volume Laterality Blood (Blood, 01/13/2022 12:19 01/13/2022 Venous) AM CDT 12:35 AM CDT Madiha Castro M.D. LAB BLOOD ADD-ON Performing Organization Address City/[facility]/ZIP [facility] Phon e Number [facility] - [address] [place], [place] [address] [facility] [place] [address] (ABNORMAL) Sodium (01/12/2022 4:17 PM CDT) athologist Signature Sodium, P 130 (L) 135 - 145 01/12/2022 [facility] mmol/L 4:37 PM CDT Specimen Anatomical Collection Method Collection Time Receive d Time (Source) Location / / Volume Laterality Blood (Blood, 01/12/2022 4:17 PM 01/13/20 4:25 Venous) CDT PM CDT Madiha Castro M.D. LAB BLOOD ADD-ON Performing Organization Address City/[facility]/ZIP [facility] Phon e Number [facility] - [address] [place], [place] [address] [facility] [place] [address] (ABNORMAL) Basic Metabolic Panel (01/12/2022 4:35 [...] 01/12/2022 DTL 5:21 AM CDT BUN (Blood Urea 10 6 - 21 01/12/2022 DTL Nitrogen), S mg/dL 5:21 AM CDT Creatinine 0.70 0.59 - 01/12/2022 DTL 1.04 mg/dL 5:21 AM CDT eGFR-Non >90 >=60 01/12/2022 DTL Black/ mL/min/BSA 5:21 AM CDT Martiniquais Comment: ----ADDITIONAL INFORMATION---- Estimated GFR calculated using [...] Organization Address City/State/ZIP Code Phon e Number [facility] - [address] [place], [place] [address] [facility] [place] [address] [facility] [address] (ABNORMAL) Basic Metabolic [...] DTL Nitrogen), S mg/dL 10:49 PM CDT Creatinine 0.72 0.59 - 01/11/2022 DTL 1.04 mg/dL 10:49 PM CDT eGFR-Non >90 >=60 01/11/2022 DTL Black/ mL/min/BSA 10:49 PM CDT Martiniquais Comment: ----ADDITIONAL INFORMATION---- Estimated GFR calculated using [...] Organization Address City/State/ZIP Code Phon e Number [facility] - [address] [place], [place] [address] [facility] [place] [address] [facility] [address] EEG ROUTINE [...] DTL Nitrogen), S mg/dL 8:15 AM CDT Creatinine 0.82 0.59 - 01/11/2022 DTL 1.04 mg/dL 8:15 AM CDT eGFR-Non 83 >=60 01/11/2022 DTL Black/ mL/min/BSA 8:15 AM CDT Martiniquais Comment: ----ADDITIONAL INFORMATION---- Estimated GFR calculated using [...] M.D. LAB BLOOD ADD-ON Performing Organization Address City/[facility] Phon e Number [facility] - [address] [place], [place] [address] [facility] [place], [place] [address] [place] [address] Sodium (01/10/2022 8:14 PM CDT) P athologist Signature Sodium, P 139 135 - 145 01/10/2022 8:30 STMA mmol/L PM CDT Specimen Anatomical Collection Method Collection Time Receive d Time (Source) Location / / Volume Laterality Blood (Blood, 01/10/2022 8:14 PM 01/11/20 8:20 Venous) CDT PM CDT Madiha Castro M.D. LAB BLOOD ADD-ON Performing Organization Address City/State/[facility] Phon e Number [facility] - [address] [place], [place] [address] [facility] [place] [address] Patient Status (01/10/2022 2:06 PM CDT) P athologist Signature Temperature 36.0 37.0 deg C 01/10/2022 STMA 2:06 PM CDT FIO2 0.50 0.21=AIR 01/10/2022 [facility] 2:06 PM CDT Specimen Anatomical Collection Method Collection Time Receive d Time (Source) Location / / Volume Laterality Blood 01/10/2022 2:06 PM 05/19/202 2 2:06 CDT PM CDT Eileen Amezquita STEPDOWN NURSE, CUTTER FIRST, MNA LAB BLOOD NON ADD-ON Performing Organization Address City/[facility] Phon e Number [facility] - [address] [place], [place] [address] [facility] [place] [address] [facility] [address] [facility] Glucose, Whole Blood (01/10/2022 2:06 PM CDT) athologist Signature Glucose 118 70 - 140 01/10/2022 2:10 STMA mg/dL PM CDT Specimen Anatomical Collection Method Collection Time Receive d Time (Source) Location / / Volume Laterality Blood (Blood, 01/10/2022 2:06 PM 01/11/20 2:06 Arterial Line) CDT PM CDT Ana Vaz M.D. LAB BLOOD TROPONIN Performing Organization Address City/[facility] Phon e Number [facility] - [address] [place], [place] [address] [facility] [place] [address] [facility] [address] Potassium, Blood (01/10/2022 2:06 PM CDT) athologist Signature Potassium, B 4.1 3.6 - 5.2 01/10/2022 [facility] mmol/L 2:10 PM CDT Specimen Anatomical Collection Method Collection Time Receive d Time (Source) Location / / Volume Laterality Blood (Blood, 01/10/2022 2:06 PM 01/11/20 2:06 Arterial Line) CDT PM CDT Ana Vaz M.D. LAB BLOOD NON ADD-ON Performing Organization Address City/[facility]/ZIP [facility] Phon e Number [facility] - [address] [place], [place] [address] [facility] [place], [place] [address] [place] [address] [address] [facility] Sodium, B (01/10/2022 2:06 PM CDT) athologist Signature Sodium, B 138 135 - 145 01/10/2022 2:10 STMA mmol/L PM CDT Specimen Anatomical Collection Method Collection Time Receive d Time (Source) Location / / Volume Laterality Blood (Blood, 01/10/2022 2:06 PM 01/11/20 22 2:06 Arterial Line) CDT PM CDT Ana Vaz M.D. LAB BLOOD NON ADD-ON Performing Organization Address City/[facility] Phon e Number [facility] - [address] [place], [place] [address] [place] [address] Laboratories-[address] Calcium, Ionized (01/10/2022 2:06 PM CDT) athologist Signature Calcium, 4.95 4.65 - 5.30 01/10/2022 [facility] Ionized, B mg/dL 2:10 PM CDT Specimen Anatomical Collection Method Collection Time Receive d Time (Source) Location / / Volume Laterality Blood (Blood, 01/10/2022 2:06 PM 01/11/20 2:06 Arterial Line) CDT PM CDT Ana Vaz M.D. LAB BLOOD NON ADD-ON Performing Organization Address City/[facility] Phon e Number [facility] - [address] [place], [place] [address] [facility] [place] [address] [facility]-[address] (ABNORMAL) Blood Gas with Coox, Arterial [...] LAB BLOOD NON ADD-ON Performing Organization Address City/[facility] Phon e Number [facility] - [address] [place] [address] Sodium, B (01/10/2022 12:21 PM CDT) athologist Signature Sodium, B CANCELED 135 - 145 01/10/2022 [facility] mmol/L 8:14 PM CDT Comment: REVISED RESULTS ----PREVIOUSLY REPORTED ---- 138, Flagged as: Normal (Reported 01/10/2022 12:24) Specimen Anatomical Collection Method Collection Time Receive d Time (Source) Location / / Volume Laterality Blood 01/10/2022 12:21 01/10/2022 PM CDT 12:21 PM CDT Narrative [facility] - 01/10/2022 8:14 PM CDT Sodium, B was cancelled on 01/10/2022 at 20:14; RBS update. Eileen Amezquita STEPDOWN NURSE, CUTTER FIRST, MNA LAB BLOOD NON ADD-ON Performing Organization Address City/[facility] Phon e Number [address] Patient Status (01/10/2022 12:21 PM CDT) athologist Signature FIO2 0.50 0.21=AIR 01/10/2022 12:21 STMA PM CDT Specimen Anatomical Collection Method Collection Time Receive d Time (Source) Location / / Volume Laterality Blood 01/10/2022 12:21 01/10/2022 PM CDT 12:21 PM CDT Eileen Amezquita STEPDOWN NURSE, CUTTER FIRST, MNA LAB BLOOD NON ADD-ON Performing Organization Address City/[facility]/ZIP Code Phon e Number [facility] - [address] [place], [place] [address] [place] [address] [facility] [address] Glucose, Whole Blood (01/10/2022 12:21 PM CDT) athologist Signature Glucose 136 70 - 140 01/10/2022 [facility] mg/dL 12:24 PM CDT Specimen Anatomical Collection Method Collection Time Receive d Time (Source) Location / / Volume Laterality Blood (Blood, 01/10/2022 12:21 01/10/2022 Arterial Line) PM CDT 12:21 PM CDT Ana Vaz M.D. LAB BLOOD TROPONIN Performing Organization Address City/[facility]/ZIP Code Phon e Number [facility] - [address] [place], [place] [address] [facility] [place] [address] [facility] [address] Potassium, Blood (01/10/2022 12:21 [...] Organization Address City/State/ZIP Code Phon e Number [facility] - [address] [place], [place] [address] [place] [address] [facility] [address] Calcium, Ionized (01/10/2022 12:21 [...] Organization Address City/State/ZIP Code Phon e Number [facility] - [address] [place], [place] [address] [facility] [place] [address] [facility] 200 [facility] (ABNORMAL) Blood Gas with Coox, Arterial (01/10/2022 [...] Organization Address City/State/ZIP Code Phon e Number [facility] - [address] [place], [place] [address] [place] [address] [facility] [address] Surgical Pathology, Frozen Lab (01/10/2022 12:03 PM CDT) Component Value Ref Test Analysis Performed At [facility] gist Range Method Time Signature 01/14/2022 [facility] 5:24 PM CDT Participated in Luz WilsonS -Pathology Fellow 01/14/2022 [facility] the Lashon Talley M.D.-Pathology Resident 5:24 PM CDT Interpretation Liliam Burr M.D. -Pathology Resident Report Bryanna Sanchez M.D. 01/14/2022 [facility] electronically 5:24 PM CDT signed by I verify that I have examined all relevant slides/materials for the specimen(s) and rendered or confirmed the diagnosis. Seen in consultation with: Felisha Silveira M.D., Ph.D. Frozen A. ??Brain, left temporal lesion, smears: ??High-grade glioma. 01/14/2022 [facility] Intraoperative 5:24 PM CDT Report Signed by Bryanna Sanchez M.D. 01/10/2022 5:19 PM Gross Description A. ??Received fresh labeled left brain temporal lesion is 01/14/2022 [facility] a 5:24 PM CDT 5.9 x 5.3 x 2.8 cm portion of brain with extensive hemorrhage. ??Smears prepared. ??Budget Record Clerk tissue submitted for permanent sections. ??A portion of tissue is collected for potential future ancillary studies. ??After clinical evaluation, residual tissue is procured for IRB [id number]. ??Grossed by Lashon Talley M.D.-Pathology Resident. B. ??Received fresh labeled left stereotactic tumor core is a 1.2 x 0.8 x 0.6 cm portion of brain. ??All submitted for permanent sections. ??Grossed by Jose De La Paz, SAMMI([facility]). C. ??Received fresh labeled left temporal brain lesion is a 3 x 3 x 0.5 cm aggregate of brain tissue admixed with blood. All submitted for permanent sections. ??After clinical evaluation, residual tissue is procured for IRB [id number]. Grossed by Jose Johnson PA([facility]). D. ??Received fresh within three CUSA traps labeled left temporal brain lesion cusa socks is a 6 x 6 x 1 cm aggregate of friable fragments of brain tissue admixed with blood. ??Budget Record Clerk tissue submitted for permanent sections. ??After clinical evaluation, residual tissue is procured for IRB [id number]. ??Grossed by Jose Johnson PA([facility]). 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 See comment. 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 The biopsy specimen lacked microvascular proliferation and tumor necrosis. By immunohistochemistry, the tumor cells were negative for IDH1-R132H and showed retained ATRX expression. Next-generation sequencing panel performed at 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 Specimen (Source) Anatomical Collection Method Collection Time Re ceived Time Location / / Volume Laterality Tissue (Brain, 01/10/2022 12:03 Left) PM CDT Comment: IRB #[id number] Tissue (Brain, Left) 01/10/2022 2:36 PM C DT Comment: IRB #[id number] Tissue (Brain, Left) 01/10/2022 2:57 PM C DT Comment: IRB #[id number] Tissue (Brain, Left) 01/10/2022 3:07 PM C DT Comment: IRB #[id number] Narrative This result has an attachment that is no t available. Charles Ivey M.D., Ph.D. LAB SURG PATH ORDERABLES Performing Organization Address City/[facility] Phon e Number [facility] - [address] Patient Status (01/10/2022 11:53 AM CDT) P athologist Signature FIO2 0.50 0.21=AIR 01/10/2022 11:53 STMA AM CDT Specimen Anatomical Collection Method Collection Time Receive d Time (Source) Location / / Volume Laterality Blood 01/10/2022 11:53 01/10/2022 AM CDT 11:53 AM CDT Eileen Amezquita STEPDOWN NURSE, CUTTER FIRST, MNA LAB BLOOD NON ADD-ON Performing Organization Address City/[facility] Phon e Number [facility] - [address] [place] [address] [facility] Glucose, Whole Blood (01/10/2022 11:53 AM CDT) athologist Signature Glucose 135 70 - 140 01/10/2022 [facility] mg/dL 11:55 AM CDT Specimen Anatomical Collection Method Collection Time Receive d Time (Source) Location / / Volume Laterality Blood (Blood, 01/10/2022 11:53 01/10/2022 Arterial Line) AM CDT 11:53 AM CDT Luda Galindo M.D. LAB BLOOD TROPONIN Performing Organization Address City/State/ZIP Code Phon e Number [facility] [address] [place], [place] [address] [place] [address] [facility] 200 [facility] Potassium, Blood (01/10/2022 11:53 AM CDT) athologist Signature Potassium, B 3.8 3.6 - 5.2 01/10/2022 [facility] mmol/L 11:55 AM CDT Specimen Anatomical Collection Method Collection Time Receive d Time (Source) Location / / Volume Laterality Blood (Blood, 01/10/2022 11:53 01/10/2022 Arterial Line) AM CDT 11:53 AM CDT Luda Galindo M.D. LAB BLOOD NON ADD-ON Performing Organization Address City/State/ZIP Code Phon e Number [facility] - [address] [place], [place] [address] [facility] [place] [address] [facility] [address] [facility] Sodium, B (01/10/2022 11:53 AM CDT) athologist Signature Sodium, B 137 135 - 145 01/10/2022 [facility] mmol/L 11:55 AM CDT Specimen Anatomical Collection Method Collection Time Receive d Time (Source) Location / / Volume Laterality Blood (Blood, 01/10/2022 11:53 01/10/2022 Arterial Line) AM CDT 11:53 AM CDT Luda Galindo M.D. LAB BLOOD NON ADD-ON Performing Organization Address City/State/ZIP Code Phon e Number [facility] - [address] [place], [place] [address] [place] [address] [facility] 200 [facility] Calcium, Ionized (01/10/2022 11:53 AM CDT) athologist [...] Address City/State/ZIP Code Phon e Number [facility] - [address] [place] [address] [place] [address] Laboratories-[address] (ABNORMAL) Blood Gas with Coox, Arterial [...] LAB BLOOD NON ADD-ON Performing Organization Address City/[facility] Hospital/ZIP [facility] Phon e Number [facility] - [address] [place], [place] [address] [place] [address] [facility] [address] Glucose, Whole Blood (01/10/2022 9:02 AM CDT) athologist Signature Glucose 127 70 - 140 01/10/2022 9:04 STMA mg/dL AM CDT Specimen Anatomical Collection Method Collection Time Receive d Time (Source) Location / / Volume Laterality Blood (Blood, 01/10/2022 9:02 AM 01/11/20 9:02 Arterial Line) CDT AM CDT Ana Vaz M.D. LAB BLOOD TROPONIN Performing Organization Address City/[facility] Phon e Number [facility] - [address] [place], [place] [address] [place] [address] [facility] [address] Potassium, Blood (01/10/2022 9:02 AM CDT) athologist Signature Potassium, B 4.1 3.6 - 5.2 01/10/2022 STMA mmol/L 9:04 AM CDT Specimen Anatomical Collection Method Collection Time Receive d Time (Source) Location / / Volume Laterality Blood (Blood, 01/10/2022 9:02 AM 01/11/20 9:02 Arterial Line) CDT AM CDT Ana Vaz M.D. LAB BLOOD NON ADD-ON Performing Organization Address City/[facility] Phon e Number [facility] - [address] [place], [place] [address] [facility] [place] [address] [facility] [address] (ABNORMAL) Sodium, B (01/10/2022 9:02 AM CDT) P athologist Signature Sodium, B 129 (L) 135 - 145 01/10/2022 STMA mmol/L 9:04 AM CDT Specimen Anatomical Collection Method Collection Time Receive d Time (Source) Location / / Volume Laterality Blood (Blood, 01/10/2022 9:02 AM 01/11/20 9:02 Arterial Line) CDT AM CDT Ana Vaz M.D. LAB BLOOD NON ADD-ON Performing Organization Address City/[facility] Phon e Number [facility] - [address] [place], [place] [address] [place] [address] Laboratories-[address] Calcium, Ionized (01/10/2022 9:02 AM CDT) athologist Signature Calcium, 4.89 4.65 - 5.30 01/10/2022 STMA Ionized, B mg/dL 9:04 AM CDT Specimen Anatomical Collection Method Collection Time Receive d Time (Source) Location / / Volume Laterality Blood (Blood, 01/10/2022 9:02 AM 01/11/20 9:02 Arterial Line) CDT AM CDT Ana Vaz M.D. LAB BLOOD NON ADD-ON Performing Organization Address City/[facility] Phon e Number [facility] - [address] [place], [place] [address] [place] [address] (ABNORMAL) Blood Gas with Coox, Arterial [...] LAB BLOOD NON ADD-ON Performing Organization Address City/[facility] Phon e Number [facility] - [address] [place], [place] [address] [facility] [place] [address] Type and Screen (with reflex Antibody ID) (01/10/2022 8:55 AM CDT) [facility] Method Time Signature ABORh O Neg Not 01/10/2022 STRM applicable 9:48 AM CDT Antibody Negative Negative 01/10/2022 STRM Screen 9:59 AM CDT Type & Screen 01/13/2022 01/10/2022 STRM Expiration 23:59 9:48 AM CDT Testing [place] DEFAULT 01/10/2022 STRM Location 9:04 AM CDT Specimen Anatomical Collection Method Collection Time Receive d Time (Source) Location / / Volume Laterality Blood (Blood, 01/10/2022 8:55 AM 01/11/20 9:04 Arterial Line) CDT AM CDT Resulting Agency Comment Drawn in [id number] by [email or web address] Ana Vaz M.D. LAB BLOOD BANK TEST ORDERABL ES Performing Organization Address [facility] Phon e Number [facility] - [address] [place], [place] [address] [facility] [place] [address] (ABNORMAL) Sodium (01/10/2022 6:33 AM CDT) athologist Signature Sodium, S 129 (L) 135 - 145 01/10/2022 DTL mmol/L 7:19 AM CDT Specimen Anatomical Collection Method Collection Time Receive d Time (Source) Location / / Volume Laterality Blood (Blood, 01/10/2022 6:33 AM 01/11/20 7:07 Venous) CDT AM CDT Madiha Castro M.D. LAB BLOOD ADD-ON Performing Organization Address City/[facility] Phon e Number [facility] - [address] [place], [place] [address] [place] [address] (ABNORMAL) Sodium (01/10/2022 12:57 AM CDT) athologist Signature Sodium, S 130 (L) 135 - 145 01/10/2022 DTL mmol/L 1:43 AM CDT Specimen Anatomical Collection Method Collection Time Receive d Time (Source) Location / / Volume Laterality Blood (Blood, 01/10/2022 12:57 01/10/2022 1:26 Venous) AM CDT AM CDT Madiha Castro M.D. LAB BLOOD ADD-ON Performing Organization Address City/[facility] Code Phon e Number [facility] - [address] [place], [place] [address] [place] [address] Osmolality, Urine (01/09/2022 9:35 PM CDT) athologist Signature Osmolality, U 707 150 - 1150 01/09/2022 DTL mOsm/kg 10:42 PM CDT Specimen Anatomical Collection Method Collection Time Receive d Time (Source) Location / / Volume Laterality Urine (Urine, 01/09/2022 9:35 PM 01/10/20 22 Catheter) CDT 10:12 PM CDT Madiha Castro M.D. LAB URINE ORDERABLES Performing Organization Address City/[facility]/ZIP [facility] Phon e Number [facility] - [address] [place], [place] [address] [place] [address] Laboratories-[address] Sodium, Random, Urine (01/09/2022 9:35 PM [...] Organization Address City/State/ZIP Code Phon e Number [address] [place] [id number] [facility]-[address] (ABNORMAL) Basic Metabolic Panel (01/09/2022 8:01 [...] 01/09/2022 STMA 8:26 PM CDT BUN (Blood Urea 16 6 - 21 01/09/2022 STMA Nitrogen), P mg/dL 8:26 PM CDT Creatinine 0.69 0.59 - 01/09/2022 STMA 1.04 mg/dL 8:26 PM CDT eGFR-Black/Afri >90 >=60 01/09/2022 STMA can Martiniquais mL/min/BSA 8:26 PM CDT Comment: ----ADDITIONAL INFORMATION---- [...] Organization Address City/State/ZIP Code Phon e Number [facility] - [address] [place] [address] [place] [address] Laboratories-[facility] 200 [facility] SARS Coronavirus 2, RNA, Rapid POC, V Asymptomatic (01/09/2022 7:24 PM CDT) [facility] Method Time Signature SARS Undetected Undetected 01/09/2022 DTLR Coronavirus-2 7:47 PM CDT , RNA, Rapid POC, V Comment: Negative for SARS-CoV-2. The Anctu COVID-19 test is a molecular watson t for SARS-CoV-2, the virus that causes COVID- 19. A Negative result means that the Anctu COV ID-19 test did not detect SARS-CoV-2 virus in your sample. Anctu COVID-19 test uses the [employer] Mo nitoring System. This test has received Emergency Use Authorization (EUA) by the U.S. Food and Drug Administration (FDA) and is used per man ufacturer instructions. Performance characteristic s were verified by [facility] in a manner consistent with CLIA requirements. Fact sheets for this Emerg ency Use Authorization (EUA) can be found at the following links: Providers: https://Trigemina.com/documentation/prov iders.pdf Patients: https://Trigemina.com/documentation/tylor ents.pdf SARS Coronavirus 2, Source Nasopharynx DEFAULT 01/09/2022 7:47 PM CDT DTLR Specimen Anatomical Collection Method Collection Time Receive d Time (Source) Location / / Volume Laterality Varies 01/09/2022 7:24 PM 7:24 (Nasopharynx) CDT PM CDT Christina Tai P.A.-C., M.S. LAB MICROBIOLOGY - GENERAL ORDERABLES Performing Organization Address City/[facility] Phon e Number PERFORMING LABS, [place] [address] INTERFACE Ref Interface 200 [facility] DTLR Performing Labs, [place] [address] Interface 200 [facility] (ABNORMAL) CBC without Differential (01/09/2022 6:05 PM CDT) [facility] gist Method Time Signature Hemoglobin 12.2 [...] M.S. LAB BLOOD ADD-ON Performing Organization Address City/State/[facility] Phon e Number [facility] - [address] [place], [place] [address] [facility] [place] [address] [facility] [address] [facility] Hemoglobin A1c (01/09/2022 5:58 PM CDT) athologist Signature Hemoglobin A1c, 5.1 4.0 - 5.6 01/09/2022 DTL B % 7:58 PM CDT Specimen Anatomical Collection Method Collection Time Receive d Time (Source) Location / / Volume Laterality Blood (Blood, 01/09/2022 5:58 PM 01/10/20 22 7:40 Venous) CDT PM CDT Marysol Martinez M.D. LAB BLOOD ADD-ON Performing Organization Address City/State/ZIP Code Phon e Number [facility] - [address] [place], [place] [address] [facility] [place] [address] Laboratories-[facility] [address] [facility] ECG 12 Lead (01/09/2022 4:44 PM CDT) athologist Signature Ventricular Rate 54 BPM MUSE ECG/Min DE Interval 138 ms MUSE QRSD Interval 86 ms MUSE QT Interval 424 ms MUSE QTC Interval 402 ms MUSE P [place] 27 degrees MUSE R [place] 44 degrees MUSE T Wave [place] 54 degrees MUSE Specimen Anatomical Collection Method Collection Time Receive d Time (Source) Location / / Volume Laterality 01/09/2022 4:44 PM 4:45 CDT PM CDT Impressions MUSE - [...] P.A.-C., M.S. ECG ORDERABLES Performing Organization Address City/[facility]/ZIP Code Phon e Number MUSE MUSE NA documented in this encounter Visit Diagnoses Diagnosis Tumor Brain (HCC) - Primary Tumor Brain (HCC) Malignant Neoplasm Of Brain (HCC) Change Mental [...] intravenous, Once in imaging, contrast, Starting on [place] 01/13/22 at 1451, For 1 dose, Imaging [...] 100 mL/hr, intravenous, CDT Continuous, Starting on Fri01/10/22 at 2045, For 10 hours Rate/Dose Verify [...] As needed, respirat ory depression, Starting on Fri01/10/22 at 1952, For respiratory rate less than [...] (TYLENOL) 0034 (Given - Provider: Maggie Garces R.N.)0525 (Given - Provider: Maggie Garces R.N.)1234 (Given - Provider: Tutu QuinteroN.)1709 (Given - Provider: Amelie Gayle RSanjuanitaNSanjuanita) 0100 (Given - Provider: Luda Yu RSanjuanitaN.)0506 (Given - Provider: Tutu RobertsN.)1235 (Given - Provider: Tutu QuinteroNSanjuanita)1823 (Given - Provider: Hattie Baldwin RSanjuanitaNSanjuanita) 0010 (Given - Provider: Beryl Hyde RSanjuanitaNSanjuanita)0622 (Given - Provider: Beryl Orozco R.N.)1133 (Given - Provider: Shilpa Burnette RGiovani.) 1,000 mg, oral, Every 6 hours, First [...] Garces R.N.)0952 (Given - Provider: Shilpa Burnette R.N.)1648 (Given - Provider: Amelie Gayle RSanjuanitaN.)2140 (Given - Provider: Amelie Gayle R.N.) 0334 (Given - Provider: Luda ramesh RSanjuanitaN.)0902 (Given - Provider: Shilpa Burnette R.N.)1647 (Given - Provider: Tutu HernandezNSanjuanita)213 (Given - Provider: Hattie Baldwin R.N.) 0402 (Given - Provider: Beryl Orozco RSanjuanitaN.)0911 (Given - Provider: Tutu QuinteroNSanjuanita) 3 mg, oral, Every 6 hours, First dose on Fri01/15/22 at 0430, Fo r 4 days levETIRAcetam tablet 1,000 mg (KEPPRA) 0952 (Given - P rovider: Tutu QuinteroN.)214 (Given - Provider: Amelie Gayle R.N.) 0901 (Given - Provider: Shilpa Burnette R.N.)213 (Given - Provider: Hattie Baldwin R.N.) 0911 (Given - Provider: Tutu QuinteroNSanjuanita) 1,000 mg, oral, 2 times daily, First dose on 01/12/[address] tablet 40 mg (PROTONIX) 0616 (Given - Provider: Maggie Garces RSanjuanitaNSanjuanita) 0607 (Given - Provider: Tutu RobertsNSanjuanita) 0622 (Given - Provider: Beryl Orozco RSanjuanitaNSanjuanita) [...] 4-6 of 10, Starting on Fri01/10/22 at 195 polyethylene glycol powder packet 17 g (MIRALAX) [...] 4-6 of 10, Starting on Fri01/10/22 at 195 Or oxyCODONE IR tablet 10 mg (ROXICODONE)Jump to med 10 mg, oral, Every 4 hours PRN, severe p ain or score 7-10 of 10, or for pain greater than comfort goal, Starting on Fri01/10/22 at 1951 documented in this encounter Additional Health Concerns Infection Onset Date Last Indicated Resolved Time COVID19 Pending 01/09/2022 01/09/2022 01/09/2022 7:47 PM CDT documented as of this encounter
--- OUTSIDE RECORDS SUMMARY | 2022-06-19 11:43 | XMS_ITS | Encounter Summary ---
:1970 Author Organization [facility] Address [address] [place] [address] Care Team Providers Name Role Phone Unavailable Primary Care Provider Unavailable Reason for Visit Auth/Cert Specialty Diagnoses / Procedures Referred By Contact Refer red To Contact Diagnoses Malignant Neoplasm Of Brain (HCC) Procedures OR CRANIOT SUBDURAL IMPL ELECTRODE OR MAPPING CORTICAL INITIAL HR Awake left temporoparietal stereotactic craniotomy tumor resection, speech mapping, intraop MRI, supine position. Referral ID Status Reason Start Date Expiration Date Visits Requ ested Visits Authorized [id number] 1 1 Encounter Details Date Type Department Care Team Description 01/10/2022 Hospital Encounter Department of Ivey, Charles Malign ant Neoplasm Radiology, Rhona Ojeda M.D., Ph.D. 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 Sex [...] Clinical Support Oncology Vini Maki M.D., Ph.D. [address] [place] [phone] Hamida Ram L.G.S.W., M.S.W. 2022 Clinical Communication Admitting/Central Scheduling 07/19/2022 Appointment Radiology Vini Maki M.D., Ph.D. [address] [place] [address] [phone] 07/22/2022 Comprehensive Visit Gastroenterology and Andres Mehta Hepatology Sebastian Lozada [address] [place] [address] [phone] 07/23/2022 Lab Laboratory Medicine Vini Maki M.D., Ph.D. [address] [place] [address] [phone] 07/23/2022 Office Visit Oncology Rebeca Valle P.A.-C., M.S. [address] [place] [phone] documented as of this encounter Procedures Procedure [...] CONTRAST COMPARISON: Multiple prior MRIs of [facility] most recently 01/09/2022 CLINICAL: History of [...] AST COMPARISON: Multiple prior MRIs of the [facility] most recently 01/09/2022 CLINICAL: History of [...] soft tissues. IMPRESSION: Interval repeat left temporoparietal broomcorn scraper niotomy and resection of left temporoparietal region [...]
--- OUTSIDE RECORDS SUMMARY | 2022-06-19 11:43 | XMS_ITS | Encounter Summary ---
:1970 Author Organization [facility] Address [address] [place] [address] Care Team Providers Name Role Phone Unavailable Primary Care Provider Unavailable Reason for Referral MRI/CAT/PET Scan (Routine) - Closed Specialty Diagnoses / Procedures Referred By Contact Refer red To Contact Radiology Diagnoses Malignant Neoplasm Of Brain (HCC) Charles Ivey M.D., [facility] Procedures MR Stereotactic Frameless Ph.D. [address] [place] [phone] Referral ID Status Reason Start Date Expiration Date Visits Requ ested Visits Authorized [id number] Closed 01/09/2022 01/09/2023 1 1 Reason for Visit Auth/Cert Specialty Diagnoses / Procedures Referred By Contact Refer red To Contact Diagnoses Malignant Neoplasm Of Brain (HCC) Procedures CO CRANIOT SUBDURAL IMPL ELECTRODE CO MAPPING CORTICAL INITIAL HR Awake left temporoparietal stereotactic craniotomy tumor resection, speech mapping, intraop MRI, supine position. Referral ID Status Reason Start Date Expiration Date Visits Requ ested Visits Authorized [id number] 1 1 Encounter Details Date Type Department Care Team Description 01/10/2022 Hospital Encounter Department of Charles Ivey Malign ant Neoplasm RadiologyRhona M.D., Ph.D. 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 Sex [...] Oncology Vini Maki M.D., Ph.D. [address] [place] [phone] Hamida Ram L.G.S.W., M.S.W. 2022 Clinical Communication Admitting/Central Scheduling 07/19/2022 Appointment Radiology Vini Maki M.D., Ph.D. [address] [place] [phone] 07/22/2022 Comprehensive Visit Gastroenterology and Andres Mehta Hepatology Sebastian Lozada [address] [place] [phone] 07/23/2022 Lab Laboratory Medicine Vini Maki M.D., Ph.D. [address] [place] [phone] 07/23/2022 Office Visit Oncology Rebeca Valle P.A.-C., M.S. [address] [place] [phone] documented as of this encounter Procedures Procedure [...] centrally necrotic intra-axial mass from the left dbgpmas-snbvpcd-bguaghigz region. There is some fluid and gas [...] of the left lateral ventricle. 1 cm gosf-ia-ihfwy mi dline shift at the level of [...] centrally necrotic intra-axial mass from the left leubtkk-oqdfdqv-hhghbqxlc region. There is some fluid and gas [...] of the left lateral ventricle. 1 cm acjo-ow-mpcco mi dline shift at the level of [...]
--- OUTSIDE RECORDS SUMMARY | 2022-06-19 11:43 | XMS_ITS | Encounter Summary ---
:1970 Author Organization [facility] Address [address] [place] [address] Care Team Providers Name Role Phone Unavailable Primary Care Provider Unavailable Reason for Visit Auth/Cert Specialty Diagnoses / Procedures Referred By Contact Refer red To Contact Diagnoses Malignant Neoplasm Of Brain (HCC) Procedures VA CRANIOT SUBDURAL IMPL ELECTRODE VA MAPPING CORTICAL INITIAL HR Awake left temporoparietal stereotactic craniotomy tumor resection, speech mapping, intraop MRI, supine position. Referral ID Status Reason Start Date Expiration Date Visits Requ ested Visits Authorized [id number] 1 1 Encounter Details Date Type Department Care Team Description 01/10/2022 Surgery RST ROMB MAIN OR Charles Ivey, Asleep left [address] [facility] Sebastian, Ph.D. temporoparietal [place], [place] [address] [facility] stereotactic craniotomy [id number] [place], [place] tumor resection, speech [phone] [phone] mapping, supine position, intraoperative MRI, BK [...] 01/07/2022 organizations such as hoahaoism groups, unions, [place] or athletic groups, or school groups? How [...] completed or the highest Maulik, MEd, ADMINISTRATIVE ASSISTANT RECEPTIONIST, MOISE) degree you have received? Sex Assigned [...] AM CDT DISCHARGE SUMMARY BRIEF OVERVIEW Hospital: [facility] Discharge Provider: Charles Ivey M.D. Primary Team: T Neurologic Surgery - Loni No primary care [...] Benjamin T, M.D., Ph.D.Marisol Avilez, Ph.D., L.P. [facility] ROMB OR DISCHARGE DISPOSITION Rehab Facility [62] ACTIVE ISSUES REQUIRING FOLLOW UP OUTPATIENT FOLLOW UP Scheduled Appointments 01/25/2022 12:00 PM Evangelist Salinas M.D., Ph.D. Neurological Surgery 01/31/2022 8:20 AM Rebeca Valle P.A.-C., M.S. Oncology 01/31/2022 10:00 AM Iban De La Cruz M.D. Radiation Oncology 01/31/2022 2:15 PM Sejal Resendiz M.S., [facility] Clinical Genomics 02/07/2022 1:20 PM Farzana Allen M.D. Oncology 04/04/2022 8:20 AM MR ROCN LO MR 69 3T Radiology 04/04/2022 1:00 PM Charles Ivye M.D., Ph.D. Neurological Surgery For appointment details refer to your Patient Appointment Guide. TEST RESULTS PENDING AT DISCHARGE Pending Labs Order Current Status Pathology Exempt Research Only Collected (01/10/22 9847) DETAILS OF HOSPITAL STAY REASON FOR ADMISSION Tumor Brain (HCC) HOSPITAL COURSE Mia Richardson is a 51 y.o. female with a PMHx of hypertension and recent biopsy and subtotal resection on 12/05/2021 at [facility] for grade 3 astrocytoma, IDH wildtype, MGMT [...] biopsy and subtotal resection on 12/05 at [facility]. After surgery, she improved temporarily, but then [...] CONSULT TO CARE MANAGEMENT IP CONSULT TO SOIL CONSERVATION TECHNICIAN PASSENGER REPRESENTATIVE IP CONSULT TO PHYSICAL MEDICINE & REHABILITATION [...] visit with Dr. Ivey, or his Physician's Vocational Rehabilitation Administrator, Eileen Tai, in approximately 3 months. These [...] Discharge information provided on 01/16/2022 Contact information: [facility], Acute Therapy Services [phone] documented in this encounter Medications at Time [...] Take 1 capsule (300 14 capsule 0 06/09/202102/06/2022 300 mg capsule mg total) by mouth [...] R.N. - 01/17/2022 9:22 AM CDT SUBJECTIVE expeditionary fighting vehicle crewman visited with patient regarding her dismissal questions. OBJECTIVE Patient sitting up in bedside chair. Patient alert, pleasant and engaged in conversation. Patient expressing difficulty understanding the dismissal options. ASSESSMENT / PLAN SENIOR MAINFRAME PROGRAMMER ANALYSTcrushing mill operator visited with patient regarding her questions with [...] the information. Patient contacted Libby via phone. crushing mill operator introduced self and role to Libby. Advised [...] rehab and approvalfor insurance has been submitted. crushing mill operator advised unsure where their process is at. [...] therapy time in comparison to inpatient rehab. crushing mill operator advised will reach out to the team for more information and someone will return call to explain more about inpatient rehab. After leaving patient room, crushing mill operator has learned patient's insurance has approved patient's admission to inpatient rehab. crushing mill operator reached out to team, for request that someone speak to patient and patients mom about inpatient rehab. PLAN crushing mill operator will continue to follow during hospitalization, assisting with a safe dismissal plan. Alberto Jiménez R.N. 01/17/22 Erika Ailcea M.S., [facility]-METAL EXTRUSION SUPERVISOR - 01/17/2022 9:15 AM CDT Speech [...] Primary Mode of Expression: Verbal Primary Language: Luxembourger Open Ended Questions: 100% accuracy Conversation: Impaired [...] her mother on speakerphone about role of METAL EXTRUSION SUPERVISOR services in addressing cognitive communication deficit [...] Disorder: Moderate Plan Discharge Location: Inpatient rehab METAL EXTRUSION SUPERVISOR Ongoing Services: Ongoing formal Speech Pathology services Duration of Treatment: inpatinet stay Rehab Potential: Good Electronically signed by Erika Alicea M.S., [facility]-METAL EXTRUSION SUPERVISOR at 01/17/2022 12:10 PM CDT Michael De Los Santos M.D., Ph.D. - 01/17/2022 9:11 AM CDT Facility Information: [facility] Physical Medicine and Rehabilitation Pre-Admission Screening Patient Information Patient Name: Mia Richardson [address]: [address] [place] [id number] Sex: Female Date of : 1970 Age: 51 y.o. 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 Thepatient underwent a stereotactic biopsy of a left temporal region of hyperintensity in November at [facility]. The pathology apparently revealed IDH [...] for acute inpatient rehabilitation. She requires close color straining bag washer oversight due to her complex medical condition [...] and non-sensical statements. Per chart,her mother from [place] has been living with her recently and she has 3 children ages 29, 23, 21. Patient mentioned having a boyfriend named Erich. Home Living Type of Home: House Home Living Comments: Patient responding to all questions, but tends to perseverate and is not a realiable historian as evidenced by inconsistencies in responses and non-sensical statements. Per chart,her mother from [place] has been living with her recently and she has 3 children ages 29, 23, 21. Patient mentioned having a boyfriend named Erich. Home Equipment Home Adaptive Equipment: None Prior Function Level of [place]: Independent with ADLs and functional transfers Receives [...] with family Patient/Caregiver Goals: Return to home. [place] with ADL and IADL tasks. Required Treatments and Services: Rehabilitation Physician, Rehabilitation Nursing, Physical Therapy, Occupational Therapy, Speech Therapy, Recreational Therapy, Bus And Trolley Dispatcher, Nuclear Weapons Specialist, Rehabilitation Psychology, Bowel and Bladder Management, Middle School Football Coach, and Retinal Surgeon Services Anticipated Services Upon Discharge Anticipated Interventions Anticipated Interventions: Physical Therapy, Occupational Therapy, Speech Therapy PT Projected Minutes/Day: 90 PT Projected Days/Week: 5 OT Projected Minutes/Day: 90 OT Projected Days/Week: 5 METAL EXTRUSION SUPERVISOR Projected Minutes/Day: 30 METAL EXTRUSION SUPERVISOR Projected Days/Week: 5 Rehabilitation nursing to [...] of the primary learner for medical teaching?: Luxembourger Is an evaluation analyst required?: No How does the primary learner prefer to learn new concepts?: Demonstration / Seeing, Doing, Listening Relationship: Patient Is an evaluation analyst required?: No Assessment answers provided by?: Patient Information Brochures Given: Data Collection Information Summary for Patients in Inpatient Rehabilitation Facilities, Brain Rehabilitation [id number], Inpatient Rehabilitation Programs [id number] Michael De Los Santos M.D., Ph.D. Madiha Castro M.D. - 01/17/2022 6:44 AM CDT 9-746 Mia Cedillo [birth year] 51F Glioma Resection [id number] - S/p left temporoparietal crani on 01/10 for resection of Grade 3 astrocytoma, IDH wildtype, MGMT unmethylated. Preop symptoms: lethargic, not oriented, significant pain, nausea, word-finding difficulties, likely seizure. Underwent biopsy and subtotal resection on 12/05 at [facility]. After surgery, she improved temporarily, but then [...] please page the Dr. Ivey service at [phone] Cici Hope RDN - 01/16/2022 3:49 PM [...] 97.7 kg (01/09/2022) Current Weight: 88.9 kg [place] Body Weight (Calculated) : 60.3 kg BMI [...] 97.7 kg Estimated Needs: Total Calorie Needs: 6748-3877 kcals calories/day Method to Estimate Energy Needs: [place] (75% to Basal) Weight Used for Equation [...] about patient's nutritional care please contact pager [phone] on weekdays or [phone] on weekends/holidays. Pradeep Marquez MDIV - 01/16/2022 3:35 PM CDT Encounter: Spiritual Care Contact Situation: Retinal Surgeon visit following up from 01/14/22 supervisor safety deposit visit. Mia declined visit and requested stop back a different day. I affirmed preference. Plan: Will remain available for spiritual care as needed or requested. Chaplains can be contacted bypaging [phone] ([place]) or [phone] ([place]). Sona Ma O.T., O.T.D. - 01/16/2022 3:04 PM CDT Occupational Therapy [facility] Inpatient Progress Note SUBJECTIVE Patient's Name: [...] Date: 01/09/22 Patient/Caregiver Goals: Return to home. [place] with ADL and IADL tasks. Patient Comments: [...] for hospitalization. For hosptial name, she reported [place], but then put [place] in city. With cueing, she was able to correct to [place] and accurately put [place] for state, improved from completion during previous date. Inlet Test Inlet Test is a symbol cancellation test that [...] dressing, Assistance with meal preparation, Assistance with peoplesoft financials, Assistance with transportation, Assistance with hous ekeeping, [...] Therapeutic exercise, Therapeutic modalities as needed, Orthosis ukzaqdtxypd-zfzfzxlm-nptzomv, Manual therapy Time Spent with Patient Therapeutic [...] biopsy and subtotal resection on 12/05 at [facility]. After surgery, she improved temporarily, but then [...] needed (Toradol PRN is available). London Fortune PClayton. - 01/15/2022 2:37 PM CDT Physical Therapy [...] then with cues and times switched to [facility]. She put [facility] and [facility] for [facility]. She appeared to be perseverating on [...] dressing, Assistance with meal preparation, Assistance with peoplesoft financials, Assistance with transportation, Assistance with hous ekeeping, [...] would like to pursue inpatient rehab at [facility]. Reviewed insurance disclosure information Acute inpatient rehabilitation admission planned for 01/17/2022 pending insurance approval. Erika Alicea M.S., [facility]-METAL EXTRUSION SUPERVISOR - 01/15/2022 10:20 AM CDT Speech [...] Primary Mode of Expression: Verbal Primary Language: Luxembourger Open Ended Questions: 61-80% accuracy Conversation: Impaired [...] Disorder: Moderate Plan Discharge Location: Inpatient rehab METAL EXTRUSION SUPERVISOR Ongoing Services: Ongoing formal Speech Pathology services [facility] Re[facility] Potential: Good Madiha Castro M.D. - 01/15/2022 7:01 AM CDT 9-746 Mia Cedillo [birth year] 51F Glioma Resection [id number] - S/p left temporoparietal crani on 01/10 for resection of Grade 3 astrocytoma, IDH wildtype, MGMT unmethylated. Preop symptoms: lethargic, not oriented, significant pain, nausea, word-finding difficulties, likely seizure. Underwent biopsy and subtotal resection on 12/05 at [facility]. After surgery, she improved temporarily, but then [...] will evaluate her today. She worked with PT/OT/METAL EXTRUSION SUPERVISOR yesterday. - Pathology came back as: [...] please page the Dr. Ivey service at [phone] [place] Fortune P.T. - 01/14/2022 2:55 PM [...] - 01/14/2022 11:50 AM CDT Occupational Therapy [facility] Inpatient Progress Note SUBJECTIVE Patient's Name: [...] dressing, Assistance with meal preparation, Assistance with peoplesoft financials, Assistance with transportation, Assistance with hous ekeeping, [...] biopsy and subtotal resection on 12/05 at [facility]. After surgery, she improved temporarily, but then [...] Incision clean/dry/intact. - Na: 134-136 - Plan: PT/OT/METAL EXTRUSION SUPERVISOR, decadron taper, Keppra 1 g BID, diet/mobilization as tolerated, pain management as needed (Toradol PRN is available). For questions or concerns, please page the Dr. Ivey service at [phone] Marie Caballero OClayton. - 01/13/2022 12:42 PM [...] and the need for further assessment. M-LISET Swiss Version A Score: 10/30 Domain scores: Attention: [...] dressing, Assistance with meal preparation, Assistance with peoplesoft financials, Assistance with transportation, Assistance with hous ekeeping, [...] Therapeutic functional activity, Neuromuscular re-education, Gait training MOLDER FEEDER Visit Trackin Time Spent with Patient Therapeutic Interventions Neuromuscular Re-Education (min): 17 min Time Tracking Total Timed Units (min): 17 min Total Treatment Time (min): 17 min Kylie Roca, P.T.A. RDT Madiha Castro M.D. - 01/13/2022 7:18 AM CDT 9-746 Mia Cedillo [birth year] 51F Glioma Resection [id number] - POD#3 s/p left temporoparietal crani for resection of Grade 3 astrocytoma, IDH wildtype, MGMT unmethylated. Preop symptoms: lethargic, not oriented, significant pain, nausea, word-finding difficulties, likely seizure. Underwent biopsy and subtotal resection on 12/05 at [facility]. After surgery, she improved temporarily, but then [...] with assistance. - Exam: oriented to self, [place], and year, CN 2-12 grossly intact, follows commands in all extremities with intact sensation, no pronator drift. Incision clean/dry/intact. - Na: last night was 137 (up from 130 in the afternoon), morning sodium still pending. - Plan: continue trending sodium, encourage oral intake, PT/OT/METAL EXTRUSION SUPERVISOR, decadron taper, Keppra 1 g BID. For questions or concerns, please page the Dr. Ivey service at [phone] Madiha Castro M.D. - 01/12/2022 7:06 AM CDT 8-454 Mia Cedillo [birth year] 51F Glioma Resection [id number] - POD#2 s/p left temporoparietal crani for resection of Grade 3 astrocytoma, IDH wildtype, MGMT unmethylated. Preop symptoms: lethargic, not oriented, significant pain, nausea, word-finding difficulties, likely seizure. Underwent biopsy and subtotal resection on 12/05 at [facility]. After surgery, she improved temporarily, but then [...] restrict fluids if necessary, advance diet, UCO, PT/OT/METAL EXTRUSION SUPERVISOR, decadron taper, Keppra 1 g BID. Active Issues # Brain compression # Cerebral edema # Class 1 Obesity (BMI 30 to <35) ??? Malignant Neoplasm Of Brain (HCC) ??? Tumor Brain (HCC) For questions or concerns, please page the Dr. Ivey service at [phone] Erika Alicea M.S., [facility]-METAL EXTRUSION SUPERVISOR - 01/11/2022 2:25 PM CDT Attempted to see patient both and morning and afternoon for METAL EXTRUSION SUPERVISOR evaluation but patient was unable toawaken and demonstrate alertness necessary for examination. Madiha Castro M.D. - 01/11/2022 7:10 AM CDT 8-548 Mia Cedillo [birth year] 51F Glioma Resection [id number] - POD#1 s/p left temporoparietal crani for resection of Grade 3 astrocytoma, IDH wildtype, MGMT unmethylated. Preop symptoms: lethargic, not oriented, significant pain, nausea, word-finding difficulties, likely seizure. Underwent biopsy and subtotal resection on 12/05 at [facility]. After surgery, she improved temporarily, but then [...] please page the Dr. Ivey service at [phone] RDT Amber Bailey PharmVarun., R.Ph. - 01/10/2022 10:23 AM CDT Pharmacist Progress Note 51 y.o. female admitted for left temporoparietal sterotactic craniotomy OBJECTIVE Home medications: ??? Held: None ??? Changed: Dexmethasone Prophylaxis: None ASSESSMENT / PLAN Pharmacotherapy Recommendations: 1. Heparin for DVT prophylaxis after OR 2. Steroid plan Amber Bailey PharmD, BCCCP [id number] Madiha Castro M.D. - 01/10/2022 7:05 AM CDT 8-699 Mia Cedillo [birth year] 51F Glioma Resection [id number] - To OR today for left Grade 3 astrocytoma, IDH wildtype, MGMT unmethylated. Preop symptoms: lethargic, not oriented, significant pain, nausea, word-finding difficulties, likely seizure. Underwent biopsy and subtotal resection on 12/05 at [facility]. After surgery, she improved temporarily, but then [...] her poor exam, she was transferred to [facility] and given hypertonic saline. Most recent [...] please page the Dr. Ivey service at [phone] Rashida North Pharm.D., R.Ph. - 01/09/2022 5:24 [...] y.o. 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 HISTORY OF PRESENT ILLNESS - PMH is largely unremarkable except for brief course of treatment with HCTZ for HTN in the past. - 11/29/2021 presented to [facility] with intermittent word-finding difficulty. She was [...] by Dr. Dunlap. 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 She could state she was in [place], in her home. She could name ring [...] y.o. 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 We will need [...] be implemented if thisis pursued. I did health counselor against use of antioxidants during radiation [...] Ms. Cedillo is a very pleasant 51-year-old, gcoeh-uhff-wbaegwmg woman with a medical history significant only for hypertension and obesity (BMI 31.1) who was enjoying her normal state of health until about a month ago (November 29, 2021) when she had the onset of intermittent difficulty finding her words.When she presented to the [place] [facility], she was noted to have bruising on her forehead, and a seizure was suspected. She was begun on Keppra, and MRI the following day (images which I viewed in QREADS) revealed a multifocal T1 hypointensive and T2 hyperintensive mass involving the left cerebellum, temporal lobe, parietal lobe, thalamus, and hippocampus. She proceeded to undergo a bi opsy at [facility] on December 05 with pathology consistent with a WHO grade 3 astrocytoma, wild type, and MGMT unmethylated. Following her biopsy she has continued to have difficulty with word finding and ultimately underwent a left temporoparietal stereotactic craniotomy for resection of the tumor which on postoperative MRI imaging appears to be complete. Ms. Cedillo was able to begin participating in an hqy-lup-ibkzk therapy program. She has done well but [...] but I believe it is outside of [place] and that she would have to ascend [...] basis, I proceeded to attempt a formal [facility] mental status examination and obtained [...] Tone: Upper and lower extremities 0/0. Coordination: Fkepor-ot-iimb was -1/-1. Satellite maneuver showed the left [...] R.N. Referral Reason: Discharge Planning Primary Language: Luxembourger Plug Stitcher Services Used: No Person(s) present during interview: [...] Communication: Can write, Talks, Understands speaking, Understands Luxembourger, Reads Shopping: Independent Transportation: Independent to drive [...] Self Care ASSESSMENT / PLAN Assessment: The crushing mill operator met with Mia Richardson to discuss her current hospitalization and home going needs. The patient was unaccompanied. The patient was a reliable historian. The role of crushing mill operator was reviewed. The patient reviewed her prior level of care and support system. The patient receivessupport from her mother and extended family. The patient described her living environment as a apartment without elevator access with level entry. Housekeeping, grocery shopping, meal prep, and other household responsibilities have previously been completed by patient. crushing mill operator discussed the patient's potential needs at dismissal based ontheir home setting, previous needs and responsibilities, homebound status, and relevant assessments with the patient. The patient is yet to be determined be safe and supported to return home when medically ready, pending medical course. Support will be provided by Libby. The patient demonstrated understanding when discussing her home going plans and anticipated needs. crushing mill operator met with patient in hospital room. Patient in agreement to meet at this time. Patient sitting up in bedside chair. Patient alert, pleasant, eyes closed and engaged in conversation related to baseline activity/home environment and support. crushing mill operator and patient spoke of anticipated discharge when medically stable. Discussing vision impairments and anticipated support needed to ensure safety at discharge. Discussed early in recovery with unknown plan at this time. crushing mill operator/patient discussed care management will follow along and [...] medical course and recommendations from PT/OT. Advised crushing mill operator will follow along during hospitalization and assist as needed. crushing mill operator reinforced if concerns or questions arise related to dismissal planning, to notify bedside nurse of request to speak with crushing mill operator for assistance. Patient verbalized understanding and agreement, denying any concerns or questions at this time. At this time, the care team has not identified any skilled post-hospital discharge care needs that require the assistance of the Care Management Team. Dismissal plan to be determined, pending medical course. After reviewing the patient's chart and meeting with the patient, the crushing mill operator deemed the LACE+/readmission questions were not necessary. [...] be provided by family--to be determined. 3. crushing mill operator recommended a shower seat and grab bars. 4. crushing mill operator provided information regarding the dismissal process. 5. crushing mill operator placed or requested the following hospital-based consult orders and/or referrals:None. 6. crushing mill operator will continue to assess for homegoing needs with the interdisciplinary team. 7. crushing mill operator encouraged the patient to reach out with any questions/concerns. Signed by: Alberto Jiménez R.N. 01/14/2022 Emma Arora M.S., CCC-METAL EXTRUSION SUPERVISOR - 01/14/2022 9:58 AM CDT Speech [...] Speech Voice: Within Normal Limits (WNL) Resonance (FORMATION FRACTURING OPERATOR Function): Within Normal Limits (WNL) Articulation: Within Normal Limits (WNL) Intelligibility: Intelligible Auditory Comprehension Yes/No Questions: Within Normal Limits (WNL) Commands: Impaired One Step Basic Commands: 3/3 Two Step Basic Commands: 2/3 Multistep Basic Commands: 1/3 Conversation Comprehension: Moderate Reading Comprehension Reading Status: Impaired Interfering Components: Attention Effective Techniques: Prescription glasses/contact lenses Verbal Expression Primary Mode of Expression: Verbal Primary Language: Luxembourger Generative Naming/Word Fluency: 1-20% accuracy Open Ended [...] come back later Discharge Location: Inpatient rehab METAL EXTRUSION SUPERVISOR Ongoing Services: Ongoing formal Speech Pathology services Duration of Treatment: [facility] Rehab Potential: Good Suman Zavaleta - 01/14/2022 9:00 AM CDTAssociated Order(s): IP CONSULT TO SOIL CONSERVATION TECHNICIAN PASSENGER REPRESENTATIVE Encounter: Follow up, spiritual care consult order [...] or requested. Chaplains can be contacted bypaging [phone] ([place]) or [phone] ([place]). Marie Caballero O.T. - 01/12/2022 1:57 PM CDT Occupational Therapy Acute Hospital Inpatient Evaluation/Treatment SUBJECTIVE Referring/Attending Provider: Charles Ivey M.D. Patient's Name: Mia Richardson Reason for Referral: OT eval and treat- brain Medical Diagnosis: 1. Tumor Brain (HCC) 2. Malignant Neoplasm Of Brain (HCC) 3. Change Mental Status Payor: [facility] / Plan: [place] / Product [...] ultrasound.; Surgeon: Charles Ivey M.D., Ph.D.; Location: [facility] OR ??? 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 Chantal Maria P.T., Pillo.P.T., [facility] - 01/12/2022 1:03 PM CDT Physical Therapy Acute Hospital Inpatient Evaluation/Treatment SUBJECTIVE Referring/Attending Provider: Charles Ivey M.D. Patient's Name: Mia Richardson Reason for Referral: PT eval and treat- brain Medical Diagnosis: 1. Tumor Brain (HCC) 2. Malignant Neoplasm Of Brain (HCC) 3. Change Mental Status Payor: [employer] / Plan: [place] / Product Type: [...] Time (min): 24 min Chantal Maria P.T., AdrianP.TSanjuanita, TREMAINE Hattie Tobar M.D., Ph.D. - 01/11/2022 3:15 PM CDT CHIEF COMPLAINT Poor mentation postoperatively HISTORY OF PRESENT ILLNESS Mia Richardson is a 51 y.o. female with a PMHx of hypertension and recent biopsy and subtotal resection on 12/05 at [facility] for grade 3 astrocytoma, IDH wildtype, MGMT [...] page the neuro critical care service pager [phone] for any questions or concerns regarding the [...] [place] [phone] if there are anyquestions or concerns. TOTAL [...] urgently for craniotomy. Significant Medical Comorbidities: # VISUAL LEAD WHO grade 3 astrocytoma, IDH wildtype by [...] (cardiac risk <5%) Cardiovascular history: - Previous IN: None - CABG: None - Stress tests: [...] do to headache, nausea and vomiting DIAGNOSTICS [facility] Labs: Age 50-60 - ECG only: Sinus bradycardia ASSESSMENT / PLAN Ms. Mia Richardson is a 51 y.o. female with a past medical history as below who was admitted to theneurologic surgery service for left temporoparietal stereotactic craniotomy astrocytoma resection. 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 -- Hematologic risk assessment Bleeding risk: [...] page the medicine consult service pager at [phone] if there are any questions or concerns. Marysol Martinez M.D. Internal Medicine Resident, PGY-3 [facility]IM Medicine Consults, service pager [phone] Charles Ivey M.D., Ph.D. - 01/09/2022 4:50 [...] temporal region of hyperintensity in November at [facility]. The pathology apparently revealed IDH [...] Ivey M.D., Ph.D. CT CT Job ID: [id number] documented in this encounter Nursing Notes Shilpa Burnette R.N. - 01/17/2022 11:50 AM CDT Shift Goals: Transfer to [facility] rehab today Identify possible barriers to meeting goals/advancing plan of care: confusion, impulsivity End of Shift Summary: Patient transferred to [facility]. Report given to JAMES Kirby. Ms. Cedillo has been tolerating a general diet, voiding, ambulating with SBA and reports good pain control. She continues to be impulsive and does need some direction with daily tasks. She answers questions but perseveratesin her speech. She is transferred by [facility] in a wheelchair with all of her [...] Right Radial (Active) Placement Date/Time: 01/10/22 (c 0802 Procedural Pause Completed: Yes Catheter Time Out [...] PRE-OPERATIVE DIAGNOSIS Glioblastoma. POST-OPERATIVE DIAGNOSIS Glioblastoma. A hair or beauty salon assistant actively participated and was necessary for one or more of the following: opening,exposure and visualization during the case, maintaining hemostasis, wound closure resulting in its safe and expeditious completion. SURGEON: Charles Ivey M.D., Ph.D. BASTING MACHINE OPERATOR: Madiha Castro M.D. FELLOW: Johnathan Jones M.D., Ph.D. OPERATIVE NOTE NARRATIVE The patient was brought to operative room 216 at [facility] where appropriate venous and arterial access [...] full but not herniating. We used the REscour navigation system as well as the ultrasound [...] and the images were transferred to the REscour navigation system and merged with the original [...] Ivey M.D., Ph.D. CT CT Job ID: [id number] Brief Op Note - Madiha Castro M.D. [...] biopsy and subtotal resection on 12/05/2021 at [facility] for grade 3 astrocytoma, IDH wildtype, MGMT [...] biopsy and subtotal resection on 12/05 at [facility]. After surgery, she improved temporarily, but then [...] Oncology Vini Maki M.D., Ph.D. [address] [place] [phone] Hamida Ram L.G.S.W., M.S.W. 2022 Clinical Communication Admitting/Central Scheduling 07/19/2022 Appointment Radiology Vini Maki M.D., Ph.D. [address] [place] [address] [phone] 07/22/2022 Comprehensive Visit Gastroenterology and Andres Mehta Hepatology Sebastian Lozada [address] [place] [address] [phone] 07/23/2022 Lab Laboratory Medicine Vini Maki M.D., Ph.D. [address] [place] [address] [phone] 07/23/2022 Office Visit Oncology Rebeca Valle P.A.-C., M.S. [address] [place] [phone] documented as of this encounter Procedures Procedure [...] Organization Address City/State/ZIP Code Phon e Number [facility] - [address] [place], [place] [address] [facility] [place] [address] [facility] [address] Head Neck Angiogram with IV Contrast (01/13/2022 3:30 PM CDT) Anatomical Region Laterality Modality Head and Neck, Neuroradiology RST LOS, N/A C omputed Tomography, Computed Neuroradiology ARZ LOS, Neuroradiology T omography [facility] Specimen (Source) Anatomical Collection Method Collection [...] stenosis , aneurysm, or focal injury. The [place] and its proximal branch vessels [...] stenosis , aneurysm, or focal injury. The [place] and its proximal branch vessels [...] stenosis , aneurysm, or focal injury. The [place] and its proximal branch vessels [...] stenosis , aneurysm, or focal injury. The [place] and its proximal branch vessels [...] M.D. LAB BLOOD ADD-ON Performing Organization Address City/[facility]/ZIP Code Phon e Number [facility] - [address] [place], [place] [address] [facility] [place] [address] [facility] [address] [facility] [place] (ABNORMAL) Sodium (01/13/2022 6:44 AM CDT) P athologist Signature Sodium, S 134 (L) 135 - 145 01/13/2022 DTL mmol/L 8:00 AM CDT Specimen Anatomical Collection Method Collection Time Receive d Time (Source) Location / / Volume Laterality Blood (Blood, 01/13/2022 6:44 AM 01/14/20 7:38 Venous) CDT AM CDT Madiha Castro M.D. LAB BLOOD ADD-ON Performing Organization Address City/[facility]/ZIP Code Phon e Number [facility] - 200 [place], [place] [address] [place] [address] [facility] 200 [facility] Sodium (01/13/2022 12:19 AM CDT) athologist Signature Sodium, P 137 135 - 145 01/13/2022 1:07 DTL mmol/L AM CDT Specimen Anatomical Collection Method Collection Time Receive d Time (Source) Location / / Volume Laterality Blood (Blood, 01/13/2022 12:19 01/13/2022 Venous) AM CDT 12:35 AM CDT Madiha Castro M.D. LAB BLOOD ADD-ON Performing Organization Address City/[facility] Phon e Number [facility] - 200 [place], [place] [address] [place] [id number] [place] [address] (ABNORMAL) Sodium (01/12/2022 4:17 PM CDT) athologist Signature Sodium, P 130 (L) 135 - 145 01/12/2022 [facility] mmol/L 4:37 PM CDT Specimen Anatomical Collection Method Collection Time Receive d Time (Source) Location / / Volume Laterality Blood (Blood, 01/12/2022 4:17 PM 01/13/20 4:25 Venous) CDT PM CDT Madiha Castro M.D. LAB BLOOD ADD-ON Performing Organization Address City/State/ZIP Code Phon e Number [facility] - 200 [place], [place] [address] [facility] STMA [place] [phone] [address] (ABNORMAL) Basic Metabolic Panel (01/12/2022 4:35 [...] 01/12/2022 DTL Black/ mL/min/BSA 5:21 AM CDT Swiss Comment: ----ADDITIONAL INFORMATION---- Estimated GFR calculated using [...] Organization Address City/State/ZIP Code Phon e Number [facility] - [address] [place] [address] [facility] [place] [address] [facility] 200 [facility] (ABNORMAL) Basic Metabolic Panel (01/11/2022 8:54 [...] 01/11/2022 DTL Black/ mL/min/BSA 10:49 PM CDT Swiss Comment: ----ADDITIONAL INFORMATION---- Estimated GFR calculated using [...] Laterality Blood (Blood, 01/11/2022 8:54 PM 01/12/20 22 9:29 Venous) CDT PM CDT Madiha Castro M.D. LAB BLOOD ADD-ON Performing Organization Address City/State/ZIP Code Phon e Number [facility] - [address] [place], [place] [address] [facility] [place] [address] [facility] [address] EEG ROUTINE (01/11/2022 1:29 [...] 01/11/2022 DTL Black/ mL/min/BSA 8:15 AM CDT Swiss Comment: ----ADDITIONAL INFORMATION---- Estimated GFR calculated using [...] M.D. LAB BLOOD ADD-ON Performing Organization Address City/[facility] Phon e Number [facility] - 200 [place], [place] [address] [facility] DTL [address] Sodium (01/10/2022 8:14 PM CDT) P athologist Signature Sodium, P 139 135 - 145 01/10/2022 8:30 ST[facility] mmol/L PM CDT Specimen Anatomical Collection Method Collection Time Receive d Time (Source) Location / / Volume Laterality Blood (Blood, 01/10/2022 8:14 PM 01/11/20 8:20 Venous) CDT PM CDT Madiha Castro M.D. LAB BLOOD ADD-ON Performing Organization Address City/[facility] Phon e Number [facility] - [address] [place], [place] [address] [facility] [place] [address] Patient Status (01/10/2022 2:06 PM CDT) P athologist Signature Temperature 36.0 37.0 deg C 01/10/2022 ST[facility] 2:06 PM CDT FIO2 0.50 0.21=AIR 01/10/2022 [facility] 2:06 PM CDT Specimen Anatomical Collection Method Collection Time Receive d Time (Source) Location / / Volume Laterality Blood 01/10/2022 2:06 PM 2 2:06 CDT PM CDT Eileen Amezquita TECHNICIAN HELPER INSTRUMENT, CAR SALES REPRESENTATIVE, MNA LAB BLOOD NON ADD-ON Performing Organization Address City/[facility] Phon e Number [facility] - [address] [place], [place] [address] [place] [address] [facility] [address] Glucose, Whole Blood (01/10/2022 2:06 PM CDT) athologist Signature Glucose 118 70 - 140 01/10/2022 2:10 ST[facility] mg/dL PM CDT Specimen Anatomical Collection Method Collection Time Receive d Time (Source) Location / / Volume Laterality Blood (Blood, 01/10/2022 2:06 PM 01/11/20 2:06 Arterial Line) CDT PM CDT Ana Vaz M.D. LAB BLOOD TROPONIN Performing Organization Address City/[facility] Code Phon e Number [facility] - [address] [place], [place] [address] [place] [address] [facility] [address] Potassium, Blood (01/10/2022 2:06 [...] Organization Address City/State/ZIP Code Phon e Number [facility] - [address] [place], [place] [address] [place] [address] [facility] [address] Sodium, B (01/10/2022 2:06 PM CDT) athologist Signature Sodium, B 138 135 - 145 01/10/2022 2:10 [facility] mmol/L PM CDT Specimen Anatomical Collection Method Collection Time Receive d Time (Source) Location / / Volume Laterality Blood (Blood, 01/10/2022 2:06 PM 01/11/20 2:06 Arterial Line) CDT PM CDT Ana Vaz M.D. LAB BLOOD NON ADD-ON Performing Organization Address [facility] Phon e Number [facility] - [address] [place], [place] [phone] [address] Calcium, Ionized (01/10/2022 2:06 PM CDT) athologist Signature Calcium, 4.95 4.65 - 5.30 01/10/2022 [facility] Ionized, B mg/dL 2:10 PM CDT Specimen Anatomical Collection Method Collection Time Receive d Time (Source) Location / / Volume Laterality Blood (Blood, 01/10/2022 2:06 PM 01/11/20 2:06 Arterial Line) CDT PM CDT Ana Vaz M.D. LAB BLOOD NON ADD-ON Performing Organization Address [facility] Phon e Number [facility] - [address] [place], [place] [phone] [address] (ABNORMAL) Blood Gas with Coox, Arterial (01/10/2022 2:06 PM CDT) P athologist Signature pO2 168 (H) 83 [...] LAB BLOOD NON ADD-ON Performing Organization Address City/[facility] Phon e Number [place] [address] [address] [place], [place] [address] [place] [address] [facility] 200 [facility] Sodium, B (01/10/2022 12:21 PM CDT) athologist Signature Sodium, B CANCELED 135 - 145 01/10/2022 [facility] mmol/L 8:14 PM CDT Comment: REVISED RESULTS ----PREVIOUSLY REPORTED ---- 138, Flagged as: Normal (Reported 01/10/2022 12:24) Specimen Anatomical Collection Method Collection Time Receive d Time (Source) Location / / Volume Laterality Blood 01/10/2022 12:21 01/10/2022 PM CDT 12:21 PM CDT Narrative [facility] - 01/10/2022 8:14 PM CDT Sodium, B was cancelled on 01/10/2022 at 20:14; RBS update. Eileen Amezquita TECHNICIAN HELPER INSTRUMENT, CAR SALES REPRESENTATIVE, MNA LAB BLOOD NON ADD-ON Performing Organization Address City/[facility] Phon e Number [place] [address] [address] [place], [place] [address] [place] [address] [facility] [address] [facility] [place] Patient Status (01/10/2022 12:21 PM CDT) P athologist Signature FIO2 0.50 0.21=AIR 01/10/2022 12:21 [facility] PM CDT Specimen Anatomical Collection Method Collection Time Receive d Time (Source) Location / / Volume Laterality Blood 01/10/2022 12:21 01/10/2022 PM CDT 12:21 PM CDT Eileen Amezquita TECHNICIAN HELPER INSTRUMENT, CAR SALES REPRESENTATIVE, MNA LAB BLOOD NON ADD-ON Performing Organization Address City/[facility] Phon e Number [facility] - 200 [place], [place] [address] [place], [place] [phone] [place] [address] [address] [facility] [place] Glucose, Whole Blood (01/10/2022 12:21 PM CDT) athologist Signature Glucose 136 70 - 140 01/10/2022 [facility] mg/dL 12:24 PM CDT Specimen Anatomical Collection Method Collection Time Receive d Time (Source) Location / / Volume Laterality Blood (Blood, 01/10/2022 12:21 01/10/2022 Arterial Line) PM CDT 12:21 PM CDT Ana Vaz M.D. LAB BLOOD TROPONIN Performing Organization Address City/[facility]/ZIP [facility] Phon e Number [facility] - [address] [place], [place] [address] [place] [address] [facility] [address] [facility] [place] Potassium, Blood (01/10/2022 12:21 PM CDT) athologist Signature Potassium, B 3.8 3.6 - 5.2 01/10/2022 [facility] mmol/L 12:24 PM CDT Specimen Anatomical Collection Method Collection Time Receive d Time (Source) Location / / Volume Laterality Blood (Blood, 01/10/2022 12:21 01/10/2022 Arterial Line) PM CDT 12:21 PM CDT Ana Vaz M.D. LAB BLOOD NON ADD-ON Performing Organization Address City/[facility]/ZIP Code Phon e Number [facility] - [address] [place], [place] [address] [place] [address] [address] [facility] [place] Calcium, Ionized (01/10/2022 12:21 PM CDT) athologist Signature Calcium, 5.01 4.65 - 5.30 01/10/2022 [facility] Ionized, B mg/dL 12:24 PM CDT Specimen Anatomical Collection Method Collection Time Receive d Time (Source) Location / / Volume Laterality Blood (Blood, 01/10/2022 12:21 01/10/2022 Arterial Line) PM CDT 12:21 PM CDT Ana Vaz M.D. LAB BLOOD NON ADD-ON Performing Organization Address City/State/[facility] Code Phon e Number [facility] - 200 [place], [place] [address] [facility] [place] [address] [facility] 200 [facility] (ABNORMAL) Blood Gas with Coox, Arterial [...] LAB BLOOD NON ADD-ON Performing Organization Address City/[facility]/ZIP Code Phon e Number [facility] - [address] [place], [place] [address] [place] [address] [facility] 200 [facility] Surgical Pathology, Frozen Lab (01/10/2022 12:03 PM CDT) Component Value Ref Test Analysis Performed At [facility] Range Method Time Signature 01/14/2022 [facility] 5:24 PM CDT Participated in Kierra Wilson -Pathology Fellow 01/14/2022 [facility] the Lashon Talley M.D.-Pathology Resident 5:24 PM CDT Interpretation Liliam Burr M.D. -Pathology Resident Report Bryanna Sanchez M.D. 01/14/2022 [facility] electronically 5:24 PM CDT signed by I verify that I have examined all relevant slides/materials for the specimen(s) and rendered or confirmed the diagnosis. Seen in consultation with: Felisha Silveira M.D., Ph.D. Frozen A. ??Brain, left temporal lesion, smears: ??High-grade glioma. 01/14/2022 [facility] Intraoperative 5:24 PM CDT Report Signed by Bryanna Sanchez M.D. 01/10/2022 5:19 PM Gross Description A. ??Received fresh labeled left brain temporal [facility] PM [facility]T 5.9 x 5.3 x 2.8 cm portion of brain with extensive hemorrhage. ??Smears prepared. ??Oil Rig Driller tissue submitted for permanent sections. ??A portion of tissue is collected for potential future ancillary studies. ??After clinical evaluation, residual tissue is procured for IRB [id number]. ??Grossed by Lashon Talley M.D.-Pathology Resident. B. ??Received fresh labeled left stereotactic tumor core is a 1.2 x 0.8 x 0.6 cm portion of brain. ??All submitted for permanent sections. ??Grossed by Jose De La Paz, SAMMI([facility]). C. ??Received fresh labeled left temporal brain lesion is a 3 x 3 x 0.5 cm aggregate of brain tissue admixed with blood. All submitted for permanent sections. ??After clinical evaluation, residual tissue is procured for IRB [id number]. Grossed by Jose Johnson PA([facility]). D. ??Received fresh within three CUSA traps labeled left temporal brain lesion cusa socks is a 6 x 6 x 1 cm aggregate of friable fragments of brain tissue admixed with blood. ??Oil Rig Driller tissue submitted for permanent sections. ??After clinical evaluation, residual tissue is procured for IRB [id number]. ??Grossed by Jose Johnson PA([facility]). 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 See comment. 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 The biopsy specimen lacked microvascular proliferation and tumor necrosis. By immunohistochemistry, the tumor cells were negative for IDH1-R132H and showed retained ATRX expression. 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 Specimen (Source) Anatomical Collection Method Collection Time Re ceived Time Location / / Volume Laterality Tissue (Brain, 01/10/2022 12:03 Left) PM CDT Comment: IRB #[id number] Tissue (Brain, Left) 01/10/2022 2:36 PM C DT Comment: IRB #[id number] Tissue (Brain, Left) 01/10/2022 2:57 PM C DT Comment: IRB #[id number] Tissue (Brain, Left) 01/10/2022 3:07 PM C DT Comment: IRB #[id number] Narrative This result has an attachment that is no t available. Charles Ivey M.D., Ph.D. LAB SURG PATH ORDERABLES Performing Organization Address City/[facility] Phon e Number [facility] - [address] [place] [address] [address] [facility] [place] Patient Status (01/10/2022 11:53 AM CDT) athologist Signature FIO2 0.50 0.21=AIR 01/10/2022 11:53 [facility] AM CDT Specimen Anatomical Collection Method Collection Time Receive d Time (Source) Location / / Volume Laterality Blood 01/10/2022 11:53 01/10/2022 AM CDT 11:53 AM CDT Eileen Amezquita TECHNICIAN HELPER INSTRUMENT, CAR SALES REPRESENTATIVE, MNA LAB BLOOD NON ADD-ON Performing Organization Address City/[facility] Phon e Number [facility] - [address] [place], [place] [address] [place] [address] [address] [facility] [place] Glucose, Whole Blood (01/10/2022 11:53 AM CDT) athologist Signature Glucose 135 70 - 140 01/10/2022 ST[facility] mg/dL 11:55 AM CDT Specimen Anatomical Collection Method Collection Time Receive d Time (Source) Location / / Volume Laterality Blood (Blood, 01/10/2022 11:53 01/10/2022 Arterial Line) AM CDT 11:53 AM CDT Luda Galindo M.D. LAB BLOOD TROPONIN Performing Organization Address City/State/ZIP Code Phon e Number [facility] - [address] [place], [place] [address] [place] [address] [facility] [address] Potassium, Blood (01/10/2022 [...] Organization Address City/State/ZIP Code Phon e Number [facility] - [address] [place], [place] [address] [place] [address] [facility] [address] Sodium, B (01/10/2022 [...] Organization Address City/State/ZIP Code Phon e Number [facility] - [address] [place], [place] [address] [place] [address] [facility] [address] Calcium, Ionized (01/10/2022 [...] Organization Address City/State/ZIP Code Phon e Number [facility] - [address] [place], [place] [address] [facility] [address] [facility] [address] [facility] [place] (ABNORMAL) Blood Gas with Coox, Arterial (01/10/2022 [...] LAB BLOOD NON ADD-ON Performing Organization Address City/[facility] Phon e Number [facility] - [address] [place], [place] [address] [place] [address] [facility] 200 [facility] Glucose, Whole Blood (01/10/2022 9:02 AM CDT) athologist Signature Glucose 127 70 - 140 01/10/2022 9:04 ST[facility] mg/dL AM CDT Specimen Anatomical Collection Method Collection Time Receive d Time (Source) Location / / Volume Laterality Blood (Blood, 01/10/2022 9:02 AM 01/11/20 9:02 Arterial Line) CDT AM CDT Ana Vaz M.D. LAB BLOOD TROPONIN Performing Organization Address City/[facility]/ZIP Code Phon e Number [facility] - [address] [place], [place] [address] [place] [address] Potassium, Blood (01/10/2022 9:02 AM CDT) athologist Signature Potassium, B 4.1 3.6 - 5.2 01/10/2022 STMA mmol/L 9:04 AM CDT Specimen Anatomical Collection Method Collection Time Receive d Time (Source) Location / / Volume Laterality Blood (Blood, 01/10/2022 9:02 AM 01/11/20 9:02 Arterial Line) CDT AM CDT Ana Vaz M.D. LAB BLOOD NON ADD-ON Performing Organization Address City/[facility]/ZIP [facility] Phon e Number [facility] - [address] [place], [place] [address] [place] [address] (ABNORMAL) Sodium, B (01/10/2022 9:02 AM CDT) athologist Signature Sodium, B 129 (L) 135 - 145 01/10/2022 STMA mmol/L 9:04 AM CDT Specimen Anatomical Collection Method Collection Time Receive d Time (Source) Location / / Volume Laterality Blood (Blood, 01/10/2022 9:02 AM 01/11/20 9:02 Arterial Line) CDT AM CDT Ana Vaz M.D. LAB BLOOD NON ADD-ON Performing Organization Address [facility] Phon e Number [facility] - [address] [place], [place] [address] [place] [address] [facility] 200 [facility] Calcium, Ionized (01/10/2022 9:02 AM CDT) athologist Signature Calcium, 4.89 4.65 - 5.30 01/10/2022 STMA Ionized, B mg/dL 9:04 AM CDT Specimen Anatomical Collection Method Collection Time Receive d Time (Source) Location / / Volume Laterality Blood (Blood, 01/10/2022 9:02 AM 01/11/20 9:02 Arterial Line) CDT AM CDT Ana Vaz M.D. LAB BLOOD NON ADD-ON Performing Organization Address City/[facility] Phon e Number [facility] - [address] [place], [place] [address] [place] [address] [facility]ly [facility]-[address] (ABNORMAL) Blood Gas with Coox, Arterial [...] LAB BLOOD NON ADD-ON Performing Organization Address City/[facility] Phon e Number [facility] - [address] [place], [place] [address] [place], [place] [id number] [place] [address] Type and Screen (with reflex Antibody ID) [...] Resulting Agency Comment Drawn in OR216 by [email or web address] Ana Vaz M.D. LAB BLOOD BANK TEST ORDERABL ES Performing Organization Address City/[facility] Phon e Number [facility] - [address] [place], [place] [address] [facility] STRM [address] (ABNORMAL) Sodium (01/10/2022 6:33 AM CDT) P athologist Signature Sodium, S 129 (L) 135 - 145 01/10/2022 DTL mmol/L 7:19 AM CDT Specimen Anatomical Collection Method Collection Time Receive d Time (Source) Location / / Volume Laterality Blood (Blood, 01/10/2022 6:33 AM 01/11/20 7:07 Venous) CDT AM CDT Madiha Castro M.D. LAB BLOOD ADD-ON Performing Organization Address City/State/ZIP Code Phon e Number [facility] - [address] [place], [place] [address] [place], [place] [phone] [place] [address] (ABNORMAL) Sodium (01/10/2022 12:57 AM CDT) athologist Signature Sodium, S 130 (L) 135 - 145 01/10/2022 DTL mmol/L 1:43 AM CDT Specimen Anatomical Collection Method Collection Time Receive d Time (Source) Location / / Volume Laterality Blood (Blood, 01/10/2022 12:57 01/10/2022 1:26 Venous) AM CDT AM CDT Madiha Castro M.D. LAB BLOOD ADD-ON Performing Organization Address City/[facility]/ZIP Code Phon e Number [facility] - [address] [place], [place] [address] [place] [address] [place] [address] [address] [facility] [place] Osmolality, Urine (01/09/2022 9:35 PM CDT) athologist Signature Osmolality, U 707 150 - 1150 01/09/2022 DTL mOsm/kg 10:42 PM CDT Specimen Anatomical Collection Method Collection Time Receive d Time (Source) Location / / Volume Laterality Urine (Urine, 01/09/2022 9:35 PM 01/10/20 22 Catheter) CDT 10:12 PM CDT Madiha Castro M.D. LAB URINE ORDERABLES Performing Organization Address City/[facility]/ZIP Code Phon e Number [facility] - [address] [place], [place] [address] [place] [address] [place] [address] [address] [facility] [place] Sodium, Random, Urine (01/09/2022 9:35 PM CDT) [...] Organization Address City/State/ZIP Code Phon e Number [facility] - [address] [place], [place] [address] [facility] [place] [address] [facility] [address] (ABNORMAL) Basic Metabolic Panel (01/09/2022 8:01 PM [...] CDT eGFR-Black/Afri >90 >=60 01/09/2022 STMA can Swiss mL/min/BSA 8:26 PM CDT Comment: ----ADDITIONAL INFORMATION---- Estimated GFR calculated using the 2009 CKD_EPI creatinine equation. eGFR Non-Black/ >90 >=60 mL/min/BSA 01/09/2022 8:26 PM CDT STMA Comment: ----ADDITIONAL INFORMATION---- Estimated GFR calculated using the 2009 CKD_EPI creatinine equation. Calcium, Total, P 9.4 8.6 - 10.0 mg/dL 01/09/2022 8:26 PM CDT [facility] Glucose, P 146 (H) 70 - 140 mg/dL 01/09/2022 8:26 PM CDT S TMA Specimen Anatomical Collection Method Collection Time Receive d Time (Source) Location / / Volume Laterality Blood (Blood, 01/09/2022 8:01 PM 01/10/20 8:09 Venous) CDT PM CDT Madiha Castro M.D. LAB BLOOD ADD-ON Performing Organization Address City/State/ZIP Code Phon e Number [facility] - [address] [place], [place] [address] [place] [address] [facility] [address] [facility] [place] SARS Coronavirus 2, RNA, Rapid POC, V Asymptomatic (01/09/2022 7:24 PM CDT) [facility] Method Time Signature SARS Undetected Undetected 01/09/2022 DTLR Coronavirus-2 7:47 PM CDT , RNA, Rapid POC, V Comment: Negative for SARS-CoV-2. The [employer] COVID-19 test is a molecular watson t for SARS-CoV-2, the virus that causes COVID- 19. A Negative result means that the [employer] COV ID-19 test did not detect SARS-CoV-2 virus in your sample. [employer] COVID-19 test uses the [employer] Mo nitoring System. This test has received Emergency Use Authorization (EUA) by the U.S. Food and Drug Administration (FDA) and is used per man acturer instructions. Performance characteristic s were verified by [facility] in a manner consistent with CLIA requirements. Fact sheets for this Emerg ency Use Authorization (EUA) can be found at the following links: Providers: https://[employer].com/documentation/prov iders.pdf Patients: https://[employer].com/documentation/tylor ents.pdf SARS Coronavirus 2, Source Nasopharynx DEFAULT 01/09/2022 7:47 PM CDT DTLR Specimen Anatomical Collection Method Collection Time Receive d Time (Source) Location / / Volume Laterality Varies 01/09/2022 7:24 PM 7:24 (Nasopharynx) CDT PM CDT Christina Tai P.A.-C., M.S. LAB MICROBIOLOGY - GENERAL ORDERABLES Performing Organization Address City/[facility] Code Phon e Number PERFORMING LABS, [place] [address] INTERFACE Ref Interface [address] [facility] [place] DTLR Performing Labs, [place] [address] Interface 200 [facility] (ABNORMAL) CBC without Differential (01/09/2022 6:05 PM CDT) [facility] Method Time Signature Hemoglobin 12.2 11.6 [...] Organization Address City/State/ZIP Code Phon e Number [facility] - [address] [place], [place] [address] [facility] [place] [address] [facility] [address] [facility] [place] Hemoglobin A1c (01/09/2022 5:58 PM CDT) P athologist Signature Hemoglobin A1c, 5.1 4.0 - 5.6 01/09/2022 DTL B % 7:58 PM CDT Specimen Anatomical Collection Method Collection Time Receive d Time (Source) Location / / Volume Laterality Blood (Blood, 01/09/2022 5:58 PM 01/10/20 7:40 Venous) CDT PM CDT Marysol Martinez M.D. LAB BLOOD ADD-ON Performing Organization Address City/[facility]/ZIP Code Phon e Number [facility] - [address] [place], [place] [address] [facility] [place] [address] [facility] 200 [facility] ECG 12 Lead (01/09/2022 4:44 PM CDT) P athologist Signature Ventricular Rate 54 BPM MUSE ECG/Min VA Interval 138 ms MUSE QRSD Interval 86 ms MUSE QT Interval 424 ms MUSE QTC Interval 402 ms MUSE P [place] 27 degrees MUSE R [place] 44 degrees MUSE T Wave [place] 54 degrees MUSE Specimen Anatomical Collection Method [...] P.A.-C., M.S. ECG ORDERABLES Performing Organization Address City/[facility]/ZIP Code Phon e Number MUSE MUSE NA documented in this encounter Visit Diagnoses Diagnosis Tumor Brain (HCC) - Primary Tumor Brain (HCC) Malignant Neoplasm Of Brain (HCC) Change Mental Status Abnormal Gait Non Orthopedic Concern Patient Cognition Function Deficit Cognitive Communication Decline Cognitive Malignant Neoplasm Of Brain (HCC) Malignant Neoplasm [...] Fri01/10/22 at 1952, Ordered sequence of administration: polyethylene [...] as required, Starting on 01/12/22 at 1610 cellulose, oxidized 2 x 14 [...] comfort goal, Starting on Bee 01/10/22 at 1951 Given 01/12/2022 9:34 AM CDT 10 mg Given 01/11/2022 8:07 AM CDT 10 mg oxyCODONE IR tablet 5 mg (ROXICODONE) Given 01/16/2022 9:04 AM CDT 5 mg 5 mg, oral, Every 4 hours PRN, moderate pain or score 4-6 of 10, Starting on Bee 01/10/22 at 195 Given 01/12/2022 5:16 AM CDT 5 mg [...] Other solution (RECOTHROM) As needed, Starting on Bee 01/10/22 at 1102, Intra-Op Given 01/10/2022 11:02 AM [...] Burnette RSanjuanitaN.)1709 (Given - Provider: Amelie Gayle RSanjuanitaN.) 0100 (Given - Provider: Luda Yu RSanjuanitaNSanjuaniat)0506 (Given - Provider: Luda Yu RSanjuanitaN.)1235 (Given - Provider: Shilpa Burnette R.N.)1823 (Given - Provider: Hattie Baldwin R.N.) 0010 (Given - Provider: Beryl Hyde RSanjuanitaN.)0622 (Given - Provider: Beryl Orozco R.N.)1133 (Given [...] 1) 0 525 (Given - Provider: Maggie A Garces, R.N.)0952 (Given - Provider: Tutu QuinteroN.)1648 (Given - Provider: Amelie Gayle R.N.)214 (Given - Provider: Amelie Gayle R.N.) 0334 (Given - Provider: Luda ramesh R.N.)0902 (Given - Provider: Tutu QuinteroN.)164 (Given - Provider: Hattie Baldwin R.N.)213 (Given - Provider: Hattie Baldwin R.N.) 0402 (Given - Provider: Beryl Orozco, R.N.)0911 (Given - Provider: Tutu QuinteroN.) 3 mg, oral, Every 6 hours, First dose on Fri01/15/22 at 0430, Fo r 4 days levETIRAcetam tablet 1,000 mg (KEPPRA) 0952 (Given - P rovider: Tutu QuinteroN.)2139 (Given - Provider: Amelie Gayle R.N.) 0901 (Given - Provider: Tutu QuinteroN.)2138 (Given - Provider: Tutu HernandezN.) 0911 (Given - Provider: Shilpa Burnette R.N.) 1,000 mg, oral, 2 times daily, First dose on 01/12/[address] tablet 40 mg (PROTONIX) 0616 (Given - Provider: Maggie Garces RSanjuanitaN.) 0607 (Given - Provider: Luda Yu R.N.) 0622 (Given - Provider: Beryl Orozco R.N.) 40 [...] 05 06 (Given - Provider: Luda Yu RSanjuanitaNSanjuanita) 750 mg, oral, Every 6 hours PRN, [...] IR tablet 5 mg (ROXICODONE)(Linked Group 2) 09 (Given - Provider: Shilpa Burnette R.N.) 5 [...]
--- OUTSIDE RECORDS SUMMARY | 2022-06-19 11:43 | XMS_ITS | Encounter Summary ---
:1970 Author Organization [facility] Address [address] [place] [address] Care Team Providers Name Role Phone Unavailable Primary Care Provider Unavailable Reason for Referral Outpatient (Routine) - Closed Specialty Diagnoses / Procedures Referred By Contact Refer red To Contact Neurological Surgery Diagnoses Tumor Brain (HCC) Christina Tai [facility] Kobi Henderson, M.S. [address] [place] [address] Referral ID Status Reason Start Date Expiration Date Visits Requ ested Visits Authorized [id number] Closed 01/11/2022 01/11/2023 1 1 Scheduling Instructions 3 mo post surgical follow up; Brain MRI prior RI/CAT/PET Scan (Routine) - Closed Specialty Diagnoses / Procedures Referred By Contact Refer red To Contact Radiology Diagnoses Tumor Brain (HCC) Christina Tai [facility] Procedures MR Brain Perfusion without and with IV Contrast Kobi, M.S. [address] [place] [phone] Referral ID Status Reason Start Date Expiration Date Visits Requ ested Visits Authorized [id number] Closed 01/11/2022 01/11/2023 1 1 Reason for Visit Reason Comments Post Hospital Follow-up Encounter Details Date Type Department Care Team Description 01/11/2022 Clinical RST HIM Tai, Post Hospital Communication [address] [facility] Christina Henderson, Follow-up [place], [place] Kobi [place].S. [phone] [address] [place] [phone] Social History Tobacco Use Types Packs/Day Years [...] have completed or the highest Maulik, MEd, BUNGHOLE BORER, MOISE) degree you have received? Sex Assigned at Date Recorded Female 01/07/2022 11:11 AM CDT documented as of this encounter Plan of Treatment Upcoming Encounters Date Type Specialty Care Team Description 06/24/2022 Clinical Support Oncology Vini Maki M.D., Ph.D. [address] [place] [phone] Haimda Ram L.G.S.W., M.S.W. 2022 Clinical Communication Admitting/Central Scheduling 07/19/2022 Appointment Radiology Vini Maki M.D., Ph.D. [address] [place] [phone] 07/22/2022 Comprehensive Visit Gastroenterology and Andres Mehta Hepatology Sebastian Lozada [address] [place] [phone] 07/23/2022 Lab Laboratory Medicine Vini Maki M.D., Ph.D. [address] [place] [phone] 07/23/2022 Office Visit Oncology Rebeca Valle P.A.-C., M.S. [address] [place] [phone] Scheduled Referrals Name Type Priority Associated Order [...] with biopsy performed 12/05/2021 and outside hospital. [place] review of out side pathology indicates IDH [...] Procedure Note Fabiola Carter M.B., B.Ch. - 08/11/2 022 EXAM: MR BRAIN PERFUSION WITHOUT AND [...] with biopsy performed 12/05/2021 and outside hospital. [place] review of out side pathology indicates IDH [...]
--- OUTSIDE RECORDS SUMMARY | 2022-06-19 11:43 | XMS_ITS | Encounter Summary ---
:1970 Author Organization [facility] Address [address] [place] [address] Care Team Providers Name Role Phone Unavailable Primary Care Provider Unavailable Reason for Visit Auth/Cert Specialty Diagnoses / Procedures Referred By Contact Refer red To Contact Diagnoses Malignant Neoplasm Of Brain (HCC) Procedures MT CRANIOT SUBDURAL IMPL ELECTRODE MT MAPPING CORTICAL INITIAL HR Awake left temporoparietal stereotactic craniotomy tumor resection, speech mapping, intraop MRI, supine position. Referral ID Status Reason Start Date Expiration Date Visits Requ ested Visits Authorized [id number] 1 1 Encounter Details Date Type Department Care Team Description 01/10/2022 Anesthesia Event RST ROMB MAIN OR Michael Tanner M.D., M.S. [address] [place] [phone] 12[address] [facility] Luda Galindo M.D. [address] [place] [phone] [place] [phone] Anesthesia Record Procedure Summary Procedure Name Responsible Anesthesia Start Anesthesia Stop Anesthesiologist Time Time Asleep left Michael Tanner, 01/10/22 0809 01/10/22 1 810 temporjakeal Sebastian, M.S. stereotactic craniotomy tumor resection, speech mapping, [...] 1743 Quick Note To OR 216 from RI 54 1747 Turnover to ANE Staff 1753 Airway Removal Criteria Met 1753 Extubation/Airway Removed 1758 an stop data 1810 An End I completed my h andoff to the receiving staff during [facility] ch we 1. Identified the patient 2. [...] Upper Peripheral IV Placement Date: 01/09/22; 01/09/22 172 by 01/12 1521 by Placement Time: 172; Jodi Cartwright Klug, Bro oke E Catheter Size: 22 G; R.N. Orientation: Left; Location: Hand; Site Prep: Chlorhexidine (Preferred); Technique: Anatomical landmarks; Inserted by: w; Insertion Attempts: 1; Removal Date: 01/12/22; Removal Time: 152; Removal Reason: No longer in place Indwelling Urinary Placement Date: 01/09/22; 01/09/222136 by 121 by Catheter Placement Time: 2136; Mary Mckoy [place] i, Michael Type: Latex, Triple-lumen DEVELOPMENT ASSISTANT V., R. N. (Original order for 3-way); Size: 20 Fr.; Balloon Size: 30 mL; Urine Returned: Yes; Removal Date: 01/12/22; Removal Time: 1214; Removal Reason: Per order ETT Placement Date: 01/10/22; 01/10/22821 by 01/10 by Placement Time: 821 Nicholas Higuera Hanson, Amy M, (created via procedure FISHING GAME WARDEN, SATELLITE DISH INSTALLER FISHING GAME WARDEN, CRN A, DNAP documentation); Mask Ventilation: Easy mask; Type: Standard ETT; Single Lumen Tube Size: 7 mm; Cuffed: Yes; Location: Oral; Grade View: Grade 1; Insertion Attempts: 1; Placement Verification: Bilateral breath sounds, Positive ETCO2, Symmetrical chest wall movement; Removal Date: 01/10/22; Removal Time: 1752 Arterial Line Placement Date: 01/10/22; 01/10/22841 by 01/12 0003 by Placemnt Time: 841 Nicholas Higuera Do, Anna J, R.N. (created via procedure FISHING GAME WARDEN, SATELLITE DISH INSTALLER documentation); Size: 20 G; Orientation: Right; Location: Radial; Site Prep: Chlorhexidine (Preferred); Technique: Anatomical landmarks; Insertion Attempts: 1; Securement: Securement dressing, Securement device; Removal Date: 01/12/22; Removal Time: 0003; Removal Reason: Per order Peripheral IV Placement Date: 01/10/22; 01/10/22901 by 01/12 0751 by Placement Time: 09; Nicholas Higuera Heesch, Ryan E, Catheter Size: 18 G; MARILY GARCIA R.NSanjuanita Orientation: Left; Location: Foot; Inserted by: mahi; Removal Date: 01/12/22; Removal Time: 075; Removal Reason: Other (Comment) (not needed) Peripheral IV Placement Date: 01/10/22; 01/10/22 09 by 01/12 1020 by Placement Time: 902; Nicholas Higuera Heesch, Ryan E, Catheter Size: 18 G; MARILY GARCIA R.N. Orientation: Right; Location: Hand; Removal Date: 01/12/22; Removal Time: 102; Removal Reason: Per protocol documented in this [...] have completed or the highest Maulik, MEd, BADGER DISTILLER OPERATOR, MOISE) degree you have received? Sex Assigned at Date Recorded Female 01/07/2022 11:11 AM CDT documented as of this encounter OR Notes Anesthesia Postprocedure Evaluation - Karen Prakash M.D. - 01/10/2022 6:44 PM CDT Patient: Mia Richardson Procedure Summary Date: 01/10/22 Room / Location: [address] / [facility] in [place], [place] Anesthesia Start: 808 Anesthesia Stop: 1809 [...] status: euvolemic Anesthesia Procedure Notes - Nicholas Higuera APRN, MARILY - 01/10/2022 9:49 AM CDTAssociated Order(s): Airway [...] ETT location: oral VL device: glide scope [place] scope blade size: 3 Adult tube size: [...] diagnosis: Malignant Neoplasm Brain (HCC) [C71.9]. Location: [address] / [facility] in [place], [place] Providers: Charles Ivey M.D., Ph.D. Pertinent [...] Oncology Vini Maki M.D., Ph.D. [address] [place] [phone] Hamida Ram L.G.S.W., M.S.W. 2022 Clinical Communication Admitting/Central Scheduling 07/19/2022 Appointment Radiology Vini Maki M.D., Ph.D. [address] [place] [phone] 07/22/2022 Comprehensive Visit Gastroenterology and Andres Mehta Hepatology Sebastian Lozada [address] [place] [address] [phone] 07/23/2022 Lab Laboratory Medicine Vini Maki M.D., Ph.D. [address] [place] [phone] 07/23/2022 Office Visit Oncology Rebeca Valle P.A.-C., M.S. [address] [place] [address] [phone] documented as of this encounter Procedures Procedure Name Priority Date/Time Associated Comments Diagnosis LDA ANE ARTERIAL LINE Routine 01/10/2022 8:42 AM Results for this INSERTION CDT procedure are i n the results section. MT ARTL CATH/CNULA Routine 01/10/2022 8:42 AM Res ults for this MONITOR PERC CDT procedure are i n the results section. LDA ANE ENDOTRACHEAL Routine 01/10/2022 8:22 AM R esults for this AIRWAY CDT procedure are i n the results section. documented in this encounter Results MT ARTL CATH/CNULA MONITOR PERC, LDA ANE ARTERIAL [...] turn: yes ?? Complications - arterial: none Ldua Galindo M.D. PROCEDURE/MINOR SURGICAL ORD ERABLES LDA [...] ETT location: oral VL device: glide scope [place] scope blade size: 3 Adult tube size: [...]
--- OUTSIDE RECORDS SUMMARY | 2022-06-19 11:44 | XMS_ITS | Encounter Summary ---
:1970 Author Organization [facility] Address [address] [place] [address] Care Team Providers Name Role Phone Unavailable Primary Care Provider Unavailable Reason for Referral MRI/CAT/PET Scan (Routine) - Closed Specialty Diagnoses / Procedures Referred By Contact Refer red To Contact Radiology Diagnoses Mass Brain Evangelist Sal[place] M.D., [facility] Procedures MR Brain Functional Language with MD Administration Ph.D. [address] [place] [phone] Referral ID Status Reason Start Date Expiration Date Visits Requ ested Visits Authorized [id number] Closed 01/01/2022 01/01/2023 1 1 Reason for Visit Auth/Cert Specialty Diagnoses / Procedures Referred By Contact Refer red To Contact Diagnoses Malignant Neoplasm Of Brain (HCC) Procedures NE CRANIOT SUBDURAL IMPL ELECTRODE NE MAPPING CORTICAL INITIAL HR Awake left temporoparietal stereotactic craniotomy tumor resection, speech mapping, intraop MRI, supine position. Referral ID Status Reason Start Date Expiration Date Visits Requ ested Visits Authorized [id number] 1 1 Encounter Details Date Type Department Care Team Description 01/09/2022 Hospital Encounter Department of Radiology, Radha Salinas, Mass Brain lucien Mcgrath M.D., Ph.D. [place], [place] [address] [place] [address] [place] [phone] Social History Tobacco Use Types Packs/Day Years [...] slept in a senior living (including now)? Sex Assigned at Date Recorded [...] Oncology Vini Maki M.D., Ph.D. [address] [place] [phone] Hamida Ram L.G.S.W., M.S.W. 2022 Clinical Communication Admitting/Central Scheduling 07/19/2022 Appointment Radiology Vini Maki M.D., Ph.D. [address] [place] [phone] 07/22/2022 Comprehensive Visit Gastroenterology and Andres Mehta Hepatology Sebastian Lozada [address] [place] [phone] 07/23/2022 Lab Laboratory Medicine Vini Maki M.D., Ph.D. [address] [place] [phone] 07/23/2022 Office Visit Oncology Rebeca Valle P.A.-C., M.S. [address] [place] [phone] documented as of this encounter Procedures Procedure [...] the appearance and size of the left iggjaiw-imovxjih-ddxhrwrf mass since 03/2022. The mass demonstrates new [...] were acquired and statistically evaluated with the [employer] workstation using AFNI based correlation analysis. Training: ??The patient was trained in t he selected fMRI tasks by Dr. Coffey. ??The patient's ability to perform these tasks was assessed greta sarah the training session. 1. ??Task: ??Rhyming [facility] Patient self-assessment of performance: ??Inadequate Technologist assessment of performance: ??Inadequate Accuracy: ?11.7% Average response time: ??1.7sec Head motion: ? 0.4 mm Statistical methods: ?T statis tic filtered 2. ??Task: ??Sentence completion [facility] Patient self-assessment of performance: ?Adequate Technologist [...] the appearance and size of the left hxiqbkn-ispvncvh-zwzspksw mass since 03/2022. The mass demonstrates new [...] were acquired and statistically evaluated with the [employer] workstation using AFNI based correlation analysis. Training: [...]
--- OUTSIDE RECORDS SUMMARY | 2022-06-19 11:44 | XMS_ITS | Encounter Summary ---
:1970 Author Organization [facility] Address [address] [place] [address] Care Team Providers Name Role Phone Unavailable Primary Care Provider Unavailable Reason for Referral Outpatient (Routine) - Closed Specialty Diagnoses / Procedures Referred By Contact Refer red To Contact Oncology Rebeca Valle P .A.-C., M.S. [facility] [address] [place] [phone] Referral ID Status Reason Start Date Expiration Date Visits Requ ested Visits Authorized [id number] Closed 01/09/2022 01/09/2023 1 1 Encounter Details Date Type Department Care Team Description 01/09/2022 Orders Only Department of Oncology in [place] Dionicio, M.A., R.N., [address] [place] [address] [place] [address] [address] [place] [address] [place] [phone] Social History Tobacco Use Types Packs/Day Years [...] 01/07/2022 organizations such as gnosticist groups, unions, fraSeltenerden Storkwitz or athletic groups, or school groups? How [...] have completed or the highest Maulik, MEd, ELECTRONICS DEPARTMENT MANAGER, MOISE) degree you have received? Sex Assigned at Date Recorded Female 01/07/2022 11:11 AM CDT documented as of this encounter Plan of Treatment Upcoming Encounters Date Type Specialty Care Team Description 06/24/2022 Clinical Support Oncology Vini Maki M.D., Ph.D. [address] [place] [phone] Hamida Ram L.G.S.W., M.S.W. 2022 Clinical Communication Admitting/Central Scheduling 07/19/2022 Appointment Radiology Vini Maki M.D., Ph.D. [address] [place] [address] [phone] 07/22/2022 Comprehensive Visit Gastroenterology and Andres Mehta Hepatology Sebastian Lozada [address] [place] [phone] 07/23/2022 Lab Laboratory Medicine Vini Maki M.D., Ph.D. [address] [place] [address] [phone] 07/23/2022 Office Visit Oncology Rebeca Valle P.A.-C., M.S. [address] [place] [phone] Scheduled Referrals Name Type Priority Associated Diagnoses Order [facility] Outpatient Referral Routine Expec anayeli: visit (clinic) 01/09/2022, Surveillance; Expires: Brain 04/11/2023 documented as of this encounter Visit Diagnoses Not on filedocumented in this encounter
--- OUTSIDE RECORDS SUMMARY | 2022-06-19 11:44 | XMS_ITS | Encounter Summary ---
:1970 Author Organization [facility] Address [address] [place] [address] Care Team Providers Name Role Phone Unavailable Primary Care Provider Unavailable Reason for Referral Outpatient (Routine) - Closed Specialty Diagnoses / Procedures Referred By Contact Refer red To Contact Oncology Karthikeyan Cedeno M.D. [facility] [address] [place] [address] [phone] Referral ID Status Reason Start Date Expiration Date Visits Requ ested Visits Authorized [id number] Closed 01/03/2022 01/03/2023 1 1 utpatient (Routine) - Closed Specialty Diagnoses / Procedures Referred By Contact Refer red To Contact Medical Oncology / Diagnoses Astrocytoma (HCC) Karthikeyan Cedeno M.D. [facility] Oncology [address] [place] [phone] Referral ID Status Reason Start Date Expiration Date Visits Requ ested Visits Authorized [id number] Closed 01/03/2022 01/03/2023 1 1 Reason for Visit Appointment Request (Routine) - Closed Specialty Diagnoses / Procedures Referred By Contact Refer red To Contact Oncology Diagnoses Astrocytoma Anaplastic (HCC) Referral ID Status Reason Start Date Expiration Date Visits Requ ested Visits Authorized [id number] Closed 12/26/2021 12/26/2022 1 1 Encounter Details Date Type Department Care Team Description 01/03/2022 Telemedicine Department of Oncology Karthikeyan Cedeno Ast rocytoma (HCC) in Sebastian Turner (Primary Dx) [place] [address] [facility] [address] [place] [phone] Social History Tobacco Use Types Packs/Day Years [...] or slept in a alf (including now)? Sex Assigned at Date Recorded Female 01/07/2022 11:11 AM CDT documented as of this encounter Consult Notes Karthikeyan Cedeno M.D. - 01/03/2022 8:20 AM CDT SUBJECTIVE PRIMARY CARE PHYSICIAN: No primary care provider on file. REASON FOR CONSULT Mia Richardson is a 51 y.o. 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 HISTORY OF PRESENT ILLNESS - PMH is largely unremarkable except for brief course of treatment with HCTZ for HTN in the past. - 11/29/2021 presented to [facility] with intermittent word-finding difficulty. She was counseling [...] by Dr. Dunlap. 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 She could state she was in [place], in her home. She could name ring [...] y.o. 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 We will need [...] be implemented if thisis pursued. 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 [address] [place] [phone] Hamida Ram L.G.S.W., M.S.W. 2022 Clinical Communication Admitting/Central Scheduling 07/19/2022 Appointment Radiology Vini Maki M.D., Ph.D. [address] [place] [phone] 07/22/2022 Comprehensive Visit Gastroenterology and Andres Mehta Hepatology Sebastian Lozada [address] [place] [phone] 07/23/2022 Lab Laboratory Medicine Vini Maki M.D., Ph.D. [address] [place] [phone] 07/23/2022 Office Visit Oncology Rebeca Valle P.A.-C., M.S. [address] [place] [phone] Scheduled Referrals Name Type Priority Associated Diagnoses [...]
--- OUTSIDE RECORDS SUMMARY | 2022-06-19 11:44 | XMS_ITS | Encounter Summary ---
:1970 Author Organization [facility] Address [address] [place] [address] Care Team Providers Name Role Phone Unavailable Primary Care Provider Unavailable Encounter Details Date Type Department Care Team Description 01/09/2022 Clinical Communication Department of Rebeca Valle , Oncology in P.A.-C., M.S. [place], [place] [address] [facility] [address] [place] [phone] Social History Tobacco Use Types Packs/Day Years [...] have completed or the highest Maulik, MEd, CAR OILER, MOISE) degree you have received? Sex Assigned at Date Recorded Female 01/07/2022 11:11 AM CDT documented as of this encounter Plan of Treatment Upcoming Encounters Date Type Specialty Care Team Description 06/24/2022 Clinical Support Oncology Vini Maki M.D., Ph.D. [address] [place] [phone] Hamida Ram L.G.S.Yasmeen., M.S.W. 2022 Clinical Communication Admitting/Central Scheduling 07/19/2022 Appointment Radiology Vini Maki M.D., Ph.D. [address] [place] [address] [phone] 07/22/2022 Comprehensive Visit Gastroenterology and Andres Mehta Hepatology Sebastian Lozada [address] [place] [address] [phone] 07/23/2022 Lab Laboratory Medicine Vini Maki M.D., Ph.D. [address] [place] [phone] 07/23/2022 Office Visit Oncology Rebeca Valle P.A.-C., M.S. [address] [place] [phone] documented as of this encounter Visit Diagnoses Diagnosis Malignant Neoplasm Of Brain (HCC) - Prim uyen documented in this encounter Additional Health Concerns Infection Onset Date Last Indicated Resolved Time COVID19 Pending 01/09/2022 01/09/2022 01/09/2022 7:47 PM CDT documented as of this encounter
--- OUTSIDE RECORDS SUMMARY | 2022-06-19 11:44 | XMS_ITS | Encounter Summary ---
:1970 Author Organization [facility] Address [address] [place] [address] Care Team Providers Name Role Phone Unavailable Primary Care Provider Unavailable Encounter Details Date Type Department Care Team Description 01/01/2022 Lab RST RO LMP Rebeca Valle, Astrocytoma (HCC) [address] [place] [address] P.A.-[place] [phone] [place] [phone] (Wo rk) Social History Tobacco [...] or slept in a correction (including now)? Sex Assigned at Date Recorded Female 01/07/2022 11:11 AM CDT documented as of this encounter Plan of Treatment Upcoming Encounters Date Type Specialty Care Team Description 06/24/2022 Clinical Support Oncology Vini Maki M.D., Ph.D. [address] [place] [address] [phone] Hamida Ram L.G.S.W., M.S.W. 2022 Clinical Communication Admitting/Central Scheduling 07/19/2022 Appointment Radiology Vini Maki M.D., Ph.D. [address] [place] [address] [phone] 07/22/2022 Comprehensive Visit Gastroenterology and Andres Mehta Hepatheri Lozada M.D. [address] [place] [address] [phone] 07/23/2022 Lab Laboratory Medicine Vini Maki M.D., Ph.D. [address] [place] [address] [phone] 07/23/2022 Office Visit Oncology Rebeca Valle P.A.-C., M.S. [address] [place] [phone] documented as of this encounter Procedures Procedure [...] 10:27 AM CDT Participated in Heath Rodarte M.D. 01/03/2022 DTL the -Pathology Fellow 10:27 AM Interpretation CDT Report Eduard Pastrana M.D. 01/03/2022 DT L electronically 10:27 AM signed by CDT I verify that I have examined all relevant slides/materials for the specimen(s) and rendered or confirmed the diagnosis. A comprehensive consult with review of records that included clinical notes and imaging reports was performed to assist in the diagnostic assessment of the case. Material Received A. [id number]: Brain, left mass 01/03/2022 DTL ? 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 See comment. Comment: ??Per the provided outside reports, next-generation sequencing ([facility], [place], [place]) demonstrated a ??TERT ??promoter mutation, and showed no mutations in ??IDH1 / IDH2 ??genes. 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 This histopathologic and molecular profile of this mitotically-active infiltrating astrocytoma is consistent with Glioblastoma, IDH-wildtype. These findings can be correlated with the results of a subsequent resection specimen, reviewed at [facility] ([id number]; 01/10/2022). Signed by Eduard Pastrana M.D. 04/18/2022 2:31 PM Comment: REVISED RESULTS Interpretation PRELIMINARY DIAGNOSIS 04/18/2022 2: 31 PM CDT DTL Brain, left temporal-parietal, biopsy and excision ([id number]; 12/05/2021): Mitotically-active infiltrating glioma. See comment. COMMENT A Final Integrated Diagnosis corresponding to the 2020 WHO Classification of VETERINARIAN Tumors will be reported subsequently, following receipt of results of next generation sequencing studies being performed by the referring institution. This mitotically-active glioma exhibits appreciable nuclear atypia, favoring astrocytic morphology, and demonstrable mitotic activity in this biopsy sampling (reaching 3 mitoses in 10 high powered garcia) in the absence of microvascular proliferation or necrosis, histologically suggestive of a higher-grade (at least VETERINARIAN WHO grade 3) designation on a preliminary [...] report. Per report, outside MGMT promoter studies ([facility]) resulted NEGATIVE for MGMT promoter methylation. Specimen Anatomical Collection Method Collection Time Receive d Time (Source) Location / / Volume Laterality Varies 12/05/2021 3:19 PM 2 CDT 12:17 PM CDT Narrative This result has an attachment that is no t available. Rebeca Valle P.A.-C., M.S. LAB SURG PATH ORDERABLE S Performing Organization Address City/State/ZIP Code Phon e Number [facility] - [address] [place], [place] [address] [facility] [place] [address] [facility] [address] documented in this encounter Visit Diagnoses Diagnosis Astrocytoma (HCC) documented in this encounter
--- OUTSIDE RECORDS SUMMARY | 2022-06-19 11:44 | XMS_ITS | Encounter Summary ---
:1970 Author Organization [facility] Address [address] [place] [address] Care Team Providers Name Role Phone Unavailable Primary Care Provider Unavailable Reason for Referral Outpatient (Routine) - Closed Specialty Diagnoses / Procedures Referred By Contact Refer red To Contact Neurological Surgery Diagnoses Mass Brain Evangelist [place] M.D., [facility] Ph.D. 200 [place] [phone] Referral ID Status Reason Start Date Expiration Date Visits Requ ested Visits Authorized [id number] Closed 01/01/2022 01/01/2023 1 1 Scheduling Instructions Please schedule at least one day after f unctional MRI MRI/CAT/PET Scan (Routine) - Closed Specialty Diagnoses / Procedures Referred By Contact Refer red To Contact Radiology Diagnoses Mass Brain Evangelist [place] M.D., [facility] Procedures MR Brain Functional Language with MD Administration Ph.D. [address] [place] [phone] Referral ID Status Reason Start Date Expiration Date Visits Requ ested Visits Authorized [id number] Closed 01/01/2022 01/01/2023 1 1 Encounter Details Date Type Department Care Team Description 01/01/2022 Orders Only Department of Marsha Larry [facility] (Primary Neurologic Surgery in R.N. Dx) [place], [place] 200 [facility] 200 [place] [phone] Social History Tobacco Use Types Packs/Day Years [...] or slept in a halfway (including now)? Sex Assigned at Date Recorded Female 01/07/2022 11:11 AM CDT documented as of this encounter Plan of Treatment Upcoming Encounters Date Type Specialty Care Team Description 06/24/2022 Clinical Support Oncology Vini Maki M.D., Ph.D. [address] [place] [phone] Hamida Ram L.G.S.W., M.S.W. 2022 Clinical Communication Admitting/Central Scheduling 07/19/2022 Appointment Radiology Vini Maki M.D., Ph.D. [address] [place] [phone] 07/22/2022 Comprehensive Visit Gastroenterology and Andres Mehta Hepatology Sebastian Lozada [address] [place] [phone] 07/23/2022 Lab Laboratory Medicine Vini Maki M.D., Ph.D. [address] [place] [phone] 07/23/2022 Office Visit Oncology Rebeca Valle P.A.-C., M.S. [address] [place] [phone] Scheduled Referrals Name Type Priority Associated Order Schedule Diagnoses Neurological Surgery Outpatient Referral Routine Mass Brain Expected: - General consult 01/01/2022 (clinic) (Approximate), Expires: 04/03/2023 documented as of this encounter Results MR Brain Functional Language with MD Administration (01/09/2022 12:04 PM CDT) Anatomical Region Laterality Modality Head, Brain, Neuroradiology RST LOS, Neuroradiology AR N/A Magnetic Resonance [facility], Neuroradiology [facility] Specimen (Source) Anatomical Collection Method [...] the appearance and size of the left pqtmqyr-ynvyipgo-llxcepwp mass since 03/2022. The mass demonstrates new [...] were acquired and statistically evaluated with the [employer] workstation using AFNI based correlation analysis. Training: ??The patient was trained in t he selected fMRI tasks by Dr. Coffey. ??The patient's ability to perform these tasks was assessed greta ng the training session. 1. ??Task: ??Rhyming [facility] Patient self-assessment of performance: ??Inadequate Technologist assessment of performance: ??Inadequate Accuracy: ?11.7% Average response time: ??1.7sec Head motion: ? 0.4 mm Statistical methods: ?T statis tic filtered 2. ??Task: ??Sentence completion [facility] Patient self-assessment of performance: ?Adequate Technologist [...] the appearance and size of the left fkwgqie-iesfmrjh-kcnruznw mass since 03/2022. The mass demonstrates new [...] were acquired and statistically evaluated with the [employer] workstation using AFNI based correlation analysis. Training: [...]
--- OUTSIDE RECORDS SUMMARY | 2022-06-19 11:44 | XMS_ITS | Encounter Summary ---
:1970 Author Organization [facility] Address [address] [place] [address] Care Team Providers Name Role Phone Unavailable Primary Care Provider Unavailable Reason for Visit Reason Comments Phone call Encounter Details Date Type Department Care Team Description 01/09/2022 Clinical Communication Department of Oncology Olivia Sanchez Phone call in [facility] [place], HenryP., M.A., [facility] [address] [facility] [address] [place] [phone] Social History Tobacco Use Types Packs/Day Years [...] have completed or the highest Maulik, MEd, RIVETING MACHINE OPERATOR, MOISE) degree you have received? [...] patient and expressed concerns regarding new symptoms. iLbby stated that Ms Cedillo had been experiencing [...] new prescription was sent to the [facility] pharmacy as well. Conferred with Rebeca Valle PA-C and we were able to schedule [facility] Re[facility]a. Ms Cedillo also [...] clinical judgement and provider Rebeca Valle PA-C. Electronically signed by Olivia Koenig D.N.P., MSanjuanitaA., R.N., [facility]- at 01/09/2022 11:40 AM CDT documented in this encounter Plan of Treatment Upcoming Encounters Date Type Specialty Care Team Description 06/24/2022 Clinical Support Oncology Vini Maki M.D., Ph.D. [address] [place] [phone] Hamida Ram L.G.S.W., M.S.W. 2022 Clinical Communication Admitting/Central Scheduling 07/19/2022 Appointment Radiology Vini Maki M.D., Ph.D. [address] [place] [phone] 07/22/2022 Comprehensive Visit Gastroenterology and Andres Mehta Hepatheri Lozada M.D. [address] [place] [phone] 07/23/2022 Lab Laboratory Medicine Vini Maki M.D., Ph.D. [address] [place] [phone] 07/23/2022 Office Visit Oncology Rebeca Valle P.A.-C., M.S. [address] [place] [phone] documented as of this encounter Visit Diagnoses Not on filedocumented in this encounter
--- OUTSIDE RECORDS SUMMARY | 2022-06-19 11:44 | XMS_ITS | Encounter Summary ---
:1970 Author Organization [facility] Address [address] [place] [address] Care Team Providers Name Role Phone Unavailable Primary Care Provider Unavailable Reason for Visit Reason Comments Pre-scheduling Questionnaire [facility] Encounter Details Date Type Department Care Team Description 12/26/2021 Clinical Department of Prescheduling, Pre-scheduli ng Communication Oncology in Provider Questionnaire ([facility]) [place] [address] [place] [address] Social History Tobacco Use Types Packs/Day Years [...] or slept in a fdc (including now)? Sex Assigned at Date Recorded [...] Oncology Vini Maki M.D., Ph.D. [address] [place] [phone] Hamida Ram L.G.S.W., M.S.W. 2022 Clinical Communication Admitting/Central Scheduling 07/19/2022 Appointment Radiology Vini Maki M.D., Ph.D. [address] [place] [phone] 07/22/2022 Comprehensive Visit Gastroenterology and Andres Mehta Hepatology Sebastian Lozada [address] [place] [phone] 07/23/2022 Lab Laboratory Medicine Vini Maki M.D., Ph.D. [address] [place] [phone] 07/23/2022 Office Visit Oncology Rebeca Valle P.A.-C., M.S. [address] [place] [address] documented as of this encounter Visit Diagnoses Not on filedocumented in this encounter
--- OUTSIDE RECORDS SUMMARY | 2022-06-19 11:44 | XMS_ITS | Encounter Summary ---
:1970 Author Organization [facility] Address [address] [place] [address] Care Team Providers Name Role Phone Unavailable Primary Care Provider Unavailable Reason for Visit Reason Comments Pre-visit Testing Orders Encounter Details Date Type Department Care Team Description 12/31/2021 Clinical Department of Rebeca Valle Pre-visit Baljit palomo Communication Oncology in J, Neo., M.S. Orders [place], [facility] [address] [place], [place] [address] [place] [phone] [place], [place] [phone] (Work) [phone] Social History Tobacco Use Types Packs/Day Years [...] Oncology Vini Maki M.D., Ph.D. [address] [place] [address] [phone] Hamida Ram L.G.S.W., M.S.W. 2022 Clinical Communication Admitting/Central Scheduling 07/19/2022 Appointment Radiology Vini Maki M.D., Ph.D. [address] [place] [phone] 07/22/2022 Comprehensive Visit Gastroenterology and Andres Mehta Hepatheri Lozada M.D. [address] [place] [address] [phone] 07/23/2022 Lab Laboratory Medicine Vini Maki M.D., Ph.D. [address] [place] [phone] 07/23/2022 Office Visit Oncology Rebeca Valle P.A.-C., M.S. [address] [place] [phone] documented as of this encounter Results Pathology [...] assessment of the case. Material Received A. [id number]: Brain, left mass 01/03/2022 DTL ? 3 stained slides 10:27 AM CDT Addendum FINAL INTEGRATED DIAGNOSIS 04/18/2022 DT L 2:31 PM Brain, left temporal-parietal, biopsy and excision CDT ([id number]; 12/05/2021): ??Glioblastoma, IDH-wildtype (CLAY PUDDLER WHO grade 4). See comment. Comment: ??Per the provided outside reports, next-generation sequencing ([facility] [employer] [place], [place]) demonstrated a ??TERT ??promoter mutation, and showed no mutations in ??IDH1 / IDH2 ??genes. 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 This histopathologic and molecular profile of this mitotically-active infiltrating astrocytoma is consistent with Glioblastoma, IDH-wildtype. These findings can be correlated with the results of a subsequent resection specimen, reviewed at [facility] ([id number]; 01/10/2022). Signed by Eduard Pastrana M.D. 04/18/2022 2:31 PM Comment: REVISED RESULTS Interpretation PRELIMINARY DIAGNOSIS 04/18/2022 2: 31 PM CDT DTL Brain, left temporal-parietal, biopsy and excision ([id number]; 12/05/2021): Mitotically-active infiltrating glioma. See comment. COMMENT A Final Integrated Diagnosis corresponding to the 2020 WHO Classification of CLAY PUDDLER Tumors will be reported subsequently, following receipt of results of next generation sequencing studies being performed by the referring institution. This mitotically-active glioma exhibits appreciable nuclear atypia, favoring astrocytic morphology, and demonstrable mitotic activity in this biopsy sampling (reaching 3 mitoses in 10 high powered garcia) in the absence of microvascular proliferation or necrosis, histologically suggestive of a higher-grade (at least CLAY PUDDLER WHO grade 3) designation on a preliminary [...] report. Per report, outside MGMT promoter studies ([facility]) resulted NEGATIVE for MGMT promoter methylation. Specimen Anatomical Collection Method Collection Time Receive d Time (Source) Location / / Volume Laterality Varies 12/05/2021 3:19 PM 2 CDT 12:17 PM CDT Narrative This result has an attachment that is no t available. Rebeca Valle P.A.-C., M.S. LAB SURG PATH ORDERABLE S Performing Organization Address City/State/ZIP Code Phon e Number [facility] - [address] [place], [place] [address] [facility] [place] [address] [facility] [address] documented in this encounter Visit Diagnoses Diagnosis Astrocytoma (HCC) - Primary documented in this encounter
--- OUTSIDE RECORDS SUMMARY | 2022-06-19 11:44 | XMS_ITS | Encounter Summary ---
:1970 Author Organization [facility] Address [address] [place] [address] Care Team Providers Name Role Phone Unavailable Primary Care Provider Unavailable Reason for Visit Outpatient (Routine) - Closed Specialty Diagnoses / Procedures Referred By Contact Refer red To Contact Neurological Surgery Diagnoses Mass Brain Evangelist Salinas M.D., [facility] Ph.D. [address] [place] [address] Referral ID Status Reason Start Date Expiration Date Visits Requ ested Visits Authorized [id number] Closed 01/01/2022 01/01/2023 1 1 Encounter Details Date Type Department Care Team Description 01/09/2022 Comprehensive Visit Department of Ivey, Charles Ojeda Ma ss Brain Neurologic Surgery in M.Adrian, Ph.D . [place], [place] [address] [place] [address] [place] [phone] Social History Tobacco Use Types Packs/Day Years [...] 01/07/2022 organizations such as episcopal groups, unions, fraLetao or athletic groups, or school groups? How [...] have completed or the highest Maulik, MEd, PRODUCTION LEAD, MOISE) degree you have received? Sex Assigned at Date Recorded Female 01/07/2022 11:11 AM CDT documented as of this encounter Progress Notes Charles Ivey M.D., Ph.D. - 01/09/2022 4:30 PM CDT Please see dictated consultation note from 01/09/2022. documented in this encounter Plan of Treatment Upcoming Encounters Date Type Specialty Care Team Description 06/24/2022 Clinical Support Oncology Vini Maki M.D., Ph.D. [address] [place] [phone] Hamida aRm L.G.SMio, M.S.W. 2022 Clinical Communication Admitting/Central Scheduling 07/19/2022 Appointment Radiology Vini Maki M.D., Ph.D. [address] [place] [phone] 07/22/2022 Comprehensive Visit Gastroenterology and Andres Mehta Hepatheri Lozada M.D. [address] [place] [phone] 07/23/2022 Lab Laboratory Medicine Vini Maki M.D., Ph.D. [address] [place] [phone] 07/23/2022 Office Visit Oncology Rebeca Valle P.A.-C., M.S. [address] [place] [phone] documented as of this encounter Visit Diagnoses Diagnosis Mass Brain documented in this encounter
--- OUTSIDE RECORDS SUMMARY | 2022-06-19 11:44 | XMS_ITS | Encounter Summary ---
:1970 Author Organization [facility] Address 200 [place] [address] Care Team Providers Name Role Phone Unavailable Primary Care Provider Unavailable Reason for Referral Outpatient (Routine) - Closed Specialty Diagnoses / Procedures Referred By Contact Refer red To Contact Clinical Genomics Diagnoses Malignant Neoplasm Of Brain (HCC) Cliff Sumner M.D., [facility] 200 [place] [address] Referral ID Status Reason Start Date Expiration Date Visits Requ ested Visits Authorized [id number] Closed 01/01/2022 01/01/2023 1 1 Outpatient (Routine) - Closed Specialty Diagnoses / Procedures Referred By Contact Refer red To Contact Social Work Diagnoses Malignant Neoplasm Of Brain (HCC) Cliff Sumner M.D., [facility] 200 [place] [phone] Referral ID Status Reason Start Date Expiration Date Visits Requ ested Visits Authorized [id number] Closed 01/01/2022 01/01/2023 1 1 Scheduling Instructions Phone is okay. Please contact patient fo r preference. Reason for Visit Appointment Request (Routine) - Closed Specialty Diagnoses / Procedures Referred By Contact Refer red To Contact Radiation Oncology Diagnoses Astrocytoma (HCC) Shelbie Ackerman M.D. [address], [address] [address] Referral ID Status Reason Start Date Expiration Date Visits Requ ested Visits Authorized [id number] Closed 12/28/2021 12/28/2022 1 1 Encounter Details Date Type Department Care Team Description 01/01/2022 Hospital Encounter Department of Stephanie Gleason Neoplasm Radiation Oncology Sebastian Marcelino Of Brain (HCC) in [address] (Primary Dx) [place], [place] [address] [phone] [place], [place] [phone] (Work) [phone] Social History Tobacco Use Types Packs/Day Years [...] 10:00 AM CDT RADIATION ONCOLOGY CONSULTATION Super[employer] Shearer: Dr. Stephanie Gleason Referring Provider: Shelbie Ackerman M.D. Primary Care Provider: Dr. Marie Nettles Home address: [id number] [place], [place] [phone] SUBJECTIVE History of present illness Mia Cedillo is a 51 y.o. 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 The patient's oncologic history is as follows: Oncology History Malignant Neoplasm Of Brain (HCC) 11/29/2021 Other The patient presented to [facility] with intermittent word-finding difficulties and partial seizures with a loss of consciousness. The patient was transferred to [facility]. She was started on steroids and Keppra [...] left mass, biopsy - Astrocytoma, at least ROLL HANDLER WHO grade 3. See comment. B. Brain, left mass, excision - Astrocytoma, at least ROLL HANDLER WHO grade 3. See comment. Final Diagnosis: [...] to Dr. Shelbie Ackerman at the [facility]. Discussed that it was okay for the [...] plus temozolomide. Referral to Radiation Oncology at [facility] in [place]. 01/14/2022 - Radiation Therapy Radiation Therapy Treatment [...] full and symmetric in b/l UE andLE, nuznkh-yypm-zwgyhu testing intact, normal gait. Imaging Outside MR [...] would recommend an MRI with contrast in [place] and a neurosurgery consultation to follow. Thepatient [...] consultation. I also will order a social services counselor consultation to facilitate the patient's complex workup and treatment course. We reviewed our recommendations for definitive or adjuvant radiation treatment. We would recommend treatment over approximately 6 weeks, treating to 1822-7047 cGy in 30 fractions using IMRT. Medical oncology from [facility] has recommended concurrent temozolomide. We will reach out to Dr. Doherty from [place] [facility] about possibly moving that consultation [...] or concerns. Dr. Stephanie Gleason is the organizational consultant; please see attestation for further details. [...] skip a planned two week vacation to [place] with her boyfriend, Erich. Her mother who is a CHK2 carrier is from [place] and is currently living with her daughter [...] all ready had requesteda second opinion at [place] and we see an appointment January 14. We shared with them that without seeinga post-operative MRI it is difficult for us to comment on whether or not we could/should proceed with treatment now or if she has been maximally safely debulked. We discussed the rationale, risks, sideeffects and goals of radiation therapy. We discussed the acute as well as usp risks, including, but not limited to fatigue, nausea/vomiting, headaches, dermatitis, alopecia, seizures, weakness, mental status change, changes in cognition, brain radionecrosis. Final dose would be determined when we have the final mutational status, but could vary from 57 Gy to 60 Gy in 27 to 30 fractions. We are not aware of any [place] studies that she would be eligible for, so she will likely return here for radiation therapy. We discussed her case with our ROLL HANDLER Rad Onc leader and proton therapy is not recommended. I shared with them that we can have their input for our field design. We discussed the pros and cons of radiation here vs in [place]. We discussed that we could get things [...] Gleason M.D. 01/01/2022 2:41 PM CDT Pager [phone] documented in this encounter Miscellaneous Notes Addendum Note - Kimmie Goff, C.N.A. - 01/01/2022 10:00 AM CDT Encounter addended by: Kimmie Goff C.N.A. on: 01/02/2022 7:12 AM Actions taken: Letter saved documented in this encounter Plan of Treatment Upcoming Encounters Date Type Specialty Care Team Description 06/24/2022 Clinical Support Oncology Vini Maki M.D., Ph.D. [address] [place] [phone] Hamida Ram L.G.S.W., M.S.W. 2022 Clinical Communication Admitting/Central Scheduling 07/19/2022 Appointment Radiology Vini Maki M.D., Ph.D. [address] [place] [phone] 07/22/2022 Comprehensive Visit Gastroenterology and Andres Mehta Hepatology Sebastian Lozada [address] [place] [phone] 07/23/2022 Lab Laboratory Medicine Vini Maki M.D., Ph.D. [address] [place] [phone] 07/23/2022 Office Visit Oncology Rebeca Valle P.A.-C., M.S. [address] [place] [address] [phone] Scheduled Referrals Name Type Priority Associated Diagnoses Order S [facility] Social Work - Outpatient Referral Routine Malignant [...]
--- OUTSIDE RECORDS SUMMARY | 2022-06-19 11:44 | XMS_ITS | Encounter Summary ---
:1970 Author Organization [facility] Address [address] [place] [address] Care Team Providers Name Role Phone Unavailable Primary Care Provider Unavailable Reason for Referral Radiation Therapy (Routine) - Pending Review Specialty Diagnoses / Procedures Referred By Contact Refer red To Contact Diagnoses Malignant Neoplasm Of Brain (HCC) Stephanie Gleason M.D. [facility] Radiation Oncology Procedures Management Visit [address] [facility] [place] [phone] [place] [address] Referral ID Status Reason Start Date Expiration Date Visits V isits Requested Authorized [id number] Pending 12/31/2021 12/31/2022 10 10 Review Radiation Therapy (Routine) - Closed Specialty Diagnoses / Procedures Referred By Contact Refer red To Contact Diagnoses Malignant Neoplasm Of Brain (HCC) Stephanie Gleason M.D. [facility] Radiation Oncology Procedures Prior Auth Rad Tx ND IMRT COMPLEX [address] [facility] [place] [phone] [place] [address] Referral ID Status Reason Start Date Expiration Date Visits Requ ested Visits Authorized [id number] Closed 01/31/2022 12/31/2022 30 30 Radiation Therapy (Routine) - Closed Specialty Diagnoses / Procedures Referred By Contact Refer red To Contact Diagnoses Malignant Neoplasm Of Brain (HCC) Stephanie Gleason M.D. [facility] Procedures Initial Rad Onc Treatment Planning CT Simulation [address] [place] [address] Referral ID Status Reason Start Date Expiration Date Visits Requ ested Visits Authorized [id number] Closed 12/31/2021 12/31/2022 1 1 Encounter Details Date Type Department Care Team Description 12/31/2021 Orders Only Department of Burak, Cliff Ojeda, Malignant N eoplasm Of Radiation Oncology in Beatriz.Adrian, M.S. Brain (HCC) ([facility] [place] [address] [facility] Dx) [address] [place] [phone] Social History Tobacco Use Types Packs/Day Years [...] Support Oncology Vini Maki M.D., Ph.D. [address] [place] [address] [phone] Hamida Ram L.G.S.W., M.S.W. 2022 Clinical Communication Admitting/Central Scheduling 07/19/2022 Appointment Radiology Vini Maki M.D., Ph.D. [address] [place] [address] [phone] 07/22/2022 Comprehensive Visit Gastroenterology and Andres Mehta Hepatheri Lozada M.D. [address] [place] [address] [phone] 07/23/2022 Lab Laboratory Medicine Vini Maki M.D., Ph.D. [address] [place] [address] [phone] 07/23/2022 Office Visit Oncology Rebeca Valle P.A.-C., M.S. [address] [place] [phone] Scheduled Orders Name Type Priority Associated Order [...] Organization Address City/State/ZIP Code Phon e Number [facility] na documented in this encounter Visit Diagnoses Diagnosis Malignant Neoplasm Of Brain (HCC) - Prim uyen Malignant Neoplasm Of Brain (HCC) documented in this encounter Additional Health Concerns Infection Onset Date Last Indicated Resolved Time COVID19 Pending 01/09/2022 01/09/2022 01/09/2022 7:47 PM CDT documented as of this encounter
--- OUTSIDE RECORDS SUMMARY | 2022-06-19 11:44 | XMS_ITS | Encounter Summary ---
:1970 Author Organization [facility] Address [address] [place] [address] Care Team Providers Name Role Phone Unavailable Primary Care Provider Unavailable Reason for Visit Outpatient (Routine) - Closed Specialty Diagnoses / Procedures Referred By Contact Refer red To Contact Oncology Rebeca Valle P .A.-C., M.S. [place] [address] [place] [phone] Referral ID Status Reason Start Date Expiration Date Visits Requ ested Visits Authorized [id number] Closed 01/09/2022 01/09/2023 1 1 Encounter Details Date Type Department Care Team Description 01/09/2022 Office Visit Department of Rebeca Valle Malignan t Neoplasm Of Oncology in [place], M.S. Brain (HCC) (Primary [place], [place] [address] [place] [address] Dx) [address] [place] [phone] Social History Tobacco Use Types Packs/Day Years [...] No 01/07/2022 organizations such as religious groups, [employer], [employer] or athletic groups, or school groups? How [...] 01/07/2022 you have completed or the highest aMulik, MEd, LYRIC WRITER, MOISE) degree you have received? Sex Assigned at Date Recorded Female 01/07/2022 11:11 AM CDT documented as of this encounter Progress Notes Rebeca Valle P.A.-C., M.S. - 01/09/2022 1:00 PM CDT Images from the original note were not included. SUBJECTIVE COLLABORATING ONCOLOGIST: Dr. Cedeno PRIMARY [place] ONCOLOGIST: No care count team member to display CHIEF COMPLAINT/REASON FOR VISIT Mia [...] Keppra and [place] [facility]. 11/30/2021 Imaging MRI of the brain demonstrated [...] left mass, biopsy - Astrocytoma, at least SALESPERSON AUTOMOBILES WHO grade 3. See comment. B. Brain, left mass, excision - Astrocytoma, at least SALESPERSON AUTOMOBILES WHO grade 3. See comment. Final Diagnosis: [...] Dr. Shelbie Ackerman at the [facility]. Discussed that it was okay for the patient to proceed with chemotherapy and radiation 1 month from biopsy date. Also discussed that itwas okay for the patient to travel on a commercial air flight approximately 1 month from biopsy as she was planning for a trip to [place] with her significant other in December. 12/24/[address] Shelbie Ackerman who reviewed the patient's case with Dr. Dunlap and he recommended against additional surgery. Dr. Macias recommended proceeding with a combination of radiation therapy plus temozolomide. Referral to Radiation Oncology at [facility] in [place]. 01/14/2022 - Radiation Therapy Radiation Therapy Treatment [...] Component Date Value ??? Case Number 12/05/2021 [id number] ??? Participated in the Inte* 12/05/2021 Heath [...] the case. ??? Material Received 12/05/2021 Value:A. [id number]: Brain, left mass 3 stained slides ??? Interpretation 12/05/2021 Value:PRELIMINARY DIAGNOSIS Brain, left temporal-parietal, biopsy and excision ([id number]; 12/05/2021): Mitotically-active infiltrating glioma. See comment. COMMENT A Final Integrated Diagnosis corresponding to the 2020 WHO Classification of SALESPERSON AUTOMOBILES Tumors will be reported subsequently, following receipt of results of next generation sequencing studies being performed by the referring institution. This mitotically-active glioma exhibits appreciable nuclear atypia, favoring astrocytic morphology, and demonstrable mitotic activity in this biopsy sampling (reaching 3 mitoses in 10 high powered garcia) in the absence of microvascular proliferation or necrosis, histologically suggestive of a higher-grade (at least SALESPERSON AUTOMOBILES WHO grade 3) designation on a preliminary [...] report. Per report, outside MGMT promoter studies ([facility]) resulted NEGATIVE for MGMT promoter methylation. [...] physicians, nurse practitioners/physician assistants, nurses and other computer support analyst that specialize in this cancer. Also, reviewed [...] Support Oncology Vini Maki M.D., Ph.D. [address] [place] [phone] Hamida Ram L.G.STammy., M.S.W. 2022 Clinical Communication Admitting/Central Scheduling 07/19/2022 Appointment Radiology Vini Maki M.D., Ph.D. [address] [place] [phone] 07/22/2022 Comprehensive Visit Gastroenterology and Andrse Mehta Hepatology Sebastian Lozada [address] [place] [address] [phone] 07/23/2022 Lab Laboratory Medicine Vini Maki M.D., Ph.D. [address] [place] [address] [phone] 07/23/2022 Office Visit Oncology Rebeca Valle P.A.-C., M.S. [address] [place] [address] [phone] documented as of this encounter Visit Diagnoses Diagnosis Malignant Neoplasm Of Brain (HCC) - Prim uyen documented in this encounter
[2022-06-19 12:57] LABS: Albumin* 4.7 g/dL (3.3-5.0); Chloride* 102 mmol/L (96-114)
[2022-06-19 12:58] LABS: Potassium* 4.1 mmol/L (3.6-5.1); Sodium* 139 mmol/L (135-149)
[2022-06-19 13:00] LABS: Alanine Aminotransferase* 17 U/L (4-35); Alkaline Phosphatase* 67 U/L (40-150); Aspartate Amino Transferase* 21 U/L (12-35); Bilirubin Total* 0.3 mg/dL (0.1-1.5); Blood Urea Nitrogen* 16 mg/dL (7-30); Calcium* 9.5 mg/dL (8.4-10.6); Carbon Dioxide* 27 mmol/L (20-32); Cholesterol* 241 mg/dL (90-199); Creatinine* 0.8 mg/dL (0.5-1.5); Estimated Glomerular Filt Rate 89 ml/min; Glucose* 92 mg/dL (60-115); Total Protein* 6.9 g/dL (6.0-8.3); Triglycerides* 103 mg/dL (40-149)
[2022-06-19 13:01] LABS: HDL Cholesterol* 46 mg/dL (>=50); LDL Cholesterol Calculated 174 mg/dL (<100)
== END 2022-06-19 11:32 | disposition home or self-care (01) ==
PROVIDERS: PCP Family Medicine; Visit Provider Family Medicine
DX: Z13.6 Encounter for screening for cardiovascular disorders (principal)
CPT/HCPCS: 80053; 80061

== ENCOUNTER 2022-07-24 11:45 | Outpatient (RCR) | payer MEDICAID, SELFPAY ==
[2022-05-21 16:00] LABS: Basophils Percent Auto 0.6 % (0.0-3.0); Eosinophils Percent Auto 2.1 % (0.0-7.0); Hematocrit 39.1 % (33.0-51.0); Hemoglobin* 12.6 gm/dL (12.0-16.0); Lymphocytes Percent Auto 24.5 % (20-44); Mean Corpuscular HGB Conc 32 gm/dL (32-36); Mean Corpuscular Hemoglobin 28 pg (26-34); Mean Corpuscular Volume 87 fL (80-100); Monocytes Percent Auto 9.4 % (0.0-11.0); Neutrophils Percent Auto 63.4 % (42.0-72.0); Platelet Count* 255 K/uL (140-440); RDW Coefficient of Variation % 13.1 % (11.5-15.5)
[2022-05-21 16:02] LABS: Slide Review Reflex No
[2022-05-29 00:06] LABS: Basophils Percent Auto 0.6 % (0.0-3.0); Eosinophils Percent Auto 1.9 % (0.0-7.0); Hematocrit 39.7 % (33.0-51.0); Hemoglobin* 12.7 gm/dL (12.0-16.0); Immature Granulocytes Abs Auto 0.01 K/uL (0.00-0.30); Lymphocytes Percent Auto 29.2 % (20-44); Mean Corpuscular HGB Conc 32 gm/dL (32-36); Mean Corpuscular Hemoglobin 28 pg (26-34); Mean Corpuscular Volume 88 fL (80-100); Monocytes Percent Auto 7.9 % (0.0-11.0); Neutrophils Percent Auto 60.1 % (42.0-72.0); Platelet Count* 238 K/uL (140-440); RDW Coefficient of Variation % 13.6 % (11.5-15.5); Red Blood Count 4.51 m/uL (4.00-5.20); Slide Review Reflex No; White Blood Count* 3.15 K/uL (4.50-11.00)
[2022-06-04 12:33] LABS: Basophils Percent Auto 0.3 % (0.0-3.0); Eosinophils Percent Auto 1.4 % (0.0-7.0); Hemoglobin* 12.5 gm/dL (12.0-16.0); Lymphocytes Percent Auto 26.9 % (20-44); Mean Corpuscular HGB Conc 33 gm/dL (32-36); Mean Corpuscular Hemoglobin 29 pg (26-34); Mean Corpuscular Volume 87 fL (80-100); Monocytes Percent Auto 9.2 % (0.0-11.0); Neutrophils Percent Auto 62.2 % (42.0-72.0); Platelet Count* 226 K/uL (140-440); RDW Coefficient of Variation % 13.6 % (11.5-15.5); Red Blood Count 4.39 m/uL (4.00-5.20); White Blood Count* 2.94 K/uL (4.50-11.00)
[2022-06-04 12:49] LABS: Slide Review Reflex No
[2022-06-25 13:40] LABS: Basophils Percent Auto 0.6 % (0.0-3.0); Eosinophils Percent Auto 2.3 % (0.0-7.0); Hematocrit 38.1 % (33.0-51.0); Hemoglobin* 12.5 gm/dL (12.0-16.0); Mean Corpuscular HGB Conc 33 gm/dL (32-36); Mean Corpuscular Hemoglobin 29 pg (26-34); Mean Corpuscular Volume 87 fL (80-100); Monocytes Percent Auto 6.5 % (0.0-11.0); Neutrophils Percent Auto 63.6 % (42.0-72.0); Platelet Count* 284 K/uL (140-440); RDW Coefficient of Variation % 13.8 % (11.5-15.5); Red Blood Count 4.37 m/uL (4.00-5.20); White Blood Count* 3.41 K/uL (4.50-11.00)
[2022-06-25 13:43] LABS: Slide Review Reflex No
[2022-07-02 13:41] LABS: Basophils Percent Auto 0.3 % (0.0-3.0); Eosinophils Percent Auto 2.5 % (0.0-7.0); Hemoglobin* 12.5 gm/dL (12.0-16.0); Lymphocytes Percent Auto 26.8 % (20-44); Mean Corpuscular HGB Conc 33 gm/dL (32-36); Mean Corpuscular Hemoglobin 29 pg (26-34); Mean Corpuscular Volume 88 fL (80-100); Monocytes Percent Auto 10.2 % (0.0-11.0); Neutrophils Percent Auto 60.2 % (42.0-72.0); Platelet Count* 288 K/uL (140-440); RDW Coefficient of Variation % 14.1 % (11.5-15.5); Red Blood Count 4.31 m/uL (4.00-5.20); White Blood Count* 3.25 K/uL (4.50-11.00)
[2022-07-02 13:45] LABS: Slide Review Reflex No
[2022-07-16 14:01] LABS: Basophils Absolute Auto 0.02 K/uL (0.00-0.30); Basophils Percent Auto 0.4 % (0.0-3.0); Eosinophils Absolute Auto 0.07 K/uL (0.00-0.50); Eosinophils Percent Auto 1.5 % (0.0-7.0); Hematocrit 39.8 % (33.0-51.0); Hemoglobin* 13.3 gm/dL (12.0-16.0); Lymphocytes Absolute Auto 1.11 K/uL (0.90-2.90); Lymphocytes Percent Auto 23.8 % (20-44); Mean Corpuscular HGB Conc 33 gm/dL (32-36); Mean Corpuscular Hemoglobin 29 pg (26-34); Mean Corpuscular Volume 88 fL (80-100); Monocytes Percent Auto 7.7 % (0.0-11.0); Neutrophils Absolute Auto 3.11 K/uL (1.7-7.0); Neutrophils Percent Auto 66.6 % (42.0-72.0); Platelet Count* 216 K/uL (140-440); RDW Coefficient of Variation % 13.8 % (11.5-15.5); Red Blood Count 4.53 m/uL (4.00-5.20); White Blood Count* 4.67 K/uL (4.50-11.00)
[2022-07-16 14:04] LABS: Slide Review Reflex No
[2022-07-24 12:36] LABS: Basophils Percent Auto 0.3 % (0.0-3.0); Eosinophils Percent Auto 2.4 % (0.0-7.0); Hematocrit 38.1 % (33.0-51.0); Hemoglobin* 12.7 gm/dL (12.0-16.0); Lymphocytes Percent Auto 21.5 % (20-44); Mean Corpuscular HGB Conc 33 gm/dL (32-36); Mean Corpuscular Hemoglobin 29 pg (26-34); Mean Corpuscular Volume 88 fL (80-100); Monocytes Percent Auto 7.2 % (0.0-11.0); Neutrophils Percent Auto 68.6 % (42.0-72.0); Platelet Count* 243 K/uL (140-440); RDW Coefficient of Variation % 13.5 % (11.5-15.5); Red Blood Count 4.35 m/uL (4.00-5.20); White Blood Count* 3.76 K/uL (4.50-11.00)
[2022-07-24 12:44] LABS: Slide Review Reflex No
[2022-08-28 10:33] LABS: Basophils Percent Auto 0.7 % (0.0-3.0); Eosinophils Percent Auto 3.5 % (0.0-7.0); Hematocrit 39.4 % (33.0-51.0); Hemoglobin* 13.2 gm/dL (12.0-16.0); Immature Granulocytes Pct Auto 0.2 %; Lymphocytes Percent Auto 36.4 % (20-44); Mean Corpuscular HGB Conc 34 gm/dL (32-36); Mean Corpuscular Hemoglobin 30 pg (26-34); Mean Corpuscular Volume 89 fL (80-100); Monocytes Percent Auto 6.4 % (0.0-11.0); Neutrophils Percent Auto 52.8 % (42.0-72.0); Platelet Count* 281 K/uL (140-440); RDW Coefficient of Variation % 13.3 % (11.5-15.5); Red Blood Count 4.41 m/uL (4.00-5.20); White Blood Count* 4.04 K/uL (4.50-11.00)
[2022-08-28 10:37] LABS: Slide Review Reflex No
== END 2023-06-24 15:06 | disposition home or self-care (01) ==
LOC: LAB 11:45
PROVIDERS: PCP Family Medicine; Visit Provider Physician Assistant
DX: D49.6 Neoplasm of unspecified behavior of brain (principal)
CPT/HCPCS: 36415; 70553; 85025; A9575

== ENCOUNTER 2022-08-23 15:32 | Outpatient (CLI) | payer MEDICAID, SELFPAY ==
--- NOTE | 2022-08-23 15:30 | CRLHL7_ITS ---
For Patients: As a result of the Century Cures Act, medical imaging exams and procedure reports are released immediately into your electronic medical record. You may view this report before your referring provider. If you have questions, please contact your health care provider. Indication: Follow up malignant brain tumor. Technique: T1 sagittal as well as diffusion, FLAIR and T2 axial sequences were obtained. Post gadolinium T1 sequences were obtained. Contrast: 15 cc DOTAREM Comparison: 07/24/2022. Findings: Infiltrating tumor in the left temporal parietal occipital junction region, with extension into the left basal ganglia, thalamus and cerebral peduncle. The extent of the T2 signal changes and central pathologic gadolinium enhancement associated with the lesion are considerably improved from 07/24/2022. The previous considerable left hemispheric mass effect as resolved, with re-expansion of the left lateral ventricle and return of the midline structures to normal position. There is some diffusion restriction in the central portion of the lesion consistent with necrosis. Couple of punctate foci of altered susceptibility are seen at the periphery of the lesion, appearance unchanged. No new parenchymal signal abnormality or new pathologic gadolinium enhancement is seen distant from the site of the primary tumor. Grossly normal flow voids are maintained in the directly imaged intracranial vascular structures. The craniovertebral junction is unremarkable, with a patent foramen magnum. Both temporal bones are clear. The paranasal sinuses are clear. Impression: 1. Positive response to tumor treatment. This includes near total resolution of the previous mass effect. 2. No new distant findings. Dictated by Michael Hamilton MD @ 08/24/2022 2:08:02 PM (Electronically Signed)
== END 2022-08-23 15:33 | disposition home or self-care (01) ==
LOC: MRI 15:32
PROVIDERS: PCP Family Medicine; Visit Provider Family Medicine
DX: C71.9 Malignant neoplasm of brain, unspecified (principal)
CPT/HCPCS: 70553; A9575

== ENCOUNTER 2022-10-10 14:10 | Outpatient (CLI) | payer MEDICAID, SELFPAY ==
--- NOTE | 2022-10-10 14:30 | CRLHL7_ITS ---
For Patients: As a result of the Century Cures Act, medical imaging exams and procedure reports are released immediately into your electronic medical record. You may view this report before your referring provider. If you have questions, please contact your health care provider. INDICATION: Follow-up GBM resection. TECHNIQUE: Brain MRI with contrast. The following sequences were obtained: DWI and ADC mapping sequences. Sagittal T1 weighted sequence. Axial FLAIR and NIKO T2 weighted sequences. T1 weighted pre/post-contrast sequences. 15 cc of Dotarem gadolinium based contrast agent was used. COMPARISON: Multiple priors, the most recent from 08/23/2022.. FINDINGS: History of left parietal glioblastoma status post resection and postop chemotherapy. Postsurgical changes of left parietotemporal craniotomy and subjacent resection cavity again demonstrated. Patchy multi nodular enhancement along the resection cavity margin, overall slightly decreased in amount/conspicuity compared to the prior exam. Largest discrete nodular component within the left posterior temporal region measures up to 9 x 23 millimeters in axial plane. No new sites of abnormal enhancement elsewhere within the brain. Confluent FLAIR hyperintense signal abnormality along the resection cavity margins and contiguous brain parenchyma including the posterior frontal/parietal white matter, periatrial region, left occipital and temporal white matter, hippocampal body/tail, posterior thalamus/temporal stem and inferior basal ganglia. Overall decrease in amount and degree of mass effect since prior examination with the exception of the hippocampal region, which is unchanged. Mild is B1000 hyperintensity within the left parietal region likely mostly due to T2 shine through. A few foci of FLAIR hyperintensity scattered within the supratentorial white matter, typical for chronic microvascular ischemic change. No hydrocephalus. Major intracranial flow voids are preserved. The orbital contents are normal. The paranasal sinuses and mastoid air cells are well aerated. IMPRESSION: 1. Findings compatible with a positive treatment response. Postsurgical changes of left parietotemporal craniotomy and subjacent resection cavity with reduced multinodular enhancement/FLAIR hyperintensity along the resection cavity margin/contiguous brain parenchyma compared to prior examination. The exception to this is the hippocampal region, which is unchanged. Attention to this location on follow-up recommended. 2. No acute infarct or other acute intracranial pathology. Dictated by Mian Gallo MD @ 10/10/2022 4:34:06 PM (Electronically Signed)
== END 2022-10-10 14:11 | disposition home or self-care (01) ==
PROVIDERS: PCP Family Medicine; Visit Provider Physician Assistant
DX: I67.89 Other cerebrovascular disease (principal); C71.9 Malignant neoplasm of brain, unspecified; Y84.2 Radiological procedure and radiotherapy as the cause of abnormal reaction of the patient, or of later complication, without mention of misadventure at the time of the procedure
CPT/HCPCS: 70553; A9575

== ENCOUNTER 2022-11-12 07:30 | Outpatient (RCR) | payer BC, MEDICAID, SELFPAY ==
--- NOTE | 2022-06-03 18:00 | OT.OPGNE ---
OT Outpatient General/Neuro Eval OT Outpatient General/Neuro Eval Start: 02/22/22 16:17 Freq: Status: Active Protocol: Document 05/28/22 17:30 LCN (Rec: 06/03/22 14:07 LCN Desktop) E-signed By Susana Brown, OTR/L, CLT OT Outpatient Evaluation Details Type Type Eval Complexity Low Insurance Information Insurance Information Insurance Information Blue Cross/Blue Shield Insurance Information Comments PMAP Outpatient History/Precautions Medical/Functional History Medical History Reviewed Yes Prior Level of Function/Mobility Was working at high level in the community prior to her cancer diagnosis in November of this year. 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 Cancer, hypertension, right sided field cut, improving. Intermittent supervision with medication, medical appointment management, cooking. Has return to driving occasionally when feeling good, radio off, no passengers . Easily distracted, unable to filter extra conversations inside of treatment room. Cancer , HTN, lumbar disc herniation. Sensitive to silicone based adhesives. Prior Medical History Prior Medical History Mia Cedillo is a 51-year-old female who sustained for head bruising after presumed seizure with LOC times 1 1/2 hours before being discovered on 11/30/21. Then was transported to [facility] for initial treatment. Had second stage for temporal parietal craniotomy astrocytoma tumor resection at [facility], three day ICU stay and one and a half weeks inpatient rehabs day. Discharged to home with her initial discharge on ( retired MD from [place], who comes to stay with her for 2 weeks stints 1x/month. Pt was evaluated in Speech Therapy by Doris Bush and in OT by this therapist on 02/11/22. Mia last seen by this therapist on 03/05/22, and stopped coming due to her lmedical regimen demand. Over the summer, patient has been having home oral chemo at a lowered 140 dose for January, February and March, one week on with three weeks off. In May has increased to 320 mg for five day course with three days Weeks off after. She will return for her next scan series and treatment update at [place] on June 112021. Patient Subjective Subjective Patient Subjective Mia has had a couple of episodes with missing Keppra and a meal in late March and again two weeks ago where she lost word finding again w difficulty verbalizing any items for 1 to 2 hours before recovering. These episodes have scared her but they have not required a hospital stay or ER visit. She uses a task checklist on her phone to organize an itemize greater than 25 tasks per day including her medication?s and is very organized, however on days that she is very tired sleeping in will cause a delay in her seizure medication dose. She now returns for OT to address fatigue, stamina building , upper body strengthening, visual control and higher level executive functioning skills. Objective Measures Hand Hand Generalized weakness for all muscles at 4+/5, was a runner earlier in her life. Not yet able to tolerate a fitness/ walking regimen per her chemo process. 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 Medication -- modified independent using [employer] [place], 90% confident with all doses, including her complicated chemo days that are requiring medication?s to be monitored every 1 to 2 hours during the week and day. Cooking ? ? has simplified her routine by doing high protein high Neuro nutrition smoothies for breakfast and lunch and cooks with her boyfriend for evening meals. Driving ? ? patient is doing excellent with 5 to 10 minute trips in the community on her good days. She is very aware of her visual field changes and is able to compensate with Extra head turns and more frequent Blindspot checks. She has excellent insight into her deficits and does not exhibit impulsive behavior. Testing of her trail making test in February 11 by this proposal manager writer was at the 65th to 90th percentile?s. Vision/Hearing Vision Tracking WNL Saccades WNL Near Point of Convergence below WNL Vision Changes Blurring,Light Sensitivity, Field Loss Suspected Vision Changes Comments Pt?s light sensitivity is improved. Visual field test ? ? temporal field is 0 to 60? right and 0 to 80 of 80 left. Nasal field is 0 to 45 right and 0 to 30? Of 45 Right. She is able to read large print Isaac Deltasightter books for 15 to 25 minutes if the room is dimly lit and door is closed. Hearing Hearing Phonophobia/Hearing Hypersensitivity Cognitive Assessments Performed Comments Cognitive Assessments Performed Comments Cog testing deferred to future sessions to suppotr higher level executive function. Word finding issues continue to cause her stress, will perseverate on the use of the word 'machine' when faigued. Has had some episodes recently of losing joint control ( R knee buckled and L shoulder did not engage when she lifted her arm). Wants to work on generalized core muscle control and strengthening. Scheduled for PT evaluation later this month. Assessment Assessment Assessment Mia's brain recovery is impressive and she is adapting to manage her current deficits but wants to progress to being independent with higher level executive function ( planning, reviewing , adapting multi step processes), visual control, upper body strength/total stamina to support safe function with medications, cooking, community mobility, and possible return to work. Occupational Therapy Treatment Plan - OP Potential Rehabilitation Potential Good Set Goals Goals Set with Patient Yes Goals Goals In eight weeks, Mia will demonstrate ? ? 1) understanding of ADL screening, [place] cognitive assessment results and three strategies to support simplifying her daily routines as needed for adequate nutrition and medication safety. 2) WFL skills with simple digit modality test, trail making and locating 19/20 targets on 60 foot by [place] scanning course to support safety with driving. 3) complete executive functioning task sequence of 10?12 step Errands Checklist ( clinic based series of daily functioning tasks) with greater than sign 90% accuracy for preparation, temporal awareness, organization with > 90% accuracy for preparation, temporal awareness, organization/consideration of location, duration, phone/web/ mailing/copying and sequence of tasks. 4) Improving near point of convergence with decreased visual symptoms/improved reading tolerance to one hour without headaches and use of three lighting/environmental strategies to support this. Treatment Plan Treatment Plan Evaluation,Therapeutic Exercise,Therapeutic Activities,Self-Care/Home Management,Education, Functional Cognitive Skil Expected Frequency 1-2x Week Expected Duration 8-10 Weeks Certification Certification I Certify That: Therapy Services Provided, Therapy Plan Established, Therapy Plan Reviewed
== END 2023-02-19 11:59 | disposition home or self-care (01) ==
PROVIDERS: PCP Family Medicine; Visit Provider Internal Medicine
DX: R47.01 Aphasia (principal); D49.6 Neoplasm of unspecified behavior of brain; R53.1 Weakness; Z51.89 Encounter for other specified aftercare
CPT/HCPCS: 85025; 92507; 97110; 97161; 97162; 97165; 97535; X5282

== ENCOUNTER 2022-11-22 07:05 | Outpatient (CLI) | payer MEDICAID, SELFPAY ==
--- NOTE | 2022-11-22 07:15 | CRLHL7_ITS ---
For Patients: As a result of the 21st Century Cures Act, medical imaging exams and procedure reports are released immediately into your electronic medical record. You may view this report before your referring provider. If you have questions, please contact your health care provider. Indication: GBM, assess treatment response Technique: Noncontrast sagittal T1, axial FLAIR, T2 turbo spine echo, and diffusion weighted images. Supplemental post contrast T1 weighted axial and coronal sequences are provided after administration of 15 mL gadolinium-based IV contrast. Comparison: MRI 10/10/2022, 08/23/2022, 07/24/2022 Findings: Postoperative changes of left temporoparietal craniotomy flap and underlying resection cavity in the left lateral temporal lobe. Enlargement of T2 heterogeneous mass in the right parietal lobe measuring up to 3.3 x 2.7 cm axially (series 6, image 25), previously 3 x 2.1 cm with worsening T1 shortening and associated enhancement. Moderate worsening of adjacent vasogenic edema in the right parietal lobe. The region of pathologic enhancement which extends from the cortex to the left lateral ventricle periventricular white matter measures 4.1 x 3.3 cm (series 11, image 71) previously 3.1 x 2.2 cm. There is increased mass effect on the left atrium of the lateral ventricle. Progressive worsening FLAIR signal abnormality in the left thalamus with new 5 mm focus of enhancement, also concerning for tumor progression. Otherwise stable diffuse masslike confluent FLAIR signal abnormality involving the left temporal lobe, left hippocampus, and internal capsule. No hydrocephalus. No midline shift. There are multiple foci of susceptibility artifact in the enhancing portions of the mass likely due to areas of hemorrhage. Expected severe artifact at the left temporal lobe resection cavity site. Expected intracranial vascular flow voids are preserved. The orbits are unremarkable. The paranasal sinuses are clear. The mastoid air cells are clear. Impression: 1. Enlargement of masslike abnormal FLAIR signal, T1 hypointensity, and enhancement in the left parietal lobe extending from the cortex to the lateral ventricle with associated moderate vasogenic edema concerning for tumor progression. Increased mass effect on the left atrium and left ventricle without hydrocephalus. 2. Progressive worsening FLAIR signal abnormality in the left thalamus with new 5 mm focus of enhancement, also concerning for tumor progression. 3. Otherwise stable diffuse confluent masslike signal abnormalities in the left temporal lobe, hippocampus, and left basal ganglia suggestive of residual high-grade glial neoplasm. Dictated by Gilberto Christian MD @ 11/22/2022 12:33:39 PM (Electronically Signed)
== END 2022-11-22 07:06 | disposition home or self-care (01) ==
PROVIDERS: PCP Family Medicine; Visit Provider Physician Assistant
DX: C71.2 Malignant neoplasm of temporal lobe (principal)
CPT/HCPCS: 70553; A9575

== ENCOUNTER 2023-01-16 13:30 | Outpatient (RCR) | payer MEDICAID, SELFPAY ==
--- NOTE | 2022-09-06 11:50 | URNOTE ---
Request received for authorization for Bevacizumab-bvzr (Zirabev) (Q5118). Prior authorization is not required per [facility] drug authorization list.
[2022-09-09 12:52] LABS: Basophils Absolute Auto 0.02 K/uL (0.00-0.30); Basophils Percent Auto 0.4 % (0.0-3.0); Eosinophils Absolute Auto 0.04 K/uL (0.00-0.50); Eosinophils Percent Auto 0.7 % (0.0-7.0); Hematocrit 41.2 % (33.0-51.0); Hemoglobin* 13.7 gm/dL (12.0-16.0); Lymphocytes Percent Auto 15.6 % (20-44); Mean Corpuscular HGB Conc 33 gm/dL (32-36); Mean Corpuscular Hemoglobin 30 pg (26-34); Mean Corpuscular Volume 91 fL (80-100); Monocytes Percent Auto 4.5 % (0.0-11.0); Neutrophils Percent Auto 78.8 % (42.0-72.0); Platelet Count* 242 K/uL (140-440); RDW Coefficient of Variation % 13.2 % (11.5-15.5); Red Blood Count 4.54 m/uL (4.00-5.20); White Blood Count* 5.56 K/uL (4.50-11.00)
[2022-09-09 12:56] LABS: Slide Review Reflex No
[2022-09-09 12:56] LABS: Appearance Urine Clear (Clear); Bilirubin Urine Negative (Negative); Blood Urine Negative (Negative); Color Urine Yellow (Yellow); Glucose Urine Negative (Negative); Ketones Urine Negative (Negative); Leukocyte Esterase Urine Negative (Negative); Nitrite Urine Negative (Negative); Protein Urine Negative (Negative); Specific Gravity Urine 1.015 (1.000-1.030); Urobilinogen Urine 0.2 (0.2-1.0); pH Urine 8.5 (5.0-8.5)
[2022-09-09 13:06] LABS: Albumin* 4.5 g/dL (3.3-5.0); Chloride* 103 mmol/L (96-114)
[2022-09-09 13:07] LABS: Potassium* 4.3 mmol/L (3.6-5.1); Sodium* 140 mmol/L (135-149)
[2022-09-09 13:09] LABS: Aspartate Amino Transferase* 28 U/L (12-35); Bilirubin Total* 0.3 mg/dL (0.1-1.5); Carbon Dioxide* 29 mmol/L (20-32); Creatinine* 0.8 mg/dL (0.5-1.5); Estimated Glomerular Filt Rate 89 ml/min
[2022-09-09 13:10] LABS: Alanine Aminotransferase* 38 U/L (4-35); Alkaline Phosphatase* 56 U/L (40-150); Blood Urea Nitrogen* 9 mg/dL (7-30); Calcium* 9.5 mg/dL (8.4-10.6); Glucose* 93 mg/dL (60-115); Total Protein* 7.2 g/dL (6.0-8.3)
[2022-09-09 13:15] VITALS: BP 136/85; PULSE 75; RESP 14; TEMP 36.7; O2SAT 97
[2022-09-09] MEDS: ACETAMINOPHEN 325 MG TABLET 650 MG PO (13:25)
[2022-09-09] MEDS: diphenhydrAMINE 25 MG CAPSULE PO (13:25)
[2022-09-30 10:45] LABS: Appearance Urine Clear (Clear); Bilirubin Urine Negative (Negative); Blood Urine Negative (Negative); Color Urine Yellow (Yellow); Glucose Urine Negative (Negative); Ketones Urine Negative (Negative); Leukocyte Esterase Urine Negative (Negative); Nitrite Urine Negative (Negative); Protein Urine Negative (Negative); Urobilinogen Urine 0.2 (0.2-1.0)
[2022-09-30 10:50] LABS: Basophils Percent Auto 0.6 % (0.0-3.0); Eosinophils Percent Auto 5.9 % (0.0-7.0); Hematocrit 39.5 % (33.0-51.0); Mean Corpuscular HGB Conc 33 gm/dL (32-36); Mean Corpuscular Hemoglobin 30 pg (26-34); Mean Corpuscular Volume 92 fL (80-100); Monocytes Percent Auto 9.2 % (0.0-11.0); Neutrophils Percent Auto 46.3 % (42.0-72.0); Platelet Count* 268 K/uL (140-440); RDW Coefficient of Variation % 12.9 % (11.5-15.5); White Blood Count* 3.58 K/uL (4.50-11.00)
[2022-09-30 10:55] LABS: Slide Review Reflex No
[2022-09-30 11:07] LABS: Albumin* 4.1 g/dL (3.3-5.0); Chloride* 104 mmol/L (96-114); Sodium* 137 mmol/L (135-149)
[2022-09-30 11:08] LABS: Potassium* 3.6 mmol/L (3.6-5.1)
[2022-09-30 11:10] LABS: Alanine Aminotransferase* 27 U/L (4-35); Alkaline Phosphatase* 40 U/L (40-150); Aspartate Amino Transferase* 29 U/L (12-35); Bilirubin Total* 0.3 mg/dL (0.1-1.5); Blood Urea Nitrogen* 15 mg/dL (7-30); Carbon Dioxide* 30 mmol/L (20-32); Creatinine* 0.9 mg/dL (0.5-1.5); Estimated Glomerular Filt Rate 77 ml/min; Glucose* 85 mg/dL (60-115); Total Protein* 6.7 g/dL (6.0-8.3)
[2022-09-30] MEDS: 0.9 % SODIUM CHLORIDE 250 ml IV (12:00)
[2022-09-30] MEDS: diphenhydrAMINE 25 MG CAPSULE PO (12:05)
[2022-09-30] MEDS: ACETAMINOPHEN 325 MG TABLET 650 MG PO (12:05)
[2022-10-21 13:42] LABS: Appearance Urine Clear (Clear); Bilirubin Urine Negative (Negative); Blood Urine Negative (Negative); Color Urine Yellow (Yellow); Glucose Urine Negative (Negative); Ketones Urine Negative (Negative); Leukocyte Esterase Urine Negative (Negative); Nitrite Urine Negative (Negative); Protein Urine Negative (Negative); Urobilinogen Urine 0.2 (0.2-1.0)
[2022-10-21 13:48] LABS: Basophils Absolute Auto 0.02 K/uL (0.00-0.30); Basophils Percent Auto 0.3 % (0.0-3.0); Eosinophils Absolute Auto 0.08 K/uL (0.00-0.50); Eosinophils Percent Auto 1.3 % (0.0-7.0); Hematocrit 40.8 % (33.0-51.0); Hemoglobin* 13.6 gm/dL (12.0-16.0); Immature Granulocytes Abs Auto 0.01 K/uL (0.00-0.30); Immature Granulocytes Pct Auto 0.2 %; Lymphocytes Percent Auto 13.5 % (20-44); Mean Corpuscular HGB Conc 33 gm/dL (32-36); Mean Corpuscular Hemoglobin 30 pg (26-34); Mean Corpuscular Volume 91 fL (80-100); Monocytes Percent Auto 3.7 % (0.0-11.0); Platelet Count* 276 K/uL (140-440); RDW Coefficient of Variation % 12.8 % (11.5-15.5); Red Blood Count 4.49 m/uL (4.00-5.20); White Blood Count* 6.01 K/uL (4.50-11.00)
[2022-10-21 13:50] LABS: Slide Review Reflex No
[2022-10-21 14:07] LABS: Albumin* 4.4 g/dL (3.3-5.0)
[2022-10-21 14:08] LABS: Chloride* 107 mmol/L (96-114); Potassium* 3.9 mmol/L (3.6-5.1); Sodium* 140 mmol/L (135-149)
[2022-10-21 14:10] LABS: Aspartate Amino Transferase* 28 U/L (12-35); Bilirubin Total* 0.4 mg/dL (0.1-1.5); Blood Urea Nitrogen* 14 mg/dL (7-30); Carbon Dioxide* 28 mmol/L (20-32); Creatinine* 0.9 mg/dL (0.5-1.5); Estimated Glomerular Filt Rate 77 ml/min; Total Protein* 7.1 g/dL (6.0-8.3)
[2022-10-21 14:11] VITALS: BP 129/90; PULSE 83; RESP 16; TEMP 36.4; O2SAT 97
[2022-10-21 14:11] LABS: Alanine Aminotransferase* 26 U/L (4-35); Alkaline Phosphatase* 47 U/L (40-150); Calcium* 9.4 mg/dL (8.4-10.6); Glucose* 95 mg/dL (60-115)
[2022-10-21] MEDS: ACETAMINOPHEN 325 MG TABLET 650 MG PO (14:30)
[2022-10-21] MEDS: diphenhydrAMINE 25 MG CAPSULE PO (14:30)
--- NOTE | 2022-10-21 16:25 | ONC.NURNOTE ---
totally healled scab over burn of lt foot 10 days ago. no reddness or drainage. numb fingertips better with time. urine protein neg. hubert treatment well.
[2022-11-11 13:20] LABS: Basophils Percent Auto 0.5 % (0.0-3.0); Eosinophils Percent Auto 3.4 % (0.0-7.0); Hematocrit 41.1 % (33.0-51.0); Hemoglobin* 13.7 gm/dL (12.0-16.0); Lymphocytes Percent Auto 31.7 % (20-44); Mean Corpuscular HGB Conc 33 gm/dL (32-36); Mean Corpuscular Hemoglobin 30 pg (26-34); Mean Corpuscular Volume 90 fL (80-100); Monocytes Percent Auto 9.1 % (0.0-11.0); Neutrophils Percent Auto 55.3 % (42.0-72.0); Platelet Count* 262 K/uL (140-440); RDW Coefficient of Variation % 12.6 % (11.5-15.5); Red Blood Count 4.55 m/uL (4.00-5.20); White Blood Count* 4.07 K/uL (4.50-11.00)
[2022-11-11 13:27] LABS: Slide Review Reflex No
[2022-11-11 13:30] VITALS: BP 129/78; PULSE 73; RESP 16; TEMP 36.8; O2SAT 98
--- NOTE | 2022-11-11 13:30 | ONC.FOLLOWUP ---
Intake Vital Signs 09/09/22 13:15 10/21/22 14:11 11/11/22 13:30 Weight 82.735 kg 86.438 kg 84.935 kg BP 136/85 129/90 H 129/78 BP Location Left Arm BP Position Sitting Sitting Sitting BP Cuff Size Large Adult BP Source Automatic Cuff Respiration 14 16 16 Pulse 75 83 73 Temp 98.1 F 97.6 F 98.2 F Temp Source Oral Temporal Artery Scan Temporal Artery Scan Pulse Oximetry (%) 97 97 98 Oxygen Delivery Method Room Air Intake Visit Reasons: Glioblastoma Showcase Trimmer Required: No Allergies adhesive Allergy (Mild, Verified 11/11/22 13:17) Home Medications Acetaminophen (Acetaminophen 325 Mg Tablet) 650 mg PO ONCE ONE Stop: 11/11/22 23:59 Diphenhydramine HCl (Diphenhydramine 25 Mg Capsule) 25 mg PO ONCE ONE Stop: 11/11/22 23:59 Bevacizumab-bvzr 600 mg/ IV Miscellaneous Supplies 1 each/Sodium Chloride 124 mls @ 248 mls/hr IVPB ONCE ZOE Stop: 11/11/22 23:59 Prochlorperazine (Prochlorperazine 5 Mg/Ml Vial) 10 mg IV ONCE PRN Stop: 11/11/22 23:59 Sodium Chloride (0.9 % Sodium Chloride 250 Ml) 250 ml IV . DIRECTED PRN Last Admin: 09/30/22 12:00 Dose: 250 ml Referred by:: Ch[place] Mohamud MD HPI HPI Patient Seen On:: Nov 11, 2022 [facility] Medical History (Updated 09/30/22 @ 11:58 by Hazel Rodriguez PA-C) Astrocytoma brain tumor Cardiac murmur Cognitive deficits Essential hypertension GERD (gastroesophageal reflux disease) History of herniated intervertebral disc History of non anemic vitamin B12 deficiency History of thyroid nodule Surgical History (Updated 02/13/22 @ 09:14 by Dianne Garcia) History of craniotomy History of tonsillectomy Social History Smoking Status: Former smoker Little interest or pleasure in doing things: several days Feeling down, depressed, or hopeless: nearly every day Results Results [facility] Chemistry: Sodium 140 mmol/L (135-149) 10/21/22 Potassium 3.9 mmol/L (3.6-5.1) 10/21/22 Chloride 107 mmol/L (96-114) 10/21/22 Carbon Dioxide 28 mmol/L (20-32) 10/21/22 Calcium 9.4 mg/dL (8.4-10.6) 10/21/22 Glucose 95 mg/dL (60-115) 10/21/22 BUN 14 mg/dL (7-30) 10/21/22 Creatinine 0.9 mg/dL (0.5-1.5) 10/21/22 Total Protein 7.1 g/dL (6.0-8.3) 10/21/22 Albumin 4.4 g/dL (3.3-5.0) 10/21/22 AST 28 U/L (12-35) 10/21/22 ALT 26 U/L (4-35) 10/21/22 Alkaline Phosphatase 47 U/L (40-150) 10/21/22 Total Bilirubin 0.4 mg/dL (0.1-1.5) 10/21/22 Estimated GFR 77 ml/min 10/21/22 [facility] Hematology: WBC 4.07 K/uL (4.50-11.00) L 11/11/22 RBC 4.55 m/uL (4.00-5.20) 11/11/22 Hgb 13.7 gm/dL (12.0-16.0) 11/11/22 Hct 41.1 % (33.0-51.0) 11/11/22 MCV 90 fL (80-100) 11/11/22 MCH 30 pg (26-34) 11/11/22 MCHC 33 gm/dL (32-36) 11/11/22 Plt Count 262 K/uL (140-440) 11/11/22 Neut % (Auto) 55.3 % (42.0-72.0) 11/11/22 Neut # (Auto) 2.30 K/uL (1.7-7.0) 11/11/22 Lymph % (Auto) 31.7 % (20-44) 11/11/22 [place] % (Auto) 9.1 % (0.0-11.0) 11/11/22 Eos % (Auto) 3.4 % (0.0-7.0) 11/11/22 Baso % (Auto) 0.5 % (0.0-3.0) 11/11/22
[2022-11-11 13:42] LABS: Appearance Urine Clear (Clear); Bilirubin Urine Negative (Negative); Blood Urine Negative (Negative); Color Urine Yellow (Yellow); Glucose Urine Negative (Negative); Ketones Urine Negative (Negative); Leukocyte Esterase Urine Negative (Negative); Nitrite Urine Negative (Negative); Protein Urine Negative (Negative); Urobilinogen Urine 0.2 (0.2-1.0)
[2022-11-11 14:14] LABS: Albumin* 4.2 g/dL (3.3-5.0); Chloride* 104 mmol/L (96-114)
[2022-11-11 14:15] LABS: Potassium* 4.3 mmol/L (3.6-5.1); Sodium* 138 mmol/L (135-149)
[2022-11-11 14:17] LABS: Alkaline Phosphatase* 50 U/L (40-150); Aspartate Amino Transferase* 22 U/L (12-35); Bilirubin Total* 0.3 mg/dL (0.1-1.5); Blood Urea Nitrogen* 12 mg/dL (7-30); Carbon Dioxide* 31 mmol/L (20-32); Creatinine* 0.8 mg/dL (0.5-1.5); Estimated Glomerular Filt Rate 89 ml/min; Total Protein* 7.1 g/dL (6.0-8.3)
[2022-11-11 14:18] LABS: Alanine Aminotransferase* 20 U/L (4-35); Calcium* 9.5 mg/dL (8.4-10.6); Glucose* 87 mg/dL (60-115)
[2022-11-11] MEDS: diphenhydrAMINE 25 MG CAPSULE PO (14:49)
[2022-11-11] MEDS: ACETAMINOPHEN 325 MG TABLET 650 MG PO (14:49)
--- NOTE | 2022-11-14 12:09 | ONC.NURNOTE ---
Addendum entered and electronically signed by Megan Roberts APRN 11/18/22 17:36: 11/18/22 Order placed by Hazel Rodriguez PA-C for MR brain w &w/0 contrast for 11/26/22. Left message with radiology scheduling and with patient to see if scan could be moved up to 11/21/22 or 11/22/22 to give more time for MR to be read and reported prior to 11/28/22 follow up appointment at [place]. Addendum entered by Susana Mckoy RN 11/14/22 13:33: Cutter Barrel Drum talked with [facility] and they are requesting that an MRI with and without contrast be ordered prior to her appointment on 11/28/2022. AMBULETTE DRIVER to be notified of this ask. [facility] to look into [facility] system for treatment guidance following this appointment. [facility] does note that this MRI is following completion of her temodar, it is not in their habit to order the MRI monthly. Original Note: Patient's mother called [facility] stating that patient needs to have an MRI prior to her appointment in [place] on 11/28/2022. She is frustrated that [facility] will not order this. Cutter Barrel Drum talked with [facility] and she is willing to order if we get guidance from the primary medical oncologist. Cutter Barrel Drum contacted [facility] and it is their policy in Med-Onc not to order imaging at outside offices. They will call back with guidance for AMBULETTE DRIVER to order MRI.
--- NOTE | 2022-11-22 13:37 | ONC.NURNOTE ---
Manager Primary Care received phone call from radiology that sending patient MRI results. These were ordered by April Rodriguez on recommendations from [facility]. Results were faxed to [facility] at [phone], and talked with Reuse Technician - she will notify the patient's oncologist, Dr. Noah Doherty. Patient notified that results were faxed to [facility] and to discuss with them at appointment next week.
--- NOTE | 2022-11-30 04:00 | ONC.PROVNOTE ---
[facility] Provider Note Clinic Note Narrative: Treatment Plan: Zirabev (bevacizumab biosimilar) plus lomustine Ms. Cedillo follows at [facility] for medical management of glioblastoma. She also follows concurrently with [facility] at [place] so that she is able to receive infusional therapy closer to her home. She completed MR brain 11/22/22 to assess treatment response and was recently evaluated at [facility] by Dr. Farhat Mcginnis on 11/28/22. 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 It is also noted that Ms. Cedillo was started on oral lomustine due to disease progression. I have added 1 cycle of zirabev to treatment plan.
--- NOTE | 2022-12-02 09:26 | URNOTE ---
Request received for authorization for Mvasi (Bevacizumab-awwb) ([id number]).?Prior authorization is not required per [employer]?Medical injectable drug authorization list.
--- NOTE | 2022-12-02 10:25 | ONC.NURNOTE ---
Notified pt that Zirabev is unavailable for infusion today d/t being on back order, however Mvasi is can be available by tomorrow and is covered by insurance. Appt moved to 12/03. Pt has questions about timing of starting Lomustine per [facility] team and when follow up appts would be due; sql report writer to update pt's [facility] team with change in infusion schedule and review plan prior to appt tomorrow.
[2022-12-03 14:00] VITALS: BP 118/82; PULSE 66; RESP 18; TEMP 37.4; O2SAT 99
[2022-12-03 14:13] LABS: Appearance Urine Clear (Clear); Bilirubin Urine Negative (Negative); Blood Urine Negative (Negative); Color Urine Yellow (Yellow); Glucose Urine Negative (Negative); Ketones Urine Negative (Negative); Leukocyte Esterase Urine Negative (Negative); Nitrite Urine Negative (Negative); Protein Urine Negative (Negative); Specific Gravity Urine <= 1.005 (1.000-1.030); Urobilinogen Urine 0.2 (0.2-1.0); pH Urine 6.5 (5.0-8.5)
[2022-12-03 14:15] LABS: Basophils Percent Auto 0.4 % (0.0-3.0); Eosinophils Percent Auto 2.2 % (0.0-7.0); Hematocrit 38.9 % (33.0-51.0); Immature Granulocytes Pct Auto 0.2 %; Lymphocytes Percent Auto 27.2 % (20-44); Mean Corpuscular HGB Conc 33 gm/dL (32-36); Mean Corpuscular Hemoglobin 30 pg (26-34); Mean Corpuscular Volume 90 fL (80-100); Monocytes Percent Auto 6.5 % (0.0-11.0); Neutrophils Percent Auto 63.5 % (42.0-72.0); Platelet Count* 235 K/uL (140-440); RDW Coefficient of Variation % 12.4 % (11.5-15.5); Red Blood Count 4.33 m/uL (4.00-5.20); White Blood Count* 4.49 K/uL (4.50-11.00)
[2022-12-03 14:16] LABS: Slide Review Reflex No
[2022-12-03 14:35] LABS: Albumin* 4.2 g/dL (3.3-5.0); Chloride* 105 mmol/L (96-114); Sodium* 136 mmol/L (135-149)
[2022-12-03 14:38] LABS: Alkaline Phosphatase* 47 U/L (40-150); Aspartate Amino Transferase* 20 U/L (12-35); Bilirubin Total* 0.2 mg/dL (0.1-1.5); Blood Urea Nitrogen* 15 mg/dL (7-30); Carbon Dioxide* 26 mmol/L (20-32); Creatinine* 0.7 mg/dL (0.5-1.5); Estimated Glomerular Filt Rate 104 ml/min
[2022-12-03 14:39] LABS: Alanine Aminotransferase* 16 U/L (4-35); Calcium* 9.3 mg/dL (8.4-10.6); Glucose* 90 mg/dL (60-115)
[2022-12-03] MEDS: ACETAMINOPHEN 325 MG TABLET 650 MG PO (15:01)
[2022-12-03] MEDS: diphenhydrAMINE 25 MG CAPSULE PO (15:01)
[2022-12-03] MEDS: 0.9 % SODIUM CHLORIDE 250 ml IV (15:42)
--- NOTE | 2022-12-19 16:34 | ONC.NURNOTE ---
Discussed with Dr. Sevilla whether to continue Mvasi, as patient received it last cycle d/t unavailability of Zirabev, or to switch back to Zirabev, which pt has previously received. Per Dr. Sevilla, as Mvasi and Zirabev are biosimilars of Avastin, proceeding with either are fine. Discussed with pharmacy; plan to proceed with Mvasi as it been consistently available.
[2022-12-24 14:19] LABS: Appearance Urine Clear (Clear); Bilirubin Urine Negative (Negative); Blood Urine Negative (Negative); Color Urine Yellow (Yellow); Glucose Urine Negative (Negative); Ketones Urine Negative (Negative); Leukocyte Esterase Urine Trace (Negative); Nitrite Urine Negative (Negative); Protein Urine Negative (Negative); Specific Gravity Urine <= 1.005 (1.000-1.030); Urobilinogen Urine 0.2 (0.2-1.0)
[2022-12-24 14:26] LABS: Basophils Percent Auto 0.3 % (0.0-3.0); Eosinophils Percent Auto 0.8 % (0.0-7.0); Hematocrit 39.5 % (33.0-51.0); Hemoglobin* 13.5 gm/dL (12.0-16.0); Mean Corpuscular HGB Conc 34 gm/dL (32-36); Mean Corpuscular Hemoglobin 31 pg (26-34); Mean Corpuscular Volume 89 fL (80-100); Monocytes Percent Auto 8.1 % (0.0-11.0); Neutrophils Percent Auto 62.8 % (42.0-72.0); Platelet Count* 180 K/uL (140-440); RDW Coefficient of Variation % 12.5 % (11.5-15.5); Red Blood Count 4.43 m/uL (4.00-5.20); White Blood Count* 3.72 K/uL (4.50-11.00)
[2022-12-24 14:30] LABS: Slide Review Reflex No
[2022-12-24 14:35] LABS: Albumin* 4.6 g/dL (3.3-5.0); Chloride* 103 mmol/L (96-114)
[2022-12-24 14:36] LABS: Potassium* 4.2 mmol/L (3.6-5.1); Sodium* 136 mmol/L (135-149)
[2022-12-24 14:38] LABS: Aspartate Amino Transferase* 23 U/L (12-35); Bilirubin Total* 0.4 mg/dL (0.1-1.5); Blood Urea Nitrogen* 14 mg/dL (7-30); Carbon Dioxide* 28 mmol/L (20-32); Creatinine* 0.8 mg/dL (0.5-1.5); Estimated Glomerular Filt Rate 89 ml/min; Total Protein* 7.2 g/dL (6.0-8.3)
[2022-12-24 14:39] LABS: Alanine Aminotransferase* 19 U/L (4-35); Alkaline Phosphatase* 49 U/L (40-150); Calcium* 9.6 mg/dL (8.4-10.6); Glucose* 93 mg/dL (60-115)
[2022-12-24 14:40] LABS: RBC Urine 0-2 (0-2); Squamous Epithelial Cell Urine Few (None-Few); WBC Urine 0-2 (0-5)
[2022-12-24] MEDS: diphenhydrAMINE 25 MG CAPSULE PO (15:49)
[2022-12-24] MEDS: ACETAMINOPHEN 325 MG TABLET 650 MG PO (15:49)
[2022-12-24] MEDS: 0.9 % SODIUM CHLORIDE 250 ml IV (15:49)
[2022-12-24 16:05] VITALS: BP 127/86; PULSE 63; RESP 16; TEMP 37.1; O2SAT 96
[2022-12-31 13:39] LABS: Basophils Absolute Auto 0.02 K/uL (0.00-0.30); Basophils Percent Auto 0.4 % (0.0-3.0); Eosinophils Absolute Auto 0.03 K/uL (0.00-0.50); Eosinophils Percent Auto 0.6 % (0.0-7.0); Hematocrit 40.2 % (33.0-51.0); Hemoglobin* 13.5 gm/dL (12.0-16.0); Immature Granulocytes Abs Auto 0.01 K/uL (0.00-0.30); Immature Granulocytes Pct Auto 0.2 %; Lymphocytes Absolute Auto 1.17 K/uL (0.90-2.90); Lymphocytes Percent Auto 22.3 % (20-44); Mean Corpuscular HGB Conc 34 gm/dL (32-36); Mean Corpuscular Hemoglobin 31 pg (26-34); Mean Corpuscular Volume 91 fL (80-100); Monocytes Percent Auto 5.3 % (0.0-11.0); Neutrophils Absolute Auto 3.74 K/uL (1.7-7.0); Neutrophils Percent Auto 71.2 % (42.0-72.0); Platelet Count* 133 K/uL (140-440); RDW Coefficient of Variation % 12.9 % (11.5-15.5); Red Blood Count 4.41 m/uL (4.00-5.20); White Blood Count* 5.25 K/uL (4.50-11.00)
[2022-12-31 13:47] LABS: Slide Review Reflex No
[2023-01-07 14:00] LABS: Basophils Absolute Auto 0.01 K/uL (0.00-0.30); Basophils Percent Auto 0.2 % (0.0-3.0); Eosinophils Absolute Auto 0.05 K/uL (0.00-0.50); Eosinophils Percent Auto 1.1 % (0.0-7.0); Hematocrit 39.2 % (33.0-51.0); Hemoglobin* 13.2 gm/dL (12.0-16.0); Lymphocytes Absolute Auto 1.13 K/uL (0.90-2.90); Lymphocytes Percent Auto 24.1 % (20-44); Mean Corpuscular HGB Conc 34 gm/dL (32-36); Mean Corpuscular Hemoglobin 31 pg (26-34); Mean Corpuscular Volume 91 fL (80-100); Monocytes Percent Auto 5.3 % (0.0-11.0); Neutrophils Absolute Auto 3.24 K/uL (1.7-7.0); Neutrophils Percent Auto 69.3 % (42.0-72.0); Platelet Count* 221 K/uL (140-440); RDW Coefficient of Variation % 12.8 % (11.5-15.5); Red Blood Count 4.31 m/uL (4.00-5.20); White Blood Count* 4.68 K/uL (4.50-11.00)
[2023-01-07 14:04] LABS: Slide Review Reflex No
--- NOTE | 2023-01-14 15:51 | ONC.NURNOTE ---
Pt's mother Libby called today wanting to schedule pt's infusion for tomorrow. Crew Caller called pt's oncology team at [facility] to clarify if pt should be getting her MVASI this week. Per [facility] team, they will be faxing a treatment letter for the MVASI to be given and they will addend their note from 01/13/23 with updated treatment plan. Pt added to schedule on 01/16/23 due to pharmacy needing to order drug. Message left with Libby to call with update.
[2023-01-16 13:14] LABS: Appearance Urine Clear (Clear); Bilirubin Urine Negative (Negative); Blood Urine Negative (Negative); Color Urine Yellow (Yellow); Glucose Urine Negative (Negative); Ketones Urine Negative (Negative); Leukocyte Esterase Urine Negative (Negative); Nitrite Urine Negative (Negative); Protein Urine Negative (Negative); Urobilinogen Urine 0.2 (0.2-1.0); pH Urine 7.5 (5.0-8.5)
[2023-01-16 13:21] VITALS: BP 127/79; PULSE 63; RESP 16; TEMP 36.6; O2SAT 97
[2023-01-16] MEDS: ACETAMINOPHEN 325 MG TABLET 650 MG PO (14:08)
[2023-01-16] MEDS: diphenhydrAMINE 25 MG CAPSULE PO (14:09)
--- NOTE | 2023-01-31 11:55 | ONC.NURNOTE ---
Patient's mother has been calling [facility] to get patient scheduled for an MRI. Patient is due to be seen with Dr. granda 02/06, and she would like to wait to see patient to order the scan. Mother is frustrated by this, but understanding that Dr. Granda's name goes on the order, so she wants to see patient first. Recommendation was sent from [facility] to have this done around 02/27, per mother should be done 4 weeks after radiation. Radiation finishes 02/03/2023. This would be close to this date, and she was told that this timing can be discussed with Dr. Granda at visit on 02/06/2023. Mother does note that patient has not been discussing care with her, and showing frustration due to steroids that she is on. Note left in patient chart to see if she still wants her mother on a release and to determine whether she would like her called during the visit on 02/06/2023.
--- NOTE | 2023-02-03 08:14 | PC.NURSE ---
Pt called to request an appointment this week for infusion as her last radiation treatment is today, 02/03/2023. RN reviewed the chart and noted pt is scheduled for labs, MD visit, and treatment on , 02/06/2023 starting at 1:00 PM. Pt verbalized understanding.
--- NOTE | 2023-02-04 14:12 | ONC.NURNOTE ---
Websphere Consultant was working with human resources benefits coordinator, Olivia today regarding patient. Patient was in the ER yesterday and had CT of the head. [facility] team is requesting a MRI of the head to be done. Oncologist is not on site today, and she had previously requested to see patient prior to ordering tests on this patient. Team was told that our radiology department will take outside orders, so option would be to have the [facility] team order this scan or patient to go to ER again to have ordered urgently. [facility] team was agreeable to ordering the test and they were transferred to radiology, where scan was scheduled for Friday. Patient has an in-person follow up on . [facility] team is asking to hold avastin at this time, until they call our office with the plan. Patient's appointments cancelled.
== END 2023-03-01 23:59 | disposition home or self-care (01) ==
LOC: CCIC 13:30
PROVIDERS: PCP Family Medicine; Referring Provider Family Medicine; Visit Provider Clinical Nurse Specialist
DX: C71.2 Malignant neoplasm of temporal lobe (principal)
CPT/HCPCS: 36415; 80053; 81003; 81015; 85025; 96413; 96415; 99202; 99204; 99212; 99214; 99215; A9270; J7050; Q5107; Q5118

== ENCOUNTER 2023-02-04 19:26 | Inpatient (IN) | payer MEDICAID, SELFPAY ==
[2023-02-04 19:44] VITALS: BP 128/81; PULSE 54; RESP 16; TEMP 36.2; O2SAT 98
--- NOTE | 2023-02-04 20:21 | CRLHL7_ITS ---
For Patients: As a result of the Century Cures Act, medical imaging exams and procedure reports are released immediately into your electronic medical record. You may view this report before your referring provider. If you have questions, please contact your health care provider. INDICATION: Headache. Astrocytoma TECHNIQUE: Non-contrast CT of the head is submitted. Compared to prior study from February 03, 2023 FINDINGS: Stable large zone of decreased attenuation with dystrophic calcification involving the posterior left cerebral hemisphere as well as the left thalamus. Much of the decreased attenuation is centered within the posterior left frontal and left parietal lobe with involvement of the posterior left temporal lobe. Postoperative changes compatible left side temporal/parietal craniotomy. No convincing evidence of suspicious hemorrhage seen at this time. There is stable 4-5 millimeters of left to right midline shift. The remainder of the ventricles, sulci and gyri are of normal size, shape and contour. IMPRESSION: 1. Essentially stable large, masslike infiltrative lesion within the left posterior frontal, parietal, temporal, posterior basal ganglia and thalamic regions. Evidence of dystrophic calcification within the substance of this lesion. 2. No convincing evidence of acute hemorrhage seen at this time. Dictated by Raf Devine MD @ 02/04/2023 9:13:42 PM Please note that all CT scans at this facility use dose modulation, iterative reconstruction, and/or weight-based dosing when appropriate to reduce radiation dose to as low as reasonably achievable. Dictated by: Raf Devine MD @ 02/04/2023 21:13:49 (Electronically Signed)
--- NOTE | 2023-02-04 20:23 | ED.GENADULT ---
HPI - General Adult General Date Seen: 02/04/23 Chief complaint: Headache/Migraine Stated complaint: Pain Time Seen by Provider: 02/04/23 19:30 Source: family Mode of arrival: ambulatory Limitations: physical limitation History of Present Illness HPI narrative: Patient is a 52-year-old woman with underlying diagnosis of astrocytoma here with Mom for evaluation of headache. Mom says that she has not really had headaches previously until the past couple of days when she has started to complain of severe headaches. Patient is not very communicative, has some problems with expressive and receptive aphasia. She has not had vomiting although mom says she has not taken anything today. She was seen here last evening, had a head CT which showed midline shift which was apparently new. According to mom, conversation was had with [facility] and an MRI has been scheduled for tomorrow with clinic follow-up for the next day. She did not have anything at home to take for pain, mom came into town from [place] and gave her oxycodone when she started to complain of severe headache again this evening. She is improved to some degree but still complains of bad headache. No fevers or other symptoms per mom's report. I am unclear whether a recommendation was given regarding steroids yesterday but mom did increase her back to 4 mg b.i.d. of dexamethasone, she had decreased recently to 3 mg b.i.d.. Related Data Home Medications Medication Instructions Recorded Confirmed levetiracetam 1,000 mg tablet 1,000 mg PO BID 04/10/22 02/04/23 ondansetron 4 mg disintegrating 8 mg PO .Once as needed PRN 04/10/22 02/04/23 tablet sulfamethoxazole 400 1 tab PO QDAY 09/02/22 02/04/23 mg-trimethoprim 80 mg tablet (Bactrim) dexamethasone 2 mg tablet 4 mg PO Q12H 09/30/22 02/04/23 sennosides 8.6 mg capsule (senna) 8.6 mg PO QDAY PRN 11/11/22 02/04/23 multivitamin (Daily Multi-Vitamin 1 tab PO .QOD 12/24/22 02/04/23 tablet) acetaminophen 500 mg tablet 1,000 mg PO Q6H PRN 02/03/23 02/04/23 calcium citrate 200 mg (950 mg) 200 mg PO DAILY 02/03/23 02/04/23 tablet gabapentin 100 mg capsule 200 mg PO DAILY 02/03/23 02/04/23 prochlorperazine maleate 10 mg 10 mg PO Q6H 02/03/23 02/04/23 tablet (Compazine) regorafenib 40 mg tablet (Stivarga) PO 02/03/23 zinc gluconate 50 mg tablet 50 mg PO DAILY 02/03/23 02/04/23 bevacizumab .ROUTE 02/04/23 Allergies Allergy/AdvReac Type Severity Reaction Status Date / Time adhesive Allergy Mild Verified 12/24/22 15:03 Milk Containing Products Allergy Mild Verified 02/03/23 19:12 (Dairy) Review of Systems Status of ROS: Reports: unobtainable due to medical condition [facility] Medical History History of non anemic vitamin B12 deficiency ?Z86.39 - Personal history of other endocrine, nutritional and metabolic disease (ICD-10) History of thyroid nodule ?Z86.39 - Personal history of other endocrine, nutritional and metabolic disease (ICD-10) History of herniated intervertebral disc ?Z87.39 - Personal history of other diseases of the musculoskeletal system and connective tissue (ICD-10) GERD (gastroesophageal reflux disease) ?K21.9 - Gastro-esophageal reflux disease without esophagitis (ICD-10) Essential hypertension ?I10 - Essential (primary) hypertension (ICD-10) Astrocytoma brain tumor ?C71.9 - Malignant neoplasm of brain, unspecified (ICD-10) Cardiac murmur ?R01.1 - Cardiac murmur, unspecified (ICD-10) Cognitive deficits ?R41.89 - Other symptoms and signs involving cognitive functions and awareness (ICD-10) Surgical History History of tonsillectomy ?Z90.89 - Acquired absence of other organs (ICD-10) History of craniotomy ?Z98.890 - Other specified postprocedural states (ICD-10) Social History Narrative: Youngest child graduates from [employer] 01/14. Supportive mother, significant other. Smoking Status: Never smoker Do you use any of these nicotine containing products: None Second hand tobacco smoke exposure: No How often do you have a drink containing alcohol: never How often do you have six or more drinks on one occasion: Never AUDIT-C Alcohol total score: 0 Non-prescribed substance use: denies use Little interest or pleasure in doing things: several days Feeling down, depressed, or hopeless: nearly every day Exam Narrative: Exam Narrative: Vital signs reviewed In general, an awake woman, looks uncomfortable, holding her head. Head: Normocephalic. Atraumatic. Eyes: She was unwilling to open her eyes for me to evaluate. ENT: No facial trauma. Mucous membranes moist. Neck: Supple Heart: Bradycardic, regular. Lungs: Clear. Abdomen: Soft and nontender. Extremities: Well perfused. Pulses intact. Skin: Warm and dry. Neurologic: She answers some of her mom's questions although much for speech is little nonsensical. This is baseline. Const: Vital Signs, click to edit/add: Vital Signs - 24 hr 02/04/23 19:44 Temperature 97.2 F L Pulse Rate [Right Pulse Oximeter] 54 L Respiratory Rate 16 Blood Pressure [Le ft Upper Arm] 128/81 Pulse Oximetry 98 Oxygen Delivery Me thod Room Air Documenting provider has reviewed patient's vital signs: yes Course Course Hospital Course: Based on the changes in yesterday's head CT I am going to repeat head CT and make sure there are not further shifts. Mom had asked about something for home that ?worked faster, discussed that at this point I think she just needs to be on something on a scheduled basis rather than trying to catch up. Mom wondered about something injectable but for home I did discuss that we typically use oral medications. Mom is a family physician in [place]. Vital Signs Vital signs: Initial Vital Signs Temperature 97.2 F L 02/04/23 19:44 Temperature Source Temporal Artery Scan 02/04/23 19:44 Pulse Rate 54 L 02/04/23 19:44 Pulse Rhythm Regular 02/04/23 19:44 Respiratory Rate 16 02/04/23 19:44 Blood Pressure 128/81 02/04/23 19:44 Blood Pressure Mean 96 02/04/23 19:44 Blood Pressure Position Sitting 02/04/23 19:44 Pulse Oximetry 98 02/04/23 19:44 Oxygen Delivery Method Room Air 02/04/23 19:44 Vital Signs Temperature 97.2 F L 02/04/23 19:44 Pulse Rate 54 L 02/04/23 19:44 Respiratory Rate 16 02/04/23 19:44 Blood Pressure 128/81 02/04/23 19:44 Pulse Oximetry 98 02/04/23 19:44 Oxygen Delivery Method Room Air 02/04/23 19:44 Temperature 97.2 F L 02/04/23 19:44 Pulse Rate 54 L 02/04/23 19:44 Respiratory Rate 16 02/04/23 19:44 Blood Pressure 128/81 02/04/23 19:44 Pulse Oximetry 98 02/04/23 19:44 Oxygen Delivery Method Room Air 02/04/23 19:44 Medical Decision Making Lab Data Labs: Lab Results 02/04/23 Range/Units 21:05 WBC 5.08 (4.50-11.00) K/uL RBC 3.85 L (4.00-5.20) m/uL Hgb 12.0 (12.0-16.0) gm/dL Hct 34.4 (33.0-51.0) % MCV 89 (80-100) fL MCH 31 (26-34) pg MCHC 35 (32-36) gm/dL RDW Coeff of Ad 13.1 (11.5-15.5) % Plt Count 210 (140-440) K/uL Neut % (Auto) 80.5 H (42.0-72.0) % Lymph % (Auto) 10.6 L (20-44) % [place] % (Auto) 8.7 (0.0-11.0) % Eos % (Auto) 0.0 (0.0-7.0) % Baso % (Auto) 0.0 (0.0-3.0) % Neut # (Auto) 4.10 (1.7-7.0) K/uL Lymph # (Auto) 0.50 L (0.90-2.90) K/uL [place] # (Auto) 0.40 (0.00-0.90) K/UL Eos # (Auto) 0.00 (0.00-0.50) K/uL Baso # (Auto) 0.00 (0.00-0.30) K/uL Sodium 122 L* (135-149) mmol/L Potassium 4.2 (3.6-5.1) mmol/L Chloride 93 L (96-114) mmol/L Carbon Dioxide 25 (20-32) mmol/L BUN 11 (7-30) mg/dL Creatinine 0.8 (0.5-1.5) mg/dL Estimated GFR 89 ml/min Glucose 99 (60-115) mg/dL Calcium 8.8 (8.4-10.6) mg/dL Total Bilirubin 0.7 (0.1-1.5) mg/dL Direct Bilirubin 0.1 (0.0-0.5) mg/dL AST 23 (12-35) U/L ALT 25 (4-35) U/L Alkaline Phosphatase 34 L (40-150) U/L C-Reactive Protein < 0.5 L (0.5-1.0) mg/dL Total Protein 5.9 L (6.0-8.3) g/dL Albumin 3.6 (3.3-5.0) g/dL Discharge Plan Discharge Clinical Impression: Astrocytoma, Headache, Acute hyponatremia Patient Disposition: Admitted As Observation Condition: Improved
[2023-02-04 21:12] LABS: Hematocrit 34.4 % (33.0-51.0); Immature Granulocytes Abs Auto 0.01 K/uL (0.00-0.30); Immature Granulocytes Pct Auto 0.2 %; Lymphocytes Percent Auto 10.6 % (20-44); Mean Corpuscular HGB Conc 35 gm/dL (32-36); Mean Corpuscular Hemoglobin 31 pg (26-34); Mean Corpuscular Volume 89 fL (80-100); Monocytes Percent Auto 8.7 % (0.0-11.0); Neutrophils Percent Auto 80.5 % (42.0-72.0); Platelet Count* 210 K/uL (140-440); RDW Coefficient of Variation % 13.1 % (11.5-15.5); Red Blood Count 3.85 m/uL (4.00-5.20); White Blood Count* 5.08 K/uL (4.50-11.00)
[2023-02-04] MEDS: 0.9 % SODIUM CHLORIDE 1000 ml 1,000 ML IV (21:12)
[2023-02-04 21:13] LABS: Slide Review Reflex No
[2023-02-04] MEDS: diphenhydrAMINE 50 MG/ML inj 25 MG IVP (21:23)
[2023-02-04] MEDS: ONDANSETRON 2 MG/ML inj 4 MG IVP (21:24)
[2023-02-04] MEDS: MORPHINE 4 MG/ML INJ IVP (21:24)
[2023-02-04 21:27] LABS: Albumin* 3.6 g/dL (3.3-5.0); Chloride* 93 mmol/L (96-114)
[2023-02-04 21:28] LABS: Potassium* 4.2 mmol/L (3.6-5.1)
[2023-02-04 21:30] LABS: Carbon Dioxide* 25 mmol/L (20-32); Creatinine* 0.8 mg/dL (0.5-1.5); Estimated Glomerular Filt Rate 89 ml/min
[2023-02-04 21:31] LABS: Alanine Aminotransferase* 25 U/L (4-35); Alkaline Phosphatase* 34 U/L (40-150); Aspartate Amino Transferase* 23 U/L (12-35); Bilirubin Direct* 0.1 mg/dL (0.0-0.5); Bilirubin Total* 0.7 mg/dL (0.1-1.5); Blood Urea Nitrogen* 11 mg/dL (7-30); Calcium* 8.8 mg/dL (8.4-10.6); Glucose* 99 mg/dL (60-115); Total Protein* 5.9 g/dL (6.0-8.3)
[2023-02-04 21:35] LABS: C Reactive Protein* < 0.5 mg/dL (0.5-1.0)
[2023-02-04 21:40] LABS: Sodium* 122 mmol/L (135-149)
[2023-02-04 23:44] VITALS: BP 118/66; PULSE 42; RESP 14; TEMP 37.2; O2SAT 96
[2023-02-05] MEDS: levETIRAcetam 500 MG TABLET 1000 MG PO ×2 (00:07→09:02)
[2023-02-05] MEDS: GABAPENTIN 300 MG CAPSULE PO (00:08)
--- NOTE | 2023-02-05 00:40 | P.IMHP_ITS ---
Hospitalist- H&P: HPI History of Present Illness Date Seen: 02/05/23 Chief complaint: Pain Narrative: Mia Cedillo is a 52 year old female with a history of glioblastoma who presented to the ED twice in the past 2 days for headaches, severe. No trauma. Decreased po intake, no nausea or vomiting. Patient is unable to provide me with any history; has both expressive and receptive aphasia. History gleaned from chart review and discussion with mother. CT performed during ER visit yesterday revealed a midline shift (new from previous imaging); Oncology has scheduled an MRI for tomorrow. She is on Dexamethasone 4mg BID and has oral Oxycodone at home, which was ineffective for pain control. ER Course and findings: - stable head CT - Sodium 122 - improvement in pain with IV Morphine Given patient's hyponatremia and pain management needs, she is admitted to the hospital. History updated below. PCP is Dr. Mohamud, follows with [facility]. Review of Systems Status of ROS: Reports: unobtainable due to mental status [facility] Medical History History of non anemic vitamin B12 deficiency ?Z86.39 - Personal history of other endocrine, nutritional and metabolic disease (ICD-10) History of thyroid nodule ?Z86.39 - Personal history of other endocrine, nutritional and metabolic disease (ICD-10) History of herniated intervertebral disc ?Z87.39 - Personal history of other diseases of the musculoskeletal system and connective tissue (ICD-10) GERD (gastroesophageal reflux disease) ?K21.9 - Gastro-esophageal reflux disease without esophagitis (ICD-10) Essential hypertension ?I10 - Essential (primary) hypertension (ICD-10) Astrocytoma brain tumor ?C71.9 - Malignant neoplasm of brain, unspecified (ICD-10) Cardiac murmur ?R01.1 - Cardiac murmur, unspecified (ICD-10) Cognitive deficits ?R41.89 - Other symptoms and signs involving cognitive functions and awareness (ICD-10) Surgical History History of tonsillectomy ?Z90.89 - Acquired absence of other organs (ICD-10) History of craniotomy ?Z98.890 - Other specified postprocedural states (ICD-10) Social History Narrative: Youngest child graduates from [employer] 01/14. Supportive mother, significant other. Smoking Status: Never smoker Do you use any of these nicotine containing products: None Second hand tobacco smoke exposure: No How often do you have a drink containing alcohol: never How often do you have six or more drinks on one occasion: Never AUDIT-C Alcohol total score: 0 Non-prescribed substance use: denies use Little interest or pleasure in doing things: several days Feeling down, depressed, or hopeless: nearly every day Meds Home Medications and Allergies Home Medications Medication Instructions Recorded Confirmed Type levetiracetam 1,000 mg tablet 1,000 mg PO BID 04/10/22 02/04/23 History ondansetron 4 mg disintegrating 8 mg PO .Once as needed PRN 04/10/22 02/04/23 History tablet sulfamethoxazole 400 1 tab PO QDAY 09/02/22 02/04/23 History mg-trimethoprim 80 mg tablet (Bactrim) dexamethasone 2 mg tablet 4 mg PO Q12H 09/30/22 02/04/23 History sennosides 8.6 mg capsule (senna) 8.6 mg PO QDAY PRN 11/11/22 02/04/23 History multivitamin (Daily Multi-Vitamin 1 tab PO .QOD 12/24/22 02/04/23 History tablet) acetaminophen 500 mg tablet 1,000 mg PO Q6H PRN 02/03/23 02/04/23 History calcium citrate 200 mg (950 mg) 200 mg PO DAILY 02/03/23 02/04/23 History tablet gabapentin 100 mg capsule 200 mg PO DAILY 02/03/23 02/04/23 History prochlorperazine maleate 10 mg 10 mg PO Q6H 02/03/23 02/04/23 History tablet (Compazine) regorafenib 40 mg tablet (Stivarga) PO 02/03/23 History zinc gluconate 50 mg tablet 50 mg PO DAILY 02/03/23 02/04/23 History bevacizumab .ROUTE 02/04/23 History Allergies Allergy/AdvReac Type Severity Reaction Status Date / Time adhesive Allergy Mild Verified 12/24/22 15:03 Milk Containing Products Allergy Mild Verified 02/03/23 19:12 (Dairy) Exam Narrative: Exam Narrative: Mia is lying in bed, answers I don't know when asked about pain and symptoms. She is able to ambulate without assistance. Cardiac exam reveals regular rate and rhythm, no concerning murmurs. She is breathing comfortably without wheezing, lungs are clear to auscultation. Const: Vital Signs, click to edit/add: Vital Signs - 24 hr 02/04/23 19:44 Temperature 97.2 F L Pulse Rate [Right Pulse Oximeter] 54 L Respiratory Rate 16 Blood Pressure [Le ft Upper Arm] 128/81 Pulse Oximetry 98 Oxygen Delivery Me thod Room Air Hospitalist - H&P: Result Labs Labs: Short CBC 02/04/23 Range/Units 21:05 WBC 5.08 (4.50-11.00) K/uL Hgb 12.0 (12.0-16.0) gm/dL Hct 34.4 (33.0-51.0) % Plt Count 210 (140-440) K/uL BMP 02/04/23 21:05 Sodium 122 L* Potassium 4.2 Chloride 93 L Carbon Dioxide 25 BUN 11 Creatinine 0.8 Glucose 99 Calcium 8.8 Liver Function 02/04/23 Range/Units 21:05 Total Bilirubin 0.7 (0.1-1.5) mg/dL Direct Bilirubin 0.1 (0.0-0.5) mg/dL AST 23 (12-35) U/L ALT 25 (4-35) U/L Alkaline Phosphatase 34 L (40-150) U/L Albumin 3.6 (3.3-5.0) g/dL Assessment and Plan Assessment and plan (1) Acute hyponatremia: Problem comment: - likely related to decreased po intake, acute illness - low dose IV NS, follow sodium closely Status: Acute (2) Headache: Problem comment: - prn pain medications, MRI 02/05 Status: Acute (3) Glioblastoma of temporal lobe: Problem comment: - left temporoparietal stereotactic craniotomy with tumor resection 01/10/2022 demonstrated GBM, 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 with mom, increase services at home
[2023-02-05] MEDS: PROCHLORPERAZINE 10 MG TABLET PO ×4 (00:55→17:44)
[2023-02-05] MEDS: dexAMETHasone 2 MG TABLET 4 MG PO ×2 (00:55→11:53)
[2023-02-05] MEDS: 0.9 % SODIUM CHLORIDE 1000 ml 1,000 ML 125 ML IV ×2 (00:56→07:36)
[2023-02-05] MEDS: MORPHINE 4 MG/ML INJ IVP (02:16)
[2023-02-05 02:35] VITALS: BP 139/85; PULSE 43; RESP 14; TEMP 36.5; O2SAT 97
[2023-02-05 02:43] LABS: Sodium* 124 mmol/L (135-149)
--- NOTE | 2023-02-05 06:40 | PC.NURSE ---
Pt was lethargic and drowsy on admission @ 2340 02/04/23 and has been throughout shift [id number]. Pt has difficulties finding words with expressive and receptive aphasia, is soft spoken, and at times mumbles. Afebrile.?Pt reports pain via head nod?when asked if she is in pain but cannot rate pain or describe location but pt presents with grimaces, restlessness and moans when awoken and at times during sleep, pain was managed with PRN medications. Pt reported feeling nauseous, anti-nausea medication offered pt refused but accepted emesis bag, pt did not vomit during shift. Pt is up A1/SBA with IV pole and gait belt. Pt tolerating a regular diet, and voiding. Pt slept most of night.???
[2023-02-05 07:33] VITALS: BP 101/59; PULSE 45; RESP 16; TEMP 37.6; O2SAT 96
[2023-02-05 07:48] LABS: Chloride* 101 mmol/L (96-114); Potassium* 3.9 mmol/L (3.6-5.1); Sodium* 130 mmol/L (135-149)
[2023-02-05 07:51] LABS: Blood Urea Nitrogen* 11 mg/dL (7-30); Carbon Dioxide* 24 mmol/L (20-32); Creatinine* 0.9 mg/dL (0.5-1.5); Estimated Glomerular Filt Rate 77 ml/min; Glucose* 91 mg/dL (60-115)
--- NOTE | 2023-02-05 08:58 | CRLHL7_ITS ---
For Patients: As a result of the Century Cures Act, medical imaging exams and procedure reports are released immediately into your electronic medical record. You may view this report before your referring provider. If you have questions, please contact your health care provider. INDICATION: Glioblastoma. Headache. TECHNIQUE: Multiplanar multisequence MR imaging acquired through the brain prior to and following intravenous contrast. COMPARISON: CT brain 02/04/2023, MRI brain 11/22/2021. FINDINGS: Postsurgical changes of left temporoparietal craniotomy with resection cavity in the lateral left temporal lobe. Large, heterogeneously enhancing lesion within the left parietal, temporal and occipital lobes has significantly increased in size compared to the prior MRI measuring approximately 6.8 x 5.8 x 8.1 cm (AP/TR/CC oblique). The lesion demonstrates heterogeneous diffusion restriction, as well as scattered areas of internal susceptibility secondary to hemorrhage and/or calcification. Significantly increased lesion extension within the corpus callosum splenium to slightly across midline. There is worsening moderately extensive perilesional FLAIR hyperintensity/edema. Enlarging nodular enhancement within the central left thalamus and increased FLAIR signal abnormality extending into the posterior left basal ganglia, left cerebral peduncle, and left midbrain. Mass effect results in worsening severe effacement of the left temporal and occipital horns, as well as partial effacement of the left ventricular atrium. There is worsening 7 mm rightward midline shift. No diffusion restriction to suggest acute infarction. Scattered FLAIR hyperintensities in the supratentorial white matter, typical for mild chronic microvascular ischemic changes. The major arterial flow voids of the skullbase are preserved. The globes are symmetric. The paranasal sinuses are well aerated. The mastoid air cells are clear. IMPRESSION: Large, heterogeneously enhancing lesion within the left parietal, temporal, and occipital lobes with extension across midline via the corpus callosum splenium has significantly increased in size compared to the MRI dated 11/22/2022. There is worsening perilesional edema and 7 mm rightward midline shift. Findings are concerning for tumor progression. Perfusion imaging may be useful for further evaluation. Dictated by Kurt Willard MD @ 02/05/2023 6:55:51 PM (Electronically Signed)
[2023-02-05] MEDS: GABAPENTIN 100 MG CAPSULE 200 MG PO (09:02)
[2023-02-05] MEDS: 5 % DEXTROSE 1000 ML 1,000 ML 50 ML IV (09:46)
--- NOTE | 2023-02-05 09:58 | P.IMPN_ITS ---
Progress Note: A&P Assessment and plan (1) Acute hyponatremia: Problem details: - likely related to decreased po intake, acute illness, brain malignancy - sodium with mild overcorrection 02/05 am, transition to D5W with continued close monitoring - urinary sodium pending Status: Acute (2) Headache: Problem details: - prn pain medications, MRI ordered to be completed 02/05 - concerning as possibly related to disease progression - [facility] aware of patient's admission, may need transfer. 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 Received Morphine overnight for pain. Her sodium slowly increased appropriately with initial recheck (122 --> 124 in 5 hours), 130 this morning. She has an MRI scheduled for this afternoon. Exam Narrative: Exam Narrative: GEN: Awake but sleepy, intermittently answering questions appropriately HEENT: EOMIs bilaterally, no scleral icterus CV: Sinus bradycardia R: LCTA bilaterally without concerning wheezing, air movement adequate Ext: No concerning edema Skin: No concerning skin lesions or rashes on exposed skin Neuro: Antalgic gait, no resting tremor. Intermittent expressive and receptive aphasia Const: Vital Signs, click to edit/add: Vital Signs - 24 hr 02/04/23 19:44 02/04/23 23:44 02/05/23 02:35 Temperature 97.2 F L 98.9 F 97.7 F Pulse Rate [Pulse Oximeter] 42 L 43 L Pulse Rate [Right Pulse Oximeter] 54 L Respiratory Rate 16 14 14 Blood Pressure [Le ft Arm] Blood Pressure [Le ft Upper Arm] 128/81 Blood Pressure [Ri ght Arm] 118/66 139/85 Pulse Oximetry 98 96 97 Oxygen Delivery Me thod Room Air Room Air Room Air 02/05/23 07:33 Temperature 99.6 F Pulse Rate [Pulse Oximeter] 45 L Pulse Rate [Right Pulse Oximeter] Respiratory Rate 16 Blood Pressure [Le ft Arm] 101/59 L Blood Pressure [Le ft Upper Arm] Blood Pressure [Ri ght Arm] Pulse Oximetry 96 Oxygen Delivery Me thod Room Air Labs Labs: Laboratory Results - last 24 hr 02/04/23 02/05/23 02/05/23 21:05 02:05 06:40 WBC 5.08 RBC 3.85 L Hgb 12.0 Hct 34.4 MCV 89 MCH 31 MCHC 35 RDW Coeff of Ad 13.1 Plt Count 210 Neut % (Auto) 80.5 H Lymph % (Auto) 10.6 L [place] % (Auto) 8.7 Eos % (Auto) 0.0 Baso % (Auto) 0.0 Neut # (Auto) 4.10 Lymph # (Auto) 0.50 L [place] # (Auto) 0.40 Eos # (Auto) 0.00 Baso # (Auto) 0.00 Sodium 122 L* 124 L* 130 L Potassium 4.2 3.9 Chloride 93 L 101 Carbon Dioxide 25 24 BUN 11 11 Creatinine 0.8 0.9 Estimated GFR 89 77 Glucose 99 91 Calcium 8.8 9.0 Total Bilirubin 0.7 Direct Bilirubin 0.1 AST 23 ALT 25 Alkaline Phosphatase 34 L C-Reactive Protein < 0.5 L Total Protein 5.9 L Albumin 3.6
[2023-02-05 11:42] LABS: Thyroid Stimulating Hormone* 0.145 uIU/mL (0.270-4.20)
--- NOTE | 2023-02-05 11:45 | REH.PT ---
Physical Therapy and Occupational Therapy--cancel for today 02/05 per physician recommendation. Will attempt again tomorrow.
[2023-02-05 11:50] VITALS: BP 121/81; PULSE 44; RESP 16; TEMP 37.1; O2SAT 96
[2023-02-05 12:34] LABS: Sodium* 132 mmol/L (135-149)
[2023-02-05] MEDS: ACETAMINOPHEN 325 MG TABLET 975 MG PO (12:40)
[2023-02-05 15:58] VITALS: BP 106/71; PULSE 45; RESP 16; TEMP 37; O2SAT 97
--- NOTE | 2023-02-05 17:57 | P.CCN_ITS ---
Subjective Subjective Interval history: I was asked by colleague to follow up with MRI Brain I reviewed the MRI Brain with [facility] per oncology team MRI is concerning for progression of tumor although interpertation is tricky in context of recent radiation The patient would like to transfer to [place] but her mother would like her to stay in [place] for avastin infusion [facility]ospice given poor prognosis; I shared this information with patient and her mother Her mother is clearly frustrated I recommend that future interactions include bedside RN, live hanger and providers Will have patient advocate and social security specialist follow up tomorrow if patient decides to stay in [place] I have recommended transfer to [place] In review of chart patient sodium has over-corrected patient on D5W will check a sodium addendum: IVF increased to 100cc D5W addendum #2: Patient/Mother agreeable to transfer to [facility]
[2023-02-05 18:32] LABS: Sodium* 132 mmol/L (135-149)
[2023-02-05 19:24] VITALS: BP 110/84; PULSE 69; RESP 18; TEMP 36.9; O2SAT 95
[2023-02-05 21:00] VITALS: BP 110/64; PULSE 64; RESP 18; TEMP 36.9
--- NOTE | 2023-02-05 21:13 | PC.NURSE ---
Patient transfer to [facility] via EMS at 2030. Patient belongings sheet signed by Libby, patient's mother. Receiving hospital information given to Libby including room number and unit phone number [phone]. Patient d/c'd IV herself, catheter intact. Patient denied SOB, nausea, pain and appeared comfortable.
[2023-02-08 22:12] LABS: Hours Collected Random hr; Total Volume Random mL
== END 2023-02-05 20:30 | disposition short-term general hospital (02) | DRG 55 ==
LOC: ED 20:45 → MEDSURG 23:27
PROVIDERS: Hospitalist; Admitting Provider Family Medicine; Emergency Provider Emergency Medicine; PCP Family Medicine; Visit Provider Family Medicine
DX: C71.2 Malignant neoplasm of temporal lobe (principal); E87.1 Hypo-osmolality and hyponatremia; R51.9 Headache, unspecified; F80.2 Mixed receptive-expressive language disorder; I10 Essential (primary) hypertension; K21.9 Gastro-esophageal reflux disease without esophagitis
CPT/HCPCS: 36415; 70450; 70553; 80048; 80076; 84295; 84300; 84443; 85025; 86140; 99284; A9270; A9575; G0378; J1200; J2270; J2405; J7030; J7070

== ENCOUNTER 2023-02-05 20:22 | Outpatient (CLI) | payer MEDICAID, SELFPAY | END 2023-02-05 20:23 | disposition home or self-care (01) | LOC: AMB 02-10 09:57 | PROVIDERS: PCP Family Medicine; Visit Provider Family Medicine | DX: D49.6 Neoplasm of unspecified behavior of brain (principal) | CPT/HCPCS: A0425; A0428 ==

== ENCOUNTER 2023-03-06 08:45 | Outpatient (CLI) | payer MEDICAID, SELFPAY | END 2023-03-06 08:46 | disposition home or self-care (01) | LOC: AMB 03-07 09:22 | PROVIDERS: PCP Family Medicine; Visit Provider Internal Medicine | DX: R53.1 Weakness (principal) | CPT/HCPCS: A0425; A0428 ==